=== PATIENT | female | born 1955 | race Caucasian/White ===

== ENCOUNTER 2016-07-31 17:03 | Inpatient (IN) | payer OTHER ==
[2016-07-31 17:09] VITALS: BMI 28.3
[2016-07-31] MEDS ORDERED: ALBUTEROL SO4 2.5/IPRATROPIUM 0.5 INH SOL 3 ML VIAL.NEB. NEB ONE ×2 (17:13→17:45)
--- NOTE | 2016-07-31 17:16 | PDOC ---
History of Present Illness - General History Source: Patient - History of Present Illness Initial Comments: 07/31/16 18:57 The patient is a 61 year old female with a significant past medical history of HTN, HLD, COPD, ASHD s/p [place], PVD, HBP, who presents to the Emergency Department with complaints of increased SOB since yesterday. She reports experiencing worsening productive cough since yesterday. She reports chest pain secondary to cough. She states that she received 5 nebulizer treatments today without significant improvement. Pt reports 102 fever last night. She denies abdominal pain, nausea, vomiting, diarrhea, dysuria, hematuria, headache, dizziness. (+)sick contact: Senior Analytic Consultant : Dr. Berrios PCP: Dr. Casi Cohn <Filomena Kelly - Last Filed: 07/31/16 18:57> <Dalton Holden - Last Filed: 08/03/16 11:09> - General Chief Complaint: Shortness of Breath Stated Complaint: SOB Time Seen by Provider: 07/31/16 17:15 Past History <Filomena Kelly - Last Filed: 07/31/16 18:57> - Past Medical History Anemia: No Asthma: Yes Cardiac Disorders: Yes (MS X 2) COPD: Yes GI Disorders: Yes (HERNIA) HTN: Yes Hypercholesterolemia: Yes - Surgical History Abdominal Surgery: Yes Cardiac Surgery: Yes (Angioplasty, Carotid Artery) Cholecystectomy: Yes - Immunization History Immunization Up to Date: Yes (no flu or pna) - Psycho/Social/Smoking Cessation Hx Anxiety: No Suicidal Ideation: No Smoking Status: Yes Smoking History: Former smoker Have you smoked in the past 12 months: Yes Number of Cigarettes Smoked Daily: 10 If you are a former smoker, when did you quit?: 1 week ago Information on smoking cessation initiated: No 'Breaking Loose' booklet given: 12/20/12 Hx Alcohol Use: No Drug/Substance Use Hx: No Substance Use Type: None Hx Substance Use Treatment: No <Dalton Holden - Last Filed: 08/03/16 11:09> - Past Medical History Allergies/Adverse Reactions: Allergies Allergy/AdvReac Type Severity Reaction Status Date / Time No Known Drug Allergies Allergy Verified 07/31/16 17:03 Home Medications: Ambulatory Orders Albuterol 2.5/Ipratropium 0.5 [Duoneb -] 1 neb NEB Q4H PRN #0 vial 12/27/12 Aspirin [ASA -] 81 mg PO DAILY #0 tab.chew 12/27/12 Atorvastatin Calcium [Lipitor] 80 mg PO HS #0 tablet 12/27/12 Clopidogrel Bisulfate [Plavix -] 75 mg PO DAILY #0 tablet 12/27/12 Folic Acid - 1 mg PO DAILY #0 tablet 12/27/12 Furosemide [Lasix -] 20 mg PO DAILY #0 tablet 12/27/12 Isosorbide Mononitrate [Imdur] 30 mg PO BID #0 tab.sr.24h 12/27/12 Montelukast Na [Singulair -] 10 mg PO HS #0 tablet 12/27/12 Ranitidine [Zantac -] 150 mg PO DAILY #0 tablet 12/27/12 Tiotropium [place] [Spiriva] 1 inh IH DAILY #0 inh 12/27/12 Verapamil HCl ER [Calan Sr -] 180 mg PO BID #0 tablet.er 12/27/12 Fluticasone Prop 0.05% Nasal [Flonase -] 1 - 2 spray NS BID #1 spray.pump Acetaminophen [Tylenol .Regular Strength -] 650 mg PO Q6H PRN #0 tablet Mag Hydrox/Al Hydrox/Simeth [Mylanta Oral Suspension -] 30 ml PO Q6H PRN #0 cup 04/16/15 Sodium Chloride Nasal [place] [[place] Nasal [place] -] 2 spray NS Q2H PRN #0 bottle 04/16/15 Nystatin Oral Suspension - [Nystatin Oral Susp 560861 Units/5 ML -] 500,000 units PO Q6HPO 14 Days 04/17/15 Review of Systems - Review of Systems Able to Perform ROS?: Yes Comments:: 07/31/16 18:58 CONSTITUTIONAL: No reported: Fever, Chills, Diaphoresis, Generalized Weakness, Malaise, Loss of Appetite HEENT: No reported: Rhinorrhea, Nasal Congestion, Throat Pain, Throat Swelling, Difficulty Swallowing, Mouth Swelling, Ear Pain, Eye Pain, Visual Changes CARDIOVASCULAR: Yes: chest pain No reported: Syncope, Palpitations, Irregular Heart Rate, Lightheadedness, Peripheral Edema RESPIRATORY: Yes: cough, SOB No reported:Wheezing, Stridor, Hemoptysis GASTROINTESTINAL: No reported: Abdominal pain, Abdominal Distension, Nausea, Vomiting, Diarrhea, Constipation, Melena, Hematochezia GENITOURINARY: No reported: Dysuria, Frequency, Urgency, Hesitancy, Flank Pain, Genital Pain MUSCULOSKELETAL: No reported: Myalgia, Arthralgia, Joint Swelling, Back pain, Neck Pain SKIN: No reported: Rash, Itching, Pallor HEMEATOLOGIC/IMMUNOLOGIC: No reported: Easy Bleeding, Easy Bruising, Lymphadenopathy, Frequent infections ENDOCRINE: No reported: Unexplained Weight Gain, Unexplained Weight Loss, Heat Intolerance , Cold Intolerance NEUROLOGIC: No reported: Headache, Focal Weakness, Paresthesias, Vertigo, Lightheadedness, Unsteady Gait, Seizure, Mental Status Changes, Incontinence PSYCHIATRIC: No reported: Anxiety, Depression All Other Systems: Reviewed and Negative <Filomena Kelly - Last Filed: 07/31/16 18:57> *Physical Exam - Vital Signs Last Vital Signs Temp Pulse Resp BP Pulse Ox 99 F 117 H 28 H 127/77 94 L 07/31/16 17:05 07/31/16 17:05 07/31/16 17:05 07/31/16 17:05 07/31/16 17:05 - Physical Exam Comments: 07/31/16 18:58 GENERAL: The patient is awake, alert, and fully oriented, Nontoxic - in no acute distress. HEAD: Normocephalic, atraumatic. EYES: extraocular movements intact, sclera anicteric, conjunctiva clear. ENT: +nasal congestion, normal voice, Moist mucous membranes. NECK: Normal range of motion, supple LUNGS: diffuse wheezing, moderately decreased air movement, mildly tachypneic, HEART: tachycardic, ABDOMEN: Soft, nontender, normoactive bowel sounds. No guarding, no rebound. No CVA tenderness EXTREMITIES: Normal range of motion, no edema. No clubbing or cyanosis. No cords, erythema, or tenderness. NEUROLOGICAL: No facial assymetry, Normal speech, PSYCH: Normal mood, normal affect. SKIN: Warm, Dry, normal turgor, <Filomena Kelly - Last Filed: 07/31/16 18:57> - Vital Signs Last Vital Signs Temp Pulse Resp BP Pulse Ox 99 F 117 H 28 H 127/77 94 L 07/31/16 17:05 07/31/16 17:05 07/31/16 17:05 07/31/16 17:05 07/31/16 17:05 <Dalton Holden - Last Filed: 08/03/16 11:09> Heart Score/ECG Review - ECG Impressions Comment:: 07/31/16 19:23 Twelve-lead EKG was performed and reviewed by me. There is normal sinus rhythm with a normal rate. Rate of 102 CA interval of 212 - first degree AV block Nonspecific ST wave changes Impression: Sinus tachycardia <Dalton Holden - Last Filed: 08/03/16 11:09> ED Treatment Course - LABORATORY CBC & Chemistry Diagram: 07/31/16 18:23 07/31/16 18:23 - ADDITIONAL ORDERS Additional order review: 07/31/16 18:23 RBC 4.91 MCV 85.2 MCHC 33.0 RDW 15.9 H D MPV 7.1 L Neutrophils % 83.0 H Lymphocytes % 8.6 D Monocytes % 7.2 D Eosinophils % 0.7 D Basophils % 0.5 - Medications Given in the ED: ED Medications Discontinued Medications Generic Name Dose Route Start Last Admin Trade Name Freq PRN Reason Stop Dose Admin Albuterol/Ipratropium 1 amp 07/31/16 17:13 07/31/16 17:13 Duoneb - NEB 07/31/16 17:14 1 amp NOW ONE Administration Albuterol/Ipratropium 1 amp 07/31/16 17:45 07/31/16 18:42 Duoneb - NEB 07/31/16 17:46 1 amp ONCE ONE Administration Magnesium Sulfate 2 gm 07/31/16 17:45 07/31/16 18:42 Magnesium Sulfate IVPB 07/31/16 17:46 2 gm ONCE ONE Administration Methylprednisolone Sodium Succinate 125 mg 07/31/16 17:45 07/31/16 18:42 Solu-Medrol - IVPB 07/31/16 17:46 125 mg ONCE ONE Administration <Filomena Kelly - Last Filed: 07/31/16 18:57> - LABORATORY CBC & Chemistry Diagram: 08/03/16 06:00 08/03/16 06:00 - Medications Given in the ED: ED Medications Discontinued Medications Generic Name Dose Route Start Last Admin Trade Name Freq PRN Reason Stop Dose Admin Albuterol/Ipratropium 1 amp 07/31/16 17:13 07/31/16 17:13 Duoneb - NEB 07/31/16 17:14 1 amp NOW ONE Administration <Dalton Holden - Last Filed: 08/03/16 11:09> Medical Decision Making - Medical Decision Making 07/31/16 17:47 61y F hx of copd, mi, htn, hl, presents with cough/sob x 2 days associated with nasal congestion, using nebs at home w/o improvement, asl onoted fever to 102.+ sick contacts - on exam the pt is tachypneic, hypoxic to 90% with mild wheezing. suspect possible influenza/uri/viral syndrom exacerbating copd will ck labs, influenza, cxr will give nebs, steroids, mag will reasssess A portion of this note was documented by scribe services under my direction. I have reviewed the details of the note, within reason, and agree with the documentation with the following case summary and management plan written by me 07/31/16 19:33 The patient's blood work was reviewed No leukocytosis noted chest x-ray is negative for acute infection Awaiting influenza The patient appears to be more comfortable. Will admit the patient for further management of COPD exacerbation Will admit to Dr. Gama's service 07/31/16 19:45 Case d/w dr. cohn agreed with admission for further management. awaiting finfluenza swab stable for med surg Case discussed in detail with admitting physician including history, physical exam and ancillary studies. Admitting physician has assumed care for the patient, will follow all pending diagnostics and will complete the evaluation and treatment. CRITICAL CARE DOCUMENTATION: I spent ~35 minutes of Critical Care time, excluding separately billable procedures, involving high complexity decision making to assess, manipulate and support vital system function(s) to treat single or multiple vital organ system failure and/or to prevent further life threatening deterioration of the patient' s condition. <Dalton Holden - Last Filed: 08/03/16 11:09> *DC/Admit/Observation/Transfer - Attestations Scribe Attestion: 07/31/16 18:58 Documentation prepared by Filomena Kelly, acting as medical education manager for Dalton Holden MD. <Filomena Kelly - Last Filed: 07/31/16 18:57> - Discharge Dispostion Admit: Yes <Dalton Holden - Last Filed: 08/03/16 11:09> Diagnosis at time of Disposition: COPD exacerbation, Hypoxia - Discharge Dispostion Condition at time of disposition: Guarded - Referrals
[2016-07-31] MEDS ORDERED: MAGNESIUM SULF 50% (8.12 MEQ/2 ML-1 GM VIAL) IVPB ONE (17:45)
[2016-07-31] MEDS ORDERED: methylPREDNISolone NA SUCC 125 MG/2 ML VIAL IVPB ONE (17:45)
[2016-07-31] MEDS ORDERED: MAGNESIUM SULF 50% (8.12 MEQ/2 ML-1 GM VIAL) ONE (18:29)
[2016-07-31] MEDS ORDERED: methylPREDNISolone NA SUCC 125 MG/2 ML VIAL ONE (18:29)
[2016-07-31 18:39] LABS: BASOPHIL 0.5 % (0-2.0); EOSINOPHIL 0.7 % (0-4.5); MCH 28.1 pg (25.7-33.7); MEAN CELL VOLUME 85.2 fl (80-96); MEAN PLT VOLUME 7.1 fl (7.5-11.1); PLATELET COUNT 319 K/MM3 (134-434); RDW 15.9 % (11.6-15.6); WHITE BLOOD COUNT 8.4 K/mm3 (4.0-10.0)
[2016-07-31 19:04] LABS: ALBUMIN 4.4 g/dl (3.4-5.0); ALK PHOS 153 U/L (45-117); ANION GAP 11 (8-16); BILIRUBIN,TOTAL 0.5 mg/dL (0.2-1.0); CO2 32 mmol/L (21-32); CREATININE 0.7 mg/dL (0.55-1.02); GLUCOSE,RANDOM 94 mg/dL (74-106); SGPT/ALT 26 U/L (12-78); TOT PROT 8.2 g/dl (6.4-8.2)
[2016-07-31 19:29] LABS: SGOT/AST 26 U/L (15-37)
[2016-07-31] MEDS ORDERED: AZITHROMYCIN IVPB 500 MG in DEXTROSE 5%-WATER - 250 ML IVPB ONE (19:45)
[2016-07-31] MEDS ORDERED: POTASSIUM CHLORIDE TABS 20 MEQ TABLET.ER (FP) PO ONE ×2 (20:40→21:09)
[2016-07-31] MEDS ORDERED: AZITHROMYCIN IVPB 250 ML IVPB ONE (21:09)
[2016-07-31] MEDS ORDERED: RACEPINEPHRINE IH SOL 2.25% 11.25 MG/0.5 ML VIAL IH ONE (21:09)
[2016-07-31] MEDS ORDERED: SODIUM CHLORIDE FOR INHALATION 3 ML VIAL.NEB IH ONE (21:10)
[2016-07-31] MEDS ORDERED: RACEPINEPHRINE IH SOL 2.25% 11.25 MG/0.5 ML VIAL NEB ONE (21:18)
[2016-07-31] MEDS ORDERED: ACETAMINOPHEN 325 MG TABLET (FP) PO PRN (23:55)
[2016-07-31] MEDS ORDERED: SODIUM CHLORIDE NASAL SPRAY 44 ML BOTTLE NS PRN (23:56)
[2016-08-01] MEDS: ALBUTEROL SO4 0.083% IH SOL 2.5 MG/3 ML VIAL.NEB. NEB PRN ×3 (01:00→19:42)
[2016-08-01] MEDS: MONTELUKAST NA 10 MG TABLET PO SCH ×2 (01:13→22:19)
[2016-08-01] MEDS: ATORVASTATIN CA 80 MG TABLET (FP) PO SCH ×2 (01:13→22:19)
[2016-08-01] MEDS: ISOSORBIDE MONONITRATE 30 MG TAB.SR.24H (FP) PO SCH ×3 (01:14→22:19)
[2016-08-01] MEDS: VERAPAMIL HCL 180 MG E.R. TABLET (FP) PO SCH ×2 (01:24→09:35)
[2016-08-01] MEDS: methylPREDNISolone NA SUCC 40 MG/1 ML VIAL IVPB SCH ×4 (03:00→21:20)
[2016-08-01] MEDS ORDERED: PT OWN MED DRAWER 7, Y5N ONE ×4 (06:17→14:19)
[2016-08-01 07:45] LABS: BASOPHIL 0.4 % (0-2.0); EOSINOPHIL 0.1 % (0-4.5); MCH 28.9 pg (25.7-33.7); MCHC 33.8 g/dl (32.0-36.0); MEAN CELL VOLUME 85.5 fl (80-96); MEAN PLT VOLUME 7.4 fl (7.5-11.1); NEUTROPHILS 90.9 % (42.8-82.8); RDW 15.7 % (11.6-15.6)
[2016-08-01 08:07] LABS: ALBUMIN 3.5 g/dl (3.4-5.0); ALK PHOS 116 U/L (45-117); ANION GAP 6 (8-16); BILIRUBIN,TOTAL 0.3 mg/dL (0.2-1.0); CALCIUM 8.9 mg/dL (8.5-10.1); CO2 29 mmol/L (21-32); CREATININE 0.6 mg/dL (0.55-1.02); GLUCOSE,RANDOM 145 mg/dL (74-106); SGPT/ALT 23 U/L (12-78); TOT PROT 6.5 g/dl (6.4-8.2)
[2016-08-01] MEDS ORDERED: INFLUENZA VACCINE 45 MCG/0.5 ML (MDV 16-17) IM ONE (09:00)
[2016-08-01 09:10] LABS: SGOT/AST 24 U/L (15-37)
[2016-08-01] MEDS: ASPIRIN 81 MG CHEWABLE TABLETS PO SCH (09:34)
[2016-08-01] MEDS: ACLIDINIUM BROMIDE 400 MCG/INH AERO.POWD IH SCH ×2 (09:35→22:21)
[2016-08-01] MEDS: CLOPIDOGREL BISULFATE 75 MG TABLET (FP) PO SCH (09:35)
[2016-08-01] MEDS: HEPARIN NA (PORCINE) 5,000 UNITS/ML 1ML VIAL SQ SCH ×2 (09:35→22:21)
[2016-08-01] MEDS: FOLIC ACID 1 MG TABLET (FP) PO SCH (09:35)
[2016-08-01] MEDS: FUROSEMIDE 20 MG TABLET (FP) PO SCH (09:35)
[2016-08-01] MEDS: AZITHROMYCIN IVPB 250 ML IVPB SCH (09:36)
[2016-08-01] MEDS ORDERED: VERAPAMIL HCL 180 MG E.R. TABLET (FP) PO SCH (10:00)
[2016-08-01] MEDS ORDERED: RANITIDINE HCL 150 MG TABLET (FP) PO SCH (10:00)
[2016-08-01] MEDS ORDERED: ISOSORBIDE MONONITRATE 30 MG TAB.SR.24H (FP) PO SCH ×2 (10:00)
--- NOTE | 2016-08-01 10:29 | EKG ---
Test Reason : Blood Pressure : / mmHG Vent. Rate : 102 BPM Atrial Rate : 102 BPM P-R Int : 214 ms QRS Dur : 086 ms QT Int : 356 ms P-R-T Axes : 070 060 031 degrees QTc Int : 463 ms POOR DATA QUALITY, INTERPRETATION MAY BE ADVERSELY AFFECTED SINUS TACHYCARDIA WITH 1ST DEGREE A-V BLOCK POSSIBLE LEFT ATRIAL ENLARGEMENT CANNOT RULE OUT INFERIOR INFARCT , AGE UNDETERMINED ABNORMAL ECG WHEN COMPARED WITH ECG OF 09-APR-2015 16:25, NM INTERVAL HAS INCREASED NONSPECIFIC T WAVE ABNORMALITY NOW EVIDENT IN INFERIOR LEADS NONSPECIFIC T WAVE ABNORMALITY, WORSE IN ANTEROLATERAL LEADS Confirmed by LAINE SEWELL MD ([id number]) on 08/01/2016 10:29:17 AM Referred By: Confirmed By:LAINE SEWELL MD
[2016-08-01 11:51] LABS: PLATELET COMMENT2 NO CLOTTING DETECTED; PLATELET COUNT 251 K/MM3 (134-434); PLATELET ESTIMATE ADEQUATE (NORMAL)
[2016-08-01] MEDS: CEFTRIAXONE 50 ML IVPB SCH (12:38)
--- NOTE | 2016-08-01 19:05 | HP ---
Admitting History and Physical - Primary Care Physician PCP: Casi Cohn S - Admission Chief Complaint: SOB cough History of Present Illness: The patient is a 61 year old female with a significant past medical history of HTN, HLD, COPD, ASHD s/p [place], PVD, HBP, who presents to the Emergency Department with complaints of increased SOB since yesterday. She reports experiencing worsening productive cough since yesterday. She reports chest pain secondary to cough. She states that she received 5 nebulizer treatment without significant improvement. Pt reports 102 fever before admission. She denies abdominal pain, nausea, vomiting, diarrhea, dysuria, hematuria, headache, dizziness. h/o heavy smoking said she stopped recently h/o noncompliance with visits and tests, did not see cardiology or other specialists in a long time. no flu shot done. History Source: Patient, Medical Record Limitations to Obtaining History: No Limitations - Past Medical History Cardiovascular: Yes: CAD, HTN, Other (carotid ds) Pulmonary: Yes: COPD Gastrointestinal: Yes: Other (Mesenteric ischemia treated with SMA bypass 3 years ago.) Psych: Yes: Anxiety, Depression - Past Surgical History Past Surgical History: Yes: Carotid Endarterectomy - Smoking History Smoking history: Former smoker Have you smoked in the past 12 months: Yes Aproximately how many cigarettes per day: 10 If you are a former smoker, when did you quit?: 1 week ago - Alcohol/Substance Use Hx Alcohol Use: No History of Substance Use: reports: None - Social History Usual Living Arrangement: Yes: With Spouse ADL: Independent History of Recent Travel: No Home Medications - Allergies Allergies/Adverse Reactions: Allergies Allergy/AdvReac Type Severity Reaction Status Date / Time No Known Drug Allergies Allergy Verified 07/31/16 17:03 - Home Medications Home Medications: Ambulatory Orders Albuterol 2.5/Ipratropium 0.5 [Duoneb -] 1 neb NEB Q4H PRN #0 vial 12/27/12 Aspirin [ASA -] 81 mg PO DAILY #0 tab.chew 12/27/12 Atorvastatin Calcium [Lipitor] 80 mg PO HS #0 tablet 12/27/12 Clopidogrel Bisulfate [Plavix -] 75 mg PO DAILY #0 tablet 12/27/12 Folic Acid - 1 mg PO DAILY #0 tablet 12/27/12 Furosemide [Lasix -] 20 mg PO DAILY #0 tablet 12/27/12 Isosorbide Mononitrate [Imdur] 30 mg PO BID #0 tab.sr.24h 12/27/12 Montelukast Na [Singulair -] 10 mg PO HS #0 tablet 12/27/12 Ranitidine [Zantac -] 150 mg PO DAILY #0 tablet 12/27/12 Tiotropium [place] [Spiriva] 1 inh IH DAILY #0 inh 12/27/12 Verapamil HCl ER [Calan Sr -] 180 mg PO BID #0 tablet.er 12/27/12 Fluticasone Prop 0.05% Nasal [Flonase -] 1 - 2 spray NS BID #1 spray.pump Acetaminophen [Tylenol .Regular Strength -] 650 mg PO Q6H PRN #0 tablet Mag Hydrox/Al Hydrox/Simeth [Mylanta Oral Suspension -] 30 ml PO Q6H PRN #0 cup 04/16/15 Sodium Chloride Nasal [place] [[place] Nasal [place] -] 2 spray NS Q2H PRN #0 bottle 04/16/15 Nystatin Oral Suspension - [Nystatin Oral Susp 650530 Units/5 ML -] 500,000 units PO Q6HPO 14 Days 04/17/15 Family Disease History - Family Disease History Family Disease History: Heart Disease: Father, Mother, Brother Review of Systems - Review of Systems Constitutional: denies: Chills, Fever Eyes: denies: Blind Spots, Blurred Vision, Double Vision HENT: denies: Difficult Swallowing, Ear Pain Neck: denies: Stiffness, Tenderness Cardiovascular: reports: Shortness of Breath. denies: Chest Pain, Edema, Palpitations Respiratory: reports: Cough, Exercise Intolerance, SOB, SOB on Exertion, Wheezing. denies: Hemoptysis, Orthopnea, PND, Snoring Gastrointestinal: denies: Abdominal Pain, Bloating, Constipation, Diarrhea, Vomiting Genitourinary: denies: Burning, Discharge, Dysuria, Flank Pain Musculoskeletal: denies: Back Pain, Joint Pain, Joint Swelling Neurological: denies: Change in LOC, Change in Speech, Confusion, Seizure, Syncope, Tremors, Unsteady Gait Endocrine: denies: Excessive Sweating, Flushing Hematology/Lymphatic: denies: Easily Bruised, Excessive Bleeding Psychiatric: denies: Altered Sleep Pattern, Anxiety, Depression, Suicidal Physical Examination Vital Signs: Vital Signs Temperature 98.9 F 08/01/16 16:15 Pulse Rate 73 08/01/16 16:15 Respiratory Rate 20 08/01/16 16:15 Blood Pressure 106/76 08/01/16 16:15 O2 Sat by Pulse Oximetry (%) 95 08/01/16 10:10 Constitutional: Yes: No Distress, Calm Eyes: Yes: Conjunctiva Clear HENT: Yes: Atraumatic, Other (poor dentition) Neck: Yes: Other (s/p carotid endarterectomy) Cardiovascular: Yes: Regular Rate and Rhythm Respiratory: Yes: Rales, Wheezes (I/E bilateral) Gastrointestinal: Yes: Soft, Hernia (L flank s/p surgery old). No: Distention, Tenderness Renal/: No: CVA Tenderness - Left, CVA Tenderness - Right Musculoskeletal: No: Joint Stiffness, Joint Swelling Extremities: No: Cold, Cool, Cyanosis Edema: No Peripheral Pulses WNL: Yes Integumentary: No: Bruising, Petechiae, Pressure Ulcer, Rash, Skin Tear, Venous Stasis Changes Neurological: Yes: WNL, Alert, Oriented ...Motor Strength: WNL Psychiatric: Yes: WNL, Alert, Oriented. No: Agitated, Suicidal Ideation Labs: CBC, BMP 08/01/16 06:00 08/01/16 06:00 Imaging - Results Chest X-ray: Report Reviewed Other: Report Reviewed Assessment/Plan The patient is a 61 year old female with a significant past medical history of HTN, HLD, COPD, ASHD s/p [place], PVD, HBP, who presents to the Emergency Department with complaints of increased SOB and worsening productive cough since yesterday. She reports chest pain secondary to cough. She states that she received 5 nebulizer treatments without significant improvement. Pt reports 102 fever before admission. COPD exacerbation; URI vs PNA, h/o lung nodules h/o carotid ds and HTN diastolic CHF h/o heavy smoking and nonc/w visits and tests did not have flu shot; to have it here admit in INPT IV steroids, IV ATB cardio and pulm eval chest CT carotids US and echo strongly advised no smoking DVT falls PFX prognosis guarded advised to be c/w visits and tests d/w pt and staff t time 80 min
[2016-08-01] MEDS ORDERED: MONTELUKAST NA 10 MG TABLET PO SCH (22:00)
[2016-08-01] MEDS ORDERED: ATORVASTATIN CA 80 MG TABLET (FP) PO SCH (22:00)
[2016-08-01] MEDS: VERAPAMIL HCL 240 MG E.R. TABLET (FP) PO SCH (22:17)
[2016-08-01] MEDS: RANITIDINE HCL 150 MG TABLET (FP) PO SCH (22:20)
[2016-08-02] MEDS: NYSTATIN 500,000 UNITS/5 ML SUSPENSION PO SCH ×4 (00:44→17:32)
[2016-08-02] MEDS: methylPREDNISolone NA SUCC 40 MG/1 ML VIAL IVPB SCH ×4 (02:56→20:53)
[2016-08-02] MEDS: ALBUTEROL SO4 0.083% IH SOL 2.5 MG/3 ML VIAL.NEB. NEB PRN ×2 (04:35→10:25)
[2016-08-02 07:34] LABS: BASOPHIL 0.1 % (0-2.0); MCH 28.5 pg (25.7-33.7); MCHC 33.2 g/dl (32.0-36.0); MEAN CELL VOLUME 85.7 fl (80-96); MEAN PLT VOLUME 6.9 fl (7.5-11.1); NEUTROPHILS 93.2 % (42.8-82.8); PLATELET COUNT 275 K/MM3 (134-434); WHITE BLOOD COUNT 13.9 K/mm3 (4.0-10.0)
[2016-08-02 07:54] LABS: ALBUMIN 3.3 g/dl (3.4-5.0); ANION GAP 7 (8-16); CALCIUM 8.5 mg/dL (8.5-10.1); CHOLESTEROL 162 mg/dL (50-200); CO2 31 mmol/L (21-32); CREATININE 0.7 mg/dL (0.55-1.02); GLUCOSE,RANDOM 178 mg/dL (74-106); MAGNESIUM 2.5 mg/dL (1.8-2.4); SGOT/AST 12 U/L (15-37); SGPT/ALT 20 U/L (12-78)
[2016-08-02 08:02] LABS: ALK PHOS 102 U/L (45-117); BILIRUBIN,TOTAL 0.2 mg/dL (0.2-1.0); LDL CHOLESTEROL (ONLY SJRH) 76 mg/dL (5-100); THYROID STIMULATING HORMONE 0.04 uIU/ml (0.358-3.74); TOT PROT 6.1 g/dl (6.4-8.2)
[2016-08-02] MEDS: ASPIRIN 81 MG CHEWABLE TABLETS PO SCH (09:29)
[2016-08-02] MEDS: ACLIDINIUM BROMIDE 400 MCG/INH AERO.POWD IH SCH ×2 (09:30→21:52)
[2016-08-02] MEDS: FOLIC ACID 1 MG TABLET (FP) PO SCH (09:30)
[2016-08-02] MEDS: CLOPIDOGREL BISULFATE 75 MG TABLET (FP) PO SCH (09:30)
[2016-08-02] MEDS: HEPARIN NA (PORCINE) 5,000 UNITS/ML 1ML VIAL SQ SCH ×2 (09:30→21:53)
[2016-08-02] MEDS: RANITIDINE HCL 150 MG TABLET (FP) PO SCH ×2 (09:30→21:52)
[2016-08-02] MEDS: AZITHROMYCIN IVPB 250 ML IVPB SCH (09:31)
[2016-08-02] MEDS: CEFTRIAXONE 50 ML IVPB SCH (11:17)
[2016-08-02] MEDS: ISOSORBIDE MONONITRATE 30 MG TAB.SR.24H (FP) PO SCH ×2 (11:23→21:45)
[2016-08-02] MEDS: VERAPAMIL HCL 240 MG E.R. TABLET (FP) PO SCH ×2 (11:23→21:51)
[2016-08-02] MEDS: FUROSEMIDE 20 MG TABLET (FP) PO SCH (11:23)
--- NOTE | 2016-08-02 13:11 | PN ---
Progress Note (short form) - Note Progress Note: CT Chest reviewed. No change in 0.5 mm pulmonary nodule RLL and 2-3 mm nodules LLL. New RML consolidation and atelectasis. Full consult to follow.
--- NOTE | 2016-08-02 13:19 | PN ---
Progress Note (short form) - Note Progress Note: Chief Complaint: Events noted notes reviewed, chest pain syndrome with increasing dyspnea History of Present Illness: Seen and examined in the ER as a telemetry hold. Full consult dictated Medications: Current Medications Acetaminophen (Tylenol -) 650 mg PO Q6H PRN PRN Reason: FEVER OR PAIN Aclidinium [place] ([place] -) 1 puff IH BID [facility] Last Admin: 08/02/16 09:30 Dose: 1 puff Al Hydroxide/Mg Hydroxide (Mylanta Oral Suspension -) 30 ml PO Q6H PRN PRN Reason: DYSPEPSIA Albuterol Sulfate (Ventolin 0.083% Nebulizer Soln -) 1 amp NEB Q6H PRN PRN Reason: SHORT OF BREATH/WHEEZING Last Admin: 08/02/16 10:25 Dose: 1 amp Aspirin (Asa -) 81 mg PO DAILY [facility] Last Admin: 08/02/16 09:29 Dose: 81 mg Atorvastatin Calcium (Lipitor -) 80 mg PO HS [facility] Last Admin: 08/01/16 22:19 Dose: 80 mg Clopidogrel Bisulfate (Plavix -) 75 mg PO DAILY [facility] Last Admin: 08/02/16 09:30 Dose: 75 mg Folic Acid (Folic Acid -) 1 mg PO DAILY [facility] Last Admin: 08/02/16 09:30 Dose: 1 mg Furosemide (Lasix -) 20 mg PO DAILY [facility] Last Admin: 08/02/16 11:23 Dose: 20 mg Heparin Sodium (Porcine) (Heparin -) 5,000 unit SQ BID [facility] Last Admin: 08/02/16 09:30 Dose: 5,000 unit Ceftriaxone Sodium (Rocephin 1gm Ivpb (Pre-Docked)) 50 mls @ 100 mls/hr IVPB DAILY [facility] Last Admin: 08/02/16 11:17 Dose: 100 mls/hr Azithromycin (Zithromax 500mg Ivpb (Pre-Docked)) 250 mls @ 250 mls/hr IVPB DAILY [facility] Last Admin: 08/02/16 09:31 Dose: 250 mls/hr Isosorbide Mononitrate (Imdur -) 30 mg PO BID [facility] Last Admin: 08/02/16 11:23 Dose: 30 mg Methylprednisolone Sodium Succinate (Solu-Medrol -) 40 mg IVPB Q6H-IV [facility] Last Admin: 08/02/16 08:59 Dose: 40 mg Montelukast Sodium (Singulair -) 10 mg PO HS [facility] Last Admin: 08/01/16 22:19 Dose: 10 mg Nystatin (Nystatin Oral Suspension -) 500,000 units PO Q6HPO [facility] Last Admin: 08/02/16 06:10 Dose: Not Given Ranitidine HCl (Zantac -) 150 mg PO BID [facility] Last Admin: 08/02/16 09:30 Dose: 150 mg Sodium Chloride ([place] Nasal [place] -) 2 spray NS Q2H PRN PRN Reason: NASAL CONGESTION Verapamil HCl (Calan Sr -) 240 mg PO BID [facility] Last Admin: 08/02/16 11:23 Dose: 240 mg Review of Systems - Review of Systems Constitutional: No symptoms reported Respiratory: reports: Cough and Sputum Production Cardiovascular: As noted above Gastrointestinal: denies Nausea, Vomiting, Diarrhea, Constipation or Abdominal Pain Genitourinary: No symptoms reported Musculoskeletal: No symptoms reported Endocrine: No symptoms reported Vital Signs: Last Vital Signs Temp Pulse Resp BP Pulse Ox 98.4 F 74 20 114/46 96 08/02/16 08:48 08/02/16 11:22 08/02/16 11:22 08/02/16 11:22 08/02/16 10:25 Constitutional: No Distress Neck: Supple Negative JVD No Bruit Respiratory: Distant Breath Sounds with Bilateral Scattered Rhonchi Cardiovascular: S1 S2 Regular Rate and Rhythm [place] 1-2/6 ELADIA Gastrointestinal: Soft Benign Normal Bowel Sounds Ext: Trace Edema Labs: Troponin, BNP 08/02/16 06:00 B-Natriuretic Peptide 1221.89 H CBC, BMP 08/02/16 06:00 08/02/16 06:00 Hepatic Panel Total Bilirubin 0.2 mg/dL (0.2-1.0) D 08/02/16 06:00 AST 12 U/L (15-37) L D 08/02/16 06:00 ALT 20 U/L (12-78) 08/02/16 06:00 Alkaline Phosphatase 102 U/L (45-117) 08/02/16 06:00 Albumin 3.3 g/dl (3.4-5.0) L 08/02/16 06:00 Assessment/Plan ASSESSMENT: 1. Chest pain syndrome in a patient with known history of CAD post NC angina pectoris 2. Dyspnea consistent with acute exacerbation of COPD, probable pneumonia 3. Chronic diastolic LV dysfunction with class I-II NYHA classification LV failure, probably euvolemic 4. HTN 5. Hypercholesterolemia 6. History of carotid stenosis post end-arterectomy 7. Mesenteric ischemia post intervention 8. PAD post intervention PLAN: 1. Continue Verapamil SR 2. Continue Imdur but ideally dosing should be changed to 60 mg daily, patient is reluctant to do so 3. Add Ranexa with caution 4. Ideally patient should be on ACEI or ARBS, unless it is contraindicated 5. Continue Lipitor 6. Continue Lasix 7. Continue ASA and Plavix 8. Echocardiography for evaluation of LV systolic function Will obtain additional information from Dr. Luis Eduardo Manning, patient's household appliance mechanic who was contacted Iva Strange M.D.
--- NOTE | 2016-08-02 14:26 | CONSULT ---
Consult Consult Specialty:: Pulmonary Reason for Consultation:: Dyspnea - History of Present Illness History of Present Illness: 61 year old lady with long history of COPD, ASHD S/P [place], PVD, HBP, H/O left iliac to superior mesenteric bypass, developed cough , fever to 100.3 and increased dyspnea and sputum production 3 days ago. She also has had some chest pressure. No hemopytsis. Pt's last Prednisone prior to this admission was three months ago. Previous Ct scans have showed lung nodules. Pt still smokes. - History Source History Provided By: Patient, Medical Record Limitations to Obtaining History: No Limitations - Past Medical History Cardio/Vascular: Yes: CAD, HTN, Other (carotid ds) Pulmonary: Yes: COPD Gastrointestinal: Yes: Other (Mesenteric ischemia treated with SMA bypass 3 years ago.) Psych: Yes: Anxiety, Depression - Past Surgical History Past Surgical History: Yes: Carotid Endarterectomy - Alcohol/Substance Use Hx Alcohol Use: No History of Substance Use: reports: None - Smoking History Smoking history: Former smoker Have you smoked in the past 12 months: Yes Aproximately how many cigarettes per day: 10 If you are a former smoker, when did you quit?: 1 week ago - Social History ADL: Independent History of Recent Travel: No Home Medications - Allergies Allergies/Adverse Reactions: Allergies Allergy/AdvReac Type Severity Reaction Status Date / Time No Known Drug Allergies Allergy Verified 07/31/16 17:03 - Home Medications Home Medications: Ambulatory Orders Albuterol 2.5/Ipratropium 0.5 [Duoneb -] 1 neb NEB Q4H PRN #0 vial 12/27/12 Aspirin [ASA -] 81 mg PO DAILY #0 tab.chew 12/27/12 Atorvastatin Calcium [Lipitor] 80 mg PO HS #0 tablet 12/27/12 Clopidogrel Bisulfate [Plavix -] 75 mg PO DAILY #0 tablet 12/27/12 Folic Acid - 1 mg PO DAILY #0 tablet 12/27/12 Furosemide [Lasix -] 20 mg PO DAILY #0 tablet 12/27/12 Isosorbide Mononitrate [Imdur] 30 mg PO BID #0 tab.sr.24h 12/27/12 Montelukast Na [Singulair -] 10 mg PO HS #0 tablet 12/27/12 Ranitidine [Zantac -] 150 mg PO DAILY #0 tablet 12/27/12 Tiotropium [place] [Spiriva] 1 inh IH DAILY #0 inh 12/27/12 Verapamil HCl ER [Calan Sr -] 180 mg PO BID #0 tablet.er 12/27/12 Fluticasone Prop 0.05% Nasal [Flonase -] 1 - 2 spray NS BID #1 spray.pump Acetaminophen [Tylenol .Regular Strength -] 650 mg PO Q6H PRN #0 tablet Mag Hydrox/Al Hydrox/Simeth [Mylanta Oral Suspension -] 30 ml PO Q6H PRN #0 cup 04/16/15 Sodium Chloride Nasal [place] [[place] Nasal [place] -] 2 spray NS Q2H PRN #0 bottle 04/16/15 Nystatin Oral Suspension - [Nystatin Oral Susp 638136 Units/5 ML -] 500,000 units PO Q6HPO 14 Days 04/17/15 Family Disease History - Family Disease History Family Disease History: Heart Disease: Father, Mother, Brother Review of Systems - Review of Systems Constitutional: reports: Fever, Malaise Cardiovascular: reports: Chest Pain, Shortness of Breath. denies: Palpitations Respiratory: reports: Cough, SOB, Wheezing. denies: Hemoptysis Neurological: reports: No Symptoms Physical Exam Vital Sings: Vital Signs Temperature 98.4 F 08/02/16 08:48 Pulse Rate 74 08/02/16 11:22 Respiratory Rate 20 08/02/16 11:22 Blood Pressure 114/46 08/02/16 11:22 O2 Sat by Pulse Oximetry (%) 96 08/02/16 10:25 Constitutional: Yes: No Distress Eyes: No: Sclera Icterus HENT: Yes: Atraumatic Neck: Yes: Supple, Trachea Midline Cardiovascular: Yes: Regular Rate and Rhythm. No: JVD Respiratory: Yes: Diminished (bilateral) ...Percussion: No: Dullnes, Hyperresonance ...Clubbing: No Gastrointestinal: Yes: Soft. No: Hepatomegaly, Splenomegaly, Tenderness Extremities: No: Calf Tenderness Edema: No Neurological: Yes: Alert, Oriented Labs: CBC, BMP 08/02/16 06:00 08/02/16 06:00 Imaging - Results Cat Scan: Report Reviewed, Image Reviewed (No change in 0.5 mm pulmonary nodule RLL and 2-3 mm nodules LLL. New RML consolidation and atelectasis.) Problem List - Problems (1) Pneumonia Code(s): J18.9 - PNEUMONIA, UNSPECIFIED ORGANISM (2) COPD exacerbation Code(s): J44.1 - CHRONIC OBSTRUCTIVE PULMONARY DISEASE W (ACUTE) EXACERBATION (3) Lung nodule < 6cm on CT Code(s): R91.1 - SOLITARY PULMONARY NODULE (4) ASHD (arteriosclerotic heart disease) Code(s): I25.10 - ATHSCL HEART DISEASE OF [place] CORONARY ARTERY W/O ANG PCTRS Assessment/Plan 61year old lady with: Pnuemonia- RML consolidation and and atelectasis not present on previous CT in 2015. Low grade fever, cough, sputum productrion and increased dyspnea. Acute Exacerbation of COPD: respiratory status somewhat better but pt still has dyspnea on minimal exertion Lung Nodules- largest is 5 mm in RLL. No significant change in nodules on CT scans going back to 2013 suggesting they are benign. However, pt continues to smoke so at increased risk to develop lung carcinoma. ASHD- some chest pressure. Pt has previous hx of severe CAD and peripheral vascular disease. Suggest: O2 to maintain SaO2>90 Inhaled bronchodilators Antibiotics In light of pt's smoking history and age would get annual low radiation dose screening CT chest. Cardiac evaluation is in progress Thank you for referring this patient for consultation.
--- NOTE | 2016-08-02 14:34 | PN ---
Progress Note, Physician Chief Complaint: in bed feels a little better but still with cough and BUI d/w cardio dr Saul d/w pt her tests and meds - Current Medication List Current Medications: Active Medications Acetaminophen (Tylenol -) 650 mg PO Q6H PRN PRN Reason: FEVER OR PAIN Aclidinium [place] (Tudorza -) 1 puff IH BID [facility] Last Admin: 08/02/16 09:30 Dose: 1 puff Al Hydroxide/Mg Hydroxide (Mylanta Oral Suspension -) 30 ml PO Q6H PRN PRN Reason: DYSPEPSIA Albuterol Sulfate (Ventolin 0.083% Nebulizer Soln -) 1 amp NEB Q6H PRN PRN Reason: SHORT OF BREATH/WHEEZING Last Admin: 08/02/16 10:25 Dose: 1 amp Aspirin (Asa -) 81 mg PO DAILY [facility] Last Admin: 08/02/16 09:29 Dose: 81 mg Atorvastatin Calcium (Lipitor -) 80 mg PO [facility] Last Admin: 08/01/16 22:19 Dose: 80 mg Clopidogrel Bisulfate (Plavix -) 75 mg PO DAILY [facility] Last Admin: 08/02/16 09:30 Dose: 75 mg Folic Acid (Folic Acid -) 1 mg PO DAILY [facility] Last Admin: 08/02/16 09:30 Dose: 1 mg Furosemide (Lasix -) 20 mg PO DAILY [facility] Last Admin: 08/02/16 11:23 Dose: 20 mg Heparin Sodium (Porcine) (Heparin -) 5,000 unit SQ BID [facility] Last Admin: 08/02/16 09:30 Dose: 5,000 unit Ceftriaxone Sodium (Rocephin 1gm Ivpb (Pre-Docked)) 50 mls @ 100 mls/hr IVPB DAILY [facility] Last Admin: 08/02/16 11:17 Dose: 100 mls/hr Azithromycin (Zithromax 500mg Ivpb (Pre-Docked)) 250 mls @ 250 mls/hr IVPB DAILY [facility] Last Admin: 08/02/16 09:31 Dose: 250 mls/hr Isosorbide Mononitrate (Imdur -) 30 mg PO BID [facility] Methylprednisolone Sodium Succinate (Solu-Medrol -) 40 mg IVPB Q6H-IV [facility] Last Admin: 08/02/16 08:59 Dose: 40 mg Montelukast Sodium (Singulair -) 10 mg PO [facility] Last Admin: 08/01/16 22:19 Dose: 10 mg Nystatin (Nystatin Oral Suspension -) 500,000 units PO Q6HPO [facility] Last Admin: 08/02/16 14:05 Dose: Not Given Ranitidine HCl (Zantac -) 150 mg PO BID [facility] Last Admin: 08/02/16 09:30 Dose: 150 mg Ranolazine (Ranexa -) 500 mg PO BID [facility] Sodium Chloride ([place] Nasal [place] -) 2 spray NS Q2H PRN PRN Reason: NASAL CONGESTION Verapamil HCl (Calan Sr -) 240 mg PO BID [facility] - Objective Vital Signs: Vital Signs Temperature 98.4 F 08/02/16 08:48 Pulse Rate 74 08/02/16 11:22 Respiratory Rate 20 08/02/16 11:22 Blood Pressure 114/46 08/02/16 11:22 O2 Sat by Pulse Oximetry (%) 96 08/02/16 10:25 Constitutional: Yes: No Distress, Calm Eyes: Yes: Conjunctiva Clear HENT: Yes: Atraumatic Neck: Yes: Supple Cardiovascular: Yes: Regular Rate and Rhythm Respiratory: Yes: Rhonchi, Wheezes Gastrointestinal: Yes: Soft. No: Distention, Tenderness Genitourinary: No: CVA Tenderness - Left, CVA Tenderness - Right Musculoskeletal: No: Joint Stiffness, Joint Swelling Extremities: No: Cold, Cool Edema: No Peripheral Pulses WNL: Yes Integumentary: No: Rash, Venous Stasis Changes Neurological: Yes: WNL, Alert, Oriented ...Motor Strength: WNL Psychiatric: Yes: WNL, Alert, Oriented. No: Agitated, Suicidal Ideation Labs: CBC, BMP 08/02/16 06:00 08/02/16 06:00 - ....Imaging Other: Report Reviewed Assessment/Plan The patient is a 61 year old female with a significant past medical history of HTN, HLD, COPD, ASHD s/p [place], PVD, HBP, who presents to the Emergency Department with complaints of increased SOB and worsening productive cough since yesterday. She reports chest pain secondary to cough. She states that she received 5 nebulizer treatments without significant improvement. Pt reports 102 fever before admission. COPD exacerbation; URI vs PNA, h/o lung nodules h/o carotid ds and HTN diastolic CHF h/o heavy smoking and nonc/w visits and tests admit in INPT IV steroids, IV ATB cardio and pulm f/u chest CT carotids US and echo strongly advised no smoking DVT falls PFX prognosis guarded advised to be c/w visits and tests d/w pt and staff t time 40 min
--- NOTE | 2016-08-02 14:52 | CONS ---
DATE OF CONSULTATION: 08/02/2016 REQUESTED BY: Casi Cohn MD CHIEF COMPLAINT: Dyspnea, chest discomfort, cardiovascular evaluation. A 61-year-old female with known history of coronary artery disease, status post myocardial infarction, unclear if an intervention was performed; diastolic left ventricular dysfunction with chronic Class I [place] Heart Association Classification of left ventricular failure; carotid artery disease, post right carotid endarterectomy; mesenteric ischemia, post bypass surgery; peripheral vascular disease; hypertensive cardiovascular disease; hypercholesterolemia; advanced chronic obstructive pulmonary disease who presented to [facility] with increasing dyspnea and, in addition, cough productive of clear sputum. The patient was recently hospitalized at [facility] and, subsequently, she was transferred to [facility] for further management of her coronary disease. According to the patient, no intervention was performed, but records are currently not available. The patient, in addition, reported with the current presentation expiratory wheezing and cough productive of colored sputum. The patient denied any orthopnea or paroxysmal nocturnal dyspnea. The patient, in addition, has been reporting chest discomfort, which is exacerbated by deep inspiration and cough and, in addition, on occasions with ambulation. The patient denies any palpitations, dizziness, lightheadedness, or syncope. The patient reports persistence of fatigue and tiredness. PAST MEDICAL HISTORY: Coronary artery disease, status post myocardial infarction, unclear if intervention was performed; diastolic left ventricular dysfunction with chronic Class I [place] Heart Association Classification of left ventricular failure; carotid artery disease, post carotid endarterectomy; mesenteric ischemia, post bypass; peripheral vascular disease, post intervention; hypertensive cardiovascular disease; hypercholesterolemia; chronic obstructive pulmonary disease; cholecystectomy. SOCIAL HISTORY: A smoker until recently. FAMILY HISTORY: Positive coronary artery disease. ALLERGIES: No known medical allergies. MEDICAL THERAPY: Currently includes acetaminophen 650 mg every 6 hours as needed; Tudorza 1 puff twice a day; Mylanta oral suspension 30 mL every 6 hours as needed; Ventolin nebulizer; Ecotrin 81 mg once a day; Lipitor 80 mg once a day; Plavix 75 mg once a day; folic acid 1 mg once a day; Lasix 20 mg once a day; subcutaneous heparin 5000 units subcutaneously twice a day; ceftriaxone/Rocephin 1 g once a day; Zithromax 250 mg once a day; Imdur 30 mg twice a day; Solu-Medrol 40 mg every 6 hours; Singulair 10 mg once a day; Zantac 150 mg twice a day; verapamil-SR 240 mg twice a day. REVIEW OF SYSTEMS: Head/Neck: She denies headache, photophobia, blurring of vision. Respiratory: As noted above. Cardiovascular: As noted above. Gastrointestinal: She denies nausea, vomiting, diarrhea, abdominal discomfort. Genitourinary: No symptoms reported. PHYSICAL EXAMINATION: Vital Signs: Blood pressure is 114/46 mmHg, pulse rate is 74 beats/min. Head/Neck: Pupils equal and reactive to light and accommodation. Extraocular muscles are intact. Anicteric sclerae. Negative JVD. No bruit appreciated. Chest: Bilateral scattered rhonchi. Cardiovascular: S1, S2 regular. Grade 1/6 to 2/6 systolic ejection murmur. No clicks or gallops. Abdomen: Soft, benign, normoactive bowel sounds. Extremities: Trace edema, decreased distal pulses. No calf tenderness. Electrocardiogram reveals sinus rhythm, sinus tachycardia with poor R-wave progression, nonspecific ST-segment abnormality. Chest x-ray report was noted. CT scan of the chest report was noted. CBC revealed white cell count 13.9, hemoglobin of 11.1, platelets 275. Basic metabolic profile revealed sodium 138, potassium 4.3, BUN 21, creatinine 0.7, glucose 178. BNP 1221. Cholesterol 162, LDL 76, HDL 72, triglyceride 62. 1. Chest pain syndrome in a patient with known history of coronary artery disease, post myocardial infarction, angina pectoris. 2. Dyspnea consistent with acute exacerbation of chronic obstructive pulmonary disease, probable pneumonia. 3. Chronic diastolic left ventricular dysfunction with Class I to II [place] Heart Association Classification of left ventricular failure, probably euvolemic. 4. Hypertensive cardiovascular disease. 5. Hypercholesterolemia. 6. History of carotid stenosis, post carotid endarterectomy. 7. Mesenteric ischemia, post intervention. 8. Peripheral vascular disease, post intervention. PLAN: 1. Continuation of verapamil-SR. 2. Continuation of Imdur, but, ideally, dosing should be changed to 60 mg once daily. Patient currently is reluctant to do so. 3. Addition of Ranexa with caution, considering potential interaction with verapamil-SR therapy administration. 4. Ideally, patient should be on SONNY inhibitor or angiotensin-receptor blockers unless it is contraindicated. 5. Continuation of Lipitor. 6. Continuation of Lasix. 7. Continuation of aspirin and Plavix. 8. Echocardiography for evaluation of left ventricular systolic function. Case was discussed with her Instructor Traffic Safety, Dr. Luis Eduardo Manning, with whom she will be following up post discharge. Thank you for the kind referral. ROSENDO FRENCH M.D. [id number]
[2016-08-02] MEDS ORDERED: PT OWN MED DRAWER 7, Y5N ONE (17:44)
[2016-08-02] MEDS: RANOLAZINE E.R. 500 MG TABLET (FP) PO SCH (21:51)
[2016-08-02] MEDS: ATORVASTATIN CA 80 MG TABLET (FP) PO SCH (21:51)
[2016-08-02] MEDS: MONTELUKAST NA 10 MG TABLET PO SCH (21:52)
[2016-08-03] MEDS: NYSTATIN 500,000 UNITS/5 ML SUSPENSION PO SCH ×4 (00:05→18:00)
[2016-08-03] MEDS: methylPREDNISolone NA SUCC 40 MG/1 ML VIAL IVPB SCH ×4 (03:04→21:03)
[2016-08-03 07:57] LABS: MCHC 32.3 g/dl (32.0-36.0); MEAN CELL VOLUME 86.9 fl (80-96); NEUTROPHILS 92.9 % (42.8-82.8); PLATELET COUNT 299 K/MM3 (134-434); RDW 16.1 % (11.6-15.6); WHITE BLOOD COUNT 14.2 K/mm3 (4.0-10.0)
[2016-08-03] MEDS: ALBUTEROL SO4 0.083% IH SOL 2.5 MG/3 ML VIAL.NEB. NEB PRN ×2 (08:40→17:24)
[2016-08-03 08:41] LABS: CALCIUM 8.6 mg/dL (8.5-10.1); CREATININE 0.6 mg/dL (0.55-1.02)
[2016-08-03 08:53] LABS: THYROID STIMULATING HORMONE 0.03 uIU/ml (0.358-3.74)
[2016-08-03] MEDS: RANOLAZINE E.R. 500 MG TABLET (FP) PO SCH ×2 (09:30→21:03)
[2016-08-03] MEDS: FOLIC ACID 1 MG TABLET (FP) PO SCH (09:31)
[2016-08-03] MEDS: ISOSORBIDE MONONITRATE 30 MG TAB.SR.24H (FP) PO SCH ×2 (09:31→21:03)
[2016-08-03] MEDS: CLOPIDOGREL BISULFATE 75 MG TABLET (FP) PO SCH (09:31)
[2016-08-03] MEDS: RANITIDINE HCL 150 MG TABLET (FP) PO SCH ×2 (09:31→21:03)
[2016-08-03] MEDS: ACLIDINIUM BROMIDE 400 MCG/INH AERO.POWD IH SCH ×2 (09:31→21:04)
[2016-08-03] MEDS: FUROSEMIDE 20 MG TABLET (FP) PO SCH (09:31)
[2016-08-03] MEDS: ASPIRIN 81 MG CHEWABLE TABLETS PO SCH (09:31)
[2016-08-03] MEDS: HEPARIN NA (PORCINE) 5,000 UNITS/ML 1ML VIAL SQ SCH ×2 (09:32→21:32)
[2016-08-03] MEDS: AZITHROMYCIN IVPB 250 ML IVPB SCH (09:33)
--- NOTE | 2016-08-03 09:37 | CONSULT ---
Consult Consult Specialty:: Endocrinology - Past Medical History Cardio/Vascular: Yes: CAD, HTN, Other (carotid ds) Pulmonary: Yes: COPD Gastrointestinal: Yes: Other (Mesenteric ischemia treated with SMA bypass 3 years ago.) Psych: Yes: Anxiety, Depression - Past Surgical History Past Surgical History: Yes: Carotid Endarterectomy - Alcohol/Substance Use Hx Alcohol Use: No History of Substance Use: reports: None - Smoking History Smoking history: Former smoker Have you smoked in the past 12 months: Yes Aproximately how many cigarettes per day: 10 If you are a former smoker, when did you quit?: 1 week ago - Social History ADL: Independent History of Recent Travel: No Home Medications - Allergies Allergies/Adverse Reactions: Allergies Allergy/AdvReac Type Severity Reaction Status Date / Time No Known Drug Allergies Allergy Verified 07/31/16 17:03 - Home Medications Home Medications: Ambulatory Orders Albuterol 2.5/Ipratropium 0.5 [Duoneb -] 1 neb NEB Q4H PRN #0 vial 12/27/12 Aspirin [ASA -] 81 mg PO DAILY #0 tab.chew 12/27/12 Atorvastatin Calcium [Lipitor] 80 mg PO HS #0 tablet 12/27/12 Clopidogrel Bisulfate [Plavix -] 75 mg PO DAILY #0 tablet 12/27/12 Folic Acid - 1 mg PO DAILY #0 tablet 12/27/12 Furosemide [Lasix -] 20 mg PO DAILY #0 tablet 12/27/12 Isosorbide Mononitrate [Imdur] 30 mg PO BID #0 tab.sr.24h 12/27/12 Montelukast Na [Singulair -] 10 mg PO HS #0 tablet 12/27/12 Ranitidine [Zantac -] 150 mg PO DAILY #0 tablet 12/27/12 Tiotropium [place] [Spiriva] 1 inh IH DAILY #0 inh 12/27/12 Verapamil HCl ER [Calan Sr -] 180 mg PO BID #0 tablet.er 12/27/12 Fluticasone Prop 0.05% Nasal [Flonase -] 1 - 2 spray NS BID #1 spray.pump Acetaminophen [Tylenol .Regular Strength -] 650 mg PO Q6H PRN #0 tablet Mag Hydrox/Al Hydrox/Simeth [Mylanta Oral Suspension -] 30 ml PO Q6H PRN #0 cup 04/16/15 Sodium Chloride Nasal [place] [[place] Nasal [place] -] 2 spray NS Q2H PRN #0 bottle 04/16/15 Nystatin Oral Suspension - [Nystatin Oral Susp 346249 Units/5 ML -] 500,000 units PO Q6HPO 14 Days 04/17/15 Family Disease History - Family Disease History Family Disease History: Heart Disease: Father, Mother, Brother Physical Exam Vital Signs: Vital Signs Temperature 98.2 F 08/03/16 08:10 Pulse Rate 70 08/03/16 08:10 Respiratory Rate 20 08/03/16 08:10 Blood Pressure 115/64 08/03/16 08:10 O2 Sat by Pulse Oximetry (%) 96 08/02/16 10:25 Labs: CBC, BMP 08/03/16 06:00 08/03/16 06:00 Assessment/Plan Pt doesn't want to be seen. Says she will see in the office.
--- NOTE | 2016-08-03 09:38 | PN ---
Progress Note (short form) - Note Progress Note: Pt doesn't want to be consulted. Says she will make an appointment to be seen in the office.
[2016-08-03] MEDS: VERAPAMIL HCL 240 MG E.R. TABLET (FP) PO SCH ×2 (09:39→21:03)
[2016-08-03] MEDS: CEFTRIAXONE 50 ML IVPB SCH (11:00)
--- NOTE | 2016-08-03 11:56 | PN ---
Progress Note, Physician History of Present Illness: Dyspnea and cough slowly improving. - Current Medication List Current Medications: Active Medications Acetaminophen (Tylenol -) 650 mg PO Q6H PRN PRN Reason: FEVER OR PAIN Aclidinium [place] (Tudorza -) 1 puff IH BID [facility] Last Admin: 08/03/16 09:31 Dose: 1 puff Al Hydroxide/Mg Hydroxide (Mylanta Oral Suspension -) 30 ml PO Q6H PRN PRN Reason: DYSPEPSIA Albuterol Sulfate (Ventolin 0.083% Nebulizer Soln -) 1 amp NEB Q6H PRN PRN Reason: SHORT OF BREATH/WHEEZING Last Admin: 08/03/16 08:40 Dose: 1 amp Aspirin (Asa -) 81 mg PO DAILY [facility] Last Admin: 08/03/16 09:31 Dose: 81 mg Atorvastatin Calcium (Lipitor -) 80 mg PO HS [facility] Last Admin: 08/02/16 21:51 Dose: 80 mg Clopidogrel Bisulfate (Plavix -) 75 mg PO DAILY [facility] Last Admin: 08/03/16 09:31 Dose: 75 mg Folic Acid (Folic Acid -) 1 mg PO DAILY [facility] Last Admin: 08/03/16 09:31 Dose: 1 mg Furosemide (Lasix -) 20 mg PO DAILY [facility] Last Admin: 08/03/16 09:31 Dose: 20 mg Heparin Sodium (Porcine) (Heparin -) 5,000 unit SQ BID [facility] Last Admin: 08/03/16 09:32 Dose: 5,000 unit Ceftriaxone Sodium (Rocephin 1gm Ivpb (Pre-Docked)) 50 mls @ 100 mls/hr IVPB DAILY [facility] Last Admin: 08/03/16 11:00 Dose: 100 mls/hr Azithromycin (Zithromax 500mg Ivpb (Pre-Docked)) 250 mls @ 250 mls/hr IVPB DAILY [facility] Last Admin: 08/03/16 09:33 Dose: 250 mls/hr Isosorbide Mononitrate (Imdur -) 30 mg PO BID [facility] Last Admin: 08/03/16 09:31 Dose: 30 mg Methylprednisolone Sodium Succinate (Solu-Medrol -) 40 mg IVPB Q6H-IV [facility] Last Admin: 08/03/16 09:00 Dose: 40 mg Montelukast Sodium (Singulair -) 10 mg PO HS [facility] Last Admin: 08/02/16 21:52 Dose: 10 mg Nystatin (Nystatin Oral Suspension -) 500,000 units PO Q6HPO [facility] Last Admin: 08/03/16 06:20 Dose: Not Given Ranitidine HCl (Zantac -) 150 mg PO BID [facility] Last Admin: 08/03/16 09:31 Dose: 150 mg Ranolazine (Ranexa -) 500 mg PO BID [facility] Last Admin: 08/03/16 09:30 Dose: 500 mg Sodium Chloride ([place] Nasal [place] -) 2 spray NS Q2H PRN PRN Reason: NASAL CONGESTION Verapamil HCl (Calan Sr -) 240 mg PO BID [facility] Last Admin: 08/03/16 09:39 Dose: 240 mg - Objective Vital Signs: Vital Signs Temperature 98.2 F 08/03/16 08:10 Pulse Rate 71 08/03/16 10:24 Respiratory Rate 20 08/03/16 08:10 Blood Pressure 115/64 08/03/16 08:10 O2 Sat by Pulse Oximetry (%) 98 08/03/16 10:24 Constitutional: Yes: No Distress, Calm Neck: Yes: Supple Cardiovascular: Yes: Regular Rate and Rhythm Respiratory: Yes: Regular, Diminished, On Nasal O2 Gastrointestinal: Yes: Normal Bowel Sounds, Soft, Abdomen, Obese Edema: No Labs: CBC, BMP 08/03/16 06:00 08/03/16 06:00 Problem List - Problems (1) ASHD (arteriosclerotic heart disease) Code(s): I25.10 - ATHSCL HEART DISEASE OF [place] CORONARY ARTERY W/O ANG PCTRS (2) COPD exacerbation Code(s): J44.1 - CHRONIC OBSTRUCTIVE PULMONARY DISEASE W (ACUTE) EXACERBATION (3) Pneumonia Code(s): J18.9 - PNEUMONIA, UNSPECIFIED ORGANISM (4) Coronary artery disease Code(s): I25.10 - ATHSCL HEART DISEASE OF [place] CORONARY ARTERY W/O ANG PCTRS Qualifiers: Coronary Disease-Associated Artery/Lesion type: tribe artery [place] vs. transplanted heart: tribe heart Associated angina: without angina Qualified Code(s): I25.10 - Atherosclerotic heart disease of [place] coronary artery without angina pectoris (5) History of myocardial infarction Code(s): I25.2 - OLD MYOCARDIAL INFARCTION (6) Hypertensive cardiomegaly without heart failure Code(s): I11.9 - HYPERTENSIVE HEART DISEASE WITHOUT HEART FAILURE (7) Peripheral artery disease Code(s): I73.9 - PERIPHERAL VASCULAR DISEASE, UNSPECIFIED (8) Hyperlipidemia Code(s): E78.5 - HYPERLIPIDEMIA, UNSPECIFIED Qualifiers: Hyperlipidemia type: pure hypercholesterolemia Qualified Code(s): E78.0 - Pure hypercholesterolemia Assessment/Plan 1. Chest pain syndrome in a patient with known history of CAD post CA angina pectoris 2. Dyspnea consistent with acute exacerbation of COPD, probable RML pneumonia, current tobacco abuse 3. Chronic diastolic LV dysfunction with class I-II NYHA classification LV failure, euvolemic 4. HTN 5. Hypercholesterolemia 6. History of carotid stenosis post end-arterectomy 7. Mesenteric ischemia post intervention 8. PAD post intervention PLAN: 1. Continue Verapamil SR 24 bid 2. Continue Imdur 30 bid but ideally dosing should be changed to 60 mg daily, patient is reluctant to do so 3. Added Ranexa 500 bid 4. Ideally patient should be on ACEI or ARBS, unless it is contraindicated 5. Continue Lipitor 80 qhs 6. Continue Lasix 20 qd 7. Continue ASA 81 qd and Plavix 75 qd 8. Echocardiography for evaluation of LV systolic function 9. Abx course, BD, IV steroids with GI prophylaxis, Singulair 10 qhs, O2, smoking cessation counselling 9. F/u with Dr. Luis Eduardo Manning, patient's technology sales consultant upon d/c
--- NOTE | 2016-08-03 19:41 | PN ---
Progress Note, Physician History of Present Illness: Pt slightly less dyspneic. No chest pain - Current Medication List Current Medications: Active Medications Acetaminophen (Tylenol -) 650 mg PO Q6H PRN PRN Reason: FEVER OR PAIN Aclidinium [place] (Tudorza -) 1 puff IH BID [facility] Last Admin: 08/03/16 09:31 Dose: 1 puff Al Hydroxide/Mg Hydroxide (Mylanta Oral Suspension -) 30 ml PO Q6H PRN PRN Reason: DYSPEPSIA Albuterol Sulfate (Ventolin 0.083% Nebulizer Soln -) 1 amp NEB Q6H PRN PRN Reason: SHORT OF BREATH/WHEEZING Last Admin: 08/03/16 17:24 Dose: 1 amp Aspirin (Asa -) 81 mg PO DAILY [facility] Last Admin: 08/03/16 09:31 Dose: 81 mg Atorvastatin Calcium (Lipitor -) 80 mg PO HS [facility] Last Admin: 08/02/16 21:51 Dose: 80 mg Clopidogrel Bisulfate (Plavix -) 75 mg PO DAILY [facility] Last Admin: 08/03/16 09:31 Dose: 75 mg Folic Acid (Folic Acid -) 1 mg PO DAILY [facility] Last Admin: 08/03/16 09:31 Dose: 1 mg Furosemide (Lasix -) 20 mg PO DAILY [facility] Last Admin: 08/03/16 09:31 Dose: 20 mg Heparin Sodium (Porcine) (Heparin -) 5,000 unit SQ BID [facility] Last Admin: 08/03/16 09:32 Dose: 5,000 unit Ceftriaxone Sodium (Rocephin 1gm Ivpb (Pre-Docked)) 50 mls @ 100 mls/hr IVPB DAILY [facility] Last Admin: 08/03/16 11:00 Dose: 100 mls/hr Azithromycin (Zithromax 500mg Ivpb (Pre-Docked)) 250 mls @ 250 mls/hr IVPB DAILY [facility] Last Admin: 08/03/16 09:33 Dose: 250 mls/hr Isosorbide Mononitrate (Imdur -) 30 mg PO BID [facility] Last Admin: 08/03/16 09:31 Dose: 30 mg Methylprednisolone Sodium Succinate (Solu-Medrol -) 40 mg IVPB Q6H-IV [facility] Last Admin: 08/03/16 14:45 Dose: 40 mg Montelukast Sodium (Singulair -) 10 mg PO HS [facility] Last Admin: 08/02/16 21:52 Dose: 10 mg Nystatin (Nystatin Oral Suspension -) 500,000 units PO Q6HPO [facility] Last Admin: 08/03/16 18:00 Dose: Not Given Ranitidine HCl (Zantac -) 150 mg PO BID [facility] Last Admin: 08/03/16 09:31 Dose: 150 mg Ranolazine (Ranexa -) 500 mg PO BID [facility] Last Admin: 08/03/16 09:30 Dose: 500 mg Sodium Chloride ([place] Nasal [place] -) 2 spray NS Q2H PRN PRN Reason: NASAL CONGESTION Verapamil HCl (Calan Sr -) 240 mg PO BID [facility] Last Admin: 08/03/16 09:39 Dose: 240 mg - Objective Vital Signs: Vital Signs Temperature 98.4 F 08/03/16 14:49 Pulse Rate 72 08/03/16 14:49 Respiratory Rate 16 08/03/16 14:49 Blood Pressure 120/80 08/03/16 14:49 O2 Sat by Pulse Oximetry (%) 98 08/03/16 10:24 Constitutional: Yes: No Distress Eyes: No: Sclera Icterus HENT: Yes: Atraumatic, Normocephalic Neck: Yes: Supple, Trachea Midline Cardiovascular: Yes: Regular Rate and Rhythm, JVD Respiratory: Yes: Wheezes (mild bilateral) Gastrointestinal: Yes: Soft. No: Tenderness Extremities: No: Calf Tenderness Edema: No Labs: CBC, BMP 08/03/16 06:00 08/03/16 06:00 Problem List - Problems (1) Pneumonia Code(s): J18.9 - PNEUMONIA, UNSPECIFIED ORGANISM (2) COPD exacerbation Code(s): J44.1 - CHRONIC OBSTRUCTIVE PULMONARY DISEASE W (ACUTE) EXACERBATION (3) Lung nodule < 6cm on CT Code(s): R91.1 - SOLITARY PULMONARY NODULE (4) ASHD (arteriosclerotic heart disease) Code(s): I25.10 - ATHSCL HEART DISEASE OF [place] CORONARY ARTERY W/O ANG PCTRS Assessment/Plan 61year old lady with: Pnuemonia- RML consolidation and and atelectasis not present on previous CT in 2015. Low grade fever, cough, sputum production and increased dyspnea. Acute Exacerbation of COPD: respiratory status somewhat better but pt still has dyspnea on minimal exertion Lung Nodules- largest is 5 mm in RLL. No significant change in nodules on CT scans going back to 2013 suggesting they are benign. However, pt continues to smoke so at increased risk to develop lung carcinoma. ASHD-Pt has previous hx of severe CAD and peripheral vascular disease. Respiratory status is slightly improved today but still has wheezing and dyspnea Suggest: O2 to maintain SaO2>90 Inhaled bronchodilators Antibiotics IV steroids
[2016-08-03] MEDS ORDERED: PT OWN MED DRAWER 7, Y5N ONE (20:22)
[2016-08-03] MEDS: ATORVASTATIN CA 80 MG TABLET (FP) PO SCH (21:03)
[2016-08-03] MEDS: MONTELUKAST NA 10 MG TABLET PO SCH (21:03)
--- NOTE | 2016-08-03 23:04 | PN ---
Progress Note, Physician Chief Complaint: in bed still coughing and wheezing - Current Medication List Current Medications: Active Medications Acetaminophen (Tylenol -) 650 mg PO Q6H PRN PRN Reason: FEVER OR PAIN Aclidinium [place] (Tudorza -) 1 puff IH BID [facility] Last Admin: 08/03/16 21:04 Dose: 1 puff Al Hydroxide/Mg Hydroxide (Mylanta Oral Suspension -) 30 ml PO Q6H PRN PRN Reason: DYSPEPSIA Albuterol Sulfate (Ventolin 0.083% Nebulizer Soln -) 1 amp NEB Q6H PRN PRN Reason: SHORT OF BREATH/WHEEZING Last Admin: 08/03/16 17:24 Dose: 1 amp Aspirin (Asa -) 81 mg PO DAILY [facility] Last Admin: 08/03/16 09:31 Dose: 81 mg Atorvastatin Calcium (Lipitor -) 80 mg PO [facility] Last Admin: 08/03/16 21:03 Dose: 80 mg Clopidogrel Bisulfate (Plavix -) 75 mg PO DAILY [facility] Last Admin: 08/03/16 09:31 Dose: 75 mg Folic Acid (Folic Acid -) 1 mg PO DAILY [facility] Last Admin: 08/03/16 09:31 Dose: 1 mg Furosemide (Lasix -) 20 mg PO DAILY [facility] Last Admin: 08/03/16 09:31 Dose: 20 mg Heparin Sodium (Porcine) (Heparin -) 5,000 unit SQ BID [facility] Last Admin: 08/03/16 21:32 Dose: 5,000 unit Ceftriaxone Sodium (Rocephin 1gm Ivpb (Pre-Docked)) 50 mls @ 100 mls/hr IVPB DAILY [facility] Last Admin: 08/03/16 11:00 Dose: 100 mls/hr Azithromycin (Zithromax 500mg Ivpb (Pre-Docked)) 250 mls @ 250 mls/hr IVPB DAILY [facility] Last Admin: 08/03/16 09:33 Dose: 250 mls/hr Isosorbide Mononitrate (Imdur -) 30 mg PO BID [facility] Last Admin: 08/03/16 21:03 Dose: 30 mg Methylprednisolone Sodium Succinate (Solu-Medrol -) 40 mg IVPB Q6H-IV [facility] Last Admin: 08/03/16 21:03 Dose: 40 mg Montelukast Sodium (Singulair -) 10 mg PO [facility] Last Admin: 08/03/16 21:03 Dose: 10 mg Nystatin (Nystatin Oral Suspension -) 500,000 units PO Q6HPO [facility] Last Admin: 08/03/16 18:00 Dose: Not Given Ranitidine HCl (Zantac -) 150 mg PO BID [facility] Last Admin: 08/03/16 21:03 Dose: 150 mg Ranolazine (Ranexa -) 500 mg PO BID [facility] Last Admin: 08/03/16 21:03 Dose: 500 mg Sodium Chloride ([place] Nasal [place] -) 2 spray NS Q2H PRN PRN Reason: NASAL CONGESTION Verapamil HCl (Calan Sr -) 240 mg PO BID [facility] Last Admin: 08/03/16 21:03 Dose: 240 mg - Objective Vital Signs: Vital Signs Temperature 97.7 F 08/03/16 18:00 Pulse Rate 74 08/03/16 18:00 Respiratory Rate 20 08/03/16 18:00 Blood Pressure 138/61 08/03/16 18:00 O2 Sat by Pulse Oximetry (%) 98 08/03/16 10:24 Constitutional: Yes: No Distress Eyes: Yes: Conjunctiva Clear HENT: Yes: Atraumatic Neck: Yes: Supple Cardiovascular: Yes: Regular Rate and Rhythm Respiratory: Yes: Rales, Wheezes Gastrointestinal: Yes: Soft. No: Distention, Tenderness Musculoskeletal: No: Joint Stiffness, Joint Swelling Extremities: No: Cold, Cool Edema: No Peripheral Pulses WNL: Yes Neurological: Yes: WNL, Alert, Oriented ...Motor Strength: WNL Psychiatric: Yes: WNL, Alert, Oriented. No: Agitated Labs: CBC, BMP 08/03/16 06:00 08/03/16 06:00 - ....Imaging Other: Report Reviewed Assessment/Plan The patient is a 61 year old female with a significant past medical history of HTN, HLD, COPD, ASHD s/p [place], PVD, HBP, who presents to the Emergency Department with complaints of increased SOB and worsening productive cough since yesterday. She reports chest pain secondary to cough. She states that she received 5 nebulizer treatments without significant improvement. Pt reports 102 fever before admission. COPD exacerbation; URI vs PNA, h/o lung nodules h/o carotid ds and HTN diastolic CHF h/o heavy smoking and nonc/w visits and tests admit in INPT IV steroids, IV ATB cardio and pulm f/u chest CT carotids US and echo strongly advised no smoking DVT falls PFX prognosis guarded advised to be c/w visits and tests d/w pt and staff
[2016-08-04] MEDS: NYSTATIN 500,000 UNITS/5 ML SUSPENSION PO SCH ×4 (00:04→18:21)
[2016-08-04] MEDS: methylPREDNISolone NA SUCC 40 MG/1 ML VIAL IVPB SCH ×3 (02:39→18:21)
[2016-08-04 08:06] LABS: MCH 28.1 pg (25.7-33.7); MCHC 32.5 g/dl (32.0-36.0); MEAN CELL VOLUME 86.3 fl (80-96); MEAN PLT VOLUME 6.9 fl (7.5-11.1); NEUTROPHILS 88.4 % (42.8-82.8); PLATELET COUNT 307 K/MM3 (134-434); RDW 15.9 % (11.6-15.6); WHITE BLOOD COUNT 9.9 K/mm3 (4.0-10.0)
[2016-08-04 08:25] LABS: CALCIUM 8.7 mg/dL (8.5-10.1)
[2016-08-04 08:26] LABS: CREATININE 0.7 mg/dL (0.55-1.02)
[2016-08-04] MEDS: ALBUTEROL SO4 0.083% IH SOL 2.5 MG/3 ML VIAL.NEB. NEB PRN ×2 (09:40→17:20)
--- NOTE | 2016-08-04 10:25 | PN ---
[id number] Medications: Active Medications Acetaminophen (Tylenol -) 650 mg PO Q6H PRN PRN Reason: FEVER OR PAIN Aclidinium [place] (Tudorza -) 1 puff IH BID [facility] Last Admin: 08/03/16 21:04 Dose: 1 puff Al Hydroxide/Mg Hydroxide (Mylanta Oral Suspension -) 30 ml PO Q6H PRN PRN Reason: DYSPEPSIA Albuterol Sulfate (Ventolin 0.083% Nebulizer Soln -) 1 amp NEB Q6H PRN PRN Reason: SHORT OF BREATH/WHEEZING Last Admin: 08/03/16 17:24 Dose: 1 amp Aspirin (Asa -) 81 mg PO DAILY [facility] Last Admin: 08/03/16 09:31 Dose: 81 mg Atorvastatin Calcium (Lipitor -) 80 mg PO HS [facility] Last Admin: 08/03/16 21:03 Dose: 80 mg Clopidogrel Bisulfate (Plavix -) 75 mg PO DAILY [facility] Last Admin: 08/03/16 09:31 Dose: 75 mg Folic Acid (Folic Acid -) 1 mg PO DAILY [facility] Last Admin: 08/03/16 09:31 Dose: 1 mg Furosemide (Lasix -) 20 mg PO DAILY [facility] Last Admin: 08/03/16 09:31 Dose: 20 mg Heparin Sodium (Porcine) (Heparin -) 5,000 unit SQ BID [facility] Last Admin: 08/03/16 21:32 Dose: 5,000 unit Ceftriaxone Sodium (Rocephin 1gm Ivpb (Pre-Docked)) 50 mls @ 100 mls/hr IVPB DAILY [facility] Last Admin: 08/03/16 11:00 Dose: 100 mls/hr Azithromycin (Zithromax 500mg Ivpb (Pre-Docked)) 250 mls @ 250 mls/hr IVPB DAILY [facility] Last Admin: 08/03/16 09:33 Dose: 250 mls/hr Isosorbide Mononitrate (Imdur -) 30 mg PO BID [facility] Last Admin: 08/03/16 21:03 Dose: 30 mg Montelukast Sodium (Singulair -) 10 mg PO HS [facility] Last Admin: 08/03/16 21:03 Dose: 10 mg Nystatin (Nystatin Oral Suspension -) 500,000 units PO Q6HPO [facility] Last Admin: 08/04/16 05:44 Dose: Not Given Ranitidine HCl (Zantac -) 150 mg PO BID [facility] Last Admin: 08/03/16 21:03 Dose: 150 mg Ranolazine (Ranexa -) 500 mg PO BID [facility] Last Admin: 08/03/16 21:03 Dose: 500 mg Sodium Chloride ([place] Nasal [place] -) 2 spray NS Q2H PRN PRN Reason: NASAL CONGESTION Verapamil HCl (Calan Sr -) 240 mg PO BID [facility] Last Admin: 08/03/16 21:03 Dose: 240 mg - Objective Vital Signs: Vital Signs Temperature 97.7 F 08/04/16 06:37 Pulse Rate 66 08/04/16 06:37 Respiratory Rate 20 08/04/16 06:37 Blood Pressure 107/51 08/04/16 06:37 O2 Sat by Pulse Oximetry (%) 96 08/03/16 21:00 Constitutional: Yes: No Distress Eyes: Yes: Conjunctiva Clear HENT: Yes: Atraumatic Neck: Yes: Supple Cardiovascular: Yes: Regular Rate and Rhythm Respiratory: Yes: Rhonchi Gastrointestinal: Yes: Soft. No: Distention, Tenderness Genitourinary: No: CVA Tenderness - Left, CVA Tenderness - Right Musculoskeletal: No: Joint Stiffness, Joint Swelling Extremities: No: Cold, Cool Edema: No Peripheral Pulses WNL: Yes Integumentary: No: Pressure Ulcer, Venous Stasis Changes Neurological: Yes: WNL, Alert, Oriented ...Motor Strength: WNL Psychiatric: Yes: WNL, Alert, Oriented. No: Agitated, Suicidal Ideation Labs: CBC, BMP 08/04/16 06:00 08/04/16 06:00 - ....Imaging Other: Report Reviewed Assessment/Plan The patient is a 61 year old female with a significant past medical history of HTN, HLD, COPD, ASHD s/p [place], PVD, HBP, who presents to the Emergency Department with complaints of increased SOB and worsening productive cough since yesterday. She reports chest pain secondary to cough. She states that she received 5 nebulizer treatments without significant improvement. Pt reports 102 fever before admission. COPD exacerbation; URI vs PNA, h/o lung nodules h/o carotid ds and HTN diastolic CHF h/o heavy smoking and nonc/w visits and tests admit in INPT IV steroids, IV ATB cardio and pulm f/u chest CT carotids US and echo strongly advised no smoking DVT falls PFX prognosis guarded advised to be c/w visits and tests d/w pt and staff
[2016-08-04] MEDS ORDERED: PT OWN MED DRAWER 7, Y5N ONE ×2 (10:31→20:24)
[2016-08-04] MEDS: CEFTRIAXONE 50 ML IVPB SCH (10:34)
[2016-08-04] MEDS: HEPARIN NA (PORCINE) 5,000 UNITS/ML 1ML VIAL SQ SCH ×2 (10:34→21:26)
[2016-08-04] MEDS: FOLIC ACID 1 MG TABLET (FP) PO SCH (10:34)
[2016-08-04] MEDS: RANOLAZINE E.R. 500 MG TABLET (FP) PO SCH ×2 (10:35→21:30)
[2016-08-04] MEDS: FUROSEMIDE 20 MG TABLET (FP) PO SCH (10:35)
[2016-08-04] MEDS: RANITIDINE HCL 150 MG TABLET (FP) PO SCH ×2 (10:35→21:26)
[2016-08-04] MEDS: ASPIRIN 81 MG CHEWABLE TABLETS PO SCH (10:35)
[2016-08-04] MEDS: ISOSORBIDE MONONITRATE 30 MG TAB.SR.24H (FP) PO SCH ×2 (10:35→21:26)
[2016-08-04] MEDS: CLOPIDOGREL BISULFATE 75 MG TABLET (FP) PO SCH (10:35)
[2016-08-04] MEDS: AZITHROMYCIN IVPB 250 ML IVPB SCH (10:35)
[2016-08-04] MEDS: VERAPAMIL HCL 240 MG E.R. TABLET (FP) PO SCH ×2 (10:35→22:06)
[2016-08-04] MEDS: ACLIDINIUM BROMIDE 400 MCG/INH AERO.POWD IH SCH ×2 (10:40→21:28)
--- NOTE | 2016-08-04 12:04 | PN ---
Progress Note, Physician Chief Complaint: Complains of mild shortness of breath with exertion History of Present Illness: Patient was seen and examined. Awake and alert. Chart was reviewed Denies chest pain or palpitation Mild expiratory wheeze and dyspnea on exertion - Current Medication List Current Medications: Active Medications Acetaminophen (Tylenol -) 650 mg PO Q6H PRN PRN Reason: FEVER OR PAIN Aclidinium [place] (Tudorza -) 1 puff IH BID [facility] Last Admin: 08/04/16 10:40 Dose: 1 puff Al Hydroxide/Mg Hydroxide (Mylanta Oral Suspension -) 30 ml PO Q6H PRN PRN Reason: DYSPEPSIA Albuterol Sulfate (Ventolin 0.083% Nebulizer Soln -) 1 amp NEB Q6H PRN PRN Reason: SHORT OF BREATH/WHEEZING Last Admin: 08/04/16 09:40 Dose: 1 amp Aspirin (Asa -) 81 mg PO DAILY [facility] Last Admin: 08/04/16 10:35 Dose: 81 mg Atorvastatin Calcium (Lipitor -) 80 mg PO HS [facility] Last Admin: 08/03/16 21:03 Dose: 80 mg Clopidogrel Bisulfate (Plavix -) 75 mg PO DAILY [facility] Last Admin: 08/04/16 10:35 Dose: 75 mg Folic Acid (Folic Acid -) 1 mg PO DAILY [facility] Last Admin: 08/04/16 10:34 Dose: 1 mg Furosemide (Lasix -) 20 mg PO DAILY [facility] Last Admin: 08/04/16 10:35 Dose: 20 mg Heparin Sodium (Porcine) (Heparin -) 5,000 unit SQ BID [facility] Last Admin: 08/04/16 10:34 Dose: 5,000 unit Ceftriaxone Sodium (Rocephin 1gm Ivpb (Pre-Docked)) 50 mls @ 100 mls/hr IVPB DAILY [facility] Last Admin: 08/04/16 10:34 Dose: 100 mls/hr Azithromycin (Zithromax 500mg Ivpb (Pre-Docked)) 250 mls @ 250 mls/hr IVPB DAILY [facility] Last Admin: 08/04/16 10:35 Dose: 250 mls/hr Isosorbide Mononitrate (Imdur -) 30 mg PO BID [facility] Last Admin: 08/04/16 10:35 Dose: 30 mg Methylprednisolone Sodium Succinate (Solu-Medrol -) 40 mg IVPB Q8H-IV [facility] Montelukast Sodium (Singulair -) 10 mg PO HS [facility] Last Admin: 08/03/16 21:03 Dose: 10 mg Nystatin (Nystatin Oral Suspension -) 500,000 units PO Q6HPO [facility] Last Admin: 08/04/16 05:44 Dose: Not Given Ranitidine HCl (Zantac -) 150 mg PO BID [facility] Last Admin: 08/04/16 10:35 Dose: 150 mg Ranolazine (Ranexa -) 500 mg PO BID [facility] Last Admin: 08/04/16 10:35 Dose: 500 mg Sodium Chloride ([place] Nasal [place] -) 2 spray NS Q2H PRN PRN Reason: NASAL CONGESTION Verapamil HCl (Calan Sr -) 240 mg PO BID [facility] Last Admin: 08/04/16 10:35 Dose: 240 mg - Objective Vital Signs: Vital Signs Temperature 97.7 F 08/04/16 06:37 Pulse Rate 61 08/04/16 09:40 Respiratory Rate 20 08/04/16 06:37 Blood Pressure 107/51 08/04/16 06:37 O2 Sat by Pulse Oximetry (%) 96 08/04/16 09:40 Neck: Yes: Supple Cardiovascular: Yes: Regular Rate and Rhythm, S1, S2 Respiratory: Yes: Diminished, Wheezes Gastrointestinal: Yes: Normal Bowel Sounds, Soft. 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 Chest pain syndrome in a patient with known history of CAD post NH angina pectoris 2. Dyspnea consistent with acute exacerbation of COPD, probable RML pneumonia and current tobacco abuse 3. Chronic diastolic LV dysfunction with class I-II NYHA classification LV failure 4. HTN 5. Hypercholesterolemia 6. History of carotid stenosis post CEA 7. Mesenteric ischemia post intervention 8. PAD post intervention PLAN: 1. Continue Verapamil SR 240 mg BID 2. Continue Imdur 30 mg BID 3. Continue Ranexa 500 mg BID 4. ACEI or ARB if clinically tolerated 5. Continue Lipitor 80 mg QHS 6. Continue Lasix 20 mg QD 7. Continue ASA 81 qd and Plavix 75 qd 8. Transthorcic echocardiography revealed normal LV systolic function with no significant valvular abnormality 9. Antibiotic course, bronchodilator, IV steroids with GI prophylaxis, O2 and smoking cessation counselling 9. Follow up with Dr. Luis Eduardo Manning, patient's concession manager upon discharge and nuclear myocardial perfusion imaging can be done as outpatient by her concession manager. Further plans are to follow Gerard Nichols MD
--- NOTE | 2016-08-04 15:00 | PN ---
Progress Note, Physician History of Present Illness: Pt less dyspneic. No chest pain or palpitations - Current Medication List Current Medications: Active Medications Acetaminophen (Tylenol -) 650 mg PO Q6H PRN PRN Reason: FEVER OR PAIN Aclidinium [place] (Tudorza -) 1 puff IH BID [facility] Last Admin: 08/04/16 10:40 Dose: 1 puff Al Hydroxide/Mg Hydroxide (Mylanta Oral Suspension -) 30 ml PO Q6H PRN PRN Reason: DYSPEPSIA Albuterol Sulfate (Ventolin 0.083% Nebulizer Soln -) 1 amp NEB Q6H PRN PRN Reason: SHORT OF BREATH/WHEEZING Last Admin: 08/04/16 09:40 Dose: 1 amp Aspirin (Asa -) 81 mg PO DAILY [facility] Last Admin: 08/04/16 10:35 Dose: 81 mg Atorvastatin Calcium (Lipitor -) 80 mg PO HS [facility] Last Admin: 08/03/16 21:03 Dose: 80 mg Clopidogrel Bisulfate (Plavix -) 75 mg PO DAILY [facility] Last Admin: 08/04/16 10:35 Dose: 75 mg Folic Acid (Folic Acid -) 1 mg PO DAILY [facility] Last Admin: 08/04/16 10:34 Dose: 1 mg Furosemide (Lasix -) 20 mg PO DAILY [facility] Last Admin: 08/04/16 10:35 Dose: 20 mg Heparin Sodium (Porcine) (Heparin -) 5,000 unit SQ BID [facility] Last Admin: 08/04/16 10:34 Dose: 5,000 unit Ceftriaxone Sodium (Rocephin 1gm Ivpb (Pre-Docked)) 50 mls @ 100 mls/hr IVPB DAILY [facility] Last Admin: 08/04/16 10:34 Dose: 100 mls/hr Azithromycin (Zithromax 500mg Ivpb (Pre-Docked)) 250 mls @ 250 mls/hr IVPB DAILY [facility] Last Admin: 08/04/16 10:35 Dose: 250 mls/hr Isosorbide Mononitrate (Imdur -) 30 mg PO BID [facility] Last Admin: 08/04/16 10:35 Dose: 30 mg Methylprednisolone Sodium Succinate (Solu-Medrol -) 40 mg IVPB Q8H-IV [facility] Montelukast Sodium (Singulair -) 10 mg PO [facility] Last Admin: 08/03/16 21:03 Dose: 10 mg Nystatin (Nystatin Oral Suspension -) 500,000 units PO Q6HPO [facility] Last Admin: 08/04/16 12:00 Dose: Not Given Ranitidine HCl (Zantac -) 150 mg PO BID [facility] Last Admin: 08/04/16 10:35 Dose: 150 mg Ranolazine (Ranexa -) 500 mg PO BID [facility] Last Admin: 08/04/16 10:35 Dose: 500 mg Sodium Chloride ([place] Nasal [place] -) 2 spray NS Q2H PRN PRN Reason: NASAL CONGESTION Verapamil HCl (Calan Sr -) 240 mg PO BID [facility] Last Admin: 08/04/16 10:35 Dose: 240 mg - Objective Vital Signs: Vital Signs Temperature 98 F 08/04/16 10:00 Pulse Rate 78 08/04/16 10:00 Respiratory Rate 22 08/04/16 10:00 Blood Pressure 145/65 08/04/16 10:00 O2 Sat by Pulse Oximetry (%) 96 08/04/16 09:40 Constitutional: Yes: No Distress Eyes: No: Sclera Icterus HENT: Yes: Atraumatic, Normocephalic Neck: Yes: Supple, Trachea Midline Cardiovascular: Yes: Regular Rate and Rhythm. No: JVD Respiratory: Yes: CTA Bilaterally Gastrointestinal: No: Soft, Tenderness Extremities: No: Calf Tenderness Edema: No Neurological: Yes: Alert, Oriented Labs: CBC, BMP 08/04/16 06:00 08/04/16 06:00 Problem List - Problems (1) Pneumonia Code(s): J18.9 - PNEUMONIA, UNSPECIFIED ORGANISM (2) COPD exacerbation Code(s): J44.1 - CHRONIC OBSTRUCTIVE PULMONARY DISEASE W (ACUTE) EXACERBATION (3) Lung nodule < 6cm on CT Code(s): R91.1 - SOLITARY PULMONARY NODULE (4) ASHD (arteriosclerotic heart disease) Code(s): I25.10 - ATHSCL HEART DISEASE OF [place] CORONARY ARTERY W/O ANG PCTRS Assessment/Plan 61year old lady with: Pnuemonia- RML consolidation and and atelectasis not present on previous CT in 2015. Low grade fever, cough, sputum production and increased dyspnea. Acute Exacerbation of COPD: respiratory status somewhat better but pt still has dyspnea on minimal exertion Lung Nodules- largest is 5 mm in RLL. No significant change in nodules on CT scans going back to 2013 suggesting they are benign. However, pt continues to smoke so at increased risk to develop lung carcinoma. ASHD-Pt has previous hx of severe CAD and peripheral vascular disease. Respiratory status improving Suggest: O2 to maintain SaO2>90 Inhaled bronchodilators Antibiotics IV steroids
[2016-08-04] MEDS: ATORVASTATIN CA 80 MG TABLET (FP) PO SCH (21:26)
[2016-08-04] MEDS: MONTELUKAST NA 10 MG TABLET PO SCH (21:26)
[2016-08-05] MEDS: NYSTATIN 500,000 UNITS/5 ML SUSPENSION PO SCH ×4 (00:10→17:33)
[2016-08-05] MEDS: methylPREDNISolone NA SUCC 40 MG/1 ML VIAL IVPB SCH ×3 (02:40→17:42)
[2016-08-05] MEDS ORDERED: PT OWN MED DRAWER 7, Y5N ONE (09:09)
[2016-08-05] MEDS: ASPIRIN 81 MG CHEWABLE TABLETS PO SCH (09:11)
[2016-08-05] MEDS: VERAPAMIL HCL 240 MG E.R. TABLET (FP) PO SCH ×2 (09:11→21:24)
[2016-08-05] MEDS: ISOSORBIDE MONONITRATE 30 MG TAB.SR.24H (FP) PO SCH ×2 (09:12→21:28)
[2016-08-05] MEDS: RANOLAZINE E.R. 500 MG TABLET (FP) PO SCH ×2 (09:12→21:28)
[2016-08-05] MEDS: HEPARIN NA (PORCINE) 5,000 UNITS/ML 1ML VIAL SQ SCH ×2 (09:12→21:28)
[2016-08-05] MEDS: FUROSEMIDE 20 MG TABLET (FP) PO SCH (09:12)
[2016-08-05] MEDS: FOLIC ACID 1 MG TABLET (FP) PO SCH (09:12)
[2016-08-05] MEDS: CLOPIDOGREL BISULFATE 75 MG TABLET (FP) PO SCH (09:12)
[2016-08-05] MEDS: RANITIDINE HCL 150 MG TABLET (FP) PO SCH ×2 (09:13→22:00)
[2016-08-05] MEDS: AZITHROMYCIN IVPB 250 ML IVPB SCH (09:13)
[2016-08-05] MEDS: ACLIDINIUM BROMIDE 400 MCG/INH AERO.POWD IH SCH ×2 (09:15→21:28)
[2016-08-05] MEDS: CEFTRIAXONE 50 ML IVPB SCH (09:35)
[2016-08-05] MEDS: ALBUTEROL SO4 0.083% IH SOL 2.5 MG/3 ML VIAL.NEB. NEB PRN ×2 (09:40→20:11)
--- NOTE | 2016-08-05 11:38 | PN ---
Progress Note, Physician Chief Complaint: still BUI, thick respiratory secretions - Current Medication List Current Medications: Active Medications Acetaminophen (Tylenol -) 650 mg PO Q6H PRN PRN Reason: FEVER OR PAIN Aclidinium [place] (Tudorza -) 1 puff IH BID [facility] Last Admin: 08/05/16 09:15 Dose: 1 puff Al Hydroxide/Mg Hydroxide (Mylanta Oral Suspension -) 30 ml PO Q6H PRN PRN Reason: DYSPEPSIA Albuterol Sulfate (Ventolin 0.083% Nebulizer Soln -) 1 amp NEB Q6H PRN PRN Reason: SHORT OF BREATH/WHEEZING Last Admin: 08/05/16 09:40 Dose: 1 amp Aspirin (Asa -) 81 mg PO DAILY [facility] Last Admin: 08/05/16 09:11 Dose: 81 mg Atorvastatin Calcium (Lipitor -) 80 mg PO [facility] Last Admin: 08/04/16 21:26 Dose: 80 mg Clopidogrel Bisulfate (Plavix -) 75 mg PO DAILY [facility] Last Admin: 08/05/16 09:12 Dose: 75 mg Folic Acid (Folic Acid -) 1 mg PO DAILY [facility] Last Admin: 08/05/16 09:12 Dose: 1 mg Furosemide (Lasix -) 20 mg PO DAILY [facility] Last Admin: 08/05/16 09:12 Dose: 20 mg Heparin Sodium (Porcine) (Heparin -) 5,000 unit SQ BID [facility] Last Admin: 08/05/16 09:12 Dose: 5,000 unit Ceftriaxone Sodium (Rocephin 1gm Ivpb (Pre-Docked)) 50 mls @ 100 mls/hr IVPB DAILY [facility] Last Admin: 08/05/16 09:35 Dose: 100 mls/hr Azithromycin (Zithromax 500mg Ivpb (Pre-Docked)) 250 mls @ 250 mls/hr IVPB DAILY [facility] Last Admin: 08/05/16 09:13 Dose: 250 mls/hr Isosorbide Mononitrate (Imdur -) 30 mg PO BID [facility] Last Admin: 08/05/16 09:12 Dose: 30 mg Methylprednisolone Sodium Succinate (Solu-Medrol -) 40 mg IVPB Q8H-IV [facility] Last Admin: 08/05/16 09:13 Dose: 40 mg Montelukast Sodium (Singulair -) 10 mg PO HS [facility] Last Admin: 08/04/16 21:26 Dose: 10 mg Nystatin (Nystatin Oral Suspension -) 500,000 units PO Q6HPO [facility] Last Admin: 08/05/16 05:36 Dose: Not Given Ranitidine HCl (Zantac -) 150 mg PO BID [facility] Last Admin: 08/05/16 09:13 Dose: 150 mg Ranolazine (Ranexa -) 500 mg PO BID [facility] Last Admin: 08/05/16 09:12 Dose: 500 mg Sodium Chloride ([place] Nasal [place] -) 2 spray NS Q2H PRN PRN Reason: NASAL CONGESTION Verapamil HCl (Calan Sr -) 240 mg PO BID [facility] Last Admin: 08/05/16 09:11 Dose: 240 mg - Objective Vital Signs: Vital Signs Temperature 98.3 F 08/05/16 10:00 Pulse Rate 69 08/05/16 10:00 Respiratory Rate 22 08/05/16 10:00 Blood Pressure 109/63 08/05/16 10:00 O2 Sat by Pulse Oximetry (%) 98 08/05/16 09:40 Constitutional: Yes: No Distress Eyes: Yes: Conjunctiva Clear HENT: Yes: Atraumatic Neck: Yes: Supple Cardiovascular: Yes: Regular Rate and Rhythm Respiratory: Yes: Wheezes (less) Gastrointestinal: Yes: Soft. No: Distention, Tenderness Genitourinary: No: CVA Tenderness - Left, CVA Tenderness - Right Musculoskeletal: No: Joint Stiffness, Joint Swelling Extremities: No: Cold, Cool Edema: No Peripheral Pulses WNL: Yes Integumentary: No: Rash, Venous Stasis Changes Neurological: Yes: WNL, Alert, Oriented ...Motor Strength: WNL Psychiatric: Yes: WNL, Alert, Oriented. No: Agitated Labs: CBC, BMP 08/04/16 06:00 08/04/16 06:00 - ....Imaging Other: Report Reviewed Assessment/Plan The patient is a 61 year old female with a significant past medical history of HTN, HLD, COPD, ASHD s/p OR, PVD, HBP, who presents to the Emergency Department with complaints of increased SOB and worsening productive cough since yesterday. She reports chest pain secondary to cough. She states that she received 5 nebulizer treatments without significant improvement. Pt reports 102 fever before admission. COPD exacerbation; URI vs PNA, h/o lung nodules h/o carotid ds and HTN diastolic CHF h/o heavy smoking and nonc/w visits and tests admit in INPT IV steroids, IV ATB cardio and pulm f/u chest CT carotids US and echo noted and d/w pt, needs f/u outpt strongly advised no smoking DVT falls PFX prognosis guarded advised to be c/w visits and tests d/w pt and staff
--- NOTE | 2016-08-05 13:02 | PN ---
Progress Note, Physician History of Present Illness: Dyspnea and wheeze on exertion slowly resolving. - Current Medication List Current Medications: Active Medications Acetaminophen (Tylenol -) 650 mg PO Q6H PRN PRN Reason: FEVER OR PAIN Aclidinium [place] (Tudorza -) 1 puff IH BID [facility] Last Admin: 08/05/16 09:15 Dose: 1 puff Al Hydroxide/Mg Hydroxide (Mylanta Oral Suspension -) 30 ml PO Q6H PRN PRN Reason: DYSPEPSIA Albuterol Sulfate (Ventolin 0.083% Nebulizer Soln -) 1 amp NEB Q6H PRN PRN Reason: SHORT OF BREATH/WHEEZING Last Admin: 08/05/16 09:40 Dose: 1 amp Aspirin (Asa -) 81 mg PO DAILY [facility] Last Admin: 08/05/16 09:11 Dose: 81 mg Atorvastatin Calcium (Lipitor -) 80 mg PO HS [facility] Last Admin: 08/04/16 21:26 Dose: 80 mg Clopidogrel Bisulfate (Plavix -) 75 mg PO DAILY [facility] Last Admin: 08/05/16 09:12 Dose: 75 mg Folic Acid (Folic Acid -) 1 mg PO DAILY [facility] Last Admin: 08/05/16 09:12 Dose: 1 mg Furosemide (Lasix -) 20 mg PO DAILY [facility] Last Admin: 08/05/16 09:12 Dose: 20 mg Heparin Sodium (Porcine) (Heparin -) 5,000 unit SQ BID [facility] Last Admin: 08/05/16 09:12 Dose: 5,000 unit Ceftriaxone Sodium (Rocephin 1gm Ivpb (Pre-Docked)) 50 mls @ 100 mls/hr IVPB DAILY [facility] Last Admin: 08/05/16 09:35 Dose: 100 mls/hr Azithromycin (Zithromax 500mg Ivpb (Pre-Docked)) 250 mls @ 250 mls/hr IVPB DAILY [facility] Last Admin: 08/05/16 09:13 Dose: 250 mls/hr Isosorbide Mononitrate (Imdur -) 30 mg PO BID [facility] Last Admin: 08/05/16 09:12 Dose: 30 mg Methylprednisolone Sodium Succinate (Solu-Medrol -) 40 mg IVPB Q8H-IV [facility] Last Admin: 08/05/16 09:13 Dose: 40 mg Montelukast Sodium (Singulair -) 10 mg PO HS [facility] Last Admin: 08/04/16 21:26 Dose: 10 mg Nystatin (Nystatin Oral Suspension -) 500,000 units PO Q6HPO [facility] Last Admin: 08/05/16 11:49 Dose: Not Given Ranitidine HCl (Zantac -) 150 mg PO BID [facility] Last Admin: 08/05/16 09:13 Dose: 150 mg Ranolazine (Ranexa -) 500 mg PO BID [facility] Last Admin: 08/05/16 09:12 Dose: 500 mg Sodium Chloride ([place] Nasal [place] -) 2 spray NS Q2H PRN PRN Reason: NASAL CONGESTION Last Admin: 08/05/16 11:50 Dose: 2 sprays Verapamil HCl (Calan Sr -) 240 mg PO BID [facility] Last Admin: 08/05/16 09:11 Dose: 240 mg - Objective Vital Signs: Vital Signs Temperature 98.3 F 08/05/16 10:00 Pulse Rate 69 08/05/16 10:00 Respiratory Rate 22 08/05/16 10:00 Blood Pressure 109/63 08/05/16 10:00 O2 Sat by Pulse Oximetry (%) 98 08/05/16 09:40 Constitutional: Yes: No Distress, Calm Neck: Yes: Supple Cardiovascular: Yes: Regular Rate and Rhythm Respiratory: Yes: Regular, Diminished, On Nasal O2, Wheezes Gastrointestinal: Yes: Normal Bowel Sounds, Soft Edema: No Labs: CBC, BMP 08/04/16 06:00 08/04/16 06:00 Problem List - Problems (1) ASHD (arteriosclerotic heart disease) Code(s): I25.10 - ATHSCL HEART DISEASE OF [place] CORONARY ARTERY W/O ANG PCTRS (2) COPD exacerbation Code(s): J44.1 - CHRONIC OBSTRUCTIVE PULMONARY DISEASE W (ACUTE) EXACERBATION (3) Pneumonia Code(s): J18.9 - PNEUMONIA, UNSPECIFIED ORGANISM (4) Coronary artery disease Code(s): I25.10 - ATHSCL HEART DISEASE OF [place] CORONARY ARTERY W/O ANG PCTRS Qualifiers: Coronary Disease-Associated Artery/Lesion type: [place] artery [place] vs. 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 Chest pain syndrome in a patient with known history of CAD post [place] angina pectoris 2. Dyspnea consistent with acute exacerbation of COPD, probable RML pneumonia and current tobacco abuse 3. Chronic diastolic LV dysfunction with class I-II NYHA classification LV failure 4. HTN 5. Hypercholesterolemia 6. History of carotid stenosis post CEA 7. Mesenteric ischemia post intervention 8. PAD post intervention PLAN: 1. Continue Verapamil SR 240 mg BID 2. Continue Imdur 30 mg BID 3. Continue Ranexa 500 mg BID 4. ACEI or ARB if clinically tolerated 5. Continue Lipitor 80 mg QHS 6. Continue Lasix 20 mg QD 7. Continue ASA 81 qd and Plavix 75 qd 8. Transthorcic echocardiography revealed normal LV systolic function with no significant valvular abnormality 9. Antibiotic course, bronchodilator, Singulair, steroid taper with DVT and GI prophylaxis, O2 and smoking cessation counselling 9. Follow up with Dr. Luis Eduardo Manning, patient's business librarian upon discharge and nuclear myocardial perfusion imaging can be done as outpatient by her business librarian.
--- NOTE | 2016-08-05 13:21 | PN ---
Progress Note, Physician History of Present Illness: Pt still has dyspnea.No chest pain or palpitations - Current Medication List Current Medications: Active Medications Acetaminophen (Tylenol -) 650 mg PO Q6H PRN PRN Reason: FEVER OR PAIN Aclidinium [place] (Tudorza -) 1 puff IH BID [facility] Last Admin: 08/05/16 09:15 Dose: 1 puff Al Hydroxide/Mg Hydroxide (Mylanta Oral Suspension -) 30 ml PO Q6H PRN PRN Reason: DYSPEPSIA Albuterol Sulfate (Ventolin 0.083% Nebulizer Soln -) 1 amp NEB Q6H PRN PRN Reason: SHORT OF BREATH/WHEEZING Last Admin: 08/05/16 09:40 Dose: 1 amp Aspirin (Asa -) 81 mg PO DAILY [facility] Last Admin: 08/05/16 09:11 Dose: 81 mg Atorvastatin Calcium (Lipitor -) 80 mg PO HS [facility] Last Admin: 08/04/16 21:26 Dose: 80 mg Clopidogrel Bisulfate (Plavix -) 75 mg PO DAILY [facility] Last Admin: 08/05/16 09:12 Dose: 75 mg Folic Acid (Folic Acid -) 1 mg PO DAILY [facility] Last Admin: 08/05/16 09:12 Dose: 1 mg Furosemide (Lasix -) 20 mg PO DAILY [facility] Last Admin: 08/05/16 09:12 Dose: 20 mg Heparin Sodium (Porcine) (Heparin -) 5,000 unit SQ BID [facility] Last Admin: 08/05/16 09:12 Dose: 5,000 unit Ceftriaxone Sodium (Rocephin 1gm Ivpb (Pre-Docked)) 50 mls @ 100 mls/hr IVPB DAILY [facility] Last Admin: 08/05/16 09:35 Dose: 100 mls/hr Azithromycin (Zithromax 500mg Ivpb (Pre-Docked)) 250 mls @ 250 mls/hr IVPB DAILY [facility] Last Admin: 08/05/16 09:13 Dose: 250 mls/hr Isosorbide Mononitrate (Imdur -) 30 mg PO BID [facility] Last Admin: 08/05/16 09:12 Dose: 30 mg Methylprednisolone Sodium Succinate (Solu-Medrol -) 40 mg IVPB Q8H-IV [facility] Last Admin: 08/05/16 09:13 Dose: 40 mg Montelukast Sodium (Singulair -) 10 mg PO HS [facility] Last Admin: 08/04/16 21:26 Dose: 10 mg Nystatin (Nystatin Oral Suspension -) 500,000 units PO Q6HPO [facility] Last Admin: 08/05/16 11:49 Dose: Not Given Ranitidine HCl (Zantac -) 150 mg PO BID [facility] Last Admin: 08/05/16 09:13 Dose: 150 mg Ranolazine (Ranexa -) 500 mg PO BID [facility] Last Admin: 08/05/16 09:12 Dose: 500 mg Sodium Chloride ([place] Nasal [place] -) 2 spray NS Q2H PRN PRN Reason: NASAL CONGESTION Last Admin: 08/05/16 11:50 Dose: 2 sprays Verapamil HCl (Calan Sr -) 240 mg PO BID [facility] Last Admin: 08/05/16 09:11 Dose: 240 mg - Objective Vital Signs: Vital Signs Temperature 98.3 F 08/05/16 10:00 Pulse Rate 69 08/05/16 10:00 Respiratory Rate 22 08/05/16 10:00 Blood Pressure 109/63 08/05/16 10:00 O2 Sat by Pulse Oximetry (%) 98 08/05/16 09:40 Constitutional: Yes: No Distress Eyes: No: Sclera Icterus HENT: Yes: Atraumatic, Normocephalic Neck: Yes: Supple, Trachea Midline Cardiovascular: Yes: Regular Rate and Rhythm. No: JVD Respiratory: Yes: Wheezes (bilateral) Gastrointestinal: Yes: Soft. No: Tenderness Extremities: No: Calf Tenderness Edema: Yes Neurological: Yes: Alert, Oriented Labs: CBC, BMP 08/04/16 06:00 08/04/16 06:00 Problem List - Problems (1) Pneumonia Code(s): J18.9 - PNEUMONIA, UNSPECIFIED ORGANISM (2) COPD exacerbation Code(s): J44.1 - CHRONIC OBSTRUCTIVE PULMONARY DISEASE W (ACUTE) EXACERBATION (3) Lung nodule < 6cm on CT Code(s): R91.1 - SOLITARY PULMONARY NODULE (4) ASHD (arteriosclerotic heart disease) Code(s): I25.10 - ATHSCL HEART DISEASE OF [place] CORONARY ARTERY W/O ANG PCTRS Assessment/Plan 61year old lady with: Pnuemonia- RML consolidation and and atelectasis not present on previous CT in 2015. Acute Exacerbation of COPD: respiratory status somewhat better but pt still has dyspnea on minimal exertion Lung Nodules- largest is 5 mm in RLL. No significant change in nodules on CT scans going back to 2013 suggesting they are benign. However, pt continues to smoke so at increased risk to develop lung carcinoma. ASHD-Pt has previous hx of severe CAD and peripheral vascular disease. Respiratory status slowly improving: still significant dyspnea Suggest: O2 to maintain SaO2>90 Inhaled bronchodilators Antibiotics IV steroids
[2016-08-05] MEDS: ATORVASTATIN CA 80 MG TABLET (FP) PO SCH (21:28)
[2016-08-05] MEDS: MONTELUKAST NA 10 MG TABLET PO SCH (21:28)
[2016-08-06] MEDS: MAG HYDROX/AL HYDROX/SIMETH 30 ML UNIT-DOSE CUP PO PRN ×2 (00:19→23:40)
[2016-08-06] MEDS: NYSTATIN 500,000 UNITS/5 ML SUSPENSION PO SCH ×4 (00:19→17:05)
[2016-08-06] MEDS: methylPREDNISolone NA SUCC 40 MG/1 ML VIAL IVPB SCH ×3 (02:23→17:01)
[2016-08-06] MEDS: ASPIRIN 81 MG CHEWABLE TABLETS PO SCH (10:26)
[2016-08-06] MEDS: RANOLAZINE E.R. 500 MG TABLET (FP) PO SCH ×2 (10:27→21:17)
[2016-08-06] MEDS: CLOPIDOGREL BISULFATE 75 MG TABLET (FP) PO SCH (10:27)
[2016-08-06] MEDS: FUROSEMIDE 20 MG TABLET (FP) PO SCH (10:27)
[2016-08-06] MEDS: FOLIC ACID 1 MG TABLET (FP) PO SCH (10:27)
[2016-08-06] MEDS: ISOSORBIDE MONONITRATE 30 MG TAB.SR.24H (FP) PO SCH ×2 (10:27→21:17)
[2016-08-06] MEDS: VERAPAMIL HCL 240 MG E.R. TABLET (FP) PO SCH ×2 (10:27→21:17)
[2016-08-06] MEDS: RANITIDINE HCL 150 MG TABLET (FP) PO SCH ×2 (10:28→21:17)
[2016-08-06] MEDS: ACLIDINIUM BROMIDE 400 MCG/INH AERO.POWD IH SCH ×2 (10:28→21:19)
[2016-08-06] MEDS: AZITHROMYCIN IVPB 250 ML IVPB SCH (10:28)
[2016-08-06] MEDS: CEFTRIAXONE 50 ML IVPB SCH (11:56)
[2016-08-06] MEDS: HEPARIN NA (PORCINE) 5,000 UNITS/ML 1ML VIAL SQ SCH ×2 (11:56→21:17)
--- NOTE | 2016-08-06 14:09 | PN ---
Progress Note, Physician History of Present Illness: Continued dyspnea and wheeze on exertion slowly resolving. - Current Medication List Current Medications: Active Medications Acetaminophen (Tylenol -) 650 mg PO Q6H PRN PRN Reason: FEVER OR PAIN Aclidinium [place] (Tudorza -) 1 puff IH BID [facility] Last Admin: 08/06/16 10:28 Dose: 1 puff Al Hydroxide/Mg Hydroxide (Mylanta Oral Suspension -) 30 ml PO Q6H PRN PRN Reason: DYSPEPSIA Last Admin: 08/06/16 00:19 Dose: 30 ml Aspirin (Asa -) 81 mg PO DAILY [facility] Last Admin: 08/06/16 10:26 Dose: 81 mg Atorvastatin Calcium (Lipitor -) 80 mg PO HS [facility] Last Admin: 08/05/16 21:28 Dose: 80 mg Clopidogrel Bisulfate (Plavix -) 75 mg PO DAILY [facility] Last Admin: 08/06/16 10:27 Dose: 75 mg Folic Acid (Folic Acid -) 1 mg PO DAILY [facility] Last Admin: 08/06/16 10:27 Dose: 1 mg Furosemide (Lasix -) 20 mg PO DAILY [facility] Last Admin: 08/06/16 10:27 Dose: 20 mg Heparin Sodium (Porcine) (Heparin -) 5,000 unit SQ BID [facility] Last Admin: 08/06/16 11:56 Dose: 5,000 unit Ceftriaxone Sodium (Rocephin 1gm Ivpb (Pre-Docked)) 50 mls @ 100 mls/hr IVPB DAILY [facility] Last Admin: 08/06/16 11:56 Dose: 100 mls/hr Azithromycin (Zithromax 500mg Ivpb (Pre-Docked)) 250 mls @ 250 mls/hr IVPB DAILY [facility] Last Admin: 08/06/16 10:28 Dose: 250 mls/hr Isosorbide Mononitrate (Imdur -) 30 mg PO BID [facility] Last Admin: 08/06/16 10:27 Dose: 30 mg Methylprednisolone Sodium Succinate (Solu-Medrol -) 40 mg IVPB Q8H-IV [facility] Last Admin: 08/06/16 10:28 Dose: 40 mg Montelukast Sodium (Singulair -) 10 mg PO HS [facility] Last Admin: 08/05/16 21:28 Dose: 10 mg Nystatin (Nystatin Oral Suspension -) 500,000 units PO Q6HPO [facility] Last Admin: 08/06/16 11:58 Dose: Not Given Ranitidine HCl (Zantac -) 150 mg PO BID [facility] Last Admin: 08/06/16 10:28 Dose: 150 mg Ranolazine (Ranexa -) 500 mg PO BID [facility] Last Admin: 08/06/16 10:27 Dose: 500 mg Sodium Chloride ([place] Nasal [place] -) 2 spray NS Q2H PRN PRN Reason: NASAL CONGESTION Last Admin: 08/05/16 11:50 Dose: 2 sprays Verapamil HCl (Calan Sr -) 240 mg PO BID [facility] Last Admin: 08/06/16 10:27 Dose: 240 mg - Objective Vital Signs: Vital Signs Temperature 98.6 F 08/06/16 10:00 Pulse Rate 72 08/06/16 11:53 Respiratory Rate 20 08/06/16 10:00 Blood Pressure 128/56 08/06/16 10:00 O2 Sat by Pulse Oximetry (%) 98 08/06/16 11:53 Constitutional: Yes: No Distress, Calm Neck: Yes: Supple Cardiovascular: Yes: Regular Rate and Rhythm Respiratory: Yes: Regular, Diminished, On Nasal O2, Wheezes Gastrointestinal: Yes: Normal Bowel Sounds, Soft, Abdomen, Obese Edema: No Labs: CBC, BMP 08/04/16 06:00 08/04/16 06:00 Problem List - Problems (1) ASHD (arteriosclerotic heart disease) Code(s): I25.10 - ATHSCL HEART DISEASE OF [place] CORONARY ARTERY W/O ANG PCTRS (2) COPD exacerbation Code(s): J44.1 - CHRONIC OBSTRUCTIVE PULMONARY DISEASE W (ACUTE) EXACERBATION (3) Pneumonia Code(s): J18.9 - PNEUMONIA, UNSPECIFIED ORGANISM (4) Coronary artery disease Code(s): I25.10 - ATHSCL HEART DISEASE OF [place] CORONARY ARTERY W/O ANG PCTRS Qualifiers: Coronary Disease-Associated Artery/Lesion type: [place] artery [place] vs. 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 Chest pain syndrome in a patient with known history of CAD post [place] angina pectoris 2. Dyspnea consistent with acute exacerbation of COPD, probable RML pneumonia and current tobacco abuse 3. Chronic diastolic LV dysfunction with class I-II NYHA classification LV failure 4. HTN 5. Hypercholesterolemia 6. History of carotid stenosis post CEA 7. Mesenteric ischemia post intervention 8. PAD post intervention PLAN: 1. Continue Verapamil SR 240 mg BID 2. Continue Imdur 30 mg BID 3. Continue Ranexa 500 mg BID 4. ACEI or ARB if clinically tolerated 5. Continue Lipitor 80 mg QHS 6. Continue Lasix 20 mg QD 7. Continue ASA 81 qd and Plavix 75 qd. 8. Antibiotic course, bronchodilator, Singulair, slow IV steroid taper with DVT and GI prophylaxis, O2 and smoking cessation counselling 9. Follow up with Dr. Luis Eduardo Manning, patient's poultry hatchery man upon discharge and nuclear myocardial perfusion imaging can be done as outpatient by her poultry hatchery man.
[2016-08-06] MEDS ORDERED: ALBUTEROL SO4 0.083% IH SOL 2.5 MG/3 ML VIAL.NEB. NEB ONE (14:28)
--- NOTE | 2016-08-06 15:50 | PN ---
[id number] Current Medications: Active Medications Acetaminophen (Tylenol -) 650 mg PO Q6H PRN PRN Reason: FEVER OR PAIN Aclidinium [place] (Tudorza -) 1 puff IH BID [facility] Last Admin: 08/06/16 10:28 Dose: 1 puff Al Hydroxide/Mg Hydroxide (Mylanta Oral Suspension -) 30 ml PO Q6H PRN PRN Reason: DYSPEPSIA Last Admin: 08/06/16 00:19 Dose: 30 ml Albuterol Sulfate (Ventolin 0.083% Nebulizer Soln -) 1 amp NEB Q6H PRN PRN Reason: SHORT OF BREATH/WHEEZING Aspirin (Asa -) 81 mg PO DAILY [facility] Last Admin: 08/06/16 10:26 Dose: 81 mg Atorvastatin Calcium (Lipitor -) 80 mg PO HS [facility] Last Admin: 08/05/16 21:28 Dose: 80 mg Clopidogrel Bisulfate (Plavix -) 75 mg PO DAILY [facility] Last Admin: 08/06/16 10:27 Dose: 75 mg Folic Acid (Folic Acid -) 1 mg PO DAILY [facility] Last Admin: 08/06/16 10:27 Dose: 1 mg Furosemide (Lasix -) 20 mg PO DAILY [facility] Last Admin: 08/06/16 10:27 Dose: 20 mg Heparin Sodium (Porcine) (Heparin -) 5,000 unit SQ BID [facility] Last Admin: 08/06/16 11:56 Dose: 5,000 unit Ceftriaxone Sodium (Rocephin 1gm Ivpb (Pre-Docked)) 50 mls @ 100 mls/hr IVPB DAILY [facility] Last Admin: 08/06/16 11:56 Dose: 100 mls/hr Azithromycin (Zithromax 500mg Ivpb (Pre-Docked)) 250 mls @ 250 mls/hr IVPB DAILY [facility] Last Admin: 08/06/16 10:28 Dose: 250 mls/hr Isosorbide Mononitrate (Imdur -) 30 mg PO BID [facility] Last Admin: 08/06/16 10:27 Dose: 30 mg Methylprednisolone Sodium Succinate (Solu-Medrol -) 40 mg IVPB Q8H-IV [facility] Last Admin: 08/06/16 10:28 Dose: 40 mg Montelukast Sodium (Singulair -) 10 mg PO HS [facility] Last Admin: 08/05/16 21:28 Dose: 10 mg Nystatin (Nystatin Oral Suspension -) 500,000 units PO Q6HPO [facility] Last Admin: 08/06/16 11:58 Dose: Not Given Ranitidine HCl (Zantac -) 150 mg PO BID [facility] Last Admin: 08/06/16 10:28 Dose: 150 mg Ranolazine (Ranexa -) 500 mg PO BID [facility] Last Admin: 08/06/16 10:27 Dose: 500 mg Sodium Chloride ([place] Nasal [place] -) 2 spray NS Q2H PRN PRN Reason: NASAL CONGESTION Last Admin: 08/05/16 11:50 Dose: 2 sprays Verapamil HCl (Calan Sr -) 240 mg PO BID [facility] Last Admin: 08/06/16 10:27 Dose: 240 mg - Objective Vital Signs: Vital Signs Temperature 98.2 F 08/06/16 14:00 Pulse Rate 77 08/06/16 14:00 Respiratory Rate 22 08/06/16 14:00 Blood Pressure 104/55 08/06/16 14:00 O2 Sat by Pulse Oximetry (%) 98 08/06/16 11:53 Constitutional: Yes: No Distress Eyes: Yes: Conjunctiva Clear HENT: Yes: Atraumatic Neck: Yes: Supple Cardiovascular: Yes: Regular Rate and Rhythm Respiratory: Yes: Wheezes Gastrointestinal: Yes: Soft. No: Distention, Tenderness Genitourinary: No: CVA Tenderness - Left, CVA Tenderness - Right Musculoskeletal: No: Joint Stiffness, Joint Swelling Extremities: No: Cold, Cool Edema: No Peripheral Pulses WNL: Yes Integumentary: No: Rash, Venous Stasis Changes Neurological: Yes: WNL, Alert, Oriented ...Motor Strength: WNL Psychiatric: Yes: WNL, Alert, Oriented. No: Agitated, Suicidal Ideation Labs: CBC, BMP 08/04/16 06:00 08/04/16 06:00 - ....Imaging Other: Report Reviewed Assessment/Plan The patient is a 61 year old female with a significant past medical history of HTN, HLD, COPD, ASHD s/p [place], PVD, HBP, who presents to the Emergency Department with complaints of increased SOB and worsening productive cough since yesterday. She reports chest pain secondary to cough. She states that she received 5 nebulizer treatments without significant improvement. Pt reports 102 fever before admission. COPD exacerbation; URI vs PNA, h/o lung nodules h/o carotid ds and HTN diastolic CHF h/o heavy smoking and nonc/w visits and tests admit in INPT IV steroids, IV ATB cardio and pulm f/u chest CT carotids US and echo noted and d/w pt, needs f/u outpt strongly advised no smoking DVT falls PFX prognosis guarded advised to be c/w visits and tests d/w pt and staff
[2016-08-06] MEDS: ALBUTEROL SO4 0.083% IH SOL 2.5 MG/3 ML VIAL.NEB. NEB PRN (16:21)
--- NOTE | 2016-08-06 17:18 | PN ---
Progress Note, Physician History of Present Illness: Pt still has dyspnea.No chest pain or palpitations. Complains of trouble swallowing pills - Current Medication List Current Medications: Active Medications Acetaminophen (Tylenol -) 650 mg PO Q6H PRN PRN Reason: FEVER OR PAIN Aclidinium [place] (Tudorza -) 1 puff IH BID [facility] Last Admin: 08/06/16 10:28 Dose: 1 puff Al Hydroxide/Mg Hydroxide (Mylanta Oral Suspension -) 30 ml PO Q6H PRN PRN Reason: DYSPEPSIA Last Admin: 08/06/16 00:19 Dose: 30 ml Albuterol Sulfate (Ventolin 0.083% Nebulizer Soln -) 1 amp NEB Q6H PRN PRN Reason: SHORT OF BREATH/WHEEZING Last Admin: 08/06/16 16:21 Dose: 1 amp Aspirin (Asa -) 81 mg PO DAILY [facility] Last Admin: 08/06/16 10:26 Dose: 81 mg Atorvastatin Calcium (Lipitor -) 80 mg PO HS [facility] Last Admin: 08/05/16 21:28 Dose: 80 mg Clopidogrel Bisulfate (Plavix -) 75 mg PO DAILY [facility] Last Admin: 08/06/16 10:27 Dose: 75 mg Folic Acid (Folic Acid -) 1 mg PO DAILY [facility] Last Admin: 08/06/16 10:27 Dose: 1 mg Furosemide (Lasix -) 20 mg PO DAILY [facility] Last Admin: 08/06/16 10:27 Dose: 20 mg Heparin Sodium (Porcine) (Heparin -) 5,000 unit SQ BID [facility] Last Admin: 08/06/16 11:56 Dose: 5,000 unit Ceftriaxone Sodium (Rocephin 1gm Ivpb (Pre-Docked)) 50 mls @ 100 mls/hr IVPB DAILY [facility] Last Admin: 08/06/16 11:56 Dose: 100 mls/hr Azithromycin (Zithromax 500mg Ivpb (Pre-Docked)) 250 mls @ 250 mls/hr IVPB DAILY [facility] Last Admin: 08/06/16 10:28 Dose: 250 mls/hr Isosorbide Mononitrate (Imdur -) 30 mg PO BID [facility] Last Admin: 08/06/16 10:27 Dose: 30 mg Methylprednisolone Sodium Succinate (Solu-Medrol -) 40 mg IVPB Q8H-IV [facility] Last Admin: 08/06/16 17:01 Dose: 40 mg Montelukast Sodium (Singulair -) 10 mg PO HS [facility] Last Admin: 08/05/16 21:28 Dose: 10 mg Nystatin (Nystatin Oral Suspension -) 500,000 units PO Q6HPO [facility] Last Admin: 08/06/16 17:05 Dose: 500,000 units Ranitidine HCl (Zantac -) 150 mg PO BID [facility] Last Admin: 08/06/16 10:28 Dose: 150 mg Ranolazine (Ranexa -) 500 mg PO BID [facility] Last Admin: 08/06/16 10:27 Dose: 500 mg Sodium Chloride ([place] Nasal [place] -) 2 spray NS Q2H PRN PRN Reason: NASAL CONGESTION Last Admin: 08/05/16 11:50 Dose: 2 sprays Verapamil HCl (Calan Sr -) 240 mg PO BID [facility] Last Admin: 08/06/16 10:27 Dose: 240 mg - Objective Vital Signs: Vital Signs Temperature 98.2 F 08/06/16 14:00 Pulse Rate 77 08/06/16 14:00 Respiratory Rate 22 08/06/16 14:00 Blood Pressure 104/55 08/06/16 14:00 O2 Sat by Pulse Oximetry (%) 98 08/06/16 11:53 Constitutional: Yes: No Distress Eyes: No: Sclera Icterus HENT: Yes: Atraumatic, Normocephalic. No: Pharyngeal Erythema, Thrush, Tonsillar Exudate Neck: Yes: Supple, Trachea Midline Cardiovascular: Yes: Regular Rate and Rhythm. No: JVD Respiratory: Yes: Wheezes (bilateral) Gastrointestinal: Yes: Soft. No: Tenderness Extremities: No: Calf Tenderness Edema: No Neurological: Yes: Alert, Oriented Labs: CBC, BMP 08/04/16 06:00 08/04/16 06:00 Problem List - Problems (1) Pneumonia Code(s): J18.9 - PNEUMONIA, UNSPECIFIED ORGANISM (2) COPD exacerbation Code(s): J44.1 - CHRONIC OBSTRUCTIVE PULMONARY DISEASE W (ACUTE) EXACERBATION (3) Lung nodule < 6cm on CT Code(s): R91.1 - SOLITARY PULMONARY NODULE (4) ASHD (arteriosclerotic heart disease) Code(s): I25.10 - ATHSCL HEART DISEASE OF [place] CORONARY ARTERY W/O ANG PCTRS Assessment/Plan 61year old lady with: Pnuemonia- RML consolidation and and atelectasis not present on previous CT in 2015. Acute Exacerbation of COPD: respiratory status somewhat better but pt still has dyspnea on mild exertion Lung Nodules- largest is 5 mm in RLL. No significant change in nodules on CT scans going back to 2013 suggesting they are benign. However, pt continues to smoke so at increased risk to develop lung carcinoma. ASHD-Pt has previous hx of severe CAD and peripheral vascular disease. Respiratory status slowly improving: still significant dyspnea Suggest: O2 to maintain SaO2>90 Inhaled bronchodilators Antibiotics IV steroids
[2016-08-06] MEDS ORDERED: PT OWN MED DRAWER 7, Y5N ONE (21:11)
[2016-08-06] MEDS: MONTELUKAST NA 10 MG TABLET PO SCH (21:17)
[2016-08-06] MEDS: ATORVASTATIN CA 80 MG TABLET (FP) PO SCH (21:17)
[2016-08-07] MEDS: NYSTATIN 500,000 UNITS/5 ML SUSPENSION PO SCH ×4 (00:10→17:27)
[2016-08-07] MEDS: methylPREDNISolone NA SUCC 40 MG/1 ML VIAL IVPB SCH ×3 (01:46→17:27)
[2016-08-07] MEDS: ALBUTEROL SO4 0.083% IH SOL 2.5 MG/3 ML VIAL.NEB. NEB PRN ×2 (08:49→14:20)
[2016-08-07] MEDS ORDERED: PT OWN MED DRAWER 7, Y5N ONE ×2 (09:20→21:47)
[2016-08-07] MEDS: HEPARIN NA (PORCINE) 5,000 UNITS/ML 1ML VIAL SQ SCH ×2 (09:24→21:53)
[2016-08-07] MEDS: ISOSORBIDE MONONITRATE 30 MG TAB.SR.24H (FP) PO SCH ×2 (09:25→21:53)
[2016-08-07] MEDS: FOLIC ACID 1 MG TABLET (FP) PO SCH (09:25)
[2016-08-07] MEDS: ACLIDINIUM BROMIDE 400 MCG/INH AERO.POWD IH SCH ×2 (09:25→21:54)
[2016-08-07] MEDS: CEFTRIAXONE 50 ML IVPB SCH (09:25)
[2016-08-07] MEDS: ASPIRIN 81 MG CHEWABLE TABLETS PO SCH (09:25)
[2016-08-07] MEDS: CLOPIDOGREL BISULFATE 75 MG TABLET (FP) PO SCH (09:25)
[2016-08-07] MEDS: FUROSEMIDE 20 MG TABLET (FP) PO SCH (09:25)
[2016-08-07] MEDS: RANITIDINE HCL 150 MG TABLET (FP) PO SCH ×2 (09:25→21:54)
[2016-08-07] MEDS: RANOLAZINE E.R. 500 MG TABLET (FP) PO SCH ×2 (09:25→21:54)
[2016-08-07] MEDS: VERAPAMIL HCL 240 MG E.R. TABLET (FP) PO SCH ×2 (09:25→21:52)
[2016-08-07] MEDS: AZITHROMYCIN IVPB 250 ML IVPB SCH (10:56)
--- NOTE | 2016-08-07 14:54 | PN ---
Progress Note, Physician History of Present Illness: Dyspnea and wheeze on exertion improved today. - Current Medication List Current Medications: Active Medications Acetaminophen (Tylenol -) 650 mg PO Q6H PRN PRN Reason: FEVER OR PAIN Aclidinium [place] (Tudorza -) 1 puff IH BID [facility] Last Admin: 08/07/16 09:25 Dose: 1 puff Al Hydroxide/Mg Hydroxide (Mylanta Oral Suspension -) 30 ml PO Q6H PRN PRN Reason: DYSPEPSIA Last Admin: 08/06/16 23:40 Dose: 30 ml Albuterol Sulfate (Ventolin 0.083% Nebulizer Soln -) 1 amp NEB Q6H PRN PRN Reason: SHORT OF BREATH/WHEEZING Last Admin: 08/07/16 08:49 Dose: 1 amp Aspirin (Asa -) 81 mg PO DAILY [facility] Last Admin: 08/07/16 09:25 Dose: 81 mg Atorvastatin Calcium (Lipitor -) 80 mg PO HS [facility] Last Admin: 08/06/16 21:17 Dose: 80 mg Clopidogrel Bisulfate (Plavix -) 75 mg PO DAILY [facility] Last Admin: 08/07/16 09:25 Dose: 75 mg Folic Acid (Folic Acid -) 1 mg PO DAILY [facility] Last Admin: 08/07/16 09:25 Dose: 1 mg Furosemide (Lasix -) 20 mg PO DAILY [facility] Last Admin: 08/07/16 09:25 Dose: 20 mg Heparin Sodium (Porcine) (Heparin -) 5,000 unit SQ BID [facility] Last Admin: 08/07/16 09:24 Dose: 5,000 unit Ceftriaxone Sodium (Rocephin 1gm Ivpb (Pre-Docked)) 50 mls @ 100 mls/hr IVPB DAILY [facility] Last Admin: 08/07/16 09:25 Dose: 100 mls/hr Azithromycin (Zithromax 500mg Ivpb (Pre-Docked)) 250 mls @ 250 mls/hr IVPB DAILY [facility] Last Admin: 08/07/16 10:56 Dose: 250 mls/hr Isosorbide Mononitrate (Imdur -) 30 mg PO BID [facility] Last Admin: 08/07/16 09:25 Dose: 30 mg Methylprednisolone Sodium Succinate (Solu-Medrol -) 40 mg IVPB Q8H-IV [facility] Last Admin: 08/07/16 09:25 Dose: 40 mg Montelukast Sodium (Singulair -) 10 mg PO HS [facility] Last Admin: 08/06/16 21:17 Dose: 10 mg Nystatin (Nystatin Oral Suspension -) 500,000 units PO Q6HPO [facility] Last Admin: 08/07/16 13:22 Dose: 500,000 units Ranitidine HCl (Zantac -) 150 mg PO BID [facility] Last Admin: 08/07/16 09:25 Dose: 150 mg Ranolazine (Ranexa -) 500 mg PO BID [facility] Last Admin: 08/07/16 09:25 Dose: 500 mg Sodium Chloride ([place] Nasal [place] -) 2 spray NS Q2H PRN PRN Reason: NASAL CONGESTION Last Admin: 08/05/16 11:50 Dose: 2 sprays Verapamil HCl (Calan Sr -) 240 mg PO BID [facility] Last Admin: 08/07/16 09:25 Dose: 240 mg - Objective Vital Signs: Vital Signs Temperature 98.5 F 08/07/16 09:38 Pulse Rate 65 08/07/16 09:38 Respiratory Rate 20 08/07/16 09:38 Blood Pressure 99/44 08/07/16 09:38 O2 Sat by Pulse Oximetry (%) 98 08/07/16 08:49 Constitutional: Yes: No Distress, Calm Neck: Yes: Supple Cardiovascular: Yes: Regular Rate and Rhythm Respiratory: Yes: Regular, Diminished, On Nasal O2, Wheezes Gastrointestinal: Yes: Normal Bowel Sounds, Soft Edema: No Labs: CBC, BMP 08/04/16 06:00 08/04/16 06:00 Problem List - Problems (1) ASHD (arteriosclerotic heart disease) Code(s): I25.10 - ATHSCL HEART DISEASE OF [place] CORONARY ARTERY W/O ANG PCTRS (2) COPD exacerbation Code(s): J44.1 - CHRONIC OBSTRUCTIVE PULMONARY DISEASE W (ACUTE) EXACERBATION (3) Pneumonia Code(s): J18.9 - PNEUMONIA, UNSPECIFIED ORGANISM (4) Coronary artery disease Code(s): I25.10 - ATHSCL HEART DISEASE OF [place] CORONARY ARTERY W/O ANG PCTRS Qualifiers: Coronary Disease-Associated Artery/Lesion type: [place] artery [place] vs. 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 CAD h/o [place], angina pectoris 2. Dyspnea consistent with acute exacerbation of COPD, probable RML pneumonia and current tobacco abuse 3. Chronic diastolic LV dysfunction with class I-II NYHA classification LV failure 4. HTN 5. Hypercholesterolemia 6. History of carotid stenosis post CEA 7. Mesenteric ischemia post intervention 8. PAD post intervention PLAN: 1. Continue Verapamil SR 240 mg BID 2. Continue Imdur 30 mg BID 3. Continue Ranexa 500 mg BID 4. ACEI or ARB if clinically tolerated 5. Continue Lipitor 80 mg QHS 6. Continue Lasix 20 mg QD 7. Continue ASA 81 qd and Plavix 75 qd. 8. Antibiotic course, bronchodilator, Singulair, slow IV steroid taper with DVT and GI prophylaxis, O2 and smoking cessation counselling 9. Follow up with Dr. 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
[2016-08-07] MEDS: ATORVASTATIN CA 80 MG TABLET (FP) PO SCH (21:53)
[2016-08-07] MEDS: MONTELUKAST NA 10 MG TABLET PO SCH (21:54)
--- NOTE | 2016-08-07 22:35 | PN ---
Progress Note, Physician Chief Complaint: less cough, does not want sq heparin, ambulates OK; aware of DVT PE risks - Current Medication List Current Medications: Active Medications Acetaminophen (Tylenol -) 650 mg PO Q6H PRN PRN Reason: FEVER OR PAIN Aclidinium [place] (Tudorza -) 1 puff IH BID [facility] Last Admin: 08/07/16 21:54 Dose: 1 puff Al Hydroxide/Mg Hydroxide (Mylanta Oral Suspension -) 30 ml PO Q6H PRN PRN Reason: DYSPEPSIA Last Admin: 08/06/16 23:40 Dose: 30 ml Albuterol Sulfate (Ventolin 0.083% Nebulizer Soln -) 1 amp NEB Q6H PRN PRN Reason: SHORT OF BREATH/WHEEZING Last Admin: 08/07/16 14:20 Dose: 1 amp Aspirin (Asa -) 81 mg PO DAILY [facility] Last Admin: 08/07/16 09:25 Dose: 81 mg Atorvastatin Calcium (Lipitor -) 80 mg PO HS [facility] Last Admin: 08/07/16 21:53 Dose: 80 mg Clopidogrel Bisulfate (Plavix -) 75 mg PO DAILY [facility] Last Admin: 08/07/16 09:25 Dose: 75 mg Folic Acid (Folic Acid -) 1 mg PO DAILY [facility] Last Admin: 08/07/16 09:25 Dose: 1 mg Furosemide (Lasix -) 20 mg PO DAILY [facility] Last Admin: 08/07/16 09:25 Dose: 20 mg Heparin Sodium (Porcine) (Heparin -) 5,000 unit SQ BID [facility] Last Admin: 08/07/16 21:53 Dose: 5,000 unit Ceftriaxone Sodium (Rocephin 1gm Ivpb (Pre-Docked)) 50 mls @ 100 mls/hr IVPB DAILY [facility] Last Admin: 08/07/16 09:25 Dose: 100 mls/hr Azithromycin (Zithromax 500mg Ivpb (Pre-Docked)) 250 mls @ 250 mls/hr IVPB DAILY [facility] Last Admin: 08/07/16 10:56 Dose: 250 mls/hr Isosorbide Mononitrate (Imdur -) 30 mg PO BID [facility] Last Admin: 08/07/16 21:53 Dose: 30 mg Methylprednisolone Sodium Succinate (Solu-Medrol -) 40 mg IVPB Q8H-IV [facility] Last Admin: 08/07/16 17:27 Dose: 40 mg Montelukast Sodium (Singulair -) 10 mg PO HS [facility] Last Admin: 08/07/16 21:54 Dose: 10 mg Nystatin (Nystatin Oral Suspension -) 500,000 units PO Q6HPO [facility] Last Admin: 08/07/16 17:27 Dose: 500,000 units Ranitidine HCl (Zantac -) 150 mg PO BID [facility] Last Admin: 08/07/16 21:54 Dose: 150 mg Ranolazine (Ranexa -) 500 mg PO BID [facility] Last Admin: 08/07/16 21:54 Dose: 500 mg Sodium Chloride ([place] Nasal [place] -) 2 spray NS Q2H PRN PRN Reason: NASAL CONGESTION Last Admin: 08/05/16 11:50 Dose: 2 sprays Verapamil HCl (Calan Sr -) 240 mg PO BID [facility] Last Admin: 08/07/16 21:52 Dose: 240 mg - Objective Vital Signs: Vital Signs Temperature 98.4 F 08/07/16 17:30 Pulse Rate 74 08/07/16 17:30 Respiratory Rate 20 08/07/16 17:30 Blood Pressure 146/55 08/07/16 17:30 O2 Sat by Pulse Oximetry (%) 98 08/07/16 09:00 Constitutional: Yes: No Distress Eyes: Yes: Conjunctiva Clear HENT: Yes: Atraumatic Neck: Yes: Supple Cardiovascular: Yes: Regular Rate and Rhythm Respiratory: Yes: Wheezes Gastrointestinal: Yes: Soft Musculoskeletal: No: Joint Stiffness, Joint Swelling Extremities: No: Cold, Cool Edema: No Integumentary: No: Rash, Venous Stasis Changes Neurological: Yes: WNL, Alert, Oriented ...Motor Strength: WNL Psychiatric: Yes: WNL, Alert, Oriented. No: Agitated Labs: CBC, BMP 08/04/16 06:00 08/04/16 06:00 - ....Imaging Other: Report Reviewed Assessment/Plan The patient is a 61 year old female with a significant past medical history of HTN, HLD, COPD, ASHD s/p [place], PVD, HBP, who presents to the Emergency Department with complaints of increased SOB and worsening productive cough since yesterday. She reports chest pain secondary to cough. She states that she received 5 nebulizer treatments without significant improvement. Pt reports 102 fever before admission. COPD exacerbation; URI vs PNA, h/o lung nodules h/o carotid ds and HTN diastolic CHF h/o heavy smoking and nonc/w visits and tests admit in INPT IV steroids, IV ATB cardio and pulm f/u chest CT carotids US and echo noted and d/w pt, needs f/u outpt strongly advised no smoking DVT falls PFX prognosis guarded advised to be c/w visits and tests d/w pt and staff
[2016-08-08] MEDS: MAG HYDROX/AL HYDROX/SIMETH 30 ML UNIT-DOSE CUP PO PRN ×3 (00:10→18:23)
[2016-08-08] MEDS: NYSTATIN 500,000 UNITS/5 ML SUSPENSION PO SCH ×4 (00:10→17:47)
[2016-08-08] MEDS: methylPREDNISolone NA SUCC 40 MG/1 ML VIAL IVPB SCH ×3 (01:35→17:47)
[2016-08-08 08:06] LABS: MCH 28.1 pg (25.7-33.7); MCHC 33.3 g/dl (32.0-36.0); MEAN CELL VOLUME 84.4 fl (80-96); PLATELET COUNT 360 K/MM3 (134-434); WHITE BLOOD COUNT 15.6 K/mm3 (4.0-10.0)
[2016-08-08 09:30] LABS: PLATELET COMMENT2 NO CLOTTING DETECTED; PLATELET ESTIMATE ADEQUATE (NORMAL)
[2016-08-08 09:44] LABS: ALBUMIN 2.8 g/dl (3.4-5.0); ANION GAP 0 (8-16); CALCIUM 7.7 mg/dL (8.5-10.1); CO2 28 mmol/L (21-32); GLUCOSE,RANDOM 144 mg/dL (74-106)
[2016-08-08 09:47] LABS: ALK PHOS 53 U/L (45-117); BILIRUBIN,TOTAL 0.3 mg/dL (0.2-1.0); CREATININE 0.7 mg/dL (0.55-1.02); SGPT/ALT 24 U/L (12-78); TOT PROT 5.1 g/dl (6.4-8.2)
[2016-08-08 09:50] LABS: SGOT/AST 17 U/L (15-37)
[2016-08-08] MEDS ORDERED: PT OWN MED DRAWER 7, Y5N ONE (11:11)
[2016-08-08] MEDS: HEPARIN NA (PORCINE) 5,000 UNITS/ML 1ML VIAL SQ SCH (11:18)
[2016-08-08] MEDS: VERAPAMIL HCL 240 MG E.R. TABLET (FP) PO SCH ×2 (11:23→21:39)
[2016-08-08] MEDS: ISOSORBIDE MONONITRATE 30 MG TAB.SR.24H (FP) PO SCH ×2 (11:23→21:39)
[2016-08-08] MEDS: CLOPIDOGREL BISULFATE 75 MG TABLET (FP) PO SCH (11:24)
[2016-08-08] MEDS: RANITIDINE HCL 150 MG TABLET (FP) PO SCH ×2 (11:24→21:39)
[2016-08-08] MEDS: FOLIC ACID 1 MG TABLET (FP) PO SCH (11:24)
[2016-08-08] MEDS: FUROSEMIDE 20 MG TABLET (FP) PO SCH (11:25)
[2016-08-08] MEDS: RANOLAZINE E.R. 500 MG TABLET (FP) PO SCH ×2 (11:25→21:38)
[2016-08-08] MEDS: CEFTRIAXONE 50 ML IVPB SCH (11:26)
[2016-08-08] MEDS: ASPIRIN 81 MG CHEWABLE TABLETS PO SCH (11:26)
[2016-08-08] MEDS: ACLIDINIUM BROMIDE 400 MCG/INH AERO.POWD IH SCH ×2 (11:27→21:36)
[2016-08-08] MEDS: AZITHROMYCIN IVPB 250 ML IVPB SCH (11:27)
[2016-08-08 12:28] LABS: MCHC 32.4 g/dl (32.0-36.0); MEAN CELL VOLUME 86.3 fl (80-96); MEAN PLT VOLUME 6.9 fl (7.5-11.1); PLATELET COUNT 429 K/MM3 (134-434); RDW 16.1 % (11.6-15.6); WHITE BLOOD COUNT 22.3 K/mm3 (4.0-10.0)
[2016-08-08 12:43] LABS: CALCIUM 8.4 mg/dL (8.5-10.1); CREATININE 0.7 mg/dL (0.55-1.02)
[2016-08-08 14:00] LABS: METAMYELOCYTE 1 % (0-2)
[2016-08-08 14:01] LABS: PLATELET COMMENT2 NO CLOTTING DETECTED; PLATELET ESTIMATE ADEQUATE (NORMAL)
--- NOTE | 2016-08-08 15:38 | PN ---
Progress Note, Physician History of Present Illness: Abd discomfort with elevated WBC, f/u abd ct scan. Slowly improving dyspnea and wheezing. - Current Medication List Current Medications: Active Medications Acetaminophen (Tylenol -) 650 mg PO Q6H PRN PRN Reason: FEVER OR PAIN Aclidinium [place] (Tudorza -) 1 puff IH BID [facility] Last Admin: 08/08/16 11:27 Dose: 1 puff Al Hydroxide/Mg Hydroxide (Mylanta Oral Suspension -) 30 ml PO Q6H PRN PRN Reason: DYSPEPSIA Last Admin: 08/08/16 11:28 Dose: 30 ml Albuterol Sulfate (Ventolin 0.083% Nebulizer Soln -) 1 amp NEB Q6H PRN PRN Reason: SHORT OF BREATH/WHEEZING Last Admin: 08/07/16 14:20 Dose: 1 amp Aspirin (Asa -) 81 mg PO DAILY [facility] Last Admin: 08/08/16 11:26 Dose: 81 mg Atorvastatin [place] (Lipitor -) 80 mg PO HS [facility] Last Admin: 08/07/16 21:53 Dose: 80 mg Clopidogrel Bisulfate (Plavix -) 75 mg PO DAILY [facility] Last Admin: 08/08/16 11:24 Dose: 75 mg Folic Acid (Folic Acid -) 1 mg PO DAILY [facility] Last Admin: 08/08/16 11:24 Dose: 1 mg Furosemide (Lasix -) 20 mg PO DAILY [facility] Last Admin: 08/08/16 11:25 Dose: 20 mg Ceftriaxone Sodium (Rocephin 1gm Ivpb (Pre-Docked)) 50 mls @ 100 mls/hr IVPB DAILY [facility] Last Admin: 08/08/16 11:26 Dose: 100 mls/hr Azithromycin (Zithromax 500mg Ivpb (Pre-Docked)) 250 mls @ 250 mls/hr IVPB DAILY [facility] Last Admin: 08/08/16 11:27 Dose: 250 mls/hr Isosorbide Mononitrate (Imdur -) 30 mg PO BID [facility] Last Admin: 08/08/16 11:23 Dose: 30 mg Methylprednisolone Sodium Succinate (Solu-Medrol -) 40 mg IVPB Q8H-IV [facility] Last Admin: 08/08/16 11:26 Dose: 40 mg Montelukast Sodium (Singulair -) 10 mg PO HS [facility] Last Admin: 08/07/16 21:54 Dose: 10 mg Nystatin (Nystatin Oral Suspension -) 500,000 units PO Q6HPO [facility] Last Admin: 08/08/16 11:28 Dose: 500,000 units Ranitidine HCl (Zantac -) 150 mg PO BID [facility] Last Admin: 08/08/16 11:24 Dose: 150 mg Ranolazine (Ranexa -) 500 mg PO BID [facility] Last Admin: 08/08/16 11:25 Dose: 500 mg Sodium Chloride ([place] Nasal [place] -) 2 spray NS Q2H PRN PRN Reason: NASAL CONGESTION Last Admin: 08/05/16 11:50 Dose: 2 sprays Verapamil HCl (Calan Sr -) 240 mg PO BID [facility] Last Admin: 08/08/16 11:23 Dose: 240 mg - Objective Vital Signs: Vital Signs Temperature 98.3 F 08/08/16 14:14 Pulse Rate 69 08/08/16 14:14 Respiratory Rate 19 08/08/16 14:14 Blood Pressure 109/46 08/08/16 14:14 O2 Sat by Pulse Oximetry (%) 98 08/07/16 09:00 Constitutional: Yes: No Distress, Calm Neck: Yes: Supple Cardiovascular: Yes: Regular Rate and Rhythm Respiratory: Yes: Regular, Diminished, On Nasal O2, Wheezes Gastrointestinal: Yes: Normal Bowel Sounds, Soft Edema: No Labs: CBC, BMP 08/08/16 12:00 08/08/16 12:00 - ....Imaging Chest X-ray: Report Reviewed (NAD) Problem List - Problems (1) ASHD (arteriosclerotic heart disease) Code(s): I25.10 - ATHSCL HEART DISEASE OF [place] CORONARY ARTERY W/O ANG PCTRS (2) COPD exacerbation Code(s): J44.1 - CHRONIC OBSTRUCTIVE PULMONARY DISEASE W (ACUTE) EXACERBATION (3) Pneumonia Code(s): J18.9 - PNEUMONIA, UNSPECIFIED ORGANISM (4) Coronary artery disease Code(s): I25.10 - ATHSCL HEART DISEASE OF [place] CORONARY ARTERY W/O ANG PCTRS Qualifiers: Coronary Disease-Associated Artery/Lesion type: [place] artery [place] vs. 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 CAD h/o [place], angina pectoris 2. Dyspnea consistent with acute exacerbation of COPD, probable RML pneumonia and current tobacco abuse 3. Chronic diastolic LV dysfunction with class I-II NYHA classification LV failure 4. HTN 5. Hypercholesterolemia 6. History of carotid stenosis post CEA 7. Mesenteric ischemia post intervention 8. PAD post intervention 9. Anemia PLAN: 1. Continue Verapamil SR 240 mg BID 2. Continue Imdur 30 mg BID 3. Continue Ranexa 500 mg BID 4. ACEI or ARB if clinically tolerated 5. Continue Lipitor 80 mg QHS 6. Continue Lasix 20 mg QD 7. Continue ASA 81 qd and Plavix 75 qd. 8. Antibiotic course, bronchodilator, Singulair, slow IV steroid taper with DVT and GI prophylaxis, O2 and smoking cessation counselling 9. F/u abd/pelvic CT 10. Follow up with Dr. Luis Eduardo Manning, patient's coding compliance specialist upon discharge and nuclear myocardial perfusion imaging can be done as outpatient by her coding compliance specialist.
--- NOTE | 2016-08-08 16:45 | PN ---
Progress Note, Physician Chief Complaint: pt c/o some low thoracic pain and chest tightness with moving and deep breathing ; no SOB; also had some epigatric pain and GERD; did not notice any blood in stools or urine or when brushing her teeth; Hg 7.4 then repeated 8.2 no obvious source of bleeding, but has multiple small superficial abdominal bruises at the sq heparin site, yesterday had a larger bruise on her upper L arm (no fall or trauma) d/w staff yesterday over the phone to hold sq heparin but she still got it last night; did not receive it this am; VSS no hypoTA no tachycardia - Current Medication List Current Medications: Active Medications Acetaminophen (Tylenol -) 650 mg PO Q6H PRN PRN Reason: FEVER OR PAIN Aclidinium [place] (Tudorza -) 1 puff IH BID [facility] Last Admin: 08/08/16 11:27 Dose: 1 puff Al Hydroxide/Mg Hydroxide (Mylanta Oral Suspension -) 30 ml PO Q6H PRN PRN Reason: DYSPEPSIA Last Admin: 08/08/16 11:28 Dose: 30 ml Albuterol Sulfate (Ventolin 0.083% Nebulizer Soln -) 1 amp NEB Q6H PRN PRN Reason: SHORT OF BREATH/WHEEZING Last Admin: 08/07/16 14:20 Dose: 1 amp Aspirin (Asa -) 81 mg PO DAILY [facility] Last Admin: 08/08/16 11:26 Dose: 81 mg Atorvastatin Calcium (Lipitor -) 80 mg PO HS [facility] Last Admin: 08/07/16 21:53 Dose: 80 mg Clopidogrel Bisulfate (Plavix -) 75 mg PO DAILY [facility] Last Admin: 08/08/16 11:24 Dose: 75 mg Folic Acid (Folic Acid -) 1 mg PO DAILY [facility] Last Admin: 08/08/16 11:24 Dose: 1 mg Furosemide (Lasix -) 20 mg PO DAILY [facility] Last Admin: 08/08/16 11:25 Dose: 20 mg Ceftriaxone Sodium (Rocephin 1gm Ivpb (Pre-Docked)) 50 mls @ 100 mls/hr IVPB DAILY [facility] Last Admin: 08/08/16 11:26 Dose: 100 mls/hr Azithromycin (Zithromax 500mg Ivpb (Pre-Docked)) 250 mls @ 250 mls/hr IVPB DAILY [facility] Last Admin: 08/08/16 11:27 Dose: 250 mls/hr Isosorbide Mononitrate (Imdur -) 30 mg PO BID [facility] Last Admin: 08/08/16 11:23 Dose: 30 mg Methylprednisolone Sodium Succinate (Solu-Medrol -) 40 mg IVPB Q8H-IV [facility] Last Admin: 08/08/16 11:26 Dose: 40 mg Montelukast Sodium (Singulair -) 10 mg PO HS [facility] Last Admin: 08/07/16 21:54 Dose: 10 mg Nystatin (Nystatin Oral Suspension -) 500,000 units PO Q6HPO [facility] Last Admin: 08/08/16 11:28 Dose: 500,000 units Ranitidine HCl (Zantac -) 150 mg PO BID [facility] Last Admin: 08/08/16 11:24 Dose: 150 mg Ranolazine (Ranexa -) 500 mg PO BID [facility] Last Admin: 08/08/16 11:25 Dose: 500 mg Sodium Chloride ([place] Nasal [place] -) 2 spray NS Q2H PRN PRN Reason: NASAL CONGESTION Last Admin: 08/05/16 11:50 Dose: 2 sprays Verapamil HCl (Calan Sr -) 240 mg PO BID [facility] Last Admin: 08/08/16 11:23 Dose: 240 mg - Objective Vital Signs: Vital Signs Temperature 98.3 F 08/08/16 14:14 Pulse Rate 69 08/08/16 14:14 Respiratory Rate 19 08/08/16 14:14 Blood Pressure 109/46 08/08/16 14:14 O2 Sat by Pulse Oximetry (%) 98 08/07/16 09:00 Constitutional: Yes: No Distress, Calm Eyes: Yes: Conjunctiva Clear HENT: Yes: Atraumatic Neck: Yes: Supple Cardiovascular: Yes: Regular Rate and Rhythm Respiratory: Yes: Wheezes Gastrointestinal: Yes: Soft. No: Distention, Tenderness Genitourinary: No: CVA Tenderness - Left, CVA Tenderness - Right, Hematuria Musculoskeletal: No: Joint Stiffness, Joint Swelling Extremities: Yes: Other (LUE echymoses). No: Cold, Cool Edema: No Peripheral Pulses WNL: Yes Neurological: Yes: WNL, Alert, Oriented ...Motor Strength: WNL Psychiatric: Yes: WNL, Alert, Oriented. No: Agitated Labs: CBC, BMP 08/08/16 12:00 08/08/16 12:00 - ....Imaging Other: Report Reviewed Assessment/Plan The patient is a 61 year old female with a significant past medical history of HTN, HLD, COPD, ASHD s/p [place], PVD, HBP, who presents to the Emergency Department with complaints of increased SOB and worsening productive cough since yesterday. She reports chest pain secondary to cough. She states that she received 5 nebulizer treatments without significant improvement. Pt reports 102 fever before admission. COPD exacerbation; URI vs PNA, h/o lung nodules h/o carotid ds and HTN diastolic CHF h/o heavy smoking IV steroids, IV ATB cardio and pulm f/u drop H&H superficial abdominal bruises and LUE bruise; heparin sq stopped; ASA and Plavix to hold until abdomen CT done r/o bleed; f/u CBC, might need blood transfusion. DVT falls PFX prognosis guarded d/w pt and staff, t time 40 min
[2016-08-08] MEDS: ALBUTEROL SO4 0.083% IH SOL 2.5 MG/3 ML VIAL.NEB. NEB PRN (18:30)
[2016-08-08] MEDS: ATORVASTATIN CA 80 MG TABLET (FP) PO SCH (21:38)
[2016-08-08] MEDS: MONTELUKAST NA 10 MG TABLET PO SCH (21:39)
[2016-08-09] MEDS: NYSTATIN 500,000 UNITS/5 ML SUSPENSION PO SCH ×4 (00:13→18:17)
[2016-08-09] MEDS: MAG HYDROX/AL HYDROX/SIMETH 30 ML UNIT-DOSE CUP PO PRN ×3 (00:14→12:53)
[2016-08-09] MEDS: methylPREDNISolone NA SUCC 40 MG/1 ML VIAL IVPB SCH ×3 (01:03→18:18)
[2016-08-09] MEDS: ALBUTEROL SO4 0.083% IH SOL 2.5 MG/3 ML VIAL.NEB. NEB PRN ×4 (07:15→23:02)
[2016-08-09 08:40] LABS: MCHC 32.6 g/dl (32.0-36.0); MEAN PLT VOLUME 6.9 fl (7.5-11.1); PLATELET COUNT 355 K/MM3 (134-434); RDW 16.2 % (11.6-15.6); WHITE BLOOD COUNT 16.7 K/mm3 (4.0-10.0)
[2016-08-09 09:16] LABS: ALBUMIN 2.8 g/dl (3.4-5.0); ALK PHOS 47 U/L (45-117); ANION GAP 10 (8-16); BILIRUBIN,TOTAL 0.4 mg/dL (0.2-1.0); CO2 27 mmol/L (21-32); CREATININE 0.7 mg/dL (0.55-1.02); GLUCOSE,RANDOM 135 mg/dL (74-106); SGOT/AST 11 U/L (15-37); SGPT/ALT 27 U/L (12-78)
[2016-08-09 09:21] LABS: INR 1.02 (0.82-1.09); PROTHROMBIN TIME (PATIENT) 11.2 SEC (9.98-11.88)
[2016-08-09 09:24] LABS: ACTIVATED PTT 22.8 SECONDS (26.9-34.4)
[2016-08-09] MEDS: CEFTRIAXONE 50 ML IVPB SCH (09:37)
[2016-08-09] MEDS: AZITHROMYCIN IVPB 250 ML IVPB SCH (09:40)
[2016-08-09] MEDS: FUROSEMIDE 20 MG TABLET (FP) PO SCH (09:41)
[2016-08-09] MEDS: ISOSORBIDE MONONITRATE 30 MG TAB.SR.24H (FP) PO SCH ×2 (09:41→21:41)
[2016-08-09] MEDS: RANOLAZINE E.R. 500 MG TABLET (FP) PO SCH ×2 (09:41→21:41)
[2016-08-09] MEDS: RANITIDINE HCL 150 MG TABLET (FP) PO SCH (09:41)
[2016-08-09] MEDS: ACLIDINIUM BROMIDE 400 MCG/INH AERO.POWD IH SCH ×2 (09:42→21:41)
[2016-08-09] MEDS: VERAPAMIL HCL 240 MG E.R. TABLET (FP) PO SCH ×2 (09:42→21:41)
[2016-08-09] MEDS: FOLIC ACID 1 MG TABLET (FP) PO SCH (09:42)
[2016-08-09 09:58] LABS: METAMYELOCYTE 1 % (0-2)
--- NOTE | 2016-08-09 10:42 | CONSULT ---
Consult Consult Specialty:: Gastroenterology Referred by:: Dr. Cohn Reason for Consultation:: Anemia - History of Present Illness Chief Complaint: Cough, difficulty breathing, acid reflux and epigastric pain History of Present Illness: 61W admitted for respiratory difficulties is noted to have a dropping Hct. She reports that she has acid reflux and epigastric burning discomfort whenever she is bolused with steroids. She denies any overt GI bleeding. She has multiple ecchymoses. Her Plavix and aspirin have been held. She resumed smoking over the holidays when she became depressed. Margarita has a h/o mesenteric ischemia and abdominal pain which resolved after Dr Francois did a left iliac artery to SMA bypass as well as a left common iliac endarterectomy. She last had an EGD and colonoscopy with my associate Dr Ayers on 08/29/09 which revealed a large hiatal hernia and short segment Sue's esophagus, moderate gastritis and prominent rugal folds in the antrum and duodenum that were not abnormal histologically - History Source History Provided By: Patient Limitations to Obtaining History: No Limitations - Past Medical History Cardio/Vascular: Yes: CAD, HTN, [place] (2011 transferred to [facility], no stents, told of ? Prinzmetal angina? ), Other (left ventricular end diastolic dysfunction, peripheral and carotid vascular disease ) Pulmonary: Yes: Asthma, COPD Gastrointestinal: Yes: Diverticulosis, Gastritis, GERD (with short segment Barretts), Hiatal Hernia, Other (Mesenteric ischemia treated with SMA bypass 2012. Incisional hernia.) Renal/: Yes: Renal Failure (required dialysis for several weeks following contrast induced renal fauilure after [place] in 2011) Heme/Onc: Yes: Anemia Psych: Yes: Anxiety, Depression Endocrine: Yes: Other (Euthyroid goiter) - Past Surgical History Past Surgical History: Yes: Carotid Endarterectomy, Cholecystectomy, Colonoscopy , Upper Endoscopy Additional Surgical History: 2012 left iliac artery to SMA bypass as well as a left common iliac endarterectomy. 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 Place of : [facility] History of Recent Travel: No Home Medications - Allergies Allergies/Adverse Reactions: Allergies Allergy/AdvReac Type Severity Reaction Status Date / Time No Known Drug Allergies Allergy Verified 07/31/16 17:03 - Home Medications Home Medications: Ambulatory Orders Albuterol 2.5/Ipratropium 0.5 [Duoneb -] 1 neb NEB Q4H PRN #0 vial 12/27/12 Aspirin [ASA -] 81 mg PO DAILY #0 tab.chew 12/27/12 Atorvastatin Calcium [Lipitor] 80 mg PO HS #0 tablet 12/27/12 Clopidogrel Bisulfate [Plavix -] 75 mg PO DAILY #0 tablet 12/27/12 Folic Acid - 1 mg PO DAILY #0 tablet 12/27/12 Furosemide [Lasix -] 20 mg PO DAILY #0 tablet 12/27/12 Isosorbide Mononitrate [Imdur] 30 mg PO BID #0 tab.sr.24h 12/27/12 Montelukast Na [Singulair -] 10 mg PO HS #0 tablet 12/27/12 Ranitidine [Zantac -] 150 mg PO DAILY #0 tablet 12/27/12 Tiotropium [place] [Spiriva] 1 inh IH DAILY #0 inh 12/27/12 Verapamil HCl ER [Calan Sr -] 180 mg PO BID #0 tablet.er 12/27/12 Fluticasone Prop 0.05% Nasal [Flonase -] 1 - 2 spray NS BID #1 spray.pump Acetaminophen [Tylenol .Regular Strength -] 650 mg PO Q6H PRN #0 tablet Mag Hydrox/Al Hydrox/Simeth [Mylanta Oral Suspension -] 30 ml PO Q6H PRN #0 cup 04/16/15 Sodium Chloride Nasal [place] [[place] Nasal [place] -] 2 spray NS Q2H PRN #0 bottle 04/16/15 Nystatin Oral Suspension - [Nystatin Oral Susp 225888 Units/5 ML -] 500,000 units PO Q6HPO 14 Days 04/17/15 Family Disease History - Family Disease History Family Disease History: Heart Disease: Father ( 73 of melanoma), Mother ( 73 of COPD), Brother ( of throat cancer), CA: Father, Brother, Respiratory: Mother Review of Systems - Review of Systems Constitutional: reports: Weakness Eyes: reports: No Symptoms HENT: reports: No Symptoms Neck: reports: No Symptoms Cardiovascular: reports: Chest Pain, Shortness of Breath Respiratory: reports: Cough, Exercise Intolerance, SOB, SOB on Exertion Gastrointestinal: reports: Abdominal Pain, Other (Acid reflux) Neurological: reports: No Symptoms Hematology/Lymphatic: reports: Easily Bruised Psychiatric: reports: Anxiety, Depression Physical Exam-GI Vital Signs: Vital Signs Temperature 97.6 F 08/09/16 09:29 Pulse Rate 78 08/09/16 09:29 Respiratory Rate 18 08/09/16 09:29 Blood Pressure 129/62 08/09/16 09:29 O2 Sat by Pulse Oximetry (%) 99 08/08/16 21:00 CBC,CMP WBC 16.7 K/mm3 (4.0-10.0) H 08/09/16 07:00 RBC 2.51 M/mm3 (3.60-5.2) L 08/09/16 07:00 Hgb 7.0 GM/dL (10.7-15.3) L D 08/09/16 07:00 Hct 21.6 % (32.4-45.2) L 08/09/16 07:00 MCV 86.0 fl (80-96) 08/09/16 07:00 MCHC 32.6 g/dl (32.0-36.0) 08/09/16 07:00 RDW 16.2 % (11.6-15.6) H 08/09/16 07:00 Plt Count 355 K/MM3 (134-434) 08/09/16 07:00 MPV 6.9 fl (7.5-11.1) L 08/09/16 07:00 Neutrophils % 86.0 % (42.8-82.8) H 08/09/16 07:00 Lymphocytes % 5.0 % (8-40) L D 08/09/16 07:00 Monocytes % 4.0 % (3.8-10.2) D 08/09/16 07:00 Eosinophils % 0.0 % (0-4.5) 08/04/16 06:00 Basophils % 0.0 % (0-2.0) 08/04/16 06:00 Band Neutrophils 1.0 % (0-10) D 08/09/16 07:00 Metamyelocytes 1 % (0-2) 08/09/16 07:00 Myelocytes 3 % (0-2) H D 08/09/16 07:00 Differential Comment Manual diff done 08/09/16 07:00 Platelet Estimate Adequate (NORMAL) 08/08/16 12:00 Platelet Comment No clumping noted 08/08/16 12:00 Platelet Comment No clotting detected 08/08/16 12:00 Sodium 136 mmol/L (136-145) 08/09/16 07:00 Potassium 4.8 mmol/L (3.5-5.1) 08/09/16 07:00 Chloride 99 mmol/L (98-107) 08/09/16 07:00 Carbon Dioxide 27 mmol/L (21-32) 08/09/16 07:00 Anion Gap 10 (8-16) 08/09/16 07:00 BUN 26 mg/dL (7-18) H 08/09/16 07:00 Creatinine 0.7 mg/dL (0.55-1.02) 08/09/16 07:00 Creat Clearance w eGFR > 60 (>60) 08/09/16 07:00 Random Glucose 135 mg/dL (74-106) H 08/09/16 07:00 Calcium 8.0 mg/dL (8.5-10.1) L 08/09/16 07:00 Magnesium 2.5 mg/dL (1.8-2.4) H 08/02/16 06:00 Total Bilirubin 0.4 mg/dL (0.2-1.0) D 08/09/16 07:00 AST 11 U/L (15-37) L D 08/09/16 07:00 ALT 27 U/L (12-78) 08/09/16 07:00 Alkaline Phosphatase 47 U/L (45-117) 08/09/16 07:00 Creatine Kinase 92 IU/L (26-192) 08/02/16 06:00 B-Natriuretic Peptide 1221.89 pg/ml (5-125) H 08/02/16 06:00 Total Protein 5.0 g/dl (6.4-8.2) L 08/09/16 07:00 Albumin 2.8 g/dl (3.4-5.0) L 08/09/16 07:00 Triglycerides 62 mg/dL (35-160) D 08/02/16 06:00 Cholesterol 162 mg/dL (50-200) 08/02/16 06:00 Total LDL Cholesterol 76 mg/dL (5-100) 08/02/16 06:00 HDL Cholesterol 72 mg/dL (40-60) H 08/02/16 06:00 TSH 0.03 uIU/ml (0.358-3.74) L D 08/03/16 06:00 Free T4 1.05 ng/dl (0.76-1.46) 08/03/16 06:00 Free T3 2.3 pg/ml (2.0-4.4) 08/03/16 06:00 Current Medications Generic Name Dose Route Start Last Admin Trade Name Freq PRN Reason Stop Dose Admin Acetaminophen 650 mg 07/31/16 23:55 Tylenol - PO Q6H PRN FEVER OR PAIN Aclidinium [place] 1 puff 08/01/16 10:00 08/09/16 09:42 Tudorza - IH 1 puff BID [facility] Administration Al Hydroxide/Mg Hydroxide 30 ml 07/31/16 23:56 08/09/16 06:00 Mylanta Oral Suspension - PO 30 ml Q6H PRN Administration DYSPEPSIA Albuterol Sulfate 1 amp 08/06/16 15:27 08/09/16 07:15 Ventolin 0.083% Nebulizer Soln - NEB 1 amp Q6H PRN Administration SHORT OF BREATH/WHEEZING Aspirin 81 mg 08/01/16 10:00 08/08/16 11:26 Asa - PO 81 mg DAILY [facility] Administration Atorvastatin Calcium 80 mg 08/01/16 01:00 08/08/16 21:38 Lipitor - PO 80 mg HS [facility] Administration Clopidogrel Bisulfate 75 mg 08/01/16 10:00 08/08/16 11:24 Plavix - PO 75 mg DAILY [facility] Administration Folic Acid 1 mg 08/01/16 10:00 08/09/16 09:42 Folic Acid - PO 1 mg DAILY [facility] Administration Furosemide 20 mg 08/01/16 10:00 08/09/16 09:41 Lasix - PO 20 mg DAILY [facility] Administration Ceftriaxone Sodium 50 mls @ 100 mls/hr 08/01/16 10:00 08/09/16 09:37 Rocephin 1gm Ivpb (Pre-Docked) IVPB 100 mls/hr DAILY [facility] Administration Azithromycin 250 mls @ 250 mls/hr 08/01/16 10:00 08/09/16 09:40 Zithromax 500mg Ivpb (Pre-Docked) IVPB 250 mls/hr DAILY [facility] Administration Isosorbide Mononitrate 30 mg 08/02/16 22:00 08/09/16 09:41 Imdur - PO 30 mg BID [facility] Administration Methylprednisolone Sodium Succinate 40 mg 08/04/16 18:00 08/09/16 09:41 Solu-Medrol - IVPB 40 mg Q8H-IV [facility] Administration Montelukast Sodium 10 mg 08/01/16 01:00 08/08/16 21:39 Singulair - PO 10 mg HS [facility] Administration Nystatin 500,000 units 08/02/16 00:00 08/09/16 05:55 Nystatin Oral Suspension - PO 500,000 units Q6HPO [facility] Administration Ranitidine HCl 150 mg 08/01/16 22:00 08/09/16 09:41 Zantac - PO 150 mg BID [facility] Administration Ranolazine 500 mg 08/02/16 22:00 08/09/16 09:41 Ranexa - PO 500 mg BID [facility] Administration Sodium Chloride 2 spray 07/31/16 23:56 08/05/16 11:50 [place] Nasal [place] - NS 2 sprays Q2H PRN Administration NASAL CONGESTION Verapamil HCl 240 mg 08/02/16 22:00 08/09/16 09:42 Calan Sr - PO 240 mg BID [facility] Administration Constitutional: Yes: Anxious Eyes: Yes: Conjunctiva Clear HENT: Yes: Atraumatic Neck: Yes: Supple Cardiovascular: Yes: Regular Rate and Rhythm Respiratory: Yes: Rhonchi (fine scattered bilaterally) Gastrointestinal Inspection: Yes: Scars (healed oblique RUG and long oblique left lower abdomen to flank incision with hernia), Other (multiple ecchymoses) ...Auscultate: Yes: Normoactive Bowel Sounds ...Palpate: Yes: Soft, Other (nontender) ...Rectal Exam: Yes: Guaiac Positive, Other (no masses) Edema: No Labs: CBC, BMP 08/09/16 07:00 08/09/16 07:00 INR, PTT INR 1.02 (0.82-1.09) 08/09/16 07:00 Laboratory Tests 07/31/16 08/04/16 08/08/16 18:23 06:00 06:15 Hgb 13.8 D 11.2 7.4 L D Total Bilirubin AST ALT Alkaline Phosphatase Albumin 08/08/16 08/09/16 08/09/16 12:00 07:00 07:00 Hgb 8.2 L D 7.0 L D Total Bilirubin 0.4 D AST 11 L D ALT 27 Alkaline Phosphatase 47 Albumin 2.8 L Problem List - Problems (1) Occult blood in stools Code(s): R19.5 - OTHER FECAL ABNORMALITIES (2) Sue esophagus Code(s): K22.70 - SUE'S ESOPHAGUS WITHOUT DYSPLASIA (3) Diverticula of colon Code(s): K57.30 - DVRTCLOS OF LG INT W/O PERFORATION OR ABSCESS W/O BLEEDING Assessment/Plan 61W has a significant drop in Hct with multiple ecchymoses. Although these may account for some off the drop her occult bleeding indicates a GI source of bleeding as contributing. Potential bleeding sources include vascular ectasias, erosive GERD or perhaps esophageal cancer conversion given her Sue's esophagus, erosive gastritis or duodenitis or ulcer disease ( ? Vipul ulcers given her large hiatal hernia) or malignancy among others. I have proposed both an EGD and a colonoscopy but am not sure that she can tolerate the procedures or the preparation given her pulmonary issues. I have informed her of the potential risks of perforation and hemorrhage as well as her pulmonary risks and the thromboembolic risks that arise of her Plavix is withheld for an 8 day period. She is on a position to make an informed consent but wants to discuss it with Dr Ayala and Dr Cohn before proceeding. Will empirically will start a pantoprazole drip.
[2016-08-09 12:37] LABS: BASOPHIL 0.2 % (0-2.0); MCH 28.2 pg (25.7-33.7); MCHC 32.8 g/dl (32.0-36.0); NEUTROPHILS 91.9 % (42.8-82.8); PLATELET COUNT 542 K/MM3 (134-434); RDW 16.8 % (11.6-15.6); WHITE BLOOD COUNT 28.5 K/mm3 (4.0-10.0)
--- NOTE | 2016-08-09 12:47 | PN ---
Progress Note, Physician Chief Complaint: coughing and wheezing; has some constipation; no GERD or CP or SOB at rest but has BUI with minimal exertion (just going to the bathroom) same as before (at admission). Seen by GI, has trace guiac positive stools. Abdomen CT no intraabdominal bleed; heavily calcified vessels and ATS and mesenteric ischemia s/p bypass, will need vascular f/u. No abdominal pain. Pt Feels very nervous and shaky. OFF sq heparin, ASA and Plavix held today. Abdominal and LUE bruises soft and smaller today. Refused blood transfusion yesterday; Hg 7.4 then 8.3; today 7.0 again, dw pt still reluctant to get blood; will repeat CBC also LDH, retics, Iron, if Hg 7 range advised to take blood (d/w pt risks of severe anemia given her ASHD, carotid ds, severe ATS, h/o ARF on HD few years ago etc) she said she will think about it. D/w nurse was on on duty few days ago when I ordered over the phone to hold sq heparin sec to abdominal bruises, and to apply SCD or TEDs to legs, she said she did not stop it because pt refused TEDs and SCDs and she preferred to continue sq heparin at that time. - Current Medication List Current Medications: Active Medications Acetaminophen (Tylenol -) 650 mg PO Q6H PRN PRN Reason: FEVER OR PAIN Aclidinium [place] (Tudorza -) 1 puff IH BID [facility] Last Admin: 08/09/16 09:42 Dose: 1 puff Al Hydroxide/Mg Hydroxide (Mylanta Oral Suspension -) 30 ml PO Q6H PRN PRN Reason: DYSPEPSIA Last Admin: 08/09/16 06:00 Dose: 30 ml Albuterol Sulfate (Ventolin 0.083% Nebulizer Soln -) 1 amp NEB Q6H PRN PRN Reason: SHORT OF BREATH/WHEEZING Last Admin: 08/09/16 11:28 Dose: 1 amp Aspirin (Asa -) 81 mg PO DAILY [facility] Last Admin: 08/08/16 11:26 Dose: 81 mg Atorvastatin Calcium (Lipitor -) 80 mg PO HS [facility] Last Admin: 08/08/16 21:38 Dose: 80 mg Clopidogrel Bisulfate (Plavix -) 75 mg PO DAILY [facility] Last Admin: 08/08/16 11:24 Dose: 75 mg Folic Acid (Folic Acid -) 1 mg PO DAILY [facility] Last Admin: 08/09/16 09:42 Dose: 1 mg Furosemide (Lasix -) 20 mg PO DAILY [facility] Last Admin: 08/09/16 09:41 Dose: 20 mg Ceftriaxone Sodium (Rocephin 1gm Ivpb (Pre-Docked)) 50 mls @ 100 mls/hr IVPB DAILY [facility] Last Admin: 08/09/16 09:37 Dose: 100 mls/hr Azithromycin (Zithromax 500mg Ivpb (Pre-Docked)) 250 mls @ 250 mls/hr IVPB DAILY [facility] Last Admin: 08/09/16 09:40 Dose: 250 mls/hr Pantoprazole Sodium 80 mg/ (Sodium Chloride) 100 mls @ 10 mls/hr IVPB Q10H [facility] PRN Reason: 8 MG/HR Isosorbide Mononitrate (Imdur -) 30 mg PO BID [facility] Last Admin: 08/09/16 09:41 Dose: 30 mg Methylprednisolone Sodium Succinate (Solu-Medrol -) 40 mg IVPB Q8H-IV [facility] Last Admin: 08/09/16 09:41 Dose: 40 mg Montelukast Sodium (Singulair -) 10 mg PO HS [facility] Last Admin: 08/08/16 21:39 Dose: 10 mg Nystatin (Nystatin Oral Suspension -) 500,000 units PO Q6HPO [facility] Last Admin: 08/09/16 05:55 Dose: 500,000 units Ranolazine (Ranexa -) 500 mg PO BID [facility] Last Admin: 08/09/16 09:41 Dose: 500 mg Sodium Chloride ([place] Nasal [place] -) 2 spray NS Q2H PRN PRN Reason: NASAL CONGESTION Last Admin: 08/05/16 11:50 Dose: 2 sprays Verapamil HCl (Calan Sr -) 240 mg PO BID [facility] Last Admin: 08/09/16 09:42 Dose: 240 mg - Objective Vital Signs: Vital Signs Temperature 97.6 F 08/09/16 09:29 Pulse Rate 78 08/09/16 09:29 Respiratory Rate 18 08/09/16 09:29 Blood Pressure 129/62 08/09/16 09:29 O2 Sat by Pulse Oximetry (%) 99 08/08/16 21:00 Constitutional: Yes: No Distress, Anxious Eyes: Yes: Conjunctiva Clear HENT: Yes: Atraumatic Neck: Yes: Supple Cardiovascular: Yes: Regular Rate and Rhythm Respiratory: Yes: Wheezes Gastrointestinal: Yes: Soft. No: Distention, Tenderness Genitourinary: No: CVA Tenderness - Left, CVA Tenderness - Right Extremities: No: Calf Tenderness, Cold, Cool Edema: No Peripheral Pulses WNL: Yes Integumentary: Yes: Bruising. No: Rash Neurological: Yes: WNL, Alert, Oriented ...Motor Strength: WNL Psychiatric: Yes: WNL, Alert, Oriented. No: Agitated, Suicidal Ideation Labs: CBC, BMP 08/09/16 07:00 INR, PTT INR 1.02 (0.82-1.09) 08/09/16 07:00 - ....Imaging Other: Report Reviewed Assessment/Plan The patient is a 61 year old female with a significant past medical history of HTN, HLD, COPD, ASHD s/p [place], PVD, HBP, who presents to the Emergency Department with complaints of increased SOB and worsening productive cough since yesterday. She reports chest pain secondary to cough. She states that she received 5 nebulizer treatments without significant improvement. Pt reports 102 fever before admission. COPD exacerbation; URI vs PNA, h/o lung nodules h/o carotid ds and HTN diastolic CHF h/o heavy smoking IV steroids, IV ATB cardio and pulm f/u drop H&H superficial abdominal bruises and LUE bruise; heparin sq stopped; ASA and Plavix held today; repeat CBC stat if Hg 7 to have PRBC transfusion. DVT falls PFX prognosis guarded d/w pt and staff, t time 40 min add meanwhile repeated CBC stat drawn by nurse Morocho Hg 8.4, will hold blood PRBC for now d/w blood bank and pt.
[2016-08-09 13:00] LABS: FERRITIN 22.202 ng/ml (6.9-282.5)
[2016-08-09] MEDS: PANTOPRAZOLE SODIUM 80 MG in SODIUM CHLORIDE 100 ML IVPB SCH ×2 (15:09→21:43)
--- NOTE | 2016-08-09 16:32 | PN ---
Progress Note, Physician History of Present Illness: GI input appreciated. Slowly improving dyspnea and wheezing. - Current Medication List Current Medications: Active Medications Acetaminophen (Tylenol -) 650 mg PO Q6H PRN PRN Reason: FEVER OR PAIN Aclidinium [place] (Tudorza -) 1 puff IH BID [facility] Last Admin: 08/09/16 09:42 Dose: 1 puff Al Hydroxide/Mg Hydroxide (Mylanta Oral Suspension -) 30 ml PO Q6H PRN PRN Reason: DYSPEPSIA Last Admin: 08/09/16 12:53 Dose: 30 ml Albuterol Sulfate (Ventolin 0.083% Nebulizer Soln -) 1 amp NEB Q6H PRN PRN Reason: SHORT OF BREATH/WHEEZING Last Admin: 08/09/16 11:28 Dose: 1 amp Aspirin (Asa -) 81 mg PO DAILY [facility] Last Admin: 08/08/16 11:26 Dose: 81 mg Atorvastatin Calcium (Lipitor -) 80 mg PO HS [facility] Last Admin: 08/08/16 21:38 Dose: 80 mg Clopidogrel Bisulfate (Plavix -) 75 mg PO DAILY [facility] Last Admin: 08/08/16 11:24 Dose: 75 mg Folic Acid (Folic Acid -) 1 mg PO DAILY [facility] Last Admin: 08/09/16 09:42 Dose: 1 mg Furosemide (Lasix -) 20 mg PO DAILY [facility] Last Admin: 08/09/16 09:41 Dose: 20 mg Ceftriaxone Sodium (Rocephin 1gm Ivpb (Pre-Docked)) 50 mls @ 100 mls/hr IVPB DAILY [facility] Last Admin: 08/09/16 09:37 Dose: 100 mls/hr Azithromycin (Zithromax 500mg Ivpb (Pre-Docked)) 250 mls @ 250 mls/hr IVPB DAILY [facility] Last Admin: 08/09/16 09:40 Dose: 250 mls/hr Pantoprazole Sodium 80 mg/ (Sodium Chloride) 100 mls @ 10 mls/hr IVPB Q10H [facility] PRN Reason: 8 MG/HR Last Admin: 08/09/16 15:09 Dose: 10 mls/hr Isosorbide Mononitrate (Imdur -) 30 mg PO BID [facility] Last Admin: 08/09/16 09:41 Dose: 30 mg Methylprednisolone Sodium Succinate (Solu-Medrol -) 40 mg IVPB Q8H-IV [facility] Last Admin: 08/09/16 09:41 Dose: 40 mg Montelukast Sodium (Singulair -) 10 mg PO HS [facility] Last Admin: 08/08/16 21:39 Dose: 10 mg Nystatin (Nystatin Oral Suspension -) 500,000 units PO Q6HPO [facility] Last Admin: 08/09/16 12:53 Dose: 500,000 units Ranolazine (Ranexa -) 500 mg PO BID [facility] Last Admin: 08/09/16 09:41 Dose: 500 mg Sodium Chloride ([place] Nasal [place] -) 2 spray NS Q2H PRN PRN Reason: NASAL CONGESTION Last Admin: 08/05/16 11:50 Dose: 2 sprays Verapamil HCl (Calan Sr -) 240 mg PO BID [facility] Last Admin: 08/09/16 09:42 Dose: 240 mg - Objective Vital Signs: Vital Signs Temperature 98.4 F 08/09/16 14:02 Pulse Rate 67 08/09/16 14:02 Respiratory Rate 18 08/09/16 14:02 Blood Pressure 118/45 08/09/16 14:02 O2 Sat by Pulse Oximetry (%) 99 08/08/16 21:00 Constitutional: Yes: No Distress, Calm Neck: Yes: Supple Cardiovascular: Yes: Regular Rate and Rhythm Respiratory: Yes: Regular, Diminished, On Nasal O2 Gastrointestinal: Yes: Normal Bowel Sounds, Soft Edema: No Labs: CBC, BMP 08/09/16 12:00 08/09/16 07:00 INR, PTT INR 1.02 (0.82-1.09) 08/09/16 07:00 Problem List - Problems (1) ASHD (arteriosclerotic heart disease) Code(s): I25.10 - ATHSCL HEART DISEASE OF [place] CORONARY ARTERY W/O ANG PCTRS (2) COPD exacerbation Code(s): J44.1 - CHRONIC OBSTRUCTIVE PULMONARY DISEASE W (ACUTE) EXACERBATION (3) Pneumonia Code(s): J18.9 - PNEUMONIA, UNSPECIFIED ORGANISM (4) Coronary artery disease Code(s): I25.10 - ATHSCL HEART DISEASE OF [place] CORONARY ARTERY W/O ANG PCTRS Qualifiers: Coronary Disease-Associated Artery/Lesion type: [place] artery [place] vs. 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 CAD h/o AR, angina pectoris 2. Dyspnea consistent with acute exacerbation of COPD, probable RML pneumonia and current tobacco abuse 3. Chronic diastolic LV dysfunction with class I-II NYHA classification LV failure 4. HTN 5. Hypercholesterolemia 6. History of carotid stenosis post CEA 7. Mesenteric ischemia post intervention 8. PAD post intervention 9. Anemia r/p GI bleed PLAN: 1. Continue Verapamil SR 240 mg BID 2. Continue Imdur 30 mg BID 3. Continue Ranexa 500 mg BID 4. ACEI or ARB if clinically tolerated 5. Continue Lipitor 80 mg QHS 6. Continue Lasix 20 mg QD 7. Continue ASA 81 qd and Plavix 75 qd. 8. Antibiotic course, bronchodilator, Singulair, slow IV steroid taper with DVT and Protonix, O2 and smoking cessation counselling 9. F/u abd/pelvic CT results 10. Follow up with Dr. Luis Eduardo Manning, patient's solid die cutter upon discharge and nuclear myocardial perfusion imaging can be done as outpatient by her solid die cutter.
[2016-08-09] MEDS: MONTELUKAST NA 10 MG TABLET PO SCH (21:41)
[2016-08-09] MEDS: ATORVASTATIN CA 80 MG TABLET (FP) PO SCH (21:41)
[2016-08-10] MEDS: PANTOPRAZOLE SODIUM 80 MG in SODIUM CHLORIDE 100 ML IVPB SCH ×3 (00:15→18:10)
[2016-08-10] MEDS: NYSTATIN 500,000 UNITS/5 ML SUSPENSION PO SCH ×4 (00:15→17:57)
[2016-08-10] MEDS: methylPREDNISolone NA SUCC 40 MG/1 ML VIAL IVPB SCH ×3 (01:17→17:58)
[2016-08-10] MEDS: ALBUTEROL SO4 0.083% IH SOL 2.5 MG/3 ML VIAL.NEB. NEB PRN ×3 (07:07→18:26)
[2016-08-10 08:05] LABS: MCH 27.7 pg (25.7-33.7); MCHC 31.9 g/dl (32.0-36.0); MEAN CELL VOLUME 86.8 fl (80-96); MEAN PLT VOLUME 6.7 fl (7.5-11.1); PLATELET COUNT 446 K/MM3 (134-434); RDW 16.6 % (11.6-15.6); WHITE BLOOD COUNT 28.2 K/mm3 (4.0-10.0)
[2016-08-10 08:25] LABS: CALCIUM 7.8 mg/dL (8.5-10.1); CREATININE 0.8 mg/dL (0.55-1.02)
[2016-08-10 08:26] LABS: FERRITIN 25.46 ng/ml (6.9-282.5)
[2016-08-10] MEDS ORDERED: PT OWN MED DRAWER 7, Y5N ONE ×3 (08:50→21:19)
[2016-08-10] MEDS: ACLIDINIUM BROMIDE 400 MCG/INH AERO.POWD IH SCH ×2 (09:56→22:21)
[2016-08-10] MEDS: CEFTRIAXONE 50 ML IVPB SCH (09:56)
[2016-08-10] MEDS: ASPIRIN 81 MG CHEWABLE TABLETS PO SCH (09:57)
[2016-08-10] MEDS: AZITHROMYCIN IVPB 250 ML IVPB SCH (09:57)
[2016-08-10] MEDS: FOLIC ACID 1 MG TABLET (FP) PO SCH (09:58)
[2016-08-10] MEDS: ISOSORBIDE MONONITRATE 30 MG TAB.SR.24H (FP) PO SCH ×2 (09:58→22:20)
[2016-08-10] MEDS: VERAPAMIL HCL 240 MG E.R. TABLET (FP) PO SCH ×2 (09:58→22:20)
[2016-08-10] MEDS: FUROSEMIDE 20 MG TABLET (FP) PO SCH (09:58)
[2016-08-10] MEDS: RANOLAZINE E.R. 500 MG TABLET (FP) PO SCH ×2 (09:59→22:19)
[2016-08-10] MEDS: CLOPIDOGREL BISULFATE 75 MG TABLET (FP) PO SCH (09:59)
[2016-08-10] MEDS ORDERED: DOCUSATE SODIUM 100 MG CAPSULE (FP) PO PRN (11:48)
--- NOTE | 2016-08-10 11:53 | PN ---
Progress Note, Physician Chief Complaint: still with cough with yellow sputum and yellow nasal DC; no CP but has some tightness; less wheezing; Hg 7.4 WBC 28K on IV ATB IV steroids - Current Medication List Current Medications: Active Medications Acetaminophen (Tylenol -) 650 mg PO Q6H PRN PRN Reason: FEVER OR PAIN Aclidinium [place] (Tudorza -) 1 puff IH BID [facility] Last Admin: 08/10/16 09:56 Dose: 1 puff Al Hydroxide/Mg Hydroxide (Mylanta Oral Suspension -) 30 ml PO Q6H PRN PRN Reason: DYSPEPSIA Last Admin: 08/09/16 12:53 Dose: 30 ml Albuterol Sulfate (Ventolin 0.083% Nebulizer Soln -) 1 amp NEB Q6H PRN PRN Reason: SHORT OF BREATH/WHEEZING Last Admin: 08/10/16 11:20 Dose: 1 amp Aspirin (Asa -) 81 mg PO DAILY [facility] Last Admin: 08/10/16 09:57 Dose: 81 mg Atorvastatin Calcium (Lipitor -) 80 mg PO HS [facility] Last Admin: 08/09/16 21:41 Dose: 80 mg Clopidogrel Bisulfate (Plavix -) 75 mg PO DAILY [facility] Last Admin: 08/10/16 09:59 Dose: 75 mg Ferrous Sulfate (Feosol -) 325 mg PO DAILY [facility] Folic Acid (Folic Acid -) 1 mg PO DAILY [facility] Last Admin: 08/10/16 09:58 Dose: 1 mg Furosemide (Lasix -) 20 mg PO DAILY [facility] Last Admin: 08/10/16 09:58 Dose: 20 mg Ceftriaxone Sodium (Rocephin 1gm Ivpb (Pre-Docked)) 50 mls @ 100 mls/hr IVPB DAILY [facility] Last Admin: 08/10/16 09:56 Dose: 100 mls/hr Azithromycin (Zithromax 500mg Ivpb (Pre-Docked)) 250 mls @ 250 mls/hr IVPB DAILY [facility] Last Admin: 08/10/16 09:57 Dose: 250 mls/hr Pantoprazole Sodium 80 mg/ (Sodium Chloride) 100 mls @ 10 mls/hr IVPB Q10H [facility] PRN Reason: 8 MG/HR Last Admin: 08/10/16 08:52 Dose: 10 mls/hr Isosorbide Mononitrate (Imdur -) 30 mg PO BID [facility] Last Admin: 08/10/16 09:58 Dose: 30 mg Methylprednisolone Sodium Succinate (Solu-Medrol -) 20 mg IVPB Q8H-IV [facility] Montelukast Sodium (Singulair -) 10 mg PO HS [facility] Last Admin: 08/09/16 21:41 Dose: 10 mg Nystatin (Nystatin Oral Suspension -) 500,000 units PO Q6HPO [facility] Last Admin: 08/10/16 06:25 Dose: 500,000 units Ranolazine (Ranexa -) 500 mg PO BID [facility] Last Admin: 08/10/16 09:59 Dose: 500 mg Sodium Chloride ([place] Nasal [place] -) 2 spray NS Q2H PRN PRN Reason: NASAL CONGESTION Last Admin: 08/05/16 11:50 Dose: 2 sprays Verapamil HCl (Calan Sr -) 240 mg PO BID [facility] Last Admin: 08/10/16 09:58 Dose: 240 mg - Objective Vital Signs: Vital Signs Temperature 98.8 F 08/10/16 06:30 Pulse Rate 79 08/10/16 11:45 Respiratory Rate 20 08/10/16 06:30 Blood Pressure 119/59 08/10/16 06:30 O2 Sat by Pulse Oximetry (%) 97 08/10/16 11:45 Constitutional: Yes: No Distress Eyes: Yes: Conjunctiva Clear HENT: Yes: Atraumatic Neck: Yes: Supple Cardiovascular: Yes: Regular Rate and Rhythm Respiratory: Yes: Wheezes (less bilateral) Gastrointestinal: Yes: Soft. No: Distention, Tenderness Genitourinary: No: CVA Tenderness - Left, CVA Tenderness - Right Musculoskeletal: No: Joint Stiffness, Joint Swelling Extremities: No: Cold, Cool Edema: No Peripheral Pulses WNL: Yes Integumentary: No: Rash, Venous Stasis Changes Neurological: Yes: WNL, Alert, Oriented ...Motor Strength: WNL Psychiatric: Yes: WNL, Alert, Oriented. No: Agitated, Suicidal Ideation Labs: CBC, BMP 08/10/16 07:10 08/10/16 07:10 INR, PTT INR 1.02 (0.82-1.09) 08/09/16 07:00 - ....Imaging Other: Report Reviewed Assessment/Plan The patient is a 61 year old female with a significant past medical history of HTN, HLD, COPD, ASHD s/p [place], PVD, HBP, who presents to the Emergency Department with complaints of increased SOB and worsening productive cough since yesterday. She reports chest pain secondary to cough. She states that she received 5 nebulizer treatments without significant improvement. Pt reports 102 fever before admission. COPD exacerbation; URI vs PNA, h/o lung nodules h/o carotid ds and HTN diastolic CHF h/o heavy smoking taper IV steroids, continue IV ATB cardio and pulm f/u drop H&H superficial abdominal bruises and LUE bruise; heparin sq stopped; ASA and Plavix restarted today; Hg 7.4 to have 1U PRBC transfusion. Heme eval for anemia w/u and ?iv iron?; start po iron for now; will need GI and BLACK TOPPER f/u after DC from hospital, EGD colonoscopy and pap pelvic exams DVT falls PFX prognosis guarded d/w pt and staff, t time 35 min
--- NOTE | 2016-08-10 12:00 | PN ---
GI Progress Note Subjective: GI NOte: Hct has dwindled down again to 7.4 and is getting more blood. Discussed case with Dr Cohn. The patient's respiratory status precludes elective endoscopy. I have discussed this with Margarita. Will reserve endoscopic for emergent intervention if necessary - Objective Vital Signs: Vital Signs Temperature 98.8 F 08/10/16 06:30 Pulse Rate 79 08/10/16 11:45 Respiratory Rate 20 08/10/16 06:30 Blood Pressure 119/59 08/10/16 06:30 O2 Sat by Pulse Oximetry (%) 97 08/10/16 11:45 Constitutional: Anxious ...Auscultate: Yes: Normoactive Bowel Sounds ...Palpate: Yes: Soft, Other (nontender) ...Percussion: Yes: Tympanitic Labs: CBC, BMP 08/10/16 07:10 08/10/16 07:10 INR, PTT INR 1.02 (0.82-1.09) 08/09/16 07:00 Laboratory Tests 08/09/16 08/10/16 12:00 07:10 Hgb 8.4 L D 7.4 L D Assessment/Plan Progressive persistent anemia due to GI bleeding. Given respiratory condition will reserve endoscopy for emergent intrvention and continue empiric PPI IV therapy. 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
[2016-08-10] MEDS: FERROUS SO4 325 MG TABLET (FP) PO SCH (12:09)
--- NOTE | 2016-08-10 13:02 | PN ---
Progress Note, Physician History of Present Illness: Pt less dyspneic. - Current Medication List Current Medications: Active Medications Acetaminophen (Tylenol -) 650 mg PO Q6H PRN PRN Reason: FEVER OR PAIN Aclidinium [place] (Tudorza -) 1 puff IH BID [facility] Last Admin: 08/10/16 09:56 Dose: 1 puff Al Hydroxide/Mg Hydroxide (Mylanta Oral Suspension -) 30 ml PO Q6H PRN PRN Reason: DYSPEPSIA Last Admin: 08/09/16 12:53 Dose: 30 ml Albuterol Sulfate (Ventolin 0.083% Nebulizer Soln -) 1 amp NEB Q6H PRN PRN Reason: SHORT OF BREATH/WHEEZING Last Admin: 08/10/16 11:20 Dose: 1 amp Aspirin (Asa -) 81 mg PO DAILY [facility] Last Admin: 08/10/16 09:57 Dose: 81 mg Atorvastatin Calcium (Lipitor -) 80 mg PO HS [facility] Last Admin: 08/09/16 21:41 Dose: 80 mg Clopidogrel Bisulfate (Plavix -) 75 mg PO DAILY [facility] Last Admin: 08/10/16 09:59 Dose: 75 mg Docusate Sodium (Colace -) 300 mg PO HS PRN PRN Reason: CONSTIPATION Ferrous Sulfate (Feosol -) 325 mg PO DAILY [facility] Last Admin: 08/10/16 12:09 Dose: 325 mg Folic Acid (Folic Acid -) 1 mg PO DAILY [facility] Last Admin: 08/10/16 09:58 Dose: 1 mg Furosemide (Lasix -) 20 mg PO DAILY [facility] Last Admin: 08/10/16 09:58 Dose: 20 mg Ceftriaxone Sodium (Rocephin 1gm Ivpb (Pre-Docked)) 50 mls @ 100 mls/hr IVPB DAILY [facility] Last Admin: 08/10/16 09:56 Dose: 100 mls/hr Azithromycin (Zithromax 500mg Ivpb (Pre-Docked)) 250 mls @ 250 mls/hr IVPB DAILY [facility] Last Admin: 08/10/16 09:57 Dose: 250 mls/hr Pantoprazole Sodium 80 mg/ (Sodium Chloride) 100 mls @ 10 mls/hr IVPB Q10H [facility] PRN Reason: 8 MG/HR Last Admin: 08/10/16 08:52 Dose: 10 mls/hr Isosorbide Mononitrate (Imdur -) 30 mg PO BID [facility] Last Admin: 08/10/16 09:58 Dose: 30 mg Methylprednisolone Sodium Succinate (Solu-Medrol -) 20 mg IVPB Q8H-IV [facility] Montelukast Sodium (Singulair -) 10 mg PO HS [facility] Last Admin: 08/09/16 21:41 Dose: 10 mg Nystatin (Nystatin Oral Suspension -) 500,000 units PO Q6HPO [facility] Last Admin: 08/10/16 12:09 Dose: 500,000 units Ranolazine (Ranexa -) 500 mg PO BID [facility] Last Admin: 08/10/16 09:59 Dose: 500 mg Sodium Chloride ([place] Nasal [place] -) 2 spray NS Q2H PRN PRN Reason: NASAL CONGESTION Last Admin: 08/05/16 11:50 Dose: 2 sprays Verapamil HCl (Calan Sr -) 240 mg PO BID [facility] Last Admin: 08/10/16 09:58 Dose: 240 mg - Objective Vital Signs: Vital Signs Temperature 98.8 F 08/10/16 06:30 Pulse Rate 79 08/10/16 11:45 Respiratory Rate 20 08/10/16 06:30 Blood Pressure 119/59 08/10/16 06:30 O2 Sat by Pulse Oximetry (%) 97 08/10/16 11:45 Constitutional: No: No Distress Eyes: No: Sclera Icterus HENT: Yes: Atraumatic, Normocephalic Neck: Yes: Supple, Trachea Midline Cardiovascular: Yes: Regular Rate and Rhythm. No: JVD Respiratory: Yes: Diminished (bilateral) Gastrointestinal: Yes: Soft. No: Tenderness Extremities: No: Calf Tenderness Edema: No Neurological: Yes: Alert, Oriented Labs: CBC, BMP 08/10/16 07:10 08/10/16 07:10 INR, PTT INR 1.02 (0.82-1.09) 08/09/16 07:00 Problem List - Problems (1) Pneumonia Code(s): J18.9 - PNEUMONIA, UNSPECIFIED ORGANISM (2) COPD exacerbation Code(s): J44.1 - CHRONIC OBSTRUCTIVE PULMONARY DISEASE W (ACUTE) EXACERBATION (3) Lung nodule < 6cm on CT Code(s): R91.1 - SOLITARY PULMONARY NODULE (4) ASHD (arteriosclerotic heart disease) Code(s): I25.10 - ATHSCL HEART DISEASE OF [place] CORONARY ARTERY W/O ANG PCTRS Assessment/Plan 61year old lady with: Pnuemonia- RML consolidation and and atelectasis not present on previous CT in 2015. Acute Exacerbation of COPD: respiratory status improving Lung Nodules- largest is 5 mm in RLL. No significant change in nodules on CT scans going back to 2013 suggesting they are benign. However, pt continues to smoke so at increased risk to develop lung carcinoma. ASHD-Pt has previous hx of severe CAD and peripheral vascular disease. Anemia: HCt dropping.- Transfusion pending. GI note by Dr Hoff appreciated. Suggest: O2 to maintain SaO2>90 Inhaled bronchodilators Antibiotics IV steroids-if stable overnight would start to taper steroids Will get bedside PFT tomorrow to document degree of obstructive airway disease
--- NOTE | 2016-08-10 14:49 | PN ---
Progress Note, Physician History of Present Illness: GI input appreciated. Slowly improving dyspnea and wheezing, reports chest tightness. Receiving pRBC. - Current Medication List Current Medications: Active Medications Acetaminophen (Tylenol -) 650 mg PO Q6H PRN PRN Reason: FEVER OR PAIN Aclidinium [place] (Tudorza -) 1 puff IH BID [facility] Last Admin: 08/10/16 09:56 Dose: 1 puff Al Hydroxide/Mg Hydroxide (Mylanta Oral Suspension -) 30 ml PO Q6H PRN PRN Reason: DYSPEPSIA Last Admin: 08/09/16 12:53 Dose: 30 ml Albuterol Sulfate (Ventolin 0.083% Nebulizer Soln -) 1 amp NEB Q6H PRN PRN Reason: SHORT OF BREATH/WHEEZING Last Admin: 08/10/16 11:20 Dose: 1 amp Aspirin (Asa -) 81 mg PO DAILY [facility] Last Admin: 08/10/16 09:57 Dose: 81 mg Atorvastatin [place] (Lipitor -) 80 mg PO HS [facility] Last Admin: 08/09/16 21:41 Dose: 80 mg Clopidogrel Bisulfate (Plavix -) 75 mg PO DAILY [facility] Last Admin: 08/10/16 09:59 Dose: 75 mg Docusate Sodium (Colace -) 300 mg PO HS PRN PRN Reason: CONSTIPATION Ferrous Sulfate (Feosol -) 325 mg PO DAILY [facility] Last Admin: 08/10/16 12:09 Dose: 325 mg Folic Acid (Folic Acid -) 1 mg PO DAILY [facility] Last Admin: 08/10/16 09:58 Dose: 1 mg Furosemide (Lasix -) 20 mg PO DAILY [facility] Last Admin: 08/10/16 09:58 Dose: 20 mg Ceftriaxone Sodium (Rocephin 1gm Ivpb (Pre-Docked)) 50 mls @ 100 mls/hr IVPB DAILY [facility] Last Admin: 08/10/16 09:56 Dose: 100 mls/hr Azithromycin (Zithromax 500mg Ivpb (Pre-Docked)) 250 mls @ 250 mls/hr IVPB DAILY [facility] Last Admin: 08/10/16 09:57 Dose: 250 mls/hr Pantoprazole Sodium 80 mg/ (Sodium Chloride) 100 mls @ 10 mls/hr IVPB Q10H [facility] PRN Reason: 8 MG/HR Last Admin: 08/10/16 08:52 Dose: 10 mls/hr Isosorbide Mononitrate (Imdur -) 30 mg PO BID [facility] Last Admin: 08/10/16 09:58 Dose: 30 mg Methylprednisolone Sodium Succinate (Solu-Medrol -) 20 mg IVPB Q8H-IV [facility] Montelukast Sodium (Singulair -) 10 mg PO HS [facility] Last Admin: 08/09/16 21:41 Dose: 10 mg Nystatin (Nystatin Oral Suspension -) 500,000 units PO Q6HPO [facility] Last Admin: 08/10/16 12:09 Dose: 500,000 units Ranolazine (Ranexa -) 500 mg PO BID [facility] Last Admin: 08/10/16 09:59 Dose: 500 mg Sodium Chloride ([place] [place] Nasal [place] -) 2 spray NS Q2H PRN PRN Reason: NASAL CONGESTION Last Admin: 08/05/16 11:50 Dose: 2 sprays Verapamil HCl (Calan Sr -) 240 mg PO BID [facility] Last Admin: 08/10/16 09:58 Dose: 240 mg - Objective Vital Signs: Vital Signs Temperature 98.8 F 08/10/16 06:30 Pulse Rate 79 08/10/16 11:45 Respiratory Rate 20 08/10/16 06:30 Blood Pressure 119/59 08/10/16 06:30 O2 Sat by Pulse Oximetry (%) 97 08/10/16 11:45 Constitutional: Yes: No Distress, Calm Neck: Yes: Supple Cardiovascular: Yes: Regular Rate and Rhythm Respiratory: Yes: Regular, Diminished, On Nasal O2 Gastrointestinal: Yes: Normal Bowel Sounds, Soft, Hypoactive Bowel Sounds Edema: No Labs: CBC, BMP 08/10/16 07:10 08/10/16 07:10 INR, PTT INR 1.02 (0.82-1.09) 08/09/16 07:00 Problem List - Problems (1) ASHD (arteriosclerotic heart disease) Code(s): I25.10 - ATHSCL HEART DISEASE OF [place] CORONARY ARTERY W/O ANG PCTRS (2) COPD exacerbation Code(s): J44.1 - CHRONIC OBSTRUCTIVE PULMONARY DISEASE W (ACUTE) EXACERBATION (3) Pneumonia Code(s): J18.9 - PNEUMONIA, UNSPECIFIED ORGANISM (4) Coronary artery disease Code(s): I25.10 - ATHSCL HEART DISEASE OF [place] CORONARY ARTERY W/O ANG PCTRS Qualifiers: Coronary Disease-Associated Artery/Lesion type: [place] artery [place] vs. 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 CAD h/o [place], angina pectoris 2. Dyspnea consistent with acute exacerbation of COPD, probable RML pneumonia and current tobacco abuse 3. Chronic diastolic LV dysfunction with class I-II NYHA classification LV failure 4. HTN 5. Hypercholesterolemia 6. History of carotid stenosis post CEA 7. Mesenteric ischemia post intervention 8. PAD post intervention 9. Anemia r/o GI bleed PLAN: 1. Continue Verapamil SR 240 mg BID 2. Continue Imdur 30 mg BID 3. Continue Ranexa 500 mg BID 4. Continue Lipitor 80 mg QHS 5. Continue Lasix 20 mg QD 6. D/c ASA 81 qd, continue Plavix 75 qd given anemia possible GI bleed, transfuse to maintain Hgb>8.0 7. Antibiotic course, bronchodilator, Singulair, slow IV steroid taper with DVT and Protonix, O2 and bedside PT 8. Follow up with Dr. Luis Eduardo Manning, patient's hose builder upon discharge and nuclear myocardial perfusion imaging can be done as outpatient by her hose builder.
--- NOTE | 2016-08-10 17:23 | CONSULT ---
Consult - text type - Consultation Consultation Note: 61W admitted for respiratory difficulties is noted to have a dropping Hct. She reports that she has acid reflux and epigastric burning discomfort whenever she is bolused with steroids. She denies any overt GI bleeding. She has multiple ecchymoses. Margarita has a h/o mesenteric ischemia and abdominal pain which resolved after Dr Francois did a left iliac artery to SMA bypass as well as a left common iliac endarterectomy. She last had an EGD and colonoscopy by Dr Ayers on which revealed a large hiatal hernia and short segment Sue's esophagus, moderate gastritis and prominent rugal folds in the antrum and duodenum that were not abnormal histologically - Past Medical History Cardio/Vascular: Yes: CAD, HTN, CO (2011 transferred to [facility], no stents, told of ? Prinzmetal angina? ), Other (left ventricular end diastolic dysfunction, peripheral and carotid vascular disease ) Pulmonary: Yes: Asthma, COPD Gastrointestinal: Yes: Diverticulosis, Gastritis, GERD (with short segment Barretts), Hiatal Hernia, Other (Mesenteric ischemia treated with SMA bypass 2012. Incisional hernia.) Renal/: Yes: Renal Failure (required dialysis for several weeks following contrast induced renal fauilure after CO in 2011) Heme/Onc: Yes: Anemia Psych: Yes: Anxiety, Depression Endocrine: Yes: Other (Euthyroid goiter) - Past Surgical History Past Surgical History: Yes: Carotid Endarterectomy, Cholecystectomy, Colonoscopy , Upper Endoscopy Additional Surgical History: 2012 left iliac artery to SMA bypass as well as a left common iliac endarterectomy. 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 Place of : [facility] Home Medications - Allergies Allergies/Adverse Reactions: Allergies Allergy/AdvReac Type Severity Reaction Status Date / Time No Known Drug Allergies Allergy Verified 07/31/16 17:03 - Home Medications Home Medications: Ambulatory Orders Albuterol 2.5/Ipratropium 0.5 [Duoneb -] 1 neb NEB Q4H PRN #0 vial 12/27/12 Aspirin [ASA -] 81 mg PO DAILY #0 tab.chew 12/27/12 Atorvastatin Calcium [Lipitor] 80 mg PO HS #0 tablet 12/27/12 Clopidogrel Bisulfate [Plavix -] 75 mg PO DAILY #0 tablet 12/27/12 Folic Acid - 1 mg PO DAILY #0 tablet 12/27/12 Furosemide [Lasix -] 20 mg PO DAILY #0 tablet 12/27/12 Isosorbide Mononitrate [Imdur] 30 mg PO BID #0 tab.sr.24h 12/27/12 Montelukast Na [Singulair -] 10 mg PO HS #0 tablet 12/27/12 Ranitidine [Zantac -] 150 mg PO DAILY #0 tablet 12/27/12 Tiotropium [place] [Spiriva] 1 inh IH DAILY #0 inh 12/27/12 Verapamil HCl ER [Calan Sr -] 180 mg PO BID #0 tablet.er 12/27/12 Fluticasone Prop 0.05% Nasal [Flonase -] 1 - 2 spray NS BID #1 spray.pump Acetaminophen [Tylenol .Regular Strength -] 650 mg PO Q6H PRN #0 tablet Mag Hydrox/Al Hydrox/Simeth [Mylanta Oral Suspension -] 30 ml PO Q6H PRN #0 cup 04/16/15 Sodium Chloride Nasal [place] [[place] -] 2 spray NS Q2H PRN #0 bottle 04/16/15 Nystatin Oral Suspension - [Nystatin Oral Susp 338542 Units/5 ML -] 500,000 units PO Q6HPO 14 Days 04/17/15 Current Medications Acetaminophen (Tylenol -) 650 mg PO Q6H PRN PRN Reason: FEVER OR PAIN Aclidinium [place] (Tudorza -) 1 puff IH BID [facility] Last Admin: 08/10/16 09:56 Dose: 1 puff Al Hydroxide/Mg Hydroxide (Mylanta Oral Suspension -) 30 ml PO Q6H PRN PRN Reason: DYSPEPSIA Last Admin: 08/09/16 12:53 Dose: 30 ml Albuterol Sulfate (Ventolin 0.083% Nebulizer Soln -) 1 amp NEB Q6H PRN PRN Reason: SHORT OF BREATH/WHEEZING Last Admin: 08/10/16 11:20 Dose: 1 amp Atorvastatin Calcium (Lipitor -) 80 mg PO HS [facility] Last Admin: 08/09/16 21:41 Dose: 80 mg Clopidogrel Bisulfate (Plavix -) 75 mg PO DAILY [facility] Last Admin: 08/10/16 09:59 Dose: 75 mg Docusate Sodium (Colace -) 300 mg PO HS PRN PRN Reason: CONSTIPATION Ferrous Sulfate (Feosol -) 325 mg PO DAILY [facility] Last Admin: 08/10/16 12:09 Dose: 325 mg Folic Acid (Folic Acid -) 1 mg PO DAILY [facility] Last Admin: 08/10/16 09:58 Dose: 1 mg Furosemide (Lasix -) 20 mg PO DAILY [facility] Last Admin: 08/10/16 09:58 Dose: 20 mg Ceftriaxone Sodium (Rocephin 1gm Ivpb (Pre-Docked)) 50 mls @ 100 mls/hr IVPB DAILY [facility] Last Admin: 08/10/16 09:56 Dose: 100 mls/hr Azithromycin (Zithromax 500mg Ivpb (Pre-Docked)) 250 mls @ 250 mls/hr IVPB DAILY [facility] Last Admin: 08/10/16 09:57 Dose: 250 mls/hr Pantoprazole Sodium 80 mg/ (Sodium Chloride) 100 mls @ 10 mls/hr IVPB Q10H [facility] PRN Reason: 8 MG/HR Last Admin: 08/10/16 08:52 Dose: 10 mls/hr Isosorbide Mononitrate (Imdur -) 30 mg PO BID [facility] Last Admin: 08/10/16 09:58 Dose: 30 mg Methylprednisolone Sodium Succinate (Solu-Medrol -) 20 mg IVPB Q8H-IV [facility] Montelukast Sodium (Singulair -) 10 mg PO HS [facility] Last Admin: 08/09/16 21:41 Dose: 10 mg Nystatin (Nystatin Oral Suspension -) 500,000 units PO Q6HPO [facility] Last Admin: 08/10/16 12:09 Dose: 500,000 units Ranolazine (Ranexa -) 500 mg PO BID [facility] Last Admin: 08/10/16 09:59 Dose: 500 mg Sodium Chloride ([place] Nasal [place] -) 2 spray NS Q2H PRN PRN Reason: NASAL CONGESTION Last Admin: 08/05/16 11:50 Dose: 2 sprays Verapamil HCl (Calan Sr -) 240 mg PO BID [facility] Last Admin: 08/10/16 09:58 Dose: 240 mg Family Disease History - Family Disease History Family Disease History: Heart Disease: Father ( 73 of melanoma), Mother ( 73 of COPD), Brother ( of throat cancer), CA: Father, Brother, Respiratory: Mother Physical Exam-GI Vital Signs: Last Vital Signs Temp Pulse Resp BP Pulse Ox 97.3 F L 79 20 120/44 97 08/10/16 10:00 08/10/16 11:45 08/10/16 10:00 08/10/16 10:00 08/10/16 11:45 Constitutional: Yes: Anxious Cardiovascular: Yes: Regular Rate and Rhythm Respiratory: Yes: Rhonchi (fine scattered bilaterally) Gastrointestinal Inspection: Yes: Scars (healed oblique RUG and long oblique left lower abdomen to flank incision with hernia), Other (multiple ecchymoses) ...Auscultate: Yes: Normoactive Bowel Sounds ...Palpate: Yes: Soft, Other (nontender) Edema: No Abnormal Lab Results 08/08/16 08/10/16 08/10/16 15:00 07:10 07:10 WBC 28.2 H RBC 2.68 L Hgb 7.4 L D Hct 23.2 L MCHC 31.9 L RDW 16.6 H Plt Count 446 H MPV 6.7 L Neutrophils % 90.0 H Lymphocytes % 3.0 L D Monocytes % 3.0 L Retic Count 5.30 H Anion Gap 7 L BUN 25 H Random Glucose 138 H Calcium 7.8 L Crossmatch See Detail Current Medications Acetaminophen (Tylenol -) 650 mg PO Q6H PRN PRN Reason: FEVER OR PAIN Aclidinium [place] (Tudorza -) 1 puff IH BID [facility] Last Admin: 08/10/16 09:56 Dose: 1 puff Al Hydroxide/Mg Hydroxide (Mylanta Oral Suspension -) 30 ml PO Q6H PRN PRN Reason: DYSPEPSIA Last Admin: 08/09/16 12:53 Dose: 30 ml Albuterol Sulfate (Ventolin 0.083% Nebulizer Soln -) 1 amp NEB Q6H PRN PRN Reason: SHORT OF BREATH/WHEEZING Last Admin: 08/10/16 11:20 Dose: 1 amp Atorvastatin Calcium (Lipitor -) 80 mg PO HS [facility] Last Admin: 08/09/16 21:41 Dose: 80 mg Clopidogrel Bisulfate (Plavix -) 75 mg PO DAILY [facility] Last Admin: 08/10/16 09:59 Dose: 75 mg Docusate Sodium (Colace -) 300 mg PO HS PRN PRN Reason: CONSTIPATION Ferrous Sulfate (Feosol -) 325 mg PO DAILY [facility] Last Admin: 08/10/16 12:09 Dose: 325 mg Folic Acid (Folic Acid -) 1 mg PO DAILY [facility] Last Admin: 08/10/16 09:58 Dose: 1 mg Furosemide (Lasix -) 20 mg PO DAILY [facility] Last Admin: 08/10/16 09:58 Dose: 20 mg Ceftriaxone Sodium (Rocephin 1gm Ivpb (Pre-Docked)) 50 mls @ 100 mls/hr IVPB DAILY [facility] Last Admin: 08/10/16 09:56 Dose: 100 mls/hr Azithromycin (Zithromax 500mg Ivpb (Pre-Docked)) 250 mls @ 250 mls/hr IVPB DAILY [facility] Last Admin: 08/10/16 09:57 Dose: 250 mls/hr Pantoprazole Sodium 80 mg/ (Sodium Chloride) 100 mls @ 10 mls/hr IVPB Q10H [facility] PRN Reason: 8 MG/HR Last Admin: 08/10/16 08:52 Dose: 10 mls/hr Isosorbide Mononitrate (Imdur -) 30 mg PO BID [facility] Last Admin: 08/10/16 09:58 Dose: 30 mg Methylprednisolone Sodium Succinate (Solu-Medrol -) 20 mg IVPB Q8H-IV [facility] Montelukast Sodium (Singulair -) 10 mg PO HS [facility] Last Admin: 08/09/16 21:41 Dose: 10 mg Nystatin (Nystatin Oral Suspension -) 500,000 units PO Q6HPO [facility] Last Admin: 08/10/16 12:09 Dose: 500,000 units Ranolazine (Ranexa -) 500 mg PO BID [facility] Last Admin: 08/10/16 09:59 Dose: 500 mg Sodium Chloride ([place] Nasal [place] -) 2 spray NS Q2H PRN PRN Reason: NASAL CONGESTION Last Admin: 08/05/16 11:50 Dose: 2 sprays Verapamil HCl (Calan Sr -) 240 mg PO BID [facility] Last Admin: 08/10/16 09:58 Dose: 240 mg - Problems (1) Occult blood in stools Code(s): R19.5 - OTHER FECAL ABNORMALITIES (2) Sue esophagus Code(s): K22.70 - SUE'S ESOPHAGUS WITHOUT DYSPLASIA (3) Diverticula of colon Code(s): K57.30 - DVRTCLOS OF LG INT W/O PERFORATION OR ABSCESS W/O BLEEDING Assessment/Plan 61 y/o patient with h/o HTN, HLD, CAD, COPD, stable lung nodule, h/o carotid stenosis s/p CEA, h/o mesenteric ischemia --s/p SMA bypass in 2011, h/po PAD --s /p iliac endarterectomy, h/o Barretts esophagus, diverticulosis comes in with COPD exacerbation/RML pneumonia Anemia-- dropping hct since admission ? erosive gastritis/duodenitis + marrow suppression from ongoing infection On protonix/feosol On plavix On steroid taper GI input appreciated Hgb 7.4 transfuse for Hgb <8---s/p 1 unit today
[2016-08-10] MEDS: ATORVASTATIN CA 80 MG TABLET (FP) PO SCH (22:19)
[2016-08-10] MEDS: MONTELUKAST NA 10 MG TABLET PO SCH (22:20)
[2016-08-11] MEDS: ALBUTEROL SO4 0.083% IH SOL 2.5 MG/3 ML VIAL.NEB. NEB PRN ×3 (00:07→23:10)
[2016-08-11] MEDS: NYSTATIN 500,000 UNITS/5 ML SUSPENSION PO SCH ×5 (00:15→23:31)
[2016-08-11] MEDS: methylPREDNISolone NA SUCC 40 MG/1 ML VIAL IVPB SCH ×3 (02:18→17:30)
[2016-08-11] MEDS: PANTOPRAZOLE SODIUM 80 MG in SODIUM CHLORIDE 100 ML IVPB SCH ×3 (03:10→23:32)
[2016-08-11 06:06] LABS: SERUM IRON 23 ug/dL (27-139); TOTAL IRON BINDING CAPACITY 307 ug/dL (250-450); UIBC 284 ug/dL (118-369)
[2016-08-11 09:11] LABS: C-REACTIVE PROTEIN < 0.3 MG/DL (0.00-0.3); LDH 256 U/L (84-246)
[2016-08-11 09:18] LABS: ALBUMIN 3.1 g/dl (3.4-5.0); ALK PHOS 49 U/L (45-117); ANION GAP 10 (8-16); BILIRUBIN,TOTAL 1.2 mg/dL (0.2-1.0); CALCIUM 7.9 mg/dL (8.5-10.1); CO2 27 mmol/L (21-32); CREATININE 0.8 mg/dL (0.55-1.02); GLUCOSE,RANDOM 103 mg/dL (74-106); SGOT/AST 14 U/L (15-37); SGPT/ALT 32 U/L (12-78); TOT PROT 5.1 g/dl (6.4-8.2)
[2016-08-11 09:19] LABS: MCHC 33.1 g/dl (32.0-36.0); MEAN CELL VOLUME 84.6 fl (80-96); MEAN PLT VOLUME 6.9 fl (7.5-11.1); PLATELET COUNT 353 K/MM3 (134-434); WHITE BLOOD COUNT 25.5 K/mm3 (4.0-10.0)
--- NOTE | 2016-08-11 10:56 | PN ---
Progress Note, Physician Chief Complaint: Feels better History of Present Illness: Patient was seen and examined. Awake and alert. Chart was reviewed Denies chest pain or palpitation Breathing comfortable - Current Medication List Current Medications: Active Medications Acetaminophen (Tylenol -) 650 mg PO Q6H PRN PRN Reason: FEVER OR PAIN Aclidinium [place] (Tudorza -) 1 puff IH BID [facility] Last Admin: 08/10/16 22:21 Dose: 1 puff Al Hydroxide/Mg Hydroxide (Mylanta Oral Suspension -) 30 ml PO Q6H PRN PRN Reason: DYSPEPSIA Last Admin: 08/09/16 12:53 Dose: 30 ml Albuterol Sulfate (Ventolin 0.083% Nebulizer Soln -) 1 amp NEB Q6H PRN PRN Reason: SHORT OF BREATH/WHEEZING Last Admin: 08/11/16 07:19 Dose: 1 amp Atorvastatin Calcium (Lipitor -) 80 mg PO HS [facility] Last Admin: 08/10/16 22:19 Dose: 80 mg Clopidogrel Bisulfate (Plavix -) 75 mg PO DAILY [facility] Last Admin: 08/10/16 09:59 Dose: 75 mg Docusate Sodium (Colace -) 300 mg PO HS PRN PRN Reason: CONSTIPATION Ferrous Sulfate (Feosol -) 325 mg PO DAILY [facility] Last Admin: 08/10/16 12:09 Dose: 325 mg Folic Acid (Folic Acid -) 1 mg PO DAILY [facility] Last Admin: 08/10/16 09:58 Dose: 1 mg Furosemide (Lasix -) 20 mg PO DAILY [facility] Last Admin: 08/10/16 09:58 Dose: 20 mg Ceftriaxone Sodium (Rocephin 1gm Ivpb (Pre-Docked)) 50 mls @ 100 mls/hr IVPB DAILY [facility] Last Admin: 08/10/16 09:56 Dose: 100 mls/hr Azithromycin (Zithromax 500mg Ivpb (Pre-Docked)) 250 mls @ 250 mls/hr IVPB DAILY [facility] Last Admin: 08/10/16 09:57 Dose: 250 mls/hr Pantoprazole Sodium 80 mg/ (Sodium Chloride) 100 mls @ 10 mls/hr IVPB Q10H [facility] PRN Reason: 8 MG/HR Last Admin: 08/11/16 03:10 Dose: 10 mls/hr Isosorbide Mononitrate (Imdur -) 30 mg PO BID [facility] Last Admin: 08/10/16 22:20 Dose: 30 mg Methylprednisolone Sodium Succinate (Solu-Medrol -) 20 mg IVPB Q8H-IV [facility] Last Admin: 08/11/16 02:18 Dose: 20 mg Montelukast Sodium (Singulair -) 10 mg PO HS [facility] Last Admin: 08/10/16 22:20 Dose: 10 mg Nystatin (Nystatin Oral Suspension -) 500,000 units PO Q6HPO [facility] Last Admin: 08/11/16 06:51 Dose: 500,000 units Ranolazine (Ranexa -) 500 mg PO BID [facility] Last Admin: 08/10/16 22:19 Dose: 500 mg Sodium Chloride ([place] Nasal [place] -) 2 spray NS Q2H PRN PRN Reason: NASAL CONGESTION Last Admin: 08/05/16 11:50 Dose: 2 sprays Verapamil HCl (Calan Sr -) 240 mg PO BID [facility] Last Admin: 08/10/16 22:20 Dose: 240 mg - Objective Vital Signs: Vital Signs Temperature 98.0 F 08/11/16 09:00 Pulse Rate 72 08/11/16 09:00 Respiratory Rate 19 08/11/16 09:00 Blood Pressure 128/50 08/11/16 09:00 O2 Sat by Pulse Oximetry (%) 94 L 08/10/16 21:00 Neck: Yes: Supple Cardiovascular: Yes: Regular Rate and Rhythm, S1, S2 Respiratory: Yes: Diminished Gastrointestinal: Yes: Normal Bowel Sounds, Soft. 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 Chest pain syndrome with known history of CAD post NE angina pectoris 2. Dyspnea consistent with acute exacerbation of COPD, probable RML pneumonia and current tobacco abuse 3. Chronic diastolic LV dysfunction with class I-II NYHA classification LV failure 4. HTN 5. Hypercholesterolemia 6. History of carotid stenosis post CEA 7. Mesenteric ischemia post intervention 8. PAD post intervention PLAN: 1. Continue Verapamil SR 240 mg BID 2. Continue Imdur 30 mg BID 3. Continue Ranexa 500 mg BID 4. ACEI or ARB if clinically tolerated 5. Continue Lipitor 80 mg QHS 6. Continue Lasix 20 mg QD 7. Continue ASA and Plavix 8. Antibiotic course, bronchodilator, IV steroids with GI prophylaxis, O2 and smoking cessation counselling 9. Follow up with Dr. Luis Eduardo Manning, patient's wastewater treatment supervisor upon discharge and nuclear myocardial perfusion imaging can be done as outpatient by her wastewater treatment supervisor. Further plans are to follow Gerard Nichols MD
[2016-08-11] MEDS ORDERED: PT OWN MED DRAWER 7, Y5N ONE ×2 (11:50→20:38)
--- NOTE | 2016-08-11 11:51 | PN ---
Progress Note, Physician Chief Complaint: felt weak and some chest tightness transfuse to keep Hg > 8 still with some cough and wheezing - Current Medication List Current Medications: Active Medications Acetaminophen (Tylenol -) 650 mg PO Q6H PRN PRN Reason: FEVER OR PAIN Aclidinium [place] (Tudorza -) 1 puff IH BID [facility] Last Admin: 08/10/16 22:21 Dose: 1 puff Al Hydroxide/Mg Hydroxide (Mylanta Oral Suspension -) 30 ml PO Q6H PRN PRN Reason: DYSPEPSIA Last Admin: 08/09/16 12:53 Dose: 30 ml Albuterol Sulfate (Ventolin 0.083% Nebulizer Soln -) 1 amp NEB Q6H PRN PRN Reason: SHORT OF BREATH/WHEEZING Last Admin: 08/11/16 07:19 Dose: 1 amp Atorvastatin Calcium (Lipitor -) 80 mg PO HS [facility] Last Admin: 08/10/16 22:19 Dose: 80 mg Clopidogrel Bisulfate (Plavix -) 75 mg PO DAILY [facility] Last Admin: 08/10/16 09:59 Dose: 75 mg Docusate Sodium (Colace -) 300 mg PO [facility] Ferrous Sulfate (Feosol -) 325 mg PO DAILY [facility] Last Admin: 08/10/16 12:09 Dose: 325 mg Folic Acid (Folic Acid -) 1 mg PO DAILY [facility] Last Admin: 08/10/16 09:58 Dose: 1 mg Furosemide (Lasix -) 20 mg PO DAILY [facility] Last Admin: 08/10/16 09:58 Dose: 20 mg Ceftriaxone Sodium (Rocephin 1gm Ivpb (Pre-Docked)) 50 mls @ 100 mls/hr IVPB DAILY [facility] Last Admin: 08/10/16 09:56 Dose: 100 mls/hr Azithromycin (Zithromax 500mg Ivpb (Pre-Docked)) 250 mls @ 250 mls/hr IVPB DAILY [facility] Last Admin: 08/10/16 09:57 Dose: 250 mls/hr Pantoprazole Sodium 80 mg/ (Sodium Chloride) 100 mls @ 10 mls/hr IVPB Q10H [facility] PRN Reason: 8 MG/HR Last Admin: 08/11/16 03:10 Dose: 10 mls/hr Isosorbide Mononitrate (Imdur -) 30 mg PO BID [facility] Last Admin: 08/10/16 22:20 Dose: 30 mg Methylprednisolone Sodium Succinate (Solu-Medrol -) 20 mg IVPB Q8H-IV [facility] Last Admin: 08/11/16 02:18 Dose: 20 mg Montelukast Sodium (Singulair -) 10 mg PO HS [facility] Last Admin: 08/10/16 22:20 Dose: 10 mg Nystatin (Nystatin Oral Suspension -) 500,000 units PO Q6HPO [facility] Last Admin: 08/11/16 06:51 Dose: 500,000 units Polyethylene Glycol (Miralax (For Daily Use) -) 17 gm PO DAILY PRN PRN Reason: CONSTIPATION Ranolazine (Ranexa -) 500 mg PO BID [facility] Last Admin: 08/10/16 22:19 Dose: 500 mg Sodium Chloride ([place] Nasal [place] -) 2 spray NS Q2H PRN PRN Reason: NASAL CONGESTION Last Admin: 08/05/16 11:50 Dose: 2 sprays Verapamil HCl (Calan Sr -) 240 mg PO BID [facility] Last Admin: 08/10/16 22:20 Dose: 240 mg - Objective Vital Signs: Vital Signs Temperature 98.0 F 08/11/16 09:00 Pulse Rate 74 08/11/16 11:31 Respiratory Rate 19 08/11/16 09:00 Blood Pressure 128/50 08/11/16 09:00 O2 Sat by Pulse Oximetry (%) 94 L 08/11/16 11:31 Constitutional: Yes: No Distress Eyes: Yes: Conjunctiva Clear HENT: Yes: Atraumatic Neck: Yes: Supple Cardiovascular: Yes: Regular Rate and Rhythm Respiratory: Yes: Rales, Wheezes Gastrointestinal: Yes: Soft. No: Distention, Tenderness Genitourinary: No: CVA Tenderness - Left, CVA Tenderness - Right, Hematuria Musculoskeletal: No: Joint Stiffness, Joint Swelling Extremities: No: Cold, Cool Edema: No Peripheral Pulses WNL: Yes Integumentary: No: Rash, Venous Stasis Changes Neurological: Yes: WNL, Alert, Oriented ...Motor Strength: WNL Psychiatric: Yes: WNL, Alert, Oriented. No: Agitated Labs: CBC, BMP 08/11/16 06:20 08/11/16 06:20 INR, PTT INR 1.02 (0.82-1.09) 08/09/16 07:00 - ....Imaging Other: Report Reviewed Assessment/Plan The patient is a 61 year old female with a significant past medical history of HTN, HLD, COPD, ASHD s/p IA, PVD, HBP, who presents to the Emergency Department with complaints of increased SOB and worsening productive cough since yesterday. She reports chest pain secondary to cough. She states that she received 5 nebulizer treatments without significant improvement. Pt reports 102 fever before admission. COPD exacerbation; URI vs PNA, h/o lung nodules h/o carotid ds and HTN diastolic CHF h/o heavy smoking taper IV steroids, continue IV ATB cardio and pulm f/u drop H&H superficial abdominal bruises and LUE bruise; heparin sq stopped; ASA and Plavix restarted s/p 1 U PRBC transfusion. Heme eval for anemia w/u and ?iv iron?; start po iron for now; will need GI and CONTENT DEVELOPMENT SPECIALIST f/u after DC from hospital, EGD colonoscopy and pap pelvic exams DVT falls PFX prognosis guarded d/w pt and staff
[2016-08-11] MEDS: CLOPIDOGREL BISULFATE 75 MG TABLET (FP) PO SCH (11:52)
[2016-08-11] MEDS: FOLIC ACID 1 MG TABLET (FP) PO SCH (11:52)
[2016-08-11] MEDS: ISOSORBIDE MONONITRATE 30 MG TAB.SR.24H (FP) PO SCH ×2 (11:52→21:42)
[2016-08-11] MEDS: FERROUS SO4 325 MG TABLET (FP) PO SCH (11:52)
[2016-08-11] MEDS: FUROSEMIDE 20 MG TABLET (FP) PO SCH (11:52)
[2016-08-11] MEDS: AZITHROMYCIN IVPB 250 ML IVPB SCH (11:53)
[2016-08-11] MEDS: VERAPAMIL HCL 240 MG E.R. TABLET (FP) PO SCH ×2 (11:53→21:40)
[2016-08-11] MEDS: RANOLAZINE E.R. 500 MG TABLET (FP) PO SCH ×2 (11:53→21:41)
[2016-08-11] MEDS: CEFTRIAXONE 50 ML IVPB SCH (11:54)
[2016-08-11] MEDS: ACLIDINIUM BROMIDE 400 MCG/INH AERO.POWD IH SCH ×2 (11:58→21:46)
--- NOTE | 2016-08-11 13:39 | PN ---
GI Progress Note Subjective: No acute events Still w/ cough, phlegm production and wheezing but Ms. Wei states feeling somewhat improved Anemia improved No melena/Rectal bleeding. No BM for 2 days - Objective Vital Signs: Vital Signs Temperature 98.0 F 08/11/16 09:00 Pulse Rate 74 08/11/16 11:31 Respiratory Rate 19 08/11/16 09:00 Blood Pressure 128/50 08/11/16 09:00 O2 Sat by Pulse Oximetry (%) 94 L 08/11/16 11:31 Constitutional: Calm Eyes: No: Sclera Icterus Cardiovascular: Yes: Regular Rate and Rhythm, Murmur Respiratory: Yes: Cough, Rhonchi (bases b/l), Wheezes (expiratory, b/l) Gastrointestinal Inspection: Yes: Other (significant ecchymoses abdominal wall) . No: Distention ...Auscultate: Yes: Normoactive Bowel Sounds ...Palpate: No: Tenderness Extremities: Yes: Other (ecchymosis , LUE) Edema: No Neurological: Yes: Alert, Oriented Labs: CBC, BMP 08/11/16 06:20 08/11/16 06:20 INR, PTT INR 1.02 (0.82-1.09) 08/09/16 07:00 Problem List - Problems (1) Anemia Assessment/Plan: Conservative measures given respiratory status PPI drip, monitor magnesium levels while on PPI Monitor H/H Code(s): D64.9 - ANEMIA, UNSPECIFIED
[2016-08-11] MEDS: POLYETHYLENE GLYCOL 3350 119 GM BTL PO PRN (14:03)
[2016-08-11] MEDS: MONTELUKAST NA 10 MG TABLET PO SCH (21:41)
[2016-08-11] MEDS: ATORVASTATIN CA 80 MG TABLET (FP) PO SCH (21:41)
[2016-08-11] MEDS: DOCUSATE SODIUM 100 MG CAPSULE (FP) PO SCH (21:44)
[2016-08-12] MEDS: methylPREDNISolone NA SUCC 40 MG/1 ML VIAL IVPB SCH ×3 (02:30→17:35)
[2016-08-12] MEDS: NYSTATIN 500,000 UNITS/5 ML SUSPENSION PO SCH ×4 (06:56→23:48)
[2016-08-12] MEDS ORDERED: PT OWN MED DRAWER 7, Y5N ONE ×3 (10:05→22:44)
[2016-08-12] MEDS: FERROUS SO4 325 MG TABLET (FP) PO SCH (10:15)
[2016-08-12] MEDS: CLOPIDOGREL BISULFATE 75 MG TABLET (FP) PO SCH (10:15)
[2016-08-12] MEDS: RANOLAZINE E.R. 500 MG TABLET (FP) PO SCH ×2 (10:16→21:46)
[2016-08-12] MEDS: FUROSEMIDE 20 MG TABLET (FP) PO SCH (10:16)
[2016-08-12] MEDS: CEFTRIAXONE 50 ML IVPB SCH (10:16)
[2016-08-12] MEDS: VERAPAMIL HCL 240 MG E.R. TABLET (FP) PO SCH ×2 (10:16→21:46)
[2016-08-12] MEDS: FOLIC ACID 1 MG TABLET (FP) PO SCH (10:16)
[2016-08-12] MEDS: ISOSORBIDE MONONITRATE 30 MG TAB.SR.24H (FP) PO SCH ×2 (10:16→21:45)
[2016-08-12] MEDS: ACLIDINIUM BROMIDE 400 MCG/INH AERO.POWD IH SCH ×2 (10:16→21:47)
[2016-08-12] MEDS: POLYETHYLENE GLYCOL 3350 119 GM BTL PO PRN (10:17)
[2016-08-12] MEDS: AZITHROMYCIN IVPB 250 ML IVPB SCH (10:51)
[2016-08-12 11:37] LABS: MCH 27.9 pg (25.7-33.7); MCHC 32.3 g/dl (32.0-36.0); MEAN CELL VOLUME 86.1 fl (80-96); MEAN PLT VOLUME 6.7 fl (7.5-11.1); PLATELET COUNT 354 K/MM3 (134-434); RDW 16.5 % (11.6-15.6); WHITE BLOOD COUNT 24.4 K/mm3 (4.0-10.0)
[2016-08-12] MEDS: ALBUTEROL SO4 0.083% IH SOL 2.5 MG/3 ML VIAL.NEB. NEB PRN ×3 (11:44→23:23)
[2016-08-12] MEDS: PANTOPRAZOLE SODIUM 80 MG in SODIUM CHLORIDE 100 ML IVPB SCH ×3 (12:07→22:47)
[2016-08-12 12:42] LABS: METAMYELOCYTE 2 % (0-2)
--- NOTE | 2016-08-12 14:35 | PN ---
Progress Note, Physician History of Present Illness: Slowly improving dyspnea and wheezing. - Current Medication List Current Medications: Active Medications Acetaminophen (Tylenol -) 650 mg PO Q6H PRN PRN Reason: FEVER OR PAIN Aclidinium [place] (Tudorza -) 1 puff IH BID [facility] Last Admin: 08/12/16 10:16 Dose: 1 puff Al Hydroxide/Mg Hydroxide (Mylanta Oral Suspension -) 30 ml PO Q6H PRN PRN Reason: DYSPEPSIA Last Admin: 08/09/16 12:53 Dose: 30 ml Albuterol Sulfate (Ventolin 0.083% Nebulizer Soln -) 1 amp NEB Q6H PRN PRN Reason: SHORT OF BREATH/WHEEZING Last Admin: 08/12/16 11:44 Dose: 1 amp Atorvastatin Calcium (Lipitor -) 80 mg PO HS [facility] Last Admin: 08/11/16 21:41 Dose: 80 mg Clopidogrel Bisulfate (Plavix -) 75 mg PO DAILY [facility] Last Admin: 08/12/16 10:15 Dose: 75 mg Docusate Sodium (Colace -) 300 mg PO [facility] Last Admin: 08/11/16 21:44 Dose: 300 mg Ferrous Sulfate (Feosol -) 325 mg PO DAILY [facility] Last Admin: 08/12/16 10:15 Dose: 325 mg Folic Acid (Folic Acid -) 1 mg PO DAILY [facility] Last Admin: 08/12/16 10:16 Dose: 1 mg Furosemide (Lasix -) 20 mg PO DAILY [facility] Last Admin: 08/12/16 10:16 Dose: 20 mg Ceftriaxone Sodium (Rocephin 1gm Ivpb (Pre-Docked)) 50 mls @ 100 mls/hr IVPB DAILY [facility] Last Admin: 08/12/16 10:16 Dose: 100 mls/hr Azithromycin (Zithromax 500mg Ivpb (Pre-Docked)) 250 mls @ 250 mls/hr IVPB DAILY [facility] Last Admin: 08/12/16 10:51 Dose: 250 mls/hr Pantoprazole Sodium 80 mg/ (Sodium Chloride) 100 mls @ 10 mls/hr IVPB Q10H [facility] PRN Reason: 8 MG/HR Last Admin: 08/12/16 12:07 Dose: 10 mls/hr Isosorbide Mononitrate (Imdur -) 30 mg PO BID [facility] Last Admin: 08/12/16 10:16 Dose: 30 mg Methylprednisolone Sodium Succinate (Solu-Medrol -) 20 mg IVPB Q8H-IV [facility] Last Admin: 08/12/16 10:16 Dose: 20 mg Montelukast Sodium (Singulair -) 10 mg PO HS [facility] Last Admin: 08/11/16 21:41 Dose: 10 mg Nystatin (Nystatin Oral Suspension -) 500,000 units PO Q6HPO [facility] Last Admin: 08/12/16 12:05 Dose: 500,000 units Polyethylene Glycol (Miralax (For Daily Use) -) 17 gm PO DAILY PRN PRN Reason: CONSTIPATION Last Admin: 08/12/16 10:17 Dose: 17 grams Ranolazine (Ranexa -) 500 mg PO BID [facility] Last Admin: 08/12/16 10:16 Dose: 500 mg Sodium Chloride ([place] Nasal [place] -) 2 spray NS Q2H PRN PRN Reason: NASAL CONGESTION Last Admin: 08/05/16 11:50 Dose: 2 sprays Verapamil HCl (Calan Sr -) 240 mg PO BID [facility] Last Admin: 08/12/16 10:16 Dose: 240 mg - Objective Vital Signs: Vital Signs Temperature 98.2 F 08/12/16 09:00 Pulse Rate 72 08/12/16 11:44 Respiratory Rate 18 08/12/16 09:00 Blood Pressure 138/57 08/12/16 09:00 O2 Sat by Pulse Oximetry (%) 99 08/12/16 11:44 Constitutional: Yes: No Distress, Calm Neck: Yes: Supple Cardiovascular: Yes: Regular Rate and Rhythm Respiratory: Yes: Regular, Diminished, On Nasal O2 Gastrointestinal: Yes: Normal Bowel Sounds, Soft Edema: No Labs: CBC, BMP 08/12/16 11:25 08/11/16 06:20 INR, PTT INR 1.02 (0.82-1.09) 08/09/16 07:00 Problem List - Problems (1) ASHD (arteriosclerotic heart disease) Code(s): I25.10 - ATHSCL HEART DISEASE OF [place] CORONARY ARTERY W/O ANG PCTRS (2) COPD exacerbation Code(s): J44.1 - CHRONIC OBSTRUCTIVE PULMONARY DISEASE W (ACUTE) EXACERBATION (3) Pneumonia Code(s): J18.9 - PNEUMONIA, UNSPECIFIED ORGANISM (4) Coronary artery disease Code(s): I25.10 - ATHSCL HEART DISEASE OF [place] CORONARY ARTERY W/O ANG PCTRS Qualifiers: Coronary Disease-Associated Artery/Lesion type: [place] artery [place] vs. 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 CAD h/o DC, angina pectoris 2. Dyspnea consistent with acute exacerbation of COPD, probable RML pneumonia and current tobacco abuse 3. Chronic diastolic LV dysfunction with class I-II NYHA classification LV failure 4. HTN 5. Hypercholesterolemia 6. History of carotid stenosis post CEA 7. Mesenteric ischemia post intervention 8. PAD post intervention 9. Anemia r/o GI bleed PLAN: 1. Continue Verapamil SR 240 mg BID 2. Continue Imdur 30 mg BID 3. Continue Ranexa 500 mg BID 4. Continue Lipitor 80 mg QHS 5. Continue Lasix 20 mg QD 6. D/c ASA 81 qd, continue Plavix 75 qd given anemia possible GI bleed, transfuse to maintain Hgb>8.0 7. Antibiotic course, bronchodilator, Singulair, slow IV steroid taper with DVT and Protonix, O2 and bedside PT, f/u bedside spirometry results 8. Follow up with Dr. Luis Eduardo Manning, patient's recreation attendant upon discharge and nuclear myocardial perfusion imaging can be done as outpatient by her recreation attendant.
--- NOTE | 2016-08-12 14:42 | PN ---
Progress Note, Physician History of Present Illness: Pt less dyspneic. - Current Medication List Current Medications: Active Medications Acetaminophen (Tylenol -) 650 mg PO Q6H PRN PRN Reason: FEVER OR PAIN Aclidinium [place] (Tudorza -) 1 puff IH BID [facility] Last Admin: 08/12/16 10:16 Dose: 1 puff Al Hydroxide/Mg Hydroxide (Mylanta Oral Suspension -) 30 ml PO Q6H PRN PRN Reason: DYSPEPSIA Last Admin: 08/09/16 12:53 Dose: 30 ml Albuterol Sulfate (Ventolin 0.083% Nebulizer Soln -) 1 amp NEB Q6H PRN PRN Reason: SHORT OF BREATH/WHEEZING Last Admin: 08/12/16 11:44 Dose: 1 amp Atorvastatin Calcium (Lipitor -) 80 mg PO HS [facility] Last Admin: 08/11/16 21:41 Dose: 80 mg Clopidogrel Bisulfate (Plavix -) 75 mg PO DAILY [facility] Last Admin: 08/12/16 10:15 Dose: 75 mg Docusate Sodium (Colace -) 300 mg PO [facility] Last Admin: 08/11/16 21:44 Dose: 300 mg Ferrous Sulfate (Feosol -) 325 mg PO DAILY [facility] Last Admin: 08/12/16 10:15 Dose: 325 mg Folic Acid (Folic Acid -) 1 mg PO DAILY [facility] Last Admin: 08/12/16 10:16 Dose: 1 mg Furosemide (Lasix -) 20 mg PO DAILY [facility] Last Admin: 08/12/16 10:16 Dose: 20 mg Ceftriaxone Sodium (Rocephin 1gm Ivpb (Pre-Docked)) 50 mls @ 100 mls/hr IVPB DAILY [facility] Last Admin: 08/12/16 10:16 Dose: 100 mls/hr Azithromycin (Zithromax 500mg Ivpb (Pre-Docked)) 250 mls @ 250 mls/hr IVPB DAILY [facility] Last Admin: 08/12/16 10:51 Dose: 250 mls/hr Pantoprazole Sodium 80 mg/ (Sodium Chloride) 100 mls @ 10 mls/hr IVPB Q10H [facility] PRN Reason: 8 MG/HR Last Admin: 08/12/16 12:07 Dose: 10 mls/hr Isosorbide Mononitrate (Imdur -) 30 mg PO BID [facility] Last Admin: 08/12/16 10:16 Dose: 30 mg Methylprednisolone Sodium Succinate (Solu-Medrol -) 20 mg IVPB Q8H-IV [facility] Last Admin: 08/12/16 10:16 Dose: 20 mg Montelukast Sodium (Singulair -) 10 mg PO HS [facility] Last Admin: 08/11/16 21:41 Dose: 10 mg Nystatin (Nystatin Oral Suspension -) 500,000 units PO Q6HPO [facility] Last Admin: 08/12/16 12:05 Dose: 500,000 units Polyethylene Glycol (Miralax (For Daily Use) -) 17 gm PO DAILY PRN PRN Reason: CONSTIPATION Last Admin: 08/12/16 10:17 Dose: 17 grams Ranolazine (Ranexa -) 500 mg PO BID [facility] Last Admin: 08/12/16 10:16 Dose: 500 mg Sodium Chloride ([place] Nasal [place] -) 2 spray NS Q2H PRN PRN Reason: NASAL CONGESTION Last Admin: 08/05/16 11:50 Dose: 2 sprays Verapamil HCl (Calan Sr -) 240 mg PO BID [facility] Last Admin: 08/12/16 10:16 Dose: 240 mg - Objective Vital Signs: Vital Signs Temperature 98.2 F 08/12/16 09:00 Pulse Rate 72 08/12/16 11:44 Respiratory Rate 18 08/12/16 09:00 Blood Pressure 138/57 08/12/16 09:00 O2 Sat by Pulse Oximetry (%) 99 08/12/16 11:44 Constitutional: Yes: No Distress Eyes: No: Sclera Icterus HENT: Yes: Atraumatic, Normocephalic Neck: Yes: Supple Cardiovascular: Yes: Regular Rate and Rhythm Respiratory: Yes: Rhonchi (scattered) Gastrointestinal: Yes: Soft. No: Palpable Mass Extremities: No: Calf Tenderness Edema: No Neurological: Yes: Alert, Oriented Labs: CBC, BMP 08/12/16 11:25 08/11/16 06:20 INR, PTT INR 1.02 (0.82-1.09) 08/09/16 07:00 Bedside PFT: FVC=1.55L=52% predicted FEV1=1.54L/S= 62% FEV 25-75= 64% Imp: Moderate obstruction/restriction Problem List - Problems (1) Pneumonia Code(s): J18.9 - PNEUMONIA, UNSPECIFIED ORGANISM (2) COPD exacerbation Code(s): J44.1 - CHRONIC OBSTRUCTIVE PULMONARY DISEASE W (ACUTE) EXACERBATION (3) Lung nodule < 6cm on CT Code(s): R91.1 - SOLITARY PULMONARY NODULE (4) ASHD (arteriosclerotic heart disease) Code(s): I25.10 - ATHSCL HEART DISEASE OF [place] CORONARY ARTERY W/O ANG PCTRS Assessment/Plan 61year old lady with: Pnuemonia- RML consolidation and and atelectasis not present on previous CT in 2015. Acute Exacerbation of COPD: respiratory status improving. Spirometry: moderate obstruction Lung Nodules- largest is 5 mm in RLL. No significant change in nodules on CT scans going back to 2013 suggesting they are benign. However, pt continues to smoke so is at increased risk to develop lung carcinoma. F/u low dose CT chest in one year ASHD-Pt has previous hx of severe CAD and peripheral vascular disease. Anemia: transfuse PRN. GI evaluation when medically stable (as outpt) Suggest: O2 to maintain SaO2>90 Inhaled bronchodilators Antibiotics Steroid taper in progress Monitor HCT
--- NOTE | 2016-08-12 20:12 | PN ---
Progress Note (short form) - Note Progress Note: Patient sen and examined Last Vital Signs Temp Pulse Resp BP Pulse Ox 98.3 F 66 20 107/49 99 08/12/16 17:12 08/12/16 17:12 08/12/16 17:12 08/12/16 17:12 08/12/16 11:44 HEENT: ENRIQUE, EOM Intact Cor: RSR, No murmurs, No gallops Lungs: Clear to P&A Abd: Soft, Normal bowel sounds, No organomegaly Ext:No significant edema Skin: No rashes, Integument intact Abnormal Lab Results 08/08/16 08/11/16 08/12/16 15:00 06:20 11:25 WBC 24.4 H RBC 3.18 L Hgb 8.9 L D Hct 27.4 L RDW 16.5 H MPV 6.7 L Neutrophils % 93.0 H Lymphocytes % 3.0 L D Monocytes % 1.0 L Haptoglobin 250 H Crossmatch See Detail Current Medications Acetaminophen (Tylenol -) 650 mg PO Q6H PRN PRN Reason: FEVER OR PAIN Aclidinium [place] (Tudorza -) 1 puff IH BID [facility] Last Admin: 08/12/16 10:16 Dose: 1 puff Al Hydroxide/Mg Hydroxide (Mylanta Oral Suspension -) 30 ml PO Q6H PRN PRN Reason: DYSPEPSIA Last Admin: 08/09/16 12:53 Dose: 30 ml Albuterol Sulfate (Ventolin 0.083% Nebulizer Soln -) 1 amp NEB Q6H PRN PRN Reason: SHORT OF BREATH/WHEEZING Last Admin: 08/12/16 18:11 Dose: 1 amp Atorvastatin Calcium (Lipitor -) [address] [facility] Last Admin: 08/11/16 21:41 Dose: 80 mg Clopidogrel Bisulfate (Plavix -) 75 mg PO DAILY [facility] Last Admin: 08/12/16 10:15 Dose: 75 mg Docusate Sodium (Colace -) [address] [facility] Last Admin: 08/11/16 21:44 Dose: 300 mg Ferrous Sulfate (Feosol -) 325 mg PO DAILY [facility] Last Admin: 08/12/16 10:15 Dose: 325 mg Folic Acid (Folic Acid -) 1 mg PO DAILY [facility] Last Admin: 08/12/16 10:16 Dose: 1 mg Furosemide (Lasix -) 20 mg PO DAILY [facility] Last Admin: 08/12/16 10:16 Dose: 20 mg Ceftriaxone Sodium (Rocephin 1gm Ivpb (Pre-Docked)) 50 mls @ 100 mls/hr IVPB DAILY [facility] Last Admin: 08/12/16 10:16 Dose: 100 mls/hr Azithromycin (Zithromax 500mg Ivpb (Pre-Docked)) 250 mls @ 250 mls/hr IVPB DAILY [facility] Last Admin: 08/12/16 10:51 Dose: 250 mls/hr Pantoprazole Sodium 80 mg/ (Sodium Chloride) 100 mls @ 10 mls/hr IVPB Q10H [facility] PRN Reason: 8 MG/HR Last Admin: 08/12/16 12:07 Dose: 10 mls/hr Isosorbide Mononitrate (Imdur -) 30 mg PO BID [facility] Last Admin: 08/12/16 10:16 Dose: 30 mg Methylprednisolone Sodium Succinate (Solu-Medrol -) 20 mg IVPB Q8H-IV [facility] Last Admin: 08/12/16 17:35 Dose: 20 mg Montelukast Sodium (Singulair -) 10 mg PO HS [facility] Last Admin: 08/11/16 21:41 Dose: 10 mg Nystatin (Nystatin Oral Suspension -) 500,000 units PO Q6HPO [facility] Last Admin: 08/12/16 17:35 Dose: 500,000 units Polyethylene Glycol (Miralax (For Daily Use) -) 17 gm PO DAILY PRN PRN Reason: CONSTIPATION Last Admin: 08/12/16 10:17 Dose: 17 grams Ranolazine (Ranexa -) 500 mg PO BID [facility] Last Admin: 08/12/16 10:16 Dose: 500 mg Sodium Chloride ([place] Nasal [place] -) 2 spray NS Q2H PRN PRN Reason: NASAL CONGESTION Last Admin: 08/05/16 11:50 Dose: 2 sprays Verapamil HCl (Calan Sr -) 240 mg PO BID [facility] Last Admin: 08/12/16 10:16 Dose: 240 mg A/P 61 y/o patient with h/o HTN, HLD, CAD, COPD, stable lung nodule, h/o carotid stenosis s/p CEA, h/o mesenteric ischemia --s/p SMA bypass in 2011, h/po PAD --s /p iliac endarterectomy, h/o Barretts esophagus, diverticulosis comes in with COPD exacerbation/RML pneumonia Anemia-- dropping hct since admission ? erosive gastritis/duodenitis + marrow suppression from ongoing infection low iron saturation. stool occult + B12/fT4--nl On protonix/feosol On plavix On steroid taper GI input appreciated Hgb 8.9 today transfuse for Hgb <8---s/p 1 unit 08/10
--- NOTE | 2016-08-12 21:28 | PN ---
Progress Note, Physician Chief Complaint: feels better but has sticky thick sputum, feels it stuck in her throat, asked for ENT eval - Current Medication List Current Medications: Active Medications Acetaminophen (Tylenol -) 650 mg PO Q6H PRN PRN Reason: FEVER OR PAIN Aclidinium [place] (Tudorza -) 1 puff IH BID [facility] Last Admin: 08/12/16 10:16 Dose: 1 puff Al Hydroxide/Mg Hydroxide (Mylanta Oral Suspension -) 30 ml PO Q6H PRN PRN Reason: DYSPEPSIA Last Admin: 08/09/16 12:53 Dose: 30 ml Albuterol Sulfate (Ventolin 0.083% Nebulizer Soln -) 1 amp NEB Q6H PRN PRN Reason: SHORT OF BREATH/WHEEZING Last Admin: 08/12/16 18:11 Dose: 1 amp Atorvastatin [place] (Lipitor -) 80 mg PO HS [facility] Last Admin: 08/11/16 21:41 Dose: 80 mg Azithromycin (Zithromax -) 500 mg PO DAILY [facility] Clopidogrel Bisulfate (Plavix -) 75 mg PO DAILY [facility] Last Admin: 08/12/16 10:15 Dose: 75 mg Docusate Sodium (Colace -) 300 mg PO HS [facility] Last Admin: 08/11/16 21:44 Dose: 300 mg Ferrous Sulfate (Feosol -) 325 mg PO DAILY [facility] Last Admin: 08/12/16 10:15 Dose: 325 mg Folic Acid (Folic Acid -) 1 mg PO DAILY [facility] Last Admin: 08/12/16 10:16 Dose: 1 mg Furosemide (Lasix -) 20 mg PO DAILY [facility] Last Admin: 08/12/16 10:16 Dose: 20 mg Ceftriaxone Sodium (Rocephin 1gm Ivpb (Pre-Docked)) 50 mls @ 100 mls/hr IVPB DAILY [facility] Last Admin: 08/12/16 10:16 Dose: 100 mls/hr Pantoprazole Sodium 80 mg/ (Sodium Chloride) 100 mls @ 10 mls/hr IVPB Q10H [facility] PRN Reason: 8 MG/HR Last Admin: 08/12/16 12:07 Dose: 10 mls/hr Isosorbide Mononitrate (Imdur -) 30 mg PO BID [facility] Last Admin: 08/12/16 10:16 Dose: 30 mg Methylprednisolone Sodium Succinate (Solu-Medrol -) 20 mg IVPB Q8H-IV [facility] Last Admin: 08/12/16 17:35 Dose: 20 mg Montelukast Sodium (Singulair -) 10 mg PO HS [facility] Last Admin: 08/11/16 21:41 Dose: 10 mg Nystatin (Nystatin Oral Suspension -) 500,000 units PO Q6HPO [facility] Last Admin: 08/12/16 17:35 Dose: 500,000 units Polyethylene Glycol (Miralax (For Daily Use) -) 17 gm PO DAILY PRN PRN Reason: CONSTIPATION Last Admin: 08/12/16 10:17 Dose: 17 grams Ranolazine (Ranexa -) 500 mg PO BID [facility] Last Admin: 08/12/16 10:16 Dose: 500 mg Sodium Chloride ([place] Nasal [place] -) 2 spray NS Q2H PRN PRN Reason: NASAL CONGESTION Last Admin: 08/05/16 11:50 Dose: 2 sprays Verapamil HCl (Calan Sr -) 240 mg PO BID [facility] Last Admin: 08/12/16 10:16 Dose: 240 mg - Objective Vital Signs: Vital Signs Temperature 98.3 F 08/12/16 17:12 Pulse Rate 66 08/12/16 17:12 Respiratory Rate 20 08/12/16 17:12 Blood Pressure 107/49 08/12/16 17:12 O2 Sat by Pulse Oximetry (%) 99 08/12/16 11:44 Constitutional: Yes: No Distress Eyes: Yes: Conjunctiva Clear HENT: Yes: Atraumatic Neck: Yes: Supple Cardiovascular: Yes: Regular Rate and Rhythm Respiratory: Yes: Rales, Wheezes (less) Gastrointestinal: Yes: Soft. No: Distention, Tenderness Musculoskeletal: No: Joint Stiffness, Joint Swelling Extremities: No: Cold, Cool Edema: No Peripheral Pulses WNL: Yes Integumentary: No: Rash, Venous Stasis Changes Neurological: Yes: WNL, Alert, Oriented ...Motor Strength: WNL Psychiatric: Yes: WNL, Alert, Oriented. No: Agitated Labs: CBC, BMP 08/12/16 11:25 08/11/16 06:20 INR, PTT INR 1.02 (0.82-1.09) 08/09/16 07:00 - ....Imaging Other: Report Reviewed Assessment/Plan The patient is a 61 year old female with a significant past medical history of HTN, HLD, COPD, ASHD s/p VT, PVD, HBP, who presents to the Emergency Department with complaints of increased SOB and worsening productive cough since yesterday. She reports chest pain secondary to cough. She states that she received 5 nebulizer treatments without significant improvement. Pt reports 102 fever before admission. COPD exacerbation; URI vs PNA, h/o lung nodules h/o carotid ds and HTN diastolic CHF h/o heavy smoking taper IV steroids, continue IV ATB cardio and pulm f/u drop H&H superficial abdominal bruises and LUE bruise; heparin sq stopped; ASA and Plavix restarted s/p 1 U PRBC transfusion. Heme f/u for anemia w/u; start po iron for now; will need GI and MOLDER SHOULDER PAD f/u after DC from hospital, EGD colonoscopy and pap pelvic exams DVT falls PFX prognosis guarded d/w pt and staff ENT tiffany
[2016-08-12] MEDS: ATORVASTATIN CA 80 MG TABLET (FP) PO SCH (21:45)
[2016-08-12] MEDS: DOCUSATE SODIUM 100 MG CAPSULE (FP) PO SCH (21:45)
[2016-08-12] MEDS: MONTELUKAST NA 10 MG TABLET PO SCH (21:45)
[2016-08-13] MEDS: methylPREDNISolone NA SUCC 40 MG/1 ML VIAL IVPB SCH ×3 (02:30→17:48)
[2016-08-13] MEDS: NYSTATIN 500,000 UNITS/5 ML SUSPENSION PO SCH ×3 (06:28→17:47)
[2016-08-13] MEDS: PANTOPRAZOLE SODIUM 80 MG in SODIUM CHLORIDE 100 ML IVPB SCH (06:28)
[2016-08-13 08:07] LABS: HEMATOCRIT 24.9 % (34.0-46.6)
[2016-08-13 08:28] LABS: MCH 28.7 pg (25.7-33.7); MCHC 33.3 g/dl (32.0-36.0); MEAN CELL VOLUME 86.3 fl (80-96); MEAN PLT VOLUME 6.6 fl (7.5-11.1); PLATELET COUNT 339 K/MM3 (134-434); RDW 16.5 % (11.6-15.6); WHITE BLOOD COUNT 17.7 K/mm3 (4.0-10.0)
[2016-08-13 09:20] LABS: ALBUMIN 3.3 g/dl (3.4-5.0); ANION GAP 8 (8-16); BILIRUBIN,TOTAL 0.7 mg/dL (0.2-1.0); CALCIUM 8.2 mg/dL (8.5-10.1); CO2 29 mmol/L (21-32); CREATININE 0.8 mg/dL (0.55-1.02); GLUCOSE,RANDOM 106 mg/dL (74-106); SGOT/AST 14 U/L (15-37); SGPT/ALT 38 U/L (12-78); TOT PROT 5.6 g/dl (6.4-8.2)
[2016-08-13 09:21] LABS: ALK PHOS 57 U/L (45-117)
[2016-08-13] MEDS: CEFTRIAXONE 50 ML IVPB SCH (09:35)
[2016-08-13] MEDS: FOLIC ACID 1 MG TABLET (FP) PO SCH (09:36)
[2016-08-13] MEDS: CLOPIDOGREL BISULFATE 75 MG TABLET (FP) PO SCH (09:36)
[2016-08-13] MEDS: FERROUS SO4 325 MG TABLET (FP) PO SCH (09:36)
[2016-08-13] MEDS: AZITHROMYCIN 250 MG TABLET (FP) PO SCH (09:36)
[2016-08-13] MEDS: FUROSEMIDE 20 MG TABLET (FP) PO SCH (09:36)
[2016-08-13] MEDS: RANOLAZINE E.R. 500 MG TABLET (FP) PO SCH ×2 (09:36→21:45)
[2016-08-13] MEDS: ACLIDINIUM BROMIDE 400 MCG/INH AERO.POWD IH SCH ×2 (10:56→21:46)
[2016-08-13] MEDS: ISOSORBIDE MONONITRATE 30 MG TAB.SR.24H (FP) PO SCH ×2 (10:56→21:40)
[2016-08-13] MEDS: VERAPAMIL HCL 240 MG E.R. TABLET (FP) PO SCH ×2 (10:56→21:40)
[2016-08-13] MEDS: ALBUTEROL SO4 0.083% IH SOL 2.5 MG/3 ML VIAL.NEB. NEB PRN ×3 (11:34→23:02)
--- NOTE | 2016-08-13 12:19 | PN ---
Progress Note, Physician Chief Complaint: Feels better Some cough but improved History of Present Illness: Patient was seen and examined. Awake and alert. Chart was reviewed Denies chest pain or palpitation Breathing comfortable - Current Medication List Current Medications: Active Medications Acetaminophen (Tylenol -) 650 mg PO Q6H PRN PRN Reason: FEVER OR PAIN Aclidinium [place] (Tudorza -) 1 puff IH BID [facility] Last Admin: 08/13/16 10:56 Dose: 1 puff Al Hydroxide/Mg Hydroxide (Mylanta Oral Suspension -) 30 ml PO Q6H PRN PRN Reason: DYSPEPSIA Last Admin: 08/09/16 12:53 Dose: 30 ml Albuterol Sulfate (Ventolin 0.083% Nebulizer Soln -) 1 amp NEB Q6H PRN PRN Reason: SHORT OF BREATH/WHEEZING Last Admin: 08/13/16 11:34 Dose: 1 amp Atorvastatin [place] (Lipitor -) 80 mg PO [facility] Last Admin: 08/12/16 21:45 Dose: 80 mg Azithromycin (Zithromax -) 500 mg PO DAILY [facility] Last Admin: 08/13/16 09:36 Dose: 500 mg Clopidogrel Bisulfate (Plavix -) 75 mg PO DAILY [facility] Last Admin: 08/13/16 09:36 Dose: 75 mg Docusate Sodium (Colace -) 300 mg PO [facility] Last Admin: 08/12/16 21:45 Dose: 300 mg Ferrous Sulfate (Feosol -) 325 mg PO DAILY [facility] Last Admin: 08/13/16 09:36 Dose: 325 mg Folic Acid (Folic Acid -) 1 mg PO DAILY [facility] Last Admin: 08/13/16 09:36 Dose: 1 mg Furosemide (Lasix -) 20 mg PO DAILY [facility] Last Admin: 08/13/16 09:36 Dose: 20 mg Ceftriaxone Sodium (Rocephin 1gm Ivpb (Pre-Docked)) 50 mls @ 100 mls/hr IVPB DAILY [facility] Last Admin: 08/13/16 09:35 Dose: 100 mls/hr Pantoprazole Sodium 80 mg/ (Sodium Chloride) 100 mls @ 10 mls/hr IVPB Q10H [facility] PRN Reason: 8 MG/HR Last Admin: 08/13/16 06:28 Dose: Not Given Isosorbide Mononitrate (Imdur -) 30 mg PO BID [facility] Last Admin: 08/13/16 10:56 Dose: 30 mg Methylprednisolone Sodium Succinate (Solu-Medrol -) 20 mg IVPB Q8H-IV [facility] Last Admin: 08/13/16 09:36 Dose: 20 mg Montelukast Sodium (Singulair -) 10 mg PO HS [facility] Last Admin: 08/12/16 21:45 Dose: 10 mg Nystatin (Nystatin Oral Suspension -) 500,000 units PO Q6HPO [facility] Last Admin: 08/13/16 06:28 Dose: 500,000 units Polyethylene Glycol (Miralax (For Daily Use) -) 17 gm PO DAILY PRN PRN Reason: CONSTIPATION Last Admin: 08/12/16 10:17 Dose: 17 grams Ranolazine (Ranexa -) 500 mg PO BID [facility] Last Admin: 08/13/16 09:36 Dose: 500 mg Sodium Chloride ([place] Nasal [place] -) 2 spray NS Q2H PRN PRN Reason: NASAL CONGESTION Last Admin: 08/05/16 11:50 Dose: 2 sprays Verapamil HCl (Calan Sr -) 240 mg PO BID [facility] Last Admin: 08/13/16 10:56 Dose: 240 mg - Objective Vital Signs: Vital Signs Temperature 98.4 F 08/13/16 05:47 Pulse Rate 63 08/13/16 05:47 Respiratory Rate 20 08/13/16 05:47 Blood Pressure 138/58 08/13/16 05:47 O2 Sat by Pulse Oximetry (%) 99 08/12/16 21:00 Neck: Yes: Supple Cardiovascular: Yes: Regular Rate and Rhythm, S1, S2 Respiratory: Yes: Diminished Gastrointestinal: Yes: Normal Bowel Sounds, Soft. 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 Chest pain syndrome with known history of CAD post MS angina pectoris 2. Dyspnea consistent with acute exacerbation of COPD, probable RML pneumonia and current tobacco abuse - improving 3. Chronic diastolic LV dysfunction with class I-II NYHA classification LV failure - improving 4. HTN 5. Hypercholesterolemia 6. History of carotid stenosis post CEA 7. Mesenteric ischemia post intervention 8. PAD post intervention PLAN: 1. Continue Verapamil SR 240 mg BID. 2. Continue Imdur 30 mg BID 3. Continue Ranexa 500 mg BID 4. Continue Lipitor 80 mg QHS 5. Continue Lasix 20 mg QD 6. Continue Plavix. ASA stopped yesterday 7. Antibiotic course, bronchodilator, IV steroids with GI prophylaxis, O2 and smoking cessation counselling 8. Follow up with Dr. Luis Eduardo Manning, patient's floodplain manager upon discharge and nuclear myocardial perfusion imaging can be done as outpatient by her floodplain manager. Further plans are to follow Gerard Nichols MD
--- NOTE | 2016-08-13 12:33 | PN ---
GI Progress Note Subjective: No acute events No upper abdominal burning Scant dark BMs, formed. She was started on PO iron 2 days ago. - Objective Vital Signs: Vital Signs Temperature 98.4 F 08/13/16 05:47 Pulse Rate 63 08/13/16 05:47 Respiratory Rate 20 08/13/16 05:47 Blood Pressure 138/58 08/13/16 05:47 O2 Sat by Pulse Oximetry (%) 99 08/12/16 21:00 Constitutional: Calm Eyes: No: Sclera Icterus Cardiovascular: Yes: Regular Rate and Rhythm Respiratory: Yes: Rhonchi (right base greater than left), Wheezes Edema: No Neurological: Yes: Alert, Oriented Labs: CBC, BMP 08/13/16 08:00 08/13/16 08:00 INR, PTT INR 1.02 (0.82-1.09) 08/09/16 07:00 Problem List - Problems (1) Anemia Assessment/Plan: H/H stable Changing to PO protonix Monitor H/H Procedures reserved for life threatening bleeding given her trenuous cardiopulomnary status Code(s): D64.9 - ANEMIA, UNSPECIFIED
[2016-08-13] MEDS: PANTOPRAZOLE 40 MG TABLET (FP) PO SCH (13:17)
--- NOTE | 2016-08-13 14:15 | PN ---
Progress Note, Physician History of Present Illness: Pt improved. Dyspnea has decreased - Current Medication List Current Medications: Active Medications Acetaminophen (Tylenol -) 650 mg PO Q6H PRN PRN Reason: FEVER OR PAIN Aclidinium [place] ([place]udorza -) 1 puff IH BID [facility] Last Admin: 08/13/16 10:56 Dose: 1 puff Al Hydroxide/Mg Hydroxide (Mylanta Oral Suspension -) 30 ml PO Q6H PRN PRN Reason: DYSPEPSIA Last Admin: 08/09/16 12:53 Dose: 30 ml Albuterol Sulfate (Ventolin 0.083% Nebulizer Soln -) 1 amp NEB Q6H PRN PRN Reason: SHORT OF BREATH/WHEEZING Last Admin: 08/13/16 11:34 Dose: 1 amp Atorvastatin Calcium (Lipitor -) 80 mg PO [facility] Last Admin: 08/12/16 21:45 Dose: 80 mg Azithromycin (Zithromax -) 500 mg PO DAILY [facility] Last Admin: 08/13/16 09:36 Dose: 500 mg Clopidogrel Bisulfate (Plavix -) 75 mg PO DAILY [facility] Last Admin: 08/13/16 09:36 Dose: 75 mg Docusate Sodium (Colace -) 300 mg PO [facility] Last Admin: 08/12/16 21:45 Dose: 300 mg Ferrous Sulfate (Feosol -) 325 mg PO DAILY [facility] Last Admin: 08/13/16 09:36 Dose: 325 mg Folic Acid (Folic Acid -) 1 mg PO DAILY [facility] Last Admin: 08/13/16 09:36 Dose: 1 mg Furosemide (Lasix -) 20 mg PO DAILY [facility] Last Admin: 08/13/16 09:36 Dose: 20 mg Ceftriaxone Sodium (Rocephin 1gm Ivpb (Pre-Docked)) 50 mls @ 100 mls/hr IVPB DAILY [facility] Last Admin: 08/13/16 09:35 Dose: 100 mls/hr Isosorbide Mononitrate (Imdur -) 30 mg PO BID [facility] Last Admin: 08/13/16 10:56 Dose: 30 mg Methylprednisolone Sodium Succinate (Solu-Medrol -) 20 mg IVPB Q8H-IV [facility] Last Admin: 08/13/16 09:36 Dose: 20 mg Montelukast Sodium (Singulair -) 10 mg PO HS [facility] Last Admin: 08/12/16 21:45 Dose: 10 mg Nystatin (Nystatin Oral Suspension -) 500,000 units PO Q6HPO [facility] Last Admin: 08/13/16 13:17 Dose: 500,000 units Pantoprazole Sodium (Protonix -) 40 mg PO DAILY [facility] Last Admin: 08/13/16 13:17 Dose: 40 mg Polyethylene Glycol (Miralax (For Daily Use) -) 17 gm PO DAILY PRN PRN Reason: CONSTIPATION Last Admin: 08/12/16 10:17 Dose: 17 grams Ranolazine (Ranexa -) 500 mg PO BID [facility] Last Admin: 08/13/16 09:36 Dose: 500 mg Sodium Chloride ([place] Nasal [place] -) 2 spray NS Q2H PRN PRN Reason: NASAL CONGESTION Last Admin: 08/05/16 11:50 Dose: 2 sprays Verapamil HCl (Calan Sr -) 240 mg PO BID [facility] Last Admin: 08/13/16 10:56 Dose: 240 mg - Objective Vital Signs: Vital Signs Temperature 98.4 F 08/13/16 05:47 Pulse Rate 63 08/13/16 05:47 Respiratory Rate 20 08/13/16 05:47 Blood Pressure 138/58 08/13/16 05:47 O2 Sat by Pulse Oximetry (%) 99 08/12/16 21:00 Constitutional: Yes: No Distress HENT: Yes: Atraumatic, Normocephalic Neck: Yes: Supple, Trachea Midline Cardiovascular: Yes: Regular Rate and Rhythm. No: JVD Respiratory: Yes: Rhonchi (scattered bilateral) Gastrointestinal: Yes: Soft. No: Tenderness Extremities: No: Calf Tenderness Edema: No Neurological: Yes: Alert, Oriented Labs: CBC, BMP 08/13/16 08:00 08/13/16 08:00 INR, PTT INR 1.02 (0.82-1.09) 08/09/16 07:00 Problem List - Problems (1) Pneumonia Code(s): J18.9 - PNEUMONIA, UNSPECIFIED ORGANISM (2) COPD exacerbation Code(s): J44.1 - CHRONIC OBSTRUCTIVE PULMONARY DISEASE W (ACUTE) EXACERBATION (3) Lung nodule < 6cm on CT Code(s): R91.1 - SOLITARY PULMONARY NODULE (4) ASHD (arteriosclerotic heart disease) Code(s): I25.10 - ATHSCL HEART DISEASE OF [place] CORONARY ARTERY W/O ANG PCTRS Assessment/Plan 61year old lady with: Pnuemonia- RML consolidation and and atelectasis not present on previous CT in 2015. Acute Exacerbation of COPD: respiratory significantly improved. Spirometry: moderate obstruction Lung Nodules- largest is 5 mm in RLL. No significant change in nodules on CT scans going back to 2013 suggesting they are benign. However, pt continues to smoke so is at increased risk to develop lung carcinoma. F/u low dose CT chest in one year ASHD-Pt has previous hx of severe CAD and peripheral vascular disease. Anemia: transfuse PRN. GI evaluation when medically stable (as outpt) Suggest: O2 to maintain SaO2>90 Inhaled bronchodilators Antibiotics Steroid taper in progress Monitor HCT
--- NOTE | 2016-08-13 18:12 | CON.ENT ---
Consult Consult Specialty:: ENT Referred by:: Suki Reason for Consultation:: Pills getting stuck - History of Present Illness Chief Complaint: pills getting stuck History of Present Illness: Pt with h/o Rios's esophagus on EGD 5 years ago. She has intermittent choking mild, chronically. But since being in the hospital she has felt more throat discomfort and pills occ getting stuck. Today is better than the other days however. No fever, no voice change. - History Source History Provided By: Patient, Medical Record Limitations to Obtaining History: No Limitations - Past Medical History Cardio/Vascular: Yes: CAD, HTN, MD (2011 transferred to [facility], no stents, told of ? Prinzmetal angina? ), Other (left ventricular end diastolic dysfunction, peripheral and carotid vascular disease ) Pulmonary: Yes: Asthma, COPD Gastrointestinal: Yes: Diverticulosis, Gastritis, GERD (with short segment Barretts), Hiatal Hernia, Other (Mesenteric ischemia treated with SMA bypass 2012. Incisional hernia.) Renal/: Yes: Renal Failure (required dialysis for several weeks following contrast induced renal fauilure after MD in 2011) Psych: Yes: Anxiety, Depression Endocrine: Yes: Other (Euthyroid goiter) - Past Surgical History Past Surgical History: Yes: Carotid Endarterectomy, Cholecystectomy, Colonoscopy , Upper Endoscopy Additional Surgical History: 2012 left iliac artery to SMA bypass as well as a left common iliac endarterectomy. 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 History of Recent Travel: No Home Medications - Allergies Allergies/Adverse Reactions: Allergies Allergy/AdvReac Type Severity Reaction Status Date / Time No Known Drug Allergies Allergy Verified 07/31/16 17:03 - Home Medications Home Medications: Ambulatory Orders Albuterol 2.5/Ipratropium 0.5 [Duoneb -] 1 neb NEB Q4H PRN #0 vial 12/27/12 Aspirin [ASA -] 81 mg PO DAILY #0 tab.chew 12/27/12 Atorvastatin Calcium [Lipitor] 80 mg PO HS #0 tablet 12/27/12 Clopidogrel Bisulfate [Plavix -] 75 mg PO DAILY #0 tablet 12/27/12 Folic Acid - 1 mg PO DAILY #0 tablet 12/27/12 Furosemide [Lasix -] 20 mg PO DAILY #0 tablet 12/27/12 Isosorbide Mononitrate [Imdur] 30 mg PO BID #0 tab.sr.24h 12/27/12 Montelukast Na [Singulair -] 10 mg PO HS #0 tablet 12/27/12 Ranitidine [Zantac -] 150 mg PO DAILY #0 tablet 12/27/12 Tiotropium [place] [Spiriva] 1 inh IH DAILY #0 inh 12/27/12 Verapamil HCl ER [Calan Sr -] 180 mg PO BID #0 tablet.er 12/27/12 Fluticasone Prop 0.05% Nasal [Flonase -] 1 - 2 spray NS BID #1 spray.pump Acetaminophen [Tylenol .Regular Strength -] 650 mg PO Q6H PRN #0 tablet Mag Hydrox/Al Hydrox/Simeth [Mylanta Oral Suspension -] 30 ml PO Q6H PRN #0 cup 04/16/15 Sodium Chloride Nasal [place] [[place] Nasal [place] -] 2 spray NS Q2H PRN #0 bottle 04/16/15 Nystatin Oral Suspension - [Nystatin Oral Susp 485392 Units/5 ML -] 500,000 units PO Q6HPO 14 Days 04/17/15 Family Disease History - Family Disease History Family Disease History: Heart Disease: Father ( 73 of melanoma), Mother ( 73 of COPD), Brother ( of throat cancer), CA: Father, Brother, Respiratory: Mother Physical Exam-ENT Vital Signs: Vital Signs Temperature 98.4 F 08/13/16 17:12 Pulse Rate 81 08/13/16 17:12 Respiratory Rate 20 08/13/16 17:12 Blood Pressure 153/55 08/13/16 17:12 O2 Sat by Pulse Oximetry (%) 99 08/13/16 14:53 Constitutional: Yes: Well Nourished, No Distress Head: Yes: WNL, Atraumatic, Normocephalic Face: Yes: WNL, Symmetrical Eyes: Yes: WNL Nose: Yes: WNL Nasal Passage: Yes: WNL Oral/Pharynx: Yes: WNL Outer Ear: Yes: WNL Ear Canal: Yes: WNL Neck: Yes: WNL Problem List - Problems (1) LPRD (laryngopharyngeal reflux disease) Assessment/Plan: This is the most likely cause of dysphagia Code(s): J38.7 - OTHER DISEASES OF [place] (2) Dysphagia, pharyngeal phase Assessment/Plan: GERD may be the cause. She should have f/u EGD as an outpatient. Also consider a barium esophagram. No change in meds needed. Code(s): R13.13 - DYSPHAGIA, PHARYNGEAL PHASE Procedure Note Procedure: Laryngoscopy: After using topical afrin/lidocaine. FPL via the right nostril was performed. The exam was NORMAL. No masses, lesions, paralysis. No pooling. The scope was withdrawn and there were no complications
[2016-08-13] MEDS: ATORVASTATIN CA 80 MG TABLET (FP) PO SCH (21:40)
[2016-08-13] MEDS: DOCUSATE SODIUM 100 MG CAPSULE (FP) PO SCH (21:40)
[2016-08-13] MEDS: MONTELUKAST NA 10 MG TABLET PO SCH (21:40)
[2016-08-13] MEDS ORDERED: PT OWN MED DRAWER 7, Y5N ONE (21:42)
--- NOTE | 2016-08-13 22:38 | PN ---
Progress Note, Physician Chief Complaint: feels better less SOB no CP - Current Medication List Current Medications: Active Medications Acetaminophen (Tylenol -) 650 mg PO Q6H PRN PRN Reason: FEVER OR PAIN Aclidinium [place] (Tudorza -) 1 puff IH BID [facility] Last Admin: 08/13/16 21:46 Dose: 1 puff Al Hydroxide/Mg Hydroxide (Mylanta Oral Suspension -) 30 ml PO Q6H PRN PRN Reason: DYSPEPSIA Last Admin: 08/09/16 12:53 Dose: 30 ml Albuterol Sulfate (Ventolin 0.083% Nebulizer Soln -) 1 amp NEB Q6H PRN PRN Reason: SHORT OF BREATH/WHEEZING Last Admin: 08/13/16 17:51 Dose: 1 amp Atorvastatin Calcium (Lipitor -) 80 mg PO [facility] Last Admin: 08/13/16 21:40 Dose: 80 mg Azithromycin (Zithromax -) 500 mg PO DAILY [facility] Last Admin: 08/13/16 09:36 Dose: 500 mg Clopidogrel Bisulfate (Plavix -) 75 mg PO DAILY [facility] Last Admin: 08/13/16 09:36 Dose: 75 mg Docusate Sodium (Colace -) 300 mg PO [facility] Last Admin: 08/13/16 21:40 Dose: 300 mg Ferrous Sulfate (Feosol -) 325 mg PO DAILY [facility] Last Admin: 08/13/16 09:36 Dose: 325 mg Folic Acid (Folic Acid -) 1 mg PO DAILY [facility] Last Admin: 08/13/16 09:36 Dose: 1 mg Furosemide (Lasix -) 20 mg PO DAILY [facility] Last Admin: 08/13/16 09:36 Dose: 20 mg Ceftriaxone Sodium (Rocephin 1gm Ivpb (Pre-Docked)) 50 mls @ 100 mls/hr IVPB DAILY [facility] Last Admin: 08/13/16 09:35 Dose: 100 mls/hr Isosorbide Mononitrate (Imdur -) 30 mg PO BID [facility] Last Admin: 08/13/16 21:40 Dose: 30 mg Methylprednisolone Sodium Succinate (Solu-Medrol -) 20 mg IVPB Q8H-IV [facility] Last Admin: 08/13/16 17:48 Dose: 20 mg Montelukast Sodium (Singulair -) 10 mg PO HS [facility] Last Admin: 08/13/16 21:40 Dose: 10 mg Nystatin (Nystatin Oral Suspension -) 500,000 units PO Q6HPO [facility] Last Admin: 08/13/16 17:47 Dose: 500,000 units Pantoprazole Sodium (Protonix -) 40 mg PO DAILY [facility] Last Admin: 08/13/16 13:17 Dose: 40 mg Polyethylene Glycol (Miralax (For Daily Use) -) 17 gm PO DAILY PRN PRN Reason: CONSTIPATION Last Admin: 08/12/16 10:17 Dose: 17 grams Ranolazine (Ranexa -) 500 mg PO BID [facility] Last Admin: 08/13/16 21:45 Dose: 500 mg Sodium Chloride ([place] Nasal [place] -) 2 spray NS Q2H PRN PRN Reason: NASAL CONGESTION Last Admin: 08/05/16 11:50 Dose: 2 sprays Verapamil HCl (Calan Sr -) 240 mg PO BID [facility] Last Admin: 08/13/16 21:40 Dose: 240 mg - Objective Vital Signs: Vital Signs Temperature 98.4 F 08/13/16 17:12 Pulse Rate 81 08/13/16 17:12 Respiratory Rate 20 08/13/16 18:37 Blood Pressure 153/55 08/13/16 17:12 O2 Sat by Pulse Oximetry (%) 99 08/13/16 18:37 Constitutional: Yes: No Distress Eyes: Yes: Conjunctiva Clear HENT: Yes: Atraumatic Neck: Yes: Supple Cardiovascular: Yes: Regular Rate and Rhythm Respiratory: Yes: Rales (less), Wheezes Gastrointestinal: Yes: Soft. No: Distention, Tenderness Genitourinary: No: CVA Tenderness - Left, CVA Tenderness - Right Musculoskeletal: No: Joint Stiffness, Joint Swelling Extremities: No: Cold, Cool Edema: No Peripheral Pulses WNL: Yes Integumentary: No: Rash, Venous Stasis Changes Neurological: Yes: WNL, Alert, Oriented ...Motor Strength: WNL Psychiatric: Yes: WNL, Alert, Oriented. No: Agitated Labs: CBC, BMP 08/13/16 08:00 08/13/16 08:00 INR, PTT INR 1.02 (0.82-1.09) 08/09/16 07:00 - ....Imaging Other: Report Reviewed Assessment/Plan The patient is a 61 year old female with a significant past medical history of HTN, HLD, COPD, ASHD s/p [place], PVD, HBP, who presents to the Emergency Department with complaints of increased SOB and worsening productive cough since yesterday. She reports chest pain secondary to cough. She states that she received 5 nebulizer treatments without significant improvement. Pt reports 102 fever before admission. COPD exacerbation; URI vs PNA, h/o lung nodules h/o carotid ds and HTN diastolic CHF h/o heavy smoking taper IV steroids, continue IV ATB cardio and pulm f/u heme f/u for anemia will need GI and [employer] f/u after DC from hospital, EGD colonoscopy and pap pelvic exams DVT falls PFX prognosis guarded d/w pt and staff ENT evleatha
[2016-08-14] MEDS: NYSTATIN 500,000 UNITS/5 ML SUSPENSION PO SCH ×4 (00:06→17:56)
[2016-08-14] MEDS: methylPREDNISolone NA SUCC 40 MG/1 ML VIAL IVPB SCH ×3 (01:54→17:56)
[2016-08-14] MEDS: FERROUS SO4 325 MG TABLET (FP) PO SCH (10:16)
[2016-08-14] MEDS: CEFTRIAXONE 50 ML IVPB SCH (10:16)
[2016-08-14] MEDS: VERAPAMIL HCL 240 MG E.R. TABLET (FP) PO SCH ×2 (10:16→21:15)
[2016-08-14] MEDS: FOLIC ACID 1 MG TABLET (FP) PO SCH (10:16)
[2016-08-14] MEDS: FUROSEMIDE 20 MG TABLET (FP) PO SCH (10:17)
[2016-08-14] MEDS: ISOSORBIDE MONONITRATE 30 MG TAB.SR.24H (FP) PO SCH ×2 (10:17→21:17)
[2016-08-14] MEDS: CLOPIDOGREL BISULFATE 75 MG TABLET (FP) PO SCH (10:17)
[2016-08-14] MEDS: PANTOPRAZOLE 40 MG TABLET (FP) PO SCH (10:17)
[2016-08-14] MEDS: RANOLAZINE E.R. 500 MG TABLET (FP) PO SCH ×2 (10:17→21:17)
[2016-08-14] MEDS: AZITHROMYCIN 250 MG TABLET (FP) PO SCH (10:17)
[2016-08-14] MEDS ORDERED: FUROSEMIDE 40 MG/4 ML INJECTABLE VIAL ONE (10:22)
[2016-08-14] MEDS ORDERED: PT OWN MED DRAWER 7, Y5N ONE (11:38)
[2016-08-14] MEDS: ALBUTEROL SO4 0.083% IH SOL 2.5 MG/3 ML VIAL.NEB. NEB PRN ×2 (11:57→18:05)
[2016-08-14] MEDS: ACLIDINIUM BROMIDE 400 MCG/INH AERO.POWD IH SCH ×2 (12:00→21:17)
[2016-08-14] MEDS: FUROSEMIDE 40 MG/4 ML INJECTABLE VIAL IVPUSH SCH (12:00)
--- NOTE | 2016-08-14 12:48 | PN ---
Progress Note (short form) - Note Progress Note: Patient seen and examined Continues with SOB, dyspnea, sputum production Last Vital Signs Temp Pulse Resp BP Pulse Ox 98.5 F 73 20 147/63 99 08/14/16 05:58 08/14/16 11:55 08/14/16 05:58 08/14/16 05:58 08/14/16 11:55 Nasal Oxygen Lungs with decreased breath sounds bilaterally Cor_RSR Abd- soft Ext- No significant edema CBC, BMP 08/13/16 08:00 08/13/16 08:00 Current Medications Generic Name Dose Route Start Last Admin Trade Name Freq PRN Reason Stop Dose Admin Acetaminophen 650 mg 07/31/16 23:55 Tylenol - PO Q6H PRN FEVER OR PAIN Aclidinium [employer] [place] 1 puff 08/01/16 10:00 08/14/16 12:00 Tudorza - IH 1 puff BID CHANDA Administration Al Hydroxide/Mg Hydroxide 30 ml 07/31/16 23:56 08/09/16 12:53 Mylanta Oral Suspension - PO 30 ml Q6H PRN Administration DYSPEPSIA Albuterol Sulfate 1 amp 08/06/16 15:27 08/14/16 11:57 Ventolin 0.083% Nebulizer Soln - NEB 1 amp Q6H PRN Administration SHORT OF BREATH/WHEEZING Alprazolam 0.25 mg 08/14/16 10:48 Xanax - PO BID PRN ANXIETY Atorvastatin Calcium 80 mg 08/01/16 01:00 08/13/16 21:40 Lipitor - PO 80 mg HS CHANDA Administration Clopidogrel Bisulfate 75 mg 08/01/16 10:00 08/14/16 10:17 Plavix - PO 75 mg DAILY CHANDA Administration Docusate Sodium 300 mg 08/11/16 22:00 08/13/16 21:40 Colace - PO 300 mg HS CHANDA Administration Ferrous Sulfate 325 mg 08/10/16 11:15 08/14/16 10:16 Feosol - PO 325 mg DAILY [facility]ANDA Administration Folic Acid 1 mg 08/01/16 10:00 08/14/16 10:16 Folic Acid - PO 1 mg DAILY [facility]DA Administration Furosemide 20 mg 08/14/16 11:00 08/14/16 12:00 Lasix Injection - IVPUSH 20 mg DAILY CH[facility]DA Administration Ceftriaxone Sodium 50 mls @ 100 mls/hr 08/01/16 10:00 08/14/16 10:16 Rocephin 1gm Ivpb (Pre-Docked) IVPB 100 mls/hr DAILY [facility] Administration Isosorbide Mononitrate 30 mg 08/02/16 22:00 08/14/16 10:17 Imdur - PO 30 mg BID [facility] Administration Methylprednisolone Sodium Succinate 20 mg 08/10/16 11:02 08/14/16 10:16 Solu-Medrol - IVPB 20 mg Q8H-IV CHANDA Administration Montelukast Sodium 10 mg 08/01/16 01:00 08/13/16 21:40 Singulair - PO 10 mg HS [facility]DA Administration Nystatin 500,000 units 08/02/16 00:00 08/14/16 12:02 Nystatin Oral Suspension - PO 500,000 units Q6HPO [facility] Administration Pantoprazole Sodium 40 mg 08/13/16 12:45 08/14/16 10:17 Protonix - PO 40 mg DAILY [facility] Administration Polyethylene Glycol 17 gm 08/11/16 11:41 08/12/16 10:17 Miralax (For Daily Use) - PO 17 grams DAILY PRN Administration CONSTIPATION Ranolazine 500 mg 08/02/16 22:00 08/14/16 10:17 Ranexa - PO 500 mg BID [facility] Administration Sodium Chloride 2 spray 07/31/16 23:56 08/05/16 11:50 [place] Nasal [place] - NS 2 sprays Q2H PRN Administration NASAL CONGESTION Verapamil HCl 240 mg 08/02/16 22:00 08/14/16 10:16 Calan Sr - PO 240 mg BID [facility]DA Administration Problem List - Problems (1) COPD exacerbation Code(s): J44.1 - CHRONIC OBSTRUCTIVE PULMONARY DISEASE W (ACUTE) EXACERBATION (2) Coronary artery disease Code(s): I25.10 - ATHSCL HEART DISEASE OF [place] CORONARY ARTERY W/O ANG PCTRS Qualifiers: Coronary Disease-Associated Artery/Lesion type: [place] artery [place] vs. transplanted heart: [place] heart Associated angina: without angina Qualified Code(s): I25.10 - Atherosclerotic heart disease of [place] coronary artery without angina pectoris (3) Diverticula of colon Code(s): K57.30 - DVRTCLOS OF LG INT W/O PERFORATION OR ABSCESS W/O BLEEDING (4) Hyperlipidemia Code(s): E78.5 - HYPERLIPIDEMIA, UNSPECIFIED Qualifiers: Hyperlipidemia type: pure hypercholesterolemia Qualified Code(s): E78.0 - Pure hypercholesterolemia (5) Lung nodule < 6cm on CT Code(s): R91.1 - SOLITARY PULMONARY NODULE (6) Peripheral artery disease Code(s): I73.9 - PERIPHERAL VASCULAR DISEASE, UNSPECIFIED (7) Anemia Assessment/Plan: Review of lab data reveal Normal B-12, folate. TSH x 2 - low compatible with hyperthyroidism Fe++/TIBC -- 23/307 % saturation 7% Offered patient IV Venofer -She declined. Would continue with oral Fe++ and Vitamin C therapy. Code(s): D64.9 - ANEMIA, UNSPECIFIED
[2016-08-14] MEDS: ALPRAZolam 0.25 MG TABLET PO PRN (13:36)
[2016-08-14] MEDS: MONTELUKAST NA 10 MG TABLET PO SCH (21:15)
[2016-08-14] MEDS: ATORVASTATIN CA 80 MG TABLET (FP) PO SCH (21:15)
[2016-08-14] MEDS: DOCUSATE SODIUM 100 MG CAPSULE (FP) PO SCH (21:17)
--- NOTE | 2016-08-14 21:39 | PN ---
Progress Note, Physician Chief Complaint: could not sleep last night, feels anxious and discouraged; has some trace feet edema bilateral, no calves or legs or feet pain but pt very worried about the trace edema; she keeps her feet down long time, advised to elevate legs, quarles switch lasix to IV for now - Current Medication List Current Medications: Active Medications Acetaminophen (Tylenol -) 650 mg PO Q6H PRN PRN Reason: FEVER OR PAIN Aclidinium [place] (Tudorza -) 1 puff IH BID [facility] Last Admin: 08/14/16 21:17 Dose: 1 puff Al Hydroxide/Mg Hydroxide (Mylanta Oral Suspension -) 30 ml PO Q6H PRN PRN Reason: DYSPEPSIA Last Admin: 08/09/16 12:53 Dose: 30 ml Albuterol Sulfate (Ventolin 0.083% Nebulizer Soln -) 1 amp NEB Q6H PRN PRN Reason: SHORT OF BREATH/WHEEZING Last Admin: 08/14/16 18:05 Dose: 1 amp Alprazolam (Xanax -) 0.25 mg PO BID PRN PRN Reason: ANXIETY Last Admin: 08/14/16 13:36 Dose: 0.25 mg Atorvastatin Calcium (Lipitor -) 80 mg PO HS [facility] Last Admin: 08/14/16 21:15 Dose: 80 mg Clopidogrel Bisulfate (Plavix -) 75 mg PO DAILY [facility] Last Admin: 08/14/16 10:17 Dose: 75 mg Docusate Sodium (Colace -) 300 mg PO HS [facility] Last Admin: 08/14/16 21:17 Dose: 300 mg Ferrous Sulfate (Feosol -) 325 mg PO DAILY [facility] Last Admin: 08/14/16 10:16 Dose: 325 mg Folic Acid (Folic Acid -) 1 mg PO DAILY [facility] Last Admin: 08/14/16 10:16 Dose: 1 mg Furosemide (Lasix Injection -) 20 mg IVPUSH DAILY [facility] Last Admin: 08/14/16 12:00 Dose: 20 mg Ceftriaxone Sodium (Rocephin 1gm Ivpb (Pre-Docked)) 50 mls @ 100 mls/hr IVPB DAILY [facility] Last Admin: 08/14/16 10:16 Dose: 100 mls/hr Isosorbide Mononitrate (Imdur -) 30 mg PO BID [facility] Last Admin: 08/14/16 21:17 Dose: 30 mg Methylprednisolone Sodium Succinate (Solu-Medrol -) 20 mg IVPB Q8H-IV [facility] Last Admin: 08/14/16 17:56 Dose: 20 mg Montelukast Sodium (Singulair -) 10 mg PO HS [facility] Last Admin: 08/14/16 21:15 Dose: 10 mg Nystatin (Nystatin Oral Suspension -) 500,000 units PO Q6HPO [facility] Last Admin: 08/14/16 17:56 Dose: 500,000 units Pantoprazole Sodium (Protonix -) 40 mg PO DAILY [facility] Last Admin: 08/14/16 10:17 Dose: 40 mg Polyethylene Glycol (Miralax (For Daily Use) -) 17 gm PO DAILY PRN PRN Reason: CONSTIPATION Last Admin: 08/12/16 10:17 Dose: 17 grams Ranolazine (Ranexa -) 500 mg PO BID [facility] Last Admin: 08/14/16 21:17 Dose: 500 mg Sodium Chloride ([place] Nasal [place] -) 2 spray NS Q2H PRN PRN Reason: NASAL CONGESTION Last Admin: 08/05/16 11:50 Dose: 2 sprays Verapamil HCl (Calan Sr -) 240 mg PO BID [facility] Last Admin: 08/14/16 21:15 Dose: 240 mg - Objective Vital Signs: Vital Signs Temperature 97.5 F L 08/14/16 18:00 Pulse Rate 82 08/14/16 18:00 Respiratory Rate 20 08/14/16 18:00 Blood Pressure 121/51 08/14/16 18:00 O2 Sat by Pulse Oximetry (%) 99 08/14/16 11:55 Constitutional: Yes: No Distress, Anxious Eyes: Yes: Conjunctiva Clear HENT: Yes: Atraumatic Neck: Yes: Supple Cardiovascular: Yes: Regular Rate and Rhythm Respiratory: Yes: Rales (better) Gastrointestinal: Yes: Soft. No: Distention, Tenderness Genitourinary: No: CVA Tenderness - Left, CVA Tenderness - Right Musculoskeletal: No: Joint Stiffness, Joint Swelling Extremities: No: Cold, Cool Edema: Yes (pedal trace bilateral ) Peripheral Pulses WNL: Yes Integumentary: No: Rash, Venous Stasis Changes Neurological: Yes: WNL, Alert, Oriented ...Motor Strength: WNL Psychiatric: Yes: WNL, Alert, Oriented. No: Agitated Labs: CBC, BMP 08/13/16 08:00 08/13/16 08:00 INR, PTT INR 1.02 (0.82-1.09) 08/09/16 07:00 - ....Imaging Other: Report Reviewed Assessment/Plan The patient is a 61 year old female with a significant past medical history of HTN, HLD, COPD, ASHD s/p [place], PVD, HBP, who presents to the Emergency Department with complaints of increased SOB and worsening productive cough. COPD exacerbation; URI vs PNA, h/o lung nodules h/o carotid ds and HTN diastolic CHF h/o heavy smoking taper IV steroids, continue IV ATB cardio and pulm f/u heme f/u for anemia DVT falls PFX prognosis guarded d/w pt and staff ENT consult d/w pt
[2016-08-15] MEDS: methylPREDNISolone NA SUCC 40 MG/1 ML VIAL IVPB SCH ×3 (01:36→21:45)
[2016-08-15] MEDS: NYSTATIN 500,000 UNITS/5 ML SUSPENSION PO SCH ×4 (06:21→18:22)
[2016-08-15 07:52] LABS: BASOPHIL 0.1 % (0-2.0); EOSINOPHIL 0.1 % (0-4.5); MCH 28.4 pg (25.7-33.7); MCHC 32.8 g/dl (32.0-36.0); MEAN CELL VOLUME 86.6 fl (80-96); MEAN PLT VOLUME 6.5 fl (7.5-11.1); NEUTROPHILS 93.6 % (42.8-82.8); PLATELET COUNT 302 K/MM3 (134-434); RDW 16.6 % (11.6-15.6); WHITE BLOOD COUNT 13.9 K/mm3 (4.0-10.0)
[2016-08-15 08:34] LABS: CALCIUM 8.2 mg/dL (8.5-10.1); CREATININE 0.6 mg/dL (0.55-1.02)
[2016-08-15] MEDS: ISOSORBIDE MONONITRATE 30 MG TAB.SR.24H (FP) PO SCH ×2 (11:03→21:45)
[2016-08-15] MEDS: PANTOPRAZOLE 40 MG TABLET (FP) PO SCH (11:03)
[2016-08-15] MEDS: FUROSEMIDE 40 MG/4 ML INJECTABLE VIAL IVPUSH SCH (11:03)
[2016-08-15] MEDS: CLOPIDOGREL BISULFATE 75 MG TABLET (FP) PO SCH (11:04)
[2016-08-15] MEDS: FOLIC ACID 1 MG TABLET (FP) PO SCH (11:04)
[2016-08-15] MEDS: POLYETHYLENE GLYCOL 3350 119 GM BTL PO PRN (11:04)
[2016-08-15] MEDS: VERAPAMIL HCL 240 MG E.R. TABLET (FP) PO SCH ×2 (11:04→21:44)
[2016-08-15] MEDS: FERROUS SO4 325 MG TABLET (FP) PO SCH (11:04)
[2016-08-15] MEDS: RANOLAZINE E.R. 500 MG TABLET (FP) PO SCH ×2 (11:04→21:45)
[2016-08-15] MEDS: ACLIDINIUM BROMIDE 400 MCG/INH AERO.POWD IH SCH ×2 (11:05→21:46)
[2016-08-15] MEDS: CEFTRIAXONE 50 ML IVPB SCH (11:05)
[2016-08-15] MEDS: ALBUTEROL SO4 0.083% IH SOL 2.5 MG/3 ML VIAL.NEB. NEB PRN ×2 (11:20→20:00)
--- NOTE | 2016-08-15 11:36 | PN ---
Progress Note, Physician Chief Complaint: in bed feels better slept well; no CP/SOB at rest, no bleed - Current Medication List Current Medications: Active Medications Acetaminophen (Tylenol -) 650 mg PO Q6H PRN PRN Reason: FEVER OR PAIN Aclidinium [place] ([place] -) 1 puff IH BID [facility] Last Admin: 08/15/16 11:05 Dose: 1 puff Al Hydroxide/Mg Hydroxide (Mylanta Oral Suspension -) 30 ml PO Q6H PRN PRN Reason: DYSPEPSIA Last Admin: 08/09/16 12:53 Dose: 30 ml Albuterol Sulfate (Ventolin 0.083% Nebulizer Soln -) 1 amp NEB Q6H PRN PRN Reason: SHORT OF BREATH/WHEEZING Last Admin: 08/14/16 18:05 Dose: 1 amp Alprazolam (Xanax -) 0.25 mg PO BID PRN PRN Reason: ANXIETY Last Admin: 08/14/16 13:36 Dose: 0.25 mg Atorvastatin Calcium (Lipitor -) 80 mg PO [facility] Last Admin: 08/14/16 21:15 Dose: 80 mg Clopidogrel Bisulfate (Plavix -) 75 mg PO DAILY [facility] Last Admin: 08/15/16 11:04 Dose: 75 mg Docusate Sodium (Colace -) 300 mg PO HS [facility] Last Admin: 08/14/16 21:17 Dose: 300 mg Ferrous Sulfate (Feosol -) 325 mg PO DAILY [facility] Last Admin: 08/15/16 11:04 Dose: 325 mg Folic Acid (Folic Acid -) 1 mg PO DAILY [facility] Last Admin: 08/15/16 11:04 Dose: 1 mg Furosemide (Lasix Injection -) 20 mg IVPUSH DAILY [facility] Last Admin: 08/15/16 11:03 Dose: 20 mg Ceftriaxone Sodium (Rocephin 1gm Ivpb (Pre-Docked)) 50 mls @ 100 mls/hr IVPB DAILY [facility] Last Admin: 08/15/16 11:05 Dose: 100 mls/hr Isosorbide Mononitrate (Imdur -) 30 mg PO BID [facility] Last Admin: 08/15/16 11:03 Dose: 30 mg Methylprednisolone Sodium Succinate (Solu-Medrol -) 20 mg IVPB Q12H [facility] Montelukast Sodium (Singulair -) 10 mg PO HS [facility] Last Admin: 08/14/16 21:15 Dose: 10 mg Nystatin (Nystatin Oral Suspension -) 500,000 units PO Q6HPO [facility] Last Admin: 08/15/16 06:21 Dose: 500,000 units Pantoprazole Sodium (Protonix -) 40 mg PO DAILY [facility] Last Admin: 08/15/16 11:03 Dose: 40 mg Polyethylene Glycol (Miralax (For Daily Use) -) 17 gm PO DAILY PRN PRN Reason: CONSTIPATION Last Admin: 08/15/16 11:04 Dose: 17 grams Ranolazine (Ranexa -) 500 mg PO BID [facility] Last Admin: 08/15/16 11:04 Dose: 500 mg Sodium Chloride ([place] Nasal [place] -) 2 spray NS Q2H PRN PRN Reason: NASAL CONGESTION Last Admin: 08/05/16 11:50 Dose: 2 sprays Verapamil HCl (Calan Sr -) 240 mg PO BID [facility] Last Admin: 08/15/16 11:04 Dose: 240 mg - Objective Vital Signs: Vital Signs Temperature 97.7 F 08/15/16 06:47 Pulse Rate 72 08/15/16 06:47 Respiratory Rate 20 08/15/16 06:47 Blood Pressure 154/75 08/15/16 06:47 O2 Sat by Pulse Oximetry (%) 99 08/14/16 21:00 Constitutional: Yes: No Distress Eyes: Yes: Conjunctiva Clear HENT: Yes: Atraumatic Neck: Yes: Supple Cardiovascular: Yes: Regular Rate and Rhythm Respiratory: Yes: Rales (less) Gastrointestinal: Yes: Soft. No: Distention, Tenderness Musculoskeletal: No: Joint Stiffness, Joint Swelling Extremities: No: Cold, Cool Edema: No Peripheral Pulses WNL: Yes Integumentary: Yes: Bruising (resolving). No: Rash, Venous Stasis Changes Neurological: Yes: WNL, Alert, Oriented ...Motor Strength: WNL Psychiatric: Yes: WNL, Alert, Oriented. No: Agitated, Suicidal Ideation Labs: CBC, BMP 08/15/16 06:30 08/15/16 06:30 INR, PTT INR 1.02 (0.82-1.09) 08/09/16 07:00 - ....Imaging Other: Report Reviewed Assessment/Plan The patient is a 61 year old female with a significant past medical history of HTN, HLD, COPD, ASHD s/p [place], PVD, HBP, who presents to the Emergency Department with complaints of increased SOB and worsening productive cough. COPD exacerbation; URI vs PNA, h/o lung nodules h/o carotid ds and HTN diastolic CHF h/o heavy smoking taper IV steroids, continue IV ATB cardio and pulm f/u heme f/u for anemia DVT falls PFX prognosis guarded d/w pt and staff check O2 sat/RA pre and post exercise
[2016-08-15] MEDS: DOCUSATE SODIUM 100 MG CAPSULE (FP) PO SCH (21:44)
[2016-08-15] MEDS: MONTELUKAST NA 10 MG TABLET PO SCH (21:45)
[2016-08-15] MEDS: ATORVASTATIN CA 80 MG TABLET (FP) PO SCH (21:45)
[2016-08-15] MEDS: ALPRAZolam 0.25 MG TABLET PO PRN (22:17)
--- NOTE | 2016-08-15 22:23 | PN ---
Progress Note, Physician Chief Complaint: Feels better Not in distress History of Present Illness: Patient was seen and examined. Awake and alert. Chart was reviewed Denies chest pain or palpitation - Current Medication List Current Medications: Active Medications Acetaminophen (Tylenol -) 650 mg PO Q6H PRN PRN Reason: FEVER OR PAIN Aclidinium [place] ([place]udorza -) 1 puff IH BID [facility] Last Admin: 08/15/16 21:46 Dose: 1 puff Al Hydroxide/Mg Hydroxide (Mylanta Oral Suspension -) 30 ml PO Q6H PRN PRN Reason: DYSPEPSIA Last Admin: 08/09/16 12:53 Dose: 30 ml Albuterol Sulfate (Ventolin 0.083% Nebulizer Soln -) 1 amp NEB Q6H PRN PRN Reason: SHORT OF BREATH/WHEEZING Last Admin: 08/15/16 11:20 Dose: 1 amp Alprazolam (Xanax -) 0.25 mg PO BID PRN PRN Reason: ANXIETY Last Admin: 08/14/16 13:36 Dose: 0.25 mg Atorvastatin Calcium (Lipitor -) 80 mg PO [facility] Last Admin: 08/15/16 21:45 Dose: 80 mg Clopidogrel Bisulfate (Plavix -) 75 mg PO DAILY [facility] Last Admin: 08/15/16 11:04 Dose: 75 mg Docusate Sodium (Colace -) 300 mg PO [facility] Last Admin: 08/15/16 21:44 Dose: 300 mg Ferrous Sulfate (Feosol -) 325 mg PO DAILY [facility] Last Admin: 08/15/16 11:04 Dose: 325 mg Folic Acid (Folic Acid -) 1 mg PO DAILY [facility] Last Admin: 08/15/16 11:04 Dose: 1 mg Furosemide (Lasix -) 20 mg PO DAILY [facility] Ceftriaxone Sodium (Rocephin 1gm Ivpb (Pre-Docked)) 50 mls @ 100 mls/hr IVPB DAILY [facility] Last Admin: 08/15/16 11:05 Dose: 100 mls/hr Isosorbide Mononitrate (Imdur -) 30 mg PO BID [facility] Last Admin: 08/15/16 21:45 Dose: 30 mg Methylprednisolone Sodium Succinate (Solu-Medrol -) 20 mg IVPB BID [facility] Last Admin: 08/15/16 21:45 Dose: 20 mg Montelukast Sodium (Singulair -) 10 mg PO HS [facility] Last Admin: 08/15/16 21:45 Dose: 10 mg Nystatin (Nystatin Oral Suspension -) 500,000 units PO Q6HPO [facility] Last Admin: 08/15/16 18:22 Dose: 500,000 units Pantoprazole Sodium (Protonix -) 40 mg PO DAILY [facility] Last Admin: 08/15/16 11:03 Dose: 40 mg Polyethylene Glycol (Miralax (For Daily Use) -) 17 gm PO DAILY PRN PRN Reason: CONSTIPATION Last Admin: 08/15/16 11:04 Dose: 17 grams Ranolazine (Ranexa -) 500 mg PO BID [facility] Last Admin: 08/15/16 21:45 Dose: 500 mg Sodium Chloride ([place] Nasal [place] -) 2 spray NS Q2H PRN PRN Reason: NASAL CONGESTION Last Admin: 08/05/16 11:50 Dose: 2 sprays Verapamil HCl (Calan Sr -) 240 mg PO BID [facility] Last Admin: 08/15/16 21:44 Dose: 240 mg - Objective Vital Signs: Vital Signs Temperature 98.7 F 08/15/16 17:21 Pulse Rate 91 H 08/15/16 17:21 Respiratory Rate 20 08/15/16 18:05 Blood Pressure 124/54 08/15/16 17:21 O2 Sat by Pulse Oximetry (%) 90 L 08/15/16 18:05 Neck: Yes: Supple Cardiovascular: Yes: Regular Rate and Rhythm, S1, S2 Respiratory: Yes: Diminished Gastrointestinal: Yes: Normal Bowel Sounds, Soft. 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 Chest pain syndrome with known history of CAD post OR angina pectoris 2. Dyspnea consistent with acute exacerbation of COPD, probable RML pneumonia and current tobacco abuse - improving 3. Chronic diastolic LV dysfunction with class I-II NYHA classification LV failure - improving 4. HTN 5. Hypercholesterolemia 6. History of carotid stenosis post CEA 7. Mesenteric ischemia post intervention 8. PAD post intervention PLAN: 1. Continue Verapamil SR 240 mg BID, Imdur 30 mg BID and Ranexa 500 mg BID 2. Continue Lipitor 80 mg QHS 3. Continue Lasix 20 mg QD 4. Continue Plavix. 5. Antibiotic course, bronchodilator, IV steroids with GI prophylaxis 6. Follow up with Dr. Luis Eduardo Manning, patient's premium auditor upon discharge and nuclear myocardial perfusion imaging can be done as outpatient by her premium auditor. Further plans are to follow Gerard Nichols MD
[2016-08-16] MEDS: NYSTATIN 500,000 UNITS/5 ML SUSPENSION PO SCH ×3 (00:02→12:14)
[2016-08-16 06:36] VITALS: TEMP 98.1
[2016-08-16] MEDS ORDERED: FUROSEMIDE 20 MG TABLET (FP) PO SCH (10:00)
[2016-08-16] MEDS: ALBUTEROL SO4 0.083% IH SOL 2.5 MG/3 ML VIAL.NEB. NEB PRN (10:10)
[2016-08-16] MEDS: FOLIC ACID 1 MG TABLET (FP) PO SCH (10:12)
[2016-08-16] MEDS: ISOSORBIDE MONONITRATE 30 MG TAB.SR.24H (FP) PO SCH (10:12)
[2016-08-16] MEDS: VERAPAMIL HCL 240 MG E.R. TABLET (FP) PO SCH (10:13)
[2016-08-16] MEDS: PANTOPRAZOLE 40 MG TABLET (FP) PO SCH (10:13)
[2016-08-16] MEDS: CLOPIDOGREL BISULFATE 75 MG TABLET (FP) PO SCH (10:13)
[2016-08-16] MEDS: RANOLAZINE E.R. 500 MG TABLET (FP) PO SCH (10:14)
[2016-08-16] MEDS: methylPREDNISolone NA SUCC 40 MG/1 ML VIAL IVPB SCH (10:15)
[2016-08-16] MEDS: CEFTRIAXONE 50 ML IVPB SCH (10:16)
[2016-08-16] MEDS: FERROUS SO4 325 MG TABLET (FP) PO SCH (10:16)
[2016-08-16] MEDS: ACLIDINIUM BROMIDE 400 MCG/INH AERO.POWD IH SCH (10:16)
[2016-08-16 10:46] VITALS: PULSE 88
[2016-08-16 13:32] VITALS: BP 107/56
--- NOTE | 2016-08-16 13:38 | DS ---
Physical Examination Vital Signs: Vital Signs Temperature 98.1 F 08/16/16 10:00 Pulse Rate 88 08/16/16 10:10 Respiratory Rate 18 08/16/16 10:00 Blood Pressure 107/56 08/16/16 10:00 O2 Sat by Pulse Oximetry (%) 98 08/16/16 10:10 Findings/Remarks: OOB slept OK, ate OK, no new c/o; feels better, wants to go home. Still has some yellow nasal DC; no CP/SOB; walked with respiratory therapist 10 minutes yesterday on RA O2 sat 90% HR 94. Does not qualify for home O2. Less BUI. d/w pt all DC instructions, f/u and meds; scripts done; pt's will pick her up from [facility] today; t time 45 min Constitutional: Yes: No Distress, Calm Eyes: Yes: Conjunctiva Clear HENT: Yes: Atraumatic Neck: Yes: Supple Cardiovascular: Yes: Regular Rate and Rhythm Respiratory: Yes: Rales (less). No: Wheezes Gastrointestinal: Yes: Soft. No: Distention, Tenderness Renal/: No: CVA Tenderness - Left, CVA Tenderness - Right Musculoskeletal: No: Joint Stiffness, Joint Swelling Extremities: No: Cold, Cool Edema: No Peripheral Pulses WNL: Yes Integumentary: No: Pressure Ulcer, Rash, Venous Stasis Changes Neurological: Yes: WNL, Alert, Oriented ...Motor Strength: WNL Psychiatric: Yes: WNL, Alert, Oriented. 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 anemia HUSEYIN seen by GI and heme; transfused as necessary; Hospital Course: improved with above; f/u with PCP, pulmonary, ENT and cardiology in 1-2 weeks; outpt ENT and GI f/u as advised; EGD, colonosocpy and stress test outpt RTER if worse or recurrent d/w pt; no smoking Condition: Guarded - Instructions Diet, Activity, Other Instructions: f/u PCP, cardiology and pulmonary in 1-2 weeks f/u ENT and GI in 2-4 weeks; needs outpt EGD and colonoscopy; stress test outpt with cardiology no smoking; falls PFX RTER in worse or recurrent c/o d/w pt, scripst done Referrals: Casi Cohn [Staff Physician] - Leslie Hoff MD [Staff Physician] - Carlos Ayala MD [Staff Physician] - Tayo Emerson MD [Staff Physician] - Carlos Austin MD [Staff Physician] - Disposition: VNS/HOME HEALTH CARE - Home Medications Comprehensive Discharge Medication List: Ambulatory Orders Albuterol 2.5/Ipratropium 0.5 [Duoneb -] 1 neb NEB Q4H PRN #0 vial 12/27/12 Atorvastatin Calcium [Lipitor] 80 mg PO HS #0 tablet 12/27/12 Clopidogrel Bisulfate [Plavix -] 75 mg PO DAILY #0 tablet 12/27/12 Folic Acid - 1 mg PO DAILY #0 tablet 12/27/12 Furosemide [Lasix -] 20 mg PO DAILY #0 tablet 12/27/12 Isosorbide Mononitrate [Imdur] 30 mg PO BID #0 tab.sr.24h 12/27/12 Montelukast Na [Singulair -] 10 mg PO HS #0 tablet 12/27/12 Ranitidine [Zantac -] 150 mg PO DAILY #0 tablet 12/27/12 Tiotropium [place] [Spiriva] 1 inh IH DAILY #0 inh 12/27/12 Fluticasone Prop 0.05% Nasal [Flonase -] 1 - 2 spray NS BID #1 spray.pump Acetaminophen [Tylenol .Regular Strength -] 650 mg PO Q6H PRN #0 tablet Mag Hydrox/Al Hydrox/Simeth [Mylanta Oral Suspension -] 30 ml PO Q6H PRN #0 cup 04/16/15 Sodium Chloride Nasal [place] [[place] Nasal [place] -] 2 spray NS Q2H PRN #0 bottle 04/16/15 Nystatin Oral Suspension - [Nystatin Oral Susp 502379 Units/5 ML -] 500,000 units PO Q6HPO 14 Days 04/17/15 Acetaminophen [Tylenol .Regular Strength -] 650 mg PO Q6H PRN #0 tablet Amox-Tr/K Cl [Augmentin - 875Mg Tablet] 1 tab PO BID #14 tablet 08/16/16 Docusate Sodium [Colace -] 300 mg PO HS capsule 08/16/16 Ferrous Sulfate [Feosol] 325 mg PO DAILY ud 08/16/16 Fluconazole 150 mg PO ONCE #1 tablet 08/16/16 Lactobacillus Acidophilus [Bacid -] 1 each PO DAILY #30 capsule 08/16/16 Nitroglycerin 0.4 mg SL AM PRN #90 tab.subl 08/16/16 Nystatin Oral Suspension - [Nystatin Oral Susp 903246 Units/5 ML -] 500,000 units PO Q6HPO 7 Days 08/16/16 Pantoprazole Sodium [Protonix -] 40 mg PO DAILY #90 tablet.ec 08/16/16 Polyethylene Glycol 3350 [Miralax 119 gm Btl -] 17 gm PO DAILY PRN #0 bottle Prednisone 10 mg PO AM #20 tablet 08/16/16 Ranolazine [Ranexa -] 500 mg PO BID #180 tab 08/16/16 Verapamil HCl ER [Calan Sr -] 240 mg PO BID #180 tablet.er 08/16/16
== END 2016-08-16 14:52 | disposition home health service (06) | DRG 190 ==
LOC: JER 17:03 → JERBED 19:55 → UNDOADMIN 19:55 → J8W 23:43 → JERBED 23:43 → J8W 23:52
PROVIDERS: ADMIT Internal Medicine; ATTEND Internal Medicine
PROC: 30233N1 Transfusion of Nonautologous Red Blood Cells into Peripheral Vein, Percutaneous Approach (ICD-10-PCS; principal; 2016-08-10)
PROC: 0CJS8ZZ Inspection of Larynx, Via Natural or Artificial Opening Endoscopic (ICD-10-PCS; 2016-08-13)
DX: J44.0 Chronic obstructive pulmonary disease with (acute) lower respiratory infection (principal); J18.9 Pneumonia, unspecified organism; I50.30 Unspecified diastolic (congestive) heart failure; J98.11 Atelectasis; K92.2 Gastrointestinal hemorrhage, unspecified; J44.1 Chronic obstructive pulmonary disease with (acute) exacerbation; D50.9 Iron deficiency anemia, unspecified; Z98.61 Coronary angioplasty status; I73.9 Peripheral vascular disease, unspecified; F41.9 Anxiety disorder, unspecified; F32.9 Major depressive disorder, single episode, unspecified; I25.119 Atherosclerotic heart disease of native coronary artery with unspecified angina pectoris; I11.0 Hypertensive heart disease with heart failure; F17.210 Nicotine dependence, cigarettes, uncomplicated; R91.8 Other nonspecific abnormal finding of lung field; I25.2 Old myocardial infarction; R58 Hemorrhage, not elsewhere classified; K57.90 Diverticulosis of intestine, part unspecified, without perforation or abscess without bleeding; K22.70 Barrett's esophagus without dysplasia; J45.909 Unspecified asthma, uncomplicated; R13.13 Dysphagia, pharyngeal phase; J38.7 Other diseases of larynx; R60.0 Localized edema; R09.02 Hypoxemia; R07.89 Other chest pain
CPT/HCPCS: 36415; 36430; 71010-TC; 71250-TC; 74176-TC; 80048; 80053; 80061; 82272; 82550; 82607; 82728; 82747; 83010; 83540; 83550; 83615; 83721; 83735; 83880; 84439; 84443; 84481; 85014; 85025; 85044; 85610; 85651; 85730; 86140; 86850; 86880; 86900; 86901; 86922; 87040; 87254; 87804; 93005; 93010; 93306-TC; 93880-TC; 94640; 94761; 99284-25; G0008; J1644; P9058; Q2037

== ENCOUNTER 2018-02-14 17:47 | Inpatient (IN) | payer OTHER ==
--- NOTE | 2018-02-14 18:01 | PDOC ---
Rapid Medical Evaluation Time Seen by Provider: 02/14/18 17:59 Medical Evaluation: Allergies Allergy/AdvReac Type Severity Reaction Status Date / Time No Known Drug Allergies Allergy Verified 07/31/16 17:03 02/14/18 17:59 I have performed a brief in-person evaluation of this patient. The patient presents with a chief complaint of: shortness of breath x 1 week worse today. States treatments not helping at home. Also reports chest tightness. Has history of COPD Pertinent physical findings: NAD labored breathing with diminished at bases and rhonci I have ordered the following: Ekg, chest xray and labs The patient will proceed to the ED for further evaluation.
[2018-02-14 18:37] LABS: BASO % 1.1 % (0-2.0); EOS % 4.8 % (0-4.5); HEMATOCRIT 42.9 % (32.4-45.2); HEMOGLOBIN 14.2 GM/dL (10.7-15.3); LYMPH % 20.9 % (8-40); MCH 29.2 pg (25.7-33.7); MCHC 33.1 g/dl (32.0-36.0); MEAN CELL VOLUME 88.1 fl (80-96); MEAN PLT VOLUME 6.9 fl (7.5-11.1); MONO % 6.2 % (3.8-10.2); PLATELET COUNT 313 K/MM3 (134-434); RBC 4.87 M/mm3 (3.60-5.2); RDW 14.6 % (11.6-15.6); WHITE BLOOD COUNT 7.3 K/mm3 (4.0-10.0)
[2018-02-14] MEDS ORDERED: ALBUTEROL SO4 2.5/IPRATROPIUM 0.5 INH SOL 3 ML VIAL.NEB. NEB ONE ×3 (18:43→20:36)
[2018-02-14 18:48] LABS: INR 0.98 (0.82-1.09); PROTHROMBIN TIME (PATIENT) 11.1 SEC (9.7-13.0)
--- NOTE | 2018-02-14 18:49 | PDOC ---
History of Present Illness - General Chief Complaint: Shortness of Breath Stated Complaint: SHORTNESS OF BREATH Time Seen by Provider: 02/14/18 17:59 History Source: Patient - History of Present Illness Initial Comments: 02/14/18 18:45 Patient is a 62yo female with PMH of [place] s/p angioplasty, carotid endarterectomy , COPD, asthma brought in to ED by for SOB. Pt says she constantly feels short of breath but she starting feeling worse this past week and it was even worse today. She says today she started feeling short of breath when she was inhaling. Pt has also been coughing for the past week productive of clear- yellow phlegm. Pt took 2 nebulizer treatments at home, but it didn't help. She admits to chills but denies fever, congestion, palpitations, abdominal pain, dysuria, N/V/D. PCP: Dr. Cohn Coremaker: Dr. Manning Paid Search Marketing Strategist: PMH: see HPI PSH: angioplasty 30 years ago, carotid endarterectomy, cholecystectomy Allergies: nkda meds: see med rec Social: denies tobacco, alcohol, illicit drug use Past History - Past Medical History Allergies/Adverse Reactions: Allergies Allergy/AdvReac Type Severity Reaction Status Date / Time No Known Drug Allergies Allergy Verified 02/14/18 17:59 Home Medications: Ambulatory Orders Albuterol 2.5/Ipratropium 0.5 [Duoneb -] 1 neb NEB Q4H PRN #0 vial 12/27/12 Atorvastatin [place] [Lipitor] 80 mg PO HS #0 tablet 12/27/12 Clopidogrel Bisulfate [Plavix -] 75 mg PO DAILY #0 tablet 12/27/12 Folic Acid - 1 mg PO DAILY #0 tablet 12/27/12 Furosemide [Lasix -] 20 mg PO DAILY #0 tablet 12/27/12 Isosorbide Mononitrate [Imdur] 30 mg PO BID #0 tab.sr.24h 12/27/12 Montelukast Na [Singulair -] 10 mg PO HS #0 tablet 12/27/12 Ranitidine [Zantac -] 150 mg PO DAILY #0 tablet 12/27/12 Tiotropium [place] [Spiriva] 1 inh IH DAILY #0 inh 12/27/12 Fluticasone Prop 0.05% Nasal [Flonase -] 1 - 2 spray NS BID #1 spray.pump Mag Hydrox/Al Hydrox/Simeth [Mylanta Oral Suspension -] 30 ml PO Q6H PRN #0 cup 04/16/15 Acetaminophen [Tylenol .Regular Strength -] 650 mg PO Q6H PRN #0 tablet Docusate Sodium [Colace -] 300 mg PO HS capsule 08/16/16 Nitroglycerin 0.4 mg SL AM PRN #90 tab.subl 08/16/16 Pantoprazole Sodium [Protonix -] 40 mg PO DAILY #90 tablet.ec 08/16/16 Ranolazine [Ranexa -] 500 mg PO BID #180 tab 08/16/16 Verapamil HCl ER [Calan Sr -] 240 mg PO BID #180 tablet.er 08/16/16 Potassium Chloride [K-Dur -] 10 meq PO BID 02/15/18 Anemia: No Asthma: Yes Cancer: No Cardiac Disorders: Yes (NM X 2) CVA: No COPD: Yes CHF: No Dementia: No Diabetes: No GI Disorders: Yes (HERNIA) Disorders: No HTN: Yes Hypercholesterolemia: Yes Liver Disease: No Seizures: No Thyroid Disease: No - Surgical History Abdominal Surgery: Yes Appendectomy: No Cardiac Surgery: Yes (Angioplasty, Carotid Artery) Cholecystectomy: Yes Lung Surgery: No Neurologic Surgery: No Orthopedic Surgery: No - Immunization History Immunization Up to Date: Yes (no flu or pna) - Suicide/Smoking/Psychosocial Hx Smoking Status: Yes Smoking History: Former smoker Have you smoked in the past 12 months: Yes Number of Cigarettes Smoked Daily: 10 If you are a former smoker, when did you quit?: 1YR Information on smoking cessation initiated: No 'Breaking Loose' booklet given: 12/20/12 Hx Alcohol Use: No Drug/Substance Use Hx: No Substance Use Type: None Hx Substance Use Treatment: No *Physical Exam - Vital Signs Last Vital Signs Temp Pulse Resp BP Pulse Ox 98.6 F 94 H 16 129/58 93 L 02/14/18 17:59 02/14/18 17:59 02/14/18 17:59 02/14/18 17:59 02/14/18 17:59 ED Treatment Course - LABORATORY CBC & Chemistry Diagram: 02/26/18 06:05 02/26/18 06:05 - ADDITIONAL ORDERS Additional order review: 02/14/18 18:29 RBC 4.87 MCV 88.1 MCHC 33.1 RDW 14.6 D MPV 6.9 L Neutrophils % 67.0 D Lymphocytes % 20.9 D Monocytes % 6.2 D Eosinophils % 4.8 H D Basophils % 1.1 D Medical Decision Making - Medical Decision Making 02/28/18 15:09 Patient is a 62yo female with PMH of [place] s/p angioplasty, carotid endarterectomy , COPD, asthma brought in to ED by for SOB DDX: COPD exacerbation, Asthma exacerbation, PNA, PE, PTX, ACS CXR and labs drawn. CXR showed mild COPD exacerbation. No concern for infectious process based on physical exam and labs. NO concern for PTX based on physical exam. Pt was admitted under Dr. Cohn. *DC/Admit/Observation/Transfer Diagnosis at time of Disposition: COPD exacerbation - Discharge Dispostion Condition at time of disposition: Stable Decision to Admit order: Yes - Referrals - Patient Instructions - Post Discharge Activity
[2018-02-14 18:51] LABS: ACTIVATED PTT 40.2 SECONDS (25.2-36.5)
[2018-02-14] MEDS ORDERED: methylPREDNISolone NA SUCC 125 MG/2 ML VIAL IVPB ONE (18:55)
[2018-02-14 18:58] LABS: ALBUMIN 3.9 g/dl (3.4-5.0); ANION GAP 10 (8-16); BILIRUBIN,TOTAL 0.4 mg/dL (0.2-1.0); BLOOD UREA NITROGEN 6 mg/dL (7-18); CALCIUM 8.2 mg/dL (8.5-10.1); CHLORIDE 103 mmol/L (98-107); CO2 28 mmol/L (21-32); CREATININE 0.6 mg/dL (0.55-1.02); GLUCOSE,RANDOM 92 mg/dL (74-106); POTASSIUM 3.2 mmol/L (3.5-5.1); SGOT/AST 12 U/L (15-37); SGPT/ALT 19 U/L (12-78); SODIUM 141 mmol/L (136-145)
[2018-02-14 19:00] LABS: ALK PHOS 128 U/L (45-117)
[2018-02-14] MEDS ORDERED: methylPREDNISolone NA SUCC 40 MG/1 ML VIAL ONE (19:22)
--- NOTE | 2018-02-14 19:59 | PDOC ---
Attending Attestation - Resident Resident Name: Alberta Tony - ED Attending Attestation I have performed the following: I have examined & evaluated the patient, The case was reviewed & discussed with the resident, I agree w/resident's findings & plan, Exceptions are as noted - HPI HPI: 02/14/18 20:07 sob for several days. - Physicial Exam PE: 02/14/18 20:08 *Physical Exam General Appearance: Yes: Appropriately Dressed, mild distress No: Intoxicated HEENT: positive: EOMI, CAROLINE, Normal ENT Inspection, Normal Voice, TMs Normal, Pharynx Normal. negative: Pale Conjunctivae, Photophobia, Scleral Icterus (R), Scleral Icterus (L) Neck: positive: Trachea midline, Normal Thyroid, Supple. negative: Tender, Rigid, Carotid bruit, Stridor, Lymphadenopathy (R), Lymphadenopathy (L), Thyromegaly Respiratory/Chest: positive: decreased BS, + bilateral rhochi and wheezing, + conversational dyspnea Cardiovascular: positive: Regular Rhythm, Regular Rate, S1, S2. negative: Edema , JVD, Murmur, Bradycardia, Tachycardia Vascular Pulses: Dorsalis-Pedis (R): 2+, Doralis-Pedis (L): 2+ Gastrointestinal/Abdominal: positive: Normal Bowel Sounds, Flat, Soft. negative : Tender, Organomegaly, Pulsatile Mass, Increased Bowel Sounds, Decreased BS, Distended, Guarding, Rebound, Hernia, Hepatomegaly, Spleenomegaly Lymphatic: negative: Adenopathy, Tenderness Musculoskeletal: positive: Normal Inspection. negative: CVA Tenderness, Decreased Range of Motion Extremity: positive: Normal Capillary Refill, Normal Inspection, Normal Range of Motion, Pelvis Stable. negative: Tender, Pedal Edema, Swelling, Erythema Integumentary: positive: Normal Color, Dry, Warm. negative: Cyanotic, Erythema , Jaundice, Rash Neurologic: positive: web operations administrator II-XII NML intact, Fully Oriented, Alert, Normal Mood/ Affect, Motor Strength 5/5. negative: EOM Palsy, Facial Droop, Sensory Deficit - Medical Decision Making 02/14/18 20:09 Pt to be admitted for further evaluation and care <Gagan He - Last Filed: 02/14/18 20:09> - HPI HPI: 02/14/18 20:15 The patient is a 62 year old female with a significant PMH of hypertension, hyperlipidemia, COPD, ASHD s/p [place] (30 years ago), PVD, and asthma who presents to the emergency department with shortness of breath for about 1 week. The patient reports that she has been experiencing worsened episode of shortness of breath today with inspiration. The patient reports that she took 2 nebulizer treatments today with no apparent relief. The patient also reports some associated productive cough secondary to her shortness or breath. The patient states that her phlegm has gone from clear color to yellow in color. The patient denies any other symptoms. She denies chest pain, headache and dizziness. She denies fever, chills, nausea, vomit, diarrhea, constipation or urinary symptoms. The patient denies any other complaints PCP: Dr. Casi Cohn Documentation prepared by Shalini Guerrero, acting as director biomedical engineering for Gagan He MD. <Shalini Guerrero - Last Filed: 02/14/18 20:16>
[2018-02-14] MEDS ORDERED: MAGNESIUM SULF 50% (8.12 MEQ/2 ML-1 GM VIAL) IVPB ONE (20:02)
[2018-02-14] MEDS ORDERED: ALBUTEROL SO4 2.5/IPRATROPIUM 0.5 INH SOL 3 ML VIAL.NEB. NEB STA (20:04)
[2018-02-14] MEDS ORDERED: MAGNESIUM 1GM/D5W - 2 GM/200 ML IVPB IVPB ONE (20:36)
[2018-02-14] MEDS ORDERED: NITROGLYCERIN SUBLINGUAL 1/150 0.4 MG TAB SL PRN (20:44)
[2018-02-14] MEDS ORDERED: ALBUTEROL SO4 2.5/IPRATROPIUM 0.5 INH SOL 3 ML VIAL.NEB. NEB PRN (20:44)
[2018-02-14] MEDS ORDERED: DOCUSATE SODIUM 100 MG CAPSULE (FP) PO ONE (21:24)
[2018-02-14] MEDS ORDERED: ISOSORBIDE MONONITRATE 60 MG TAB.SR.24H (FP) PO ONE (21:24)
[2018-02-14] MEDS ORDERED: ATORVASTATIN CA 80 MG TABLET (FP) ONE (21:24)
[2018-02-14] MEDS ORDERED: MONTELUKAST NA 10 MG TABLET ONE (21:25)
[2018-02-14] MEDS: methylPREDNISolone NA SUCC 125 MG/2 ML VIAL IVPB SCH (21:31)
[2018-02-14] MEDS: ISOSORBIDE MONONITRATE 30 MG TAB.SR.24H (FP) PO SCH (21:32)
[2018-02-14] MEDS: ATORVASTATIN CA 80 MG TABLET (FP) PO SCH (21:32)
[2018-02-14] MEDS: MONTELUKAST NA 10 MG TABLET PO SCH (21:32)
[2018-02-14] MEDS: DOCUSATE SODIUM 100 MG CAPSULE (FP) PO SCH (21:32)
[2018-02-14] MEDS: POTASSIUM CHLORIDE TABS 10 MEQ TABLET.ER (FP) PO SCH (21:35)
[2018-02-14] MEDS ORDERED: POTASSIUM CHLORIDE TABS 10 MEQ TABLET.ER (FP) ONE (21:37)
[2018-02-14] MEDS: RANOLAZINE E.R. 500 MG TABLET (FP) PO SCH (22:38)
[2018-02-14] MEDS: INSULIN SLIDING SCALE (NOVOLOG) 1 VIAL SQ SCH (22:38)
[2018-02-14] MEDS: VERAPAMIL HCL 240 MG E.R. TABLET (FP) PO SCH (23:29)
[2018-02-14] MEDS: FLUTICASONE PROP 0.05% 16 GM NASAL SPRAY NS SCH (23:39)
[2018-02-15] MEDS: methylPREDNISolone NA SUCC 125 MG/2 ML VIAL IVPB SCH ×3 (05:00→20:46)
[2018-02-15] MEDS: INSULIN SLIDING SCALE (NOVOLOG) 1 VIAL SQ SCH ×2 (06:17→12:24)
[2018-02-15] MEDS: ALBUTEROL SO4 0.083% IH SOL 2.5 MG/3 ML VIAL.NEB. NEB PRN ×2 (06:33→20:36)
[2018-02-15 06:59] LABS: BASO % 0.2 % (0-2.0); EOS % 0.1 % (0-4.5); HEMOGLOBIN 13.1 GM/dL (10.7-15.3); LYMPH % 7.4 % (8-40); MCH 29.6 pg (25.7-33.7); MCHC 33.5 g/dl (32.0-36.0); MEAN CELL VOLUME 88.3 fl (80-96); MEAN PLT VOLUME 6.9 fl (7.5-11.1); MONO % 0.7 % (3.8-10.2); NEUT % 91.6 % (42.8-82.8); PLATELET COUNT 296 K/MM3 (134-434); RBC 4.42 M/mm3 (3.60-5.2); RDW 14.7 % (11.6-15.6); WHITE BLOOD COUNT 7.5 K/mm3 (4.0-10.0)
[2018-02-15 07:13] LABS: CHLORIDE 99 mmol/L (98-107); SODIUM 138 mmol/L (136-145)
[2018-02-15 07:38] LABS: ALBUMIN 3.5 g/dl (3.4-5.0); ALK PHOS 125 U/L (45-117); ANION GAP 11 (8-16); BILIRUBIN,TOTAL 0.5 mg/dL (0.2-1.0); BLOOD UREA NITROGEN 8 mg/dL (7-18); CALCIUM 8.9 mg/dL (8.5-10.1); CO2 28 mmol/L (21-32); CREATININE 0.8 mg/dL (0.55-1.02); GLUCOSE,RANDOM 152 mg/dL (74-106); SGOT/AST 14 U/L (15-37); SGPT/ALT 20 U/L (12-78); TOT PROT 6.7 g/dl (6.4-8.2)
[2018-02-15] MEDS ORDERED: PT OWN MED DRAWER 7, Y5N ONE ×5 (08:29→21:05)
[2018-02-15 08:53] LABS: PLATELET ESTIMATE ADEQUATE
[2018-02-15] MEDS: ISOSORBIDE MONONITRATE 30 MG TAB.SR.24H (FP) PO SCH ×2 (08:59→21:00)
[2018-02-15] MEDS: CLOPIDOGREL BISULFATE 75 MG TABLET (FP) PO SCH (08:59)
[2018-02-15] MEDS: RANITIDINE HCL 150 MG TABLET (FP) PO SCH (08:59)
[2018-02-15] MEDS: POTASSIUM CHLORIDE TABS 10 MEQ TABLET.ER (FP) PO SCH (08:59)
[2018-02-15] MEDS: FOLIC ACID 1 MG TABLET (FP) PO SCH (09:00)
[2018-02-15] MEDS: FLUTICASONE PROP 0.05% 16 GM NASAL SPRAY NS SCH ×2 (09:00→21:00)
[2018-02-15] MEDS: FUROSEMIDE 20 MG TABLET (FP) PO SCH (09:00)
[2018-02-15] MEDS: TIOTROPIUM BROMIDE 18 MCG CAPSULES IH SCH (09:01)
[2018-02-15] MEDS: VERAPAMIL HCL 240 MG E.R. TABLET (FP) PO SCH ×2 (09:01→21:11)
[2018-02-15] MEDS: PANTOPRAZOLE 40 MG TABLET (FP) PO SCH (09:02)
[2018-02-15] MEDS: RANOLAZINE E.R. 500 MG TABLET (FP) PO SCH ×2 (09:03→21:01)
--- NOTE | 2018-02-15 10:52 | HP ---
Admitting History and Physical - Primary Care Physician PCP: Casi Cohn - Admission Chief Complaint: cough and SOB History of Present Illness: Patient is a 62yo female with PMH of [place] s/p angioplasty, carotid endarterectomy , COPD, asthma brought in to ED by for SOB. Pt says she constantly feels short of breath but she starting feeling worse this past week and it was even worse today. She says today she started feeling short of breath when she was inhaling. Pt has also been coughing for the past week productive of clear- yellow phlegm. Pt took 2 nebulizer treatments at home, but it didn't help. She admits to chills but denies fever, congestion, palpitations, abdominal pain, dysuria, N/V/D. Pt has AC home and said she's been using it everyday. History Source: Patient, Family Member, Medical Record Limitations to Obtaining History: No Limitations - Past Medical History Cardiovascular: Yes: CAD, HTN, [place] (2011 transferred to [facility], no stents, told of ? Prinzmetal angina? ), Other (left ventricular end diastolic dysfunction, peripheral and carotid vascular disease ) Pulmonary: Yes: Asthma, COPD Gastrointestinal: Yes: Diverticulosis, Gastritis, GERD (with short segment Barretts), Hiatal Hernia, Other (Mesenteric ischemia treated with SMA bypass 2011. Incisional hernia.) Renal/: Yes: Renal Failure (required dialysis for several weeks following contrast induced renal fauilure after [place] in 2011) Heme/Onc: Yes: Anemia Psych: Yes: Anxiety, Depression Endocrine: Yes: Other (Euthyroid goiter) - Past Surgical History Past Surgical History: Yes: Carotid Endarterectomy, Cholecystectomy, Colonoscopy , Upper Endoscopy - Smoking History Smoking history: Former smoker Have you smoked in the past 12 months: Yes Aproximately how many cigarettes per day: 10 If you are a former smoker, when did you quit?: 1YR - Alcohol/Substance Use Hx Alcohol Use: No History of Substance Use: reports: None - Social History Usual Living Arrangement: Yes: With Spouse ADL: Independent 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 History of Recent Travel: No Home Medications - Allergies Allergies/Adverse Reactions: Allergies Allergy/AdvReac Type Severity Reaction Status Date / Time No Known Drug Allergies Allergy Verified 02/14/18 17:59 - Home Medications Home Medications: Ambulatory Orders Albuterol 2.5/Ipratropium 0.5 [Duoneb -] 1 neb NEB Q4H PRN #0 vial 12/27/12 Atorvastatin Calcium [Lipitor] 80 mg PO HS #0 tablet 12/27/12 Clopidogrel Bisulfate [Plavix -] 75 mg PO DAILY #0 tablet 12/27/12 Folic Acid - 1 mg PO DAILY #0 tablet 12/27/12 Furosemide [Lasix -] 20 mg PO DAILY #0 tablet 12/27/12 Isosorbide Mononitrate [Imdur] 30 mg PO BID #0 tab.sr.24h 12/27/12 Montelukast Na [Singulair -] 10 mg PO HS #0 tablet 12/27/12 Ranitidine [Zantac -] 150 mg PO DAILY #0 tablet 12/27/12 Tiotropium [place] [Spiriva] 1 inh IH DAILY #0 inh 12/27/12 Fluticasone Prop 0.05% Nasal [Flonase -] 1 - 2 spray NS BID #1 spray.pump Mag Hydrox/Al Hydrox/Simeth [Mylanta Oral Suspension -] 30 ml PO Q6H PRN #0 cup 04/16/15 Acetaminophen [Tylenol .Regular Strength -] 650 mg PO Q6H PRN #0 tablet Docusate Sodium [Colace -] 300 mg PO HS capsule 08/16/16 Nitroglycerin 0.4 mg SL AM PRN #90 tab.subl 08/16/16 Pantoprazole Sodium [Protonix -] 40 mg PO DAILY #90 tablet.ec 08/16/16 Ranolazine [Ranexa -] 500 mg PO BID #180 tab 08/16/16 Verapamil HCl ER [Calan Sr -] 240 mg PO BID #180 tablet.er 08/16/16 Potassium Chloride [K-Dur -] 10 meq PO BID 02/15/18 Family Disease History - Family Disease History Family Disease History: Heart Disease: Father ( 73 of melanoma), Mother ( 73 of COPD), Brother ( of throat cancer), [place]: Father, Brother, Respiratory: Mother Review of Systems - Review of Systems Constitutional: denies: Chills, Fever, Lethargy Eyes: denies: Blind Spots, Blurred Vision, Double Vision, Eye Pain HENT: denies: Hearing Loss Neck: denies: Stiffness, Tenderness Cardiovascular: reports: Shortness of Breath. denies: Chest Pain Respiratory: reports: Cough, Exercise Intolerance, SOB, SOB on Exertion, Wheezing, Other. denies: Hemoptysis Gastrointestinal: denies: Abdominal Pain, Bloating, Constipation, Diarrhea, Vomiting Genitourinary: denies: Dysuria, Flank Pain Musculoskeletal: denies: Back Pain, Joint Pain Neurological: denies: Change in LOC, Change in Speech, Confusion Endocrine: denies: Unexplained Weight Loss Hematology/Lymphatic: denies: Easily Bruised, Excessive Bleeding Psychiatric: denies: Altered Sleep Pattern, Anxiety, Depression, Suicidal Physical Examination Vital Signs: Vital Signs Temperature 97.8 F 02/15/18 06:02 Pulse Rate 90 02/15/18 09:18 Respiratory Rate 22 02/15/18 09:18 Blood Pressure 148/90 02/15/18 09:18 O2 Sat by Pulse Oximetry (%) 97 02/15/18 00:47 Constitutional: Yes: No Distress, Calm Eyes: Yes: Conjunctiva Clear HENT: Yes: Atraumatic Neck: Yes: Supple, Other (s/p old R Carotid endarterectomy). No: Thyromegaly Cardiovascular: Yes: Regular Rate and Rhythm Respiratory: Yes: Rales, Wheezes Gastrointestinal: Yes: Soft, Other (RUQ hernia (after cholecystectomy) L flank hernia (s/p surgery)). No: Distention, Tenderness Renal/: No: CVA Tenderness - Left, CVA Tenderness - Right Musculoskeletal: No: Back Pain, Joint Stiffness, Joint Swelling Extremities: No: Cold, Cool, Cyanosis Edema: No Integumentary: No: Rash, Venous Stasis Changes Neurological: Yes: WNL, Alert, Oriented ...Motor Strength: WNL Psychiatric: Yes: WNL, Alert, Oriented. No: Agitated, Suicidal Ideation Labs: CBC, BMP 02/15/18 05:55 02/15/18 05:55 Imaging - Results Chest X-ray: Report Reviewed Other: Report Reviewed Assessment/Plan Patient is a 62yo female with PMH of [place] s/p angioplasty, carotid endarterectomy , COPD admitted with acute URI/ pneumonia and COPD exacerbation admit to INPT all tests and consults reviewed and d/w pt IV steroids, nebs, IV antibiotics check chest CT cardiology and pulmonary evals f/u labs gastric PFX while on steroids BGM check while on steroids pt asked for prn xanax for insomnia and anxiety; d/w pt risks and possible SE with xanax she is aware; falls PFX will need hernias x 2 repair when stable cardiac and pulmonary resendez (not an emergency at this point) d/w pt importance to be compliant with recommendations t time 80 min
--- NOTE | 2018-02-15 11:59 | CON.CARD ---
Consult Consult Specialty:: Cardiology Referred by:: Dr. Cohn Reason for Consultation:: Cardiac evaluation - History of Present Illness Chief Complaint: Shortness of breath History of Present Illness: Patient is a 62 year old female with underlying history of CAD, [place], diastolic LV dysfunction with chronic class I NYHA classification heart failure, carotid artery disease s/p right CEA, mesenteric ischemia, post bypass surgery, peripheral vascular disease, HTN, hypercholesterolemia, advanced COPD who presents with SOB. Patient also complained of productive cough with yellow sputum. She denies fever or chills. She denies palpitations but complains of chest tightness with cough. She denies nausea, vomiting, diarrhea or abdominal pain. She denies fever or chills. She denies headache or lightheadedness. PCP: Dr. Cohn Administrator Health Care Facility: Dr. Manning - History Source History Provided By: Patient, Medical Record Limitations to Obtaining History: No Limitations - Past Medical History Cardio/Vascular: Yes: CAD, HTN, [place] (2011 transferred to [facility], no stents, told of ? Prinzmetal angina? ), Other (left ventricular end diastolic dysfunction, peripheral and carotid vascular disease ) Pulmonary: Yes: Asthma, COPD Gastrointestinal: Yes: Diverticulosis, Gastritis, GERD (with short segment Barretts), Hiatal Hernia, Other (Mesenteric ischemia treated with SMA bypass 2011. Incisional hernia.) Renal/: Yes: Renal Failure (required dialysis for several weeks following contrast induced renal fauilure after [place] in 2011) Psych: Yes: Anxiety, Depression Endocrine: Yes: Other (Euthyroid goiter) - Past Surgical History Past Surgical History: Yes: Carotid Endarterectomy, Cholecystectomy, Colonoscopy , Upper Endoscopy - Alcohol/Substance Use Hx Alcohol Use: No History of Substance Use: reports: None - Smoking History Smoking history: Former smoker Have you smoked in the past 12 months: Yes Aproximately how many cigarettes per day: 10 If you are a former smoker, when did you quit?: 1YR - Social History Usual Living Arrangement: With Spouse ADL: Independent 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 History of Recent Travel: No Home Medications - Allergies Allergies/Adverse Reactions: Allergies Allergy/AdvReac Type Severity Reaction Status Date / Time No Known Drug Allergies Allergy Verified 02/14/18 17:59 - Home Medications Home Medications: Ambulatory Orders Albuterol 2.5/Ipratropium 0.5 [Duoneb -] 1 neb NEB Q4H PRN #0 vial 12/27/12 Atorvastatin Calcium [Lipitor] 80 mg PO HS #0 tablet 12/27/12 Clopidogrel Bisulfate [Plavix -] 75 mg PO DAILY #0 tablet 12/27/12 Folic Acid - 1 mg PO DAILY #0 tablet 12/27/12 Furosemide [Lasix -] 20 mg PO DAILY #0 tablet 12/27/12 Isosorbide Mononitrate [Imdur] 30 mg PO BID #0 tab.sr.24h 12/27/12 Montelukast Na [Singulair -] 10 mg PO HS #0 tablet 12/27/12 Ranitidine [Zantac -] 150 mg PO DAILY #0 tablet 12/27/12 Tiotropium Sunol [Spiriva] 1 inh IH DAILY #0 inh 12/27/12 Fluticasone Prop 0.05% Nasal [Flonase -] 1 - 2 spray NS BID #1 spray.pump Mag Hydrox/Al Hydrox/Simeth [Mylanta Oral Suspension -] 30 ml PO Q6H PRN #0 cup 04/16/15 Acetaminophen [Tylenol .Regular Strength -] 650 mg PO Q6H PRN #0 tablet Docusate Sodium [Colace -] 300 mg PO HS capsule 08/16/16 Nitroglycerin 0.4 mg SL AM PRN #90 tab.subl 08/16/16 Pantoprazole Sodium [Protonix -] 40 mg PO DAILY #90 tablet.ec 08/16/16 Ranolazine [Ranexa -] 500 mg PO BID #180 tab 08/16/16 Verapamil HCl ER [Calan Sr -] 240 mg PO BID #180 tablet.er 08/16/16 Potassium Chloride [K-Dur -] 10 meq PO BID 02/15/18 Family Disease History - Family Disease History Family Disease History: Heart Disease: Father ( 73 of melanoma), Mother ( 73 of COPD), Brother ( of throat cancer), [place]: Father, Brother, Respiratory: Mother Review of Systems - Review of Systems Constitutional: denies: Chills, Fever Cardiovascular: reports: Chest Pain, Shortness of Breath. denies: Palpitations Respiratory: reports: Cough, SOB, SOB on Exertion, Wheezing. denies: Hemoptysis , Orthopnea, PND Gastrointestinal: denies: Abdominal Pain, Constipation, Diarrhea, Melena, Nausea , Rectal Bleeding, Vomiting Musculoskeletal: denies: Back Pain, Joint Pain Neurological: denies: Dizziness, Headache, Seizure, Syncope Vital Signs: Vital Signs Temperature 97.8 F 02/15/18 06:02 Pulse Rate 90 02/15/18 09:18 Respiratory Rate 22 02/15/18 09:18 Blood Pressure 148/90 02/15/18 09:18 O2 Sat by Pulse Oximetry (%) 97 02/15/18 00:47 Eyes: Yes: PERRL HENT: Yes: Atraumatic Neck: Yes: Supple Respiratory: Yes: Diminished Gastrointestinal: Yes: Normal Bowel Sounds, Soft. No: Tenderness Cardiovascular: Yes: Regular Rate and Rhythm JVD: No Carotid Bruit: No PMI: Non-Displaced Heart Sounds: Yes: S1, S2. No: Gallop Murmur: Yes: Systolic Murmur, Grade 1 Edema: Yes Edema: LLE: Trace, RLE: Trace - Other Data Labs, Other Data: CBC, BMP 02/15/18 05:55 02/15/18 05:55 INR, PTT INR 0.98 (0.82-1.09) 02/14/18 18:29 Troponin, BNP 02/14/18 02/14/18 02/15/18 18:29 18:29 05:55 Troponin I < 0.02 < 0.02 B-Natriuretic Peptide 94.57 Normal sinus rhythm with nonspecific ST-T abnormality Imaging - Results Chest X-ray: Report Reviewed (Mild COPD) Cat Scan: Report Reviewed (Chest CT: Moderate COPD) EKG: Report Reviewed Problem List - Problems (1) HTN (hypertension) Code(s): I10 - ESSENTIAL (PRIMARY) HYPERTENSION Qualifiers: Hypertension type: essential hypertension Qualified Code(s): I10 - Essential (primary) hypertension (2) Carotid stenosis Code(s): I65.29 - OCCLUSION AND STENOSIS OF UNSPECIFIED CAROTID ARTERY (3) H/O carotid endarterectomy Code(s): Z98.890 - OTHER SPECIFIED POSTPROCEDURAL STATES (4) ASHD (arteriosclerotic heart disease) Code(s): I25.10 - ATHSCL HEART DISEASE OF [place] CORONARY ARTERY W/O ANG PCTRS (5) COPD exacerbation Code(s): J44.1 - CHRONIC OBSTRUCTIVE PULMONARY DISEASE W (ACUTE) EXACERBATION (6) History of myocardial infarction Code(s): I25.2 - OLD MYOCARDIAL INFARCTION (7) Hyperlipidemia Code(s): E78.5 - HYPERLIPIDEMIA, UNSPECIFIED Qualifiers: Hyperlipidemia type: pure hypercholesterolemia Qualified Code(s): E78.00 - Pure hypercholesterolemia, unspecified; E78.0 - Pure hypercholesterolemia (8) Peripheral artery disease Code(s): I73.9 - PERIPHERAL VASCULAR DISEASE, UNSPECIFIED Assessment/Plan 1. Clinical presentation c/w acute exacerbation of COPD and probable pneumonia 2. Chronic diastolic LV dysfunction with class I-II NYHA classification heart failure 3. HTN 4. Hypercholesterolemia 5. Carotid stenosis s/p CEA 6. PVD post intervention 7. Mesenteric ischemia PLAN: 1. Steroids and bronchodilators 2. Continue Verapamil and Imdur 3. Statin 4. Plavix 5. Currently on Ranexa 6. Diuretics Further plans are to follow Gerard Nichols MD
--- NOTE | 2018-02-15 12:01 | PN ---
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 transplanted heart: marshall heart Associated angina: without angina Qualified Code(s): I25.10 - Atherosclerotic heart disease of [place] coronary artery without angina pectoris (6) History of myocardial infarction Code(s): I25.2 - OLD MYOCARDIAL INFARCTION (7) Peripheral artery disease Code(s): I73.9 - PERIPHERAL VASCULAR DISEASE, UNSPECIFIED
--- NOTE | 2018-02-15 13:03 | CONS ---
DATE OF CONSULTATION: 02/15/2018 REFERRING PHYSICIAN: Casi Cohn MD HISTORY OF PRESENT ILLNESS: The patient is a 62-year-old white female known to me from previous hospitalization with a past medical history of advanced COPD, hyperlipidemia, hypertension, ASHD, status post [place] 30 years ago, status post angioplasties, peripheral vascular disease, and has a history of tobacco use approximately 1 pack per day for many years quit 1 year ago, admitted to [facility] with a complaint of 1-week history of increasing shortness of breath, cough, and chest congestion. Patient states for the past week or so, she started noticing increasing shortness of breath. She attributed this to hot, humid weather. Apparently, she has been taking increasing dose of her inhaler without any improvement. She also complains of a productive cough of yellow sputum. She denies any hemoptysis. She denied any fevers, did have some chills. She denies any nausea, vomiting, diaphoresis. She denies any chest pains or palpitations. She presented to the emergency room with the above complaints. In the ER, she was felt to have acute exacerbation of COPD. She was started on inhaled bronchodilators and steroids and transferred to the medical floor for further management. Patient denies any history of occupational exposure to chemical fumes. There is no history of recent travel. PAST MEDICAL HISTORY: Again includes ASHD, status post [place], COPD, hyperlipidemia, hypertension, peripheral vascular disease. SOCIAL HISTORY: Positive for tobacco, 1 pack per day for many years, quit 1 year ago. No occupational exposures. CURRENT MEDICATIONS: Include Solu-Medrol 60 q.8, Tylenol, Mylanta, Spiriva, albuterol, Duo-Neb, verapamil, Ranexa, Colace, Flonase, Zantac, Lipitor, NovoLog, Singulair, Lasix, Imdur, Plavix, Protonix, K-Dur, and folic acid. REVIEW OF SYSTEMS: Positive for cough. Positive for shortness of breath. Positive for wheezing. No chest pain. No palpitations. No abdominal pain. No hemoptysis. No lower extremity edema. PHYSICAL EXAMINATION: General: The patient is an elderly white female, awake, alert, in no acute distress. Vital signs: She is afebrile, blood pressure 148/90, respiratory rate 20, O2 saturation is 98% on 2 L. HEENT: Head is normocephalic atraumatic. Neck: Supple. Heart: Regular, S1, S2. Chest: Scattered bilateral wheezes air. Abdomen: Soft. Bowel sounds positive. Extremities: No cyanosis or edema. LABORATORIES: WBC is 7.5, hemoglobin 13.1, hematocrit 39, platelet count 296,000. INR is 0.98. Chemistries: BUN 8, creatinine 0.8. BNP 94. Troponin is less than 0.2. Chest CT chronic COPD changes bilaterally. No definitive infiltrate is appreciated. IMPRESSION: 1. Dyspnea secondary to acute exacerbation of chronic obstructive pulmonary disease, likely secondary to upper respiratory infection. 2. Atherosclerotic heart disease status post myocardial infarction. 3. Hypertension. 4. Left ventricular diastolic dysfunction. 5. Peripheral vascular disease. 6. Gastroesophageal reflux disease. PLAN: Continue IV steroids, inhaled bronchodilators, supplemental O2, antibiotics, sputum for culture and sensitivity. EMMETT LEÓN M.D. [id number]
--- NOTE | 2018-02-15 13:55 | EKG ---
Test Reason : Blood Pressure : / mmHG Vent. Rate : 087 BPM Atrial Rate : 087 BPM P-R Int : 190 ms QRS Dur : 088 ms QT Int : 400 ms P-R-T Axes : 064 063 048 degrees QTc Int : 481 ms POOR DATA QUALITY, INTERPRETATION MAY BE ADVERSELY AFFECTED NORMAL SINUS RHYTHM NONSPECIFIC ST AND T WAVE ABNORMALITY ABNORMAL ECG WHEN COMPARED WITH ECG OF 31-JUL-2016 19:15, NO SIGNIFICANT CHANGE WAS FOUND Confirmed by Guevara Goins MD ([id number]) on 02/15/2018 1:55:24 PM Referred By: Confirmed By:Guevara Goins MD
[2018-02-15] MEDS: BUDESONIDE/FORMETEROL FUMARATE 160/4.5 mcg INHALER IH SCH ×2 (15:27→21:00)
[2018-02-15] MEDS ORDERED: INSULIN SLIDING SCALE (NOVOLOG) 1 VIAL SQ SCH (15:30)
[2018-02-15] MEDS: ACETAMINOPHEN 325 MG TABLET (FP) PO PRN (20:46)
[2018-02-15] MEDS: ATORVASTATIN CA 80 MG TABLET (FP) PO SCH (21:00)
[2018-02-15] MEDS: DOCUSATE SODIUM 100 MG CAPSULE (FP) PO SCH (21:01)
[2018-02-15] MEDS: MONTELUKAST NA 10 MG TABLET PO SCH (21:01)
[2018-02-16] MEDS: methylPREDNISolone NA SUCC 125 MG/2 ML VIAL IVPB SCH ×3 (05:28→20:49)
[2018-02-16] MEDS: INSULIN SLIDING SCALE (NOVOLOG) 1 VIAL SQ SCH (06:01)
--- NOTE | 2018-02-16 07:01 | PN ---
Progress Note, Physician Chief Complaint: in bed feels same still tight, wheezing and coughing; no CP ; afebrile - Current Medication List Current Medications: Active Medications Acetaminophen (Tylenol -) 650 mg PO Q6H PRN PRN Reason: FEVER Last Admin: 02/15/18 20:46 Dose: 650 mg Al Hydroxide/Mg Hydroxide (Mylanta Oral Suspension -) 30 ml PO Q6H PRN PRN Reason: DYSPEPSIA Albuterol Sulfate (Ventolin 0.083% Nebulizer Soln -) 1 amp NEB Q4H PRN PRN Reason: SHORT OF BREATH/WHEEZING Last Admin: 02/15/18 20:36 Dose: 1 amp Alprazolam (Xanax -) 0.25 mg PO HS PRN PRN Reason: ANXIETY Atorvastatin Calcium (Lipitor -) 80 mg PO HS [facility] Last Admin: 02/15/18 21:00 Dose: 80 mg Budesonide/Formoterol Fumarate (Symbicort 160/4.5mcg -) 2 puff IH BID [facility] Last Admin: 02/15/18 21:00 Dose: 2 puff Clopidogrel Bisulfate (Plavix -) 75 mg PO DAILY [facility] Last Admin: 02/15/18 08:59 Dose: 75 mg Docusate Sodium (Colace -) 300 mg PO [facility] Last Admin: 02/15/18 21:01 Dose: 300 mg Fluticasone Propionate (Flonase -) 1 spray NS BID [facility] Last Admin: 02/15/18 21:00 Dose: 1 spray Folic Acid (Folic Acid -) 1 mg PO DAILY [facility] Last Admin: 02/15/18 09:00 Dose: 1 mg Furosemide (Lasix -) 20 mg PO DAILY [facility] Last Admin: 02/15/18 09:00 Dose: 20 mg Insulin Aspart (Novolog Vial Sliding Scale -) 1 vial SQ AM [facility]; Protocol Last Admin: 02/16/18 06:01 Dose: Not Given Isosorbide Mononitrate (Imdur -) 30 mg PO BID [facility] Last Admin: 02/15/18 21:00 Dose: 30 mg Methylprednisolone Sodium Succinate (Solu-Medrol -) 60 mg IVPB Q8H [facility] Last Admin: 02/16/18 05:28 Dose: 60 mg Montelukast Sodium (Singulair -) 10 mg PO [facility] Last Admin: 02/15/18 21:01 Dose: 10 mg Nitroglycerin (Nitrostat -) 0.4 mg SL TID PRN PRN Reason: FOR CHEST PAIN Pantoprazole Sodium (Protonix -) 40 mg PO DAILY [facility] Last Admin: 02/15/18 09:02 Dose: 40 mg Potassium Chloride (K-Dur -) 20 meq PO DAILY [facility] Last Admin: 02/15/18 08:59 Dose: 20 meq Ranitidine HCl (Zantac -) 150 mg PO DAILY [facility] Last Admin: 02/15/18 08:59 Dose: 150 mg Ranolazine (Ranexa -) 500 mg PO BID [facility] Last Admin: 02/15/18 21:01 Dose: Not Given Tiotropium [place] (Spiriva -) 1 puff IH DAILY [facility] Last Admin: 02/15/18 09:01 Dose: 1 puff Verapamil HCl (Calan Sr -) 240 mg PO BID [facility] Last Admin: 02/15/18 21:11 Dose: 240 mg - Objective Vital Signs: Vital Signs Temperature 98.2 F 02/16/18 05:35 Pulse Rate 81 02/16/18 05:35 Respiratory Rate 20 02/16/18 05:35 Blood Pressure 102/66 02/16/18 05:35 O2 Sat by Pulse Oximetry (%) 95 02/15/18 21:00 Constitutional: Yes: No Distress, Calm Eyes: Yes: Conjunctiva Clear HENT: Yes: Atraumatic Neck: Yes: Supple Cardiovascular: Yes: Regular Rate and Rhythm Respiratory: Yes: Rales, Wheezes Genitourinary: No: CVA Tenderness - Left, CVA Tenderness - Right Musculoskeletal: No: Joint Stiffness, Joint Swelling Extremities: No: Cold, Cool, Cyanosis Edema: No Integumentary: No: Pressure Ulcer, Rash, Venous Stasis Changes Neurological: Yes: WNL, Alert, Oriented ...Motor Strength: WNL Psychiatric: Yes: WNL, Alert, Oriented. No: Agitated, Suicidal Ideation Labs: CBC, BMP 02/15/18 05:55 02/15/18 05:55 INR, PTT INR 0.98 (0.82-1.09) 02/14/18 18:29 - ....Imaging Cat Scan: Report Reviewed Other: Report Reviewed Assessment/Plan Patient is a 62yo female with PMH of [place] s/p angioplasty, carotid endarterectomy , COPD admitted with acute URI/ pneumonia and COPD exacerbation all tests and consults reviewed and d/w pt IV steroids, nebs, IV antibiotics noted chest CT; carotid US c/w R stenosis > 70% - will ask vascular sx eval cardiology and pulmonary f/u f/u labs gastric PFX while on steroids BGM check while on steroids prn xanax for insomnia and anxiety; falls PFX will need hernias x 2 repair when stable cardiac and pulmonary resendez (not an emergency at this point) d/w pt importance to be compliant with recommendations t time 40 min
[2018-02-16] MEDS: ALBUTEROL SO4 0.083% IH SOL 2.5 MG/3 ML VIAL.NEB. NEB PRN ×3 (10:34→21:34)
[2018-02-16] MEDS ORDERED: PT OWN MED DRAWER 7, Y5N ONE ×3 (11:23→20:44)
[2018-02-16] MEDS: BUDESONIDE/FORMETEROL FUMARATE 160/4.5 mcg INHALER IH SCH ×2 (11:24→21:01)
[2018-02-16] MEDS: FLUTICASONE PROP 0.05% 16 GM NASAL SPRAY NS SCH ×2 (11:24→21:01)
[2018-02-16] MEDS: TIOTROPIUM BROMIDE 18 MCG CAPSULES IH SCH (11:24)
[2018-02-16] MEDS: CLOPIDOGREL BISULFATE 75 MG TABLET (FP) PO SCH (11:26)
[2018-02-16] MEDS: PANTOPRAZOLE 40 MG TABLET (FP) PO SCH (11:26)
[2018-02-16] MEDS: RANITIDINE HCL 150 MG TABLET (FP) PO SCH (11:26)
[2018-02-16] MEDS: ISOSORBIDE MONONITRATE 30 MG TAB.SR.24H (FP) PO SCH ×2 (11:26→21:00)
[2018-02-16] MEDS: POTASSIUM CHLORIDE TABS 10 MEQ TABLET.ER (FP) PO SCH (11:26)
[2018-02-16] MEDS: VERAPAMIL HCL 240 MG E.R. TABLET (FP) PO SCH ×2 (11:26→21:00)
[2018-02-16] MEDS: FUROSEMIDE 20 MG TABLET (FP) PO SCH (11:26)
[2018-02-16] MEDS: FOLIC ACID 1 MG TABLET (FP) PO SCH (11:26)
[2018-02-16] MEDS: RANOLAZINE E.R. 500 MG TABLET (FP) PO SCH ×2 (11:26→21:03)
--- NOTE | 2018-02-16 11:46 | PN ---
Progress Note, Physician History of Present Illness: Dyspnea, productive cough and wheeze persists. - Current Medication List Current Medications: Active Medications Acetaminophen (Tylenol -) 650 mg PO Q6H PRN PRN Reason: FEVER Last Admin: 02/15/18 20:46 Dose: 650 mg Al Hydroxide/Mg Hydroxide (Mylanta Oral Suspension -) 30 ml PO Q6H PRN PRN Reason: DYSPEPSIA Albuterol Sulfate (Ventolin 0.083% Nebulizer Soln -) 1 amp NEB Q4H PRN PRN Reason: SHORT OF BREATH/WHEEZING Last Admin: 02/16/18 10:34 Dose: 1 amp Alprazolam (Xanax -) 0.25 mg PO HS PRN PRN Reason: ANXIETY Atorvastatin Calcium (Lipitor -) 80 mg PO HS [facility] Last Admin: 02/15/18 21:00 Dose: 80 mg Budesonide/Formoterol Fumarate (Symbicort 160/4.5mcg -) 2 puff IH BID [facility] Last Admin: 02/16/18 11:24 Dose: 2 puff Clopidogrel Bisulfate (Plavix -) 75 mg PO DAILY [facility] Last Admin: 02/16/18 11:26 Dose: 75 mg Docusate Sodium (Colace -) 300 mg PO [facility] Last Admin: 02/15/18 21:01 Dose: 300 mg Fluticasone Propionate (Flonase -) 1 spray NS BID [facility] Last Admin: 02/16/18 11:24 Dose: 1 spray Folic Acid (Folic Acid -) 1 mg PO DAILY [facility] Last Admin: 02/16/18 11:26 Dose: 1 mg Furosemide (Lasix -) 20 mg PO DAILY [facility] Last Admin: 02/16/18 11:26 Dose: 20 mg Insulin Aspart (Novolog Vial Sliding Scale -) 1 vial SQ AM [facility]; Protocol Last Admin: 02/16/18 06:01 Dose: Not Given Isosorbide Mononitrate (Imdur -) 30 mg PO BID [facility] Last Admin: 02/16/18 11:26 Dose: 30 mg Methylprednisolone Sodium Succinate (Solu-Medrol -) 60 mg IVPB Q8H [facility] Last Admin: 02/16/18 05:28 Dose: 60 mg Montelukast Sodium (Singulair -) 10 mg PO [facility] Last Admin: 02/15/18 21:01 Dose: 10 mg Nitroglycerin (Nitrostat -) 0.4 mg SL TID PRN PRN Reason: FOR CHEST PAIN Pantoprazole Sodium (Protonix -) 40 mg PO DAILY [facility] Last Admin: 02/16/18 11:26 Dose: 40 mg Potassium Chloride (K-Dur -) 20 meq PO DAILY [facility] Last Admin: 02/16/18 11:26 Dose: 20 meq Ranitidine HCl (Zantac -) 150 mg PO DAILY [facility] Last Admin: 02/16/18 11:26 Dose: 150 mg Ranolazine (Ranexa -) 500 mg PO BID [facility] Last Admin: 02/16/18 11:26 Dose: 500 mg Tiotropium [place] (Spiriva -) 1 puff IH DAILY [facility] Last Admin: 02/16/18 11:24 Dose: 1 puff Verapamil HCl (Calan Sr -) 240 mg PO BID [facility] Last Admin: 02/16/18 11: Dose: 240 mg - Objective Vital Signs: Vital Signs Temperature 98.2 F 02/16/18 05:35 Pulse Rate 81 02/16/18 05:35 Respiratory Rate 20 02/16/18 05:35 Blood Pressure 102/66 02/16/18 05:35 O2 Sat by Pulse Oximetry (%) 95 02/15/18 21:00 Constitutional: Yes: No Distress, Calm Neck: Yes: Supple Cardiovascular: Yes: Regular Rate and Rhythm Respiratory: Yes: Regular, Cough, Diminished, On Nasal O2, SOB, Wheezes Gastrointestinal: Yes: Normal Bowel Sounds, Soft Edema: No Labs: CBC, BMP 02/15/18 05:55 02/15/18 05:55 INR, PTT INR 0.98 (0.82-1.09) 02/14/18 18:29 - ....Imaging Cat Scan: Report Reviewed (Mod COPD, stable scattered nodules) Ultrasound: Report Reviewed (Bilateral > 70% prox ICA stenosis) Problem List - Problems (1) H/O carotid endarterectomy Code(s): Z98.890 - OTHER SPECIFIED POSTPROCEDURAL STATES (2) COPD exacerbation Code(s): J44.1 - CHRONIC OBSTRUCTIVE PULMONARY DISEASE W (ACUTE) EXACERBATION (3) Coronary artery disease Code(s): I25.10 - ATHSCL HEART DISEASE OF [place] CORONARY ARTERY W/O ANG PCTRS Qualifiers: Coronary Disease-Associated Artery/Lesion type: [place] artery [place] vs. 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 AE COPD 2. CAD s/p [place], angina pectorus 3. Diastolic dysfunction 4. HTN/HCVD 5. Hyperlipidemia 6. Bilateral carotid artery disease post right CEA 7. Mesenteric ischemia post intervention 8. PAD post intervention P:1. BD, IV steroids with GI protection, empiric abx, Singulair, O2 as needed 2. Continue Verapamil SR 240 mg BID, Imdur 30 mg BID and Ranexa 500 mg BID 3. Continue Lipitor 80 mg QHSm Lasix 20 mg QD and Plavix 75 qd 4. Follow up with Dr. Luis Eduardo Manning, patient's poker manager upon discharge
--- NOTE | 2018-02-16 12:04 | PN ---
Progress Note, Physician History of Present Illness: pulmonary alert,still dyspneic,+cough - Current Medication List Current Medications: Active Medications Acetaminophen (Tylenol -) 650 mg PO Q6H PRN PRN Reason: FEVER Last Admin: 02/15/18 20:46 Dose: 650 mg Al Hydroxide/Mg Hydroxide (Mylanta Oral Suspension -) 30 ml PO Q6H PRN PRN Reason: DYSPEPSIA Albuterol Sulfate (Ventolin 0.083% Nebulizer Soln -) 1 amp NEB Q4H PRN PRN Reason: SHORT OF BREATH/WHEEZING Last Admin: 02/16/18 10:34 Dose: 1 amp Alprazolam (Xanax -) 0.25 mg PO HS PRN PRN Reason: ANXIETY Atorvastatin Calcium (Lipitor -) 80 mg PO HS [facility] Last Admin: 02/15/18 21:00 Dose: 80 mg Budesonide/Formoterol Fumarate (Symbicort 160/4.5mcg -) 2 puff IH BID [facility] Last Admin: 02/16/18 11:24 Dose: 2 puff Clopidogrel Bisulfate (Plavix -) 75 mg PO DAILY [facility] Last Admin: 02/16/18 11:26 Dose: 75 mg Docusate Sodium (Colace -) 300 mg PO [facility] Last Admin: 02/15/18 21:01 Dose: 300 mg Fluticasone Propionate (Flonase -) 1 spray NS BID [facility] Last Admin: 02/16/18 11:24 Dose: 1 spray Folic Acid (Folic Acid -) 1 mg PO DAILY [facility] Last Admin: 02/16/18 11:26 Dose: 1 mg Furosemide (Lasix -) 20 mg PO DAILY [facility] Last Admin: 02/16/18 11:26 Dose: 20 mg Insulin Aspart (Novolog Vial Sliding Scale -) 1 vial SQ AM [facility]; Protocol Last Admin: 02/16/18 06:01 Dose: Not Given Isosorbide Mononitrate (Imdur -) 30 mg PO BID [facility] Last Admin: 02/16/18 11:26 Dose: 30 mg Methylprednisolone Sodium Succinate (Solu-Medrol -) 60 mg IVPB Q8H [facility] Last Admin: 02/16/18 05:28 Dose: 60 mg Montelukast Sodium (Singulair -) 10 mg PO [facility] Last Admin: 02/15/18 21:01 Dose: 10 mg Nitroglycerin (Nitrostat -) 0.4 mg SL TID PRN PRN Reason: FOR CHEST PAIN Pantoprazole Sodium (Protonix -) 40 mg PO DAILY [facility] Last Admin: 02/16/18 11: Dose: 40 mg Potassium Chloride (K-Dur -) 20 meq PO DAILY [facility] Last Admin: 02/16/18 11:26 Dose: 20 meq Ranitidine HCl (Zantac -) 150 mg PO DAILY [facility] Last Admin: 02/16/18 11: Dose: 150 mg Ranolazine (Ranexa -) 500 mg PO BID [facility] Last Admin: 02/16/18 11: Dose: 500 mg Tiotropium [place] (Spiriva -) 1 puff IH DAILY [facility] Last Admin: 02/16/18 11:24 Dose: 1 puff Verapamil HCl (Calan Sr -) 240 mg PO BID [facility] Last Admin: 02/16/18 11: Dose: 240 mg - Objective Vital Signs: Vital Signs Temperature 98.2 F 02/16/18 05:35 Pulse Rate 81 02/16/18 05:35 Respiratory Rate 20 02/16/18 05:35 Blood Pressure 102/66 02/16/18 05:35 O2 Sat by Pulse Oximetry (%) 95 02/15/18 21:00 Constitutional: Yes: Well Nourished, Calm Eyes: Yes: WNL HENT: Yes: WNL Neck: Yes: WNL Cardiovascular: Yes: Regular Rate and Rhythm, S1, S2 Respiratory: Yes: Rhonchi (bilateral wheezes and rhonchi), Wheezes Gastrointestinal: Yes: Normal Bowel Sounds, Soft Extremities: Yes: WNL Edema: No Labs: CBC, BMP Problem List - Problems (1) ASHD (arteriosclerotic heart disease) Code(s): I25.10 - ATHSCL HEART DISEASE OF [place] CORONARY ARTERY W/O ANG PCTRS (2) Anemia Code(s): D64.9 - ANEMIA, UNSPECIFIED (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 transplanted heart: [place] heart Associated angina: without angina Qualified Code(s): I25.10 - Atherosclerotic heart disease of [place] coronary artery without angina pectoris (6) History of myocardial infarction Code(s): I25.2 - OLD MYOCARDIAL INFARCTION (7) Peripheral artery disease Code(s): I73.9 - PERIPHERAL VASCULAR DISEASE, UNSPECIFIED Assessment/Plan IMP DYSPNEA COPD EXACERBATION ASHD S/P WI LV DIASTOLIC DYSFUNCTION HTN PVD GERD BARRETTS CAROTID ARTERY DISESE PLAN IV STEROIDS SAME DOSE INHALED BRONCHODILATORS O2 ABX DR LEÓN Problem List - Problems (1) ASHD (arteriosclerotic heart disease) Code(s): I25.10 - ATHSCL HEART DISEASE OF [place] CORONARY ARTERY W/O ANG PCTRS (2) Anemia Code(s): D64.9 - ANEMIA, UNSPECIFIED (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 transplanted heart: [place] heart Associated angina: without angina Qualified Code(s): I25.10 - Atherosclerotic heart disease of [place] coronary artery without angina pectoris (6) History of myocardial infarction Code(s): I25.2 - OLD MYOCARDIAL INFARCTION (7) Peripheral artery disease Code(s): I73.9 - PERIPHERAL VASCULAR DISEASE, UNSPECIFIED
--- NOTE | 2018-02-16 17:01 | PN ---
Progress Note (short form) - Note Progress Note: Vascular Surgery Pt seen and examined. Came in for shortness of breath. Carotid dopplers reviewed from july and this visit. In July her carotid dopplers were essentially normal, not needing any surgical intevention. She has had right CEA in the past in this hospital. Now now this admission, the PSV in bl internal carotids are elevated to over 70- 80%. Not sure if this a error. But there is disease progression from July to today. Gold standard test would be CTA of carotids. Creatinine is normal. Can do on this admission or as outpt. Pt currently here for her breathing. Will follow Lauri Martin DO
[2018-02-16] MEDS: ACETAMINOPHEN 325 MG TABLET (FP) PO PRN (20:51)
[2018-02-16] MEDS: MONTELUKAST NA 10 MG TABLET PO SCH (21:00)
[2018-02-16] MEDS: ATORVASTATIN CA 80 MG TABLET (FP) PO SCH (21:02)
[2018-02-16] MEDS: DOCUSATE SODIUM 100 MG CAPSULE (FP) PO SCH (21:03)
[2018-02-17] MEDS: methylPREDNISolone NA SUCC 125 MG/2 ML VIAL IVPB SCH ×3 (05:59→21:06)
[2018-02-17] MEDS: INSULIN SLIDING SCALE (NOVOLOG) 1 VIAL SQ SCH (06:01)
--- NOTE | 2018-02-17 07:37 | PN ---
Progress Note, Physician Chief Complaint: in bed feels a little better but still coughing - Current Medication List Current Medications: Active Medications Acetaminophen (Tylenol -) 650 mg PO Q6H PRN PRN Reason: FEVER Last Admin: 02/16/18 20:51 Dose: 650 mg Al Hydroxide/Mg Hydroxide (Mylanta Oral Suspension -) 30 ml PO Q6H PRN PRN Reason: DYSPEPSIA Albuterol Sulfate (Ventolin 0.083% Nebulizer Soln -) 1 amp NEB Q4H PRN PRN Reason: SHORT OF BREATH/WHEEZING Last Admin: 02/16/18 21:34 Dose: 1 amp Alprazolam (Xanax -) 0.25 mg PO HS PRN PRN Reason: ANXIETY Atorvastatin Calcium (Lipitor -) 80 mg PO HS [facility] Last Admin: 02/16/18 21:02 Dose: 80 mg Budesonide/Formoterol Fumarate (Symbicort 160/4.5mcg -) 2 puff IH BID [facility] Last Admin: 02/16/18 21:01 Dose: 2 puff Clopidogrel Bisulfate (Plavix -) 75 mg PO DAILY [facility] Last Admin: 02/16/18 11:26 Dose: 75 mg Docusate Sodium (Colace -) 300 mg PO HS [facility] Last Admin: 02/16/18 21:03 Dose: 300 mg Fluticasone Propionate (Flonase -) 1 spray NS BID [facility] Last Admin: 02/16/18 21:01 Dose: 1 spray Folic Acid (Folic Acid -) 1 mg PO DAILY [facility] Last Admin: 02/16/18 11:26 Dose: 1 mg Furosemide (Lasix -) 20 mg PO DAILY [facility] Last Admin: 02/16/18 11:26 Dose: 20 mg Levofloxacin (Levaquin 500 Mg Premixed Ivpb -) 500 mg in 100 mls @ 100 mls/hr IVPB DAILY [facility]; Protocol Last Admin: 02/16/18 13:54 Dose: 100 mls/hr Insulin Aspart (Novolog Vial Sliding Scale -) 1 vial SQ AM [facility]; Protocol Last Admin: 02/17/18 06:01 Dose: Not Given Isosorbide Mononitrate (Imdur -) 30 mg PO BID [facility] Last Admin: 02/16/18 21:00 Dose: 30 mg Methylprednisolone Sodium Succinate (Solu-Medrol -) 60 mg IVPB Q8H [facility] Last Admin: 02/17/18 05:59 Dose: 60 mg Montelukast Sodium (Singulair -) 10 mg PO HS [facility] Last Admin: 02/16/18 21:00 Dose: 10 mg Nitroglycerin (Nitrostat -) 0.4 mg SL TID PRN PRN Reason: FOR CHEST PAIN Pantoprazole Sodium (Protonix -) 40 mg PO DAILY [facility] Last Admin: 02/16/18 11:26 Dose: 40 mg Potassium Chloride (K-Dur -) 20 meq PO DAILY [facility] Last Admin: 02/16/18 11:26 Dose: 20 meq Ranitidine HCl (Zantac -) 150 mg PO DAILY [facility] Last Admin: 02/16/18 11:26 Dose: 150 mg Ranolazine (Ranexa -) 500 mg PO BID [facility] Last Admin: 02/16/18 21:03 Dose: 500 mg Tiotropium [place] (Spiriva -) 1 puff IH DAILY [facility] Last Admin: 02/16/18 11:24 Dose: 1 puff Verapamil HCl (Calan Sr -) 240 mg PO BID [facility] Last Admin: 02/16/18 21:00 Dose: 240 mg - Objective Vital Signs: Vital Signs Temperature 98.5 F 02/17/18 06:00 Pulse Rate 65 02/17/18 06:00 Respiratory Rate 20 02/17/18 06:00 Blood Pressure 100/55 02/17/18 06:00 O2 Sat by Pulse Oximetry (%) 95 02/16/18 21:00 Constitutional: Yes: No Distress, Calm Eyes: Yes: Conjunctiva Clear HENT: Yes: Atraumatic Neck: Yes: Supple Cardiovascular: Yes: Regular Rate and Rhythm Respiratory: Yes: Wheezes Gastrointestinal: Yes: Soft. No: Tenderness Musculoskeletal: No: Joint Stiffness, Joint Swelling Extremities: No: Cold, Cool Edema: No Integumentary: No: Rash, Venous Stasis Changes Neurological: Yes: WNL, Alert, Oriented ...Motor Strength: WNL Psychiatric: Yes: WNL, Alert, Oriented. No: Agitated, Suicidal Ideation Labs: CBC, BMP 02/15/18 05:55 02/15/18 05:55 INR, PTT INR 0.98 (0.82-1.09) 02/14/18 18:29 - ....Imaging Other: Report Reviewed Assessment/Plan Patient is a 62yo female with PMH of [place] s/p angioplasty, carotid endarterectomy , COPD admitted with acute URI/ pneumonia and COPD exacerbation all tests and consults reviewed and d/w pt IV steroids, nebs, IV antibiotics noted chest CT; carotid US c/w R stenosis > 70% - vascular sx f/u cardiology and pulmonary f/u f/u labs gastric PFX while on steroids BGM check while on steroids prn xanax for insomnia and anxiety; falls PFX
--- NOTE | 2018-02-17 08:36 | PN ---
Progress Note, Physician History of Present Illness: Dyspnea, productive cough and wheeze persists. - Current Medication List Current Medications: Active Medications Acetaminophen (Tylenol -) 650 mg PO Q6H PRN PRN Reason: FEVER Last Admin: 02/16/18 20:51 Dose: 650 mg Al Hydroxide/Mg Hydroxide (Mylanta Oral Suspension -) 30 ml PO Q6H PRN PRN Reason: DYSPEPSIA Albuterol Sulfate (Ventolin 0.083% Nebulizer Soln -) 1 amp NEB Q4H PRN PRN Reason: SHORT OF BREATH/WHEEZING Last Admin: 02/16/18 21:34 Dose: 1 amp Alprazolam (Xanax -) 0.25 mg PO HS PRN PRN Reason: ANXIETY Atorvastatin Calcium (Lipitor -) 80 mg PO HS [facility] Last Admin: 02/16/18 21:02 Dose: 80 mg Budesonide/Formoterol Fumarate (Symbicort 160/4.5mcg -) 2 puff IH BID [facility] Last Admin: 02/16/18 21:01 Dose: 2 puff Clopidogrel Bisulfate (Plavix -) 75 mg PO DAILY [facility] Last Admin: 02/16/18 11:26 Dose: 75 mg Docusate Sodium (Colace -) 300 mg PO HS [facility] Last Admin: 02/16/18 21:03 Dose: 300 mg Fluticasone Propionate (Flonase -) 1 spray NS BID [facility] Last Admin: 02/16/18 21:01 Dose: 1 spray Folic Acid (Folic Acid -) 1 mg PO DAILY [facility] Last Admin: 02/16/18 11:26 Dose: 1 mg Furosemide (Lasix -) 20 mg PO DAILY [facility] Last Admin: 02/16/18 11:26 Dose: 20 mg Levofloxacin (Levaquin 500 Mg Premixed Ivpb -) 500 mg in 100 mls @ 100 mls/hr IVPB DAILY [facility]; Protocol Last Admin: 02/16/18 13:54 Dose: 100 mls/hr Insulin Aspart (Novolog Vial Sliding Scale -) 1 vial SQ AM [facility]; Protocol Last Admin: 02/17/18 06:01 Dose: Not Given Isosorbide Mononitrate (Imdur -) 30 mg PO BID [facility] Last Admin: 02/16/18 21:00 Dose: 30 mg Methylprednisolone Sodium Succinate (Solu-Medrol -) 60 mg IVPB Q8H [facility] Last Admin: 02/17/18 05:59 Dose: 60 mg Montelukast Sodium (Singulair -) 10 mg PO HS [facility] Last Admin: 02/16/18 21:00 Dose: 10 mg Nitroglycerin (Nitrostat -) 0.4 mg SL TID PRN PRN Reason: FOR CHEST PAIN Pantoprazole Sodium (Protonix -) 40 mg PO DAILY [facility] Last Admin: 02/16/18 11:26 Dose: 40 mg Potassium Chloride (K-Dur -) 20 meq PO DAILY [facility] Last Admin: 02/16/18 11:26 Dose: 20 meq Ranitidine HCl (Zantac -) 150 mg PO DAILY [facility] Last Admin: 02/16/18 11:26 Dose: 150 mg Ranolazine (Ranexa -) 500 mg PO BID [facility] Last Admin: 02/16/18 21:03 Dose: 500 mg Tiotropium [place] (Spiriva -) 1 puff IH DAILY [facility] Last Admin: 02/16/18 11:24 Dose: 1 puff Verapamil HCl (Calan Sr -) 240 mg PO BID [facility] Last Admin: 02/16/18 21:00 Dose: 240 mg - Objective Vital Signs: Vital Signs Temperature 98.5 F 02/17/18 06:00 Pulse Rate 65 02/17/18 06:00 Respiratory Rate 20 02/17/18 06:00 Blood Pressure 100/55 02/17/18 06:00 O2 Sat by Pulse Oximetry (%) 95 02/16/18 21:00 Constitutional: Yes: No Distress, Calm Neck: Yes: Supple Cardiovascular: Yes: Regular Rate and Rhythm Respiratory: Yes: Regular, Cough, Diminished, SOB, Wheezes Gastrointestinal: Yes: Normal Bowel Sounds, Soft Edema: No Labs: CBC, BMP 02/15/18 05:55 02/15/18 05:55 INR, PTT INR 0.98 (0.82-1.09) 02/14/18 18:29 Problem List - Problems (1) H/O carotid endarterectomy Code(s): Z98.890 - OTHER SPECIFIED POSTPROCEDURAL STATES (2) COPD exacerbation Code(s): J44.1 - CHRONIC OBSTRUCTIVE PULMONARY DISEASE W (ACUTE) EXACERBATION (3) Coronary artery disease Code(s): I25.10 - ATHSCL HEART DISEASE OF [place] CORONARY ARTERY W/O ANG PCTRS Qualifiers: Coronary Disease-Associated Artery/Lesion type: [place] artery [place] vs. 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 AE COPD 2. CAD s/p [place], angina pectorus 3. Diastolic dysfunction 4. HTN/HCVD 5. Hyperlipidemia 6. Bilateral carotid artery disease post right CEA 7. Mesenteric ischemia post intervention 8. PAD post intervention P:1. BD, IV steroids with GI protection, empiric abx, Singulair, O2 as needed 2. Continue Verapamil SR 240 mg BID, Imdur 30 mg BID and Ranexa 500 mg BID 3. Continue Lipitor 80 mg QHSm Lasix 20 mg QD and Plavix 75 qd 4. Follow up with Dr. Luis Eduardo Manning, patient's die cutter apprentice upon discharge 5. CTA carotids per vascular input
[2018-02-17] MEDS: ALBUTEROL SO4 0.083% IH SOL 2.5 MG/3 ML VIAL.NEB. NEB PRN ×2 (08:52→21:10)
[2018-02-17] MEDS ORDERED: PT OWN MED DRAWER 7, Y5N ONE ×4 (11:28→12:59)
[2018-02-17] MEDS: BUDESONIDE/FORMETEROL FUMARATE 160/4.5 mcg INHALER IH SCH ×2 (11:32→21:08)
[2018-02-17] MEDS: FOLIC ACID 1 MG TABLET (FP) PO SCH (11:33)
[2018-02-17] MEDS: ISOSORBIDE MONONITRATE 30 MG TAB.SR.24H (FP) PO SCH ×2 (11:33→21:07)
[2018-02-17] MEDS: RANITIDINE HCL 150 MG TABLET (FP) PO SCH (11:33)
[2018-02-17] MEDS: RANOLAZINE E.R. 500 MG TABLET (FP) PO SCH ×2 (11:33→21:07)
[2018-02-17] MEDS: TIOTROPIUM BROMIDE 18 MCG CAPSULES IH SCH (11:33)
[2018-02-17] MEDS: CLOPIDOGREL BISULFATE 75 MG TABLET (FP) PO SCH (11:33)
[2018-02-17] MEDS: FUROSEMIDE 20 MG TABLET (FP) PO SCH (11:33)
[2018-02-17] MEDS: PANTOPRAZOLE 40 MG TABLET (FP) PO SCH (11:34)
[2018-02-17] MEDS: VERAPAMIL HCL 240 MG E.R. TABLET (FP) PO SCH ×2 (11:34→21:07)
[2018-02-17] MEDS: POTASSIUM CHLORIDE TABS 10 MEQ TABLET.ER (FP) PO SCH (11:34)
[2018-02-17] MEDS: FLUTICASONE PROP 0.05% 16 GM NASAL SPRAY NS SCH ×2 (11:34→21:07)
--- NOTE | 2018-02-17 13:22 | PN ---
Progress Note, Physician History of Present Illness: pulmonary alert,still congested,+ dough,+ dyspnea with min exertion - Current Medication List Current Medications: Active Medications Acetaminophen (Tylenol -) 650 mg PO Q6H PRN PRN Reason: FEVER Last Admin: 02/16/18 20:51 Dose: 650 mg Al Hydroxide/Mg Hydroxide (Mylanta Oral Suspension -) 30 ml PO Q6H PRN PRN Reason: DYSPEPSIA Albuterol Sulfate (Ventolin 0.083% Nebulizer Soln -) 1 amp NEB Q4H PRN PRN Reason: SHORT OF BREATH/WHEEZING Last Admin: 02/17/18 08:52 Dose: 1 amp Alprazolam (Xanax -) 0.25 mg PO HS PRN PRN Reason: ANXIETY Atorvastatin Calcium (Lipitor -) 80 mg PO HS [facility] Last Admin: 02/16/18 21:02 Dose: 80 mg Budesonide/Formoterol Fumarate (Symbicort 160/4.5mcg -) 2 puff IH BID [facility] Last Admin: 02/17/18 11:32 Dose: 2 puff Clopidogrel Bisulfate (Plavix -) 75 mg PO DAILY [facility] Last Admin: 02/17/18 11:33 Dose: 75 mg Docusate Sodium (Colace -) 300 mg PO HS [facility] Last Admin: 02/16/18 21:03 Dose: 300 mg Fluticasone Propionate (Flonase -) 1 spray NS BID [facility] Last Admin: 02/17/18 11:34 Dose: 1 spray Folic Acid (Folic Acid -) 1 mg PO DAILY [facility] Last Admin: 02/17/18 11:33 Dose: 1 mg Furosemide (Lasix -) 20 mg PO DAILY [facility] Last Admin: 02/17/18 11:33 Dose: 20 mg Levofloxacin (Levaquin 500 Mg Premixed Ivpb -) 500 mg in 100 mls @ 100 mls/hr IVPB DAILY [facility]; Protocol Last Admin: 02/17/18 11:32 Dose: 100 mls/hr Insulin Aspart (Novolog Vial Sliding Scale -) 1 vial SQ AM [facility]; Protocol Last Admin: 02/17/18 06:01 Dose: Not Given Isosorbide Mononitrate (Imdur -) 30 mg PO BID [facility] Last Admin: 02/17/18 11:33 Dose: 30 mg Methylprednisolone Sodium Succinate (Solu-Medrol -) 60 mg IVPB Q8H [facility] Last Admin: 02/17/18 12:56 Dose: 60 mg Montelukast Sodium (Singulair -) 10 mg PO HS [facility] Last Admin: 02/16/18 21:00 Dose: 10 mg Nitroglycerin (Nitrostat -) 0.4 mg SL TID PRN PRN Reason: FOR CHEST PAIN Pantoprazole Sodium (Protonix -) 40 mg PO DAILY [facility] Last Admin: 02/17/18 11:34 Dose: 40 mg Potassium Chloride (K-Dur -) 20 meq PO DAILY [facility] Last Admin: 02/17/18 11:34 Dose: 20 meq Ranitidine HCl (Zantac -) 150 mg PO DAILY [facility] Last Admin: 02/17/18 11:33 Dose: 150 mg Ranolazine (Ranexa -) 500 mg PO BID [facility] Last Admin: 02/17/18 11:33 Dose: 500 mg Tiotropium [place] (Spiriva -) 1 puff IH DAILY [facility] Last Admin: 02/17/18 11:33 Dose: 1 puff Verapamil HCl (Calan Sr -) 240 mg PO BID [facility] Last Admin: 02/17/18 11:34 Dose: 240 mg - Objective Vital Signs: Vital Signs Temperature 98.3 F 02/17/18 11:38 Pulse Rate 68 02/17/18 11:38 Respiratory Rate 20 02/17/18 11:38 Blood Pressure 109/54 02/17/18 11:38 O2 Sat by Pulse Oximetry (%) 95 02/16/18 21:00 Constitutional: Yes: Well Nourished, Calm Eyes: Yes: WNL HENT: Yes: WNL Neck: Yes: WNL Cardiovascular: Yes: Regular Rate and Rhythm, S1, S2 Respiratory: Yes: Wheezes (bilateral wheezes) Gastrointestinal: Yes: Normal Bowel Sounds, Soft Extremities: Yes: WNL Edema: No Labs: Problem List - Problems (1) ASHD (arteriosclerotic heart disease) Code(s): I25.10 - ATHSCL HEART DISEASE OF [place] CORONARY ARTERY W/O ANG PCTRS (2) Anemia Code(s): D64.9 - ANEMIA, UNSPECIFIED (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 transplanted heart: [place] heart Associated angina: without angina Qualified Code(s): I25.10 - Atherosclerotic heart disease of [place] coronary artery without angina pectoris (6) History of myocardial infarction Code(s): I25.2 - OLD MYOCARDIAL INFARCTION (7) Peripheral artery disease Code(s): I73.9 - PERIPHERAL VASCULAR DISEASE, UNSPECIFIED Assessment/Plan IMP DYSPNEA COPD EXACERBATION ASHD S/P [place] LV DIASTOLIC DYSFUNCTION HTN PVD GERD BARRETTS CAROTID ARTERY DISESE PLAN IV STEROIDS SAME DOSE INHALED BRONCHODILATORS O2 ABX DR LEÓN Problem List - Problems (1) ASHD (arteriosclerotic heart disease) Code(s): I25.10 - ATHSCL HEART DISEASE OF [place] CORONARY ARTERY W/O ANG PCTRS (2) Anemia Code(s): D64.9 - ANEMIA, UNSPECIFIED (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 transplanted heart: [place] heart Associated angina: without angina Qualified Code(s): I25.10 - Atherosclerotic heart disease of [place] coronary artery without angina pectoris (6) History of myocardial infarction Code(s): I25.2 - OLD MYOCARDIAL INFARCTION (7) Peripheral artery disease Code(s): I73.9 - PERIPHERAL VASCULAR DISEASE, UNSPECIFIED
[2018-02-17] MEDS: DOCUSATE SODIUM 100 MG CAPSULE (FP) PO SCH (21:07)
[2018-02-17] MEDS: ATORVASTATIN CA 80 MG TABLET (FP) PO SCH (21:07)
[2018-02-17] MEDS: MONTELUKAST NA 10 MG TABLET PO SCH (21:07)
[2018-02-18] MEDS: methylPREDNISolone NA SUCC 125 MG/2 ML VIAL IVPB SCH ×3 (05:12→21:27)
[2018-02-18] MEDS: INSULIN SLIDING SCALE (NOVOLOG) 1 VIAL SQ SCH (06:14)
[2018-02-18] MEDS ORDERED: PT OWN MED DRAWER 7, Y5N ONE ×2 (08:29→21:22)
[2018-02-18] MEDS: FLUTICASONE PROP 0.05% 16 GM NASAL SPRAY NS SCH ×2 (09:20→21:26)
[2018-02-18] MEDS: BUDESONIDE/FORMETEROL FUMARATE 160/4.5 mcg INHALER IH SCH ×2 (09:20→21:26)
[2018-02-18] MEDS: ALBUTEROL SO4 0.083% IH SOL 2.5 MG/3 ML VIAL.NEB. NEB PRN ×3 (09:38→21:10)
[2018-02-18] MEDS: TIOTROPIUM BROMIDE 18 MCG CAPSULES IH SCH (09:52)
[2018-02-18] MEDS: PANTOPRAZOLE 40 MG TABLET (FP) PO SCH (09:53)
[2018-02-18] MEDS: RANOLAZINE E.R. 500 MG TABLET (FP) PO SCH ×2 (09:54→21:26)
[2018-02-18] MEDS: POTASSIUM CHLORIDE TABS 10 MEQ TABLET.ER (FP) PO SCH (09:54)
[2018-02-18] MEDS: FOLIC ACID 1 MG TABLET (FP) PO SCH (09:54)
[2018-02-18] MEDS: CLOPIDOGREL BISULFATE 75 MG TABLET (FP) PO SCH (09:54)
[2018-02-18] MEDS: RANITIDINE HCL 150 MG TABLET (FP) PO SCH (09:55)
[2018-02-18] MEDS: FUROSEMIDE 20 MG TABLET (FP) PO SCH (10:04)
[2018-02-18] MEDS: ISOSORBIDE MONONITRATE 30 MG TAB.SR.24H (FP) PO SCH ×2 (10:04→21:26)
[2018-02-18] MEDS: VERAPAMIL HCL 240 MG E.R. TABLET (FP) PO SCH ×2 (10:04→22:19)
--- NOTE | 2018-02-18 10:50 | PN ---
Progress Note, Physician Chief Complaint: in bed still coughing and wheezing seen by pulm - continue same doses steroids d/w pt carotid US results bilateral >70% stenosis, needs angiogram and f/u with vascular surgery; pt said she will do it outpt also will f/u with cardiology - Current Medication List Current Medications: Active Medications Acetaminophen (Tylenol -) 650 mg PO Q6H PRN PRN Reason: FEVER Last Admin: 02/16/18 20:51 Dose: 650 mg Al Hydroxide/Mg Hydroxide (Mylanta Oral Suspension -) 30 ml PO Q6H PRN PRN Reason: DYSPEPSIA Albuterol Sulfate (Ventolin 0.083% Nebulizer Soln -) 1 amp NEB Q4H PRN PRN Reason: SHORT OF BREATH/WHEEZING Last Admin: 02/18/18 09:38 Dose: 1 amp Alprazolam (Xanax -) 0.25 mg PO HS PRN PRN Reason: ANXIETY Atorvastatin Calcium (Lipitor -) 80 mg PO HS [facility] Last Admin: 02/17/18 21:07 Dose: 80 mg Budesonide/Formoterol Fumarate (Symbicort 160/4.5mcg -) 2 puff IH BID [facility] Last Admin: 02/18/18 09:20 Dose: 2 puff Clopidogrel Bisulfate (Plavix -) 75 mg PO DAILY [facility] Last Admin: 02/18/18 09:54 Dose: 75 mg Docusate Sodium (Colace -) 300 mg PO HS [facility] Last Admin: 02/17/18 21:07 Dose: 300 mg Fluticasone Propionate (Flonase -) 1 spray NS BID [facility] Last Admin: 02/18/18 09:20 Dose: 1 spray Folic Acid (Folic Acid -) 1 mg PO DAILY [facility] Last Admin: 02/18/18 09:54 Dose: 1 mg Furosemide (Lasix -) 20 mg PO DAILY [facility] Last Admin: 02/18/18 10:04 Dose: 20 mg Levofloxacin (Levaquin 500 Mg Premixed Ivpb -) 500 mg in 100 mls @ 100 mls/hr IVPB DAILY [facility]; Protocol Last Admin: 02/18/18 09:55 Dose: 100 mls/hr Insulin Aspart (Novolog Vial Sliding Scale -) 1 vial SQ AM [facility]; Protocol Last Admin: 02/18/18 06:14 Dose: Not Given Isosorbide Mononitrate (Imdur -) 30 mg PO BID [facility] Last Admin: 02/18/18 10:04 Dose: 30 mg Methylprednisolone Sodium Succinate (Solu-Medrol -) 60 mg IVPB Q8H [facility] Last Admin: 02/18/18 05:12 Dose: 60 mg Montelukast Sodium (Singulair -) 10 mg PO HS [facility] Last Admin: 02/17/18 21:07 Dose: 10 mg Nitroglycerin (Nitrostat -) 0.4 mg SL TID PRN PRN Reason: FOR CHEST PAIN Pantoprazole Sodium (Protonix -) 40 mg PO DAILY [facility] Last Admin: 02/18/18 09:53 Dose: 40 mg Potassium Chloride (K-Dur -) 20 meq PO DAILY [facility] Last Admin: 02/18/18 09:54 Dose: 20 meq Ranitidine HCl (Zantac -) 150 mg PO DAILY [facility] Last Admin: 02/18/18 09:55 Dose: 150 mg Ranolazine (Ranexa -) 500 mg PO BID [facility] Last Admin: 02/18/18 09:54 Dose: 500 mg Tiotropium [place] (Spiriva -) 1 puff IH DAILY [facility] Last Admin: 02/18/18 09:52 Dose: 1 puff Verapamil HCl (Calan Sr -) 240 mg PO BID [facility] Last Admin: 02/18/18 10:04 Dose: 240 mg - Objective Vital Signs: Vital Signs Temperature 97 F L 02/18/18 08:57 Pulse Rate 72 02/18/18 10:08 Respiratory Rate 20 02/18/18 10:08 Blood Pressure 115/60 02/18/18 10:08 O2 Sat by Pulse Oximetry (%) 95 02/17/18 21:00 Constitutional: Yes: No Distress, Calm Eyes: Yes: Conjunctiva Clear HENT: Yes: Atraumatic Neck: Yes: Supple Cardiovascular: Yes: Regular Rate and Rhythm Respiratory: Yes: Wheezes Gastrointestinal: Yes: Soft. No: Distention, Tenderness Genitourinary: No: CVA Tenderness - Left, CVA Tenderness - Right Musculoskeletal: No: Joint Stiffness, Joint Swelling Extremities: No: Cold, Cool, Cyanosis Edema: No Integumentary: No: Rash, Venous Stasis Changes Neurological: Yes: WNL, Alert, Oriented ...Motor Strength: WNL Psychiatric: Yes: WNL, Alert, Oriented. No: Agitated, Suicidal Ideation Labs: CBC, BMP 02/15/18 05:55 02/15/18 05:55 INR, PTT INR 0.98 (0.82-1.09) 02/14/18 18:29 - ....Imaging Other: Report Reviewed Assessment/Plan Patient is a 62yo female with PMH of [place] s/p angioplasty, carotid endarterectomy , COPD admitted with acute URI/ pneumonia and COPD exacerbation all tests and consults reviewed and d/w pt IV steroids, nebs, IV antibiotics noted chest CT; carotid US c/w bilat stenosis > 70% - vascular sx f/u cardiology and pulmonary f/u will need also general surgeryvf/u outpt for hernias f/u labs gastric PFX while on steroids BGM check while on steroids prn xanax for insomnia and anxiety; falls PFX
--- NOTE | 2018-02-18 12:46 | PN ---
Progress Note, Physician History of Present Illness: pulmonary alert,still congested,sob,+cough - Current Medication List Current Medications: Active Medications Acetaminophen (Tylenol -) 650 mg PO Q6H PRN PRN Reason: FEVER Last Admin: 02/16/18 20:51 Dose: 650 mg Al Hydroxide/Mg Hydroxide (Mylanta Oral Suspension -) 30 ml PO Q6H PRN PRN Reason: DYSPEPSIA Albuterol Sulfate (Ventolin 0.083% Nebulizer Soln -) 1 amp NEB Q4H PRN PRN Reason: SHORT OF BREATH/WHEEZING Last Admin: 02/18/18 09:38 Dose: 1 amp Alprazolam (Xanax -) 0.25 mg PO HS PRN PRN Reason: ANXIETY Atorvastatin Calcium (Lipitor -) 80 mg PO HS [facility] Last Admin: 02/17/18 21:07 Dose: 80 mg Budesonide/Formoterol Fumarate (Symbicort 160/4.5mcg -) 2 puff IH BID [facility] Last Admin: 02/18/18 09:20 Dose: 2 puff Clopidogrel Bisulfate (Plavix -) 75 mg PO DAILY [facility] Last Admin: 02/18/18 09:54 Dose: 75 mg Docusate Sodium (Colace -) 300 mg PO HS [facility] Last Admin: 02/17/18 21:07 Dose: 300 mg Fluticasone Propionate (Flonase -) 1 spray NS BID [facility] Last Admin: 02/18/18 09:20 Dose: 1 spray Folic Acid (Folic Acid -) 1 mg PO DAILY [facility] Last Admin: 02/18/18 09:54 Dose: 1 mg Furosemide (Lasix -) 20 mg PO DAILY [facility] Last Admin: 02/18/18 10:04 Dose: 20 mg Levofloxacin (Levaquin 500 Mg Premixed Ivpb -) 500 mg in 100 mls @ 100 mls/hr IVPB DAILY [facility]; Protocol Last Admin: 02/18/18 09:55 Dose: 100 mls/hr Insulin Aspart (Novolog Vial Sliding Scale -) 1 vial SQ AM [facility]; Protocol Last Admin: 02/18/18 06:14 Dose: Not Given Isosorbide Mononitrate (Imdur -) 30 mg PO BID [facility] Last Admin: 02/18/18 10:04 Dose: 30 mg Methylprednisolone Sodium Succinate (Solu-Medrol -) 60 mg IVPB Q8H [facility] Last Admin: 02/18/18 05:12 Dose: 60 mg Montelukast Sodium (Singulair -) 10 mg PO HS [facility] Last Admin: 02/17/18 21:07 Dose: 10 mg Nitroglycerin (Nitrostat -) 0.4 mg SL TID PRN PRN Reason: FOR CHEST PAIN Pantoprazole Sodium (Protonix -) 40 mg PO DAILY [facility] Last Admin: 02/18/18 09:53 Dose: 40 mg Potassium Chloride (K-Dur -) 20 meq PO DAILY [facility] Last Admin: 02/18/18 09:54 Dose: 20 meq Ranitidine HCl (Zantac -) 150 mg PO DAILY [facility] Last Admin: 02/18/18 09:55 Dose: 150 mg Ranolazine (Ranexa -) 500 mg PO BID [facility] Last Admin: 02/18/18 09:54 Dose: 500 mg Tiotropium [place] (Spiriva -) 1 puff IH DAILY [facility] Last Admin: 02/18/18 09:52 Dose: 1 puff Verapamil HCl (Calan Sr -) 240 mg PO BID [facility] Last Admin: 02/18/18 10:04 Dose: 240 mg - Objective Vital Signs: Vital Signs Temperature 97 F L 02/18/18 08:57 Pulse Rate 72 02/18/18 10:08 Respiratory Rate 20 02/18/18 10:08 Blood Pressure 115/60 02/18/18 10:08 O2 Sat by Pulse Oximetry (%) 98 02/18/18 09:00 Constitutional: Yes: Well Nourished, Calm Eyes: Yes: WNL HENT: Yes: WNL Neck: Yes: WNL Cardiovascular: Yes: Regular Rate and Rhythm, S1, S2 Respiratory: Yes: Rhonchi (scattered marilee rhonchi) Gastrointestinal: Yes: Normal Bowel Sounds, Soft Extremities: Yes: WNL Edema: No Labs: CBC, BMP Problem List - Problems (1) ASHD (arteriosclerotic heart disease) Code(s): I25.10 - ATHSCL HEART DISEASE OF [place] CORONARY ARTERY W/O ANG PCTRS (2) Anemia Code(s): D64.9 - ANEMIA, UNSPECIFIED (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 transplanted heart: [place] heart Associated angina: without angina Qualified Code(s): I25.10 - Atherosclerotic heart disease of [place] coronary artery without angina pectoris (6) History of myocardial infarction Code(s): I25.2 - OLD MYOCARDIAL INFARCTION (7) Peripheral artery disease Code(s): I73.9 - PERIPHERAL VASCULAR DISEASE, UNSPECIFIED Assessment/Plan IMP DYSPNEA COPD EXACERBATION ASHD S/P [place] LV DIASTOLIC DYSFUNCTION HTN PVD GERD BARRETTS CAROTID ARTERY DISESE PLAN IV STEROIDS SAME DOSE INHALED BRONCHODILATORS O2 AB[address] LEÓN Problem List - Problems (1) ASHD (arteriosclerotic heart disease) Code(s): I25.10 - ATHSCL HEART DISEASE OF [place] CORONARY ARTERY W/O ANG PCTRS (2) Anemia Code(s): D64.9 - ANEMIA, UNSPECIFIED (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 transplanted heart: [place] heart Associated angina: without angina Qualified Code(s): I25.10 - Atherosclerotic heart disease of [place] coronary artery without angina pectoris (6) History of myocardial infarction Code(s): I25.2 - OLD MYOCARDIAL INFARCTION (7) Peripheral artery disease Code(s): I73.9 - PERIPHERAL VASCULAR DISEASE, UNSPECIFIED
--- NOTE | 2018-02-18 13:54 | PN ---
Progress Note, Physician History of Present Illness: Dyspnea, productive cough and wheeze persists. - Current Medication List Current Medications: Active Medications Acetaminophen (Tylenol -) 650 mg PO Q6H PRN PRN Reason: FEVER Last Admin: 02/16/18 20:51 Dose: 650 mg Al Hydroxide/Mg Hydroxide (Mylanta Oral Suspension -) 30 ml PO Q6H PRN PRN Reason: DYSPEPSIA Albuterol Sulfate (Ventolin 0.083% Nebulizer Soln -) 1 amp NEB Q4H PRN PRN Reason: SHORT OF BREATH/WHEEZING Last Admin: 02/18/18 09:38 Dose: 1 amp Alprazolam (Xanax -) 0.25 mg PO HS PRN PRN Reason: ANXIETY Atorvastatin [place]cium (Lipitor -) 80 mg PO HS [facility] Last Admin: 02/17/18 21:07 Dose: 80 mg Budesonide/Formoterol Fumarate (Symbicort 160/4.5mcg -) 2 puff IH BID [facility] Last Admin: 02/18/18 09:20 Dose: 2 puff Clopidogrel Bisulfate (Plavix -) 75 mg PO DAILY [facility] Last Admin: 02/18/18 09:54 Dose: 75 mg Docusate Sodium (Colace -) 300 mg PO HS [facility] Last Admin: 02/17/18 21:07 Dose: 300 mg Fluticasone Propionate (Flonase -) 1 spray NS BID [facility] Last Admin: 02/18/18 09:20 Dose: 1 spray Folic Acid (Folic Acid -) 1 mg PO DAILY [facility] Last Admin: 02/18/18 09:54 Dose: 1 mg Furosemide (Lasix -) 20 mg PO DAILY [facility] Last Admin: 02/18/18 10:04 Dose: 20 mg Levofloxacin (Levaquin 500 Mg Premixed Ivpb -) 500 mg in 100 mls @ 100 mls/hr IVPB DAILY [facility]; Protocol Last Admin: 02/18/18 09:55 Dose: 100 mls/hr Insulin Aspart (Novolog Vial Sliding Scale -) 1 vial SQ AM [facility]; Protocol Last Admin: 02/18/18 06:14 Dose: Not Given Isosorbide Mononitrate (Imdur -) 30 mg PO BID [facility] Last Admin: 02/18/18 10:04 Dose: 30 mg Methylprednisolone Sodium Succinate (Solu-Medrol -) 60 mg IVPB Q8H [facility] Last Admin: 02/18/18 12:56 Dose: 60 mg Montelukast Sodium (Singulair -) 10 mg PO HS [facility] Last Admin: 02/17/18 21:07 Dose: 10 mg Nitroglycerin (Nitrostat -) 0.4 mg SL TID PRN PRN Reason: FOR CHEST PAIN Pantoprazole Sodium (Protonix -) 40 mg PO DAILY [facility] Last Admin: 02/18/18 09:53 Dose: 40 mg Potassium Chloride (K-Dur -) 20 meq PO DAILY [facility] Last Admin: 02/18/18 09:54 Dose: 20 meq Ranitidine HCl (Zantac -) 150 mg PO DAILY [facility] Last Admin: 02/18/18 09:55 Dose: 150 mg Ranolazine (Ranexa -) 500 mg PO BID [facility] Last Admin: 02/18/18 09:54 Dose: 500 mg Tiotropium [place] (Spiriva -) 1 puff IH DAILY [facility] Last Admin: 02/18/18 09:52 Dose: 1 puff Verapamil HCl (Calan Sr -) 240 mg PO BID [facility] Last Admin: 02/18/18 10:04 Dose: 240 mg - Objective Vital Signs: Vital Signs Temperature 98 F 02/18/18 13:47 Pulse Rate 72 02/18/18 13:47 Respiratory Rate 17 02/18/18 13:47 Blood Pressure 134/61 02/18/18 13:47 O2 Sat by Pulse Oximetry (%) 98 02/18/18 09:00 Constitutional: Yes: No Distress, Calm Neck: Yes: Supple Cardiovascular: Yes: Regular Rate and Rhythm Respiratory: Yes: Regular, Cough, Diminished, On Nasal O2, SOB, Wheezes Gastrointestinal: Yes: Normal Bowel Sounds, Soft, Abdomen, Obese Edema: No Labs: CBC, BMP 02/15/18 05:55 02/15/18 05:55 INR, PTT INR 0.98 (0.82-1.09) 02/14/18 18:29 Problem List - Problems (1) H/O carotid endarterectomy Code(s): Z98.890 - OTHER SPECIFIED POSTPROCEDURAL STATES (2) COPD exacerbation Code(s): J44.1 - CHRONIC OBSTRUCTIVE PULMONARY DISEASE W (ACUTE) EXACERBATION (3) Coronary artery disease Code(s): I25.10 - ATHSCL HEART DISEASE OF [place] CORONARY ARTERY W/O ANG PCTRS Qualifiers: Coronary Disease-Associated Artery/Lesion type: [place] artery [place] vs. 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 AE COPD 2. CAD s/p [place], angina pectorus 3. Diastolic dysfunction 4. HTN/HCVD 5. Hyperlipidemia 6. Bilateral carotid artery disease post right CEA 7. Mesenteric ischemia post intervention 8. PAD post intervention P:1. BD, IV steroids with GI protection, empiric abx, Singulair, O2 as needed 2. Continue Verapamil SR 240 mg BID, Imdur 30 mg BID and Ranexa 500 mg BID 3. Continue Lipitor 80 mg QHSm Lasix 20 mg QD and Plavix 75 qd 4. Follow up with Dr. Luis Eduardo Manning, patient's fly tier upon discharge 5. CTA carotids per vascular input
[2018-02-18] MEDS ORDERED: TIOTROPIUM BROMIDE 2.5 MCG (SPIRIVA) RESPIMAT INHALER IH SCH (18:00)
[2018-02-18] MEDS: MONTELUKAST NA 10 MG TABLET PO SCH (21:26)
[2018-02-18] MEDS: DOCUSATE SODIUM 100 MG CAPSULE (FP) PO SCH (21:26)
[2018-02-18] MEDS: ATORVASTATIN CA 80 MG TABLET (FP) PO SCH (21:26)
[2018-02-18] MEDS: ACETAMINOPHEN 325 MG TABLET (FP) PO PRN (21:30)
[2018-02-19] MEDS: methylPREDNISolone NA SUCC 125 MG/2 ML VIAL IVPB SCH ×2 (05:59→13:27)
[2018-02-19] MEDS: INSULIN SLIDING SCALE (NOVOLOG) 1 VIAL SQ SCH (06:11)
[2018-02-19] MEDS: ALBUTEROL SO4 0.083% IH SOL 2.5 MG/3 ML VIAL.NEB. NEB PRN ×4 (06:50→20:30)
--- NOTE | 2018-02-19 09:28 | PN ---
Progress Note, Physician Chief Complaint: still coughing but slightly less, no CP/SOB afebrile; brings up yellow sputum feels tired but able to get OOB ambulates to the bathroom - Current Medication List Current Medications: Active Medications Acetaminophen (Tylenol -) 650 mg PO Q6H PRN PRN Reason: FEVER Last Admin: 02/18/18 21:30 Dose: 650 mg Al Hydroxide/Mg Hydroxide (Mylanta Oral Suspension -) 30 ml PO Q6H PRN PRN Reason: DYSPEPSIA Albuterol Sulfate (Ventolin 0.083% Nebulizer Soln -) 1 amp NEB Q4H PRN PRN Reason: SHORT OF BREATH/WHEEZING Last Admin: 02/19/18 06:50 Dose: 1 amp Alprazolam (Xanax -) 0.25 mg PO HS PRN PRN Reason: ANXIETY Atorvastatin Calcium (Lipitor -) 80 mg PO HS [facility] Last Admin: 02/18/18 21:26 Dose: 80 mg Budesonide/Formoterol Fumarate (Symbicort 160/4.5mcg -) 2 puff IH BID [facility] Last Admin: 02/18/18 21:26 Dose: 2 puff Clopidogrel Bisulfate (Plavix -) 75 mg PO DAILY [facility] Last Admin: 02/18/18 09:54 Dose: 75 mg Docusate Sodium (Colace -) 300 mg PO HS [facility] Last Admin: 02/18/18 21:26 Dose: 300 mg Fluticasone Propionate (Flonase -) 1 spray NS BID [facility] Last Admin: 02/18/18 21:26 Dose: 1 spray Folic Acid (Folic Acid -) 1 mg PO DAILY [facility] Last Admin: 02/18/18 09:54 Dose: 1 mg Furosemide (Lasix -) 20 mg PO DAILY [facility] Last Admin: 02/18/18 10:04 Dose: 20 mg Levofloxacin (Levaquin 500 Mg Premixed Ivpb -) 500 mg in 100 mls @ 100 mls/hr IVPB DAILY [facility]; Protocol Last Admin: 02/18/18 09:55 Dose: 100 mls/hr Insulin Aspart (Novolog Vial Sliding Scale -) 1 vial SQ AM [facility]; Protocol Last Admin: 02/19/18 06:11 Dose: Not Given Isosorbide Mononitrate (Imdur -) 30 mg PO BID [facility] Last Admin: 02/18/18 21:26 Dose: 30 mg Methylprednisolone Sodium Succinate (Solu-Medrol -) 60 mg IVPB Q8H [facility] Last Admin: 02/19/18 05:59 Dose: 60 mg Montelukast Sodium (Singulair -) 10 mg PO HS [facility] Last Admin: 02/18/18 21:26 Dose: 10 mg Nitroglycerin (Nitrostat -) 0.4 mg SL TID PRN PRN Reason: FOR CHEST PAIN Pantoprazole Sodium (Protonix -) 40 mg PO DAILY [facility] Last Admin: 02/18/18 09:53 Dose: 40 mg Potassium Chloride (K-Dur -) 20 meq PO DAILY [facility] Last Admin: 02/18/18 09:54 Dose: 20 meq Ranitidine HCl (Zantac -) 150 mg PO DAILY [facility] Last Admin: 02/18/18 09:55 Dose: 150 mg Ranolazine (Ranexa -) 500 mg PO BID [facility] Last Admin: 02/18/18 21:26 Dose: 500 mg Tiotropium [place] (Spiriva Respimat) 2 puff IH DAILY [facility] Verapamil HCl (Calan Sr -) 240 mg PO BID [facility] Last Admin: 02/18/18 22:19 Dose: 240 mg - Objective Vital Signs: Vital Signs Temperature 98.1 F 02/19/18 06:00 Pulse Rate 73 02/19/18 06:00 Respiratory Rate 20 02/19/18 06:00 Blood Pressure 106/57 02/19/18 06:00 O2 Sat by Pulse Oximetry (%) 98 02/18/18 21:00 Constitutional: Yes: No Distress, Calm Eyes: Yes: Conjunctiva Clear HENT: Yes: Atraumatic Neck: Yes: Supple Cardiovascular: Yes: Regular Rate and Rhythm Respiratory: Yes: Wheezes Gastrointestinal: Yes: Soft. No: Distention Genitourinary: No: CVA Tenderness - Left, CVA Tenderness - Right Musculoskeletal: No: Joint Stiffness, Joint Swelling Extremities: No: Cold, Cool, Cyanosis Edema: No Integumentary: No: Rash, Venous Stasis Changes Neurological: Yes: WNL, Alert, Oriented ...Motor Strength: WNL Psychiatric: Yes: WNL, Alert, Oriented. No: Agitated, Suicidal Ideation Labs: CBC, BMP 02/15/18 05:55 02/15/18 05:55 INR, PTT INR 0.98 (0.82-1.09) 02/14/18 18:29 - ....Imaging Other: Report Reviewed Assessment/Plan Patient is a 62yo female with PMH of [place] s/p angioplasty, carotid endarterectomy , COPD admitted with acute URI/ pneumonia and COPD exacerbation all tests and consults reviewed and d/w pt taper slowly IV steroids, continue nebs, IV antibiotics noted chest CT; carotid US c/w bilat stenosis > 70% - vascular sx f/u cardiology and pulmonary f/u will need also general surgery f/u outpt for hernias f/u labs gastric PFX while on steroids BGM check while on steroids prn xanax for insomnia and anxiety; falls PFX
--- NOTE | 2018-02-19 10:09 | PN ---
Progress Note, Physician History of Present Illness: PULMONARY ALERT,SLOWLY IMPROVING,LESS CONGESTED,+COUGH - Current Medication List Current Medications: Active Medications Acetaminophen (Tylenol -) 650 mg PO Q6H PRN PRN Reason: FEVER Last Admin: 02/18/18 21:30 Dose: 650 mg Al Hydroxide/Mg Hydroxide (Mylanta Oral Suspension -) 30 ml PO Q6H PRN PRN Reason: DYSPEPSIA Albuterol Sulfate (Ventolin 0.083% Nebulizer Soln -) 1 amp NEB Q4H PRN PRN Reason: SHORT OF BREATH/WHEEZING Last Admin: 02/19/18 06:50 Dose: 1 amp Alprazolam (Xanax -) 0.25 mg PO HS PRN PRN Reason: ANXIETY Atorvastatin Calcium (Lipitor -) 80 mg PO HS [facility] Last Admin: 02/18/18 21:26 Dose: 80 mg Budesonide/Formoterol Fumarate (Symbicort 160/4.5mcg -) 2 puff IH BID [facility] Last Admin: 02/18/18 21:26 Dose: 2 puff Clopidogrel Bisulfate (Plavix -) 75 mg PO DAILY [facility] Last Admin: 02/18/18 09:54 Dose: 75 mg Docusate Sodium (Colace -) 300 mg PO HS [facility] Last Admin: 02/18/18 21:26 Dose: 300 mg Fluticasone Propionate (Flonase -) 1 spray NS BID [facility] Last Admin: 02/18/18 21:26 Dose: 1 spray Folic Acid (Folic Acid -) 1 mg PO DAILY [facility] Last Admin: 02/18/18 09:54 Dose: 1 mg Furosemide (Lasix -) 20 mg PO DAILY [facility] Last Admin: 02/18/18 10:04 Dose: 20 mg Levofloxacin (Levaquin 500 Mg Premixed Ivpb -) 500 mg in 100 mls @ 100 mls/hr IVPB DAILY [facility]; Protocol Last Admin: 02/18/18 09:55 Dose: 100 mls/hr Insulin Aspart (Novolog Vial Sliding Scale -) 1 vial SQ AM [facility]; Protocol Last Admin: 02/19/18 06:11 Dose: Not Given Isosorbide Mononitrate (Imdur -) 30 mg PO BID [facility] Last Admin: 02/18/18 21:26 Dose: 30 mg Methylprednisolone Sodium Succinate (Solu-Medrol -) 60 mg IVPB Q8H [facility] Last Admin: 02/19/18 05:59 Dose: 60 mg Montelukast Sodium (Singulair -) 10 mg PO HS [facility] Last Admin: 02/18/18 21:26 Dose: 10 mg Nitroglycerin (Nitrostat -) 0.4 mg SL TID PRN PRN Reason: FOR CHEST PAIN Pantoprazole Sodium (Protonix -) 40 mg PO DAILY [facility] Last Admin: 02/18/18 09:53 Dose: 40 mg Potassium Chloride (K-Dur -) 20 meq PO DAILY [facility] Last Admin: 02/18/18 09:54 Dose: 20 meq Ranitidine HCl (Zantac -) 150 mg PO DAILY [facility] Last Admin: 02/18/18 09:55 Dose: 150 mg Ranolazine (Ranexa -) 500 mg PO BID [facility] Last Admin: 02/18/18 21:26 Dose: 500 mg Tiotropium [place] (Spiriva Respimat) 2 puff IH DAILY [facility] Verapamil HCl (Calan Sr -) 240 mg PO BID [facility] Last Admin: 02/18/18 22:19 Dose: 240 mg - Objective Vital Signs: Vital Signs Temperature 98.1 F 02/19/18 06:00 Pulse Rate 73 02/19/18 06:00 Respiratory Rate 20 02/19/18 06:00 Blood Pressure 106/57 02/19/18 06:00 O2 Sat by Pulse Oximetry (%) 98 02/18/18 21:00 Constitutional: Yes: Well Nourished, Calm Eyes: Yes: WNL HENT: Yes: WNL Neck: Yes: WNL Cardiovascular: Yes: Regular Rate and Rhythm, S1, S2 Respiratory: Yes: Rhonchi (BILATERAL WHEEZES AND RHONCHI), Wheezes Gastrointestinal: Yes: Normal Bowel Sounds, Soft Extremities: Yes: WNL Edema: No Labs: CBC, BMP Problem List - Problems (1) ASHD (arteriosclerotic heart disease) Code(s): I25.10 - ATHSCL HEART DISEASE OF [place] CORONARY ARTERY W/O ANG PCTRS (2) Anemia Code(s): D64.9 - ANEMIA, UNSPECIFIED (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 transplanted heart: [place] heart Associated angina: without angina Qualified Code(s): I25.10 - Atherosclerotic heart disease of [place] coronary artery without angina pectoris (6) History of myocardial infarction Code(s): I25.2 - OLD MYOCARDIAL INFARCTION (7) Peripheral artery disease Code(s): I73.9 - PERIPHERAL VASCULAR DISEASE, UNSPECIFIED Assessment/Plan IMP DYSPNEA COPD EXACERBATION ASHD S/P TN LV DIASTOLIC DYSFUNCTION HTN PVD GERD BARRETTS CAROTID ARTERY DISESE PLAN IV STEROIDS SAME DOSE INHALED BRONCHODILATORS O2 ABX DR LEÓN Problem List - Problems (1) ASHD (arteriosclerotic heart disease) Code(s): I25.10 - ATHSCL HEART DISEASE OF [place] CORONARY ARTERY W/O ANG PCTRS (2) Anemia Code(s): D64.9 - ANEMIA, UNSPECIFIED (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 transplanted heart: [place] heart Associated angina: without angina Qualified Code(s): I25.10 - Atherosclerotic heart disease of [place] coronary artery without angina pectoris (6) History of myocardial infarction Code(s): I25.2 - OLD MYOCARDIAL INFARCTION (7) Peripheral artery disease Code(s): I73.9 - PERIPHERAL VASCULAR DISEASE, UNSPECIFIED
[2018-02-19] MEDS ORDERED: PT OWN MED DRAWER 7, Y5N ONE (10:53)
[2018-02-19] MEDS: BUDESONIDE/FORMETEROL FUMARATE 160/4.5 mcg INHALER IH SCH ×2 (10:54→21:07)
[2018-02-19] MEDS: PANTOPRAZOLE 40 MG TABLET (FP) PO SCH (10:55)
[2018-02-19] MEDS: FLUTICASONE PROP 0.05% 16 GM NASAL SPRAY NS SCH ×2 (10:55→21:07)
[2018-02-19] MEDS: CLOPIDOGREL BISULFATE 75 MG TABLET (FP) PO SCH (10:56)
[2018-02-19] MEDS: RANITIDINE HCL 150 MG TABLET (FP) PO SCH (10:56)
[2018-02-19] MEDS: FUROSEMIDE 20 MG TABLET (FP) PO SCH (10:56)
[2018-02-19] MEDS: RANOLAZINE E.R. 500 MG TABLET (FP) PO SCH ×2 (10:56→21:07)
[2018-02-19] MEDS: ISOSORBIDE MONONITRATE 30 MG TAB.SR.24H (FP) PO SCH ×2 (10:56→21:06)
[2018-02-19] MEDS: POTASSIUM CHLORIDE TABS 10 MEQ TABLET.ER (FP) PO SCH (10:56)
[2018-02-19] MEDS: FOLIC ACID 1 MG TABLET (FP) PO SCH (10:56)
[2018-02-19] MEDS: VERAPAMIL HCL 240 MG E.R. TABLET (FP) PO SCH ×2 (10:57→21:06)
--- NOTE | 2018-02-19 12:02 | PN ---
Progress Note, Physician History of Present Illness: Dyspnea, productive cough and wheeze slowly improving. - Current Medication List Current Medications: Active Medications Acetaminophen (Tylenol -) 650 mg PO Q6H PRN PRN Reason: FEVER Last Admin: 02/18/18 21:30 Dose: 650 mg Al Hydroxide/Mg Hydroxide (Mylanta Oral Suspension -) 30 ml PO Q6H PRN PRN Reason: DYSPEPSIA Albuterol Sulfate (Ventolin 0.083% Nebulizer Soln -) 1 amp NEB Q4H PRN PRN Reason: SHORT OF BREATH/WHEEZING Last Admin: 02/19/18 11:22 Dose: 1 amp Alprazolam (Xanax -) 0.25 mg PO HS PRN PRN Reason: ANXIETY Atorvastatin Calcium (Lipitor -) 80 mg PO HS [facility] Last Admin: 02/18/18 21:26 Dose: 80 mg Budesonide/Formoterol Fumarate (Symbicort 160/4.5mcg -) 2 puff IH BID [facility] Last Admin: 02/19/18 10:54 Dose: 2 puff Clopidogrel Bisulfate (Plavix -) 75 mg PO DAILY [facility] Last Admin: 02/19/18 10:56 Dose: 75 mg Docusate Sodium (Colace -) 300 mg PO HS [facility] Last Admin: 02/18/18 21:26 Dose: 300 mg Fluticasone Propionate (Flonase -) 1 spray NS BID [facility] Last Admin: 02/19/18 10:55 Dose: 1 spray Folic Acid (Folic Acid -) 1 mg PO DAILY [facility] Last Admin: 02/19/18 10:56 Dose: 1 mg Furosemide (Lasix -) 20 mg PO DAILY [facility] Last Admin: 02/19/18 10:56 Dose: 20 mg Levofloxacin (Levaquin 500 Mg Premixed Ivpb -) 500 mg in 100 mls @ 100 mls/hr IVPB DAILY [facility]; Protocol Last Admin: 02/19/18 10:54 Dose: 100 mls/hr Insulin Aspart (Novolog Vial Sliding Scale -) 1 vial SQ AM [facility]; Protocol Last Admin: 02/19/18 06:11 Dose: Not Given Isosorbide Mononitrate (Imdur -) 30 mg PO BID [facility] Last Admin: 02/19/18 10:56 Dose: 30 mg Methylprednisolone Sodium Succinate (Solu-Medrol -) 60 mg IVPB Q8H [facility] Last Admin: 02/19/18 05:59 Dose: 60 mg Montelukast Sodium (Singulair -) 10 mg PO HS [facility] Last Admin: 02/18/18 21:26 Dose: 10 mg Nitroglycerin (Nitrostat -) 0.4 mg SL TID PRN PRN Reason: FOR CHEST PAIN Pantoprazole Sodium (Protonix -) 40 mg PO DAILY [facility] Last Admin: 02/19/18 10:55 Dose: 40 mg Potassium Chloride (K-Dur -) 20 meq PO DAILY [facility] Last Admin: 02/19/18 10:56 Dose: 20 meq Ranitidine HCl (Zantac -) 150 mg PO DAILY [facility] Last Admin: 02/19/18 10:56 Dose: 150 mg Ranolazine (Ranexa -) 500 mg PO BID [facility] Last Admin: 02/19/18 10:56 Dose: 500 mg Tiotropium [place] (Spiriva Respimat) 2 puff IH DAILY [facility] Verapamil HCl (Calan Sr -) 240 mg PO BID [facility] Last Admin: 02/19/18 10:57 Dose: 240 mg - Objective Vital Signs: Vital Signs Temperature 98.1 F 02/19/18 06:00 Pulse Rate 73 02/19/18 06:00 Respiratory Rate 20 02/19/18 06:00 Blood Pressure 106/57 02/19/18 06:00 O2 Sat by Pulse Oximetry (%) 98 02/18/18 21:00 Constitutional: Yes: No Distress, Calm Neck: Yes: Supple Cardiovascular: Yes: Regular Rate and Rhythm Respiratory: Yes: Regular, Diminished, On Nasal O2 Gastrointestinal: Yes: Normal Bowel Sounds, Soft, Abdomen, Obese Edema: No Labs: CBC, BMP 02/15/18 05:55 02/15/18 05:55 INR, PTT INR 0.98 (0.82-1.09) 02/14/18 18:29 Problem List - Problems (1) H/O carotid endarterectomy Code(s): Z98.890 - OTHER SPECIFIED POSTPROCEDURAL STATES (2) COPD exacerbation Code(s): J44.1 - CHRONIC OBSTRUCTIVE PULMONARY DISEASE W (ACUTE) EXACERBATION (3) Coronary artery disease Code(s): I25.10 - ATHSCL HEART DISEASE OF [place] CORONARY ARTERY W/O ANG PCTRS Qualifiers: Coronary Disease-Associated Artery/Lesion type: [place] artery [place] vs. 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 AE COPD 2. CAD s/p PR, angina pectorus 3. Diastolic dysfunction 4. HTN/HCVD 5. Hyperlipidemia 6. Bilateral carotid artery disease post right CEA 7. Mesenteric ischemia post intervention 8. PAD post intervention P:1. BD, IV steroids with GI protection, empiric abx, Singulair, O2 as needed 2. Continue Verapamil SR 240 mg BID, Imdur 30 mg BID and Ranexa 500 mg BID 3. Continue Lipitor 80 mg QHS, Lasix 20 mg QD and Plavix 75 qd 4. Follow up with Dr. Luis Eduardo Manning, patient's manager of hospital upon discharge 5. CTA carotids per vascular input
[2018-02-19] MEDS: TIOTROPIUM BROMIDE 2.5 MCG (SPIRIVA) RESPIMAT INHALER IH SCH (13:25)
[2018-02-19] MEDS ORDERED: guaiFENesin/D-METHORPHAN HB 10 ML UNIT-DOSE CUPS PO PRN (13:45)
[2018-02-19] MEDS ORDERED: methylPREDNISolone NA SUCC 40 MG/1 ML VIAL IVPB SCH (21:00)
[2018-02-19] MEDS: methylPREDNISolone NA SUCC 40 MG/1 ML VIAL IVPB SCH (21:06)
[2018-02-19] MEDS: MONTELUKAST NA 10 MG TABLET PO SCH (21:07)
[2018-02-19] MEDS: ATORVASTATIN CA 80 MG TABLET (FP) PO SCH (21:07)
[2018-02-19] MEDS: ACETAMINOPHEN 325 MG TABLET (FP) PO PRN (21:19)
[2018-02-19] MEDS: DOCUSATE SODIUM 100 MG CAPSULE (FP) PO SCH (21:19)
[2018-02-20] MEDS: methylPREDNISolone NA SUCC 40 MG/1 ML VIAL IVPB SCH ×3 (05:05→21:10)
[2018-02-20] MEDS: ALBUTEROL SO4 0.083% IH SOL 2.5 MG/3 ML VIAL.NEB. NEB PRN ×4 (05:38→20:40)
[2018-02-20] MEDS: INSULIN SLIDING SCALE (NOVOLOG) 1 VIAL SQ SCH (06:06)
[2018-02-20 07:24] LABS: BASO % 0.1 % (0-2.0); HEMATOCRIT 37.9 % (32.4-45.2); HEMOGLOBIN 13.1 GM/dL (10.7-15.3); LYMPH % 6.7 % (8-40); MCH 30.3 pg (25.7-33.7); MCHC 34.4 g/dl (32.0-36.0); MEAN CELL VOLUME 87.8 fl (80-96); MEAN PLT VOLUME 6.8 fl (7.5-11.1); NEUT % 90.2 % (42.8-82.8); PLATELET COUNT 275 K/MM3 (134-434); RBC 4.32 M/mm3 (3.60-5.2); RDW 14.5 % (11.6-15.6); WHITE BLOOD COUNT 8.5 K/mm3 (4.0-10.0)
[2018-02-20 07:54] LABS: ALK PHOS 66 U/L (45-117); ANION GAP 5 (8-16); BILIRUBIN,TOTAL 0.3 mg/dL (0.2-1.0); BLOOD UREA NITROGEN 23 mg/dL (7-18); CALCIUM 8.5 mg/dL (8.5-10.1); CHLORIDE 97 mmol/L (98-107); CO2 34 mmol/L (21-32); CREATININE 0.8 mg/dL (0.55-1.02); GLUCOSE,RANDOM 125 mg/dL (74-106); POTASSIUM 4.6 mmol/L (3.5-5.1); SGOT/AST 10 U/L (15-37); SGPT/ALT 19 U/L (12-78); SODIUM 136 mmol/L (136-145); TOT PROT 5.7 g/dl (6.4-8.2)
[2018-02-20] MEDS ORDERED: PT OWN MED DRAWER 7, Y5N ONE ×3 (09:08→12:16)
[2018-02-20] MEDS: CLOPIDOGREL BISULFATE 75 MG TABLET (FP) PO SCH (09:10)
[2018-02-20] MEDS: FOLIC ACID 1 MG TABLET (FP) PO SCH (09:10)
[2018-02-20] MEDS: ISOSORBIDE MONONITRATE 30 MG TAB.SR.24H (FP) PO SCH ×2 (09:10→21:10)
[2018-02-20] MEDS: RANOLAZINE E.R. 500 MG TABLET (FP) PO SCH ×2 (09:10→21:10)
[2018-02-20] MEDS: FUROSEMIDE 20 MG TABLET (FP) PO SCH (09:10)
[2018-02-20] MEDS: RANITIDINE HCL 150 MG TABLET (FP) PO SCH (09:10)
[2018-02-20] MEDS: BUDESONIDE/FORMETEROL FUMARATE 160/4.5 mcg INHALER IH SCH ×2 (09:12→21:11)
[2018-02-20] MEDS: TIOTROPIUM BROMIDE 2.5 MCG (SPIRIVA) RESPIMAT INHALER IH SCH ×2 (09:13→12:20)
[2018-02-20] MEDS: PANTOPRAZOLE 40 MG TABLET (FP) PO SCH (09:13)
[2018-02-20] MEDS: FLUTICASONE PROP 0.05% 16 GM NASAL SPRAY NS SCH ×2 (09:16→21:11)
[2018-02-20] MEDS ORDERED: POTASSIUM CHLORIDE ORAL LIQUID 20 MEQ/15 ML PO SCH (10:00)
--- NOTE | 2018-02-20 10:02 | PN ---
Progress Note, Physician Chief Complaint: in bed still coughing no CP, d/w pulm dr Jenkins consider adding zithromax outpt chronic tx for COPD chronic bronchitis - Current Medication List Current Medications: Active Medications Acetaminophen (Tylenol -) 650 mg PO Q6H PRN PRN Reason: FEVER Last Admin: 02/19/18 21:19 Dose: 650 mg Al Hydroxide/Mg Hydroxide (Mylanta Oral Suspension -) 30 ml PO Q6H PRN PRN Reason: DYSPEPSIA Albuterol Sulfate (Ventolin 0.083% Nebulizer Soln -) 1 amp NEB Q4H PRN PRN Reason: SHORT OF BREATH/WHEEZING Last Admin: 02/20/18 05:38 Dose: 1 amp Alprazolam (Xanax -) 0.25 mg PO HS PRN PRN Reason: ANXIETY Atorvastatin Calcium (Lipitor -) 80 mg PO HS [facility] Last Admin: 02/19/18 21:07 Dose: 80 mg Budesonide/Formoterol Fumarate (Symbicort 160/4.5mcg -) 2 puff IH BID [facility] Last Admin: 02/20/18 09:12 Dose: 2 puff Clopidogrel Bisulfate (Plavix -) 75 mg PO DAILY [facility] Last Admin: 02/20/18 09:10 Dose: 75 mg Docusate Sodium (Colace -) 300 mg PO HS [facility] Last Admin: 02/19/18 21:19 Dose: 300 mg Fluticasone Propionate (Flonase -) 1 spray NS BID [facility] Last Admin: 02/20/18 09:16 Dose: 1 spray Folic Acid (Folic Acid -) 1 mg PO DAILY [facility] Last Admin: 02/20/18 09:10 Dose: 1 mg Furosemide (Lasix -) 20 mg PO DAILY [facility] Last Admin: 02/20/18 09:10 Dose: 20 mg Guaifenesin (Robitussin Dm -) 10 ml PO Q6H PRN PRN Reason: COUGH Levofloxacin (Levaquin 500 Mg Premixed Ivpb -) 500 mg in 100 mls @ 100 mls/hr IVPB DAILY [facility]; Protocol Last Admin: 02/20/18 09:15 Dose: 100 mls/hr Insulin Aspart (Novolog Vial Sliding Scale -) 1 vial SQ AM [facility]; Protocol Last Admin: 02/20/18 06:06 Dose: Not Given Isosorbide Mononitrate (Imdur -) 30 mg PO BID [facility] Last Admin: 02/20/18 09:10 Dose: 30 mg Methylprednisolone Sodium Succinate (Solu-Medrol -) 40 mg IVPB Q8H [facility] Last Admin: 02/20/18 05:05 Dose: 40 mg Montelukast Sodium (Singulair -) 10 mg PO HS [facility] Last Admin: 02/19/18 21:07 Dose: 10 mg Nitroglycerin (Nitrostat -) 0.4 mg SL TID PRN PRN Reason: FOR CHEST PAIN Pantoprazole Sodium (Protonix -) 40 mg PO DAILY [facility] Last Admin: 02/20/18 09:13 Dose: 40 mg Potassium Chloride (Potassium Chloride Oral Liquid) 20 meq PO DAILY [facility] Last Admin: 02/20/18 09:10 Dose: 20 meq Ranitidine HCl (Zantac -) 150 mg PO DAILY [facility] Last Admin: 02/20/18 09:10 Dose: 150 mg Ranolazine (Ranexa -) 500 mg PO BID [facility] Last Admin: 02/20/18 09:10 Dose: 500 mg Tiotropium [place] (Spiriva Respimat) 2 puff IH DAILY [facility] Last Admin: 02/20/18 09:13 Dose: 2 puff Verapamil HCl (Calan Sr -) 240 mg PO BID [facility] Last Admin: 02/19/18 21:06 Dose: 240 mg - Objective Vital Signs: Vital Signs Temperature 97.6 F 02/20/18 09:00 Pulse Rate 77 02/20/18 09:00 Respiratory Rate 20 02/20/18 09:00 Blood Pressure 127/51 02/20/18 09:00 O2 Sat by Pulse Oximetry (%) 98 02/19/18 21:00 Constitutional: Yes: No Distress, Calm Eyes: Yes: Conjunctiva Clear HENT: Yes: Atraumatic Neck: Yes: Supple Cardiovascular: Yes: Regular Rate and Rhythm Respiratory: Yes: Wheezes Gastrointestinal: Yes: Soft. No: Distention Genitourinary: No: CVA Tenderness - Left, CVA Tenderness - Right Musculoskeletal: No: Joint Stiffness, Joint Swelling Extremities: No: Cold, Cool, Cyanosis Edema: No Integumentary: No: Rash, Venous Stasis Changes Neurological: Yes: WNL, Alert, Oriented ...Motor Strength: WNL Psychiatric: Yes: WNL, Alert, Oriented. No: Agitated, Suicidal Ideation Labs: CBC, BMP 02/20/18 06:00 02/20/18 06:00 INR, PTT INR 0.98 (0.82-1.09) 02/14/18 18:29 - ....Imaging Other: Report Reviewed Assessment/Plan Patient is a 62yo female with PMH of [place] s/p angioplasty, carotid endarterectomy , COPD admitted with acute URI/ pneumonia and COPD exacerbation taper slowly IV steroids, continue nebs, IV antibiotics noted chest CT; will need pulm f/u after DC carotid US c/w bilat stenosis > 70% - vascular sx f/u cardiology and pulmonary f/u will need also general surgery f/u outpt for hernias f/u labs gastric PFX while on steroids BGM check while on steroids prn xanax for insomnia and anxiety; falls PFX
--- NOTE | 2018-02-20 10:07 | PN ---
Progress Note, Physician History of Present Illness: PULMONARY ALERT,STILL DYSPNEIC,+CONGESTION - Current Medication List Current Medications: Active Medications Acetaminophen (Tylenol -) 650 mg PO Q6H PRN PRN Reason: FEVER Last Admin: 02/19/18 21:19 Dose: 650 mg Al Hydroxide/Mg Hydroxide (Mylanta Oral Suspension -) 30 ml PO Q6H PRN PRN Reason: DYSPEPSIA Albuterol Sulfate (Ventolin 0.083% Nebulizer Soln -) 1 amp NEB Q4H PRN PRN Reason: SHORT OF BREATH/WHEEZING Last Admin: 02/20/18 05:38 Dose: 1 amp Alprazolam (Xanax -) 0.25 mg PO HS PRN PRN Reason: ANXIETY Atorvastatin Calcium (Lipitor -) 80 mg PO HS [facility] Last Admin: 02/19/18 21:07 Dose: 80 mg Budesonide/Formoterol Fumarate (Symbicort 160/4.5mcg -) 2 puff IH BID [facility] Last Admin: 02/20/18 09:12 Dose: 2 puff Clopidogrel Bisulfate (Plavix -) 75 mg PO DAILY [facility] Last Admin: 02/20/18 09:10 Dose: 75 mg Docusate Sodium (Colace -) 300 mg PO HS [facility] Last Admin: 02/19/18 21:19 Dose: 300 mg Fluticasone Propionate (Flonase -) 1 spray NS BID [facility] Last Admin: 02/20/18 09:16 Dose: 1 spray Folic Acid (Folic Acid -) 1 mg PO DAILY [facility] Last Admin: 02/20/18 09:10 Dose: 1 mg Furosemide (Lasix -) 20 mg PO DAILY [facility] Last Admin: 02/20/18 09:10 Dose: 20 mg Guaifenesin (Robitussin Dm -) 10 ml PO Q6H PRN PRN Reason: COUGH Levofloxacin (Levaquin 500 Mg Premixed Ivpb -) 500 mg in 100 mls @ 100 mls/hr IVPB DAILY [facility]; Protocol Last Admin: 02/20/18 09:15 Dose: 100 mls/hr Insulin Aspart (Novolog Vial Sliding Scale -) 1 vial SQ AM [facility]; Protocol Last Admin: 02/20/18 06:06 Dose: Not Given Isosorbide Mononitrate (Imdur -) 30 mg PO BID [facility] Last Admin: 02/20/18 09:10 Dose: 30 mg Methylprednisolone Sodium Succinate (Solu-Medrol -) 40 mg IVPB Q8H [facility] Last Admin: 02/20/18 05:05 Dose: 40 mg Montelukast Sodium (Singulair -) 10 mg PO HS [facility] Last Admin: 02/19/18 21:07 Dose: 10 mg Nitroglycerin (Nitrostat -) 0.4 mg SL TID PRN PRN Reason: FOR CHEST PAIN Pantoprazole Sodium (Protonix -) 40 mg PO DAILY [facility] Last Admin: 02/20/18 09:13 Dose: 40 mg Potassium Chloride (Potassium Chloride Oral Liquid) 20 meq PO DAILY [facility] Last Admin: 02/20/18 09:10 Dose: 20 meq Ranitidine HCl (Zantac -) 150 mg PO DAILY [facility] Last Admin: 02/20/18 09:10 Dose: 150 mg Ranolazine (Ranexa -) 500 mg PO BID [facility] Last Admin: 02/20/18 09:10 Dose: 500 mg Tiotropium [place] (Spiriva Respimat) 2 puff IH DAILY [facility] Last Admin: 02/20/18 09:13 Dose: 2 puff Verapamil HCl (Calan Sr -) 240 mg PO BID [facility] Last Admin: 02/19/18 21:06 Dose: 240 mg - Objective Vital Signs: Vital Signs Temperature 97.6 F 02/20/18 09:00 Pulse Rate 77 02/20/18 09:00 Respiratory Rate 20 02/20/18 09:00 Blood Pressure 127/51 02/20/18 09:00 O2 Sat by Pulse Oximetry (%) 98 02/19/18 21:00 Constitutional: Yes: Well Nourished, Calm Eyes: Yes: WNL HENT: Yes: WNL Neck: Yes: WNL Cardiovascular: Yes: Regular Rate and Rhythm, S1, S2 Respiratory: Yes: Rhonchi (SCATTERED RHONCHI) Gastrointestinal: Yes: Normal Bowel Sounds, Soft Extremities: Yes: WNL Edema: No Labs: CBC, BMP 02/20/18 06:00 02/20/18 06:00 INR, PTT INR 0.98 (0.82-1.09) 02/14/18 18:29 Problem List - Problems (1) ASHD (arteriosclerotic heart disease) Code(s): I25.10 - ATHSCL HEART DISEASE OF [place] CORONARY ARTERY W/O ANG PCTRS (2) Anemia Code(s): D64.9 - ANEMIA, UNSPECIFIED (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 transplanted heart: [place] heart Associated angina: without angina Qualified Code(s): I25.10 - Atherosclerotic heart disease of [place] coronary artery without angina pectoris (6) History of myocardial infarction Code(s): I25.2 - OLD MYOCARDIAL INFARCTION (7) Peripheral artery disease Code(s): I73.9 - PERIPHERAL VASCULAR DISEASE, UNSPECIFIED Assessment/Plan IMP DYSPNEA COPD EXACERBATION ASHD S/P SD LV DIASTOLIC DYSFUNCTION HTN PVD GERD BARRETTS CAROTID ARTERY DISEASE PLAN IV STEROIDS INHALED BRONCHODILATORS O2 ABX ZITHROMAX 250mg DAILY ANTI-INFLAMMATORY PFTS DR LEÓN Problem List - Problems (1) ASHD (arteriosclerotic heart disease) Code(s): I25.10 - ATHSCL HEART DISEASE OF [place] CORONARY ARTERY W/O ANG PCTRS (2) Anemia Code(s): D64.9 - ANEMIA, UNSPECIFIED (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 transplanted heart: [place] heart Associated angina: without angina Qualified Code(s): I25.10 - Atherosclerotic heart disease of [place] coronary artery without angina pectoris (6) History of myocardial infarction Code(s): I25.2 - OLD MYOCARDIAL INFARCTION (7) Peripheral artery disease Code(s): I73.9 - PERIPHERAL VASCULAR DISEASE, UNSPECIFIED
[2018-02-20] MEDS ORDERED: MECLIZINE HCL 12.5 MG TABLET PO PRN (10:08)
[2018-02-20] MEDS: VERAPAMIL HCL 240 MG E.R. TABLET (FP) PO SCH ×2 (10:32→21:10)
[2018-02-20] MEDS: NYSTATIN 500,000 UNITS/5 ML SUSPENSION PO SCH ×2 (12:17→18:15)
[2018-02-20 12:23] LABS: ACANTHOCYTES 0; ANISOCYTOSIS 0; HELMET CELLS 0; HOWELL-JOLLY BODIES 0; MACROCYTOSIS 0; OVALOCYTE 0; PLATELET ESTIMATE NORMAL; ROULEAU 0; SICKELED CELLS 0; TARGET CELLS 0; TEAR DROP CELLS 0; TOXIC GRANULATION 0
--- NOTE | 2018-02-20 16:09 | PN ---
Progress Note, Physician Chief Complaint: Events noted Feels better, but still intermittently SOB with cough History of Present Illness: Patient was seen and examined. Awake and alert. Chart was reviewed As outlined - Current Medication List Current Medications: Active Medications Acetaminophen (Tylenol -) 650 mg PO Q6H PRN PRN Reason: FEVER Last Admin: 02/19/18 21:19 Dose: 650 mg Al Hydroxide/Mg Hydroxide (Mylanta Oral Suspension -) 30 ml PO Q6H PRN PRN Reason: DYSPEPSIA Albuterol Sulfate (Ventolin 0.083% Nebulizer Soln -) 1 amp NEB Q4H PRN PRN Reason: SHORT OF BREATH/WHEEZING Last Admin: 02/20/18 15:33 Dose: 1 amp Alprazolam (Xanax -) 0.25 mg PO HS PRN PRN Reason: ANXIETY Atorvastatin Calcium (Lipitor -) 80 mg PO HS [facility] Last Admin: 02/19/18 21:07 Dose: 80 mg Budesonide/Formoterol Fumarate (Symbicort 160/4.5mcg -) 2 puff IH BID [facility] Last Admin: 02/20/18 09:12 Dose: 2 puff Clopidogrel Bisulfate (Plavix -) 75 mg PO DAILY [facility] Last Admin: 02/20/18 09:10 Dose: 75 mg Docusate Sodium (Colace -) 300 mg PO HS [facility] Last Admin: 02/19/18 21:19 Dose: 300 mg Fluticasone Propionate (Flonase -) 1 spray NS BID [facility] Last Admin: 02/20/18 09:16 Dose: 1 spray Folic Acid (Folic Acid -) 1 mg PO DAILY [facility] Last Admin: 02/20/18 09:10 Dose: 1 mg Furosemide (Lasix -) 20 mg PO DAILY [facility] Last Admin: 02/20/18 09:10 Dose: 20 mg Guaifenesin (Robitussin Dm -) 10 ml PO Q6H PRN PRN Reason: COUGH Levofloxacin (Levaquin 500 Mg Premixed Ivpb -) 500 mg in 100 mls @ 100 mls/hr IVPB DAILY [facility]; Protocol Last Admin: 02/20/18 09:15 Dose: 100 mls/hr Insulin Aspart (Novolog Vial Sliding Scale -) 1 vial SQ AM [facility]; Protocol Last Admin: 02/20/18 06:06 Dose: Not Given Isosorbide Mononitrate (Imdur -) 30 mg PO BID [facility] Last Admin: 02/20/18 09:10 Dose: 30 mg Meclizine HCl (Antivert -) 12.5 mg PO Q6H PRN PRN Reason: VERTIGO Methylprednisolone Sodium Succinate (Solu-Medrol -) 40 mg IVPB Q8H [facility] Last Admin: 02/20/18 13:48 Dose: 40 mg Montelukast Sodium (Singulair -) 10 mg PO HS [facility] Last Admin: 02/19/18 21:07 Dose: 10 mg Nitroglycerin (Nitrostat -) 0.4 mg SL TID PRN PRN Reason: FOR CHEST PAIN Nystatin (Nystatin Oral Suspension -) 500,000 units PO Q6HPO [facility] Last Admin: 02/20/18 12:17 Dose: 500,000 units Pantoprazole Sodium (Protonix -) 40 mg PO DAILY [facility] Last Admin: 02/20/18 09:13 Dose: 40 mg Potassium Chloride (K-Dur -) 10 meq PO BID [facility] Ranitidine HCl (Zantac -) 150 mg PO DAILY [facility] Last Admin: 02/20/18 09:10 Dose: 150 mg Ranolazine (Ranexa -) 500 mg PO BID [facility] Last Admin: 02/20/18 09:10 Dose: 500 mg Tiotropium [place] (Spiriva Respimat) 2 puff IH DAILY [facility] Last Admin: 02/20/18 12:20 Dose: Not Given Verapamil HCl (Calan Sr -) 240 mg PO BID [facility] Last Admin: 02/20/18 10:32 Dose: 240 mg - Objective Vital Signs: Vital Signs Temperature 98.3 F 02/20/18 15:13 Pulse Rate 74 02/20/18 15:13 Respiratory Rate 20 02/20/18 15:13 Blood Pressure 118/51 02/20/18 15:13 O2 Sat by Pulse Oximetry (%) 97 02/20/18 10:00 Eyes: Yes: PERRL HENT: Yes: Atraumatic Neck: Yes: Supple Cardiovascular: Yes: Regular Rate and Rhythm Labs: CBC, BMP 02/20/18 06:00 02/20/18 06:00 INR, PTT INR 0.98 (0.82-1.09) 02/14/18 18:29 Problem List - Problems (1) HTN (hypertension) Code(s): I10 - ESSENTIAL (PRIMARY) HYPERTENSION Qualifiers: Hypertension type: essential hypertension Qualified Code(s): I10 - Essential (primary) hypertension (2) Carotid stenosis Code(s): I65.29 - OCCLUSION AND STENOSIS OF UNSPECIFIED CAROTID ARTERY (3) H/O carotid endarterectomy Code(s): Z98.890 - OTHER SPECIFIED POSTPROCEDURAL STATES (4) ASHD (arteriosclerotic heart disease) Code(s): I25.10 - ATHSCL HEART DISEASE OF [place] CORONARY ARTERY W/O ANG PCTRS (5) COPD exacerbation Code(s): J44.1 - CHRONIC OBSTRUCTIVE PULMONARY DISEASE W (ACUTE) EXACERBATION (6) History of myocardial infarction Code(s): I25.2 - OLD MYOCARDIAL INFARCTION (7) Hyperlipidemia Code(s): E78.5 - HYPERLIPIDEMIA, UNSPECIFIED Qualifiers: Hyperlipidemia type: pure hypercholesterolemia Qualified Code(s): E78.00 - Pure hypercholesterolemia, unspecified; E78.0 - Pure hypercholesterolemia (8) Peripheral artery disease Code(s): I73.9 - PERIPHERAL VASCULAR DISEASE, UNSPECIFIED Assessment/Plan 1. Clinical presentation c/w acute exacerbation of COPD and probable pneumonia 2. Chronic diastolic LV dysfunction with class I-II NYHA classification heart failure 3. HTN 4. Hypercholesterolemia 5. Carotid stenosis s/p CEA 6. PVD post intervention 7. Mesenteric ischemia PLAN: 1. Steroids and bronchodilators 2. Continue Verapamil and Imdur 3. Statin 4. Plavix 5. Continue Ranexa 6. Diuretics Further plans are to follow Gerard Nichols MD
[2018-02-20] MEDS: MONTELUKAST NA 10 MG TABLET PO SCH (21:10)
[2018-02-20] MEDS: DOCUSATE SODIUM 100 MG CAPSULE (FP) PO SCH (21:11)
[2018-02-20] MEDS: POTASSIUM CHLORIDE TABS 10 MEQ TABLET.ER (FP) PO SCH (21:11)
[2018-02-20] MEDS: ATORVASTATIN CA 80 MG TABLET (FP) PO SCH (21:12)
[2018-02-21] MEDS: NYSTATIN 500,000 UNITS/5 ML SUSPENSION PO SCH ×5 (00:07→23:48)
[2018-02-21] MEDS: methylPREDNISolone NA SUCC 40 MG/1 ML VIAL IVPB SCH ×3 (05:04→22:17)
[2018-02-21] MEDS: INSULIN SLIDING SCALE (NOVOLOG) 1 VIAL SQ SCH (06:04)
[2018-02-21] MEDS: ALBUTEROL SO4 0.083% IH SOL 2.5 MG/3 ML VIAL.NEB. NEB PRN (06:30)
--- NOTE | 2018-02-21 07:53 | PN ---
Progress Note, Physician Chief Complaint: in bed NAD no new c/o, slightly less cough, feels tired, woke up b/o cough last night - Current Medication List Current Medications: Active Medications Acetaminophen (Tylenol -) 650 mg PO Q6H PRN PRN Reason: FEVER Last Admin: 02/19/18 21:19 Dose: 650 mg Al Hydroxide/Mg Hydroxide (Mylanta Oral Suspension -) 30 ml PO Q6H PRN PRN Reason: DYSPEPSIA Albuterol Sulfate (Ventolin 0.083% Nebulizer Soln -) 1 amp NEB Q4H PRN PRN Reason: SHORT OF BREATH/WHEEZING Last Admin: 02/21/18 06:30 Dose: 1 amp Alprazolam (Xanax -) 0.25 mg PO HS PRN PRN Reason: ANXIETY Atorvastatin Calcium (Lipitor -) 80 mg PO HS [facility] Last Admin: 02/20/18 21:12 Dose: 80 mg Budesonide/Formoterol Fumarate (Symbicort 160/4.5mcg -) 2 puff IH BID [facility] Last Admin: 02/20/18 21:11 Dose: 2 puff Clopidogrel Bisulfate (Plavix -) 75 mg PO DAILY [facility] Last Admin: 02/20/18 09:10 Dose: 75 mg Docusate Sodium (Colace -) 300 mg PO HS [facility] Last Admin: 02/20/18 21:11 Dose: 300 mg Fluticasone Propionate (Flonase -) 1 spray NS BID [facility] Last Admin: 02/20/18 21:11 Dose: 1 spray Folic Acid (Folic Acid -) 1 mg PO DAILY [facility] Last Admin: 02/20/18 09:10 Dose: 1 mg Furosemide (Lasix -) 20 mg PO DAILY [facility] Last Admin: 02/20/18 09:10 Dose: 20 mg Guaifenesin (Robitussin Dm -) 10 ml PO Q6H PRN PRN Reason: COUGH Levofloxacin (Levaquin 500 Mg Premixed Ivpb -) 500 mg in 100 mls @ 100 mls/hr IVPB DAILY [facility]; Protocol Last Admin: 02/20/18 09:15 Dose: 100 mls/hr Insulin Aspart (Novolog Vial Sliding Scale -) 1 vial SQ AM [facility]; Protocol Last Admin: 02/21/18 06:04 Dose: Not Given Isosorbide Mononitrate (Imdur -) 30 mg PO BID [facility] Last Admin: 02/20/18 21:10 Dose: 30 mg Meclizine HCl (Antivert -) 12.5 mg PO Q6H PRN PRN Reason: VERTIGO Methylprednisolone Sodium Succinate (Solu-Medrol -) 40 mg IVPB Q8H [facility] Last Admin: 02/21/18 05:04 Dose: 40 mg Montelukast Sodium (Singulair -) 10 mg PO HS [facility] Last Admin: 02/20/18 21:10 Dose: 10 mg Nitroglycerin (Nitrostat -) 0.4 mg SL TID PRN PRN Reason: FOR CHEST PAIN Nystatin (Nystatin Oral Suspension -) 500,000 units PO Q6HPO [facility] Last Admin: 02/21/18 05:04 Dose: 500,000 units Pantoprazole Sodium (Protonix -) 40 mg PO DAILY [facility] Last Admin: 02/20/18 09:13 Dose: 40 mg Potassium Chloride (K-Dur -) 10 meq PO BID [facility] Last Admin: 02/20/18 21:11 Dose: 10 meq Ranitidine HCl (Zantac -) 150 mg PO DAILY [facility] Last Admin: 02/20/18 09:10 Dose: 150 mg Ranolazine (Ranexa -) 500 mg PO BID [facility] Last Admin: 02/20/18 21:10 Dose: 500 mg Tiotropium [place] (Spiriva Respimat) 2 puff IH DAILY [facility] Last Admin: 02/20/18 12:20 Dose: Not Given Verapamil HCl (Calan Sr -) 240 mg PO BID [facility] Last Admin: 02/20/18 21:10 Dose: 240 mg - Objective Vital Signs: Vital Signs Temperature 98.3 F 02/21/18 06:00 Pulse Rate 66 02/21/18 06:00 Respiratory Rate 18 02/21/18 06:00 Blood Pressure 113/54 02/21/18 06:00 O2 Sat by Pulse Oximetry (%) 97 02/20/18 21:00 Constitutional: Yes: No Distress, Calm Eyes: Yes: Conjunctiva Clear HENT: Yes: Atraumatic Neck: Yes: Supple Cardiovascular: Yes: Regular Rate and Rhythm Respiratory: Yes: Wheezes Gastrointestinal: Yes: Soft. No: Distention, Tenderness Genitourinary: No: CVA Tenderness - Left, CVA Tenderness - Right Musculoskeletal: No: Joint Stiffness, Joint Swelling Extremities: No: Cold, Cool, Cyanosis Edema: No Integumentary: No: Rash, Venous Stasis Changes Neurological: Yes: WNL, Alert, Oriented ...Motor Strength: WNL Psychiatric: Yes: WNL, Alert, Oriented. No: Agitated, Suicidal Ideation Labs: CBC, BMP 02/20/18 06:00 02/20/18 06:00 INR, PTT INR 0.98 (0.82-1.09) 02/14/18 18:29 - ....Imaging Other: Report Reviewed Assessment/Plan Patient is a 62yo female with PMH of OR s/p angioplasty, carotid endarterectomy , COPD admitted with acute URI/ pneumonia and COPD exacerbation taper slowly IV steroids, continue nebs, IV antibiotics; cough syrup prn noted chest CT; will need pulm f/u after DC carotid US c/w bilat stenosis > 70% - vascular sx f/u cardiology and pulmonary f/u will need also general surgery f/u outpt for hernias f/u labs gastric PFX while on steroids BGM check while on steroids prn xanax for insomnia and anxiety; falls PFX
[2018-02-21] MEDS: RANOLAZINE E.R. 500 MG TABLET (FP) PO SCH ×2 (09:30→22:19)
[2018-02-21] MEDS: TIOTROPIUM BROMIDE 2.5 MCG (SPIRIVA) RESPIMAT INHALER IH SCH (09:30)
[2018-02-21] MEDS: RANITIDINE HCL 150 MG TABLET (FP) PO SCH (09:31)
[2018-02-21] MEDS: POTASSIUM CHLORIDE TABS 10 MEQ TABLET.ER (FP) PO SCH ×2 (09:31→22:18)
[2018-02-21] MEDS: FUROSEMIDE 20 MG TABLET (FP) PO SCH (09:31)
[2018-02-21] MEDS: ISOSORBIDE MONONITRATE 30 MG TAB.SR.24H (FP) PO SCH ×2 (09:31→22:17)
[2018-02-21] MEDS: CLOPIDOGREL BISULFATE 75 MG TABLET (FP) PO SCH (09:31)
[2018-02-21] MEDS: FOLIC ACID 1 MG TABLET (FP) PO SCH (09:31)
[2018-02-21] MEDS: FLUTICASONE PROP 0.05% 16 GM NASAL SPRAY NS SCH ×2 (09:32→22:19)
[2018-02-21] MEDS: VERAPAMIL HCL 240 MG E.R. TABLET (FP) PO SCH ×2 (09:32→22:18)
[2018-02-21] MEDS: PANTOPRAZOLE 40 MG TABLET (FP) PO SCH (09:35)
[2018-02-21] MEDS: BUDESONIDE/FORMETEROL FUMARATE 160/4.5 mcg INHALER IH SCH ×2 (09:44→22:18)
--- NOTE | 2018-02-21 11:02 | PN ---
Progress Note (short form) - Note Progress Note: PULMONARY Still with shortness of breath, cough and wheezing. Vital Signs Period Temp Pulse Resp BP Sys/Mann Pulse Ox Last 24 Hr 97.7 F-98.3 F 66-81 18-20 113-124/48-54 97 Gen: mildly tachypneic at rest Heart: RRR Lung: decreased air entry, + rhonchi, wheezes Abd: soft, nontender Ext: no edema CBC, BMP 02/20/18 06:00 02/20/18 06:00 Active Medications Acetaminophen (Tylenol -) 650 mg PO Q6H PRN PRN Reason: FEVER Last Admin: 02/19/18 21:19 Dose: 650 mg Al Hydroxide/Mg Hydroxide (Mylanta Oral Suspension -) 30 ml PO Q6H PRN PRN Reason: DYSPEPSIA Albuterol Sulfate (Ventolin 0.083% Nebulizer Soln -) 1 amp NEB Q4H PRN PRN Reason: SHORT OF BREATH/WHEEZING Last Admin: 02/21/18 06:30 Dose: 1 amp Alprazolam (Xanax -) 0.25 mg PO HS PRN PRN Reason: ANXIETY Atorvastatin Calcium (Lipitor -) 80 mg PO HS [facility] Last Admin: 02/20/18 21:12 Dose: 80 mg Budesonide/Formoterol Fumarate (Symbicort 160/4.5mcg -) 2 puff IH BID [facility] Last Admin: 02/21/18 09:44 Dose: 2 puff Clopidogrel Bisulfate (Plavix -) 75 mg PO DAILY [facility] Last Admin: 02/21/18 09:31 Dose: 75 mg Docusate Sodium (Colace -) 300 mg PO HS [facility] Last Admin: 02/20/18 21:11 Dose: 300 mg Fluticasone Propionate (Flonase -) 1 spray NS BID [facility] Last Admin: 02/21/18 09:32 Dose: 1 spray Folic Acid (Folic Acid -) 1 mg PO DAILY [facility] Last Admin: 02/21/18 09:31 Dose: 1 mg Furosemide (Lasix -) 20 mg PO DAILY [facility] Last Admin: 02/21/18 09:31 Dose: 20 mg Guaifenesin (Robitussin Dm -) 10 ml PO Q6H PRN PRN Reason: COUGH Levofloxacin (Levaquin 500 Mg Premixed Ivpb -) 500 mg in 100 mls @ 100 mls/hr IVPB DAILY [facility]; Protocol Last Admin: 02/21/18 09:31 Dose: 100 mls/hr Insulin Aspart (Novolog Vial Sliding Scale -) 1 vial SQ AM [facility]; Protocol Last Admin: 02/21/18 06:04 Dose: Not Given Isosorbide Mononitrate (Imdur -) 30 mg PO BID [facility] Last Admin: 02/21/18 09:31 Dose: 30 mg Meclizine HCl (Antivert -) 12.5 mg PO Q6H PRN PRN Reason: VERTIGO Methylprednisolone Sodium Succinate (Solu-Medrol -) 40 mg IVPB Q8H [facility] Last Admin: 02/21/18 05:04 Dose: 40 mg Montelukast Sodium (Singulair -) 10 mg PO HS [facility] Last Admin: 02/20/18 21:10 Dose: 10 mg Nitroglycerin (Nitrostat -) 0.4 mg SL TID PRN PRN Reason: FOR CHEST PAIN Nystatin (Nystatin Oral Suspension -) 500,000 units PO Q6HPO [facility] Last Admin: 02/21/18 05:04 Dose: 500,000 units Pantoprazole Sodium (Protonix -) 40 mg PO DAILY [facility] Last Admin: 02/21/18 09:35 Dose: 40 mg Potassium Chloride (K-Dur -) 10 meq PO BID [facility] Last Admin: 02/21/18 09:31 Dose: 10 meq Ranitidine HCl (Zantac -) 150 mg PO DAILY [facility] Last Admin: 02/21/18 09:31 Dose: 150 mg Ranolazine (Ranexa -) 500 mg PO BID [facility] Last Admin: 02/21/18 09:30 Dose: 500 mg Tiotropium [place] (Spiriva Respimat) 2 puff IH DAILY [facility] Last Admin: 02/21/18 09:30 Dose: 2 puff Verapamil HCl (Calan Sr -) 240 mg PO BID [facility] Last Admin: 02/21/18 09:32 Dose: 240 mg A/P Acute COPD Exacerbation CAD LV Diastolic Dysfunction HTN Hyperlipidemia PAD - continue medrol at current dose - inhaled bronchodilators standing and PRN - on empiric antibiotics - O2 to keep SpO2>90% - DVT prophylaxis
[2018-02-21] MEDS: ALBUTEROL SO4 0.083% IH SOL 2.5 MG/3 ML VIAL.NEB. NEB SCH ×3 (11:26→20:37)
[2018-02-21 11:58] VITALS: BMI 26.6
--- NOTE | 2018-02-21 13:16 | PN ---
Progress Note, Physician Chief Complaint: Events noted Feels better Intermittent cough History of Present Illness: Patient was seen and examined. Awake and alert. Chart was reviewed Denies chest pain or palpitations - Current Medication List Current Medications: Active Medications Acetaminophen (Tylenol -) 650 mg PO Q6H PRN PRN Reason: FEVER Last Admin: 02/19/18 21:19 Dose: 650 mg Al Hydroxide/Mg Hydroxide (Mylanta Oral Suspension -) 30 ml PO Q6H PRN PRN Reason: DYSPEPSIA Albuterol Sulfate (Ventolin 0.083% Nebulizer Soln -) 1 amp NEB Q4H PRN PRN Reason: SHORT OF BREATH/WHEEZING Last Admin: 02/21/18 06:30 Dose: 1 amp Albuterol Sulfate (Ventolin 0.083% Nebulizer Soln -) 1 amp NEB RQID [facility] Last Admin: 02/21/18 11:26 Dose: 1 amp Alprazolam (Xanax -) 0.25 mg PO HS PRN PRN Reason: ANXIETY Atorvastatin Calcium (Lipitor -) 80 mg PO HS [facility] Last Admin: 02/20/18 21:12 Dose: 80 mg Budesonide/Formoterol Fumarate (Symbicort 160/4.5mcg -) 2 puff IH BID [facility] Last Admin: 02/21/18 09:44 Dose: 2 puff Clopidogrel Bisulfate (Plavix -) 75 mg PO DAILY [facility] Last Admin: 02/21/18 09:31 Dose: 75 mg Docusate Sodium (Colace -) 300 mg PO HS [facility] Last Admin: 02/20/18 21:11 Dose: 300 mg Fluticasone Propionate (Flonase -) 1 spray NS BID [facility] Last Admin: 02/21/18 09:32 Dose: 1 spray Folic Acid (Folic Acid -) 1 mg PO DAILY [facility] Last Admin: 02/21/18 09:31 Dose: 1 mg Furosemide (Lasix -) 20 mg PO DAILY [facility] Last Admin: 02/21/18 09:31 Dose: 20 mg Guaifenesin (Robitussin Dm -) 10 ml PO Q6H PRN PRN Reason: COUGH Levofloxacin (Levaquin 500 Mg Premixed Ivpb -) 500 mg in 100 mls @ 100 mls/hr IVPB DAILY [facility]; Protocol Last Admin: 02/21/18 09:31 Dose: 100 mls/hr Insulin Aspart (Novolog Vial Sliding Scale -) 1 vial SQ AM [facility]; Protocol Last Admin: 02/21/18 06:04 Dose: Not Given Isosorbide Mononitrate (Imdur -) 30 mg PO BID [facility] Last Admin: 02/21/18 09:31 Dose: 30 mg Meclizine HCl (Antivert -) 12.5 mg PO Q6H PRN PRN Reason: VERTIGO Methylprednisolone Sodium Succinate (Solu-Medrol -) 40 mg IVPB Q8H [facility] Last Admin: 02/21/18 05:04 Dose: 40 mg Montelukast Sodium (Singulair -) 10 mg PO HS [facility] Last Admin: 02/20/18 21:10 Dose: 10 mg Nitroglycerin (Nitrostat -) 0.4 mg SL TID PRN PRN Reason: FOR CHEST PAIN Nystatin (Nystatin Oral Suspension -) 500,000 units PO Q6HPO [facility] Last Admin: 02/21/18 05:04 Dose: 500,000 units Pantoprazole Sodium (Protonix -) 40 mg PO DAILY [facility] Last Admin: 02/21/18 09:35 Dose: 40 mg Potassium Chloride (K-Dur -) 10 meq PO BID [facility] Last Admin: 02/21/18 09:31 Dose: 10 meq Ranitidine HCl (Zantac -) 150 mg PO DAILY [facility] Last Admin: 02/21/18 09:31 Dose: 150 mg Ranolazine (Ranexa -) 500 mg PO BID [facility] Last Admin: 02/21/18 09:30 Dose: 500 mg Tiotropium [place] (Spiriva Respimat) 2 puff IH DAILY [facility] Last Admin: 02/21/18 09:30 Dose: 2 puff Verapamil HCl (Calan Sr -) 240 mg PO BID [facility] Last Admin: 02/21/18 09:32 Dose: 240 mg - Objective Vital Signs: Vital Signs Temperature 98.3 F 02/21/18 06:00 Pulse Rate 66 02/21/18 06:00 Respiratory Rate 18 02/21/18 06:00 Blood Pressure 113/54 02/21/18 06:00 O2 Sat by Pulse Oximetry (%) 97 02/20/18 21:00 HENT: Yes: Atraumatic Neck: Yes: Supple Cardiovascular: Yes: Regular Rate and Rhythm, S1, S2 Respiratory: Yes: Diminished, Wheezes Gastrointestinal: Yes: Normal Bowel Sounds, Soft. No: Tenderness Edema: No Problem List - Problems (1) HTN (hypertension) Code(s): I10 - ESSENTIAL (PRIMARY) HYPERTENSION Qualifiers: Hypertension type: essential hypertension Qualified Code(s): I10 - Essential (primary) hypertension (2) Carotid stenosis Code(s): I65.29 - OCCLUSION AND STENOSIS OF UNSPECIFIED CAROTID ARTERY (3) H/O carotid endarterectomy Code(s): Z98.890 - OTHER SPECIFIED POSTPROCEDURAL STATES (4) ASHD (arteriosclerotic heart disease) Code(s): I25.10 - ATHSCL HEART DISEASE OF [place] CORONARY ARTERY W/O ANG PCTRS (5) COPD exacerbation Code(s): J44.1 - CHRONIC OBSTRUCTIVE PULMONARY DISEASE W (ACUTE) EXACERBATION (6) History of myocardial infarction Code(s): I25.2 - OLD MYOCARDIAL INFARCTION (7) Hyperlipidemia Code(s): E78.5 - HYPERLIPIDEMIA, UNSPECIFIED Qualifiers: Hyperlipidemia type: pure hypercholesterolemia Qualified Code(s): E78.00 - Pure hypercholesterolemia, unspecified; E78.0 - Pure hypercholesterolemia (8) Peripheral artery disease Code(s): I73.9 - PERIPHERAL VASCULAR DISEASE, UNSPECIFIED Assessment/Plan 1. Clinical presentation c/w acute exacerbation of COPD and probable pneumonia 2. Chronic diastolic LV dysfunction with class I-II NYHA classification heart failure 3. HTN 4. Hypercholesterolemia 5. Carotid stenosis s/p CEA 6. PVD post intervention 7. Mesenteric ischemia PLAN: 1. Steroids and bronchodilators 2. Continue Verapamil and Imdur 3. Continue Statin 4. Continue Plavix 5. Continue Ranexa 6. Continue Diuretics Further plans are to follow. Clinically improving Gerard Nichols MD
[2018-02-21] MEDS ORDERED: PT OWN MED DRAWER 7, Y5N ONE (16:26)
[2018-02-21] MEDS: MONTELUKAST NA 10 MG TABLET PO SCH (22:17)
[2018-02-21] MEDS: ATORVASTATIN CA 80 MG TABLET (FP) PO SCH (22:17)
[2018-02-21] MEDS: ALPRAZolam 0.25 MG TABLET PO PRN (22:17)
[2018-02-21] MEDS: MAG HYDROX/AL HYDROX/SIMETH 30 ML UNIT-DOSE CUP PO PRN (22:18)
[2018-02-21] MEDS: DOCUSATE SODIUM 100 MG CAPSULE (FP) PO SCH (22:18)
[2018-02-22] MEDS: NYSTATIN 500,000 UNITS/5 ML SUSPENSION PO SCH ×3 (05:04→17:57)
[2018-02-22] MEDS: methylPREDNISolone NA SUCC 40 MG/1 ML VIAL IVPB SCH ×3 (05:04→21:34)
[2018-02-22] MEDS: INSULIN SLIDING SCALE (NOVOLOG) 1 VIAL SQ SCH (06:09)
[2018-02-22 07:38] LABS: BASO % 0.1 % (0-2.0); HEMATOCRIT 37.4 % (32.4-45.2); HEMOGLOBIN 12.7 GM/dL (10.7-15.3); LYMPH % 5.1 % (8-40); MCH 29.9 pg (25.7-33.7); MEAN CELL VOLUME 87.9 fl (80-96); MEAN PLT VOLUME 6.6 fl (7.5-11.1); MONO % 2.9 % (3.8-10.2); NEUT % 91.9 % (42.8-82.8); PLATELET COUNT 258 K/MM3 (134-434); RBC 4.26 M/mm3 (3.60-5.2); RDW 14.5 % (11.6-15.6); WHITE BLOOD COUNT 8.8 K/mm3 (4.0-10.0)
[2018-02-22 08:02] LABS: ANION GAP 7 (8-16); BLOOD UREA NITROGEN 23 mg/dL (7-18); CALCIUM 8.3 mg/dL (8.5-10.1); CHLORIDE 99 mmol/L (98-107); CO2 31 mmol/L (21-32); CREATININE 0.7 mg/dL (0.55-1.02); GLUCOSE,RANDOM 141 mg/dL (74-106); POTASSIUM 4.9 mmol/L (3.5-5.1); SODIUM 137 mmol/L (136-145)
--- NOTE | 2018-02-22 08:42 | PN ---
Progress Note, Physician Chief Complaint: coughing intermittently, did not sleep well - Current Medication List Current Medications: Active Medications Acetaminophen (Tylenol -) 650 mg PO Q6H PRN PRN Reason: FEVER Last Admin: 02/19/18 21:19 Dose: 650 mg Al Hydroxide/Mg Hydroxide (Mylanta Oral Suspension -) 30 ml PO Q6H PRN PRN Reason: DYSPEPSIA Last Admin: 02/21/18 22:18 Dose: 30 ml Albuterol Sulfate (Ventolin 0.083% Nebulizer Soln -) 1 amp NEB Q4H PRN PRN Reason: SHORT OF BREATH/WHEEZING Last Admin: 02/21/18 06:30 Dose: 1 amp Albuterol Sulfate (Ventolin 0.083% Nebulizer Soln -) 1 amp NEB RQID [facility] Last Admin: 02/21/18 20:37 Dose: 1 amp Alprazolam (Xanax -) 0.25 mg PO HS PRN PRN Reason: ANXIETY Last Admin: 02/21/18 22:17 Dose: 0.25 mg Atorvastatin Calcium (Lipitor -) 80 mg PO HS [facility] Last Admin: 02/21/18 22:17 Dose: 80 mg Budesonide/Formoterol Fumarate (Symbicort 160/4.5mcg -) 2 puff IH BID [facility] Last Admin: 02/21/18 22:18 Dose: 2 puff Clopidogrel Bisulfate (Plavix -) 75 mg PO DAILY [facility] Last Admin: 02/21/18 09:31 Dose: 75 mg Docusate Sodium (Colace -) 300 mg PO HS [facility] Last Admin: 02/21/18 22:18 Dose: 300 mg Fluticasone Propionate (Flonase -) 1 spray NS BID [facility] Last Admin: 02/21/18 22:19 Dose: 1 spray Folic Acid (Folic Acid -) 1 mg PO DAILY [facility] Last Admin: 02/21/18 09:31 Dose: 1 mg Furosemide (Lasix -) 20 mg PO DAILY [facility] Last Admin: 02/21/18 09:31 Dose: 20 mg Guaifenesin (Robitussin Dm -) 10 ml PO Q6H PRN PRN Reason: COUGH Levofloxacin (Levaquin 500 Mg Premixed Ivpb -) 500 mg in 100 mls @ 100 mls/hr IVPB DAILY [facility]; Protocol Last Admin: 02/21/18 09:31 Dose: 100 mls/hr Insulin Aspart (Novolog Vial Sliding Scale -) 1 vial SQ AM [facility]; Protocol Last Admin: 02/22/18 06:09 Dose: Not Given Isosorbide Mononitrate (Imdur -) 30 mg PO BID [facility] Last Admin: 02/21/18 22:17 Dose: 30 mg Meclizine HCl (Antivert -) 12.5 mg PO Q6H PRN PRN Reason: VERTIGO Methylprednisolone Sodium Succinate (Solu-Medrol -) 40 mg IVPB Q8H [facility] Last Admin: 02/22/18 05:04 Dose: 40 mg Montelukast Sodium (Singulair -) 10 mg PO HS [facility] Last Admin: 02/21/18 22:17 Dose: 10 mg Nitroglycerin (Nitrostat -) 0.4 mg SL TID PRN PRN Reason: FOR CHEST PAIN Nystatin (Nystatin Oral Suspension -) 500,000 units PO Q6HPO [facility] Last Admin: 02/22/18 05:04 Dose: 500,000 units Pantoprazole Sodium (Protonix -) 40 mg PO DAILY [facility] Last Admin: 02/21/18 09:35 Dose: 40 mg Potassium Chloride (K-Dur -) 10 meq PO BID [facility] Last Admin: 02/21/18 22:18 Dose: 10 meq Ranitidine HCl (Zantac -) 150 mg PO DAILY [facility] Last Admin: 02/21/18 09:31 Dose: 150 mg Ranolazine (Ranexa -) 500 mg PO BID [facility] Last Admin: 02/21/18 22:19 Dose: 500 mg Tiotropium [place] (Spiriva Respimat) 2 puff IH DAILY [facility] Last Admin: 02/21/18 09:30 Dose: 2 puff Verapamil HCl (Calan Sr -) 240 mg PO BID [facility] Last Admin: 02/21/18 22:18 Dose: 240 mg - Objective Vital Signs: Vital Signs Temperature 97.9 F 02/22/18 06:00 Pulse Rate 69 02/22/18 06:00 Respiratory Rate 20 02/22/18 06:00 Blood Pressure 115/50 02/22/18 06:00 O2 Sat by Pulse Oximetry (%) 97 02/21/18 21:00 Constitutional: Yes: No Distress, Calm Eyes: Yes: Conjunctiva Clear HENT: Yes: Atraumatic Neck: Yes: Supple Cardiovascular: Yes: Regular Rate and Rhythm Respiratory: Yes: Wheezes Gastrointestinal: Yes: Soft. No: Distention Genitourinary: No: CVA Tenderness - Left, CVA Tenderness - Right Musculoskeletal: No: Joint Stiffness, Joint Swelling Extremities: No: Cold, Cool, Cyanosis Edema: No Integumentary: No: Rash, Venous Stasis Changes Neurological: Yes: WNL, Alert, Oriented ...Motor Strength: WNL Psychiatric: Yes: WNL, Alert, Oriented. No: Agitated, Suicidal Ideation Labs: CBC, BMP 02/22/18 06:10 02/22/18 06:10 INR, PTT INR 0.98 (0.82-1.09) 02/14/18 18:29 - ....Imaging Other: Report Reviewed Assessment/Plan Patient is a 62yo female with PMH of [place] s/p angioplasty, carotid endarterectomy , COPD admitted with acute URI/ pneumonia and COPD exacerbation taper slowly IV steroids per PULM , continue nebs, IV antibiotics; cough syrup prn noted chest CT; will need pulm f/u after DC carotid US c/w bilat stenosis > 70% - vascular sx f/u outpt cardiology and pulmonary f/u general surgery f/u outpt for hernias f/u labs gastric PFX while on steroids BGM check while on steroids prn xanax for insomnia and anxiety; falls PFX
[2018-02-22] MEDS: ALBUTEROL SO4 0.083% IH SOL 2.5 MG/3 ML VIAL.NEB. NEB SCH ×3 (08:50→21:05)
[2018-02-22] MEDS ORDERED: PT OWN MED DRAWER 7, Y5N ONE ×3 (09:51→21:24)
[2018-02-22] MEDS: FLUTICASONE PROP 0.05% 16 GM NASAL SPRAY NS SCH ×2 (10:00→21:35)
[2018-02-22] MEDS: BUDESONIDE/FORMETEROL FUMARATE 160/4.5 mcg INHALER IH SCH ×2 (10:00→21:35)
[2018-02-22] MEDS: TIOTROPIUM BROMIDE 2.5 MCG (SPIRIVA) RESPIMAT INHALER IH SCH (10:01)
[2018-02-22] MEDS: PANTOPRAZOLE 40 MG TABLET (FP) PO SCH (10:03)
[2018-02-22] MEDS: POTASSIUM CHLORIDE TABS 10 MEQ TABLET.ER (FP) PO SCH ×2 (10:03→21:34)
[2018-02-22] MEDS: CLOPIDOGREL BISULFATE 75 MG TABLET (FP) PO SCH (10:04)
[2018-02-22] MEDS: ISOSORBIDE MONONITRATE 30 MG TAB.SR.24H (FP) PO SCH ×2 (10:04→21:35)
[2018-02-22] MEDS: RANOLAZINE E.R. 500 MG TABLET (FP) PO SCH ×2 (10:04→21:35)
[2018-02-22] MEDS: FOLIC ACID 1 MG TABLET (FP) PO SCH (10:04)
[2018-02-22] MEDS: VERAPAMIL HCL 240 MG E.R. TABLET (FP) PO SCH ×2 (10:04→21:34)
[2018-02-22] MEDS: RANITIDINE HCL 150 MG TABLET (FP) PO SCH (10:04)
[2018-02-22] MEDS: FUROSEMIDE 20 MG TABLET (FP) PO SCH (10:04)
[2018-02-22 10:49] LABS: ACANTHOCYTES 0; ANISOCYTOSIS 0; HELMET CELLS 0; HOWELL-JOLLY BODIES 0; MACROCYTOSIS 0; OVALOCYTE 0; PLATELET ESTIMATE NORMAL; ROULEAU 0; SICKELED CELLS 0; TARGET CELLS 0; TEAR DROP CELLS 0; TOXIC GRANULATION 0
--- NOTE | 2018-02-22 10:54 | PN ---
Progress Note, Physician Chief Complaint: Events noted Feels better Intermittent cough improved History of Present Illness: Patient was seen and examined. Awake and alert. Chart was reviewed Denies chest pain or palpitations Mild expiratory wheeze improved - Current Medication List Current Medications: Active Medications Acetaminophen (Tylenol -) 650 mg PO Q6H PRN PRN Reason: FEVER Last Admin: 02/19/18 21:19 Dose: 650 mg Al Hydroxide/Mg Hydroxide (Mylanta Oral Suspension -) 30 ml PO Q6H PRN PRN Reason: DYSPEPSIA Last Admin: 02/21/18 22:18 Dose: 30 ml Albuterol Sulfate (Ventolin 0.083% Nebulizer Soln -) 1 amp NEB Q4H PRN PRN Reason: SHORT OF BREATH/WHEEZING Last Admin: 02/21/18 06:30 Dose: 1 amp Albuterol Sulfate (Ventolin 0.083% Nebulizer Soln -) 1 amp NEB RQID [facility] Last Admin: 02/22/18 08:50 Dose: 1 amp Alprazolam (Xanax -) 0.25 mg PO HS PRN PRN Reason: ANXIETY Last Admin: 02/21/18 22:17 Dose: 0.25 mg Atorvastatin Calcium (Lipitor -) 80 mg PO HS [facility] Last Admin: 02/21/18 22:17 Dose: 80 mg Budesonide/Formoterol Fumarate (Symbicort 160/4.5mcg -) 2 puff IH BID [facility] Last Admin: 02/22/18 10:00 Dose: 2 puff Clopidogrel Bisulfate (Plavix -) 75 mg PO DAILY [facility] Last Admin: 02/22/18 10:04 Dose: 75 mg Docusate Sodium (Colace -) 300 mg PO HS [facility] Last Admin: 02/21/18 22:18 Dose: 300 mg Fluticasone Propionate (Flonase -) 1 spray NS BID [facility] Last Admin: 02/22/18 10:00 Dose: 1 spray Folic Acid (Folic Acid -) 1 mg PO DAILY [facility] Last Admin: 02/22/18 10:04 Dose: 1 mg Furosemide (Lasix -) 20 mg PO DAILY [facility] Last Admin: 02/22/18 10:04 Dose: 20 mg Guaifenesin (Robitussin Dm -) 10 ml PO Q6H PRN PRN Reason: COUGH Levofloxacin (Levaquin 500 Mg Premixed Ivpb -) 500 mg in 100 mls @ 100 mls/hr IVPB DAILY [facility]; Protocol Last Admin: 02/22/18 10:04 Dose: 100 mls/hr Insulin Aspart (Novolog Vial Sliding Scale -) 1 vial SQ AM [facility]; Protocol Last Admin: 02/22/18 06:09 Dose: Not Given Isosorbide Mononitrate (Imdur -) 30 mg PO BID [facility] Last Admin: 02/22/18 10:04 Dose: 30 mg Meclizine HCl (Antivert -) 12.5 mg PO Q6H PRN PRN Reason: VERTIGO Methylprednisolone Sodium Succinate (Solu-Medrol -) 40 mg IVPB Q8H [facility] Last Admin: 02/22/18 05:04 Dose: 40 mg Montelukast Sodium (Singulair -) 10 mg PO HS [facility] Last Admin: 02/21/18 22:17 Dose: 10 mg Nitroglycerin (Nitrostat -) 0.4 mg SL TID PRN PRN Reason: FOR CHEST PAIN Nystatin (Nystatin Oral Suspension -) 500,000 units PO Q6HPO [facility] Last Admin: 02/22/18 05:04 Dose: 500,000 units Pantoprazole Sodium (Protonix -) 40 mg PO DAILY [facility] Last Admin: 02/22/18 10:03 Dose: 40 mg Potassium Chloride (K-Dur -) 10 meq PO BID [facility] Last Admin: 02/22/18 10:03 Dose: 10 meq Ranitidine HCl (Zantac -) 150 mg PO DAILY [facility] Last Admin: 02/22/18 10:04 Dose: 150 mg Ranolazine (Ranexa -) 500 mg PO BID [facility] Last Admin: 02/22/18 10:04 Dose: 500 mg Tiotropium [place] (Spiriva Respimat) 2 puff IH DAILY [facility] Last Admin: 02/22/18 10:01 Dose: 2 puff Verapamil HCl (Calan Sr -) 240 mg PO BID [facility] Last Admin: 02/22/18 10:04 Dose: 240 mg - Objective Vital Signs: Vital Signs Temperature 97.6 F 02/22/18 09:54 Pulse Rate 70 02/22/18 09:54 Respiratory Rate 20 02/22/18 09:54 Blood Pressure 120/42 02/22/18 09:54 O2 Sat by Pulse Oximetry (%) 97 02/21/18 21:00 Eyes: Yes: PERRL HENT: Yes: Atraumatic Neck: Yes: Supple Cardiovascular: Yes: Regular Rate and Rhythm, S1, S2 Respiratory: Yes: Cough, Wheezes Gastrointestinal: Yes: Normal Bowel Sounds, Soft. No: Tenderness Edema: No Labs: CBC, BMP 02/22/18 06:10 02/22/18 06:10 Problem List - Problems (1) HTN (hypertension) Code(s): I10 - ESSENTIAL (PRIMARY) HYPERTENSION Qualifiers: Hypertension type: essential hypertension Qualified Code(s): I10 - Essential (primary) hypertension (2) Carotid stenosis Code(s): I65.29 - OCCLUSION AND STENOSIS OF UNSPECIFIED CAROTID ARTERY (3) H/O carotid endarterectomy Code(s): Z98.890 - OTHER SPECIFIED POSTPROCEDURAL STATES (4) ASHD (arteriosclerotic heart disease) Code(s): I25.10 - ATHSCL HEART DISEASE OF [place] CORONARY ARTERY W/O ANG PCTRS (5) COPD exacerbation Code(s): J44.1 - CHRONIC OBSTRUCTIVE PULMONARY DISEASE W (ACUTE) EXACERBATION (6) History of myocardial infarction Code(s): I25.2 - OLD MYOCARDIAL INFARCTION (7) Hyperlipidemia Code(s): E78.5 - HYPERLIPIDEMIA, UNSPECIFIED Qualifiers: Hyperlipidemia type: pure hypercholesterolemia Qualified Code(s): E78.00 - Pure hypercholesterolemia, unspecified; E78.0 - Pure hypercholesterolemia (8) Peripheral artery disease Code(s): I73.9 - PERIPHERAL VASCULAR DISEASE, UNSPECIFIED Assessment/Plan 1. Clinical presentation c/w acute exacerbation of COPD and probable pneumonia 2. Chronic diastolic LV dysfunction with class I-II NYHA classification heart failure 3. HTN 4. Hypercholesterolemia 5. Carotid stenosis s/p CEA 6. PVD post intervention 7. Mesenteric ischemia PLAN: 1. Steroids and bronchodilators. Continue empiric antibiotics 2. Continue Verapamil and Imdur 3. Continue Statin 4. Continue Plavix 5. Continue Ranexa 6. Continue Diuretics Present therapy. Clinically improving Gerard Nichols MD
--- NOTE | 2018-02-22 11:12 | PN ---
Progress Note (short form) - Note Progress Note: PULMONARY Still with shortness of breath, cough and wheezing. c/o increased nasal congestion and right paraspinal discomfort with coughing. Vital Signs Period Temp Pulse Resp BP Sys/Mann Pulse Ox Last 24 Hr 97.6 F-99.5 F 69-90 20-24 115-143/42-61 97 Gen: mildly tachypneic at rest Heart: RRR Lung: decreased air entry, + rhonchi, wheezes Abd: soft, nontender Ext: no edema CBC, BMP 02/22/18 06:10 02/22/18 06:10 Active Medications Acetaminophen (Tylenol -) 650 mg PO Q6H PRN PRN Reason: FEVER Last Admin: 02/19/18 21:19 Dose: 650 mg Al Hydroxide/Mg Hydroxide (Mylanta Oral Suspension -) 30 ml PO Q6H PRN PRN Reason: DYSPEPSIA Last Admin: 02/21/18 22:18 Dose: 30 ml Albuterol Sulfate (Ventolin 0.083% Nebulizer Soln -) 1 amp NEB Q4H PRN PRN Reason: SHORT OF BREATH/WHEEZING Last Admin: 02/21/18 06:30 Dose: 1 amp Albuterol Sulfate (Ventolin 0.083% Nebulizer Soln -) 1 amp NEB RQID [facility] Last Admin: 02/22/18 08:50 Dose: 1 amp Alprazolam (Xanax -) 0.25 mg PO HS PRN PRN Reason: ANXIETY Last Admin: 02/21/18 22:17 Dose: 0.25 mg Atorvastatin Calcium (Lipitor -) 80 mg PO [facility] Last Admin: 02/21/18 22:17 Dose: 80 mg Budesonide/Formoterol Fumarate (Symbicort 160/4.5mcg -) 2 puff IH BID [facility] Last Admin: 02/22/18 10:00 Dose: 2 puff Clopidogrel Bisulfate (Plavix -) 75 mg PO DAILY [facility] Last Admin: 02/22/18 10:04 Dose: 75 mg Docusate Sodium (Colace -) 300 mg PO HS [facility] Last Admin: 02/21/18 22:18 Dose: 300 mg Fluticasone Propionate (Flonase -) 1 spray NS BID [facility] Last Admin: 02/22/18 10:00 Dose: 1 spray Folic Acid (Folic Acid -) 1 mg PO DAILY [facility] Last Admin: 02/22/18 10:04 Dose: 1 mg Furosemide (Lasix -) 20 mg PO DAILY [facility] Last Admin: 02/22/18 10:04 Dose: 20 mg Guaifenesin (Robitussin Dm -) 10 ml PO Q6H PRN PRN Reason: COUGH Levofloxacin (Levaquin 500 Mg Premixed Ivpb -) 500 mg in 100 mls @ 100 mls/hr IVPB DAILY [facility]; Protocol Last Admin: 02/22/18 10:04 Dose: 100 mls/hr Insulin Aspart (Novolog Vial Sliding Scale -) 1 vial SQ AM [facility]; Protocol Last Admin: 02/22/18 06:09 Dose: Not Given Isosorbide Mononitrate (Imdur -) 30 mg PO BID [facility] Last Admin: 02/22/18 10:04 Dose: 30 mg Meclizine HCl (Antivert -) 12.5 mg PO Q6H PRN PRN Reason: VERTIGO Methylprednisolone Sodium Succinate (Solu-Medrol -) 40 mg IVPB Q8H [facility] Last Admin: 02/22/18 05:04 Dose: 40 mg Montelukast Sodium (Singulair -) 10 mg PO HS [facility] Last Admin: 02/21/18 22:17 Dose: 10 mg Nitroglycerin (Nitrostat -) 0.4 mg SL TID PRN PRN Reason: FOR CHEST PAIN Nystatin (Nystatin Oral Suspension -) 500,000 units PO Q6HPO [facility] Last Admin: 02/22/18 05:04 Dose: 500,000 units Pantoprazole Sodium (Protonix -) 40 mg PO DAILY [facility] Last Admin: 02/22/18 10:03 Dose: 40 mg Potassium Chloride (K-Dur -) 10 meq PO BID [facility] Last Admin: 02/22/18 10:03 Dose: 10 meq Ranitidine HCl (Zantac -) 150 mg PO DAILY [facility] Last Admin: 02/22/18 10:04 Dose: 150 mg Ranolazine (Ranexa -) 500 mg PO BID [facility] Last Admin: 02/22/18 10:04 Dose: 500 mg Tiotropium [place] (Spiriva Respimat) 2 puff IH DAILY [facility] Last Admin: 02/22/18 10:01 Dose: 2 puff Verapamil HCl (Calan Sr -) 240 mg PO BID [facility] Last Admin: 02/22/18 10:04 Dose: 240 mg A/P Acute COPD Exacerbation CAD LV Diastolic Dysfunction HTN Hyperlipidemia PAD - continue medrol at current dose - inhaled bronchodilators standing and PRN - flonase - will add on lidoderm patch - on empiric antibiotics - O2 to keep SpO2>90% - DVT prophylaxis
[2018-02-22] MEDS: LIDOCAINE 5% TOPICAL PATCH TP SCH (12:02)
[2018-02-22] MEDS: ATORVASTATIN CA 80 MG TABLET (FP) PO SCH (21:34)
[2018-02-22] MEDS: DOCUSATE SODIUM 100 MG CAPSULE (FP) PO SCH (21:34)
[2018-02-22] MEDS: MONTELUKAST NA 10 MG TABLET PO SCH (21:35)
[2018-02-22] MEDS: LIDOCAINE PATCH REMOVAL MC SCH (21:44)
[2018-02-22] MEDS: ALPRAZolam 0.25 MG TABLET PO PRN (21:52)
[2018-02-22] MEDS: MAG HYDROX/AL HYDROX/SIMETH 30 ML UNIT-DOSE CUP PO PRN (21:52)
[2018-02-23] MEDS: NYSTATIN 500,000 UNITS/5 ML SUSPENSION PO SCH ×5 (06:24→23:22)
[2018-02-23] MEDS: methylPREDNISolone NA SUCC 40 MG/1 ML VIAL IVPB SCH ×3 (06:36→21:20)
[2018-02-23] MEDS: INSULIN SLIDING SCALE (NOVOLOG) 1 VIAL SQ SCH (06:37)
[2018-02-23] MEDS: ALBUTEROL SO4 0.083% IH SOL 2.5 MG/3 ML VIAL.NEB. NEB SCH ×5 (09:00→20:42)
[2018-02-23] MEDS ORDERED: PT OWN MED DRAWER 7, Y5N ONE (09:23)
[2018-02-23] MEDS: RANOLAZINE E.R. 500 MG TABLET (FP) PO SCH ×2 (09:26→21:22)
[2018-02-23] MEDS: ISOSORBIDE MONONITRATE 30 MG TAB.SR.24H (FP) PO SCH ×2 (09:26→21:23)
[2018-02-23] MEDS: RANITIDINE HCL 150 MG TABLET (FP) PO SCH (09:26)
[2018-02-23] MEDS: FOLIC ACID 1 MG TABLET (FP) PO SCH (09:26)
[2018-02-23] MEDS: CLOPIDOGREL BISULFATE 75 MG TABLET (FP) PO SCH (09:26)
[2018-02-23] MEDS: FUROSEMIDE 20 MG TABLET (FP) PO SCH (09:26)
[2018-02-23] MEDS: POTASSIUM CHLORIDE TABS 10 MEQ TABLET.ER (FP) PO SCH ×2 (09:26→21:23)
[2018-02-23] MEDS: TIOTROPIUM BROMIDE 2.5 MCG (SPIRIVA) RESPIMAT INHALER IH SCH (09:27)
[2018-02-23] MEDS: FLUTICASONE PROP 0.05% 16 GM NASAL SPRAY NS SCH ×2 (09:27→21:21)
[2018-02-23] MEDS: BUDESONIDE/FORMETEROL FUMARATE 160/4.5 mcg INHALER IH SCH ×2 (09:27→21:21)
[2018-02-23] MEDS: PANTOPRAZOLE 40 MG TABLET (FP) PO SCH (09:28)
[2018-02-23] MEDS: VERAPAMIL HCL 240 MG E.R. TABLET (FP) PO SCH ×2 (09:28→21:22)
--- NOTE | 2018-02-23 09:28 | PN ---
Progress Note, Physician Chief Complaint: congested; on IV steroids and IV ATB - Current Medication List Current Medications: Active Medications Acetaminophen (Tylenol -) 650 mg PO Q6H PRN PRN Reason: FEVER Last Admin: 02/19/18 21:19 Dose: 650 mg Al Hydroxide/Mg Hydroxide (Mylanta Oral Suspension -) 30 ml PO Q6H PRN PRN Reason: DYSPEPSIA Last Admin: 02/22/18 21:52 Dose: 30 ml Albuterol Sulfate (Ventolin 0.083% Nebulizer Soln -) 1 amp NEB Q4H PRN PRN Reason: SHORT OF BREATH/WHEEZING Last Admin: 02/21/18 06:30 Dose: 1 amp Albuterol Sulfate (Ventolin 0.083% Nebulizer Soln -) 1 amp NEB RQID [facility] Last Admin: 02/23/18 09:06 Dose: 1 amp Alprazolam (Xanax -) 0.25 mg PO HS PRN PRN Reason: ANXIETY Last Admin: 02/22/18 21:52 Dose: 0.25 mg Atorvastatin Calcium (Lipitor -) 80 mg PO HS [facility] Last Admin: 02/22/18 21:34 Dose: 80 mg Budesonide/Formoterol Fumarate (Symbicort 160/4.5mcg -) 2 puff IH BID [facility] Last Admin: 02/22/18 21:35 Dose: 2 puff Clopidogrel Bisulfate (Plavix -) 75 mg PO DAILY [facility] Last Admin: 02/22/18 10:04 Dose: 75 mg Docusate Sodium (Colace -) 300 mg PO HS [facility] Last Admin: 02/22/18 21:34 Dose: 300 mg Fluticasone Propionate (Flonase -) 1 spray NS BID [facility] Last Admin: 02/22/18 21:35 Dose: 1 spray Folic Acid (Folic Acid -) 1 mg PO DAILY [facility] Last Admin: 02/22/18 10:04 Dose: 1 mg Furosemide (Lasix -) 20 mg PO DAILY [facility] Last Admin: 02/22/18 10:04 Dose: 20 mg Guaifenesin (Robitussin Dm -) 10 ml PO Q6H PRN PRN Reason: COUGH Levofloxacin (Levaquin 500 Mg Premixed Ivpb -) 500 mg in 100 mls @ 100 mls/hr IVPB DAILY [facility]; Protocol Last Admin: 02/22/18 10:04 Dose: 100 mls/hr Insulin Aspart (Novolog Vial Sliding Scale -) 1 vial SQ AM [facility]; Protocol Last Admin: 02/23/18 06:37 Dose: Not Given Isosorbide Mononitrate (Imdur -) 30 mg PO BID [facility] Last Admin: 02/22/18 21:35 Dose: 30 mg Lidocaine (Lidoderm Patch -) 1 patch TP DAILY [facility] Last Admin: 02/22/18 12:02 Dose: 1 patch Meclizine HCl (Antivert -) 12.5 mg PO Q6H PRN PRN Reason: VERTIGO Methylprednisolone Sodium Succinate (Solu-Medrol -) 40 mg IVPB Q8H [facility] Last Admin: 02/23/18 06:36 Dose: 40 mg Miscellaneous (Lidoderm Patch Removal) 1 each MC DAILY@2200 [facility] Last Admin: 02/22/18 21:44 Dose: 1 each Montelukast Sodium (Singulair -) 10 mg PO HS [facility] Last Admin: 02/22/18 21:35 Dose: 10 mg Nitroglycerin (Nitrostat -) 0.4 mg SL TID PRN PRN Reason: FOR CHEST PAIN Last Admin: 02/22/18 21:31 Dose: 0.4 mg Nystatin (Nystatin Oral Suspension -) 500,000 units PO Q6HPO [facility] Last Admin: 02/23/18 06:36 Dose: 500,000 units Pantoprazole Sodium (Protonix -) 40 mg PO DAILY [facility] Last Admin: 02/22/18 10:03 Dose: 40 mg Potassium Chloride (K-Dur -) 10 meq PO BID [facility] Last Admin: 02/22/18 21:34 Dose: 10 meq Ranitidine HCl (Zantac -) 150 mg PO DAILY [facility] Last Admin: 02/22/18 10:04 Dose: 150 mg Ranolazine (Ranexa -) 500 mg PO BID [facility] Last Admin: 02/22/18 21:35 Dose: 500 mg Tiotropium [place] (Spiriva Respimat) 2 puff IH DAILY [facility] Last Admin: 02/22/18 10:01 Dose: 2 puff Verapamil HCl (Calan Sr -) 240 mg PO BID [facility] Last Admin: 02/22/18 21:34 Dose: 240 mg - Objective Vital Signs: Vital Signs Temperature 97.7 F 02/23/18 09:20 Pulse Rate 81 02/23/18 09:20 Respiratory Rate 20 02/23/18 09:20 Blood Pressure 126/52 02/23/18 09:20 O2 Sat by Pulse Oximetry (%) 94 L 02/22/18 21:00 Constitutional: Yes: No Distress Eyes: Yes: Conjunctiva Clear HENT: Yes: Atraumatic Neck: Yes: Supple Cardiovascular: Yes: Regular Rate and Rhythm Respiratory: Yes: Wheezes Gastrointestinal: Yes: Soft. No: Tenderness Genitourinary: No: CVA Tenderness - Left, CVA Tenderness - Right Musculoskeletal: No: Joint Stiffness, Joint Swelling Extremities: No: Cold, Cool, Cyanosis Edema: No Integumentary: No: Rash, Venous Stasis Changes Neurological: Yes: WNL, Alert, Oriented ...Motor Strength: WNL Psychiatric: Yes: WNL, Alert, Oriented. No: Agitated, Suicidal Ideation Labs: CBC, BMP 02/22/18 06:10 02/22/18 06:10 INR, PTT INR 0.98 (0.82-1.09) 02/14/18 18:29 - ....Imaging Other: Report Reviewed Assessment/Plan Patient is a 62yo female with PMH of [place] s/p angioplasty, carotid endarterectomy , COPD admitted with acute URI/ pneumonia and COPD exacerbation IV steroids per PULM , continue nebs, IV antibiotics; cough syrup prn noted chest CT; will need pulm f/u after DC carotid US c/w bilat stenosis > 70% - vascular sx f/u outpt cardiology and pulmonary f/u general surgery f/u outpt for hernias f/u labs gastric PFX while on steroids BGM check while on steroids prn xanax for insomnia and anxiety; falls PFX
[2018-02-23] MEDS: LIDOCAINE 5% TOPICAL PATCH TP SCH (09:30)
[2018-02-23] MEDS ORDERED: FLUCONAZOLE 150 MG TABLET PO ONE (13:00)
--- NOTE | 2018-02-23 13:12 | PN ---
Progress Note, Physician History of Present Illness: Dyspnea, productive cough and wheeze slowly improving. - Current Medication List Current Medications: Active Medications Acetaminophen (Tylenol -) 650 mg PO Q6H PRN PRN Reason: FEVER Last Admin: 02/19/18 21:19 Dose: 650 mg Al Hydroxide/Mg Hydroxide (Mylanta Oral Suspension -) 30 ml PO Q6H PRN PRN Reason: DYSPEPSIA Last Admin: 02/22/18 21:52 Dose: 30 ml Albuterol Sulfate (Ventolin 0.083% Nebulizer Soln -) 1 amp NEB Q4H PRN PRN Reason: SHORT OF BREATH/WHEEZING Last Admin: 02/21/18 06:30 Dose: 1 amp Albuterol Sulfate (Ventolin 0.083% Nebulizer Soln -) 1 amp NEB RQID [facility] Last Admin: 02/23/18 11:07 Dose: 1 amp Alprazolam (Xanax -) 0.25 mg PO BID PRN PRN Reason: *FOR ANXIETY* Atorvastatin Calcium (Lipitor -) 80 mg PO [facility] Last Admin: 02/22/18 21:34 Dose: 80 mg Budesonide/Formoterol Fumarate (Symbicort 160/4.5mcg -) 2 puff IH BID [facility] Last Admin: 02/23/18 09:27 Dose: 2 puff Clopidogrel Bisulfate (Plavix -) 75 mg PO DAILY [facility] Last Admin: 02/23/18 09:26 Dose: 75 mg Docusate Sodium (Colace -) 300 mg PO [facility] Last Admin: 02/22/18 21:34 Dose: 300 mg Fluticasone Propionate (Flonase -) 1 spray NS BID [facility] Last Admin: 02/23/18 09:27 Dose: 1 spray Folic Acid (Folic Acid -) 1 mg PO DAILY [facility] Last Admin: 02/23/18 09:26 Dose: 1 mg Furosemide (Lasix -) 20 mg PO DAILY [facility] Last Admin: 02/23/18 09:26 Dose: 20 mg Guaifenesin (Robitussin Dm -) 10 ml PO Q6H PRN PRN Reason: COUGH Levofloxacin (Levaquin 500 Mg Premixed Ivpb -) 500 mg in 100 mls @ 100 mls/hr IVPB DAILY [facility]; Protocol Last Admin: 02/23/18 09:28 Dose: 100 mls/hr Insulin Aspart (Novolog Vial Sliding Scale -) 1 vial SQ AM [facility]; Protocol Last Admin: 02/23/18 06:37 Dose: Not Given Isosorbide Mononitrate (Imdur -) 30 mg PO BID [facility] Last Admin: 02/23/18 09:26 Dose: 30 mg Lidocaine (Lidoderm Patch -) 1 patch TP DAILY [facility] Last Admin: 02/23/18 09:30 Dose: 1 patch Meclizine HCl (Antivert -) 12.5 mg PO Q6H PRN PRN Reason: VERTIGO Methylprednisolone Sodium Succinate (Solu-Medrol -) 40 mg IVPB Q8H [facility] Last Admin: 02/23/18 06:36 Dose: 40 mg Miscellaneous (Lidoderm Patch Removal) 1 each MC DAILY@2200 [facility] Last Admin: 02/22/18 21:44 Dose: 1 each Montelukast Sodium (Singulair -) 10 mg PO HS [facility] Last Admin: 02/22/18 21:35 Dose: 10 mg Nitroglycerin (Nitrostat -) 0.4 mg SL TID PRN PRN Reason: FOR CHEST PAIN Last Admin: 02/22/18 21:31 Dose: 0.4 mg Nystatin (Nystatin Oral Suspension -) 500,000 units PO Q6HPO [facility] Last Admin: 02/23/18 12:23 Dose: 500,000 units Nystatin (Mycostatin Cream -) 1 applic TP BID [facility] Pantoprazole Sodium (Protonix -) 40 mg PO DAILY [facility] Last Admin: 02/23/18 09:28 Dose: 40 mg Potassium Chloride (K-Dur -) 10 meq PO BID [facility] Last Admin: 02/23/18 09:26 Dose: 10 meq Ranitidine HCl (Zantac -) 150 mg PO DAILY [facility] Last Admin: 02/23/18 09:26 Dose: 150 mg Ranolazine (Ranexa -) 500 mg PO BID [facility] Last Admin: 02/23/18 09:26 Dose: 500 mg Tiotropium [place] (Spiriva Respimat) 2 puff IH DAILY [facility] Last Admin: 02/23/18 09:27 Dose: 2 puff Verapamil HCl (Calan Sr -) 240 mg PO BID [facility] Last Admin: 02/23/18 09:28 Dose: 240 mg - Objective Vital Signs: Vital Signs Temperature 97.7 F 02/23/18 09:20 Pulse Rate 81 02/23/18 09:20 Respiratory Rate 20 02/23/18 09:20 Blood Pressure 126/52 02/23/18 09:20 O2 Sat by Pulse Oximetry (%) 94 L 02/23/18 09:00 Constitutional: Yes: No Distress, Calm Neck: Yes: Supple Cardiovascular: Yes: Regular Rate and Rhythm Respiratory: Yes: Regular, Cough, Diminished, On Nasal O2, SOB, Wheezes Gastrointestinal: Yes: Normal Bowel Sounds, Soft Edema: No Labs: CBC, BMP 02/22/18 06:10 02/22/18 06:10 INR, PTT INR 0.98 (0.82-1.09) 02/14/18 18:29 Problem List - Problems (1) H/O carotid endarterectomy Code(s): Z98.890 - OTHER SPECIFIED POSTPROCEDURAL STATES (2) COPD exacerbation Code(s): J44.1 - CHRONIC OBSTRUCTIVE PULMONARY DISEASE W (ACUTE) EXACERBATION (3) Coronary artery disease Code(s): I25.10 - ATHSCL HEART DISEASE OF [place] CORONARY ARTERY W/O ANG PCTRS Qualifiers: Coronary Disease-Associated Artery/Lesion type: [place] artery [place] vs. 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 AE COPD 2. CAD s/p NC, angina pectorus 3. Diastolic dysfunction 4. HTN/HCVD 5. Hyperlipidemia 6. Bilateral carotid artery disease post right CEA 7. Mesenteric ischemia post intervention 8. PAD post intervention P:1. BD, IV steroids with GI protection, empiric abx, Singulair, O2 as needed 2. Continue Verapamil SR 240 mg BID, Imdur 30 mg BID and Ranexa 500 mg BID 3. Continue Lipitor 80 mg QHS, Lasix 20 mg QD and Plavix 75 qd 4. 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 CTA carotids per vascular input
[2018-02-23] MEDS: NYSTATIN 100,000 UNIT/GM TOPICAL CREAM 15 GM TUBE TP SCH ×2 (14:16→21:24)
--- NOTE | 2018-02-23 15:00 | PN ---
Progress Note, Physician History of Present Illness: pulmonary alert, still congested,+ sob - Current Medication List Current Medications: Active Medications Acetaminophen (Tylenol -) 650 mg PO Q6H PRN PRN Reason: FEVER Last Admin: 02/19/18 21:19 Dose: 650 mg Al Hydroxide/Mg Hydroxide (Mylanta Oral Suspension -) 30 ml PO Q6H PRN PRN Reason: DYSPEPSIA Last Admin: 02/22/18 21:52 Dose: 30 ml Albuterol Sulfate (Ventolin 0.083% Nebulizer Soln -) 1 amp NEB Q4H PRN PRN Reason: SHORT OF BREATH/WHEEZING Last Admin: 02/21/18 06:30 Dose: 1 amp Albuterol Sulfate (Ventolin 0.083% Nebulizer Soln -) 1 amp NEB RQID [facility] Last Admin: 02/23/18 11:07 Dose: 1 amp Alprazolam (Xanax -) 0.25 mg PO BID PRN PRN Reason: *FOR ANXIETY* Atorvastatin Calcium (Lipitor -) 80 mg PO [facility] Last Admin: 02/22/18 21:34 Dose: 80 mg Budesonide/Formoterol Fumarate (Symbicort 160/4.5mcg -) 2 puff IH BID [facility] Last Admin: 02/23/18 09:27 Dose: 2 puff Clopidogrel Bisulfate (Plavix -) 75 mg PO DAILY [facility] Last Admin: 02/23/18 09:26 Dose: 75 mg Docusate Sodium (Colace -) 300 mg PO HS [facility] Last Admin: 02/22/18 21:34 Dose: 300 mg Fluticasone Propionate (Flonase -) 1 spray NS BID [facility] Last Admin: 02/23/18 09:27 Dose: 1 spray Folic Acid (Folic Acid -) 1 mg PO DAILY [facility] Last Admin: 02/23/18 09:26 Dose: 1 mg Furosemide (Lasix -) 20 mg PO DAILY [facility] Last Admin: 02/23/18 09:26 Dose: 20 mg Guaifenesin (Robitussin Dm -) 10 ml PO Q6H PRN PRN Reason: COUGH Levofloxacin (Levaquin 500 Mg Premixed Ivpb -) 500 mg in 100 mls @ 100 mls/hr IVPB DAILY [facility]; Protocol Last Admin: 02/23/18 09:28 Dose: 100 mls/hr Insulin Aspart (Novolog Vial Sliding Scale -) 1 vial SQ AM [facility]; Protocol Last Admin: 02/23/18 06:37 Dose: Not Given Isosorbide Mononitrate (Imdur -) 30 mg PO BID [facility] Last Admin: 02/23/18 09:26 Dose: 30 mg Lidocaine (Lidoderm Patch -) 1 patch TP DAILY [facility] Last Admin: 02/23/18 09:30 Dose: 1 patch Meclizine HCl (Antivert -) 12.5 mg PO Q6H PRN PRN Reason: VERTIGO Methylprednisolone Sodium Succinate (Solu-Medrol -) 40 mg IVPB Q8H [facility] Last Admin: 02/23/18 06:36 Dose: 40 mg Miscellaneous (Lidoderm Patch Removal) 1 each MC DAILY@2200 [facility] Last Admin: 02/22/18 21:44 Dose: 1 each Montelukast Sodium (Singulair -) 10 mg PO HS [facility] Last Admin: 02/22/18 21:35 Dose: 10 mg Nitroglycerin (Nitrostat -) 0.4 mg SL TID PRN PRN Reason: FOR CHEST PAIN Last Admin: 02/22/18 21:31 Dose: 0.4 mg Nystatin (Nystatin Oral Suspension -) 500,000 units PO Q6HPO [facility] Last Admin: 02/23/18 12:23 Dose: 500,000 units Nystatin (Mycostatin Cream -) 1 applic TP BID [facility] Last Admin: 02/23/18 14:16 Dose: 1 applic Pantoprazole Sodium (Protonix -) 40 mg PO DAILY [facility] Last Admin: 02/23/18 09:28 Dose: 40 mg Potassium Chloride (K-Dur -) 10 meq PO BID [facility] Last Admin: 02/23/18 09:26 Dose: 10 meq Ranitidine HCl (Zantac -) 150 mg PO DAILY [facility] Last Admin: 02/23/18 09:26 Dose: 150 mg Ranolazine (Ranexa -) 500 mg PO BID [facility] Last Admin: 02/23/18 09:26 Dose: 500 mg Tiotropium [place] (Spiriva Respimat) 2 puff IH DAILY [facility] Last Admin: 02/23/18 09:27 Dose: 2 puff Verapamil HCl (Calan Sr -) 240 mg PO BID [facility] Last Admin: 02/23/18 09:28 Dose: 240 mg - Objective Vital Signs: Vital Signs Temperature 97.7 F 02/23/18 09:20 Pulse Rate 81 02/23/18 09:20 Respiratory Rate 20 02/23/18 09:20 Blood Pressure 126/52 02/23/18 09:20 O2 Sat by Pulse Oximetry (%) 94 L 02/23/18 09:00 Constitutional: Yes: Well Nourished, Calm Eyes: Yes: WNL HENT: Yes: WNL Neck: Yes: WNL Cardiovascular: Yes: Regular Rate and Rhythm, S1, S2 Respiratory: Yes: Rhonchi (scattered bi wheezes and rhonchi), Wheezes Gastrointestinal: Yes: Normal Bowel Sounds, Soft Extremities: Yes: WNL Edema: No Labs: CBC, BMP Problem List - Problems (1) ASHD (arteriosclerotic heart disease) Code(s): I25.10 - ATHSCL HEART DISEASE OF [place] CORONARY ARTERY W/O ANG PCTRS (2) Anemia Code(s): D64.9 - ANEMIA, UNSPECIFIED (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 transplanted heart: [place] heart Associated angina: without angina Qualified Code(s): I25.10 - Atherosclerotic heart disease of [place] coronary artery without angina pectoris (6) History of myocardial infarction Code(s): I25.2 - OLD MYOCARDIAL INFARCTION (7) Peripheral artery disease Code(s): I73.9 - PERIPHERAL VASCULAR DISEASE, UNSPECIFIED Assessment/Plan IMP DYSPNEA COPD EXACERBATION ASHD S/P IA LV DIASTOLIC DYSFUNCTION HTN PVD GERD BARRETTS CAROTID ARTERY DISEASE PLAN IV STEROIDS INHALED BRONCHODILATORS O2 ABX ZITHROMAX 250mg DAILY ANTI-INFLAMMATORY PFTS DR LEÓN Problem List - Problems (1) ASHD (arteriosclerotic heart disease) Code(s): I25.10 - ATHSCL HEART DISEASE OF [place] CORONARY ARTERY W/O ANG PCTRS (2) Anemia Code(s): D64.9 - ANEMIA, UNSPECIFIED (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 transplanted heart: [place] heart Associated angina: without angina Qualified Code(s): I25.10 - Atherosclerotic heart disease of [place] coronary artery without angina pectoris (6) History of myocardial infarction Code(s): I25.2 - OLD MYOCARDIAL INFARCTION (7) Peripheral artery disease Code(s): I73.9 - PERIPHERAL VASCULAR DISEASE, UNSPECIFIED
[2018-02-23] MEDS: MAG HYDROX/AL HYDROX/SIMETH 30 ML UNIT-DOSE CUP PO PRN (21:21)
[2018-02-23] MEDS: DOCUSATE SODIUM 100 MG CAPSULE (FP) PO SCH (21:22)
[2018-02-23] MEDS: MONTELUKAST NA 10 MG TABLET PO SCH (21:22)
[2018-02-23] MEDS: ATORVASTATIN CA 80 MG TABLET (FP) PO SCH (21:23)
[2018-02-23] MEDS: ALPRAZolam 0.25 MG TABLET PO PRN (21:23)
[2018-02-23] MEDS: LIDOCAINE PATCH REMOVAL MC SCH (21:24)
[2018-02-24] MEDS: methylPREDNISolone NA SUCC 40 MG/1 ML VIAL IVPB SCH ×4 (02:52→21:19)
[2018-02-24] MEDS: ALBUTEROL SO4 0.083% IH SOL 2.5 MG/3 ML VIAL.NEB. NEB PRN (05:37)
[2018-02-24] MEDS: NYSTATIN 500,000 UNITS/5 ML SUSPENSION PO SCH ×3 (07:07→18:25)
[2018-02-24] MEDS: INSULIN SLIDING SCALE (NOVOLOG) 1 VIAL SQ SCH (07:09)
[2018-02-24 07:12] LABS: BASO % 0.1 % (0-2.0); HEMATOCRIT 39.8 % (32.4-45.2); LYMPH % 3.6 % (8-40); MCH 29.1 pg (25.7-33.7); MCHC 32.6 g/dl (32.0-36.0); MEAN PLT VOLUME 6.8 fl (7.5-11.1); MONO % 2.1 % (3.8-10.2); NEUT % 94.2 % (42.8-82.8); PLATELET COUNT 281 K/MM3 (134-434); RBC 4.47 M/mm3 (3.60-5.2); WHITE BLOOD COUNT 14.2 K/mm3 (4.0-10.0)
[2018-02-24 07:30] LABS: ALK PHOS 64 U/L (45-117); ANION GAP 5 (8-16); BILIRUBIN,TOTAL 0.3 mg/dL (0.2-1.0); BLOOD UREA NITROGEN 20 mg/dL (7-18); CALCIUM 8.6 mg/dL (8.5-10.1); CHLORIDE 96 mmol/L (98-107); CO2 35 mmol/L (21-32); CREATININE 0.7 mg/dL (0.55-1.02); GLUCOSE,RANDOM 138 mg/dL (74-106); POTASSIUM 4.8 mmol/L (3.5-5.1); SGOT/AST 7 U/L (15-37); SGPT/ALT 29 U/L (12-78); SODIUM 136 mmol/L (136-145); TOT PROT 5.6 g/dl (6.4-8.2)
[2018-02-24] MEDS: ALBUTEROL SO4 0.083% IH SOL 2.5 MG/3 ML VIAL.NEB. NEB SCH ×4 (07:30→20:12)
--- NOTE | 2018-02-24 08:33 | PN ---
Progress Note, Physician Chief Complaint: still coughing; tight - Current Medication List Current Medications: Active Medications Acetaminophen (Tylenol -) 650 mg PO Q6H PRN PRN Reason: FEVER Last Admin: 02/19/18 21:19 Dose: 650 mg Al Hydroxide/Mg Hydroxide (Mylanta Oral Suspension -) 30 ml PO Q6H PRN PRN Reason: DYSPEPSIA Last Admin: 02/23/18 21:21 Dose: 30 ml Albuterol Sulfate (Ventolin 0.083% Nebulizer Soln -) 1 amp NEB Q4H PRN PRN Reason: SHORT OF BREATH/WHEEZING Last Admin: 02/24/18 05:37 Dose: 1 amp Albuterol Sulfate (Ventolin 0.083% Nebulizer Soln -) 1 amp NEB RQID [facility] Last Admin: 02/24/18 07:30 Dose: Not Given Alprazolam (Xanax -) 0.25 mg PO BID PRN PRN Reason: *FOR ANXIETY* Last Admin: 02/23/18 21:23 Dose: 0.25 mg Atorvastatin Calcium (Lipitor -) 80 mg PO [facility] Last Admin: 02/23/18 21:23 Dose: 80 mg Budesonide/Formoterol Fumarate (Symbicort 160/4.5mcg -) 2 puff IH BID [facility] Last Admin: 02/23/18 21:21 Dose: 2 puff Clopidogrel Bisulfate (Plavix -) 75 mg PO DAILY [facility] Last Admin: 02/23/18 09:26 Dose: 75 mg Docusate Sodium (Colace -) 300 mg PO [facility] Last Admin: 02/23/18 21:22 Dose: 300 mg Fluticasone Propionate (Flonase -) 1 spray NS BID [facility] Last Admin: 02/23/18 21:21 Dose: 1 spray Folic Acid (Folic Acid -) 1 mg PO DAILY [facility] Last Admin: 02/23/18 09:26 Dose: 1 mg Furosemide (Lasix -) 20 mg PO DAILY [facility] Last Admin: 02/23/18 09:26 Dose: 20 mg Guaifenesin (Robitussin Dm -) 10 ml PO Q6H PRN PRN Reason: COUGH Levofloxacin (Levaquin 500 Mg Premixed Ivpb -) 500 mg in 100 mls @ 100 mls/hr IVPB DAILY [facility]; Protocol Last Admin: 02/23/18 09:28 Dose: 100 mls/hr Insulin Aspart (Novolog Vial Sliding Scale -) 1 vial SQ AM [facility]; Protocol Last Admin: 02/24/18 07:09 Dose: Not Given Isosorbide Mononitrate (Imdur -) 30 mg PO BID [facility] Last Admin: 02/23/18 21:23 Dose: 30 mg Lidocaine (Lidoderm Patch -) 1 patch TP DAILY [facility] Last Admin: 02/23/18 09:30 Dose: 1 patch Meclizine HCl (Antivert -) 12.5 mg PO Q6H PRN PRN Reason: VERTIGO Methylprednisolone Sodium Succinate (Solu-Medrol -) 40 mg IVPB Q6H-IV [facility] Last Admin: 02/24/18 02:52 Dose: 40 mg Miscellaneous (Lidoderm Patch Removal) 1 each MC DAILY@2200 [facility] Last Admin: 02/23/18 21:24 Dose: 1 each Montelukast Sodium (Singulair -) 10 mg PO HS [facility] Last Admin: 02/23/18 21:22 Dose: 10 mg Nitroglycerin (Nitrostat -) 0.4 mg SL TID PRN PRN Reason: FOR CHEST PAIN Last Admin: 02/22/18 21:31 Dose: 0.4 mg Nystatin (Nystatin Oral Suspension -) 500,000 units PO Q6HPO [facility] Last Admin: 02/24/18 07:07 Dose: 500,000 units Nystatin (Mycostatin Cream -) 1 applic TP BID [facility] Last Admin: 02/23/18 21:24 Dose: 1 applic Pantoprazole Sodium (Protonix -) 40 mg PO DAILY [facility] Last Admin: 02/23/18 09:28 Dose: 40 mg Potassium Chloride (K-Dur -) 10 meq PO BID [facility] Last Admin: 02/23/18 21:23 Dose: 10 meq Ranitidine HCl (Zantac -) 150 mg PO DAILY [facility] Last Admin: 02/23/18 09:26 Dose: 150 mg Ranolazine (Ranexa -) 500 mg PO BID [facility] Last Admin: 02/23/18 21:22 Dose: 500 mg Tiotropium [place] (Spiriva Respimat) 2 puff IH DAILY [facility] Last Admin: 02/23/18 09:27 Dose: 2 puff Verapamil HCl (Calan Sr -) 240 mg PO BID [facility] Last Admin: 02/23/18 21:22 Dose: 240 mg - Objective Vital Signs: Vital Signs Temperature 98.0 F 02/24/18 06:00 Pulse Rate 68 02/24/18 06:00 Respiratory Rate 20 02/24/18 06:00 Blood Pressure 120/53 02/24/18 06:00 O2 Sat by Pulse Oximetry (%) 95 02/23/18 21:00 Constitutional: Yes: No Distress Eyes: Yes: Conjunctiva Clear HENT: Yes: Atraumatic Neck: Yes: Supple Cardiovascular: Yes: Regular Rate and Rhythm Respiratory: Yes: Wheezes Gastrointestinal: Yes: Soft. No: Tenderness Genitourinary: No: CVA Tenderness - Left, CVA Tenderness - Right Musculoskeletal: No: Joint Stiffness, Joint Swelling Extremities: No: Cold, Cool, Cyanosis Edema: No Integumentary: No: Rash, Venous Stasis Changes Neurological: Yes: WNL, Alert, Oriented ...Motor Strength: WNL Psychiatric: Yes: WNL, Alert, Oriented. No: Agitated Labs: CBC, BMP 02/24/18 06:05 02/24/18 06:05 INR, PTT INR 0.98 (0.82-1.09) 02/14/18 18:29 - ....Imaging Other: Report Reviewed Assessment/Plan Patient is a 62yo female with PMH of [place] s/p angioplasty, carotid endarterectomy , COPD admitted with acute URI/ pneumonia and COPD exacerbation IV steroids per PULM , continue nebs, IV antibiotics; cough syrup prn cardiology and pulmonary f/u f/u labs gastric PFX while on steroids BGM check while on steroids prn xanax for insomnia and anxiety; falls PFX
[2018-02-24 10:02] LABS: ACANTHOCYTES 0; ANISOCYTOSIS 0; HELMET CELLS 0; HOWELL-JOLLY BODIES 0; MACROCYTOSIS 0; OVALOCYTE 0; PLATELET ESTIMATE NORMAL; ROULEAU 0; SICKELED CELLS 0; TARGET CELLS 0; TEAR DROP CELLS 0; TOXIC GRANULATION 0
[2018-02-24] MEDS ORDERED: PT OWN MED DRAWER 7, Y5N ONE ×2 (10:38→13:19)
--- NOTE | 2018-02-24 10:51 | PN ---
Progress Note (short form) - Note Progress Note: PULMONARY Starting to feel better, breathing easier. Still with cough and wheezes. Vital Signs Period Temp Pulse Resp BP Sys/Mann Pulse Ox Last 24 Hr 97.4 F-98.0 F 67-78 19-24 112-156/53-63 95 Gen: less tachypneic at rest Heart: RRR Lung: better air entry, + rhonchi, wheezes Abd: soft, nontender Ext: no edema CBC, BMP 02/24/18 06:05 02/24/18 06:05 Active Medications Acetaminophen (Tylenol -) 650 mg PO Q6H PRN PRN Reason: FEVER Last Admin: 02/19/18 21:19 Dose: 650 mg Al Hydroxide/Mg Hydroxide (Mylanta Oral Suspension -) 30 ml PO Q6H PRN PRN Reason: DYSPEPSIA Last Admin: 02/23/18 21:21 Dose: 30 ml Albuterol Sulfate (Ventolin 0.083% Nebulizer Soln -) 1 amp NEB Q4H PRN PRN Reason: SHORT OF BREATH/WHEEZING Last Admin: 02/24/18 05:37 Dose: 1 amp Albuterol Sulfate (Ventolin 0.083% Nebulizer Soln -) 1 amp NEB RQID [facility] Last Admin: 02/24/18 07:30 Dose: Not Given Alprazolam (Xanax -) 0.25 mg PO BID PRN PRN Reason: *FOR ANXIETY* Last Admin: 02/23/18 21:23 Dose: 0.25 mg Atorvastatin Calcium (Lipitor -) 80 mg PO [facility] Last Admin: 02/23/18 21:23 Dose: 80 mg Budesonide/Formoterol Fumarate (Symbicort 160/4.5mcg -) 2 puff IH BID [facility] Last Admin: 02/23/18 21:21 Dose: 2 puff Clopidogrel Bisulfate (Plavix -) 75 mg PO DAILY [facility] Last Admin: 02/23/18 09:26 Dose: 75 mg Docusate Sodium (Colace -) 300 mg PO [facility] Last Admin: 02/23/18 21:22 Dose: 300 mg Fluticasone Propionate (Flonase -) 1 spray NS BID [facility] Last Admin: 02/23/18 21:21 Dose: 1 spray Folic Acid (Folic Acid -) 1 mg PO DAILY [facility] Last Admin: 02/23/18 09:26 Dose: 1 mg Furosemide (Lasix -) 20 mg PO DAILY [facility] Last Admin: 02/23/18 09:26 Dose: 20 mg Guaifenesin (Robitussin Dm -) 10 ml PO Q6H PRN PRN Reason: COUGH Levofloxacin (Levaquin 500 Mg Premixed Ivpb -) 500 mg in 100 mls @ 100 mls/hr IVPB DAILY [facility]; Protocol Last Admin: 02/23/18 09:28 Dose: 100 mls/hr Insulin Aspart (Novolog Vial Sliding Scale -) 1 vial SQ AM [facility]; Protocol Last Admin: 02/24/18 07:09 Dose: Not Given Isosorbide Mononitrate (Imdur -) 30 mg PO BID [facility] Last Admin: 02/23/18 21:23 Dose: 30 mg Lidocaine (Lidoderm Patch -) 1 patch TP DAILY [facility] Last Admin: 02/23/18 09:30 Dose: 1 patch Meclizine HCl (Antivert -) 12.5 mg PO Q6H PRN PRN Reason: VERTIGO Methylprednisolone Sodium Succinate (Solu-Medrol -) 40 mg IVPB Q6H-IV [facility] Last Admin: 02/24/18 02:52 Dose: 40 mg Miscellaneous (Lidoderm Patch Removal) 1 each MC DAILY@2200 [facility] Last Admin: 02/23/18 21:24 Dose: 1 each Montelukast Sodium (Singulair -) 10 mg PO HS [facility] Last Admin: 02/23/18 21:22 Dose: 10 mg Nitroglycerin (Nitrostat -) 0.4 mg SL TID PRN PRN Reason: FOR CHEST PAIN Last Admin: 02/22/18 21:31 Dose: 0.4 mg Nystatin (Nystatin Oral Suspension -) 500,000 units PO Q6HPO [facility] Last Admin: 02/24/18 07:07 Dose: 500,000 units Nystatin (Mycostatin Cream -) 1 applic TP BID [facility] Last Admin: 02/23/18 21:24 Dose: 1 applic Pantoprazole Sodium (Protonix -) 40 mg PO DAILY [facility] Last Admin: 02/23/18 09:28 Dose: 40 mg Potassium Chloride (K-Dur -) 10 meq PO BID [facility] Last Admin: 02/23/18 21:23 Dose: 10 meq Ranitidine HCl (Zantac -) 150 mg PO DAILY [facility] Last Admin: 02/23/18 09:26 Dose: 150 mg Ranolazine (Ranexa -) 500 mg PO BID [facility] Last Admin: 02/23/18 21:22 Dose: 500 mg Tiotropium [place] (Spiriva Respimat) 2 puff IH DAILY [facility] Last Admin: 02/23/18 09:27 Dose: 2 puff Verapamil HCl (Calan Sr -) 240 mg PO BID [facility] Last Admin: 02/23/18 21:22 Dose: 240 mg A/P Acute COPD Exacerbation CAD LV Diastolic Dysfunction HTN Hyperlipidemia PAD - continue medrol at current dose - can start to taper in AM if continues to improve - inhaled bronchodilators standing and PRN - flonase - on empiric antibiotics - O2 to keep SpO2>90% - DVT prophylaxis
[2018-02-24] MEDS: CLOPIDOGREL BISULFATE 75 MG TABLET (FP) PO SCH (10:59)
[2018-02-24] MEDS: VERAPAMIL HCL 240 MG E.R. TABLET (FP) PO SCH ×2 (10:59→21:20)
[2018-02-24] MEDS: POTASSIUM CHLORIDE TABS 10 MEQ TABLET.ER (FP) PO SCH ×2 (10:59→21:20)
[2018-02-24] MEDS: FUROSEMIDE 20 MG TABLET (FP) PO SCH (10:59)
[2018-02-24] MEDS: ALPRAZolam 0.25 MG TABLET PO PRN ×2 (10:59→21:33)
[2018-02-24] MEDS: RANOLAZINE E.R. 500 MG TABLET (FP) PO SCH ×2 (11:00→21:20)
[2018-02-24] MEDS: RANITIDINE HCL 150 MG TABLET (FP) PO SCH (11:00)
[2018-02-24] MEDS: ISOSORBIDE MONONITRATE 30 MG TAB.SR.24H (FP) PO SCH ×2 (11:00→21:20)
[2018-02-24] MEDS: TIOTROPIUM BROMIDE 2.5 MCG (SPIRIVA) RESPIMAT INHALER IH SCH (11:00)
[2018-02-24] MEDS: LIDOCAINE 5% TOPICAL PATCH TP SCH (11:00)
[2018-02-24] MEDS: FOLIC ACID 1 MG TABLET (FP) PO SCH (11:00)
[2018-02-24] MEDS: FLUTICASONE PROP 0.05% 16 GM NASAL SPRAY NS SCH ×2 (11:01→21:19)
[2018-02-24] MEDS: BUDESONIDE/FORMETEROL FUMARATE 160/4.5 mcg INHALER IH SCH ×2 (11:01→21:19)
[2018-02-24] MEDS: PANTOPRAZOLE 40 MG TABLET (FP) PO SCH (11:02)
[2018-02-24] MEDS: NYSTATIN 100,000 UNIT/GM TOPICAL CREAM 15 GM TUBE TP SCH ×2 (11:03→22:23)
--- NOTE | 2018-02-24 12:34 | PN ---
Progress Note, Physician History of Present Illness: Dyspnea, productive cough and wheeze slowly improving. - Current Medication List Current Medications: Active Medications Acetaminophen (Tylenol -) 650 mg PO Q6H PRN PRN Reason: FEVER Last Admin: 02/19/18 21:19 Dose: 650 mg Al Hydroxide/Mg Hydroxide (Mylanta Oral Suspension -) 30 ml PO Q6H PRN PRN Reason: DYSPEPSIA Last Admin: 02/23/18 21:21 Dose: 30 ml Albuterol Sulfate (Ventolin 0.083% Nebulizer Soln -) 1 amp NEB Q4H PRN PRN Reason: SHORT OF BREATH/WHEEZING Last Admin: 02/24/18 05:37 Dose: 1 amp Albuterol Sulfate (Ventolin 0.083% Nebulizer Soln -) 1 amp NEB RQID [facility] Last Admin: 02/24/18 11:35 Dose: 1 amp Alprazolam (Xanax -) 0.25 mg PO BID PRN PRN Reason: *FOR ANXIETY* Last Admin: 02/24/18 10:59 Dose: 0.25 mg Atorvastatin Calcium (Lipitor -) 80 mg PO [facility] Last Admin: 02/23/18 21:23 Dose: 80 mg Budesonide/Formoterol Fumarate (Symbicort 160/4.5mcg -) 2 puff IH BID [facility] Last Admin: 02/24/18 11:01 Dose: 2 puff Clopidogrel Bisulfate (Plavix -) 75 mg PO DAILY [facility] Last Admin: 02/24/18 10:59 Dose: 75 mg Docusate Sodium (Colace -) 300 mg PO [facility] Last Admin: 02/23/18 21:22 Dose: 300 mg Fluticasone Propionate (Flonase -) 1 spray NS BID [facility] Last Admin: 02/24/18 11:01 Dose: 1 spray Folic Acid (Folic Acid -) 1 mg PO DAILY [facility] Last Admin: 02/24/18 11:00 Dose: 1 mg Furosemide (Lasix -) 20 mg PO DAILY [facility] Last Admin: 02/24/18 10:59 Dose: 20 mg Guaifenesin (Robitussin Dm -) 10 ml PO Q6H PRN PRN Reason: COUGH Levofloxacin (Levaquin 500 Mg Premixed Ivpb -) 500 mg in 100 mls @ 100 mls/hr IVPB DAILY [facility]; Protocol Last Admin: 02/24/18 11:01 Dose: 100 mls/hr Insulin Aspart (Novolog Vial Sliding Scale -) 1 vial SQ AM [facility]; Protocol Last Admin: 02/24/18 07:09 Dose: Not Given Isosorbide Mononitrate (Imdur -) 30 mg PO BID [facility] Last Admin: 02/24/18 11:00 Dose: 30 mg Lidocaine (Lidoderm Patch -) 1 patch TP DAILY [facility] Last Admin: 02/24/18 11:00 Dose: 1 patch Meclizine HCl (Antivert -) 12.5 mg PO Q6H PRN PRN Reason: VERTIGO Methylprednisolone Sodium Succinate (Solu-Medrol -) 40 mg IVPB Q6H-IV [facility] Last Admin: 02/24/18 11:02 Dose: 40 mg Miscellaneous (Lidoderm Patch Removal) 1 each MC DAILY@2200 [facility] Last Admin: 02/23/18 21:24 Dose: 1 each Montelukast Sodium (Singulair -) 10 mg PO HS [facility] Last Admin: 02/23/18 21:22 Dose: 10 mg Nitroglycerin (Nitrostat -) 0.4 mg SL TID PRN PRN Reason: FOR CHEST PAIN Last Admin: 02/22/18 21:31 Dose: 0.4 mg Nystatin (Nystatin Oral Suspension -) 500,000 units PO Q6HPO [facility] Last Admin: 02/24/18 11:03 Dose: 500,000 units Nystatin (Mycostatin Cream -) 1 applic TP BID [facility] Last Admin: 02/24/18 11:03 Dose: 1 applic Pantoprazole Sodium (Protonix -) 40 mg PO DAILY [facility] Last Admin: 02/24/18 11:02 Dose: 40 mg Potassium Chloride (K-Dur -) 10 meq PO BID [facility] Last Admin: 02/24/18 10:59 Dose: 10 meq Ranitidine HCl (Zantac -) 150 mg PO DAILY [facility] Last Admin: 02/24/18 11:00 Dose: 150 mg Ranolazine (Ranexa -) 500 mg PO BID [facility] Last Admin: 02/24/18 11:00 Dose: 500 mg Tiotropium [place] (Spiriva Respimat) 2 puff IH DAILY [facility] Last Admin: 02/24/18 11:00 Dose: 2 puff Verapamil HCl (Calan Sr -) 240 mg PO BID [facility] Last Admin: 02/24/18 10:59 Dose: 240 mg - Objective Vital Signs: Vital Signs Temperature 97.9 F 02/24/18 10:43 Pulse Rate 71 02/24/18 10:43 Respiratory Rate 19 02/24/18 10:43 Blood Pressure 112/53 02/24/18 10:43 O2 Sat by Pulse Oximetry (%) 95 02/23/18 21:00 Constitutional: Yes: No Distress, Calm Neck: Yes: Supple Cardiovascular: Yes: Regular Rate and Rhythm Respiratory: Yes: Regular, Cough, Diminished, On Nasal O2, SOB, Wheezes Gastrointestinal: Yes: Normal Bowel Sounds, Soft Edema: No Labs: CBC, BMP 02/24/18 06:05 02/24/18 06:05 INR, PTT INR 0.98 (0.82-1.09) 02/14/18 18:29 Problem List - Problems (1) H/O carotid endarterectomy Code(s): Z98.890 - OTHER SPECIFIED POSTPROCEDURAL STATES (2) COPD exacerbation Code(s): J44.1 - CHRONIC OBSTRUCTIVE PULMONARY DISEASE W (ACUTE) EXACERBATION (3) Coronary artery disease Code(s): I25.10 - ATHSCL HEART DISEASE OF [place] CORONARY ARTERY W/O ANG PCTRS Qualifiers: Coronary Disease-Associated Artery/Lesion type: [place] artery [place] vs. 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 AE COPD 2. CAD s/p NC, angina pectorus 3. Diastolic dysfunction 4. HTN/HCVD 5. Hyperlipidemia 6. Bilateral carotid artery disease post right CEA 7. Mesenteric ischemia post intervention 8. PAD post intervention P:1. BD, IV steroids with GI protection, empiric abx, Singulair, O2 as needed 2. Continue Verapamil SR 240 mg BID, Imdur 30 mg BID and Ranexa 500 mg BID 3. Continue Lipitor 80 mg QHS, Lasix 20 mg QD and Plavix 75 qd 4. Follow up with Dr. Luis Eduardo Manning, patient's marketing sales supervisor upon discharge 5. CTA carotids per vascular input
[2018-02-24] MEDS ORDERED: SODIUM CHLORIDE NASAL SPRAY 44 ML BOTTLE NS PRN (13:54)
[2018-02-24] MEDS: AZITHROMYCIN 250 MG TABLET PO SCH (14:55)
[2018-02-24] MEDS: MONTELUKAST NA 10 MG TABLET PO SCH (21:20)
[2018-02-24] MEDS: ATORVASTATIN CA 80 MG TABLET (FP) PO SCH (21:20)
[2018-02-24] MEDS: LIDOCAINE PATCH REMOVAL MC SCH (21:21)
[2018-02-24] MEDS: DOCUSATE SODIUM 100 MG CAPSULE (FP) PO SCH (21:21)
[2018-02-24] MEDS: MAG HYDROX/AL HYDROX/SIMETH 30 ML UNIT-DOSE CUP PO PRN (21:33)
[2018-02-25] MEDS: NYSTATIN 500,000 UNITS/5 ML SUSPENSION PO SCH ×5 (01:52→23:29)
[2018-02-25] MEDS: methylPREDNISolone NA SUCC 40 MG/1 ML VIAL IVPB SCH ×3 (03:04→17:41)
[2018-02-25] MEDS: ALBUTEROL SO4 0.083% IH SOL 2.5 MG/3 ML VIAL.NEB. NEB PRN (06:02)
[2018-02-25] MEDS: INSULIN SLIDING SCALE (NOVOLOG) 1 VIAL SQ SCH (06:27)
[2018-02-25 06:59] LABS: BASO % 0.2 % (0-2.0); HEMATOCRIT 38.2 % (32.4-45.2); HEMOGLOBIN 12.9 GM/dL (10.7-15.3); MCH 29.7 pg (25.7-33.7); MCHC 33.7 g/dl (32.0-36.0); MEAN CELL VOLUME 88.2 fl (80-96); MEAN PLT VOLUME 6.7 fl (7.5-11.1); NEUT % 94.8 % (42.8-82.8); PLATELET COUNT 257 K/MM3 (134-434); RBC 4.33 M/mm3 (3.60-5.2); RDW 14.8 % (11.6-15.6); WHITE BLOOD COUNT 17.8 K/mm3 (4.0-10.0)
[2018-02-25 07:26] LABS: CHLORIDE 97 mmol/L (98-107); POTASSIUM 4.4 mmol/L (3.5-5.1); SODIUM 136 mmol/L (136-145)
[2018-02-25 07:32] LABS: ANION GAP 9 (8-16); BLOOD UREA NITROGEN 21 mg/dL (7-18); CALCIUM 8.3 mg/dL (8.5-10.1); CO2 30 mmol/L (21-32); CREATININE 0.7 mg/dL (0.55-1.02); GLUCOSE,RANDOM 143 mg/dL (74-106)
--- NOTE | 2018-02-25 08:50 | PN ---
Progress Note, Physician Chief Complaint: coughing (dry) - Current Medication List Current Medications: Active Medications Acetaminophen (Tylenol -) 650 mg PO Q6H PRN PRN Reason: FEVER Last Admin: 02/19/18 21:19 Dose: 650 mg Al Hydroxide/Mg Hydroxide (Mylanta Oral Suspension -) 30 ml PO Q6H PRN PRN Reason: DYSPEPSIA Last Admin: 02/24/18 21:33 Dose: 30 ml Albuterol Sulfate (Ventolin 0.083% Nebulizer Soln -) 1 amp NEB Q4H PRN PRN Reason: SHORT OF BREATH/WHEEZING Last Admin: 02/25/18 06:02 Dose: 1 amp Albuterol Sulfate (Ventolin 0.083% Nebulizer Soln -) 1 amp NEB RQID [facility] Last Admin: 02/24/18 20:12 Dose: 1 amp Alprazolam (Xanax -) 0.25 mg PO BID PRN PRN Reason: *FOR ANXIETY* Last Admin: 02/24/18 21:33 Dose: 0.25 mg Atorvastatin Calcium (Lipitor -) 80 mg PO [facility] Last Admin: 02/24/18 21:20 Dose: 80 mg Azithromycin (Zithromax -) 250 mg PO DAILY [facility] Last Admin: 02/24/18 14:55 Dose: 250 mg Budesonide/Formoterol Fumarate (Symbicort 160/4.5mcg -) 2 puff IH BID [facility] Last Admin: 02/24/18 21:19 Dose: 2 puff Clopidogrel Bisulfate (Plavix -) 75 mg PO DAILY [facility] Last Admin: 02/24/18 10:59 Dose: 75 mg Docusate Sodium (Colace -) 300 mg PO HS [facility] Last Admin: 02/24/18 21:21 Dose: 300 mg Fluticasone Propionate (Flonase -) 1 spray NS BID [facility] Last Admin: 02/24/18 21:19 Dose: 1 spray Folic Acid (Folic Acid -) 1 mg PO DAILY [facility] Last Admin: 02/24/18 11:00 Dose: 1 mg Furosemide (Lasix -) 20 mg PO DAILY [facility] Last Admin: 02/24/18 10:59 Dose: 20 mg Guaifenesin (Robitussin Dm -) 10 ml PO Q6H PRN PRN Reason: COUGH Insulin Aspart (Novolog Vial Sliding Scale -) 1 vial SQ AM [facility]; Protocol Last Admin: 02/25/18 06:27 Dose: Not Given Isosorbide Mononitrate (Imdur -) 30 mg PO BID [facility] Last Admin: 02/24/18 21:20 Dose: 30 mg Lidocaine (Lidoderm Patch -) 1 patch TP DAILY [facility] Last Admin: 02/24/18 11:00 Dose: 1 patch Meclizine HCl (Antivert -) 12.5 mg PO Q6H PRN PRN Reason: VERTIGO Methylprednisolone Sodium Succinate (Solu-Medrol -) 40 mg IVPB Q6H-IV [facility] Last Admin: 02/25/18 03:04 Dose: 40 mg Miscellaneous (Lidoderm Patch Removal) 1 each MC DAILY@2200 [facility] Last Admin: 02/24/18 21:21 Dose: 1 each Montelukast Sodium (Singulair -) 10 mg PO HS [facility] Last Admin: 02/24/18 21:20 Dose: 10 mg Nitroglycerin (Nitrostat -) 0.4 mg SL TID PRN PRN Reason: FOR CHEST PAIN Last Admin: 02/22/18 21:31 Dose: 0.4 mg Nystatin (Nystatin Oral Suspension -) 500,000 units PO Q6HPO [facility] Last Admin: 02/25/18 05:52 Dose: 500,000 units Nystatin (Mycostatin Cream -) 1 applic TP BID [facility] Last Admin: 02/24/18 22:23 Dose: 1 applic Pantoprazole Sodium (Protonix -) 40 mg PO DAILY [facility] Last Admin: 02/24/18 11:02 Dose: 40 mg Potassium Chloride (K-Dur -) 10 meq PO BID [facility] Last Admin: 02/24/18 21:20 Dose: 10 meq Ranitidine HCl (Zantac -) 150 mg PO DAILY [facility] Last Admin: 02/24/18 11:00 Dose: 150 mg Ranolazine (Ranexa -) 500 mg PO BID [facility] Last Admin: 02/24/18 21:20 Dose: 500 mg Sodium Chloride ([place] Nasal [place] -) 2 spray NS TID PRN PRN Reason: NASAL CONGESTION Tiotropium [place] (Spiriva Respimat) 2 puff IH DAILY [facility] Last Admin: 02/24/18 11:00 Dose: 2 puff Verapamil HCl (Calan Sr -) 240 mg PO BID [facility] Last Admin: 02/24/18 21:20 Dose: 240 mg - Objective Vital Signs: Vital Signs Temperature 98.0 F 02/25/18 07:26 Pulse Rate 75 02/25/18 07:26 Respiratory Rate 20 02/25/18 07:26 Blood Pressure 129/54 02/25/18 07:26 O2 Sat by Pulse Oximetry (%) 95 02/24/18 09:00 Constitutional: Yes: No Distress Eyes: Yes: Conjunctiva Clear HENT: Yes: Atraumatic Neck: Yes: Supple Cardiovascular: Yes: Regular Rate and Rhythm Respiratory: Yes: Rales, Rhonchi, Wheezes Gastrointestinal: Yes: Soft. No: Distention Genitourinary: No: CVA Tenderness - Left, CVA Tenderness - Right Musculoskeletal: No: Joint Stiffness, Joint Swelling Extremities: No: Cold, Cool, Cyanosis Edema: No Integumentary: No: Rash, Venous Stasis Changes Neurological: Yes: WNL, Alert, Oriented ...Motor Strength: WNL Psychiatric: Yes: WNL, Alert, Oriented. No: Agitated, Suicidal Ideation Labs: CBC, BMP 02/25/18 06:05 02/25/18 06:05 INR, PTT INR 0.98 (0.82-1.09) 02/14/18 18:29 - ....Imaging Other: Report Reviewed Assessment/Plan Patient is a 62yo female with PMH of CT s/p angioplasty, carotid endarterectomy , COPD admitted with acute URI/ pneumonia and COPD exacerbation IV steroids per PULM , continue nebs, antibiotics; cough syrup prn cardiology and pulmonary f/u f/u labs gastric PFX while on steroids BGM check while on steroids prn xanax for insomnia and anxiety; falls PFX
[2018-02-25] MEDS: ALBUTEROL SO4 0.083% IH SOL 2.5 MG/3 ML VIAL.NEB. NEB SCH ×4 (08:59→20:55)
--- NOTE | 2018-02-25 09:11 | PN ---
Progress Note, Physician History of Present Illness: Dyspnea, productive cough and wheeze slowly improving. - Current Medication List Current Medications: Active Medications Acetaminophen (Tylenol -) 650 mg PO Q6H PRN PRN Reason: FEVER Last Admin: 02/19/18 21:19 Dose: 650 mg Al Hydroxide/Mg Hydroxide (Mylanta Oral Suspension -) 30 ml PO Q6H PRN PRN Reason: DYSPEPSIA Last Admin: 02/24/18 21:33 Dose: 30 ml Albuterol Sulfate (Ventolin 0.083% Nebulizer Soln -) 1 amp NEB Q4H PRN PRN Reason: SHORT OF BREATH/WHEEZING Last Admin: 02/25/18 06:02 Dose: 1 amp Albuterol Sulfate (Ventolin 0.083% Nebulizer Soln -) 1 amp NEB RQID [facility] Last Admin: 02/25/18 08:59 Dose: 1 amp Alprazolam (Xanax -) 0.25 mg PO BID PRN PRN Reason: *FOR ANXIETY* Last Admin: 02/24/18 21:33 Dose: 0.25 mg Atorvastatin Calcium (Lipitor -) 80 mg PO [facility] Last Admin: 02/24/18 21:20 Dose: 80 mg Azithromycin (Zithromax -) 250 mg PO DAILY [facility] Last Admin: 02/24/18 14:55 Dose: 250 mg Budesonide/Formoterol Fumarate (Symbicort 160/4.5mcg -) 2 puff IH BID [facility] Last Admin: 02/24/18 21:19 Dose: 2 puff Clopidogrel Bisulfate (Plavix -) 75 mg PO DAILY [facility] Last Admin: 02/24/18 10:59 Dose: 75 mg Docusate Sodium (Colace -) 300 mg PO HS [facility] Last Admin: 02/24/18 21:21 Dose: 300 mg Fluticasone Propionate (Flonase -) 1 spray NS BID [facility] Last Admin: 02/24/18 21:19 Dose: 1 spray Folic Acid (Folic Acid -) 1 mg PO DAILY [facility] Last Admin: 02/24/18 11:00 Dose: 1 mg Furosemide (Lasix -) 20 mg PO DAILY [facility] Last Admin: 02/24/18 10:59 Dose: 20 mg Guaifenesin (Robitussin Dm -) 10 ml PO Q6H PRN PRN Reason: COUGH Insulin Aspart (Novolog Vial Sliding Scale -) 1 vial SQ AM [facility]; Protocol Last Admin: 02/25/18 06:27 Dose: Not Given Isosorbide Mononitrate (Imdur -) 30 mg PO BID [facility] Last Admin: 02/24/18 21:20 Dose: 30 mg Lidocaine (Lidoderm Patch -) 1 patch TP DAILY [facility] Last Admin: 02/24/18 11:00 Dose: 1 patch Meclizine HCl (Antivert -) 12.5 mg PO Q6H PRN PRN Reason: VERTIGO Methylprednisolone Sodium Succinate (Solu-Medrol -) 40 mg IVPB Q6H-IV [facility] Last Admin: 02/25/18 03:04 Dose: 40 mg Miscellaneous (Lidoderm Patch Removal) 1 each MC DAILY@2200 [facility] Last Admin: 02/24/18 21:21 Dose: 1 each Montelukast Sodium (Singulair -) 10 mg PO HS [facility] Last Admin: 02/24/18 21:20 Dose: 10 mg Nitroglycerin (Nitrostat -) 0.4 mg SL TID PRN PRN Reason: FOR CHEST PAIN Last Admin: 02/22/18 21:31 Dose: 0.4 mg Nystatin (Nystatin Oral Suspension -) 500,000 units PO Q6HPO [facility] Last Admin: 02/25/18 05:52 Dose: 500,000 units Nystatin (Mycostatin Cream -) 1 applic TP BID [facility] Last Admin: 02/24/18 22:23 Dose: 1 applic Pantoprazole Sodium (Protonix -) 40 mg PO DAILY [facility] Last Admin: 02/24/18 11:02 Dose: 40 mg Potassium Chloride (K-Dur -) 10 meq PO BID [facility] Last Admin: 02/24/18 21:20 Dose: 10 meq Ranitidine HCl (Zantac -) 150 mg PO DAILY [facility] Last Admin: 02/24/18 11:00 Dose: 150 mg Ranolazine (Ranexa -) 500 mg PO BID [facility] Last Admin: 02/24/18 21:20 Dose: 500 mg Sodium Chloride ([place] Nasal [place] -) 2 spray NS TID PRN PRN Reason: NASAL CONGESTION Tiotropium [place] (Spiriva Respimat) 2 puff IH DAILY [facility] Last Admin: 02/24/18 11:00 Dose: 2 puff Verapamil HCl (Calan Sr -) 240 mg PO BID [facility] Last Admin: 02/24/18 21:20 Dose: 240 mg - Objective Vital Signs: Vital Signs Temperature 98.0 F 02/25/18 07:26 Pulse Rate 75 02/25/18 07:26 Respiratory Rate 20 02/25/18 07:26 Blood Pressure 129/54 02/25/18 07:26 O2 Sat by Pulse Oximetry (%) 95 02/24/18 09:00 Constitutional: Yes: No Distress, Calm Neck: Yes: Supple Cardiovascular: Yes: Regular Rate and Rhythm Respiratory: Yes: Regular, Diminished, SOB Gastrointestinal: Yes: Normal Bowel Sounds, Soft Edema: No Labs: CBC, BMP 02/25/18 06:05 02/25/18 06:05 INR, PTT INR 0.98 (0.82-1.09) 02/14/18 18:29 Problem List - Problems (1) H/O carotid endarterectomy Code(s): Z98.890 - OTHER SPECIFIED POSTPROCEDURAL STATES (2) COPD exacerbation Code(s): J44.1 - CHRONIC OBSTRUCTIVE PULMONARY DISEASE W (ACUTE) EXACERBATION (3) Coronary artery disease Code(s): I25.10 - ATHSCL HEART DISEASE OF [place] CORONARY ARTERY W/O ANG PCTRS Qualifiers: Coronary Disease-Associated Artery/Lesion type: [place] artery [place] vs. 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 AE COPD improving 2. CAD s/p [place], angina pectorus 3. Diastolic dysfunction 4. HTN/HCVD 5. Hyperlipidemia 6. Bilateral carotid artery disease post right CEA 7. Mesenteric ischemia post intervention 8. PAD post intervention P:1. BD, slow IV steroid taper with GI protection, empiric abx, Singulair, O2 as needed 2. Continue Verapamil SR 240 mg BID, Imdur 30 mg BID and Ranexa 500 mg BID 3. Continue Lipitor 80 mg QHS, Lasix 20 mg QD and Plavix 75 qd 4. Follow up with Dr. Luis Eduardo Manning, patient's acid leveler upon discharge 5. CTA carotids per vascular input
[2018-02-25] MEDS ORDERED: PT OWN MED DRAWER 7, Y5N ONE ×2 (09:14→11:20)
[2018-02-25] MEDS: AZITHROMYCIN 250 MG TABLET PO SCH (09:15)
[2018-02-25] MEDS: FOLIC ACID 1 MG TABLET (FP) PO SCH (09:15)
[2018-02-25] MEDS: ISOSORBIDE MONONITRATE 30 MG TAB.SR.24H (FP) PO SCH ×2 (09:16→21:15)
[2018-02-25] MEDS: CLOPIDOGREL BISULFATE 75 MG TABLET (FP) PO SCH (09:16)
[2018-02-25] MEDS: FLUTICASONE PROP 0.05% 16 GM NASAL SPRAY NS SCH ×2 (09:17→21:12)
[2018-02-25] MEDS: VERAPAMIL HCL 240 MG E.R. TABLET (FP) PO SCH ×2 (09:17→21:15)
[2018-02-25] MEDS: FUROSEMIDE 20 MG TABLET (FP) PO SCH (09:17)
[2018-02-25] MEDS: BUDESONIDE/FORMETEROL FUMARATE 160/4.5 mcg INHALER IH SCH ×2 (09:18→21:12)
[2018-02-25] MEDS: PANTOPRAZOLE 40 MG TABLET (FP) PO SCH (09:18)
[2018-02-25] MEDS: TIOTROPIUM BROMIDE 2.5 MCG (SPIRIVA) RESPIMAT INHALER IH SCH (09:18)
[2018-02-25] MEDS: RANOLAZINE E.R. 500 MG TABLET (FP) PO SCH ×2 (09:18→21:14)
[2018-02-25] MEDS: RANITIDINE HCL 150 MG TABLET (FP) PO SCH (09:20)
[2018-02-25] MEDS: POTASSIUM CHLORIDE TABS 10 MEQ TABLET.ER (FP) PO SCH ×2 (09:20→21:15)
[2018-02-25] MEDS: NYSTATIN 100,000 UNIT/GM TOPICAL CREAM 15 GM TUBE TP SCH ×2 (09:21→21:14)
[2018-02-25 09:22] LABS: PLATELET ESTIMATE NORMAL
[2018-02-25] MEDS: LIDOCAINE 5% TOPICAL PATCH TP SCH (09:23)
[2018-02-25] MEDS: ALPRAZolam 0.25 MG TABLET PO PRN ×2 (09:43→21:15)
--- NOTE | 2018-02-25 11:54 | PN ---
Progress Note, Physician History of Present Illness: pulmonary alert,less dyspneic,less congested - Current Medication List Current Medications: Active Medications Acetaminophen (Tylenol -) 650 mg PO Q6H PRN PRN Reason: FEVER Last Admin: 02/19/18 21:19 Dose: 650 mg Al Hydroxide/Mg Hydroxide (Mylanta Oral Suspension -) 30 ml PO Q6H PRN PRN Reason: DYSPEPSIA Last Admin: 02/24/18 21:33 Dose: 30 ml Albuterol Sulfate (Ventolin 0.083% Nebulizer Soln -) 1 amp NEB Q4H PRN PRN Reason: SHORT OF BREATH/WHEEZING Last Admin: 02/25/18 06:02 Dose: 1 amp Albuterol Sulfate (Ventolin 0.083% Nebulizer Soln -) 1 amp NEB RQID [facility] Last Admin: 02/25/18 08:59 Dose: 1 amp Alprazolam (Xanax -) 0.25 mg PO BID PRN PRN Reason: *FOR ANXIETY* Last Admin: 02/25/18 09:43 Dose: 0.25 mg Atorvastatin Calcium (Lipitor -) 80 mg PO HS [facility] Last Admin: 02/24/18 21:20 Dose: 80 mg Azithromycin (Zithromax -) 250 mg PO DAILY [facility] Last Admin: 02/25/18 09:15 Dose: 250 mg Budesonide/Formoterol Fumarate (Symbicort 160/4.5mcg -) 2 puff IH BID [facility] Last Admin: 02/25/18 09:18 Dose: 2 puff Clopidogrel Bisulfate (Plavix -) 75 mg PO DAILY [facility] Last Admin: 02/25/18 09:16 Dose: 75 mg Docusate Sodium (Colace -) 300 mg PO HS [facility] Last Admin: 02/24/18 21:21 Dose: 300 mg Fluticasone Propionate (Flonase -) 1 spray NS BID [facility] Last Admin: 02/25/18 09:17 Dose: 1 spray Folic Acid (Folic Acid -) 1 mg PO DAILY [facility] Last Admin: 02/25/18 09:15 Dose: 1 mg Furosemide (Lasix -) 20 mg PO DAILY [facility] Last Admin: 02/25/18 09:17 Dose: 20 mg Guaifenesin (Robitussin Dm -) 10 ml PO Q6H PRN PRN Reason: COUGH Insulin Aspart (Novolog Vial Sliding Scale -) 1 vial SQ AM [facility]; Protocol Last Admin: 02/25/18 06:27 Dose: Not Given Isosorbide Mononitrate (Imdur -) 30 mg PO BID [facility] Last Admin: 02/25/18 09:16 Dose: 30 mg Lidocaine (Lidoderm Patch -) 1 patch TP DAILY [facility] Last Admin: 02/25/18 09:23 Dose: 1 patch Meclizine HCl (Antivert -) 12.5 mg PO Q6H PRN PRN Reason: VERTIGO Methylprednisolone Sodium Succinate (Solu-Medrol -) 40 mg IVPB Q6H-IV [facility] Last Admin: 02/25/18 09:16 Dose: 40 mg Miscellaneous (Lidoderm Patch Removal) 1 each MC DAILY@2200 [facility] Last Admin: 02/24/18 21:21 Dose: 1 each Montelukast Sodium (Singulair -) 10 mg PO HS [facility] Last Admin: 02/24/18 21:20 Dose: 10 mg Nitroglycerin (Nitrostat -) 0.4 mg SL TID PRN PRN Reason: FOR CHEST PAIN Last Admin: 02/22/18 21:31 Dose: 0.4 mg Nystatin (Nystatin Oral Suspension -) 500,000 units PO Q6HPO [facility] Last Admin: 02/25/18 05:52 Dose: 500,000 units Nystatin (Mycostatin Cream -) 1 applic TP BID [facility] Last Admin: 02/25/18 09:21 Dose: 1 applic Pantoprazole Sodium (Protonix -) 40 mg PO DAILY [facility] Last Admin: 02/25/18 09:18 Dose: 40 mg Potassium Chloride (K-Dur -) 10 meq PO BID [facility] Last Admin: 02/25/18 09:20 Dose: 10 meq Ranitidine HCl (Zantac -) 150 mg PO DAILY [facility] Last Admin: 02/25/18 09:20 Dose: 150 mg Ranolazine (Ranexa -) 500 mg PO BID [facility] Last Admin: 02/25/18 09:18 Dose: 500 mg Sodium Chloride ([place] Nasal [place] -) 2 spray NS TID PRN PRN Reason: NASAL CONGESTION Tiotropium [place] (Spiriva Respimat) 2 puff IH DAILY [facility] Last Admin: 02/25/18 09:18 Dose: 2 puff Verapamil HCl (Calan Sr -) 240 mg PO BID [facility] Last Admin: 02/25/18 09:17 Dose: 240 mg - Objective Vital Signs: Vital Signs Temperature 98.0 F 02/25/18 07:26 Pulse Rate 75 02/25/18 07:26 Respiratory Rate 20 02/25/18 07:26 Blood Pressure 129/54 02/25/18 07:26 O2 Sat by Pulse Oximetry (%) 95 02/24/18 09:00 Constitutional: Yes: Well Nourished, Calm Eyes: Yes: WNL HENT: Yes: WNL Neck: Yes: WNL Cardiovascular: Yes: Regular Rate and Rhythm, S1, S2 Respiratory: Yes: Wheezes (marilee wheezes) Gastrointestinal: Yes: Normal Bowel Sounds, Soft Extremities: Yes: WNL Edema: No Labs: CBC, BMP 02/25/18 06:05 02/25/18 06:05 INR, PTT INR 0.98 (0.82-1.09) 02/14/18 18:29 Problem List - Problems (1) ASHD (arteriosclerotic heart disease) Code(s): I25.10 - ATHSCL HEART DISEASE OF [place] CORONARY ARTERY W/O ANG PCTRS (2) Anemia Code(s): D64.9 - ANEMIA, UNSPECIFIED (3) Sue esophagus Code(s): K22.70 - SUE'S ESOPHAGUS WITHOUT DYSPLASIA (4) COPD exacerbation Code(s): J44.1 - CHRONIC OBSTRUCTIVE PULMONARY DISEASE W (ACUTE) EXACERBATION (5) Coronary artery disease Code(s): I25.10 - ATHSCL HEART DISEASE OF [place] CORONARY ARTERY W/O ANG PCTRS Qualifiers: Coronary Disease-Associated Artery/Lesion type: [place] artery [place] vs. transplanted heart: [place] heart Associated angina: without angina Qualified Code(s): I25.10 - Atherosclerotic heart disease of [place] coronary artery without angina pectoris (6) History of myocardial infarction Code(s): I25.2 - OLD MYOCARDIAL INFARCTION (7) Peripheral artery disease Code(s): I73.9 - PERIPHERAL VASCULAR DISEASE, UNSPECIFIED Assessment/Plan IMP DYSPNEA COPD EXACERBATION ASHD S/P ME LV DIASTOLIC DYSFUNCTION HTN PVD GERD BARRETTS CAROTID ARTERY DISEASE PLAN TAPER STEROIDS INHALED BRONCHODILATORS O2 ABX ZITHROMAX 250mg DAILY ANTI-INFLAMMATORY PFTS DR LEÓN Problem List - Problems (1) ASHD (arteriosclerotic heart disease) Code(s): I25.10 - ATHSCL HEART DISEASE OF [place] CORONARY ARTERY W/O ANG PCTRS (2) Anemia Code(s): D64.9 - ANEMIA, UNSPECIFIED (3) Sue esophagus Code(s): K22.70 - SUE'S ESOPHAGUS WITHOUT DYSPLASIA (4) COPD exacerbation Code(s): J44.1 - CHRONIC OBSTRUCTIVE PULMONARY DISEASE W (ACUTE) EXACERBATION (5) Coronary artery disease Code(s): I25.10 - ATHSCL HEART DISEASE OF [place] CORONARY ARTERY W/O ANG PCTRS Qualifiers: Coronary Disease-Associated Artery/Lesion type: [place] artery [place] vs. transplanted heart: [place] heart Associated angina: without angina Qualified Code(s): I25.10 - Atherosclerotic heart disease of [place] coronary artery without angina pectoris (6) History of myocardial infarction Code(s): I25.2 - OLD MYOCARDIAL INFARCTION (7) Peripheral artery disease Code(s): I73.9 - PERIPHERAL VASCULAR DISEASE, UNSPECIFIED
[2018-02-25] MEDS ORDERED: INSULIN (NOVOLOG) ASPART 100 UNITS/ML 10ML VIAL ONE (20:58)
[2018-02-25] MEDS: DOCUSATE SODIUM 100 MG CAPSULE (FP) PO SCH (21:14)
[2018-02-25] MEDS: ATORVASTATIN CA 80 MG TABLET (FP) PO SCH (21:15)
[2018-02-25] MEDS: MONTELUKAST NA 10 MG TABLET PO SCH (21:15)
[2018-02-25] MEDS: LIDOCAINE PATCH REMOVAL MC SCH (21:16)
[2018-02-26] MEDS: methylPREDNISolone NA SUCC 40 MG/1 ML VIAL IVPB SCH ×3 (01:42→18:06)
[2018-02-26] MEDS: ALBUTEROL SO4 0.083% IH SOL 2.5 MG/3 ML VIAL.NEB. NEB PRN ×3 (03:25→22:39)
[2018-02-26] MEDS: INSULIN SLIDING SCALE (NOVOLOG) 1 VIAL SQ SCH (06:43)
[2018-02-26] MEDS: NYSTATIN 500,000 UNITS/5 ML SUSPENSION PO SCH ×3 (06:43→18:06)
[2018-02-26 07:19] LABS: EOS % 0.1 % (0-4.5); HEMATOCRIT 36.5 % (32.4-45.2); HEMOGLOBIN 12.3 GM/dL (10.7-15.3); MCH 29.6 pg (25.7-33.7); MCHC 33.6 g/dl (32.0-36.0); MEAN CELL VOLUME 88.1 fl (80-96); MEAN PLT VOLUME 6.6 fl (7.5-11.1); MONO % 3.6 % (3.8-10.2); NEUT % 92.3 % (42.8-82.8); PLATELET COUNT 230 K/MM3 (134-434); RBC 4.15 M/mm3 (3.60-5.2); WHITE BLOOD COUNT 14.5 K/mm3 (4.0-10.0)
[2018-02-26 07:55] LABS: CHLORIDE 96 mmol/L (98-107); POTASSIUM 4.7 mmol/L (3.5-5.1); SODIUM 134 mmol/L (136-145)
[2018-02-26 08:05] LABS: ANION GAP 4 (8-16); BLOOD UREA NITROGEN 20 mg/dL (7-18); CALCIUM 8.3 mg/dL (8.5-10.1); CO2 34 mmol/L (21-32); CREATININE 0.7 mg/dL (0.55-1.02); GLUCOSE,RANDOM 116 mg/dL (74-106)
[2018-02-26] MEDS: ALBUTEROL SO4 0.083% IH SOL 2.5 MG/3 ML VIAL.NEB. NEB SCH (08:45)
[2018-02-26 09:21] LABS: ANISOCYTOSIS 2+; MACROCYTOSIS 0; PLATELET ESTIMATE NORMAL
--- NOTE | 2018-02-26 09:52 | PN ---
Progress Note, Physician Chief Complaint: slightly less cough less wheezing - Current Medication List Current Medications: Active Medications Acetaminophen (Tylenol -) 650 mg PO Q6H PRN PRN Reason: FEVER Last Admin: 02/19/18 21:19 Dose: 650 mg Al Hydroxide/Mg Hydroxide (Mylanta Oral Suspension -) 30 ml PO Q6H PRN PRN Reason: DYSPEPSIA Last Admin: 02/24/18 21:33 Dose: 30 ml Albuterol Sulfate (Ventolin 0.083% Nebulizer Soln -) 1 amp NEB Q4H PRN PRN Reason: SHORT OF BREATH/WHEEZING Last Admin: 02/26/18 03:25 Dose: 1 amp Albuterol Sulfate (Ventolin 0.083% Nebulizer Soln -) 1 amp NEB RQID [facility] Last Admin: 02/25/18 20:55 Dose: 1 amp Alprazolam (Xanax -) 0.25 mg PO BID PRN PRN Reason: *FOR ANXIETY* Last Admin: 02/25/18 21:15 Dose: 0.25 mg Atorvastatin Calcium (Lipitor -) 80 mg PO HS [facility] Last Admin: 02/25/18 21:15 Dose: 80 mg Azithromycin (Zithromax -) 250 mg PO DAILY [facility] Last Admin: 02/25/18 09:15 Dose: 250 mg Budesonide/Formoterol Fumarate (Symbicort 160/4.5mcg -) 2 puff IH BID [facility] Last Admin: 02/25/18 21:12 Dose: 2 puff Clopidogrel Bisulfate (Plavix -) 75 mg PO DAILY [facility] Last Admin: 02/25/18 09:16 Dose: 75 mg Docusate Sodium (Colace -) 300 mg PO HS [facility] Last Admin: 02/25/18 21:14 Dose: 300 mg Fluticasone Propionate (Flonase -) 1 spray NS BID [facility] Last Admin: 02/25/18 21:12 Dose: 1 spray Folic Acid (Folic Acid -) 1 mg PO DAILY [facility] Last Admin: 02/25/18 09:15 Dose: 1 mg Furosemide (Lasix -) 20 mg PO DAILY [facility] Last Admin: 02/25/18 09:17 Dose: 20 mg Guaifenesin (Robitussin Dm -) 10 ml PO Q6H PRN PRN Reason: COUGH Insulin Aspart (Novolog Vial Sliding Scale -) 1 vial SQ AM [facility]; Protocol Last Admin: 02/26/18 06:43 Dose: Not Given Isosorbide Mononitrate (Imdur -) 30 mg PO BID [facility] Last Admin: 02/25/18 21:15 Dose: 30 mg Lidocaine (Lidoderm Patch -) 1 patch TP DAILY [facility] Last Admin: 02/25/18 09:23 Dose: 1 patch Meclizine HCl (Antivert -) 12.5 mg PO Q6H PRN PRN Reason: VERTIGO Methylprednisolone Sodium Succinate (Solu-Medrol -) 40 mg IVPB Q8H-IV [facility] Last Admin: 02/26/18 01:42 Dose: 40 mg Miscellaneous (Lidoderm Patch Removal) 1 each MC DAILY@2200 [facility] Last Admin: 02/25/18 21:16 Dose: 1 each Montelukast Sodium (Singulair -) 10 mg PO HS [facility] Last Admin: 02/25/18 21:15 Dose: 10 mg Nitroglycerin (Nitrostat -) 0.4 mg SL TID PRN PRN Reason: FOR CHEST PAIN Last Admin: 02/22/18 21:31 Dose: 0.4 mg Nystatin (Nystatin Oral Suspension -) 500,000 units PO Q6HPO [facility] Last Admin: 02/26/18 06:43 Dose: 500,000 units Nystatin (Mycostatin Cream -) 1 applic TP BID [facility] Last Admin: 02/25/18 21:14 Dose: 1 applic Pantoprazole Sodium (Protonix -) 40 mg PO DAILY [facility] Last Admin: 02/25/18 09:18 Dose: 40 mg Potassium Chloride (K-Dur -) 10 meq PO BID [facility] Last Admin: 02/25/18 21:15 Dose: 10 meq Ranitidine HCl (Zantac -) 150 mg PO DAILY [facility] Last Admin: 02/25/18 09:20 Dose: 150 mg Ranolazine (Ranexa -) 500 mg PO BID [facility] Last Admin: 02/25/18 21:14 Dose: 500 mg Sodium Chloride ([place] Nasal [place] -) 2 spray NS TID PRN PRN Reason: NASAL CONGESTION Tiotropium [place] (Spiriva Respimat) 2 puff IH DAILY [facility] Last Admin: 02/25/18 09:18 Dose: 2 puff Verapamil HCl (Calan Sr -) 240 mg PO BID [facility] Last Admin: 02/25/18 21:15 Dose: 240 mg - Objective Vital Signs: Vital Signs Temperature 98.4 F 02/26/18 06:46 Pulse Rate 60 02/26/18 06:46 Respiratory Rate 20 02/26/18 06:46 Blood Pressure 104/46 02/26/18 06:46 O2 Sat by Pulse Oximetry (%) 96 02/25/18 21:00 Constitutional: Yes: No Distress, Calm Eyes: Yes: Conjunctiva Clear HENT: Yes: Atraumatic Neck: Yes: Supple Cardiovascular: Yes: Regular Rate and Rhythm Respiratory: Yes: Diminished Gastrointestinal: Yes: Soft. No: Distention Genitourinary: No: CVA Tenderness - Left, CVA Tenderness - Right Musculoskeletal: No: Joint Stiffness, Joint Swelling Extremities: No: Cold, Cool, Cyanosis Edema: No Integumentary: No: Rash, Skin Tear, Venous Stasis Changes Neurological: Yes: WNL, Alert, Oriented ...Motor Strength: WNL Psychiatric: Yes: WNL, Alert, Oriented. No: Agitated, Suicidal Ideation Labs: CBC, BMP 02/26/18 06:05 02/26/18 06:05 INR, PTT INR 0.98 (0.82-1.09) 02/14/18 18:29 - ....Imaging Other: Report Reviewed Assessment/Plan Patient is a 62yo female with PMH of [place] s/p angioplasty, carotid endarterectomy , COPD admitted with acute URI/ pneumonia and COPD exacerbation IV steroids per PULM , continue nebs, antibiotics; cough syrup prn cardiology and pulmonary f/u f/u labs gastric PFX while on steroids; BGM check while on steroids prn xanax for insomnia and anxiety; falls PFX d/w pt and staff
[2018-02-26] MEDS ORDERED: PT OWN MED DRAWER 7, Y5N ONE ×3 (10:00→21:49)
[2018-02-26] MEDS: FLUTICASONE PROP 0.05% 16 GM NASAL SPRAY NS SCH ×2 (10:16→22:00)
[2018-02-26] MEDS: TIOTROPIUM BROMIDE 2.5 MCG (SPIRIVA) RESPIMAT INHALER IH SCH (10:16)
[2018-02-26] MEDS: FUROSEMIDE 20 MG TABLET (FP) PO SCH (10:17)
[2018-02-26] MEDS: BUDESONIDE/FORMETEROL FUMARATE 160/4.5 mcg INHALER IH SCH ×2 (10:17→21:59)
[2018-02-26] MEDS: CLOPIDOGREL BISULFATE 75 MG TABLET (FP) PO SCH (10:17)
[2018-02-26] MEDS: RANITIDINE HCL 150 MG TABLET (FP) PO SCH (10:17)
[2018-02-26] MEDS: FOLIC ACID 1 MG TABLET (FP) PO SCH (10:17)
[2018-02-26] MEDS: POTASSIUM CHLORIDE TABS 10 MEQ TABLET.ER (FP) PO SCH ×2 (10:17→22:00)
[2018-02-26] MEDS: RANOLAZINE E.R. 500 MG TABLET (FP) PO SCH ×2 (10:17→22:00)
[2018-02-26] MEDS: NYSTATIN 100,000 UNIT/GM TOPICAL CREAM 15 GM TUBE TP SCH ×2 (10:17→22:01)
[2018-02-26] MEDS: AZITHROMYCIN 250 MG TABLET PO SCH (10:18)
[2018-02-26] MEDS: ISOSORBIDE MONONITRATE 30 MG TAB.SR.24H (FP) PO SCH ×2 (10:18→22:00)
[2018-02-26] MEDS: PANTOPRAZOLE 40 MG TABLET (FP) PO SCH (10:18)
[2018-02-26] MEDS: LIDOCAINE 5% TOPICAL PATCH TP SCH (10:18)
[2018-02-26] MEDS: VERAPAMIL HCL 240 MG E.R. TABLET (FP) PO SCH ×3 (10:19→22:00)
--- NOTE | 2018-02-26 14:36 | PN ---
Progress Note (short form) - Note Progress Note: PULMONARY Slightly more chest tightness today. Still with cough and wheezes. Vital Signs Period Temp Pulse Resp BP Sys/Mann Pulse Ox Last 24 Hr 97.4 F-98.4 F 60-81 18-22 100-148/40-74 96 Gen: less tachypneic at rest Heart: RRR Lung: better air entry, + rhonchi, wheezes Abd: soft, nontender Ext: no edema CBC, BMP 02/26/18 06:05 02/26/18 06:05 Active Medications Acetaminophen (Tylenol -) 650 mg PO Q6H PRN PRN Reason: FEVER Last Admin: 02/19/18 21:19 Dose: 650 mg Al Hydroxide/Mg Hydroxide (Mylanta Oral Suspension -) 30 ml PO Q6H PRN PRN Reason: DYSPEPSIA Last Admin: 02/24/18 21:33 Dose: 30 ml Albuterol Sulfate (Ventolin 0.083% Nebulizer Soln -) 1 amp NEB Q4H PRN PRN Reason: SHORT OF BREATH/WHEEZING Last Admin: 02/26/18 03:25 Dose: 1 amp Alprazolam (Xanax -) 0.25 mg PO BID PRN PRN Reason: *FOR ANXIETY* Last Admin: 02/25/18 21:15 Dose: 0.25 mg Atorvastatin Calcium (Lipitor -) 80 mg PO [facility] Last Admin: 02/25/18 21:15 Dose: 80 mg Azithromycin (Zithromax -) 250 mg PO DAILY [facility] Last Admin: 02/26/18 10:18 Dose: 250 mg Budesonide/Formoterol Fumarate (Symbicort 160/4.5mcg -) 2 puff IH BID [facility] Last Admin: 02/26/18 10:17 Dose: 2 puff Clopidogrel Bisulfate (Plavix -) 75 mg PO DAILY [facility] Last Admin: 02/26/18 10:17 Dose: 75 mg Docusate Sodium (Colace -) 300 mg PO [facility] Last Admin: 02/25/18 21:14 Dose: 300 mg Fluticasone Propionate (Flonase -) 1 spray NS BID [facility] Last Admin: 02/26/18 10:16 Dose: 1 spray Folic Acid (Folic Acid -) 1 mg PO DAILY [facility] Last Admin: 02/26/18 10:17 Dose: 1 mg Furosemide (Lasix -) 20 mg PO DAILY [facility] Last Admin: 02/26/18 10:17 Dose: 20 mg Guaifenesin (Robitussin Dm -) 10 ml PO Q6H PRN PRN Reason: COUGH Insulin Aspart (Novolog Vial Sliding Scale -) 1 vial SQ AM [facility]; Protocol Last Admin: 02/26/18 06:43 Dose: Not Given Isosorbide Mononitrate (Imdur -) 30 mg PO BID [facility] Last Admin: 02/26/18 10:18 Dose: 30 mg Lidocaine (Lidoderm Patch -) 1 patch TP DAILY [facility] Last Admin: 02/26/18 10:18 Dose: 1 patch Meclizine HCl (Antivert -) 12.5 mg PO Q6H PRN PRN Reason: VERTIGO Methylprednisolone Sodium Succinate (Solu-Medrol -) 40 mg IVPB Q8H-IV [facility] Last Admin: 02/26/18 10:18 Dose: 40 mg Miscellaneous (Lidoderm Patch Removal) 1 each MC DAILY@2200 [facility] Last Admin: 02/25/18 21:16 Dose: 1 each Montelukast Sodium (Singulair -) 10 mg PO HS [facility] Last Admin: 02/25/18 21:15 Dose: 10 mg Nitroglycerin (Nitrostat -) 0.4 mg SL TID PRN PRN Reason: FOR CHEST PAIN Last Admin: 02/22/18 21:31 Dose: 0.4 mg Nystatin (Nystatin Oral Suspension -) 500,000 units PO Q6HPO [facility] Last Admin: 02/26/18 06:43 Dose: 500,000 units Nystatin (Mycostatin Cream -) 1 applic TP BID [facility] Last Admin: 02/26/18 10:17 Dose: 1 applic Pantoprazole Sodium (Protonix -) 40 mg PO DAILY [facility] Last Admin: 02/26/18 10:18 Dose: 40 mg Potassium Chloride (K-Dur -) 10 meq PO BID [facility] Last Admin: 02/26/18 10:17 Dose: 10 meq Ranitidine HCl (Zantac -) 150 mg PO DAILY [facility] Last Admin: 02/26/18 10:17 Dose: 150 mg Ranolazine (Ranexa -) 500 mg PO BID [facility] Last Admin: 02/26/18 10:17 Dose: 500 mg Sodium Chloride ([place] Nasal [place] -) 2 spray NS TID PRN PRN Reason: NASAL CONGESTION Tiotropium [place] (Spiriva Respimat) 2 puff IH DAILY [facility] Last Admin: 02/26/18 10:16 Dose: 2 puff Verapamil HCl (Calan Sr -) 240 mg PO BID [facility] Last Admin: 02/26/18 11:00 Dose: 240 mg A/P Acute COPD Exacerbation CAD LV Diastolic Dysfunction HTN Hyperlipidemia PAD - continue medrol at current dose - inhaled bronchodilators standing and PRN - on empiric antibiotics - O2 to keep SpO2>90% - DVT prophylaxis
--- NOTE | 2018-02-26 15:47 | PN ---
Progress Note (short form) - Note Progress Note: Chief Complaint: Events noted, notes reviewed, denies any chest pain but reports persistent dyspnea but improving History of Present Illness: Seen and examined. Events noted, notes reviewed, denies any chest pain but reports persistent dyspnea but improving - Current Medication List Current Medications: Active Medications Current Medications Acetaminophen (Tylenol -) 650 mg PO Q6H PRN PRN Reason: FEVER Last Admin: 02/19/18 21:19 Dose: 650 mg Al Hydroxide/Mg Hydroxide (Mylanta Oral Suspension -) 30 ml PO Q6H PRN PRN Reason: DYSPEPSIA Last Admin: 02/24/18 21:33 Dose: 30 ml Albuterol Sulfate (Ventolin 0.083% Nebulizer Soln -) 1 amp NEB Q4H PRN PRN Reason: SHORT OF BREATH/WHEEZING Last Admin: 02/26/18 03:25 Dose: 1 amp Alprazolam (Xanax -) 0.25 mg PO BID PRN PRN Reason: *FOR ANXIETY* Last Admin: 02/25/18 21:15 Dose: 0.25 mg Atorvastatin Calcium (Lipitor -) 80 mg PO HS [facility] Last Admin: 02/25/18 21:15 Dose: 80 mg Azithromycin (Zithromax -) 250 mg PO DAILY [facility] Last Admin: 02/26/18 10:18 Dose: 250 mg Budesonide/Formoterol Fumarate (Symbicort 160/4.5mcg -) 2 puff IH BID [facility] Last Admin: 02/26/18 10:17 Dose: 2 puff Clopidogrel Bisulfate (Plavix -) 75 mg PO DAILY [facility] Last Admin: 02/26/18 10:17 Dose: 75 mg Docusate Sodium (Colace -) 300 mg PO HS [facility] Last Admin: 02/25/18 21:14 Dose: 300 mg Fluticasone Propionate (Flonase -) 1 spray NS BID [facility] Last Admin: 02/26/18 10:16 Dose: 1 spray Folic Acid (Folic Acid -) 1 mg PO DAILY [facility] Last Admin: 02/26/18 10:17 Dose: 1 mg Furosemide (Lasix -) 20 mg PO DAILY [facility] Last Admin: 02/26/18 10:17 Dose: 20 mg Guaifenesin (Robitussin Dm -) 10 ml PO Q6H PRN PRN Reason: COUGH Insulin Aspart (Novolog Vial Sliding Scale -) 1 vial SQ AM [facility]; Protocol Last Admin: 02/26/18 06:43 Dose: Not Given Isosorbide Mononitrate (Imdur -) 30 mg PO BID [facility] Last Admin: 02/26/18 10:18 Dose: 30 mg Lidocaine (Lidoderm Patch -) 1 patch TP DAILY [facility] Last Admin: 02/26/18 10:18 Dose: 1 patch Meclizine HCl (Antivert -) 12.5 mg PO Q6H PRN PRN Reason: VERTIGO Methylprednisolone Sodium Succinate (Solu-Medrol -) 40 mg IVPB Q8H-IV [facility] Last Admin: 02/26/18 10:18 Dose: 40 mg Miscellaneous (Lidoderm Patch Removal) 1 each MC DAILY@2200 [facility] Last Admin: 02/25/18 21:16 Dose: 1 each Montelukast Sodium (Singulair -) 10 mg PO HS [facility] Last Admin: 02/25/18 21:15 Dose: 10 mg Nitroglycerin (Nitrostat -) 0.4 mg SL TID PRN PRN Reason: FOR CHEST PAIN Last Admin: 02/22/18 21:31 Dose: 0.4 mg Nystatin (Nystatin Oral Suspension -) 500,000 units PO Q6HPO [facility] Last Admin: 02/26/18 12:00 Dose: 500,000 units Nystatin (Mycostatin Cream -) 1 applic TP BID [facility] Last Admin: 02/26/18 10:17 Dose: 1 applic Pantoprazole Sodium (Protonix -) 40 mg PO DAILY [facility] Last Admin: 02/26/18 10:18 Dose: 40 mg Potassium Chloride (K-Dur -) 10 meq PO BID [facility] Last Admin: 02/26/18 10:17 Dose: 10 meq Ranitidine HCl (Zantac -) 150 mg PO DAILY [facility] Last Admin: 02/26/18 10:17 Dose: 150 mg Ranolazine (Ranexa -) 500 mg PO BID [facility] Last Admin: 02/26/18 10:17 Dose: 500 mg Sodium Chloride ([place] Nasal [place] -) 2 spray NS TID PRN PRN Reason: NASAL CONGESTION Tiotropium [place] (Spiriva Respimat) 2 puff IH DAILY [facility] Last Admin: 02/26/18 10:16 Dose: 2 puff Verapamil HCl (Calan Sr -) 240 mg PO BID [facility] Last Admin: 02/26/18 11:00 Dose: 240 mg - Objective Vital Signs: Last Vital Signs Temp Pulse Resp BP Pulse Ox 97.6 F 75 18 105/46 96 02/26/18 14:05 02/26/18 14:05 02/26/18 14:05 02/26/18 14:05 02/25/18 21:00 Intake & Output 02/23/18 02/24/18 02/25/18 02/26/18 23:59 23:59 23:59 23:59 Intake Total 1475 1375 1000 200 Balance 1475 1375 1000 200 Constitutional: No Distress, Calm Neck: Supple Cardiovascular: S1 S2 Regular Rate and Rhythm Respiratory: Diminished Bilaterally with Scattered Rhonchi Gastrointestinal: Soft Benign Normal Bowel Sounds Ext: No Edema Labs: CBC, BMP 02/26/18 06:05 02/26/18 06:05 Assessment/Plan ASSESSMENT: 1. Acute exacerbation of COPD, resolving 2. CAD post CA, angina pectoris 3. Diastolic LV dysfunction with class 0-I NYHA classification LV failure 4. HTN 5. Hyperlipidemia 6. Bilateral carotid artery disease post right CEA 7. Mesenteric ischemia post intervention 8. PAD post intervention PLAN: 1. Continue Verapamil 2. Continue Imdur and Ranexa 3. Continue Lipitor 4. Continue Lasix 5. Continue Plavix 6. 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 CTA carotids as per vascular input Iva Strange MD
[2018-02-26] MEDS: DOCUSATE SODIUM 100 MG CAPSULE (FP) PO SCH (22:00)
[2018-02-26] MEDS: MONTELUKAST NA 10 MG TABLET PO SCH (22:00)
[2018-02-26] MEDS: ATORVASTATIN CA 80 MG TABLET (FP) PO SCH (22:00)
[2018-02-26] MEDS: LIDOCAINE PATCH REMOVAL MC SCH (22:01)
[2018-02-26] MEDS: ALPRAZolam 0.25 MG TABLET PO PRN (22:07)
[2018-02-27] MEDS: NYSTATIN 500,000 UNITS/5 ML SUSPENSION PO SCH ×5 (01:35→23:37)
[2018-02-27] MEDS: methylPREDNISolone NA SUCC 40 MG/1 ML VIAL IVPB SCH ×3 (02:35→17:22)
[2018-02-27] MEDS: INSULIN SLIDING SCALE (NOVOLOG) 1 VIAL SQ SCH (06:54)
--- NOTE | 2018-02-27 08:14 | PN ---
Progress Note, Physician Chief Complaint: feels better less cough no SOB - Current Medication List Current Medications: Active Medications Acetaminophen (Tylenol -) 650 mg PO Q6H PRN PRN Reason: FEVER Last Admin: 02/19/18 21:19 Dose: 650 mg Al Hydroxide/Mg Hydroxide (Mylanta Oral Suspension -) 30 ml PO Q6H PRN PRN Reason: DYSPEPSIA Last Admin: 02/24/18 21:33 Dose: 30 ml Albuterol Sulfate (Ventolin 0.083% Nebulizer Soln -) 1 amp NEB Q4H PRN PRN Reason: SHORT OF BREATH/WHEEZING Last Admin: 02/26/18 22:39 Dose: 1 amp Alprazolam (Xanax -) 0.25 mg PO BID PRN PRN Reason: *FOR ANXIETY* Last Admin: 02/26/18 22:07 Dose: 0.25 mg Atorvastatin Calcium (Lipitor -) 80 mg PO HS [facility] Last Admin: 02/26/18 22:00 Dose: 80 mg Azithromycin (Zithromax -) 250 mg PO DAILY [facility] Last Admin: 02/26/18 10:18 Dose: 250 mg Budesonide/Formoterol Fumarate (Symbicort 160/4.5mcg -) 2 puff IH BID [facility] Last Admin: 02/26/18 21:59 Dose: 2 puff Clopidogrel Bisulfate (Plavix -) 75 mg PO DAILY [facility] Last Admin: 02/26/18 10:17 Dose: 75 mg Docusate Sodium (Colace -) 300 mg PO [facility] Last Admin: 02/26/18 22:00 Dose: 300 mg Fluticasone Propionate (Flonase -) 1 spray NS BID [facility] Last Admin: 02/26/18 22:00 Dose: 1 spray Folic Acid (Folic Acid -) 1 mg PO DAILY [facility] Last Admin: 02/26/18 10:17 Dose: 1 mg Furosemide (Lasix -) 20 mg PO DAILY [facility] Last Admin: 02/26/18 10:17 Dose: 20 mg Guaifenesin (Robitussin Dm -) 10 ml PO Q6H PRN PRN Reason: COUGH Insulin Aspart (Novolog Vial Sliding Scale -) 1 vial SQ AM [facility]; Protocol Last Admin: 02/27/18 06:54 Dose: Not Given Isosorbide Mononitrate (Imdur -) 30 mg PO BID [facility] Last Admin: 02/26/18 22:00 Dose: 30 mg Lidocaine (Lidoderm Patch -) 1 patch TP DAILY [facility] Last Admin: 02/26/18 10:18 Dose: 1 patch Meclizine HCl (Antivert -) 12.5 mg PO Q6H PRN PRN Reason: VERTIGO Methylprednisolone Sodium Succinate (Solu-Medrol -) 40 mg IVPB Q8H-IV [facility] Last Admin: 02/27/18 02:35 Dose: 40 mg Miscellaneous (Lidoderm Patch Removal) 1 each MC DAILY@2200 [facility] Last Admin: 02/26/18 22:01 Dose: 1 each Montelukast Sodium (Singulair -) 10 mg PO HS [facility] Last Admin: 02/26/18 22:00 Dose: 10 mg Nitroglycerin (Nitrostat -) 0.4 mg SL TID PRN PRN Reason: FOR CHEST PAIN Last Admin: 02/22/18 21:31 Dose: 0.4 mg Nystatin (Nystatin Oral Suspension -) 500,000 units PO Q6HPO [facility] Last Admin: 02/27/18 06:54 Dose: 500,000 units Nystatin (Mycostatin Cream -) 1 applic TP BID [facility] Last Admin: 02/26/18 22:01 Dose: 1 applic Pantoprazole Sodium (Protonix -) 40 mg PO DAILY [facility] Last Admin: 02/26/18 10:18 Dose: 40 mg Potassium Chloride (K-Dur -) 10 meq PO BID [facility] Last Admin: 02/26/18 22:00 Dose: 10 meq Ranitidine HCl (Zantac -) 150 mg PO DAILY [facility] Last Admin: 02/26/18 10:17 Dose: 150 mg Ranolazine (Ranexa -) 500 mg PO BID [facility] Last Admin: 02/26/18 22:00 Dose: 500 mg Sodium Chloride ([place] Nasal [place] -) 2 spray NS TID PRN PRN Reason: NASAL CONGESTION Tiotropium [place] (Spiriva Respimat) 2 puff IH DAILY [facility] Last Admin: 02/26/18 10:16 Dose: 2 puff Verapamil HCl (Calan Sr -) 240 mg PO BID [facility] Last Admin: 02/26/18 22:00 Dose: 240 mg - Objective Vital Signs: Vital Signs Temperature 98.1 F 02/27/18 06:55 Pulse Rate 68 02/27/18 06:55 Respiratory Rate 18 02/27/18 06:55 Blood Pressure 131/57 02/27/18 06:55 O2 Sat by Pulse Oximetry (%) 96 02/26/18 21:00 Constitutional: Yes: No Distress, Calm Eyes: Yes: Conjunctiva Clear HENT: Yes: Atraumatic Neck: Yes: Supple Cardiovascular: Yes: Regular Rate and Rhythm Respiratory: Yes: Diminished Gastrointestinal: Yes: Soft. No: Distention Genitourinary: No: CVA Tenderness - Left, CVA Tenderness - Right Musculoskeletal: No: Joint Stiffness, Joint Swelling Extremities: No: Cold, Cool, Cyanosis Edema: No Neurological: Yes: WNL, Alert, Oriented ...Motor Strength: WNL Psychiatric: Yes: WNL, Alert, Oriented. No: Agitated, Suicidal Ideation Labs: CBC, BMP 02/26/18 06:05 02/26/18 06:05 INR, PTT INR 0.98 (0.82-1.09) 02/14/18 18:29 - ....Imaging Other: Report Reviewed Assessment/Plan Patient is a 62yo female with PMH of [place] s/p angioplasty, carotid endarterectomy , COPD admitted with acute URI/ pneumonia and COPD exacerbation taper steroids per PULM , continue nebs, antibiotics (zithromax po); cough syrup prn cardiology and pulmonary f/u f/u labs gastric PFX while on steroids; BGM check while on steroids prn xanax for insomnia and anxiety; falls PFX d/w pt and staff
[2018-02-27] MEDS ORDERED: PT OWN MED DRAWER 7, Y5N ONE ×4 (09:24→20:48)
[2018-02-27] MEDS: FLUTICASONE PROP 0.05% 16 GM NASAL SPRAY NS SCH ×2 (09:53→21:12)
[2018-02-27] MEDS: LIDOCAINE 5% TOPICAL PATCH TP SCH ×2 (09:54→12:17)
[2018-02-27] MEDS: PANTOPRAZOLE 40 MG TABLET (FP) PO SCH (09:54)
[2018-02-27] MEDS: TIOTROPIUM BROMIDE 2.5 MCG (SPIRIVA) RESPIMAT INHALER IH SCH (09:54)
[2018-02-27] MEDS: BUDESONIDE/FORMETEROL FUMARATE 160/4.5 mcg INHALER IH SCH ×2 (09:54→21:13)
[2018-02-27] MEDS: RANOLAZINE E.R. 500 MG TABLET (FP) PO SCH ×2 (09:55→21:13)
[2018-02-27] MEDS: VERAPAMIL HCL 240 MG E.R. TABLET (FP) PO SCH ×2 (09:56→21:11)
[2018-02-27] MEDS: FOLIC ACID 1 MG TABLET (FP) PO SCH (09:56)
[2018-02-27] MEDS: POTASSIUM CHLORIDE TABS 10 MEQ TABLET.ER (FP) PO SCH ×2 (09:56→21:12)
[2018-02-27] MEDS: CLOPIDOGREL BISULFATE 75 MG TABLET (FP) PO SCH (09:56)
[2018-02-27] MEDS: AZITHROMYCIN 250 MG TABLET PO SCH (09:56)
[2018-02-27] MEDS: ISOSORBIDE MONONITRATE 30 MG TAB.SR.24H (FP) PO SCH ×2 (09:56→21:12)
[2018-02-27] MEDS: RANITIDINE HCL 150 MG TABLET (FP) PO SCH (09:56)
[2018-02-27] MEDS: FUROSEMIDE 20 MG TABLET (FP) PO SCH (09:56)
[2018-02-27] MEDS: NYSTATIN 100,000 UNIT/GM TOPICAL CREAM 15 GM TUBE TP SCH ×2 (09:59→21:21)
--- NOTE | 2018-02-27 12:37 | PN ---
Progress Note (short form) - Note Progress Note: Chief Complaint: Events noted, notes reviewed, denies any chest pain but reports persistent dyspnea although improving, denies any orthopnea History of Present Illness: Seen and examined. Events noted, notes reviewed, denies any chest pain but reports persistent dyspnea although improving, denies any orthopnea - Current Medication List Current Medications: Active Medications Current Medications Acetaminophen (Tylenol -) 650 mg PO Q6H PRN PRN Reason: FEVER Last Admin: 02/19/18 21:19 Dose: 650 mg Al Hydroxide/Mg Hydroxide (Mylanta Oral Suspension -) 30 ml PO Q6H PRN PRN Reason: DYSPEPSIA Last Admin: 02/24/18 21:33 Dose: 30 ml Albuterol Sulfate (Ventolin 0.083% Nebulizer Soln -) 1 amp NEB Q4H PRN PRN Reason: SHORT OF BREATH/WHEEZING Last Admin: 02/26/18 22:39 Dose: 1 amp Alprazolam (Xanax -) 0.25 mg PO BID PRN PRN Reason: *FOR ANXIETY* Last Admin: 02/26/18 22:07 Dose: 0.25 mg Atorvastatin Calcium (Lipitor -) 80 mg PO HS [facility] Last Admin: 02/26/18 22:00 Dose: 80 mg Azithromycin (Zithromax -) 250 mg PO DAILY [facility] Last Admin: 02/27/18 09:56 Dose: 250 mg Budesonide/Formoterol Fumarate (Symbicort 160/4.5mcg -) 2 puff IH BID [facility] Last Admin: 02/27/18 09:54 Dose: 2 puff Clopidogrel Bisulfate (Plavix -) 75 mg PO DAILY [facility] Last Admin: 02/27/18 09:56 Dose: 75 mg Docusate Sodium (Colace -) 300 mg PO HS [facility] Last Admin: 02/26/18 22:00 Dose: 300 mg Fluticasone Propionate (Flonase -) 1 spray NS BID [facility] Last Admin: 02/27/18 09:53 Dose: 1 spray Folic Acid (Folic Acid -) 1 mg PO DAILY [facility] Last Admin: 02/27/18 09:56 Dose: 1 mg Furosemide (Lasix -) 20 mg PO DAILY [facility] Last Admin: 02/27/18 09:56 Dose: 20 mg Guaifenesin (Robitussin Dm -) 10 ml PO Q6H PRN PRN Reason: COUGH Insulin Aspart (Novolog Vial Sliding Scale -) 1 vial SQ AM [facility]; Protocol Last Admin: 02/27/18 06:54 Dose: Not Given Isosorbide Mononitrate (Imdur -) 30 mg PO BID [facility] Last Admin: 02/27/18 09:56 Dose: 30 mg Lidocaine (Lidoderm Patch -) 1 patch TP DAILY [facility] Last Admin: 02/27/18 12:17 Dose: 1 patch Meclizine HCl (Antivert -) 12.5 mg PO Q6H PRN PRN Reason: VERTIGO Methylprednisolone Sodium Succinate (Solu-Medrol -) 40 mg IVPB Q8H-IV [facility] Last Admin: 02/27/18 09:57 Dose: 40 mg Miscellaneous (Lidoderm Patch Removal) 1 each MC DAILY@2200 [facility] Last Admin: 02/26/18 22:01 Dose: 1 each Montelukast Sodium (Singulair -) 10 mg PO HS [facility] Last Admin: 02/26/18 22:00 Dose: 10 mg Nitroglycerin (Nitrostat -) 0.4 mg SL TID PRN PRN Reason: FOR CHEST PAIN Last Admin: 02/22/18 21:31 Dose: 0.4 mg Nystatin (Nystatin Oral Suspension -) 500,000 units PO Q6HPO [facility] Last Admin: 02/27/18 12:18 Dose: 500,000 units Nystatin (Mycostatin Cream -) 1 applic TP BID [facility] Last Admin: 02/27/18 09:59 Dose: 1 applic Pantoprazole Sodium (Protonix -) 40 mg PO DAILY [facility] Last Admin: 02/27/18 09:54 Dose: 40 mg Potassium Chloride (K-Dur -) 10 meq PO BID [facility] Last Admin: 02/27/18 09:56 Dose: 10 meq Ranitidine HCl (Zantac -) 150 mg PO DAILY [facility] Last Admin: 02/27/18 09:56 Dose: 150 mg Ranolazine (Ranexa -) 500 mg PO BID [facility] Last Admin: 02/27/18 09:55 Dose: 500 mg Sodium Chloride ([place] Nasal [place] -) 2 spray NS TID PRN PRN Reason: NASAL CONGESTION Tiotropium [place] (Spiriva Respimat) 2 puff IH DAILY [facility] Last Admin: 02/27/18 09:54 Dose: 2 puff Verapamil HCl (Calan Sr -) 240 mg PO BID [facility] Last Admin: 02/27/18 09:56 Dose: 240 mg - Objective Vital Signs: Last Vital Signs Temp Pulse Resp BP Pulse Ox 98 F 82 24 122/67 96 02/27/18 09:26 02/27/18 09:26 02/27/18 09:26 02/27/18 09:26 02/26/18 21:00 Intake & Output 02/24/18 02/25/18 02/26/18 02/27/18 23:59 23:59 23:59 23:59 Intake Total 1375 1000 440 Balance 1375 1000 440 Constitutional: No Distress, Calm Neck: Supple Negative JVD Cardiovascular: S1 S2 Regular Rate and Rhythm Respiratory: Diminished Bilaterally with Scattered Rhonchi Gastrointestinal: Soft Benign Normal Bowel Sounds Ext: No Edema Labs: CBC, BMP 02/26/18 06:05 02/26/18 06:05 Assessment/Plan ASSESSMENT: 1. Acute exacerbation of COPD, resolving 2. CAD post VT, angina pectoris 3. Diastolic LV dysfunction with class 0-I NYHA classification LV failure 4. HTN 5. Hyperlipidemia 6. Bilateral carotid artery disease post right CEA 7. Mesenteric ischemia post intervention 8. PAD post intervention PLAN: 1. Continue Verapamil 2. Continue Imdur and Ranexa 3. Continue Lipitor 4. Continue Lasix 5. Continue Plavix 6. 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 CTA carotids as per vascular input Iva Strange MD
--- NOTE | 2018-02-27 12:44 | PN ---
Progress Note (short form) - Note Progress Note: PULMONARY Still with shortness of breath and chest tightness. c/o nasal congestion. Still with cough and wheezes. Vital Signs Period Temp Pulse Resp BP Sys/Mann Pulse Ox Last 24 Hr 97.6 F-98.1 F 68-83 18-24 105-149/46-73 95-96 Gen: less tachypneic at rest Heart: RRR Lung: better air entry, + rhonchi, wheezes Abd: soft, nontender Ext: no edema CBC, BMP 02/26/18 06:05 02/26/18 06:05 Active Medications Acetaminophen (Tylenol -) 650 mg PO Q6H PRN PRN Reason: FEVER Last Admin: 02/19/18 21:19 Dose: 650 mg Al Hydroxide/Mg Hydroxide (Mylanta Oral Suspension -) 30 ml PO Q6H PRN PRN Reason: DYSPEPSIA Last Admin: 02/24/18 21:33 Dose: 30 ml Albuterol Sulfate (Ventolin 0.083% Nebulizer Soln -) 1 amp NEB Q4H PRN PRN Reason: SHORT OF BREATH/WHEEZING Last Admin: 02/26/18 22:39 Dose: 1 amp Alprazolam (Xanax -) 0.25 mg PO BID PRN PRN Reason: *FOR ANXIETY* Last Admin: 02/26/18 22:07 Dose: 0.25 mg Atorvastatin Calcium (Lipitor -) 80 mg PO [facility] Last Admin: 02/26/18 22:00 Dose: 80 mg Azithromycin (Zithromax -) 250 mg PO DAILY [facility] Last Admin: 02/27/18 09:56 Dose: 250 mg Budesonide/Formoterol Fumarate (Symbicort 160/4.5mcg -) 2 puff IH BID [facility] Last Admin: 02/27/18 09:54 Dose: 2 puff Clopidogrel Bisulfate (Plavix -) 75 mg PO DAILY [facility] Last Admin: 02/27/18 09:56 Dose: 75 mg Docusate Sodium (Colace -) 300 mg PO [facility] Last Admin: 02/26/18 22:00 Dose: 300 mg Fluticasone Propionate (Flonase -) 1 spray NS BID [facility] Last Admin: 02/27/18 09:53 Dose: 1 spray Folic Acid (Folic Acid -) 1 mg PO DAILY [facility] Last Admin: 02/27/18 09:56 Dose: 1 mg Furosemide (Lasix -) 20 mg PO DAILY [facility] Last Admin: 02/27/18 09:56 Dose: 20 mg Guaifenesin (Robitussin Dm -) 10 ml PO Q6H PRN PRN Reason: COUGH Insulin Aspart (Novolog Vial Sliding Scale -) 1 vial SQ AM [facility]; Protocol Last Admin: 02/27/18 06:54 Dose: Not Given Isosorbide Mononitrate (Imdur -) 30 mg PO BID [facility] Last Admin: 02/27/18 09:56 Dose: 30 mg Lidocaine (Lidoderm Patch -) 1 patch TP DAILY [facility] Last Admin: 02/27/18 12:17 Dose: 1 patch Meclizine HCl (Antivert -) 12.5 mg PO Q6H PRN PRN Reason: VERTIGO Methylprednisolone Sodium Succinate (Solu-Medrol -) 40 mg IVPB Q8H-IV [facility] Last Admin: 02/27/18 09:57 Dose: 40 mg Miscellaneous (Lidoderm Patch Removal) 1 each MC DAILY@2200 [facility] Last Admin: 02/26/18 22:01 Dose: 1 each Montelukast Sodium (Singulair -) 10 mg PO HS [facility] Last Admin: 02/26/18 22:00 Dose: 10 mg Nitroglycerin (Nitrostat -) 0.4 mg SL TID PRN PRN Reason: FOR CHEST PAIN Last Admin: 02/22/18 21:31 Dose: 0.4 mg Nystatin (Nystatin Oral Suspension -) 500,000 units PO Q6HPO [facility] Last Admin: 02/27/18 12:18 Dose: 500,000 units Nystatin (Mycostatin Cream -) 1 applic TP BID [facility] Last Admin: 02/27/18 09:59 Dose: 1 applic Pantoprazole Sodium (Protonix -) 40 mg PO DAILY [facility] Last Admin: 02/27/18 09:54 Dose: 40 mg Potassium Chloride (K-Dur -) 10 meq PO BID [facility] Last Admin: 02/27/18 09:56 Dose: 10 meq Ranitidine HCl (Zantac -) 150 mg PO DAILY [facility] Last Admin: 02/27/18 09:56 Dose: 150 mg Ranolazine (Ranexa -) 500 mg PO BID [facility] Last Admin: 02/27/18 09:55 Dose: 500 mg Sodium Chloride ([place] Nasal [place] -) 2 spray NS TID PRN PRN Reason: NASAL CONGESTION Tiotropium [place] (Spiriva Respimat) 2 puff IH DAILY [facility] Last Admin: 02/27/18 09:54 Dose: 2 puff Verapamil HCl (Calan Sr -) 240 mg PO BID [facility] Last Admin: 02/27/18 09:56 Dose: 240 mg A/P Acute COPD Exacerbation CAD LV Diastolic Dysfunction HTN Hyperlipidemia PAD - continue medrol at current dose - inhaled bronchodilators standing and PRN - on empiric antibiotics - O2 to keep SpO2>90% - DVT prophylaxis
[2018-02-27] MEDS: SODIUM CHLORIDE NASAL SPRAY 44 ML BOTTLE NS SCH ×2 (14:38→21:13)
[2018-02-27] MEDS: ALBUTEROL SO4 0.083% IH SOL 2.5 MG/3 ML VIAL.NEB. NEB PRN ×2 (15:10→20:43)
[2018-02-27] MEDS: DOCUSATE SODIUM 100 MG CAPSULE (FP) PO SCH (21:11)
[2018-02-27] MEDS: ATORVASTATIN CA 80 MG TABLET (FP) PO SCH (21:12)
[2018-02-27] MEDS: MONTELUKAST NA 10 MG TABLET PO SCH (21:18)
[2018-02-27] MEDS: ALPRAZolam 0.25 MG TABLET PO PRN (21:18)
[2018-02-27] MEDS: LIDOCAINE PATCH REMOVAL MC SCH (21:22)
[2018-02-28] MEDS: methylPREDNISolone NA SUCC 40 MG/1 ML VIAL IVPB SCH ×4 (02:08→22:14)
[2018-02-28] MEDS: SODIUM CHLORIDE NASAL SPRAY 44 ML BOTTLE NS SCH ×3 (06:26→22:16)
[2018-02-28] MEDS: NYSTATIN 500,000 UNITS/5 ML SUSPENSION PO SCH ×4 (06:26→23:51)
[2018-02-28] MEDS: INSULIN SLIDING SCALE (NOVOLOG) 1 VIAL SQ SCH (06:33)
[2018-02-28] MEDS ORDERED: INSULIN (NOVOLOG) ASPART 100 UNITS/ML 10ML VIAL ONE (06:52)
[2018-02-28] MEDS ORDERED: PT OWN MED DRAWER 7, Y5N ONE ×3 (09:32→22:09)
[2018-02-28] MEDS: POTASSIUM CHLORIDE TABS 10 MEQ TABLET.ER (FP) PO SCH ×2 (09:33→22:15)
[2018-02-28] MEDS: FOLIC ACID 1 MG TABLET (FP) PO SCH (09:33)
[2018-02-28] MEDS: CLOPIDOGREL BISULFATE 75 MG TABLET (FP) PO SCH (09:33)
[2018-02-28] MEDS: RANITIDINE HCL 150 MG TABLET (FP) PO SCH (09:33)
[2018-02-28] MEDS: FUROSEMIDE 20 MG TABLET (FP) PO SCH (09:34)
[2018-02-28] MEDS: FLUTICASONE PROP 0.05% 16 GM NASAL SPRAY NS SCH ×2 (09:34→22:14)
[2018-02-28] MEDS: AZITHROMYCIN 250 MG TABLET PO SCH (09:34)
[2018-02-28] MEDS: ISOSORBIDE MONONITRATE 30 MG TAB.SR.24H (FP) PO SCH ×2 (09:34→22:13)
[2018-02-28] MEDS: PANTOPRAZOLE 40 MG TABLET (FP) PO SCH (09:34)
[2018-02-28] MEDS: RANOLAZINE E.R. 500 MG TABLET (FP) PO SCH ×2 (09:34→22:14)
[2018-02-28] MEDS: BUDESONIDE/FORMETEROL FUMARATE 160/4.5 mcg INHALER IH SCH ×2 (09:35→22:14)
[2018-02-28] MEDS: VERAPAMIL HCL 240 MG E.R. TABLET (FP) PO SCH ×2 (09:35→22:14)
[2018-02-28] MEDS: TIOTROPIUM BROMIDE 2.5 MCG (SPIRIVA) RESPIMAT INHALER IH SCH (09:35)
[2018-02-28] MEDS: LIDOCAINE 5% TOPICAL PATCH TP SCH (09:35)
[2018-02-28] MEDS: NYSTATIN 100,000 UNIT/GM TOPICAL CREAM 15 GM TUBE TP SCH ×2 (09:38→22:16)
--- NOTE | 2018-02-28 10:13 | PN ---
Progress Note, Physician Chief Complaint: feels better less cough no SOB, will start tapering steroids - Current Medication List Current Medications: Active Medications Acetaminophen (Tylenol -) 650 mg PO Q6H PRN PRN Reason: FEVER Last Admin: 02/19/18 21:19 Dose: 650 mg Al Hydroxide/Mg Hydroxide (Mylanta Oral Suspension -) 30 ml PO Q6H PRN PRN Reason: DYSPEPSIA Last Admin: 02/24/18 21:33 Dose: 30 ml Albuterol Sulfate (Ventolin 0.083% Nebulizer Soln -) 1 amp NEB Q4H PRN PRN Reason: SHORT OF BREATH/WHEEZING Last Admin: 02/27/18 20:43 Dose: 1 amp Alprazolam (Xanax -) 0.25 mg PO BID PRN PRN Reason: *FOR ANXIETY* Last Admin: 02/27/18 21:18 Dose: 0.25 mg Atorvastatin Calcium (Lipitor -) 80 mg PO [facility] Last Admin: 02/27/18 21:12 Dose: 80 mg Azithromycin (Zithromax -) 250 mg PO DAILY [facility] Last Admin: 02/28/18 09:34 Dose: 250 mg Budesonide/Formoterol Fumarate (Symbicort 160/4.5mcg -) 2 puff IH BID [facility] Last Admin: 02/28/18 09:35 Dose: 2 puff Clopidogrel Bisulfate (Plavix -) 75 mg PO DAILY [facility] Last Admin: 02/28/18 09:33 Dose: 75 mg Docusate Sodium (Colace -) 300 mg PO [facility] Last Admin: 02/27/18 21:11 Dose: 300 mg Fluticasone Propionate (Flonase -) 1 spray NS BID [facility] Last Admin: 02/28/18 09:34 Dose: 1 spray Folic Acid (Folic Acid -) 1 mg PO DAILY [facility] Last Admin: 02/28/18 09:33 Dose: 1 mg Furosemide (Lasix -) 20 mg PO DAILY [facility] Last Admin: 02/28/18 09:34 Dose: 20 mg Guaifenesin (Robitussin Dm -) 10 ml PO Q6H PRN PRN Reason: COUGH Insulin Aspart (Novolog Vial Sliding Scale -) 1 vial SQ AM [facility]; Protocol Last Admin: 02/28/18 06:33 Dose: Not Given Isosorbide Mononitrate (Imdur -) 30 mg PO BID [facility] Last Admin: 02/28/18 09:34 Dose: 30 mg Lidocaine (Lidoderm Patch -) 1 patch TP DAILY [facility] Last Admin: 02/28/18 09:35 Dose: 1 patch Meclizine HCl (Antivert -) 12.5 mg PO Q6H PRN PRN Reason: VERTIGO Methylprednisolone Sodium Succinate (Solu-Medrol -) 40 mg IVPB Q8H-IV [facility] Last Admin: 02/28/18 09:52 Dose: 40 mg Miscellaneous (Lidoderm Patch Removal) 1 each MC DAILY@2200 [facility] Last Admin: 02/27/18 21:22 Dose: 1 each Montelukast Sodium (Singulair -) 10 mg PO HS [facility] Last Admin: 02/27/18 21:18 Dose: 10 mg Nitroglycerin (Nitrostat -) 0.4 mg SL TID PRN PRN Reason: FOR CHEST PAIN Last Admin: 02/22/18 21:31 Dose: 0.4 mg Nystatin (Nystatin Oral Suspension -) 500,000 units PO Q6HPO [facility] Last Admin: 02/28/18 06:26 Dose: 500,000 units Nystatin (Mycostatin Cream -) 1 applic TP BID [facility] Last Admin: 02/28/18 09:38 Dose: 1 applic Pantoprazole Sodium (Protonix -) 40 mg PO DAILY [facility] Last Admin: 02/28/18 09:34 Dose: 40 mg Potassium Chloride (K-Dur -) 10 meq PO BID [facility] Last Admin: 02/28/18 09:33 Dose: 10 meq Ranitidine HCl (Zantac -) 150 mg PO DAILY [facility] Last Admin: 02/28/18 09:33 Dose: 150 mg Ranolazine (Ranexa -) 500 mg PO BID [facility] Last Admin: 02/28/18 09:34 Dose: 500 mg Sodium Chloride ([place] Nasal [place] -) 2 spray NS TID [facility] Last Admin: 02/28/18 06:26 Dose: 2 sprays Tiotropium [place] (Spiriva Respimat) 2 puff IH DAILY [facility] Last Admin: 02/28/18 09:35 Dose: 2 puff Verapamil HCl (Calan Sr -) 240 mg PO BID [facility] Last Admin: 02/28/18 09:35 Dose: 240 mg - Objective Vital Signs: Vital Signs Temperature 98.1 F 02/28/18 06:00 Pulse Rate 59 L 02/28/18 06:00 Respiratory Rate 02/28/18 06:00 Blood Pressure 113/56 02/28/18 06:00 O2 Sat by Pulse Oximetry (%) 96 02/27/18 21:00 Constitutional: Yes: No Distress, Calm Eyes: Yes: Conjunctiva Clear HENT: Yes: Atraumatic Neck: Yes: Supple Cardiovascular: Yes: Regular Rate and Rhythm Respiratory: Yes: Diminished Gastrointestinal: Yes: Soft. No: Distention Genitourinary: No: CVA Tenderness - Left, CVA Tenderness - Right Musculoskeletal: No: Back Pain, Joint Stiffness, Joint Swelling Extremities: No: Calf Tenderness, Cold, Cool, Cyanosis Edema: No Integumentary: No: Rash, Venous Stasis Changes Neurological: Yes: WNL, Alert, Oriented ...Motor Strength: WNL Psychiatric: Yes: WNL, Alert, Oriented. No: Agitated, Suicidal Ideation Labs: CBC, BMP 02/26/18 06:05 02/26/18 06:05 INR, PTT INR 0.98 (0.82-1.09) 02/14/18 18:29 - ....Imaging Other: Report Reviewed Assessment/Plan Patient is a 62yo female with PMH of [place] s/p angioplasty, carotid endarterectomy , COPD admitted with acute URI/ pneumonia and COPD exacerbation taper steroids; PULM f/u , continue nebs, antibiotics po; cough syrup prn cardiology and pulmonary f/u f/u labs gastric PFX while on steroids; BGM check while on steroids prn xanax for insomnia and anxiety; falls PFX d/w pt and staff
--- NOTE | 2018-02-28 11:08 | PN ---
Progress Note (short form) - Note Progress Note: Feels a little better, but not at baseline. Still some chest tightness and wheezing. Intake & Output 02/25/18 02/26/18 02/27/18 02/28/18 23:59 23:59 23:59 23:59 Intake Total 1000 440 250 Balance 1000 440 250 Last Vital Signs Temp Pulse Resp BP Pulse Ox 98.1 F 65 18 132/63 96 02/28/18 10:00 02/28/18 10:00 02/28/18 10:00 02/28/18 10:00 02/27/18 21:00 Active Medications Acetaminophen (Tylenol -) 650 mg PO Q6H PRN PRN Reason: FEVER Last Admin: 02/19/18 21:19 Dose: 650 mg Al Hydroxide/Mg Hydroxide (Mylanta Oral Suspension -) 30 ml PO Q6H PRN PRN Reason: DYSPEPSIA Last Admin: 02/24/18 21:33 Dose: 30 ml Albuterol Sulfate (Ventolin 0.083% Nebulizer Soln -) 1 amp NEB Q4H PRN PRN Reason: SHORT OF BREATH/WHEEZING Last Admin: 02/27/18 20:43 Dose: 1 amp Alprazolam (Xanax -) 0.25 mg PO BID PRN PRN Reason: *FOR ANXIETY* Last Admin: 02/27/18 21:18 Dose: 0.25 mg Atorvastatin Calcium (Lipitor -) 80 mg PO [facility] Last Admin: 02/27/18 21:12 Dose: 80 mg Azithromycin (Zithromax -) 250 mg PO DAILY [facility] Last Admin: 02/28/18 09:34 Dose: 250 mg Budesonide/Formoterol Fumarate (Symbicort 160/4.5mcg -) 2 puff IH BID [facility] Last Admin: 02/28/18 09:35 Dose: 2 puff Clopidogrel Bisulfate (Plavix -) 75 mg PO DAILY [facility] Last Admin: 02/28/18 09:33 Dose: 75 mg Docusate Sodium (Colace -) 300 mg PO [facility] Last Admin: 02/27/18 21:11 Dose: 300 mg Fluticasone Propionate (Flonase -) 1 spray NS BID [facility] Last Admin: 02/28/18 09:34 Dose: 1 spray Folic Acid (Folic Acid -) 1 mg PO DAILY [facility] Last Admin: 02/28/18 09:33 Dose: 1 mg Furosemide (Lasix -) 20 mg PO DAILY [facility] Last Admin: 02/28/18 09:34 Dose: 20 mg Guaifenesin (Robitussin Dm -) 10 ml PO Q6H PRN PRN Reason: COUGH Insulin Aspart (Novolog Vial Sliding Scale -) 1 vial SQ AM [facility]; Protocol Last Admin: 02/28/18 06:33 Dose: Not Given Isosorbide Mononitrate (Imdur -) 30 mg PO BID [facility] Last Admin: 02/28/18 09:34 Dose: 30 mg Lidocaine (Lidoderm Patch -) 1 patch TP DAILY [facility] Last Admin: 02/28/18 09:35 Dose: 1 patch Meclizine HCl (Antivert -) 12.5 mg PO Q6H PRN PRN Reason: VERTIGO Methylprednisolone Sodium Succinate (Solu-Medrol -) 40 mg IVPB BID [facility] Miscellaneous (Lidoderm Patch Removal) 1 each MC DAILY@2200 [facility] Last Admin: 02/27/18 21:22 Dose: 1 each Montelukast Sodium (Singulair -) 10 mg PO HS [facility] Last Admin: 02/27/18 21:18 Dose: 10 mg Nitroglycerin (Nitrostat -) 0.4 mg SL TID PRN PRN Reason: FOR CHEST PAIN Last Admin: 02/22/18 21:31 Dose: 0.4 mg Nystatin (Nystatin Oral Suspension -) 500,000 units PO Q6HPO [facility] Last Admin: 02/28/18 06:26 Dose: 500,000 units Nystatin (Mycostatin Cream -) 1 applic TP BID [facility] Last Admin: 02/28/18 09:38 Dose: 1 applic Pantoprazole Sodium (Protonix -) 40 mg PO DAILY [facility] Last Admin: 02/28/18 09:34 Dose: 40 mg Potassium Chloride (K-Dur -) 10 meq PO BID [facility] Last Admin: 02/28/18 09:33 Dose: 10 meq Ranitidine HCl (Zantac -) 150 mg PO DAILY [facility] Last Admin: 02/28/18 09:33 Dose: 150 mg Ranolazine (Ranexa -) 500 mg PO BID [facility] Last Admin: 02/28/18 09:34 Dose: 500 mg Sodium Chloride ([place] Nasal [place] -) 2 spray NS TID [facility] Last Admin: 02/28/18 06:26 Dose: 2 sprays Tiotropium [place] (Spiriva Respimat) 2 puff IH DAILY [facility] Last Admin: 02/28/18 09:35 Dose: 2 puff Verapamil HCl (Calan Sr -) 240 mg PO BID [facility] Last Admin: 02/28/18 09:35 Dose: 240 mg Gen: less tachypneic at rest Heart: RRR Lung: better air entry, + rhonchi, wheezes Abd: soft, nontender Ext: no edema Laboratory Results - last 24 hr 02/28/18 05:48 POC Glucometer 122 A/P Acute COPD Exacerbation CAD LV Diastolic Dysfunction HTN Hyperlipidemia PAD - Continue medrol at current dose - Inhaled bronchodilators standing and PRN - ABX - O2 to keep SpO2>90% - DVT prophylaxis Dr Bueno
--- NOTE | 2018-02-28 13:07 | PN ---
Progress Note, Physician History of Present Illness: Dyspnea, productive cough and wheeze slowly improving. - Current Medication List Current Medications: Active Medications Acetaminophen (Tylenol -) 650 mg PO Q6H PRN PRN Reason: FEVER Last Admin: 02/19/18 21:19 Dose: 650 mg Al Hydroxide/Mg Hydroxide (Mylanta Oral Suspension -) 30 ml PO Q6H PRN PRN Reason: DYSPEPSIA Last Admin: 02/24/18 21:33 Dose: 30 ml Albuterol Sulfate (Ventolin 0.083% Nebulizer Soln -) 1 amp NEB Q4H PRN PRN Reason: SHORT OF BREATH/WHEEZING Last Admin: 02/27/18 20:43 Dose: 1 amp Alprazolam (Xanax -) 0.25 mg PO BID PRN PRN Reason: *FOR ANXIETY* Last Admin: 02/27/18 21:18 Dose: 0.25 mg Atorvastatin Calcium (Lipitor -) 80 mg PO [facility] Last Admin: 02/27/18 21:12 Dose: 80 mg Azithromycin (Zithromax -) 250 mg PO DAILY [facility] Last Admin: 02/28/18 09:34 Dose: 250 mg Budesonide/Formoterol Fumarate (Symbicort 160/4.5mcg -) 2 puff IH BID [facility] Last Admin: 02/28/18 09:35 Dose: 2 puff Clopidogrel Bisulfate (Plavix -) 75 mg PO DAILY [facility] Last Admin: 02/28/18 09:33 Dose: 75 mg Docusate Sodium (Colace -) 300 mg PO [facility] Last Admin: 02/27/18 21:11 Dose: 300 mg Fluticasone Propionate (Flonase -) 1 spray NS BID [facility] Last Admin: 02/28/18 09:34 Dose: 1 spray Folic Acid (Folic Acid -) 1 mg PO DAILY [facility] Last Admin: 02/28/18 09:33 Dose: 1 mg Furosemide (Lasix -) 20 mg PO DAILY [facility] Last Admin: 02/28/18 09:34 Dose: 20 mg Guaifenesin (Robitussin Dm -) 10 ml PO Q6H PRN PRN Reason: COUGH Insulin Aspart (Novolog Vial Sliding Scale -) 1 vial SQ AM [facility]; Protocol Last Admin: 02/28/18 06:33 Dose: Not Given Isosorbide Mononitrate (Imdur -) 30 mg PO BID [facility] Last Admin: 02/28/18 09:34 Dose: 30 mg Lidocaine (Lidoderm Patch -) 1 patch TP DAILY [facility] Last Admin: 02/28/18 09:35 Dose: 1 patch Meclizine HCl (Antivert -) 12.5 mg PO Q6H PRN PRN Reason: VERTIGO Methylprednisolone Sodium Succinate (Solu-Medrol -) 40 mg IVPB BID [facility] Last Admin: 02/28/18 12:33 Dose: Not Given Miscellaneous (Lidoderm Patch Removal) 1 each MC DAILY@2200 [facility] Last Admin: 02/27/18 21:22 Dose: 1 each Montelukast Sodium (Singulair -) 10 mg PO HS [facility] Last Admin: 02/27/18 21:18 Dose: 10 mg Nitroglycerin (Nitrostat -) 0.4 mg SL TID PRN PRN Reason: FOR CHEST PAIN Last Admin: 02/22/18 21:31 Dose: 0.4 mg Nystatin (Nystatin Oral Suspension -) 500,000 units PO Q6HPO [facility] Last Admin: 02/28/18 12:42 Dose: 500,000 units Nystatin (Mycostatin Cream -) 1 applic TP BID [facility] Last Admin: 02/28/18 09:38 Dose: 1 applic Pantoprazole Sodium (Protonix -) 40 mg PO DAILY [facility] Last Admin: 02/28/18 09:34 Dose: 40 mg Potassium Chloride (K-Dur -) 10 meq PO BID [facility] Last Admin: 02/28/18 09:33 Dose: 10 meq Ranitidine HCl (Zantac -) 150 mg PO DAILY [facility] Last Admin: 02/28/18 09:33 Dose: 150 mg Ranolazine (Ranexa -) 500 mg PO BID [facility] Last Admin: 02/28/18 09:34 Dose: 500 mg Sodium Chloride ([place] Nasal [place] -) 2 spray NS TID [facility] Last Admin: 02/28/18 06:26 Dose: 2 sprays Tiotropium [place] (Spiriva Respimat) 2 puff IH DAILY [facility] Last Admin: 02/28/18 09:35 Dose: 2 puff Verapamil HCl (Calan Sr -) 240 mg PO BID [facility] Last Admin: 02/28/18 09:35 Dose: 240 mg - Objective Vital Signs: Vital Signs Temperature 98.1 F 02/28/18 10:00 Pulse Rate 65 02/28/18 10:00 Respiratory Rate 18 02/28/18 10:00 Blood Pressure 132/63 02/28/18 10:00 O2 Sat by Pulse Oximetry (%) 96 02/28/18 09:00 Constitutional: Yes: No Distress, Calm Neck: Yes: Supple Cardiovascular: Yes: Regular Rate and Rhythm Respiratory: Yes: Regular, Cough, Diminished, On Nasal O2, Wheezes Gastrointestinal: Yes: Normal Bowel Sounds, Soft Edema: No Labs: CBC, BMP 02/26/18 06:05 02/26/18 06:05 INR, PTT INR 0.98 (0.82-1.09) 02/14/18 18:29 Problem List - Problems (1) H/O carotid endarterectomy Code(s): Z98.890 - OTHER SPECIFIED POSTPROCEDURAL STATES (2) COPD exacerbation Code(s): J44.1 - CHRONIC OBSTRUCTIVE PULMONARY DISEASE W (ACUTE) EXACERBATION (3) Coronary artery disease Code(s): I25.10 - ATHSCL HEART DISEASE OF [place] CORONARY ARTERY W/O ANG PCTRS Qualifiers: Coronary Disease-Associated Artery/Lesion type: [place] artery [place] vs. 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 AE COPD slowly improving 2. CAD s/p CT, angina pectorus 3. Diastolic dysfunction 4. HTN/HCVD 5. Hyperlipidemia 6. Bilateral carotid artery disease post right CEA 7. Mesenteric ischemia post intervention 8. PAD post intervention P:1. BD, slow IV steroid taper with GI protection, empiric abx, Singulair, O2 as needed 2. Continue Verapamil SR 240 mg BID, Imdur 30 mg BID and Ranexa 500 mg BID 3. Continue Lipitor 80 mg QHS, Lasix 20 mg QD and Plavix 75 qd 4. 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 CTA carotids per vascular input
[2018-02-28] MEDS: ALBUTEROL SO4 0.083% IH SOL 2.5 MG/3 ML VIAL.NEB. NEB PRN ×2 (16:25→21:33)
[2018-02-28] MEDS: DOCUSATE SODIUM 100 MG CAPSULE (FP) PO SCH (22:13)
[2018-02-28] MEDS: ALPRAZolam 0.25 MG TABLET PO PRN (22:14)
[2018-02-28] MEDS: ATORVASTATIN CA 80 MG TABLET (FP) PO SCH (22:14)
[2018-02-28] MEDS: MONTELUKAST NA 10 MG TABLET PO SCH (22:15)
[2018-02-28] MEDS: LIDOCAINE PATCH REMOVAL MC SCH (22:16)
[2018-03-01] MEDS: ACETAMINOPHEN 325 MG TABLET (FP) PO PRN (02:31)
[2018-03-01] MEDS ORDERED: INSULIN (NOVOLOG) ASPART 100 UNITS/ML 10ML VIAL ONE (05:36)
[2018-03-01] MEDS: NYSTATIN 500,000 UNITS/5 ML SUSPENSION PO SCH ×4 (06:37→23:01)
[2018-03-01] MEDS: SODIUM CHLORIDE NASAL SPRAY 44 ML BOTTLE NS SCH ×3 (06:37→21:24)
[2018-03-01] MEDS: INSULIN SLIDING SCALE (NOVOLOG) 1 VIAL SQ SCH (06:39)
[2018-03-01] MEDS: ALBUTEROL SO4 0.083% IH SOL 2.5 MG/3 ML VIAL.NEB. NEB PRN ×2 (07:25→20:29)
[2018-03-01 07:34] LABS: ALBUMIN 2.7 g/dl (3.4-5.0); ANION GAP 8 (8-16); BLOOD UREA NITROGEN 22 mg/dL (7-18); CALCIUM 8.1 mg/dL (8.5-10.1); CHLORIDE 99 mmol/L (98-107); CO2 30 mmol/L (21-32); CREATININE 0.8 mg/dL (0.55-1.02); GLUCOSE,RANDOM 112 mg/dL (74-106); POTASSIUM 4.6 mmol/L (3.5-5.1); SGOT/AST 10 U/L (15-37); SGPT/ALT 30 U/L (12-78); SODIUM 137 mmol/L (136-145)
[2018-03-01 07:36] LABS: ALK PHOS 50 U/L (45-117); BILIRUBIN,TOTAL 0.5 mg/dL (0.2-1.0)
[2018-03-01 07:52] LABS: BASO % 0.2 % (0-2.0); HEMATOCRIT 36.4 % (32.4-45.2); HEMOGLOBIN 12.1 GM/dL (10.7-15.3); LYMPH % 5.1 % (8-40); MCH 29.1 pg (25.7-33.7); MCHC 33.3 g/dl (32.0-36.0); MEAN CELL VOLUME 87.3 fl (80-96); MEAN PLT VOLUME 6.6 fl (7.5-11.1); MONO % 4.1 % (3.8-10.2); NEUT % 90.6 % (42.8-82.8); PLATELET COUNT 188 K/MM3 (134-434); RBC 4.17 M/mm3 (3.60-5.2); WHITE BLOOD COUNT 11.8 K/mm3 (4.0-10.0)
--- NOTE | 2018-03-01 08:58 | PN ---
Progress Note, Physician Chief Complaint: had an acute SOB wheezing and "throat closing" this am; steroids increased to q8h again pulm f/u; ENT eval called - Current Medication List Current Medications: Active Medications Acetaminophen (Tylenol -) 650 mg PO Q6H PRN PRN Reason: FEVER Last Admin: 03/01/18 02:31 Dose: 650 mg Al Hydroxide/Mg Hydroxide (Mylanta Oral Suspension -) 30 ml PO Q6H PRN PRN Reason: DYSPEPSIA Last Admin: 02/24/18 21:33 Dose: 30 ml Albuterol Sulfate (Ventolin 0.083% Nebulizer Soln -) 1 amp NEB Q4H PRN PRN Reason: SHORT OF BREATH/WHEEZING Last Admin: 03/01/18 07:25 Dose: 1 amp Alprazolam (Xanax -) 0.25 mg PO BID PRN PRN Reason: *FOR ANXIETY* Last Admin: 02/28/18 22:14 Dose: 0.25 mg Atorvastatin Calcium (Lipitor -) 80 mg PO HS [facility] Last Admin: 02/28/18 22:14 Dose: 80 mg Azithromycin (Zithromax -) 250 mg PO DAILY [facility] Last Admin: 02/28/18 09:34 Dose: 250 mg Budesonide/Formoterol Fumarate (Symbicort 160/4.5mcg -) 2 puff IH BID [facility] Last Admin: 02/28/18 22:14 Dose: 2 puff Clopidogrel Bisulfate (Plavix -) 75 mg PO DAILY [facility] Last Admin: 02/28/18 09:33 Dose: 75 mg Docusate Sodium (Colace -) 300 mg PO HS [facility] Last Admin: 02/28/18 22:13 Dose: 300 mg Fluticasone Propionate (Flonase -) 1 spray NS BID [facility] Last Admin: 02/28/18 22:14 Dose: 1 spray Folic Acid (Folic Acid -) 1 mg PO DAILY [facility] Last Admin: 02/28/18 09:33 Dose: 1 mg Furosemide (Lasix -) 20 mg PO DAILY [facility] Last Admin: 02/28/18 09:34 Dose: 20 mg Guaifenesin (Robitussin Dm -) 10 ml PO Q6H PRN PRN Reason: COUGH Insulin Aspart (Novolog Vial Sliding Scale -) 1 vial SQ AM [facility]; Protocol Last Admin: 03/01/18 06:39 Dose: Not Given Isosorbide Mononitrate (Imdur -) 30 mg PO BID [facility] Last Admin: 02/28/18 22:13 Dose: 30 mg Lidocaine (Lidoderm Patch -) 1 patch TP DAILY [facility] Last Admin: 02/28/18 09:35 Dose: 1 patch Meclizine HCl (Antivert -) 12.5 mg PO Q6H PRN PRN Reason: VERTIGO Miscellaneous (Lidoderm Patch Removal) 1 each MC DAILY@2200 [facility] Last Admin: 02/28/18 22:16 Dose: Not Given Montelukast Sodium (Singulair -) 10 mg PO HS [facility] Last Admin: 02/28/18 22:15 Dose: 10 mg Nitroglycerin (Nitrostat -) 0.4 mg SL TID PRN PRN Reason: FOR CHEST PAIN Last Admin: 02/22/18 21:31 Dose: 0.4 mg Nystatin (Nystatin Oral Suspension -) 500,000 units PO Q6HPO [facility] Last Admin: 03/01/18 06:37 Dose: 500,000 units Nystatin (Mycostatin Cream -) 1 applic TP BID [facility] Last Admin: 02/28/18 22:16 Dose: Not Given Pantoprazole Sodium (Protonix -) 40 mg PO DAILY [facility] Last Admin: 02/28/18 09:34 Dose: 40 mg Potassium Chloride (K-Dur -) 10 meq PO BID [facility] Last Admin: 02/28/18 22:15 Dose: 10 meq Ranitidine HCl (Zantac -) 150 mg PO DAILY [facility] Last Admin: 02/28/18 09:33 Dose: 150 mg Ranolazine (Ranexa -) 500 mg PO BID [facility] Last Admin: 02/28/18 22:14 Dose: 500 mg Sodium Chloride ([place] Nasal [place] -) 2 spray NS TID [facility] Last Admin: 03/01/18 06:37 Dose: 2 sprays Tiotropium [place] (Spiriva Respimat) 2 puff IH DAILY [facility] Last Admin: 02/28/18 09:35 Dose: 2 puff Verapamil HCl (Calan Sr -) 240 mg PO BID [facility] Last Admin: 02/28/18 22:14 Dose: 240 mg - Objective Vital Signs: Vital Signs Temperature 98.1 F 03/01/18 06:00 Pulse Rate 67 03/01/18 06:00 Respiratory Rate 19 08/07/18 06:00 Blood Pressure 129/53 03/01/18 06:00 O2 Sat by Pulse Oximetry (%) 98 02/28/18 21:00 Constitutional: Yes: No Distress, Calm Eyes: Yes: Conjunctiva Clear HENT: Yes: Atraumatic Neck: Yes: Supple Cardiovascular: Yes: Regular Rate and Rhythm Respiratory: Yes: Wheezes Gastrointestinal: Yes: Soft. No: Distention Genitourinary: No: CVA Tenderness - Left, CVA Tenderness - Right Musculoskeletal: No: Joint Stiffness, Joint Swelling Extremities: No: Cold, Cool, Cyanosis Edema: No Integumentary: No: Rash, Venous Stasis Changes Neurological: Yes: WNL, Alert, Oriented ...Motor Strength: WNL Psychiatric: Yes: WNL, Alert, Oriented. No: Agitated, Suicidal Ideation Labs: CBC, BMP 03/01/18 06:15 03/01/18 06:15 INR, PTT INR 0.98 (0.82-1.09) 02/14/18 18:29 - ....Imaging Other: Report Reviewed Assessment/Plan Patient is a 62yo female with PMH of [place] s/p angioplasty, carotid endarterectomy , COPD admitted with acute URI/ pneumonia and COPD exacerbation increase iv steroids to q8h; PULM f/u , continue nebs, antibiotics po; cough syrup prn cardiology and pulmonary f/u ENT eval f/u labs gastric PFX while on steroids; BGM check while on steroids prn xanax for insomnia and anxiety; falls PFX d/w pt and staff
[2018-03-01] MEDS ORDERED: PT OWN MED DRAWER 7, Y5N ONE ×4 (10:21→17:54)
[2018-03-01] MEDS: ISOSORBIDE MONONITRATE 30 MG TAB.SR.24H (FP) PO SCH ×2 (10:30→21:25)
[2018-03-01] MEDS: FUROSEMIDE 20 MG TABLET (FP) PO SCH (10:30)
[2018-03-01] MEDS: CLOPIDOGREL BISULFATE 75 MG TABLET (FP) PO SCH (10:30)
[2018-03-01] MEDS: POTASSIUM CHLORIDE TABS 10 MEQ TABLET.ER (FP) PO SCH ×2 (10:31→21:26)
[2018-03-01] MEDS: PANTOPRAZOLE 40 MG TABLET (FP) PO SCH (10:31)
[2018-03-01] MEDS: AZITHROMYCIN 250 MG TABLET PO SCH (10:31)
[2018-03-01] MEDS: LIDOCAINE 5% TOPICAL PATCH TP SCH (10:31)
[2018-03-01] MEDS: methylPREDNISolone NA SUCC 40 MG/1 ML VIAL IVPB SCH ×2 (10:31→17:11)
[2018-03-01] MEDS: RANITIDINE HCL 150 MG TABLET (FP) PO SCH (10:31)
[2018-03-01] MEDS: FOLIC ACID 1 MG TABLET (FP) PO SCH (10:31)
[2018-03-01] MEDS: RANOLAZINE E.R. 500 MG TABLET (FP) PO SCH ×2 (10:31→21:26)
[2018-03-01] MEDS: NYSTATIN 100,000 UNIT/GM TOPICAL CREAM 15 GM TUBE TP SCH ×3 (10:37→21:24)
[2018-03-01] MEDS: FLUTICASONE PROP 0.05% 16 GM NASAL SPRAY NS SCH ×2 (11:00→21:32)
[2018-03-01] MEDS: BUDESONIDE/FORMETEROL FUMARATE 160/4.5 mcg INHALER IH SCH ×2 (11:00→21:24)
[2018-03-01] MEDS: VERAPAMIL HCL 240 MG E.R. TABLET (FP) PO SCH ×2 (11:00→21:25)
[2018-03-01] MEDS: TIOTROPIUM BROMIDE 2.5 MCG (SPIRIVA) RESPIMAT INHALER IH SCH (11:00)
--- NOTE | 2018-03-01 12:07 | PN ---
Progress Note, Physician Chief Complaint: Events noted Episode of SOB this am and received respiratory treatment History of Present Illness: Patient was seen and examined. Awake and alert. Chart was reviewed CXR unremarkable ECG shows no change - Current Medication List Current Medications: Active Medications Acetaminophen (Tylenol -) 650 mg PO Q6H PRN PRN Reason: FEVER Last Admin: 03/01/18 02:31 Dose: 650 mg Al Hydroxide/Mg Hydroxide (Mylanta Oral Suspension -) 30 ml PO Q6H PRN PRN Reason: DYSPEPSIA Last Admin: 02/24/18 21:33 Dose: 30 ml Albuterol Sulfate (Ventolin 0.083% Nebulizer Soln -) 1 amp NEB Q4H PRN PRN Reason: SHORT OF BREATH/WHEEZING Last Admin: 03/01/18 07:25 Dose: 1 amp Alprazolam (Xanax -) 0.25 mg PO BID PRN PRN Reason: *FOR ANXIETY* Last Admin: 02/28/18 22:14 Dose: 0.25 mg Atorvastatin Calcium (Lipitor -) 80 mg PO HS [facility] Last Admin: 02/28/18 22:14 Dose: 80 mg Azithromycin (Zithromax -) 250 mg PO DAILY [facility] Last Admin: 03/01/18 10:31 Dose: 250 mg Budesonide/Formoterol Fumarate (Symbicort 160/4.5mcg -) 2 puff IH BID [facility] Last Admin: 03/01/18 11:00 Dose: 2 sprays Clopidogrel Bisulfate (Plavix -) 75 mg PO DAILY [facility] Last Admin: 03/01/18 10:30 Dose: 75 mg Docusate Sodium (Colace -) 300 mg PO HS [facility] Last Admin: 02/28/18 22:13 Dose: 300 mg Fluticasone Propionate (Flonase -) 1 spray NS BID [facility] Last Admin: 03/01/18 11:00 Dose: 1 spray Folic Acid (Folic Acid -) 1 mg PO DAILY [facility] Last Admin: 03/01/18 10:31 Dose: 1 mg Furosemide (Lasix -) 20 mg PO DAILY [facility] Last Admin: 03/01/18 10:30 Dose: 20 mg Guaifenesin (Robitussin Dm -) 10 ml PO Q6H PRN PRN Reason: COUGH Insulin Aspart (Novolog Vial Sliding Scale -) 1 vial SQ AM [facility]; Protocol Last Admin: 03/01/18 06:39 Dose: Not Given Isosorbide Mononitrate (Imdur -) 30 mg PO BID [facility] Last Admin: 03/01/18 10:30 Dose: 30 mg Lidocaine (Lidoderm Patch -) 1 patch TP DAILY [facility] Last Admin: 03/01/18 10:31 Dose: 1 patch Meclizine HCl (Antivert -) 12.5 mg PO Q6H PRN PRN Reason: VERTIGO Methylprednisolone Sodium Succinate (Solu-Medrol -) 40 mg IVPB Q8H-IV [facility] Last Admin: 03/01/18 10:31 Dose: 40 mg Miscellaneous (Lidoderm Patch Removal) 1 each MC DAILY@2200 [facility] Last Admin: 02/28/18 22:16 Dose: Not Given Montelukast Sodium (Singulair -) 10 mg PO HS [facility] Last Admin: 02/28/18 22:15 Dose: 10 mg Nitroglycerin (Nitrostat -) 0.4 mg SL TID PRN PRN Reason: FOR CHEST PAIN Last Admin: 02/22/18 21:31 Dose: 0.4 mg Nystatin (Nystatin Oral Suspension -) 500,000 units PO Q6HPO [facility] Last Admin: 03/01/18 06:37 Dose: 500,000 units Nystatin (Mycostatin Cream -) 1 applic TP BID [facility] Last Admin: 03/01/18 10:37 Dose: 1 applic Pantoprazole Sodium (Protonix -) 40 mg PO DAILY [facility] Last Admin: 03/01/18 10:31 Dose: 40 mg Potassium Chloride (K-Dur -) 10 meq PO BID [facility] Last Admin: 03/01/18 10:31 Dose: 10 meq Ranitidine HCl (Zantac -) 150 mg PO DAILY [facility] Last Admin: 03/01/18 10:31 Dose: 150 mg Ranolazine (Ranexa -) 500 mg PO BID [facility] Last Admin: 03/01/18 10:31 Dose: 500 mg Sodium Chloride ([place] Nasal [place] -) 2 spray NS TID [facility] Last Admin: 03/01/18 06:37 Dose: 2 sprays Tiotropium [place] (Spiriva Respimat) 2 puff IH DAILY [facility] Last Admin: 03/01/18 11:00 Dose: 2 puff Verapamil HCl (Calan Sr -) 240 mg PO BID [facility] Last Admin: 03/01/18 11:00 Dose: 240 mg - Objective Vital Signs: Vital Signs Temperature 97.2 F L 03/01/18 10:26 Pulse Rate 76 03/01/18 10:26 Respiratory Rate 20 03/01/18 10:26 Blood Pressure 118/55 03/01/18 10:26 O2 Sat by Pulse Oximetry (%) 98 02/28/18 21:00 Eyes: Yes: PERRL HENT: Yes: Atraumatic Neck: Yes: Supple Cardiovascular: Yes: Regular Rate and Rhythm Respiratory: Yes: Diminished, On Nasal O2, SOB Gastrointestinal: Yes: Normal Bowel Sounds, Soft. No: Tenderness Edema: No Labs: CBC, BMP 03/01/18 06:15 03/01/18 06:15 - ....Imaging Chest X-ray: Report Reviewed Problem List - Problems (1) HTN (hypertension) Code(s): I10 - ESSENTIAL (PRIMARY) HYPERTENSION Qualifiers: Hypertension type: essential hypertension Qualified Code(s): I10 - Essential (primary) hypertension (2) Carotid stenosis Code(s): I65.29 - OCCLUSION AND STENOSIS OF UNSPECIFIED CAROTID ARTERY (3) H/O carotid endarterectomy Code(s): Z98.890 - OTHER SPECIFIED POSTPROCEDURAL STATES (4) ASHD (arteriosclerotic heart disease) Code(s): I25.10 - ATHSCL HEART DISEASE OF [place] CORONARY ARTERY W/O ANG PCTRS (5) COPD exacerbation Code(s): J44.1 - CHRONIC OBSTRUCTIVE PULMONARY DISEASE W (ACUTE) EXACERBATION (6) History of myocardial infarction Code(s): I25.2 - OLD MYOCARDIAL INFARCTION (7) Hyperlipidemia Code(s): E78.5 - HYPERLIPIDEMIA, UNSPECIFIED Qualifiers: Hyperlipidemia type: pure hypercholesterolemia Qualified Code(s): E78.00 - Pure hypercholesterolemia, unspecified; E78.0 - Pure hypercholesterolemia (8) Peripheral artery disease Code(s): I73.9 - PERIPHERAL VASCULAR DISEASE, UNSPECIFIED Assessment/Plan 1. Clinical presentation c/w acute exacerbation of COPD and probable pneumonia 2. Chronic diastolic LV dysfunction with class I-II NYHA classification heart failure 3. CAD, angina 4. HTN 5. Hypercholesterolemia 6. Carotid stenosis s/p CEA 7. PVD post intervention 8. Mesenteric ischemia PLAN: 1. Steroids and bronchodilators. Continue empiric antibiotics 2. Continue Verapamil and Imdur 3. Continue Statin 4. Continue Plavix 5. Continue Ranexa 6. Continue Diuretics 7. Pulmonary follow up Follow up with Dr. Luis Eduardo Manning upon discharge Gerard Nichols MD
--- NOTE | 2018-03-01 12:41 | PN ---
Progress Note (short form) - Note Progress Note: Had an acute episode of SOB at 7 AM. Required 2 STAT treatments. Says that her "air seemed cut off" in the mid neck area. Now feels better, but not as good as yesterday. CXR: No acute process Intake & Output 02/26/18 02/27/18 02/28/18 03/01/18 23:59 23:59 23:59 23:59 Intake Total 440 250 600 Balance 440 250 600 Last Vital Signs Temp Pulse Resp BP Pulse Ox 97.2 F L 76 20 118/55 98 03/01/18 10:26 03/01/18 10:26 03/01/18 10:26 03/01/18 10:26 02/28/18 21:00 Active Medications Acetaminophen (Tylenol -) 650 mg PO Q6H PRN PRN Reason: FEVER Last Admin: 03/01/18 02:31 Dose: 650 mg Al Hydroxide/Mg Hydroxide (Mylanta Oral Suspension -) 30 ml PO Q6H PRN PRN Reason: DYSPEPSIA Last Admin: 02/24/18 21:33 Dose: 30 ml Albuterol Sulfate (Ventolin 0.083% Nebulizer Soln -) 1 amp NEB Q4H PRN PRN Reason: SHORT OF BREATH/WHEEZING Last Admin: 03/01/18 07:25 Dose: 1 amp Alprazolam (Xanax -) 0.25 mg PO BID PRN PRN Reason: *FOR ANXIETY* Last Admin: 02/28/18 22:14 Dose: 0.25 mg Atorvastatin Calcium (Lipitor -) 80 mg PO [facility] Last Admin: 02/28/18 22:14 Dose: 80 mg Azithromycin (Zithromax -) 250 mg PO DAILY [facility] Last Admin: 03/01/18 10:31 Dose: 250 mg Budesonide/Formoterol Fumarate (Symbicort 160/4.5mcg -) 2 puff IH BID [facility] Last Admin: 03/01/18 11:00 Dose: 2 sprays Clopidogrel Bisulfate (Plavix -) 75 mg PO DAILY [facility] Last Admin: 03/01/18 10:30 Dose: 75 mg Docusate Sodium (Colace -) 300 mg PO [facility] Last Admin: 02/28/18 22:13 Dose: 300 mg Fluticasone Propionate (Flonase -) 1 spray NS BID [facility] Last Admin: 03/01/18 11:00 Dose: 1 spray Folic Acid (Folic Acid -) 1 mg PO DAILY [facility] Last Admin: 03/01/18 10:31 Dose: 1 mg Furosemide (Lasix -) 20 mg PO DAILY [facility] Last Admin: 03/01/18 10:30 Dose: 20 mg Guaifenesin (Robitussin Dm -) 10 ml PO Q6H PRN PRN Reason: COUGH Insulin Aspart (Novolog Vial Sliding Scale -) 1 vial SQ AM [facility]; Protocol Last Admin: 03/01/18 06:39 Dose: Not Given Isosorbide Mononitrate (Imdur -) 30 mg PO BID [facility] Last Admin: 03/01/18 10:30 Dose: 30 mg Lidocaine (Lidoderm Patch -) 1 patch TP DAILY [facility] Last Admin: 03/01/18 10:31 Dose: 1 patch Meclizine HCl (Antivert -) 12.5 mg PO Q6H PRN PRN Reason: VERTIGO Methylprednisolone Sodium Succinate (Solu-Medrol -) 40 mg IVPB Q8H-IV [facility] Last Admin: 03/01/18 10:31 Dose: 40 mg Miscellaneous (Lidoderm Patch Removal) 1 each MC DAILY@2200 [facility] Last Admin: 02/28/18 22:16 Dose: Not Given Montelukast Sodium (Singulair -) 10 mg PO HS [facility] Last Admin: 02/28/18 22:15 Dose: 10 mg Nitroglycerin (Nitrostat -) 0.4 mg SL TID PRN PRN Reason: FOR CHEST PAIN Last Admin: 02/22/18 21:31 Dose: 0.4 mg Nystatin (Nystatin Oral Suspension -) 500,000 units PO Q6HPO [facility] Last Admin: 03/01/18 12:20 Dose: 500,000 units Nystatin (Mycostatin Cream -) 1 applic TP BID [facility] Last Admin: 03/01/18 10:37 Dose: 1 applic Pantoprazole Sodium (Protonix -) 40 mg PO DAILY [facility] Last Admin: 03/01/18 10:31 Dose: 40 mg Potassium Chloride (K-Dur -) 10 meq PO BID [facility] Last Admin: 03/01/18 10:31 Dose: 10 meq Ranitidine HCl (Zantac -) 150 mg PO DAILY [facility] Last Admin: 03/01/18 10:31 Dose: 150 mg Ranolazine (Ranexa -) 500 mg PO BID [facility] Last Admin: 03/01/18 10:31 Dose: 500 mg Sodium Chloride ([place] Nasal [place] -) 2 spray NS TID [facility] Last Admin: 03/01/18 06:37 Dose: 2 sprays Tiotropium [place] (Spiriva Respimat) 2 puff IH DAILY [facility] Last Admin: 03/01/18 11:00 Dose: 2 puff Verapamil HCl (Calan Sr -) 240 mg PO BID [facility] Last Admin: 03/01/18 11:00 Dose: 240 mg Gen: NAD, Anxious Heart: RRR Lung: Scattered bilateral expiratory wheezes/rhonchi Abd: soft, nontender Ext: no edema Laboratory Results - last 24 hr 03/01/18 03/01/18 03/01/18 06:15 06:15 06:36 WBC 11.8 H RBC 4.17 Hgb 12.1 Hct 36.4 MCV 87.3 MCH 29.1 MCHC 33.3 RDW 15.0 Plt Count 188 MPV 6.6 L Absolute Neuts (auto) 10.7 Neutrophils % 90.6 H Lymphocytes % 5.1 L D Monocytes % 4.1 Eosinophils % 0.0 D Basophils % 0.2 D Nucleated RBC % 0 Sodium 137 Potassium 4.6 Chloride 99 Carbon Dioxide 30 Anion Gap 8 BUN 22 H Creatinine 0.8 Creat Clearance w eGFR > 60 POC Glucometer 116 Random Glucose 112 H Calcium 8.1 L Total Bilirubin 0.5 AST 10 L ALT 30 Alkaline Phosphatase 50 D Total Protein 5.0 L Albumin 2.7 L A/P Acute COPD Exacerbation with acute bronchospasm this AM CAD LV Diastolic Dysfunction HTN Hyperlipidemia PAD - Continue medrol at current dose - Inhaled bronchodilators standing and PRN - ABX - O2 to keep SpO2>90% - DVT prophylaxis Dr Bueno
--- NOTE | 2018-03-01 16:25 | EKG ---
Test Reason : Blood Pressure : / mmHG Vent. Rate : 073 BPM Atrial Rate : 073 BPM P-R Int : 158 ms QRS Dur : 086 ms QT Int : 386 ms P-R-T Axes : 074 058 073 degrees QTc Int : 425 ms NORMAL SINUS RHYTHM NONSPECIFIC ST ABNORMALITY ABNORMAL ECG Confirmed by Guevara Goins MD ([id number]) on 03/01/2018 4:25:12 PM Referred By: FRANCISCO OQUENDO Confirmed By:Guevara Goins MD
[2018-03-01] MEDS: MONTELUKAST NA 10 MG TABLET PO SCH (21:25)
[2018-03-01] MEDS: ATORVASTATIN CA 80 MG TABLET (FP) PO SCH (21:26)
[2018-03-01] MEDS: DOCUSATE SODIUM 100 MG CAPSULE (FP) PO SCH (21:26)
[2018-03-01] MEDS: LIDOCAINE PATCH REMOVAL MC SCH (21:26)
[2018-03-01] MEDS: ALPRAZolam 0.25 MG TABLET PO PRN (21:26)
[2018-03-02] MEDS: methylPREDNISolone NA SUCC 40 MG/1 ML VIAL IVPB SCH ×3 (01:45→18:10)
[2018-03-02] MEDS: ALBUTEROL SO4 0.083% IH SOL 2.5 MG/3 ML VIAL.NEB. NEB PRN ×4 (03:58→21:50)
[2018-03-02] MEDS: NYSTATIN 500,000 UNITS/5 ML SUSPENSION PO SCH ×4 (06:34→23:02)
[2018-03-02] MEDS: SODIUM CHLORIDE NASAL SPRAY 44 ML BOTTLE NS SCH ×3 (06:35→22:43)
[2018-03-02] MEDS: INSULIN SLIDING SCALE (NOVOLOG) 1 VIAL SQ SCH (06:36)
--- NOTE | 2018-03-02 07:51 | PN ---
Progress Note, Physician Chief Complaint: feels better; seen by pulm, ENT - Current Medication List Current Medications: Active Medications Acetaminophen (Tylenol -) 650 mg PO Q6H PRN PRN Reason: FEVER Last Admin: 03/01/18 02:31 Dose: 650 mg Al Hydroxide/Mg Hydroxide (Mylanta Oral Suspension -) 30 ml PO Q6H PRN PRN Reason: DYSPEPSIA Last Admin: 02/24/18 21:33 Dose: 30 ml Albuterol Sulfate (Ventolin 0.083% Nebulizer Soln -) 1 amp NEB Q4H PRN PRN Reason: SHORT OF BREATH/WHEEZING Last Admin: 03/02/18 03:58 Dose: 1 amp Alprazolam (Xanax -) 0.25 mg PO BID PRN PRN Reason: *FOR ANXIETY* Last Admin: 03/01/18 21:26 Dose: 0.25 mg Atorvastatin Calcium (Lipitor -) 80 mg PO HS [facility] Last Admin: 03/01/18 21:26 Dose: 80 mg Azithromycin (Zithromax -) 250 mg PO DAILY [facility] Last Admin: 03/01/18 10:31 Dose: 250 mg Budesonide/Formoterol Fumarate (Symbicort 160/4.5mcg -) 2 puff IH BID [facility] Last Admin: 03/01/18 21:24 Dose: 2 sprays Clopidogrel Bisulfate (Plavix -) 75 mg PO DAILY [facility] Last Admin: 03/01/18 10:30 Dose: 75 mg Docusate Sodium (Colace -) 300 mg PO HS [facility] Last Admin: 03/01/18 21:26 Dose: 300 mg Fluticasone Propionate (Flonase -) 1 spray NS BID [facility] Last Admin: 03/01/18 21:32 Dose: 1 spray Folic Acid (Folic Acid -) 1 mg PO DAILY [facility] Last Admin: 03/01/18 10:31 Dose: 1 mg Furosemide (Lasix -) 20 mg PO DAILY [facility] Last Admin: 03/01/18 10:30 Dose: 20 mg Guaifenesin (Robitussin Dm -) 10 ml PO Q6H PRN PRN Reason: COUGH Insulin Aspart (Novolog Vial Sliding Scale -) 1 vial SQ AM [facility]; Protocol Last Admin: 03/02/18 06:36 Dose: Not Given Isosorbide Mononitrate (Imdur -) 30 mg PO BID [facility] Last Admin: 03/01/18 21:25 Dose: 30 mg Lidocaine (Lidoderm Patch -) 1 patch TP DAILY [facility] Last Admin: 03/01/18 10:31 Dose: 1 patch Meclizine HCl (Antivert -) 12.5 mg PO Q6H PRN PRN Reason: VERTIGO Methylprednisolone Sodium Succinate (Solu-Medrol -) 40 mg IVPB Q8H-IV [facility] Last Admin: 03/02/18 01:45 Dose: 40 mg Miscellaneous (Lidoderm Patch Removal) 1 each MC DAILY@2200 [facility] Last Admin: 03/01/18 21:26 Dose: 1 each Montelukast Sodium (Singulair -) 10 mg PO HS [facility] Last Admin: 03/01/18 21:25 Dose: 10 mg Nitroglycerin (Nitrostat -) 0.4 mg SL TID PRN PRN Reason: FOR CHEST PAIN Last Admin: 02/22/18 21:31 Dose: 0.4 mg Nystatin (Nystatin Oral Suspension -) 500,000 units PO Q6HPO [facility] Last Admin: 03/02/18 06:34 Dose: 500,000 units Nystatin (Mycostatin Cream -) 1 applic TP BID [facility] Last Admin: 03/01/18 21:24 Dose: 1 applic Pantoprazole Sodium (Protonix -) 40 mg PO DAILY [facility] Last Admin: 03/01/18 10:31 Dose: 40 mg Potassium Chloride (K-Dur -) 10 meq PO BID [facility] Last Admin: 03/01/18 21:26 Dose: 10 meq Ranitidine HCl (Zantac -) 150 mg PO DAILY [facility] Last Admin: 03/01/18 10:31 Dose: 150 mg Ranolazine (Ranexa -) 500 mg PO BID [facility] Last Admin: 03/01/18 21:26 Dose: 500 mg Sodium Chloride ([place] Nasal [place] -) 2 spray NS TID [facility] Last Admin: 03/02/18 06:35 Dose: 2 sprays Tiotropium [place] (Spiriva Respimat) 2 puff IH DAILY [facility] Last Admin: 03/01/18 11:00 Dose: 2 puff Verapamil HCl (Calan Sr -) 240 mg PO BID [facility] Last Admin: 03/01/18 21:25 Dose: 240 mg - Objective Vital Signs: Vital Signs Temperature 97.8 F 03/02/18 06:00 Pulse Rate 68 03/02/18 06:00 Respiratory Rate 20 03/02/18 06:00 Blood Pressure 125/60 03/02/18 06:00 O2 Sat by Pulse Oximetry (%) 97 03/01/18 21:00 Constitutional: Yes: No Distress, Calm Eyes: Yes: Conjunctiva Clear HENT: Yes: Atraumatic Neck: Yes: Supple Cardiovascular: Yes: Regular Rate and Rhythm Respiratory: Yes: Diminished Gastrointestinal: Yes: Soft. No: Distention Genitourinary: No: CVA Tenderness - Left, CVA Tenderness - Right Musculoskeletal: No: Joint Stiffness, Joint Swelling Extremities: No: Cold, Cool, Cyanosis Edema: No Integumentary: No: Rash, Skin Tear, Venous Stasis Changes Neurological: Yes: WNL, Alert, Oriented ...Motor Strength: WNL Psychiatric: Yes: WNL, Alert, Oriented. No: Agitated, Suicidal Ideation Labs: CBC, BMP 03/01/18 06:15 03/01/18 06:15 INR, PTT INR 0.98 (0.82-1.09) 02/14/18 18:29 - ....Imaging Chest X-ray: Report Reviewed EKG: Report Reviewed Other: Report Reviewed Assessment/Plan Patient is a 62yo female with PMH of [place] s/p angioplasty, carotid endarterectomy , COPD admitted with acute URI/ pneumonia and COPD exacerbation increased iv steroids to q8h; PULM f/u , continue nebs, antibiotics po; cough syrup prn cardiology and pulmonary f/u ENT eval f/u labs gastric PFX while on steroids; BGM check while on steroids prn xanax for insomnia and anxiety; falls PFX d/w pt and staff
[2018-03-02] MEDS ORDERED: PT OWN MED DRAWER 7, Y5N ONE ×4 (09:48→21:57)
[2018-03-02] MEDS: PANTOPRAZOLE 40 MG TABLET (FP) PO SCH (09:58)
[2018-03-02] MEDS: FOLIC ACID 1 MG TABLET (FP) PO SCH (09:58)
[2018-03-02] MEDS: AZITHROMYCIN 250 MG TABLET PO SCH (09:58)
[2018-03-02] MEDS: POTASSIUM CHLORIDE TABS 10 MEQ TABLET.ER (FP) PO SCH ×2 (09:58→22:40)
[2018-03-02] MEDS: RANITIDINE HCL 150 MG TABLET (FP) PO SCH (09:58)
[2018-03-02] MEDS: NYSTATIN 100,000 UNIT/GM TOPICAL CREAM 15 GM TUBE TP SCH ×2 (09:58→22:41)
[2018-03-02] MEDS: FUROSEMIDE 20 MG TABLET (FP) PO SCH (09:58)
[2018-03-02] MEDS: FLUTICASONE PROP 0.05% 16 GM NASAL SPRAY NS SCH ×2 (09:58→22:42)
[2018-03-02] MEDS: RANOLAZINE E.R. 500 MG TABLET (FP) PO SCH ×2 (09:58→22:41)
[2018-03-02] MEDS: ISOSORBIDE MONONITRATE 30 MG TAB.SR.24H (FP) PO SCH ×2 (09:58→22:40)
[2018-03-02] MEDS: CLOPIDOGREL BISULFATE 75 MG TABLET (FP) PO SCH (09:58)
[2018-03-02] MEDS: BUDESONIDE/FORMETEROL FUMARATE 160/4.5 mcg INHALER IH SCH ×2 (09:59→22:43)
[2018-03-02] MEDS: LIDOCAINE 5% TOPICAL PATCH TP SCH (09:59)
[2018-03-02] MEDS: VERAPAMIL HCL 240 MG E.R. TABLET (FP) PO SCH ×2 (09:59→22:43)
[2018-03-02] MEDS: TIOTROPIUM BROMIDE 2.5 MCG (SPIRIVA) RESPIMAT INHALER IH SCH (09:59)
--- NOTE | 2018-03-02 12:14 | PN ---
Progress Note (short form) - Note Progress Note: Much improved from yesterday. The sensation of "throat" pain essentially resolved. Appears much more comfortable. Less anxious as well. Gen: NAD, appears more comfortable Heart: RRR Lung: Scattered bilateral rhonchi, no wheezing appreciated Abd: soft, nontender Ext: no edema Laboratory Results - last 24 hr 03/02/18 06:34 POC Glucometer 114 A/P Acute COPD Exacerbation with acute bronchospasm this AM CAD LV Diastolic Dysfunction HTN Hyperlipidemia PAD - Taper medrol today and depending on her clinical condition, can possibly change to Prednisone in AM - Noted ENT evaluation was called - Inhaled bronchodilators standing and PRN - ABX - O2 to keep SpO2>90% - DVT prophylaxis Dr Bueno
--- NOTE | 2018-03-02 12:42 | PN ---
Progress Note, Physician History of Present Illness: Dyspnea, productive cough and wheeze slowly improving. - Current Medication List Current Medications: Active Medications Acetaminophen (Tylenol -) 650 mg PO Q6H PRN PRN Reason: FEVER Last Admin: 03/01/18 02:31 Dose: 650 mg Al Hydroxide/Mg Hydroxide (Mylanta Oral Suspension -) 30 ml PO Q6H PRN PRN Reason: DYSPEPSIA Last Admin: 02/24/18 21:33 Dose: 30 ml Albuterol Sulfate (Ventolin 0.083% Nebulizer Soln -) 1 amp NEB Q4H PRN PRN Reason: SHORT OF BREATH/WHEEZING Last Admin: 03/02/18 08:04 Dose: 1 amp Alprazolam (Xanax -) 0.25 mg PO BID PRN PRN Reason: *FOR ANXIETY* Last Admin: 03/01/18 21:26 Dose: 0.25 mg Atorvastatin Calcium (Lipitor -) 80 mg PO [facility] Last Admin: 03/01/18 21:26 Dose: 80 mg Azithromycin (Zithromax -) 250 mg PO DAILY [facility] Last Admin: 03/02/18 09:58 Dose: 250 mg Budesonide/Formoterol Fumarate (Symbicort 160/4.5mcg -) 2 puff IH BID [facility] Last Admin: 03/02/18 09:59 Dose: 2 puff Clopidogrel Bisulfate (Plavix -) 75 mg PO DAILY [facility] Last Admin: 03/02/18 09:58 Dose: 75 mg Docusate Sodium (Colace -) 300 mg PO [facility] Last Admin: 03/01/18 21:26 Dose: 300 mg Fluticasone Propionate (Flonase -) 1 spray NS BID [facility] Last Admin: 03/01/18 21:32 Dose: 1 spray Folic Acid (Folic Acid -) 1 mg PO DAILY [facility] Last Admin: 03/02/18 09:58 Dose: 1 mg Furosemide (Lasix -) 20 mg PO DAILY [facility] Last Admin: 03/02/18 09:58 Dose: 20 mg Guaifenesin (Robitussin Dm -) 10 ml PO Q6H PRN PRN Reason: COUGH Insulin Aspart (Novolog Vial Sliding Scale -) 1 vial SQ AM [facility]; Protocol Last Admin: 03/02/18 06:36 Dose: Not Given Isosorbide Mononitrate (Imdur -) 30 mg PO BID [facility] Last Admin: 03/02/18 09:58 Dose: 30 mg Lidocaine (Lidoderm Patch -) 1 patch TP DAILY [facility] Last Admin: 03/02/18 09:59 Dose: 1 patch Meclizine HCl (Antivert -) 12.5 mg PO Q6H PRN PRN Reason: VERTIGO Methylprednisolone Sodium Succinate (Solu-Medrol -) 40 mg IVPB Q8H-IV [facility] Last Admin: 03/02/18 09:58 Dose: 40 mg Miscellaneous (Lidoderm Patch Removal) 1 each MC DAILY@2200 [facility] Last Admin: 03/01/18 21:26 Dose: 1 each Montelukast Sodium (Singulair -) 10 mg PO HS [facility] Last Admin: 03/01/18 21:25 Dose: 10 mg Nitroglycerin (Nitrostat -) 0.4 mg SL TID PRN PRN Reason: FOR CHEST PAIN Last Admin: 02/22/18 21:31 Dose: 0.4 mg Nystatin (Nystatin Oral Suspension -) 500,000 units PO Q6HPO [facility] Last Admin: 03/02/18 12:23 Dose: 500,000 units Nystatin (Mycostatin Cream -) 1 applic TP BID [facility] Last Admin: 03/01/18 21:24 Dose: 1 applic Pantoprazole Sodium (Protonix -) 40 mg PO DAILY [facility] Last Admin: 03/02/18 09:58 Dose: 40 mg Potassium Chloride (K-Dur -) 10 meq PO BID [facility] Last Admin: 03/02/18 09:58 Dose: 10 meq Ranitidine HCl (Zantac -) 150 mg PO DAILY [facility] Last Admin: 03/02/18 09:58 Dose: 150 mg Ranolazine (Ranexa -) 500 mg PO BID [facility] Last Admin: 03/02/18 09:58 Dose: 500 mg Sodium Chloride ([place] Nasal [place] -) 2 spray NS TID [facility] Last Admin: 03/02/18 06:35 Dose: 2 sprays Tiotropium [place] (Spiriva Respimat) 2 puff IH DAILY [facility] Last Admin: 03/02/18 09:59 Dose: 2 puff Verapamil HCl (Calan Sr -) 240 mg PO BID [facility] Last Admin: 03/02/18 09:59 Dose: 240 mg - Objective Vital Signs: Vital Signs Temperature 97.5 F L 03/02/18 09:51 Pulse Rate 81 03/02/18 09:51 Respiratory Rate 24 03/02/18 09:51 Blood Pressure 119/74 03/02/18 09:51 O2 Sat by Pulse Oximetry (%) 97 03/01/18 21:00 Constitutional: Yes: No Distress, Calm Neck: Yes: Supple Cardiovascular: Yes: Regular Rate and Rhythm Respiratory: Yes: Regular, Diminished, On Nasal O2, SOB, Wheezes Gastrointestinal: Yes: Normal Bowel Sounds, Soft Edema: No Labs: CBC, BMP 03/01/18 06:15 03/01/18 06:15 INR, PTT INR 0.98 (0.82-1.09) 02/14/18 18:29 - ....Imaging Chest X-ray: Report Reviewed (NAD) EKG: Report Reviewed (NSR nonspec ST changes) Problem List - Problems (1) H/O carotid endarterectomy Code(s): Z98.890 - OTHER SPECIFIED POSTPROCEDURAL STATES (2) COPD exacerbation Code(s): J44.1 - CHRONIC OBSTRUCTIVE PULMONARY DISEASE W (ACUTE) EXACERBATION (3) Coronary artery disease Code(s): I25.10 - ATHSCL HEART DISEASE OF [place] CORONARY ARTERY W/O ANG PCTRS Qualifiers: Coronary Disease-Associated Artery/Lesion type: [place] artery [place] vs. 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 AE COPD slowly improving 2. CAD s/p PA, angina pectorus 3. Diastolic dysfunction 4. HTN/HCVD 5. Hyperlipidemia 6. Bilateral carotid artery disease post right CEA 7. Mesenteric ischemia post intervention 8. PAD post intervention P:1. BD, slow IV steroid taper with GI protection, empiric abx, Singulair, O2 as needed to keep SpO2>90% 2. Continue Verapamil SR 240 mg BID, Imdur 30 mg BID and Ranexa 500 mg BID 3. Continue Lipitor 80 mg QHS, Lasix 20 mg QD and Plavix 75 qd 4. Follow up with Dr. Luis Eduardo Manning, patient's manager business information upon discharge 5. CTA carotids per vascular input 6. DVT prophylaxis
--- NOTE | 2018-03-02 13:22 | CON.ENT ---
Consult Consult Specialty:: ENT Referred by:: Dr. Cohn Reason for Consultation:: throat problem - History of Present Illness Chief Complaint: throat closed, breathing problem History of Present Illness: 62 yo F with hx COPD, admitted with acute exacerbation on i nhaled medications and nebulizer, steroids had acute episode of throat closing yesterday, not after coughing fit, improved now on IV steroids mild soreness, voice ok hx nasal spray use, hx GERD, heartburn, on ranitidine, + one other, under care of Dr. Hoff also hx vertigo, intermittent years ago, still occasional symptoms also reports dysphagia, sometimes chokes on fluids, or sometimes solids no swallowing test per her recollection. - History Source History Provided By: Patient, Medical Record Limitations to Obtaining History: No Limitations - Past Medical History Cardio/Vascular: Yes: CAD, HTN, [place] (2011 transferred to [facility], no stents, told of ? Prinzmetal angina? ), Other (left ventricular end diastolic dysfunction, peripheral and carotid vascular disease ) Pulmonary: Yes: Asthma, COPD Gastrointestinal: Yes: Diverticulosis, Gastritis, GERD (with short segment Barretts), Hiatal Hernia, Other (Mesenteric ischemia treated with SMA bypass 2012. Incisional hernia.) Renal/: Yes: Renal Failure (required dialysis for several weeks following contrast induced renal fauilure after [place] in 2011) Psych: Yes: Anxiety, Depression Endocrine: Yes: Other (Euthyroid goiter) - Past Surgical History Past Surgical History: Yes: Carotid Endarterectomy, Cholecystectomy, Colonoscopy , Upper Endoscopy - Alcohol/Substance Use Hx Alcohol Use: No History of Substance Use: reports: None - Smoking History Smoking history: Former smoker Have you smoked in the past 12 months: Yes Aproximately how many cigarettes per day: 10 If you are a former smoker, when did you quit?: 1YR - Social History Usual Living Arrangement: With Spouse ADL: Independent 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 History of Recent Travel: No Home Medications - Allergies Allergies/Adverse Reactions: Allergies Allergy/AdvReac Type Severity Reaction Status Date / Time No Known Drug Allergies Allergy Verified 02/14/18 17:59 - Home Medications Home Medications: Ambulatory Orders Albuterol 2.5/Ipratropium 0.5 [Duoneb -] 1 neb NEB Q4H PRN #0 vial 12/27/12 Atorvastatin Calcium [Lipitor] 80 mg PO HS #0 tablet 12/27/12 Clopidogrel Bisulfate [Plavix -] 75 mg PO DAILY #0 tablet 12/27/12 Folic Acid - 1 mg PO DAILY #0 tablet 12/27/12 Furosemide [Lasix -] 20 mg PO DAILY #0 tablet 12/27/12 Isosorbide Mononitrate [Imdur] 30 mg PO BID #0 tab.sr.24h 12/27/12 Montelukast Na [Singulair -] 10 mg PO HS #0 tablet 12/27/12 Ranitidine [Zantac -] 150 mg PO DAILY #0 tablet 12/27/12 Tiotropium [place] [Spiriva] 1 inh IH DAILY #0 inh 12/27/12 Fluticasone Prop 0.05% Nasal [Flonase -] 1 - 2 spray NS BID #1 spray.pump Mag Hydrox/Al Hydrox/Simeth [Mylanta Oral Suspension -] 30 ml PO Q6H PRN #0 cup 04/16/15 Acetaminophen [Tylenol .Regular Strength -] 650 mg PO Q6H PRN #0 tablet Docusate Sodium [Colace -] 300 mg PO HS capsule 08/16/16 Nitroglycerin 0.4 mg SL AM PRN #90 tab.subl 08/16/16 Pantoprazole Sodium [Protonix -] 40 mg PO DAILY #90 tablet.ec 08/16/16 Ranolazine [Ranexa -] 500 mg PO BID #180 tab 08/16/16 Verapamil HCl ER [Calan Sr -] 240 mg PO BID #180 tablet.er 08/16/16 Potassium Chloride [K-Dur -] 10 meq PO BID 02/15/18 Family Disease History - Family Disease History Family Disease History: Heart Disease: Father ( 73 of melanoma), Mother ( 73 of COPD), Brother ( of throat cancer), [place]: Father, Brother, Respiratory: Mother Physical Exam-ENT Vital Signs: Vital Signs Temperature 97.5 F L 03/02/18 09:51 Pulse Rate 81 03/02/18 09:51 Respiratory Rate 24 03/02/18 09:51 Blood Pressure 119/74 03/02/18 09:51 O2 Sat by Pulse Oximetry (%) 97 03/01/18 21:00 Constitutional: Yes: No Distress, Calm Head: Yes: WNL Face: Yes: WNL Eyes: Yes: WNL Nose: Yes: Septum Deviated (mildly to right anteriorly, mild erythema of mucosa , no bleeding) Oral/Pharynx: Yes: Other (poor/minimal dentition, no lesions oropharynx WNL, voice clear, no stridor or respiratory distress) Outer Ear: Yes: WNL Ear Canal: Yes: WNL Tympanic Membrane: Yes: WNL Neck: Yes: Other (no mass or node, thyroid, salivary glands WNL, well healed right anterior neck scar c/w carotid surgery) Respiratory: Yes: WNL (no stridor or respiratory distress, no retractions or accessory muscle use) Imaging - Results Chest X-ray: Report Reviewed Problem List - Problems (1) Dizziness Assessment/Plan: chronic history, intermittent symptoms consider further evaluation and management as outpatient Code(s): R42 - DIZZINESS AND GIDDINESS (2) Rios esophagus Assessment/Plan: known reflux, on reflux meds may be contributory to chronic laryngopharyngitis and increased risk of laryngospasm Code(s): K22.70 - RIOS'S ESOPHAGUS WITHOUT DYSPLASIA Qualifiers: Rios's esophagus type: with dysplasia of unspecified degree Qualified Code(s): K22.719 - Rios's esophagus with dysplasia, unspecified; K22.71 - Rios's esophagus with dysplasia (3) Dysphagia, pharyngeal phase Assessment/Plan: longstanding history, preceding hospitalization choking and symptoms of aspiration Recommend: swallowing evaluation and possible modified barium swallow Code(s): R13.13 - DYSPHAGIA, PHARYNGEAL PHASE (4) Throat pain in adult Assessment/Plan: chronic pharyngitis, recent laryngospasm suspected multiple contributory factors including coughing, inhaled medications, reflux Code(s): R07.0 - PAIN IN THROAT
[2018-03-02] MEDS: ATORVASTATIN CA 80 MG TABLET (FP) PO SCH (22:40)
[2018-03-02] MEDS: DOCUSATE SODIUM 100 MG CAPSULE (FP) PO SCH (22:40)
[2018-03-02] MEDS: MONTELUKAST NA 10 MG TABLET PO SCH (22:41)
[2018-03-02] MEDS: LIDOCAINE PATCH REMOVAL MC SCH (22:42)
[2018-03-02] MEDS: ALPRAZolam 0.25 MG TABLET PO PRN (22:42)
[2018-03-03] MEDS: methylPREDNISolone NA SUCC 40 MG/1 ML VIAL IVPB SCH ×2 (02:00→10:24)
[2018-03-03] MEDS ORDERED: INSULIN (NOVOLOG) ASPART 100 UNITS/ML 10ML VIAL ONE ×2 (05:56→06:33)
[2018-03-03] MEDS: INSULIN SLIDING SCALE (NOVOLOG) 1 VIAL SQ SCH (06:18)
[2018-03-03] MEDS: NYSTATIN 500,000 UNITS/5 ML SUSPENSION PO SCH ×4 (06:21→23:07)
[2018-03-03] MEDS: SODIUM CHLORIDE NASAL SPRAY 44 ML BOTTLE NS SCH ×3 (06:21→22:27)
[2018-03-03] MEDS ORDERED: PT OWN MED DRAWER 7, Y5N ONE ×5 (06:34→22:16)
[2018-03-03 07:09] LABS: BASO % 0.1 % (0-2.0); HEMATOCRIT 38.9 % (32.4-45.2); LYMPH % 3.1 % (8-40); MCH 29.7 pg (25.7-33.7); MCHC 33.3 g/dl (32.0-36.0); MEAN CELL VOLUME 89.1 fl (80-96); MEAN PLT VOLUME 6.7 fl (7.5-11.1); MONO % 2.7 % (3.8-10.2); NEUT % 94.1 % (42.8-82.8); PLATELET COUNT 160 K/MM3 (134-434); RBC 4.36 M/mm3 (3.60-5.2); RDW 15.1 % (11.6-15.6); WHITE BLOOD COUNT 9.7 K/mm3 (4.0-10.0)
[2018-03-03 07:40] LABS: ANION GAP 8 (8-16); BLOOD UREA NITROGEN 19 mg/dL (7-18); CALCIUM 8.4 mg/dL (8.5-10.1); CHLORIDE 98 mmol/L (98-107); CO2 32 mmol/L (21-32); GLUCOSE,RANDOM 123 mg/dL (74-106); POTASSIUM 4.7 mmol/L (3.5-5.1); SODIUM 138 mmol/L (136-145)
[2018-03-03 07:45] LABS: ALK PHOS 54 U/L (45-117); BILIRUBIN,TOTAL 0.4 mg/dL (0.2-1.0); CREATININE 0.7 mg/dL (0.55-1.02); SGOT/AST 10 U/L (15-37); SGPT/ALT 36 U/L (12-78); TOT PROT 5.5 g/dl (6.4-8.2)
[2018-03-03] MEDS: ALBUTEROL SO4 0.083% IH SOL 2.5 MG/3 ML VIAL.NEB. NEB PRN ×3 (08:40→21:35)
[2018-03-03] MEDS: ISOSORBIDE MONONITRATE 30 MG TAB.SR.24H (FP) PO SCH ×2 (10:21→22:29)
[2018-03-03] MEDS: POTASSIUM CHLORIDE TABS 10 MEQ TABLET.ER (FP) PO SCH ×2 (10:21→22:28)
[2018-03-03] MEDS: RANOLAZINE E.R. 500 MG TABLET (FP) PO SCH ×2 (10:21→22:28)
[2018-03-03] MEDS: AZITHROMYCIN 250 MG TABLET PO SCH (10:21)
[2018-03-03] MEDS: RANITIDINE HCL 150 MG TABLET (FP) PO SCH (10:22)
[2018-03-03] MEDS: PANTOPRAZOLE 40 MG TABLET (FP) PO SCH (10:22)
[2018-03-03] MEDS: VERAPAMIL HCL 240 MG E.R. TABLET (FP) PO SCH ×2 (10:22→22:28)
[2018-03-03] MEDS: FUROSEMIDE 20 MG TABLET (FP) PO SCH (10:22)
[2018-03-03] MEDS: CLOPIDOGREL BISULFATE 75 MG TABLET (FP) PO SCH (10:22)
[2018-03-03] MEDS: FOLIC ACID 1 MG TABLET (FP) PO SCH (10:22)
[2018-03-03] MEDS: LIDOCAINE 5% TOPICAL PATCH TP SCH (10:23)
[2018-03-03] MEDS: NYSTATIN 100,000 UNIT/GM TOPICAL CREAM 15 GM TUBE TP SCH ×2 (10:23→22:27)
[2018-03-03] MEDS: FLUTICASONE PROP 0.05% 16 GM NASAL SPRAY NS SCH ×2 (10:24→22:27)
[2018-03-03] MEDS: TIOTROPIUM BROMIDE 2.5 MCG (SPIRIVA) RESPIMAT INHALER IH SCH (10:24)
[2018-03-03] MEDS: BUDESONIDE/FORMETEROL FUMARATE 160/4.5 mcg INHALER IH SCH ×2 (10:25→22:27)
--- NOTE | 2018-03-03 10:37 | PN ---
Progress Note (short form) - Note Progress Note: Continues to improve. ENT evaluation noted. Breathing feels close to baseline. Intake & Output 02/28/18 03/01/18 03/02/18 03/03/18 23:59 23:59 23:59 23:59 Intake Total 600 700 950 100 Balance 600 700 950 100 Last Vital Signs Temp Pulse Resp BP Pulse Ox 98.0 F 66 20 134/56 97 03/03/18 06:00 03/03/18 06:00 03/03/18 06:00 03/03/18 06:00 03/02/18 21:00 Active Medications Acetaminophen (Tylenol -) 650 mg PO Q6H PRN PRN Reason: FEVER Last Admin: 03/01/18 02:31 Dose: 650 mg Al Hydroxide/Mg Hydroxide (Mylanta Oral Suspension -) 30 ml PO Q6H PRN PRN Reason: DYSPEPSIA Last Admin: 02/24/18 21:33 Dose: 30 ml Albuterol Sulfate (Ventolin 0.083% Nebulizer Soln -) 1 amp NEB Q4H PRN PRN Reason: SHORT OF BREATH/WHEEZING Last Admin: 03/03/18 08:40 Dose: 1 amp Alprazolam (Xanax -) 0.25 mg PO BID PRN PRN Reason: *FOR ANXIETY* Last Admin: 03/02/18 22:42 Dose: 0.25 mg Atorvastatin Calcium (Lipitor -) 80 mg PO [facility] Last Admin: 03/02/18 22:40 Dose: 80 mg Azithromycin (Zithromax -) 250 mg PO DAILY [facility] Last Admin: 03/03/18 10:21 Dose: 250 mg Budesonide/Formoterol Fumarate (Symbicort 160/4.5mcg -) 2 puff IH BID [facility] Last Admin: 03/03/18 10:25 Dose: 2 puff Clopidogrel Bisulfate (Plavix -) 75 mg PO DAILY [facility] Last Admin: 03/03/18 10:22 Dose: 75 mg Docusate Sodium (Colace -) 300 mg PO [facility] Last Admin: 03/02/18 22:40 Dose: 300 mg Fluticasone Propionate (Flonase -) 1 spray NS BID [facility] Last Admin: 03/03/18 10:24 Dose: 1 spray Folic Acid (Folic Acid -) 1 mg PO DAILY [facility] Last Admin: 03/03/18 10:22 Dose: 1 mg Furosemide (Lasix -) 20 mg PO DAILY [facility] Last Admin: 03/03/18 10:22 Dose: 20 mg Guaifenesin (Robitussin Dm -) 10 ml PO Q6H PRN PRN Reason: COUGH Insulin Aspart (Novolog Vial Sliding Scale -) 1 vial SQ AM [facility]; Protocol Last Admin: 03/03/18 06:18 Dose: Not Given Isosorbide Mononitrate (Imdur -) 30 mg PO BID [facility] Last Admin: 03/03/18 10:21 Dose: 30 mg Lidocaine (Lidoderm Patch -) 1 patch TP DAILY [facility] Last Admin: 03/03/18 10:23 Dose: 1 patch Meclizine HCl (Antivert -) 12.5 mg PO Q6H PRN PRN Reason: VERTIGO Miscellaneous (Lidoderm Patch Removal) 1 each MC DAILY@2200 [facility] Last Admin: 03/02/18 22:42 Dose: 1 each Montelukast Sodium (Singulair -) 10 mg PO HS [facility] Last Admin: 03/02/18 22:41 Dose: 10 mg Nitroglycerin (Nitrostat -) 0.4 mg SL TID PRN PRN Reason: FOR CHEST PAIN Last Admin: 02/22/18 21:31 Dose: 0.4 mg Nystatin (Nystatin Oral Suspension -) 500,000 units PO Q6HPO [facility] Last Admin: 03/03/18 06:21 Dose: 500,000 units Nystatin (Mycostatin Cream -) 1 applic TP BID [facility] Last Admin: 03/03/18 10:23 Dose: 1 applic Pantoprazole Sodium (Protonix -) 40 mg PO DAILY [facility] Last Admin: 03/03/18 10:22 Dose: 40 mg Potassium Chloride (K-Dur -) 10 meq PO BID [facility] Last Admin: 03/03/18 10:21 Dose: 10 meq Ranitidine HCl (Zantac -) 150 mg PO DAILY [facility] Last Admin: 03/03/18 10:22 Dose: 150 mg Ranolazine (Ranexa -) 500 mg PO BID [facility] Last Admin: 03/03/18 10:21 Dose: 500 mg Sodium Chloride ([place] Nasal [place] -) 2 spray NS TID [facility] Last Admin: 03/03/18 06:21 Dose: 2 sprays Tiotropium [place] (Spiriva Respimat) 2 puff IH DAILY [facility] Last Admin: 03/03/18 10:24 Dose: 2 puff Verapamil HCl (Calan Sr -) 240 mg PO BID [facility] Last Admin: 03/03/18 10:22 Dose: 240 mg Gen: NAD, appears more comfortable Heart: RRR Lung: Scattered bilateral rhonchi, no wheezing appreciated Abd: soft, nontender Ext: no edema Laboratory Results - last 24 hr 03/03/18 03/03/18 03/03/18 06:17 06:30 06:30 WBC 9.7 RBC 4.36 Hgb 13.0 Hct 38.9 MCV 89.1 MCH 29.7 MCHC 33.3 RDW 15.1 Plt Count 160 MPV 6.7 L Absolute Neuts (auto) 9.2 Neutrophils % 94.1 H Lymphocytes % 3.1 L D Monocytes % 2.7 L Eosinophils % 0.0 Basophils % 0.1 Nucleated RBC % 0 Sodium 138 Potassium 4.7 Chloride 98 Carbon Dioxide 32 Anion Gap 8 BUN 19 H Creatinine 0.7 Creat Clearance w eGFR > 60 POC Glucometer 127 Random Glucose 123 H Calcium 8.4 L Total Bilirubin 0.4 AST 10 L ALT 36 Alkaline Phosphatase 54 Total Protein 5.5 L Albumin 3.0 L A/P Resolving Acute COPD Exacerbation Suspected Laryngospasm GERD CAD LV Diastolic Dysfunction HTN Hyperlipidemia PAD - Swallow evaluation - Prednisone starting in the AM - Inhaled bronchodilators standing and PRN - ABX - O2 to keep SpO2>90% - DVT prophylaxis Dr Bueno
[2018-03-03 11:24] LABS: PLATELET ESTIMATE ADEQUATE
--- NOTE | 2018-03-03 12:03 | CONSULT ---
Admitting History and Physical - Primary Care Physician PCP: Casi Cohn - Admission History of Present Illness: 62 yo F with hx COPD, admitted with acute exacerbation had acute episode of throat closing yesterday, treated with IV steroids on reflux meds. Chart reviewed and pt examined. PMH includes: SUE'S ESOPHAGUS WITHOUT DYSPLASIA,longstanding history of dysphagia, preceding hospitalization with choking and symptoms of aspiration, chronic pharyngitis, recent laryngospasm suspected-multiple contributory factors including coughing, inhaled medications, reflux Selected Entries 03/02/18 03/02/18 03/03/18 09:00 17:55 11:15 Breakfast 100% 100% Supper 100% Laboratory Tests 03/01/18 03/03/18 06:15 06:30 WBC 11.8 H 9.7 Pt reports choking intermittently on solids and liquids, with recent increase in food/pills sticking in her throat. She drinks coffee and 2 8 oz glasses of soda daily. She eats dinner b/n 6-8 pm, in bed by 11 but with hob elevated. She is a poor sleeper,reports waking up choking (GERD/LPR/ Obstructive sleep apnea? No h/o sleep study.) This is my first consult with this pt. History Source: Patient Limitations to Obtaining History: No Limitations - Past Medical History Cardiovascular: Yes: CAD, HTN, ME (2011 transferred to [facility], no stents, told of ? Prinzmetal angina? ), Other (left ventricular end diastolic dysfunction, peripheral and carotid vascular disease ) Pulmonary: Yes: Asthma, COPD Gastrointestinal: Yes: Diverticulosis, Gastritis, GERD (with short segment Barretts), Hiatal Hernia, Other (Mesenteric ischemia treated with SMA bypass 2012. Incisional hernia.) Renal/: Yes: Renal Failure (required dialysis for several weeks following contrast induced renal fauilure after ME in 2011) Heme/Onc: Yes: Anemia Psych: Yes: Anxiety, Depression Endocrine: Yes: Other (Euthyroid goiter) - Past Surgical History Past Surgical History: Yes: Carotid Endarterectomy, Cholecystectomy, Colonoscopy , Upper Endoscopy - Smoking History Smoking history: Former smoker Have you smoked in the past 12 months: Yes Aproximately how many cigarettes per day: 10 If you are a former smoker, when did you quit?: 1YR - Alcohol/Substance Use Hx Alcohol Use: No History of Substance Use: reports: None - Social History ADL: Independent 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 History of Recent Travel: No History - Admission Reason For Visit: OBSTRUCTIVE CHRONIC BRONCHITIS WITH EXACERBATION - Diagnostics X-ray: Report Reviewed - General Mental Status: Alert and Oriented, Awake and Alert, Able to Follow Commands Attention: Intact Ability to Follow Directions: Excellent Head/Neck Control: WFL - Hearing Hearing: Normal Hearing Aide: No Speech Evaluation - Communication Primary Language: MALTESE Communication: Yes: Within Normal Limits Oral Expression Ability: Yes: No Impairment - Speech Production Able to Make Needs Known: Yes: WNL Intelligibility: Yes: WNL - Speech Characteristics Voice Loudness: Normal Voice Pitch: Yes: Normal Voice Phonatory-based Quality: Yes: Normal Speech Pattern: Normal Speech Clarity: < 100% Nasal Resonance: Normal Articulation: Yes: Precise Rate of Speech: Intact - Language/Auditory Comprehension Follows: Yes: 2 Stage Simple Commands - Language/Verbal Expression Able to Respond to Simple Queries: Yes: WNL Able to Communicate Wants and Needs: Yes: WNL Functional Communication Status: Yes: WNL Attention: Yes: Intact - Memory/Perception prison Memory: Yes: WNL Short Term Memory: Yes: WNL - Swallow Evaluation/Bedside Assessment Current Nutritional Intake: Regular, Thin Liquids Oral Secretions: Yes: WFL (Treated for thrush. Tongue clear today.) Dentition: Yes: Edentulous (Cuts food very small.) Facial Symmetry at Rest: Symmetrical Facial Symmetry on Retraction: Symmetrical Facial Movement: Controlled Against Resistance Opening: Normal Against Resistance Closing: Normal Pucker Lips: Normal Smile: Normal Lingual Movement: Normal, Symmetric Lingual Speed of Movement: Normal Lingual Movement Strgth Against Opposition: Normal Lingual Movement Characteristics: Normal Velopharyngeal Movement: Normal, Absent Laryngeal Elevation: WFL Laryngeal Movement: Able to Palpate Rate of Intake: WFL Bolus Size: WFL Labial Seal: WFL Chewing: Impaired (compensates. edentulous) Oral Prep Time: WFL A-P Transit: WFL Pocketing: None Timing of Swallow: WFL Coughing/Throat Clear: No Change in Voice: No Recommendations - Speech Evaluation, Impression/Plan Impression: Pt with reports of intermittent choking on solids/liquids, and stasis of pills/solids in pharynx. GERD/Strong suspicion for Laryngopharyngeal reflux. Drinks coffee/soda. Wakes up choking/gasping at night- GERD/LPR/ MALACHI? - Dysphagia Impressions/Plan Dysphagia Impressions: Risk of Aspiration, Ongoing Evaluation *Silent aspiration: cannot be R/O at bedside Recommendations: MBS w Esophagus, Other (Will educate pt on Swallowing behaviors to minimize GERD/LPR Consider Sleep Study)
--- NOTE | 2018-03-03 12:33 | PN ---
Progress Note, Physician Chief Complaint: feels better today, will taper steroids seen by speech tx as suggested by ENT - Current Medication List Current Medications: Active Medications Acetaminophen (Tylenol -) 650 mg PO Q6H PRN PRN Reason: FEVER Last Admin: 03/01/18 02:31 Dose: 650 mg Al Hydroxide/Mg Hydroxide (Mylanta Oral Suspension -) 30 ml PO Q6H PRN PRN Reason: DYSPEPSIA Last Admin: 02/24/18 21:33 Dose: 30 ml Albuterol Sulfate (Ventolin 0.083% Nebulizer Soln -) 1 amp NEB Q4H PRN PRN Reason: SHORT OF BREATH/WHEEZING Last Admin: 03/03/18 08:40 Dose: 1 amp Alprazolam (Xanax -) 0.25 mg PO BID PRN PRN Reason: *FOR ANXIETY* Last Admin: 03/02/18 22:42 Dose: 0.25 mg Atorvastatin Calcium (Lipitor -) 80 mg PO HS [facility] Last Admin: 03/02/18 22:40 Dose: 80 mg Azithromycin (Zithromax -) 250 mg PO DAILY [facility] Last Admin: 03/03/18 10:21 Dose: 250 mg Budesonide/Formoterol Fumarate (Symbicort 160/4.5mcg -) 2 puff IH BID [facility] Last Admin: 03/03/18 10:25 Dose: 2 puff Clopidogrel Bisulfate (Plavix -) 75 mg PO DAILY [facility] Last Admin: 03/03/18 10:22 Dose: 75 mg Docusate Sodium (Colace -) 300 mg PO HS [facility] Last Admin: 03/02/18 22:40 Dose: 300 mg Fluticasone Propionate (Flonase -) 1 spray NS BID [facility] Last Admin: 03/03/18 10:24 Dose: 1 spray Folic Acid (Folic Acid -) 1 mg PO DAILY [facility] Last Admin: 03/03/18 10:22 Dose: 1 mg Furosemide (Lasix -) 20 mg PO DAILY [facility] Last Admin: 03/03/18 10:22 Dose: 20 mg Guaifenesin (Robitussin Dm -) 10 ml PO Q6H PRN PRN Reason: COUGH Insulin Aspart (Novolog Vial Sliding Scale -) 1 vial SQ AM [facility]; Protocol Last Admin: 03/03/18 06:18 Dose: Not Given Isosorbide Mononitrate (Imdur -) 30 mg PO BID [facility] Last Admin: 03/03/18 10:21 Dose: 30 mg Lidocaine (Lidoderm Patch -) 1 patch TP DAILY [facility] Last Admin: 03/03/18 10:23 Dose: 1 patch Meclizine HCl (Antivert -) 12.5 mg PO Q6H PRN PRN Reason: VERTIGO Miscellaneous (Lidoderm Patch Removal) 1 each MC DAILY@2200 [facility] Last Admin: 03/02/18 22:42 Dose: 1 each Montelukast Sodium (Singulair -) 10 mg PO HS [facility] Last Admin: 03/02/18 22:41 Dose: 10 mg Nitroglycerin (Nitrostat -) 0.4 mg SL TID PRN PRN Reason: FOR CHEST PAIN Last Admin: 02/22/18 21:31 Dose: 0.4 mg Nystatin (Nystatin Oral Suspension -) 500,000 units PO Q6HPO [facility] Last Admin: 03/03/18 06:21 Dose: 500,000 units Nystatin (Mycostatin Cream -) 1 applic TP BID [facility] Last Admin: 03/03/18 10:23 Dose: 1 applic Pantoprazole Sodium (Protonix -) 40 mg PO DAILY [facility] Last Admin: 03/03/18 10:22 Dose: 40 mg Potassium Chloride (K-Dur -) 10 meq PO BID [facility] Last Admin: 03/03/18 10:21 Dose: 10 meq Prednisone (Deltasone -) 40 mg PO DAILY [facility] Ranitidine HCl (Zantac -) 150 mg PO DAILY [facility] Last Admin: 03/03/18 10:22 Dose: 150 mg Ranolazine (Ranexa -) 500 mg PO BID [facility] Last Admin: 03/03/18 10:21 Dose: 500 mg Sodium Chloride ([place] Nasal [place] -) 2 spray NS TID [facility] Last Admin: 03/03/18 06:21 Dose: 2 sprays Tiotropium [place] (Spiriva Respimat) 2 puff IH DAILY [facility] Last Admin: 03/03/18 10:24 Dose: 2 puff Verapamil HCl (Calan Sr -) 240 mg PO BID [facility] Last Admin: 03/03/18 10:22 Dose: 240 mg - Objective Vital Signs: Vital Signs Temperature 98.0 F 03/03/18 06:00 Pulse Rate 66 08/09/18 06:00 Respiratory Rate 20 03/03/18 06:00 Blood Pressure 134/56 03/03/18 06:00 O2 Sat by Pulse Oximetry (%) 97 03/02/18 21:00 Constitutional: Yes: No Distress, Calm Eyes: Yes: Conjunctiva Clear HENT: Yes: Atraumatic Neck: Yes: Supple Cardiovascular: Yes: Regular Rate and Rhythm Respiratory: Yes: Rales (less) Gastrointestinal: Yes: Soft. No: Distention Genitourinary: No: CVA Tenderness - Left, CVA Tenderness - Right Musculoskeletal: No: Joint Stiffness, Joint Swelling Extremities: No: Cold, Cool, Cyanosis Edema: No Integumentary: No: Rash, Venous Stasis Changes Neurological: Yes: WNL, Alert, Oriented ...Motor Strength: WNL Psychiatric: Yes: WNL, Alert, Oriented. No: Agitated, Suicidal Ideation Labs: CBC, BMP 03/03/18 06:30 03/03/18 06:30 INR, PTT INR 0.98 (0.82-1.09) 02/14/18 18:29 - ....Imaging Other: Report Reviewed Assessment/Plan Patient is a 62yo female with PMH of [place] s/p angioplasty, carotid endarterectomy , COPD admitted with acute URI/ pneumonia and COPD exacerbation taper steroids ; PULM f/u , continue nebs, antibiotics po zithromax detention d/ w pt (per pulm) ; cough syrup prn cardiology and pulmonary f/u ENT f/u outpt f/u labs gastric PFX while on steroids; BGM check while on steroids prn xanax for insomnia and anxiety; falls PFX DC planning - does not need home O2 at this point; has inhalers, nebs. Scripts done as needed; d/w pt. d/w pt and staff
--- NOTE | 2018-03-03 18:23 | PN ---
Progress Note, Physician History of Present Illness: Dyspnea, productive cough and wheeze slowly improving. ENT and S&S input noted. - Current Medication List Current Medications: Active Medications Acetaminophen (Tylenol -) 650 mg PO Q6H PRN PRN Reason: FEVER Last Admin: 03/01/18 02:31 Dose: 650 mg Al Hydroxide/Mg Hydroxide (Mylanta Oral Suspension -) 30 ml PO Q6H PRN PRN Reason: DYSPEPSIA Last Admin: 02/24/18 21:33 Dose: 30 ml Albuterol Sulfate (Ventolin 0.083% Nebulizer Soln -) 1 amp NEB Q4H PRN PRN Reason: SHORT OF BREATH/WHEEZING Last Admin: 03/03/18 15:19 Dose: 1 amp Alprazolam (Xanax -) 0.25 mg PO BID PRN PRN Reason: *FOR ANXIETY* Last Admin: 03/02/18 22:42 Dose: 0.25 mg Atorvastatin Calcium (Lipitor -) 80 mg PO HS [facility] Last Admin: 03/02/18 22:40 Dose: 80 mg Azithromycin (Zithromax -) 250 mg PO DAILY [facility] Last Admin: 03/03/18 10:21 Dose: 250 mg Budesonide/Formoterol Fumarate (Symbicort 160/4.5mcg -) 2 puff IH BID [facility] Last Admin: 03/03/18 10:25 Dose: 2 puff Clopidogrel Bisulfate (Plavix -) 75 mg PO DAILY [facility] Last Admin: 03/03/18 10:22 Dose: 75 mg Docusate Sodium (Colace -) 300 mg PO [facility] Last Admin: 03/02/18 22:40 Dose: 300 mg Fluticasone Propionate (Flonase -) 1 spray NS BID [facility] Last Admin: 03/03/18 10:24 Dose: 1 spray Folic Acid (Folic Acid -) 1 mg PO DAILY [facility] Last Admin: 03/03/18 10:22 Dose: 1 mg Furosemide (Lasix -) 20 mg PO DAILY [facility] Last Admin: 03/03/18 10:22 Dose: 20 mg Guaifenesin (Robitussin Dm -) 10 ml PO Q6H PRN PRN Reason: COUGH Insulin Aspart (Novolog Vial Sliding Scale -) 1 vial SQ AM [facility]; Protocol Last Admin: 03/03/18 06:18 Dose: Not Given Isosorbide Mononitrate (Imdur -) 30 mg PO BID [facility] Last Admin: 03/03/18 10:21 Dose: 30 mg Lidocaine (Lidoderm Patch -) 1 patch TP DAILY [facility] Last Admin: 03/03/18 10:23 Dose: 1 patch Meclizine HCl (Antivert -) 12.5 mg PO Q6H PRN PRN Reason: VERTIGO Miscellaneous (Lidoderm Patch Removal) 1 each MC DAILY@2200 [facility] Last Admin: 03/02/18 22:42 Dose: 1 each Montelukast Sodium (Singulair -) 10 mg PO HS [facility] Last Admin: 03/02/18 22:41 Dose: 10 mg Nitroglycerin (Nitrostat -) 0.4 mg SL TID PRN PRN Reason: FOR CHEST PAIN Last Admin: 02/22/18 21:31 Dose: 0.4 mg Nystatin (Nystatin Oral Suspension -) 500,000 units PO Q6HPO [facility] Last Admin: 03/03/18 14:44 Dose: 500,000 units Nystatin (Mycostatin Cream -) 1 applic TP BID [facility] Last Admin: 03/03/18 10:23 Dose: 1 applic Pantoprazole Sodium (Protonix -) 40 mg PO DAILY [facility] Last Admin: 03/03/18 10:22 Dose: 40 mg Potassium Chloride (K-Dur -) 10 meq PO BID [facility] Last Admin: 03/03/18 10:21 Dose: 10 meq Prednisone (Deltasone -) 40 mg PO DAILY [facility] Ranitidine HCl (Zantac -) 150 mg PO DAILY [facility] Last Admin: 03/03/18 10:22 Dose: 150 mg Ranolazine (Ranexa -) 500 mg PO BID [facility] Last Admin: 03/03/18 10:21 Dose: 500 mg Sodium Chloride ([place] Nasal [place] -) 2 spray NS TID [facility] Last Admin: 03/03/18 14:45 Dose: 2 sprays Tiotropium [place] (Spiriva Respimat) 2 puff IH DAILY [facility] Last Admin: 03/03/18 10:24 Dose: 2 puff Verapamil HCl (Calan Sr -) 240 mg PO BID [facility] Last Admin: 03/03/18 10:22 Dose: 240 mg - Objective Vital Signs: Vital Signs Temperature 98.0 F 03/03/18 06:00 Pulse Rate 75 03/03/18 14:12 Respiratory Rate 20 03/03/18 14:12 Blood Pressure 137/54 03/03/18 14:12 O2 Sat by Pulse Oximetry (%) 97 03/02/18 21:00 Constitutional: Yes: No Distress, Calm Neck: Yes: Supple Cardiovascular: Yes: Regular Rate and Rhythm Respiratory: Yes: Regular, Diminished, Wheezes Gastrointestinal: Yes: Normal Bowel Sounds, Soft Edema: Yes Edema: LLE: Trace, RLE: Trace Labs: CBC, BMP 03/03/18 06:30 03/03/18 06:30 INR, PTT INR 0.98 (0.82-1.09) 02/14/18 18:29 Problem List - Problems (1) H/O carotid endarterectomy Code(s): Z98.890 - OTHER SPECIFIED POSTPROCEDURAL STATES (2) COPD exacerbation Code(s): J44.1 - CHRONIC OBSTRUCTIVE PULMONARY DISEASE W (ACUTE) EXACERBATION (3) Coronary artery disease Code(s): I25.10 - ATHSCL HEART DISEASE OF [place] CORONARY ARTERY W/O ANG PCTRS Qualifiers: Coronary Disease-Associated Artery/Lesion type: [place] artery [place] vs. 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 AE COPD slowly improving 2. Laryngopharyngeal reflux 3. CAD s/p [place], angina pectorus 4. Diastolic dysfunction 5. HTN/HCVD 6. Hyperlipidemia 7. Bilateral carotid artery disease post right CEA 8. Mesenteric ischemia post intervention 9. PAD post intervention P:1. BD, slow oral steroid taper with GI protection, empiric abx, Singulair, O2 as needed to keep SpO2>90% 2. Continue Verapamil SR 240 mg BID, Imdur 30 mg BID and Ranexa 500 mg BID 3. Continue Lipitor 80 mg QHS, Lasix 20 mg QD and Plavix 75 qd 4. Follow up with Dr. 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 CTA carotids per vascular input 6. DVT prophylaxis
[2018-03-03] MEDS: ALPRAZolam 0.25 MG TABLET PO PRN (22:28)
[2018-03-03] MEDS: MONTELUKAST NA 10 MG TABLET PO SCH (22:28)
[2018-03-03] MEDS: DOCUSATE SODIUM 100 MG CAPSULE (FP) PO SCH (22:28)
[2018-03-03] MEDS: ATORVASTATIN CA 80 MG TABLET (FP) PO SCH (22:28)
[2018-03-03] MEDS: LIDOCAINE PATCH REMOVAL MC SCH (22:29)
[2018-03-04] MEDS: ACETAMINOPHEN 325 MG TABLET (FP) PO PRN (05:15)
[2018-03-04] MEDS: NYSTATIN 500,000 UNITS/5 ML SUSPENSION PO SCH ×2 (05:22→11:43)
[2018-03-04] MEDS: SODIUM CHLORIDE NASAL SPRAY 44 ML BOTTLE NS SCH ×2 (05:22→14:06)
[2018-03-04] MEDS ORDERED: PT OWN MED DRAWER 7, Y5N ONE ×4 (05:26→10:22)
[2018-03-04] MEDS ORDERED: INSULIN (NOVOLOG) ASPART 100 UNITS/ML 10ML VIAL ONE (07:02)
[2018-03-04] MEDS: ALBUTEROL SO4 0.083% IH SOL 2.5 MG/3 ML VIAL.NEB. NEB PRN ×2 (08:32→14:39)
--- NOTE | 2018-03-04 09:46 | DS ---
Physical Examination Vital Signs: Vital Signs Temperature 97.7 F 03/04/18 06:35 Pulse Rate 60 03/04/18 06:35 Respiratory Rate 20 03/04/18 06:35 Blood Pressure 128/58 03/04/18 06:35 O2 Sat by Pulse Oximetry (%) 100 03/03/18 21:00 Findings/Remarks: feels better, wants to go home; no aspiration on MBS no cough or SOB scripts done and d/w pt; d/w CM; t time 40 min Constitutional: Yes: No Distress, Calm Eyes: Yes: Conjunctiva Clear HENT: Yes: Atraumatic Neck: Yes: Supple Cardiovascular: Yes: Regular Rate and Rhythm Respiratory: Yes: CTA Bilaterally Gastrointestinal: Yes: Soft. No: Distention Renal/: No: CVA Tenderness - Left, CVA Tenderness - Right Musculoskeletal: No: Joint Stiffness, Joint Swelling Extremities: No: Cold, Cool, Cyanosis Edema: No Integumentary: No: Rash, Venous Stasis Changes Neurological: Yes: WNL, Alert, Oriented ...Motor Strength: WNL Psychiatric: Yes: WNL, Alert, Oriented. No: Agitated, Suicidal Ideation Labs: CBC, BMP 03/03/18 06:30 03/03/18 06:30 Discharge Summary Reason For Visit: OBSTRUCTIVE CHRONIC BRONCHITIS WITH EXACERBATION Current Active Problems COPD exacerbation (Acute) Carotid stenosis (Acute) Dizziness (Acute) H/O carotid endarterectomy (Acute) HTN (hypertension) (Acute) Procedures: Principal: admitted with COPD exac and acute URI; Other Procedures: seen by pulmonary; treated with IV antibiotics; nebs, O2 NC< iv steroids;. seen BY ENT and cardiology also; Hospital Course: slowly improved with above; taper steroids outpt no smoking; f/u as advised; to take meds as advised; importance of compliance d/w pt; Condition: Stable - Instructions Diet, Activity, Other Instructions: f/u PCP and pulmonary in 1-2 weeks taper steroids as advised no tobacco RTER if worse or recurrent c/o falls precautions f/u with GI dr Hoff, cardiology dr Emerson, vascular surgery dr Chucky Martin and general surgery dr Nation, ENT dr Austin over the next 1-2 months Referrals: Casi Cohn [Primary Care Provider] - Michael Jenkins MD [Staff Physician] - Leslie Hoff MD [Staff Physician] - Lauri Matrin MD [Staff Physician] - Tayo Emerson MD [Staff Physician] - Carlos Austin MD [Staff Physician] - Disposition: VNS/HOME HEALTH CARE - Home Medications Comprehensive Discharge Medication List: Ambulatory Orders Albuterol 2.5/Ipratropium 0.5 [Duoneb -] 1 neb NEB Q4H PRN #0 vial 12/27/12 Atorvastatin Calcium [Lipitor] 80 mg PO HS #0 tablet 12/27/12 Clopidogrel Bisulfate [Plavix -] 75 mg PO DAILY #0 tablet 12/27/12 Folic Acid - 1 mg PO DAILY #0 tablet 12/27/12 Furosemide [Lasix -] 20 mg PO DAILY #0 tablet 12/27/12 Isosorbide Mononitrate [Imdur] 30 mg PO BID #0 tab.sr.24h 12/27/12 Montelukast Na [Singulair -] 10 mg PO HS #0 tablet 12/27/12 Ranitidine [Zantac -] 150 mg PO DAILY #0 tablet 12/27/12 Tiotropium [place] [Spiriva] 1 inh IH DAILY #0 inh 12/27/12 Fluticasone Prop 0.05% Nasal [Flonase -] 1 - 2 spray NS BID #1 spray.pump Mag Hydrox/Al Hydrox/Simeth [Mylanta Oral Suspension -] 30 ml PO Q6H PRN #0 cup 04/16/15 Acetaminophen [Tylenol .Regular Strength -] 650 mg PO Q6H PRN #0 tablet Docusate Sodium [Colace -] 300 mg PO HS capsule 08/16/16 Nitroglycerin 0.4 mg SL AM PRN #90 tab.subl 08/16/16 Pantoprazole Sodium [Protonix -] 40 mg PO DAILY #90 tablet.ec 08/16/16 Ranolazine [Ranexa -] 500 mg PO BID #180 tab 08/16/16 Verapamil HCl ER [Calan Sr -] 240 mg PO BID #180 tablet.er 08/16/16 Potassium Chloride [K-Dur -] 10 meq PO BID 02/15/18 Azithromycin [Zithromax 250mg Tablets -] 250 mg PO DAILY #30 tablet 03/03/18 Budesonide/Formeterol Fumarate [SYMBICORT 160/4.5mcg -] 2 puff IH BID #3 inhaler 03/03/18 Guaifenesin Dm [Robitussin Dm -] 10 ml PO Q6H PRN cup 03/03/18 Nystatin Cream [Mycostatin Cream -] 1 applic TP BID applic 03/03/18 Prednisone 10 mg PO DAILY #20 tablet 03/03/18 Sodium Chloride Nasal [place] [[place] Nasal [place] -] 2 spray NS TID spray
[2018-03-04] MEDS: RANOLAZINE E.R. 500 MG TABLET (FP) PO SCH (10:00)
[2018-03-04] MEDS: AZITHROMYCIN 250 MG TABLET PO SCH (10:00)
[2018-03-04] MEDS: PANTOPRAZOLE 40 MG TABLET (FP) PO SCH (10:00)
[2018-03-04] MEDS: FOLIC ACID 1 MG TABLET (FP) PO SCH (10:00)
[2018-03-04] MEDS: POTASSIUM CHLORIDE TABS 10 MEQ TABLET.ER (FP) PO SCH (10:00)
[2018-03-04] MEDS: CLOPIDOGREL BISULFATE 75 MG TABLET (FP) PO SCH (10:00)
[2018-03-04] MEDS: ISOSORBIDE MONONITRATE 30 MG TAB.SR.24H (FP) PO SCH (10:00)
[2018-03-04] MEDS: FUROSEMIDE 20 MG TABLET (FP) PO SCH (10:00)
[2018-03-04] MEDS: VERAPAMIL HCL 240 MG E.R. TABLET (FP) PO SCH (10:00)
[2018-03-04] MEDS: RANITIDINE HCL 150 MG TABLET (FP) PO SCH (10:00)
[2018-03-04] MEDS ORDERED: predniSONE 20 MG TABLET (UD) PO SCH (10:00)
[2018-03-04] MEDS: LIDOCAINE 5% TOPICAL PATCH TP SCH (10:01)
[2018-03-04] MEDS: TIOTROPIUM BROMIDE 2.5 MCG (SPIRIVA) RESPIMAT INHALER IH SCH (10:01)
[2018-03-04] MEDS: FLUTICASONE PROP 0.05% 16 GM NASAL SPRAY NS SCH (10:08)
[2018-03-04] MEDS: BUDESONIDE/FORMETEROL FUMARATE 160/4.5 mcg INHALER IH SCH (10:08)
--- NOTE | 2018-03-04 10:52 | PN ---
Progress Note (short form) - Note Progress Note: Overall improved. Breathing feels close to baseline. No acute events overnight. Intake & Output 03/01/18 03/02/18 03/03/18 03/04/18 23:59 23:59 23:59 23:59 Intake Total 700 950 700 400 Balance 700 950 700 400 Last Vital Signs Temp Pulse Resp BP Pulse Ox 97.6 F 81 24 134/55 100 03/04/18 09:47 03/04/18 09:47 03/04/18 09:47 03/04/18 09:47 03/03/18 21:00 Active Medications Acetaminophen (Tylenol -) 650 mg PO Q6H PRN PRN Reason: FEVER Last Admin: 03/04/18 05:15 Dose: 650 mg Al Hydroxide/Mg Hydroxide (Mylanta Oral Suspension -) 30 ml PO Q6H PRN PRN Reason: DYSPEPSIA Last Admin: 02/24/18 21:33 Dose: 30 ml Albuterol Sulfate (Ventolin 0.083% Nebulizer Soln -) 1 amp NEB Q4H PRN PRN Reason: SHORT OF BREATH/WHEEZING Last Admin: 03/04/18 08:32 Dose: 1 amp Alprazolam (Xanax -) 0.25 mg PO BID PRN PRN Reason: *FOR ANXIETY* Last Admin: 03/03/18 22:28 Dose: 0.25 mg Atorvastatin Calcium (Lipitor -) 80 mg PO [facility] Last Admin: 03/03/18 22:28 Dose: 80 mg Azithromycin (Zithromax -) 250 mg PO DAILY [facility] Last Admin: 03/04/18 10:00 Dose: 250 mg Budesonide/Formoterol Fumarate (Symbicort 160/4.5mcg -) 2 puff IH BID [facility] Last Admin: 03/04/18 10:08 Dose: 2 puff Clopidogrel Bisulfate (Plavix -) 75 mg PO DAILY [facility] Last Admin: 03/04/18 10:00 Dose: 75 mg Docusate Sodium (Colace -) 300 mg PO [facility] Last Admin: 03/03/18 22:28 Dose: 300 mg Fluticasone Propionate (Flonase -) 1 spray NS BID [facility] Last Admin: 03/04/18 10:08 Dose: 1 spray Folic Acid (Folic Acid -) 1 mg PO DAILY [facility] Last Admin: 03/04/18 10:00 Dose: 1 mg Furosemide (Lasix -) 20 mg PO DAILY [facility] Last Admin: 03/04/18 10:00 Dose: 20 mg Guaifenesin (Robitussin Dm -) 10 ml PO Q6H PRN PRN Reason: COUGH Insulin Aspart (Novolog Vial Sliding Scale -) 1 vial SQ AM [facility]; Protocol Last Admin: 03/03/18 06:18 Dose: Not Given Isosorbide Mononitrate (Imdur -) 30 mg PO BID [facility] Last Admin: 03/04/18 10:00 Dose: 30 mg Lidocaine (Lidoderm Patch -) 1 patch TP DAILY [facility] Last Admin: 03/04/18 10:01 Dose: 1 patch Meclizine HCl (Antivert -) 12.5 mg PO Q6H PRN PRN Reason: VERTIGO Miscellaneous (Lidoderm Patch Removal) 1 each MC DAILY@2200 [facility] Last Admin: 03/03/18 22:29 Dose: 1 each Montelukast Sodium (Singulair -) 10 mg PO HS [facility] Last Admin: 03/03/18 22:28 Dose: 10 mg Nitroglycerin (Nitrostat -) 0.4 mg SL TID PRN PRN Reason: FOR CHEST PAIN Last Admin: 02/22/18 21:31 Dose: 0.4 mg Nystatin (Nystatin Oral Suspension -) 500,000 units PO Q6HPO [facility] Last Admin: 03/04/18 05:22 Dose: 500,000 units Nystatin (Mycostatin Cream -) 1 applic TP BID [facility] Last Admin: 03/03/18 22:27 Dose: 1 applic Pantoprazole Sodium (Protonix -) 40 mg PO DAILY [facility] Last Admin: 03/04/18 10:00 Dose: 40 mg Potassium Chloride (K-Dur -) 10 meq PO BID [facility] Last Admin: 03/04/18 10:00 Dose: 10 meq Prednisone (Deltasone -) 40 mg PO DAILY [facility] Last Admin: 03/04/18 09:59 Dose: 40 mg Ranitidine HCl (Zantac -) 150 mg PO DAILY [facility] Last Admin: 03/04/18 10:00 Dose: 150 mg Ranolazine (Ranexa -) 500 mg PO BID [facility] Last Admin: 03/04/18 10:00 Dose: 500 mg Sodium Chloride ([place] Nasal [place] -) 2 spray NS TID [facility] Last Admin: 03/04/18 05:22 Dose: 2 sprays Tiotropium [place] (Spiriva Respimat) 2 puff IH DAILY [facility] Last Admin: 03/04/18 10:01 Dose: 2 puff Verapamil HCl (Calan Sr -) 240 mg PO BID [facility] Last Admin: 03/04/18 10:00 Dose: 240 mg Gen: Awake and alert, NAD Heart: RRR Lung: Few scattered bilateral rhonchi, no wheezing appreciated Abd: soft, nontender Ext: no edema Laboratory Results - last 24 hr 03/03/18 03/04/18 06:30 06:36 Total Counted 100 Neutrophils % (Manual) 93.0 H Lymphocytes % (Manual) 3.0 L D Monocytes % (Manual) 4 Platelet Estimate Adequate POC Glucometer 73 A/P Resolving Acute COPD Exacerbation Suspected Laryngospasm GERD CAD LV Diastolic Dysfunction HTN Hyperlipidemia PAD - Prednisone taper starting at 40mg - Inhaled bronchodilators standing and PRN - ABX - O2 to keep SpO2>90% - DVT prophylaxis - No Pulmonary contraindication for D/C Dr Bueno
[2018-03-04] MEDS: NYSTATIN 100,000 UNIT/GM TOPICAL CREAM 15 GM TUBE TP SCH (11:43)
--- NOTE | 2018-03-04 12:25 | PN ---
Progress Note, [facility] CUTTER - Note Progress Note: MBS and GERD/LPR recommendations reviewed with pt.
[2018-03-04] MEDS ORDERED: FUROSEMIDE 40 MG/4 ML INJECTABLE VIAL IVPUSH ONE (13:30)
[2018-03-04 15:20] VITALS: BP 115/48; PULSE 71; TEMP 97.9
== END 2018-03-04 15:30 | disposition home health service (06) | DRG 191 ==
LOC: JER 17:47 → JERBED 20:06 → J5S 21:57
PROVIDERS: ADMIT Internal Medicine; ATTEND Internal Medicine
PROC: 3E0F76Z Introduction of Nutritional Substance into Respiratory Tract, Via Natural or Artificial Opening (ICD-10-PCS; principal; 2018-02-15)
DX: J44.1 Chronic obstructive pulmonary disease with (acute) exacerbation (principal); I50.32 Chronic diastolic (congestive) heart failure; I11.0 Hypertensive heart disease with heart failure; I25.119 Atherosclerotic heart disease of native coronary artery with unspecified angina pectoris; J06.9 Acute upper respiratory infection, unspecified; I25.2 Old myocardial infarction; E78.5 Hyperlipidemia, unspecified; Z95.5 Presence of coronary angioplasty implant and graft; Z87.891 Personal history of nicotine dependence; I73.9 Peripheral vascular disease, unspecified; K21.9 Gastro-esophageal reflux disease without esophagitis; K22.70 Barrett's esophagus without dysplasia; F41.9 Anxiety disorder, unspecified; G47.00 Insomnia, unspecified; E04.8 Other specified nontoxic goiter
CPT/HCPCS: 36415; 71045-TC-FY; 71250-TC; 74230-TC-FY; 80048; 80053; 82550; 82962; 83880; 84439; 84443; 84481; 84484; 85025; 85610; 85730; 92611-GN; 93005; 93010; 93880-TC; 94010; 94640; 94761; 97116-GP; 97161-GP; 99284-25; J7620

== ENCOUNTER 2018-03-13 17:21 | Emergency (ER) | payer OTHER ==
[2018-03-13 17:56] VITALS: BP 140/53; PULSE 92; TEMP 98.2; BMI 27.4
[2018-03-13] MEDS ORDERED: ACETAMINOPHEN 500 MG TABLET (FP) PO ONE (18:16)
--- NOTE | 2018-03-13 18:25 | PDOC ---
History of Present Illness - General Chief Complaint: Pain Stated Complaint: INFECTED FINGER Time Seen by Provider: 03/13/18 17:45 History Source: Patient Exam Limitations: Clinical Condition - History of Present Illness Initial Comments: 03/13/18 18:34 Patient with history of multiple comorbidities present with complain of swelling and redness with pain to lateral side of nailbed of right thumb is been worsening for 3 days now. Patient did not take anything for the pain and reported pain keeps her up at night. [place] any other symptoms Timing/Duration: other (3 days) Past History - Past Medical History Allergies/Adverse Reactions: Allergies Allergy/AdvReac Type Severity Reaction Status Date / Time No Known Drug Allergies Allergy Verified 03/13/18 17:33 Home Medications: Ambulatory Orders Albuterol 2.5/Ipratropium 0.5 [Duoneb -] 1 neb NEB Q4H PRN #0 vial 12/27/12 Atorvastatin Calcium [Lipitor] 80 mg PO HS #0 tablet 12/27/12 Clopidogrel Bisulfate [Plavix -] 75 mg PO DAILY #0 tablet 12/27/12 Folic Acid - 1 mg PO DAILY #0 tablet 12/27/12 Furosemide [Lasix -] 20 mg PO DAILY #0 tablet 12/27/12 Isosorbide Mononitrate [Imdur] 30 mg PO BID #0 tab.sr.24h 12/27/12 Montelukast Na [Singulair -] 10 mg PO HS #0 tablet 12/27/12 Ranitidine [Zantac -] 150 mg PO DAILY #0 tablet 12/27/12 Tiotropium [place] [Spiriva] 1 inh IH DAILY #0 inh 12/27/12 Fluticasone Prop 0.05% Nasal [Flonase -] 1 - 2 spray NS BID #1 spray.pump Mag Hydrox/Al Hydrox/Simeth [Mylanta Oral Suspension -] 30 ml PO Q6H PRN #0 cup 04/16/15 Acetaminophen [Tylenol .Regular Strength -] 650 mg PO Q6H PRN #0 tablet Docusate Sodium [Colace -] 300 mg PO HS capsule 08/16/16 Nitroglycerin 0.4 mg SL AM PRN #90 tab.subl 08/16/16 Pantoprazole Sodium [Protonix -] 40 mg PO DAILY #90 tablet.ec 08/16/16 Ranolazine [Ranexa -] 500 mg PO BID #180 tab 08/16/16 Verapamil HCl ER [Calan Sr -] 240 mg PO BID #180 tablet.er 08/16/16 Potassium Chloride [K-Dur -] 10 meq PO BID 02/15/18 Azithromycin [Zithromax 250mg Tablets -] 250 mg PO DAILY #30 tablet 03/03/18 Budesonide/Formeterol Fumarate [SYMBICORT 160/4.5mcg -] 2 puff IH BID #3 inhaler 03/03/18 Guaifenesin Dm [Robitussin Dm -] 10 ml PO Q6H PRN cup 03/03/18 Nystatin Cream [Mycostatin Cream -] 1 applic TP BID applic 03/03/18 Prednisone 10 mg PO DAILY #20 tablet 03/03/18 Sodium Chloride Nasal [place] [[place] Nasal [place] -] 2 spray NS TID spray Acetaminophen [Tylenol] 650 mg PO QID PRN #20 capsule 03/13/18 Cephalexin [Keflex] 500 mg PO BID 7 Days #14 capsule 03/13/18 Mupirocin Ointment [Bactroban 2% Ointment -] 1 applic TP BID #1 tube 03/13/18 Anemia: No Asthma: Yes Cancer: No Cardiac Disorders: Yes ([place] X 2) CVA: No COPD: Yes CHF: No Dementia: No Diabetes: No GI Disorders: Yes (HERNIA) Disorders: No HTN: Yes Hypercholesterolemia: Yes Liver Disease: No Seizures: No Thyroid Disease: No - Surgical History Abdominal Surgery: Yes Appendectomy: No Cardiac Surgery: Yes (Angioplasty, Carotid Artery) Cholecystectomy: Yes Lung Surgery: No Neurologic Surgery: No Orthopedic Surgery: No - Immunization History Immunization Up to Date: Yes (no flu or pna) - Suicide/Smoking/Psychosocial Hx Smoking Status: Yes Smoking History: Former smoker Have you smoked in the past 12 months: No Number of Cigarettes Smoked Daily: 10 If you are a former smoker, when did you quit?: 2013 Information on smoking cessation initiated: No 'Breaking Loose' booklet given: 12/20/12 Hx Alcohol Use: No Drug/Substance Use Hx: No Substance Use Type: None Hx Substance Use Treatment: No Review of Systems - Review of Systems Able to Perform ROS?: Yes Is the patient limited Swedish proficient: No Constitutional: No: Chills, Diaphoresis, Fever, Loss of Appetite, Malaise, Night Sweats, Weakness, Weight Stable, Unintentional Wgt. Loss, Unexplained wgt Loss, Other HEENTM: No: Eye Pain, Blurred Vision, Tearing, Recent change in vision, Double Vision, Cataracts, Ear Pain, Ocular Prothesis, Ear Discharge, Nose Pain, Nose Congestion, Tinnitus, Nose Bleeding, Hearing Loss, Throat Pain, Throat Swelling , Mouth Pain, Dental Problems, Difficulty Swallowing, Mouth Swelling, Other Respiratory: No: Cough, Orthopnea, Shortness of Breath, SOB with Exertion, SOB at Rest, Stridor, Wheezing, Productive cough, Hemoptysis, Other Cardiac (ROS): No: Chest Pain, Edema, Irregular Heart Rate, Lightheadedness, Palpitations, Syncope, Chest Tightness, Other ABD/GI: No: Abdominal Distended, Abd. Pain w/ defecation, Blood Streaked Bowels , Constipated, Diarrhea, Difficulty Swallowing, Nausea, Poor Appetite, Poor Fluid Intake, Rectal Bleeding, Vomiting, Indigestion, Abdominal cramping, Tarry Stools, Other Musculoskeletal: Yes: See HPI, Muscle Pain (right thumb around fingernail). No : Back Pain, Gout, Joint Pain, Joint Swelling, Muscle Weakness, Neck Pain, Joint Stiffness, Other Integumentary: Yes: See HPI, Change in Color (lateral side of nailbed of right thumb), Erythema (lateral side of fingernail of right thumb), Other All Other Systems: Reviewed and Negative *Physical Exam - Vital Signs Last Vital Signs Temp Pulse Resp BP Pulse Ox 98.2 F 92 H 20 140/53 99 03/13/18 17:33 03/13/18 17:33 03/13/18 17:33 03/13/18 17:33 03/13/18 17:33 - Physical Exam Comments: 03/13/18 18:38 GENERAL: Well developed, well nourished. Awake and alert. No acute distress. HEENT: Normocephalic, atraumatic. PERRLA, EOMI. No conjunctival pallor. Sclera are non- icteric. Moist mucous membranes. Oropharynx is clear. NECK: Supple. Full ROM. No JVD. Carotid pulses 2+ and symmetric, without bruits. No thyromegaly. No lymphadenopathy. CARDIOVASCULAR: Regular rate and rhythm. No murmurs, rubs, or gallops. Distal pulses are 2+ and symmetric. PULMONARY: No evidence of respiratory distress. Lungs clear to auscultation bilaterally. No wheezing, rales or rhonchi. ABDOMINAL: Soft. Non-tender. Non-distended. No rebound or guarding. No organomegaly. Normoactive bowel sounds. MUSCULOSKELETAL Normal range of motion at all joints. No bony deformities or tenderness. No CVA tenderness. EXTREMITIES: No cyanosis. No clubbing. No edema. No calf tenderness. SKIN: Increased erythema with mild swelling to lateral side of nailbed of right thumb small area of ecchymosis to lateral side of nailbed Warm and dry. Normal capillary refill. NEUROLOGICAL: Alert, awake, appropriate. Cranial nerves 2-12 intact. No deficits to light touch and temperature in face, upper extremities and lower extremities. No motor deficits in the in face, upper extremities and lower extremities. Normoreflexic in the upper and lower extremities. Normal speech. Toes are down- going bilaterally. Gait is normal without ataxia. PSYCHIATRIC: Cooperative. Good eye contact. Appropriate mood and affect. General Appearance: Yes: Nourished, Appropriately Dressed. No: Apparent Distress Procedures - Incision and Drainage I&D Site: Right: Other (lateral side of nailbed of right thumb) Betadine cleansed: Yes Anesthesia: 1% Lidocaine Volume(ml): 1 Blade Size: 11 Plain Packing: No Complications: none Dressing: Yes Progress: 03/13/18 18:39 Area of swelling and ecchymosis to lateral side of nailbed of right thumb cleaned with Betadine. Wound infiltrated with 1 mL 1% lidocaine. I&D done with normal level complete to trained swelling and ecchymosis. Small amounts of bloody discharge and purulent fluid drained from swelling area. Hemostasis achieved. Bacitracin applied to wound and wound covered with adhesive bandage. Patient tolerated procedure well Medical Decision Making - Medical Decision Making 03/13/18 18:41 Patient with history of multiple comorbidities present with complain of swelling and severe pain wound lateral side of nailbed of right thumb which has been worsening for 3 days. Patient released from swelling wound with normal level blade after wound infiltrated with lidocaine. Patient followed decreased pain after pressure released from swelling. Patient discharged home on Keflex and topical Bactroban with PCP follow-up in 5 days. Patient tolerated procedure well. Tylenol 1 g by mouth given for pain. 03/13/18 18:43 *DC/Admit/Observation/Transfer Diagnosis at time of Disposition: Paronychia of finger of right hand - Discharge Dispostion Disposition: HOME Condition at time of disposition: Stable Decision to Admit order: No - Prescriptions Prescriptions: Acetaminophen [Tylenol] 650 mg PO QID PRN #20 capsule PRN Reason: pain Cephalexin [Keflex] 500 mg PO BID 7 Days #14 capsule Mupirocin Ointment [Bactroban 2% Ointment -] 1 applic TP BID #1 tube - Referrals Referrals: Casi Cohn [Primary Care Provider] - - Patient Instructions Printed Discharge Instructions: DI for Wound Infection Additional Instructions: Take prescribed medication as prescribed. Apply prescribed topical cream twice a day to wound on the healed. Follow-up with primary care in 5 days for wound check - Post Discharge Activity
== END 2018-03-13 18:08 | disposition home or self-care (01) ==
LOC: JERFT 17:21
PROC: 0J9J0ZZ Drainage of Right Hand Subcutaneous Tissue and Fascia, Open Approach (ICD-10-PCS; principal; 2018-03-13)
DX: L03.011 Cellulitis of right finger (principal); I25.10 Atherosclerotic heart disease of native coronary artery without angina pectoris; Z98.61 Coronary angioplasty status; I10 Essential (primary) hypertension; Z87.891 Personal history of nicotine dependence; I25.2 Old myocardial infarction; E78.00 Pure hypercholesterolemia, unspecified; J45.909 Unspecified asthma, uncomplicated; J44.9 Chronic obstructive pulmonary disease, unspecified
CPT/HCPCS: 99281-25

== ENCOUNTER 2018-03-19 21:23 | Emergency (ER) | payer OTHER ==
[2018-03-19 21:33] VITALS: BMI 27.4
[2018-03-19] MEDS ORDERED: PANTOPRAZOLE SODIUM 40 MG VIAL IVPUSH ONE (22:21)
[2018-03-19] MEDS ORDERED: ALBUTEROL SO4 2.5/IPRATROPIUM 0.5 INH SOL 3 ML VIAL.NEB. NEB ONE ×2 (22:24→23:01)
[2018-03-19] MEDS ORDERED: methylPREDNISolone NA SUCC 125 MG/2 ML VIAL IVPUSH ONE (22:25)
[2018-03-19] MEDS ORDERED: methylPREDNISolone NA SUCC 125 MG/2 ML VIAL ONE (23:01)
[2018-03-19] MEDS ORDERED: PANTOPRAZOLE SODIUM 40 MG VIAL ONE (23:02)
[2018-03-19 23:27] LABS: BASO % 1.4 % (0-2.0); EOS % 1.1 % (0-4.5); HEMATOCRIT 36.1 % (32.4-45.2); HEMOGLOBIN 12.5 GM/dL (10.7-15.3); LYMPH % 16.3 % (8-40); MCHC 34.5 g/dl (32.0-36.0); MEAN CELL VOLUME 86.9 fl (80-96); MONO % 6.5 % (3.8-10.2); NEUT % 74.7 % (42.8-82.8); PLATELET COUNT 366 K/MM3 (134-434); RBC 4.16 M/mm3 (3.60-5.2); RDW 16.2 % (11.6-15.6); WHITE BLOOD COUNT 6.6 K/mm3 (4.0-10.0)
[2018-03-19 23:30] LABS: MEAN PLT VOLUME 5.8 fl (7.5-11.1)
--- NOTE | 2018-03-19 23:33 | PDOC ---
History of Present Illness - General Chief Complaint: Shortness of Breath Stated Complaint: ALLERGIC REACTION Time Seen by Provider: 03/19/18 21:54 History Source: Patient, Old Records Exam Limitations: No Limitations - History of Present Illness Initial Comments: 62 y/o female presenting to [facility] ER via private auto complaining that, I am having an allergic reaction. Pt states that she began to experiencing shortness of breath, coughing, a burning sensation in her throat, a metallic taste in her mouth, lip burning, and felt as though her tongue was swelling. Self-administered 2x albuterol MDI doses with some improvement in breathing. Symptoms began around 17:00 tonight. Pt did not arrive in department until approx. 21:30 as she needed to shower and dress. Endorses chills and arm shaking episodically occurring over the past few days. Was evaluated at this facility on 13 March 2018 with concern for an infected finger; has two days remaining of Cephalexin 500mg. Was also discharged from [facility] on 04 Mar 2018 after a prolonged stay for COPD exacerbation. Is continuing to take Azithromycin as prescribed from this visit. Denies chest pain, palpitations, syncope, abdominal pain, or GI symptoms. Pt has h/o of 2x [place] (last 15-20 years ago per pt estimate) and is s/p multiple angioplasty (also last 15-20 years ago per pt estimate). S/p carotid endarterectomy. H/o HTN. H/o ASHD. H/o COPD and Laryngopharyngeal reflux disease per [facility] chart. Past History - Past Medical History Allergies/Adverse Reactions: Allergies Allergy/AdvReac Type Severity Reaction Status Date / Time No Known Drug Allergies Allergy Verified 03/19/18 21:27 Home Medications: Ambulatory Orders Albuterol 2.5/Ipratropium 0.5 [Duoneb -] 1 neb NEB Q4H PRN #0 vial 12/27/12 Atorvastatin Calcium [Lipitor] 80 mg PO HS #0 tablet 12/27/12 Clopidogrel Bisulfate [Plavix -] 75 mg PO DAILY #0 tablet 12/27/12 Folic Acid - 1 mg PO DAILY #0 tablet 12/27/12 Furosemide [Lasix -] 20 mg PO DAILY #0 tablet 12/27/12 Isosorbide Mononitrate [Imdur] 30 mg PO BID #0 tab.sr.24h 06/04/13 Montelukast Na [Singulair -] 10 mg PO HS #0 tablet 12/27/12 Ranitidine [Zantac -] 150 mg PO DAILY #0 tablet 12/27/12 Tiotropium [place] [Spiriva] 1 inh IH DAILY #0 inh 12/27/12 Fluticasone Prop 0.05% Nasal [Flonase -] 1 - 2 spray NS BID #1 spray.pump Mag Hydrox/Al Hydrox/Simeth [Mylanta Oral Suspension -] 30 ml PO Q6H PRN #0 cup 04/16/15 Acetaminophen [Tylenol .Regular Strength -] 650 mg PO Q6H PRN #0 tablet Docusate Sodium [Colace -] 300 mg PO HS capsule 08/16/16 Nitroglycerin 0.4 mg SL AM PRN #90 tab.subl 08/16/16 Pantoprazole Sodium [Protonix -] 40 mg PO DAILY #90 tablet.ec 08/16/16 Ranolazine [Ranexa -] 500 mg PO BID #180 tab 08/16/16 Verapamil HCl ER [Calan Sr -] 240 mg PO BID #180 tablet.er 08/16/16 Potassium Chloride [K-Dur -] 10 meq PO BID 02/15/18 Azithromycin [Zithromax 250mg Tablets -] 250 mg PO DAILY #30 tablet 03/03/18 Budesonide/Formeterol Fumarate [SYMBICORT 160/4.5mcg -] 2 puff IH BID #3 inhaler 03/03/18 Guaifenesin Dm [Robitussin Dm -] 10 ml PO Q6H PRN cup 03/03/18 Nystatin Cream [Mycostatin Cream -] 1 applic TP BID applic 03/03/18 Prednisone 10 mg PO DAILY #20 tablet 03/03/18 Sodium Chloride Nasal Eckerty [[place] Eckerty Nasal Eckerty -] 2 spray NS TID spray Acetaminophen [Tylenol] 650 mg PO QID PRN #20 capsule 03/13/18 Cephalexin [Keflex] 500 mg PO BID 7 Days #14 capsule 03/13/18 Mupirocin Ointment [Bactroban 2% Ointment -] 1 applic TP BID #1 tube 03/13/18 Clotrimazole [Antifungal] 30 gm TP BID #1 cream..g. 03/20/18 Prednisone [Prednisone 50 MG TABLETS] 50 mg PO DAILY #3 tablet 03/20/18 Anemia: No Asthma: Yes Cancer: No Cardiac Disorders: Yes ([place] X 2) CVA: No COPD: Yes CHF: No Dementia: No Diabetes: No GI Disorders: Yes (HERNIA) Disorders: No HTN: Yes Hypercholesterolemia: Yes Liver Disease: No Seizures: No Thyroid Disease: No - Surgical History Abdominal Surgery: Yes Appendectomy: No Cardiac Surgery: Yes (Angioplasty, Carotid Artery) Cholecystectomy: Yes Lung Surgery: No Neurologic Surgery: No Orthopedic Surgery: No - Immunization History Immunization Up to Date: Yes (no flu or pna) - Suicide/Smoking/Psychosocial Hx Smoking Status: Yes Smoking History: Former smoker Have you smoked in the past 12 months: Yes Number of Cigarettes Smoked Daily: 10 If you are a former smoker, when did you quit?: 2014 Information on smoking cessation initiated: No 'Breaking Loose' booklet given: 12/20/12 Hx Alcohol Use: No Drug/Substance Use Hx: No Substance Use Type: None Hx Substance Use Treatment: No Review of Systems - Review of Systems Able to Perform ROS?: Yes Is the patient limited Italian proficient: No Constitutional: Yes: Chills, Diaphoresis, Fever HEENTM: Yes: Throat Swelling, Difficulty Swallowing Respiratory: Yes: Cough, Shortness of Breath, Wheezing Cardiac (ROS): No: Chest Pain, Palpitations, Syncope ABD/GI: No: Constipated, Diarrhea, Nausea, Vomiting : No: Burning, Dysuria, Discharge, Frequency, Hematuria Integumentary: Yes: Rash Neurological: No: Unsteady Gait Hematologic/Lymphatic: No: Easy Bleeding, Easy Bruising *Physical Exam - Vital Signs Last Vital Signs Temp Pulse Resp BP Pulse Ox 98.2 F 102 H 20 125/64 98 03/19/18 21:28 03/19/18 21:28 03/19/18 21:28 03/19/18 21:28 03/19/18 21:33 - Physical Exam Comments: Constitutional: Well-developed, well-nourished female in no acute distress. Noted to be ambulating without assistance around exam room prior to interview. Found sitting upright on edge of bed. Alert and oriented x4. Answered all questions appropriately and completely. Speech was non-labored, non-pressured. THROAT: Oral cavity and pharynx normal: no inflammation, swelling, exudate, or lesions. No edema to posterior oropharynx. Lips do not appear edematous or erythematous. Neck is supple, trachea is midline. HEENT: Normocephalic. No obvious external signs of trauma. Hearing grossly normal. No nasal discharge. Cardiovascular: Regular rate and regular rhythm. No murmur, rubs, clicks, or gallops. Peripheral pulses: Radial pulses full. Respiratory: Equal chest rise and fall. Breathing unlabored. Borderline tachypnic. Moderate wheezing noted diffusely, no stridor or rhonchi. Gastrointestinal: abdomen is soft, non-tender, non-distended. Spigelian hernia noted on left side. Neuro: Alert and oriented. Moving all four extremities spontaneously. Normal gait. Skin: Warm and dry. 5cm non-raised erythematous rash at left inframammary fold. Psych: Affect: appropriate. Mood: concerned ED Treatment Course - LABORATORY CBC & Chemistry Diagram: 03/19/18 23:21 03/19/18 23:21 - RADIOLOGY Radiology Studies Ordered: Category Date Time Status CHEST PA & LAT [RAD] Stat Radiology 03/19/18 22:26 Ordered - Medications Given in the ED: ED Medications Discontinued Medications Generic Name Dose Route Start Last Admin Trade Name Freq PRN Reason Stop Dose Admin Albuterol/Ipratropium 3 amp 03/19/18 22:24 03/19/18 23:21 Duoneb - NEB 03/19/18 22:25 3 amp ONCE ONE Administration Diphenhydramine HCl 12.5 mg 03/19/18 22:19 03/19/18 23:21 Benadryl Injection - IVPUSH 03/19/18 22:20 12.5 mg ONCE ONE Administration Methylprednisolone Sodium Succinate 125 mg 03/19/18 22:25 03/19/18 23:21 Solu-Medrol - IVPUSH 03/19/18 22:26 125 mg ONCE ONE Administration Pantoprazole Sodium 40 mg 03/19/18 22:21 03/19/18 23:21 Protonix Iv IVPUSH 03/19/18 22:22 40 mg ONCE ONE Administration Medical Decision Making - Medical Decision Making 62 y/o female complaining of shortness of breath, burning sensation in her throat, and a metallic taste in her mouth. In setting of h/o COPD, multiple cardiac comorbidities, and laryngopharyngeal reflux. Afebrile. Vitals unremarkable for hypotension, borderline tachycardia. Physical exam unrevealing for stridor, oropharynx non-edematous, no other obvious signs of allergic reaction or airway compromise. Suspect symptoms are acute exacerbation of laryngopharyngeal reflux. Also considering acute COPD exacerbation. Low suspicion for ACS but will evaluate further given extensive cardiac history. Low suspicion for allergic reaction or anaphylaxis without airway compromise, vital sign derangement, or other obvious signs of reaction. Will obtain EKG and CXR. Duoneb x3, diphenhydramine, methylprednisolone, and pantoprazole ordered for symptom relief. 23:05 Pt observed ambulating without assistance across department to use bathroom without obvious distress. Pt declined EKG because its always messed up and I get charged for it. Explained the tracing would help me evaluate her heart rhythm and structure. Again declined. 00:30 Pt re-evaluated. States she is feeling better. Diffuse wheezing greatly improved. Pts respirations remain unlabored. Oropharynx remains non-edematous. Lips unchanged from initial evaluation. CXR: No acute cardiopulmonary process. Good inspiratory effort. No infiltrates. No blunting of costophrenic angles. Cardiac silhouette not enlarged. Pt requested prescription for rash under breast. Suspect sheron corpus. Will prescribed two week course of clotrimazole. Discussed unremarkable laboratory and radiographic results with patient. Answered all questions. Pt and expressed verbal understanding and agreement with plan to discharge home with outpatient PCP follow up within the next 2-4 days. Copy of laboratory results provided to pt. Prescribed 3 day course of prednisone and 2 week course of clotrimazole to pharmacy of record. Instructed pt to stop taking cephalexin but continue azithromycin. Pt noted to be mildly tachycardic and tremulus on discharge. Suspect secondary to multiple duoneb treatments received during course of visit. Pt still safe to discharge home. *DC/Admit/Observation/Transfer Diagnosis at time of Disposition: Shortness of breath - Discharge Dispostion Disposition: HOME Condition at time of disposition: Good Decision to Admit order: No - Prescriptions Prescriptions: Clotrimazole [Antifungal] 30 gm TP BID #1 cream..g. Prednisone [Prednisone 50 MG TABLETS] 50 mg PO DAILY #3 tablet - Referrals Referrals: Casi Cohn [Primary Care Provider] - - Patient Instructions Printed Discharge Instructions: DI for Shortness of Breath, DI for Tinea Corporis Additional Instructions: Your blood work and chest xray were normal today. I have attached a copy of the blood work results to the back of this packet. Stop the Cephalexin but continue the Azithromycin as prescribed. I have sent prescriptions for Prednisone and Clotrimazole to the [facility] at [address] [place] [address]. Their phone number is . Please take the Prednisone once a day for the next three days. Please apply the Clotrimazole to your skin rash twice a day for the next two weeks. You can also buy Clotrimazole over the counter at the pharmacy. Ask your pharmacist which is cheaper. If you buy the Clotrimazole over the counter, please follow the package instructions. Please follow up with your primary care physician within the next 2-4 days. You will need to call the office to make an appointment. The phone number is provided in this packet. Come back to the emergency department if your symptoms worsen or you feel like you need additional emergency evaluation. Print Language: SWEDISH - Post Discharge Activity
[2018-03-19 23:51] LABS: ANISOCYTOSIS 1+; MACROCYTOSIS 1+; PLATELET ESTIMATE ADEQUATE
[2018-03-19 23:55] LABS: ANION GAP 9 MMOL/L (8-16); BLOOD UREA NITROGEN 5 mg/dL (7-18); CALCIUM 8.4 mg/dL (8.5-10.1); CHLORIDE 98 mmol/L (98-107); CO2 28 mmol/L (21-32); CREATININE 0.7 mg/dL (0.55-1.02); GLUCOSE,RANDOM 92 mg/dL (74-106); SODIUM 135 mmol/L (136-145)
[2018-03-19 23:57] LABS: POTASSIUM 3.4 mmol/L (3.5-5.1)
--- NOTE | 2018-03-20 01:23 | PDOC ---
Attending Attestation - HPI HPI: 03/20/18 01:23 The patient is a 62 year old female, with a significant past medical history of COPD, [place] x2, who presents to the emergency department with sudden onset of difficulty breathing and lip tingling and swelling after taking an Advil at 5pm. She states she took the Advil and felt it got stuck in her throat. She states she tried to cough up the pill, however, the pill did not come up and she developed a powder sensation in her throat which she states closed her airway. She states her gave her two rounds of albuterol treatments, but the patient states her difficulty breathing improved minimally. She states she has been taking 13 days of Keflex since her recent discharge from the hospital. She also reports an acid taste in her mouth which radiates from her chest. The patient denies chest pain, headache and dizziness. The patient denies fever , chills, nausea, vomit, diarrhea and constipation. The patient denies dysuria, frequency, urgency and hematuria. Allergies: NKDA - Physicial Exam PE: 03/20/18 01:23 ROS: A complete review of 10 out of 10 review of systems is taken and is negative apart from what is previously mentioned below and in the HPI. Adult Physical Exam Vitals: Triage vital signs reviewed General Appearance: No acute distress, well nourished, well developed Head: Atraumatic Eyes: Pupils equal reactive round, extraocular movement intact Neck: Supple; No nuchal rigidity Cardiac: Regular rate and rhythm, no murmurs, no rubs, no gallops Lungs: (+) mild diffuse wheezing. No crackles or rales. Abdomen: Soft, nondistended, normal bowel sounds, nontender to palpation Extremities: Full range of motion to all extremities, no cyanosis, clubbing, or edema Skin: (+) well-healing wound to right thumb. Warm and dry, no rashes, no rash, no petechiae Neuro: AOX3; Cranial Nerves 2-12 grossly intact, Strength intact to all extremities, Sensation intact to all extremities, gait normal Psych: Normal mood, normal affect - Medical Decision Making 03/20/18 01:24 Documentation prepared by Flora Gloria, acting as chief medical officer for John Ji MD, <Flora Gloria - Last Filed: 03/20/18 01:24> - Resident Resident Name: Rigo Regan - ED Attending Attestation I have performed the following: I have examined & evaluated the patient, The case was reviewed & discussed with the resident, I agree w/resident's findings & plan, Exceptions are as noted - Medical Decision Making 62 years old presents with possible mild ALLERGIC reaction. 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 Pt. Refused EKG We'll treat with Solu-Medrol Benadryl tabs and reassessed Reevaluation: wheezing improved patient feels much better. This was her th day of Keflex she can discontinue her last dose for her finger infection. We will discharge on 3 day course of prednisone patient advised to follow-up with her primary care provider on Wednesday to have her finger reexamined and to determine if she needs additional prednisone. She was instructed to return to the emergency department should her finger become more red and swollen or infection worse or should she develop any returning shortness of breath chest pain or for any concerns. Findings, the need for follow-up, and strict return instructions discussed with patient. <John Ji - Last Filed: 03/20/18 01:42>
[2018-03-20 02:01] VITALS: BP 106/62; PULSE 94; TEMP 97.9
== END 2018-03-20 01:30 | disposition home or self-care (01) ==
LOC: JER 21:23
PROC: 3E0F7GC Introduction of Other Therapeutic Substance into Respiratory Tract, Via Natural or Artificial Opening (ICD-10-PCS; principal; 2018-03-19)
PROC: 3E0333Z Introduction of Anti-inflammatory into Peripheral Vein, Percutaneous Approach (ICD-10-PCS; 2018-03-19)
PROC: 3E033GC Introduction of Other Therapeutic Substance into Peripheral Vein, Percutaneous Approach (ICD-10-PCS; 2018-03-19)
PROC: 3E033GC Introduction of Other Therapeutic Substance into Peripheral Vein, Percutaneous Approach (ICD-10-PCS; 2018-03-19)
DX: R06.02 Shortness of breath (principal); I25.10 Atherosclerotic heart disease of native coronary artery without angina pectoris; I25.2 Old myocardial infarction; I10 Essential (primary) hypertension; Z98.61 Coronary angioplasty status; J44.9 Chronic obstructive pulmonary disease, unspecified; Z87.891 Personal history of nicotine dependence; Z86.79 Personal history of other diseases of the circulatory system; J45.909 Unspecified asthma, uncomplicated
CPT/HCPCS: 36415; 71046-TC-FY; 80048; 84484; 85025; 99284-25; J7620

== ENCOUNTER 2018-04-29 15:00 | Inpatient (IN) | payer OTHER ==
--- NOTE | 2018-04-29 15:06 | PDOC ---
Rapid Medical Evaluation Time Seen by Provider: 04/29/18 15:02 Medical Evaluation: Allergies Allergy/AdvReac Type Severity Reaction Status Date / Time No Known Drug Allergies Allergy Verified 03/19/18 21:27 04/29/18 15:03 I have performed a brief in person evaluation of this patient The patient presents with a chief complaint of shortness of breath, chest pressure and leg swelling/pain for 4 days. She is ex smoker, has a h/o COPD and was Sent by PMD for evaluation Pertinent physical exam findings: slightly labored breathing, decreased breath sounds diffusely with diffuse wheezing, bilateral lowere extremity edema I have ordered the following: CBC, CMP, Lipase, UA, Ucx, PT/INR, EKG, CXR, cardiac enzymes, duoneb The patient will proceed to the ED for further eval Discharge Disposition - Diagnosis SOB (shortness of breath) - Referrals Referrals: Casi Cohn [Primary Care Provider] - - Patient Instructions - Post Discharge Activity
[2018-04-29] MEDS ORDERED: ALBUTEROL SO4 2.5/IPRATROPIUM 0.5 INH SOL 3 ML VIAL.NEB. NEB ONE ×3 (15:11→19:07)
[2018-04-29 15:59] LABS: VENOUS PC02 43.6 mmHg (38-52); VENOUS PH 7.4 (7.32-7.42); VENOUS PO2 45.5 mmHg (28-48)
[2018-04-29 16:16] LABS: EOS % 0.7 % (0-4.5); HEMATOCRIT 40.2 % (32.4-45.2); HEMOGLOBIN 13.2 GM/dL (10.7-15.3); MCH 29.7 pg (25.7-33.7); MCHC 32.8 g/dl (32.0-36.0); MEAN CELL VOLUME 90.4 fl (80-96); MEAN PLT VOLUME 6.6 fl (7.5-11.1); MONO % 5.3 % (3.8-10.2); PLATELET COUNT 307 K/MM3 (134-434); RBC 4.45 M/mm3 (3.60-5.2); RDW 16.6 % (11.6-15.6); WHITE BLOOD COUNT 8.2 K/mm3 (4.0-10.0)
[2018-04-29 16:24] LABS: ALK PHOS 117 U/L (45-117); ANION GAP 10 MMOL/L (8-16); BILIRUBIN,TOTAL 0.5 mg/dL (0.2-1); BLOOD UREA NITROGEN 6 mg/dL (7-18); CALCIUM 9.3 mg/dL (8.5-10.1); CHLORIDE 102 mmol/L (98-107); CO2 27 mmol/L (21-32); CREATININE 0.9 mg/dL (0.55-1.3); GLUCOSE,RANDOM 122 mg/dL (74-106); LIPASE 85 U/L (73-393); PHOSPHOROUS 3.4 mg/dL (2.5-4.9); POTASSIUM 3.3 mmol/L (3.5-5.1); SGOT/AST 23 U/L (15-37); SGPT/ALT 25 U/L (13-61); SODIUM 140 mmol/L (136-145); TOT PROT 7.5 g/dl (6.4-8.2)
[2018-04-29 16:29] LABS: URINE APPEARANCE CLEAR; URINE BILIRUBIN NEGATIVE (<2.0 mg/dL); URINE COLOR COLORLESS; URINE GLUCOSE (UA) NEGATIVE (NEGATIVE); URINE KETONE NEGATIVE (NEGATIVE); URINE LEUK ESTERASE NEGATIVE (NEGATIVE); URINE NITRITE NEGATIVE (NEGATIVE); URINE PROTEIN NEGATIVE (NEGATIVE); URINE UROBILINOGEN NEGATIVE mg/dL (0.2-1.0)
[2018-04-29 16:46] LABS: EPI CELLS RARE /HPF (FEW)
--- NOTE | 2018-04-29 19:02 | PDOC ---
History of Present Illness - History of Present Illness Initial Comments: 04/29/18 19:06 The patient is a 62 year old female with past medical history significant for CAD, HTN, [place] s/p angioplasty 2011, L. ventricular end diastolic dysfunction, PVD , asthma, COPD, Mesenteric ischemia treated with SMA bypass 2011, and Renal Failure (required temporary dialysis 2011) presents to the emergency department with shortness of breath and leg swelling. The patient was sent to the ED by PCP , states at the office patient had elevated BP of 170/80 and elevated heart rate. The patient presents with 1 week of bilateral leg swelling with pain, right leg greater than left. The patient states the pain is achy in quality. The patient reports an additional complaint of shortness of breath since last night. Denies the use of o2 at home, hx of DM. Allergies: Patient reports having an adverse reaction to advil in the past. Social history: Former smoker, quit 3 years ago. Past Surgical History: Carotid Endarterectomy, Cholecystectomy, Colonoscopy, Upper Endoscopy PCP: Casi Cohn Practice Director: Dr. Manning Cartographic Engineer: Dr. Jenkins <Jenny Hyde - Last Filed: 04/29/18 19:06> - General History Source: Patient Exam Limitations: No Limitations - History of Present Illness Initial Comments: 04/29/18 18 <Pao Corbett - Last Filed: 04/29/18 19:45> - General Chief Complaint: Shortness of Breath Stated Complaint: SENT PCP Time Seen by Provider: 04/29/18 15:02 Past History <Jenny Hyde - Last Filed: 04/29/18 19:06> - Past Medical History Anemia: No Asthma: Yes Cancer: No Cardiac Disorders: Yes ([place] X 2) CVA: No COPD: Yes CHF: No Dementia: No Diabetes: No GI Disorders: Yes (HERNIA) Disorders: No HTN: Yes Hypercholesterolemia: Yes Liver Disease: No Seizures: No Thyroid Disease: No - Surgical History Abdominal Surgery: Yes Appendectomy: No Cardiac Surgery: Yes (Angioplasty, Carotid Artery) Cholecystectomy: Yes Lung Surgery: No Neurologic Surgery: No Orthopedic Surgery: No - Immunization History Immunization Up to Date: Yes (no flu or pna) - Suicide/Smoking/Psychosocial Hx Smoking Status: Yes Smoking History: Former smoker Have you smoked in the past 12 months: Yes Number of Cigarettes Smoked Daily: 10 If you are a former smoker, when did you quit?: 2014 Information on smoking cessation initiated: No 'Breaking Loose' booklet given: 12/20/12 Hx Alcohol Use: No Drug/Substance Use Hx: No Substance Use Type: None Hx Substance Use Treatment: No <Pao Corbett - Last Filed: 04/29/18 19:45> - Past Medical History Allergies/Adverse Reactions: Allergies Allergy/AdvReac Type Severity Reaction Status Date / Time No Known Drug Allergies Allergy Verified 04/29/18 15:06 Home Medications: Ambulatory Orders Albuterol 2.5/Ipratropium 0.5 [Duoneb -] 1 neb NEB Q4H PRN #0 vial 12/27/12 Atorvastatin Calcium [Lipitor] 80 mg PO HS #0 tablet 12/27/12 Clopidogrel Bisulfate [Plavix -] 75 mg PO DAILY #0 tablet 12/27/12 Folic Acid - 1 mg PO DAILY #0 tablet 12/27/12 Furosemide [Lasix -] 20 mg PO DAILY #0 tablet 12/27/12 Isosorbide Mononitrate [Imdur] 30 mg PO BID #0 tab.sr.24h 12/27/12 Montelukast Na [Singulair -] 10 mg PO HS #0 tablet 12/27/12 Ranitidine [Zantac -] 150 mg PO DAILY #0 tablet 12/27/12 Tiotropium [place] [Spiriva] 1 inh IH DAILY #0 inh 12/27/12 Fluticasone Prop 0.05% Nasal [Flonase -] 1 - 2 spray NS BID #1 spray.pump Mag Hydrox/Al Hydrox/Simeth [Mylanta Oral Suspension -] 30 ml PO Q6H PRN #0 cup 04/16/15 Acetaminophen [Tylenol .Regular Strength -] 650 mg PO Q6H PRN #0 tablet Docusate Sodium [Colace -] 300 mg PO HS capsule 08/16/16 Nitroglycerin 0.4 mg SL AM PRN #90 tab.subl 08/16/16 Pantoprazole Sodium [Protonix -] 40 mg PO DAILY #90 tablet.ec 08/16/16 Ranolazine [Ranexa -] 500 mg PO BID #180 tab 08/16/16 Verapamil HCl ER [Calan Sr -] 240 mg PO BID #180 tablet.er 08/16/16 Potassium Chloride [K-Dur -] 10 meq PO BID 02/15/18 Azithromycin [Zithromax 250mg Tablets -] 250 mg PO DAILY #30 tablet 03/03/18 Budesonide/Formeterol Fumarate [SYMBICORT 160/4.5mcg -] 2 puff IH BID #3 inhaler 03/03/18 Guaifenesin Dm [Robitussin Dm -] 10 ml PO Q6H PRN cup 03/03/18 Sodium Chloride Nasal [place] [[place] Nasal [place] -] 2 spray NS TID spray Mupirocin Ointment [Bactroban 2% Ointment -] 1 applic TP BID #1 tube 03/13/18 Clotrimazole [Antifungal] 30 gm TP BID #1 cream..g. 03/20/18 Alprazolam [Xanax] 0 mg PO PRN PRN 04/29/18 Review of Systems - Review of Systems Able to Perform ROS?: Yes Comments:: 04/29/18 19:06 GENERAL/CONSTITUTIONAL: No fever or chills. No weakness. HEAD, EYES, EARS, NOSE AND THROAT: No change in vision. No ear pain or discharge. No sore throat. CARDIOVASCULAR: (+) shortness of breath. No chest pain. RESPIRATORY: No cough, wheezing, or hemoptysis. GASTROINTESTINAL: No nausea, vomiting, diarrhea or constipation. GENITOURINARY: No dysuria, frequency, or change in urination. MUSCULOSKELETAL: No joint or muscle swelling or pain. No neck or back pain. EXTREMITY: B/l lower extremity swelling with pain, worse on the R. SKIN: No rash NEUROLOGIC: No headache, vertigo, loss of consciousness, or change in strength/ sensation. ENDOCRINE: No increased thirst. No abnormal weight change. HEMATOLOGIC/LYMPHATIC: No anemia, easy bleeding, or history of blood clots. ALLERGIC/IMMUNOLOGIC: No hives or skin allergy. <Jenny Hyde - Last Filed: 04/29/18 19:06> *Physical Exam - Vital Signs Last Vital Signs Temp Pulse Resp BP Pulse Ox 98.2 F 105 H 24 H 173/82 H 97 04/29/18 15:07 04/29/18 15:07 04/29/18 15:07 04/29/18 15:07 04/29/18 15:07 <Jenny Hyde - Last Filed: 04/29/18 19:06> - Vital Signs Last Vital Signs Temp Pulse Resp BP Pulse Ox 98.2 F 105 H 24 H 173/82 H 97 04/29/18 15:07 04/29/18 15:07 04/29/18 15:07 04/29/18 15:07 04/29/18 15:07 - Physical Exam Comments: 04/29/18 19:44 awake alert lungs with bilateral wheezing, mild increased resp effort. heart rrr no mrg. abd soft nt nd. ext wwp. bilateral pitting edema lower ankles. right greater than left. anterior right morrow ttp. 2 + dp pt pulses bilaterally. no warmth. nuero awake alert oriented x 3. <Pao Corbett - Last Filed: 04/29/18 19:45> ED Treatment Course - LABORATORY CBC & Chemistry Diagram: 04/29/18 15:44 04/29/18 15:44 - ADDITIONAL ORDERS Additional order review: Laboratory Results 04/29/18 04/29/18 04/29/18 15:55 15:44 15:44 PT with INR INR VBG pH 7.40 POC VBG pCO2 43.6 POC VBG pO2 45.5 Mixed VBG HCO3 26.2 H Sodium 140 Potassium 3.3 L Chloride 102 Carbon Dioxide 27 Anion Gap 10 BUN 6 L Creatinine 0.9 Creat Clearance w eGFR > 60 Random Glucose 122 H Calcium 9.3 Phosphorus 3.4 Magnesium 2.0 Total Bilirubin 0.5 AST 23 ALT 25 Alkaline Phosphatase 117 Creatine Kinase 82 Troponin I < 0.02 Total Protein 7.5 Albumin 4.0 Lipase 85 Urine Color Colorless Urine Appearance Clear Urine pH 5.0 D Ur Specific [place] 1.003 L Urine Protein Negative Urine Glucose (UA) Negative Urine Ketones Negative Urine Blood 1+ H Urine Nitrite Negative Urine Bilirubin Negative Urine Urobilinogen Negative Ur Leukocyte Esterase Negative Urine WBC (Auto) None Urine RBC (Auto) <1 Ur Epithelial Cells Rare 04/29/18 15:44 PT with INR Cancelled INR Cancelled VBG pH POC VBG pCO2 POC VBG pO2 Mixed VBG HCO3 Sodium Potassium Chloride Carbon Dioxide Anion Gap BUN Creatinine Creat Clearance w eGFR Random Glucose Calcium Phosphorus Magnesium Total Bilirubin AST ALT Alkaline Phosphatase Creatine Kinase Troponin I Total Protein Albumin Lipase Urine Color Urine Appearance Urine pH Ur Specific [place] Urine Protein Urine Glucose (UA) Urine Ketones Urine Blood Urine Nitrite Urine Bilirubin Urine Urobilinogen Ur Leukocyte Esterase Urine WBC (Auto) Urine RBC (Auto) Ur Epithelial Cells 04/29/18 15:44 RBC 4.45 MCV 90.4 MCHC 32.8 RDW 16.6 H MPV 6.6 L D Neutrophils % 77.0 Lymphocytes % 16.0 Monocytes % 5.3 Eosinophils % 0.7 Basophils % 1.0 - Medications Given in the ED: ED Medications Discontinued Medications Generic Name Dose Route Start Last Admin Trade Name Freq PRN Reason Stop Dose Admin Albuterol/Ipratropium 1 amp 04/29/18 15:11 04/29/18 15:31 Duoneb - NEB 04/29/18 15:12 1 amp ONCE ONE Administration <Jenny Hyde - Last Filed: 04/29/18 19:06> - LABORATORY CBC & Chemistry Diagram: 04/29/18 15:44 04/29/18 15:44 - ADDITIONAL ORDERS Additional order review: Laboratory Results 04/29/18 04/29/18 04/29/18 15:55 15:44 15:44 PT with INR INR VBG pH 7.40 POC VBG pCO2 43.6 POC VBG pO2 45.5 Mixed VBG HCO3 26.2 H Sodium 140 Potassium 3.3 L Chloride 102 Carbon Dioxide 27 Anion Gap 10 BUN 6 L Creatinine 0.9 Creat Clearance w eGFR > 60 Random Glucose 122 H Calcium 9.3 Phosphorus 3.4 Magnesium 2.0 Total Bilirubin 0.5 AST 23 ALT 25 Alkaline Phosphatase 117 Creatine Kinase 82 Troponin I < 0.02 Total Protein 7.5 Albumin 4.0 Lipase 85 Urine Color Colorless Urine Appearance Clear Urine pH 5.0 D Ur Specific [place] 1.003 L Urine Protein Negative Urine Glucose (UA) Negative Urine Ketones Negative Urine Blood 1+ H Urine Nitrite Negative Urine Bilirubin Negative Urine Urobilinogen Negative Ur Leukocyte Esterase Negative Urine WBC (Auto) None Urine RBC (Auto) <1 Ur Epithelial Cells Rare 04/29/18 15:44 PT with INR Cancelled INR Cancelled VBG pH POC VBG pCO2 POC VBG pO2 Mixed VBG HCO3 Sodium Potassium Chloride Carbon Dioxide Anion Gap BUN Creatinine Creat Clearance w eGFR Random Glucose Calcium Phosphorus Magnesium Total Bilirubin AST ALT Alkaline Phosphatase Creatine Kinase Troponin I Total Protein Albumin Lipase Urine Color Urine Appearance Urine pH Ur Specific [place] Urine Protein Urine Glucose (UA) Urine Ketones Urine Blood Urine Nitrite Urine Bilirubin Urine Urobilinogen Ur Leukocyte Esterase Urine WBC (Auto) Urine RBC (Auto) Ur Epithelial Cells 04/29/18 15:44 RBC 4.45 MCV 90.4 MCHC 32.8 RDW 16.6 H MPV 6.6 L D Neutrophils % 77.0 Lymphocytes % 16.0 Monocytes % 5.3 Eosinophils % 0.7 Basophils % 1.0 - RADIOLOGY Radiology Studies Ordered: Category Date Time Status CHEST PA & LAT [RAD] Stat Radiology 04/29/18 16:51 Taken - Medications Given in the ED: ED Medications Discontinued Medications Generic Name Dose Route Start Last Admin Trade Name Freq PRN Reason Stop Dose Admin Albuterol/Ipratropium 1 amp 04/29/18 15:11 04/29/18 15:31 Duoneb - NEB 04/29/18 15:12 1 amp ONCE ONE Administration <Pao Corbett - Last Filed: 04/29/18 19:45> Medical Decision Making - Medical Decision Making 04/29/18 18:58 62 ho copd, cad, htn, prior [place] with stent, PVD, prior renal failure requiring temporary dialysis in 2011 <Pao Corbett - Last Filed: 04/29/18 19:45> *DC/Admit/Observation/Transfer - Attestations Scribe Attestion: 04/29/18 19:06 Documentation prepared by Jenny Hyde, acting as medical office technology instructor for Pao Corbett MD. <Jenny Hyde - Last Filed: 04/29/18 19:06> - Discharge Dispostion Decision to Admit order: Yes <Pao Corbett - Last Filed: 04/29/18 19:45> Diagnosis at time of Disposition: SOB (shortness of breath), COPD (chronic obstructive pulmonary disease) - Referrals Referrals: Casi Cohn [Primary Care Provider] - - Patient Instructions - Post Discharge Activity
[2018-04-29] MEDS ORDERED: methylPREDNISolone NA SUCC 125 MG/2 ML VIAL IVPB ONE (19:05)
[2018-04-29] MEDS ORDERED: ACETAMINOPHEN 1000 MG/100 ML VIAL (NON FORMULARY) IVPB ONE (19:06)
[2018-04-29] MEDS ORDERED: ACETAMINOPHEN INJECTION 100 ML IVPB ONE (19:07)
[2018-04-29] MEDS ORDERED: methylPREDNISolone NA SUCC 125 MG/2 ML VIAL ONE (19:07)
[2018-04-29] MEDS ORDERED: NITROGLYCERIN SUBLINGUAL 1/150 0.4 MG TAB SL PRN (20:40)
[2018-04-29] MEDS ORDERED: guaiFENesin/D-METHORPHAN HB 10 ML UNIT-DOSE CUPS PO PRN (20:40)
[2018-04-29] MEDS ORDERED: FUROSEMIDE 40 MG/4 ML INJECTABLE VIAL ONE (23:12)
[2018-04-29] MEDS ORDERED: ALPRAZolam 0.25 MG TABLET ONE (23:31)
[2018-04-29] MEDS: FUROSEMIDE 40 MG/4 ML INJECTABLE VIAL IVPUSH SCH (23:37)
[2018-04-29] MEDS: methylPREDNISolone NA SUCC 125 MG/2 ML VIAL IVPB SCH ×2 (23:37→23:38)
[2018-04-29] MEDS: ALPRAZolam 0.25 MG TABLET PO PRN (23:37)
[2018-04-29] MEDS: DOCUSATE SODIUM 100 MG CAPSULE (FP) PO SCH (23:38)
[2018-04-29] MEDS: MUPIROCIN 2% TOPICAL OINTMENT 22 GM TUBE TP SCH (23:38)
[2018-04-29] MEDS: FLUTICASONE PROP 0.05% 16 GM NASAL SPRAY NS SCH (23:38)
[2018-04-29] MEDS: VERAPAMIL HCL 240 MG E.R. TABLET (FP) PO SCH (23:38)
[2018-04-29] MEDS: CLOTRIMAZOLE 1% CREAM 15 GM TUBE TP SCH (23:39)
[2018-04-29] MEDS: POTASSIUM CHLORIDE TABS 10 MEQ TABLET.ER (FP) PO SCH (23:39)
[2018-04-29] MEDS: ATORVASTATIN CA 80 MG TABLET (FP) PO SCH (23:39)
[2018-04-29] MEDS: BUDESONIDE/FORMETEROL FUMARATE 160/4.5 mcg INHALER IH SCH (23:40)
[2018-04-29] MEDS: RANOLAZINE E.R. 500 MG TABLET (FP) PO SCH (23:40)
[2018-04-29] MEDS: MONTELUKAST NA 10 MG TABLET PO SCH (23:40)
[2018-04-29] MEDS: SODIUM CHLORIDE NASAL SPRAY 44 ML BOTTLE NS SCH (23:40)
[2018-04-30] MEDS ORDERED: methylPREDNISolone NA SUCC 40 MG/1 ML VIAL ONE (04:34)
[2018-04-30] MEDS: methylPREDNISolone NA SUCC 125 MG/2 ML VIAL IVPB SCH ×4 (04:45→21:46)
[2018-04-30] MEDS: SODIUM CHLORIDE NASAL SPRAY 44 ML BOTTLE NS SCH ×3 (06:11→21:52)
[2018-04-30 07:05] LABS: BASO % 0.3 % (0-2.0); HEMATOCRIT 38.2 % (32.4-45.2); HEMOGLOBIN 12.6 GM/dL (10.7-15.3); LYMPH % 12.5 % (8-40); MCH 29.5 pg (25.7-33.7); MEAN CELL VOLUME 89.5 fl (80-96); MEAN PLT VOLUME 6.8 fl (7.5-11.1); MONO % 0.8 % (3.8-10.2); NEUT % 86.4 % (42.8-82.8); PLATELET COUNT 287 K/MM3 (134-434); RBC 4.27 M/mm3 (3.60-5.2); RDW 15.9 % (11.6-15.6); WHITE BLOOD COUNT 5.2 K/mm3 (4.0-10.0)
[2018-04-30 07:08] LABS: N-TERMINAL BNP 323.2 pg/ml (5-125)
[2018-04-30 07:13] LABS: ALBUMIN 3.6 g/dl (3.4-5.0); ALK PHOS 106 U/L (45-117); ANION GAP 12 MMOL/L (8-16); BILIRUBIN,TOTAL 0.7 mg/dL (0.2-1); BLOOD UREA NITROGEN 11 mg/dL (7-18); CALCIUM 8.8 mg/dL (8.5-10.1); CHLORIDE 99 mmol/L (98-107); CO2 26 mmol/L (21-32); GLUCOSE,RANDOM 208 mg/dL (74-106); POTASSIUM 3.5 mmol/L (3.5-5.1); SGOT/AST 22 U/L (15-37); SGPT/ALT 24 U/L (13-61); SODIUM 137 mmol/L (136-145); TOT PROT 7.1 g/dl (6.4-8.2)
[2018-04-30] MEDS ORDERED: FUROSEMIDE 40 MG/4 ML INJECTABLE VIAL ONE (09:59)
[2018-04-30] MEDS: AZITHROMYCIN 250 MG TABLET PO SCH (10:00)
[2018-04-30] MEDS: FUROSEMIDE 40 MG/4 ML INJECTABLE VIAL IVPUSH SCH (10:23)
[2018-04-30] MEDS: CLOTRIMAZOLE 1% CREAM 15 GM TUBE TP SCH ×2 (10:24→21:52)
[2018-04-30] MEDS: FLUTICASONE PROP 0.05% 16 GM NASAL SPRAY NS SCH ×2 (10:24→21:52)
[2018-04-30] MEDS: MUPIROCIN 2% TOPICAL OINTMENT 22 GM TUBE TP SCH ×2 (10:24→21:52)
[2018-04-30] MEDS: POTASSIUM CHLORIDE TABS 10 MEQ TABLET.ER (FP) PO SCH ×2 (10:24→21:48)
[2018-04-30] MEDS: VERAPAMIL HCL 240 MG E.R. TABLET (FP) PO SCH (10:24)
[2018-04-30] MEDS: FOLIC ACID 1 MG TABLET (FP) PO SCH (10:25)
[2018-04-30] MEDS: BUDESONIDE/FORMETEROL FUMARATE 160/4.5 mcg INHALER IH SCH ×2 (10:25→21:53)
[2018-04-30] MEDS: CLOPIDOGREL BISULFATE 75 MG TABLET (FP) PO SCH (10:25)
[2018-04-30] MEDS: TIOTROPIUM BROMIDE 2.5 MCG (SPIRIVA) RESPIMAT INHALER IH SCH (10:25)
[2018-04-30] MEDS: RANOLAZINE E.R. 500 MG TABLET (FP) PO SCH ×2 (10:25→21:48)
[2018-04-30] MEDS: PANTOPRAZOLE 40 MG TABLET (FP) PO SCH (10:25)
[2018-04-30] MEDS: RANITIDINE HCL 150 MG TABLET (FP) PO SCH (10:25)
[2018-04-30] MEDS: ACETAMINOPHEN 325 MG TABLET (FP) PO PRN ×2 (10:26→21:48)
[2018-04-30] MEDS: MAG HYDROX/AL HYDROX/SIMETH 30 ML UNIT-DOSE CUP PO PRN (10:27)
[2018-04-30] MEDS: ALBUTEROL SO4 2.5/IPRATROPIUM 0.5 INH SOL 3 ML VIAL.NEB. NEB PRN (10:47)
--- NOTE | 2018-04-30 14:42 | HP ---
Admitting History and Physical - Primary Care Physician PCP: Casi Cohn - Admission Chief Complaint: SOB legs edema bilateral History of Present Illness: The patient is a 62 year old female with past medical history significant for CAD, HTN, [place] s/p angioplasty 2011, L. ventricular end diastolic dysfunction, PVD , asthma, COPD, Mesenteric ischemia treated with SMA bypass 2011, and Renal Failure (required temporary dialysis 2011) presents to the emergency department with shortness of breath and legs swelling. The patient saw me in the office and she had elevated BP of 170/80 and elevated heart rate 90-100 . The patient presents with 1 week of bilateral legs swelling with pain, right leg greater than left. The patient states the pain is achy in quality. The patient reports an additional complaint of shortness of breath since last night. Denies the use of o2 at home, hx of DM. Allergies: Patient reports having an adverse reaction to advil in the past. Social history: Former smoker, quit 3 years ago. Past Surgical History: Carotid Endarterectomy, Cholecystectomy. History Source: Patient Limitations to Obtaining History: No Limitations - Past Medical History Cardiovascular: Yes: CAD, HTN, [place] (2011 transferred to [facility], no stents, told of ? Prinzmetal angina? ), Other (left ventricular end diastolic dysfunction, peripheral and carotid vascular disease ) Pulmonary: Yes: Asthma, COPD Gastrointestinal: Yes: Diverticulosis, Gastritis, GERD (with short segment Barretts), Hiatal Hernia, Other (Mesenteric ischemia treated with SMA bypass 2011. Incisional hernia.) Renal/: Yes: Renal Failure (required dialysis for several weeks following contrast induced renal fauilure after DE in 2011) Heme/Onc: Yes: Anemia Psych: Yes: Anxiety, Depression Endocrine: Yes: Other (Euthyroid goiter) - Past Surgical History Past Surgical History: Yes: Carotid Endarterectomy, Cholecystectomy, Colonoscopy , Upper Endoscopy - Smoking History Smoking history: Former smoker Have you smoked in the past 12 months: Yes Aproximately how many cigarettes per day: 10 If you are a former smoker, when did you quit?: 2015 - Alcohol/Substance Use Hx Alcohol Use: No History of Substance Use: reports: None - Social History Usual Living Arrangement: Yes: With Spouse ADL: Independent 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 History of Recent Travel: No Home Medications - Allergies Allergies/Adverse Reactions: Allergies Allergy/AdvReac Type Severity Reaction Status Date / Time No Known Drug Allergies Allergy Verified 04/29/18 15:06 - Home Medications Home Medications: Ambulatory Orders Albuterol 2.5/Ipratropium 0.5 [Duoneb -] 1 neb NEB Q4H PRN #0 vial 12/27/12 Atorvastatin Calcium [Lipitor] 80 mg PO HS #0 tablet 12/27/12 Clopidogrel Bisulfate [Plavix -] 75 mg PO DAILY #0 tablet 12/27/12 Folic Acid - 1 mg PO DAILY #0 tablet 12/27/12 Furosemide [Lasix -] 20 mg PO DAILY #0 tablet 12/27/12 Isosorbide Mononitrate [Imdur] 30 mg PO BID #0 tab.sr.24h 12/27/12 Montelukast Na [Singulair -] 10 mg PO HS #0 tablet 12/27/12 Ranitidine [Zantac -] 150 mg PO DAILY #0 tablet 12/27/12 Tiotropium [place] [Spiriva] 1 inh IH DAILY #0 inh 12/27/12 Fluticasone Prop 0.05% Nasal [Flonase -] 1 - 2 spray NS BID #1 spray.pump Mag Hydrox/Al Hydrox/Simeth [Mylanta Oral Suspension -] 30 ml PO Q6H PRN #0 cup 04/16/15 Acetaminophen [Tylenol .Regular Strength -] 650 mg PO Q6H PRN #0 tablet Docusate Sodium [Colace -] 300 mg PO HS capsule 08/16/16 Nitroglycerin 0.4 mg SL AM PRN #90 tab.subl 08/16/16 Pantoprazole Sodium [Protonix -] 40 mg PO DAILY #90 tablet.ec 08/16/16 Ranolazine [Ranexa -] 500 mg PO BID #180 tab 08/16/16 Verapamil HCl ER [Calan Sr -] 240 mg PO BID #180 tablet.er 08/16/16 Potassium Chloride [K-Dur -] 10 meq PO BID 02/15/18 Azithromycin [Zithromax 250mg Tablets -] 250 mg PO DAILY #30 tablet 03/03/18 Budesonide/Formeterol Fumarate [SYMBICORT 160/4.5mcg -] 2 puff IH BID #3 inhaler 03/03/18 Guaifenesin Dm [Robitussin Dm -] 10 ml PO Q6H PRN cup 03/03/18 Sodium Chloride Nasal [place] [[place] Nasal [place] -] 2 spray NS TID spray Mupirocin Ointment [Bactroban 2% Ointment -] 1 applic TP BID #1 tube 03/13/18 Clotrimazole [Antifungal] 30 gm TP BID #1 cream..g. 03/20/18 Alprazolam [Xanax] 0 mg PO PRN PRN 04/29/18 Family Disease History - Family Disease History Family Disease History: Heart Disease: Father ( 73 of melanoma), Mother ( 73 of COPD), Brother ( of throat cancer), CA: Father, Brother, Respiratory: Mother Review of Systems - Review of Systems Constitutional: denies: Chills, Fever Eyes: denies: Double Vision, Eye Pain HENT: denies: Difficult Swallowing, Ear Pain Neck: denies: Stiffness, Tenderness Cardiovascular: reports: Edema, Shortness of Breath. denies: Chest Pain Respiratory: reports: Cough, Exercise Intolerance, SOB, SOB on Exertion, Wheezing. denies: Hemoptysis, Orthopnea, PND Gastrointestinal: denies: Abdominal Pain, Constipation, Diarrhea, Vomiting Genitourinary: denies: Dysuria, Flank Pain Musculoskeletal: reports: Back Pain (chronic), Joint Pain (feet pains) Neurological: denies: Change in LOC, Change in Speech, Confusion, Incoordination , Seizure, Syncope Endocrine: denies: Excessive Sweating Hematology/Lymphatic: denies: Easily Bruised, Excessive Bleeding Psychiatric: reports: Anxiety. denies: Altered Sleep Pattern, Suicidal Physical Examination Vital Signs: Vital Signs Temperature 97.9 F 04/30/18 14:28 Pulse Rate 89 04/30/18 14:28 Respiratory Rate 18 04/30/18 14:28 Blood Pressure 111/66 04/30/18 14:28 O2 Sat by Pulse Oximetry (%) 96 04/30/18 14:28 Constitutional: Yes: Anxious Eyes: Yes: Conjunctiva Clear HENT: Yes: Atraumatic Neck: Yes: Supple Cardiovascular: Yes: Regular Rate and Rhythm Respiratory: Yes: Rales, Rhonchi, Wheezes Gastrointestinal: Yes: Soft, Hernia (L flank). No: Tenderness Renal/: No: CVA Tenderness - Left, CVA Tenderness - Right Musculoskeletal: No: Joint Stiffness, Joint Swelling Extremities: No: Cold, Cool, Cyanosis Edema: Yes (feet edema bilateral) Peripheral Pulses WNL: Yes Integumentary: No: Rash, Venous Stasis Changes Neurological: Yes: WNL, Alert, Oriented ...Motor Strength: WNL Psychiatric: Yes: WNL, Alert, Oriented. No: Agitated, Suicidal Ideation Labs: CBC, BMP 04/30/18 06:10 04/30/18 06:10 Imaging - Results Chest X-ray: Report Reviewed Other: Report Reviewed Assessment/Plan The patient is a 62 year old female with past medical history significant for CAD, HTN, [place] s/p angioplasty 2011, L. ventricular end diastolic dysfunction, PVD , asthma, COPD, Mesenteric ischemia treated with SMA bypass 2011, and Renal Failure (required temporary dialysis 2011) presents to the emergency department with shortness of breath and legs swelling. admit cardiology and pulmonary eval IV lasix iv steroids nebs daily weight; check labs falls PFXd/w pt and staff
[2018-04-30] MEDS ORDERED: PT OWN MED DRAWER 7, Y5N ONE ×2 (15:18→21:38)
--- NOTE | 2018-04-30 16:14 | PN ---
Progress Note (short form) - Note Progress Note: Chief Complaint: Events noted, notes reviewed, increasing dyspnea with bilateral lower extremity edema, denies any chest pain, denies any orthopnea or PND History of Present Illness: Seen and examined. Full consult dictated - Current Medication List Current Medications: Active Medications Current Medications Acetaminophen (Tylenol -) 650 mg PO Q6H PRN PRN Reason: FEVER Last Admin: 04/30/18 10:26 Dose: 650 mg Al Hydroxide/Mg Hydroxide (Mylanta Oral Suspension -) 30 ml PO Q6H PRN PRN Reason: DYSPEPSIA Last Admin: 04/30/18 10:27 Dose: 30 ml Albuterol/Ipratropium (Duoneb -) 1 amp NEB Q4H PRN PRN Reason: ASTHMA Last Admin: 04/30/18 10:47 Dose: 1 amp Alprazolam (Xanax -) 0.25 mg PO Q12H PRN PRN Reason: ANXIETY Last Admin: 04/29/18 23:37 Dose: 0.25 mg Atorvastatin Calcium (Lipitor -) 80 mg PO HS [facility] Last Admin: 04/29/18 23:39 Dose: 80 mg Azithromycin (Zithromax -) 250 mg PO DAILY [facility] Last Admin: 04/30/18 10:00 Dose: 250 mg Budesonide/Formoterol Fumarate (Symbicort 160/4.5mcg -) 2 puff IH BID [facility] Last Admin: 04/30/18 10:25 Dose: Not Given Clopidogrel Bisulfate (Plavix -) 75 mg PO DAILY [facility] Last Admin: 04/30/18 10:25 Dose: 75 mg Clotrimazole (Lotrimin 1% Cream -) 1 applic TP BID [facility] Last Admin: 04/30/18 10:24 Dose: 1 applic Docusate Sodium (Colace -) 300 mg PO HS [facility] Last Admin: 04/29/18 23:38 Dose: 300 mg Fluticasone Propionate (Flonase -) 2 spray NS BID [facility] Last Admin: 04/30/18 10:24 Dose: 2 spray Folic Acid (Folic Acid -) 1 mg PO DAILY [facility] Last Admin: 04/30/18 10:25 Dose: 1 mg Furosemide (Lasix Injection -) 40 mg IVPUSH DAILY [facility] Last Admin: 04/30/18 10:23 Dose: 40 mg Guaifenesin (Robitussin Dm -) 10 ml PO Q6H PRN PRN Reason: COUGH Isosorbide Mononitrate (Imdur -) 30 mg PO BID [facility] Methylprednisolone Sodium Succinate (Solu-Medrol -) 40 mg IVPB Q6H-IV [facility] Last Admin: 04/30/18 15:20 Dose: 40 mg Montelukast Sodium (Singulair -) 10 mg PO HS [facility] Last Admin: 04/29/18 23:40 Dose: 10 mg Mupirocin (Bactroban 2% Ointment -) 1 applic TP BID [facility] Last Admin: 04/30/18 10:24 Dose: Not Given Nitroglycerin (Nitrostat -) 0.4 mg SL AM PRN PRN Reason: PAIN LEVEL 6-10 Pantoprazole Sodium (Protonix -) 40 mg PO DAILY [facility] Last Admin: 04/30/18 10:25 Dose: 40 mg Potassium Chloride (K-Dur -) 10 meq PO BID [facility] Last Admin: 04/30/18 10:24 Dose: 10 meq Ranitidine HCl (Zantac -) 150 mg PO DAILY [facility] Last Admin: 04/30/18 10:25 Dose: 150 mg Ranolazine (Ranexa -) 500 mg PO BID [facility] Last Admin: 04/30/18 10:25 Dose: 500 mg Sodium Chloride ([place] Nasal [place] -) 2 spray NS TID [facility] Last Admin: 04/30/18 15:20 Dose: 2 spray Tiotropium [place] (Spiriva Respimat) 2 puff IH DAILY [facility] Last Admin: 04/30/18 10:25 Dose: Not Given Verapamil HCl (Calan Sr -) 240 mg PO BID [facility] Last Admin: 04/30/18 10:24 Dose: 240 mg - Objective Vital Signs: Last Vital Signs Temp Pulse Resp BP Pulse Ox 97.9 F 89 18 111/66 96 04/30/18 14:28 04/30/18 14:28 04/30/18 14:28 04/30/18 14:28 04/30/18 14:28 Intake & Output 04/27/18 04/28/18 04/29/18 04/30/18 23:59 23:59 23:59 23:59 Weight 162 lb Constitutional: No Distress, Calm Neck: Supple Negative JVD Cardiovascular: S1 S2 Regular Rate and Rhythm Grade 2/6 ELADIA Respiratory: Diminished Bilaterally with Scattered Rhonchi Gastrointestinal: Soft Benign Normal Bowel Sounds Ext: Trace-1+ Edema Labs: Troponin, BNP 04/29/18 04/30/18 04/30/18 15:44 06:05 06:10 Troponin I < 0.02 < 0.02 B-Natriuretic Peptide 323.2 H CBC, BMP 04/30/18 06:10 04/30/18 06:10 Hepatic Panel Total Bilirubin 0.7 mg/dL (0.2-1) 04/30/18 06:10 AST 22 U/L (15-37) 04/30/18 06:10 ALT 24 U/L (13-61) 04/30/18 06:10 Alkaline Phosphatase 106 U/L (45-117) 04/30/18 06:10 Albumin 3.6 g/dl (3.4-5.0) 04/30/18 06:10 Assessment/Plan ASSESSMENT: 1. Clinical presentation consistent with class I-II NYHA classification LV failure and probable 2. Acute exacerbation of COPD 3. CAD post [place], angina pectoris 4. Systolic murmur, AV sclerosis rule out stenosis 5. HTN 6. Hyperlipidemia 7. Bilateral carotid artery disease post right CEA 8. Mesenteric ischemia post intervention 9. PAD post intervention 10. CKD PLAN: 1. Continue Verapamil and consider B-Blockers with caution 2. Continue Imdur and Ranexa 3. Add ACEI or ARBS unless they are contraindicated 4. Continue Lipitor 5. Continue IV Lasix 6. Continue Plavix 7. Echocardiography for evaluation of LV size and function and the above noted valvular pathology 8. Follow up with Dr. 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
[2018-04-30] MEDS: ISOSORBIDE MONONITRATE 60 MG TAB.SR.24H (FP) PO SCH (16:21)
[2018-04-30] MEDS ORDERED: FLU VACCINE QUAD 60 MCG/0.5 ML (MDV 18-19) IM ONE (16:45)
[2018-04-30] MEDS: ISOSORBIDE MONONITRATE 30 MG TAB.SR.24H (FP) PO SCH (17:06)
--- NOTE | 2018-04-30 17:08 | EKG ---
Test Reason : Blood Pressure : / mmHG Vent. Rate : 091 BPM Atrial Rate : 091 BPM P-R Int : 194 ms QRS Dur : 090 ms QT Int : 410 ms P-R-T Axes : 068 062 055 degrees QTc Int : 504 ms NORMAL SINUS RHYTHM NONSPECIFIC T WAVE ABNORMALITY PROLONGED QT ABNORMAL ECG WHEN COMPARED WITH ECG OF 01-MAR-2018 08:50, NONSPECIFIC T WAVE ABNORMALITY NOW EVIDENT IN ANTERIOR LEADS QT HAS LENGTHENED CLINICAL CORRELATION IS RECOMMENDED Confirmed by ROSENDO FRENCH MD ([id number]) on 04/30/2018 5:07:40 PM Referred By: Confirmed By:ROSENDO FRENCH MD
[2018-04-30] MEDS: ATORVASTATIN CA 80 MG TABLET (FP) PO SCH (21:47)
[2018-04-30] MEDS: MONTELUKAST NA 10 MG TABLET PO SCH (21:48)
[2018-04-30] MEDS: DOCUSATE SODIUM 100 MG CAPSULE (FP) PO SCH (21:48)
[2018-04-30] MEDS: oxyCODONE HCL 5 MG TABLET PO PRN (21:49)
--- NOTE | 2018-04-30 21:50 | CONS ---
DATE OF CONSULTATION: 04/30/2018 CONSULTATION REQUESTED BY: Casi Cohn MD CHIEF COMPLAINT: Dyspnea, increasing bilateral lower extremity edema. Patient known to our service from prior hospitalizations; a 62-year-old female with known history of coronary artery disease, status post myocardial infarction, angina pectoris, diastolic left ventricular dysfunction with chronic Class 1 Menard Heart Association Classification left ventricular failure, hypertensive cardiovascular disease, hypercholesterolemia, carotid stenosis, post carotid endarterectomy, mesenteric ischemia, post intervention, peripheral vascular disease, advanced chronic obstructive pulmonary disease who presented to [facility] with increasing dyspnea, which has been noted over the last several days, with increasing bilateral lower extremity edema. Dyspnea has been noted with mild to moderate physical exertion and edema worsens in the latter part of the day. The patient denied any orthopnea or paroxysmal nocturnal dyspnea. Patient denied any palpitations, dizziness, lightheadedness. The patient reported fatigue and tiredness. Patient recently developed an allergic reaction to one of her medications; she is unclear which one, most likely an inhaler. PAST MEDICAL HISTORY: Coronary artery disease, post myocardial infarction, angina pectoris, diastolic left ventricular dysfunction with Class 1 Menard Heart Association Classification left ventricular failure, hypertensive cardiovascular disease, hypercholesterolemia, carotid stenosis, post carotid endarterectomy, mesenteric ischemia, post intervention, peripheral vascular disease, chronic obstructive pulmonary disease, chronic kidney disease, hiatal hernia. SOCIAL HISTORY: Prior history of tobacco abuse. FAMILY HISTORY: Positive for coronary artery disease. ALLERGIES: None reported. MEDICAL THERAPY: Currently includes acetaminophen 650 mg every 6 hours as needed; Mylanta 30 mL every 6 hours as needed; DuoNeb nebulizer; Xanax 0.25 mg every 12 hours as needed; Lipitor 80 mg once a day; Zithromax 250 mg once a day; Symbicort 2 puffs twice a day; Plavix 75 mg once a day; Colace 300 mg once a day; Flonase 2 sprays twice a day; folic acid 1 mg once a day; Lasix 40 mg IV push once daily; Robitussin 10 mL every 6 hours as needed; Imdur 30 mg twice a day; Solu-Medrol 40 mg IV every 6 hours; Singulair 10 mg once a day; nitroglycerin as needed; Protonix 40 mg once a day; potassium 10 mEq twice a day; Zantac 150 mg once a day; Ranexa 500 mg twice a day; Spiriva 2 puffs once daily; verapamil 240 mg twice a day. REVIEW OF SYSTEMS: Head/Neck: Patient denies headache, photophobia, blurring of vision. Respiratory: Cough not productive of sputum. Cardiovascular: As noted above. Gastrointestinal: No nausea, vomiting, diarrhea, abdominal discomfort. Genitourinary: No symptoms reported. Musculoskeletal: No symptoms reported. PHYSICAL EXAMINATION: Vital Signs: Blood pressure 111/66 mmHg, pulse rate is 89 beats/min. Head/Neck: Pupils equal and reactive to light and accommodation. Extraocular muscles are intact. Anicteric sclerae. Negative JVD. Bilateral carotid bruit. Chest: Bilateral scattered rhonchi, diminished breath sounds at the bases bilaterally. Cardiovascular: S1, S2 regular. Grade 2/6 systolic ejection murmur. Abdomen: Soft, benign. Active bowel sounds. Extremities: Trace to 1+ bilateral edema, decreased distal pulses. No calf tenderness. ELECTROCARDIOGRAM: Not available in the chart. Troponin-I less than 0.02. B-type natriuretic peptide was 323.2. CBC revealed a white cell count of 5.3, hemoglobin 12.6, platelet count 287. Basic metabolic profile revealed a sodium of 137, potassium 3.5, BUN 11, creatinine 1.0, glucose 208. ASSESSMENT: 1. Clinical presentation is consistent with Class 1 to 2 Menard Heart Association Classification left ventricular failure related to diastolic left ventricular dysfunction and probable number 2. 2. Acute exacerbation of chronic obstructive pulmonary disease. 3. Coronary artery disease, post myocardial infarction. 4. Angina pectoris. 5. Systolic murmur related to aortic valve sclerosis, rule out aortic valve stenosis. 6. Hypertension. 7. Hypercholesterolemia. 8. Bilateral carotid artery disease, post right carotid endarterectomy. 9. History of mesenteric ischemia, post intervention. 10. Peripheral vascular disease, post intervention. 11. History of chronic kidney disease. RECOMMENDATIONS: 1. Continuation of verapamil and consideration for initiation of beta hussain therapy with caution. 2. Continuation of Imdur and Ranexa. 3. Addition of SONNY inhibitor or angiotensin receptor hussain therapy unless they are contraindicated. 4. Continuation of Lipitor. 5. Continuation of IV Lasix. 6. Continuation of Plavix. 7. Echocardiography for evaluation of left ventricular size and function and the above-noted valvular pathology. 8. Patient is to follow up with Dr. Luis Eduardo Manning after her discharge. 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 Thank you for the kind referral. ROSENDO FRENCH M.D. [id number]
[2018-04-30] MEDS: ALPRAZolam 0.25 MG TABLET PO PRN (23:22)
[2018-05-01] MEDS: methylPREDNISolone NA SUCC 125 MG/2 ML VIAL IVPB SCH ×4 (02:14→21:37)
[2018-05-01] MEDS: SODIUM CHLORIDE NASAL SPRAY 44 ML BOTTLE NS SCH ×3 (06:28→21:32)
[2018-05-01] MEDS ORDERED: PT OWN MED DRAWER 7, Y5N ONE ×4 (09:38→21:30)
[2018-05-01] MEDS: MUPIROCIN 2% TOPICAL OINTMENT 22 GM TUBE TP SCH ×2 (09:50→21:24)
[2018-05-01] MEDS: BUDESONIDE/FORMETEROL FUMARATE 160/4.5 mcg INHALER IH SCH ×2 (09:51→21:25)
[2018-05-01] MEDS: TIOTROPIUM BROMIDE 2.5 MCG (SPIRIVA) RESPIMAT INHALER IH SCH ×2 (09:51→12:08)
[2018-05-01] MEDS: CLOTRIMAZOLE 1% CREAM 15 GM TUBE TP SCH ×2 (09:51→21:25)
[2018-05-01] MEDS: RANITIDINE HCL 150 MG TABLET (FP) PO SCH (09:52)
[2018-05-01] MEDS: FOLIC ACID 1 MG TABLET (FP) PO SCH (09:52)
[2018-05-01] MEDS: FLUTICASONE PROP 0.05% 16 GM NASAL SPRAY NS SCH ×2 (09:52→21:32)
[2018-05-01] MEDS: NEBIVOLOL 5 MG TABLET (FP) PO SCH (09:52)
[2018-05-01] MEDS: AZITHROMYCIN 250 MG TABLET PO SCH (09:52)
[2018-05-01] MEDS: FUROSEMIDE 40 MG/4 ML INJECTABLE VIAL IVPUSH SCH (09:52)
[2018-05-01] MEDS: POTASSIUM CHLORIDE TABS 10 MEQ TABLET.ER (FP) PO SCH ×2 (09:53→21:32)
[2018-05-01] MEDS: ISOSORBIDE MONONITRATE 30 MG TAB.SR.24H (FP) PO SCH (09:53)
[2018-05-01] MEDS: VALSARTAN 40 MG TABLET (FP) PO SCH (09:53)
[2018-05-01] MEDS: PANTOPRAZOLE 40 MG TABLET (FP) PO SCH (09:53)
[2018-05-01] MEDS: RANOLAZINE E.R. 500 MG TABLET (FP) PO SCH ×2 (09:53→21:32)
[2018-05-01] MEDS: CLOPIDOGREL BISULFATE 75 MG TABLET (FP) PO SCH (09:53)
--- NOTE | 2018-05-01 09:55 | PN ---
Progress Note, Physician Chief Complaint: feels a little better diuresed, less feet pains, less SOB noticed some blurred vision with R eye - said she had it for months but getting worse; has h/o cataracts - Current Medication List Current Medications: Active Medications Acetaminophen (Tylenol -) 650 mg PO Q6H PRN PRN Reason: FEVER Last Admin: 04/30/18 10:26 Dose: 650 mg Acetaminophen (Tylenol -) 325 mg PO Q8H PRN PRN Reason: PAIN LEVEL 7 - 10 Last Admin: 04/30/18 21:48 Dose: 325 mg Al Hydroxide/Mg Hydroxide (Mylanta Oral Suspension -) 30 ml PO Q6H PRN PRN Reason: DYSPEPSIA Last Admin: 04/30/18 10:27 Dose: 30 ml Albuterol/Ipratropium (Duoneb -) 1 amp NEB Q4H PRN PRN Reason: ASTHMA Last Admin: 04/30/18 10:47 Dose: 1 amp Alprazolam (Xanax -) 0.25 mg PO Q12H PRN PRN Reason: ANXIETY Last Admin: 04/30/18 23:22 Dose: 0.25 mg Atorvastatin Calcium (Lipitor -) 80 mg PO [facility] Last Admin: 04/30/18 21:47 Dose: 80 mg Azithromycin (Zithromax -) 250 mg PO DAILY [facility] Last Admin: 05/01/18 09:52 Dose: 250 mg Budesonide/Formoterol Fumarate (Symbicort 160/4.5mcg -) 2 puff IH BID [facility] Last Admin: 05/01/18 09:51 Dose: Not Given Clopidogrel Bisulfate (Plavix -) 75 mg PO DAILY [facility] Last Admin: 05/01/18 09:53 Dose: 75 mg Clotrimazole (Lotrimin 1% Cream -) 1 applic TP BID [facility] Last Admin: 05/01/18 09:51 Dose: Not Given Docusate Sodium (Colace -) 300 mg PO [facility] Last Admin: 04/30/18 21:48 Dose: 300 mg Fluticasone Propionate (Flonase -) 2 spray NS BID [facility] Last Admin: 05/01/18 09:52 Dose: 2 spray Folic Acid (Folic Acid -) 1 mg PO DAILY [facility] Last Admin: 05/01/18 09:52 Dose: 1 mg Furosemide (Lasix Injection -) 40 mg IVPUSH DAILY [facility] Last Admin: 05/01/18 09:52 Dose: 40 mg Guaifenesin (Robitussin Dm -) 10 ml PO Q6H PRN PRN Reason: COUGH Isosorbide Mononitrate (Imdur -) 30 mg PO DAILY [facility] Last Admin: 05/01/18 09:53 Dose: 30 mg Methylprednisolone Sodium Succinate (Solu-Medrol -) 40 mg IVPB Q6H-IV [facility] Last Admin: 05/01/18 09:53 Dose: 40 mg Montelukast Sodium (Singulair -) 10 mg PO HS [facility] Last Admin: 04/30/18 21:48 Dose: 10 mg Mupirocin (Bactroban 2% Ointment -) 1 applic TP BID [facility] Last Admin: 05/01/18 09:50 Dose: Not Given Nebivolol (Bystolic -) 5 mg PO DAILY [facility] Last Admin: 05/01/18 09:52 Dose: 5 mg Nitroglycerin (Nitrostat -) 0.4 mg SL AM PRN PRN Reason: PAIN LEVEL 6-10 Oxycodone HCl (Roxicodone -) 5 mg PO Q8H PRN PRN Reason: PAIN LEVEL 7 - 10 Last Admin: 04/30/18 21:49 Dose: 5 mg Pantoprazole Sodium (Protonix -) 40 mg PO DAILY [facility] Last Admin: 05/01/18 09:53 Dose: 40 mg Potassium Chloride (K-Dur -) 10 meq PO BID [facility] Last Admin: 05/01/18 09:53 Dose: 10 meq Ranitidine HCl (Zantac -) 150 mg PO DAILY [facility] Last Admin: 05/01/18 09:52 Dose: 150 mg Ranolazine (Ranexa -) 500 mg PO BID [facility] Last Admin: 05/01/18 09:53 Dose: 500 mg Sodium Chloride ([place] Nasal [place] -) 2 spray NS TID [facility] Last Admin: 05/01/18 06:28 Dose: 2 spray Tiotropium [place] (Spiriva Respimat) 2 puff IH DAILY [facility] Last Admin: 05/01/18 09:51 Dose: Not Given Valsartan (Diovan -) 40 mg PO DAILY [facility] Last Admin: 05/01/18 09:53 Dose: 40 mg Verapamil HCl (Calan Sr -) 240 mg PO DAILY [facility] Last Admin: 05/01/18 09:53 Dose: 240 mg - Objective Vital Signs: Vital Signs Temperature 98.1 F 05/01/18 06:00 Pulse Rate 69 05/01/18 06:00 Respiratory Rate 20 05/01/18 06:00 Blood Pressure 93/58 L 05/01/18 06:00 O2 Sat by Pulse Oximetry (%) 97 04/30/18 21:00 Constitutional: Yes: No Distress, Calm Eyes: Yes: Conjunctiva Clear HENT: Yes: Atraumatic Neck: Yes: Supple Cardiovascular: Yes: Regular Rate and Rhythm Respiratory: Yes: Rales, Wheezes Gastrointestinal: Yes: Soft. No: Tenderness Genitourinary: No: CVA Tenderness - Left, CVA Tenderness - Right Musculoskeletal: No: Joint Stiffness, Joint Swelling Extremities: No: Cold, Cool, Cyanosis Edema: Yes (less ) Integumentary: No: Rash, Venous Stasis Changes Neurological: Yes: WNL, Alert, Oriented ...Motor Strength: WNL Psychiatric: Yes: WNL, Alert, Oriented. No: Agitated, Suicidal Ideation Labs: CBC, BMP 04/30/18 06:10 04/30/18 06:10 INR, PTT INR Cancelled 04/29/18 15:44 - ....Imaging Other: Report Reviewed Assessment/Plan The patient is a 62 year old female with past medical history significant for CAD, HTN, PR s/p angioplasty 2011, L. ventricular end diastolic dysfunction, PVD , asthma, COPD, Mesenteric ischemia treated with SMA bypass 2011, and Renal Failure (required temporary dialysis 2011) presents to the emergency department with shortness of breath and legs swelling. admit cardiology and pulmonary f/u neurology and eye dr tiffany [place] eye blurred vision - h/o cataracts but given vasculopathy would r/o central cause IV lasix iv steroids nebs daily weight; check labs tests and consults reviewed with pt falls PFXd/w pt and staff
[2018-05-01] MEDS ORDERED: VERAPAMIL HCL 240 MG E.R. TABLET (FP) PO SCH ×2 (10:00→22:00)
[2018-05-01] MEDS: ALBUTEROL SO4 2.5/IPRATROPIUM 0.5 INH SOL 3 ML VIAL.NEB. NEB PRN ×2 (11:00→15:08)
--- NOTE | 2018-05-01 12:15 | PN ---
Progress Note (short form) - Note Progress Note: Chief Complaint: Events noted, notes reviewed, dyspnea and bilateral lower extremity edema severity has decreased, reported chest pain last night, thus far has declined her inhalers related to a recent untoward effect History of Present Illness: Seen and examined. Events noted, notes reviewed, dyspnea and bilateral lower extremity edema severity has decreased, reported chest pain last night, thus far has declined her inhalers related to a recent untoward effect Requesting Imdur and Verapamil to be administered twice daily, advised that nitrate free interval is needed - Current Medication List Current Medications: Active Medications Current Medications Acetaminophen (Tylenol -) 650 mg PO Q6H PRN PRN Reason: FEVER Last Admin: 04/30/18 10:26 Dose: 650 mg Acetaminophen (Tylenol -) 325 mg PO Q8H PRN PRN Reason: PAIN LEVEL 7 - 10 Last Admin: 04/30/18 21:48 Dose: 325 mg Al Hydroxide/Mg Hydroxide (Mylanta Oral Suspension -) 30 ml PO Q6H PRN PRN Reason: DYSPEPSIA Last Admin: 04/30/18 10:27 Dose: 30 ml Albuterol/Ipratropium (Duoneb -) 1 amp NEB Q4H PRN PRN Reason: ASTHMA Last Admin: 04/30/18 10:47 Dose: 1 amp Alprazolam (Xanax -) 0.25 mg PO Q12H PRN PRN Reason: ANXIETY Last Admin: 04/30/18 23:22 Dose: 0.25 mg Atorvastatin Calcium (Lipitor -) 80 mg PO [facility] Last Admin: 04/30/18 21:47 Dose: 80 mg Azithromycin (Zithromax -) 250 mg PO DAILY [facility] Last Admin: 05/01/18 09:52 Dose: 250 mg Budesonide/Formoterol Fumarate (Symbicort 160/4.5mcg -) 2 puff IH BID [facility] Last Admin: 05/01/18 09:51 Dose: Not Given Clopidogrel Bisulfate (Plavix -) 75 mg PO DAILY [facility] Last Admin: 05/01/18 09:53 Dose: 75 mg Clotrimazole (Lotrimin 1% Cream -) 1 applic TP BID [facility] Last Admin: 05/01/18 09:51 Dose: Not Given Docusate Sodium (Colace -) 300 mg PO [facility] Last Admin: 04/30/18 21:48 Dose: 300 mg Fluticasone Propionate (Flonase -) 2 spray NS BID [facility] Last Admin: 05/01/18 09:52 Dose: 2 spray Folic Acid (Folic Acid -) 1 mg PO DAILY [facility] Last Admin: 05/01/18 09:52 Dose: 1 mg Furosemide (Lasix Injection -) 40 mg IVPUSH DAILY [facility] Last Admin: 05/01/18 09:52 Dose: 40 mg Guaifenesin (Robitussin Dm -) 10 ml PO Q6H PRN PRN Reason: COUGH Insulin Aspart (Novolog Vial Sliding Scale -) 1 vial SQ ACHS [facility]; Protocol Isosorbide Mononitrate (Imdur -) 30 mg PO DAILY [facility] Last Admin: 05/01/18 09:53 Dose: 30 mg Methylprednisolone Sodium Succinate (Solu-Medrol -) 40 mg IVPB Q6H-IV [facility] Last Admin: 05/01/18 09:53 Dose: 40 mg Montelukast Sodium (Singulair -) 10 mg PO HS [facility] Last Admin: 04/30/18 21:48 Dose: 10 mg Mupirocin (Bactroban 2% Ointment -) 1 applic TP BID [facility] Last Admin: 05/01/18 09:50 Dose: Not Given Nebivolol (Bystolic -) 5 mg PO DAILY [facility] Last Admin: 05/01/18 09:52 Dose: 5 mg Nitroglycerin (Nitrostat -) 0.4 mg SL AM PRN PRN Reason: PAIN LEVEL 6-10 Oxycodone HCl (Roxicodone -) 5 mg PO Q8H PRN PRN Reason: PAIN LEVEL 7 - 10 Last Admin: 04/30/18 21:49 Dose: 5 mg Pantoprazole Sodium (Protonix -) 40 mg PO DAILY [facility] Last Admin: 05/01/18 09:53 Dose: 40 mg Potassium Chloride (K-Dur -) 10 meq PO BID [facility] Last Admin: 05/01/18 09:53 Dose: 10 meq Ranitidine HCl (Zantac -) 150 mg PO DAILY [facility] Last Admin: 05/01/18 09:52 Dose: 150 mg Ranolazine (Ranexa -) 500 mg PO BID [facility] Last Admin: 05/01/18 09:53 Dose: 500 mg Sodium Chloride ([place] Nasal [place] -) 2 spray NS TID [facility] Last Admin: 05/01/18 06:28 Dose: 2 spray Tiotropium [place] (Spiriva Respimat) 2 puff IH DAILY [facility] Last Admin: 04/30/18 10:25 Dose: Not Given Valsartan (Diovan -) 40 mg PO DAILY [facility] Last Admin: 05/01/18 09:53 Dose: 40 mg Verapamil HCl (Calan Sr -) 240 mg PO BID [facility] - Objective Vital Signs: Last Vital Signs Temp Pulse Resp BP Pulse Ox 98.1 F 69 20 93/58 L 97 05/01/18 06:00 05/01/18 06:00 05/01/18 06:00 05/01/18 06:00 04/30/18 21:00 Intake & Output 04/28/18 04/29/18 04/30/18 05/01/18 23:59 23:59 23:59 23:59 Weight 162 lb 163 lb 166 lb 3.2 oz Constitutional: No Distress, Calm Neck: Supple Negative JVD Cardiovascular: S1 S2 Regular Rate and Rhythm Grade 2/6 ELADIA Respiratory: Diminished Bilaterally with Scattered Rhonchi Gastrointestinal: Soft Benign Normal Bowel Sounds Ext: Trace Edema Labs: CBC, BMP 04/30/18 06:10 04/30/18 06:10 Hepatic Panel Total Bilirubin 0.7 mg/dL (0.2-1) 04/30/18 06:10 AST 22 U/L (15-37) 04/30/18 06:10 ALT 24 U/L (13-61) 04/30/18 06:10 Alkaline Phosphatase 106 U/L (45-117) 04/30/18 06:10 Albumin 3.6 g/dl (3.4-5.0) 04/30/18 06:10 Assessment/Plan ASSESSMENT: 1. Clinical presentation consistent with class I-II NYHA classification LV failure (resolving) and probable 2. Acute exacerbation of COPD, persistent wheeze/rhonchi 3. CAD post DE, angina pectoris 4. Systolic murmur, AV sclerosis rule out stenosis 5. HTN 6. Hyperlipidemia 7. Bilateral carotid artery disease post right CEA 8. Mesenteric ischemia post intervention 9. PAD post intervention 10. CKD PLAN: 1. Continue Verapamil with caution (consider decreasing dosage if hypotension persists) 2. Continue Bystolic with caution 3. Continue Imdur and Ranexa 4. Continue Diovan unless contraindicated with close monitoring or renal function 5. Continue Lipitor 6. Continue IV Lasix 7. Continue Plavix 8. Echocardiography for evaluation of LV size and function and the above noted valvular pathology 9. Follow up with Dr. Luis Eduardo Manning post D/C, patient's strategic partnership representative Iva Strange MD
--- NOTE | 2018-05-01 13:24 | CON.PULM ---
Consult Consult Specialty:: PULMONARY Referred by:: JUDE Reason for Consultation:: SOB - History of Present Illness Chief Complaint: SOB History of Present Illness: Patient is a 62 year old female with underlying history of CAD, [place], diastolic LV dysfunction with chronic class I NYHA classification heart failure, carotid artery disease s/p right CEA, mesenteric ischemia, post bypass surgery, peripheral vascular disease, HTN, hypercholesterolemia, advanced COPD who presents with SOB. Patient also complained of productive cough with yellow sputum. She denies fever or chills. She denies palpitations but complains of chest tightness with cough. She denies nausea, vomiting, diarrhea or abdominal pain. She states that she had bilateral lower ext edema with pain on day of admission. Recent h/o laryngospasm after regurgitating an advil back in February. 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 Prinzmetal angina? ), Other (left ventricular end diastolic dysfunction, peripheral and carotid vascular disease ). No: AFIB Pulmonary: Yes: Asthma, COPD Gastrointestinal: Yes: Diverticulosis, Gastritis, GERD (with short segment Barretts), Hiatal Hernia, Other (Mesenteric ischemia treated with SMA bypass 2011. Incisional hernia.) Renal/: Yes: Renal Failure (required dialysis for several weeks following contrast induced renal fauilure after [place] in 2011) Psych: Yes: Anxiety, Depression Endocrine: Yes: Other (Euthyroid goiter) - Past Surgical History Past Surgical History: Yes: Carotid Endarterectomy, Cholecystectomy, Colonoscopy , Upper Endoscopy - Alcohol/Substance Use Hx Alcohol Use: No History of Substance Use: reports: None - Smoking History Smoking history: Former smoker Have you smoked in the past 12 months: Yes Aproximately how many cigarettes per day: 10 If you are a former smoker, when did you quit?: 2013 - Social History Usual Living Arrangement: With Spouse ADL: Independent 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 History of Recent Travel: No Home Medications - Allergies Allergies/Adverse Reactions: Allergies Allergy/AdvReac Type Severity Reaction Status Date / Time No Known Drug Allergies Allergy Verified 04/29/18 15:06 - Home Medications Home Medications: Ambulatory Orders Albuterol 2.5/Ipratropium 0.5 [Duoneb -] 1 neb NEB Q4H PRN #0 vial 12/27/12 Atorvastatin Calcium [Lipitor] 80 mg PO HS #0 tablet 12/27/12 Clopidogrel Bisulfate [Plavix -] 75 mg PO DAILY #0 tablet 12/27/12 Folic Acid - 1 mg PO DAILY #0 tablet 12/27/12 Furosemide [Lasix -] 20 mg PO DAILY #0 tablet 12/27/12 Isosorbide Mononitrate [Imdur] 30 mg PO BID #0 tab.sr.24h 12/27/12 Montelukast Na [Singulair -] 10 mg PO HS #0 tablet 12/27/12 Ranitidine [Zantac -] 150 mg PO DAILY #0 tablet 12/27/12 Tiotropium [place] [Spiriva] 1 inh IH DAILY #0 inh 12/27/12 Fluticasone Prop 0.05% Nasal [Flonase -] 1 - 2 spray NS BID #1 spray.pump Mag Hydrox/Al Hydrox/Simeth [Mylanta Oral Suspension -] 30 ml PO Q6H PRN #0 cup 04/16/15 Acetaminophen [Tylenol .Regular Strength -] 650 mg PO Q6H PRN #0 tablet Docusate Sodium [Colace -] 300 mg PO HS capsule 08/16/16 Nitroglycerin 0.4 mg SL AM PRN #90 tab.subl 08/16/16 Pantoprazole Sodium [Protonix -] 40 mg PO DAILY #90 tablet.ec 08/16/16 Ranolazine [Ranexa -] 500 mg PO BID #180 tab 08/16/16 Verapamil HCl ER [Calan Sr -] 240 mg PO BID #180 tablet.er 08/16/16 Potassium Chloride [K-Dur -] 10 meq PO BID 02/15/18 Azithromycin [Zithromax 250mg Tablets -] 250 mg PO DAILY #30 tablet 03/03/18 Budesonide/Formeterol Fumarate [SYMBICORT 160/4.5mcg -] 2 puff IH BID #3 inhaler 03/03/18 Guaifenesin Dm [Robitussin Dm -] 10 ml PO Q6H PRN cup 03/03/18 Sodium Chloride Nasal [place] [[place] Nasal [place] -] 2 spray NS TID spray Mupirocin Ointment [Bactroban 2% Ointment -] 1 applic TP BID #1 tube 03/13/18 Clotrimazole [Antifungal] 30 gm TP BID #1 cream..g. 03/20/18 Alprazolam [Xanax] 0 mg PO PRN PRN 04/29/18 Family Disease History - Family Disease History Family Disease History: Heart Disease: Father ( 73 of melanoma), Mother ( 73 of COPD), Brother ( of throat cancer), CA: Father, Brother, Respiratory: Mother Review of Systems - Review of Systems Constitutional: denies: Fever Eyes: denies: Blurred Vision HENT: denies: Difficult Swallowing Neck: denies: Decreased ROM Cardiovascular: denies: Chest Pain Respiratory: reports: Exercise Intolerance, SOB on Exertion, Wheezing. denies: Hemoptysis Gastrointestinal: denies: Abdominal Pain Genitourinary: reports: No Symptoms Breasts: reports: No Symptoms Reported Musculoskeletal: reports: Extremity Pain Integumentary: reports: No Symptoms Neurological: reports: No Symptoms Physical Exam Vital Sings: Vital Signs Temperature 98.1 F 05/01/18 06:00 Pulse Rate 69 05/01/18 06:00 Respiratory Rate 20 05/01/18 06:00 Blood Pressure 93/58 L 05/01/18 06:00 O2 Sat by Pulse Oximetry (%) 97 04/30/18 21:00 Constitutional: Yes: Calm Eyes: Yes: EOM Intact HENT: Yes: Normocephalic Neck: Yes: Trachea Midline Cardiovascular: Yes: Regular Rate and Rhythm Respiratory: Yes: Diminished Gastrointestinal: Yes: Normal Bowel Sounds Edema: LLE: 1+, RLE: 1+ Neurological: Yes: Alert Labs: CBC, BMP 04/30/18 06:10 04/30/18 06:10 rest reviewed Imaging - Results Chest X-ray: Report Reviewed, Image Reviewed Ultrasound: Report Reviewed Problem List - Problems (1) COPD (chronic obstructive pulmonary disease) Code(s): J44.9 - CHRONIC OBSTRUCTIVE PULMONARY DISEASE, UNSPECIFIED (2) Shortness of breath Code(s): R06.02 - SHORTNESS OF BREATH (3) ASHD (arteriosclerotic heart disease) Code(s): I25.10 - ATHSCL HEART DISEASE OF [place] CORONARY ARTERY W/O ANG PCTRS (4) COPD exacerbation Code(s): J44.1 - CHRONIC OBSTRUCTIVE PULMONARY DISEASE W (ACUTE) EXACERBATION (5) Coronary artery disease Code(s): I25.10 - ATHSCL HEART DISEASE OF [place] CORONARY ARTERY W/O ANG PCTRS Qualifiers: Coronary Disease-Associated Artery/Lesion type: [place] artery [place] vs. transplanted heart: [place] heart Associated angina: without angina Qualified Code(s): I25.10 - Atherosclerotic heart disease of [place] coronary artery without angina pectoris (6) HTN (hypertension) Code(s): I10 - ESSENTIAL (PRIMARY) HYPERTENSION Qualifiers: Hypertension type: essential hypertension Qualified Code(s): I10 - Essential (primary) hypertension (7) History of myocardial infarction Code(s): I25.2 - OLD MYOCARDIAL INFARCTION (8) Hyperlipidemia Code(s): E78.5 - HYPERLIPIDEMIA, UNSPECIFIED Qualifiers: Hyperlipidemia type: pure hypercholesterolemia Qualified Code(s): E78.00 - Pure hypercholesterolemia, unspecified; E78.0 - Pure hypercholesterolemia Assessment/Plan COVERING FOR DR. WHITE LIKELY MILD A/E COPD LOWER EXT EDEMA IS NOW RESOLVED CONTINUE INHALERS/O2 SUPPLEMENTATION DAILY PEAK FLOW WOULD TAPER STEROIDS CARDIO F/U R JAIME MCCARTNEY
[2018-05-01] MEDS: oxyCODONE HCL 5 MG TABLET PO PRN (16:44)
[2018-05-01] MEDS: ACETAMINOPHEN 325 MG TABLET (FP) PO PRN (16:44)
[2018-05-01] MEDS ORDERED: INSULIN (NOVOLOG) ASPART 100 UNITS/ML 10ML VIAL ONE (17:06)
[2018-05-01] MEDS: INSULIN SLIDING SCALE (NOVOLOG) 1 VIAL SQ SCH ×2 (17:09→21:33)
[2018-05-01] MEDS: ALPRAZolam 0.25 MG TABLET PO PRN (21:32)
[2018-05-01] MEDS: ATORVASTATIN CA 80 MG TABLET (FP) PO SCH (21:32)
[2018-05-01] MEDS: VERAPAMIL HCL 240 MG E.R. TABLET (FP) PO SCH (21:32)
[2018-05-01] MEDS: DOCUSATE SODIUM 100 MG CAPSULE (FP) PO SCH (21:36)
[2018-05-01] MEDS: MONTELUKAST NA 10 MG TABLET PO SCH (21:36)
[2018-05-02] MEDS: oxyCODONE HCL 5 MG TABLET PO PRN ×2 (01:31→16:38)
[2018-05-02] MEDS: ACETAMINOPHEN 325 MG TABLET (FP) PO PRN ×2 (01:32→16:41)
[2018-05-02] MEDS: MAG HYDROX/AL HYDROX/SIMETH 30 ML UNIT-DOSE CUP PO PRN (01:36)
[2018-05-02] MEDS: methylPREDNISolone NA SUCC 125 MG/2 ML VIAL IVPB SCH ×4 (02:20→21:22)
[2018-05-02] MEDS: SODIUM CHLORIDE NASAL SPRAY 44 ML BOTTLE NS SCH ×3 (05:48→21:23)
[2018-05-02] MEDS: AZITHROMYCIN 250 MG TABLET PO SCH (05:48)
[2018-05-02] MEDS ORDERED: PT OWN MED DRAWER 7, Y5N ONE ×2 (05:55→17:04)
[2018-05-02] MEDS: INSULIN SLIDING SCALE (NOVOLOG) 1 VIAL SQ SCH ×4 (06:09→21:47)
[2018-05-02 07:57] LABS: BASO % 0.1 % (0-2.0); HEMATOCRIT 35.8 % (32.4-45.2); HEMOGLOBIN 11.8 GM/dL (10.7-15.3); LYMPH % 6.1 % (8-40); MCH 29.8 pg (25.7-33.7); MCHC 32.9 g/dl (32.0-36.0); MEAN CELL VOLUME 90.5 fl (80-96); MEAN PLT VOLUME 6.8 fl (7.5-11.1); MONO % 1.8 % (3.8-10.2); PLATELET COUNT 281 K/MM3 (134-434); RBC 3.96 M/mm3 (3.60-5.2); RDW 15.6 % (11.6-15.6); WHITE BLOOD COUNT 11.1 K/mm3 (4.0-10.0)
[2018-05-02 08:44] LABS: ANION GAP 5 MMOL/L (8-16); BLOOD UREA NITROGEN 25 mg/dL (7-18); CHLORIDE 105 mmol/L (98-107); CO2 29 mmol/L (21-32); CREATININE 0.7 mg/dL (0.55-1.3); GLUCOSE,RANDOM 143 mg/dL (74-106); POTASSIUM 4.2 mmol/L (3.5-5.1); SODIUM 139 mmol/L (136-145)
[2018-05-02] MEDS: ALBUTEROL SO4 2.5/IPRATROPIUM 0.5 INH SOL 3 ML VIAL.NEB. NEB SCH ×4 (08:50→20:35)
[2018-05-02 10:07] LABS: ANISOCYTOSIS 1+; MACROCYTOSIS 1+; PLATELET ESTIMATE NORMAL
[2018-05-02] MEDS: RANOLAZINE E.R. 500 MG TABLET (FP) PO SCH ×2 (10:08→21:33)
[2018-05-02] MEDS: ISOSORBIDE MONONITRATE 30 MG TAB.SR.24H (FP) PO SCH (10:09)
[2018-05-02] MEDS: PANTOPRAZOLE 40 MG TABLET (FP) PO SCH (10:09)
[2018-05-02] MEDS: VALSARTAN 40 MG TABLET (FP) PO SCH (10:09)
[2018-05-02] MEDS: VERAPAMIL HCL 240 MG E.R. TABLET (FP) PO SCH ×2 (10:09→21:24)
[2018-05-02] MEDS: POTASSIUM CHLORIDE TABS 10 MEQ TABLET.ER (FP) PO SCH ×2 (10:09→21:25)
[2018-05-02] MEDS: CLOPIDOGREL BISULFATE 75 MG TABLET (FP) PO SCH (10:09)
[2018-05-02] MEDS: FUROSEMIDE 40 MG/4 ML INJECTABLE VIAL IVPUSH SCH (10:09)
[2018-05-02] MEDS: FOLIC ACID 1 MG TABLET (FP) PO SCH (10:09)
[2018-05-02] MEDS: RANITIDINE HCL 150 MG TABLET (FP) PO SCH (10:09)
--- NOTE | 2018-05-02 10:09 | PN ---
Progress Note (short form) - Note Progress Note: PULMONARY Breathing about the same. Feels very dry. +dry cough and wheezing. Vital Signs Period Temp Pulse Resp BP Sys/Mann Pulse Ox Last 24 Hr 97.4 F-98 F 55-80 20-22 103-126/44-63 97 Gen: NAD at rest Heart: RRR Lung: distant breath sounds, scattered wheeze Abd: soft, nontender Ext: distal edema CBC, BMP 05/02/18 07:30 05/02/18 07:30 Active Medications Acetaminophen (Tylenol -) 650 mg PO Q6H PRN PRN Reason: FEVER Last Admin: 04/30/18 10:26 Dose: 650 mg Acetaminophen (Tylenol -) 325 mg PO Q8H PRN PRN Reason: PAIN LEVEL 7 - 10 Last Admin: 05/02/18 01:32 Dose: 325 mg Al Hydroxide/Mg Hydroxide (Mylanta Oral Suspension -) 30 ml PO Q6H PRN PRN Reason: DYSPEPSIA Last Admin: 05/02/18 01:36 Dose: 30 ml Albuterol/Ipratropium (Duoneb -) 1 amp NEB Q4H PRN PRN Reason: ASTHMA Last Admin: 05/01/18 15:08 Dose: 1 amp Alprazolam (Xanax -) 0.25 mg PO Q12H PRN PRN Reason: ANXIETY Last Admin: 05/01/18 21:32 Dose: 0.25 mg Atorvastatin Calcium (Lipitor -) 80 mg PO [facility] Last Admin: 05/01/18 21:32 Dose: 80 mg Azithromycin (Zithromax -) 250 mg PO 0600 [facility] Last Admin: 05/02/18 05:48 Dose: 250 mg Budesonide/Formoterol Fumarate (Symbicort 160/4.5mcg -) 2 puff IH BID [facility] Last Admin: 05/01/18 21:25 Dose: Not Given Clopidogrel Bisulfate (Plavix -) 75 mg PO DAILY [facility] Last Admin: 05/01/18 09:53 Dose: 75 mg Clotrimazole (Lotrimin 1% Cream -) 1 applic TP BID [facility] Last Admin: 05/01/18 21:25 Dose: Not Given Docusate Sodium (Colace -) 300 mg PO [facility] Last Admin: 05/01/18 21:36 Dose: 300 mg Fluticasone Propionate (Flonase -) 2 spray NS BID [facility] Last Admin: 05/01/18 21:32 Dose: 2 spray Folic Acid (Folic Acid -) 1 mg PO DAILY [facility] Last Admin: 05/01/18 09:52 Dose: 1 mg Furosemide (Lasix Injection -) 40 mg IVPUSH DAILY [facility] Last Admin: 05/01/18 09:52 Dose: 40 mg Guaifenesin (Robitussin Dm -) 10 ml PO Q6H PRN PRN Reason: COUGH Insulin Aspart (Novolog Vial Sliding Scale -) 1 vial SQ ACHS [facility]; Protocol Last Admin: 05/02/18 06:09 Dose: Not Given Isosorbide Mononitrate (Imdur -) 30 mg PO DAILY [facility] Last Admin: 05/01/18 09:53 Dose: 30 mg Methylprednisolone Sodium Succinate (Solu-Medrol -) 40 mg IVPB Q6H-IV [facility] Last Admin: 05/02/18 02:20 Dose: 40 mg Montelukast Sodium (Singulair -) 10 mg PO HS [facility] Last Admin: 05/01/18 21:36 Dose: 10 mg Mupirocin (Bactroban 2% Ointment -) 1 applic TP BID [facility] Last Admin: 05/01/18 21:24 Dose: Not Given Nebivolol (Bystolic -) 5 mg PO DAILY [facility] Last Admin: 05/01/18 09:52 Dose: 5 mg Nitroglycerin (Nitrostat -) 0.4 mg SL AM PRN PRN Reason: PAIN LEVEL 6-10 Oxycodone HCl (Roxicodone -) 5 mg PO Q8H PRN PRN Reason: PAIN LEVEL 7 - 10 Last Admin: 05/02/18 01:31 Dose: 5 mg Pantoprazole Sodium (Protonix -) 40 mg PO DAILY [facility] Last Admin: 05/01/18 09:53 Dose: 40 mg Potassium Chloride (K-Dur -) 10 meq PO BID [facility] Last Admin: 05/01/18 21:32 Dose: 10 meq Ranitidine HCl (Zantac -) 150 mg PO DAILY [facility] Last Admin: 05/01/18 09:52 Dose: 150 mg Ranolazine (Ranexa -) 500 mg PO BID [facility] Last Admin: 05/01/18 21:32 Dose: 500 mg Sodium Chloride ([place] Nasal [place] -) 2 spray NS TID [facility] Last Admin: 05/02/18 05:48 Dose: 2 spray Tiotropium [place] (Spiriva Respimat) 2 puff IH DAILY [facility] Last Admin: 05/01/18 12:08 Dose: 2 puff Valsartan (Diovan -) 40 mg PO DAILY [facility] Last Admin: 05/01/18 09:53 Dose: 40 mg Verapamil HCl (Calan Sr -) 240 mg PO BID [facility] Last Admin: 05/01/18 21:32 Dose: 240 mg A/P Acute COPD Exacerbation LV Diastolic Dysfunction CAD HTN Hyperlipidemia PAD CKD - continue medrol - inhaled bronchodilators standing and PRN - echocardiogram - consider decreasing lasix - monitor urine output, creatinine - O2 to keep Spo2 >90% - DVT prophylaxis
[2018-05-02] MEDS: MUPIROCIN 2% TOPICAL OINTMENT 22 GM TUBE TP SCH ×2 (10:10→21:23)
[2018-05-02] MEDS ORDERED: ALBUTEROL SO4 0.083% IH SOL 2.5 MG/3 ML VIAL.NEB. NEB PRN (10:10)
--- NOTE | 2018-05-02 11:08 | PN ---
Progress Note, Physician Chief Complaint: no new co on IV lasix and IV steroids; less legs edema and pain will ask vascular sx eval r/o PVD - Current Medication List Current Medications: Active Medications Acetaminophen (Tylenol -) 650 mg PO Q6H PRN PRN Reason: FEVER Last Admin: 04/30/18 10:26 Dose: 650 mg Acetaminophen (Tylenol -) 325 mg PO Q8H PRN PRN Reason: PAIN LEVEL 7 - 10 Last Admin: 05/02/18 01:32 Dose: 325 mg Al Hydroxide/Mg Hydroxide (Mylanta Oral Suspension -) 30 ml PO Q6H PRN PRN Reason: DYSPEPSIA Last Admin: 05/02/18 01:36 Dose: 30 ml Albuterol Sulfate (Ventolin 0.083% Nebulizer Soln -) 1 amp NEB Q4H PRN PRN Reason: SHORT OF BREATH/WHEEZING Albuterol/Ipratropium (Duoneb -) 1 amp NEB RQID [facility] Last Admin: 05/02/18 08:50 Dose: 1 amp Alprazolam (Xanax -) 0.25 mg PO Q12H PRN PRN Reason: ANXIETY Last Admin: 05/01/18 21:32 Dose: 0.25 mg Atorvastatin Calcium (Lipitor -) [address] [facility] Last Admin: 05/01/18 21:32 Dose: 80 mg Azithromycin (Zithromax -) 250 mg PO 0600 [facility] Last Admin: 05/02/18 05:48 Dose: 250 mg Budesonide/Formoterol Fumarate (Symbicort 160/4.5mcg -) 2 puff IH BID [facility] Last Admin: 05/01/18 21:25 Dose: Not Given Clopidogrel Bisulfate (Plavix -) 75 mg PO DAILY [facility] Last Admin: 05/02/18 10:09 Dose: 75 mg Clotrimazole (Lotrimin 1% Cream -) 1 applic TP BID [facility] Last Admin: 05/01/18 21:25 Dose: Not Given Docusate Sodium (Colace -) 300 mg PO HS [facility] Last Admin: 05/01/18 21:36 Dose: 300 mg Fluticasone Propionate (Flonase -) 2 spray NS BID [facility] Last Admin: 05/01/18 21:32 Dose: 2 spray Folic Acid (Folic Acid -) 1 mg PO DAILY [facility] Last Admin: 05/02/18 10:09 Dose: 1 mg Furosemide (Lasix Injection -) 40 mg IVPUSH DAILY [facility] Last Admin: 05/02/18 10:09 Dose: 40 mg Guaifenesin (Robitussin Dm -) 10 ml PO Q6H PRN PRN Reason: COUGH Insulin Aspart (Novolog Vial Sliding Scale -) 1 vial SQ ACHS [facility]; Protocol Last Admin: 05/02/18 06:09 Dose: Not Given Isosorbide Mononitrate (Imdur -) 30 mg PO DAILY [facility] Last Admin: 05/02/18 10:09 Dose: 30 mg Methylprednisolone Sodium Succinate (Solu-Medrol -) 40 mg IVPB Q6H-IV [facility] Last Admin: 05/02/18 10:07 Dose: 40 mg Montelukast Sodium (Singulair -) 10 mg PO HS [facility] Last Admin: 05/01/18 21:36 Dose: 10 mg Mupirocin (Bactroban 2% Ointment -) 1 applic TP BID [facility] Last Admin: 05/02/18 10:10 Dose: Not Given Nebivolol (Bystolic -) 5 mg PO DAILY [facility] Last Admin: 05/01/18 09:52 Dose: 5 mg Nitroglycerin (Nitrostat -) 0.4 mg SL AM PRN PRN Reason: PAIN LEVEL 6-10 Oxycodone HCl (Roxicodone -) 5 mg PO Q8H PRN PRN Reason: PAIN LEVEL 7 - 10 Last Admin: 05/02/18 01:31 Dose: 5 mg Pantoprazole Sodium (Protonix -) 40 mg PO DAILY [facility] Last Admin: 05/02/18 10:09 Dose: 40 mg Potassium Chloride (K-Dur -) 10 meq PO BID [facility] Last Admin: 05/02/18 10:09 Dose: 10 meq Ranitidine HCl (Zantac -) 150 mg PO DAILY [facility] Last Admin: 05/02/18 10:09 Dose: 150 mg Ranolazine (Ranexa -) 500 mg PO BID [facility] Last Admin: 05/02/18 10:08 Dose: 500 mg Sodium Chloride ([place] Nasal [place] -) 2 spray NS TID [facility] Last Admin: 05/02/18 05:48 Dose: 2 spray Valsartan (Diovan -) 40 mg PO DAILY [facility] Last Admin: 05/02/18 10:09 Dose: 40 mg Verapamil HCl (Calan Sr -) 240 mg PO BID [facility] Last Admin: 05/02/18 10:09 Dose: 240 mg - Objective Vital Signs: Vital Signs Temperature 97.4 F L 05/02/18 06:44 Pulse Rate 55 L 05/02/18 06:44 Respiratory Rate 20 05/02/18 06:44 Blood Pressure 103/53 L 05/02/18 06:44 O2 Sat by Pulse Oximetry (%) 97 05/01/18 21:00 Constitutional: Yes: No Distress, Calm Eyes: Yes: Conjunctiva Clear HENT: Yes: Atraumatic Neck: Yes: Supple Cardiovascular: Yes: Regular Rate and Rhythm Respiratory: Yes: Wheezes (less) Gastrointestinal: Yes: Soft. No: Tenderness Genitourinary: No: CVA Tenderness - Left, CVA Tenderness - Right Musculoskeletal: No: Joint Stiffness, Joint Swelling Extremities: No: Cold, Cool Edema: Yes (less / feet) Integumentary: No: Rash, Venous Stasis Changes Neurological: Yes: WNL, Alert, Oriented ...Motor Strength: WNL Psychiatric: Yes: WNL, Alert, Oriented. No: Agitated, Suicidal Ideation Labs: CBC, BMP 05/02/18 07:30 05/02/18 07:30 INR, PTT INR Cancelled 04/29/18 15:44 - ....Imaging Other: Report Reviewed Assessment/Plan The patient is a 62 year old female with past medical history significant for CAD, HTN, [place] s/p angioplasty 2011, L. ventricular end diastolic dysfunction, PVD , asthma, COPD, Mesenteric ischemia treated with SMA bypass 2011, and Renal Failure (required temporary dialysis 2011) admitted with shortness of breath and legs swelling. cardiology and pulmonary f/u neurology and eye dr tiffany [place] eye blurred vision - h/o cataracts but given vasculopathy would r/o central cause IV lasix iv steroids nebs daily weight; check labs tests and consults reviewed with pt falls PFX d/w pt and staff
[2018-05-02] MEDS: BUDESONIDE/FORMETEROL FUMARATE 160/4.5 mcg INHALER IH SCH ×2 (11:39→21:25)
[2018-05-02] MEDS: CLOTRIMAZOLE 1% CREAM 15 GM TUBE TP SCH ×2 (11:39→21:43)
[2018-05-02] MEDS: NEBIVOLOL 5 MG TABLET (FP) PO SCH (11:42)
[2018-05-02] MEDS: TIOTROPIUM BROMIDE 2.5 MCG (SPIRIVA) RESPIMAT INHALER IH SCH (11:45)
[2018-05-02] MEDS ORDERED: INSULIN (NOVOLOG) ASPART 100 UNITS/ML 10ML VIAL ONE (11:56)
[2018-05-02] MEDS: FLUTICASONE PROP 0.05% 16 GM NASAL SPRAY NS SCH ×2 (13:38→21:43)
--- NOTE | 2018-05-02 13:47 | ECHO ---
Name: CORNELL HOOKS Exam:Adult Echocardiogram Study Date: 05/02/2018 10:42 AM Age: 62 yrs Reason For Study: Heart failure,heart murmur Height: 64 in Weight: 163 lb BSA: 1.8 m2 MMode/2D Measurements & Calculations IVSd: 0.89 cm Ao root diam: 3.3 cm LVIDd: 5.4 cm LA dimension: 3.7 cm LVIDs: 3.0 cm ACS: 1.1 cm LVPWd: 0.89 cm IVSs: 1.1 cm LVPWs: 1.2 cm EDV(Teich): 141.1 ml ESV(Teich): 36.1 ml Doppler Measurements & Calculations MV E max marck: 108.1 cm/sec Ao V2 max: 176.7 cm/sec MV A max marck: 107.1 cm/sec Ao max P.5 mmHg MV E/A: 1.0 Ao V2 mean: 121.2 cm/sec Ao mean P.6 mmHg Ao V2 VTI: 39.5 cm AI P1/2t: 405.9 msec AI max marck: 314.9 cm/sec MR max marck: 402.9 cm/sec AI max P.7 mmHg MR max P.0 mmHg AI dec slope: 227.2 cm/sec2 TR max markc: 285.6 cm/sec Med Peak E' Marck: 6.8 cm/sec TR max P.6 mmHg Med E/e': 15.9 Lat Peak E' Marck: 7.5 cm/sec Lat E/e': 14.5 Procedure A complete two-dimensional transthoracic echocardiogram was performed (2D, M-mode, Doppler and color flow Doppler). Left Ventricle The left ventricle is normal in size. Left ventricular systolic function is normal. Ejection Fraction = 65- 70%. No regional wall motion abnormalities noted. Right Ventricle The right ventricle is normal size. The right ventricular systolic function is normal. Atria The left atrial size is normal. Right atrial size is normal. Mitral Valve There is mild mitral annular calcification. There is no mitral regurgitation noted. Tricuspid Valve The tricuspid valve is normal in structure and function. No tricuspid regurgitation. Aortic Valve There is mild aortic sclerosis.;. No aortic regurgitation is present. Pulmonic Valve The pulmonic valve is not well visualized. Great Vessels The aortic root is normal size. Pericardium/Pleura There is no pericardial effusion. Interpretation Summary The left ventricle is normal in size. Left ventricular systolic function is normal. No regional wall motion abnormalities noted. Ejection Fraction = 65-70%. The right ventricular systolic function is normal. The left atrial size is normal. Right atrial size is normal. There is mild mitral annular calcification. There is mild aortic sclerosis.; No significant valvular regurgitations are seen There is no pericardial effusion. Previous study is not available for comparison Gerard Nichols MD 05/02/2018 01:46 PM
--- NOTE | 2018-05-02 14:12 | PN ---
Progress Note, Physician History of Present Illness: Still with cough, dyspnea, wheeze, but LE edema has resolved. - Current Medication List Current Medications: Active Medications Acetaminophen (Tylenol -) 650 mg PO Q6H PRN PRN Reason: FEVER Last Admin: 04/30/18 10:26 Dose: 650 mg Acetaminophen (Tylenol -) 325 mg PO Q8H PRN PRN Reason: PAIN LEVEL 7 - 10 Last Admin: 05/02/18 01:32 Dose: 325 mg Al Hydroxide/Mg Hydroxide (Mylanta Oral Suspension -) 30 ml PO Q6H PRN PRN Reason: DYSPEPSIA Last Admin: 05/02/18 01:36 Dose: 30 ml Albuterol Sulfate (Ventolin 0.083% Nebulizer Soln -) 1 amp NEB Q4H PRN PRN Reason: SHORT OF BREATH/WHEEZING Albuterol/Ipratropium (Duoneb -) 1 amp NEB RQID [facility] Last Admin: 05/02/18 13:47 Dose: 1 amp Alprazolam (Xanax -) 0.25 mg PO Q12H PRN PRN Reason: ANXIETY Last Admin: 05/01/18 21:32 Dose: 0.25 mg Atorvastatin Calcium (Lipitor -) 80 mg PO [facility] Last Admin: 05/01/18 21:32 Dose: 80 mg Azithromycin (Zithromax -) 250 mg PO 0600 [facility] Last Admin: 05/02/18 05:48 Dose: 250 mg Budesonide/Formoterol Fumarate (Symbicort 160/4.5mcg -) 2 puff IH BID [facility] Last Admin: 05/02/18 11:39 Dose: Not Given Clopidogrel Bisulfate (Plavix -) 75 mg PO DAILY [facility] Last Admin: 05/02/18 10:09 Dose: 75 mg Clotrimazole (Lotrimin 1% Cream -) 1 applic TP BID [facility] Last Admin: 05/02/18 11:39 Dose: Not Given Docusate Sodium (Colace -) 300 mg PO HS [facility] Last Admin: 05/01/18 21:36 Dose: 300 mg Fluticasone Propionate (Flonase -) 2 spray NS BID [facility] Last Admin: 05/02/18 13:38 Dose: 2 spray Folic Acid (Folic Acid -) 1 mg PO DAILY [facility] Last Admin: 05/02/18 10:09 Dose: 1 mg Furosemide (Lasix Injection -) 40 mg IVPUSH DAILY [facility] Last Admin: 05/02/18 10:09 Dose: 40 mg Guaifenesin (Robitussin Dm -) 10 ml PO Q6H PRN PRN Reason: COUGH Insulin Aspart (Novolog Vial Sliding Scale -) 1 vial SQ ACHS [facility]; Protocol Last Admin: 05/02/18 12:03 Dose: 2 units Isosorbide Mononitrate (Imdur -) 30 mg PO DAILY [facility] Last Admin: 05/02/18 10:09 Dose: 30 mg Methylprednisolone Sodium Succinate (Solu-Medrol -) 40 mg IVPB Q6H-IV [facility] Last Admin: 05/02/18 10:07 Dose: 40 mg Montelukast Sodium (Singulair -) 10 mg PO HS [facility] Last Admin: 05/01/18 21:36 Dose: 10 mg Mupirocin (Bactroban 2% Ointment -) 1 applic TP BID [facility] Last Admin: 05/02/18 10:10 Dose: Not Given Nebivolol (Bystolic -) 5 mg PO DAILY [facility] Last Admin: 05/02/18 11:42 Dose: 5 mg Nitroglycerin (Nitrostat -) 0.4 mg SL AM PRN PRN Reason: PAIN LEVEL 6-10 Oxycodone HCl (Roxicodone -) 5 mg PO Q8H PRN PRN Reason: PAIN LEVEL 7 - 10 Last Admin: 05/02/18 01:31 Dose: 5 mg Pantoprazole Sodium (Protonix -) 40 mg PO DAILY [facility] Last Admin: 05/02/18 10:09 Dose: 40 mg Potassium Chloride (K-Dur -) 10 meq PO BID [facility] Last Admin: 05/02/18 10:09 Dose: 10 meq Ranitidine HCl (Zantac -) 150 mg PO DAILY [facility] Last Admin: 05/02/18 10:09 Dose: 150 mg Ranolazine (Ranexa -) 500 mg PO BID [facility] Last Admin: 05/02/18 10:08 Dose: 500 mg Sodium Chloride ([place] Nasal [place] -) 2 spray NS TID [facility] Last Admin: 05/02/18 05:48 Dose: 2 spray Valsartan (Diovan -) 40 mg PO DAILY [facility] Last Admin: 05/02/18 10:09 Dose: 40 mg Verapamil HCl (Calan Sr -) 240 mg PO BID [facility] Last Admin: 05/02/18 10:09 Dose: 240 mg - Objective Vital Signs: Vital Signs Temperature 97.4 F L 05/02/18 06:44 Pulse Rate 55 L 05/02/18 06:44 Respiratory Rate 20 05/02/18 06:44 Blood Pressure 103/53 L 05/02/18 06:44 O2 Sat by Pulse Oximetry (%) 97 05/01/18 21:00 Constitutional: Yes: No Distress, Calm Neck: Yes: Supple Cardiovascular: Yes: Regular Rate and Rhythm Respiratory: Yes: Regular, Cough, Diminished, On Nasal O2, SOB, Wheezes Gastrointestinal: Yes: Normal Bowel Sounds, Soft Edema: No Labs: CBC, BMP 05/02/18 07:30 05/02/18 07:30 INR, PTT INR Cancelled 04/29/18 15:44 Problem List - Problems (1) Shortness of breath Code(s): R06.02 - SHORTNESS OF BREATH (2) COPD exacerbation Code(s): J44.1 - CHRONIC OBSTRUCTIVE PULMONARY DISEASE W (ACUTE) EXACERBATION (3) Coronary artery disease Code(s): I25.10 - ATHSCL HEART DISEASE OF [place] CORONARY ARTERY W/O ANG PCTRS Qualifiers: Coronary Disease-Associated Artery/Lesion type: [place] artery [place] vs. transplanted heart: [place] heart Associated angina: without angina Qualified Code(s): I25.10 - Atherosclerotic heart disease of [place] coronary artery without angina pectoris (4) H/O carotid endarterectomy Code(s): Z98.890 - OTHER SPECIFIED POSTPROCEDURAL STATES (5) HTN (hypertension) Code(s): I10 - ESSENTIAL (PRIMARY) HYPERTENSION Qualifiers: Hypertension type: essential hypertension Qualified Code(s): I10 - Essential (primary) hypertension (6) History of myocardial infarction Code(s): I25.2 - OLD MYOCARDIAL INFARCTION (7) Hyperlipidemia Code(s): E78.5 - HYPERLIPIDEMIA, UNSPECIFIED Qualifiers: Hyperlipidemia type: pure hypercholesterolemia Qualified Code(s): E78.00 - Pure hypercholesterolemia, unspecified; E78.0 - Pure hypercholesterolemia (8) 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 Resolving acute on chronic diastolic failure 2. Acute exacerbation of COPD, persistent wheeze/rhonchi 3. CAD post HI, angina pectoris 4. Systolic murmur, AV sclerosis rule out stenosis 5. HTN/HCVD 6. Hyperlipidemia 7. Bilateral carotid artery disease post right CEA 8. Mesenteric ischemia post intervention 9. PAD post intervention PLAN: 1. Continue Verapamil 240 bid with caution (consider decreasing dosage if hypotension persists) 2. Continue Bystolic 5 qd with caution 3. Continue Imdur 30 qd and Ranexa 500 bid 4. Continue Diovan 40 qd unless contraindicated with close monitoring or renal function 5. Continue Lipitor 80 qhs 6. Resume home oral Lasix dose 7. Continue Plavix 75 qd 9. Follow up with Dr. Luis Eduardo Manning post D/C, patient's visitor services representative 10. BD, IV steroids with GI protection, Singulair, O2 to keep Spo2 >90%
--- NOTE | 2018-05-02 16:44 | PN ---
Progress Note (short form) - Note Progress Note: Surgery Asked to evaluate patient for B/l LE edema PMHX: The patient is a 62 year old female with past medical history significant for CAD, HTN, [place] s/p angioplasty 2011, L. ventricular end diastolic dysfunction , PVD, asthma, COPD, Mesenteric ischemia treated with SMA bypass 2011, and Renal Failure (required temporary dialysis 2011) presented to the emergency department with shortness of breath and leg swelling that began about 1 week ago. Vital Signs Temp 97.8 F 05/02/18 14:28 Pulse 60 05/02/18 14:28 Resp 18 05/02/18 14:28 BP 101/50 L 05/02/18 14:28 Pulse Ox 97 05/01/18 21:00 Intake & Output 05/01/18 05/02/18 05/02/18 23:59 11:59 23:59 Intake Total 540 Balance 540 Weight 166 lb Intake: Oral 540 Oral Supplement 0 Other: Voiding Method Toilet Bowel Movement No Height 5 ft 4 in Body Mass Index (BMI) 28.5 CBC, BMP 05/02/18 07:30 05/02/18 07:30 PE: A&Ox3, NAD Unlabored resp on NC B/L LE compartments soft,supple and non-tender with some atrophy and chronic skin changes throughout, no evidence of chronic wounds or venous stasis. feet warm and well prefused with +1 pedal pulses. Problem List - Problems (1) Lower extremity edema Assessment/Plan: Patient with CHF exacerbation and LE edema resolved with medication. No need for Vascular intervention. 1) Continue medical management 2) Compression stockings PRN 3) F/u with Vascular as out patient 4) Re-consult vascular PRN Code(s): R60.0 - LOCALIZED EDEMA
[2018-05-02] MEDS: DOCUSATE SODIUM 100 MG CAPSULE (FP) PO SCH (21:24)
[2018-05-02] MEDS: MONTELUKAST NA 10 MG TABLET PO SCH (21:25)
[2018-05-02] MEDS: ATORVASTATIN CA 80 MG TABLET (FP) PO SCH (21:25)
[2018-05-03] MEDS: methylPREDNISolone NA SUCC 125 MG/2 ML VIAL IVPB SCH ×2 (03:01→09:51)
[2018-05-03] MEDS: AZITHROMYCIN 250 MG TABLET PO SCH (06:02)
[2018-05-03] MEDS: SODIUM CHLORIDE NASAL SPRAY 44 ML BOTTLE NS SCH ×3 (06:05→21:16)
[2018-05-03] MEDS: INSULIN SLIDING SCALE (NOVOLOG) 1 VIAL SQ SCH ×4 (06:06→21:31)
[2018-05-03] MEDS: oxyCODONE HCL 5 MG TABLET PO PRN (06:11)
[2018-05-03] MEDS: ALBUTEROL SO4 2.5/IPRATROPIUM 0.5 INH SOL 3 ML VIAL.NEB. NEB SCH ×4 (07:25→20:14)
--- NOTE | 2018-05-03 09:23 | CONSULT ---
Consult - text type - Consultation Consultation Note: Neurology History of Present Illness 62 year old female with past medical history significant for CAD, HTN, NE s/p angioplasty 2011, L. ventricular end diastolic dysfunction, PVD, asthma, COPD, Mesenteric ischemia treated with SMA bypass 2011, and Renal Failure (required temporary dialysis 2011) presents to the emergency department with shortness of breath and leg swelling. The patient was sent to the ED by PCP, stated at the office patient had elevated BP of 170/80 and elevated heart rate. The patient presented with 1 week of bilateral leg swelling with pain, right leg greater than left. Legs did not appear as swollen during my encounter and I inquired about DM and symptoms don't seem neuropathic. Reports discomfort in the "bone" and thus may benefit from Podiatry or Ortho eval. However, does report R eye visual field deficit which is acute on chronic. States she was seen by eye doctor and likely 2/2 to cataracts. States in the past, she had a clot go from her heart to her eye. Discussed having CT head to confirm no acute events such as CVA and she was in agreement. Also has tension type headaches, likely due to elevated BP and being in hospital. Will order Fioricet to be taken as needed. Lastly, described dizziness that's chronic. Discussed avoid quick head movements as she gets room spinning sensation in the AM when she's moving her head in bed. Will add Meclezine to medication regiment. Discussed hydration can also prevent acute episodes of vertigo. Past History - Past Medical History Anemia: No Asthma: Yes Cancer: No Cardiac Disorders: Yes (NE X 2) CVA: No COPD: Yes CHF: No Dementia: No Diabetes: No GI Disorders: Yes (HERNIA) Disorders: No HTN: Yes Hypercholesterolemia: Yes Liver Disease: No Seizures: No Thyroid Disease: No - Surgical History Abdominal Surgery: Yes Appendectomy: No Cardiac Surgery: Yes (Angioplasty, Carotid Artery) Cholecystectomy: Yes Lung Surgery: No Neurologic Surgery: No Orthopedic Surgery: No - Immunization History Immunization Up to Date: Yes (no flu or pna) - Suicide/Smoking/Psychosocial Hx Smoking Status: Yes Smoking History: Former smoker Have you smoked in the past 12 months: Yes Number of Cigarettes Smoked Daily: 10 If you are a former smoker, when did you quit?: 2014 Information on smoking cessation initiated: No 'Breaking Loose' booklet given: 12/20/12 Hx Alcohol Use: No Drug/Substance Use Hx: No Substance Use Type: None Hx Substance Use Treatment: No - Past Medical History Allergies/Adverse Reactions: Allergies Allergy/AdvReac Type Severity Reaction Status Date / Time No Known Drug Allergies Allergy Verified 04/29/18 15:06 Home Medications: Ambulatory Orders Albuterol 2.5/Ipratropium 0.5 [Duoneb -] 1 neb NEB Q4H PRN #0 vial 12/27/12 Atorvastatin Calcium [Lipitor] 80 mg PO HS #0 tablet 12/27/12 Clopidogrel Bisulfate [Plavix -] 75 mg PO DAILY #0 tablet 12/27/12 Folic Acid - 1 mg PO DAILY #0 tablet 12/27/12 Furosemide [Lasix -] 20 mg PO DAILY #0 tablet 12/27/12 Isosorbide Mononitrate [Imdur] 30 mg PO BID #0 tab.sr.24h 12/27/12 Montelukast Na [Singulair -] 10 mg PO HS #0 tablet 12/27/12 Ranitidine [Zantac -] 150 mg PO DAILY #0 tablet 12/27/12 Tiotropium [place] [Spiriva] 1 inh IH DAILY #0 inh 12/27/12 Fluticasone Prop 0.05% Nasal [Flonase -] 1 - 2 spray NS BID #1 spray.pump Mag Hydrox/Al Hydrox/Simeth [Mylanta Oral Suspension -] 30 ml PO Q6H PRN #0 cup 04/16/15 Acetaminophen [Tylenol .Regular Strength -] 650 mg PO Q6H PRN #0 tablet Docusate Sodium [Colace -] 300 mg PO HS capsule 08/16/16 Nitroglycerin 0.4 mg SL AM PRN #90 tab.subl 08/16/16 Pantoprazole Sodium [Protonix -] 40 mg PO DAILY #90 tablet.ec 08/16/16 Ranolazine [Ranexa -] 500 mg PO BID #180 tab 08/16/16 Verapamil HCl ER [Calan Sr -] 240 mg PO BID #180 tablet.er 08/16/16 Potassium Chloride [K-Dur -] 10 meq PO BID 02/15/18 Azithromycin [Zithromax 250mg Tablets -] 250 mg PO DAILY #30 tablet 03/03/18 Budesonide/Formeterol Fumarate [SYMBICORT 160/4.5mcg -] 2 puff IH BID #3 inhaler 03/03/18 Guaifenesin Dm [Robitussin Dm -] 10 ml PO Q6H PRN cup 03/03/18 Sodium Chloride Nasal [place] [[place] Nasal [place] -] 2 spray NS TID spray Mupirocin Ointment [Bactroban 2% Ointment -] 1 applic TP BID #1 tube 03/13/18 Clotrimazole [Antifungal] 30 gm TP BID #1 cream..g. 03/20/18 Alprazolam [Xanax] 0 mg PO PRN PRN 04/29/18 Review of Systems GENERAL/CONSTITUTIONAL: No fever or chills. No weakness. HEAD, EYES, EARS, NOSE AND THROAT: No change in vision. No ear pain or discharge. No sore throat. CARDIOVASCULAR: (+) shortness of breath. No chest pain. RESPIRATORY: No cough, wheezing, or hemoptysis. GASTROINTESTINAL: No nausea, vomiting, diarrhea or constipation. GENITOURINARY: No dysuria, frequency, or change in urination. MUSCULOSKELETAL: No joint or muscle swelling or pain. No neck or back pain. EXTREMITY: B/l lower extremity swelling with pain, worse on the R. SKIN: No rash NEUROLOGIC: No headache, vertigo, loss of consciousness, or change in strength/ sensation. ENDOCRINE: No increased thirst. No abnormal weight change. HEMATOLOGIC/LYMPHATIC: No anemia, easy bleeding, or history of blood clots. ALLERGIC/IMMUNOLOGIC: No hives or skin allergy. *Physical Exam Vital Signs Period Temp Pulse Resp BP Sys/Mann Pulse Ox Last 24 Hr 97.8 F-98.1 F 60-74 18-20 101-137/46-62 Gen: Awake, alert, responds to questions Card: RRR, nml S1,S2 Resp: B/L wheezing Abdomen: Soft, nontender, bowel sounds active Musculoskeletal: Adequate range of motion without significant deformity Head atraumatic and normocephalic CN: PERRL, EOMI intact, no apparent facial droop, no abnormalities in facial sensation, palate elevates, uvula and tongue midline Motor: Full strength to confrontation in upper and lower extermities proximally and distally. Tone normal throughout Sensory: Decresed LT in distal lower ext Reflexes: 2+ biceps, brachioradialis, patellar, achillies Coordination: Intact on [id number] testing Gait: Slightly antalgic CBCD WBC 11.1 K/mm3 (4.0-10.0) H 05/02/18 07:30 RBC 3.96 M/mm3 (3.60-5.2) 05/02/18 07:30 Hgb 11.8 GM/dL (10.7-15.3) 05/02/18 07:30 Hct 35.8 % (32.4-45.2) 05/02/18 07:30 MCV 90.5 fl (80-96) 05/02/18 07:30 MCHC 32.9 g/dl (32.0-36.0) 05/02/18 07:30 RDW 15.6 % (11.6-15.6) 05/02/18 07:30 Plt Count 281 K/MM3 (134-434) 05/02/18 07:30 MPV 6.8 fl (7.5-11.1) L 05/02/18 07:30 CMP Sodium 139 mmol/L (136-145) 05/02/18 07:30 Potassium 4.2 mmol/L (3.5-5.1) 05/02/18 07:30 Chloride 105 mmol/L (98-107) 05/02/18 07:30 Carbon Dioxide 29 mmol/L (21-32) 05/02/18 07:30 Anion Gap 5 MMOL/L (8-16) L 05/02/18 07:30 BUN 25 mg/dL (7-18) H 05/02/18 07:30 Creatinine 0.7 mg/dL (0.55-1.3) 05/02/18 07:30 Creat Clearance w eGFR > 60 (>60) 05/02/18 07:30 Random Glucose 143 mg/dL (74-106) H 05/02/18 07:30 Calcium 9.0 mg/dL (8.5-10.1) 05/02/18 07:30 Total Bilirubin 0.7 mg/dL (0.2-1) 04/30/18 06:10 AST 22 U/L (15-37) 04/30/18 06:10 ALT 24 U/L (13-61) 04/30/18 06:10 Alkaline Phosphatase 106 U/L (45-117) 04/30/18 06:10 Total Protein 7.1 g/dl (6.4-8.2) 04/30/18 06:10 Albumin 3.6 g/dl (3.4-5.0) 04/30/18 06:10 CARDIAC ENZYMES Creatine Kinase 73 IU/L (26-192) 04/30/18 06:10 Troponin I < 0.02 ng/ml (0.00-0.05) 04/30/18 06:10 Plan: 62 year old female with past medical history significant for CAD, HTN, NE s/p angioplasty 2011, L. ventricular end diastolic dysfunction, PVD, asthma, COPD, Mesenteric ischemia treated with SMA bypass 2011, and Renal Failure (required temporary dialysis 2011) presents to the emergency department with shortness of breath and leg swelling. The patient was sent to the ED by PCP, stated at the office patient had elevated BP of 170/80 and elevated heart rate. The patient presented with 1 week of bilateral leg swelling with pain, right leg greater than left, tension headaches, dizziness, and R visual field deficits. Ct head ordered Monitor blood pressure, maintain normotensive range Fioricet prescribed for headaches Vision possibly due to cataracts but will check CT head Meclezine added for dizziness Avoid sudden head movements Discussed hydration can also prevent acute episodes of vertigo. Consider Ortho/podiatry regarding foot pain Does not seem neuropathic Fall precautions discussed
[2018-05-03] MEDS ORDERED: MECLIZINE HCL 25 MG TABLET (FP) PO PRN (09:27)
[2018-05-03] MEDS ORDERED: ACETAMINOPHEN/CAFFEINE/BUTALBITAL 1 TAB PO PRN (09:27)
[2018-05-03] MEDS ORDERED: PT OWN MED DRAWER 7, Y5N ONE ×3 (09:49→21:21)
[2018-05-03] MEDS: MUPIROCIN 2% TOPICAL OINTMENT 22 GM TUBE TP SCH ×3 (09:52→21:13)
[2018-05-03] MEDS: NEBIVOLOL 5 MG TABLET (FP) PO SCH (09:53)
[2018-05-03] MEDS: VALSARTAN 40 MG TABLET (FP) PO SCH (09:54)
[2018-05-03] MEDS: VERAPAMIL HCL 240 MG E.R. TABLET (FP) PO SCH ×2 (09:54→21:14)
[2018-05-03] MEDS: FLUTICASONE PROP 0.05% 16 GM NASAL SPRAY NS SCH ×2 (09:54→21:15)
[2018-05-03] MEDS: ISOSORBIDE MONONITRATE 30 MG TAB.SR.24H (FP) PO SCH (09:55)
[2018-05-03] MEDS: FOLIC ACID 1 MG TABLET (FP) PO SCH (09:55)
[2018-05-03] MEDS: POTASSIUM CHLORIDE TABS 10 MEQ TABLET.ER (FP) PO SCH ×2 (09:55→21:15)
[2018-05-03] MEDS: CLOPIDOGREL BISULFATE 75 MG TABLET (FP) PO SCH (09:56)
[2018-05-03] MEDS: FUROSEMIDE 20 MG TABLET (FP) PO SCH (09:56)
[2018-05-03] MEDS: CLOTRIMAZOLE 1% CREAM 15 GM TUBE TP SCH ×3 (09:56→21:16)
[2018-05-03] MEDS: RANOLAZINE E.R. 500 MG TABLET (FP) PO SCH ×2 (09:57→21:15)
[2018-05-03] MEDS: RANITIDINE HCL 150 MG TABLET (FP) PO SCH (09:57)
[2018-05-03] MEDS: PANTOPRAZOLE 40 MG TABLET (FP) PO SCH (09:57)
[2018-05-03] MEDS: BUDESONIDE/FORMETEROL FUMARATE 160/4.5 mcg INHALER IH SCH ×2 (09:57→21:23)
[2018-05-03] MEDS ORDERED: methylPREDNISolone NA SUCC 40 MG/1 ML VIAL IVPB SCH (10:00)
--- NOTE | 2018-05-03 10:09 | PN ---
Progress Note (short form) - Note Progress Note: PULMONARY Breathing slightly worse today. Still feels very dry. +dry cough and wheezing. Vital Signs Period Temp Pulse Resp BP Sys/Mann Pulse Ox Last 24 Hr 97.8 F-98.6 F 60-71 18-20 101-137/46-77 Gen: NAD at rest Heart: RRR Lung: distant breath sounds, scattered wheeze Abd: soft, nontender Ext: distal edema CBC, BMP 05/02/18 07:30 05/02/18 07:30 Active Medications Acetaminophen (Tylenol -) 650 mg PO Q6H PRN PRN Reason: FEVER Last Admin: 05/02/18 16:41 Dose: 650 mg Acetaminophen (Tylenol -) 325 mg PO Q8H PRN PRN Reason: PAIN LEVEL 7 - 10 Last Admin: 05/02/18 01:32 Dose: 325 mg Acetaminophen/Butalbital/Caffeine (Fioricet -) 1 tablet PO Q6H PRN PRN Reason: HEADACHE Al Hydroxide/Mg Hydroxide (Mylanta Oral Suspension -) 30 ml PO Q6H PRN PRN Reason: DYSPEPSIA Last Admin: 05/02/18 01:36 Dose: 30 ml Albuterol Sulfate (Ventolin 0.083% Nebulizer Soln -) 1 amp NEB Q4H PRN PRN Reason: SHORT OF BREATH/WHEEZING Albuterol/Ipratropium (Duoneb -) 1 amp NEB RQID [facility] Last Admin: 05/03/18 07:25 Dose: 1 amp Alprazolam (Xanax -) 0.25 mg PO Q12H PRN PRN Reason: ANXIETY Last Admin: 05/01/18 21:32 Dose: 0.25 mg Atorvastatin Calcium (Lipitor -) 80 mg PO HS [facility] Last Admin: 05/02/18 21:25 Dose: 80 mg Azithromycin (Zithromax -) 250 mg PO 0600 [facility] Last Admin: 05/03/18 06:02 Dose: 250 mg Budesonide/Formoterol Fumarate (Symbicort 160/4.5mcg -) 2 puff IH BID [facility] Last Admin: 05/03/18 09:57 Dose: 2 puff Clopidogrel Bisulfate (Plavix -) 75 mg PO DAILY [facility] Last Admin: 05/03/18 09:56 Dose: 75 mg Clotrimazole (Lotrimin 1% Cream -) 1 applic TP BID [facility] Last Admin: 05/03/18 10:01 Dose: Not Given Docusate Sodium (Colace -) 300 mg PO HS [facility] Last Admin: 05/02/18 21:24 Dose: 300 mg Fluticasone Propionate (Flonase -) 2 spray NS BID [facility] Last Admin: 05/03/18 09:54 Dose: 2 spray Folic Acid (Folic Acid -) 1 mg PO DAILY [facility] Last Admin: 05/03/18 09:55 Dose: 1 mg Furosemide (Lasix -) 20 mg PO DAILY [facility] Last Admin: 05/03/18 09:56 Dose: 20 mg Guaifenesin (Robitussin Dm -) 10 ml PO Q6H PRN PRN Reason: COUGH Insulin Aspart (Novolog Vial Sliding Scale -) 1 vial SQ ACHS [facility]; Protocol Last Admin: 05/03/18 06:06 Dose: Not Given Isosorbide Mononitrate (Imdur -) 30 mg PO DAILY [facility] Last Admin: 05/03/18 09:55 Dose: 30 mg Meclizine HCl (Antivert -) 25 mg PO Q6H PRN PRN Reason: VERTIGO Methylprednisolone Sodium Succinate (Solu-Medrol -) 40 mg IVPB Q6H-IV [facility] Last Admin: 05/03/18 09:59 Dose: Not Given Montelukast Sodium (Singulair -) 10 mg PO [facility] Last Admin: 05/02/18 21:25 Dose: 10 mg Mupirocin (Bactroban 2% Ointment -) 1 applic TP BID [facility] Last Admin: 05/03/18 10:01 Dose: Not Given Nebivolol (Bystolic -) 5 mg PO DAILY [facility] Last Admin: 05/03/18 09:53 Dose: 5 mg Nitroglycerin (Nitrostat -) 0.4 mg SL AM PRN PRN Reason: PAIN LEVEL 6-10 Oxycodone HCl (Roxicodone -) 5 mg PO Q8H PRN PRN Reason: PAIN LEVEL 7 - 10 Last Admin: 05/03/18 06:11 Dose: 5 mg Pantoprazole Sodium (Protonix -) 40 mg PO DAILY [facility] Last Admin: 05/03/18 09:57 Dose: 40 mg Potassium Chloride (K-Dur -) 10 meq PO BID [facility] Last Admin: 05/03/18 09:55 Dose: 10 meq Ranitidine HCl (Zantac -) 150 mg PO DAILY [facility] Last Admin: 05/03/18 09:57 Dose: 150 mg Ranolazine (Ranexa -) 500 mg PO BID [facility] Last Admin: 05/03/18 09:57 Dose: 500 mg Sodium Chloride ([place] Nasal [place] -) 2 spray NS TID [facility] Last Admin: 05/03/18 06:05 Dose: Not Given Valsartan (Diovan -) 40 mg PO DAILY [facility] Last Admin: 05/03/18 09:54 Dose: 40 mg Verapamil HCl (Calan Sr -) 240 mg PO BID [facility] Last Admin: 05/03/18 09:54 Dose: 240 mg A/P Acute COPD Exacerbation LV Diastolic Dysfunction CAD HTN Hyperlipidemia PAD CKD - continue medrol, will increase to 60mg q6h - inhaled bronchodilators standing and PRN - on PO lasix - monitor urine output, creatinine - O2 to keep Spo2 >90% - DVT prophylaxis
--- NOTE | 2018-05-03 10:10 | PN ---
Progress Note, Physician Chief Complaint: consults reviewed feels better - Current Medication List Current Medications: Active Medications Acetaminophen (Tylenol -) 650 mg PO Q6H PRN PRN Reason: FEVER Last Admin: 05/02/18 16:41 Dose: 650 mg Acetaminophen (Tylenol -) 325 mg PO Q8H PRN PRN Reason: PAIN LEVEL 7 - 10 Last Admin: 05/02/18 01:32 Dose: 325 mg Acetaminophen/Butalbital/Caffeine (Fioricet -) 1 tablet PO Q6H PRN PRN Reason: HEADACHE Al Hydroxide/Mg Hydroxide (Mylanta Oral Suspension -) 30 ml PO Q6H PRN PRN Reason: DYSPEPSIA Last Admin: 05/02/18 01:36 Dose: 30 ml Albuterol Sulfate (Ventolin 0.083% Nebulizer Soln -) 1 amp NEB Q4H PRN PRN Reason: SHORT OF BREATH/WHEEZING Albuterol/Ipratropium (Duoneb -) 1 amp NEB RQID [facility] Last Admin: 05/03/18 07:25 Dose: 1 amp Alprazolam (Xanax -) 0.25 mg PO Q12H PRN PRN Reason: ANXIETY Last Admin: 05/01/18 21:32 Dose: 0.25 mg Atorvastatin Calcium (Lipitor -) 80 mg PO [facility] Last Admin: 05/02/18 21:25 Dose: 80 mg Azithromycin (Zithromax -) 250 mg PO 0600 [facility] Last Admin: 05/03/18 06:02 Dose: 250 mg Budesonide/Formoterol Fumarate (Symbicort 160/4.5mcg -) 2 puff IH BID [facility] Last Admin: 05/03/18 09:57 Dose: 2 puff Clopidogrel Bisulfate (Plavix -) 75 mg PO DAILY [facility] Last Admin: 05/03/18 09:56 Dose: 75 mg Clotrimazole (Lotrimin 1% Cream -) 1 applic TP BID [facility] Last Admin: 05/03/18 10:01 Dose: Not Given Docusate Sodium (Colace -) 300 mg PO HS [facility] Last Admin: 05/02/18 21:24 Dose: 300 mg Fluticasone Propionate (Flonase -) 2 spray NS BID [facility] Last Admin: 05/03/18 09:54 Dose: 2 spray Folic Acid (Folic Acid -) 1 mg PO DAILY [facility] Last Admin: 05/03/18 09:55 Dose: 1 mg Furosemide (Lasix -) 20 mg PO DAILY [facility] Last Admin: 05/03/18 09:56 Dose: 20 mg Guaifenesin (Robitussin Dm -) 10 ml PO Q6H PRN PRN Reason: COUGH Insulin Aspart (Novolog Vial Sliding Scale -) 1 vial SQ ACHS [facility]; Protocol Last Admin: 05/03/18 06:06 Dose: Not Given Isosorbide Mononitrate (Imdur -) 30 mg PO DAILY [facility] Last Admin: 05/03/18 09:55 Dose: 30 mg Meclizine HCl (Antivert -) 25 mg PO Q6H PRN PRN Reason: VERTIGO Methylprednisolone Sodium Succinate (Solu-Medrol -) 60 mg IVPB Q6H-IV [facility] Montelukast Sodium (Singulair -) 10 mg PO HS [facility] Last Admin: 05/02/18 21:25 Dose: 10 mg Mupirocin (Bactroban 2% Ointment -) 1 applic TP BID [facility] Last Admin: 05/03/18 10:01 Dose: Not Given Nebivolol (Bystolic -) 5 mg PO DAILY [facility] Last Admin: 05/03/18 09:53 Dose: 5 mg Nitroglycerin (Nitrostat -) 0.4 mg SL AM PRN PRN Reason: PAIN LEVEL 6-10 Oxycodone HCl (Roxicodone -) 5 mg PO Q8H PRN PRN Reason: PAIN LEVEL 7 - 10 Last Admin: 05/03/18 06:11 Dose: 5 mg Pantoprazole Sodium (Protonix -) 40 mg PO DAILY [facility] Last Admin: 05/03/18 09:57 Dose: 40 mg Potassium Chloride (K-Dur -) 10 meq PO BID [facility] Last Admin: 05/03/18 09:55 Dose: 10 meq Ranitidine HCl (Zantac -) 150 mg PO DAILY [facility] Last Admin: 05/03/18 09:57 Dose: 150 mg Ranolazine (Ranexa -) 500 mg PO BID [facility] Last Admin: 05/03/18 09:57 Dose: 500 mg Sodium Chloride ([place] Nasal [place] -) 2 spray NS TID [facility] Last Admin: 05/03/18 06:05 Dose: Not Given Valsartan (Diovan -) 40 mg PO DAILY [facility] Last Admin: 05/03/18 09:54 Dose: 40 mg Verapamil HCl (Calan Sr -) 240 mg PO BID [facility] Last Admin: 05/03/18 09:54 Dose: 240 mg - Objective Vital Signs: Vital Signs Temperature 98.6 F 05/03/18 09:41 Pulse Rate 66 05/03/18 09:41 Respiratory Rate 20 05/03/18 09:41 Blood Pressure 135/77 05/03/18 09:41 O2 Sat by Pulse Oximetry (%) 97 05/01/18 21:00 Constitutional: Yes: No Distress, Calm Eyes: Yes: Conjunctiva Clear HENT: Yes: Atraumatic Neck: Yes: Supple Cardiovascular: Yes: Regular Rate and Rhythm Respiratory: Yes: CTA Bilaterally Gastrointestinal: Yes: Soft. No: Tenderness Genitourinary: No: CVA Tenderness - Left, CVA Tenderness - Right Musculoskeletal: No: Joint Stiffness, Joint Swelling Extremities: No: Cold, Cool Edema: Yes (trace now) Integumentary: No: Rash, Venous Stasis Changes Neurological: Yes: WNL, Alert, Oriented ...Motor Strength: WNL Psychiatric: Yes: WNL, Alert, Oriented. No: Agitated, Suicidal Ideation Labs: CBC, BMP 05/02/18 07:30 05/02/18 07:30 INR, PTT INR Cancelled 04/29/18 15:44 - ....Imaging Other: Report Reviewed Assessment/Plan The patient is a 62 year old female with past medical history significant for CAD, HTN, [place] s/p angioplasty 2011, L. ventricular end diastolic dysfunction, PVD , asthma, COPD, Mesenteric ischemia treated with SMA bypass 2011, and Renal Failure (required temporary dialysis 2011) admitted with shortness of breath and legs swelling. cardiology and pulmonary f/u neurology and vascular sx f/u IV lasix iv steroids nebs daily weight; check labs tests and consults reviewed with pt falls PFX d/w pt and staff
--- NOTE | 2018-05-03 14:22 | PN ---
Progress Note, Physician Chief Complaint: Events noted Wheezing History of Present Illness: Patient was seen and examined. Awake and alert. Chart was reviewed Denies chest pain. Mild wheezing and dyspnea intermittently - Current Medication List Current Medications: Active Medications Acetaminophen (Tylenol -) 650 mg PO Q6H PRN PRN Reason: FEVER Last Admin: 05/02/18 16:41 Dose: 650 mg Acetaminophen (Tylenol -) 325 mg PO Q8H PRN PRN Reason: PAIN LEVEL 7 - 10 Last Admin: 05/02/18 01:32 Dose: 325 mg Acetaminophen/Butalbital/Caffeine (Fioricet -) 1 tablet PO Q6H PRN PRN Reason: HEADACHE Al Hydroxide/Mg Hydroxide (Mylanta Oral Suspension -) 30 ml PO Q6H PRN PRN Reason: DYSPEPSIA Last Admin: 05/02/18 01:36 Dose: 30 ml Albuterol Sulfate (Ventolin 0.083% Nebulizer Soln -) 1 amp NEB Q4H PRN PRN Reason: SHORT OF BREATH/WHEEZING Albuterol/Ipratropium (Duoneb -) 1 amp NEB RQID [facility] Last Admin: 05/03/18 11:15 Dose: 1 amp Alprazolam (Xanax -) 0.25 mg PO Q12H PRN PRN Reason: ANXIETY Last Admin: 05/01/18 21:32 Dose: 0.25 mg Atorvastatin Calcium (Lipitor -) 80 mg PO [facility] Last Admin: 05/02/18 21:25 Dose: 80 mg Azithromycin (Zithromax -) 250 mg PO 0600 [facility] Last Admin: 05/03/18 06:02 Dose: 250 mg Budesonide/Formoterol Fumarate (Symbicort 160/4.5mcg -) 2 puff IH BID [facility] Last Admin: 05/03/18 09:57 Dose: 2 puff Clopidogrel Bisulfate (Plavix -) 75 mg PO DAILY [facility] Last Admin: 05/03/18 09:56 Dose: 75 mg Clotrimazole (Lotrimin 1% Cream -) 1 applic TP BID [facility] Last Admin: 05/03/18 10:01 Dose: Not Given Docusate Sodium (Colace -) 300 mg PO [facility] Last Admin: 05/02/18 21:24 Dose: 300 mg Fluticasone Propionate (Flonase -) 2 spray NS BID [facility] Last Admin: 05/03/18 09:54 Dose: 2 spray Folic Acid (Folic Acid -) 1 mg PO DAILY [facility] Last Admin: 05/03/18 09:55 Dose: 1 mg Furosemide (Lasix -) 20 mg PO DAILY [facility] Last Admin: 05/03/18 09:56 Dose: 20 mg Guaifenesin (Robitussin Dm -) 10 ml PO Q6H PRN PRN Reason: COUGH Insulin Aspart (Novolog Vial Sliding Scale -) 1 vial SQ ACHS [facility]; Protocol Last Admin: 05/03/18 12:41 Dose: Not Given Isosorbide Mononitrate (Imdur -) 30 mg PO DAILY [facility] Last Admin: 05/03/18 09:55 Dose: 30 mg Meclizine HCl (Antivert -) 25 mg PO Q6H PRN PRN Reason: VERTIGO Methylprednisolone Sodium Succinate (Solu-Medrol -) 60 mg IVPB Q6H-IV [facility] Montelukast Sodium (Singulair -) 10 mg PO HS [facility] Last Admin: 05/02/18 21:25 Dose: 10 mg Mupirocin (Bactroban 2% Ointment -) 1 applic TP BID [facility] Last Admin: 05/03/18 10:01 Dose: Not Given Nebivolol (Bystolic -) 5 mg PO DAILY [facility] Last Admin: 05/03/18 09:53 Dose: 5 mg Nitroglycerin (Nitrostat -) 0.4 mg SL AM PRN PRN Reason: PAIN LEVEL 6-10 Oxycodone HCl (Roxicodone -) 5 mg PO Q8H PRN PRN Reason: PAIN LEVEL 7 - 10 Last Admin: 05/03/18 06:11 Dose: 5 mg Pantoprazole Sodium (Protonix -) 40 mg PO DAILY [facility] Last Admin: 05/03/18 09:57 Dose: 40 mg Potassium Chloride (K-Dur -) 10 meq PO BID [facility] Last Admin: 05/03/18 09:55 Dose: 10 meq Ranitidine HCl (Zantac -) 150 mg PO DAILY [facility] Last Admin: 05/03/18 09:57 Dose: 150 mg Ranolazine (Ranexa -) 500 mg PO BID [facility] Last Admin: 05/03/18 09:57 Dose: 500 mg Sodium Chloride ([place] Nasal [place] -) 2 spray NS TID [facility] Last Admin: 05/03/18 13:46 Dose: 2 spray Valsartan (Diovan -) 40 mg PO DAILY [facility] Last Admin: 05/03/18 09:54 Dose: 40 mg Verapamil HCl (Calan Sr -) 240 mg PO BID [facility] Last Admin: 05/03/18 09:54 Dose: 240 mg - Objective Vital Signs: Vital Signs Temperature 98.6 F 05/03/18 09:41 Pulse Rate 66 05/03/18 09:41 Respiratory Rate 20 05/03/18 09:41 Blood Pressure 135/77 05/03/18 09:41 O2 Sat by Pulse Oximetry (%) 97 05/03/18 09:00 Neck: Yes: Supple Cardiovascular: Yes: Regular Rate and Rhythm, S1, S2 Respiratory: Yes: Diminished, Wheezes Gastrointestinal: Yes: Normal Bowel Sounds, Soft. 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 - SUE'S ESOPHAGUS WITHOUT DYSPLASIA Qualifiers: Sue's esophagus type: with dysplasia of unspecified degree Qualified Code(s): K22.719 - Sue's esophagus with dysplasia, unspecified; K22.71 - Sue's esophagus with dysplasia (5) COPD exacerbation Code(s): J44.1 - CHRONIC OBSTRUCTIVE PULMONARY DISEASE W (ACUTE) EXACERBATION (6) Carotid stenosis Code(s): I65.29 - OCCLUSION AND STENOSIS OF UNSPECIFIED CAROTID ARTERY (7) Coronary artery disease Code(s): I25.10 - ATHSCL HEART DISEASE OF [place] CORONARY ARTERY W/O ANG PCTRS Qualifiers: Coronary Disease-Associated Artery/Lesion type: [place] artery [place] vs. transplanted heart: [place] heart Associated angina: without angina Qualified Code(s): I25.10 - Atherosclerotic heart disease of [place] coronary artery without angina pectoris (8) HTN (hypertension) Code(s): I10 - ESSENTIAL (PRIMARY) HYPERTENSION Qualifiers: Hypertension type: essential hypertension Qualified Code(s): I10 - Essential (primary) hypertension (9) History of myocardial infarction Code(s): I25.2 - OLD MYOCARDIAL INFARCTION (10) Hyperlipidemia Code(s): E78.5 - HYPERLIPIDEMIA, UNSPECIFIED Qualifiers: Hyperlipidemia type: pure hypercholesterolemia Qualified Code(s): E78.00 - Pure hypercholesterolemia, unspecified; E78.0 - Pure hypercholesterolemia Assessment/Plan 1. Resolving acute on chronic diastolic failure 2. Acute exacerbation of COPD, persistent wheeze/rhonchi 3. CAD post TN, angina pectoris 4. Systolic murmur, AV sclerosis 5. HTN/HCVD 6. Hyperlipidemia 7. Bilateral carotid artery disease post right CEA 8. Mesenteric ischemia post intervention 9. PAD post intervention PLAN: 1. Continue Verapamil and Bystolic as tolerated 2. Continue Imdur and Ranexa 3. Continue Diovan with close monitoring or renal function 4. Continue Lipitor 5. Diuretics 6. Continue Plavix 7. Follow up with Dr. Luis Eduardo Manning upon discharge 8. Bronchodilator, IV steroids with GI protection, Singulair, O2 to keep Spo2 > 90% Gerard Nichols MD
[2018-05-03] MEDS: methylPREDNISolone NA SUCC 40 MG/1 ML VIAL IVPB SCH ×2 (15:44→21:14)
[2018-05-03] MEDS: ACETAMINOPHEN 325 MG TABLET (FP) PO PRN (15:45)
[2018-05-03] MEDS: ATORVASTATIN CA 80 MG TABLET (FP) PO SCH (21:15)
[2018-05-03] MEDS: DOCUSATE SODIUM 100 MG CAPSULE (FP) PO SCH (21:15)
[2018-05-03] MEDS: MONTELUKAST NA 10 MG TABLET PO SCH (21:15)
[2018-05-03] MEDS: ALPRAZolam 0.25 MG TABLET PO PRN (21:23)
[2018-05-03] MEDS: MAG HYDROX/AL HYDROX/SIMETH 30 ML UNIT-DOSE CUP PO PRN (21:23)
[2018-05-04] MEDS: methylPREDNISolone NA SUCC 40 MG/1 ML VIAL IVPB SCH ×4 (04:22→22:34)
[2018-05-04] MEDS: AZITHROMYCIN 250 MG TABLET PO SCH (05:37)
[2018-05-04] MEDS: SODIUM CHLORIDE NASAL SPRAY 44 ML BOTTLE NS SCH ×3 (05:38→22:33)
[2018-05-04] MEDS: INSULIN SLIDING SCALE (NOVOLOG) 1 VIAL SQ SCH ×4 (06:02→22:33)
[2018-05-04] MEDS: ALBUTEROL SO4 2.5/IPRATROPIUM 0.5 INH SOL 3 ML VIAL.NEB. NEB SCH ×4 (07:30→20:47)
[2018-05-04 07:38] LABS: BASO % 0.1 % (0-2.0); HEMATOCRIT 37.3 % (32.4-45.2); HEMOGLOBIN 12.3 GM/dL (10.7-15.3); LYMPH % 5.4 % (8-40); MCH 29.9 pg (25.7-33.7); MCHC 32.9 g/dl (32.0-36.0); MEAN CELL VOLUME 90.8 fl (80-96); MEAN PLT VOLUME 6.9 fl (7.5-11.1); MONO % 2.8 % (3.8-10.2); NEUT % 91.7 % (42.8-82.8); PLATELET COUNT 292 K/MM3 (134-434); RBC 4.11 M/mm3 (3.60-5.2); RDW 15.9 % (11.6-15.6); WHITE BLOOD COUNT 9.1 K/mm3 (4.0-10.0)
[2018-05-04 08:11] LABS: ALBUMIN 3.2 g/dl (3.4-5.0); ALK PHOS 69 U/L (45-117); ANION GAP 4 MMOL/L (8-16); BILIRUBIN,TOTAL 0.3 mg/dL (0.2-1); BLOOD UREA NITROGEN 25 mg/dL (7-18); CALCIUM 8.7 mg/dL (8.5-10.1); CHLORIDE 101 mmol/L (98-107); CO2 31 mmol/L (21-32); CREATININE 0.7 mg/dL (0.55-1.3); GLUCOSE,RANDOM 145 mg/dL (74-106); POTASSIUM 4.6 mmol/L (3.5-5.1); SGOT/AST 10 U/L (15-37); SGPT/ALT 21 U/L (13-61); SODIUM 136 mmol/L (136-145); TOT PROT 6.2 g/dl (6.4-8.2)
--- NOTE | 2018-05-04 08:43 | PN ---
Progress Note (short form) - Note Progress Note: Neurology History of Present Illness 62 year old female with past medical history significant for CAD, HTN, [place] s/p angioplasty 2011, L. ventricular end diastolic dysfunction, PVD, asthma, COPD, Mesenteric ischemia treated with SMA bypass 2011, and Renal Failure (required temporary dialysis 2011) presents to the emergency department with shortness of breath and leg swelling. The patient was sent to the ED by PCP, stated at the office patient had elevated BP of 170/80 and elevated heart rate. The patient presented with 1 week of bilateral leg swelling with pain, right leg greater than left. Legs did not appear as swollen during my encounter and I inquired about DM and symptoms don't seem neuropathic. Reports discomfort in the "bone" and thus may benefit from Podiatry or Ortho eval. However, does report R eye visual field deficit which is acute on chronic. States she was seen by eye doctor and likely 2/2 to cataracts. States in the past, she had a clot go from her heart to her eye. CT head completed and reviewed and discussed. Small L frontal infarct noted. The patient states she is on plavix but not on ASA. Reports she was told to stop ASA for a procedure in Jul but not restarted. I would recommend restarting it for CVA prevention if no contraindications. Is on max dose statin which she continues to take. Also has tension type headaches, likely due to elevated BP and being in hospital. Fioricet to be taken as needed. Lastly, described dizziness that's chronic. Discussed avoiding quick head movements as she gets room spinning sensation in the AM when she's moving her head in bed. Added Meclezine. Discussed hydration can also prevent acute episodes of vertigo. Allergies/Adverse Reactions: Allergies Allergy/AdvReac Type Severity Reaction Status Date / Time No Known Drug Allergies Allergy Verified 04/29/18 15:06 Active Medications Acetaminophen (Tylenol -) 650 mg PO Q6H PRN PRN Reason: FEVER Last Admin: 05/03/18 15:45 Dose: 650 mg Acetaminophen (Tylenol -) 325 mg PO Q8H PRN PRN Reason: PAIN LEVEL 7 - 10 Last Admin: 05/02/18 01:32 Dose: 325 mg Acetaminophen/Butalbital/Caffeine (Fioricet -) 1 tablet PO Q6H PRN PRN Reason: HEADACHE Al Hydroxide/Mg Hydroxide (Mylanta Oral Suspension -) 30 ml PO Q6H PRN PRN Reason: DYSPEPSIA Last Admin: 05/03/18 21:23 Dose: 30 ml Albuterol Sulfate (Ventolin 0.083% Nebulizer Soln -) 1 amp NEB Q4H PRN PRN Reason: SHORT OF BREATH/WHEEZING Albuterol/Ipratropium (Duoneb -) 1 amp NEB RQID [facility] Last Admin: 05/04/18 07:30 Dose: 1 amp Alprazolam (Xanax -) 0.25 mg PO Q12H PRN PRN Reason: ANXIETY Last Admin: 05/03/18 21:23 Dose: 0.25 mg Atorvastatin Calcium (Lipitor -) 80 mg PO HS [facility] Last Admin: 05/03/18 21:15 Dose: 80 mg Azithromycin (Zithromax -) 250 mg PO 0600 [facility] Last Admin: 05/04/18 05:37 Dose: 250 mg Budesonide/Formoterol Fumarate (Symbicort 160/4.5mcg -) 2 puff IH BID [facility] Last Admin: 05/03/18 21:23 Dose: 2 puff Clopidogrel Bisulfate (Plavix -) 75 mg PO DAILY [facility] Last Admin: 05/03/18 09:56 Dose: 75 mg Clotrimazole (Lotrimin 1% Cream -) 1 applic TP BID [facility] Last Admin: 05/03/18 21:16 Dose: Not Given Docusate Sodium (Colace -) 300 mg PO HS [facility] Last Admin: 05/03/18 21:15 Dose: 300 mg Fluticasone Propionate (Flonase -) 2 spray NS BID [facility] Last Admin: 05/03/18 21:15 Dose: 2 spray Folic Acid (Folic Acid -) 1 mg PO DAILY [facility] Last Admin: 05/03/18 09:55 Dose: 1 mg Furosemide (Lasix -) 20 mg PO DAILY [facility] Last Admin: 05/03/18 09:56 Dose: 20 mg Guaifenesin (Robitussin Dm -) 10 ml PO Q6H PRN PRN Reason: COUGH Insulin Aspart (Novolog Vial Sliding Scale -) 1 vial SQ ACHS [facility]; Protocol Last Admin: 05/04/18 06:02 Dose: Not Given Isosorbide Mononitrate (Imdur -) 30 mg PO DAILY [facility] Last Admin: 05/03/18 09:55 Dose: 30 mg Meclizine HCl (Antivert -) 25 mg PO Q6H PRN PRN Reason: VERTIGO Methylprednisolone Sodium Succinate (Solu-Medrol -) 60 mg IVPB Q6H-IV [facility] Last Admin: 05/04/18 04:22 Dose: 60 mg Montelukast Sodium (Singulair -) 10 mg PO HS [facility] Last Admin: 05/03/18 21:15 Dose: 10 mg Mupirocin (Bactroban 2% Ointment -) 1 applic TP BID [facility] Last Admin: 05/03/18 21:13 Dose: Not Given Nebivolol (Bystolic -) 5 mg PO DAILY [facility] Last Admin: 05/03/18 09:53 Dose: 5 mg Nitroglycerin (Nitrostat -) 0.4 mg SL AM PRN PRN Reason: PAIN LEVEL 6-10 Oxycodone HCl (Roxicodone -) 5 mg PO Q8H PRN PRN Reason: PAIN LEVEL 7 - 10 Last Admin: 05/03/18 06:11 Dose: 5 mg Pantoprazole Sodium (Protonix -) 40 mg PO DAILY [facility] Last Admin: 05/03/18 09:57 Dose: 40 mg Potassium Chloride (K-Dur -) 10 meq PO BID [facility] Last Admin: 05/03/18 21:15 Dose: 10 meq Ranitidine HCl (Zantac -) 150 mg PO DAILY [facility] Last Admin: 05/03/18 09:57 Dose: 150 mg Ranolazine (Ranexa -) 500 mg PO BID [facility] Last Admin: 05/03/18 21:15 Dose: 500 mg Sodium Chloride ([place] Nasal [place] -) 2 spray NS TID [facility] Last Admin: 05/04/18 05:38 Dose: 2 spray Valsartan (Diovan -) 40 mg PO DAILY [facility] Last Admin: 05/03/18 09:54 Dose: 40 mg Verapamil HCl (Calan Sr -) 240 mg PO BID [facility] Last Admin: 05/03/18 21:14 Dose: 240 mg *Physical Exam Vital Signs Period Temp Pulse Resp BP Sys/Mann Pulse Ox Last 24 Hr 97.8 F-98.6 F 55-87 18-20 115-135/50-77 97-97 Gen: Awake, alert, responds to questions Card: RRR, nml S1,S2 Resp: B/L wheezing Abdomen: Soft, nontender, bowel sounds active Musculoskeletal: Adequate range of motion without significant deformity Head atraumatic and normocephalic CN: PERRL, EOMI intact, no apparent facial droop, no abnormalities in facial sensation, palate elevates, uvula and tongue midline Motor: Full strength to confrontation in upper and lower extermities proximally and distally. Tone normal throughout Sensory: Decresed LT in distal lower ext Reflexes: 2+ biceps, brachioradialis, patellar, achillies Coordination: Intact on [id number] testing Gait: Slightly antalgic CBCD WBC 9.1 K/mm3 (4.0-10.0) 05/04/18 06:30 RBC 4.11 M/mm3 (3.60-5.2) 05/04/18 06:30 Hgb 12.3 GM/dL (10.7-15.3) 05/04/18 06:30 Hct 37.3 % (32.4-45.2) 05/04/18 06:30 MCV 90.8 fl (80-96) 05/04/18 06:30 MCHC 32.9 g/dl (32.0-36.0) 05/04/18 06:30 RDW 15.9 % (11.6-15.6) H 05/04/18 06:30 Plt Count 292 K/MM3 (134-434) 05/04/18 06:30 MPV 6.9 fl (7.5-11.1) L 05/04/18 06:30 CMP Sodium 136 mmol/L (136-145) 05/04/18 06:30 Potassium 4.6 mmol/L (3.5-5.1) 05/04/18 06:30 Chloride 101 mmol/L (98-107) 05/04/18 06:30 Carbon Dioxide 31 mmol/L (21-32) 05/04/18 06:30 Anion Gap 4 MMOL/L (8-16) L 05/04/18 06:30 BUN 25 mg/dL (7-18) H 05/04/18 06:30 Creatinine 0.7 mg/dL (0.55-1.3) 05/04/18 06:30 Creat Clearance w eGFR > 60 (>60) 05/04/18 06:30 Random Glucose 145 mg/dL (74-106) H 05/04/18 06:30 Calcium 8.7 mg/dL (8.5-10.1) 05/04/18 06:30 Total Bilirubin 0.3 mg/dL (0.2-1) 05/04/18 06:30 AST 10 U/L (15-37) L 05/04/18 06:30 ALT 21 U/L (13-61) 05/04/18:30 Alkaline Phosphatase 69 U/L (45-117) 05/04/18:30 Total Protein 6.2 g/dl (6.4-8.2) L 05/04/18:30 Albumin 3.2 g/dl (3.4-5.0) L 05/04/18:30 CARDIAC ENZYMES Creatine Kinase 73 IU/L (26-192) 04/30/18 06:10 Troponin I < 0.02 ng/ml (0.00-0.05) 04/30/18 06:10 Plan: 62 year old female with past medical history significant for CAD, HTN, [place] s/p angioplasty 2011, L. ventricular end diastolic dysfunction, PVD, asthma, COPD, Mesenteric ischemia treated with SMA bypass 2011, and Renal Failure (required temporary dialysis 2011) presents to the emergency department with shortness of breath and leg swelling. The patient was sent to the ED by PCP, stated at the office patient had elevated BP of 170/80 and elevated heart rate. The patient presented with 1 week of bilateral leg swelling with pain, right leg greater than left, tension headaches, dizziness, and R visual field deficits. Ct head reviewed and discussed On plavix, if no Contraindication, recommended restarting ASA 81mg Continue Statin 80mg Monitor blood pressure, maintain normotensive range Fioricet prescribed for headaches Vision possibly due to cataracts, no occipital infarct on CT head, reassurance provided Meclezine added for dizziness Avoid sudden head movements Discussed hydration can also prevent acute episodes of vertigo. Consider Ortho/podiatry regarding foot pain Does not seem neuropathic Fall precautions discussed
[2018-05-04] MEDS: PANTOPRAZOLE 40 MG TABLET (FP) PO SCH (10:53)
[2018-05-04] MEDS: POTASSIUM CHLORIDE TABS 10 MEQ TABLET.ER (FP) PO SCH ×2 (10:53→22:34)
[2018-05-04] MEDS: FOLIC ACID 1 MG TABLET (FP) PO SCH (10:53)
[2018-05-04] MEDS: FUROSEMIDE 20 MG TABLET (FP) PO SCH (10:53)
[2018-05-04] MEDS: RANOLAZINE E.R. 500 MG TABLET (FP) PO SCH ×2 (10:53→22:34)
[2018-05-04] MEDS: VERAPAMIL HCL 240 MG E.R. TABLET (FP) PO SCH ×2 (10:53→22:34)
[2018-05-04] MEDS: ISOSORBIDE MONONITRATE 30 MG TAB.SR.24H (FP) PO SCH (10:53)
[2018-05-04] MEDS: RANITIDINE HCL 150 MG TABLET (FP) PO SCH (10:53)
[2018-05-04] MEDS: VALSARTAN 40 MG TABLET (FP) PO SCH (10:53)
[2018-05-04] MEDS: CLOTRIMAZOLE 1% CREAM 15 GM TUBE TP SCH ×2 (10:54→22:35)
[2018-05-04] MEDS ORDERED: PT OWN MED DRAWER 7, Y5N ONE ×4 (10:57→16:15)
[2018-05-04] MEDS: FLUTICASONE PROP 0.05% 16 GM NASAL SPRAY NS SCH ×2 (10:59→22:32)
[2018-05-04] MEDS: BUDESONIDE/FORMETEROL FUMARATE 160/4.5 mcg INHALER IH SCH ×2 (10:59→22:32)
[2018-05-04] MEDS: CLOPIDOGREL BISULFATE 75 MG TABLET (FP) PO SCH (10:59)
[2018-05-04] MEDS: MUPIROCIN 2% TOPICAL OINTMENT 22 GM TUBE TP SCH ×2 (11:16→22:34)
[2018-05-04 11:20] LABS: ANISOCYTOSIS 3+; MACROCYTOSIS 0; PLATELET ESTIMATE NORMAL; TEAR DROP CELLS 1+
--- NOTE | 2018-05-04 11:29 | PN ---
Progress Note, Physician Chief Complaint: many c/o chest tightness, feet pains; dry cough; insomnia and anxiety consults and tests d/w pt - Current Medication List Current Medications: Active Medications Acetaminophen (Tylenol -) 650 mg PO Q6H PRN PRN Reason: FEVER Last Admin: 05/03/18 15:45 Dose: 650 mg Acetaminophen (Tylenol -) 325 mg PO Q8H PRN PRN Reason: PAIN LEVEL 7 - 10 Last Admin: 05/02/18 01:32 Dose: 325 mg Acetaminophen/Butalbital/Caffeine (Fioricet -) 1 tablet PO Q6H PRN PRN Reason: HEADACHE Al Hydroxide/Mg Hydroxide (Mylanta Oral Suspension -) 30 ml PO Q6H PRN PRN Reason: DYSPEPSIA Last Admin: 05/03/18 21:23 Dose: 30 ml Albuterol Sulfate (Ventolin 0.083% Nebulizer Soln -) 1 amp NEB Q4H PRN PRN Reason: SHORT OF BREATH/WHEEZING Albuterol/Ipratropium (Duoneb -) 1 amp NEB RQID [facility] Last Admin: 05/04/18 07:30 Dose: 1 amp Alprazolam (Xanax -) 0.25 mg PO Q12H PRN PRN Reason: ANXIETY Last Admin: 05/03/18 21:23 Dose: 0.25 mg Atorvastatin Calcium (Lipitor -) 80 mg PO [facility] Last Admin: 05/03/18 21:15 Dose: 80 mg Azithromycin (Zithromax -) 250 mg PO 0600 [facility] Last Admin: 05/04/18 05:37 Dose: 250 mg Budesonide/Formoterol Fumarate (Symbicort 160/4.5mcg -) 2 puff IH BID [facility] Last Admin: 05/04/18 10:59 Dose: 2 puff Clopidogrel Bisulfate (Plavix -) 75 mg PO DAILY [facility] Last Admin: 05/04/18 10:59 Dose: 75 mg Clotrimazole (Lotrimin 1% Cream -) 1 applic TP BID [facility] Last Admin: 05/04/18 10:54 Dose: Not Given Docusate Sodium (Colace -) 300 mg PO [facility] Last Admin: 05/03/18 21:15 Dose: 300 mg Fluticasone Propionate (Flonase -) 2 spray NS BID [facility] Last Admin: 05/04/18 10:59 Dose: 2 spray Folic Acid (Folic Acid -) 1 mg PO DAILY [facility] Last Admin: 05/04/18 10:53 Dose: 1 mg Furosemide (Lasix -) 20 mg PO DAILY [facility] Last Admin: 05/04/18 10:53 Dose: 20 mg Guaifenesin (Robitussin Dm -) 10 ml PO Q6H PRN PRN Reason: COUGH Insulin Aspart (Novolog Vial Sliding Scale -) 1 vial SQ ACHS [facility]; Protocol Last Admin: 05/04/18 06:02 Dose: Not Given Isosorbide Mononitrate (Imdur -) 30 mg PO DAILY [facility] Last Admin: 05/04/18 10:53 Dose: 30 mg Meclizine HCl (Antivert -) 25 mg PO Q6H PRN PRN Reason: VERTIGO Methylprednisolone Sodium Succinate (Solu-Medrol -) 60 mg IVPB Q6H-IV [facility] Last Admin: 05/04/18 10:51 Dose: 60 mg Montelukast Sodium (Singulair -) 10 mg PO HS [facility] Last Admin: 05/03/18 21:15 Dose: 10 mg Mupirocin (Bactroban 2% Ointment -) 1 applic TP BID [facility] Last Admin: 05/04/18 11:16 Dose: Not Given Nebivolol (Bystolic -) 5 mg PO DAILY [facility] Last Admin: 05/03/18 09:53 Dose: 5 mg Nitroglycerin (Nitrostat -) 0.4 mg SL AM PRN PRN Reason: PAIN LEVEL 6-10 Oxycodone HCl (Roxicodone -) 5 mg PO Q8H PRN PRN Reason: PAIN LEVEL 7 - 10 Last Admin: 05/03/18 06:11 Dose: 5 mg Pantoprazole Sodium (Protonix -) 40 mg PO DAILY [facility] Last Admin: 05/04/18 10:53 Dose: 40 mg Potassium Chloride (K-Dur -) 10 meq PO BID [facility] Last Admin: 05/04/18 10:53 Dose: 10 meq Ranitidine HCl (Zantac -) 150 mg PO DAILY [facility] Last Admin: 05/04/18 10:53 Dose: 150 mg Ranolazine (Ranexa -) 500 mg PO BID [facility] Last Admin: 05/04/18 10:53 Dose: 500 mg Sodium Chloride ([place] Nasal [place] -) 2 spray NS TID [facility] Last Admin: 05/04/18 05:38 Dose: 2 spray Valsartan (Diovan -) 40 mg PO DAILY [facility] Last Admin: 05/04/18 10:53 Dose: 40 mg Verapamil HCl (Calan Sr -) 240 mg PO BID [facility] Last Admin: 05/04/18 10:53 Dose: 240 mg - Objective Vital Signs: Vital Signs Temperature 98.2 F 05/04/18 06:27 Pulse Rate 62 05/04/18 06:27 Respiratory Rate 20 05/04/18 06:27 Blood Pressure 132/50 L 05/04/18 06:27 O2 Sat by Pulse Oximetry (%) 97 05/03/18 21:00 Constitutional: Yes: No Distress, Calm Eyes: Yes: Conjunctiva Clear HENT: Yes: Atraumatic Neck: Yes: Supple Cardiovascular: Yes: Regular Rate and Rhythm Respiratory: Yes: Wheezes Gastrointestinal: Yes: Soft. No: Distention Genitourinary: No: CVA Tenderness - Left, CVA Tenderness - Right Musculoskeletal: No: Joint Stiffness, Joint Swelling Extremities: No: Cold, Cool, Cyanosis Edema: No Integumentary: No: Rash, Venous Stasis Changes Neurological: Yes: WNL, Alert, Oriented ...Motor Strength: WNL Psychiatric: Yes: WNL, Alert, Oriented. No: Agitated, Suicidal Ideation Labs: CBC, BMP 05/04/18 06:30 05/04/18 06:30 INR, PTT INR Cancelled 04/29/18 15:44 - ....Imaging Other: Report Reviewed Assessment/Plan The patient is a 62 year old female with past medical history significant for CAD, HTN, [place] s/p angioplasty 2011, L. ventricular end diastolic dysfunction, PVD , asthma, COPD, Mesenteric ischemia treated with SMA bypass 2011, and Renal Failure (required temporary dialysis 2011) admitted with shortness of breath and legs swelling. Acute COPD and CHF exac cardiology and pulmonary f/u neurology and vascular sx f/u IV lasix iv steroids nebs daily weight; check labs check feet xrays and PVR tests and consults reviewed with pt falls PFX d/w pt and staff
[2018-05-04] MEDS: NEBIVOLOL 5 MG TABLET (FP) PO SCH (11:58)
[2018-05-04] MEDS ORDERED: INSULIN (NOVOLOG) ASPART 100 UNITS/ML 10ML VIAL ONE (12:18)
--- NOTE | 2018-05-04 13:30 | PN ---
Progress Note, Physician History of Present Illness: Still with cough, dyspnea, wheeze, but LE edema has resolved. - Current Medication List Current Medications: Active Medications Acetaminophen (Tylenol -) 650 mg PO Q6H PRN PRN Reason: FEVER Last Admin: 05/03/18 15:45 Dose: 650 mg Acetaminophen (Tylenol -) 325 mg PO Q8H PRN PRN Reason: PAIN LEVEL 7 - 10 Last Admin: 05/02/18 01:32 Dose: 325 mg Acetaminophen/Butalbital/Caffeine (Fioricet -) 1 tablet PO Q6H PRN PRN Reason: HEADACHE Al Hydroxide/Mg Hydroxide (Mylanta Oral Suspension -) 30 ml PO Q6H PRN PRN Reason: DYSPEPSIA Last Admin: 05/03/18 21:23 Dose: 30 ml Albuterol Sulfate (Ventolin 0.083% Nebulizer Soln -) 1 amp NEB Q4H PRN PRN Reason: SHORT OF BREATH/WHEEZING Albuterol/Ipratropium (Duoneb -) 1 amp NEB RQID [facility] Last Admin: 05/04/18 11:32 Dose: 1 amp Alprazolam (Xanax -) 0.25 mg PO Q12H PRN PRN Reason: ANXIETY Last Admin: 05/03/18 21:23 Dose: 0.25 mg Atorvastatin Calcium (Lipitor -) 80 mg PO [facility] Last Admin: 05/03/18 21:15 Dose: 80 mg Azithromycin (Zithromax -) 250 mg PO 0600 [facility] Last Admin: 05/04/18 05:37 Dose: 250 mg Budesonide/Formoterol Fumarate (Symbicort 160/4.5mcg -) 2 puff IH BID [facility] Last Admin: 05/04/18 10:59 Dose: 2 puff Clopidogrel Bisulfate (Plavix -) 75 mg PO DAILY [facility] Last Admin: 05/04/18 10:59 Dose: 75 mg Clotrimazole (Lotrimin 1% Cream -) 1 applic TP BID [facility] Last Admin: 05/04/18 10:54 Dose: Not Given Docusate Sodium (Colace -) 300 mg PO [facility] Last Admin: 05/03/18 21:15 Dose: 300 mg Fluticasone Propionate (Flonase -) 2 spray NS BID [facility] Last Admin: 05/04/18 10:59 Dose: 2 spray Folic Acid (Folic Acid -) 1 mg PO DAILY [facility] Last Admin: 05/04/18 10:53 Dose: 1 mg Furosemide (Lasix -) 20 mg PO DAILY [facility] Last Admin: 05/04/18 10:53 Dose: 20 mg Guaifenesin (Robitussin Dm -) 10 ml PO Q6H PRN PRN Reason: COUGH Insulin Aspart (Novolog Vial Sliding Scale -) 1 vial SQ ACHS [facility]; Protocol Last Admin: 05/04/18 12:25 Dose: 4 units Isosorbide Mononitrate (Imdur -) 30 mg PO DAILY [facility] Last Admin: 05/04/18 10:53 Dose: 30 mg Meclizine HCl (Antivert -) 25 mg PO Q6H PRN PRN Reason: VERTIGO Methylprednisolone Sodium Succinate (Solu-Medrol -) 60 mg IVPB Q6H-IV [facility] Last Admin: 05/04/18 10:51 Dose: 60 mg Montelukast Sodium (Singulair -) 10 mg PO HS [facility] Last Admin: 05/03/18 21:15 Dose: 10 mg Mupirocin (Bactroban 2% Ointment -) 1 applic TP BID [facility] Last Admin: 05/04/18 11:16 Dose: Not Given Nebivolol (Bystolic -) 5 mg PO DAILY [facility] Last Admin: 05/04/18 11:58 Dose: 5 mg Nitroglycerin (Nitrostat -) 0.4 mg SL AM PRN PRN Reason: PAIN LEVEL 6-10 Oxycodone HCl (Roxicodone -) 5 mg PO Q8H PRN PRN Reason: PAIN LEVEL 7 - 10 Last Admin: 05/03/18 06:11 Dose: 5 mg Pantoprazole Sodium (Protonix -) 40 mg PO DAILY [facility] Last Admin: 05/04/18 10:53 Dose: 40 mg Potassium Chloride (K-Dur -) 10 meq PO BID [facility] Last Admin: 05/04/18 10:53 Dose: 10 meq Ranitidine HCl (Zantac -) 150 mg PO DAILY [facility] Last Admin: 05/04/18 10:53 Dose: 150 mg Ranolazine (Ranexa -) 500 mg PO BID [facility] Last Admin: 05/04/18 10:53 Dose: 500 mg Sodium Chloride ([place] Nasal [place] -) 2 spray NS TID [facility] Last Admin: 05/04/18 05:38 Dose: 2 spray Valsartan (Diovan -) 40 mg PO DAILY [facility] Last Admin: 05/04/18 10:53 Dose: 40 mg Verapamil HCl (Calan Sr -) 240 mg PO BID [facility] Last Admin: 05/04/18 10:53 Dose: 240 mg - Objective Vital Signs: Vital Signs Temperature 98.2 F 05/04/18 06:27 Pulse Rate 62 05/04/18 06:27 Respiratory Rate 20 05/04/18 06:27 Blood Pressure 143/73 05/04/18 10:00 O2 Sat by Pulse Oximetry (%) 97 05/03/18 21:00 Constitutional: Yes: No Distress, Calm Neck: Yes: Supple Cardiovascular: Yes: Regular Rate and Rhythm Respiratory: Yes: Regular, Cough, Diminished, On Nasal O2, SOB, Wheezes Gastrointestinal: Yes: Normal Bowel Sounds, Soft, Abdomen, Obese Edema: No Labs: CBC, BMP 05/04/18 06:30 05/04/18 06:30 INR, PTT INR Cancelled 04/29/18 15:44 Problem List - Problems (1) Shortness of breath Code(s): R06.02 - SHORTNESS OF BREATH (2) COPD exacerbation Code(s): J44.1 - CHRONIC OBSTRUCTIVE PULMONARY DISEASE W (ACUTE) EXACERBATION (3) Coronary artery disease Code(s): I25.10 - ATHSCL HEART DISEASE OF [place] CORONARY ARTERY W/O ANG PCTRS Qualifiers: Coronary Disease-Associated Artery/Lesion type: [place] artery [place] vs. transplanted heart: [place] heart Associated angina: without angina Qualified Code(s): I25.10 - Atherosclerotic heart disease of [place] coronary artery without angina pectoris (4) H/O carotid endarterectomy Code(s): Z98.890 - OTHER SPECIFIED POSTPROCEDURAL STATES (5) HTN (hypertension) Code(s): I10 - ESSENTIAL (PRIMARY) HYPERTENSION Qualifiers: Hypertension type: essential hypertension Qualified Code(s): I10 - Essential (primary) hypertension (6) History of myocardial infarction Code(s): I25.2 - OLD MYOCARDIAL INFARCTION (7) Hyperlipidemia Code(s): E78.5 - HYPERLIPIDEMIA, UNSPECIFIED Qualifiers: Hyperlipidemia type: pure hypercholesterolemia Qualified Code(s): E78.00 - Pure hypercholesterolemia, unspecified; E78.0 - Pure hypercholesterolemia (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 Diastolic dysfunction with resolved failure 2. Acute exacerbation of COPD, persistent wheeze/rhonchi 3. CAD post CT, angina pectoris 4. Systolic murmur, AV sclerosis rule out stenosis 5. HTN/HCVD 6. Hyperlipidemia 7. Bilateral carotid artery disease post right CEA 8. Mesenteric ischemia post intervention 9. PAD post intervention PLAN: 1. Continue Verapamil 240 bid with caution (consider decreasing dosage if hypotension persists) 2. Continue Bystolic 5 qd with caution 3. Continue Imdur 30 qd and Ranexa 500 bid 4. Continue Diovan 40 qd unless contraindicated with close monitoring or renal function 5. Continue Lipitor 80 qhs 6. Resume home oral Lasix dose 7. Continue Plavix 75 qd 9. 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 BD, empiric abx, IV steroids with GI protection, Singulair, O2 to keep Spo2 >90%
--- NOTE | 2018-05-04 15:41 | PN ---
Progress Note, Physician History of Present Illness: PULMONARY ALERT,STILL C/O SOB,CONGESTION - Current Medication List Current Medications: Active Medications Acetaminophen (Tylenol -) 650 mg PO Q6H PRN PRN Reason: FEVER Last Admin: 05/03/18 15:45 Dose: 650 mg Acetaminophen (Tylenol -) 325 mg PO Q8H PRN PRN Reason: PAIN LEVEL 7 - 10 Last Admin: 05/02/18 01:32 Dose: 325 mg Acetaminophen/Butalbital/Caffeine (Fioricet -) 1 tablet PO Q6H PRN PRN Reason: HEADACHE Al Hydroxide/Mg Hydroxide (Mylanta Oral Suspension -) 30 ml PO Q6H PRN PRN Reason: DYSPEPSIA Last Admin: 05/03/18 21:23 Dose: 30 ml Albuterol Sulfate (Ventolin 0.083% Nebulizer Soln -) 1 amp NEB Q4H PRN PRN Reason: SHORT OF BREATH/WHEEZING Albuterol/Ipratropium (Duoneb -) 1 amp NEB RQID [facility] Last Admin: 05/04/18 11:32 Dose: 1 amp Alprazolam (Xanax -) 0.25 mg PO Q12H PRN PRN Reason: ANXIETY Last Admin: 05/03/18 21:23 Dose: 0.25 mg Atorvastatin Calcium (Lipitor -) 80 mg PO [facility] Last Admin: 05/03/18 21:15 Dose: 80 mg Azithromycin (Zithromax -) 250 mg PO 0600 [facility] Last Admin: 05/04/18 05:37 Dose: 250 mg Budesonide/Formoterol Fumarate (Symbicort 160/4.5mcg -) 2 puff IH BID [facility] Last Admin: 05/04/18 10:59 Dose: 2 puff Clopidogrel Bisulfate (Plavix -) 75 mg PO DAILY [facility] Last Admin: 05/04/18 10:59 Dose: 75 mg Clotrimazole (Lotrimin 1% Cream -) 1 applic TP BID [facility] Last Admin: 05/04/18 10:54 Dose: Not Given Docusate Sodium (Colace -) 300 mg PO HS [facility] Last Admin: 05/03/18 21:15 Dose: 300 mg Fluticasone Propionate (Flonase -) 2 spray NS BID [facility] Last Admin: 05/04/18 10:59 Dose: 2 spray Folic Acid (Folic Acid -) 1 mg PO DAILY [facility] Last Admin: 05/04/18 10:53 Dose: 1 mg Furosemide (Lasix -) 20 mg PO DAILY [facility] Last Admin: 05/04/18 10:53 Dose: 20 mg Guaifenesin (Robitussin Dm -) 10 ml PO Q6H PRN PRN Reason: COUGH Insulin Aspart (Novolog Vial Sliding Scale -) 1 vial SQ ACHS [facility]; Protocol Last Admin: 05/04/18 12:25 Dose: 4 units Isosorbide Mononitrate (Imdur -) 30 mg PO DAILY [facility] Last Admin: 05/04/18 10:53 Dose: 30 mg Meclizine HCl (Antivert -) 25 mg PO Q6H PRN PRN Reason: VERTIGO Methylprednisolone Sodium Succinate (Solu-Medrol -) 60 mg IVPB Q6H-IV [facility] Last Admin: 05/04/18 10:51 Dose: 60 mg Montelukast Sodium (Singulair -) 10 mg PO HS [facility] Last Admin: 05/03/18 21:15 Dose: 10 mg Mupirocin (Bactroban 2% Ointment -) 1 applic TP BID [facility] Last Admin: 05/04/18 11:16 Dose: Not Given Nebivolol (Bystolic -) 5 mg PO DAILY [facility] Last Admin: 05/04/18 11:58 Dose: 5 mg Nitroglycerin (Nitrostat -) 0.4 mg SL AM PRN PRN Reason: PAIN LEVEL 6-10 Oxycodone HCl (Roxicodone -) 5 mg PO Q8H PRN PRN Reason: PAIN LEVEL 7 - 10 Last Admin: 05/03/18 06:11 Dose: 5 mg Pantoprazole Sodium (Protonix -) 40 mg PO DAILY [facility] Last Admin: 05/04/18 10:53 Dose: 40 mg Potassium Chloride (K-Dur -) 10 meq PO BID [facility] Last Admin: 05/04/18 10:53 Dose: 10 meq Ranitidine HCl (Zantac -) 150 mg PO DAILY [facility] Last Admin: 05/04/18 10:53 Dose: 150 mg Ranolazine (Ranexa -) 500 mg PO BID [facility] Last Admin: 05/04/18 10:53 Dose: 500 mg Sodium Chloride ([place] Nasal [place] -) 2 spray NS TID [facility] Last Admin: 05/04/18 14:43 Dose: 2 spray Valsartan (Diovan -) 40 mg PO DAILY [facility] Last Admin: 05/04/18 10:53 Dose: 40 mg Verapamil HCl (Calan Sr -) 240 mg PO BID [facility] Last Admin: 05/04/18 10:53 Dose: 240 mg - Objective Vital Signs: Vital Signs Temperature 98.2 F 05/04/18 06:27 Pulse Rate 62 05/04/18 06:27 Respiratory Rate 20 05/04/18 06:27 Blood Pressure 143/73 05/04/18 10:00 O2 Sat by Pulse Oximetry (%) 97 05/03/18 21:00 Constitutional: Yes: Well Nourished Eyes: Yes: WNL HENT: Yes: WNL Neck: Yes: WNL Cardiovascular: Yes: Regular Rate and Rhythm, S1, S2 Respiratory: Yes: Rhonchi (SCATTERED JAMAL RHONCHI) Gastrointestinal: Yes: Normal Bowel Sounds, Soft Extremities: Yes: WNL Edema: LLE: Trace, RLE: Trace Labs: CBC, BMP 05/04/18 06:30 05/04/18 06:30 INR, PTT INR Cancelled 04/29/18 15:44 Problem List - Problems (1) Diastolic dysfunction Code(s): I51.9 - HEART DISEASE, UNSPECIFIED (2) Lower extremity edema Code(s): R60.0 - LOCALIZED EDEMA (3) Shortness of breath Code(s): R06.02 - SHORTNESS OF BREATH (4) ASHD (arteriosclerotic heart disease) Code(s): I25.10 - ATHSCL HEART DISEASE OF [place] CORONARY ARTERY W/O ANG PCTRS (5) Anemia Code(s): D64.9 - ANEMIA, UNSPECIFIED (6) Sue esophagus Code(s): K22.70 - SUE'S ESOPHAGUS WITHOUT DYSPLASIA Qualifiers: Sue's esophagus type: with dysplasia of unspecified degree Qualified Code(s): K22.719 - Sue's esophagus with dysplasia, unspecified; K22.71 - Sue's esophagus with dysplasia (7) COPD exacerbation Code(s): J44.1 - CHRONIC OBSTRUCTIVE PULMONARY DISEASE W (ACUTE) EXACERBATION (8) HTN (hypertension) Code(s): I10 - ESSENTIAL (PRIMARY) HYPERTENSION Qualifiers: Hypertension type: essential hypertension Qualified Code(s): I10 - Essential (primary) hypertension (9) History of myocardial infarction Code(s): I25.2 - OLD MYOCARDIAL INFARCTION Assessment/Plan A/P Acute COPD Exacerbation LV Diastolic Dysfunction CAD HTN Hyperlipidemia PAD CKD - continue medrol 60mg q6h - inhaled bronchodilators standing and PRN - lasix - monitor urine output, creatinine - O2 to keep Spo2 >90% - DVT prophylaxis DR LEÓN
[2018-05-04] MEDS: DOCUSATE SODIUM 100 MG CAPSULE (FP) PO SCH (22:33)
[2018-05-04] MEDS: ALPRAZolam 0.25 MG TABLET PO PRN (22:35)
[2018-05-04] MEDS: MONTELUKAST NA 10 MG TABLET PO SCH (22:35)
[2018-05-04] MEDS: ATORVASTATIN CA 80 MG TABLET (FP) PO SCH (22:35)
[2018-05-05] MEDS: methylPREDNISolone NA SUCC 40 MG/1 ML VIAL IVPB SCH ×4 (03:57→21:27)
[2018-05-05] MEDS: AZITHROMYCIN 250 MG TABLET PO SCH (06:38)
[2018-05-05] MEDS: INSULIN SLIDING SCALE (NOVOLOG) 1 VIAL SQ SCH ×4 (06:38→21:28)
[2018-05-05] MEDS: SODIUM CHLORIDE NASAL SPRAY 44 ML BOTTLE NS SCH ×3 (06:38→21:28)
[2018-05-05] MEDS: ALBUTEROL SO4 2.5/IPRATROPIUM 0.5 INH SOL 3 ML VIAL.NEB. NEB SCH ×4 (07:51→19:26)
[2018-05-05 08:10] LABS: BASO % 0.1 % (0-2.0); EOS % 0.1 % (0-4.5); HEMATOCRIT 37.8 % (32.4-45.2); HEMOGLOBIN 12.4 GM/dL (10.7-15.3); LYMPH % 5.9 % (8-40); MCH 29.5 pg (25.7-33.7); MCHC 32.8 g/dl (32.0-36.0); MEAN CELL VOLUME 90.1 fl (80-96); MEAN PLT VOLUME 7.1 fl (7.5-11.1); MONO % 2.5 % (3.8-10.2); NEUT % 91.4 % (42.8-82.8); PLATELET COUNT 307 K/MM3 (134-434); RBC 4.19 M/mm3 (3.60-5.2); RDW 15.8 % (11.6-15.6); WHITE BLOOD COUNT 7.7 K/mm3 (4.0-10.0)
[2018-05-05 08:11] LABS: BLOOD UREA NITROGEN 25 mg/dL (7-18); CREATININE 0.7 mg/dL (0.55-1.3); GLUCOSE,RANDOM 126 mg/dL (74-106)
[2018-05-05 08:12] LABS: ANION GAP 6 MMOL/L (8-16); CHLORIDE 101 mmol/L (98-107); CO2 31 mmol/L (21-32); POTASSIUM 5.6 mmol/L (3.5-5.1); SODIUM 138 mmol/L (136-145)
--- NOTE | 2018-05-05 10:03 | PN ---
Progress Note (short form) - Note Progress Note: PULMONARY Breathing slightly better today. c/o sore throat. +dry cough and wheezing. Vital Signs Period Temp Pulse Resp BP Sys/Mann Pulse Ox Last 24 Hr 97.9 F-98.1 F 58-67 16-20 94-126/40-58 97 Gen: NAD at rest HEENT: +thrush Heart: RRR Lung: distant breath sounds, scattered wheeze Abd: soft, nontender Ext: distal edema CBC, BMP 05/05/18 06:30 05/05/18 06:30 Active Medications Acetaminophen (Tylenol -) 650 mg PO Q6H PRN PRN Reason: FEVER Last Admin: 05/03/18 15:45 Dose: 650 mg Acetaminophen (Tylenol -) 325 mg PO Q8H PRN PRN Reason: PAIN LEVEL 7 - 10 Last Admin: 05/02/18 01:32 Dose: 325 mg Acetaminophen/Butalbital/Caffeine (Fioricet -) 1 tablet PO Q6H PRN PRN Reason: HEADACHE Al Hydroxide/Mg Hydroxide (Mylanta Oral Suspension -) 30 ml PO Q6H PRN PRN Reason: DYSPEPSIA Last Admin: 05/03/18 21:23 Dose: 30 ml Albuterol Sulfate (Ventolin 0.083% Nebulizer Soln -) 1 amp NEB Q4H PRN PRN Reason: SHORT OF BREATH/WHEEZING Albuterol/Ipratropium (Duoneb -) 1 amp NEB RQID [facility] Last Admin: 05/05/18 07:51 Dose: 1 amp Alprazolam (Xanax -) 0.25 mg PO Q12H PRN PRN Reason: ANXIETY Last Admin: 05/04/18 22:35 Dose: 0.25 mg Atorvastatin Calcium (Lipitor -) 80 mg PO HS [facility] Last Admin: 05/04/18 22:35 Dose: 80 mg Azithromycin (Zithromax -) 250 mg PO 0600 [facility] Last Admin: 05/05/18 06:38 Dose: 250 mg Budesonide/Formoterol Fumarate (Symbicort 160/4.5mcg -) 2 puff IH BID [facility] Last Admin: 05/04/18 22:32 Dose: 2 puff Clopidogrel Bisulfate (Plavix -) 75 mg PO DAILY [facility] Last Admin: 05/04/18 10:59 Dose: 75 mg Clotrimazole (Lotrimin 1% Cream -) 1 applic TP BID [facility] Last Admin: 05/04/18 22:35 Dose: 1 applic Docusate Sodium (Colace -) 300 mg PO HS [facility] Last Admin: 05/04/18 22:33 Dose: 300 mg Fluticasone Propionate (Flonase -) 2 spray NS BID [facility] Last Admin: 05/04/18 22:32 Dose: 2 spray Folic Acid (Folic Acid -) 1 mg PO DAILY [facility] Last Admin: 05/04/18 10:53 Dose: 1 mg Furosemide (Lasix -) 20 mg PO DAILY [facility] Last Admin: 05/04/18 10:53 Dose: 20 mg Guaifenesin (Robitussin Dm -) 10 ml PO Q6H PRN PRN Reason: COUGH Insulin Aspart (Novolog Vial Sliding Scale -) 1 vial SQ [facility]; Protocol Last Admin: 05/05/18 06:38 Dose: Not Given Isosorbide Mononitrate (Imdur -) 30 mg PO DAILY [facility] Last Admin: 05/04/18 10:53 Dose: 30 mg Meclizine HCl (Antivert -) 25 mg PO Q6H PRN PRN Reason: VERTIGO Methylprednisolone Sodium Succinate (Solu-Medrol -) 60 mg IVPB Q6H-IV [facility] Last Admin: 05/05/18 03:57 Dose: 60 mg Montelukast Sodium (Singulair -) 10 mg PO HS [facility] Last Admin: 05/04/18 22:35 Dose: 10 mg Mupirocin (Bactroban 2% Ointment -) 1 applic TP BID [facility] Last Admin: 05/04/18 22:34 Dose: 1 applic Nebivolol (Bystolic -) 5 mg PO DAILY [facility] Last Admin: 05/04/18 11:58 Dose: 5 mg Nitroglycerin (Nitrostat -) 0.4 mg SL AM PRN PRN Reason: PAIN LEVEL 6-10 Oxycodone HCl (Roxicodone -) 5 mg PO Q8H PRN PRN Reason: PAIN LEVEL 7 - 10 Last Admin: 05/03/18 06:11 Dose: 5 mg Pantoprazole Sodium (Protonix -) 40 mg PO DAILY [facility] Last Admin: 05/04/18 10:53 Dose: 40 mg Potassium Chloride (K-Dur -) 10 meq PO BID [facility] Last Admin: 05/04/18 22:34 Dose: 10 meq Ranitidine HCl (Zantac -) 150 mg PO DAILY [facility] Last Admin: 05/04/18 10:53 Dose: 150 mg Ranolazine (Ranexa -) 500 mg PO BID [facility] Last Admin: 05/04/18 22:34 Dose: 500 mg Sodium Chloride ([place] Nasal [place] -) 2 spray NS TID [facility] Last Admin: 05/05/18 06:38 Dose: 2 spray Valsartan (Diovan -) 40 mg PO DAILY [facility] Last Admin: 05/04/18 10:53 Dose: 40 mg Verapamil HCl (Calan Sr -) 240 mg PO BID [facility] Last Admin: 05/04/18 22:34 Dose: 240 mg A/P Acute COPD Exacerbation LV Diastolic Dysfunction CAD HTN Hyperlipidemia PAD CKD Thrush - continue medrol, will decrease to 40mg q6h - inhaled bronchodilators standing and PRN - start nystatin swish/swallow - PO lasix - monitor urine output, creatinine - O2 to keep Spo2 >90% - DVT prophylaxis
--- NOTE | 2018-05-05 10:04 | PN ---
Progress Note, Physician History of Present Illness: Improvement in cough, dyspnea, wheeze, LE edema has resolved. - Current Medication List Current Medications: Active Medications Acetaminophen (Tylenol -) 650 mg PO Q6H PRN PRN Reason: FEVER Last Admin: 05/03/18 15:45 Dose: 650 mg Acetaminophen (Tylenol -) 325 mg PO Q8H PRN PRN Reason: PAIN LEVEL 7 - 10 Last Admin: 05/02/18 01:32 Dose: 325 mg Acetaminophen/Butalbital/Caffeine (Fioricet -) 1 tablet PO Q6H PRN PRN Reason: HEADACHE Al Hydroxide/Mg Hydroxide (Mylanta Oral Suspension -) 30 ml PO Q6H PRN PRN Reason: DYSPEPSIA Last Admin: 05/03/18 21:23 Dose: 30 ml Albuterol Sulfate (Ventolin 0.083% Nebulizer Soln -) 1 amp NEB Q4H PRN PRN Reason: SHORT OF BREATH/WHEEZING Albuterol/Ipratropium (Duoneb -) 1 amp NEB RQID [facility] Last Admin: 05/05/18 07:51 Dose: 1 amp Alprazolam (Xanax -) 0.25 mg PO Q12H PRN PRN Reason: ANXIETY Last Admin: 05/04/18 22:35 Dose: 0.25 mg Atorvastatin Calcium (Lipitor -) 80 mg PO [facility] Last Admin: 05/04/18 22:35 Dose: 80 mg Azithromycin (Zithromax -) 250 mg PO 0600 [facility] Last Admin: 05/05/18 06:38 Dose: 250 mg Budesonide/Formoterol Fumarate (Symbicort 160/4.5mcg -) 2 puff IH BID [facility] Last Admin: 05/04/18 22:32 Dose: 2 puff Clopidogrel Bisulfate (Plavix -) 75 mg PO DAILY [facility] Last Admin: 05/04/18 10:59 Dose: 75 mg Clotrimazole (Lotrimin 1% Cream -) 1 applic TP BID [facility] Last Admin: 05/04/18 22:35 Dose: 1 applic Docusate Sodium (Colace -) 300 mg PO [facility] Last Admin: 05/04/18 22:33 Dose: 300 mg Fluticasone Propionate (Flonase -) 2 spray NS BID [facility] Last Admin: 05/04/18 22:32 Dose: 2 spray Folic Acid (Folic Acid -) 1 mg PO DAILY [facility] Last Admin: 05/04/18 10:53 Dose: 1 mg Furosemide (Lasix -) 20 mg PO DAILY [facility] Last Admin: 05/04/18 10:53 Dose: 20 mg Guaifenesin (Robitussin Dm -) 10 ml PO Q6H PRN PRN Reason: COUGH Insulin Aspart (Novolog Vial Sliding Scale -) 1 vial SQ ACHS [facility]; Protocol Last Admin: 05/05/18 06:38 Dose: Not Given Isosorbide Mononitrate (Imdur -) 30 mg PO DAILY [facility] Last Admin: 05/04/18 10:53 Dose: 30 mg Meclizine HCl (Antivert -) 25 mg PO Q6H PRN PRN Reason: VERTIGO Methylprednisolone Sodium Succinate (Solu-Medrol -) 60 mg IVPB Q6H-IV [facility] Last Admin: 05/05/18 03:57 Dose: 60 mg Montelukast Sodium (Singulair -) 10 mg PO HS [facility] Last Admin: 05/04/18 22:35 Dose: 10 mg Mupirocin (Bactroban 2% Ointment -) 1 applic TP BID [facility] Last Admin: 05/04/18 22:34 Dose: 1 applic Nebivolol (Bystolic -) 5 mg PO DAILY [facility] Last Admin: 05/04/18 11:58 Dose: 5 mg Nitroglycerin (Nitrostat -) 0.4 mg SL AM PRN PRN Reason: PAIN LEVEL 6-10 Nystatin (Nystatin Oral Suspension -) 500,000 units PO Q6HPO [facility] Oxycodone HCl (Roxicodone -) 5 mg PO Q8H PRN PRN Reason: PAIN LEVEL 7 - 10 Last Admin: 05/03/18 06:11 Dose: 5 mg Pantoprazole Sodium (Protonix -) 40 mg PO DAILY [facility] Last Admin: 05/04/18 10:53 Dose: 40 mg Potassium Chloride (K-Dur -) 10 meq PO BID [facility] Last Admin: 05/04/18 22:34 Dose: 10 meq Ranitidine HCl (Zantac -) 150 mg PO DAILY [facility] Last Admin: 05/04/18 10:53 Dose: 150 mg Ranolazine (Ranexa -) 500 mg PO BID [facility] Last Admin: 05/04/18 22:34 Dose: 500 mg Sodium Chloride ([place] Nasal [place] -) 2 spray NS TID [facility] Last Admin: 05/05/18 06:38 Dose: 2 spray Valsartan (Diovan -) 40 mg PO DAILY [facility] Last Admin: 05/04/18 10:53 Dose: 40 mg Verapamil HCl (Calan Sr -) 240 mg PO BID [facility] Last Admin: 05/04/18 22:34 Dose: 240 mg - Objective Vital Signs: Vital Signs Temperature 97.9 F 05/05/18 06:28 Pulse Rate 63 05/05/18 06:28 Respiratory Rate 20 05/05/18 06:28 Blood Pressure 126/56 L 05/05/18 06:28 O2 Sat by Pulse Oximetry (%) 97 05/04/18 21:00 Constitutional: Yes: No Distress, Calm Neck: Yes: Supple Cardiovascular: Yes: Regular Rate and Rhythm Respiratory: Yes: Regular, Cough, Diminished, On Nasal O2, Wheezes Gastrointestinal: Yes: Normal Bowel Sounds, Soft Edema: No Labs: CBC, BMP 05/05/18 06:30 05/05/18 06:30 INR, PTT INR Cancelled 04/29/18 15:44 - ....Imaging Ultrasound: Report Reviewed ([facility]: No sig stenosis) Problem List - Problems (1) Shortness of breath Code(s): R06.02 - SHORTNESS OF BREATH (2) COPD exacerbation Code(s): J44.1 - CHRONIC OBSTRUCTIVE PULMONARY DISEASE W (ACUTE) EXACERBATION (3) Coronary artery disease Code(s): I25.10 - ATHSCL HEART DISEASE OF [place] CORONARY ARTERY W/O ANG PCTRS Qualifiers: Coronary Disease-Associated Artery/Lesion type: [place] artery [place] vs. transplanted heart: [place] heart Associated angina: without angina Qualified Code(s): I25.10 - Atherosclerotic heart disease of [place] coronary artery without angina pectoris (4) H/O carotid endarterectomy Code(s): Z98.890 - OTHER SPECIFIED POSTPROCEDURAL STATES (5) HTN (hypertension) Code(s): I10 - ESSENTIAL (PRIMARY) HYPERTENSION Qualifiers: Hypertension type: essential hypertension Qualified Code(s): I10 - Essential (primary) hypertension (6) History of myocardial infarction Code(s): I25.2 - OLD MYOCARDIAL INFARCTION (7) Hyperlipidemia Code(s): E78.5 - HYPERLIPIDEMIA, UNSPECIFIED Qualifiers: Hyperlipidemia type: pure hypercholesterolemia Qualified Code(s): E78.00 - Pure hypercholesterolemia, unspecified; E78.0 - Pure hypercholesterolemia (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 Diastolic dysfunction with resolved failure 2. Acute exacerbation of COPD improving 3. CAD post LA, angina pectoris 4. Systolic murmur, AV sclerosis rule out stenosis 5. HTN/HCVD 6. Hyperlipidemia 7. Bilateral carotid artery disease post right CEA 8. Mesenteric ischemia post intervention 9. PAD post intervention w/o sig stenosis 10. Hyperkalemia 11. H/o left frontal stroke PLAN: 1. Continue Verapamil 240 bid with caution (consider decreasing dosage if hypotension persists) 2. Continue Bystolic 5 qd with caution 3. Continue Imdur 30 qd and Ranexa 500 bid 4. Continue Diovan 40 qd with monitor K 5. Continue Lipitor 80 qhs 6. Resume home oral Lasix dose 20 po qd 7. Continue Plavix 75 qd, resume ASA 81 qd per neuro recs 9. Follow up with Dr. Luis Eduardo Manning post D/C, patient's rebar bender 10. BD, empiric abx, IV steroid taper with GI protection, Singulair, O2 to keep Spo2 >90%, DVT prophylaxis
--- NOTE | 2018-05-05 10:16 | PN ---
Progress Note, Physician Chief Complaint: still with SOB and wheezing intermittently; had some GERD also better with mylanta; was supposed to see GI and ENT outpt but did not go, said she will go after DC home - Current Medication List Current Medications: Active Medications Acetaminophen (Tylenol -) 650 mg PO Q6H PRN PRN Reason: FEVER Last Admin: 05/03/18 15:45 Dose: 650 mg Acetaminophen (Tylenol -) 325 mg PO Q8H PRN PRN Reason: PAIN LEVEL 7 - 10 Last Admin: 05/02/18 01:32 Dose: 325 mg Acetaminophen/Butalbital/Caffeine (Fioricet -) 1 tablet PO Q6H PRN PRN Reason: HEADACHE Al Hydroxide/Mg Hydroxide (Mylanta Oral Suspension -) 30 ml PO Q6H PRN PRN Reason: DYSPEPSIA Last Admin: 05/03/18 21:23 Dose: 30 ml Albuterol Sulfate (Ventolin 0.083% Nebulizer Soln -) 1 amp NEB Q4H PRN PRN Reason: SHORT OF BREATH/WHEEZING Albuterol/Ipratropium (Duoneb -) 1 amp NEB RQID [facility] Last Admin: 05/05/18 07:51 Dose: 1 amp Alprazolam (Xanax -) 0.25 mg PO Q12H PRN PRN Reason: ANXIETY Last Admin: 05/04/18 22:35 Dose: 0.25 mg Aspirin (Asa -) 81 mg PO DAILY [facility] Atorvastatin Calcium (Lipitor -) 80 mg PO [facility] Last Admin: 05/04/18 22:35 Dose: 80 mg Azithromycin (Zithromax -) 250 mg PO 0600 [facility] Last Admin: 05/05/18 06:38 Dose: 250 mg Budesonide/Formoterol Fumarate (Symbicort 160/4.5mcg -) 2 puff IH BID [facility] Last Admin: 05/04/18 22:32 Dose: 2 puff Clopidogrel Bisulfate (Plavix -) 75 mg PO DAILY [facility] Last Admin: 05/04/18 10:59 Dose: 75 mg Clotrimazole (Lotrimin 1% Cream -) 1 applic TP BID [facility] Last Admin: 05/04/18 22:35 Dose: 1 applic Docusate Sodium (Colace -) 300 mg PO [facility] Last Admin: 05/04/18 22:33 Dose: 300 mg Fluticasone Propionate (Flonase -) 2 spray NS BID [facility] Last Admin: 05/04/18 22:32 Dose: 2 spray Folic Acid (Folic Acid -) 1 mg PO DAILY [facility] Last Admin: 05/04/18 10:53 Dose: 1 mg Furosemide (Lasix -) 20 mg PO DAILY [facility] Last Admin: 05/04/18 10:53 Dose: 20 mg Guaifenesin (Robitussin Dm -) 10 ml PO Q6H PRN PRN Reason: COUGH Insulin Aspart (Novolog Vial Sliding Scale -) 1 vial SQ ACHS [facility]; Protocol Last Admin: 05/05/18 06:38 Dose: Not Given Isosorbide Mononitrate (Imdur -) 30 mg PO DAILY [facility] Last Admin: 05/04/18 10:53 Dose: 30 mg Meclizine HCl (Antivert -) 25 mg PO Q6H PRN PRN Reason: VERTIGO Methylprednisolone Sodium Succinate (Solu-Medrol -) 60 mg IVPB Q6H-IV [facility] Last Admin: 05/05/18 03:57 Dose: 60 mg Montelukast Sodium (Singulair -) 10 mg PO HS [facility] Last Admin: 05/04/18 22:35 Dose: 10 mg Mupirocin (Bactroban 2% Ointment -) 1 applic TP BID [facility] Last Admin: 05/04/18 22:34 Dose: 1 applic Nebivolol (Bystolic -) 5 mg PO DAILY [facility] Last Admin: 05/04/18 11:58 Dose: 5 mg Nitroglycerin (Nitrostat -) 0.4 mg SL AM PRN PRN Reason: PAIN LEVEL 6-10 Nystatin (Nystatin Oral Suspension -) 500,000 units PO Q6HPO [facility] Oxycodone HCl (Roxicodone -) 5 mg PO Q8H PRN PRN Reason: PAIN LEVEL 7 - 10 Last Admin: 05/03/18 06:11 Dose: 5 mg Pantoprazole Sodium (Protonix -) 40 mg PO DAILY [facility] Last Admin: 05/04/18 10:53 Dose: 40 mg Potassium Chloride (K-Dur -) 10 meq PO BID [facility] Last Admin: 05/04/18 22:34 Dose: 10 meq Ranitidine HCl (Zantac -) 150 mg PO DAILY [facility] Last Admin: 05/04/18 10:53 Dose: 150 mg Ranolazine (Ranexa -) 500 mg PO BID [facility] Last Admin: 05/04/18 22:34 Dose: 500 mg Sodium Chloride ([place] Nasal [place] -) 2 spray NS TID [facility] Last Admin: 05/05/18 06:38 Dose: 2 spray Valsartan (Diovan -) 40 mg PO DAILY [facility] Last Admin: 05/04/18 10:53 Dose: 40 mg Verapamil HCl (Calan Sr -) 240 mg PO BID [facility] Last Admin: 05/04/18 22:34 Dose: 240 mg - Objective Vital Signs: Vital Signs Temperature 97.9 F 05/05/18 06:28 Pulse Rate 63 05/05/18 06:28 Respiratory Rate 20 05/05/18 06:28 Blood Pressure 126/56 L 05/05/18 06:28 O2 Sat by Pulse Oximetry (%) 97 05/04/18 21:00 Constitutional: Yes: No Distress, Calm Eyes: Yes: Conjunctiva Clear HENT: Yes: Atraumatic Neck: Yes: Supple Cardiovascular: Yes: Regular Rate and Rhythm Respiratory: Yes: Wheezes Gastrointestinal: No: Distention, Tenderness Genitourinary: No: CVA Tenderness - Left, CVA Tenderness - Right, Hematuria Musculoskeletal: No: Joint Stiffness, Joint Swelling Extremities: No: Cold, Cool, Cyanosis Edema: No Integumentary: No: Rash, Venous Stasis Changes Neurological: Yes: WNL, Alert, Oriented ...Motor Strength: WNL Psychiatric: Yes: WNL, Alert, Oriented. No: Agitated, Suicidal Ideation Labs: CBC, BMP 05/05/18 06:30 05/05/18 06:30 INR, PTT INR Cancelled 04/29/18 15:44 - ....Imaging Other: Report Reviewed Assessment/Plan The patient is a 62 year old female with past medical history significant for CAD, HTN, [place] s/p angioplasty 2012, L. ventricular end diastolic dysfunction, PVD , asthma, COPD, Mesenteric ischemia treated with SMA bypass 2011, and Renal Failure (required temporary dialysis 2011) admitted with shortness of breath and legs swelling. Acute COPD and CHF exac cardiology and pulmonary f/u neurology and vascular sx f/u IV lasix iv steroids nebs daily weight; check labs check feet xrays and PVR tests and consults reviewed with pt falls PFX d/w pt and staff
[2018-05-05] MEDS ORDERED: PT OWN MED DRAWER 7, Y5N ONE ×3 (10:20→11:58)
--- NOTE | 2018-05-05 10:21 | PN ---
Progress Note (short form) - Note Progress Note: Neurology History of Present Illness 62 year old female with past medical history significant for CAD, HTN, [place] s/p angioplasty 2011, L. ventricular end diastolic dysfunction, PVD, asthma, COPD, Mesenteric ischemia treated with SMA bypass 2011, and Renal Failure (required temporary dialysis 2011) presents to the emergency department with shortness of breath and leg swelling. The patient was sent to the ED by PCP, stated at the office patient had elevated BP of 170/80 and elevated heart rate. The patient presented with 1 week of bilateral leg swelling with pain, right leg greater than left. Legs did not appear as swollen during my encounter and I inquired about DM and symptoms don't seem neuropathic. Reports discomfort in the "bone" and thus may benefit from Podiatry or Ortho eval. However, does report R eye visual field deficit which is acute on chronic. States she was seen by eye doctor and likely 2/2 to cataracts. States in the past, she had a clot go from her heart to her eye. CT head completed and reviewed and discussed. Small L frontal infarct noted. The patient states she is on plavix but not on ASA. Reports she was told to stop ASA for a procedure in Jul but not restarted. I would recommend restarting it for CVA prevention if no contraindications. Is on max dose statin which she continues to take. Also has tension type headaches, likely due to elevated BP and being in hospital. Fioricet to be taken as needed. Lastly, described dizziness that's chronic. Discussed avoiding quick head movements as she gets room spinning sensation in the AM when she's moving her head in bed. Added Meclezine. Discussed hydration can also prevent acute episodes of vertigo. Neurologically stable at this time. Allergies/Adverse Reactions: Allergies Allergy/AdvReac Type Severity Reaction Status Date / Time No Known Drug Allergies Allergy Verified 04/29/18 15:06 Active Medications Acetaminophen (Tylenol -) 650 mg PO Q6H PRN PRN Reason: FEVER Last Admin: 05/03/18 15:45 Dose: 650 mg Acetaminophen (Tylenol -) 325 mg PO Q8H PRN PRN Reason: PAIN LEVEL 7 - 10 Last Admin: 05/02/18 01:32 Dose: 325 mg Acetaminophen/Butalbital/Caffeine (Fioricet -) 1 tablet PO Q6H PRN PRN Reason: HEADACHE Al Hydroxide/Mg Hydroxide (Mylanta Oral Suspension -) 30 ml PO Q6H PRN PRN Reason: DYSPEPSIA Last Admin: 05/03/18 21:23 Dose: 30 ml Albuterol Sulfate (Ventolin 0.083% Nebulizer Soln -) 1 amp NEB Q4H PRN PRN Reason: SHORT OF BREATH/WHEEZING Albuterol/Ipratropium (Duoneb -) 1 amp NEB RQID [facility] Last Admin: 05/05/18 07:51 Dose: 1 amp Alprazolam (Xanax -) 0.25 mg PO Q12H PRN PRN Reason: ANXIETY Last Admin: 05/04/18 22:35 Dose: 0.25 mg Aspirin (Asa -) 81 mg PO DAILY [facility] Atorvastatin Calcium (Lipitor -) 80 mg PO HS [facility] Last Admin: 05/04/18 22:35 Dose: 80 mg Azithromycin (Zithromax -) 250 mg PO 0600 [facility] Last Admin: 05/05/18 06:38 Dose: 250 mg Budesonide/Formoterol Fumarate (Symbicort 160/4.5mcg -) 2 puff IH BID [facility] Last Admin: 05/04/18 22:32 Dose: 2 puff Clopidogrel Bisulfate (Plavix -) 75 mg PO DAILY [facility] Last Admin: 05/04/18 10:59 Dose: 75 mg Clotrimazole (Lotrimin 1% Cream -) 1 applic TP BID [facility] Last Admin: 05/04/18 22:35 Dose: 1 applic Docusate Sodium (Colace -) 300 mg PO HS [facility] Last Admin: 05/04/18 22:33 Dose: 300 mg Fluticasone Propionate (Flonase -) 2 spray NS BID [facility] Last Admin: 05/04/18 22:32 Dose: 2 spray Folic Acid (Folic Acid -) 1 mg PO DAILY [facility] Last Admin: 05/04/18 10:53 Dose: 1 mg Furosemide (Lasix -) 20 mg PO DAILY [facility] Last Admin: 05/04/18 10:53 Dose: 20 mg Guaifenesin (Robitussin Dm -) 10 ml PO Q6H PRN PRN Reason: COUGH Insulin Aspart (Novolog Vial Sliding Scale -) 1 vial SQ ACHS [facility]; Protocol Last Admin: 05/05/18 06:38 Dose: Not Given Isosorbide Mononitrate (Imdur -) 30 mg PO DAILY [facility] Last Admin: 05/04/18 10:53 Dose: 30 mg Meclizine HCl (Antivert -) 25 mg PO Q6H PRN PRN Reason: VERTIGO Methylprednisolone Sodium Succinate (Solu-Medrol -) 40 mg IVPB Q6H-IV [facility] Montelukast Sodium (Singulair -) 10 mg PO HS [facility] Last Admin: 05/04/18 22:35 Dose: 10 mg Mupirocin (Bactroban 2% Ointment -) 1 applic TP BID [facility] Last Admin: 05/04/18 22:34 Dose: 1 applic Nebivolol (Bystolic -) 5 mg PO DAILY [facility] Last Admin: 05/04/18 11:58 Dose: 5 mg Nitroglycerin (Nitrostat -) 0.4 mg SL AM PRN PRN Reason: PAIN LEVEL 6-10 Nystatin (Nystatin Oral Suspension -) 500,000 units PO Q6HPO [facility] Oxycodone HCl (Roxicodone -) 5 mg PO Q8H PRN PRN Reason: PAIN LEVEL 7 - 10 Last Admin: 05/03/18 06:11 Dose: 5 mg Pantoprazole Sodium (Protonix -) 40 mg PO DAILY [facility] Last Admin: 05/04/18 10:53 Dose: 40 mg Potassium Chloride (K-Dur -) 10 meq PO BID [facility] Last Admin: 05/04/18 22:34 Dose: 10 meq Ranitidine HCl (Zantac -) 150 mg PO DAILY [facility] Last Admin: 05/04/18 10:53 Dose: 150 mg Ranolazine (Ranexa -) 500 mg PO BID [facility] Last Admin: 05/04/18 22:34 Dose: 500 mg Sodium Chloride ([place] Nasal Joy -) 2 spray NS TID [facility] Last Admin: 05/05/18 06:38 Dose: 2 spray Valsartan (Diovan -) 40 mg PO DAILY [facility] Last Admin: 05/04/18 10:53 Dose: 40 mg Verapamil HCl (Calan Sr -) 240 mg PO BID [facility] Last Admin: 05/04/18 22:34 Dose: 240 mg *Physical Exam Vital Signs Period Temp Pulse Resp BP Sys/Mann Pulse Ox Last 24 Hr 97.9 F-98.1 F 58-67 16-20 94-126/40-58 97 Gen: Awake, alert, responds to questions Card: RRR, nml S1,S2 Resp: B/L wheezing Abdomen: Soft, nontender, bowel sounds active Musculoskeletal: Adequate range of motion without significant deformity Head atraumatic and normocephalic CN: PERRL, EOMI intact, no apparent facial droop, no abnormalities in facial sensation, palate elevates, uvula and tongue midline Motor: Full strength to confrontation in upper and lower extermities proximally and distally. Tone normal throughout Sensory: Decresed LT in distal lower ext Reflexes: 2+ biceps, brachioradialis, patellar, achillies Coordination: Intact on [id number] testing Gait: Slightly antalgic CBCD WBC 7.7 K/mm3 (4.0-10.0) 05/05/18 06:30 RBC 4.19 M/mm3 (3.60-5.2) 05/05/18 06:30 Hgb 12.4 GM/dL (10.7-15.3) 05/05/18 06:30 Hct 37.8 % (32.4-45.2) 05/05/18 06:30 MCV 90.1 fl (80-96) 05/05/18 06:30 MCHC 32.8 g/dl (32.0-36.0) 05/05/18 06:30 RDW 15.8 % (11.6-15.6) H 05/05/18 06:30 Plt Count 307 K/MM3 (134-434) 05/05/18 06:30 MPV 7.1 fl (7.5-11.1) L 05/05/18 06:30 CMP Sodium 138 mmol/L (136-145) 05/05/18 06:30 Potassium 5.6 mmol/L (3.5-5.1) H 05/05/18 06:30 Chloride 101 mmol/L (98-107) 05/05/18 06:30 Carbon Dioxide 31 mmol/L (21-32) 05/05/18 06:30 Anion Gap 6 MMOL/L (8-16) L 05/05/18 06:30 BUN 25 mg/dL (7-18) H 05/05/18 06:30 Creatinine 0.7 mg/dL (0.55-1.3) 05/05/18 06:30 Creat Clearance w eGFR > 60 (>60) 05/05/18 06:30 Random Glucose 126 mg/dL (74-106) H 05/05/18 06:30 Calcium 9.0 mg/dL (8.5-10.1) 05/05/18 06:30 Total Bilirubin 0.3 mg/dL (0.2-1) 05/04/18 06:30 AST 10 U/L (15-37) L 05/04/18:30 ALT 21 U/L (13-61) 05/04/18:30 Alkaline Phosphatase 69 U/L (45-117) 05/04/18:30 Total Protein 6.2 g/dl (6.4-8.2) L 05/04/18:30 Albumin 3.2 g/dl (3.4-5.0) L 05/04/18:30 CARDIAC ENZYMES Creatine Kinase 73 IU/L (26-192) 04/30/18:10 Troponin I < 0.02 ng/ml (0.00-0.05) 04/30/18 06:10 Plan: 62 year old female with past medical history significant for CAD, HTN, [place] s/p angioplasty 2011, L. ventricular end diastolic dysfunction, PVD, asthma, COPD, Mesenteric ischemia treated with SMA bypass 2011, and Renal Failure (required temporary dialysis 2011) presents to the emergency department with shortness of breath and leg swelling. The patient was sent to the ED by PCP, stated at the office patient had elevated BP of 170/80 and elevated heart rate. The patient presented with 1 week of bilateral leg swelling with pain, right leg greater than left, tension headaches, dizziness, and R visual field deficits. Ct head reviewed and discussed On plavix, if no Contraindication, recommended restarting ASA 81mg, will defer to PCP Continue Statin 80mg Monitor blood pressure, maintain normotensive range Fioricet prescribed for headaches Vision possibly due to cataracts, no occipital infarct on CT head, reassurance provided Meclezine added for dizziness Avoid sudden head movements Discussed hydration can also prevent acute episodes of vertigo. Consider Ortho/podiatry regarding foot pain Does not seem neuropathic Fall precautions discussed Neurologically stable
[2018-05-05] MEDS: VALSARTAN 40 MG TABLET (FP) PO SCH (10:33)
[2018-05-05] MEDS: MUPIROCIN 2% TOPICAL OINTMENT 22 GM TUBE TP SCH ×2 (10:33→21:28)
[2018-05-05] MEDS: ISOSORBIDE MONONITRATE 30 MG TAB.SR.24H (FP) PO SCH (10:33)
[2018-05-05] MEDS: CLOPIDOGREL BISULFATE 75 MG TABLET (FP) PO SCH (10:33)
[2018-05-05] MEDS: PANTOPRAZOLE 40 MG TABLET (FP) PO SCH (10:33)
[2018-05-05] MEDS: RANITIDINE HCL 150 MG TABLET (FP) PO SCH (10:33)
[2018-05-05] MEDS: POTASSIUM CHLORIDE TABS 10 MEQ TABLET.ER (FP) PO SCH ×2 (10:33→21:26)
[2018-05-05] MEDS: NEBIVOLOL 5 MG TABLET (FP) PO SCH (10:33)
[2018-05-05] MEDS: VERAPAMIL HCL 240 MG E.R. TABLET (FP) PO SCH ×2 (10:33→21:25)
[2018-05-05] MEDS: FOLIC ACID 1 MG TABLET (FP) PO SCH (10:33)
[2018-05-05] MEDS: FLUTICASONE PROP 0.05% 16 GM NASAL SPRAY NS SCH ×2 (10:34→21:38)
[2018-05-05] MEDS: ASPIRIN 81 MG CHEWABLE TABLETS PO SCH (10:34)
[2018-05-05] MEDS: FUROSEMIDE 20 MG TABLET (FP) PO SCH (10:34)
[2018-05-05] MEDS: RANOLAZINE E.R. 500 MG TABLET (FP) PO SCH ×2 (10:34→21:27)
[2018-05-05] MEDS: BUDESONIDE/FORMETEROL FUMARATE 160/4.5 mcg INHALER IH SCH ×2 (10:46→21:38)
[2018-05-05] MEDS: ACETAMINOPHEN 325 MG TABLET (FP) PO PRN (10:48)
[2018-05-05 11:12] LABS: ANISOCYTOSIS 3+; MACROCYTOSIS 0; PLATELET ESTIMATE NORMAL; ROULEAU 1+
[2018-05-05] MEDS: CLOTRIMAZOLE 1% CREAM 15 GM TUBE TP SCH ×2 (11:12→21:29)
[2018-05-05] MEDS: NYSTATIN 500,000 UNITS/5 ML SUSPENSION PO SCH ×2 (12:28→17:34)
[2018-05-05 16:33] VITALS: BMI 28.1
[2018-05-05] MEDS: DOCUSATE SODIUM 100 MG CAPSULE (FP) PO SCH (21:26)
[2018-05-05] MEDS: ATORVASTATIN CA 80 MG TABLET (FP) PO SCH (21:26)
[2018-05-05] MEDS: MONTELUKAST NA 10 MG TABLET PO SCH (21:27)
[2018-05-05] MEDS: ALPRAZolam 0.25 MG TABLET PO PRN (21:37)
[2018-05-06] MEDS: methylPREDNISolone NA SUCC 40 MG/1 ML VIAL IVPB SCH ×4 (02:30→21:10)
[2018-05-06] MEDS: AZITHROMYCIN 250 MG TABLET PO SCH (06:17)
[2018-05-06] MEDS: INSULIN SLIDING SCALE (NOVOLOG) 1 VIAL SQ SCH ×4 (06:17→21:24)
[2018-05-06] MEDS: SODIUM CHLORIDE NASAL SPRAY 44 ML BOTTLE NS SCH ×3 (06:17→21:14)
[2018-05-06] MEDS: NYSTATIN 500,000 UNITS/5 ML SUSPENSION PO SCH ×5 (06:18→23:01)
[2018-05-06 07:52] LABS: ANION GAP 8 MMOL/L (8-16); BLOOD UREA NITROGEN 27 mg/dL (7-18); CALCIUM 8.3 mg/dL (8.5-10.1); CHLORIDE 102 mmol/L (98-107); CO2 29 mmol/L (21-32); CREATININE 0.7 mg/dL (0.55-1.3); GLUCOSE,RANDOM 135 mg/dL (74-106); POTASSIUM 4.9 mmol/L (3.5-5.1); SODIUM 139 mmol/L (136-145)
[2018-05-06] MEDS: ALBUTEROL SO4 2.5/IPRATROPIUM 0.5 INH SOL 3 ML VIAL.NEB. NEB SCH ×4 (08:07→20:22)
--- NOTE | 2018-05-06 09:13 | PN ---
Progress Note (short form) - Note Progress Note: Neurology History of Present Illness 62 year old female with past medical history significant for CAD, HTN, [place] s/p angioplasty 2011, L. ventricular end diastolic dysfunction, PVD, asthma, COPD, Mesenteric ischemia treated with SMA bypass 2011, and Renal Failure (required temporary dialysis 2011) presents to the emergency department with shortness of breath and leg swelling. The patient was sent to the ED by PCP, stated at the office patient had elevated BP of 170/80 and elevated heart rate. The patient presented with 1 week of bilateral leg swelling with pain, right leg greater than left. Legs did not appear as swollen during my encounter and I inquired about DM and symptoms don't seem neuropathic. Reports discomfort in the "bone" and thus may benefit from Podiatry or Ortho eval. However, does report R eye visual field deficit which is acute on chronic. States she was seen by eye doctor and likely 2/2 to cataracts. States in the past, she had a clot go from her heart to her eye. CT head completed and reviewed and discussed. Small L frontal infarct noted. The patient states she is on plavix but not on ASA. Reports she was told to stop ASA for a procedure in Jul but not restarted. ASA has been restarted, cardiology note reviewed and no bleeding or events since being restarted on dual antiplatelet. Also has tension type headaches, likely due to elevated BP and being in hospital. Fioricet to be taken as needed. Lastly, described dizziness that's chronic. Discussed avoiding quick head movements as she gets room spinning sensation in the AM when she's moving her head in bed. Added Meclezine. Discussed hydration can also prevent acute episodes of vertigo. Neurologically stable at this time. Allergies/Adverse Reactions: Allergies Allergy/AdvReac Type Severity Reaction Status Date / Time No Known Drug Allergies Allergy Verified 04/29/18 15:06 Active Medications Acetaminophen (Tylenol -) 650 mg PO Q6H PRN PRN Reason: FEVER Last Admin: 05/05/18 10:48 Dose: 650 mg Acetaminophen (Tylenol -) 325 mg PO Q8H PRN PRN Reason: PAIN LEVEL 7 - 10 Last Admin: 05/02/18 01:32 Dose: 325 mg Acetaminophen/Butalbital/Caffeine (Fioricet -) 1 tablet PO Q6H PRN PRN Reason: HEADACHE Al Hydroxide/Mg Hydroxide (Mylanta Oral Suspension -) 30 ml PO Q6H PRN PRN Reason: DYSPEPSIA Last Admin: 05/03/18 21:23 Dose: 30 ml Albuterol Sulfate (Ventolin 0.083% Nebulizer Soln -) 1 amp NEB Q4H PRN PRN Reason: SHORT OF BREATH/WHEEZING Last Admin: 05/06/18 04:51 Dose: 1 amp Albuterol/Ipratropium (Duoneb -) 1 amp NEB RQID [facility] Last Admin: 05/06/18 08:07 Dose: 1 amp Alprazolam (Xanax -) 0.25 mg PO Q12H PRN PRN Reason: ANXIETY Last Admin: 05/05/18 21:37 Dose: 0.25 mg Aspirin (Asa -) 81 mg PO DAILY [facility] Last Admin: 05/05/18 10:34 Dose: 81 mg Atorvastatin Calcium (Lipitor -) 80 mg PO HS [facility] Last Admin: 05/05/18 21:26 Dose: 80 mg Azithromycin (Zithromax -) 250 mg PO 0600 [facility] Last Admin: 05/06/18 06:17 Dose: 250 mg Budesonide/Formoterol Fumarate (Symbicort 160/4.5mcg -) 2 puff IH BID [facility] Last Admin: 05/05/18 21:38 Dose: 2 puff Clopidogrel Bisulfate (Plavix -) 75 mg PO DAILY [facility] Last Admin: 05/05/18 10:33 Dose: 75 mg Clotrimazole (Lotrimin 1% Cream -) 1 applic TP BID [facility] Last Admin: 05/05/18 21:29 Dose: Not Given Docusate Sodium (Colace -) 300 mg PO HS [facility] Last Admin: 05/05/18 21:26 Dose: 300 mg Fluticasone Propionate (Flonase -) 2 spray NS BID [facility] Last Admin: 05/05/18 21:38 Dose: 2 spray Folic Acid (Folic Acid -) 1 mg PO DAILY [facility] Last Admin: 05/05/18 10:33 Dose: 1 mg Furosemide (Lasix -) 20 mg PO DAILY [facility] Last Admin: 05/05/18 10:34 Dose: 20 mg Guaifenesin (Robitussin Dm -) 10 ml PO Q6H PRN PRN Reason: COUGH Insulin Aspart (Novolog Vial Sliding Scale -) 1 vial SQ ACHS [facility]; Protocol Last Admin: 05/06/18 06:17 Dose: Not Given Isosorbide Mononitrate (Imdur -) 30 mg PO DAILY [facility] Last Admin: 05/05/18 10:33 Dose: 30 mg Meclizine HCl (Antivert -) 25 mg PO Q6H PRN PRN Reason: VERTIGO Methylprednisolone Sodium Succinate (Solu-Medrol -) 40 mg IVPB Q6H-IV [facility] Last Admin: 05/06/18 02:30 Dose: 40 mg Montelukast Sodium (Singulair -) 10 mg PO HS [facility] Last Admin: 05/05/18 21:27 Dose: 10 mg Mupirocin (Bactroban 2% Ointment -) 1 applic TP BID [facility] Last Admin: 05/05/18 21:28 Dose: Not Given Nebivolol (Bystolic -) 5 mg PO DAILY [facility] Last Admin: 05/05/18 10:33 Dose: 5 mg Nitroglycerin (Nitrostat -) 0.4 mg SL AM PRN PRN Reason: PAIN LEVEL 6-10 Last Admin: 05/06/18 04:19 Dose: 0.4 mg Nystatin (Nystatin Oral Suspension -) 500,000 units PO Q6HPO [facility] Last Admin: 05/06/18 06:18 Dose: 500,000 units Oxycodone HCl (Roxicodone -) 5 mg PO Q8H PRN PRN Reason: PAIN LEVEL 7 - 10 Last Admin: 05/03/18 06:11 Dose: 5 mg Pantoprazole Sodium (Protonix -) 40 mg PO DAILY [facility] Last Admin: 05/05/18 10:33 Dose: 40 mg Potassium Chloride (K-Dur -) 10 meq PO BID [facility] Last Admin: 05/05/18 21:26 Dose: 10 meq Ranitidine HCl (Zantac -) 150 mg PO DAILY [facility] Last Admin: 05/05/18 10:33 Dose: 150 mg Ranolazine (Ranexa -) 500 mg PO BID [facility] Last Admin: 05/05/18 21:27 Dose: 500 mg Sodium Chloride ([place]al [place] -) 2 spray NS TID [facility] Last Admin: 05/06/18 06:17 Dose: 2 spray Valsartan (Diovan -) 40 mg PO DAILY [facility] Last Admin: 05/05/18 10:33 Dose: 40 mg Verapamil HCl (Calan Sr -) 240 mg PO BID [facility] Last Admin: 05/05/18 21:25 Dose: 240 mg *Physical Exam Vital Signs Period Temp Pulse Resp BP Sys/Mann Pulse Ox Last 24 Hr 97.6 F-98.2 F 58-65 20-201 103-127/43-60 Gen: Awake, alert, responds to questions Card: RRR, nml S1,S2 Resp: B/L wheezing Abdomen: Soft, nontender, bowel sounds active Musculoskeletal: Adequate range of motion without significant deformity Head atraumatic and normocephalic CN: PERRL, EOMI intact, no apparent facial droop, no abnormalities in facial sensation, palate elevates, uvula and tongue midline Motor: Full strength to confrontation in upper and lower extermities proximally and distally. Tone normal throughout Sensory: Decresed LT in distal lower ext Reflexes: 2+ biceps, brachioradialis, patellar, achillies Coordination: Intact on [id number] testing Gait: Slightly antalgic CBCD WBC 7.7 K/mm3 (4.0-10.0) 05/05/18 06:30 RBC 4.19 M/mm3 (3.60-5.2) 05/05/18 06:30 Hgb 12.4 GM/dL (10.7-15.3) 05/05/18 06:30 Hct 37.8 % (32.4-45.2) 05/05/18 06:30 MCV 90.1 fl (80-96) 05/05/18 06:30 MCHC 32.8 g/dl (32.0-36.0) 05/05/18 06:30 RDW 15.8 % (11.6-15.6) H 05/05/18 06:30 Plt Count 307 K/MM3 (134-434) 05/05/18 06:30 MPV 7.1 fl (7.5-11.1) L 05/05/18 06:30 CMP Sodium 139 mmol/L (136-145) 05/06/18 06:50 Potassium 4.9 mmol/L (3.5-5.1) 05/06/18 06:50 Chloride 102 mmol/L (98-107) 05/06/18 06:50 Carbon Dioxide 29 mmol/L (21-32) 05/06/18 06:50 Anion Gap 8 MMOL/L (8-16) 05/06/18 06:50 BUN 27 mg/dL (7-18) H 05/06/18 06:50 Creatinine 0.7 mg/dL (0.55-1.3) 05/06/18 06:50 Creat Clearance w eGFR > 60 (>60) 05/06/18 06:50 Random Glucose 135 mg/dL (74-106) H 05/06/18 06:50 Calcium 8.3 mg/dL (8.5-10.1) L 05/06/18 06:50 Total Bilirubin 0.3 mg/dL (0.2-1) 05/04/18 06:30 AST 10 U/L (15-37) L 05/04/18 06:30 ALT 21 U/L (13-61) 05/04/18 06:30 Alkaline Phosphatase 69 U/L (45-117) 05/04/18 06:30 Total Protein 6.2 g/dl (6.4-8.2) L 05/04/18 06:30 Albumin 3.2 g/dl (3.4-5.0) L 05/04/18 06:30 CARDIAC ENZYMES Creatine Kinase 73 IU/L (26-192) 04/30/18 06:10 Troponin I < 0.02 ng/ml (0.00-0.05) 04/30/18 06:10 Plan: 62 year old female with past medical history significant for CAD, HTN, [place] s/p angioplasty 2011, L. ventricular end diastolic dysfunction, PVD, asthma, COPD, Mesenteric ischemia treated with SMA bypass 2011, and Renal Failure (required temporary dialysis 2011) presents to the emergency department with shortness of breath and leg swelling. The patient was sent to the ED by PCP, stated at the office patient had elevated BP of 170/80 and elevated heart rate. The patient presented with 1 week of bilateral leg swelling with pain, right leg greater than left, tension headaches, dizziness, and R visual field deficits. Ct head reviewed and discussed On plavix and ASA 81mg started, no bleeding or events with dual antiplatelet ( which she had been on previously) Continue Statin 80mg Monitor blood pressure, maintain normotensive range Fioricet prescribed for headaches Vision possibly due to cataracts, no occipital infarct on CT head, reassurance provided Meclezine added for dizziness Avoid sudden head movements Discussed hydration can also prevent acute episodes of vertigo. Consider Ortho/podiatry regarding foot pain Does not seem neuropathic Fall precautions discussed Neurologically stable Information given for outpatient follow up Discharge planning
--- NOTE | 2018-05-06 09:55 | PN ---
Progress Note, Physician Chief Complaint: feels a little better but this am had chest tighness better with nebs and SL NTG ; restarted on ASA per neuro - Current Medication List Current Medications: Active Medications Acetaminophen (Tylenol -) 650 mg PO Q6H PRN PRN Reason: FEVER Last Admin: 05/05/18 10:48 Dose: 650 mg Acetaminophen (Tylenol -) 325 mg PO Q8H PRN PRN Reason: PAIN LEVEL 7 - 10 Last Admin: 05/02/18 01:32 Dose: 325 mg Al Hydroxide/Mg Hydroxide (Mylanta Oral Suspension -) 30 ml PO Q6H PRN PRN Reason: DYSPEPSIA Last Admin: 05/03/18 21:23 Dose: 30 ml Albuterol Sulfate (Ventolin 0.083% Nebulizer Soln -) 1 amp NEB Q4H PRN PRN Reason: SHORT OF BREATH/WHEEZING Last Admin: 05/06/18 04:51 Dose: 1 amp Albuterol/Ipratropium (Duoneb -) 1 amp NEB RQID [facility] Last Admin: 05/06/18 08:07 Dose: 1 amp Alprazolam (Xanax -) 0.25 mg PO Q12H PRN PRN Reason: ANXIETY Last Admin: 05/05/18 21:37 Dose: 0.25 mg Aspirin (Asa -) 81 mg PO DAILY [facility] Last Admin: 05/05/18 10:34 Dose: 81 mg Atorvastatin Calcium (Lipitor -) 80 mg PO HS [facility] Last Admin: 05/05/18 21:26 Dose: 80 mg Azithromycin (Zithromax -) 250 mg PO 0600 [facility] Last Admin: 05/06/18 06:17 Dose: 250 mg Budesonide/Formoterol Fumarate (Symbicort 160/4.5mcg -) 2 puff IH BID [facility] Last Admin: 05/05/18 21:38 Dose: 2 puff Clopidogrel Bisulfate (Plavix -) 75 mg PO DAILY [facility] Last Admin: 05/05/18 10:33 Dose: 75 mg Clotrimazole (Lotrimin 1% Cream -) 1 applic TP BID [facility] Last Admin: 05/05/18 21:29 Dose: Not Given Docusate Sodium (Colace -) 300 mg PO [facility] Last Admin: 05/05/18 21:26 Dose: 300 mg Fluticasone Propionate (Flonase -) 2 spray NS BID [facility] Last Admin: 05/05/18 21:38 Dose: 2 spray Folic Acid (Folic Acid -) 1 mg PO DAILY [facility] Last Admin: 05/05/18 10:33 Dose: 1 mg Furosemide (Lasix -) 20 mg PO DAILY [facility] Last Admin: 05/05/18 10:34 Dose: 20 mg Guaifenesin (Robitussin Dm -) 10 ml PO Q6H PRN PRN Reason: COUGH Insulin Aspart (Novolog Vial Sliding Scale -) 1 vial SQ ACHS [facility]; Protocol Last Admin: 05/06/18 06:17 Dose: Not Given Isosorbide Mononitrate (Imdur -) 30 mg PO DAILY [facility] Last Admin: 05/05/18 10:33 Dose: 30 mg Meclizine HCl (Antivert -) 25 mg PO Q6H PRN PRN Reason: VERTIGO Methylprednisolone Sodium Succinate (Solu-Medrol -) 40 mg IVPB Q6H-IV [facility] Last Admin: 05/06/18 02:30 Dose: 40 mg Montelukast Sodium (Singulair -) 10 mg PO HS [facility] Last Admin: 05/05/18 21:27 Dose: 10 mg Mupirocin (Bactroban 2% Ointment -) 1 applic TP BID [facility] Last Admin: 05/05/18 21:28 Dose: Not Given Nebivolol (Bystolic -) 5 mg PO DAILY [facility] Last Admin: 05/05/18 10:33 Dose: 5 mg Nitroglycerin (Nitrostat -) 0.4 mg SL AM PRN PRN Reason: PAIN LEVEL 6-10 Last Admin: 05/06/18 04:19 Dose: 0.4 mg Nystatin (Nystatin Oral Suspension -) 500,000 units PO Q6HPO [facility] Last Admin: 05/06/18 06:18 Dose: 500,000 units Oxycodone HCl (Roxicodone -) 5 mg PO Q8H PRN PRN Reason: PAIN LEVEL 7 - 10 Last Admin: 05/03/18 06:11 Dose: 5 mg Pantoprazole Sodium (Protonix -) 40 mg PO DAILY [facility] Last Admin: 05/05/18 10:33 Dose: 40 mg Potassium Chloride (K-Dur -) 10 meq PO BID [facility] Last Admin: 05/05/18 21:26 Dose: 10 meq Ranitidine HCl (Zantac -) 150 mg PO DAILY [facility] Last Admin: 05/05/18 10:33 Dose: 150 mg Ranolazine (Ranexa -) 500 mg PO BID [facility] Last Admin: 05/05/18 21:27 Dose: 500 mg Sodium Chloride ([place] Nasal [place] -) 2 spray NS TID [facility] Last Admin: 05/06/18 06:17 Dose: 2 spray Valsartan (Diovan -) 40 mg PO DAILY [facility] Last Admin: 05/05/18 10:33 Dose: 40 mg Verapamil HCl (Calan Sr -) 240 mg PO BID [facility] Last Admin: 05/05/18 21:25 Dose: 240 mg - Objective Vital Signs: Vital Signs Temperature 97.9 F 05/06/18 06:14 Pulse Rate 65 05/05/18 21:20 Respiratory Rate 20 05/05/18 21:20 Blood Pressure 127/60 05/06/18 06:14 O2 Sat by Pulse Oximetry (%) 97 05/04/18 21:00 Constitutional: Yes: No Distress, Calm Eyes: Yes: Conjunctiva Clear HENT: Yes: Atraumatic Neck: Yes: Supple Cardiovascular: Yes: Regular Rate and Rhythm Respiratory: Yes: Wheezes Gastrointestinal: No: Distention, Tenderness Genitourinary: No: CVA Tenderness - Left, CVA Tenderness - Right Musculoskeletal: No: Joint Stiffness, Joint Swelling Extremities: No: Cold, Cool, Cyanosis Edema: No Integumentary: No: Rash, Venous Stasis Changes Neurological: Yes: WNL, Alert, Oriented ...Motor Strength: WNL Psychiatric: Yes: WNL, Alert, Oriented. No: Agitated, Suicidal Ideation Labs: CBC, BMP 05/05/18 06:30 05/06/18 06:50 INR, PTT INR Cancelled 04/29/18 15:44 - ....Imaging Other: Report Reviewed Assessment/Plan The patient is a 62 year old female with past medical history significant for CAD, HTN, [place] s/p angioplasty 2011, L. ventricular end diastolic dysfunction, PVD , asthma, COPD, Mesenteric ischemia treated with SMA bypass 2011, and Renal Failure (required temporary dialysis 2011) admitted with shortness of breath and legs swelling. Acute COPD and CHF exac cardiology and pulmonary f/u neurology and vascular sx f/u IV lasix iv steroids taper per pulm; nebs daily weight; check labs feet xrays and PVR no acute changes tests and consults reviewed with pt falls PFX d/w pt and staff
[2018-05-06] MEDS ORDERED: PT OWN MED DRAWER 7, Y5N ONE ×6 (10:14→22:59)
[2018-05-06] MEDS: ASPIRIN 81 MG CHEWABLE TABLETS PO SCH (10:20)
[2018-05-06] MEDS: MUPIROCIN 2% TOPICAL OINTMENT 22 GM TUBE TP SCH ×2 (10:20→21:11)
[2018-05-06] MEDS: FUROSEMIDE 20 MG TABLET (FP) PO SCH (10:21)
[2018-05-06] MEDS: ISOSORBIDE MONONITRATE 30 MG TAB.SR.24H (FP) PO SCH (10:21)
[2018-05-06] MEDS: FOLIC ACID 1 MG TABLET (FP) PO SCH (10:21)
[2018-05-06] MEDS: FLUTICASONE PROP 0.05% 16 GM NASAL SPRAY NS SCH ×2 (10:21→21:12)
[2018-05-06] MEDS: RANOLAZINE E.R. 500 MG TABLET (FP) PO SCH ×2 (10:22→21:12)
[2018-05-06] MEDS: PANTOPRAZOLE 40 MG TABLET (FP) PO SCH (10:22)
[2018-05-06] MEDS: POTASSIUM CHLORIDE TABS 10 MEQ TABLET.ER (FP) PO SCH ×2 (10:22→21:12)
[2018-05-06] MEDS: CLOPIDOGREL BISULFATE 75 MG TABLET (FP) PO SCH (10:22)
[2018-05-06] MEDS: CLOTRIMAZOLE 1% CREAM 15 GM TUBE TP SCH ×2 (10:22→21:14)
[2018-05-06] MEDS: BUDESONIDE/FORMETEROL FUMARATE 160/4.5 mcg INHALER IH SCH ×2 (10:23→21:12)
[2018-05-06] MEDS: RANITIDINE HCL 150 MG TABLET (FP) PO SCH (10:23)
[2018-05-06] MEDS: VALSARTAN 40 MG TABLET (FP) PO SCH (10:25)
[2018-05-06] MEDS: NEBIVOLOL 5 MG TABLET (FP) PO SCH (10:25)
[2018-05-06] MEDS: VERAPAMIL HCL 240 MG E.R. TABLET (FP) PO SCH ×2 (10:25→21:12)
--- NOTE | 2018-05-06 12:35 | PN ---
Progress Note, Physician History of Present Illness: Atypical chest wall tightness earlier this AM treated with nebulizer and SL NTG. - Current Medication List Current Medications: Active Medications Acetaminophen (Tylenol -) 650 mg PO Q6H PRN PRN Reason: FEVER Last Admin: 05/05/18 10:48 Dose: 650 mg Acetaminophen (Tylenol -) 325 mg PO Q8H PRN PRN Reason: PAIN LEVEL 7 - 10 Last Admin: 05/02/18 01:32 Dose: 325 mg Al Hydroxide/Mg Hydroxide (Mylanta Oral Suspension -) 30 ml PO Q6H PRN PRN Reason: DYSPEPSIA Last Admin: 05/03/18 21:23 Dose: 30 ml Albuterol Sulfate (Ventolin 0.083% Nebulizer Soln -) 1 amp NEB Q4H PRN PRN Reason: SHORT OF BREATH/WHEEZING Last Admin: 05/06/18 04:51 Dose: 1 amp Albuterol/Ipratropium (Duoneb -) 1 amp NEB RQID [facility] Last Admin: 05/06/18 11:36 Dose: 1 amp Alprazolam (Xanax -) 0.25 mg PO Q12H PRN PRN Reason: ANXIETY Last Admin: 05/05/18 21:37 Dose: 0.25 mg Aspirin (Asa -) 81 mg PO DAILY [facility] Last Admin: 05/06/18 10:20 Dose: 81 mg Atorvastatin Calcium (Lipitor -) 80 mg PO HS [facility] Last Admin: 05/05/18 21:26 Dose: 80 mg Azithromycin (Zithromax -) 250 mg PO 0600 [facility] Last Admin: 05/06/18 06:17 Dose: 250 mg Budesonide/Formoterol Fumarate (Symbicort 160/4.5mcg -) 2 puff IH BID [facility] Last Admin: 05/06/18 10:23 Dose: 2 puff Clopidogrel Bisulfate (Plavix -) 75 mg PO DAILY [facility] Last Admin: 05/06/18 10:22 Dose: 75 mg Clotrimazole (Lotrimin 1% Cream -) 1 applic TP BID [facility] Last Admin: 05/06/18 10:22 Dose: Not Given Docusate Sodium (Colace -) 300 mg PO [facility] Last Admin: 05/05/18 21:26 Dose: 300 mg Fluticasone Propionate (Flonase -) 2 spray NS BID [facility] Last Admin: 05/06/18 10:21 Dose: 2 spray Folic Acid (Folic Acid -) 1 mg PO DAILY [facility] Last Admin: 05/06/18 10:21 Dose: 1 mg Furosemide (Lasix -) 20 mg PO DAILY [facility] Last Admin: 05/06/18 10:21 Dose: 20 mg Guaifenesin (Robitussin Dm -) 10 ml PO Q6H PRN PRN Reason: COUGH Insulin Aspart (Novolog Vial Sliding Scale -) 1 vial SQ ACHS [facility]; Protocol Last Admin: 05/06/18 11:34 Dose: Not Given Isosorbide Mononitrate (Imdur -) 30 mg PO DAILY [facility] Last Admin: 05/06/18 10:21 Dose: 30 mg Meclizine HCl (Antivert -) 25 mg PO Q6H PRN PRN Reason: VERTIGO Methylprednisolone Sodium Succinate (Solu-Medrol -) 40 mg IVPB Q6H-IV [facility] Last Admin: 05/06/18 10:20 Dose: 40 mg Montelukast Sodium (Singulair -) 10 mg PO HS [facility] Last Admin: 05/05/18 21:27 Dose: 10 mg Mupirocin (Bactroban 2% Ointment -) 1 applic TP BID [facility] Last Admin: 05/06/18 10:20 Dose: Not Given Nebivolol (Bystolic -) 5 mg PO DAILY [facility] Last Admin: 05/06/18 10:25 Dose: 5 mg Nitroglycerin (Nitrostat -) 0.4 mg SL AM PRN PRN Reason: PAIN LEVEL 6-10 Last Admin: 05/06/18 04:19 Dose: 0.4 mg Nystatin (Nystatin Oral Suspension -) 500,000 units PO Q6HPO [facility] Last Admin: 05/06/18 12:16 Dose: 500,000 units Oxycodone HCl (Roxicodone -) 5 mg PO Q8H PRN PRN Reason: PAIN LEVEL 7 - 10 Last Admin: 05/03/18 06:11 Dose: 5 mg Pantoprazole Sodium (Protonix -) 40 mg PO DAILY [facility] Last Admin: 05/06/18 10:22 Dose: 40 mg Potassium Chloride (K-Dur -) 10 meq PO BID [facility] Last Admin: 05/06/18 10:22 Dose: 10 meq Ranitidine HCl (Zantac -) 150 mg PO DAILY [facility] Last Admin: 05/06/18 10:23 Dose: 150 mg Ranolazine (Ranexa -) 500 mg PO BID [facility] Last Admin: 05/06/18 10:22 Dose: 500 mg Sodium Chloride ([place] Nasal [place] -) 2 spray NS TID [facility] Last Admin: 05/06/18 06:17 Dose: 2 spray Valsartan (Diovan -) 40 mg PO DAILY [facility] Last Admin: 05/06/18 10:25 Dose: 40 mg Verapamil HCl (Calan Sr -) 240 mg PO BID [facility] Last Admin: 05/06/18 10:25 Dose: 240 mg - Objective Vital Signs: Vital Signs Temperature 97.9 F 05/06/18 06:14 Pulse Rate 65 05/05/18 21:20 Respiratory Rate 20 05/05/18 21:20 Blood Pressure 127/60 05/06/18 06:14 O2 Sat by Pulse Oximetry (%) 97 05/04/18 21:00 Constitutional: Yes: No Distress, Calm Neck: Yes: Supple Cardiovascular: Yes: Regular Rate and Rhythm Respiratory: Yes: Regular, Diminished, On Nasal O2 Gastrointestinal: Yes: Normal Bowel Sounds, Soft, Abdomen, Obese Edema: Yes Edema: LLE: Trace, RLE: Trace Labs: CBC, BMP 05/05/18 06:30 05/06/18 06:50 INR, PTT INR Cancelled 04/29/18 15:44 Problem List - Problems (1) Shortness of breath Code(s): R06.02 - SHORTNESS OF BREATH (2) COPD exacerbation Code(s): J44.1 - CHRONIC OBSTRUCTIVE PULMONARY DISEASE W (ACUTE) EXACERBATION (3) Coronary artery disease Code(s): I25.10 - ATHSCL HEART DISEASE OF [place] CORONARY ARTERY W/O ANG PCTRS Qualifiers: Coronary Disease-Associated Artery/Lesion type: [place] artery [place] vs. transplanted heart: [place] heart Associated angina: without angina Qualified Code(s): I25.10 - Atherosclerotic heart disease of [place] coronary artery without angina pectoris (4) H/O carotid endarterectomy Code(s): Z98.890 - OTHER SPECIFIED POSTPROCEDURAL STATES (5) HTN (hypertension) Code(s): I10 - ESSENTIAL (PRIMARY) HYPERTENSION Qualifiers: Hypertension type: essential hypertension Qualified Code(s): I10 - Essential (primary) hypertension (6) History of myocardial infarction Code(s): I25.2 - OLD MYOCARDIAL INFARCTION (7) Hyperlipidemia Code(s): E78.5 - HYPERLIPIDEMIA, UNSPECIFIED Qualifiers: Hyperlipidemia type: pure hypercholesterolemia Qualified Code(s): E78.00 - Pure hypercholesterolemia, unspecified; E78.0 - Pure hypercholesterolemia (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 Diastolic dysfunction with resolved failure 2. Acute exacerbation of COPD improving 3. CAD post ME PCI 2011, angina pectoris 4. Systolic murmur, AV sclerosis rule out stenosis 5. HTN/HCVD 6. Hyperlipidemia 7. Bilateral carotid artery disease post right CEA 8. Mesenteric ischemia post SMA bypass 2011 9. PAD post intervention w/o sig stenosis 10. Hyperkalemia 11. H/o left frontal stroke 12. H/o Renal Failure (required temporary dialysis 2011) PLAN: 1. Continue Verapamil 240 bid with caution (consider decreasing dosage if hypotension persists) 2. Continue Bystolic 5 qd with caution 3. Continue Imdur 30 qd and Ranexa 500 bid 4. Continue Diovan 40 qd with monitor K 5. Continue Lipitor 80 qhs 6. Resume home oral Lasix dose 20 po qd 7. Continue Plavix 75 qd and resumed ASA 81 qd per neuro recs 9. Follow up with Dr. 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 BD, empiric abx, IV steroid taper with GI protection, Singulair, O2 to keep Spo2 >90%, DVT prophylaxis 11. F/u CXR and ecg ordered
--- NOTE | 2018-05-06 12:38 | PN ---
Progress Note (short form) - Note Progress Note: PULMONARY COMPLAINING OF LEFT ANTERIOR CHEST WALL DISCOMFORT VSS/AFEBRILE ANICTERIC/PALE DIMINISHED BREATH SOUNDS S1S2 BS+ OBESE NO EDEMA LABS/MEDS/NOTES/IMAGES REVIEWED Acute COPD Exacerbation LV Diastolic Dysfunction CAD HTN Hyperlipidemia PAD CKD - taper medrol - inhaled bronchodilators standing and PRN - lasix - monitor urine output, creatinine - O2 to keep Spo2 >90% - DVT prophylaxis - ekg/cxr ordered Padmini SANDOVAL MD Problem List - Problems (1) COPD (chronic obstructive pulmonary disease) Code(s): J44.9 - CHRONIC OBSTRUCTIVE PULMONARY DISEASE, UNSPECIFIED (2) Shortness of breath Code(s): R06.02 - SHORTNESS OF BREATH (3) ASHD (arteriosclerotic heart disease) Code(s): I25.10 - ATHSCL HEART DISEASE OF [place] CORONARY ARTERY W/O ANG PCTRS (4) COPD exacerbation Code(s): J44.1 - CHRONIC OBSTRUCTIVE PULMONARY DISEASE W (ACUTE) EXACERBATION (5) Coronary artery disease Code(s): I25.10 - ATHSCL HEART DISEASE OF [place] CORONARY ARTERY W/O ANG PCTRS Qualifiers: Coronary Disease-Associated Artery/Lesion type: [place] artery [place] vs. transplanted heart: [place] heart Associated angina: without angina Qualified Code(s): I25.10 - Atherosclerotic heart disease of [place] coronary artery without angina pectoris (6) HTN (hypertension) Code(s): I10 - ESSENTIAL (PRIMARY) HYPERTENSION Qualifiers: Hypertension type: essential hypertension Qualified Code(s): I10 - Essential (primary) hypertension (7) History of myocardial infarction Code(s): I25.2 - OLD MYOCARDIAL INFARCTION (8) Hyperlipidemia Code(s): E78.5 - HYPERLIPIDEMIA, UNSPECIFIED Qualifiers: Hyperlipidemia type: pure hypercholesterolemia Qualified Code(s): E78.00 - Pure hypercholesterolemia, unspecified; E78.0 - Pure hypercholesterolemia
[2018-05-06] MEDS: DOCUSATE SODIUM 100 MG CAPSULE (FP) PO SCH (21:11)
[2018-05-06] MEDS: ATORVASTATIN CA 80 MG TABLET (FP) PO SCH (21:11)
[2018-05-06] MEDS: ALPRAZolam 0.25 MG TABLET PO PRN (21:12)
[2018-05-06] MEDS: ACETAMINOPHEN 325 MG TABLET (FP) PO PRN (21:12)
[2018-05-06] MEDS: MONTELUKAST NA 10 MG TABLET PO SCH (21:12)
[2018-05-06] MEDS ORDERED: INSULIN (NOVOLOG) ASPART 100 UNITS/ML 10ML VIAL ONE (22:15)
[2018-05-07] MEDS: methylPREDNISolone NA SUCC 40 MG/1 ML VIAL IVPB SCH ×4 (03:12→20:58)
[2018-05-07] MEDS: AZITHROMYCIN 250 MG TABLET PO SCH (05:41)
[2018-05-07] MEDS: NYSTATIN 500,000 UNITS/5 ML SUSPENSION PO SCH ×3 (05:41→17:29)
[2018-05-07] MEDS: SODIUM CHLORIDE NASAL SPRAY 44 ML BOTTLE NS SCH ×3 (05:41→21:07)
[2018-05-07] MEDS: INSULIN SLIDING SCALE (NOVOLOG) 1 VIAL SQ SCH ×4 (06:19→21:07)
[2018-05-07 07:44] LABS: BASO % 0.1 % (0-2.0); EOS % 0.1 % (0-4.5); HEMATOCRIT 35.4 % (32.4-45.2); MCH 30.4 pg (25.7-33.7); MCHC 33.9 g/dl (32.0-36.0); MEAN CELL VOLUME 89.7 fl (80-96); MONO % 2.5 % (3.8-10.2); NEUT % 92.3 % (42.8-82.8); PLATELET COUNT 265 K/MM3 (134-434); RBC 3.94 M/mm3 (3.60-5.2); WHITE BLOOD COUNT 9.2 K/mm3 (4.0-10.0)
[2018-05-07 08:35] LABS: ALBUMIN 2.7 g/dl (3.4-5.0); ALK PHOS 58 U/L (45-117); ANION GAP 7 MMOL/L (8-16); BILIRUBIN,TOTAL 0.3 mg/dL (0.2-1); BLOOD UREA NITROGEN 24 mg/dL (7-18); CALCIUM 8.3 mg/dL (8.5-10.1); CHLORIDE 100 mmol/L (98-107); CO2 29 mmol/L (21-32); CREATININE 0.7 mg/dL (0.55-1.3); GLUCOSE,RANDOM 139 mg/dL (74-106); POTASSIUM 4.8 mmol/L (3.5-5.1); SGOT/AST 14 U/L (15-37); SGPT/ALT 32 U/L (13-61); SODIUM 136 mmol/L (136-145); TOT PROT 5.3 g/dl (6.4-8.2)
[2018-05-07] MEDS: BUDESONIDE/FORMETEROL FUMARATE 160/4.5 mcg INHALER IH SCH ×2 (09:43→21:07)
[2018-05-07] MEDS: FLUTICASONE PROP 0.05% 16 GM NASAL SPRAY NS SCH ×2 (09:43→21:07)
[2018-05-07] MEDS: FUROSEMIDE 20 MG TABLET (FP) PO SCH (09:44)
[2018-05-07] MEDS: NEBIVOLOL 5 MG TABLET (FP) PO SCH (09:44)
[2018-05-07] MEDS: VALSARTAN 40 MG TABLET (FP) PO SCH (09:44)
[2018-05-07] MEDS: CLOPIDOGREL BISULFATE 75 MG TABLET (FP) PO SCH (09:45)
[2018-05-07] MEDS: RANOLAZINE E.R. 500 MG TABLET (FP) PO SCH ×2 (09:45→21:05)
[2018-05-07] MEDS: RANITIDINE HCL 150 MG TABLET (FP) PO SCH (09:45)
[2018-05-07] MEDS: POTASSIUM CHLORIDE TABS 10 MEQ TABLET.ER (FP) PO SCH ×2 (09:45→21:05)
[2018-05-07] MEDS: ISOSORBIDE MONONITRATE 30 MG TAB.SR.24H (FP) PO SCH (09:45)
[2018-05-07] MEDS: ASPIRIN 81 MG CHEWABLE TABLETS PO SCH (09:45)
[2018-05-07] MEDS: FOLIC ACID 1 MG TABLET (FP) PO SCH (09:45)
[2018-05-07] MEDS: PANTOPRAZOLE 40 MG TABLET (FP) PO SCH (09:45)
[2018-05-07] MEDS: VERAPAMIL HCL 240 MG E.R. TABLET (FP) PO SCH ×2 (09:45→21:04)
[2018-05-07] MEDS: MUPIROCIN 2% TOPICAL OINTMENT 22 GM TUBE TP SCH ×2 (09:52→21:08)
[2018-05-07] MEDS: CLOTRIMAZOLE 1% CREAM 15 GM TUBE TP SCH ×2 (09:52→21:08)
--- NOTE | 2018-05-07 10:28 | EKG ---
Test Reason : Blood Pressure : / mmHG Vent. Rate : 064 BPM Atrial Rate : 064 BPM P-R Int : 142 ms QRS Dur : 092 ms QT Int : 442 ms P-R-T Axes : 064 055 064 degrees QTc Int : 455 ms NORMAL SINUS RHYTHM NORMAL ECG WHEN COMPARED WITH ECG OF 29-APR-2018 16:11, QT HAS SHORTENED Confirmed by LYRIC VIDALES MD ([id number]) on 05/07/2018 10:28:04 AM Referred By: Confirmed By:LYRIC VIDALES MD
--- NOTE | 2018-05-07 11:02 | PN ---
Progress Note, Physician Chief Complaint: feels a little better no cough no SOB no feet pains consults reviewed and d/w pt - Current Medication List Current Medications: Active Medications Acetaminophen (Tylenol -) 650 mg PO Q6H PRN PRN Reason: FEVER Last Admin: 05/06/18 21:12 Dose: 650 mg Acetaminophen (Tylenol -) 325 mg PO Q8H PRN PRN Reason: PAIN LEVEL 7 - 10 Last Admin: 05/02/18 01:32 Dose: 325 mg Al Hydroxide/Mg Hydroxide (Mylanta Oral Suspension -) 30 ml PO Q6H PRN PRN Reason: DYSPEPSIA Last Admin: 05/03/18 21:23 Dose: 30 ml Albuterol/Ipratropium (Duoneb -) 1 amp NEB RQID [facility] Last Admin: 05/06/18 20:22 Dose: 1 amp Alprazolam (Xanax -) 0.25 mg PO Q12H PRN PRN Reason: ANXIETY Last Admin: 05/06/18 21:12 Dose: 0.25 mg Aspirin (Asa -) 81 mg PO DAILY [facility] Last Admin: 05/07/18 09:45 Dose: 81 mg Atorvastatin Calcium (Lipitor -) 80 mg PO HS [facility] Last Admin: 05/06/18 21:11 Dose: 80 mg Azithromycin (Zithromax -) 250 mg PO 0600 [facility] Last Admin: 05/07/18 05:41 Dose: 250 mg Budesonide/Formoterol Fumarate (Symbicort 160/4.5mcg -) 2 puff IH BID [facility] Last Admin: 05/07/18 09:43 Dose: 2 puff Clopidogrel Bisulfate (Plavix -) 75 mg PO DAILY [facility] Last Admin: 05/07/18 09:45 Dose: 75 mg Clotrimazole (Lotrimin 1% Cream -) 1 applic TP BID [facility] Last Admin: 05/07/18 09:52 Dose: Not Given Docusate Sodium (Colace -) 300 mg PO HS [facility] Last Admin: 05/06/18 21:11 Dose: 300 mg Fluticasone Propionate (Flonase -) 2 spray NS BID [facility] Last Admin: 05/07/18 09:43 Dose: 2 spray Folic Acid (Folic Acid -) 1 mg PO DAILY [facility] Last Admin: 05/07/18 09:45 Dose: 1 mg Furosemide (Lasix -) 20 mg PO DAILY [facility] Last Admin: 05/07/18 09:44 Dose: 20 mg Guaifenesin (Robitussin Dm -) 10 ml PO Q6H PRN PRN Reason: COUGH Insulin Aspart (Novolog Vial Sliding Scale -) 1 vial SQ ACHS [facility]; Protocol Last Admin: 05/07/18 06:19 Dose: Not Given Isosorbide Mononitrate (Imdur -) 30 mg PO DAILY [facility] Last Admin: 05/07/18 09:45 Dose: 30 mg Meclizine HCl (Antivert -) 25 mg PO Q6H PRN PRN Reason: VERTIGO Methylprednisolone Sodium Succinate (Solu-Medrol -) 40 mg IVPB Q6H-IV [facility] Last Admin: 05/07/18 09:44 Dose: 40 mg Montelukast Sodium (Singulair -) 10 mg PO HS [facility] Last Admin: 05/06/18 21:12 Dose: 10 mg Mupirocin (Bactroban 2% Ointment -) 1 applic TP BID [facility] Last Admin: 05/07/18 09:52 Dose: Not Given Nebivolol (Bystolic -) 5 mg PO DAILY [facility] Last Admin: 05/07/18 09:44 Dose: 5 mg Nitroglycerin (Nitrostat -) 0.4 mg SL AM PRN PRN Reason: PAIN LEVEL 6-10 Last Admin: 05/06/18 04:19 Dose: 0.4 mg Nystatin (Nystatin Oral Suspension -) 500,000 units PO Q6HPO [facility] Last Admin: 05/07/18 05:41 Dose: 500,000 units Oxycodone HCl (Roxicodone -) 5 mg PO Q8H PRN PRN Reason: PAIN LEVEL 7 - 10 Last Admin: 05/03/18 06:11 Dose: 5 mg Pantoprazole Sodium (Protonix -) 40 mg PO DAILY [facility] Last Admin: 05/07/18 09:45 Dose: 40 mg Potassium Chloride (K-Dur -) 10 meq PO BID [facility] Last Admin: 05/07/18 09:45 Dose: 10 meq Ranitidine HCl (Zantac -) 150 mg PO DAILY [facility] Last Admin: 05/07/18 09:45 Dose: 150 mg Ranolazine (Ranexa -) 500 mg PO BID [facility] Last Admin: 05/07/18 09:45 Dose: 500 mg Sodium Chloride ([place] Nasal [place] -) 2 spray NS TID [facility] Last Admin: 05/07/18 05:41 Dose: 2 spray Valsartan (Diovan -) 40 mg PO DAILY [facility] Last Admin: 05/07/18 09:44 Dose: 40 mg Verapamil HCl (Calan Sr -) 240 mg PO BID [facility] Last Admin: 05/07/18 09:45 Dose: 240 mg - Objective Vital Signs: Vital Signs Temperature 97.8 F 05/07/18 06:34 Pulse Rate 65 05/07/18 06:34 Respiratory Rate 20 05/07/18 06:34 Blood Pressure 126/52 L 05/07/18 06:34 O2 Sat by Pulse Oximetry (%) 98 05/06/18 21:00 Constitutional: Yes: No Distress, Calm Eyes: Yes: Conjunctiva Clear HENT: Yes: Atraumatic Neck: Yes: Supple Cardiovascular: Yes: Regular Rate and Rhythm Respiratory: Yes: Rhonchi (less) Gastrointestinal: Yes: Soft. No: Distention Genitourinary: No: CVA Tenderness - Left, CVA Tenderness - Right Musculoskeletal: No: Joint Stiffness, Joint Swelling Extremities: No: Cold, Cool, Cyanosis Edema: No Integumentary: No: Rash, Venous Stasis Changes Neurological: Yes: WNL, Alert, Oriented ...Motor Strength: WNL Psychiatric: Yes: WNL, Alert, Oriented. No: Agitated, Suicidal Ideation Labs: CBC, BMP 05/07/18 06:30 05/07/18 06:30 INR, PTT INR Cancelled 04/29/18 15:44 - ....Imaging Other: Report Reviewed Assessment/Plan The patient is a 62 year old female with past medical history significant for CAD, HTN, MO s/p angioplasty 2011, L. ventricular end diastolic dysfunction, PVD , asthma, COPD, Mesenteric ischemia treated with SMA bypass 2011, and Renal Failure (required temporary dialysis 2011) admitted with shortness of breath and legs swelling. Acute COPD and CHF exac cardiology and pulmonary f/u neurology and vascular sx f/u po lasix iv steroids taper per pulm; nebs daily weight; check labs feet xrays and PVR no acute changes tests and consults reviewed with pt possible DC home in 1-2 days if switch to po steroids falls PFX d/w pt and staff
[2018-05-07] MEDS ORDERED: PT OWN MED DRAWER 7, Y5N ONE (11:50)
--- NOTE | 2018-05-07 11:54 | PN ---
Progress Note (short form) - Note Progress Note: Breathing slightly better today. Less cough, which is dry. Intake & Output 05/04/18 05/05/18 05/06/18 05/07/18 23:59 23:59 23:59 23:59 Intake Total 800 1080 600 100 Balance 800 1080 600 100 Weight 164 lb 11.2 oz 164 lb 6 oz 166 lb 4 oz 166 lb 5 oz Last Vital Signs Temp Pulse Resp BP Pulse Ox 97.8 F 65 20 126/52 L 98 05/07/18 06:34 05/07/18 06:34 05/07/18 06:34 05/07/18 06:34 05/06/18 21:00 Active Medications Acetaminophen (Tylenol -) 650 mg PO Q6H PRN PRN Reason: FEVER Last Admin: 05/06/18 21:12 Dose: 650 mg Acetaminophen (Tylenol -) 325 mg PO Q8H PRN PRN Reason: PAIN LEVEL 7 - 10 Last Admin: 05/02/18 01:32 Dose: 325 mg Al Hydroxide/Mg Hydroxide (Mylanta Oral Suspension -) 30 ml PO Q6H PRN PRN Reason: DYSPEPSIA Last Admin: 05/03/18 21:23 Dose: 30 ml Albuterol/Ipratropium (Duoneb -) 1 amp NEB RQID [facility] Last Admin: 05/06/18 20:22 Dose: 1 amp Alprazolam (Xanax -) 0.25 mg PO Q12H PRN PRN Reason: ANXIETY Last Admin: 05/06/18 21:12 Dose: 0.25 mg Aspirin (Asa -) 81 mg PO DAILY [facility] Last Admin: 05/07/18 09:45 Dose: 81 mg Atorvastatin Calcium (Lipitor -) 80 mg PO HS [facility] Last Admin: 05/06/18 21:11 Dose: 80 mg Azithromycin (Zithromax -) 250 mg PO 0600 [facility] Last Admin: 05/07/18 05:41 Dose: 250 mg Budesonide/Formoterol Fumarate (Symbicort 160/4.5mcg -) 2 puff IH BID [facility] Last Admin: 05/07/18 09:43 Dose: 2 puff Clopidogrel Bisulfate (Plavix -) 75 mg PO DAILY [facility] Last Admin: 05/07/18 09:45 Dose: 75 mg Clotrimazole (Lotrimin 1% Cream -) 1 applic TP BID [facility] Last Admin: 05/07/18 09:52 Dose: Not Given Docusate Sodium (Colace -) 300 mg PO HS [facility] Last Admin: 05/06/18 21:11 Dose: 300 mg Fluticasone Propionate (Flonase -) 2 spray NS BID [facility] Last Admin: 05/07/18 09:43 Dose: 2 spray Folic Acid (Folic Acid -) 1 mg PO DAILY [facility] Last Admin: 05/07/18 09:45 Dose: 1 mg Furosemide (Lasix -) 20 mg PO DAILY [facility] Last Admin: 05/07/18 09:44 Dose: 20 mg Guaifenesin (Robitussin Dm -) 10 ml PO Q6H PRN PRN Reason: COUGH Insulin Aspart (Novolog Vial Sliding Scale -) 1 vial SQ ACHS [facility]; Protocol Last Admin: 05/07/18 06:19 Dose: Not Given Isosorbide Mononitrate (Imdur -) 30 mg PO DAILY [facility] Last Admin: 05/07/18 09:45 Dose: 30 mg Meclizine HCl (Antivert -) 25 mg PO Q6H PRN PRN Reason: VERTIGO Methylprednisolone Sodium Succinate (Solu-Medrol -) 40 mg IVPB Q8H [facility] Montelukast Sodium (Singulair -) 10 mg PO [facility] Last Admin: 05/06/18 21:12 Dose: 10 mg Mupirocin (Bactroban 2% Ointment -) 1 applic TP BID [facility] Last Admin: 05/07/18 09:52 Dose: Not Given Nebivolol (Bystolic -) 5 mg PO DAILY [facility] Last Admin: 05/07/18 09:44 Dose: 5 mg Nitroglycerin (Nitrostat -) 0.4 mg SL AM PRN PRN Reason: PAIN LEVEL 6-10 Last Admin: 05/06/18 04:19 Dose: 0.4 mg Nystatin (Nystatin Oral Suspension -) 500,000 units PO Q6HPO [facility] Last Admin: 05/07/18 05:41 Dose: 500,000 units Oxycodone HCl (Roxicodone -) 5 mg PO Q8H PRN PRN Reason: PAIN LEVEL 7 - 10 Last Admin: 05/03/18 06:11 Dose: 5 mg Pantoprazole Sodium (Protonix -) 40 mg PO DAILY [facility] Last Admin: 05/07/18 09:45 Dose: 40 mg Potassium Chloride (K-Dur -) 10 meq PO BID [facility] Last Admin: 05/07/18 09:45 Dose: 10 meq Ranitidine HCl (Zantac -) 150 mg PO DAILY [facility] Last Admin: 05/07/18 09:45 Dose: 150 mg Ranolazine (Ranexa -) 500 mg PO BID [facility] Last Admin: 05/07/18 09:45 Dose: 500 mg Sodium Chloride ([place] Nasal [place] -) 2 spray NS TID [facility] Last Admin: 05/07/18 05:41 Dose: 2 spray Valsartan (Diovan -) 40 mg PO DAILY [facility] Last Admin: 05/07/18 09:44 Dose: 40 mg Verapamil HCl (Calan Sr -) 240 mg PO BID [facility] Last Admin: 05/07/18 09:45 Dose: 240 mg Gen: NAD at rest HEENT: +thrush Heart: RRR Lung: distant breath sounds, scattered wheeze Abd: soft, nontender Ext: distal edema Laboratory Results - last 24 hr 05/06/18 05/06/18 05/07/18 17:10 21:22 05:48 WBC RBC Hgb Hct MCV MCH MCHC RDW Plt Count MPV Absolute Neuts (auto) Neutrophils % Lymphocytes % Monocytes % Eosinophils % Basophils % Nucleated RBC % Sodium Potassium Chloride Carbon Dioxide Anion Gap BUN Creatinine Creat Clearance w eGFR POC Glucometer 111 215 139 Random Glucose Calcium Total Bilirubin AST ALT Alkaline Phosphatase Total Protein Albumin 05/07/18 05/07/18 06:30 06:30 WBC 9.2 RBC 3.94 Hgb 12.0 Hct 35.4 MCV 89.7 MCH 30.4 MCHC 33.9 RDW 16.0 H Plt Count 265 MPV 7.0 L Absolute Neuts (auto) 8.5 H Neutrophils % 92.3 H Lymphocytes % 5.0 L Monocytes % 2.5 L Eosinophils % 0.1 Basophils % 0.1 Nucleated RBC % 0 Sodium 136 Potassium 4.8 Chloride 100 Carbon Dioxide 29 Anion Gap 7 L BUN 24 H Creatinine 0.7 Creat Clearance w eGFR > 60 POC Glucometer Random Glucose 139 H Calcium 8.3 L Total Bilirubin 0.3 AST 14 L ALT 32 Alkaline Phosphatase 58 Total Protein 5.3 L Albumin 2.7 L A/P Acute COPD Exacerbation LV Diastolic Dysfunction CAD HTN Hyperlipidemia PAD CKD Thrush - Noted Medrol decrease to 40mg Q8h - inhaled bronchodilators standing and PRN - start nystatin swish/swallow - PO lasix - monitor urine output, creatinine - O2 to keep Spo2 >90% - DVT prophylaxis Dr Bueno
[2018-05-07] MEDS: ALBUTEROL SO4 2.5/IPRATROPIUM 0.5 INH SOL 3 ML VIAL.NEB. NEB SCH ×4 (12:05→20:50)
[2018-05-07 12:53] LABS: PLATELET ESTIMATE ADEQUATE
[2018-05-07] MEDS: DOCUSATE SODIUM 100 MG CAPSULE (FP) PO SCH (21:04)
[2018-05-07] MEDS: MONTELUKAST NA 10 MG TABLET PO SCH (21:05)
[2018-05-07] MEDS: ATORVASTATIN CA 80 MG TABLET (FP) PO SCH (21:05)
[2018-05-07] MEDS: ACETAMINOPHEN 325 MG TABLET (FP) PO PRN (21:06)
[2018-05-07] MEDS: ALPRAZolam 0.25 MG TABLET PO PRN (21:10)
[2018-05-08] MEDS: methylPREDNISolone NA SUCC 40 MG/1 ML VIAL IVPB SCH ×2 (03:30→11:57)
[2018-05-08] MEDS: ACETAMINOPHEN 325 MG TABLET (FP) PO PRN (06:22)
[2018-05-08] MEDS: NYSTATIN 500,000 UNITS/5 ML SUSPENSION PO SCH ×3 (06:22→11:57)
[2018-05-08] MEDS: SODIUM CHLORIDE NASAL SPRAY 44 ML BOTTLE NS SCH ×2 (06:22→15:28)
[2018-05-08] MEDS: AZITHROMYCIN 250 MG TABLET PO SCH (06:22)
[2018-05-08] MEDS: INSULIN SLIDING SCALE (NOVOLOG) 1 VIAL SQ SCH ×3 (06:23→17:13)
[2018-05-08] MEDS: ALBUTEROL SO4 2.5/IPRATROPIUM 0.5 INH SOL 3 ML VIAL.NEB. NEB SCH ×2 (08:00→12:05)
[2018-05-08] MEDS ORDERED: PT OWN MED DRAWER 7, Y5N ONE ×2 (09:28→16:23)
[2018-05-08] MEDS: BUDESONIDE/FORMETEROL FUMARATE 160/4.5 mcg INHALER IH SCH (09:53)
[2018-05-08] MEDS: FLUTICASONE PROP 0.05% 16 GM NASAL SPRAY NS SCH (09:56)
[2018-05-08] MEDS: RANITIDINE HCL 150 MG TABLET (FP) PO SCH (09:57)
[2018-05-08] MEDS: NEBIVOLOL 5 MG TABLET (FP) PO SCH (09:57)
[2018-05-08] MEDS: ASPIRIN 81 MG CHEWABLE TABLETS PO SCH (09:57)
[2018-05-08] MEDS: ISOSORBIDE MONONITRATE 30 MG TAB.SR.24H (FP) PO SCH (09:57)
[2018-05-08] MEDS: FOLIC ACID 1 MG TABLET (FP) PO SCH (09:57)
[2018-05-08] MEDS: POTASSIUM CHLORIDE TABS 10 MEQ TABLET.ER (FP) PO SCH (09:57)
[2018-05-08] MEDS: RANOLAZINE E.R. 500 MG TABLET (FP) PO SCH (09:57)
[2018-05-08] MEDS: VERAPAMIL HCL 240 MG E.R. TABLET (FP) PO SCH (09:57)
[2018-05-08] MEDS: VALSARTAN 40 MG TABLET (FP) PO SCH (09:57)
[2018-05-08] MEDS: PANTOPRAZOLE 40 MG TABLET (FP) PO SCH (09:57)
[2018-05-08] MEDS: FUROSEMIDE 20 MG TABLET (FP) PO SCH (09:57)
[2018-05-08] MEDS: CLOPIDOGREL BISULFATE 75 MG TABLET (FP) PO SCH (09:57)
[2018-05-08] MEDS: CLOTRIMAZOLE 1% CREAM 15 GM TUBE TP SCH (09:58)
[2018-05-08] MEDS: MUPIROCIN 2% TOPICAL OINTMENT 22 GM TUBE TP SCH (09:58)
[2018-05-08] MEDS: ALPRAZolam 0.25 MG TABLET PO PRN (10:03)
--- NOTE | 2018-05-08 11:11 | PN ---
Progress Note (short form) - Note Progress Note: Breathing feels overall better. Less cough, which is dry. Intake & Output 05/05/18 05/06/18 05/07/18 05/08/18 23:59 23:59 23:59 23:59 Intake Total 1080 600 500 Balance 1080 600 500 Weight 164 lb 6 oz 166 lb 4 oz 166 lb 5 oz 168 lb 3 oz Last Vital Signs Temp Pulse Resp BP Pulse Ox 97.7 F 68 20 163/69 98 05/08/18 07:04 05/08/18 07:04 05/08/18 07:04 05/08/18 07:04 05/06/18 21:00 Active Medications Acetaminophen (Tylenol -) 650 mg PO Q6H PRN PRN Reason: FEVER Last Admin: 05/08/18 06:22 Dose: 650 mg Acetaminophen (Tylenol -) 325 mg PO Q8H PRN PRN Reason: PAIN LEVEL 7 - 10 Last Admin: 05/02/18 01:32 Dose: 325 mg Al Hydroxide/Mg Hydroxide (Mylanta Oral Suspension -) 30 ml PO Q6H PRN PRN Reason: DYSPEPSIA Last Admin: 05/03/18 21:23 Dose: 30 ml Albuterol/Ipratropium (Duoneb -) 1 amp NEB RQID [facility]S [facility] Last Admin: 05/08/18 08:00 Dose: 1 amp Alprazolam (Xanax -) 0.25 mg PO Q12H PRN PRN Reason: ANXIETY Last Admin: 05/08/18 10:03 Dose: 0.25 mg Aspirin (Asa -) 81 mg PO DAILY [facility] Last Admin: 05/08/18 09:57 Dose: 81 mg Atorvastatin Calcium (Lipitor -) 80 mg PO HS [facility] 234 [facility] Last Admin: 05/07/18 21:05 Dose: 80 mg Azithromycin (Zithromax -) 250 mg PO 0600 [facility] Last Admin: 05/08/18 06:22 Dose: 250 mg Budesonide/Formoterol Fumarate (Symbicort 160/4.5mcg -) 2 puff IH BID [facility] Last Admin: 05/08/18 09:53 Dose: 2 puff Clopidogrel Bisulfate (Plavix -) 75 mg PO DAILY [facility] Last Admin: 05/08/18 09:57 Dose: 75 mg Clotrimazole (Lotrimin 1% Cream -) 1 applic TP BID [facility] Last Admin: 05/08/18 09:58 Dose: Not Given Docusate Sodium (Colace -) 300 mg PO HS [facility] Last Admin: 05/07/18 21:04 Dose: 300 mg Fluticasone Propionate (Flonase -) 2 spray NS BID [facility] Last Admin: 05/08/18 09:56 Dose: 2 spray Folic Acid (Folic Acid -) 1 mg PO DAILY [facility] Last Admin: 05/08/18 09:57 Dose: 1 mg Furosemide (Lasix -) 20 mg PO DAILY [facility] Last Admin: 05/08/18 09:57 Dose: 20 mg Guaifenesin (Robitussin Dm -) 10 ml PO Q6H PRN PRN Reason: COUGH Insulin Aspart (Novolog Vial Sliding Scale -) 1 vial SQ ACHS [facility]; Protocol Last Admin: 05/08/18 06:23 Dose: Not Given Isosorbide Mononitrate (Imdur -) 30 mg PO DAILY [facility] Last Admin: 05/08/18 09:57 Dose: 30 mg Meclizine HCl (Antivert -) 25 mg PO Q6H PRN PRN Reason: VERTIGO Methylprednisolone Sodium Succinate (Solu-Medrol -) 40 mg IVPB Q8H [facility] 234 [facility] Last Admin: 05/08/18 03:30 Dose: 40 mg Montelukast Sodium (Singulair -) 10 mg PO HS [facility] Last Admin: 05/07/18 21:05 Dose: 10 mg Mupirocin (Bactroban 2% Ointment -) 1 applic TP BID [facility] Last Admin: 05/08/18 09:58 Dose: Not Given Nebivolol (Bystolic -) 5 mg PO DAILY [facility] Last Admin: 05/08/18 09:57 Dose: 5 mg Nitroglycerin (Nitrostat -) 0.4 mg SL AM PRN PRN Reason: PAIN LEVEL 6-10 Last Admin: 05/06/18 04:19 Dose: 0.4 mg Nystatin (Nystatin Oral Suspension -) 500,000 units PO Q6HPO [facility] 234 [facility] Last Admin: 05/08/18 06:22 Dose: 500,000 units Oxycodone HCl (Roxicodone -) 5 mg PO Q8H PRN PRN Reason: PAIN LEVEL 7 - 10 Last Admin: 05/03/18 06:11 Dose: 5 mg Pantoprazole Sodium (Protonix -) 40 mg PO DAILY [facility] Last Admin: 05/08/18 09:57 Dose: 40 mg Potassium Chloride (K-Dur -) 10 meq PO BID [facility] 234 [facility]S [facility] Last Admin: 05/08/18 09:57 Dose: 10 meq Ranitidine HCl (Zantac -) 150 mg PO DAILY [facility] 234 [facility]S [facility] Last Admin: 05/08/18 09:57 Dose: 150 mg Ranolazine (Ranexa -) 500 mg PO BID [facility] 234 [facility] Last Admin: 05/08/18 09:57 Dose: 500 mg Sodium Chloride ([place] Nasal [place] -) 2 spray NS TID [facility] 234 [facility]S [facility] Last Admin: 05/08/18 06:22 Dose: 2 spray Valsartan (Diovan -) 40 mg PO DAILY [facility] 234 [facility] Last Admin: 05/08/18 09:57 Dose: 40 mg Verapamil HCl (Calan Sr -) 240 mg PO BID [facility] 234 [facility] Last Admin: 05/08/18 09:57 Dose: 240 mg Gen: NAD at rest HEENT: +thrush Heart: RRR Lung: distant breath sounds, scattered wheeze Abd: soft, nontender Ext: distal edema Laboratory Results - last 24 hr 05/07/18 05/07/18 05/08/18 06:30 20:53 06:21 Total Counted 100 Neutrophils % (Manual) 94.0 H Band Neutrophils % 1.0 Lymphocytes % (Manual) 3.0 L D Monocytes % (Manual) 1 L Platelet Estimate Adequate POC Glucometer 128 131 A/P Acute COPD Exacerbation LV Diastolic Dysfunction CAD HTN Hyperlipidemia PAD CKD Thrush - Can change to Prednisone 40mg OD: patient has requested a "longer" taper. Can do a 10 to 14 day taper course - inhaled bronchodilators standing and PRN - Lasix - monitor urine output, creatinine - O2 to keep Spo2 >90% - DVT prophylaxis - There is no Pulmonary contraindication for D/C: should be on a LAMA on discharge such as Spiriva daily (In combination with Symbicort) Dr Bueno
--- NOTE | 2018-05-08 12:52 | PN ---
Progress Note, Physician History of Present Illness: Non-productive cough, wheeze and dyspnea slowly improving. - Current Medication List Current Medications: Active Medications Acetaminophen (Tylenol -) 650 mg PO Q6H PRN PRN Reason: FEVER Last Admin: 05/08/18 06:22 Dose: 650 mg Acetaminophen (Tylenol -) 325 mg PO Q8H PRN PRN Reason: PAIN LEVEL 7 - 10 Last Admin: 05/02/18 01:32 Dose: 325 mg Al Hydroxide/Mg Hydroxide (Mylanta Oral Suspension -) 30 ml PO Q6H PRN PRN Reason: DYSPEPSIA Last Admin: 05/03/18 21:23 Dose: 30 ml Albuterol/Ipratropium (Duoneb -) 1 amp NEB RQID [facility] Last Admin: 05/08/18 12:05 Dose: 1 amp Alprazolam (Xanax -) 0.25 mg PO Q12H PRN PRN Reason: ANXIETY Last Admin: 05/08/18 10:03 Dose: 0.25 mg Aspirin (Asa -) 81 mg PO DAILY [facility] Last Admin: 05/08/18 09:57 Dose: 81 mg Atorvastatin Calcium (Lipitor -) 80 mg PO HS [facility] Last Admin: 05/07/18 21:05 Dose: 80 mg Azithromycin (Zithromax -) 250 mg PO 0600 [facility] Last Admin: 05/08/18 06:22 Dose: 250 mg Budesonide/Formoterol Fumarate (Symbicort 160/4.5mcg -) 2 puff IH BID [facility] Last Admin: 05/08/18 09:53 Dose: 2 puff Clopidogrel Bisulfate (Plavix -) 75 mg PO DAILY [facility] Last Admin: 05/08/18 09:57 Dose: 75 mg Clotrimazole (Lotrimin 1% Cream -) 1 applic TP BID [facility] Last Admin: 05/08/18 09:58 Dose: Not Given Docusate Sodium (Colace -) 300 mg PO HS [facility] Last Admin: 05/07/18 21:04 Dose: 300 mg Fluticasone Propionate (Flonase -) 2 spray NS BID [facility] Last Admin: 05/08/18 09:56 Dose: 2 spray Folic Acid (Folic Acid -) 1 mg PO DAILY [facility] Last Admin: 05/08/18 09:57 Dose: 1 mg Furosemide (Lasix -) 20 mg PO DAILY [facility] Last Admin: 10/14/18 09:57 Dose: 20 mg Guaifenesin (Robitussin Dm -) 10 ml PO Q6H PRN PRN Reason: COUGH Insulin Aspart (Novolog Vial Sliding Scale -) 1 vial SQ ACHS [facility]; Protocol Last Admin: 05/08/18 11:55 Dose: Not Given Isosorbide Mononitrate (Imdur -) 30 mg PO DAILY [facility] Last Admin: 05/08/18 09:57 Dose: 30 mg Meclizine HCl (Antivert -) 25 mg PO Q6H PRN PRN Reason: VERTIGO Methylprednisolone Sodium Succinate (Solu-Medrol -) 40 mg IVPB Q8H [facility] Last Admin: 05/08/18 11:57 Dose: 40 mg Montelukast Sodium (Singulair -) 10 mg PO HS [facility] Last Admin: 05/07/18 21:05 Dose: 10 mg Mupirocin (Bactroban 2% Ointment -) 1 applic TP BID [facility] Last Admin: 05/08/18 09:58 Dose: Not Given Nebivolol (Bystolic -) 5 mg PO DAILY [facility] Last Admin: 05/08/18 09:57 Dose: 5 mg Nitroglycerin (Nitrostat -) 0.4 mg SL AM PRN PRN Reason: PAIN LEVEL 6-10 Last Admin: 05/06/18 04:19 Dose: 0.4 mg Nystatin (Nystatin Oral Suspension -) 500,000 units PO Q6HPO [facility] Last Admin: 05/08/18 11:57 Dose: 500,000 units Oxycodone HCl (Roxicodone -) 5 mg PO Q8H PRN PRN Reason: PAIN LEVEL 7 - 10 Last Admin: 05/03/18 06:11 Dose: 5 mg Pantoprazole Sodium (Protonix -) 40 mg PO DAILY [facility] Last Admin: 05/08/18 09:57 Dose: 40 mg Potassium Chloride (K-Dur -) 10 meq PO BID [facility] Last Admin: 05/08/18 09:57 Dose: 10 meq Ranitidine HCl (Zantac -) 150 mg PO DAILY [facility] Last Admin: 05/08/18 09:57 Dose: 150 mg Ranolazine (Ranexa -) 500 mg PO BID [facility] Last Admin: 05/08/18 09:57 Dose: 500 mg Sodium Chloride ([place] Nasal [place] -) 2 spray NS TID [facility] Last Admin: 05/08/18 06:22 Dose: 2 spray Valsartan (Diovan -) 40 mg PO DAILY [facility] Last Admin: 05/08/18 09:57 Dose: 40 mg Verapamil HCl (Calan Sr -) 240 mg PO BID [facility] Last Admin: 05/08/18 09:57 Dose: 240 mg - Objective Vital Signs: Vital Signs Temperature 97.7 F 05/08/18 07:04 Pulse Rate 68 05/08/18 07:04 Respiratory Rate 20 05/08/18 07:04 Blood Pressure 163/69 05/08/18 07:04 O2 Sat by Pulse Oximetry (%) 98 05/06/18 21:00 Constitutional: Yes: No Distress, Calm Neck: Yes: Supple Cardiovascular: Yes: Regular Rate and Rhythm Respiratory: Yes: Regular, Diminished Gastrointestinal: Yes: Normal Bowel Sounds, Soft Edema: No Labs: CBC, BMP 05/07/18 06:30 05/07/18 06:30 INR, PTT INR Cancelled 04/29/18 15:44 - ....Imaging Chest X-ray: Report Reviewed (NAD) EKG: Report Reviewed (NSR) Problem List - Problems (1) Shortness of breath Code(s): R06.02 - SHORTNESS OF BREATH (2) COPD exacerbation Code(s): J44.1 - CHRONIC OBSTRUCTIVE PULMONARY DISEASE W (ACUTE) EXACERBATION (3) Coronary artery disease Code(s): I25.10 - ATHSCL HEART DISEASE OF [place] CORONARY ARTERY W/O ANG PCTRS Qualifiers: Coronary Disease-Associated Artery/Lesion type: [place] artery [place] vs. transplanted heart: [place] heart Associated angina: without angina Qualified Code(s): I25.10 - Atherosclerotic heart disease of [place] coronary artery without angina pectoris (4) H/O carotid endarterectomy Code(s): Z98.890 - OTHER SPECIFIED POSTPROCEDURAL STATES (5) HTN (hypertension) Code(s): I10 - ESSENTIAL (PRIMARY) HYPERTENSION Qualifiers: Hypertension type: essential hypertension Qualified Code(s): I10 - Essential (primary) hypertension (6) History of myocardial infarction Code(s): I25.2 - OLD MYOCARDIAL INFARCTION (7) Hyperlipidemia Code(s): E78.5 - HYPERLIPIDEMIA, UNSPECIFIED Qualifiers: Hyperlipidemia type: pure hypercholesterolemia Qualified Code(s): E78.00 - Pure hypercholesterolemia, unspecified; E78.0 - Pure hypercholesterolemia (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 Diastolic dysfunction with resolved failure 2. Acute exacerbation of COPD improving 3. CAD post ID PCI 2011, angina pectoris 4. Systolic murmur, AV sclerosis rule out stenosis 5. HTN/HCVD 6. Hyperlipidemia 7. Bilateral carotid artery disease post right CEA 8. Mesenteric ischemia post SMA bypass 2011 9. PAD post intervention w/o sig stenosis 10. Hyperkalemia 11. H/o left frontal stroke 12. H/o Renal Failure (required temporary dialysis 2011) PLAN: 1. Continue Verapamil 240 bid with caution 2. Continue Bystolic 5 qd with caution 3. Continue Imdur 30 qd and Ranexa 500 bid 4. Continue Diovan 40 qd with monitor K 5. Continue Lipitor 80 qhs 6. Continue home oral Lasix dose 20 po qd 7. Continue Plavix 75 qd and resumed ASA 81 qd per neuro recs 8. Follow up with Dr. 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 BD, empiric abx, oral steroid taper with GI protection, Singulair, O2 to keep Spo2 >90%, DVT prophylaxis -
--- NOTE | 2018-05-08 15:16 | DS ---
Physical Examination Vital Signs: Vital Signs Temperature 98.8 F 05/08/18 10:00 Pulse Rate 72 05/08/18 10:00 Respiratory Rate 18 05/08/18 10:00 Blood Pressure 141/56 L 05/08/18 10:00 O2 Sat by Pulse Oximetry (%) 98 05/06/18 21:00 Findings/Remarks: feels better cleared by cardio and pulm to go home po steroids as ordered inhalers; po lasix; close f/u outpt as advised had recent O2 sat/RA checked O2 sat>90% / RA with exercise Constitutional: Yes: No Distress, Calm Eyes: Yes: Conjunctiva Clear HENT: Yes: Atraumatic Neck: Yes: Supple Cardiovascular: Yes: Regular Rate and Rhythm Respiratory: Yes: CTA Bilaterally Gastrointestinal: Yes: Soft. No: Distention Renal/: No: CVA Tenderness - Left, CVA Tenderness - Right Musculoskeletal: No: Joint Stiffness, Joint Swelling Extremities: No: Cold, Cool, Cyanosis Edema: No Integumentary: No: Rash, Venous Stasis Changes Neurological: Yes: WNL, Alert, Oriented ...Motor Strength: WNL Psychiatric: Yes: WNL, Alert, Oriented. No: Agitated, Suicidal Ideation Labs: CBC, BMP 05/07/18 06:30 05/07/18 06:30 Discharge Summary Reason For Visit: OBSTRUCTIVE CHRONIC BRONCHITIS WITH EXACERBATION Current Active Problems COPD (chronic obstructive pulmonary disease) (Acute) Diastolic dysfunction (Acute) Lower extremity edema (Acute) Shortness of breath (Acute) Procedures: Principal: CHF and COPD exac Other Procedures: IV lasix; IV steoids, nebs, inhalers;. seen by pulm and cardiology; Hospital Course: improved with above; f/u as advised; take meds as ordered Condition: Stable - Instructions Diet, Activity, Other Instructions: f/u PCP cardio and pulm in 1-2 weeks outpt Home nebs, inhalers per pulm RTER if worse or recurrent falls PFX check BP home qam call MD if < 110/60 or > 150/90 Referrals: Casi Cohn [Primary Care Provider] - Calvin Bueno MD [Staff Physician] - Tayo Emerson MD [Staff Physician] - Disposition: VNS/HOME HEALTH CARE - Home Medications Comprehensive Discharge Medication List: Ambulatory Orders Albuterol 2.5/Ipratropium 0.5 [Duoneb -] 1 neb NEB Q4H PRN #0 vial 12/27/12 Atorvastatin Calcium [Lipitor] 80 mg PO HS #0 tablet 12/27/12 Clopidogrel Bisulfate [Plavix -] 75 mg PO DAILY #0 tablet 12/27/12 Folic Acid - 1 mg PO DAILY #0 tablet 12/27/12 Furosemide [Lasix -] 20 mg PO DAILY #0 tablet 12/27/12 Isosorbide Mononitrate [Imdur] 30 mg PO BID #0 tab.sr.24h 12/27/12 Montelukast Na [Singulair -] 10 mg PO HS #0 tablet 12/27/12 Ranitidine [Zantac -] 150 mg PO DAILY #0 tablet 12/27/12 Tiotropium [place] [Spiriva] 1 inh IH DAILY #0 inh 12/27/12 Fluticasone Prop 0.05% Nasal [Flonase -] 1 - 2 spray NS BID #1 spray.pump Mag Hydrox/Al Hydrox/Simeth [Mylanta Oral Suspension -] 30 ml PO Q6H PRN #0 cup 04/16/15 Acetaminophen [Tylenol .Regular Strength -] 650 mg PO Q6H PRN #0 tablet Docusate Sodium [Colace -] 300 mg PO HS capsule 08/16/16 Nitroglycerin 0.4 mg SL AM PRN #90 tab.subl 08/16/16 Pantoprazole Sodium [Protonix -] 40 mg PO DAILY #90 tablet.ec 08/16/16 Ranolazine [Ranexa -] 500 mg PO BID #180 tab 08/16/16 Verapamil HCl ER [Calan Sr -] 240 mg PO BID #180 tablet.er 08/16/16 Potassium Chloride [K-Dur -] 10 meq PO BID 02/15/18 Azithromycin [Zithromax 250mg Tablets -] 250 mg PO DAILY #30 tablet 03/03/18 Budesonide/Formeterol Fumarate [SYMBICORT 160/4.5mcg -] 2 puff IH BID #3 inhaler 03/03/18 Guaifenesin Dm [Robitussin Dm -] 10 ml PO Q6H PRN cup 03/03/18 Sodium Chloride Nasal [place] [[place] Nasal [place] -] 2 spray NS TID spray Mupirocin Ointment [Bactroban 2% Ointment -] 1 applic TP BID #1 tube 03/13/18 Clotrimazole [Antifungal] 30 gm TP BID #1 cream..g. 03/20/18 Alprazolam [Xanax] 0 mg PO PRN PRN 04/29/18
[2018-05-08 15:20] VITALS: BP 110/48; PULSE 78; TEMP 97.5
[2018-05-08] MEDS ORDERED: INSULIN (NOVOLOG) ASPART 100 UNITS/ML 10ML VIAL ONE (17:22)
== END 2018-05-08 18:45 | disposition home health service (06) | DRG 291 ==
LOC: JER 15:00 → JERBED 19:05 → J8W 04-30 14:51
PROVIDERS: ADMIT Internal Medicine; ATTEND Internal Medicine
DX: I13.0 Hypertensive heart and chronic kidney disease with heart failure and stage 1 through stage 4 chronic kidney disease, or unspecified chronic kidney disease (principal); I50.33 Acute on chronic diastolic (congestive) heart failure; K55.059 Acute (reversible) ischemia of intestine, part and extent unspecified; J44.1 Chronic obstructive pulmonary disease with (acute) exacerbation; I25.2 Old myocardial infarction; K57.90 Diverticulosis of intestine, part unspecified, without perforation or abscess without bleeding; K29.70 Gastritis, unspecified, without bleeding; K21.9 Gastro-esophageal reflux disease without esophagitis; F41.8 Other specified anxiety disorders; E04.9 Nontoxic goiter, unspecified; D64.9 Anemia, unspecified; K44.9 Diaphragmatic hernia without obstruction or gangrene; I73.9 Peripheral vascular disease, unspecified; H53.8 Other visual disturbances; E78.5 Hyperlipidemia, unspecified; R60.0 Localized edema; N18.9 Chronic kidney disease, unspecified; I65.29 Occlusion and stenosis of unspecified carotid artery; K22.719 Barrett's esophagus with dysplasia, unspecified; E66.9 Obesity, unspecified; Z68.28 Body mass index [BMI] 28.0-28.9, adult; B37.9 Candidiasis, unspecified; E87.5 Hyperkalemia; I25.119 Atherosclerotic heart disease of native coronary artery with unspecified angina pectoris; Z87.891 Personal history of nicotine dependence
CPT/HCPCS: 36415; 70450-TC; 71045-TC-FY; 71046-TC-FY; 73610-TC-LT-FY; 73610-TC-RT-FY; 73630-TC-LT; 73630-TC-RT-FY; 80048; 80053; 81003; 81015; 82550; 82803; 82962; 83690; 83735; 83880; 84100; 84439; 84443; 84481; 84484; 85025; 87086; 90688; 93005; 93010; 93306-TC; 93925-TC; 93970-TC; 94640; 99285-25; G0008; J0131

== ENCOUNTER 2018-07-08 18:48 | Inpatient (IN) | payer OTHER ==
--- NOTE | 2018-07-08 19:03 | PDOC ---
Rapid Medical Evaluation Time Seen by Provider: 07/08/18 18:59 Medical Evaluation: Allergies Allergy/AdvReac Type Severity Reaction Status Date / Time No Known Drug Allergies Allergy Verified 04/29/18 15:06 I have performed a brief in-person evaluation of this patient. The patient presents with a chief complaint of: SOB x 6 days. hx of COPD, asthma. She is currently tapering prednisone and is on augmentin. Condition is worsening Pertinent physical exam findings: can only speak 2 words per breath. audible wheezing. tight expiratory wheezing across all [place] I have ordered the following: labs, duoneb, CXR The patient will proceed to the ED for further evaluation. Discharge Disposition - Diagnosis Shortness of breath - Referrals Referrals: Casi Cohn [Primary Care Provider] - - Patient Instructions - Post Discharge Activity
[2018-07-08] MEDS ORDERED: ALBUTEROL SO4 2.5/IPRATROPIUM 0.5 INH SOL 3 ML VIAL.NEB. NEB ONE ×2 (19:17→19:52)
--- NOTE | 2018-07-08 19:27 | PDOC ---
History of Present Illness - General Chief Complaint: Shortness of Breath Stated Complaint: Shortness of Breath/COPD Time Seen by Provider: 07/08/18 18:59 - History of Present Illness Initial Comments: 07/08/18 19:41 Patient is a 63 year old female with past medical history of CAD, HTN, [place] s/p angioplasty (2011), COPD, asthma, mesenteric ischemia s/p SMA bypass (2011), diastolic CHF, renal failure (temporary dialysis in 2011), and PVD, presented with shortness of breath since 6 days ago. Patient was recently admitted for CHF and COPD exacerbation 2 months ago, where she was sent home with tapering steroids. Six days ago, patient started experiencing nasal congestion, cough with shortness of breath and chest tightness, she started Prednisone taper and Augmentin, as she would do when she has dyspnea. Today, patient reported worsening dyspnea and came to the ED. Denies fever, chills, chest pain, palpitations, nausea, vomiting, abdominal pain, diarrhea, constipation, urinary symptoms. Past History - Past Medical History Allergies/Adverse Reactions: Allergies Allergy/AdvReac Type Severity Reaction Status Date / Time No Known Drug Allergies Allergy Verified 04/29/18 15:06 Home Medications: Ambulatory Orders Albuterol 2.5/Ipratropium 0.5 [Duoneb -] 1 neb NEB Q4H PRN #0 vial 12/27/12 Atorvastatin Calcium [Lipitor] 80 mg PO HS #0 tablet 12/27/12 Clopidogrel Bisulfate [Plavix -] 75 mg PO DAILY #0 tablet 12/27/12 Folic Acid - 1 mg PO DAILY #0 tablet 12/27/12 Isosorbide Mononitrate [Imdur] 30 mg PO BID #0 tab.sr.24h 12/27/12 Montelukast Na [Singulair -] 10 mg PO HS #0 tablet 12/27/12 Ranitidine [Zantac -] 150 mg PO DAILY #0 tablet 12/27/12 Tiotropium [place] [Spiriva] 1 inh IH DAILY #0 inh 12/27/12 Fluticasone Prop 0.05% Nasal [Flonase -] 1 - 2 spray NS BID #1 spray.pump Mag Hydrox/Al Hydrox/Simeth [Mylanta Oral Suspension -] 30 ml PO Q6H PRN #0 cup 04/16/15 Acetaminophen [Tylenol .Regular Strength -] 650 mg PO Q6H PRN #0 tablet Docusate Sodium [Colace -] 300 mg PO HS capsule 08/16/16 Nitroglycerin 0.4 mg SL AM PRN #90 tab.subl 08/16/16 Pantoprazole Sodium [Protonix -] 40 mg PO DAILY #90 tablet.ec 08/16/16 Ranolazine [Ranexa -] 500 mg PO BID #180 tab 08/16/16 Verapamil HCl ER [Calan Sr -] 240 mg PO BID #180 tablet.er 08/16/16 Potassium Chloride [K-Dur -] 10 meq PO BID 02/15/18 Budesonide/Formeterol Fumarate [SYMBICORT 160/4.5mcg -] 2 puff IH BID #3 inhaler 03/03/18 Guaifenesin Dm [Robitussin Dm -] 10 ml PO Q6H PRN cup 03/03/18 Sodium Chloride Nasal [place] [[place] Nasal [place] -] 2 spray NS TID spray Mupirocin Ointment [Bactroban 2% Ointment -] 1 applic TP BID #1 tube 03/13/18 Clotrimazole [Antifungal] 30 gm TP BID #1 cream..g. 03/20/18 Alprazolam [Xanax] 0 mg PO PRN PRN 04/29/18 Albuterol 0.083% Nebulizer [place] [Ventolin 0.083% Nebulizer Soln -] 1 amp NEB Q4H PRN amp 05/08/18 Aspirin [ASA -] 81 mg PO DAILY tab.chew 05/08/18 Azithromycin [Zithromax 250mg Tablets -] 250 mg PO DAILY #30 tablet 05/08/18 Furosemide [Lasix -] 20 mg PO BID #60 tablet 05/08/18 Meclizine HCl [Antivert -] 25 mg PO Q6H PRN #90 tablet 05/08/18 Nebivolol [Bystolic -] 5 mg PO DAILY #30 tab 05/08/18 Valsartan [Diovan] 40 mg PO DAILY #30 tablet 05/08/18 predniSONE [Deltasone -] 10 mg PO DAILY #30 tablet 05/08/18 Anemia: No Asthma: Yes Cancer: No Cardiac Disorders: Yes (HI X 2) CVA: No COPD: Yes CHF: No Dementia: No Diabetes: No GI Disorders: Yes (HERNIA, GERD) Disorders: No HTN: Yes Hypercholesterolemia: Yes Liver Disease: No Seizures: No Thyroid Disease: No - Surgical History Abdominal Surgery: Yes Appendectomy: No Cardiac Surgery: Yes (Angioplasty, Carotid Artery) Cholecystectomy: Yes Lung Surgery: No Neurologic Surgery: No Orthopedic Surgery: No - Immunization History Immunization Up to Date: Yes (no flu or pna) - Suicide/Smoking/Psychosocial Hx Smoking Status: Yes Smoking History: Former smoker Have you smoked in the past 12 months: No Number of Cigarettes Smoked Daily: 10 If you are a former smoker, when did you quit?: 2013 Information on smoking cessation initiated: No 'Breaking Loose' booklet given: 12/20/12 Hx Alcohol Use: No Drug/Substance Use Hx: No Substance Use Type: None Hx Substance Use Treatment: No Review of Systems - Review of Systems Constitutional: No: Chills, Fever, Night Sweats, Weakness HEENTM: Yes: Nose Congestion. No: Recent change in vision, Ear Discharge, Difficulty Swallowing Respiratory: Yes: Cough, Shortness of Breath, Wheezing Cardiac (ROS): No: Chest Pain, Lightheadedness, Palpitations ABD/GI: No: Abdominal Distended, Constipated, Diarrhea, Nausea, Vomiting : No: Burning, Dysuria, Discharge Musculoskeletal: No: Back Pain, Joint Pain Neurological: No: Headache, Numbness, Tingling, Weakness *Physical Exam - Vital Signs Last Vital Signs Temp Pulse Resp BP Pulse Ox 98.0 F 88 28 H 137/68 93 L 07/08/18 18:59 07/08/18 18:59 07/08/18 18:59 07/08/18 18:59 07/08/18 18:59 - Physical Exam Comments: 07/08/18 20:06 General: awake, alert, oriented, in mild distress Head: no signs of head trauma HEENT: PERRLA, EOMI, sclerae anicteric, no nasal discharge, non-erythematous oropharynx, dry mucous membranes Neck:soft, supple, trachea midline without thyroid enlargement Lungs:+wheezes bilaterally, decreased breath sounds on bilateral bases Heart: regular rate and rhythm, normal S1/S2, no m,r,g Abdomen:soft, nontender, nondistended, NABS Ext:+2 pulses, no peripheral edema, cyanosis or clubbing Moderate Sedation - Procedure Monitoring Vital Signs: Procedure Monitoring Vital Signs Temperature 98.0 F 07/08/18 18:59 Pulse Rate 88 07/08/18 18:59 Respiratory Rate 28 H 07/08/18 18:59 Blood Pressure 137/68 07/08/18 18:59 O2 Sat by Pulse Oximetry (%) 93 L 07/08/18 18:59 ED Treatment Course - LABORATORY CBC & Chemistry Diagram: 07/08/18 19:50 07/08/18 19:50 Medical Decision Making - Medical Decision Making 07/08/18 20:08 Patient is a 63 year old female presented with shortness of breath for 6 days. Started prednisone, augmentin and duonebs at home since symptoms started. DDx include but not limited to COPD exacerbation, CHF, PNA, ACS CBC, CMP cardiac profile CXR EKG IV solu medrol 125 mg Duo nebs 07/08/18 20:43 Patient completed duonebs / IV solu medrol 125 given Patient still reports dyspnea speaks in phrases +wheezes bilaterally *DC/Admit/Observation/Transfer Diagnosis at time of Disposition: COPD exacerbation - Discharge Dispostion Decision to Admit order: Yes - Referrals Referrals: Casi Cohn [Primary Care Provider] - - Patient Instructions - Post Discharge Activity
[2018-07-08] MEDS: ALBUTEROL SO4 2.5/IPRATROPIUM 0.5 INH SOL 3 ML VIAL.NEB. NEB SCH ×4 (19:40→20:08)
[2018-07-08] MEDS ORDERED: methylPREDNISolone NA SUCC 125 MG/2 ML VIAL IVPUSH ONE (19:51)
[2018-07-08 19:59] LABS: BASO % 0.6 % (0-2.0); EOS % 1.1 % (0-4.5); HEMATOCRIT 37.6 % (32.4-45.2); HEMOGLOBIN 12.9 GM/dL (10.7-15.3); LYMPH % 16.8 % (8-40); MCHC 34.3 g/dl (32.0-36.0); MEAN CELL VOLUME 90.2 fl (80-96); MEAN PLT VOLUME 6.6 fl (7.5-11.1); MONO % 10.3 % (3.8-10.2); NEUT % 71.2 % (42.8-82.8); PLATELET COUNT 327 K/MM3 (134-434); RBC 4.17 M/mm3 (3.60-5.2); RDW 15.4 % (11.6-15.6); WHITE BLOOD COUNT 8.5 K/mm3 (4.0-10.0)
[2018-07-08] MEDS ORDERED: methylPREDNISolone NA SUCC 125 MG/2 ML VIAL ONE (20:08)
[2018-07-08 20:23] LABS: ALK PHOS 103 U/L (45-117); ANION GAP 9 MMOL/L (8-16); BILIRUBIN,TOTAL 0.3 mg/dL (0.2-1); BLOOD UREA NITROGEN 9 mg/dL (7-18); CALCIUM 8.9 mg/dL (8.5-10.1); CHLORIDE 99 mmol/L (98-107); CO2 30 mmol/L (21-32); CREATININE 0.8 mg/dL (0.55-1.3); GLUCOSE,RANDOM 88 mg/dL (74-106); POTASSIUM 3.7 mmol/L (3.5-5.1); SGOT/AST 13 U/L (15-37); SGPT/ALT 16 U/L (13-61); SODIUM 138 mmol/L (136-145); TOT PROT 7.1 g/dl (6.4-8.2)
--- NOTE | 2018-07-08 20:39 | PDOC ---
Attending Attestation - HPI HPI: 07/08/18 21:04 The patient is a 63-year-old female with a past medical history significant for CAD, HTN, [place] s/p angioplasty, COPD, diastolic CHF, PVD and mesenteric ischemia s /p SMA bypass (2011) presents to the emergency department with shortness of breath. The patient presents with 5 days of SOB thats been progressively worsening. The patient reports a new onset of yellowish sputum and dyspnea with ambulation. The patient reports prior to coming to the ER, she had x3 nebulizer , without relief. The patient reports on Wednesday she was started on a Prednisone taper and started on AUgmentin 875 B.I.D on Wednesday. The patient reports additional symptoms of poor appetite. Denies fever, chills, chest pain, abdominal pain, urinary symptoms or changes in bowel habits. Allergies: NKDA PCP: Dr. Cohn. - Physicial Exam PE: 07/08/18 21:14 GENERAL: The patient is in no acute distress. HEAD: Normal with no signs of trauma. EYES: PERRLA, EOMI, sclera anicteric, conjunctiva clear. ENT: Ears normal, nares patent, oropharynx clear without exudates. Moist mucous membranes. NECK: Normal range of motion, supple without lymphadenopathy, JVD, or masses. LUNGS: +poor ait entry, expiratory wheezing, not typenic, not labored with breathing. no crackles. HEART:Regular rate and rhythm, normal S1 and S2 without murmur, rub or gallop. ABDOMEN: no abdominal tenderness. Soft, nontender. No guarding, no rebound. No masses palpable. EXTREMITIES: Normal range of motion, no edema. No clubbing or cyanosis. No erythema, or tenderness. NEUROLOGICAL: Cranial nerves II through XII grossly intact. Normal speech. No focal neurological deficits. MUSCULOSKELETAL: Back non-tender to palpation, no CVA tenderness SKIN: Warm, Dry, normal turgor, no rashes or lesions noted. - Medical Decision Making 07/08/18 21:04 Documentation prepared by Jenny Hyde, acting as medical billing representative for Krystal Chandler MD. <Jenny Hyde - Last Filed: 07/08/18 21:14> - Resident Resident Name: Leonor Thao - ED Attending Attestation I have performed the following: I have examined & evaluated the patient, The case was reviewed & discussed with the resident, I agree w/resident's findings & plan, Exceptions are as noted - Medical Decision Making 07/08/18 20:35 Laboratory Tests 07/08/18 07/08/18 19:50 19:50 WBC 8.5 Hgb 12.9 Hct 37.6 Plt Count 327 D BUN 9 Creatinine 0.8 Creatine Kinase 49 Troponin I < 0.02 B-Natriuretic Peptide 224.0 H CXR - Pt has now used maximal outpatient therapy with no improvement in her respiratory status Pt has difficulty walking short distances No fevers Sputum color change Will plan to : Give Solumedrol continue nebs Admit to pmd 07/08/18 21:05 upon re assessment, pt states she feels "mensa mens" Refusing BiPAP O2 - 93% <Krystal Chandler - Last Filed: 07/09/18 19:09>
[2018-07-08 22:15] LABS: ARTERIAL BLD GAS O2 SATURATION 91.7 % (90-98.9); ARTERIAL BLOOD GAS BASE EXCESS 2.9 meq/l (-2-2); ARTERIAL BLOOD GAS PCO2 42.1 mmHg (35-45); ARTERIAL BLOOD GAS PO2 64.1 mmHg (80-100); ARTERIAL BLOOD GAS pH 7.42 (7.35-7.45)
[2018-07-08 22:21] LABS: ALLENS TEST POSITIVE
[2018-07-08] MEDS ORDERED: ALBUTEROL SO4 2.5/IPRATROPIUM 0.5 INH SOL 3 ML VIAL.NEB. NEB PRN (22:41)
[2018-07-08] MEDS: SODIUM CHLORIDE NASAL SPRAY 44 ML BOTTLE NS SCH (23:15)
[2018-07-08] MEDS: BUDESONIDE/FORMETEROL FUMARATE 160/4.5 mcg INHALER IH SCH (23:15)
[2018-07-08] MEDS ORDERED: MAG HYDROX/AL HYDROX/SIMETH 30 ML UNIT-DOSE CUP PO PRN (23:31)
[2018-07-08] MEDS ORDERED: MECLIZINE HCL 25 MG TABLET (FP) PO PRN (23:31)
[2018-07-08] MEDS ORDERED: guaiFENesin/D-METHORPHAN HB 10 ML UNIT-DOSE CUPS PO PRN (23:31)
[2018-07-09] MEDS: methylPREDNISolone NA SUCC 40 MG/1 ML VIAL IVPB SCH ×5 (00:59→21:17)
[2018-07-09] MEDS ORDERED: morphine SULFATE 4 MG/ML VIAL ONE (01:08)
[2018-07-09] MEDS: POTASSIUM CHLORIDE TABS 10 MEQ TABLET.ER (FP) PO SCH ×3 (02:26→21:17)
[2018-07-09] MEDS: ALPRAZolam 0.25 MG TABLET PO PRN ×2 (02:26→21:17)
[2018-07-09] MEDS: VERAPAMIL HCL 240 MG E.R. TABLET (FP) PO SCH ×3 (02:26→21:18)
[2018-07-09] MEDS: MONTELUKAST NA 10 MG TABLET PO SCH ×2 (02:26→21:17)
[2018-07-09] MEDS: ATORVASTATIN CA 80 MG TABLET (FP) PO SCH ×2 (02:26→21:17)
[2018-07-09] MEDS ORDERED: FUROSEMIDE 20 MG TABLET (FP) PO SCH (06:00)
--- NOTE | 2018-07-09 06:31 | HP ---
Admitting History and Physical - Primary Care Physician PCP: Casi Cohn - Admission Chief Complaint: cough SOB History of Present Illness: The patient is a 63-year-old female with a past medical history significant for CAD, HTN, UT s/p angioplasty, COPD, diastolic CHF, PVD and mesenteric ischemia s /p SMA bypass (2011) presents to the emergency department with shortness of breath. The patient presents with 5 days of SOB thats been progressively worsening. The patient reports a new onset of yellowish sputum and dyspnea with ambulation. The patient reports prior to coming to the ER, she had x3 nebulizer , without relief. The patient reports on Wednesday she was self started on a Prednisone taper and self started on AUgmentin 875 B.I.D on Wednesday. The patient reports additional symptoms of poor appetite. Denies fever, chills, chest pain, abdominal pain, urinary symptoms or changes in bowel habits. Allergies: NKDA extob, long hx of smoking in the past in ER received nebs O2 and steroids IV and felt better d/w pt her home meds; she received bystolic and valsartan last admission per cardio dr Saul but she said she does not feel good when she takes them and she wants to stop them; she said cardizem 240 mg po bid and imdur 30 mg po bid worked well for her before and she wants to stay with same regimen which was prescribed years ago by cardio dr Manning (however she did not see him in many years); History Source: Patient, Medical Record Limitations to Obtaining History: No Limitations - Past Medical History Cardiovascular: Yes: CAD, HTN, UT (2011 transferred to [facility], no stents, told of ? Prinzmetal angina? ), Other (left ventricular end diastolic dysfunction, peripheral and carotid vascular disease ) Pulmonary: Yes: Asthma, COPD Gastrointestinal: Yes: Diverticulosis, Gastritis, GERD (with short segment Barretts), Hiatal Hernia, Other (Mesenteric ischemia treated with SMA bypass 2011. Incisional hernia.) Renal/: Yes: Renal Failure (required dialysis for several weeks following contrast induced renal fauilure after UT in 2011) Heme/Onc: Yes: Anemia Psych: Yes: Anxiety, Depression Endocrine: Yes: Other (Euthyroid goiter) - Past Surgical History Past Surgical History: Yes: Carotid Endarterectomy, Cholecystectomy, Colonoscopy , Upper Endoscopy - Smoking History Smoking history: Former smoker Have you smoked in the past 12 months: No Aproximately how many cigarettes per day: 10 If you are a former smoker, when did you quit?: 2013 - Alcohol/Substance Use Hx Alcohol Use: No History of Substance Use: reports: None - Social History Usual Living Arrangement: Yes: With Spouse ADL: Independent 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 History of Recent Travel: No Home Medications - Allergies Allergies/Adverse Reactions: Allergies Allergy/AdvReac Type Severity Reaction Status Date / Time No Known Drug Allergies Allergy Verified 04/29/18 15:06 - Home Medications Home Medications: Ambulatory Orders Albuterol 2.5/Ipratropium 0.5 [Duoneb -] 1 neb NEB Q4H PRN #0 vial 12/27/12 Atorvastatin Calcium [Lipitor] 80 mg PO HS #0 tablet 12/27/12 Clopidogrel Bisulfate [Plavix -] 75 mg PO DAILY #0 tablet 12/27/12 Folic Acid - 1 mg PO DAILY #0 tablet 12/27/12 Isosorbide Mononitrate [Imdur] 30 mg PO BID #0 tab.sr.24h 12/27/12 Montelukast Na [Singulair -] 10 mg PO HS #0 tablet 12/27/12 Ranitidine [Zantac -] 150 mg PO DAILY #0 tablet 12/27/12 Tiotropium [place] [Spiriva] 1 inh IH DAILY #0 inh 12/27/12 Fluticasone Prop 0.05% Nasal [Flonase -] 1 - 2 spray NS BID #1 spray.pump Mag Hydrox/Al Hydrox/Simeth [Mylanta Oral Suspension -] 30 ml PO Q6H PRN #0 cup 04/16/15 Acetaminophen [Tylenol .Regular Strength -] 650 mg PO Q6H PRN #0 tablet Docusate Sodium [Colace -] 300 mg PO HS capsule 08/16/16 Nitroglycerin 0.4 mg SL AM PRN #90 tab.subl 08/16/16 Pantoprazole Sodium [Protonix -] 40 mg PO DAILY #90 tablet.ec 08/16/16 Ranolazine [Ranexa -] 500 mg PO BID #180 tab 08/16/16 Verapamil HCl ER [Calan Sr -] 240 mg PO BID #180 tablet.er 08/16/16 Potassium Chloride [K-Dur -] 10 meq PO BID 02/15/18 Budesonide/Formeterol Fumarate [SYMBICORT 160/4.5mcg -] 2 puff IH BID #3 inhaler 03/03/18 Guaifenesin Dm [Robitussin Dm -] 10 ml PO Q6H PRN cup 03/03/18 Sodium Chloride Nasal [place] [[place] Nasal [place] -] 2 spray NS TID spray Mupirocin Ointment [Bactroban 2% Ointment -] 1 applic TP BID #1 tube 03/13/18 Clotrimazole [Antifungal] 30 gm TP BID #1 cream..g. 03/20/18 Alprazolam [Xanax] 0 mg PO PRN PRN 04/29/18 Albuterol 0.083% Nebulizer Fang [Ventolin 0.083% Nebulizer Soln -] 1 amp NEB Q4H PRN amp 05/08/18 Aspirin [ASA -] 81 mg PO DAILY tab.chew 05/08/18 Azithromycin [Zithromax 250mg Tablets -] 250 mg PO DAILY #30 tablet 05/08/18 Furosemide [Lasix -] 20 mg PO BID #60 tablet 05/08/18 Meclizine HCl [Antivert -] 25 mg PO Q6H PRN #90 tablet 05/08/18 Nebivolol [Bystolic -] 5 mg PO DAILY #30 tab 05/08/18 Valsartan [Diovan] 40 mg PO DAILY #30 tablet 05/08/18 predniSONE [Deltasone -] 10 mg PO DAILY #30 tablet 05/08/18 Family Disease History - Family Disease History Family Disease History: Heart Disease: Father ( 73 of melanoma), Mother ( 73 of COPD), Brother ( of throat cancer), CA: Father, Brother, Respiratory: Mother Review of Systems - Review of Systems Constitutional: reports: Loss of Appetite, Weakness (general). denies: Chills, Fever Eyes: denies: Blurred Vision, Double Vision HENT: denies: Difficult Swallowing, Ear Pain, Epistaxis Neck: denies: Stiffness, Tenderness Cardiovascular: reports: Shortness of Breath. denies: Chest Pain, Edema, Palpitations Respiratory: reports: Cough, Exercise Intolerance, SOB, SOB on Exertion, Wheezing Gastrointestinal: denies: Abdominal Pain, Bloating, Constipation, Diarrhea, Vomiting, Vomiting Blood Genitourinary: denies: Dysuria, Flank Pain Musculoskeletal: denies: Back Pain, Joint Swelling Neurological: denies: Change in LOC, Change in Speech, Confusion, Dizziness Hematology/Lymphatic: denies: Easily Bruised, Excessive Bleeding, Swollen Glands Psychiatric: denies: Altered Sleep Pattern, Anxiety, Depression, Panic, Paranoia , Suicidal Physical Examination Vital Signs: Vital Signs Temperature 98 F 07/09/18 02:48 Pulse Rate 89 07/09/18 02:48 Respiratory Rate 22 H 07/09/18 03:04 Blood Pressure 122/62 07/09/18 02:48 O2 Sat by Pulse Oximetry (%) 94 L 07/09/18 03:04 Constitutional: Yes: No Distress, Calm Eyes: Yes: Conjunctiva Clear HENT: Yes: Atraumatic Neck: Yes: Supple Cardiovascular: Yes: Regular Rate and Rhythm Respiratory: Yes: Rales, Rhonchi, Wheezes Gastrointestinal: Yes: Soft, Hernia (L flank). No: Distention, Tenderness Renal/: No: CVA Tenderness - Left, CVA Tenderness - Right, Hematuria Extremities: No: Calf Tenderness, Cold, Cool, Cyanosis Edema: No Integumentary: No: Rash, Venous Stasis Changes Neurological: Yes: WNL, Alert, Oriented ...Motor Strength: WNL Psychiatric: Yes: WNL, Alert, Oriented. No: Agitated, Suicidal Ideation Labs: CBC, BMP 07/08/18 19:50 07/08/18 19:50 Imaging - Results Chest X-ray: Report Reviewed Other: Report Reviewed Assessment/Plan The patient is a 63-year-old female with a past medical history significant for CAD, HTN, UT s/p angioplasty, COPD, diastolic CHF, PVD and mesenteric ischemia s /p SMA bypass (2011) presents to the emergency department with shortness of breath. Not better with Prednisone taper and AUgmentin 875 B.I.D for few days. admit with acute COPD exac and possible PNA IV steroids IV antibiotics O2, nebs pulmonary eval chest CT falls DVT PFX pt asked to shower also pt asked for xanax prn for anxiety; dw pt risks fall tolerance dependence respiratory depression, she is aware to use as needed only; hold for sedation or lethargy d/wpt and staff
[2018-07-09] MEDS ORDERED: PT OWN MED DRAWER 7, Y5N ONE ×5 (06:32→21:03)
[2018-07-09] MEDS: SODIUM CHLORIDE NASAL SPRAY 44 ML BOTTLE NS SCH ×3 (06:34→21:19)
[2018-07-09 07:44] LABS: HEMATOCRIT 36.9 % (32.4-45.2); HEMOGLOBIN 12.1 GM/dL (10.7-15.3); MCH 29.9 pg (25.7-33.7); MCHC 32.9 g/dl (32.0-36.0); MEAN CELL VOLUME 90.9 fl (80-96); MEAN PLT VOLUME 6.9 fl (7.5-11.1); PLATELET COUNT 286 K/MM3 (134-434); RBC 4.07 M/mm3 (3.60-5.2); RDW 15.1 % (11.6-15.6); WHITE BLOOD COUNT 6.3 K/mm3 (4.0-10.0)
[2018-07-09 08:24] LABS: ALBUMIN 3.5 g/dl (3.4-5.0); ALK PHOS 96 U/L (45-117); ANION GAP 7 MMOL/L (8-16); BILIRUBIN,TOTAL 0.4 mg/dL (0.2-1); BLOOD UREA NITROGEN 11 mg/dL (7-18); CHLORIDE 100 mmol/L (98-107); CO2 31 mmol/L (21-32); CREATININE 0.7 mg/dL (0.55-1.3); GLUCOSE,RANDOM 157 mg/dL (74-106); POTASSIUM 4.5 mmol/L (3.5-5.1); SGOT/AST 13 U/L (15-37); SGPT/ALT 15 U/L (13-61); SODIUM 138 mmol/L (136-145); TOT PROT 6.4 g/dl (6.4-8.2)
[2018-07-09] MEDS ORDERED: VALSARTAN 40 MG TABLET (FP) PO SCH (10:00)
[2018-07-09] MEDS ORDERED: POTASSIUM CHLORIDE TABS 10 MEQ TABLET.ER (FP) PO SCH (10:00)
[2018-07-09] MEDS ORDERED: NEBIVOLOL 5 MG TABLET (FP) PO SCH (10:00)
[2018-07-09] MEDS: ASPIRIN 81 MG CHEWABLE TABLETS PO SCH (10:26)
[2018-07-09] MEDS: BUDESONIDE/FORMETEROL FUMARATE 160/4.5 mcg INHALER IH SCH ×2 (10:26→21:19)
[2018-07-09] MEDS: RANOLAZINE E.R. 500 MG TABLET (FP) PO SCH ×3 (10:26→21:19)
[2018-07-09] MEDS: CLOPIDOGREL BISULFATE 75 MG TABLET (FP) PO SCH (10:26)
[2018-07-09] MEDS: RANITIDINE HCL 150 MG TABLET (FP) PO SCH (10:26)
[2018-07-09] MEDS: FOLIC ACID 1 MG TABLET (FP) PO SCH (10:26)
[2018-07-09] MEDS: AZITHROMYCIN 250 MG TABLET PO SCH (10:26)
[2018-07-09] MEDS: PANTOPRAZOLE 40 MG TABLET (FP) PO SCH (10:26)
[2018-07-09] MEDS: ISOSORBIDE MONONITRATE 30 MG TAB.SR.24H (FP) PO SCH ×2 (10:27→17:39)
[2018-07-09] MEDS: MUPIROCIN 2% TOPICAL OINTMENT 22 GM TUBE TP SCH ×2 (10:32→21:18)
[2018-07-09] MEDS: FLUTICASONE PROP 0.05% 16 GM NASAL SPRAY NS SCH ×2 (11:15→21:18)
[2018-07-09] MEDS: TIOTROPIUM BROMIDE 2.5 MCG (SPIRIVA) RESPIMAT INHALER IH SCH (11:15)
--- NOTE | 2018-07-09 11:21 | PN ---
Progress Note (short form) - Note Progress Note: PULMONARY CONSULTATION DICTATED 07/09/18 IMP DYSPNEA ACUTE EXACERBATION OF COPD H/O PULMONARY NODULES ASHD S/P TN HTN DIASTOLIC HF PLAN IV STEROIDS INHALED BRONCHODILATORS O2 ABX CHEST CT PFTS OUTPATIENT AMBULATORY O2 SAT PRIOR TO DISCHARGE DR LEÓN Problem List - Problems (1) COPD exacerbation Code(s): J44.1 - CHRONIC OBSTRUCTIVE PULMONARY DISEASE W (ACUTE) EXACERBATION (2) Shortness of breath Code(s): R06.02 - SHORTNESS OF BREATH (3) ASHD (arteriosclerotic heart disease) Code(s): I25.10 - ATHSCL HEART DISEASE OF [place] CORONARY ARTERY W/O ANG PCTRS (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 transplanted heart: [place] heart Associated angina: without angina Qualified Code(s): I25.10 - Atherosclerotic heart disease of [place] coronary artery without angina pectoris (7) Diastolic dysfunction Code(s): I51.9 - HEART DISEASE, UNSPECIFIED (8) HTN (hypertension) Code(s): I10 - ESSENTIAL (PRIMARY) HYPERTENSION Qualifiers: Hypertension type: essential hypertension Qualified Code(s): I10 - Essential (primary) hypertension (9) History of myocardial infarction Code(s): I25.2 - OLD MYOCARDIAL INFARCTION (10) Lung nodule < 6cm on CT Code(s): R91.1 - SOLITARY PULMONARY NODULE
[2018-07-09] MEDS ORDERED: methylPREDNISolone NA SUCC 40 MG/1 ML VIAL IVPB SCH (12:00)
--- NOTE | 2018-07-09 14:59 | CONS ---
PULMONARY CONSULTATION DATE OF CONSULTATION: 07/09/2018 REFERRING PHYSICIAN: Dr. Cohn The patient is a 63-year-old white female with past medical history of ASHD, status post GA, status post angioplasty in 2011; hypertension; COPD; mesenteric ischemia status post SMA bypass in 2011; diastolic heart failure; chronic kidney disease; history of temporary dialysis in 2011; peripheral vascular disease; admitted to [facility] with 1-week history of increasing shortness of breath, cough, and chest congestion. Patient states that she was doing well until about a week prior to admission when she started developing nasal congestion, cough, and shortness of breath. She denied any complaints of any chest pain, nausea, or vomiting; did complain of chest tightness started taking prednisone and Augmentin which offered minimal improvement. On tapering the prednisone, she started developing increasing shortness of breath; at which time, presented to the emergency department. In the ER, was felt to have acute exacerbation of COPD and transferred to the floor for monitoring and therapy. Patient denies any hemoptysis. Denies any fevers or chills. PAST MEDICAL HISTORY: Again includes COPD; asthma; ASHD, status post GA, status post angioplasty; history of mesenteric ischemia status post SMA bypass; diastolic heart failure; history of chronic kidney disease; history of renal failure, currently resolved; peripheral vascular disease. REVIEW OF SYSTEMS: Positive cough. Positive shortness of breath. Positive wheezing. No fever. No chills. No hemoptysis. No abdominal pain. CURRENT MEDICATIONS: Include Symbicort 160/4.5, Solu-Medrol, Mylanta, Zithromax , Bactroban, Spiriva, Robitussin, Zantac, albuterol, DuoNeb, Calan, Ranexa, Flonase, Singulair, Imdur, Protonix. SOCIAL HISTORY: History of tobacco use, quit 4 years ago. No occupational exposures. PHYSICAL EXAMINATION: General: The patient is a well-developed, well-nourished female, awake, alert, in no acute respiratory distress. Vital Signs: She is afebrile. Blood pressure 116/55. Respiratory rate is 22. O2 saturation is 94% on room air. HEENT: Normocephalic, atraumatic. Neck: Supple. Heart: Regular. S1, S2. Chest: Bilateral wheezes throughout. Abdomen: Soft. Bowel sounds are positive. Extremities: No cyanosis or edema. LABORATORY DATA: WBC is 6.3, hemoglobin 12.1, hematocrit 36.9, with a platelet count of 286,000. Blood gas showed pH of 7.42, pCO2 of 42, a pO2 of 61, bicarbonate 27, and saturation of 91.7. BUN 11, creatinine 0.7. BNP is 224. Chest x-ray: No infiltrates. No effusions. IMPRESSION: 1. Dyspnea secondary to acute exacerbation of chronic obstructive pulmonary disease, likely secondary to upper respiratory tract infection. 2. Atherosclerotic heart disease status post myocardial infarction. 3. Diastolic heart failure. 4. Hypertension. PLAN: IV steroids, inhaled bronchodilators, supplemental O2. Continue current cardiac medications. PFTs as outpatient. Followup chest CT. EMMETT LEÓN M.D. [id number] MTDD
[2018-07-09] MEDS: ALBUTEROL SO4 0.083% IH SOL 2.5 MG/3 ML VIAL.NEB. NEB PRN ×2 (15:26→21:15)
[2018-07-09] MEDS: ACETAMINOPHEN 325 MG TABLET (FP) PO PRN (21:17)
[2018-07-09] MEDS: DOCUSATE SODIUM 100 MG CAPSULE (FP) PO SCH (21:18)
[2018-07-09] MEDS ORDERED: MONTELUKAST NA 10 MG TABLET PO SCH (22:00)
[2018-07-09] MEDS ORDERED: ATORVASTATIN CA 80 MG TABLET (FP) PO SCH (22:00)
[2018-07-10] MEDS: methylPREDNISolone NA SUCC 40 MG/1 ML VIAL IVPB SCH ×4 (02:17→21:48)
[2018-07-10] MEDS: SODIUM CHLORIDE NASAL SPRAY 44 ML BOTTLE NS SCH ×3 (05:51→21:49)
[2018-07-10 06:49] LABS: BASO % 0.1 % (0-2.0); HEMATOCRIT 35.8 % (32.4-45.2); HEMOGLOBIN 11.5 GM/dL (10.7-15.3); LYMPH % 4.3 % (8-40); MCH 29.6 pg (25.7-33.7); MCHC 32.2 g/dl (32.0-36.0); MEAN CELL VOLUME 92.1 fl (80-96); MEAN PLT VOLUME 6.8 fl (7.5-11.1); MONO % 2.1 % (3.8-10.2); NEUT % 93.5 % (42.8-82.8); PLATELET COUNT 309 K/MM3 (134-434); RBC 3.88 M/mm3 (3.60-5.2); WHITE BLOOD COUNT 10.2 K/mm3 (4.0-10.0)
[2018-07-10] MEDS ORDERED: PT OWN MED DRAWER 7, Y5N ONE ×3 (06:49→14:34)
[2018-07-10] MEDS: ALBUTEROL SO4 0.083% IH SOL 2.5 MG/3 ML VIAL.NEB. NEB PRN ×4 (07:25→20:44)
[2018-07-10 08:07] LABS: ALBUMIN 3.3 g/dl (3.4-5.0); ALK PHOS 83 U/L (45-117); ANION GAP 9 MMOL/L (8-16); BILIRUBIN,TOTAL 0.3 mg/dL (0.2-1); BLOOD UREA NITROGEN 21 mg/dL (7-18); CALCIUM 8.8 mg/dL (8.5-10.1); CHLORIDE 99 mmol/L (98-107); CO2 28 mmol/L (21-32); CREATININE 0.8 mg/dL (0.55-1.3); GLUCOSE,RANDOM 159 mg/dL (74-106); POTASSIUM 4.2 mmol/L (3.5-5.1); SGOT/AST 6 U/L (15-37); SGPT/ALT 12 U/L (13-61); SODIUM 137 mmol/L (136-145); TOT PROT 6.2 g/dl (6.4-8.2)
[2018-07-10] MEDS: BUDESONIDE/FORMETEROL FUMARATE 160/4.5 mcg INHALER IH SCH ×2 (09:26→21:49)
[2018-07-10] MEDS: FLUTICASONE PROP 0.05% 16 GM NASAL SPRAY NS SCH ×2 (09:26→21:49)
[2018-07-10] MEDS: TIOTROPIUM BROMIDE 2.5 MCG (SPIRIVA) RESPIMAT INHALER IH SCH (09:26)
[2018-07-10] MEDS: ISOSORBIDE MONONITRATE 30 MG TAB.SR.24H (FP) PO SCH ×2 (09:27→18:16)
[2018-07-10] MEDS: CLOPIDOGREL BISULFATE 75 MG TABLET (FP) PO SCH (09:27)
[2018-07-10] MEDS: ASPIRIN 81 MG CHEWABLE TABLETS PO SCH (09:27)
[2018-07-10] MEDS: VERAPAMIL HCL 240 MG E.R. TABLET (FP) PO SCH ×2 (09:27→21:49)
[2018-07-10] MEDS: POTASSIUM CHLORIDE TABS 10 MEQ TABLET.ER (FP) PO SCH ×2 (09:28→21:48)
[2018-07-10] MEDS: RANOLAZINE E.R. 500 MG TABLET (FP) PO SCH ×2 (09:29→21:49)
[2018-07-10] MEDS: FOLIC ACID 1 MG TABLET (FP) PO SCH (09:29)
[2018-07-10] MEDS: RANITIDINE HCL 150 MG TABLET (FP) PO SCH (09:29)
[2018-07-10] MEDS: PANTOPRAZOLE 40 MG TABLET (FP) PO SCH (09:29)
[2018-07-10] MEDS: FUROSEMIDE 20 MG TABLET (FP) PO SCH (09:29)
[2018-07-10] MEDS: AZITHROMYCIN 250 MG TABLET PO SCH (09:32)
[2018-07-10] MEDS: MUPIROCIN 2% TOPICAL OINTMENT 22 GM TUBE TP SCH ×2 (09:33→21:49)
[2018-07-10 09:57] LABS: ACANTHOCYTES 0; ANISOCYTOSIS 0; HELMET CELLS 0; HOWELL-JOLLY BODIES 0; MACROCYTOSIS 0; OVALOCYTE 0; PLATELET ESTIMATE NORMAL; ROULEAU 0; SICKELED CELLS 0; TARGET CELLS 0; TEAR DROP CELLS 0; TOXIC GRANULATION 0
--- NOTE | 2018-07-10 11:25 | PN ---
Progress Note, Physician Chief Complaint: still with SOB wheezing and coughing added levaquin IV chest CT c/w PNA - Current Medication List Current Medications: Active Medications Acetaminophen (Tylenol -) 650 mg PO Q6H PRN PRN Reason: FEVER Last Admin: 07/09/18 21:17 Dose: 650 mg Al Hydroxide/Mg Hydroxide (Mylanta Oral Suspension -) 30 ml PO Q6H PRN PRN Reason: DYSPEPSIA Albuterol Sulfate (Ventolin 0.083% Nebulizer Soln -) 1 amp NEB Q4H PRN PRN Reason: SHORT OF BREATH/WHEEZING Last Admin: 07/10/18 11:09 Dose: 1 amp Alprazolam (Xanax -) 0.25 mg PO Q12H PRN PRN Reason: ANXIETY Last Admin: 07/09/18 21:17 Dose: 0.25 mg Aspirin (Asa -) 81 mg PO DAILY [facility] Last Admin: 07/10/18 09:27 Dose: 81 mg Atorvastatin Calcium (Lipitor -) 80 mg PO HS [facility] Last Admin: 07/09/18 21:17 Dose: 80 mg Azithromycin (Zithromax -) 250 mg PO DAILY [facility] Last Admin: 07/10/18 09:32 Dose: 250 mg Budesonide/Formoterol Fumarate (Symbicort 160/4.5mcg -) 2 puff IH BID [facility] Last Admin: 07/10/18 09:26 Dose: 2 puff Clopidogrel Bisulfate (Plavix -) 75 mg PO DAILY [facility] Last Admin: 07/10/18 09:27 Dose: 75 mg Docusate Sodium (Colace -) 300 mg PO HS [facility] Last Admin: 07/09/18 21:18 Dose: Not Given Fluticasone Propionate (Flonase -) 1 spray NS BID [facility] Last Admin: 07/10/18 09:26 Dose: 1 spr Folic Acid (Folic Acid -) 1 mg PO DAILY [facility] Last Admin: 07/10/18 09:29 Dose: 1 mg Furosemide (Lasix -) 20 mg PO DAILY [facility] Last Admin: 07/10/18 09:29 Dose: 20 mg Guaifenesin (Robitussin Dm -) 10 ml PO Q6H PRN PRN Reason: COUGH Isosorbide Mononitrate (Imdur -) 30 mg PO BIDISMO [facility] Last Admin: 07/10/18 09:27 Dose: 30 mg Meclizine HCl (Antivert -) 25 mg PO Q6H PRN PRN Reason: VERTIGO Methylprednisolone Sodium Succinate (Solu-Medrol -) 40 mg IVPB Q6H-IV [facility] Last Admin: 07/10/18 09:32 Dose: 40 mg Montelukast Sodium (Singulair -) 10 mg PO HS [facility] Last Admin: 07/09/18 21:17 Dose: 10 mg Mupirocin (Bactroban 2% Ointment -) 1 applic TP BID [facility] Last Admin: 07/10/18 09:33 Dose: Not Given Pantoprazole Sodium (Protonix -) 40 mg PO DAILY [facility] Last Admin: 07/10/18 09:29 Dose: 40 mg Potassium Chloride (K-Dur -) 10 meq PO BID [facility] Last Admin: 07/10/18 09:28 Dose: 10 meq Ranitidine HCl (Zantac -) 150 mg PO DAILY [facility] Last Admin: 07/10/18 09:29 Dose: 150 mg Ranolazine (Ranexa -) 500 mg PO BID [facility] Last Admin: 07/10/18 09:29 Dose: Not Given Sodium Chloride ([place] Nasal [place] -) 2 spray NS TID [facility] Last Admin: 07/10/18 05:51 Dose: 2 spray Tiotropium [place] (Spiriva Respimat) 2 puff IH DAILY [facility] Last Admin: 07/10/18 09:26 Dose: 2 puff Verapamil HCl (Calan Sr -) 240 mg PO BID [facility] Last Admin: 07/10/18 09:27 Dose: 240 mg - Objective Vital Signs: Vital Signs Temperature 98.1 F 07/10/18 06:00 Pulse Rate 78 07/10/18 06:00 Respiratory Rate 18 07/10/18 06:00 Blood Pressure 127/56 L 07/10/18 06:00 O2 Sat by Pulse Oximetry (%) 96 07/09/18 21:00 Constitutional: Yes: No Distress, Calm Eyes: Yes: Conjunctiva Clear HENT: Yes: Atraumatic Neck: Yes: Supple Cardiovascular: Yes: Regular Rate and Rhythm Respiratory: Yes: Rales, Rhonchi, Wheezes Gastrointestinal: Yes: Soft. No: Distention Genitourinary: No: Hematuria Musculoskeletal: No: Joint Stiffness, Joint Swelling Extremities: No: Calf Tenderness, Cold, Cool, Cyanosis Edema: No Integumentary: No: Bruising, Rash, Venous Stasis Changes Neurological: Yes: WNL, Alert, Oriented ...Motor Strength: WNL Psychiatric: Yes: WNL, Alert, Oriented. No: Agitated, Suicidal Ideation Labs: CBC, BMP 07/10/18 06:00 07/10/18 06:00 - ....Imaging Other: Report Reviewed Assessment/Plan The patient is a 63-year-old female with a past medical history significant for CAD, HTN, [place] s/p angioplasty, COPD, diastolic CHF, PVD and mesenteric ischemia s /p SMA bypass (2011) presents to the emergency department with shortness of breath. Not better with Prednisone taper and AUgmentin po 875 B.I.D for few days outpt. admit with acute COPD exac and PNA IV steroids IV antibiotics O2, nebs pulmonary f/u falls DVT PFX pt asked to shower also pt asked for xanax prn for anxiety; dw pt risks fall tolerance dependence respiratory depression, she is aware to use as needed only; hold for sedation or lethargy d/wpt and staff
[2018-07-10] MEDS ORDERED: FLUCONAZOLE 150 MG TABLET PO ONE (11:52)
[2018-07-10] MEDS ORDERED: NITROGLYCERIN SUBLINGUAL 1/150 0.4 MG TAB SL PRN (11:52)
[2018-07-10] MEDS: ACETAMINOPHEN 325 MG TABLET (FP) PO PRN ×2 (12:04→18:16)
--- NOTE | 2018-07-10 12:24 | EKG ---
Test Reason : Blood Pressure : / mmHG Vent. Rate : 082 BPM Atrial Rate : 082 BPM P-R Int : 154 ms QRS Dur : 088 ms QT Int : 390 ms P-R-T Axes : 078 082 073 degrees QTc Int : 455 ms POOR DATA QUALITY, INTERPRETATION MAY BE ADVERSELY AFFECTED NORMAL SINUS RHYTHM NONSPECIFIC ST ABNORMALITY ABNORMAL ECG WHEN COMPARED WITH ECG OF 06-MAY-2018 12:55, NO SIGNIFICANT CHANGE WAS FOUND Confirmed by LINDSEY TODD MD ([id number]) on 07/10/2018 12:24:16 PM Referred By: Confirmed By:LINDSEY TODD MD
--- NOTE | 2018-07-10 13:04 | PN ---
Progress Note, Physician History of Present Illness: pulmonary alert,c/o increased sob,dry cough - Current Medication List Current Medications: Active Medications Acetaminophen (Tylenol -) 650 mg PO Q6H PRN PRN Reason: FEVER Last Admin: 07/10/18 12:04 Dose: 650 mg Al Hydroxide/Mg Hydroxide (Mylanta Oral Suspension -) 30 ml PO Q6H PRN PRN Reason: DYSPEPSIA Albuterol Sulfate (Ventolin 0.083% Nebulizer Soln -) 1 amp NEB Q4H PRN PRN Reason: SHORT OF BREATH/WHEEZING Last Admin: 07/10/18 11:09 Dose: 1 amp Alprazolam (Xanax -) 0.25 mg PO Q12H PRN PRN Reason: ANXIETY Last Admin: 07/09/18 21:17 Dose: 0.25 mg Aspirin (Asa -) 81 mg PO DAILY [facility] Last Admin: 07/10/18 09:27 Dose: 81 mg Atorvastatin Calcium (Lipitor -) 80 mg PO HS [facility] Last Admin: 07/09/18 21:17 Dose: 80 mg Azithromycin (Zithromax -) 250 mg PO DAILY [facility] Last Admin: 07/10/18 09:32 Dose: 250 mg Budesonide/Formoterol Fumarate (Symbicort 160/4.5mcg -) 2 puff IH BID [facility] Last Admin: 07/10/18 09:26 Dose: 2 puff Clopidogrel Bisulfate (Plavix -) 75 mg PO DAILY [facility] Last Admin: 07/10/18 09:27 Dose: 75 mg Docusate Sodium (Colace -) 300 mg PO HS [facility] Last Admin: 07/09/18 21:18 Dose: Not Given Fluticasone Propionate (Flonase -) 1 spray NS BID [facility] Last Admin: 07/10/18 09:26 Dose: 1 spr Folic Acid (Folic Acid -) 1 mg PO DAILY [facility] Last Admin: 07/10/18 09:29 Dose: 1 mg Furosemide (Lasix -) 20 mg PO DAILY [facility] Last Admin: 07/10/18 09:29 Dose: 20 mg Guaifenesin (Robitussin Dm -) 10 ml PO Q6H PRN PRN Reason: COUGH Levofloxacin (Levaquin 500 Mg Premixed Ivpb -) 500 mg in 100 mls @ 100 mls/hr IVPB DAILY [facility]; Protocol Isosorbide Mononitrate (Imdur -) 30 mg PO BIDISMO [facility] Last Admin: 07/10/18 09:27 Dose: 30 mg Meclizine HCl (Antivert -) 25 mg PO Q6H PRN PRN Reason: VERTIGO Methylprednisolone Sodium Succinate (Solu-Medrol -) 40 mg IVPB Q6H-IV [facility] Last Admin: 07/10/18 09:32 Dose: 40 mg Montelukast Sodium (Singulair -) 10 mg PO HS [facility] Last Admin: 07/09/18 21:17 Dose: 10 mg Mupirocin (Bactroban 2% Ointment -) 1 applic TP BID [facility] Last Admin: 07/10/18 09:33 Dose: Not Given Nitroglycerin (Nitrostat -) 0.4 mg SL Q5M PRN PRN Reason: FOR CHEST PAIN Pantoprazole Sodium (Protonix -) 40 mg PO DAILY [facility] Last Admin: 07/10/18 09:29 Dose: 40 mg Potassium Chloride (K-Dur -) 10 meq PO BID [facility] Last Admin: 07/10/18 09:28 Dose: 10 meq Ranitidine HCl (Zantac -) 150 mg PO DAILY [facility] Last Admin: 07/10/18 09:29 Dose: 150 mg Ranolazine (Ranexa -) 500 mg PO BID [facility] Last Admin: 07/10/18 09:29 Dose: Not Given Sodium Chloride ([place] Nasal [place] -) 2 spray NS TID [facility] Last Admin: 07/10/18 05:51 Dose: 2 spray Tiotropium [place] (Spiriva Respimat) 2 puff IH DAILY [facility] Last Admin: 07/10/18 09:26 Dose: 2 puff Verapamil HCl (Calan Sr -) 240 mg PO BID [facility] Last Admin: 07/10/18 09:27 Dose: 240 mg - Objective Vital Signs: Vital Signs Temperature 98.1 F 07/10/18 06:00 Pulse Rate 80 07/10/18 10:00 Respiratory Rate 18 07/10/18 10:00 Blood Pressure 120/58 L 07/10/18 10:00 O2 Sat by Pulse Oximetry (%) 98 07/10/18 09:00 Constitutional: Yes: Well Nourished, Mild Distress Eyes: Yes: WNL HENT: Yes: WNL Neck: Yes: WNL Cardiovascular: Yes: Pulse Irregular, S1, S2 Respiratory: Yes: Rhonchi (bilateral wheezes and rhonchi), Wheezes Gastrointestinal: Yes: Normal Bowel Sounds, Soft Extremities: Yes: WNL Edema: No Labs: CBC, BMP 07/10/18 06:00 07/10/18 06:00 - ....Imaging Cat Scan: Report Reviewed, Image Reviewed (rml consolidation/atelectasis) Problem List - Problems (1) COPD exacerbation Code(s): J44.1 - CHRONIC OBSTRUCTIVE PULMONARY DISEASE W (ACUTE) EXACERBATION (2) Shortness of breath Code(s): R06.02 - SHORTNESS OF BREATH (3) ASHD (arteriosclerotic heart disease) Code(s): I25.10 - ATHSCL HEART DISEASE OF [place] CORONARY ARTERY W/O ANG PCTRS (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 transplanted heart: [place] heart Associated angina: without angina Qualified Code(s): I25.10 - Atherosclerotic heart disease of [place] coronary artery without angina pectoris (7) Diastolic dysfunction Code(s): I51.9 - HEART DISEASE, UNSPECIFIED (8) HTN (hypertension) Code(s): I10 - ESSENTIAL (PRIMARY) HYPERTENSION Qualifiers: Hypertension type: essential hypertension Qualified Code(s): I10 - Essential (primary) hypertension (9) History of myocardial infarction Code(s): I25.2 - OLD MYOCARDIAL INFARCTION (10) Lung nodule < 6cm on CT Code(s): R91.1 - SOLITARY PULMONARY NODULE Assessment/Plan IMP DYSPNEA ACUTE EXACERBATION OF COPD PNEUMONIA H/O PULMONARY NODULES ASHD S/P [place] HTN DIASTOLIC HF PLAN INCREASE MEDROL 60Q6 INHALED BRONCHODILATORS O2 ABX PFTS OUTPATIENT AMBULATORY O2 SAT PRIOR TO DISCHARGE F/U CHEST CT OUTPATIENT 6 WKS TO CONFIRM RESOLUTION RML CONSOLIDATION DR LEÓN Problem List - Problems (1) COPD exacerbation Code(s): J44.1 - CHRONIC OBSTRUCTIVE PULMONARY DISEASE W (ACUTE) EXACERBATION (2) Shortness of breath Code(s): R06.02 - SHORTNESS OF BREATH (3) ASHD (arteriosclerotic heart disease) Code(s): I25.10 - ATHSCL HEART DISEASE OF [place] CORONARY ARTERY W/O ANG PCTRS (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 transplanted heart: [place] heart Associated angina: without angina Qualified Code(s): I25.10 - Atherosclerotic heart disease of [place] coronary artery without angina pectoris (7) Diastolic dysfunction Code(s): I51.9 - HEART DISEASE, UNSPECIFIED (8) HTN (hypertension) Code(s): I10 - ESSENTIAL (PRIMARY) HYPERTENSION Qualifiers: Hypertension type: essential hypertension Qualified Code(s): I10 - Essential (primary) hypertension (9) History of myocardial infarction Code(s): I25.2 - OLD MYOCARDIAL INFARCTION (10) Lung nodule < 6cm on CT Code(s): R91.1 - SOLITARY PULMONARY NODULE
[2018-07-10] MEDS ORDERED: cefTRIAXone SODIUM 1 GM VIAL ONE (13:44)
[2018-07-10] MEDS ORDERED: DEXTROSE 5%-WATER - 50 ML IVPB ONE (13:44)
[2018-07-10] MEDS: CEFTRIAXONE 1 GM in DEXTROSE 5%-WATER - 50 ML IVPB SCH (13:59)
[2018-07-10] MEDS: ATORVASTATIN CA 80 MG TABLET (FP) PO SCH (21:48)
[2018-07-10] MEDS: DOCUSATE SODIUM 100 MG CAPSULE (FP) PO SCH (21:48)
[2018-07-10] MEDS: MONTELUKAST NA 10 MG TABLET PO SCH (21:48)
[2018-07-10] MEDS: ALPRAZolam 0.25 MG TABLET PO PRN (21:48)
[2018-07-11] MEDS: methylPREDNISolone NA SUCC 40 MG/1 ML VIAL IVPB SCH ×4 (02:13→21:42)
[2018-07-11] MEDS: SODIUM CHLORIDE NASAL SPRAY 44 ML BOTTLE NS SCH ×3 (06:25→21:42)
[2018-07-11] MEDS ORDERED: PT OWN MED DRAWER 7, Y5N ONE ×3 (06:45→21:11)
--- NOTE | 2018-07-11 06:54 | PN ---
Progress Note, Physician Chief Complaint: still coughing and wheezing but less SOB consults and chect CT d/w pt to repeat CT in 1-2 months outpt to ensure resolution of changes, if not improved will need biopsy of the nodules r/o malignancy pt understood and said she will. - Current Medication List Current Medications: Active Medications Acetaminophen (Tylenol -) 650 mg PO Q6H PRN PRN Reason: FEVER Last Admin: 07/10/18 18:16 Dose: 650 mg Al Hydroxide/Mg Hydroxide (Mylanta Oral Suspension -) 30 ml PO Q6H PRN PRN Reason: DYSPEPSIA Albuterol Sulfate (Ventolin 0.083% Nebulizer Soln -) 1 amp NEB Q4H PRN PRN Reason: SHORT OF BREATH/WHEEZING Last Admin: 07/10/18 20:44 Dose: 1 amp Alprazolam (Xanax -) 0.25 mg PO Q12H PRN PRN Reason: ANXIETY Last Admin: 07/10/18 21:48 Dose: 0.25 mg Aspirin (Asa -) 81 mg PO DAILY [facility] Last Admin: 07/10/18 09:27 Dose: 81 mg Atorvastatin Calcium (Lipitor -) 80 mg PO HS [facility] Last Admin: 07/10/18 21:48 Dose: 80 mg Azithromycin (Zithromax -) 250 mg PO DAILY [facility] Last Admin: 07/10/18 09:32 Dose: 250 mg Budesonide/Formoterol Fumarate (Symbicort 160/4.5mcg -) 2 puff IH BID [facility] Last Admin: 07/10/18 21:49 Dose: 2 puff Clopidogrel Bisulfate (Plavix -) 75 mg PO DAILY [facility] Last Admin: 07/10/18 09:27 Dose: 75 mg Docusate Sodium (Colace -) 300 mg PO HS [facility] Last Admin: 07/10/18 21:48 Dose: 300 mg Fluticasone Propionate (Flonase -) 1 spray NS BID [facility] Last Admin: 07/10/18 21:49 Dose: 2 spr Folic Acid (Folic Acid -) 1 mg PO DAILY [facility] Last Admin: 07/10/18 09:29 Dose: 1 mg Furosemide (Lasix -) 20 mg PO DAILY [facility] Last Admin: 07/10/18 09:29 Dose: 20 mg Guaifenesin (Robitussin Dm -) 10 ml PO Q6H PRN PRN Reason: COUGH Ceftriaxone Sodium 1 gm/ (Dextrose) 50 mls @ 100 mls/hr IVPB DAILY [facility]; Protocol Last Admin: 07/10/18 13:59 Dose: 100 mls/hr Isosorbide Mononitrate (Imdur -) 30 mg PO BIDISMO [facility] Last Admin: 07/10/18 18:16 Dose: 30 mg Meclizine HCl (Antivert -) 25 mg PO Q6H PRN PRN Reason: VERTIGO Methylprednisolone Sodium Succinate (Solu-Medrol -) 60 mg IVPB Q6H-IV [facility] Last Admin: 07/11/18 02:13 Dose: 60 mg Montelukast Sodium (Singulair -) 10 mg PO HS [facility] Last Admin: 07/10/18 21:48 Dose: 10 mg Mupirocin (Bactroban 2% Ointment -) 1 applic TP BID [facility] Last Admin: 07/10/18 21:49 Dose: Not Given Nitroglycerin (Nitrostat -) 0.4 mg SL Q5M PRN PRN Reason: FOR CHEST PAIN Pantoprazole Sodium (Protonix -) 40 mg PO DAILY [facility] Last Admin: 07/10/18 09:29 Dose: 40 mg Potassium Chloride (K-Dur -) 10 meq PO BID [facility] Last Admin: 07/10/18 21:48 Dose: 10 meq Ranitidine HCl (Zantac -) 150 mg PO DAILY [facility] Last Admin: 07/10/18 09:29 Dose: 150 mg Ranolazine (Ranexa -) 500 mg PO BID [facility] Last Admin: 07/10/18 21:49 Dose: Not Given Sodium Chloride ([place] Nasal [place] -) 2 spray NS TID [facility] Last Admin: 07/11/18 06:25 Dose: 2 spray Tiotropium [place] (Spiriva Respimat) 2 puff IH DAILY [facility] Last Admin: 07/10/18 09:26 Dose: 2 puff Verapamil HCl (Calan Sr -) 240 mg PO BID [facility] Last Admin: 07/10/18 21:49 Dose: 240 mg - Objective Vital Signs: Vital Signs Temperature 97.6 F 07/11/18 06:23 Pulse Rate 66 07/11/18 06:23 Respiratory Rate 19 07/11/18 06:23 Blood Pressure 115/41 L 07/11/18 06:23 O2 Sat by Pulse Oximetry (%) 98 07/10/18 21:00 Constitutional: Yes: No Distress, Calm Eyes: Yes: Conjunctiva Clear HENT: Yes: Atraumatic Neck: Yes: Supple Cardiovascular: Yes: Regular Rate and Rhythm Respiratory: Yes: Rales, Wheezes Gastrointestinal: Yes: Soft. No: Distention Genitourinary: No: CVA Tenderness - Left, CVA Tenderness - Right Musculoskeletal: No: Joint Stiffness, Joint Swelling Extremities: No: Cold, Cool, Cyanosis Edema: No Integumentary: No: Rash, Venous Stasis Changes Neurological: Yes: WNL, Alert, Oriented ...Motor Strength: WNL Psychiatric: Yes: WNL, Alert, Oriented. No: Agitated, Suicidal Ideation Labs: CBC, BMP 07/10/18 06:00 07/10/18 06:00 - ....Imaging Other: Report Reviewed Assessment/Plan The patient is a 63-year-old female with a past medical history significant for CAD, HTN, [place] s/p angioplasty, COPD, diastolic CHF, PVD and mesenteric ischemia s /p SMA bypass (2011) admitted with acute COPD exac and PNA IV steroids IV antibiotics O2, nebs pulmonary f/u falls DVT PFX d/w pt will need outpt chest CT in 1-2 months to ensure resolution of lung changes, if not resolved will need biopsy r/o malignancy; also d/w pt will need outpt pulm, cardiology f/u, surgery f/u for flank hernia repair, and health maintenance pap [employer] GI colonoscopy mammogram BDT which were not done for lomg time despite being advised repeatedly to do them; d/w pt and staff
[2018-07-11] MEDS: ALBUTEROL SO4 0.083% IH SOL 2.5 MG/3 ML VIAL.NEB. NEB PRN ×3 (07:15→15:44)
[2018-07-11] MEDS ORDERED: DEXTROSE 5%-WATER - 50 ML IVPB ONE (10:25)
[2018-07-11] MEDS ORDERED: cefTRIAXone SODIUM 1 GM VIAL ONE (10:25)
[2018-07-11] MEDS: CEFTRIAXONE 1 GM in DEXTROSE 5%-WATER - 50 ML IVPB SCH (11:08)
[2018-07-11] MEDS: ASPIRIN 81 MG CHEWABLE TABLETS PO SCH (11:09)
[2018-07-11] MEDS: MUPIROCIN 2% TOPICAL OINTMENT 22 GM TUBE TP SCH ×2 (11:09→21:43)
[2018-07-11] MEDS: VERAPAMIL HCL 240 MG E.R. TABLET (FP) PO SCH ×2 (11:10→21:43)
[2018-07-11] MEDS: FOLIC ACID 1 MG TABLET (FP) PO SCH (11:13)
[2018-07-11] MEDS: FLUTICASONE PROP 0.05% 16 GM NASAL SPRAY NS SCH ×2 (11:13→21:43)
[2018-07-11] MEDS: POTASSIUM CHLORIDE TABS 10 MEQ TABLET.ER (FP) PO SCH ×2 (11:14→22:18)
[2018-07-11] MEDS: ISOSORBIDE MONONITRATE 30 MG TAB.SR.24H (FP) PO SCH ×2 (11:14→17:17)
[2018-07-11] MEDS: PANTOPRAZOLE 40 MG TABLET (FP) PO SCH (11:14)
[2018-07-11] MEDS: CLOPIDOGREL BISULFATE 75 MG TABLET (FP) PO SCH (11:14)
[2018-07-11] MEDS: FUROSEMIDE 20 MG TABLET (FP) PO SCH (11:14)
[2018-07-11] MEDS: AZITHROMYCIN 250 MG TABLET PO SCH (11:15)
[2018-07-11] MEDS: RANITIDINE HCL 150 MG TABLET (FP) PO SCH (11:16)
[2018-07-11] MEDS: RANOLAZINE E.R. 500 MG TABLET (FP) PO SCH ×2 (11:16→21:44)
[2018-07-11] MEDS: BUDESONIDE/FORMETEROL FUMARATE 160/4.5 mcg INHALER IH SCH ×2 (11:16→21:42)
[2018-07-11] MEDS: TIOTROPIUM BROMIDE 2.5 MCG (SPIRIVA) RESPIMAT INHALER IH SCH (11:16)
--- NOTE | 2018-07-11 14:20 | PN ---
Progress Note (short form) - Note Progress Note: PULMONARY Still with shortness of breath, cough with yellow sputum and chest tightness. Vital Signs Period Temp Pulse Resp BP Sys/Mann Pulse Ox Last 24 Hr 97.6 F-98.2 F 66-106 18-20 108-134/41-70 98 Gen: tachypneic with speaking Heart: RRR Lung: bilateral rhonchi, wheezes Abd: soft, nontender Ext: no edema CBC, BMP 07/10/18 06:00 07/10/18 06:00 Active Medications Acetaminophen (Tylenol -) 650 mg PO Q6H PRN PRN Reason: FEVER Last Admin: 07/10/18 18:16 Dose: 650 mg Al Hydroxide/Mg Hydroxide (Mylanta Oral Suspension -) 30 ml PO Q6H PRN PRN Reason: DYSPEPSIA Albuterol Sulfate (Ventolin 0.083% Nebulizer Soln -) 1 amp NEB Q4H PRN PRN Reason: SHORT OF BREATH/WHEEZING Last Admin: 07/11/18 11:10 Dose: 1 amp Alprazolam (Xanax -) 0.25 mg PO Q12H PRN PRN Reason: ANXIETY Last Admin: 07/10/18 21:48 Dose: 0.25 mg Aspirin (Asa -) 81 mg PO DAILY [facility] Last Admin: 07/11/18 11:09 Dose: 81 mg Atorvastatin Calcium (Lipitor -) 80 mg PO HS [facility] Last Admin: 07/10/18 21:48 Dose: 80 mg Azithromycin (Zithromax -) 250 mg PO DAILY [facility] Last Admin: 07/11/18 11:15 Dose: 250 mg Budesonide/Formoterol Fumarate (Symbicort 160/4.5mcg -) 2 puff IH BID [facility] Last Admin: 07/11/18 11:16 Dose: 2 puff Clopidogrel Bisulfate (Plavix -) 75 mg PO DAILY [facility] Last Admin: 07/11/18 11:14 Dose: 75 mg Docusate Sodium (Colace -) 300 mg PO HS [facility] Last Admin: 07/10/18 21:48 Dose: 300 mg Fluticasone Propionate (Flonase -) 1 spray NS BID [facility] Last Admin: 07/11/18 11:13 Dose: 1 spr Folic Acid (Folic Acid -) 1 mg PO DAILY [facility] Last Admin: 07/11/18 11:13 Dose: 1 mg Furosemide (Lasix -) 20 mg PO DAILY [facility] Last Admin: 07/11/18 11:14 Dose: 20 mg Guaifenesin (Robitussin Dm -) 10 ml PO Q6H PRN PRN Reason: COUGH Ceftriaxone Sodium 1 gm/ (Dextrose) 50 mls @ 100 mls/hr IVPB DAILY [facility]; Protocol Last Admin: 07/11/18 11:08 Dose: 100 mls/hr Isosorbide Mononitrate (Imdur -) 30 mg PO BIDISMO [facility] Last Admin: 07/11/18 11:14 Dose: 30 mg Meclizine HCl (Antivert -) 25 mg PO Q6H PRN PRN Reason: VERTIGO Methylprednisolone Sodium Succinate (Solu-Medrol -) 60 mg IVPB Q6H-IV [facility] Last Admin: 07/11/18 11:08 Dose: 60 mg Montelukast Sodium (Singulair -) 10 mg PO HS [facility] Last Admin: 07/10/18 21:48 Dose: 10 mg Mupirocin (Bactroban 2% Ointment -) 1 applic TP BID [facility] Last Admin: 07/11/18 11:09 Dose: Not Given Nitroglycerin (Nitrostat -) 0.4 mg SL Q5M PRN PRN Reason: FOR CHEST PAIN Pantoprazole Sodium (Protonix -) 40 mg PO DAILY [facility] Last Admin: 07/11/18 11:14 Dose: 40 mg Potassium Chloride (K-Dur -) 10 meq PO BID [facility] Last Admin: 07/11/18 11:14 Dose: 10 meq Ranitidine HCl (Zantac -) 150 mg PO DAILY [facility] Last Admin: 07/11/18 11:16 Dose: 150 mg Ranolazine (Ranexa -) 500 mg PO BID [facility] Last Admin: 07/11/18 11:16 Dose: Not Given Sodium Chloride ([place] Nasal [place] -) 2 spray NS TID [facility] Last Admin: 07/11/18 06:25 Dose: 2 spray Tiotropium [place] (Spiriva Respimat) 2 puff IH DAILY [facility] Last Admin: 07/11/18 11:16 Dose: 2 puff Verapamil HCl (Calan Sr -) 240 mg PO BID [facility] Last Admin: 07/11/18 11:10 Dose: 240 mg A/P Acute COPD Exacerbation Pneumonia Lung Nodules CAD LV Diastolic Dysfunction HTN - continue medrol at current dose - inhaled bronchodilators standing and PRN - O2 to keep SpO2 >90% - continue antibiotics - outpt f/u of CT chest to ensure resolution - DVT prophylaxis
[2018-07-11] MEDS: ACETAMINOPHEN 325 MG TABLET (FP) PO PRN (15:47)
[2018-07-11] MEDS: DOCUSATE SODIUM 100 MG CAPSULE (FP) PO SCH (21:42)
[2018-07-11] MEDS: ATORVASTATIN CA 80 MG TABLET (FP) PO SCH (21:43)
[2018-07-11] MEDS: ALPRAZolam 0.25 MG TABLET PO PRN (21:43)
[2018-07-11] MEDS: MONTELUKAST NA 10 MG TABLET PO SCH (21:43)
[2018-07-12] MEDS: methylPREDNISolone NA SUCC 40 MG/1 ML VIAL IVPB SCH ×4 (02:39→21:48)
[2018-07-12] MEDS: SODIUM CHLORIDE NASAL SPRAY 44 ML BOTTLE NS SCH ×3 (07:08→21:49)
--- NOTE | 2018-07-12 07:14 | PN ---
Progress Note, Physician Chief Complaint: still coughing and some SOB; on IV steroids, nebs, O2 and IV ATB< will d/w pulmonary no other c/o - Current Medication List Current Medications: Active Medications Acetaminophen (Tylenol -) 650 mg PO Q6H PRN PRN Reason: FEVER Last Admin: 07/11/18 15:47 Dose: 650 mg Al Hydroxide/Mg Hydroxide (Mylanta Oral Suspension -) 30 ml PO Q6H PRN PRN Reason: DYSPEPSIA Albuterol Sulfate (Ventolin 0.083% Nebulizer Soln -) 1 amp NEB Q4H PRN PRN Reason: SHORT OF BREATH/WHEEZING Last Admin: 07/11/18 15:44 Dose: 1 amp Alprazolam (Xanax -) 0.25 mg PO Q12H PRN PRN Reason: ANXIETY Last Admin: 07/11/18 21:43 Dose: 0.25 mg Aspirin (Asa -) 81 mg PO DAILY [facility] Last Admin: 07/11/18 11:09 Dose: 81 mg Atorvastatin Calcium (Lipitor -) 80 mg PO HS [facility] Last Admin: 07/11/18 21:43 Dose: 80 mg Azithromycin (Zithromax -) 250 mg PO DAILY [facility] Last Admin: 07/11/18 11:15 Dose: 250 mg Budesonide/Formoterol Fumarate (Symbicort 160/4.5mcg -) 2 puff IH BID [facility] Last Admin: 07/11/18 21:42 Dose: 2 puff Clopidogrel Bisulfate (Plavix -) 75 mg PO DAILY [facility] Last Admin: 07/11/18 11:14 Dose: 75 mg Docusate Sodium (Colace -) 300 mg PO HS [facility] Last Admin: 07/11/18 21:42 Dose: 300 mg Fluticasone Propionate (Flonase -) 1 spray NS BID [facility] Last Admin: 07/11/18 21:43 Dose: 1 spr Folic Acid (Folic Acid -) 1 mg PO DAILY [facility] Last Admin: 07/11/18 11:13 Dose: 1 mg Furosemide (Lasix -) 20 mg PO DAILY [facility] Last Admin: 07/11/18 11:14 Dose: 20 mg Guaifenesin (Robitussin Dm -) 10 ml PO Q6H PRN PRN Reason: COUGH Ceftriaxone Sodium 1 gm/ (Dextrose) 50 mls @ 100 mls/hr IVPB DAILY [facility]; Protocol Last Admin: 07/11/18 11:08 Dose: 100 mls/hr Isosorbide Mononitrate (Imdur -) 30 mg PO BIDISMO [facility] Last Admin: 07/11/18 17:17 Dose: 30 mg Meclizine HCl (Antivert -) 25 mg PO Q6H PRN PRN Reason: VERTIGO Methylprednisolone Sodium Succinate (Solu-Medrol -) 60 mg IVPB Q6H-IV [facility] Last Admin: 07/12/18 02:39 Dose: 60 mg Montelukast Sodium (Singulair -) 10 mg PO HS [facility] Last Admin: 07/11/18 21:43 Dose: 10 mg Mupirocin (Bactroban 2% Ointment -) 1 applic TP BID [facility] Last Admin: 07/11/18 21:43 Dose: Not Given Nitroglycerin (Nitrostat -) 0.4 mg SL Q5M PRN PRN Reason: FOR CHEST PAIN Pantoprazole Sodium (Protonix -) 40 mg PO DAILY [facility] Last Admin: 07/11/18 11:14 Dose: 40 mg Potassium Chloride (K-Dur -) 10 meq PO BID [facility] Last Admin: 07/11/18 22:18 Dose: 10 meq Ranitidine HCl (Zantac -) 150 mg PO DAILY [facility] Last Admin: 07/11/18 11:16 Dose: 150 mg Ranolazine (Ranexa -) 500 mg PO BID [facility] Last Admin: 07/11/18 21:44 Dose: Not Given Sodium Chloride ([place] Nasal [place] -) 2 spray NS TID [facility] Last Admin: 07/12/18 07:08 Dose: Not Given Tiotropium [place] (Spiriva Respimat) 2 puff IH DAILY [facility] Last Admin: 07/11/18 11:16 Dose: 2 puff Verapamil HCl (Calan Sr -) 240 mg PO BID [facility] Last Admin: 07/11/18 21:43 Dose: 240 mg - Objective Vital Signs: Vital Signs Temperature 97.8 F 07/11/18 22:00 Pulse Rate 78 07/11/18 22:00 Respiratory Rate 20 07/11/18 22:00 Blood Pressure 134/60 07/11/18 22:00 O2 Sat by Pulse Oximetry (%) 99 07/11/18 21:00 Constitutional: Yes: No Distress, Calm Eyes: Yes: Conjunctiva Clear HENT: Yes: Atraumatic Neck: Yes: Supple Cardiovascular: Yes: Regular Rate and Rhythm Respiratory: Yes: Rales, Wheezes Gastrointestinal: Yes: Soft. No: Tenderness Genitourinary: No: Hematuria Musculoskeletal: No: Joint Stiffness, Joint Swelling Extremities: No: Cold, Cool, Cyanosis Edema: No Integumentary: No: Rash, Venous Stasis Changes Neurological: Yes: WNL, Alert, Oriented ...Motor Strength: WNL Psychiatric: Yes: WNL, Alert, Oriented. No: Agitated, Suicidal Ideation Labs: CBC, BMP 07/10/18 06:00 07/10/18 06:00 - ....Imaging Other: Report Reviewed Assessment/Plan The patient is a 63-year-old female with a past medical history significant for CAD, HTN, [place] s/p angioplasty, COPD, diastolic CHF, PVD and mesenteric ischemia s /p SMA bypass (2011) admitted with acute COPD exac and PNA IV steroids IV antibiotics O2, nebs pulmonary f/u falls DVT PFX d/w pt will need outpt chest CT in 1-2 months to ensure resolution of lung changes, if not resolved will need biopsy r/o malignancy; also d/w pt will need outpt pulm, cardiology f/u, surgery f/u for flank hernia repair, and health maintenance pap [employer] GI colonoscopy mammogram BDT which were not done for long time despite being advised repeatedly to do them; d/w pt and staff
[2018-07-12] MEDS ORDERED: PT OWN MED DRAWER 7, Y5N ONE ×2 (08:55→21:40)
[2018-07-12] MEDS ORDERED: cefTRIAXone SODIUM 1 GM VIAL ONE (08:55)
[2018-07-12] MEDS ORDERED: DEXTROSE 5%-WATER - 50 ML IVPB ONE (08:56)
[2018-07-12] MEDS: AZITHROMYCIN 250 MG TABLET PO SCH (09:35)
[2018-07-12] MEDS: ASPIRIN 81 MG CHEWABLE TABLETS PO SCH (09:35)
[2018-07-12] MEDS: RANITIDINE HCL 150 MG TABLET (FP) PO SCH (09:35)
[2018-07-12] MEDS: CLOPIDOGREL BISULFATE 75 MG TABLET (FP) PO SCH (09:35)
[2018-07-12] MEDS: POTASSIUM CHLORIDE TABS 10 MEQ TABLET.ER (FP) PO SCH ×2 (09:35→21:48)
[2018-07-12] MEDS: FOLIC ACID 1 MG TABLET (FP) PO SCH (09:35)
[2018-07-12] MEDS: FUROSEMIDE 20 MG TABLET (FP) PO SCH (09:35)
[2018-07-12] MEDS: PANTOPRAZOLE 40 MG TABLET (FP) PO SCH (09:35)
[2018-07-12] MEDS: ISOSORBIDE MONONITRATE 30 MG TAB.SR.24H (FP) PO SCH ×2 (09:35→17:06)
[2018-07-12] MEDS: VERAPAMIL HCL 240 MG E.R. TABLET (FP) PO SCH ×2 (09:36→21:48)
[2018-07-12] MEDS: RANOLAZINE E.R. 500 MG TABLET (FP) PO SCH ×2 (09:39→21:50)
[2018-07-12] MEDS: CEFTRIAXONE 1 GM in DEXTROSE 5%-WATER - 50 ML IVPB SCH (09:46)
[2018-07-12] MEDS: TIOTROPIUM BROMIDE 2.5 MCG (SPIRIVA) RESPIMAT INHALER IH SCH (09:46)
[2018-07-12] MEDS: BUDESONIDE/FORMETEROL FUMARATE 160/4.5 mcg INHALER IH SCH ×2 (09:56→21:48)
[2018-07-12] MEDS: FLUTICASONE PROP 0.05% 16 GM NASAL SPRAY NS SCH ×2 (09:56→21:49)
[2018-07-12] MEDS: ALBUTEROL SO4 0.083% IH SOL 2.5 MG/3 ML VIAL.NEB. NEB PRN ×3 (11:51→21:25)
[2018-07-12] MEDS: MUPIROCIN 2% TOPICAL OINTMENT 22 GM TUBE TP SCH ×2 (12:30→21:49)
--- NOTE | 2018-07-12 14:46 | PN ---
Progress Note, Physician History of Present Illness: pulmonary still congested,less dyspneic - Current Medication List Current Medications: Active Medications Acetaminophen (Tylenol -) 650 mg PO Q6H PRN PRN Reason: FEVER Last Admin: 07/11/18 15:47 Dose: 650 mg Al Hydroxide/Mg Hydroxide (Mylanta Oral Suspension -) 30 ml PO Q6H PRN PRN Reason: DYSPEPSIA Albuterol Sulfate (Ventolin 0.083% Nebulizer Soln -) 1 amp NEB Q4H PRN PRN Reason: SHORT OF BREATH/WHEEZING Last Admin: 07/12/18 11:51 Dose: 1 amp Alprazolam (Xanax -) 0.25 mg PO Q12H PRN PRN Reason: ANXIETY Last Admin: 07/11/18 21:43 Dose: 0.25 mg Aspirin (Asa -) 81 mg PO DAILY [facility] Last Admin: 07/12/18 09:35 Dose: 81 mg Atorvastatin Calcium (Lipitor -) 80 mg PO HS [facility] Last Admin: 07/11/18 21:43 Dose: 80 mg Azithromycin (Zithromax -) 250 mg PO DAILY [facility] Last Admin: 07/12/18 09:35 Dose: 250 mg Budesonide/Formoterol Fumarate (Symbicort 160/4.5mcg -) 2 puff IH BID [facility] Last Admin: 07/12/18 09:56 Dose: 2 puff Clopidogrel Bisulfate (Plavix -) 75 mg PO DAILY [facility] Last Admin: 07/12/18 09:35 Dose: 75 mg Docusate Sodium (Colace -) 300 mg PO HS [facility] Last Admin: 07/11/18 21:42 Dose: 300 mg Fluticasone Propionate (Flonase -) 1 spray NS BID [facility] Last Admin: 07/12/18 09:56 Dose: 1 spr Folic Acid (Folic Acid -) 1 mg PO DAILY [facility] Last Admin: 07/12/18 09:35 Dose: 1 mg Furosemide (Lasix -) 20 mg PO DAILY [facility] Last Admin: 07/12/18 09:35 Dose: 20 mg Guaifenesin (Robitussin Dm -) 10 ml PO Q6H PRN PRN Reason: COUGH Ceftriaxone Sodium 1 gm/ (Dextrose) 50 mls @ 100 mls/hr IVPB DAILY [facility]; Protocol Last Admin: 07/12/18 09:46 Dose: 100 mls/hr Isosorbide Mononitrate (Imdur -) 30 mg PO BIDISMO [facility] Last Admin: 07/12/18 09:35 Dose: 30 mg Meclizine HCl (Antivert -) 25 mg PO Q6H PRN PRN Reason: VERTIGO Methylprednisolone Sodium Succinate (Solu-Medrol -) 60 mg IVPB Q6H-IV [facility] Last Admin: 07/12/18 14:05 Dose: 60 mg Montelukast Sodium (Singulair -) 10 mg PO HS [facility] Last Admin: 07/11/18 21:43 Dose: 10 mg Mupirocin (Bactroban 2% Ointment -) 1 applic TP BID [facility] Last Admin: 07/12/18 12:30 Dose: Not Given Nitroglycerin (Nitrostat -) 0.4 mg SL Q5M PRN PRN Reason: FOR CHEST PAIN Pantoprazole Sodium (Protonix -) 40 mg PO DAILY [facility] Last Admin: 07/12/18 09:35 Dose: 40 mg Potassium Chloride (K-Dur -) 10 meq PO BID [facility] Last Admin: 07/12/18 09:35 Dose: 10 meq Ranitidine HCl (Zantac -) 150 mg PO DAILY [facility] Last Admin: 07/12/18 09:35 Dose: 150 mg Ranolazine (Ranexa -) 500 mg PO BID [facility] Last Admin: 07/12/18 09:39 Dose: Not Given Sodium Chloride ([place] Nasal [place] -) 2 spray NS TID [facility] Last Admin: 07/12/18 14:05 Dose: 2 spray Tiotropium [place] (Spiriva Respimat) 2 puff IH DAILY [facility] Last Admin: 07/12/18 09:46 Dose: 2 puff Verapamil HCl (Calan Sr -) 240 mg PO BID [facility] Last Admin: 07/12/18 09:36 Dose: 240 mg - Objective Vital Signs: Vital Signs Temperature 98.1 F 07/12/18 10:00 Pulse Rate 80 07/12/18 10:00 Respiratory Rate 22 H 07/12/18 10:00 Blood Pressure 141/73 07/12/18 10:00 O2 Sat by Pulse Oximetry (%) 99 07/12/18 09:00 Constitutional: Yes: Well Nourished, Calm Eyes: Yes: WNL HENT: Yes: WNL Neck: Yes: WNL Cardiovascular: Yes: Regular Rate and Rhythm, S1, S2 Respiratory: Yes: Rhonchi (bilateral wheezes and rhonchi), Wheezes Gastrointestinal: Yes: Normal Bowel Sounds, Soft Extremities: Yes: WNL Edema: No Labs: CBC, BMP Problem List - Problems (1) COPD exacerbation Code(s): J44.1 - CHRONIC OBSTRUCTIVE PULMONARY DISEASE W (ACUTE) EXACERBATION (2) Shortness of breath Code(s): R06.02 - SHORTNESS OF BREATH (3) ASHD (arteriosclerotic heart disease) Code(s): I25.10 - ATHSCL HEART DISEASE OF [place] CORONARY ARTERY W/O ANG PCTRS (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 transplanted heart: [place] heart Associated angina: without angina Qualified Code(s): I25.10 - Atherosclerotic heart disease of [place] coronary artery without angina pectoris (7) Diastolic dysfunction Code(s): I51.9 - HEART DISEASE, UNSPECIFIED (8) HTN (hypertension) Code(s): I10 - ESSENTIAL (PRIMARY) HYPERTENSION Qualifiers: Hypertension type: essential hypertension Qualified Code(s): I10 - Essential (primary) hypertension (9) History of myocardial infarction Code(s): I25.2 - OLD MYOCARDIAL INFARCTION (10) Lung nodule < 6cm on CT Code(s): R91.1 - SOLITARY PULMONARY NODULE Assessment/Plan IMP DYSPNEA ACUTE EXACERBATION OF COPD PNEUMONIA H/O PULMONARY NODULES ASHD S/P [place] HTN DIASTOLIC HF PLAN INCREASE MEDROL 60Q6 INHALED BRONCHODILATORS O2 ABX PFTS OUTPATIENT AMBULATORY O2 SAT PRIOR TO DISCHARGE F/U CHEST CT OUTPATIENT 6 WKS TO CONFIRM RESOLUTION RML CONSOLIDATION DR LEÓN Problem List - Problems (1) COPD exacerbation Code(s): J44.1 - CHRONIC OBSTRUCTIVE PULMONARY DISEASE W (ACUTE) EXACERBATION (2) Shortness of breath Code(s): R06.02 - SHORTNESS OF BREATH (3) ASHD (arteriosclerotic heart disease) Code(s): I25.10 - ATHSCL HEART DISEASE OF [place] CORONARY ARTERY W/O ANG PCTRS (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 transplanted heart: [place] heart Associated angina: without angina Qualified Code(s): I25.10 - Atherosclerotic heart disease of [place] coronary artery without angina pectoris (7) Diastolic dysfunction Code(s): I51.9 - HEART DISEASE, UNSPECIFIED (8) HTN (hypertension) Code(s): I10 - ESSENTIAL (PRIMARY) HYPERTENSION Qualifiers: Hypertension type: essential hypertension Qualified Code(s): I10 - Essential (primary) hypertension (9) History of myocardial infarction Code(s): I25.2 - OLD MYOCARDIAL INFARCTION (10) Lung nodule < 6cm on CT Code(s): R91.1 - SOLITARY PULMONARY NODULE
[2018-07-12] MEDS: ALPRAZolam 0.25 MG TABLET PO PRN (21:48)
[2018-07-12] MEDS: DOCUSATE SODIUM 100 MG CAPSULE (FP) PO SCH (21:48)
[2018-07-12] MEDS: MONTELUKAST NA 10 MG TABLET PO SCH (21:48)
[2018-07-12] MEDS: ATORVASTATIN CA 80 MG TABLET (FP) PO SCH (21:48)
[2018-07-13] MEDS: methylPREDNISolone NA SUCC 40 MG/1 ML VIAL IVPB SCH ×4 (02:33→21:32)
[2018-07-13] MEDS: SODIUM CHLORIDE NASAL SPRAY 44 ML BOTTLE NS SCH ×3 (06:12→22:10)
[2018-07-13 07:24] LABS: BASO % 0.2 % (0-2.0); HEMATOCRIT 35.1 % (32.4-45.2); HEMOGLOBIN 12.2 GM/dL (10.7-15.3); LYMPH % 4.8 % (8-40); MCH 31.4 pg (25.7-33.7); MCHC 34.9 g/dl (32.0-36.0); MEAN PLT VOLUME 6.9 fl (7.5-11.1); MONO % 2.6 % (3.8-10.2); NEUT % 92.4 % (42.8-82.8); PLATELET COUNT 309 K/MM3 (134-434); RDW 15.2 % (11.6-15.6); WHITE BLOOD COUNT 9.9 K/mm3 (4.0-10.0)
[2018-07-13 08:08] LABS: ALK PHOS 66 U/L (45-117); ANION GAP 6 MMOL/L (8-16); BILIRUBIN,TOTAL 0.2 mg/dL (0.2-1); BLOOD UREA NITROGEN 21 mg/dL (7-18); CALCIUM 8.4 mg/dL (8.5-10.1); CHLORIDE 99 mmol/L (98-107); CO2 31 mmol/L (21-32); CREATININE 0.7 mg/dL (0.55-1.3); GLUCOSE,RANDOM 153 mg/dL (74-106); POTASSIUM 4.5 mmol/L (3.5-5.1); SGOT/AST 11 U/L (15-37); SGPT/ALT 23 U/L (13-61); SODIUM 137 mmol/L (136-145); TOT PROT 5.8 g/dl (6.4-8.2)
--- NOTE | 2018-07-13 08:08 | PN ---
Progress Note, Physician Chief Complaint: still wheezing but feeling a little better - Current Medication List Current Medications: Active Medications Acetaminophen (Tylenol -) 650 mg PO Q6H PRN PRN Reason: FEVER Last Admin: 07/11/18 15:47 Dose: 650 mg Al Hydroxide/Mg Hydroxide (Mylanta Oral Suspension -) 30 ml PO Q6H PRN PRN Reason: DYSPEPSIA Albuterol Sulfate (Ventolin 0.083% Nebulizer Soln -) 1 amp NEB Q4H PRN PRN Reason: SHORT OF BREATH/WHEEZING Last Admin: 07/12/18 21:25 Dose: 1 amp Alprazolam (Xanax -) 0.25 mg PO Q12H PRN PRN Reason: ANXIETY Last Admin: 07/12/18 21:48 Dose: 0.25 mg Aspirin (Asa -) 81 mg PO DAILY [facility] Last Admin: 07/12/18 09:35 Dose: 81 mg Atorvastatin Calcium (Lipitor -) 80 mg PO HS [facility] Last Admin: 07/12/18 21:48 Dose: 80 mg Azithromycin (Zithromax -) 250 mg PO DAILY [facility] Last Admin: 07/12/18 09:35 Dose: 250 mg Budesonide/Formoterol Fumarate (Symbicort 160/4.5mcg -) 2 puff IH BID [facility] Last Admin: 07/12/18 21:48 Dose: 2 puff Clopidogrel Bisulfate (Plavix -) 75 mg PO DAILY [facility] Last Admin: 07/12/18 09:35 Dose: 75 mg Docusate Sodium (Colace -) 300 mg PO HS [facility] Last Admin: 07/12/18 21:48 Dose: 300 mg Fluticasone Propionate (Flonase -) 1 spray NS BID [facility] Last Admin: 07/12/18 21:49 Dose: 1 spr Folic Acid (Folic Acid -) 1 mg PO DAILY [facility] Last Admin: 07/12/18 09:35 Dose: 1 mg Furosemide (Lasix -) 20 mg PO DAILY [facility] Last Admin: 07/12/18 09:35 Dose: 20 mg Guaifenesin (Robitussin Dm -) 10 ml PO Q6H PRN PRN Reason: COUGH Ceftriaxone Sodium 1 gm/ (Dextrose) 50 mls @ 100 mls/hr IVPB DAILY [facility]; Protocol Last Admin: 07/12/18 09:46 Dose: 100 mls/hr Isosorbide Mononitrate (Imdur -) 30 mg PO BIDISMO [facility] Last Admin: 07/12/18 17:06 Dose: 30 mg Meclizine HCl (Antivert -) 25 mg PO Q6H PRN PRN Reason: VERTIGO Methylprednisolone Sodium Succinate (Solu-Medrol -) 60 mg IVPB Q6H-IV [facility] Last Admin: 07/13/18 02:33 Dose: 60 mg Montelukast Sodium (Singulair -) 10 mg PO HS [facility] Last Admin: 07/12/18 21:48 Dose: 10 mg Mupirocin (Bactroban 2% Ointment -) 1 applic TP BID [facility] Last Admin: 07/12/18 21:49 Dose: Not Given Nitroglycerin (Nitrostat -) 0.4 mg SL Q5M PRN PRN Reason: FOR CHEST PAIN Pantoprazole Sodium (Protonix -) 40 mg PO DAILY [facility] Last Admin: 07/12/18 09:35 Dose: 40 mg Potassium Chloride (K-Dur -) 10 meq PO BID [facility] Last Admin: 07/12/18 21:48 Dose: 10 meq Ranitidine HCl (Zantac -) 150 mg PO DAILY [facility] Last Admin: 07/12/18 09:35 Dose: 150 mg Ranolazine (Ranexa -) 500 mg PO BID [facility] Last Admin: 07/12/18 21:50 Dose: Not Given Sodium Chloride ([place] Nasal [place] -) 2 spray NS TID [facility] Last Admin: 07/13/18 06:12 Dose: 2 spray Tiotropium [place] (Spiriva Respimat) 2 puff IH DAILY [facility] Last Admin: 07/12/18 09:46 Dose: 2 puff Verapamil HCl (Calan Sr -) 240 mg PO BID [facility] Last Admin: 07/12/18 21:48 Dose: 240 mg - Objective Vital Signs: Vital Signs Temperature 98.2 F 07/13/18 06:00 Pulse Rate 62 07/13/18 06:00 Respiratory Rate 20 07/13/18 06:00 Blood Pressure 115/44 L 07/13/18 06:00 O2 Sat by Pulse Oximetry (%) 94 L 07/12/18 21:00 Constitutional: Yes: No Distress, Calm Eyes: Yes: Conjunctiva Clear HENT: Yes: Atraumatic Neck: Yes: Supple Cardiovascular: Yes: Regular Rate and Rhythm Respiratory: Yes: Wheezes Gastrointestinal: Yes: Soft. No: Tenderness Genitourinary: No: CVA Tenderness - Left, CVA Tenderness - Right, Hematuria Musculoskeletal: No: Joint Stiffness Extremities: No: Cold, Cool, Cyanosis Edema: No Integumentary: No: Rash, Venous Stasis Changes Neurological: Yes: WNL, Alert, Oriented ...Motor Strength: WNL Psychiatric: Yes: WNL, Alert, Oriented. No: Agitated, Suicidal Ideation - ....Imaging Other: Report Reviewed Assessment/Plan The patient is a 63-year-old female with a past medical history significant for CAD, HTN, CA s/p angioplasty, COPD, diastolic CHF, PVD and mesenteric ischemia s /p SMA bypass (2011) admitted with acute COPD exac and PNA IV steroids IV antibiotics O2, nebs pulmonary f/u falls DVT PFX d/w pt will need outpt chest CT in 1-2 months to ensure resolution of lung changes, if not resolved will need biopsy r/o malignancy; also d/w pt will need outpt pulm, cardiology f/u, surgery f/u for flank hernia repair, and health maintenance pap [facility] GI colonoscopy mammogram BDT which were not done for long time despite being advised repeatedly to do them; d/w pt again all the above. d/w pt and staff
[2018-07-13] MEDS ORDERED: DEXTROSE 5%-WATER - 50 ML IVPB ONE (10:06)
[2018-07-13] MEDS ORDERED: cefTRIAXone SODIUM 1 GM VIAL ONE (10:06)
[2018-07-13] MEDS ORDERED: PT OWN MED DRAWER 7, Y5N ONE ×4 (10:06→19:16)
[2018-07-13] MEDS: FLUTICASONE PROP 0.05% 16 GM NASAL SPRAY NS SCH ×2 (10:10→21:34)
[2018-07-13] MEDS: TIOTROPIUM BROMIDE 2.5 MCG (SPIRIVA) RESPIMAT INHALER IH SCH (10:10)
[2018-07-13] MEDS: CEFTRIAXONE 1 GM in DEXTROSE 5%-WATER - 50 ML IVPB SCH (10:13)
[2018-07-13] MEDS: ASPIRIN 81 MG CHEWABLE TABLETS PO SCH (10:14)
[2018-07-13] MEDS: PANTOPRAZOLE 40 MG TABLET (FP) PO SCH (10:14)
[2018-07-13] MEDS: ISOSORBIDE MONONITRATE 30 MG TAB.SR.24H (FP) PO SCH ×2 (10:14→17:38)
[2018-07-13] MEDS: VERAPAMIL HCL 240 MG E.R. TABLET (FP) PO SCH ×2 (10:14→21:38)
[2018-07-13] MEDS: CLOPIDOGREL BISULFATE 75 MG TABLET (FP) PO SCH (10:14)
[2018-07-13] MEDS: FOLIC ACID 1 MG TABLET (FP) PO SCH (10:14)
[2018-07-13] MEDS: POTASSIUM CHLORIDE TABS 10 MEQ TABLET.ER (FP) PO SCH ×2 (10:14→21:34)
[2018-07-13] MEDS: RANITIDINE HCL 150 MG TABLET (FP) PO SCH (10:14)
[2018-07-13] MEDS: FUROSEMIDE 20 MG TABLET (FP) PO SCH (10:14)
[2018-07-13] MEDS: AZITHROMYCIN 250 MG TABLET PO SCH (10:14)
[2018-07-13] MEDS: RANOLAZINE E.R. 500 MG TABLET (FP) PO SCH ×2 (10:20→21:34)
[2018-07-13] MEDS: MUPIROCIN 2% TOPICAL OINTMENT 22 GM TUBE TP SCH (10:30)
[2018-07-13 11:47] LABS: ACANTHOCYTES 0; ANISOCYTOSIS 0; HELMET CELLS 0; HOWELL-JOLLY BODIES 0; MACROCYTOSIS 0; OVALOCYTE 0; PLATELET ESTIMATE NORMAL; ROULEAU 0; SICKELED CELLS 0; TARGET CELLS 0; TEAR DROP CELLS 0; TOXIC GRANULATION 0
[2018-07-13] MEDS: BUDESONIDE/FORMETEROL FUMARATE 160/4.5 mcg INHALER IH SCH ×2 (13:24→21:34)
--- NOTE | 2018-07-13 13:38 | PN ---
Progress Note, Physician History of Present Illness: pulmonary alert,slowly improving,less congested,+ dry cough - Current Medication List Current Medications: Active Medications Acetaminophen (Tylenol -) 650 mg PO Q6H PRN PRN Reason: FEVER Last Admin: 07/11/18 15:47 Dose: 650 mg Al Hydroxide/Mg Hydroxide (Mylanta Oral Suspension -) 30 ml PO Q6H PRN PRN Reason: DYSPEPSIA Albuterol Sulfate (Ventolin 0.083% Nebulizer Soln -) 1 amp NEB Q4H PRN PRN Reason: SHORT OF BREATH/WHEEZING Last Admin: 07/12/18 21:25 Dose: 1 amp Alprazolam (Xanax -) 0.25 mg PO Q12H PRN PRN Reason: ANXIETY Last Admin: 07/12/18 21:48 Dose: 0.25 mg Aspirin (Asa -) 81 mg PO DAILY [facility] Last Admin: 07/13/18 10:14 Dose: 81 mg Atorvastatin Calcium (Lipitor -) 80 mg PO HS [facility] Last Admin: 07/12/18 21:48 Dose: 80 mg Azithromycin (Zithromax -) 250 mg PO DAILY [facility] Last Admin: 07/13/18 10:14 Dose: 250 mg Budesonide/Formoterol Fumarate (Symbicort 160/4.5mcg -) 2 puff IH BID [facility] Last Admin: 07/13/18 13:24 Dose: 2 puff Clopidogrel Bisulfate (Plavix -) 75 mg PO DAILY [facility] Last Admin: 07/13/18 10:14 Dose: 75 mg Docusate Sodium (Colace -) 300 mg PO HS [facility] Last Admin: 07/12/18 21:48 Dose: 300 mg Fluticasone Propionate (Flonase -) 1 spray NS BID [facility] Last Admin: 07/13/18 10:10 Dose: 1 spr Folic Acid (Folic Acid -) 1 mg PO DAILY [facility] Last Admin: 07/13/18 10:14 Dose: 1 mg Furosemide (Lasix -) 20 mg PO DAILY [facility] Last Admin: 07/13/18 10:14 Dose: 20 mg Guaifenesin (Robitussin Dm -) 10 ml PO Q6H PRN PRN Reason: COUGH Ceftriaxone Sodium 1 gm/ (Dextrose) 50 mls @ 100 mls/hr IVPB DAILY [facility]; Protocol Last Admin: 07/13/18 10:13 Dose: 100 mls/hr Isosorbide Mononitrate (Imdur -) 30 mg PO BIDISMO [facility] Last Admin: 07/13/18 10:14 Dose: 30 mg Meclizine HCl (Antivert -) 25 mg PO Q6H PRN PRN Reason: VERTIGO Methylprednisolone Sodium Succinate (Solu-Medrol -) 60 mg IVPB Q6H-IV [facility] Last Admin: 07/13/18 09:44 Dose: 60 mg Montelukast Sodium (Singulair -) 10 mg PO HS [facility] Last Admin: 07/12/18 21:48 Dose: 10 mg Mupirocin (Bactroban 2% Ointment -) 1 applic TP BID [facility] Last Admin: 07/13/18 10:30 Dose: Not Given Nitroglycerin (Nitrostat -) 0.4 mg SL Q5M PRN PRN Reason: FOR CHEST PAIN Pantoprazole Sodium (Protonix -) 40 mg PO DAILY [facility] Last Admin: 07/13/18 10:14 Dose: 40 mg Potassium Chloride (K-Dur -) 10 meq PO BID [facility] Last Admin: 07/13/18 10:14 Dose: 10 meq Ranitidine HCl (Zantac -) 150 mg PO DAILY [facility] Last Admin: 07/13/18 10:14 Dose: 150 mg Ranolazine (Ranexa -) 500 mg PO BID [facility] Last Admin: 07/13/18 10:20 Dose: Not Given Sodium Chloride ([place] Nasal [place] -) 2 spray NS TID [facility] Last Admin: 07/13/18 06:12 Dose: 2 spray Tiotropium [place] (Spiriva Respimat) 2 puff IH DAILY [facility] Last Admin: 07/13/18 10:10 Dose: 2 puff Verapamil HCl (Calan Sr -) 240 mg PO BID [facility] Last Admin: 07/13/18 10:14 Dose: 240 mg - Objective Vital Signs: Vital Signs Temperature 97.4 F L 07/13/18 10:00 Pulse Rate 85 07/13/18 10:00 Respiratory Rate 24 H 07/13/18 10:00 Blood Pressure 149/68 07/13/18 10:00 O2 Sat by Pulse Oximetry (%) 94 L 07/12/18 21:00 Constitutional: Yes: Well Nourished, Calm Eyes: Yes: WNL HENT: Yes: WNL Neck: Yes: WNL Cardiovascular: Yes: Regular Rate and Rhythm, S1, S2 Respiratory: Yes: [place] (less wheezes bilaterally) Gastrointestinal: Yes: Normal Bowel Sounds, Soft Extremities: Yes: WNL Edema: No Labs: CBC, BMP 07/13/18 06:45 07/13/18 06:45 Problem List - Problems (1) COPD exacerbation Code(s): J44.1 - CHRONIC OBSTRUCTIVE PULMONARY DISEASE W (ACUTE) EXACERBATION (2) Shortness of breath Code(s): R06.02 - SHORTNESS OF BREATH (3) ASHD (arteriosclerotic heart disease) Code(s): I25.10 - ATHSCL HEART DISEASE OF [place] CORONARY ARTERY W/O ANG PCTRS (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 transplanted heart: [place] heart Associated angina: without angina Qualified Code(s): I25.10 - Atherosclerotic heart disease of [place] coronary artery without angina pectoris (7) Diastolic dysfunction Code(s): I51.9 - HEART DISEASE, UNSPECIFIED (8) HTN (hypertension) Code(s): I10 - ESSENTIAL (PRIMARY) HYPERTENSION Qualifiers: Hypertension type: essential hypertension Qualified Code(s): I10 - Essential (primary) hypertension (9) History of myocardial infarction Code(s): I25.2 - OLD MYOCARDIAL INFARCTION (10) Lung nodule < 6cm on CT Code(s): R91.1 - SOLITARY PULMONARY NODULE Assessment/Plan IMP DYSPNEA ACUTE EXACERBATION OF COPD PNEUMONIA H/O PULMONARY NODULES ASHD S/P [place] HTN DIASTOLIC HF PLAN CONTINUE MEDROL 60Q6 INHALED BRONCHODILATORS O2 ABX PFTS OUTPATIENT AMBULATORY O2 SAT PRIOR TO DISCHARGE F/U CHEST CT OUTPATIENT 6 WKS TO CONFIRM RESOLUTION RML CONSOLIDATION DR LEÓN Problem List - Problems (1) COPD exacerbation Code(s): J44.1 - CHRONIC OBSTRUCTIVE PULMONARY DISEASE W (ACUTE) EXACERBATION (2) Shortness of breath Code(s): R06.02 - SHORTNESS OF BREATH (3) ASHD (arteriosclerotic heart disease) Code(s): I25.10 - ATHSCL HEART DISEASE OF [place] CORONARY ARTERY W/O ANG PCTRS (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 transplanted heart: [place] heart Associated angina: without angina Qualified Code(s): I25.10 - Atherosclerotic heart disease of [place] coronary artery without angina pectoris (7) Diastolic dysfunction Code(s): I51.9 - HEART DISEASE, UNSPECIFIED (8) HTN (hypertension) Code(s): I10 - ESSENTIAL (PRIMARY) HYPERTENSION Qualifiers: Hypertension type: essential hypertension Qualified Code(s): I10 - Essential (primary) hypertension (9) History of myocardial infarction Code(s): I25.2 - OLD MYOCARDIAL INFARCTION (10) Lung nodule < 6cm on CT Code(s): R91.1 - SOLITARY PULMONARY NODULE
[2018-07-13] MEDS: ALBUTEROL SO4 0.083% IH SOL 2.5 MG/3 ML VIAL.NEB. NEB PRN ×2 (13:47→20:25)
[2018-07-13] MEDS: ATORVASTATIN CA 80 MG TABLET (FP) PO SCH (21:33)
[2018-07-13] MEDS: DOCUSATE SODIUM 100 MG CAPSULE (FP) PO SCH (21:33)
[2018-07-13] MEDS: MONTELUKAST NA 10 MG TABLET PO SCH (21:34)
[2018-07-13] MEDS: ALPRAZolam 0.25 MG TABLET PO PRN (21:43)
[2018-07-14] MEDS: ALBUTEROL SO4 0.083% IH SOL 2.5 MG/3 ML VIAL.NEB. NEB PRN ×3 (00:35→15:00)
[2018-07-14] MEDS: MUPIROCIN 2% TOPICAL OINTMENT 22 GM TUBE TP SCH ×3 (03:04→21:55)
[2018-07-14] MEDS: methylPREDNISolone NA SUCC 40 MG/1 ML VIAL IVPB SCH ×3 (03:05→17:26)
[2018-07-14] MEDS: SODIUM CHLORIDE NASAL SPRAY 44 ML BOTTLE NS SCH ×3 (06:10→21:38)
--- NOTE | 2018-07-14 06:15 | PN ---
Progress Note, Physician Chief Complaint: less cough less SOB; has a cold sore painful blister on R upper lip will order valtrex - Current Medication List Current Medications: Active Medications Acetaminophen (Tylenol -) 650 mg PO Q6H PRN PRN Reason: FEVER Last Admin: 07/11/18 15:47 Dose: 650 mg Al Hydroxide/Mg Hydroxide (Mylanta Oral Suspension -) 30 ml PO Q6H PRN PRN Reason: DYSPEPSIA Albuterol Sulfate (Ventolin 0.083% Nebulizer Soln -) 1 amp NEB Q4H PRN PRN Reason: SHORT OF BREATH/WHEEZING Last Admin: 07/14/18 00:35 Dose: 1 amp Alprazolam (Xanax -) 0.25 mg PO Q12H PRN PRN Reason: ANXIETY Last Admin: 07/13/18 21:43 Dose: 0.25 mg Aspirin (Asa -) 81 mg PO DAILY [facility] Last Admin: 07/13/18 10:14 Dose: 81 mg Atorvastatin Calcium (Lipitor -) 80 mg PO HS [facility] Last Admin: 07/13/18 21:33 Dose: 80 mg Azithromycin (Zithromax -) 250 mg PO DAILY [facility] Last Admin: 07/13/18 10:14 Dose: 250 mg Budesonide/Formoterol Fumarate (Symbicort 160/4.5mcg -) 2 puff IH BID [facility] Last Admin: 07/13/18 21:34 Dose: 2 puff Clopidogrel Bisulfate (Plavix -) 75 mg PO DAILY [facility] Last Admin: 07/13/18 10:14 Dose: 75 mg Docusate Sodium (Colace -) 300 mg PO HS [facility] Last Admin: 07/13/18 21:33 Dose: 300 mg Fluticasone Propionate (Flonase -) 1 spray NS BID [facility] Last Admin: 07/13/18 21:34 Dose: 1 spr Folic Acid (Folic Acid -) 1 mg PO DAILY [facility] Last Admin: 07/13/18 10:14 Dose: 1 mg Furosemide (Lasix -) 20 mg PO DAILY [facility] Last Admin: 07/13/18 10:14 Dose: 20 mg Guaifenesin (Robitussin Dm -) 10 ml PO Q6H PRN PRN Reason: COUGH Ceftriaxone Sodium 1 gm/ (Dextrose) 50 mls @ 100 mls/hr IVPB DAILY [facility]; Protocol Last Admin: 07/13/18 10:13 Dose: 100 mls/hr Isosorbide Mononitrate (Imdur -) 30 mg PO BIDISMO [facility] Last Admin: 07/13/18 17:38 Dose: 30 mg Meclizine HCl (Antivert -) 25 mg PO Q6H PRN PRN Reason: VERTIGO Methylprednisolone Sodium Succinate (Solu-Medrol -) 60 mg IVPB Q6H-IV [facility] Last Admin: 07/14/18 03:05 Dose: 60 mg Montelukast Sodium (Singulair -) 10 mg PO HS [facility] Last Admin: 07/13/18 21:34 Dose: 10 mg Mupirocin (Bactroban 2% Ointment -) 1 applic TP BID [facility] Last Admin: 07/14/18 03:04 Dose: Not Given Nitroglycerin (Nitrostat -) 0.4 mg SL Q5M PRN PRN Reason: FOR CHEST PAIN Pantoprazole Sodium (Protonix -) 40 mg PO DAILY [facility] Last Admin: 07/13/18 10:14 Dose: 40 mg Potassium Chloride (K-Dur -) 10 meq PO BID [facility] Last Admin: 07/13/18 21:34 Dose: 10 meq Ranitidine HCl (Zantac -) 150 mg PO DAILY [facility] Last Admin: 07/13/18 10:14 Dose: 150 mg Ranolazine (Ranexa -) 500 mg PO BID [facility] Last Admin: 07/13/18 21:34 Dose: 500 mg Sodium Chloride ([place] Nasal [place] -) 2 spray NS TID [facility] Last Admin: 07/14/18 06:10 Dose: 2 spray Tiotropium [place] (Spiriva Respimat) 2 puff IH DAILY [facility] Last Admin: 07/13/18 10:10 Dose: 2 puff Verapamil HCl (Calan Sr -) 240 mg PO BID [facility] Last Admin: 07/13/18 21:38 Dose: 240 mg - Objective Vital Signs: Vital Signs Temperature 97.5 F L 07/14/18 02:00 Pulse Rate 79 07/14/18 02:00 Respiratory Rate 20 07/14/18 02:00 Blood Pressure 117/48 L 07/14/18 02:00 O2 Sat by Pulse Oximetry (%) 96 07/13/18 21:00 Constitutional: Yes: No Distress, Calm Eyes: Yes: Conjunctiva Clear HENT: Yes: Atraumatic Neck: Yes: Supple Cardiovascular: Yes: Regular Rate and Rhythm Respiratory: Yes: Wheezes Gastrointestinal: Yes: Soft. No: Tenderness Genitourinary: No: Hematuria Musculoskeletal: No: Joint Stiffness, Joint Swelling Extremities: No: Cold, Cool, Cyanosis Edema: No Integumentary: No: Rash, Venous Stasis Changes Neurological: Yes: WNL, Alert, Oriented ...Motor Strength: WNL Psychiatric: Yes: WNL, Alert, Oriented. No: Agitated, Suicidal Ideation Labs: CBC, BMP 07/13/18 06:45 07/13/18 06:45 - ....Imaging Other: Report Reviewed Assessment/Plan The patient is a 63-year-old female with a past medical history significant for CAD, HTN, [place] s/p angioplasty, COPD, diastolic CHF, PVD and mesenteric ischemia s /p SMA bypass (2011) admitted with acute COPD exac and PNA IV steroids IV antibiotics O2, nebs pulmonary f/u valtrex po bid x 5 - 7 days for herpetic oral lesion falls DVT PFX d/w pt and staff
[2018-07-14] MEDS ORDERED: PT OWN MED DRAWER 7, Y5N ONE ×2 (08:27→14:07)
[2018-07-14] MEDS ORDERED: cefTRIAXone SODIUM 1 GM VIAL ONE (08:52)
[2018-07-14] MEDS ORDERED: DEXTROSE 5%-WATER - 50 ML IVPB ONE (08:53)
[2018-07-14] MEDS: POTASSIUM CHLORIDE TABS 10 MEQ TABLET.ER (FP) PO SCH ×2 (10:19→21:45)
[2018-07-14] MEDS: CEFTRIAXONE 1 GM in DEXTROSE 5%-WATER - 50 ML IVPB SCH (10:19)
[2018-07-14] MEDS: VERAPAMIL HCL 240 MG E.R. TABLET (FP) PO SCH ×2 (10:19→21:44)
[2018-07-14] MEDS: BUDESONIDE/FORMETEROL FUMARATE 160/4.5 mcg INHALER IH SCH ×2 (10:20→21:40)
[2018-07-14] MEDS: TIOTROPIUM BROMIDE 2.5 MCG (SPIRIVA) RESPIMAT INHALER IH SCH (10:21)
[2018-07-14] MEDS: FLUTICASONE PROP 0.05% 16 GM NASAL SPRAY NS SCH ×2 (10:21→21:40)
[2018-07-14] MEDS: FUROSEMIDE 20 MG TABLET (FP) PO SCH (10:22)
[2018-07-14] MEDS: CLOPIDOGREL BISULFATE 75 MG TABLET (FP) PO SCH (10:22)
[2018-07-14] MEDS: ISOSORBIDE MONONITRATE 30 MG TAB.SR.24H (FP) PO SCH ×2 (10:22→18:44)
[2018-07-14] MEDS: FOLIC ACID 1 MG TABLET (FP) PO SCH (10:22)
[2018-07-14] MEDS: RANITIDINE HCL 150 MG TABLET (FP) PO SCH (10:22)
[2018-07-14] MEDS: PANTOPRAZOLE 40 MG TABLET (FP) PO SCH (10:22)
[2018-07-14] MEDS: AZITHROMYCIN 250 MG TABLET PO SCH (10:22)
[2018-07-14] MEDS: ASPIRIN 81 MG CHEWABLE TABLETS PO SCH (10:23)
[2018-07-14] MEDS: RANOLAZINE E.R. 500 MG TABLET (FP) PO SCH ×2 (10:24→21:45)
--- NOTE | 2018-07-14 11:22 | PN ---
Progress Note (short form) - Note Progress Note: PULMONARY Still with shortness of breath, cough and chest tightness but feeling better today. Vital Signs Period Temp Pulse Resp BP Sys/Mann Pulse Ox Last 24 Hr 97.5 F-98.7 F 69-82 20-23 117-140/48-72 96 Gen: less tachypneic Heart: RRR Lung: distant breath sounds, scattered rhonchi Abd: soft, nontender Ext: no edema CBC, BMP 07/13/18 06:45 07/13/18 06:45 Active Medications Acetaminophen (Tylenol -) 650 mg PO Q6H PRN PRN Reason: FEVER Last Admin: 07/11/18 15:47 Dose: 650 mg Al Hydroxide/Mg Hydroxide (Mylanta Oral Suspension -) 30 ml PO Q6H PRN PRN Reason: DYSPEPSIA Albuterol Sulfate (Ventolin 0.083% Nebulizer Soln -) 1 amp NEB Q4H PRN PRN Reason: SHORT OF BREATH/WHEEZING Last Admin: 07/14/18 06:15 Dose: 1 amp Alprazolam (Xanax -) 0.25 mg PO Q12H PRN PRN Reason: ANXIETY Last Admin: 07/13/18 21:43 Dose: 0.25 mg Aspirin (Asa -) 81 mg PO DAILY [facility] Last Admin: 07/14/18 10:23 Dose: 81 mg Atorvastatin Calcium (Lipitor -) 80 mg PO HS [facility] Last Admin: 07/13/18 21:33 Dose: 80 mg Azithromycin (Zithromax -) 250 mg PO DAILY [facility] Last Admin: 07/14/18 10:22 Dose: 250 mg Budesonide/Formoterol Fumarate (Symbicort 160/4.5mcg -) 2 puff IH BID [facility] Last Admin: 07/14/18 10:20 Dose: 2 puff Clopidogrel Bisulfate (Plavix -) 75 mg PO DAILY [facility] Last Admin: 07/14/18 10:22 Dose: 75 mg Docusate Sodium (Colace -) 300 mg PO HS [facility] Last Admin: 07/13/18 21:33 Dose: 300 mg Fluticasone Propionate (Flonase -) 1 spray NS BID [facility] Last Admin: 07/14/18 10:21 Dose: 1 spr Folic Acid (Folic Acid -) 1 mg PO DAILY [facility] Last Admin: 07/14/18 10:22 Dose: 1 mg Furosemide (Lasix -) 20 mg PO DAILY [facility] Last Admin: 07/14/18 10:22 Dose: 20 mg Guaifenesin (Robitussin Dm -) 10 ml PO Q6H PRN PRN Reason: COUGH Ceftriaxone Sodium 1 gm/ (Dextrose) 50 mls @ 100 mls/hr IVPB DAILY [facility]; Protocol Last Admin: 07/14/18 10:19 Dose: 100 mls/hr Isosorbide Mononitrate (Imdur -) 30 mg PO BIDISMO [facility] Last Admin: 07/14/18 10:22 Dose: 30 mg Meclizine HCl (Antivert -) 25 mg PO Q6H PRN PRN Reason: VERTIGO Methylprednisolone Sodium Succinate (Solu-Medrol -) 60 mg IVPB Q6H-IV [facility] Last Admin: 07/14/18 09:53 Dose: 60 mg Montelukast Sodium (Singulair -) 10 mg PO HS [facility] Last Admin: 07/13/18 21:34 Dose: 10 mg Mupirocin (Bactroban 2% Ointment -) 1 applic TP BID [facility] Last Admin: 07/14/18 10:23 Dose: Not Given Nitroglycerin (Nitrostat -) 0.4 mg SL Q5M PRN PRN Reason: FOR CHEST PAIN Pantoprazole Sodium (Protonix -) 40 mg PO DAILY [facility] Last Admin: 07/14/18 10:22 Dose: 40 mg Potassium Chloride (K-Dur -) 10 meq PO BID [facility] Last Admin: 07/14/18 10:19 Dose: 10 meq Ranitidine HCl (Zantac -) 150 mg PO DAILY [facility] Last Admin: 07/14/18 10:22 Dose: 150 mg Ranolazine (Ranexa -) 500 mg PO BID [facility] Last Admin: 07/14/18 10:24 Dose: Not Given Sodium Chloride ([place] Nasal [place] -) 2 spray NS TID [facility] Last Admin: 07/14/18 06:10 Dose: 2 spray Tiotropium [place] (Spiriva Respimat) 2 puff IH DAILY [facility] Last Admin: 07/14/18 10:21 Dose: 2 puff Verapamil HCl (Calan Sr -) 240 mg PO BID [facility] Last Admin: 07/14/18 10:19 Dose: 240 mg A/P Acute COPD Exacerbation Pneumonia Lung Nodules CAD LV Diastolic Dysfunction HTN - will decrease medrol to 60mg q8h - inhaled bronchodilators standing and PRN - O2 to keep SpO2 >90% - continue antibiotics - outpt f/u of CT chest to ensure resolution - DVT prophylaxis
[2018-07-14] MEDS: valACYclovir HCL 500 MG TABLET (FP) PO SCH (21:44)
[2018-07-14] MEDS: ATORVASTATIN CA 80 MG TABLET (FP) PO SCH (21:45)
[2018-07-14] MEDS: DOCUSATE SODIUM 100 MG CAPSULE (FP) PO SCH (21:45)
[2018-07-14] MEDS: MONTELUKAST NA 10 MG TABLET PO SCH (21:45)
[2018-07-14] MEDS: ALPRAZolam 0.25 MG TABLET PO PRN (21:51)
[2018-07-15] MEDS: methylPREDNISolone NA SUCC 40 MG/1 ML VIAL IVPB SCH ×3 (02:11→18:03)
[2018-07-15] MEDS: SODIUM CHLORIDE NASAL SPRAY 44 ML BOTTLE NS SCH ×3 (06:25→21:32)
--- NOTE | 2018-07-15 08:24 | PN ---
Progress Note, Physician Chief Complaint: no change still some SOB but slightly less - Current Medication List Current Medications: Active Medications Acetaminophen (Tylenol -) 650 mg PO Q6H PRN PRN Reason: FEVER Last Admin: 07/11/18 15:47 Dose: 650 mg Al Hydroxide/Mg Hydroxide (Mylanta Oral Suspension -) 30 ml PO Q6H PRN PRN Reason: DYSPEPSIA Albuterol Sulfate (Ventolin 0.083% Nebulizer Soln -) 1 amp NEB Q4H PRN PRN Reason: SHORT OF BREATH/WHEEZING Last Admin: 07/14/18 15:00 Dose: 1 amp Alprazolam (Xanax -) 0.25 mg PO Q12H PRN PRN Reason: ANXIETY Last Admin: 07/14/18 21:51 Dose: 0.25 mg Aspirin (Asa -) 81 mg PO DAILY [facility] Last Admin: 07/14/18 10:23 Dose: 81 mg Atorvastatin Calcium (Lipitor -) 80 mg PO HS [facility] Last Admin: 07/14/18 21:45 Dose: 80 mg Azithromycin (Zithromax -) 250 mg PO DAILY [facility] Last Admin: 07/14/18 10:22 Dose: 250 mg Budesonide/Formoterol Fumarate (Symbicort 160/4.5mcg -) 2 puff IH BID [facility] Last Admin: 07/14/18 21:40 Dose: 2 puff Clopidogrel Bisulfate (Plavix -) 75 mg PO DAILY [facility] Last Admin: 07/14/18 10:22 Dose: 75 mg Docusate Sodium (Colace -) 300 mg PO HS [facility] Last Admin: 07/14/18 21:45 Dose: 300 mg Fluticasone Propionate (Flonase -) 1 spray NS BID [facility] Last Admin: 07/14/18 21:40 Dose: 1 spr Folic Acid (Folic Acid -) 1 mg PO DAILY [facility] Last Admin: 07/14/18 10:22 Dose: 1 mg Furosemide (Lasix -) 20 mg PO DAILY [facility] Last Admin: 07/14/18 10:22 Dose: 20 mg Guaifenesin (Robitussin Dm -) 10 ml PO Q6H PRN PRN Reason: COUGH Ceftriaxone Sodium 1 gm/ (Dextrose) 50 mls @ 100 mls/hr IVPB DAILY [facility]; Protocol Last Admin: 07/14/18 10:19 Dose: 100 mls/hr Isosorbide Mononitrate (Imdur -) 30 mg PO BIDISMO [facility] Last Admin: 07/14/18 18:44 Dose: 30 mg Meclizine HCl (Antivert -) 25 mg PO Q6H PRN PRN Reason: VERTIGO Methylprednisolone Sodium Succinate (Solu-Medrol -) 60 mg IVPB Q8H-IV [facility] Last Admin: 07/15/18 02:11 Dose: 60 mg Montelukast Sodium (Singulair -) 10 mg PO HS [facility] Last Admin: 07/14/18 21:45 Dose: 10 mg Mupirocin (Bactroban 2% Ointment -) 1 applic TP BID [facility] Last Admin: 07/14/18 21:55 Dose: Not Given Nitroglycerin (Nitrostat -) 0.4 mg SL Q5M PRN PRN Reason: FOR CHEST PAIN Pantoprazole Sodium (Protonix -) 40 mg PO DAILY [facility] Last Admin: 07/14/18 10:22 Dose: 40 mg Potassium Chloride (K-Dur -) 10 meq PO BID [facility] Last Admin: 07/14/18 21:45 Dose: 10 meq Ranitidine HCl (Zantac -) 150 mg PO DAILY [facility] Last Admin: 07/14/18 10:22 Dose: 150 mg Ranolazine (Ranexa -) 500 mg PO BID [facility] Last Admin: 07/14/18 21:45 Dose: Not Given Sodium Chloride ([place] Nasal [place] -) 2 spray NS TID [facility] Last Admin: 07/15/18 06:25 Dose: 2 spray Tiotropium [place] (Spiriva Respimat) 2 puff IH DAILY [facility] Last Admin: 07/14/18 10:21 Dose: 2 puff Valacyclovir HCl (Valtrex -) 500 mg PO BID [facility] Last Admin: 07/14/18 21:44 Dose: 500 mg Verapamil HCl (Calan Sr -) 240 mg PO BID [facility] Last Admin: 07/14/18 21:44 Dose: 240 mg - Objective Vital Signs: Vital Signs Temperature 98.2 F 07/15/18 06:00 Pulse Rate 66 07/15/18 06:00 Respiratory Rate 22 H 07/15/18 06:00 Blood Pressure 120/50 L 07/15/18 06:00 O2 Sat by Pulse Oximetry (%) 97 07/14/18 21:00 Constitutional: Yes: No Distress, Calm Eyes: Yes: Conjunctiva Clear HENT: Yes: Atraumatic Neck: Yes: Supple Cardiovascular: Yes: Regular Rate and Rhythm Respiratory: Yes: Rales, Wheezes Gastrointestinal: Yes: Soft. No: Distention, Tenderness Genitourinary: No: CVA Tenderness - Left, CVA Tenderness - Right Musculoskeletal: No: Joint Stiffness, Joint Swelling Extremities: No: Cold, Cool, Cyanosis Edema: No Integumentary: No: Bruising, Rash, Venous Stasis Changes Neurological: Yes: WNL, Alert, Oriented ...Motor Strength: WNL Psychiatric: Yes: WNL, Alert, Oriented. No: Agitated, Suicidal Ideation - ....Imaging Other: Report Reviewed Assessment/Plan The patient is a 63-year-old female with a past medical history significant for CAD, HTN, [place] s/p angioplasty, COPD, diastolic CHF, PVD and mesenteric ischemia s /p SMA bypass (2011) admitted with acute COPD exac and PNA IV steroids IV antibiotics O2, nebs pulmonary f/u valtrex po bid x 5 - 7 days for herpetic oral lesion falls DVT PFX d/w pt and staff
[2018-07-15 08:46] LABS: ALBUMIN 2.6 g/dl (3.4-5.0); ALK PHOS 52 U/L (45-117); ANION GAP 7 MMOL/L (8-16); BILIRUBIN,TOTAL 0.2 mg/dL (0.2-1); BLOOD UREA NITROGEN 23 mg/dL (7-18); CALCIUM 8.2 mg/dL (8.5-10.1); CHLORIDE 99 mmol/L (98-107); CO2 31 mmol/L (21-32); CREATININE 0.6 mg/dL (0.55-1.3); GLUCOSE,RANDOM 140 mg/dL (74-106); POTASSIUM 4.5 mmol/L (3.5-5.1); SGOT/AST 13 U/L (15-37); SGPT/ALT 28 U/L (13-61); SODIUM 137 mmol/L (136-145); TOT PROT 5.2 g/dl (6.4-8.2)
[2018-07-15 09:25] LABS: BASO % 0.1 % (0-2.0); EOS % 0.1 % (0-4.5); HEMATOCRIT 34.8 % (32.4-45.2); LYMPH % 4.1 % (8-40); MCH 28.8 pg (25.7-33.7); MCHC 31.6 g/dl (32.0-36.0); MEAN CELL VOLUME 91.2 fl (80-96); MONO % 2.7 % (3.8-10.2); PLATELET COUNT 286 K/MM3 (134-434); RBC 3.81 M/mm3 (3.60-5.2); WHITE BLOOD COUNT 13.2 K/mm3 (4.0-10.0)
[2018-07-15] MEDS: MUPIROCIN 2% TOPICAL OINTMENT 22 GM TUBE TP SCH ×2 (10:00→21:33)
[2018-07-15] MEDS: ALBUTEROL SO4 0.083% IH SOL 2.5 MG/3 ML VIAL.NEB. NEB PRN ×3 (10:11→23:59)
[2018-07-15] MEDS ORDERED: cefTRIAXone SODIUM 1 GM VIAL ONE (10:45)
[2018-07-15] MEDS ORDERED: PT OWN MED DRAWER 7, Y5N ONE ×2 (10:45→21:26)
[2018-07-15] MEDS ORDERED: DEXTROSE 5%-WATER - 50 ML IVPB ONE (10:45)
[2018-07-15] MEDS: AZITHROMYCIN 250 MG TABLET PO SCH (10:54)
[2018-07-15] MEDS: RANITIDINE HCL 150 MG TABLET (FP) PO SCH (10:54)
[2018-07-15] MEDS: RANOLAZINE E.R. 500 MG TABLET (FP) PO SCH ×2 (10:54→21:23)
[2018-07-15] MEDS: ASPIRIN 81 MG CHEWABLE TABLETS PO SCH (10:54)
[2018-07-15] MEDS: FOLIC ACID 1 MG TABLET (FP) PO SCH (10:54)
[2018-07-15] MEDS: POTASSIUM CHLORIDE TABS 10 MEQ TABLET.ER (FP) PO SCH ×2 (10:54→21:31)
[2018-07-15] MEDS: ISOSORBIDE MONONITRATE 30 MG TAB.SR.24H (FP) PO SCH ×2 (10:54→18:03)
[2018-07-15] MEDS: PANTOPRAZOLE 40 MG TABLET (FP) PO SCH (10:54)
[2018-07-15] MEDS: FUROSEMIDE 20 MG TABLET (FP) PO SCH (10:54)
[2018-07-15] MEDS: CLOPIDOGREL BISULFATE 75 MG TABLET (FP) PO SCH (10:54)
[2018-07-15] MEDS: FLUTICASONE PROP 0.05% 16 GM NASAL SPRAY NS SCH ×2 (10:55→21:32)
[2018-07-15] MEDS: BUDESONIDE/FORMETEROL FUMARATE 160/4.5 mcg INHALER IH SCH ×2 (10:55→21:31)
[2018-07-15] MEDS: valACYclovir HCL 500 MG TABLET (FP) PO SCH ×2 (10:55→21:33)
[2018-07-15] MEDS: TIOTROPIUM BROMIDE 2.5 MCG (SPIRIVA) RESPIMAT INHALER IH SCH (10:55)
[2018-07-15] MEDS: CEFTRIAXONE 1 GM in DEXTROSE 5%-WATER - 50 ML IVPB SCH (10:55)
[2018-07-15] MEDS: VERAPAMIL HCL 240 MG E.R. TABLET (FP) PO SCH ×2 (10:56→21:32)
[2018-07-15 12:49] LABS: ANISOCYTOSIS 0; MACROCYTOSIS 0; PLATELET ESTIMATE NORMAL
--- NOTE | 2018-07-15 13:04 | PN ---
Progress Note, Physician History of Present Illness: pulmonary alert,less dyspneic,+ cough - Current Medication List Current Medications: Active Medications Acetaminophen (Tylenol -) 650 mg PO Q6H PRN PRN Reason: FEVER Last Admin: 07/11/18 15:47 Dose: 650 mg Al Hydroxide/Mg Hydroxide (Mylanta Oral Suspension -) 30 ml PO Q6H PRN PRN Reason: DYSPEPSIA Albuterol Sulfate (Ventolin 0.083% Nebulizer Soln -) 1 amp NEB Q4H PRN PRN Reason: SHORT OF BREATH/WHEEZING Last Admin: 07/15/18 10:11 Dose: 1 amp Alprazolam (Xanax -) 0.25 mg PO Q12H PRN PRN Reason: ANXIETY Last Admin: 07/14/18 21:51 Dose: 0.25 mg Aspirin (Asa -) 81 mg PO DAILY [facility] Last Admin: 07/15/18 10:54 Dose: 81 mg Atorvastatin Calcium (Lipitor -) 80 mg PO HS [facility] Last Admin: 07/14/18 21:45 Dose: 80 mg Azithromycin (Zithromax -) 250 mg PO DAILY [facility] Last Admin: 07/15/18 10:54 Dose: 250 mg Budesonide/Formoterol Fumarate (Symbicort 160/4.5mcg -) 2 puff IH BID [facility] Last Admin: 07/15/18 10:55 Dose: 2 puff Clopidogrel Bisulfate (Plavix -) 75 mg PO DAILY [facility] Last Admin: 07/15/18 10:54 Dose: 75 mg Docusate Sodium (Colace -) 300 mg PO HS [facility] Last Admin: 07/14/18 21:45 Dose: 300 mg Fluticasone Propionate (Flonase -) 1 spray NS BID [facility] Last Admin: 07/15/18 10:55 Dose: 1 spr Folic Acid (Folic Acid -) 1 mg PO DAILY [facility] Last Admin: 07/15/18 10:54 Dose: 1 mg Furosemide (Lasix -) 20 mg PO DAILY [facility] Last Admin: 07/15/18 10:54 Dose: 20 mg Guaifenesin (Robitussin Dm -) 10 ml PO Q6H PRN PRN Reason: COUGH Ceftriaxone Sodium 1 gm/ (Dextrose) 50 mls @ 100 mls/hr IVPB DAILY [facility]; Protocol Last Admin: 12/21/18 10:55 Dose: 100 mls/hr Isosorbide Mononitrate (Imdur -) 30 mg PO BIDISMO [facility] Last Admin: 07/15/18 10:54 Dose: 30 mg Meclizine HCl (Antivert -) 25 mg PO Q6H PRN PRN Reason: VERTIGO Methylprednisolone Sodium Succinate (Solu-Medrol -) 60 mg IVPB Q8H-IV [facility] Last Admin: 07/15/18 10:54 Dose: 60 mg Montelukast Sodium (Singulair -) 10 mg PO HS [facility] Last Admin: 07/14/18 21:45 Dose: 10 mg Mupirocin (Bactroban 2% Ointment -) 1 applic TP BID [facility] Last Admin: 07/14/18 21:55 Dose: Not Given Nitroglycerin (Nitrostat -) 0.4 mg SL Q5M PRN PRN Reason: FOR CHEST PAIN Pantoprazole Sodium (Protonix -) 40 mg PO DAILY [facility] Last Admin: 07/15/18 10:54 Dose: 40 mg Potassium Chloride (K-Dur -) 10 meq PO BID [facility] Last Admin: 07/15/18 10:54 Dose: 10 meq Ranitidine HCl (Zantac -) 150 mg PO DAILY [facility] Last Admin: 07/15/18 10:54 Dose: 150 mg Ranolazine (Ranexa -) 500 mg PO BID [facility] Last Admin: 07/15/18 10:54 Dose: 500 mg Sodium Chloride ([place] Nasal [place] -) 2 spray NS TID [facility] Last Admin: 07/15/18 06:25 Dose: 2 spray Tiotropium [place] (Spiriva Respimat) 2 puff IH DAILY [facility] Last Admin: 07/15/18 10:55 Dose: 2 puff Valacyclovir HCl (Valtrex -) 500 mg PO BID [facility] Last Admin: 07/15/18 10:55 Dose: 500 mg Verapamil HCl (Calan Sr -) 240 mg PO BID [facility] Last Admin: 07/15/18 10:56 Dose: 240 mg - Objective Vital Signs: Vital Signs Temperature 97.8 F 07/15/18 10:00 Pulse Rate 80 07/15/18 10:00 Respiratory Rate 22 H 07/15/18 10:00 Blood Pressure 130/55 L 07/15/18 10:00 O2 Sat by Pulse Oximetry (%) 97 07/14/18 21:00 Constitutional: Yes: Well Nourished, Calm Eyes: Yes: WNL HENT: Yes: WNL Neck: Yes: WNL Cardiovascular: Yes: Regular Rate and Rhythm, S1, S2 Respiratory: Yes: Wheezes (scattered marilee wheezes) Gastrointestinal: Yes: Normal Bowel Sounds, Soft Extremities: Yes: WNL Edema: No Labs: CBC, BMP 07/15/18 07:33 07/15/18 07:33 Problem List - Problems (1) COPD exacerbation Code(s): J44.1 - CHRONIC OBSTRUCTIVE PULMONARY DISEASE W (ACUTE) EXACERBATION (2) Shortness of breath Code(s): R06.02 - SHORTNESS OF BREATH (3) ASHD (arteriosclerotic heart disease) Code(s): I25.10 - ATHSCL HEART DISEASE OF [place] CORONARY ARTERY W/O ANG PCTRS (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 transplanted heart: [place] heart Associated angina: without angina Qualified Code(s): I25.10 - Atherosclerotic heart disease of [place] coronary artery without angina pectoris (7) Diastolic dysfunction Code(s): I51.9 - HEART DISEASE, UNSPECIFIED (8) HTN (hypertension) Code(s): I10 - ESSENTIAL (PRIMARY) HYPERTENSION Qualifiers: Hypertension type: essential hypertension Qualified Code(s): I10 - Essential (primary) hypertension (9) History of myocardial infarction Code(s): I25.2 - OLD MYOCARDIAL INFARCTION (10) Lung nodule < 6cm on CT Code(s): R91.1 - SOLITARY PULMONARY NODULE Assessment/Plan IMP DYSPNEA ACUTE EXACERBATION OF COPD PNEUMONIA H/O PULMONARY NODULES ASHD S/P TN HTN DIASTOLIC HF PLAN CONTINUE MEDROL 60Q8 INHALED BRONCHODILATORS O2 ABX PFTS OUTPATIENT AMBULATORY O2 SAT PRIOR TO DISCHARGE F/U CHEST CT OUTPATIENT 6 WKS TO CONFIRM RESOLUTION RML CONSOLIDATION DR LEÓN Problem List - Problems (1) COPD exacerbation Code(s): J44.1 - CHRONIC OBSTRUCTIVE PULMONARY DISEASE W (ACUTE) EXACERBATION (2) Shortness of breath Code(s): R06.02 - SHORTNESS OF BREATH (3) ASHD (arteriosclerotic heart disease) Code(s): I25.10 - ATHSCL HEART DISEASE OF [place] CORONARY ARTERY W/O ANG PCTRS (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 transplanted heart: [place] heart Associated angina: without angina Qualified Code(s): I25.10 - Atherosclerotic heart disease of [place] coronary artery without angina pectoris (7) Diastolic dysfunction Code(s): I51.9 - HEART DISEASE, UNSPECIFIED (8) HTN (hypertension) Code(s): I10 - ESSENTIAL (PRIMARY) HYPERTENSION Qualifiers: Hypertension type: essential hypertension Qualified Code(s): I10 - Essential (primary) hypertension (9) History of myocardial infarction Code(s): I25.2 - OLD MYOCARDIAL INFARCTION (10) Lung nodule < 6cm on CT Code(s): R91.1 - SOLITARY PULMONARY NODULE
[2018-07-15] MEDS: ATORVASTATIN CA 80 MG TABLET (FP) PO SCH (21:30)
[2018-07-15] MEDS: MONTELUKAST NA 10 MG TABLET PO SCH (21:31)
[2018-07-15] MEDS: DOCUSATE SODIUM 100 MG CAPSULE (FP) PO SCH (21:31)
[2018-07-15] MEDS: ALPRAZolam 0.25 MG TABLET PO PRN (21:31)
[2018-07-16] MEDS: methylPREDNISolone NA SUCC 40 MG/1 ML VIAL IVPB SCH ×3 (02:45→17:24)
[2018-07-16] MEDS: SODIUM CHLORIDE NASAL SPRAY 44 ML BOTTLE NS SCH ×3 (06:51→22:40)
--- NOTE | 2018-07-16 08:33 | PN ---
Progress Note, Physician Chief Complaint: less SOB no CP less cough - Current Medication List Current Medications: Active Medications Acetaminophen (Tylenol -) 650 mg PO Q6H PRN PRN Reason: FEVER Last Admin: 07/11/18 15:47 Dose: 650 mg Al Hydroxide/Mg Hydroxide (Mylanta Oral Suspension -) 30 ml PO Q6H PRN PRN Reason: DYSPEPSIA Albuterol Sulfate (Ventolin 0.083% Nebulizer Soln -) 1 amp NEB Q4H PRN PRN Reason: SHORT OF BREATH/WHEEZING Last Admin: 07/15/18 23:59 Dose: 1 amp Alprazolam (Xanax -) 0.25 mg PO Q12H PRN PRN Reason: ANXIETY Last Admin: 07/15/18 21:31 Dose: 0.25 mg Aspirin (Asa -) 81 mg PO DAILY [facility] Last Admin: 07/15/18 10:54 Dose: 81 mg Atorvastatin Calcium (Lipitor -) 80 mg PO HS [facility] Last Admin: 07/15/18 21:30 Dose: 80 mg Azithromycin (Zithromax -) 250 mg PO DAILY [facility] Last Admin: 07/15/18 10:54 Dose: 250 mg Budesonide/Formoterol Fumarate (Symbicort 160/4.5mcg -) 2 puff IH BID [facility] Last Admin: 07/15/18 21:31 Dose: 2 puff Clopidogrel Bisulfate (Plavix -) 75 mg PO DAILY [facility] Last Admin: 07/15/18 10:54 Dose: 75 mg Docusate Sodium (Colace -) 300 mg PO HS [facility] Last Admin: 07/15/18 21:31 Dose: 300 mg Fluticasone Propionate (Flonase -) 1 spray NS BID [facility] Last Admin: 07/15/18 21:32 Dose: 1 spr Folic Acid (Folic Acid -) 1 mg PO DAILY [facility] Last Admin: 07/15/18 10:54 Dose: 1 mg Furosemide (Lasix -) 20 mg PO DAILY [facility] Last Admin: 07/15/18 10:54 Dose: 20 mg Guaifenesin (Robitussin Dm -) 10 ml PO Q6H PRN PRN Reason: COUGH Ceftriaxone Sodium 1 gm/ (Dextrose) 50 mls @ 100 mls/hr IVPB DAILY [facility]; Protocol Last Admin: 07/15/18 10:55 Dose: 100 mls/hr Isosorbide Mononitrate (Imdur -) 30 mg PO BIDISMO [facility] Last Admin: 07/15/18 18:03 Dose: 30 mg Meclizine HCl (Antivert -) 25 mg PO Q6H PRN PRN Reason: VERTIGO Methylprednisolone Sodium Succinate (Solu-Medrol -) 40 mg IVPB Q8H-IV [facility] Montelukast Sodium (Singulair -) 10 mg PO HS [facility] Last Admin: 07/15/18 21:31 Dose: 10 mg Mupirocin (Bactroban 2% Ointment -) 1 applic TP BID [facility] Last Admin: 07/15/18 21:33 Dose: Not Given Nitroglycerin (Nitrostat -) 0.4 mg SL Q5M PRN PRN Reason: FOR CHEST PAIN Pantoprazole Sodium (Protonix -) 40 mg PO DAILY [facility] Last Admin: 07/15/18 10:54 Dose: 40 mg Potassium Chloride (K-Dur -) 10 meq PO BID [facility] Last Admin: 07/15/18 21:31 Dose: 10 meq Ranitidine HCl (Zantac -) 150 mg PO DAILY [facility] Last Admin: 07/15/18 10:54 Dose: 150 mg Ranolazine (Ranexa -) 500 mg PO BID [facility] Last Admin: 07/15/18 21:23 Dose: Not Given Sodium Chloride ([place] Nasal [place] -) 2 spray NS TID [facility] Last Admin: 07/16/18 06:51 Dose: 2 spray Tiotropium [place] (Spiriva Respimat) 2 puff IH DAILY [facility] Last Admin: 07/15/18 10:55 Dose: 2 puff Valacyclovir HCl (Valtrex -) 500 mg PO BID [facility] Last Admin: 07/15/18 21:33 Dose: 500 mg Verapamil HCl (Calan Sr -) 240 mg PO BID [facility] Last Admin: 07/15/18 21:32 Dose: 240 mg - Objective Vital Signs: Vital Signs Temperature 98.1 F 07/16/18 06:00 Pulse Rate 76 07/16/18 06:00 Respiratory Rate 20 07/16/18 06:00 Blood Pressure 133/74 07/16/18 06:00 O2 Sat by Pulse Oximetry (%) 95 07/15/18 21:00 Constitutional: Yes: No Distress, Calm Eyes: Yes: Conjunctiva Clear HENT: Yes: Atraumatic Neck: Yes: Supple Cardiovascular: Yes: Regular Rate and Rhythm Respiratory: Yes: Rales, Wheezes Gastrointestinal: Yes: Soft. No: Distention Genitourinary: No: CVA Tenderness - Left, CVA Tenderness - Right, Hematuria Musculoskeletal: No: Joint Stiffness, Joint Swelling Extremities: No: Cold, Cool, Cyanosis Edema: No Integumentary: No: Rash, Venous Stasis Changes Neurological: Yes: WNL, Alert, Oriented ...Motor Strength: WNL Psychiatric: Yes: WNL, Alert, Oriented. No: Agitated, Suicidal Ideation Labs: CBC, BMP 07/15/18 07:33 07/15/18 07:33 - ....Imaging Other: Report Reviewed Assessment/Plan The patient is a 63-year-old female with a past medical history significant for CAD, HTN, [place] s/p angioplasty, COPD, diastolic CHF, PVD and mesenteric ischemia s /p SMA bypass (2011) admitted with acute COPD exac and PNA IV steroids IV antibiotics O2, nebs pulmonary f/u valtrex po bid x 5 - 7 days for herpetic oral lesion falls DVT PFX d/w pt and staff
[2018-07-16] MEDS: ALBUTEROL SO4 0.083% IH SOL 2.5 MG/3 ML VIAL.NEB. NEB PRN ×3 (08:55→23:38)
[2018-07-16] MEDS ORDERED: PT OWN MED DRAWER 7, Y5N ONE ×2 (09:41→22:39)
[2018-07-16] MEDS ORDERED: DEXTROSE 5%-WATER - 50 ML IVPB ONE (09:41)
[2018-07-16] MEDS ORDERED: cefTRIAXone SODIUM 1 GM VIAL ONE (09:41)
[2018-07-16] MEDS: AZITHROMYCIN 250 MG TABLET PO SCH (09:44)
[2018-07-16] MEDS: PANTOPRAZOLE 40 MG TABLET (FP) PO SCH (09:44)
[2018-07-16] MEDS: POTASSIUM CHLORIDE TABS 10 MEQ TABLET.ER (FP) PO SCH ×2 (09:44→22:41)
[2018-07-16] MEDS: FUROSEMIDE 20 MG TABLET (FP) PO SCH (09:44)
[2018-07-16] MEDS: FOLIC ACID 1 MG TABLET (FP) PO SCH (09:45)
[2018-07-16] MEDS: CLOPIDOGREL BISULFATE 75 MG TABLET (FP) PO SCH (09:45)
[2018-07-16] MEDS: ASPIRIN 81 MG CHEWABLE TABLETS PO SCH (09:45)
[2018-07-16] MEDS: RANOLAZINE E.R. 500 MG TABLET (FP) PO SCH ×4 (09:45→22:41)
[2018-07-16] MEDS: RANITIDINE HCL 150 MG TABLET (FP) PO SCH (09:45)
[2018-07-16] MEDS: ISOSORBIDE MONONITRATE 30 MG TAB.SR.24H (FP) PO SCH ×2 (09:45→17:24)
[2018-07-16] MEDS: valACYclovir HCL 500 MG TABLET (FP) PO SCH ×2 (09:46→22:42)
[2018-07-16] MEDS: CEFTRIAXONE 1 GM in DEXTROSE 5%-WATER - 50 ML IVPB SCH (09:46)
[2018-07-16] MEDS: MUPIROCIN 2% TOPICAL OINTMENT 22 GM TUBE TP SCH ×2 (09:46→22:33)
[2018-07-16] MEDS: VERAPAMIL HCL 240 MG E.R. TABLET (FP) PO SCH ×2 (09:46→22:42)
[2018-07-16] MEDS: TIOTROPIUM BROMIDE 2.5 MCG (SPIRIVA) RESPIMAT INHALER IH SCH (09:47)
[2018-07-16] MEDS: FLUTICASONE PROP 0.05% 16 GM NASAL SPRAY NS SCH ×2 (09:47→22:40)
[2018-07-16] MEDS: BUDESONIDE/FORMETEROL FUMARATE 160/4.5 mcg INHALER IH SCH ×2 (09:47→22:40)
--- NOTE | 2018-07-16 12:28 | PN ---
Progress Note (short form) - Note Progress Note: PULMONARY Still with shortness of breath, cough and chest tightness but feels slightly better today. Vital Signs Period Temp Pulse Resp BP Sys/Mann Pulse Ox Last 24 Hr 97.6 F-98.1 F 76-92 20-21 120-153/54-74 95 Gen: less tachypneic Heart: RRR Lung: better air entry, scattered rhonchi Abd: soft, nontender Ext: no edema CBC, BMP 07/15/18 07:33 07/15/18 07:33 Active Medications Acetaminophen (Tylenol -) 650 mg PO Q6H PRN PRN Reason: FEVER Last Admin: 07/11/18 15:47 Dose: 650 mg Al Hydroxide/Mg Hydroxide (Mylanta Oral Suspension -) 30 ml PO Q6H PRN PRN Reason: DYSPEPSIA Albuterol Sulfate (Ventolin 0.083% Nebulizer Soln -) 1 amp NEB Q4H PRN PRN Reason: SHORT OF BREATH/WHEEZING Last Admin: 07/16/18 12:25 Dose: 1 amp Alprazolam (Xanax -) 0.25 mg PO Q12H PRN PRN Reason: ANXIETY Last Admin: 07/15/18 21:31 Dose: 0.25 mg Aspirin (Asa -) 81 mg PO DAILY [facility] Last Admin: 07/16/18 09:45 Dose: 81 mg Atorvastatin Calcium (Lipitor -) 80 mg PO HS [facility] Last Admin: 07/15/18 21:30 Dose: 80 mg Azithromycin (Zithromax -) 250 mg PO DAILY [facility] Last Admin: 07/16/18 09:44 Dose: 250 mg Budesonide/Formoterol Fumarate (Symbicort 160/4.5mcg -) 2 puff IH BID [facility] Last Admin: 07/16/18 09:47 Dose: 2 puff Clopidogrel Bisulfate (Plavix -) 75 mg PO DAILY [facility] Last Admin: 07/16/18 09:45 Dose: 75 mg Docusate Sodium (Colace -) 300 mg PO HS [facility] Last Admin: 07/15/18 21:31 Dose: 300 mg Fluticasone Propionate (Flonase -) 1 spray NS BID [facility] Last Admin: 07/16/18 09:47 Dose: 1 spr Folic Acid (Folic Acid -) 1 mg PO DAILY [facility] Last Admin: 07/16/18 09:45 Dose: 1 mg Furosemide (Lasix -) 20 mg PO DAILY [facility] Last Admin: 07/16/18 09:44 Dose: 20 mg Guaifenesin (Robitussin Dm -) 10 ml PO Q6H PRN PRN Reason: COUGH Ceftriaxone Sodium 1 gm/ (Dextrose) 50 mls @ 100 mls/hr IVPB DAILY [facility]; Protocol Last Admin: 07/16/18 09:46 Dose: 100 mls/hr Isosorbide Mononitrate (Imdur -) 30 mg PO BIDISMO [facility] Last Admin: 07/16/18 09:45 Dose: 30 mg Meclizine HCl (Antivert -) 25 mg PO Q6H PRN PRN Reason: VERTIGO Methylprednisolone Sodium Succinate (Solu-Medrol -) 40 mg IVPB Q8H-IV [facility] Last Admin: 07/16/18 09:45 Dose: 40 mg Montelukast Sodium (Singulair -) 10 mg PO HS [facility] Last Admin: 07/15/18 21:31 Dose: 10 mg Mupirocin (Bactroban 2% Ointment -) 1 applic TP BID [facility] Last Admin: 07/16/18 09:46 Dose: Not Given Nitroglycerin (Nitrostat -) 0.4 mg SL Q5M PRN PRN Reason: FOR CHEST PAIN Pantoprazole Sodium (Protonix -) 40 mg PO DAILY [facility] Last Admin: 07/16/18 09:44 Dose: 40 mg Potassium Chloride (K-Dur -) 10 meq PO BID [facility] Last Admin: 07/16/18 09:44 Dose: 10 meq Ranitidine HCl (Zantac -) 150 mg PO DAILY [facility] Last Admin: 07/16/18 09:45 Dose: 150 mg Ranolazine (Ranexa -) 500 mg PO BID [facility] Last Admin: 07/16/18 09:52 Dose: Not Given Sodium Chloride ([place] Nasal [place] -) 2 spray NS TID [facility] Last Admin: 07/16/18 06:51 Dose: 2 spray Tiotropium [place] (Spiriva Respimat) 2 puff IH DAILY [facility] Last Admin: 07/16/18 09:47 Dose: 2 puff Valacyclovir HCl (Valtrex -) 500 mg PO BID [facility] Last Admin: 07/16/18 09:46 Dose: 500 mg Verapamil HCl (Calan Sr -) 240 mg PO BID [facility] Last Admin: 07/16/18 09:46 Dose: 240 mg A/P Acute COPD Exacerbation Pneumonia Lung Nodules CAD LV Diastolic Dysfunction HTN - continue medrol 40mg q8h - can likely taper further in AM if continues to improve - inhaled bronchodilators standing and PRN - O2 to keep SpO2 >90% - continue antibiotics - outpt f/u of CT chest to ensure resolution - DVT prophylaxis
[2018-07-16] MEDS: ALBUTEROL SO4 0.083% IH SOL 2.5 MG/3 ML VIAL.NEB. NEB SCH (20:01)
[2018-07-16] MEDS: ATORVASTATIN CA 80 MG TABLET (FP) PO SCH (22:41)
[2018-07-16] MEDS: ALPRAZolam 0.25 MG TABLET PO PRN (22:41)
[2018-07-16] MEDS: DOCUSATE SODIUM 100 MG CAPSULE (FP) PO SCH (22:41)
[2018-07-16] MEDS: MONTELUKAST NA 10 MG TABLET PO SCH (22:41)
[2018-07-17] MEDS: methylPREDNISolone NA SUCC 40 MG/1 ML VIAL IVPB SCH ×3 (01:53→21:34)
[2018-07-17] MEDS: ALBUTEROL SO4 0.083% IH SOL 2.5 MG/3 ML VIAL.NEB. NEB PRN (02:49)
[2018-07-17] MEDS: SODIUM CHLORIDE NASAL SPRAY 44 ML BOTTLE NS SCH ×3 (06:49→21:37)
[2018-07-17] MEDS: ALBUTEROL SO4 0.083% IH SOL 2.5 MG/3 ML VIAL.NEB. NEB SCH ×4 (08:16→19:40)
[2018-07-17 08:25] LABS: BASO % 0.2 % (0-2.0); EOS % 0.1 % (0-4.5); HEMATOCRIT 33.1 % (32.4-45.2); HEMOGLOBIN 10.9 GM/dL (10.7-15.3); LYMPH % 3.5 % (8-40); MCH 29.7 pg (25.7-33.7); MCHC 32.8 g/dl (32.0-36.0); MEAN CELL VOLUME 90.4 fl (80-96); MEAN PLT VOLUME 6.9 fl (7.5-11.1); MONO % 2.6 % (3.8-10.2); NEUT % 93.6 % (42.8-82.8); PLATELET COUNT 270 K/MM3 (134-434); RBC 3.66 M/mm3 (3.60-5.2); WHITE BLOOD COUNT 13.7 K/mm3 (4.0-10.0)
--- NOTE | 2018-07-17 08:31 | PN ---
Progress Note, Physician Chief Complaint: said she had chest some wheezing and chest tightness yesterday some pedal edema today, s/p high doses steroids; is on low dose lasix, has h/o ARF, will change diet to low salt cardio eval - Current Medication List Current Medications: Active Medications Acetaminophen (Tylenol -) 650 mg PO Q6H PRN PRN Reason: FEVER Last Admin: 07/11/18 15:47 Dose: 650 mg Al Hydroxide/Mg Hydroxide (Mylanta Oral Suspension -) 30 ml PO Q6H PRN PRN Reason: DYSPEPSIA Albuterol Sulfate (Ventolin 0.083% Nebulizer Soln -) 1 amp NEB Q4H PRN PRN Reason: SHORT OF BREATH/WHEEZING Last Admin: 07/17/18 02:49 Dose: 1 amp Albuterol Sulfate (Ventolin 0.083% Nebulizer Soln -) 1 amp NEB RQID [facility] Last Admin: 07/17/18 08:16 Dose: 1 amp Alprazolam (Xanax -) 0.25 mg PO Q12H PRN PRN Reason: ANXIETY Last Admin: 07/16/18 22:41 Dose: 0.25 mg Aspirin (Asa -) 81 mg PO DAILY [facility] Last Admin: 07/16/18 09:45 Dose: 81 mg Atorvastatin Calcium (Lipitor -) 80 mg PO HS [facility] Last Admin: 07/16/18 22:41 Dose: 80 mg Azithromycin (Zithromax -) 250 mg PO DAILY [facility] Last Admin: 07/16/18 09:44 Dose: 250 mg Budesonide/Formoterol Fumarate (Symbicort 160/4.5mcg -) 2 puff IH BID [facility] Last Admin: 07/16/18 22:40 Dose: 2 puff Clopidogrel Bisulfate (Plavix -) 75 mg PO DAILY [facility] Last Admin: 07/16/18 09:45 Dose: 75 mg Docusate Sodium (Colace -) 300 mg PO HS [facility] Last Admin: 07/16/18 22:41 Dose: 300 mg Fluticasone Propionate (Flonase -) 1 spray NS BID [facility] Last Admin: 07/16/18 22:40 Dose: 1 spr Folic Acid (Folic Acid -) 1 mg PO DAILY [facility] Last Admin: 07/16/18 09:45 Dose: 1 mg Furosemide (Lasix -) 20 mg PO DAILY [facility] Last Admin: 12/22/18 09:44 Dose: 20 mg Guaifenesin (Robitussin Dm -) 10 ml PO Q6H PRN PRN Reason: COUGH Ceftriaxone Sodium 1 gm/ (Dextrose) 50 mls @ 100 mls/hr IVPB DAILY [facility]; Protocol Last Admin: 07/16/18 09:46 Dose: 100 mls/hr Isosorbide Mononitrate (Imdur -) 30 mg PO BIDISMO [facility] Last Admin: 07/16/18 17:24 Dose: 30 mg Meclizine HCl (Antivert -) 25 mg PO Q6H PRN PRN Reason: VERTIGO Methylprednisolone Sodium Succinate (Solu-Medrol -) 40 mg IVPB Q12H [facility] Montelukast Sodium (Singulair -) 10 mg PO HS [facility] Last Admin: 07/16/18 22:41 Dose: 10 mg Mupirocin (Bactroban 2% Ointment -) 1 applic TP BID [facility] Last Admin: 07/16/18 22:33 Dose: Not Given Nitroglycerin (Nitrostat -) 0.4 mg SL Q5M PRN PRN Reason: FOR CHEST PAIN Pantoprazole Sodium (Protonix -) 40 mg PO DAILY [facility] Last Admin: 07/16/18 09:44 Dose: 40 mg Potassium Chloride (K-Dur -) 10 meq PO BID [facility] Last Admin: 07/16/18 22:41 Dose: 10 meq Ranitidine HCl (Zantac -) 150 mg PO DAILY [facility] Last Admin: 07/16/18 09:45 Dose: 150 mg Ranolazine (Ranexa -) 500 mg PO BID [facility] Last Admin: 07/16/18 22:41 Dose: 500 mg Sodium Chloride ([place] Nasal [place] -) 2 spray NS TID [facility] Last Admin: 07/17/18 06:49 Dose: 2 spray Tiotropium [place] (Spiriva Respimat) 2 puff IH DAILY [facility] Last Admin: 07/16/18 09:47 Dose: 2 puff Valacyclovir HCl (Valtrex -) 500 mg PO BID [facility] Last Admin: 07/16/18 22:42 Dose: 500 mg Verapamil HCl (Calan Sr -) 240 mg PO BID [facility] Last Admin: 07/16/18 22:42 Dose: 240 mg - Objective Vital Signs: Vital Signs Temperature 98.4 F 07/16/18 22:00 Pulse Rate 91 H 07/16/18 22:00 Respiratory Rate 20 07/16/18 22:00 Blood Pressure 148/60 07/16/18 22:00 O2 Sat by Pulse Oximetry (%) 99 07/16/18 21:00 Constitutional: Yes: No Distress, Calm Eyes: Yes: Conjunctiva Clear HENT: Yes: Atraumatic Neck: Yes: Supple Cardiovascular: Yes: Regular Rate and Rhythm Respiratory: Yes: Wheezes (less) Gastrointestinal: Yes: Soft. No: Distention Genitourinary: No: CVA Tenderness - Left, CVA Tenderness - Right, Hematuria Musculoskeletal: No: Joint Stiffness, Joint Swelling Extremities: No: Cold, Cool, Cyanosis Edema: No Integumentary: No: Rash, Venous Stasis Changes Neurological: Yes: WNL, Alert, Oriented ...Motor Strength: WNL Psychiatric: Yes: WNL, Alert, Oriented. No: Agitated, Suicidal Ideation - ....Imaging Other: Report Reviewed Assessment/Plan The patient is a 63-year-old female with a past medical history significant for CAD, HTN, SC s/p angioplasty, COPD, diastolic CHF, PVD and mesenteric ischemia s /p SMA bypass (2011) h/o noncompliance with outpt consults (pt said she has high copays and deductibles) admitted with acute COPD exac and PNA taper IV steroids; IV antibiotics O2, nebs pulmonary f/u cardiology eval h/o ASHD< chest tightness falls DVT PFX d/w pt and staff
[2018-07-17 08:59] LABS: ALBUMIN 2.7 g/dl (3.4-5.0); ALK PHOS 53 U/L (45-117); ANION GAP 8 MMOL/L (8-16); BILIRUBIN,TOTAL 0.4 mg/dL (0.2-1); BLOOD UREA NITROGEN 22 mg/dL (7-18); CALCIUM 8.1 mg/dL (8.5-10.1); CHLORIDE 98 mmol/L (98-107); CO2 31 mmol/L (21-32); CREATININE 0.6 mg/dL (0.55-1.3); GLUCOSE,RANDOM 139 mg/dL (74-106); POTASSIUM 4.8 mmol/L (3.5-5.1); SGOT/AST 12 U/L (15-37); SGPT/ALT 36 U/L (13-61); SODIUM 137 mmol/L (136-145)
[2018-07-17] MEDS ORDERED: cefTRIAXone SODIUM 1 GM VIAL ONE (10:23)
[2018-07-17] MEDS ORDERED: PT OWN MED DRAWER 7, Y5N ONE ×3 (10:23→21:16)
[2018-07-17] MEDS ORDERED: DEXTROSE 5%-WATER - 50 ML IVPB ONE (10:23)
[2018-07-17] MEDS: FOLIC ACID 1 MG TABLET (FP) PO SCH (10:24)
[2018-07-17] MEDS: RANITIDINE HCL 150 MG TABLET (FP) PO SCH (10:24)
[2018-07-17] MEDS: AZITHROMYCIN 250 MG TABLET PO SCH (10:24)
[2018-07-17] MEDS: PANTOPRAZOLE 40 MG TABLET (FP) PO SCH (10:24)
[2018-07-17] MEDS: FUROSEMIDE 20 MG TABLET (FP) PO SCH (10:24)
[2018-07-17] MEDS: ASPIRIN 81 MG CHEWABLE TABLETS PO SCH (10:24)
[2018-07-17] MEDS: ISOSORBIDE MONONITRATE 30 MG TAB.SR.24H (FP) PO SCH ×2 (10:24→17:28)
[2018-07-17] MEDS: CLOPIDOGREL BISULFATE 75 MG TABLET (FP) PO SCH (10:24)
[2018-07-17] MEDS: POTASSIUM CHLORIDE TABS 10 MEQ TABLET.ER (FP) PO SCH ×2 (10:24→21:36)
[2018-07-17] MEDS: CEFTRIAXONE 1 GM in DEXTROSE 5%-WATER - 50 ML IVPB SCH (10:25)
[2018-07-17] MEDS: MUPIROCIN 2% TOPICAL OINTMENT 22 GM TUBE TP SCH (10:25)
[2018-07-17] MEDS: BUDESONIDE/FORMETEROL FUMARATE 160/4.5 mcg INHALER IH SCH ×2 (10:26→21:35)
[2018-07-17] MEDS: FLUTICASONE PROP 0.05% 16 GM NASAL SPRAY NS SCH ×2 (10:26→21:35)
[2018-07-17] MEDS: valACYclovir HCL 500 MG TABLET (FP) PO SCH ×2 (10:26→21:34)
[2018-07-17] MEDS: TIOTROPIUM BROMIDE 2.5 MCG (SPIRIVA) RESPIMAT INHALER IH SCH (10:26)
[2018-07-17] MEDS: VERAPAMIL HCL 240 MG E.R. TABLET (FP) PO SCH ×2 (10:26→21:35)
[2018-07-17] MEDS: RANOLAZINE E.R. 500 MG TABLET (FP) PO SCH ×2 (10:29→21:36)
[2018-07-17] MEDS ORDERED: FUROSEMIDE 40 MG/4 ML INJECTABLE VIAL IVPUSH ONE (11:34)
--- NOTE | 2018-07-17 11:34 | PN ---
Progress Note (short form) - Note Progress Note: PULMONARY Had bad night. Episode of shortness of breath, chest tightness. Reports increase in leg swelling. Vital Signs Period Temp Pulse Resp BP Sys/Mann Pulse Ox Last 24 Hr 97.9 F-98.5 F 78-91 20-22 132-148/60-61 99 Gen: more tachypneic Heart: RRR Lung: worse air entry, scattered rhonchi, wheezes Abd: soft, nontender Ext: + edema CBC, BMP 07/17/18 07:00 07/17/18 07:00 Active Medications Acetaminophen (Tylenol -) 650 mg PO Q6H PRN PRN Reason: FEVER Last Admin: 07/11/18 15:47 Dose: 650 mg Al Hydroxide/Mg Hydroxide (Mylanta Oral Suspension -) 30 ml PO Q6H PRN PRN Reason: DYSPEPSIA Albuterol Sulfate (Ventolin 0.083% Nebulizer Soln -) 1 amp NEB Q4H PRN PRN Reason: SHORT OF BREATH/WHEEZING Last Admin: 07/17/18 02:49 Dose: 1 amp Albuterol Sulfate (Ventolin 0.083% Nebulizer Soln -) 1 amp NEB RQID [facility] Last Admin: 07/17/18 08:16 Dose: 1 amp Alprazolam (Xanax -) 0.25 mg PO Q12H PRN PRN Reason: ANXIETY Last Admin: 07/16/18 22:41 Dose: 0.25 mg Aspirin (Asa -) 81 mg PO DAILY [facility] Last Admin: 07/17/18 10:24 Dose: 81 mg Atorvastatin Calcium (Lipitor -) 80 mg PO [facility] Last Admin: 07/16/18 22:41 Dose: 80 mg Azithromycin (Zithromax -) 250 mg PO DAILY [facility] Last Admin: 07/17/18 10:24 Dose: 250 mg Budesonide/Formoterol Fumarate (Symbicort 160/4.5mcg -) 2 puff IH BID [facility] Last Admin: 07/17/18 10:26 Dose: 2 puff Clopidogrel Bisulfate (Plavix -) 75 mg PO DAILY [facility] Last Admin: 07/17/18 10:24 Dose: 75 mg Docusate Sodium (Colace -) 300 mg PO [facility] Last Admin: 07/16/18 22:41 Dose: 300 mg Fluticasone Propionate (Flonase -) 1 spray NS BID [facility] Last Admin: 07/17/18 10:26 Dose: 1 spr Folic Acid (Folic Acid -) 1 mg PO DAILY [facility] Last Admin: 07/17/18 10:24 Dose: 1 mg Furosemide (Lasix -) 20 mg PO DAILY [facility] Last Admin: 07/17/18 10:24 Dose: 20 mg Guaifenesin (Robitussin Dm -) 10 ml PO Q6H PRN PRN Reason: COUGH Ceftriaxone Sodium 1 gm/ (Dextrose) 50 mls @ 100 mls/hr IVPB DAILY [facility]; Protocol Last Admin: 07/17/18 10:25 Dose: 100 mls/hr Isosorbide Mononitrate (Imdur -) 30 mg PO BIDISMO [facility] Last Admin: 07/17/18 10:24 Dose: 30 mg Meclizine HCl (Antivert -) 25 mg PO Q6H PRN PRN Reason: VERTIGO Methylprednisolone Sodium Succinate (Solu-Medrol -) 40 mg IVPB Q12H [facility] Last Admin: 07/17/18 10:25 Dose: 40 mg Montelukast Sodium (Singulair -) 10 mg PO HS [facility] Last Admin: 07/16/18 22:41 Dose: 10 mg Nitroglycerin (Nitrostat -) 0.4 mg SL Q5M PRN PRN Reason: FOR CHEST PAIN Pantoprazole Sodium (Protonix -) 40 mg PO DAILY [facility] Last Admin: 07/17/18 10:24 Dose: 40 mg Potassium Chloride (K-Dur -) 10 meq PO BID [facility] Last Admin: 07/17/18 10:24 Dose: 10 meq Ranitidine HCl (Zantac -) 150 mg PO DAILY [facility] Last Admin: 07/17/18 10:24 Dose: 150 mg Ranolazine (Ranexa -) 500 mg PO BID [facility] Last Admin: 07/17/18 10:29 Dose: 500 mg Sodium Chloride ([place] Nasal [place] -) 2 spray NS TID [facility] Last Admin: 07/17/18 06:49 Dose: 2 spray Tiotropium [place] (Spiriva Respimat) 2 puff IH DAILY [facility] Last Admin: 07/17/18 10:26 Dose: 2 puff Valacyclovir HCl (Valtrex -) 500 mg PO BID [facility] Last Admin: 07/17/18 10:26 Dose: 500 mg Verapamil HCl (Calan Sr -) 240 mg PO BID [facility] Last Admin: 07/17/18 10:26 Dose: 240 mg A/P Acute COPD Exacerbation Pneumonia Lung Nodules CAD LV Diastolic Dysfunction HTN - continue medrol 40mg q12h - will repeat CXR - will give dose of IV lasix - inhaled bronchodilators standing and PRN - O2 to keep SpO2 >90% - continue antibiotics - outpt f/u of CT chest to ensure resolution - DVT prophylaxis
--- NOTE | 2018-07-17 14:14 | CON.CARD ---
Consult Consult Specialty:: Cardiology Referred by:: Casi Hawley MD Reason for Consultation:: AE COPD - History of Present Illness Chief Complaint: Dyspnea History of Present Illness: Patient is a 65 year old female with underlying history of CAD, MS, diastolic LV dysfunction with chronic class I NYHA classification heart failure, carotid artery disease s/p right CEA, mesenteric ischemia, post bypass surgery, peripheral vascular disease, HTN, hypercholesterolemia, advanced COPD who presents with progressive SOB at rest and on exertion with cough productive yellow sputum and had self treated with 2 neb treatments without success, self started oral prednisone and oral abx course. She denies fever or chills. She denies palpitations but complains of chest tightness with cough. She denies nausea, vomiting, diarrhea or abdominal pain. She states that she had bilateral lower ext edema with pain on day of admission. Receiving nebs and IV steroids with relief although symptoms recur once weaned to Medrol 40 IV bid. - History Source History Provided By: Patient Limitations to Obtaining History: No Limitations - Past Medical History Cardio/Vascular: Yes: CAD, HTN, MS (2011 transferred to [facility], no stents, told of ? Prinzmetal angina? ), Other (left ventricular end diastolic dysfunction, peripheral and carotid vascular disease ) Pulmonary: Yes: Asthma, COPD Gastrointestinal: Yes: Diverticulosis, Gastritis, GERD (with short segment Barretts), Hiatal Hernia, Other (Mesenteric ischemia treated with SMA bypass 2012. Incisional hernia.) Renal/: Yes: Renal Failure (required dialysis for several weeks following contrast induced renal fauilure after MS in 2011) Psych: Yes: Anxiety, Depression Endocrine: Yes: Other (Euthyroid goiter) - Past Surgical History Past Surgical History: Yes: Carotid Endarterectomy, Cholecystectomy, Colonoscopy , Upper Endoscopy - Alcohol/Substance Use Hx Alcohol Use: No History of Substance Use: reports: None - Smoking History Smoking history: Former smoker Have you smoked in the past 12 months: No Aproximately how many cigarettes per day: 10 If you are a former smoker, when did you quit?: 2013 - Social History Usual Living Arrangement: With Spouse ADL: Independent 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 History of Recent Travel: No Home Medications - Allergies Allergies/Adverse Reactions: Allergies Allergy/AdvReac Type Severity Reaction Status Date / Time No Known Drug Allergies Allergy Verified 04/29/18 15:06 - Home Medications Home Medications: Ambulatory Orders Albuterol 2.5/Ipratropium 0.5 [Duoneb -] 1 neb NEB Q4H PRN #0 vial 12/27/12 Atorvastatin Calcium [Lipitor] 80 mg PO HS #0 tablet 12/27/12 Clopidogrel Bisulfate [Plavix -] 75 mg PO DAILY #0 tablet 12/27/12 Folic Acid - 1 mg PO DAILY #0 tablet 12/27/12 Isosorbide Mononitrate [Imdur] 30 mg PO BID #0 tab.sr.24h 12/27/12 Montelukast Na [Singulair -] 10 mg PO HS #0 tablet 12/27/12 Ranitidine [Zantac -] 150 mg PO DAILY #0 tablet 12/27/12 Tiotropium [place] [Spiriva] 1 inh IH DAILY #0 inh 12/27/12 Fluticasone Prop 0.05% Nasal [Flonase -] 1 - 2 spray NS BID #1 spray.pump Mag Hydrox/Al Hydrox/Simeth [Mylanta Oral Suspension -] 30 ml PO Q6H PRN #0 cup 04/16/15 Acetaminophen [Tylenol .Regular Strength -] 650 mg PO Q6H PRN #0 tablet Docusate Sodium [Colace -] 300 mg PO HS capsule 08/16/16 Nitroglycerin 0.4 mg SL AM PRN #90 tab.subl 08/16/16 Pantoprazole Sodium [Protonix -] 40 mg PO DAILY #90 tablet.ec 08/16/16 Ranolazine [Ranexa -] 500 mg PO BID #180 tab 08/16/16 Verapamil HCl ER [Calan Sr -] 240 mg PO BID #180 tablet.er 08/16/16 Potassium Chloride [K-Dur -] 10 meq PO BID 02/15/18 Budesonide/Formeterol Fumarate [SYMBICORT 160/4.5mcg -] 2 puff IH BID #3 inhaler 03/03/18 Guaifenesin Dm [Robitussin Dm -] 10 ml PO Q6H PRN cup 03/03/18 Sodium Chloride Nasal [place] [[place] Nasal [place] -] 2 spray NS TID spray Mupirocin Ointment [Bactroban 2% Ointment -] 1 applic TP BID #1 tube 03/13/18 Clotrimazole [Antifungal] 30 gm TP BID #1 cream..g. 03/20/18 Alprazolam [Xanax] 0 mg PO PRN PRN 04/29/18 Albuterol 0.083% Nebulizer [place] [Ventolin 0.083% Nebulizer Soln -] 1 amp NEB Q4H PRN amp 05/08/18 Aspirin [ASA -] 81 mg PO DAILY tab.chew 05/08/18 Azithromycin [Zithromax 250mg Tablets -] 250 mg PO DAILY #30 tablet 05/08/18 Furosemide [Lasix -] 20 mg PO BID #60 tablet 05/08/18 Meclizine HCl [Antivert -] 25 mg PO Q6H PRN #90 tablet 05/08/18 Nebivolol [Bystolic -] 5 mg PO DAILY #30 tab 05/08/18 Valsartan [Diovan] 40 mg PO DAILY #30 tablet 05/08/18 predniSONE [Deltasone -] 10 mg PO DAILY #30 tablet 05/08/18 Family Disease History - Family Disease History Family Disease History: Heart Disease: Father ( 73 of melanoma), Mother ( 73 of COPD), Brother ( of throat cancer), CA: Father, Brother, Respiratory: Mother Review of Systems - Review of Systems Respiratory: reports: Cough, Exercise Intolerance, SOB, SOB on Exertion, Wheezing Vital Signs: Vital Signs Temperature 97.9 F 07/17/18 09:00 Pulse Rate 108 H 07/17/18 12:28 Respiratory Rate 20 07/17/18 09:00 Blood Pressure 132/60 07/17/18 09:00 O2 Sat by Pulse Oximetry (%) 96 07/17/18 12:28 Constitutional: Yes: No Distress, Calm Neck: Yes: Supple Respiratory: Yes: Regular, Diminished, On Nasal O2 Gastrointestinal: Yes: Normal Bowel Sounds, Soft, Abdomen, Obese Cardiovascular: Yes: Regular Rate and Rhythm JVD: No Carotid Bruit: No Heart Sounds: Yes: S1, S2 Murmur: Yes: Systolic Murmur, Grade 1 Edema: No - Other Data Labs, Other Data: CBC, BMP 07/17/18 07:00 07/17/18 07:00 NSR @ 82 nonspec T wave changes Ejection Fraction %: LVEF > or = 40 % Imaging - Results Chest X-ray: Report Reviewed (NAD) Cat Scan: Report Reviewed (COPD, RML PNA) Problem List - Problems (1) COPD exacerbation Code(s): J44.1 - CHRONIC OBSTRUCTIVE PULMONARY DISEASE W (ACUTE) EXACERBATION (2) Shortness of breath Code(s): R06.02 - SHORTNESS OF BREATH (3) Coronary artery disease Code(s): I25.10 - ATHSCL HEART DISEASE OF [place] CORONARY ARTERY W/O ANG PCTRS Qualifiers: Coronary Disease-Associated Artery/Lesion type: [place] artery [place] vs. 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 Acute exacerbation of COPD and PNA improving 2. Diastolic dysfunction with resolved failure 3. CAD post MS PCI 2011, angina pectoris 4. Systolic murmur, AV sclerosis rule out stenosis 5. HTN/HCVD 6. Hyperlipidemia 7. Bilateral carotid artery disease post right CEA 8. Mesenteric ischemia post SMA bypass 2011 9. PAD post intervention w/o sig stenosis 10. Hyperkalemia 11. H/o left frontal stroke 12. H/o Renal Failure (required temporary dialysis 2011) PLAN: 1. Continue Calan SR 240 bid with caution 2. Continue Bystolic 5 qd with caution 3. Continue Imdur 30 bid and Ranexa 500 bid 4. Previously on Diovan 40 qd since d/miranda 5. Continue Lipitor 80 qhs 6. Continue home oral Lasix dose 20 po qd 7. Continue Plavix 75 qd and ASA 81 qd per neuro recs 8. Follow up with Dr. 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 BD, empiric abx, maintain medrol 40 q12 with GI protection, Singulair, O2 to keep Spo2 >90%, DVT prophylaxis 10. Thank you for consultative opportunity
[2018-07-17 14:44] LABS: ANISOCYTOSIS 0; MACROCYTOSIS 0; PLATELET ESTIMATE NORMAL
[2018-07-17] MEDS: ACETAMINOPHEN 325 MG TABLET (FP) PO PRN (15:22)
[2018-07-17] MEDS: MONTELUKAST NA 10 MG TABLET PO SCH (21:35)
[2018-07-17] MEDS: DOCUSATE SODIUM 100 MG CAPSULE (FP) PO SCH (21:35)
[2018-07-17] MEDS: ATORVASTATIN CA 80 MG TABLET (FP) PO SCH (21:36)
[2018-07-17] MEDS: ALPRAZolam 0.25 MG TABLET PO PRN (21:36)
[2018-07-18] MEDS: ALBUTEROL SO4 0.083% IH SOL 2.5 MG/3 ML VIAL.NEB. NEB PRN (05:30)
[2018-07-18] MEDS: SODIUM CHLORIDE NASAL SPRAY 44 ML BOTTLE NS SCH ×3 (06:41→21:05)
[2018-07-18] MEDS: ALBUTEROL SO4 0.083% IH SOL 2.5 MG/3 ML VIAL.NEB. NEB SCH ×4 (07:59→21:20)
[2018-07-18] MEDS: methylPREDNISolone NA SUCC 40 MG/1 ML VIAL IVPB SCH ×3 (08:43→21:04)
[2018-07-18] MEDS ORDERED: DEXTROSE 5%-WATER - 50 ML IVPB ONE (10:35)
[2018-07-18] MEDS ORDERED: cefTRIAXone SODIUM 1 GM VIAL ONE (10:35)
[2018-07-18] MEDS: valACYclovir HCL 500 MG TABLET (FP) PO SCH ×2 (10:43→21:05)
[2018-07-18] MEDS: PANTOPRAZOLE 40 MG TABLET (FP) PO SCH (10:43)
[2018-07-18] MEDS: ASPIRIN 81 MG CHEWABLE TABLETS PO SCH (10:43)
[2018-07-18] MEDS: FUROSEMIDE 20 MG TABLET (FP) PO SCH (10:44)
[2018-07-18] MEDS: CLOPIDOGREL BISULFATE 75 MG TABLET (FP) PO SCH (10:44)
[2018-07-18] MEDS: POTASSIUM CHLORIDE TABS 10 MEQ TABLET.ER (FP) PO SCH ×2 (10:44→21:04)
[2018-07-18] MEDS: RANITIDINE HCL 150 MG TABLET (FP) PO SCH (10:44)
[2018-07-18] MEDS: AZITHROMYCIN 250 MG TABLET PO SCH (10:44)
[2018-07-18] MEDS: FOLIC ACID 1 MG TABLET (FP) PO SCH (10:44)
[2018-07-18] MEDS: ISOSORBIDE MONONITRATE 30 MG TAB.SR.24H (FP) PO SCH ×2 (10:44→17:30)
[2018-07-18] MEDS: RANOLAZINE E.R. 500 MG TABLET (FP) PO SCH ×2 (10:44→21:04)
[2018-07-18] MEDS: VERAPAMIL HCL 240 MG E.R. TABLET (FP) PO SCH ×2 (10:45→21:05)
[2018-07-18] MEDS: CEFTRIAXONE 1 GM in DEXTROSE 5%-WATER - 50 ML IVPB SCH (10:45)
[2018-07-18] MEDS: BUDESONIDE/FORMETEROL FUMARATE 160/4.5 mcg INHALER IH SCH ×2 (10:46→21:04)
[2018-07-18] MEDS: FLUTICASONE PROP 0.05% 16 GM NASAL SPRAY NS SCH ×2 (10:46→21:04)
[2018-07-18] MEDS: TIOTROPIUM BROMIDE 2.5 MCG (SPIRIVA) RESPIMAT INHALER IH SCH (10:46)
[2018-07-18] MEDS: ACETAMINOPHEN 325 MG TABLET (FP) PO PRN (10:47)
--- NOTE | 2018-07-18 12:21 | PN ---
Progress Note (short form) - Note Progress Note: Still with cough and wheezing. No chest tightness. Slight decrease in leg swelling. Intake & Output 07/15/18 07/16/18 07/17/18 07/18/18 23:59 23:59 23:59 23:59 Intake Total 1400 1360 1080 Balance 1400 1360 1080 Last Vital Signs Temp Pulse Resp BP Pulse Ox 98.1 F 74 20 134/56 L 96 07/17/18 21:32 07/18/18 07:38 07/18/18 07:38 07/18/18 07:38 07/17/18 21:00 Active Medications Acetaminophen (Tylenol -) 650 mg PO Q6H PRN PRN Reason: FEVER Last Admin: 07/18/18 10:47 Dose: 650 mg Al Hydroxide/Mg Hydroxide (Mylanta Oral Suspension -) 30 ml PO Q6H PRN PRN Reason: DYSPEPSIA Albuterol Sulfate (Ventolin 0.083% Nebulizer Soln -) 1 amp NEB Q4H PRN PRN Reason: SHORT OF BREATH/WHEEZING Last Admin: 07/18/18 05:30 Dose: 1 amp Albuterol Sulfate (Ventolin 0.083% Nebulizer Soln -) 1 amp NEB RQID [facility] Last Admin: 07/18/18 11:21 Dose: 1 amp Alprazolam (Xanax -) 0.25 mg PO Q12H PRN PRN Reason: ANXIETY Last Admin: 07/17/18 21:36 Dose: 0.25 mg Aspirin (Asa -) 81 mg PO DAILY [facility] Last Admin: 07/18/18 10:43 Dose: 81 mg Atorvastatin Calcium (Lipitor -) 80 mg PO HS [facility] Last Admin: 07/17/18 21:36 Dose: 80 mg Azithromycin (Zithromax -) 250 mg PO DAILY [facility] Last Admin: 07/18/18 10:44 Dose: 250 mg Budesonide/Formoterol Fumarate (Symbicort 160/4.5mcg -) 2 puff IH BID [facility] Last Admin: 07/18/18 10:46 Dose: 2 puff Clopidogrel Bisulfate (Plavix -) 75 mg PO DAILY [facility] Last Admin: 07/18/18 10:44 Dose: 75 mg Docusate Sodium (Colace -) 300 mg PO HS [facility] Last Admin: 07/17/18 21:35 Dose: 300 mg Fluticasone Propionate (Flonase -) 1 spray NS BID [facility] Last Admin: 07/18/18 10:46 Dose: 1 spr Folic Acid (Folic Acid -) 1 mg PO DAILY [facility] Last Admin: 07/18/18 10:44 Dose: 1 mg Furosemide (Lasix -) 20 mg PO DAILY [facility] Last Admin: 07/18/18 10:44 Dose: 20 mg Guaifenesin (Robitussin Dm -) 10 ml PO Q6H PRN PRN Reason: COUGH Ceftriaxone Sodium 1 gm/ (Dextrose) 50 mls @ 100 mls/hr IVPB DAILY [facility]; Protocol Last Admin: 07/18/18 10:45 Dose: 100 mls/hr Isosorbide Mononitrate (Imdur -) 30 mg PO BIDISMO [facility] Last Admin: 07/18/18 10:44 Dose: 30 mg Meclizine HCl (Antivert -) 25 mg PO Q6H PRN PRN Reason: VERTIGO Methylprednisolone Sodium Succinate (Solu-Medrol -) 40 mg IVPB Q12H [facility] Last Admin: 07/18/18 08:43 Dose: 40 mg Montelukast Sodium (Singulair -) 10 mg PO HS [facility] Last Admin: 07/17/18 21:35 Dose: 10 mg Nitroglycerin (Nitrostat -) 0.4 mg SL Q5M PRN PRN Reason: FOR CHEST PAIN Pantoprazole Sodium (Protonix -) 40 mg PO DAILY [facility] Last Admin: 07/18/18 10:43 Dose: 40 mg Potassium Chloride (K-Dur -) 10 meq PO BID [facility] Last Admin: 07/18/18 10:44 Dose: 10 meq Ranitidine HCl (Zantac -) 150 mg PO DAILY [facility] Last Admin: 07/18/18 10:44 Dose: 150 mg Ranolazine (Ranexa -) 500 mg PO BID [facility] Last Admin: 07/18/18 10:44 Dose: 500 mg Sodium Chloride ([place] Nasal [place] -) 2 spray NS TID [facility] Last Admin: 07/18/18 06:41 Dose: 2 spray Tiotropium [place] (Spiriva Respimat) 2 puff IH DAILY [facility] Last Admin: 07/18/18 10:46 Dose: 2 puff Valacyclovir HCl (Valtrex -) 500 mg PO BID [facility] Last Admin: 07/18/18 10:43 Dose: 500 mg Verapamil HCl (Calan Sr -) 240 mg PO BID [facility] Last Admin: 07/18/18 10:45 Dose: 240 mg Gen: more tachypneic Heart: RRR Lung: Bilateral scattered rhonchi, wheezes Abd: soft, nontender Ext: + edema Laboratory Results - last 24 hr 07/17/18 07:00 Neutrophils % (Manual) 89.7 H Band Neutrophils % 0.0 Lymphocytes % (Manual) 6.2 L D Monocytes % (Manual) 3 L Eosinophils % (Manual) 0.0 Basophils % (Manual) 1.0 D Myelocytes % (Man) 0 D Promyelocytes % (Man) 0 Blast Cells % (Manual) 0 Metamyelocytes 0 Hypochromia 0 Platelet Estimate Normal Polychromasia 0 Poikilocytosis 0 Anisocytosis 0 Microcytosis 0 Macrocytosis 0 A/P Acute COPD Exacerbation Pneumonia Lung Nodules CAD LV Diastolic Dysfunction HTN - continue medrol 40mg q12h - inhaled bronchodilators standing and PRN - O2 to keep SpO2 >90% - continue antibiotics - outpt f/u of CT chest to ensure resolution - DVT prophylaxis Dr Bueno
--- NOTE | 2018-07-18 14:33 | PN ---
Progress Note, Physician Chief Complaint: tight chest coughing wheezing, on solumedrol bid will increase it to qid; some pedal edema on lasixc 20 mg/d f/u with cardio - Current Medication List Current Medications: Active Medications Acetaminophen (Tylenol -) 650 mg PO Q6H PRN PRN Reason: FEVER Last Admin: 07/18/18 10:47 Dose: 650 mg Al Hydroxide/Mg Hydroxide (Mylanta Oral Suspension -) 30 ml PO Q6H PRN PRN Reason: DYSPEPSIA Albuterol Sulfate (Ventolin 0.083% Nebulizer Soln -) 1 amp NEB Q4H PRN PRN Reason: SHORT OF BREATH/WHEEZING Last Admin: 07/18/18 05:30 Dose: 1 amp Albuterol Sulfate (Ventolin 0.083% Nebulizer Soln -) 1 amp NEB RQID [facility] Last Admin: 07/18/18 11:21 Dose: 1 amp Alprazolam (Xanax -) 0.25 mg PO Q12H PRN PRN Reason: ANXIETY Last Admin: 07/17/18 21:36 Dose: 0.25 mg Aspirin (Asa -) 81 mg PO DAILY [facility] Last Admin: 07/18/18 10:43 Dose: 81 mg Atorvastatin Calcium (Lipitor -) 80 mg PO HS [facility] Last Admin: 07/17/18 21:36 Dose: 80 mg Azithromycin (Zithromax -) 250 mg PO DAILY [facility] Last Admin: 07/18/18 10:44 Dose: 250 mg Budesonide/Formoterol Fumarate (Symbicort 160/4.5mcg -) 2 puff IH BID [facility] Last Admin: 07/18/18 10:46 Dose: 2 puff Clopidogrel Bisulfate (Plavix -) 75 mg PO DAILY [facility] Last Admin: 07/18/18 10:44 Dose: 75 mg Docusate Sodium (Colace -) 300 mg PO HS [facility] Last Admin: 07/17/18 21:35 Dose: 300 mg Fluticasone Propionate (Flonase -) 1 spray NS BID [facility] Last Admin: 07/18/18 10:46 Dose: 1 spr Folic Acid (Folic Acid -) 1 mg PO DAILY [facility] Last Admin: 07/18/18 10:44 Dose: 1 mg Furosemide (Lasix -) 20 mg PO DAILY [facility] Last Admin: 07/18/18 10:44 Dose: 20 mg Guaifenesin (Robitussin Dm -) 10 ml PO Q6H PRN PRN Reason: COUGH Ceftriaxone Sodium 1 gm/ (Dextrose) 50 mls @ 100 mls/hr IVPB DAILY [facility]; Protocol Last Admin: 07/18/18 10:45 Dose: 100 mls/hr Isosorbide Mononitrate (Imdur -) 30 mg PO BIDISMO [facility] Last Admin: 07/18/18 10:44 Dose: 30 mg Meclizine HCl (Antivert -) 25 mg PO Q6H PRN PRN Reason: VERTIGO Methylprednisolone Sodium Succinate (Solu-Medrol -) 40 mg IVPB Q12H [facility] Last Admin: 07/18/18 08:43 Dose: 40 mg Montelukast Sodium (Singulair -) 10 mg PO HS [facility] Last Admin: 07/17/18 21:35 Dose: 10 mg Nitroglycerin (Nitrostat -) 0.4 mg SL Q5M PRN PRN Reason: FOR CHEST PAIN Pantoprazole Sodium (Protonix -) 40 mg PO DAILY [facility] Last Admin: 07/18/18 10:43 Dose: 40 mg Potassium Chloride (K-Dur -) 10 meq PO BID [facility] Last Admin: 07/18/18 10:44 Dose: 10 meq Ranitidine HCl (Zantac -) 150 mg PO DAILY [facility] Last Admin: 07/18/18 10:44 Dose: 150 mg Ranolazine (Ranexa -) 500 mg PO BID [facility] Last Admin: 07/18/18 10:44 Dose: 500 mg Sodium Chloride ([place] Nasal [place] -) 2 spray NS TID [facility] Last Admin: 07/18/18 06:41 Dose: 2 spray Tiotropium [place] (Spiriva Respimat) 2 puff IH DAILY [facility] Last Admin: 07/18/18 10:46 Dose: 2 puff Valacyclovir HCl (Valtrex -) 500 mg PO BID [facility] Last Admin: 07/18/18 10:43 Dose: 500 mg Verapamil HCl (Calan Sr -) 240 mg PO BID [facility] Last Admin: 07/18/18 10:45 Dose: 240 mg - Objective Vital Signs: Vital Signs Temperature 98.1 F 07/17/18 21:32 Pulse Rate 74 07/18/18 07:38 Respiratory Rate 20 07/18/18 07:38 Blood Pressure 134/56 L 12/24/18 07:38 O2 Sat by Pulse Oximetry (%) 96 07/17/18 21:00 Constitutional: Yes: Anxious Eyes: Yes: Conjunctiva Clear HENT: Yes: Atraumatic Neck: Yes: Supple Cardiovascular: Yes: Regular Rate and Rhythm Respiratory: Yes: Rales, Wheezes Gastrointestinal: Yes: Soft. No: Distention Genitourinary: No: CVA Tenderness - Left, CVA Tenderness - Right, Hematuria Musculoskeletal: No: Joint Stiffness, Joint Swelling Extremities: No: Cold, Cool, Cyanosis Edema: Yes (pedal mild bilat) Integumentary: No: Rash, Venous Stasis Changes Neurological: Yes: WNL, Alert, Oriented ...Motor Strength: WNL Psychiatric: Yes: WNL, Alert, Oriented. No: Agitated, Suicidal Ideation Labs: CBC, BMP 07/17/18 07:00 07/17/18 07:00 - ....Imaging Other: Report Reviewed Assessment/Plan The patient is a 63-year-old female with a past medical history significant for CAD, HTN, MS s/p angioplasty, COPD, diastolic CHF, PVD and mesenteric ischemia s /p SMA bypass (2011) h/o noncompliance with outpt consults admitted with acute COPD exac and PNA increase IV steroids; lasix po O2, nebs pulmonary f/u cardiology f/u falls DVT PFX d/w pt and staff
--- NOTE | 2018-07-18 16:34 | PN ---
Progress Note, Physician History of Present Illness: SOB at rest and on exertion, cough productive yellow sputum and wheezing slowly improving. - Current Medication List Current Medications: Active Medications Acetaminophen (Tylenol -) 650 mg PO Q6H PRN PRN Reason: FEVER Last Admin: 07/18/18 10:47 Dose: 650 mg Al Hydroxide/Mg Hydroxide (Mylanta Oral Suspension -) 30 ml PO Q6H PRN PRN Reason: DYSPEPSIA Albuterol Sulfate (Ventolin 0.083% Nebulizer Soln -) 1 amp NEB Q4H PRN PRN Reason: SHORT OF BREATH/WHEEZING Last Admin: 07/18/18 05:30 Dose: 1 amp Albuterol Sulfate (Ventolin 0.083% Nebulizer Soln -) 1 amp NEB RQID [facility] Last Admin: 07/18/18 15:56 Dose: 1 amp Alprazolam (Xanax -) 0.25 mg PO Q12H PRN PRN Reason: ANXIETY Last Admin: 07/17/18 21:36 Dose: 0.25 mg Aspirin (Asa -) 81 mg PO DAILY [facility] Last Admin: 07/18/18 10:43 Dose: 81 mg Atorvastatin Calcium (Lipitor -) 80 mg PO HS [facility] Last Admin: 07/17/18 21:36 Dose: 80 mg Azithromycin (Zithromax -) 250 mg PO DAILY [facility] Last Admin: 07/18/18 10:44 Dose: 250 mg Budesonide/Formoterol Fumarate (Symbicort 160/4.5mcg -) 2 puff IH BID [facility] Last Admin: 07/18/18 10:46 Dose: 2 puff Clopidogrel Bisulfate (Plavix -) 75 mg PO DAILY [facility] Last Admin: 07/18/18 10:44 Dose: 75 mg Docusate Sodium (Colace -) 300 mg PO HS [facility] Last Admin: 07/17/18 21:35 Dose: 300 mg Fluticasone Propionate (Flonase -) 1 spray NS BID [facility] Last Admin: 07/18/18 10:46 Dose: 1 spr Folic Acid (Folic Acid -) 1 mg PO DAILY [facility] Last Admin: 07/18/18 10:44 Dose: 1 mg Furosemide (Lasix -) 20 mg PO DAILY [facility] Last Admin: 07/18/18 10:44 Dose: 20 mg Guaifenesin (Robitussin Dm -) 10 ml PO Q6H PRN PRN Reason: COUGH Ceftriaxone Sodium 1 gm/ (Dextrose) 50 mls @ 100 mls/hr IVPB DAILY [facility]; Protocol Last Admin: 07/18/18 10:45 Dose: 100 mls/hr Isosorbide Mononitrate (Imdur -) 30 mg PO BIDISMO [facility] Last Admin: 07/18/18 10:44 Dose: 30 mg Meclizine HCl (Antivert -) 25 mg PO Q6H PRN PRN Reason: VERTIGO Methylprednisolone Sodium Succinate (Solu-Medrol -) 40 mg IVPB Q6H-IV [facility] Montelukast Sodium (Singulair -) 10 mg PO HS [facility] Last Admin: 07/17/18 21:35 Dose: 10 mg Nitroglycerin (Nitrostat -) 0.4 mg SL Q5M PRN PRN Reason: FOR CHEST PAIN Pantoprazole Sodium (Protonix -) 40 mg PO DAILY [facility] Last Admin: 07/18/18 10:43 Dose: 40 mg Potassium Chloride (K-Dur -) 10 meq PO BID [facility] Last Admin: 07/18/18 10:44 Dose: 10 meq Ranitidine HCl (Zantac -) 150 mg PO DAILY [facility] Last Admin: 07/18/18 10:44 Dose: 150 mg Ranolazine (Ranexa -) 500 mg PO BID [facility] Last Admin: 07/18/18 10:44 Dose: 500 mg Sodium Chloride ([employer] [place] Nasal [place] -) 2 spray NS TID [facility] Last Admin: 07/18/18 06:41 Dose: 2 spray Tiotropium [place] (Spiriva Respimat) 2 puff IH DAILY [facility] Last Admin: 07/18/18 10:46 Dose: 2 puff Valacyclovir HCl (Valtrex -) 500 mg PO BID [facility] Last Admin: 07/18/18 10:43 Dose: 500 mg Verapamil HCl (Calan Sr -) 240 mg PO BID [facility] Last Admin: 07/18/18 10:45 Dose: 240 mg - Objective Vital Signs: Vital Signs Temperature 98.3 F 07/18/18 14:30 Pulse Rate 78 07/18/18 14:30 Respiratory Rate 20 07/18/18 14:30 Blood Pressure 136/56 L 07/18/18 14:30 O2 Sat by Pulse Oximetry (%) 96 12/23/18 21:00 Constitutional: Yes: No Distress, Calm Neck: Yes: Supple Cardiovascular: Yes: Regular Rate and Rhythm Respiratory: Yes: Regular, Cough, Diminished, On Nasal O2, SOB, Wheezes Gastrointestinal: Yes: Normal Bowel Sounds, Soft Edema: Yes Edema: LLE: 1+, RLE: 1+ Labs: CBC, BMP 07/17/18 07:00 07/17/18 07:00 Problem List - Problems (1) COPD exacerbation Code(s): J44.1 - CHRONIC OBSTRUCTIVE PULMONARY DISEASE W (ACUTE) EXACERBATION (2) Shortness of breath Code(s): R06.02 - SHORTNESS OF BREATH (3) Coronary artery disease Code(s): I25.10 - ATHSCL HEART DISEASE OF [place] CORONARY ARTERY W/O ANG PCTRS Qualifiers: Coronary Disease-Associated Artery/Lesion type: [place] artery [place] vs. 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 Acute exacerbation of COPD and PNA improving, pulm nodules 2. Diastolic dysfunction with resolved failure 3. CAD post [place] PCI 2011, angina pectoris 4. Systolic murmur, AV sclerosis rule out stenosis 5. HTN/HCVD 6. Hyperlipidemia 7. Bilateral carotid artery disease post right CEA 8. Mesenteric ischemia post SMA bypass 2011 9. PAD post intervention w/o sig stenosis 10. Hyperkalemia 11. H/o left frontal stroke 12. H/o Renal Failure (required temporary dialysis 2011) PLAN: 1. Continue Calan SR 240 bid with caution 2. Continue Bystolic 5 qd with caution 3. Continue Imdur 30 bid and Ranexa 500 bid 4. Previously on Diovan 40 qd since d/miranda 5. Continue Lipitor 80 qhs 6. Continue home oral Lasix dose 20 po qd 7. Continue Plavix 75 qd and ASA 81 qd per neuro recs 8. Follow up with Dr. 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 BD, empiric abx, maintain medrol 40 q12 with GI protection, Singulair, O2 to keep Spo2 >90%, DVT prophylaxis 10. Outpt f/u of CT chest to ensure resolution, declines compression therapy with SONNY wraps
[2018-07-18] MEDS: ATORVASTATIN CA 80 MG TABLET (FP) PO SCH (21:04)
[2018-07-18] MEDS: ALPRAZolam 0.25 MG TABLET PO PRN (21:04)
[2018-07-18] MEDS: DOCUSATE SODIUM 100 MG CAPSULE (FP) PO SCH (21:04)
[2018-07-18] MEDS: MONTELUKAST NA 10 MG TABLET PO SCH (21:04)
[2018-07-19] MEDS: methylPREDNISolone NA SUCC 40 MG/1 ML VIAL IVPB SCH ×3 (02:57→17:42)
[2018-07-19] MEDS: SODIUM CHLORIDE NASAL SPRAY 44 ML BOTTLE NS SCH ×3 (05:40→21:48)
[2018-07-19] MEDS: ALBUTEROL SO4 0.083% IH SOL 2.5 MG/3 ML VIAL.NEB. NEB PRN (05:43)
[2018-07-19 07:33] LABS: BASO % 0.1 % (0-2.0); HEMATOCRIT 31.8 % (32.4-45.2); HEMOGLOBIN 10.5 GM/dL (10.7-15.3); LYMPH % 3.9 % (8-40); MCH 29.8 pg (25.7-33.7); MEAN CELL VOLUME 90.2 fl (80-96); MEAN PLT VOLUME 6.7 fl (7.5-11.1); MONO % 2.7 % (3.8-10.2); NEUT % 93.3 % (42.8-82.8); PLATELET COUNT 236 K/MM3 (134-434); RBC 3.53 M/mm3 (3.60-5.2); WHITE BLOOD COUNT 13.2 K/mm3 (4.0-10.0)
[2018-07-19 07:48] LABS: ALBUMIN 2.9 g/dl (3.4-5.0); ALK PHOS 57 U/L (45-117); ANION GAP 7 MMOL/L (8-16); BILIRUBIN,TOTAL 0.3 mg/dL (0.2-1); BLOOD UREA NITROGEN 24 mg/dL (7-18); CHLORIDE 98 mmol/L (98-107); CO2 30 mmol/L (21-32); CREATININE 0.7 mg/dL (0.55-1.3); GLUCOSE,RANDOM 159 mg/dL (74-106); POTASSIUM 4.2 mmol/L (3.5-5.1); SGOT/AST 13 U/L (15-37); SGPT/ALT 38 U/L (13-61); SODIUM 135 mmol/L (136-145); TOT PROT 5.2 g/dl (6.4-8.2)
[2018-07-19] MEDS: ALBUTEROL SO4 0.083% IH SOL 2.5 MG/3 ML VIAL.NEB. NEB SCH ×4 (08:44→20:05)
[2018-07-19] MEDS ORDERED: PT OWN MED DRAWER 7, Y5N ONE ×2 (09:38→21:14)
[2018-07-19] MEDS ORDERED: cefTRIAXone SODIUM 1 GM VIAL ONE (09:39)
[2018-07-19] MEDS ORDERED: DEXTROSE 5%-WATER - 50 ML IVPB ONE (09:39)
[2018-07-19] MEDS: valACYclovir HCL 500 MG TABLET (FP) PO SCH ×2 (09:41→21:43)
[2018-07-19] MEDS: CEFTRIAXONE 1 GM in DEXTROSE 5%-WATER - 50 ML IVPB SCH (09:41)
[2018-07-19] MEDS: RANOLAZINE E.R. 500 MG TABLET (FP) PO SCH ×2 (09:41→21:43)
[2018-07-19] MEDS: ISOSORBIDE MONONITRATE 30 MG TAB.SR.24H (FP) PO SCH ×2 (09:41→17:42)
[2018-07-19] MEDS: ASPIRIN 81 MG CHEWABLE TABLETS PO SCH (09:42)
[2018-07-19] MEDS: CLOPIDOGREL BISULFATE 75 MG TABLET (FP) PO SCH (09:42)
[2018-07-19] MEDS: TIOTROPIUM BROMIDE 2.5 MCG (SPIRIVA) RESPIMAT INHALER IH SCH (09:42)
[2018-07-19] MEDS: RANITIDINE HCL 150 MG TABLET (FP) PO SCH (09:42)
[2018-07-19] MEDS: VERAPAMIL HCL 240 MG E.R. TABLET (FP) PO SCH ×2 (09:42→21:44)
[2018-07-19] MEDS: POTASSIUM CHLORIDE TABS 10 MEQ TABLET.ER (FP) PO SCH ×2 (09:42→21:44)
[2018-07-19] MEDS: AZITHROMYCIN 250 MG TABLET PO SCH (09:42)
[2018-07-19] MEDS: FUROSEMIDE 20 MG TABLET (FP) PO SCH (09:42)
[2018-07-19] MEDS: BUDESONIDE/FORMETEROL FUMARATE 160/4.5 mcg INHALER IH SCH ×2 (09:42→21:44)
[2018-07-19] MEDS: PANTOPRAZOLE 40 MG TABLET (FP) PO SCH (09:42)
[2018-07-19] MEDS: FOLIC ACID 1 MG TABLET (FP) PO SCH (09:42)
[2018-07-19] MEDS: FLUTICASONE PROP 0.05% 16 GM NASAL SPRAY NS SCH ×2 (09:43→21:44)
[2018-07-19] MEDS: ACETAMINOPHEN 325 MG TABLET (FP) PO PRN (09:48)
--- NOTE | 2018-07-19 10:10 | PN ---
Progress Note (short form) - Note Progress Note: Reports less tightness at the lung bases with less cough and wheezing. Slight decrease in leg swelling. Intake & Output 07/16/18 07/17/18 07/18/18 07/19/18 23:59 23:59 23:59 23:59 Intake Total 1360 1080 1930 Balance 1360 1080 1930 Last Vital Signs Temp Pulse Resp BP Pulse Ox 98.0 F 88 20 130/55 L 96 07/19/18 09:12 07/19/18 09:12 07/19/18 09:12 07/19/18 09:12 07/18/18 21:00 Active Medications Acetaminophen (Tylenol -) 650 mg PO Q6H PRN PRN Reason: FEVER Last Admin: 07/19/18 09:48 Dose: 650 mg Al Hydroxide/Mg Hydroxide (Mylanta Oral Suspension -) 30 ml PO Q6H PRN PRN Reason: DYSPEPSIA Albuterol Sulfate (Ventolin 0.083% Nebulizer Soln -) 1 amp NEB Q4H PRN PRN Reason: SHORT OF BREATH/WHEEZING Last Admin: 07/19/18 05:43 Dose: 1 amp Albuterol Sulfate (Ventolin 0.083% Nebulizer Soln -) 1 amp NEB RQID [facility] Last Admin: 07/19/18 08:44 Dose: 1 amp Alprazolam (Xanax -) 0.25 mg PO Q12H PRN PRN Reason: ANXIETY Last Admin: 07/18/18 21:04 Dose: 0.25 mg Aspirin (Asa -) 81 mg PO DAILY [facility] Last Admin: 07/19/18 09:42 Dose: 81 mg Atorvastatin Calcium (Lipitor -) 80 mg PO [facility] Last Admin: 07/18/18 21:04 Dose: 80 mg Azithromycin (Zithromax -) 250 mg PO DAILY [facility] Last Admin: 07/19/18 09:42 Dose: 250 mg Budesonide/Formoterol Fumarate (Symbicort 160/4.5mcg -) 2 puff IH BID [facility] Last Admin: 07/19/18 09:42 Dose: 2 puff Clopidogrel Bisulfate (Plavix -) 75 mg PO DAILY [facility] Last Admin: 07/19/18 09:42 Dose: 75 mg Docusate Sodium (Colace -) 300 mg PO [facility] Last Admin: 07/18/18 21:04 Dose: 300 mg Fluticasone Propionate (Flonase -) 1 spray NS BID [facility] Last Admin: 07/19/18 09:43 Dose: 1 spr Folic Acid (Folic Acid -) 1 mg PO DAILY [facility] Last Admin: 07/19/18 09:42 Dose: 1 mg Furosemide (Lasix -) 20 mg PO DAILY [facility] Last Admin: 07/19/18 09:42 Dose: 20 mg Guaifenesin (Robitussin Dm -) 10 ml PO Q6H PRN PRN Reason: COUGH Ceftriaxone Sodium 1 gm/ (Dextrose) 50 mls @ 100 mls/hr IVPB DAILY [facility]; Protocol Last Admin: 07/19/18 09:41 Dose: 100 mls/hr Isosorbide Mononitrate (Imdur -) 30 mg PO BIDISMO [facility] Last Admin: 07/19/18 09:41 Dose: 30 mg Meclizine HCl (Antivert -) 25 mg PO Q6H PRN PRN Reason: VERTIGO Methylprednisolone Sodium Succinate (Solu-Medrol -) 40 mg IVPB Q6H-IV [facility] Last Admin: 07/19/18 09:43 Dose: 40 mg Montelukast Sodium (Singulair -) 10 mg PO HS [facility] Last Admin: 07/18/18 21:04 Dose: 10 mg Nitroglycerin (Nitrostat -) 0.4 mg SL Q5M PRN PRN Reason: FOR CHEST PAIN Pantoprazole Sodium (Protonix -) 40 mg PO DAILY [facility] Last Admin: 07/19/18 09:42 Dose: 40 mg Potassium Chloride (K-Dur -) 10 meq PO BID [facility] Last Admin: 07/19/18 09:42 Dose: 10 meq Ranitidine HCl (Zantac -) 150 mg PO DAILY [facility] Last Admin: 07/19/18 09:42 Dose: 150 mg Ranolazine (Ranexa -) 500 mg PO BID [facility] Last Admin: 07/19/18 09:41 Dose: 500 mg Sodium Chloride ([place] Nasal [place] -) 2 spray NS TID [facility] Last Admin: 07/19/18 05:40 Dose: 2 spray Tiotropium [place] (Spiriva Respimat) 2 puff IH DAILY [facility] Last Admin: 07/19/18 09:42 Dose: 2 puff Valacyclovir HCl (Valtrex -) 500 mg PO BID [facility] Last Admin: 07/19/18 09:41 Dose: 500 mg Verapamil HCl (Calan Sr -) 240 mg PO BID [facility] Last Admin: 07/19/18 09:42 Dose: 240 mg Gen: less tachypneic at rest Heart: RRR Lung: Less bilateral rhonchi & wheezes Abd: soft, nontender Ext: + edema Laboratory Results - last 24 hr 07/19/18 07/19/18 06:45 06:45 WBC 13.2 H RBC 3.53 L Hgb 10.5 L Hct 31.8 L MCV 90.2 MCH 29.8 MCHC 33.0 RDW 15.0 Plt Count 236 MPV 6.7 L Absolute Neuts (auto) 12.3 H Neutrophils % 93.3 H Lymphocytes % 3.9 L Monocytes % 2.7 L Eosinophils % 0.0 D Basophils % 0.1 Nucleated RBC % 0 Sodium 135 L Potassium 4.2 Chloride 98 Carbon Dioxide 30 Anion Gap 7 L BUN 24 H Creatinine 0.7 Creat Clearance w eGFR > 60 Random Glucose 159 H Calcium 8.0 L Total Bilirubin 0.3 AST 13 L ALT 38 Alkaline Phosphatase 57 Total Protein 5.2 L Albumin 2.9 L A/P Acute COPD Exacerbation Pneumonia Lung Nodules CAD LV Diastolic Dysfunction HTN - Decrease Medrol 40mg q8h - Lasix -> consider increase to 40mg OD - inhaled bronchodilators standing and PRN - O2 to keep SpO2 >90% - continue antibiotics - outpt f/u of CT chest to ensure resolution of infiltrates - DVT prophylaxis Dr Bueno
--- NOTE | 2018-07-19 10:17 | PN ---
Progress Note, Physician Chief Complaint: less chest tightness; some pedal edema bilat will increase lasix to 40 mg/day for now - Current Medication List Current Medications: Active Medications Acetaminophen (Tylenol -) 650 mg PO Q6H PRN PRN Reason: FEVER Last Admin: 07/19/18 09:48 Dose: 650 mg Al Hydroxide/Mg Hydroxide (Mylanta Oral Suspension -) 30 ml PO Q6H PRN PRN Reason: DYSPEPSIA Albuterol Sulfate (Ventolin 0.083% Nebulizer Soln -) 1 amp NEB Q4H PRN PRN Reason: SHORT OF BREATH/WHEEZING Last Admin: 07/19/18 05:43 Dose: 1 amp Albuterol Sulfate (Ventolin 0.083% Nebulizer Soln -) 1 amp NEB RQID [facility] Last Admin: 07/19/18 08:44 Dose: 1 amp Alprazolam (Xanax -) 0.25 mg PO Q12H PRN PRN Reason: ANXIETY Last Admin: 07/18/18 21:04 Dose: 0.25 mg Aspirin (Asa -) 81 mg PO DAILY [facility] Last Admin: 07/19/18 09:42 Dose: 81 mg Atorvastatin Calcium (Lipitor -) 80 mg PO HS [facility] Last Admin: 07/18/18 21:04 Dose: 80 mg Azithromycin (Zithromax -) 250 mg PO DAILY [facility] Last Admin: 07/19/18 09:42 Dose: 250 mg Budesonide/Formoterol Fumarate (Symbicort 160/4.5mcg -) 2 puff IH BID [facility] Last Admin: 07/19/18 09:42 Dose: 2 puff Clopidogrel Bisulfate (Plavix -) 75 mg PO DAILY [facility] Last Admin: 07/19/18 09:42 Dose: 75 mg Docusate Sodium (Colace -) 300 mg PO HS [facility] Last Admin: 07/18/18 21:04 Dose: 300 mg Fluticasone Propionate (Flonase -) 1 spray NS BID [facility] Last Admin: 07/19/18 09:43 Dose: 1 spr Folic Acid (Folic Acid -) 1 mg PO DAILY [facility] Last Admin: 07/19/18 09:42 Dose: 1 mg Furosemide (Lasix -) 40 mg PO DAILY [facility] Guaifenesin (Robitussin Dm -) 10 ml PO Q6H PRN PRN Reason: COUGH Ceftriaxone Sodium 1 gm/ (Dextrose) 50 mls @ 100 mls/hr IVPB DAILY [facility]; Protocol Last Admin: 07/19/18 09:41 Dose: 100 mls/hr Isosorbide Mononitrate (Imdur -) 30 mg PO BIDISMO [facility] Last Admin: 07/19/18 09:41 Dose: 30 mg Meclizine HCl (Antivert -) 25 mg PO Q6H PRN PRN Reason: VERTIGO Methylprednisolone Sodium Succinate (Solu-Medrol -) 40 mg IVPB Q8H-IV [facility] Montelukast Sodium (Singulair -) 10 mg PO HS [facility] Last Admin: 07/18/18 21:04 Dose: 10 mg Nitroglycerin (Nitrostat -) 0.4 mg SL Q5M PRN PRN Reason: FOR CHEST PAIN Pantoprazole Sodium (Protonix -) 40 mg PO DAILY [facility] Last Admin: 07/19/18 09:42 Dose: 40 mg Potassium Chloride (K-Dur -) 10 meq PO BID [facility] Last Admin: 07/19/18 09:42 Dose: 10 meq Ranitidine HCl (Zantac -) 150 mg PO DAILY [facility] Last Admin: 07/19/18 09:42 Dose: 150 mg Ranolazine (Ranexa -) 500 mg PO BID [facility] Last Admin: 07/19/18 09:41 Dose: 500 mg Sodium Chloride ([place] Nasal [place] -) 2 spray NS TID [facility] Last Admin: 07/19/18 05:40 Dose: 2 spray Tiotropium [place] (Spiriva Respimat) 2 puff IH DAILY [facility] Last Admin: 07/19/18 09:42 Dose: 2 puff Valacyclovir HCl (Valtrex -) 500 mg PO BID [facility] Last Admin: 07/19/18 09:41 Dose: 500 mg Verapamil HCl (Calan Sr -) 240 mg PO BID [facility] Last Admin: 07/19/18 09:42 Dose: 240 mg - Objective Vital Signs: Vital Signs Temperature 98.0 F 07/19/18 09:12 Pulse Rate 88 07/19/18 09:12 Respiratory Rate 20 07/19/18 09:12 Blood Pressure 130/55 L 07/19/18 09:12 O2 Sat by Pulse Oximetry (%) 96 07/18/18 21:00 Constitutional: Yes: No Distress, Calm Eyes: Yes: Conjunctiva Clear HENT: Yes: Atraumatic Neck: Yes: Supple Cardiovascular: Yes: Regular Rate and Rhythm Respiratory: Yes: Rales Gastrointestinal: Yes: Soft. No: Distention Genitourinary: No: CVA Tenderness - Left, CVA Tenderness - Right Musculoskeletal: No: Joint Stiffness, Joint Swelling Extremities: No: Cold, Cool, Cyanosis Edema: Yes Integumentary: No: Rash, Venous Stasis Changes Neurological: Yes: WNL, Alert, Oriented ...Motor Strength: WNL Psychiatric: Yes: WNL, Alert, Oriented. No: Agitated, Suicidal Ideation Labs: CBC, BMP 07/19/18 06:45 07/19/18 06:45 - ....Imaging Other: Report Reviewed Assessment/Plan The patient is a 63-year-old female with a past medical history significant for CAD, HTN, MD s/p angioplasty, COPD, diastolic CHF, PVD and mesenteric ischemia s /p SMA bypass (2011) h/o noncompliance with outpt consults admitted with acute COPD exac and PNA IV steroids; increase lasix po O2, nebs pulmonary f/u cardiology f/u falls DVT PFX d/w pt and staff
[2018-07-19 10:47] LABS: ACANTHOCYTES 0; ANISOCYTOSIS 0; HELMET CELLS 0; HOWELL-JOLLY BODIES 0; MACROCYTOSIS 0; OVALOCYTE 0; PLATELET ESTIMATE NORMAL; ROULEAU 0; SICKELED CELLS 0; TARGET CELLS 0; TEAR DROP CELLS 0; TOXIC GRANULATION 0
[2018-07-19] MEDS ORDERED: FUROSEMIDE 20 MG TABLET (FP) PO ONE (11:15)
--- NOTE | 2018-07-19 17:26 | PN ---
Progress Note, Physician History of Present Illness: SOB at rest and on exertion, cough productive yellow sputum and wheezing slowly improving. - Current Medication List Current Medications: Active Medications Acetaminophen (Tylenol -) 650 mg PO Q6H PRN PRN Reason: FEVER Last Admin: 07/19/18 09:48 Dose: 650 mg Al Hydroxide/Mg Hydroxide (Mylanta Oral Suspension -) 30 ml PO Q6H PRN PRN Reason: DYSPEPSIA Albuterol Sulfate (Ventolin 0.083% Nebulizer Soln -) 1 amp NEB Q4H PRN PRN Reason: SHORT OF BREATH/WHEEZING Last Admin: 07/19/18 05:43 Dose: 1 amp Albuterol Sulfate (Ventolin 0.083% Nebulizer Soln -) 1 amp NEB RQID [facility] Last Admin: 07/19/18 16:43 Dose: 1 amp Alprazolam (Xanax -) 0.25 mg PO Q12H PRN PRN Reason: ANXIETY Last Admin: 07/18/18 21:04 Dose: 0.25 mg Aspirin (Asa -) 81 mg PO DAILY [facility] Last Admin: 07/19/18 09:42 Dose: 81 mg Atorvastatin Calcium (Lipitor -) 80 mg PO HS [facility] Last Admin: 07/18/18 21:04 Dose: 80 mg Azithromycin (Zithromax -) 250 mg PO DAILY [facility] Last Admin: 07/19/18 09:42 Dose: 250 mg Budesonide/Formoterol Fumarate (Symbicort 160/4.5mcg -) 2 puff IH BID [facility] Last Admin: 07/19/18 09:42 Dose: 2 puff Clopidogrel Bisulfate (Plavix -) 75 mg PO DAILY [facility] Last Admin: 07/19/18 09:42 Dose: 75 mg Docusate Sodium (Colace -) 300 mg PO HS [facility] Last Admin: 07/18/18 21:04 Dose: 300 mg Fluticasone Propionate (Flonase -) 1 spray NS BID [facility] Last Admin: 07/19/18 09:43 Dose: 1 spr Folic Acid (Folic Acid -) 1 mg PO DAILY [facility] Last Admin: 07/19/18 09:42 Dose: 1 mg Furosemide (Lasix -) 40 mg PO DAILY [facility] Guaifenesin (Robitussin Dm -) 10 ml PO Q6H PRN PRN Reason: COUGH Ceftriaxone Sodium 1 gm/ (Dextrose) 50 mls @ 100 mls/hr IVPB DAILY [facility]; Protocol Last Admin: 07/19/18 09:41 Dose: 100 mls/hr Isosorbide Mononitrate (Imdur -) 30 mg PO BIDISMO [facility] Last Admin: 07/19/18 09:41 Dose: 30 mg Meclizine HCl (Antivert -) 25 mg PO Q6H PRN PRN Reason: VERTIGO Methylprednisolone Sodium Succinate (Solu-Medrol -) 40 mg IVPB Q8H-IV [facility] Montelukast Sodium (Singulair -) 10 mg PO HS [facility] Last Admin: 07/18/18 21:04 Dose: 10 mg Nitroglycerin (Nitrostat -) 0.4 mg SL Q5M PRN PRN Reason: FOR CHEST PAIN Pantoprazole Sodium (Protonix -) 40 mg PO DAILY [facility] Last Admin: 07/19/18 09:42 Dose: 40 mg Potassium Chloride (K-Dur -) 10 meq PO BID [facility] Last Admin: 07/19/18 09:42 Dose: 10 meq Ranitidine HCl (Zantac -) 150 mg PO DAILY [facility] Last Admin: 07/19/18 09:42 Dose: 150 mg Ranolazine (Ranexa -) 500 mg PO BID [facility] Last Admin: 07/19/18 09:41 Dose: 500 mg Sodium Chloride ([place] Nasal [place] -) 2 spray NS TID [facility] Last Admin: 07/19/18 13:39 Dose: 2 spray Tiotropium [place] (Spiriva Respimat) 2 puff IH DAILY [facility] Last Admin: 07/19/18 09:42 Dose: 2 puff Valacyclovir HCl (Valtrex -) 500 mg PO BID [facility] Last Admin: 07/19/18 09:41 Dose: 500 mg Verapamil HCl (Calan Sr -) 240 mg PO BID [facility] Last Admin: 07/19/18 09:42 Dose: 240 mg - Objective Vital Signs: Vital Signs Temperature 98.1 F 07/19/18 14:24 Pulse Rate 89 07/19/18 14:24 Respiratory Rate 22 H 07/19/18 14:24 Blood Pressure 147/66 07/19/18 14:24 O2 Sat by Pulse Oximetry (%) 96 07/19/18 09:00 Constitutional: Yes: No Distress, Calm Neck: Yes: Supple Cardiovascular: Yes: Regular Rate and Rhythm Respiratory: Yes: Regular, Diminished, On Nasal O2, SOB, Wheezes Gastrointestinal: Yes: Normal Bowel Sounds, Soft Edema: Yes Edema: LLE: 1+, RLE: 1+ Labs: CBC, BMP 07/19/18 06:45 07/19/18 06:45 Problem List - Problems (1) COPD exacerbation Code(s): J44.1 - CHRONIC OBSTRUCTIVE PULMONARY DISEASE W (ACUTE) EXACERBATION (2) Shortness of breath Code(s): R06.02 - SHORTNESS OF BREATH (3) Coronary artery disease Code(s): I25.10 - ATHSCL HEART DISEASE OF [place] CORONARY ARTERY W/O ANG PCTRS Qualifiers: Coronary Disease-Associated Artery/Lesion type: [place] artery [place] vs. 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 Acute exacerbation of COPD and PNA improving, pulm nodules 2. Diastolic dysfunction with resolved failure 3. CAD post [place] PCI 2011, angina pectoris 4. Systolic murmur, AV sclerosis rule out stenosis 5. HTN/HCVD 6. Hyperlipidemia 7. Bilateral carotid artery disease post right CEA 8. Mesenteric ischemia post SMA bypass 2011 9. PAD post intervention w/o sig stenosis 10. Hyperkalemia 11. H/o left frontal stroke 12. H/o Renal Failure (required temporary dialysis 2011) PLAN: 1. Continue Calan SR 240 bid with caution 2. Continue Bystolic 5 qd with caution 3. Continue Imdur 30 bid and Ranexa 500 bid 4. Previously on Diovan 40 qd since d/miranda 5. Continue Lipitor 80 qhs 6. Continue home oral Lasix dose 20 po qd 7. Continue Plavix 75 qd and ASA 81 qd per neuro recs 8. Follow up with Dr. 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 BD, empiric abx, wean medrol 40 q8 with GI protection, Singulair, O2 to keep Spo2 >90%, DVT prophylaxis 10. Outpt f/u of CT chest to ensure resolution, declines compression therapy with SONNY wraps
[2018-07-19] MEDS: DOCUSATE SODIUM 100 MG CAPSULE (FP) PO SCH (21:43)
[2018-07-19] MEDS: ATORVASTATIN CA 80 MG TABLET (FP) PO SCH (21:43)
[2018-07-19] MEDS: ALPRAZolam 0.25 MG TABLET PO PRN (21:44)
[2018-07-19] MEDS: MONTELUKAST NA 10 MG TABLET PO SCH (21:44)
[2018-07-20] MEDS: methylPREDNISolone NA SUCC 40 MG/1 ML VIAL IVPB SCH ×3 (02:09→17:35)
[2018-07-20] MEDS: ALBUTEROL SO4 0.083% IH SOL 2.5 MG/3 ML VIAL.NEB. NEB PRN (03:30)
[2018-07-20] MEDS: SODIUM CHLORIDE NASAL SPRAY 44 ML BOTTLE NS SCH ×3 (06:49→21:54)
[2018-07-20] MEDS: ALBUTEROL SO4 0.083% IH SOL 2.5 MG/3 ML VIAL.NEB. NEB SCH ×4 (07:04→21:15)
[2018-07-20 07:45] LABS: HEMATOCRIT 32.3 % (32.4-45.2); HEMOGLOBIN 10.4 GM/dL (10.7-15.3); LYMPH % 3.5 % (8-40); MCH 29.2 pg (25.7-33.7); MCHC 32.1 g/dl (32.0-36.0); MEAN CELL VOLUME 90.8 fl (80-96); MEAN PLT VOLUME 6.6 fl (7.5-11.1); MONO % 3.8 % (3.8-10.2); NEUT % 92.7 % (42.8-82.8); PLATELET COUNT 255 K/MM3 (134-434); RBC 3.55 M/mm3 (3.60-5.2); RDW 15.3 % (11.6-15.6); WHITE BLOOD COUNT 15.5 K/mm3 (4.0-10.0)
[2018-07-20 08:35] LABS: ANION GAP 7 MMOL/L (8-16); BLOOD UREA NITROGEN 26 mg/dL (7-18); CALCIUM 8.1 mg/dL (8.5-10.1); CHLORIDE 98 mmol/L (98-107); CO2 30 mmol/L (21-32); CREATININE 0.7 mg/dL (0.55-1.3); GLUCOSE,RANDOM 150 mg/dL (74-106); POTASSIUM 4.6 mmol/L (3.5-5.1); SODIUM 135 mmol/L (136-145)
[2018-07-20] MEDS ORDERED: PT OWN MED DRAWER 7, Y5N ONE ×2 (09:06→14:28)
[2018-07-20] MEDS ORDERED: DEXTROSE 5%-WATER - 50 ML IVPB ONE (09:06)
[2018-07-20] MEDS ORDERED: cefTRIAXone SODIUM 1 GM VIAL ONE (09:06)
[2018-07-20] MEDS: ACETAMINOPHEN 325 MG TABLET (FP) PO PRN (09:23)
[2018-07-20] MEDS: PANTOPRAZOLE 40 MG TABLET (FP) PO SCH (09:24)
[2018-07-20] MEDS: AZITHROMYCIN 250 MG TABLET PO SCH (09:24)
[2018-07-20] MEDS: FUROSEMIDE 40 MG TABLET (FP) PO SCH (09:24)
[2018-07-20] MEDS: CLOPIDOGREL BISULFATE 75 MG TABLET (FP) PO SCH (09:24)
[2018-07-20] MEDS: ISOSORBIDE MONONITRATE 30 MG TAB.SR.24H (FP) PO SCH ×2 (09:24→17:35)
[2018-07-20] MEDS: POTASSIUM CHLORIDE TABS 10 MEQ TABLET.ER (FP) PO SCH ×2 (09:24→21:52)
[2018-07-20] MEDS: FOLIC ACID 1 MG TABLET (FP) PO SCH (09:24)
[2018-07-20] MEDS: ASPIRIN 81 MG CHEWABLE TABLETS PO SCH (09:25)
[2018-07-20] MEDS: BUDESONIDE/FORMETEROL FUMARATE 160/4.5 mcg INHALER IH SCH ×2 (09:25→21:52)
[2018-07-20] MEDS: TIOTROPIUM BROMIDE 2.5 MCG (SPIRIVA) RESPIMAT INHALER IH SCH (09:25)
[2018-07-20] MEDS: FLUTICASONE PROP 0.05% 16 GM NASAL SPRAY NS SCH ×2 (09:25→21:52)
[2018-07-20] MEDS: RANOLAZINE E.R. 500 MG TABLET (FP) PO SCH ×2 (09:25→21:52)
[2018-07-20] MEDS: CEFTRIAXONE 1 GM in DEXTROSE 5%-WATER - 50 ML IVPB SCH (09:25)
[2018-07-20] MEDS: RANITIDINE HCL 150 MG TABLET (FP) PO SCH (09:25)
[2018-07-20] MEDS: VERAPAMIL HCL 240 MG E.R. TABLET (FP) PO SCH ×2 (09:27→21:54)
--- NOTE | 2018-07-20 10:35 | PN ---
Progress Note (short form) - Note Progress Note: Cough seems more productive today, able to expectorate more. Less tightness and wheezing. No change in leg edema. Intake & Output 07/17/18 07/18/18 07/19/18 07/20/18 23:59 23:59 23:59 23:59 Intake Total 1080 1930 515 Balance 1080 1930 515 Last Vital Signs Temp Pulse Resp BP Pulse Ox 97.9 F 76 19 128/50 L 98 07/20/18 06:00 07/20/18 06:00 07/20/18 06:00 07/20/18 06:00 07/19/18 21:00 Active Medications Acetaminophen (Tylenol -) 650 mg PO Q6H PRN PRN Reason: FEVER Last Admin: 07/20/18 09:23 Dose: 650 mg Al Hydroxide/Mg Hydroxide (Mylanta Oral Suspension -) 30 ml PO Q6H PRN PRN Reason: DYSPEPSIA Albuterol Sulfate (Ventolin 0.083% Nebulizer Soln -) 1 amp NEB Q4H PRN PRN Reason: SHORT OF BREATH/WHEEZING Last Admin: 07/20/18 03:30 Dose: 1 amp Albuterol Sulfate (Ventolin 0.083% Nebulizer Soln -) 1 amp NEB RQID [facility] Last Admin: 07/20/18 07:04 Dose: 1 amp Alprazolam (Xanax -) 0.25 mg PO Q12H PRN PRN Reason: ANXIETY Last Admin: 07/19/18 21:44 Dose: 0.25 mg Aspirin (Asa -) 81 mg PO DAILY [facility] Last Admin: 07/20/18 09:25 Dose: 81 mg Atorvastatin Calcium (Lipitor -) 80 mg PO [facility] Last Admin: 07/19/18 21:43 Dose: 80 mg Azithromycin (Zithromax -) 250 mg PO DAILY [facility] Last Admin: 07/20/18 09:24 Dose: 250 mg Budesonide/Formoterol Fumarate (Symbicort 160/4.5mcg -) 2 puff IH BID [facility] Last Admin: 07/20/18 09:25 Dose: 2 puff Clopidogrel Bisulfate (Plavix -) 75 mg PO DAILY [facility] Last Admin: 07/20/18 09:24 Dose: 75 mg Docusate Sodium (Colace -) 300 mg PO [facility] Last Admin: 07/19/18 21:43 Dose: 300 mg Fluticasone Propionate (Flonase -) 1 spray NS BID [facility] Last Admin: 07/20/18 09:25 Dose: 1 spr Folic Acid (Folic Acid -) 1 mg PO DAILY [facility] Last Admin: 07/20/18 09:24 Dose: 1 mg Furosemide (Lasix -) 40 mg PO DAILY [facility] Last Admin: 07/20/18 09:24 Dose: 40 mg Guaifenesin (Robitussin Dm -) 10 ml PO Q6H PRN PRN Reason: COUGH Ceftriaxone Sodium 1 gm/ (Dextrose) 50 mls @ 100 mls/hr IVPB DAILY [facility]; Protocol Last Admin: 07/20/18 09:25 Dose: 100 mls/hr Isosorbide Mononitrate (Imdur -) 30 mg PO BIDISMO [facility] Last Admin: 07/20/18 09:24 Dose: 30 mg Meclizine HCl (Antivert -) 25 mg PO Q6H PRN PRN Reason: VERTIGO Methylprednisolone Sodium Succinate (Solu-Medrol -) 40 mg IVPB Q8H-IV [facility] Last Admin: 07/20/18 09:25 Dose: 40 mg Montelukast Sodium (Singulair -) 10 mg PO HS [facility] Last Admin: 07/19/18 21:44 Dose: 10 mg Nitroglycerin (Nitrostat -) 0.4 mg SL Q5M PRN PRN Reason: FOR CHEST PAIN Pantoprazole Sodium (Protonix -) 40 mg PO DAILY [facility] Last Admin: 07/20/18 09:24 Dose: 40 mg Potassium Chloride (K-Dur -) 10 meq PO BID [facility] Last Admin: 07/20/18 09:24 Dose: 10 meq Ranitidine HCl (Zantac -) 150 mg PO DAILY [facility] Last Admin: 07/20/18 09:25 Dose: 150 mg Ranolazine (Ranexa -) 500 mg PO BID [facility] Last Admin: 07/20/18 09:25 Dose: 500 mg Sodium Chloride ([place] Nasal [place] -) 2 spray NS TID [facility] Last Admin: 07/20/18 06:49 Dose: 2 spray Tiotropium [place] (Spiriva Respimat) 2 puff IH DAILY [facility] Last Admin: 07/20/18 09:25 Dose: 2 puff Verapamil HCl (Calan Sr -) 240 mg PO BID [facility] Last Admin: 07/20/18 09:27 Dose: 240 mg Gen: less tachypneic at rest Heart: RRR Lung: Less bilateral rhonchi & wheezes Abd: soft, nontender Ext: + edema Laboratory Results - last 24 hr 07/19/18 07/20/18 07/20/18 06:45 06:00 06:00 WBC 15.5 H RBC 3.55 L Hgb 10.4 L Hct 32.3 L MCV 90.8 MCH 29.2 MCHC 32.1 RDW 15.3 Plt Count 255 MPV 6.6 L Absolute Neuts (auto) 14.4 H Neutrophils % 92.7 H Neutrophils % (Manual) 92.0 H Band Neutrophils % 0.0 Lymphocytes % 3.5 L Lymphocytes % (Manual) 3.0 L D Monocytes % 3.8 Monocytes % (Manual) 3 L Eosinophils % 0.0 Eosinophils % (Manual) 0.0 Basophils % 0.0 Basophils % (Manual) 0.0 Myelocytes % (Man) 2 D Promyelocytes % (Man) 0 Blast Cells % (Manual) 0 Nucleated RBC % 0 Metamyelocytes 0 Hypochromia 0 Toxic Granulation 0 Dohle Bodies 0 Platelet Estimate Normal Polychromasia 0 Poikilocytosis 0 Basophilic Stippling 0 Anisocytosis 0 Microcytosis 0 Macrocytosis 0 Spherocytes 0 Sickle Cells 0 Target Cells 0 Tear Drop Cells 0 Ovalocytes 0 Stomatocytes 0 Helmet Cells 0 [place] Bodies 0 [place] Rings 0 Maurisio Cells 0 Acanthocytes (Spur) 0 Rouleaux 0 Fragmented RBCs 0 Schistocytes 0 Sodium 135 L Potassium 4.6 Chloride 98 Carbon Dioxide 30 Anion Gap 7 L BUN 26 H Creatinine 0.7 Creat Clearance w eGFR > 60 Random Glucose 150 H Calcium 8.1 L A/P Acute COPD Exacerbation Pneumonia Lung Nodules CAD LV Diastolic Dysfunction HTN - Medrola at current dose: 40mg q8h - Lasix 40mg OD - inhaled bronchodilators standing and PRN - O2 to keep SpO2 >90% - continue antibiotics - outpatient CT chest to ensure resolution of infiltrates - DVT prophylaxis - No smoking Dr Bueno
[2018-07-20 10:48] LABS: ACANTHOCYTES 0; ANISOCYTOSIS 0; HELMET CELLS 0; HOWELL-JOLLY BODIES 0; MACROCYTOSIS 0; OVALOCYTE 0; PLATELET ESTIMATE NORMAL; ROULEAU 0; SICKELED CELLS 0; TARGET CELLS 0; TEAR DROP CELLS 0; TOXIC GRANULATION 0
--- NOTE | 2018-07-20 11:40 | PN ---
Progress Note, Physician History of Present Illness: SOB at rest and on exertion, cough productive yellow sputum and wheezing slowly improving. - Current Medication List Current Medications: Active Medications Acetaminophen (Tylenol -) 650 mg PO Q6H PRN PRN Reason: FEVER Last Admin: 07/20/18 09:23 Dose: 650 mg Al Hydroxide/Mg Hydroxide (Mylanta Oral Suspension -) 30 ml PO Q6H PRN PRN Reason: DYSPEPSIA Albuterol Sulfate (Ventolin 0.083% Nebulizer Soln -) 1 amp NEB Q4H PRN PRN Reason: SHORT OF BREATH/WHEEZING Last Admin: 07/20/18 03:30 Dose: 1 amp Albuterol Sulfate (Ventolin 0.083% Nebulizer Soln -) 1 amp NEB RQID [facility] Last Admin: 07/20/18 07:04 Dose: 1 amp Alprazolam (Xanax -) 0.25 mg PO Q12H PRN PRN Reason: ANXIETY Last Admin: 07/19/18 21:44 Dose: 0.25 mg Aspirin (Asa -) 81 mg PO DAILY [facility] Last Admin: 07/20/18 09:25 Dose: 81 mg Atorvastatin Calcium (Lipitor -) 80 mg PO HS [facility] Last Admin: 07/19/18 21:43 Dose: 80 mg Azithromycin (Zithromax -) 250 mg PO DAILY [facility] Last Admin: 07/20/18 09:24 Dose: 250 mg Budesonide/Formoterol Fumarate (Symbicort 160/4.5mcg -) 2 puff IH BID [facility] Last Admin: 07/20/18 09:25 Dose: 2 puff Clopidogrel Bisulfate (Plavix -) 75 mg PO DAILY [facility] Last Admin: 07/20/18 09:24 Dose: 75 mg Docusate Sodium (Colace -) 300 mg PO HS [facility] Last Admin: 07/19/18 21:43 Dose: 300 mg Fluticasone Propionate (Flonase -) 1 spray NS BID [facility] Last Admin: 07/20/18 09:25 Dose: 1 spr Folic Acid (Folic Acid -) 1 mg PO DAILY [facility] Last Admin: 07/20/18 09:24 Dose: 1 mg Furosemide (Lasix -) 40 mg PO DAILY [facility] Last Admin: 07/20/18 09:24 Dose: 40 mg Guaifenesin (Robitussin Dm -) 10 ml PO Q6H PRN PRN Reason: COUGH Ceftriaxone Sodium 1 gm/ (Dextrose) 50 mls @ 100 mls/hr IVPB DAILY [facility]; Protocol Last Admin: 07/20/18 09:25 Dose: 100 mls/hr Isosorbide Mononitrate (Imdur -) 30 mg PO BIDISMO [facility] Last Admin: 07/20/18 09:24 Dose: 30 mg Meclizine HCl (Antivert -) 25 mg PO Q6H PRN PRN Reason: VERTIGO Methylprednisolone Sodium Succinate (Solu-Medrol -) 40 mg IVPB Q8H-IV [facility] Last Admin: 07/20/18 09:25 Dose: 40 mg Montelukast Sodium (Singulair -) 10 mg PO HS [facility] Last Admin: 07/19/18 21:44 Dose: 10 mg Nitroglycerin (Nitrostat -) 0.4 mg SL Q5M PRN PRN Reason: FOR CHEST PAIN Pantoprazole Sodium (Protonix -) 40 mg PO DAILY [facility] Last Admin: 07/20/18 09:24 Dose: 40 mg Potassium Chloride (K-Dur -) 10 meq PO BID [facility] Last Admin: 07/20/18 09:24 Dose: 10 meq Ranitidine HCl (Zantac -) 150 mg PO DAILY [facility] Last Admin: 07/20/18 09:25 Dose: 150 mg Ranolazine (Ranexa -) 500 mg PO BID [facility] Last Admin: 07/20/18 09:25 Dose: 500 mg Sodium Chloride ([place] Nasal [place] -) 2 spray NS TID [facility] Last Admin: 07/20/18 06:49 Dose: 2 spray Tiotropium [place] (Spiriva Respimat) 2 puff IH DAILY [facility] Last Admin: 07/20/18 09:25 Dose: 2 puff Verapamil HCl (Calan Sr -) 240 mg PO BID [facility] Last Admin: 07/20/18 09:27 Dose: 240 mg - Objective Vital Signs: Vital Signs Temperature 97.7 F 07/20/18 10:00 Pulse Rate 81 07/20/18 10:00 Respiratory Rate 22 H 07/20/18 10:00 Blood Pressure 130/50 L 07/20/18 10:00 O2 Sat by Pulse Oximetry (%) 96 07/20/18 09:00 Constitutional: Yes: No Distress, Calm Neck: Yes: Supple Cardiovascular: Yes: Regular Rate and Rhythm Respiratory: Yes: Regular, Cough, Diminished, SOB, Wheezes Gastrointestinal: Yes: Normal Bowel Sounds, Soft Edema: Yes Edema: LLE: 1+, RLE: 1+ Labs: CBC, BMP 07/20/18 06:00 07/20/18 06:00 Problem List - Problems (1) COPD exacerbation Code(s): J44.1 - CHRONIC OBSTRUCTIVE PULMONARY DISEASE W (ACUTE) EXACERBATION (2) Shortness of breath Code(s): R06.02 - SHORTNESS OF BREATH (3) Coronary artery disease Code(s): I25.10 - ATHSCL HEART DISEASE OF [place] CORONARY ARTERY W/O ANG PCTRS Qualifiers: Coronary Disease-Associated Artery/Lesion type: [place] artery [place] vs. 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 Acute exacerbation of COPD and PNA improving, pulm nodules 2. Diastolic dysfunction with resolved failure 3. CAD post [place] PCI 2011, angina pectoris 4. Systolic murmur, AV sclerosis rule out stenosis 5. HTN/HCVD 6. Hyperlipidemia 7. Bilateral carotid artery disease post right CEA 8. Mesenteric ischemia post SMA bypass 2011 9. PAD post intervention w/o sig stenosis 10. Hyperkalemia 11. H/o left frontal stroke 12. H/o Renal Failure (required temporary dialysis 2011) PLAN: 1. Continue Calan SR 240 bid with caution 2. Continue Imdur 30 bid and Ranexa 500 bid 3. Previously on Diovan 40 qd and Bystolic 5 qd since d/miranda 4. Continue Lipitor 80 qhs 5. Increased oral Lasix dose 40 po qd 6. Continue Plavix 75 qd and ASA 81 qd per neuro recs 7. Follow up with Dr. 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 BD, empiric abx, wean medrol 40 q8 with GI protection, Singulair, O2 to keep Spo2 >90%, DVT prophylaxis 9. Outpt f/u of CT chest to ensure resolution, declines compression therapy with SONNY wraps
--- NOTE | 2018-07-20 16:35 | PN ---
Progress Note, Physician History of Present Illness: Pt states that her breathing is slightly better as her sputum is "breaking up". Pt w/o CP, palp, abd pain. Pt with vaginal discomfort, states that this happens to her when receiving steroids and it gets better with Fluconazole pill. - Current Medication List Current Medications: Active Medications Acetaminophen (Tylenol -) 650 mg PO Q6H PRN PRN Reason: FEVER Last Admin: 07/20/18 09:23 Dose: 650 mg Al Hydroxide/Mg Hydroxide (Mylanta Oral Suspension -) 30 ml PO Q6H PRN PRN Reason: DYSPEPSIA Albuterol Sulfate (Ventolin 0.083% Nebulizer Soln -) 1 amp NEB Q4H PRN PRN Reason: SHORT OF BREATH/WHEEZING Last Admin: 07/20/18 03:30 Dose: 1 amp Albuterol Sulfate (Ventolin 0.083% Nebulizer Soln -) 1 amp NEB RQID [facility] Last Admin: 07/20/18 12:56 Dose: 1 amp Alprazolam (Xanax -) 0.25 mg PO Q12H PRN PRN Reason: ANXIETY Last Admin: 07/19/18 21:44 Dose: 0.25 mg Aspirin (Asa -) 81 mg PO DAILY [facility] Last Admin: 07/20/18 09:25 Dose: 81 mg Atorvastatin Calcium (Lipitor -) 80 mg PO HS [facility] Last Admin: 07/19/18 21:43 Dose: 80 mg Azithromycin (Zithromax -) 250 mg PO DAILY [facility] Last Admin: 07/20/18 09:24 Dose: 250 mg Budesonide/Formoterol Fumarate (Symbicort 160/4.5mcg -) 2 puff IH BID [facility] Last Admin: 07/20/18 09:25 Dose: 2 puff Clopidogrel Bisulfate (Plavix -) 75 mg PO DAILY [facility] Last Admin: 07/20/18 09:24 Dose: 75 mg Docusate Sodium (Colace -) 300 mg PO HS [facility] Last Admin: 07/19/18 21:43 Dose: 300 mg Fluticasone Propionate (Flonase -) 1 spray NS BID [facility] Last Admin: 07/20/18 09:25 Dose: 1 spr Folic Acid (Folic Acid -) 1 mg PO DAILY [facility] Last Admin: 07/20/18 09:24 Dose: 1 mg Furosemide (Lasix -) 40 mg PO DAILY [facility] Last Admin: 07/20/18 09:24 Dose: 40 mg Guaifenesin (Robitussin Dm -) 10 ml PO Q6H PRN PRN Reason: COUGH Ceftriaxone Sodium 1 gm/ (Dextrose) 50 mls @ 100 mls/hr IVPB DAILY [facility]; Protocol Last Admin: 07/20/18 09:25 Dose: 100 mls/hr Isosorbide Mononitrate (Imdur -) 30 mg PO BIDISMO [facility] Last Admin: 07/20/18 09:24 Dose: 30 mg Meclizine HCl (Antivert -) 25 mg PO Q6H PRN PRN Reason: VERTIGO Methylprednisolone Sodium Succinate (Solu-Medrol -) 40 mg IVPB Q8H-IV [facility] Last Admin: 07/20/18 09:25 Dose: 40 mg Montelukast Sodium (Singulair -) 10 mg PO HS [facility] Last Admin: 07/19/18 21:44 Dose: 10 mg Nitroglycerin (Nitrostat -) 0.4 mg SL Q5M PRN PRN Reason: FOR CHEST PAIN Pantoprazole Sodium (Protonix -) 40 mg PO DAILY [facility] Last Admin: 07/20/18 09:24 Dose: 40 mg Potassium Chloride (K-Dur -) 10 meq PO BID [facility] Last Admin: 07/20/18 09:24 Dose: 10 meq Ranitidine HCl (Zantac -) 150 mg PO DAILY [facility] Last Admin: 07/20/18 09:25 Dose: 150 mg Ranolazine (Ranexa -) 500 mg PO BID [facility] Last Admin: 07/20/18 09:25 Dose: 500 mg Sodium Chloride ([place] Nasal [place] -) 2 spray NS TID [facility] Last Admin: 07/20/18 14:01 Dose: 2 spray Tiotropium [place] (Spiriva Respimat) 2 puff IH DAILY [facility] Last Admin: 07/20/18 09:25 Dose: 2 puff Verapamil HCl (Calan Sr -) 240 mg PO BID [facility] Last Admin: 07/20/18 09:27 Dose: 240 mg - Objective Vital Signs: Vital Signs Temperature 98.0 F 07/20/18 14:34 Pulse Rate 71 07/20/18 14:34 Respiratory Rate 20 07/20/18 14:34 Blood Pressure 124/56 L 07/20/18 14:34 O2 Sat by Pulse Oximetry (%) 96 07/20/18 09:00 Constitutional: Yes: No Distress, Calm Cardiovascular: Yes: Regular Rate and Rhythm, S1, S2 Respiratory: Yes: Regular, Rhonchi. No: Wheezes Gastrointestinal: Yes: Normal Bowel Sounds, Soft. No: Tenderness Edema: LLE: Trace, RLE: Trace Neurological: Yes: Alert, Oriented Labs: CBC, BMP 07/20/18 06:00 07/20/18 06:00 Problem List - Problems (1) COPD with acute exacerbation Code(s): J44.1 - CHRONIC OBSTRUCTIVE PULMONARY DISEASE W (ACUTE) EXACERBATION (2) Pneumonia Code(s): J18.9 - PNEUMONIA, UNSPECIFIED ORGANISM (3) Diastolic CHF Code(s): I50.30 - UNSPECIFIED DIASTOLIC (CONGESTIVE) HEART FAILURE (4) Coronary artery disease Code(s): I25.10 - ATHSCL HEART DISEASE OF [place] CORONARY ARTERY W/O ANG PCTRS Qualifiers: Coronary Disease-Associated Artery/Lesion type: [place] artery [place] vs. transplanted heart: [place] heart Associated angina: without angina Qualified Code(s): I25.10 - Atherosclerotic heart disease of [place] coronary artery without angina pectoris (5) HTN (hypertension) Code(s): I10 - ESSENTIAL (PRIMARY) HYPERTENSION Qualifiers: Hypertension type: essential hypertension Qualified Code(s): I10 - Essential (primary) hypertension (6) Hyperlipidemia Code(s): E78.5 - HYPERLIPIDEMIA, UNSPECIFIED Qualifiers: Hyperlipidemia type: pure hypercholesterolemia Qualified Code(s): E78.00 - Pure hypercholesterolemia, unspecified; E78.0 - Pure hypercholesterolemia (7) Mesenteric ischemia Code(s): K55.9 - VASCULAR DISORDER OF INTESTINE, UNSPECIFIED (8) Hyponatremia Code(s): E87.1 - HYPO-OSMOLALITY AND HYPONATREMIA (9) Anemia Code(s): D64.9 - ANEMIA, UNSPECIFIED Assessment/Plan Pt is on Solu-medrol; to continue current dose Cont Lasix. Cardio and Pulmonary f/u visits are appreciated Stable H/H Monitor Na+ Case was d/w pt's nurse
[2018-07-20] MEDS ORDERED: FLUCONAZOLE 150 MG TABLET PO ONE (16:43)
[2018-07-20] MEDS: DOCUSATE SODIUM 100 MG CAPSULE (FP) PO SCH (21:52)
[2018-07-20] MEDS: MONTELUKAST NA 10 MG TABLET PO SCH (21:53)
[2018-07-20] MEDS: NYSTATIN 500,000 UNITS/5 ML SUSPENSION PO SCH (21:53)
[2018-07-20] MEDS: ATORVASTATIN CA 80 MG TABLET (FP) PO SCH (21:53)
[2018-07-21] MEDS: methylPREDNISolone NA SUCC 40 MG/1 ML VIAL IVPB SCH ×3 (02:08→22:12)
[2018-07-21] MEDS: SODIUM CHLORIDE NASAL SPRAY 44 ML BOTTLE NS SCH ×3 (06:33→22:26)
[2018-07-21 07:27] LABS: HEMOGLOBIN 10.6 GM/dL (10.7-15.3); MCHC 34.3 g/dl (32.0-36.0); MEAN CELL VOLUME 90.3 fl (80-96); MEAN PLT VOLUME 6.6 fl (7.5-11.1); PLATELET COUNT 279 K/MM3 (134-434); RBC 3.43 M/mm3 (3.60-5.2); RDW 15.3 % (11.6-15.6); WHITE BLOOD COUNT 16.8 K/mm3 (4.0-10.0)
[2018-07-21 07:52] LABS: ANION GAP 5 MMOL/L (8-16); BLOOD UREA NITROGEN 21 mg/dL (7-18); CHLORIDE 96 mmol/L (98-107); CO2 33 mmol/L (21-32); CREATININE 0.6 mg/dL (0.55-1.3); GLUCOSE,RANDOM 115 mg/dL (74-106); POTASSIUM 4.6 mmol/L (3.5-5.1); SODIUM 135 mmol/L (136-145)
[2018-07-21] MEDS: ALBUTEROL SO4 0.083% IH SOL 2.5 MG/3 ML VIAL.NEB. NEB SCH ×3 (08:10→20:56)
[2018-07-21] MEDS ORDERED: cefTRIAXone SODIUM 1 GM VIAL ONE (09:30)
[2018-07-21] MEDS ORDERED: PT OWN MED DRAWER 7, Y5N ONE (09:30)
[2018-07-21] MEDS ORDERED: DEXTROSE 5%-WATER - 50 ML IVPB ONE (09:30)
[2018-07-21] MEDS: NYSTATIN 500,000 UNITS/5 ML SUSPENSION PO SCH ×2 (09:46→22:23)
[2018-07-21] MEDS: AZITHROMYCIN 250 MG TABLET PO SCH (09:46)
[2018-07-21] MEDS: RANOLAZINE E.R. 500 MG TABLET (FP) PO SCH ×2 (09:46→22:12)
[2018-07-21] MEDS: ASPIRIN 81 MG CHEWABLE TABLETS PO SCH (09:46)
[2018-07-21] MEDS: FOLIC ACID 1 MG TABLET (FP) PO SCH (09:46)
[2018-07-21] MEDS: FUROSEMIDE 40 MG TABLET (FP) PO SCH (09:47)
[2018-07-21] MEDS: RANITIDINE HCL 150 MG TABLET (FP) PO SCH (09:47)
[2018-07-21] MEDS: PANTOPRAZOLE 40 MG TABLET (FP) PO SCH (09:47)
[2018-07-21] MEDS: POTASSIUM CHLORIDE TABS 10 MEQ TABLET.ER (FP) PO SCH ×2 (09:47→22:12)
[2018-07-21] MEDS: ISOSORBIDE MONONITRATE 30 MG TAB.SR.24H (FP) PO SCH ×2 (09:47→17:44)
[2018-07-21] MEDS: CLOPIDOGREL BISULFATE 75 MG TABLET (FP) PO SCH (09:47)
[2018-07-21] MEDS: FLUTICASONE PROP 0.05% 16 GM NASAL SPRAY NS SCH ×2 (09:48→22:25)
[2018-07-21] MEDS: VERAPAMIL HCL 240 MG E.R. TABLET (FP) PO SCH ×2 (09:48→22:24)
[2018-07-21] MEDS: CEFTRIAXONE 1 GM in DEXTROSE 5%-WATER - 50 ML IVPB SCH (09:49)
[2018-07-21] MEDS: TIOTROPIUM BROMIDE 2.5 MCG (SPIRIVA) RESPIMAT INHALER IH SCH (09:49)
[2018-07-21] MEDS: BUDESONIDE/FORMETEROL FUMARATE 160/4.5 mcg INHALER IH SCH ×2 (09:49→22:25)
[2018-07-21] MEDS: ACETAMINOPHEN 325 MG TABLET (FP) PO PRN (09:51)
--- NOTE | 2018-07-21 12:48 | PN ---
Progress Note, Physician History of Present Illness: SOB at rest and on exertion, cough productive yellow sputum and wheezing slowly improving. Dependent LE edema. - Current Medication List Current Medications: Active Medications Acetaminophen (Tylenol -) 650 mg PO Q6H PRN PRN Reason: FEVER Last Admin: 07/21/18 09:51 Dose: 650 mg Al Hydroxide/Mg Hydroxide (Mylanta Oral Suspension -) 30 ml PO Q6H PRN PRN Reason: DYSPEPSIA Albuterol Sulfate (Ventolin 0.083% Nebulizer Soln -) 1 amp NEB Q4H PRN PRN Reason: SHORT OF BREATH/WHEEZING Last Admin: 07/20/18 03:30 Dose: 1 amp Albuterol Sulfate (Ventolin 0.083% Nebulizer Soln -) 1 amp NEB RQID [facility] Last Admin: 07/21/18 12:13 Dose: 1 amp Alprazolam (Xanax -) 0.25 mg PO Q12H PRN PRN Reason: ANXIETY Last Admin: 07/19/18 21:44 Dose: 0.25 mg Aspirin (Asa -) 81 mg PO DAILY [facility] Last Admin: 07/21/18 09:46 Dose: 81 mg Atorvastatin Calcium (Lipitor -) 80 mg PO HS [facility] Last Admin: 07/20/18 21:53 Dose: 80 mg Azithromycin (Zithromax -) 250 mg PO DAILY [facility] Last Admin: 07/21/18 09:46 Dose: 250 mg Budesonide/Formoterol Fumarate (Symbicort 160/4.5mcg -) 2 puff IH BID [facility] Last Admin: 07/21/18 09:49 Dose: 2 puff Clopidogrel Bisulfate (Plavix -) 75 mg PO DAILY [facility] Last Admin: 07/21/18 09:47 Dose: 75 mg Docusate Sodium (Colace -) 300 mg PO HS [facility] Last Admin: 07/20/18 21:52 Dose: 300 mg Fluticasone Propionate (Flonase -) 1 spray NS BID [facility] Last Admin: 07/21/18 09:48 Dose: 1 spr Folic Acid (Folic Acid -) 1 mg PO DAILY [facility] Last Admin: 07/21/18 09:46 Dose: 1 mg Furosemide (Lasix -) 40 mg PO DAILY [facility] Last Admin: 07/21/18 09:47 Dose: 40 mg Guaifenesin (Robitussin Dm -) 10 ml PO Q6H PRN PRN Reason: COUGH Ceftriaxone Sodium 1 gm/ (Dextrose) 50 mls @ 100 mls/hr IVPB DAILY [facility]; Protocol Last Admin: 07/21/18 09:49 Dose: 100 mls/hr Isosorbide Mononitrate (Imdur -) 30 mg PO BIDISMO [facility] Last Admin: 07/21/18 09:47 Dose: 30 mg Meclizine HCl (Antivert -) 25 mg PO Q6H PRN PRN Reason: VERTIGO Methylprednisolone Sodium Succinate (Solu-Medrol -) 40 mg IVPB Q8H-IV [facility] Last Admin: 07/21/18 09:49 Dose: 40 mg Montelukast Sodium (Singulair -) 10 mg PO HS [facility] Last Admin: 07/20/18 21:53 Dose: 10 mg Nitroglycerin (Nitrostat -) 0.4 mg SL Q5M PRN PRN Reason: FOR CHEST PAIN Nystatin (Nystatin Oral Suspension -) 500,000 units PO BID [facility] Last Admin: 07/21/18 09:46 Dose: 500,000 units Pantoprazole Sodium (Protonix -) 40 mg PO DAILY [facility] Last Admin: 07/21/18 09:47 Dose: 40 mg Potassium Chloride (K-Dur -) 10 meq PO BID [facility] Last Admin: 07/21/18 09:47 Dose: 10 meq Ranitidine HCl (Zantac -) 150 mg PO DAILY [facility] Last Admin: 07/21/18 09:47 Dose: 150 mg Ranolazine (Ranexa -) 500 mg PO BID [facility] Last Admin: 07/21/18 09:46 Dose: 500 mg Sodium Chloride ([place] Nasal [place] -) 2 spray NS TID [facility] Last Admin: 07/21/18 06:33 Dose: 2 spray Tiotropium [place] (Spiriva Respimat) 2 puff IH DAILY [facility] Last Admin: 07/21/18 09:49 Dose: 2 puff Verapamil HCl (Calan Sr -) 240 mg PO BID [facility] Last Admin: 07/21/18 09:48 Dose: 240 mg - Objective Vital Signs: Vital Signs Temperature 97.8 F 07/21/18 09:40 Pulse Rate 83 07/21/18 09:40 Respiratory Rate 22 H 07/21/18 09:40 Blood Pressure 139/55 L 07/21/18 09:40 O2 Sat by Pulse Oximetry (%) 96 07/20/18 21:00 Constitutional: Yes: No Distress, Calm Neck: Yes: Supple Cardiovascular: Yes: Regular Rate and Rhythm Respiratory: Yes: Regular, Cough, Diminished, On Nasal O2, SOB, Wheezes Gastrointestinal: Yes: Normal Bowel Sounds, Soft, Abdomen, Obese Edema: Yes Edema: LLE: 1+, RLE: 1+ Labs: CBC, BMP 07/21/18 06:30 07/21/18 06:30 Problem List - Problems (1) COPD exacerbation Code(s): J44.1 - CHRONIC OBSTRUCTIVE PULMONARY DISEASE W (ACUTE) EXACERBATION (2) Shortness of breath Code(s): R06.02 - SHORTNESS OF BREATH (3) Coronary artery disease Code(s): I25.10 - ATHSCL HEART DISEASE OF [place] CORONARY ARTERY W/O ANG PCTRS Qualifiers: Coronary Disease-Associated Artery/Lesion type: [place] artery [place] vs. 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 Acute exacerbation of COPD and PNA improving, pulm nodules 2. Diastolic dysfunction with resolved failure 3. CAD post [place] PCI 2011, angina pectoris 4. Systolic murmur, AV sclerosis rule out stenosis 5. HTN/HCVD 6. Hyperlipidemia 7. Bilateral carotid artery disease post right CEA 8. Mesenteric ischemia post SMA bypass 2011 9. PAD post intervention w/o sig stenosis 10. Hyperkalemia 11. H/o left frontal stroke 12. H/o Renal Failure (required temporary dialysis 2011) PLAN: 1. Continue Calan SR 240 bid with caution 2. Continue Imdur 30 bid and Ranexa 500 bid 3. Previously on Diovan 40 qd and Bystolic 5 qd since d/miranda 4. Continue Lipitor 80 qhs 5. Increased oral Lasix dose 40 po qd 6. Continue Plavix 75 qd and ASA 81 qd per neuro recs 7. 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 BD, empiric abx, wean medrol 40 q8 with GI protection, Singulair, O2 to keep Spo2 >90%, DVT prophylaxis 9. Outpt f/u of CT chest to ensure resolution, declines compression therapy with SONNY wraps
--- NOTE | 2018-07-21 15:54 | PN ---
Progress Note (short form) - Note Progress Note: Breathing seems a little better today. Cough is less productive. Less tightness and wheezing. Less leg edema. Intake & Output 07/18/18 07/19/18 07/20/18 07/21/18 23:59 23:59 23:59 23:59 Intake Total 9089 703 0525 480 Balance 3036 577 7767 480 Last Vital Signs Temp Pulse Resp BP Pulse Ox 98.3 F 81 22 H 119/51 L 96 07/21/18 14:51 07/21/18 14:51 07/21/18 14:51 07/21/18 14:51 07/20/18 21:00 Active Medications Acetaminophen (Tylenol -) 650 mg PO Q6H PRN PRN Reason: FEVER Last Admin: 07/21/18 09:51 Dose: 650 mg Al Hydroxide/Mg Hydroxide (Mylanta Oral Suspension -) 30 ml PO Q6H PRN PRN Reason: DYSPEPSIA Albuterol Sulfate (Ventolin 0.083% Nebulizer Soln -) 1 amp NEB Q4H PRN PRN Reason: SHORT OF BREATH/WHEEZING Last Admin: 07/20/18 03:30 Dose: 1 amp Albuterol Sulfate (Ventolin 0.083% Nebulizer Soln -) 1 amp NEB RQID [facility] Last Admin: 07/21/18 12:13 Dose: 1 amp Alprazolam (Xanax -) 0.25 mg PO Q12H PRN PRN Reason: ANXIETY Last Admin: 07/19/18 21:44 Dose: 0.25 mg Aspirin (Asa -) 81 mg PO DAILY [facility] Last Admin: 07/21/18 09:46 Dose: 81 mg Atorvastatin Calcium (Lipitor -) 80 mg PO HS [facility] Last Admin: 07/20/18 21:53 Dose: 80 mg Azithromycin (Zithromax -) 250 mg PO DAILY [facility] Last Admin: 07/21/18 09:46 Dose: 250 mg Budesonide/Formoterol Fumarate (Symbicort 160/4.5mcg -) 2 puff IH BID [facility] Last Admin: 07/21/18 09:49 Dose: 2 puff Clopidogrel Bisulfate (Plavix -) 75 mg PO DAILY [facility] Last Admin: 07/21/18 09:47 Dose: 75 mg Docusate Sodium (Colace -) 300 mg PO HS [facility] Last Admin: 07/20/18 21:52 Dose: 300 mg Fluticasone Propionate (Flonase -) 1 spray NS BID [facility] Last Admin: 07/21/18 09:48 Dose: 1 spr Folic Acid (Folic Acid -) 1 mg PO DAILY [facility] Last Admin: 07/21/18 09:46 Dose: 1 mg Furosemide (Lasix -) 40 mg PO DAILY [facility] Last Admin: 07/21/18 09:47 Dose: 40 mg Guaifenesin (Robitussin Dm -) 10 ml PO Q6H PRN PRN Reason: COUGH Ceftriaxone Sodium 1 gm/ (Dextrose) 50 mls @ 100 mls/hr IVPB DAILY [facility]; Protocol Last Admin: 07/21/18 09:49 Dose: 100 mls/hr Isosorbide Mononitrate (Imdur -) 30 mg PO BIDISMO [facility] Last Admin: 07/21/18 09:47 Dose: 30 mg Meclizine HCl (Antivert -) 25 mg PO Q6H PRN PRN Reason: VERTIGO Methylprednisolone Sodium Succinate (Solu-Medrol -) 40 mg IVPB Q12H [facility] Montelukast Sodium (Singulair -) 10 mg PO HS [facility] Last Admin: 07/20/18 21:53 Dose: 10 mg Nitroglycerin (Nitrostat -) 0.4 mg SL Q5M PRN PRN Reason: FOR CHEST PAIN Nystatin (Nystatin Oral Suspension -) 500,000 units PO BID [facility] Last Admin: 07/21/18 09:46 Dose: 500,000 units Pantoprazole Sodium (Protonix -) 40 mg PO DAILY [facility] Last Admin: 07/21/18 09:47 Dose: 40 mg Potassium Chloride (K-Dur -) 10 meq PO BID [facility] Last Admin: 07/21/18 09:47 Dose: 10 meq Ranitidine HCl (Zantac -) 150 mg PO DAILY [facility] Last Admin: 07/21/18 09:47 Dose: 150 mg Ranolazine (Ranexa -) 500 mg PO BID [facility] Last Admin: 07/21/18 09:46 Dose: 500 mg Sodium Chloride ([place] Nasal [place] -) 2 spray NS TID [facility] Last Admin: 07/21/18 14:32 Dose: 2 spray Tiotropium [place] (Spiriva Respimat) 2 puff IH DAILY [facility] Last Admin: 07/21/18 09:49 Dose: 2 puff Verapamil HCl (Calan Sr -) 240 mg PO BID [facility] Last Admin: 07/21/18 09:48 Dose: 240 mg Gen: less tachypneic at rest Heart: RRR Lung: Less bilateral rhonchi & wheezes Abd: soft, nontender Ext: + edema Laboratory Results - last 24 hr 07/21/18 07/21/18 06:30 06:30 WBC 16.8 H RBC 3.43 L Hgb 10.6 L Hct 31.0 L MCV 90.3 MCH 31.0 MCHC 34.3 RDW 15.3 Plt Count 279 MPV 6.6 L Sodium 135 L Potassium 4.6 Chloride 96 L Carbon Dioxide 33 H Anion Gap 5 L BUN 21 H Creatinine 0.6 Creat Clearance w eGFR > 60 Random Glucose 115 H Calcium 8.0 L A/P Acute COPD Exacerbation Pneumonia Lung Nodules CAD LV Diastolic Dysfunction HTN - Taper Medrol: 40mg q12h - Lasix 40mg OD - inhaled bronchodilators standing and PRN - O2 to keep SpO2 >90% - continue antibiotics - outpatient CT chest to ensure resolution of infiltrates - DVT prophylaxis - No smoking Dr Bueno
--- NOTE | 2018-07-21 17:27 | PN ---
Progress Note, Physician History of Present Illness: Pt's breathing is slightly better. Pt w/o CP, palp, abd pain. - Current Medication List Current Medications: Active Medications Acetaminophen (Tylenol -) 650 mg PO Q6H PRN PRN Reason: FEVER Last Admin: 07/21/18 09:51 Dose: 650 mg Al Hydroxide/Mg Hydroxide (Mylanta Oral Suspension -) 30 ml PO Q6H PRN PRN Reason: DYSPEPSIA Albuterol Sulfate (Ventolin 0.083% Nebulizer Soln -) 1 amp NEB Q4H PRN PRN Reason: SHORT OF BREATH/WHEEZING Last Admin: 07/20/18 03:30 Dose: 1 amp Albuterol Sulfate (Ventolin 0.083% Nebulizer Soln -) 1 amp NEB RQID [facility] Last Admin: 07/21/18 12:13 Dose: 1 amp Alprazolam (Xanax -) 0.25 mg PO Q12H PRN PRN Reason: ANXIETY Last Admin: 07/19/18 21:44 Dose: 0.25 mg Aspirin (Asa -) 81 mg PO DAILY [facility] Last Admin: 07/21/18 09:46 Dose: 81 mg Atorvastatin Calcium (Lipitor -) 80 mg PO HS [facility] Last Admin: 07/20/18 21:53 Dose: 80 mg Azithromycin (Zithromax -) 250 mg PO DAILY [facility] Last Admin: 07/21/18 09:46 Dose: 250 mg Budesonide/Formoterol Fumarate (Symbicort 160/4.5mcg -) 2 puff IH BID [facility] Last Admin: 07/21/18 09:49 Dose: 2 puff Clopidogrel Bisulfate (Plavix -) 75 mg PO DAILY [facility] Last Admin: 07/21/18 09:47 Dose: 75 mg Docusate Sodium (Colace -) 300 mg PO HS [facility] Last Admin: 07/20/18 21:52 Dose: 300 mg Fluticasone Propionate (Flonase -) 1 spray NS BID [facility] Last Admin: 07/21/18 09:48 Dose: 1 spr Folic Acid (Folic Acid -) 1 mg PO DAILY [facility] Last Admin: 07/21/18 09:46 Dose: 1 mg Furosemide (Lasix -) 40 mg PO DAILY [facility] Last Admin: 07/21/18 09:47 Dose: 40 mg Guaifenesin (Robitussin Dm -) 10 ml PO Q6H PRN PRN Reason: COUGH Ceftriaxone Sodium 1 gm/ (Dextrose) 50 mls @ 100 mls/hr IVPB DAILY [facility]; Protocol Last Admin: 07/21/18 09:49 Dose: 100 mls/hr Isosorbide Mononitrate (Imdur -) 30 mg PO BIDISMO [facility] Last Admin: 07/21/18 09:47 Dose: 30 mg Meclizine HCl (Antivert -) 25 mg PO Q6H PRN PRN Reason: VERTIGO Methylprednisolone Sodium Succinate (Solu-Medrol -) 40 mg IVPB BID [facility] Montelukast Sodium (Singulair -) 10 mg PO HS [facility] Last Admin: 07/20/18 21:53 Dose: 10 mg Nitroglycerin (Nitrostat -) 0.4 mg SL Q5M PRN PRN Reason: FOR CHEST PAIN Nystatin (Nystatin Oral Suspension -) 500,000 units PO BID [facility] Last Admin: 07/21/18 09:46 Dose: 500,000 units Pantoprazole Sodium (Protonix -) 40 mg PO DAILY [facility] Last Admin: 07/21/18 09:47 Dose: 40 mg Potassium Chloride (K-Dur -) 10 meq PO BID [facility] Last Admin: 07/21/18 09:47 Dose: 10 meq Ranitidine HCl (Zantac -) 150 mg PO DAILY [facility] Last Admin: 07/21/18 09:47 Dose: 150 mg Ranolazine (Ranexa -) 500 mg PO BID [facility] Last Admin: 07/21/18 09:46 Dose: 500 mg Sodium Chloride ([place] Nasal [place] -) 2 spray NS TID [facility] Last Admin: 07/21/18 14:32 Dose: 2 spray Tiotropium [place] (Spiriva Respimat) 2 puff IH DAILY [facility] Last Admin: 07/21/18 09:49 Dose: 2 puff Verapamil HCl (Calan Sr -) 240 mg PO BID [facility] Last Admin: 07/21/18 09:48 Dose: 240 mg - Objective Vital Signs: Vital Signs Temperature 98.3 F 07/21/18 14:51 Pulse Rate 81 07/21/18 14:51 Respiratory Rate 22 H 07/21/18 14:51 Blood Pressure 119/51 L 07/21/18 14:51 O2 Sat by Pulse Oximetry (%) 99 07/21/18 09:51 Constitutional: Yes: No Distress, Moderate Distress Cardiovascular: Yes: Regular Rate and Rhythm, S1, S2 Respiratory: Yes: Regular, Rhonchi, Wheezes (expiratory) Gastrointestinal: Yes: Normal Bowel Sounds, Soft. No: Tenderness Edema: LLE: Trace, RLE: Trace Neurological: Yes: Alert, Oriented Labs: CBC, BMP 07/21/18 06:30 07/21/18 06:30 Problem List - Problems (1) COPD with acute exacerbation Code(s): J44.1 - CHRONIC OBSTRUCTIVE PULMONARY DISEASE W (ACUTE) EXACERBATION (2) Pneumonia Code(s): J18.9 - PNEUMONIA, UNSPECIFIED ORGANISM (3) Diastolic CHF Code(s): I50.30 - UNSPECIFIED DIASTOLIC (CONGESTIVE) HEART FAILURE (4) Coronary artery disease Code(s): I25.10 - ATHSCL HEART DISEASE OF [place] CORONARY ARTERY W/O ANG PCTRS Qualifiers: Coronary Disease-Associated Artery/Lesion type: [place] artery [place] vs. transplanted heart: [place] heart Associated angina: without angina Qualified Code(s): I25.10 - Atherosclerotic heart disease of [place] coronary artery without angina pectoris (5) HTN (hypertension) Code(s): I10 - ESSENTIAL (PRIMARY) HYPERTENSION Qualifiers: Hypertension type: essential hypertension Qualified Code(s): I10 - Essential (primary) hypertension (6) Hyperlipidemia Code(s): E78.5 - HYPERLIPIDEMIA, UNSPECIFIED Qualifiers: Hyperlipidemia type: pure hypercholesterolemia Qualified Code(s): E78.00 - Pure hypercholesterolemia, unspecified; E78.0 - Pure hypercholesterolemia (7) Mesenteric ischemia Code(s): K55.9 - VASCULAR DISORDER OF INTESTINE, UNSPECIFIED (8) Hyponatremia Code(s): E87.1 - HYPO-OSMOLALITY AND HYPONATREMIA (9) Anemia Code(s): D64.9 - ANEMIA, UNSPECIFIED Assessment/Plan Pt is on Solu-medrol; tappered per Pulmonary Cont Lasix. Cardio and Pulmonary f/u visits are appreciated Stable H/H Stable Na+ Case was d/w pt's nurse. AM labs
[2018-07-21] MEDS: DOCUSATE SODIUM 100 MG CAPSULE (FP) PO SCH (22:12)
[2018-07-21] MEDS: ATORVASTATIN CA 80 MG TABLET (FP) PO SCH (22:23)
[2018-07-21] MEDS: MONTELUKAST NA 10 MG TABLET PO SCH (22:23)
[2018-07-21] MEDS: ALPRAZolam 0.25 MG TABLET PO PRN (22:24)
[2018-07-22] MEDS: SODIUM CHLORIDE NASAL SPRAY 44 ML BOTTLE NS SCH ×3 (06:43→22:40)
[2018-07-22] MEDS: ALBUTEROL SO4 0.083% IH SOL 2.5 MG/3 ML VIAL.NEB. NEB SCH ×4 (07:09→20:40)
[2018-07-22 08:18] LABS: ANION GAP 9 MMOL/L (8-16); BLOOD UREA NITROGEN 24 mg/dL (7-18); CHLORIDE 99 mmol/L (98-107); CO2 29 mmol/L (21-32); CREATININE 0.7 mg/dL (0.55-1.3); GLUCOSE,RANDOM 133 mg/dL (74-106); POTASSIUM 4.5 mmol/L (3.5-5.1); SODIUM 137 mmol/L (136-145)
--- NOTE | 2018-07-22 09:35 | PN ---
Progress Note, Physician History of Present Illness: SOB at rest and on exertion, cough productive yellow sputum and wheezing slowly improving. Dependent LE edema. - Current Medication List Current Medications: Active Medications Acetaminophen (Tylenol -) 650 mg PO Q6H PRN PRN Reason: FEVER Last Admin: 07/21/18 09:51 Dose: 650 mg Al Hydroxide/Mg Hydroxide (Mylanta Oral Suspension -) 30 ml PO Q6H PRN PRN Reason: DYSPEPSIA Albuterol Sulfate (Ventolin 0.083% Nebulizer Soln -) 1 amp NEB Q4H PRN PRN Reason: SHORT OF BREATH/WHEEZING Last Admin: 07/20/18 03:30 Dose: 1 amp Albuterol Sulfate (Ventolin 0.083% Nebulizer Soln -) 1 amp NEB RQID [facility] Last Admin: 07/22/18 07:09 Dose: 1 amp Alprazolam (Xanax -) 0.25 mg PO Q12H PRN PRN Reason: ANXIETY Last Admin: 07/21/18 22:24 Dose: 0.25 mg Aspirin (Asa -) 81 mg PO DAILY [facility] Last Admin: 07/21/18 09:46 Dose: 81 mg Atorvastatin Calcium (Lipitor -) 80 mg PO HS [facility] Last Admin: 07/21/18 22:23 Dose: 80 mg Azithromycin (Zithromax -) 250 mg PO DAILY [facility] Last Admin: 07/21/18 09:46 Dose: 250 mg Budesonide/Formoterol Fumarate (Symbicort 160/4.5mcg -) 2 puff IH BID [facility] Last Admin: 07/21/18 22:25 Dose: 2 puff Clopidogrel Bisulfate (Plavix -) 75 mg PO DAILY [facility] Last Admin: 07/21/18 09:47 Dose: 75 mg Docusate Sodium (Colace -) 300 mg PO HS [facility] Last Admin: 07/21/18 22:12 Dose: 300 mg Fluticasone Propionate (Flonase -) 1 spray NS BID [facility] Last Admin: 07/21/18 22:25 Dose: 1 spr Folic Acid (Folic Acid -) 1 mg PO DAILY [facility] Last Admin: 07/21/18 09:46 Dose: 1 mg Furosemide (Lasix -) 40 mg PO DAILY [facility] Last Admin: 07/21/18 09:47 Dose: 40 mg Guaifenesin (Robitussin Dm -) 10 ml PO Q6H PRN PRN Reason: COUGH Ceftriaxone Sodium 1 gm/ (Dextrose) 50 mls @ 100 mls/hr IVPB DAILY [facility]; Protocol Last Admin: 07/21/18 09:49 Dose: 100 mls/hr Isosorbide Mononitrate (Imdur -) 30 mg PO BIDISMO [facility] Last Admin: 07/21/18 17:44 Dose: 30 mg Meclizine HCl (Antivert -) 25 mg PO Q6H PRN PRN Reason: VERTIGO Methylprednisolone Sodium Succinate (Solu-Medrol -) 40 mg IVPB BID [facility] Last Admin: 07/21/18 22:12 Dose: 40 mg Montelukast Sodium (Singulair -) 10 mg PO HS [facility] Last Admin: 07/21/18 22:23 Dose: 10 mg Nitroglycerin (Nitrostat -) 0.4 mg SL Q5M PRN PRN Reason: FOR CHEST PAIN Nystatin (Nystatin Oral Suspension -) 500,000 units PO BID [facility] Last Admin: 07/21/18 22:23 Dose: 500,000 units Pantoprazole Sodium (Protonix -) 40 mg PO DAILY [facility] Last Admin: 07/21/18 09:47 Dose: 40 mg Potassium Chloride (K-Dur -) 10 meq PO BID [facility] Last Admin: 07/21/18 22:12 Dose: 10 meq Ranitidine HCl (Zantac -) 150 mg PO DAILY [facility] Last Admin: 07/21/18 09:47 Dose: 150 mg Ranolazine (Ranexa -) 500 mg PO BID [facility] Last Admin: 07/21/18 22:12 Dose: 500 mg Sodium Chloride ([place] Nasal [place] -) 2 spray NS TID [facility] Last Admin: 07/22/18 06:43 Dose: 2 spray Tiotropium [place] (Spiriva Respimat) 2 puff IH DAILY [facility] Last Admin: 07/21/18 09:49 Dose: 2 puff Verapamil HCl (Calan Sr -) 240 mg PO BID [facility] Last Admin: 07/21/18 22:24 Dose: 240 mg - Objective Vital Signs: Vital Signs Temperature 98.2 F 07/22/18 06:22 Pulse Rate 70 07/22/18 06:22 Respiratory Rate 20 07/22/18 06:22 Blood Pressure 121/51 L 07/22/18 06:22 O2 Sat by Pulse Oximetry (%) 99 07/21/18 21:00 Constitutional: Yes: No Distress, Calm Neck: Yes: Supple Cardiovascular: Yes: Regular Rate and Rhythm Respiratory: Yes: Regular, Diminished, On Nasal O2 Gastrointestinal: Yes: Normal Bowel Sounds, Soft Edema: Yes Edema: LLE: 1+, RLE: 1+ Labs: CBC, BMP 07/21/18 06:30 07/22/18 06:55 Problem List - Problems (1) COPD exacerbation Code(s): J44.1 - CHRONIC OBSTRUCTIVE PULMONARY DISEASE W (ACUTE) EXACERBATION (2) Shortness of breath Code(s): R06.02 - SHORTNESS OF BREATH (3) Coronary artery disease Code(s): I25.10 - ATHSCL HEART DISEASE OF [place] CORONARY ARTERY W/O ANG PCTRS Qualifiers: Coronary Disease-Associated Artery/Lesion type: [place] artery [place] vs. 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 Acute exacerbation of COPD and PNA improving, pulm nodules 2. Diastolic dysfunction with resolved failure 3. CAD post RI PCI 2011, angina pectoris 4. Systolic murmur, AV sclerosis rule out stenosis 5. HTN/HCVD 6. Hyperlipidemia 7. Bilateral carotid artery disease post right CEA 8. Mesenteric ischemia post SMA bypass 2011 9. PAD post intervention w/o sig stenosis 10. Hyperkalemia 11. H/o left frontal stroke 12. H/o Renal Failure (required temporary dialysis 2011) PLAN: 1. Continue Calan SR 240 bid with caution 2. Continue Imdur 30 bid and Ranexa 500 bid 3. Previously on Diovan 40 qd and Bystolic 5 qd since d/miranda 4. Continue Lipitor 80 qhs 5. Increased oral Lasix dose 40 po qd 6. Continue Plavix 75 qd and ASA 81 qd per neuro recs 7. 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 BD, empiric abx, wean medrol 40 q8 with GI protection, Singulair, O2 to keep Spo2 >90%, DVT prophylaxis 9. Outpt f/u of CT chest to ensure resolution, declines compression therapy with SONNY wraps
[2018-07-22] MEDS ORDERED: PT OWN MED DRAWER 7, Y5N ONE (09:58)
[2018-07-22] MEDS ORDERED: cefTRIAXone SODIUM 1 GM VIAL ONE (09:59)
[2018-07-22] MEDS ORDERED: DEXTROSE 5%-WATER - 50 ML IVPB ONE (09:59)
[2018-07-22] MEDS: BUDESONIDE/FORMETEROL FUMARATE 160/4.5 mcg INHALER IH SCH ×2 (10:06→22:40)
[2018-07-22] MEDS: FLUTICASONE PROP 0.05% 16 GM NASAL SPRAY NS SCH ×2 (10:07→22:39)
[2018-07-22] MEDS: methylPREDNISolone NA SUCC 40 MG/1 ML VIAL IVPB SCH ×2 (10:07→22:38)
[2018-07-22] MEDS: TIOTROPIUM BROMIDE 2.5 MCG (SPIRIVA) RESPIMAT INHALER IH SCH (10:07)
[2018-07-22] MEDS: POTASSIUM CHLORIDE TABS 10 MEQ TABLET.ER (FP) PO SCH ×2 (10:08→22:39)
[2018-07-22] MEDS: FOLIC ACID 1 MG TABLET (FP) PO SCH (10:08)
[2018-07-22] MEDS: CLOPIDOGREL BISULFATE 75 MG TABLET (FP) PO SCH (10:08)
[2018-07-22] MEDS: RANOLAZINE E.R. 500 MG TABLET (FP) PO SCH ×2 (10:08→22:38)
[2018-07-22] MEDS: FUROSEMIDE 40 MG TABLET (FP) PO SCH (10:08)
--- NOTE | 2018-07-22 10:08 | PN ---
Progress Note, Physician History of Present Illness: Pt's breathing is slightly better, feels that sputum is easier to bring up. Pt w/o fever, CP, palp, abd pain. - Current Medication List Current Medications: Active Medications Acetaminophen (Tylenol -) 650 mg PO Q6H PRN PRN Reason: FEVER Last Admin: 07/21/18 09:51 Dose: 650 mg Al Hydroxide/Mg Hydroxide (Mylanta Oral Suspension -) 30 ml PO Q6H PRN PRN Reason: DYSPEPSIA Albuterol Sulfate (Ventolin 0.083% Nebulizer Soln -) 1 amp NEB Q4H PRN PRN Reason: SHORT OF BREATH/WHEEZING Last Admin: 07/20/18 03:30 Dose: 1 amp Albuterol Sulfate (Ventolin 0.083% Nebulizer Soln -) 1 amp NEB RQID [facility] Last Admin: 07/22/18 07:09 Dose: 1 amp Alprazolam (Xanax -) 0.25 mg PO Q12H PRN PRN Reason: ANXIETY Last Admin: 07/21/18 22:24 Dose: 0.25 mg Aspirin (Asa -) 81 mg PO DAILY [facility] Last Admin: 07/21/18 09:46 Dose: 81 mg Atorvastatin Calcium (Lipitor -) 80 mg PO HS [facility] Last Admin: 07/21/18 22:23 Dose: 80 mg Azithromycin (Zithromax -) 250 mg PO DAILY [facility] Last Admin: 07/21/18 09:46 Dose: 250 mg Budesonide/Formoterol Fumarate (Symbicort 160/4.5mcg -) 2 puff IH BID [facility] Last Admin: 07/21/18 22:25 Dose: 2 puff Clopidogrel Bisulfate (Plavix -) 75 mg PO DAILY [facility] Last Admin: 07/21/18 09:47 Dose: 75 mg Docusate Sodium (Colace -) 300 mg PO HS [facility] Last Admin: 07/21/18 22:12 Dose: 300 mg Fluticasone Propionate (Flonase -) 1 spray NS BID [facility] Last Admin: 07/21/18 22:25 Dose: 1 spr Folic Acid (Folic Acid -) 1 mg PO DAILY [facility] Last Admin: 07/21/18 09:46 Dose: 1 mg Furosemide (Lasix -) 40 mg PO DAILY [facility] Last Admin: 07/21/18 09:47 Dose: 40 mg Guaifenesin (Robitussin Dm -) 10 ml PO Q6H PRN PRN Reason: COUGH Ceftriaxone Sodium 1 gm/ (Dextrose) 50 mls @ 100 mls/hr IVPB DAILY [facility]; Protocol Last Admin: 07/21/18 09:49 Dose: 100 mls/hr Isosorbide Mononitrate (Imdur -) 30 mg PO BIDISMO [facility] Last Admin: 07/21/18 17:44 Dose: 30 mg Meclizine HCl (Antivert -) 25 mg PO Q6H PRN PRN Reason: VERTIGO Methylprednisolone Sodium Succinate (Solu-Medrol -) 40 mg IVPB BID [facility] Last Admin: 07/21/18 22:12 Dose: 40 mg Montelukast Sodium (Singulair -) 10 mg PO HS [facility] Last Admin: 07/21/18 22:23 Dose: 10 mg Nitroglycerin (Nitrostat -) 0.4 mg SL Q5M PRN PRN Reason: FOR CHEST PAIN Nystatin (Nystatin Oral Suspension -) 500,000 units PO BID [facility] Last Admin: 07/21/18 22:23 Dose: 500,000 units Pantoprazole Sodium (Protonix -) 40 mg PO DAILY [facility] Last Admin: 07/21/18 09:47 Dose: 40 mg Potassium Chloride (K-Dur -) 10 meq PO BID [facility] Last Admin: 07/21/18 22:12 Dose: 10 meq Ranitidine HCl (Zantac -) 150 mg PO DAILY [facility] Last Admin: 07/21/18 09:47 Dose: 150 mg Ranolazine (Ranexa -) 500 mg PO BID [facility] Last Admin: 07/21/18 22:12 Dose: 500 mg Sodium Chloride ([place] Nasal [place] -) 2 spray NS TID [facility] Last Admin: 07/22/18 06:43 Dose: 2 spray Tiotropium [place] (Spiriva Respimat) 2 puff IH DAILY [facility] Last Admin: 07/21/18 09:49 Dose: 2 puff Verapamil HCl (Calan Sr -) 240 mg PO BID [facility] Last Admin: 07/21/18 22:24 Dose: 240 mg - Objective Vital Signs: Vital Signs Temperature 98.2 F 07/22/18 06:22 Pulse Rate 70 07/22/18 06:22 Respiratory Rate 20 07/22/18 06:22 Blood Pressure 121/51 L 07/22/18 06:22 O2 Sat by Pulse Oximetry (%) 99 07/21/18 21:00 Constitutional: Yes: No Distress, Calm Cardiovascular: Yes: Regular Rate and Rhythm, S1, S2 Respiratory: Yes: Regular, Rhonchi, Wheezes (expiratory) Gastrointestinal: Yes: Normal Bowel Sounds, Soft. No: Tenderness Edema: Yes Edema: LLE: Trace, RLE: Trace Neurological: Yes: Alert, Oriented Labs: CBC, BMP 07/21/18 06:30 07/22/18 06:55 Problem List - Problems (1) COPD with acute exacerbation Code(s): J44.1 - CHRONIC OBSTRUCTIVE PULMONARY DISEASE W (ACUTE) EXACERBATION (2) Pneumonia Code(s): J18.9 - PNEUMONIA, UNSPECIFIED ORGANISM (3) Diastolic CHF Code(s): I50.30 - UNSPECIFIED DIASTOLIC (CONGESTIVE) HEART FAILURE (4) Coronary artery disease Code(s): I25.10 - ATHSCL HEART DISEASE OF [place] CORONARY ARTERY W/O ANG PCTRS Qualifiers: Coronary Disease-Associated Artery/Lesion type: [place] artery [place] vs. transplanted heart: [place] heart Associated angina: without angina Qualified Code(s): I25.10 - Atherosclerotic heart disease of [place] coronary artery without angina pectoris (5) HTN (hypertension) Code(s): I10 - ESSENTIAL (PRIMARY) HYPERTENSION Qualifiers: Hypertension type: essential hypertension Qualified Code(s): I10 - Essential (primary) hypertension (6) Hyperlipidemia Code(s): E78.5 - HYPERLIPIDEMIA, UNSPECIFIED Qualifiers: Hyperlipidemia type: pure hypercholesterolemia Qualified Code(s): E78.00 - Pure hypercholesterolemia, unspecified; E78.0 - Pure hypercholesterolemia (7) Mesenteric ischemia Code(s): K55.9 - VASCULAR DISORDER OF INTESTINE, UNSPECIFIED (8) Hyponatremia Code(s): E87.1 - HYPO-OSMOLALITY AND HYPONATREMIA (9) Anemia Code(s): D64.9 - ANEMIA, UNSPECIFIED (10) Leukocytosis Assessment/Plan: likely secondary to steroids Code(s): D72.829 - ELEVATED WHITE BLOOD CELL COUNT, UNSPECIFIED Assessment/Plan Pt is on Solu-medrol; to be tapered per Pulmonary Cont Lasix. Cardio and Pulmonary f/u visits are appreciated Stable H/H Na+ level is improving Case was d/w pt's nurse. AM labs
[2018-07-22] MEDS: PANTOPRAZOLE 40 MG TABLET (FP) PO SCH (10:09)
[2018-07-22] MEDS: AZITHROMYCIN 250 MG TABLET PO SCH (10:09)
[2018-07-22] MEDS: RANITIDINE HCL 150 MG TABLET (FP) PO SCH (10:09)
[2018-07-22] MEDS: VERAPAMIL HCL 240 MG E.R. TABLET (FP) PO SCH ×2 (10:09→22:37)
[2018-07-22] MEDS: ISOSORBIDE MONONITRATE 30 MG TAB.SR.24H (FP) PO SCH ×2 (10:09→16:40)
[2018-07-22] MEDS: ASPIRIN 81 MG CHEWABLE TABLETS PO SCH (10:09)
[2018-07-22] MEDS: CEFTRIAXONE 1 GM in DEXTROSE 5%-WATER - 50 ML IVPB SCH (10:09)
[2018-07-22] MEDS: NYSTATIN 500,000 UNITS/5 ML SUSPENSION PO SCH ×2 (10:15→22:37)
--- NOTE | 2018-07-22 13:01 | PN ---
Progress Note (short form) - Note Progress Note: PULMONARY SUBJECTIVE IMPROVEMENT VSS Gen: less tachypneic at rest Heart: RRR Lung: Less bilateral rhonchi & wheezes Abd: soft, nontender Ext: + edema LABS/MEDS/NOTES/IMAGES REVIEWED a/e copd Pneumonia Lung Nodules CAD LV Diastolic Dysfunction HTN - Taper Medrol: 40mg q12h - Lasix 40mg OD - inhaled bronchodilators standing and PRN - O2 to keep SpO2 >90% - continue antibiotics - outpatient CT chest to ensure resolution of infiltrates - DVT prophylaxis - smoking cessation Padmini SANDOVAL MD
[2018-07-22 16:20] VITALS: BMI 29.7
[2018-07-22] MEDS: DOCUSATE SODIUM 100 MG CAPSULE (FP) PO SCH (22:36)
[2018-07-22] MEDS: MONTELUKAST NA 10 MG TABLET PO SCH (22:37)
[2018-07-22] MEDS: ALPRAZolam 0.25 MG TABLET PO PRN (22:38)
[2018-07-22] MEDS: ATORVASTATIN CA 80 MG TABLET (FP) PO SCH (22:38)
[2018-07-23] MEDS: SODIUM CHLORIDE NASAL SPRAY 44 ML BOTTLE NS SCH ×3 (07:05→21:09)
[2018-07-23] MEDS: ALBUTEROL SO4 0.083% IH SOL 2.5 MG/3 ML VIAL.NEB. NEB SCH ×4 (07:30→19:57)
[2018-07-23 08:27] LABS: HEMOGLOBIN 10.3 GM/dL (10.7-15.3); MCH 29.5 pg (25.7-33.7); MCHC 32.2 g/dl (32.0-36.0); MEAN CELL VOLUME 91.5 fl (80-96); MEAN PLT VOLUME 6.3 fl (7.5-11.1); PLATELET COUNT 212 K/MM3 (134-434); RDW 15.7 % (11.6-15.6); WHITE BLOOD COUNT 12.2 K/mm3 (4.0-10.0)
[2018-07-23 08:54] LABS: ANION GAP 5 MMOL/L (8-16); BLOOD UREA NITROGEN 21 mg/dL (7-18); CALCIUM 8.1 mg/dL (8.5-10.1); CHLORIDE 98 mmol/L (98-107); CO2 33 mmol/L (21-32); CREATININE 0.7 mg/dL (0.55-1.3); GLUCOSE,RANDOM 128 mg/dL (74-106); POTASSIUM 4.5 mmol/L (3.5-5.1); SODIUM 136 mmol/L (136-145)
[2018-07-23] MEDS ORDERED: PT OWN MED DRAWER 7, Y5N ONE (09:39)
[2018-07-23] MEDS: FUROSEMIDE 40 MG TABLET (FP) PO SCH (10:04)
[2018-07-23] MEDS: RANITIDINE HCL 150 MG TABLET (FP) PO SCH (10:04)
[2018-07-23] MEDS: PANTOPRAZOLE 40 MG TABLET (FP) PO SCH (10:04)
[2018-07-23] MEDS: AZITHROMYCIN 250 MG TABLET PO SCH (10:04)
[2018-07-23] MEDS: POTASSIUM CHLORIDE TABS 10 MEQ TABLET.ER (FP) PO SCH ×2 (10:04→21:07)
[2018-07-23] MEDS: RANOLAZINE E.R. 500 MG TABLET (FP) PO SCH ×2 (10:04→21:07)
[2018-07-23] MEDS: NYSTATIN 500,000 UNITS/5 ML SUSPENSION PO SCH ×2 (10:04→21:07)
[2018-07-23] MEDS: FOLIC ACID 1 MG TABLET (FP) PO SCH (10:04)
[2018-07-23] MEDS: ISOSORBIDE MONONITRATE 30 MG TAB.SR.24H (FP) PO SCH ×2 (10:04→17:27)
[2018-07-23] MEDS: methylPREDNISolone NA SUCC 40 MG/1 ML VIAL IVPB SCH ×2 (10:04→21:07)
[2018-07-23] MEDS: VERAPAMIL HCL 240 MG E.R. TABLET (FP) PO SCH ×2 (10:04→21:08)
[2018-07-23] MEDS: ASPIRIN 81 MG CHEWABLE TABLETS PO SCH (10:04)
[2018-07-23] MEDS: CLOPIDOGREL BISULFATE 75 MG TABLET (FP) PO SCH (10:04)
[2018-07-23] MEDS: FLUTICASONE PROP 0.05% 16 GM NASAL SPRAY NS SCH ×2 (10:07→21:09)
[2018-07-23] MEDS: BUDESONIDE/FORMETEROL FUMARATE 160/4.5 mcg INHALER IH SCH ×2 (10:08→21:09)
[2018-07-23] MEDS: TIOTROPIUM BROMIDE 2.5 MCG (SPIRIVA) RESPIMAT INHALER IH SCH (10:08)
--- NOTE | 2018-07-23 12:13 | PN ---
Progress Note (short form) - Note Progress Note: PULMONARY SUBJECTIVE IMPROVEMENT VSS Gen: less tachypneic at rest Heart: RRR Lung: Less bilateral rhonchi & wheezes Abd: soft, nontender Ext: + edema LABS/MEDS/NOTES/IMAGES REVIEWED a/e copd Pneumonia Lung Nodules CAD LV Diastolic Dysfunction HTN - Taper Medrol: 30mg q12h - Lasix 40mg OD - inhaled bronchodilators standing and PRN - O2 to keep SpO2 >90% - continue antibiotics - outpatient CT chest to ensure resolution of infiltrates - DVT prophylaxis - smoking cessation Padmini SANDOVAL MD
--- NOTE | 2018-07-23 12:55 | PN ---
Progress Note, Physician Chief Complaint: in bed feels a little better less SOB steroids tapered by pulmonary - Current Medication List Current Medications: Active Medications Acetaminophen (Tylenol -) 650 mg PO Q6H PRN PRN Reason: FEVER Last Admin: 07/21/18 09:51 Dose: 650 mg Al Hydroxide/Mg Hydroxide (Mylanta Oral Suspension -) 30 ml PO Q6H PRN PRN Reason: DYSPEPSIA Albuterol Sulfate (Ventolin 0.083% Nebulizer Soln -) 1 amp NEB Q4H PRN PRN Reason: SHORT OF BREATH/WHEEZING Last Admin: 07/20/18 03:30 Dose: 1 amp Albuterol Sulfate (Ventolin 0.083% Nebulizer Soln -) 1 amp NEB RQID [facility] Last Admin: 07/23/18 11:25 Dose: 1 amp Alprazolam (Xanax -) 0.25 mg PO Q12H PRN PRN Reason: ANXIETY Last Admin: 07/22/18 22:38 Dose: 0.25 mg Aspirin (Asa -) 81 mg PO DAILY [facility] Last Admin: 07/23/18 10:04 Dose: 81 mg Atorvastatin Calcium (Lipitor -) 80 mg PO HS [facility] Last Admin: 07/22/18 22:38 Dose: 80 mg Azithromycin (Zithromax -) 250 mg PO DAILY [facility] Last Admin: 07/23/18 10:04 Dose: 250 mg Budesonide/Formoterol Fumarate (Symbicort 160/4.5mcg -) 2 puff IH BID [facility] Last Admin: 07/23/18 10:08 Dose: 2 puff Clopidogrel Bisulfate (Plavix -) 75 mg PO DAILY [facility] Last Admin: 07/23/18 10:04 Dose: 75 mg Docusate Sodium (Colace -) 300 mg PO HS [facility] Last Admin: 07/22/18 22:36 Dose: 300 mg Fluticasone Propionate (Flonase -) 1 spray NS BID [facility] Last Admin: 07/23/18 10:07 Dose: 1 spray Folic Acid (Folic Acid -) 1 mg PO DAILY [facility] Last Admin: 07/23/18 10:04 Dose: 1 mg Furosemide (Lasix -) 40 mg PO DAILY [facility] Last Admin: 07/23/18 10:04 Dose: 40 mg Guaifenesin (Robitussin Dm -) 10 ml PO Q6H PRN PRN Reason: COUGH Isosorbide Mononitrate (Imdur -) 30 mg PO BIDISMO [facility] Last Admin: 07/23/18 10:04 Dose: 30 mg Meclizine HCl (Antivert -) 25 mg PO Q6H PRN PRN Reason: VERTIGO Methylprednisolone Sodium Succinate (Solu-Medrol -) 30 mg IVPB BID [facility] Montelukast Sodium (Singulair -) 10 mg PO HS [facility] Last Admin: 07/22/18 22:37 Dose: 10 mg Nitroglycerin (Nitrostat -) 0.4 mg SL Q5M PRN PRN Reason: FOR CHEST PAIN Nystatin (Nystatin Oral Suspension -) 500,000 units PO BID [facility] Last Admin: 07/23/18 10:04 Dose: 500,000 units Pantoprazole Sodium (Protonix -) 40 mg PO DAILY [facility] Last Admin: 07/23/18 10:04 Dose: 40 mg Potassium Chloride (K-Dur -) 10 meq PO BID [facility] Last Admin: 07/23/18 10:04 Dose: 10 meq Ranitidine HCl (Zantac -) 150 mg PO DAILY [facility] Last Admin: 07/23/18 10:04 Dose: 150 mg Ranolazine (Ranexa -) 500 mg PO BID [facility] Last Admin: 07/23/18 10:04 Dose: 500 mg Sodium Chloride ([employer] [place] Nasal [place] -) 2 spray NS TID [facility] Last Admin: 07/23/18 07:05 Dose: 2 spray Tiotropium [place] (Spiriva Respimat) 2 puff IH DAILY [facility] Last Admin: 07/23/18 10:08 Dose: 2 puff Verapamil HCl (Calan Sr -) 240 mg PO BID [facility] Last Admin: 07/23/18 10:04 Dose: 240 mg - Objective Vital Signs: Vital Signs Temperature 97.9 F 07/23/18 10:00 Pulse Rate 82 07/23/18 10:00 Respiratory Rate 18 07/23/18 10:00 Blood Pressure 124/60 07/23/18 10:00 O2 Sat by Pulse Oximetry (%) 98 07/23/18 09:00 Constitutional: Yes: No Distress, Calm Eyes: Yes: Conjunctiva Clear HENT: Yes: Atraumatic Neck: Yes: Supple Cardiovascular: Yes: Regular Rate and Rhythm Respiratory: Yes: Wheezes Gastrointestinal: Yes: Soft. No: Distention Genitourinary: No: CVA Tenderness - Left, CVA Tenderness - Right Musculoskeletal: No: Joint Stiffness, Joint Swelling Extremities: No: Cold, Cool, Cyanosis Edema: No Integumentary: No: Rash, Venous Stasis Changes Neurological: Yes: WNL, Alert, Oriented ...Motor Strength: WNL Psychiatric: Yes: WNL, Alert, Oriented. No: Agitated, Suicidal Ideation Labs: CBC, BMP 07/23/18 07:15 07/23/18 07:15 - ....Imaging Other: Report Reviewed Assessment/Plan The patient is a 63-year-old female with a past medical history significant for CAD, HTN, PA s/p angioplasty, COPD, diastolic CHF, PVD and mesenteric ischemia s /p SMA bypass (2011) s/p acute COPD exac on chronic COPD and PNA IV steroids - taper as tolerated increased lasix po, f/u labs O2, nebs pulmonary f/u, cardiology f/u falls DVT PFX ambulate d/w pt and staff
[2018-07-23] MEDS: ALPRAZolam 0.25 MG TABLET PO PRN (21:07)
[2018-07-23] MEDS: DOCUSATE SODIUM 100 MG CAPSULE (FP) PO SCH (21:07)
[2018-07-23] MEDS: MONTELUKAST NA 10 MG TABLET PO SCH (21:07)
[2018-07-23] MEDS: ATORVASTATIN CA 80 MG TABLET (FP) PO SCH (21:07)
[2018-07-24] MEDS: SODIUM CHLORIDE NASAL SPRAY 44 ML BOTTLE NS SCH ×3 (06:05→21:17)
[2018-07-24] MEDS: ALBUTEROL SO4 0.083% IH SOL 2.5 MG/3 ML VIAL.NEB. NEB SCH ×4 (07:30→19:27)
--- NOTE | 2018-07-24 09:49 | PN ---
Progress Note, Physician Chief Complaint: Events noted Feels better History of Present Illness: Patient was seen and examined. Awake and alert. Chart was reviewed Denies chest pain. Intermittent SOB and cough - Current Medication List Current Medications: Active Medications Acetaminophen (Tylenol -) 650 mg PO Q6H PRN PRN Reason: FEVER Last Admin: 07/21/18 09:51 Dose: 650 mg Al Hydroxide/Mg Hydroxide (Mylanta Oral Suspension -) 30 ml PO Q6H PRN PRN Reason: DYSPEPSIA Albuterol Sulfate (Ventolin 0.083% Nebulizer Soln -) 1 amp NEB Q4H PRN PRN Reason: SHORT OF BREATH/WHEEZING Last Admin: 07/20/18 03:30 Dose: 1 amp Albuterol Sulfate (Ventolin 0.083% Nebulizer Soln -) 1 amp NEB RQID [facility] Last Admin: 07/24/18 07:30 Dose: 1 amp Alprazolam (Xanax -) 0.25 mg PO Q12H PRN PRN Reason: ANXIETY Last Admin: 07/23/18 21:07 Dose: 0.25 mg Aspirin (Asa -) 81 mg PO DAILY [facility] Last Admin: 07/23/18 10:04 Dose: 81 mg Atorvastatin Calcium (Lipitor -) 80 mg PO HS [facility] Last Admin: 07/23/18 21:07 Dose: 80 mg Azithromycin (Zithromax -) 250 mg PO DAILY [facility] Last Admin: 07/23/18 10:04 Dose: 250 mg Budesonide/Formoterol Fumarate (Symbicort 160/4.5mcg -) 2 puff IH BID [facility] Last Admin: 07/23/18 21:09 Dose: 2 puff Clopidogrel Bisulfate (Plavix -) 75 mg PO DAILY [facility] Last Admin: 07/23/18 10:04 Dose: 75 mg Docusate Sodium (Colace -) 300 mg PO HS [facility] Last Admin: 07/23/18 21:07 Dose: 300 mg Fluticasone Propionate (Flonase -) 1 spray NS BID [facility] Last Admin: 07/23/18 21:09 Dose: 1 spray Folic Acid (Folic Acid -) 1 mg PO DAILY [facility] Last Admin: 07/23/18 10:04 Dose: 1 mg Furosemide (Lasix -) 40 mg PO DAILY [facility] Last Admin: 07/23/18 10:04 Dose: 40 mg Guaifenesin (Robitussin Dm -) 10 ml PO Q6H PRN PRN Reason: COUGH Isosorbide Mononitrate (Imdur -) 30 mg PO BIDISMO [facility] Last Admin: 07/23/18 17:27 Dose: 30 mg Meclizine HCl (Antivert -) 25 mg PO Q6H PRN PRN Reason: VERTIGO Methylprednisolone Sodium Succinate (Solu-Medrol -) 30 mg IVPB BID [facility] Last Admin: 07/23/18 21:07 Dose: 30 mg Montelukast Sodium (Singulair -) 10 mg PO HS [facility] Last Admin: 07/23/18 21:07 Dose: 10 mg Nitroglycerin (Nitrostat -) 0.4 mg SL Q5M PRN PRN Reason: FOR CHEST PAIN Nystatin (Nystatin Oral Suspension -) 500,000 units PO BID [facility] Last Admin: 07/23/18 21:07 Dose: 500,000 units Pantoprazole Sodium (Protonix -) 40 mg PO DAILY [facility] Last Admin: 07/23/18 10:04 Dose: 40 mg Potassium Chloride (K-Dur -) 10 meq PO BID [facility] Last Admin: 07/23/18 21:07 Dose: 10 meq Ranitidine HCl (Zantac -) 150 mg PO DAILY [facility] Last Admin: 07/23/18 10:04 Dose: 150 mg Ranolazine (Ranexa -) 500 mg PO BID [facility] Last Admin: 07/23/18 21:07 Dose: 500 mg Sodium Chloride ([place] Nasal [place] -) 2 spray NS TID [facility] Last Admin: 07/24/18 06:05 Dose: 2 spray Tiotropium [place] (Spiriva Respimat) 2 puff IH DAILY [facility] Last Admin: 07/23/18 10:08 Dose: 2 puff Verapamil HCl (Calan Sr -) 240 mg PO BID [facility] Last Admin: 07/23/18 21:08 Dose: 240 mg - Objective Vital Signs: Vital Signs Temperature 98.5 F 07/23/18 21:03 Pulse Rate 83 07/23/18 21:03 Respiratory Rate 18 07/23/18 21:03 Blood Pressure 121/57 L 07/23/18 21:03 O2 Sat by Pulse Oximetry (%) 98 07/23/18 21:00 HENT: Yes: Atraumatic Neck: Yes: Supple Cardiovascular: Yes: Regular Rate and Rhythm, S1, S2 Respiratory: Yes: Cough, Diminished Gastrointestinal: Yes: Normal Bowel Sounds, Soft. 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 transplanted heart: [place] heart Associated angina: without angina Qualified Code(s): I25.10 - Atherosclerotic heart disease of [place] coronary artery without angina pectoris (10) Diastolic dysfunction Code(s): I51.9 - HEART DISEASE, UNSPECIFIED (11) H/O carotid endarterectomy Code(s): Z98.890 - OTHER SPECIFIED POSTPROCEDURAL STATES (12) HTN (hypertension) Code(s): I10 - ESSENTIAL (PRIMARY) HYPERTENSION Qualifiers: Hypertension type: essential hypertension Qualified Code(s): I10 - Essential (primary) hypertension (13) History of myocardial infarction Code(s): I25.2 - OLD MYOCARDIAL INFARCTION (14) Hyperlipidemia Code(s): E78.5 - HYPERLIPIDEMIA, UNSPECIFIED Qualifiers: Hyperlipidemia type: pure hypercholesterolemia Qualified Code(s): E78.00 - Pure hypercholesterolemia, unspecified; E78.0 - Pure hypercholesterolemia (15) Peripheral artery disease Code(s): I73.9 - PERIPHERAL VASCULAR DISEASE, UNSPECIFIED (16) Pneumonia Code(s): J18.9 - PNEUMONIA, UNSPECIFIED ORGANISM Assessment/Plan 1. Acute exacerbation of COPD and pneumonia improving and presence of pulmonary nodules 2. Diastolic dysfunction 3. CAD post OR PCI, angina pectoris 4. Systolic murmur- AV sclerosis 5. HTN/HCVD 6. Hyperlipidemia 7. Bilateral carotid artery disease post right CEA 8. Mesenteric ischemia post SMA bypass 9. PAD post intervention w/o significant stenosis 10. Hyperkalemia 11. History of left frontal stroke 12. History of Renal Failure (required temporary dialysis 2011) PLAN: 1. Continue Calan SR 240 mg BID as tolerated 2. Continue Imdur 30 mg BID and Ranexa 500 mg BID 3. Off Diovan and Bystolic 4. Continue Lipitor 80 mg QHS 5. Continue Lasix 40 mg QD 6. Continue Plavix and ASA 7. Follow up with Dr. 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 Bronchodilator, empiric antibiotic, wean steroids, O2 to keep Spo2 >90% and DVT prophylaxis Gerard Nichols MD
--- NOTE | 2018-07-24 10:12 | PN ---
Progress Note, Physician Chief Complaint: still wheezing but feeling better overall; walked few times small trips in the hallway - Current Medication List Current Medications: Active Medications Acetaminophen (Tylenol -) 650 mg PO Q6H PRN PRN Reason: FEVER Last Admin: 07/21/18 09:51 Dose: 650 mg Al Hydroxide/Mg Hydroxide (Mylanta Oral Suspension -) 30 ml PO Q6H PRN PRN Reason: DYSPEPSIA Albuterol Sulfate (Ventolin 0.083% Nebulizer Soln -) 1 amp NEB Q4H PRN PRN Reason: SHORT OF BREATH/WHEEZING Last Admin: 07/20/18 03:30 Dose: 1 amp Albuterol Sulfate (Ventolin 0.083% Nebulizer Soln -) 1 amp NEB RQID [facility] Last Admin: 07/24/18 07:30 Dose: 1 amp Alprazolam (Xanax -) 0.25 mg PO Q12H PRN PRN Reason: ANXIETY Last Admin: 07/23/18 21:07 Dose: 0.25 mg Aspirin (Asa -) 81 mg PO DAILY [facility] Last Admin: 07/23/18 10:04 Dose: 81 mg Atorvastatin Calcium (Lipitor -) 80 mg PO HS [facility] Last Admin: 07/23/18 21:07 Dose: 80 mg Azithromycin (Zithromax -) 250 mg PO DAILY [facility] Last Admin: 07/23/18 10:04 Dose: 250 mg Budesonide/Formoterol Fumarate (Symbicort 160/4.5mcg -) 2 puff IH BID [facility] Last Admin: 07/23/18 21:09 Dose: 2 puff Clopidogrel Bisulfate (Plavix -) 75 mg PO DAILY [facility] Last Admin: 07/23/18 10:04 Dose: 75 mg Docusate Sodium (Colace -) 300 mg PO HS [facility] Last Admin: 07/23/18 21:07 Dose: 300 mg Fluticasone Propionate (Flonase -) 1 spray NS BID [facility] Last Admin: 07/23/18 21:09 Dose: 1 spray Folic Acid (Folic Acid -) 1 mg PO DAILY [facility] Last Admin: 07/23/18 10:04 Dose: 1 mg Furosemide (Lasix -) 40 mg PO DAILY [facility] Last Admin: 07/23/18 10:04 Dose: 40 mg Guaifenesin (Robitussin Dm -) 10 ml PO Q6H PRN PRN Reason: COUGH Isosorbide Mononitrate (Imdur -) 30 mg PO BIDISMO [facility] Last Admin: 07/23/18 17:27 Dose: 30 mg Meclizine HCl (Antivert -) 25 mg PO Q6H PRN PRN Reason: VERTIGO Methylprednisolone Sodium Succinate (Solu-Medrol -) 30 mg IVPB BID [facility] Last Admin: 07/23/18 21:07 Dose: 30 mg Montelukast Sodium (Singulair -) 10 mg PO HS [facility] Last Admin: 07/23/18 21:07 Dose: 10 mg Nitroglycerin (Nitrostat -) 0.4 mg SL Q5M PRN PRN Reason: FOR CHEST PAIN Nystatin (Nystatin Oral Suspension -) 500,000 units PO BID [facility] Last Admin: 07/23/18 21:07 Dose: 500,000 units Pantoprazole Sodium (Protonix -) 40 mg PO DAILY [facility] Last Admin: 07/23/18 10:04 Dose: 40 mg Potassium Chloride (K-Dur -) 10 meq PO BID [facility] Last Admin: 07/23/18 21:07 Dose: 10 meq Ranitidine HCl (Zantac -) 150 mg PO DAILY [facility] Last Admin: 07/23/18 10:04 Dose: 150 mg Ranolazine (Ranexa -) 500 mg PO BID [facility] Last Admin: 07/23/18 21:07 Dose: 500 mg Sodium Chloride ([place] Nasal [place] -) 2 spray NS TID [facility] Last Admin: 07/24/18 06:05 Dose: 2 spray Tiotropium [place] (Spiriva Respimat) 2 puff IH DAILY [facility] Last Admin: 07/23/18 10:08 Dose: 2 puff Verapamil HCl (Calan Sr -) 240 mg PO BID [facility] Last Admin: 07/23/18 21:08 Dose: 240 mg - Objective Vital Signs: Vital Signs Temperature 98.5 F 07/23/18 21:03 Pulse Rate 83 07/23/18 21:03 Respiratory Rate 18 07/23/18 21:03 Blood Pressure 121/57 L 07/23/18 21:03 O2 Sat by Pulse Oximetry (%) 98 07/23/18 21:00 Constitutional: Yes: No Distress, Calm Eyes: Yes: Conjunctiva Clear HENT: Yes: Atraumatic Neck: Yes: Supple Cardiovascular: Yes: Regular Rate and Rhythm Respiratory: Yes: Wheezes (bilat posterior) Gastrointestinal: Yes: Soft. No: Distention Genitourinary: No: CVA Tenderness - Left, CVA Tenderness - Right Musculoskeletal: No: Joint Stiffness, Joint Swelling Extremities: No: Cold, Cool, Cyanosis Edema: No Integumentary: No: Rash, Venous Stasis Changes Neurological: Yes: WNL, Alert, Oriented ...Motor Strength: WNL Psychiatric: Yes: WNL, Alert, Oriented. No: Agitated Labs: CBC, BMP 07/23/18 07:15 07/23/18 07:15 - ....Imaging Other: Report Reviewed Assessment/Plan The patient is a 63-year-old female with a past medical history significant for CAD, HTN, [place] s/p angioplasty, COPD, diastolic CHF, PVD and mesenteric ischemia s /p SMA bypass (2011) s/p acute COPD exac on chronic COPD and PNA IV steroids - taper as tolerated increased lasix po, f/u labs O2, nebs pulmonary f/u, cardiology f/u falls DVT PFX ambulate d/w pt and staff
[2018-07-24] MEDS ORDERED: PT OWN MED DRAWER 7, Y5N ONE (11:16)
[2018-07-24] MEDS: CLOPIDOGREL BISULFATE 75 MG TABLET (FP) PO SCH (11:18)
[2018-07-24] MEDS: NYSTATIN 500,000 UNITS/5 ML SUSPENSION PO SCH ×2 (11:18→21:18)
[2018-07-24] MEDS: PANTOPRAZOLE 40 MG TABLET (FP) PO SCH (11:19)
[2018-07-24] MEDS: POTASSIUM CHLORIDE TABS 10 MEQ TABLET.ER (FP) PO SCH ×2 (11:19→21:18)
[2018-07-24] MEDS: RANITIDINE HCL 150 MG TABLET (FP) PO SCH (11:19)
[2018-07-24] MEDS: methylPREDNISolone NA SUCC 40 MG/1 ML VIAL IVPB SCH ×2 (11:19→21:17)
[2018-07-24] MEDS: RANOLAZINE E.R. 500 MG TABLET (FP) PO SCH ×2 (11:19→21:18)
[2018-07-24] MEDS: FUROSEMIDE 40 MG TABLET (FP) PO SCH (11:19)
[2018-07-24] MEDS: ASPIRIN 81 MG CHEWABLE TABLETS PO SCH (11:19)
[2018-07-24] MEDS: ISOSORBIDE MONONITRATE 30 MG TAB.SR.24H (FP) PO SCH ×2 (11:19→17:29)
[2018-07-24] MEDS: FOLIC ACID 1 MG TABLET (FP) PO SCH (11:19)
[2018-07-24] MEDS: AZITHROMYCIN 250 MG TABLET PO SCH (11:19)
[2018-07-24] MEDS: VERAPAMIL HCL 240 MG E.R. TABLET (FP) PO SCH ×2 (11:20→21:18)
[2018-07-24] MEDS: TIOTROPIUM BROMIDE 2.5 MCG (SPIRIVA) RESPIMAT INHALER IH SCH (11:23)
[2018-07-24] MEDS: BUDESONIDE/FORMETEROL FUMARATE 160/4.5 mcg INHALER IH SCH ×2 (11:23→21:17)
[2018-07-24] MEDS: FLUTICASONE PROP 0.05% 16 GM NASAL SPRAY NS SCH ×2 (11:23→21:17)
--- NOTE | 2018-07-24 12:41 | PN ---
Progress Note (short form) - Note Progress Note: PULMONARY SUBJECTIVE IMPROVEMENT VSS Gen: less tachypneic at rest Heart: RRR Lung: Less bilateral rhonchi & wheezes Abd: soft, nontender Ext: + edema LABS/MEDS/NOTES/IMAGES REVIEWED a/e copd Pneumonia Lung Nodules CAD LV Diastolic Dysfunction HTN - Taper Medrol - Lasix 40mg OD - inhaled bronchodilators standing and PRN - O2 to keep SpO2 >90% - continue antibiotics - outpatient CT chest to ensure resolution of infiltrates - DVT prophylaxis - smoking cessation Padmini SANDOVAL MD
[2018-07-24] MEDS: MONTELUKAST NA 10 MG TABLET PO SCH (21:18)
[2018-07-24] MEDS: ALPRAZolam 0.25 MG TABLET PO PRN (21:18)
[2018-07-24] MEDS: DOCUSATE SODIUM 100 MG CAPSULE (FP) PO SCH (21:18)
[2018-07-24] MEDS: ATORVASTATIN CA 80 MG TABLET (FP) PO SCH (21:18)
[2018-07-25] MEDS: SODIUM CHLORIDE NASAL SPRAY 44 ML BOTTLE NS SCH ×3 (06:04→22:00)
--- NOTE | 2018-07-25 06:44 | PN ---
Progress Note, Physician Chief Complaint: still coughing and occasional wheezing walked in hallway few times but felt some BUI - Current Medication List Current Medications: Active Medications Acetaminophen (Tylenol -) 650 mg PO Q6H PRN PRN Reason: FEVER Last Admin: 07/21/18 09:51 Dose: 650 mg Al Hydroxide/Mg Hydroxide (Mylanta Oral Suspension -) 30 ml PO Q6H PRN PRN Reason: DYSPEPSIA Albuterol Sulfate (Ventolin 0.083% Nebulizer Soln -) 1 amp NEB Q4H PRN PRN Reason: SHORT OF BREATH/WHEEZING Last Admin: 07/20/18 03:30 Dose: 1 amp Albuterol Sulfate (Ventolin 0.083% Nebulizer Soln -) 1 amp NEB RQID [facility] Last Admin: 07/24/18 19:27 Dose: 1 amp Alprazolam (Xanax -) 0.25 mg PO Q12H PRN PRN Reason: ANXIETY Last Admin: 07/24/18 21:18 Dose: 0.25 mg Aspirin (Asa -) 81 mg PO DAILY [facility] Last Admin: 07/24/18 11:19 Dose: 81 mg Atorvastatin Calcium (Lipitor -) 80 mg PO HS [facility] Last Admin: 07/24/18 21:18 Dose: 80 mg Azithromycin (Zithromax -) 250 mg PO DAILY [facility] Last Admin: 07/24/18 11:19 Dose: 250 mg Budesonide/Formoterol Fumarate (Symbicort 160/4.5mcg -) 2 puff IH BID [facility] Last Admin: 07/24/18 21:17 Dose: 2 puff Clopidogrel Bisulfate (Plavix -) 75 mg PO DAILY [facility] Last Admin: 07/24/18 11:18 Dose: 75 mg Docusate Sodium (Colace -) 300 mg PO HS [facility] Last Admin: 07/24/18 21:18 Dose: 300 mg Fluticasone Propionate (Flonase -) 1 spray NS BID [facility] Last Admin: 07/24/18 21:17 Dose: 1 spray Folic Acid (Folic Acid -) 1 mg PO DAILY [facility] Last Admin: 07/24/18 11:19 Dose: 1 mg Furosemide (Lasix -) 40 mg PO DAILY [facility] Last Admin: 07/24/18 11:19 Dose: 40 mg Guaifenesin (Robitussin Dm -) 10 ml PO Q6H PRN PRN Reason: COUGH Isosorbide Mononitrate (Imdur -) 30 mg PO BIDISMO [facility] Last Admin: 07/24/18 17:29 Dose: 30 mg Meclizine HCl (Antivert -) 25 mg PO Q6H PRN PRN Reason: VERTIGO Methylprednisolone Sodium Succinate (Solu-Medrol -) 20 mg IVPB BID [facility] Last Admin: 07/24/18 21:17 Dose: 20 mg Montelukast Sodium (Singulair -) 10 mg PO HS [facility] Last Admin: 07/24/18 21:18 Dose: 10 mg Nitroglycerin (Nitrostat -) 0.4 mg SL Q5M PRN PRN Reason: FOR CHEST PAIN Nystatin (Nystatin Oral Suspension -) 500,000 units PO BID [facility] Last Admin: 07/24/18 21:18 Dose: 500,000 units Pantoprazole Sodium (Protonix -) 40 mg PO DAILY [facility] Last Admin: 07/24/18 11:19 Dose: 40 mg Potassium Chloride (K-Dur -) 10 meq PO BID [facility] Last Admin: 07/24/18 21:18 Dose: 10 meq Ranitidine HCl (Zantac -) 150 mg PO DAILY [facility] Last Admin: 07/24/18 11:19 Dose: 150 mg Ranolazine (Ranexa -) 500 mg PO BID [facility] Last Admin: 07/24/18 21:18 Dose: 500 mg Sodium Chloride ([place] Nasal [place] -) 2 spray NS TID [facility] Last Admin: 07/25/18 06:04 Dose: 2 spray Tiotropium [place] (Spiriva Respimat) 2 puff IH DAILY [facility] Last Admin: 07/24/18 11:23 Dose: 2 puff Verapamil HCl (Calan Sr -) 240 mg PO BID [facility] Last Admin: 07/24/18 21:18 Dose: 240 mg - Objective Vital Signs: Vital Signs Temperature 98 F 07/25/18 06:00 Pulse Rate 75 07/25/18 06:00 Respiratory Rate 19 07/25/18 06:00 Blood Pressure 120/48 L 07/25/18 06:00 O2 Sat by Pulse Oximetry (%) 98 07/24/18 21:00 Constitutional: Yes: No Distress, Anxious Eyes: Yes: Conjunctiva Clear HENT: Yes: Atraumatic Neck: Yes: Supple Cardiovascular: Yes: Regular Rate and Rhythm Respiratory: Yes: Rales Gastrointestinal: Yes: Soft. No: Distention Genitourinary: No: CVA Tenderness - Left, CVA Tenderness - Right Musculoskeletal: No: Joint Stiffness, Joint Swelling Extremities: No: Cold, Cool, Cyanosis Edema: No Integumentary: No: Rash, Venous Stasis Changes Neurological: Yes: WNL, Alert, Oriented ...Motor Strength: WNL Psychiatric: Yes: WNL, Alert, Oriented. No: Agitated, Suicidal Ideation Labs: CBC, BMP 07/23/18 07:15 07/23/18 07:15 - ....Imaging Other: Report Reviewed Assessment/Plan The patient is a 63-year-old female with a past medical history significant for CAD, HTN, [place] s/p angioplasty, COPD, diastolic CHF, PVD and mesenteric ischemia s /p SMA bypass (2011) s/p acute COPD exac on chronic COPD and PNA IV steroids - continue same dose lasix po, f/u labs O2, nebs pulmonary f/u, cardiology f/u falls DVT PFX ambulate d/w pt and staff
[2018-07-25] MEDS: ALBUTEROL SO4 0.083% IH SOL 2.5 MG/3 ML VIAL.NEB. NEB SCH ×4 (07:15→19:22)
[2018-07-25 07:49] LABS: BASO % 0.1 % (0-2.0); HEMATOCRIT 31.8 % (32.4-45.2); HEMOGLOBIN 10.5 GM/dL (10.7-15.3); LYMPH % 5.4 % (8-40); MCH 29.7 pg (25.7-33.7); MCHC 32.8 g/dl (32.0-36.0); MEAN CELL VOLUME 90.3 fl (80-96); MEAN PLT VOLUME 6.4 fl (7.5-11.1); MONO % 4.1 % (3.8-10.2); NEUT % 90.4 % (42.8-82.8); PLATELET COUNT 194 K/MM3 (134-434); RBC 3.52 M/mm3 (3.60-5.2); RDW 15.8 % (11.6-15.6); WHITE BLOOD COUNT 9.8 K/mm3 (4.0-10.0)
[2018-07-25 08:54] LABS: ALBUMIN 2.7 g/dl (3.4-5.0); ALK PHOS 62 U/L (45-117); ANION GAP 8 MMOL/L (8-16); BILIRUBIN,TOTAL 0.4 mg/dL (0.2-1); BLOOD UREA NITROGEN 20 mg/dL (7-18); CALCIUM 8.2 mg/dL (8.5-10.1); CHLORIDE 97 mmol/L (98-107); CO2 31 mmol/L (21-32); CREATININE 0.6 mg/dL (0.55-1.3); GLUCOSE,RANDOM 127 mg/dL (74-106); POTASSIUM 4.5 mmol/L (3.5-5.1); SGOT/AST 8 U/L (15-37); SGPT/ALT 44 U/L (13-61); SODIUM 136 mmol/L (136-145); TOT PROT 5.4 g/dl (6.4-8.2)
--- NOTE | 2018-07-25 09:52 | PN ---
Progress Note, Physician Chief Complaint: Events noted Feels better History of Present Illness: Patient was seen and examined. Awake and alert. Chart was reviewed Denies chest pain. Intermittent SOB and cough - Current Medication List Current Medications: Active Medications Acetaminophen (Tylenol -) 650 mg PO Q6H PRN PRN Reason: FEVER Last Admin: 07/21/18 09:51 Dose: 650 mg Al Hydroxide/Mg Hydroxide (Mylanta Oral Suspension -) 30 ml PO Q6H PRN PRN Reason: DYSPEPSIA Albuterol Sulfate (Ventolin 0.083% Nebulizer Soln -) 1 amp NEB RQID [facility] Last Admin: 07/25/18 07:15 Dose: 1 amp Alprazolam (Xanax -) 0.25 mg PO Q12H PRN PRN Reason: ANXIETY Last Admin: 07/24/18 21:18 Dose: 0.25 mg Aspirin (Asa -) 81 mg PO DAILY [facility] Last Admin: 07/24/18 11:19 Dose: 81 mg Atorvastatin Calcium (Lipitor -) 80 mg PO HS [facility] Last Admin: 07/24/18 21:18 Dose: 80 mg Azithromycin (Zithromax -) 250 mg PO DAILY [facility] Last Admin: 07/24/18 11:19 Dose: 250 mg Budesonide/Formoterol Fumarate (Symbicort 160/4.5mcg -) 2 puff IH BID [facility] Last Admin: 07/24/18 21:17 Dose: 2 puff Clopidogrel Bisulfate (Plavix -) 75 mg PO DAILY [facility] Last Admin: 07/24/18 11:18 Dose: 75 mg Docusate Sodium (Colace -) 300 mg PO HS [facility] Last Admin: 07/24/18 21:18 Dose: 300 mg Fluticasone Propionate (Flonase -) 1 spray NS BID [facility] Last Admin: 07/24/18 21:17 Dose: 1 spray Folic Acid (Folic Acid -) 1 mg PO DAILY [facility] Last Admin: 07/24/18 11:19 Dose: 1 mg Furosemide (Lasix -) 40 mg PO DAILY [facility] Last Admin: 07/24/18 11:19 Dose: 40 mg Guaifenesin (Robitussin Dm -) 10 ml PO Q6H PRN PRN Reason: COUGH Isosorbide Mononitrate (Imdur -) 30 mg PO BIDISMO [facility] Last Admin: 07/24/18 17:29 Dose: 30 mg Meclizine HCl (Antivert -) 25 mg PO Q6H PRN PRN Reason: VERTIGO Methylprednisolone Sodium Succinate (Solu-Medrol -) 20 mg IVPB BID [facility] Last Admin: 07/24/18 21:17 Dose: 20 mg Montelukast Sodium (Singulair -) 10 mg PO HS [facility] Last Admin: 07/24/18 21:18 Dose: 10 mg Nitroglycerin (Nitrostat -) 0.4 mg SL Q5M PRN PRN Reason: FOR CHEST PAIN Nystatin (Nystatin Oral Suspension -) 500,000 units PO BID [facility] Last Admin: 07/24/18 21:18 Dose: 500,000 units Pantoprazole Sodium (Protonix -) 40 mg PO DAILY [facility] Last Admin: 07/24/18 11:19 Dose: 40 mg Potassium Chloride (K-Dur -) 10 meq PO BID [facility] Last Admin: 07/24/18 21:18 Dose: 10 meq Ranitidine HCl (Zantac -) 150 mg PO DAILY [facility] Last Admin: 07/24/18 11:19 Dose: 150 mg Ranolazine (Ranexa -) 500 mg PO BID [facility] Last Admin: 07/24/18 21:18 Dose: 500 mg Sodium Chloride ([place] Nasal [place] -) 2 spray NS TID [facility] Last Admin: 07/25/18 06:04 Dose: 2 spray Tiotropium [place] (Spiriva Respimat) 2 puff IH DAILY [facility] Last Admin: 07/24/18 11:23 Dose: 2 puff Verapamil HCl (Calan Sr -) 240 mg PO BID [facility] Last Admin: 07/24/18 21:18 Dose: 240 mg - Objective Vital Signs: Vital Signs Temperature 98 F 07/25/18 06:00 Pulse Rate 75 07/25/18 06:00 Respiratory Rate 19 07/25/18 06:00 Blood Pressure 120/48 L 07/25/18 06:00 O2 Sat by Pulse Oximetry (%) 98 07/24/18 21:00 Eyes: Yes: PERRL HENT: Yes: Atraumatic Neck: Yes: Supple Cardiovascular: Yes: Regular Rate and Rhythm, S1, S2 Respiratory: Yes: Rhonchi Gastrointestinal: Yes: Normal Bowel Sounds, Soft. 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 transplanted heart: [place] heart Associated angina: without angina Qualified Code(s): I25.10 - Atherosclerotic heart disease of [place] coronary artery without angina pectoris (10) Diastolic dysfunction Code(s): I51.9 - HEART DISEASE, UNSPECIFIED (11) H/O carotid endarterectomy Code(s): Z98.890 - OTHER SPECIFIED POSTPROCEDURAL STATES (12) HTN (hypertension) Code(s): I10 - ESSENTIAL (PRIMARY) HYPERTENSION Qualifiers: Hypertension type: essential hypertension Qualified Code(s): I10 - Essential (primary) hypertension (13) History of myocardial infarction Code(s): I25.2 - OLD MYOCARDIAL INFARCTION (14) Hyperlipidemia Code(s): E78.5 - HYPERLIPIDEMIA, UNSPECIFIED Qualifiers: Hyperlipidemia type: pure hypercholesterolemia Qualified Code(s): E78.00 - Pure hypercholesterolemia, unspecified; E78.0 - Pure hypercholesterolemia (15) Peripheral artery disease Code(s): I73.9 - PERIPHERAL VASCULAR DISEASE, UNSPECIFIED (16) Pneumonia Code(s): J18.9 - PNEUMONIA, UNSPECIFIED ORGANISM Assessment/Plan 1. Acute exacerbation of COPD and pneumonia improving and presence of pulmonary nodules 2. Diastolic dysfunction 3. CAD post [place] PCI, angina pectoris 4. Systolic murmur - AV sclerosis 5. HTN/HCVD 6. Hyperlipidemia 7. Bilateral carotid artery disease post right CEA 8. Mesenteric ischemia post SMA bypass 9. PAD post intervention w/o significant stenosis 10. Hyperkalemia 11. History of left frontal stroke 12. History of Renal Failure (required temporary dialysis 2011) PLAN: 1. Continue Calan SR 240 mg BID as tolerated 2. Continue Imdur 30 mg BID and Ranexa 500 mg BID 3. Off Diovan and Bystolic 4. Continue Lipitor 80 mg QHS 5. Continue Lasix 40 mg QD 6. Continue Plavix and ASA 7. 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
[2018-07-25] MEDS ORDERED: PT OWN MED DRAWER 7, Y5N ONE (10:42)
[2018-07-25] MEDS: methylPREDNISolone NA SUCC 40 MG/1 ML VIAL IVPB SCH ×2 (10:47→21:59)
[2018-07-25] MEDS: FOLIC ACID 1 MG TABLET (FP) PO SCH (10:49)
[2018-07-25] MEDS: POTASSIUM CHLORIDE TABS 10 MEQ TABLET.ER (FP) PO SCH ×2 (10:49→21:59)
[2018-07-25] MEDS: CLOPIDOGREL BISULFATE 75 MG TABLET (FP) PO SCH (10:49)
[2018-07-25] MEDS: FUROSEMIDE 40 MG TABLET (FP) PO SCH (10:49)
[2018-07-25] MEDS: ASPIRIN 81 MG CHEWABLE TABLETS PO SCH (10:49)
[2018-07-25] MEDS: RANITIDINE HCL 150 MG TABLET (FP) PO SCH (10:49)
[2018-07-25] MEDS: RANOLAZINE E.R. 500 MG TABLET (FP) PO SCH ×2 (10:49→21:59)
[2018-07-25] MEDS: AZITHROMYCIN 250 MG TABLET PO SCH (10:50)
[2018-07-25] MEDS: PANTOPRAZOLE 40 MG TABLET (FP) PO SCH (10:50)
[2018-07-25] MEDS: NYSTATIN 500,000 UNITS/5 ML SUSPENSION PO SCH ×2 (10:50→21:59)
[2018-07-25] MEDS: ISOSORBIDE MONONITRATE 30 MG TAB.SR.24H (FP) PO SCH ×2 (10:51→18:38)
[2018-07-25] MEDS: VERAPAMIL HCL 240 MG E.R. TABLET (FP) PO SCH ×2 (10:51→21:58)
[2018-07-25] MEDS: FLUTICASONE PROP 0.05% 16 GM NASAL SPRAY NS SCH ×2 (10:53→21:58)
[2018-07-25] MEDS: TIOTROPIUM BROMIDE 2.5 MCG (SPIRIVA) RESPIMAT INHALER IH SCH (10:53)
[2018-07-25] MEDS: BUDESONIDE/FORMETEROL FUMARATE 160/4.5 mcg INHALER IH SCH ×2 (10:53→21:58)
--- NOTE | 2018-07-25 13:30 | PN ---
Progress Note, Physician History of Present Illness: PULMONARY ALERT,STILL CONGESTED ,+ SOB,+ COUGH - Current Medication List Current Medications: Active Medications Acetaminophen (Tylenol -) 650 mg PO Q6H PRN PRN Reason: FEVER Last Admin: 07/21/18 09:51 Dose: 650 mg Al Hydroxide/Mg Hydroxide (Mylanta Oral Suspension -) 30 ml PO Q6H PRN PRN Reason: DYSPEPSIA Albuterol Sulfate (Ventolin 0.083% Nebulizer Soln -) 1 amp NEB RQID [facility] Last Admin: 07/25/18 11:44 Dose: 1 amp Alprazolam (Xanax -) 0.25 mg PO Q12H PRN PRN Reason: ANXIETY Last Admin: 07/24/18 21:18 Dose: 0.25 mg Aspirin (Asa -) 81 mg PO DAILY [facility] Last Admin: 07/25/18 10:49 Dose: 81 mg Atorvastatin Calcium (Lipitor -) 80 mg PO HS [facility] Last Admin: 07/24/18 21:18 Dose: 80 mg Azithromycin (Zithromax -) 250 mg PO DAILY [facility] Last Admin: 07/25/18 10:50 Dose: 250 mg Budesonide/Formoterol Fumarate (Symbicort 160/4.5mcg -) 2 puff IH BID [facility] Last Admin: 07/25/18 10:53 Dose: 2 puff Clopidogrel Bisulfate (Plavix -) 75 mg PO DAILY [facility] Last Admin: 07/25/18 10:49 Dose: 75 mg Docusate Sodium (Colace -) 300 mg PO HS [facility] Last Admin: 07/24/18 21:18 Dose: 300 mg Fluticasone Propionate (Flonase -) 1 spray NS BID [facility] Last Admin: 07/25/18 10:53 Dose: 1 spray Folic Acid (Folic Acid -) 1 mg PO DAILY [facility] Last Admin: 07/25/18 10:49 Dose: 1 mg Furosemide (Lasix -) 40 mg PO DAILY [facility] Last Admin: 07/25/18 10:49 Dose: 40 mg Guaifenesin (Robitussin Dm -) 10 ml PO Q6H PRN PRN Reason: COUGH Isosorbide Mononitrate (Imdur -) 30 mg PO BIDISMO [facility] Last Admin: 07/25/18 10:51 Dose: 30 mg Meclizine HCl (Antivert -) 25 mg PO Q6H PRN PRN Reason: VERTIGO Methylprednisolone Sodium Succinate (Solu-Medrol -) 20 mg IVPB BID [facility] Last Admin: 07/25/18 10:47 Dose: 20 mg Montelukast Sodium (Singulair -) 10 mg PO HS [facility] Last Admin: 07/24/18 21:18 Dose: 10 mg Nitroglycerin (Nitrostat -) 0.4 mg SL Q5M PRN PRN Reason: FOR CHEST PAIN Nystatin (Nystatin Oral Suspension -) 500,000 units PO BID [facility] Last Admin: 07/25/18 10:50 Dose: 500,000 units Pantoprazole Sodium (Protonix -) 40 mg PO DAILY [facility] Last Admin: 07/25/18 10:50 Dose: 40 mg Potassium Chloride (K-Dur -) 10 meq PO BID [facility] Last Admin: 07/25/18 10:49 Dose: 10 meq Ranitidine HCl (Zantac -) 150 mg PO DAILY [facility] Last Admin: 07/25/18 10:49 Dose: 150 mg Ranolazine (Ranexa -) 500 mg PO BID [facility] Last Admin: 07/25/18 10:49 Dose: 500 mg Sodium Chloride ([place] Nasal [place] -) 2 spray NS TID [facility] Last Admin: 07/25/18 06:04 Dose: 2 spray Tiotropium [place] (Spiriva Respimat) 2 puff IH DAILY [facility] Last Admin: 07/25/18 10:53 Dose: 2 puff Verapamil HCl (Calan Sr -) 240 mg PO BID [facility] Last Admin: 07/25/18 10:51 Dose: 240 mg - Objective Vital Signs: Vital Signs Temperature 98.5 F 07/25/18 10:00 Pulse Rate 81 07/25/18 10:00 Respiratory Rate 19 07/25/18 10:00 Blood Pressure 138/57 L 07/25/18 10:00 O2 Sat by Pulse Oximetry (%) 98 07/25/18 09:00 Constitutional: Yes: Well Nourished, Calm Eyes: Yes: WNL HENT: Yes: WNL Neck: Yes: WNL Cardiovascular: Yes: Regular Rate and Rhythm, S1, S2 Respiratory: Yes: Rhonchi, Wheezes (BILATERAL RHONCHI AND WHEEZES) Gastrointestinal: Yes: Normal Bowel Sounds, Soft Extremities: Yes: WNL Edema: No Labs: CBC, BMP 12/31/18 06:25 07/25/18 06:25 Problem List - Problems (1) COPD exacerbation Code(s): J44.1 - CHRONIC OBSTRUCTIVE PULMONARY DISEASE W (ACUTE) EXACERBATION (2) Shortness of breath Code(s): R06.02 - SHORTNESS OF BREATH (3) ASHD (arteriosclerotic heart disease) Code(s): I25.10 - ATHSCL HEART DISEASE OF [place] CORONARY ARTERY W/O ANG PCTRS (4) 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 transplanted heart: [place] heart Associated angina: without angina Qualified Code(s): I25.10 - Atherosclerotic heart disease of [place] coronary artery without angina pectoris (7) Diastolic dysfunction Code(s): I51.9 - HEART DISEASE, UNSPECIFIED (8) HTN (hypertension) Code(s): I10 - ESSENTIAL (PRIMARY) HYPERTENSION Qualifiers: Hypertension type: essential hypertension Qualified Code(s): I10 - Essential (primary) hypertension (9) History of myocardial infarction Code(s): I25.2 - OLD MYOCARDIAL INFARCTION (10) Lung nodule < 6cm on CT Code(s): R91.1 - SOLITARY PULMONARY NODULE Assessment/Plan IMP DYSPNEA ACUTE EXACERBATION OF COPD PNEUMONIA H/O PULMONARY NODULES ASHD S/P OH HTN DIASTOLIC HF PLAN CONTINUE MEDROL INHALED BRONCHODILATORS O2 PFTS OUTPATIENT AMBULATORY O2 SAT PRIOR TO DISCHARGE F/U CHEST CT OUTPATIENT 6 WKS TO CONFIRM RESOLUTION RML CONSOLIDATION DR LEÓN Problem List - Problems (1) COPD exacerbation Code(s): J44.1 - CHRONIC OBSTRUCTIVE PULMONARY DISEASE W (ACUTE) EXACERBATION (2) Shortness of breath Code(s): R06.02 - SHORTNESS OF BREATH (3) ASHD (arteriosclerotic heart disease) Code(s): I25.10 - ATHSCL HEART DISEASE OF [place] CORONARY ARTERY W/O ANG PCTRS (4) 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 transplanted heart: [place] heart Associated angina: without angina Qualified Code(s): I25.10 - Atherosclerotic heart disease of [place] coronary artery without angina pectoris (7) Diastolic dysfunction Code(s): I51.9 - HEART DISEASE, UNSPECIFIED (8) HTN (hypertension) Code(s): I10 - ESSENTIAL (PRIMARY) HYPERTENSION Qualifiers: Hypertension type: essential hypertension Qualified Code(s): I10 - Essential (primary) hypertension (9) History of myocardial infarction Code(s): I25.2 - OLD MYOCARDIAL INFARCTION (10) Lung nodule < 6cm on CT Code(s): R91.1 - SOLITARY PULMONARY NODULE
[2018-07-25] MEDS: DOCUSATE SODIUM 100 MG CAPSULE (FP) PO SCH (21:58)
[2018-07-25] MEDS: ATORVASTATIN CA 80 MG TABLET (FP) PO SCH (21:59)
[2018-07-25] MEDS: MONTELUKAST NA 10 MG TABLET PO SCH (21:59)
[2018-07-25] MEDS: ALPRAZolam 0.25 MG TABLET PO PRN (21:59)
[2018-07-26] MEDS: SODIUM CHLORIDE NASAL SPRAY 44 ML BOTTLE NS SCH ×3 (06:03→22:49)
[2018-07-26] MEDS: ALBUTEROL SO4 0.083% IH SOL 2.5 MG/3 ML VIAL.NEB. NEB SCH ×4 (08:23→20:24)
--- NOTE | 2018-07-26 08:59 | PN ---
Progress Note, Physician Chief Complaint: feels the same still with some coughing and wheezing walked to the bathroom and in hallway - Current Medication List Current Medications: Active Medications Acetaminophen (Tylenol -) 650 mg PO Q6H PRN PRN Reason: FEVER Last Admin: 07/21/18 09:51 Dose: 650 mg Al Hydroxide/Mg Hydroxide (Mylanta Oral Suspension -) 30 ml PO Q6H PRN PRN Reason: DYSPEPSIA Albuterol Sulfate (Ventolin 0.083% Nebulizer Soln -) 1 amp NEB RQID [facility] Last Admin: 07/26/18 08:23 Dose: 1 amp Alprazolam (Xanax -) 0.25 mg PO Q12H PRN PRN Reason: ANXIETY Last Admin: 07/25/18 21:59 Dose: 0.25 mg Aspirin (Asa -) 81 mg PO DAILY [facility] Last Admin: 07/25/18 10:49 Dose: 81 mg Atorvastatin Calcium (Lipitor -) 80 mg PO HS [facility] Last Admin: 07/25/18 21:59 Dose: 80 mg Azithromycin (Zithromax -) 250 mg PO DAILY [facility] Last Admin: 07/25/18 10:50 Dose: 250 mg Budesonide/Formoterol Fumarate (Symbicort 160/4.5mcg -) 2 puff IH BID [facility] Last Admin: 07/25/18 21:58 Dose: 2 puff Clopidogrel Bisulfate (Plavix -) 75 mg PO DAILY [facility] Last Admin: 07/25/18 10:49 Dose: 75 mg Docusate Sodium (Colace -) 300 mg PO HS [facility] Last Admin: 07/25/18 21:58 Dose: 300 mg Fluticasone Propionate (Flonase -) 1 spray NS BID [facility] Last Admin: 07/25/18 21:58 Dose: 1 spray Folic Acid (Folic Acid -) 1 mg PO DAILY [facility] Last Admin: 07/25/18 10:49 Dose: 1 mg Furosemide (Lasix -) 40 mg PO DAILY [facility] Last Admin: 07/25/18 10:49 Dose: 40 mg Guaifenesin (Robitussin Dm -) 10 ml PO Q6H PRN PRN Reason: COUGH Isosorbide Mononitrate (Imdur -) 30 mg PO BIDISMO [facility] Last Admin: 07/25/18 18:38 Dose: 30 mg Meclizine HCl (Antivert -) 25 mg PO Q6H PRN PRN Reason: VERTIGO Methylprednisolone Sodium Succinate (Solu-Medrol -) 20 mg IVPB BID [facility] Last Admin: 07/25/18 21:59 Dose: 20 mg Montelukast Sodium (Singulair -) 10 mg PO HS [facility] Last Admin: 07/25/18 21:59 Dose: 10 mg Nitroglycerin (Nitrostat -) 0.4 mg SL Q5M PRN PRN Reason: FOR CHEST PAIN Nystatin (Nystatin Oral Suspension -) 500,000 units PO BID [facility] Last Admin: 07/25/18 21:59 Dose: 500,000 units Pantoprazole Sodium (Protonix -) 40 mg PO DAILY [facility] Last Admin: 07/25/18 10:50 Dose: 40 mg Potassium Chloride (K-Dur -) 10 meq PO BID [facility] Last Admin: 07/25/18 21:59 Dose: 10 meq Ranitidine HCl (Zantac -) 150 mg PO DAILY [facility] Last Admin: 07/25/18 10:49 Dose: 150 mg Ranolazine (Ranexa -) 500 mg PO BID [facility] Last Admin: 07/25/18 21:59 Dose: 500 mg Sodium Chloride ([place] Nasal [place] -) 2 spray NS TID [facility] Last Admin: 07/26/18 06:03 Dose: 2 spray Tiotropium [place] (Spiriva Respimat) 2 puff IH DAILY [facility] Last Admin: 07/25/18 10:53 Dose: 2 puff Verapamil HCl (Calan Sr -) 240 mg PO BID [facility] Last Admin: 07/25/18 21:58 Dose: 240 mg - Objective Vital Signs: Vital Signs Temperature 98.5 F 07/25/18 22:00 Pulse Rate 86 07/25/18 22:00 Respiratory Rate 20 07/25/18 22:00 Blood Pressure 133/64 07/25/18 22:00 O2 Sat by Pulse Oximetry (%) 98 07/25/18 21:00 Constitutional: Yes: No Distress, Anxious Eyes: Yes: Conjunctiva Clear HENT: Yes: Atraumatic Neck: Yes: Supple Cardiovascular: Yes: Regular Rate and Rhythm Respiratory: Yes: Rales, Wheezes Gastrointestinal: Yes: Soft. No: Distention, Tenderness Genitourinary: No: CVA Tenderness - Left, CVA Tenderness - Right, Hematuria Musculoskeletal: No: Joint Stiffness, Joint Swelling Extremities: No: Cold, Cool, Cyanosis Edema: No Integumentary: No: Rash, Venous Stasis Changes Neurological: Yes: WNL, Alert, Oriented ...Motor Strength: WNL Psychiatric: Yes: WNL, Alert, Oriented. No: Agitated, Suicidal Ideation Labs: CBC, BMP 07/25/18 06:25 07/25/18 06:25 - ....Imaging Other: Report Reviewed Assessment/Plan The patient is a 63-year-old female with a past medical history significant for CAD, HTN, [place] s/p angioplasty, COPD, diastolic CHF, PVD and mesenteric ischemia s /p SMA bypass (2011) s/p acute COPD exac on chronic COPD and PNA IV steroids - continue same dose lasix po, f/u labs O2, nebs pulmonary f/u, cardiology f/u falls DVT PFX ambulate d/w pt and staff
[2018-07-26] MEDS ORDERED: PT OWN MED DRAWER 7, Y5N ONE ×2 (10:29→22:02)
[2018-07-26] MEDS: BUDESONIDE/FORMETEROL FUMARATE 160/4.5 mcg INHALER IH SCH ×2 (10:33→22:48)
[2018-07-26] MEDS: TIOTROPIUM BROMIDE 2.5 MCG (SPIRIVA) RESPIMAT INHALER IH SCH (10:33)
[2018-07-26] MEDS: FLUTICASONE PROP 0.05% 16 GM NASAL SPRAY NS SCH ×2 (10:33→22:49)
[2018-07-26] MEDS: RANOLAZINE E.R. 500 MG TABLET (FP) PO SCH ×2 (10:34→22:46)
[2018-07-26] MEDS: PANTOPRAZOLE 40 MG TABLET (FP) PO SCH (10:34)
[2018-07-26] MEDS: VERAPAMIL HCL 240 MG E.R. TABLET (FP) PO SCH ×2 (10:34→22:48)
[2018-07-26] MEDS: FUROSEMIDE 40 MG TABLET (FP) PO SCH (10:34)
[2018-07-26] MEDS: AZITHROMYCIN 250 MG TABLET PO SCH (10:34)
[2018-07-26] MEDS: ASPIRIN 81 MG CHEWABLE TABLETS PO SCH (10:34)
[2018-07-26] MEDS: methylPREDNISolone NA SUCC 40 MG/1 ML VIAL IVPB SCH ×2 (10:34→22:46)
[2018-07-26] MEDS: POTASSIUM CHLORIDE TABS 10 MEQ TABLET.ER (FP) PO SCH ×2 (10:34→22:46)
[2018-07-26] MEDS: RANITIDINE HCL 150 MG TABLET (FP) PO SCH (10:35)
[2018-07-26] MEDS: NYSTATIN 500,000 UNITS/5 ML SUSPENSION PO SCH ×2 (10:35→22:46)
[2018-07-26] MEDS: CLOPIDOGREL BISULFATE 75 MG TABLET (FP) PO SCH (10:35)
[2018-07-26] MEDS: ISOSORBIDE MONONITRATE 30 MG TAB.SR.24H (FP) PO SCH ×2 (10:35→17:09)
[2018-07-26] MEDS: FOLIC ACID 1 MG TABLET (FP) PO SCH (10:35)
--- NOTE | 2018-07-26 12:14 | PN ---
Progress Note (short form) - Note Progress Note: PULMONARY SUBJECTIVE IMPROVEMENT VSS Gen: less tachypneic at rest Heart: RRR Lung: Less bilateral rhonchi & wheezes Abd: soft, nontender Ext: + edema LABS/MEDS/NOTES/IMAGES REVIEWED a/e copd Pneumonia Lung Nodules CAD LV Diastolic Dysfunction HTN - Taper Medrol - Lasix 40mg OD - inhaled bronchodilators standing and PRN - O2 to keep SpO2 >90% - continue antibiotics - outpatient CT chest to ensure resolution of infiltrates - DVT prophylaxis - smoking cessation - no objection to continuing treatment as an outpatient Padmini SANDOVAL MD
--- NOTE | 2018-07-26 13:16 | PN ---
Progress Note, Physician Chief Complaint: Events noted Feels better History of Present Illness: Patient was seen and examined. Awake and alert. Chart was reviewed Denies chest pain. Intermittent SOB and cough - Current Medication List Current Medications: Active Medications Acetaminophen (Tylenol -) 650 mg PO Q6H PRN PRN Reason: FEVER Last Admin: 07/21/18 09:51 Dose: 650 mg Al Hydroxide/Mg Hydroxide (Mylanta Oral Suspension -) 30 ml PO Q6H PRN PRN Reason: DYSPEPSIA Albuterol Sulfate (Ventolin 0.083% Nebulizer Soln -) 1 amp NEB RQID [facility] Last Admin: 07/26/18 12:13 Dose: 1 amp Alprazolam (Xanax -) 0.25 mg PO Q12H PRN PRN Reason: ANXIETY Last Admin: 07/25/18 21:59 Dose: 0.25 mg Aspirin (Asa -) 81 mg PO DAILY [facility] Last Admin: 07/26/18 10:34 Dose: 81 mg Atorvastatin Calcium (Lipitor -) 80 mg PO HS [facility] Last Admin: 07/25/18 21:59 Dose: 80 mg Azithromycin (Zithromax -) 250 mg PO DAILY [facility] Last Admin: 07/26/18 10:34 Dose: 250 mg Budesonide/Formoterol Fumarate (Symbicort 160/4.5mcg -) 2 puff IH BID [facility] Last Admin: 07/26/18 10:33 Dose: 2 puff Clopidogrel Bisulfate (Plavix -) 75 mg PO DAILY [facility] Last Admin: 07/26/18 10:35 Dose: 75 mg Docusate Sodium (Colace -) 300 mg PO HS [facility] Last Admin: 07/25/18 21:58 Dose: 300 mg Fluticasone Propionate (Flonase -) 1 spray NS BID [facility] Last Admin: 07/26/18 10:33 Dose: 1 spray Folic Acid (Folic Acid -) 1 mg PO DAILY [facility] Last Admin: 07/26/18 10:35 Dose: 1 mg Furosemide (Lasix -) 40 mg PO DAILY [facility] Last Admin: 07/26/18 10:34 Dose: 40 mg Guaifenesin (Robitussin Dm -) 10 ml PO Q6H PRN PRN Reason: COUGH Isosorbide Mononitrate (Imdur -) 30 mg PO BIDISMO [facility] Last Admin: 07/26/18 10:35 Dose: 30 mg Meclizine HCl (Antivert -) 25 mg PO Q6H PRN PRN Reason: VERTIGO Methylprednisolone Sodium Succinate (Solu-Medrol -) 20 mg IVPB BID [facility] Last Admin: 07/26/18 10:34 Dose: 20 mg Montelukast Sodium (Singulair -) 10 mg PO HS [facility] Last Admin: 07/25/18 21:59 Dose: 10 mg Nitroglycerin (Nitrostat -) 0.4 mg SL Q5M PRN PRN Reason: FOR CHEST PAIN Nystatin (Nystatin Oral Suspension -) 500,000 units PO BID [facility] Last Admin: 07/26/18 10:35 Dose: 500,000 units Pantoprazole Sodium (Protonix -) 40 mg PO DAILY [facility] Last Admin: 07/26/18 10:34 Dose: 40 mg Potassium Chloride (K-Dur -) 10 meq PO BID [facility] Last Admin: 07/26/18 10:34 Dose: 10 meq Ranitidine HCl (Zantac -) 150 mg PO DAILY [facility] Last Admin: 07/26/18 10:35 Dose: 150 mg Ranolazine (Ranexa -) 500 mg PO BID [facility] Last Admin: 07/26/18 10:34 Dose: 500 mg Sodium Chloride ([place] Nasal [place] -) 2 spray NS TID [facility] Last Admin: 07/26/18 06:03 Dose: 2 spray Tiotropium [place] (Spiriva Respimat) 2 puff IH DAILY [facility] Last Admin: 07/26/18 10:33 Dose: 2 puff Verapamil HCl (Calan Sr -) 240 mg PO BID [facility] Last Admin: 07/26/18 10:34 Dose: 240 mg - Objective Vital Signs: Vital Signs Temperature 97.8 F 07/26/18 10:25 Pulse Rate 78 07/26/18 10:25 Respiratory Rate 18 07/26/18 10:25 Blood Pressure 144/54 L 07/26/18 10:25 O2 Sat by Pulse Oximetry (%) 98 07/25/18 21:00 HENT: Yes: Atraumatic Neck: Yes: Supple Cardiovascular: Yes: Regular Rate and Rhythm, S1, S2 Respiratory: Yes: Diminished Gastrointestinal: Yes: Normal Bowel Sounds, Soft. No: Tenderness Peripheral Pulses WNL: No Labs: CBC, BMP 07/25/18 06:25 07/25/18 06:25 Problem List - Problems (1) COPD exacerbation Code(s): J44.1 - CHRONIC OBSTRUCTIVE PULMONARY DISEASE W (ACUTE) EXACERBATION (2) Diastolic CHF Code(s): I50.30 - UNSPECIFIED DIASTOLIC (CONGESTIVE) HEART FAILURE (3) Hyponatremia Code(s): E87.1 - HYPO-OSMOLALITY AND HYPONATREMIA (4) Mesenteric ischemia Code(s): K55.9 - VASCULAR DISORDER OF INTESTINE, UNSPECIFIED (5) Shortness of breath Code(s): R06.02 - SHORTNESS OF BREATH (6) Anemia Code(s): D64.9 - ANEMIA, UNSPECIFIED (7) Sue esophagus Code(s): K22.70 - SUE'S ESOPHAGUS WITHOUT DYSPLASIA Qualifiers: Sue's esophagus type: with dysplasia of unspecified degree Qualified Code(s): K22.719 - Sue's esophagus with dysplasia, unspecified; K22.71 - Sue's esophagus with dysplasia (8) Carotid stenosis Code(s): I65.29 - OCCLUSION AND STENOSIS OF UNSPECIFIED CAROTID ARTERY (9) Coronary artery disease Code(s): I25.10 - ATHSCL HEART DISEASE OF [place] CORONARY ARTERY W/O ANG PCTRS Qualifiers: Coronary Disease-Associated Artery/Lesion type: [place] artery [place] vs. transplanted heart: [place] heart Associated angina: without angina Qualified Code(s): I25.10 - Atherosclerotic heart disease of [place] coronary artery without angina pectoris (10) Diastolic dysfunction Code(s): I51.9 - HEART DISEASE, UNSPECIFIED (11) H/O carotid endarterectomy Code(s): Z98.890 - OTHER SPECIFIED POSTPROCEDURAL STATES (12) HTN (hypertension) Code(s): I10 - ESSENTIAL (PRIMARY) HYPERTENSION Qualifiers: Hypertension type: essential hypertension Qualified Code(s): I10 - Essential (primary) hypertension (13) History of myocardial infarction Code(s): I25.2 - OLD MYOCARDIAL INFARCTION (14) Hyperlipidemia Code(s): E78.5 - HYPERLIPIDEMIA, UNSPECIFIED Qualifiers: Hyperlipidemia type: pure hypercholesterolemia Qualified Code(s): E78.00 - Pure hypercholesterolemia, unspecified; E78.0 - Pure hypercholesterolemia (15) Peripheral artery disease Code(s): I73.9 - PERIPHERAL VASCULAR DISEASE, UNSPECIFIED (16) Pneumonia Code(s): J18.9 - PNEUMONIA, UNSPECIFIED ORGANISM Assessment/Plan 1. Acute exacerbation of COPD and pneumonia improving and presence of pulmonary nodules 2. Diastolic dysfunction 3. CAD post PA PCI, angina pectoris 4. Systolic murmur - AV sclerosis 5. HTN/HCVD 6. Hyperlipidemia 7. Bilateral carotid artery disease post right CEA 8. Mesenteric ischemia post SMA bypass 9. PAD post intervention w/o significant stenosis 10. Hyperkalemia 11. History of left frontal stroke 12. History of Renal Failure (required temporary dialysis 2011) PLAN: 1. Continue Calan SR 240 mg BID as tolerated 2. Continue Imdur 30 mg BID and Ranexa 500 mg BID 3. Off Diovan and Bystolic 4. Continue Lipitor 80 mg QHS 5. Continue Lasix 40 mg QD 6. Continue Plavix and ASA 7. Bronchodilator, empiric antibiotic, wean steroids, O2 to keep Spo2 >90% and DVT prophylaxis Follow up with Dr. 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
[2018-07-26] MEDS: DOCUSATE SODIUM 100 MG CAPSULE (FP) PO SCH (22:46)
[2018-07-26] MEDS: MONTELUKAST NA 10 MG TABLET PO SCH (22:46)
[2018-07-26] MEDS: ATORVASTATIN CA 80 MG TABLET (FP) PO SCH (22:46)
[2018-07-26] MEDS: ALPRAZolam 0.25 MG TABLET PO PRN (22:47)
[2018-07-27] MEDS: SODIUM CHLORIDE NASAL SPRAY 44 ML BOTTLE NS SCH ×3 (06:24→21:28)
[2018-07-27] MEDS: ALBUTEROL SO4 0.083% IH SOL 2.5 MG/3 ML VIAL.NEB. NEB SCH ×4 (07:43→21:20)
--- NOTE | 2018-07-27 09:31 | PN ---
Progress Note, Physician Chief Complaint: Events noted No new complaints History of Present Illness: Patient was seen and examined. Awake and alert. Chart was reviewed Denies chest pain. Intermittent SOB and cough - Current Medication List Current Medications: Active Medications Acetaminophen (Tylenol -) 650 mg PO Q6H PRN PRN Reason: FEVER Last Admin: 07/21/18 09:51 Dose: 650 mg Al Hydroxide/Mg Hydroxide (Mylanta Oral Suspension -) 30 ml PO Q6H PRN PRN Reason: DYSPEPSIA Albuterol Sulfate (Ventolin 0.083% Nebulizer Soln -) 1 amp NEB RQID [facility] Last Admin: 07/27/18 07:43 Dose: 1 amp Alprazolam (Xanax -) 0.25 mg PO Q12H PRN PRN Reason: ANXIETY Last Admin: 07/26/18 22:47 Dose: 0.25 mg Aspirin (Asa -) 81 mg PO DAILY [facility] Last Admin: 07/26/18 10:34 Dose: 81 mg Atorvastatin Calcium (Lipitor -) 80 mg PO HS [facility] Last Admin: 07/26/18 22:46 Dose: 80 mg Azithromycin (Zithromax -) 250 mg PO DAILY [facility] Last Admin: 07/26/18 10:34 Dose: 250 mg Budesonide/Formoterol Fumarate (Symbicort 160/4.5mcg -) 2 puff IH BID [facility] Last Admin: 07/26/18 22:48 Dose: 2 puff Clopidogrel Bisulfate (Plavix -) 75 mg PO DAILY [facility] Last Admin: 07/26/18 10:35 Dose: 75 mg Docusate Sodium (Colace -) 300 mg PO HS [facility] Last Admin: 07/26/18 22:46 Dose: 300 mg Fluticasone Propionate (Flonase -) 1 spray NS BID [facility] Last Admin: 07/26/18 22:49 Dose: 1 spray Folic Acid (Folic Acid -) 1 mg PO DAILY [facility] Last Admin: 07/26/18 10:35 Dose: 1 mg Furosemide (Lasix -) 40 mg PO DAILY [facility] Last Admin: 07/26/18 10:34 Dose: 40 mg Guaifenesin (Robitussin Dm -) 10 ml PO Q6H PRN PRN Reason: COUGH Isosorbide Mononitrate (Imdur -) 30 mg PO BIDISMO [facility] Last Admin: 07/26/18 17:09 Dose: 30 mg Meclizine HCl (Antivert -) 25 mg PO Q6H PRN PRN Reason: VERTIGO Methylprednisolone Sodium Succinate (Solu-Medrol -) 20 mg IVPB BID [facility] Last Admin: 07/26/18 22:46 Dose: 20 mg Montelukast Sodium (Singulair -) 10 mg PO HS [facility] Last Admin: 07/26/18 22:46 Dose: 10 mg Nitroglycerin (Nitrostat -) 0.4 mg SL Q5M PRN PRN Reason: FOR CHEST PAIN Nystatin (Nystatin Oral Suspension -) 500,000 units PO BID [facility] Last Admin: 07/26/18 22:46 Dose: 500,000 units Pantoprazole Sodium (Protonix -) 40 mg PO DAILY [facility] Last Admin: 07/26/18 10:34 Dose: 40 mg Potassium Chloride (K-Dur -) 10 meq PO BID [facility] Last Admin: 07/26/18 22:46 Dose: 10 meq Ranitidine HCl (Zantac -) 150 mg PO DAILY [facility] Last Admin: 07/26/18 10:35 Dose: 150 mg Ranolazine (Ranexa -) 500 mg PO BID [facility] Last Admin: 07/26/18 22:46 Dose: 500 mg Sodium Chloride ([place] Nasal [place] -) 2 spray NS TID [facility] Last Admin: 07/27/18 06:24 Dose: 2 spray Tiotropium [place] (Spiriva Respimat) 2 puff IH DAILY [facility] Last Admin: 07/26/18 10:33 Dose: 2 puff Verapamil HCl (Calan Sr -) 240 mg PO BID [facility] Last Admin: 07/26/18 22:48 Dose: 240 mg - Objective Vital Signs: Vital Signs Temperature -99 F L 07/27/18 07:43 Pulse Rate 83 07/27/18 07:43 Respiratory Rate 18 07/27/18 07:43 Blood Pressure 132/63 07/27/18 07:43 O2 Sat by Pulse Oximetry (%) 98 07/26/18 21:00 Eyes: Yes: PERRL HENT: Yes: Atraumatic Neck: Yes: Supple Cardiovascular: Yes: Regular Rate and Rhythm, S1, S2 Respiratory: Yes: Diminished, Rhonchi Gastrointestinal: Yes: Normal Bowel Sounds, Soft. 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 transplanted heart: [place] heart Associated angina: without angina Qualified Code(s): I25.10 - Atherosclerotic heart disease of [place] coronary artery without angina pectoris (10) Diastolic dysfunction Code(s): I51.9 - HEART DISEASE, UNSPECIFIED (11) H/O carotid endarterectomy Code(s): Z98.890 - OTHER SPECIFIED POSTPROCEDURAL STATES (12) HTN (hypertension) Code(s): I10 - ESSENTIAL (PRIMARY) HYPERTENSION Qualifiers: Hypertension type: essential hypertension Qualified Code(s): I10 - Essential (primary) hypertension (13) History of myocardial infarction Code(s): I25.2 - OLD MYOCARDIAL INFARCTION (14) Hyperlipidemia Code(s): E78.5 - HYPERLIPIDEMIA, UNSPECIFIED Qualifiers: Hyperlipidemia type: pure hypercholesterolemia Qualified Code(s): E78.00 - Pure hypercholesterolemia, unspecified; E78.0 - Pure hypercholesterolemia (15) Peripheral artery disease Code(s): I73.9 - PERIPHERAL VASCULAR DISEASE, UNSPECIFIED (16) Pneumonia Code(s): J18.9 - PNEUMONIA, UNSPECIFIED ORGANISM Assessment/Plan 1. Acute exacerbation of COPD and pneumonia improving and presence of pulmonary nodules 2. Diastolic dysfunction 3. CAD post CO PCI, angina pectoris 4. Systolic murmur - AV sclerosis 5. HTN/HCVD 6. Hyperlipidemia 7. Bilateral carotid artery disease post right CEA 8. Mesenteric ischemia post SMA bypass 9. PAD post intervention w/o significant stenosis 10. Hyperkalemia 11. History of left frontal stroke 12. History of Renal Failure (required temporary dialysis 2011) PLAN: 1. Continue Calan SR 240 mg BID as tolerated 2. Continue Imdur 30 mg BID and Ranexa 500 mg BID 3. Off Diovan and Bystolic 4. Continue Lipitor 80 mg QHS 5. Continue Lasix 40 mg QD 6. Continue Plavix and ASA 7. Bronchodilator, empiric antibiotic, wean steroids, O2 to keep Spo2 >90% and DVT prophylaxis Follow up with Dr. 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
[2018-07-27] MEDS: AZITHROMYCIN 250 MG TABLET PO SCH (10:17)
[2018-07-27] MEDS: FUROSEMIDE 40 MG TABLET (FP) PO SCH (10:17)
[2018-07-27] MEDS: CLOPIDOGREL BISULFATE 75 MG TABLET (FP) PO SCH (10:18)
[2018-07-27] MEDS: ISOSORBIDE MONONITRATE 30 MG TAB.SR.24H (FP) PO SCH ×2 (10:18→16:55)
[2018-07-27] MEDS: PANTOPRAZOLE 40 MG TABLET (FP) PO SCH (10:18)
[2018-07-27] MEDS: RANITIDINE HCL 150 MG TABLET (FP) PO SCH (10:18)
[2018-07-27] MEDS: FOLIC ACID 1 MG TABLET (FP) PO SCH (10:18)
[2018-07-27] MEDS: VERAPAMIL HCL 240 MG E.R. TABLET (FP) PO SCH ×2 (10:18→21:26)
[2018-07-27] MEDS: RANOLAZINE E.R. 500 MG TABLET (FP) PO SCH ×2 (10:18→21:26)
[2018-07-27] MEDS: POTASSIUM CHLORIDE TABS 10 MEQ TABLET.ER (FP) PO SCH ×2 (10:18→21:25)
[2018-07-27] MEDS: ASPIRIN 81 MG CHEWABLE TABLETS PO SCH (10:18)
[2018-07-27] MEDS: NYSTATIN 500,000 UNITS/5 ML SUSPENSION PO SCH ×2 (10:18→21:25)
[2018-07-27] MEDS: methylPREDNISolone NA SUCC 40 MG/1 ML VIAL IVPB SCH ×2 (10:18→21:27)
[2018-07-27] MEDS: TIOTROPIUM BROMIDE 2.5 MCG (SPIRIVA) RESPIMAT INHALER IH SCH (10:19)
[2018-07-27] MEDS: BUDESONIDE/FORMETEROL FUMARATE 160/4.5 mcg INHALER IH SCH ×2 (10:19→21:27)
[2018-07-27] MEDS: FLUTICASONE PROP 0.05% 16 GM NASAL SPRAY NS SCH ×2 (10:19→21:27)
--- NOTE | 2018-07-27 10:33 | PN ---
Progress Note, Physician Chief Complaint: still congested will add mucinex and chest PT and mobilize pt to try to expectorate more - Current Medication List Current Medications: Active Medications Acetaminophen (Tylenol -) 650 mg PO Q6H PRN PRN Reason: FEVER Last Admin: 07/21/18 09:51 Dose: 650 mg Al Hydroxide/Mg Hydroxide (Mylanta Oral Suspension -) 30 ml PO Q6H PRN PRN Reason: DYSPEPSIA Albuterol Sulfate (Ventolin 0.083% Nebulizer Soln -) 1 amp NEB RQID [facility] Last Admin: 07/27/18 07:43 Dose: 1 amp Alprazolam (Xanax -) 0.25 mg PO Q12H PRN PRN Reason: ANXIETY Last Admin: 07/26/18 22:47 Dose: 0.25 mg Aspirin (Asa -) 81 mg PO DAILY [facility] Last Admin: 07/27/18 10:18 Dose: 81 mg Atorvastatin Calcium (Lipitor -) 80 mg PO HS [facility] Last Admin: 07/26/18 22:46 Dose: 80 mg Azithromycin (Zithromax -) 250 mg PO DAILY [facility] Last Admin: 07/27/18 10:17 Dose: 250 mg Budesonide/Formoterol Fumarate (Symbicort 160/4.5mcg -) 2 puff IH BID [facility] Last Admin: 07/27/18 10:19 Dose: 2 puff Clopidogrel Bisulfate (Plavix -) 75 mg PO DAILY [facility] Last Admin: 07/27/18 10:18 Dose: 75 mg Docusate Sodium (Colace -) 300 mg PO HS [facility] Last Admin: 07/26/18 22:46 Dose: 300 mg Fluticasone Propionate (Flonase -) 1 spray NS BID [facility] Last Admin: 07/27/18 10:19 Dose: 1 spray Folic Acid (Folic Acid -) 1 mg PO DAILY [facility] Last Admin: 07/27/18 10:18 Dose: 1 mg Furosemide (Lasix -) 40 mg PO DAILY [facility] Last Admin: 07/27/18 10:17 Dose: 40 mg Guaifenesin (Mucinex -) 600 mg PO BID [facility] Isosorbide Mononitrate (Imdur -) 30 mg PO BIDISMO [facility] Last Admin: 07/27/18 10:18 Dose: 30 mg Meclizine HCl (Antivert -) 25 mg PO Q6H PRN PRN Reason: VERTIGO Methylprednisolone Sodium Succinate (Solu-Medrol -) 20 mg IVPB BID [facility] Last Admin: 07/27/18 10:18 Dose: 20 mg Montelukast Sodium (Singulair -) 10 mg PO HS [facility] Last Admin: 07/26/18 22:46 Dose: 10 mg Nitroglycerin (Nitrostat -) 0.4 mg SL Q5M PRN PRN Reason: FOR CHEST PAIN Nystatin (Nystatin Oral Suspension -) 500,000 units PO BID [facility] Last Admin: 07/27/18 10:18 Dose: 500,000 units Pantoprazole Sodium (Protonix -) 40 mg PO DAILY [facility] Last Admin: 07/27/18 10:18 Dose: 40 mg Potassium Chloride (K-Dur -) 10 meq PO BID [facility] Last Admin: 07/27/18 10:18 Dose: 10 meq Ranitidine HCl (Zantac -) 150 mg PO DAILY [facility] Last Admin: 07/27/18 10:18 Dose: 150 mg Ranolazine (Ranexa -) 500 mg PO BID [facility] Last Admin: 07/27/18 10:18 Dose: 500 mg Sodium Chloride ([place] Nasal [place] -) 2 spray NS TID [facility] Last Admin: 07/27/18 06:24 Dose: 2 spray Tiotropium [place] (Spiriva Respimat) 2 puff IH DAILY [facility] Last Admin: 07/27/18 10:19 Dose: 2 puff Verapamil HCl (Calan Sr -) 240 mg PO BID [facility] Last Admin: 07/27/18 10:18 Dose: 240 mg - Objective Vital Signs: Vital Signs Temperature -99 F L 07/27/18 07:43 Pulse Rate 83 07/27/18 07:43 Respiratory Rate 18 07/27/18 07:43 Blood Pressure 132/63 07/27/18 07:43 O2 Sat by Pulse Oximetry (%) 98 07/26/18 21:00 Constitutional: Yes: No Distress, Calm Eyes: Yes: Conjunctiva Clear HENT: Yes: Atraumatic Neck: Yes: Supple Cardiovascular: Yes: Regular Rate and Rhythm Respiratory: Yes: Rales Gastrointestinal: Yes: Soft. No: Distention Genitourinary: No: CVA Tenderness - Left, CVA Tenderness - Right Musculoskeletal: No: Joint Stiffness, Joint Swelling Extremities: No: Cold, Cool Edema: No Integumentary: No: Rash, Venous Stasis Changes Neurological: Yes: WNL, Alert, Oriented ...Motor Strength: WNL Psychiatric: Yes: WNL, Alert, Oriented. No: Agitated, Suicidal Ideation Labs: CBC, BMP 07/25/18 06:25 07/25/18 06:25 - ....Imaging Other: Report Reviewed Assessment/Plan The patient is a 63-year-old female with a past medical history significant for CAD, HTN, ME s/p angioplasty, COPD, diastolic CHF, PVD and mesenteric ischemia s /p SMA bypass (2011) s/p acute COPD exac on chronic COPD and PNA IV steroids - continue same dose mucinex, chest PT lasix po, f/u labs O2, nebs pulmonary f/u, cardiology f/u falls DVT PFX ambulate d/w pt and staff
[2018-07-27] MEDS ORDERED: ALBUTEROL SO4 0.083% IH SOL 2.5 MG/3 ML VIAL.NEB. NEB PRN (10:45)
[2018-07-27] MEDS: guaiFENesin 600 MG TABLET.ER (FP) PO SCH ×2 (10:55→21:25)
--- NOTE | 2018-07-27 14:18 | PN ---
Progress Note, Physician History of Present Illness: pulmonary alert,still dyspneic with min exertion,less congested - Current Medication List Current Medications: Active Medications Acetaminophen (Tylenol -) 650 mg PO Q6H PRN PRN Reason: FEVER Last Admin: 07/21/18 09:51 Dose: 650 mg Al Hydroxide/Mg Hydroxide (Mylanta Oral Suspension -) 30 ml PO Q6H PRN PRN Reason: DYSPEPSIA Albuterol Sulfate (Ventolin 0.083% Nebulizer Soln -) 1 amp NEB RQID [facility] Last Admin: 07/27/18 11:45 Dose: 1 amp Albuterol Sulfate (Ventolin 0.083% Nebulizer Soln -) 1 amp NEB Q6H PRN PRN Reason: SHORT OF BREATH/WHEEZING Alprazolam (Xanax -) 0.25 mg PO Q12H PRN PRN Reason: ANXIETY Last Admin: 07/26/18 22:47 Dose: 0.25 mg Aspirin (Asa -) 81 mg PO DAILY [facility] Last Admin: 07/27/18 10:18 Dose: 81 mg Atorvastatin Calcium (Lipitor -) 80 mg PO HS [facility] Last Admin: 07/26/18 22:46 Dose: 80 mg Azithromycin (Zithromax -) 250 mg PO DAILY [facility] Last Admin: 07/27/18 10:17 Dose: 250 mg Budesonide/Formoterol Fumarate (Symbicort 160/4.5mcg -) 2 puff IH BID [facility] Last Admin: 07/27/18 10:19 Dose: 2 puff Clopidogrel Bisulfate (Plavix -) 75 mg PO DAILY [facility] Last Admin: 07/27/18 10:18 Dose: 75 mg Docusate Sodium (Colace -) 300 mg PO HS [facility] Last Admin: 07/26/18 22:46 Dose: 300 mg Fluticasone Propionate (Flonase -) 1 spray NS BID [facility] Last Admin: 07/27/18 10:19 Dose: 1 spray Folic Acid (Folic Acid -) 1 mg PO DAILY [facility] Last Admin: 07/27/18 10:18 Dose: 1 mg Furosemide (Lasix -) 40 mg PO DAILY [facility] Last Admin: 07/27/18 10:17 Dose: 40 mg Guaifenesin (Mucinex -) 600 mg PO BID [facility] Last Admin: 07/27/18 10:55 Dose: 600 mg Isosorbide Mononitrate (Imdur -) 30 mg PO BIDISMO [facility] Last Admin: 07/27/18 10:18 Dose: 30 mg Meclizine HCl (Antivert -) 25 mg PO Q6H PRN PRN Reason: VERTIGO Methylprednisolone Sodium Succinate (Solu-Medrol -) 20 mg IVPB BID [facility] Last Admin: 07/27/18 10:18 Dose: 20 mg Montelukast Sodium (Singulair -) 10 mg PO HS [facility] Last Admin: 07/26/18 22:46 Dose: 10 mg Nitroglycerin (Nitrostat -) 0.4 mg SL Q5M PRN PRN Reason: FOR CHEST PAIN Nystatin (Nystatin Oral Suspension -) 500,000 units PO BID [facility] Last Admin: 07/27/18 10:18 Dose: 500,000 units Pantoprazole Sodium (Protonix -) 40 mg PO DAILY [facility] Last Admin: 07/27/18 10:18 Dose: 40 mg Potassium Chloride (K-Dur -) 10 meq PO BID [facility] Last Admin: 07/27/18 10:18 Dose: 10 meq Ranitidine HCl (Zantac -) 150 mg PO DAILY [facility] Last Admin: 07/27/18 10:18 Dose: 150 mg Ranolazine (Ranexa -) 500 mg PO BID [facility] Last Admin: 07/27/18 10:18 Dose: 500 mg Sodium Chloride ([place] Nasal [place] -) 2 spray NS TID [facility] Last Admin: 07/27/18 13:01 Dose: 2 spray Tiotropium [place] (Spiriva Respimat) 2 puff IH DAILY [facility] Last Admin: 07/27/18 10:19 Dose: 2 puff Verapamil HCl (Calan Sr -) 240 mg PO BID [facility] Last Admin: 07/27/18 10:18 Dose: 240 mg - Objective Vital Signs: Vital Signs Temperature 98.3 F 07/27/18 13:30 Pulse Rate 82 07/27/18 13:30 Respiratory Rate 20 07/27/18 13:30 Blood Pressure 128/70 07/27/18 13:30 O2 Sat by Pulse Oximetry (%) 98 07/26/18 21:00 Constitutional: Yes: Well Nourished, Calm Eyes: Yes: WNL HENT: Yes: WNL Neck: Yes: WNL Cardiovascular: Yes: Regular Rate and Rhythm, S1, S2 Respiratory: Yes: Wheezes (scattered marilee wheezes) Gastrointestinal: Yes: Normal Bowel Sounds, Soft Extremities: Yes: WNL Edema: No Labs: CBC, BMP Problem List - Problems (1) COPD exacerbation Code(s): J44.1 - CHRONIC OBSTRUCTIVE PULMONARY DISEASE W (ACUTE) EXACERBATION (2) Shortness of breath Code(s): R06.02 - SHORTNESS OF BREATH (3) ASHD (arteriosclerotic heart disease) Code(s): I25.10 - ATHSCL HEART DISEASE OF [place] CORONARY ARTERY W/O ANG PCTRS (4) 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 transplanted heart: ruby heart Associated angina: without angina Qualified Code(s): I25.10 - Atherosclerotic heart disease of [place] coronary artery without angina pectoris (7) Diastolic dysfunction Code(s): I51.9 - HEART DISEASE, UNSPECIFIED (8) HTN (hypertension) Code(s): I10 - ESSENTIAL (PRIMARY) HYPERTENSION Qualifiers: Hypertension type: essential hypertension Qualified Code(s): I10 - Essential (primary) hypertension (9) History of myocardial infarction Code(s): I25.2 - OLD MYOCARDIAL INFARCTION (10) Lung nodule < 6cm on CT Code(s): R91.1 - SOLITARY PULMONARY NODULE Assessment/Plan IMP DYSPNEA ACUTE EXACERBATION OF COPD PNEUMONIA H/O PULMONARY NODULES ASHD S/P SC HTN DIASTOLIC HF PLAN MEDROL INHALED BRONCHODILATORS O2 PFTS OUTPATIENT AMBULATORY O2 SAT PRIOR TO DISCHARGE F/U CHEST CT OUTPATIENT 6 WKS TO CONFIRM RESOLUTION RML CONSOLIDATION DR LEÓN Problem List - Problems (1) COPD exacerbation Code(s): J44.1 - CHRONIC OBSTRUCTIVE PULMONARY DISEASE W (ACUTE) EXACERBATION (2) Shortness of breath Code(s): R06.02 - SHORTNESS OF BREATH (3) ASHD (arteriosclerotic heart disease) Code(s): I25.10 - ATHSCL HEART DISEASE OF [place] CORONARY ARTERY W/O ANG PCTRS (4) 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 transplanted heart: ruby heart Associated angina: without angina Qualified Code(s): I25.10 - Atherosclerotic heart disease of [place] coronary artery without angina pectoris (7) Diastolic dysfunction Code(s): I51.9 - HEART DISEASE, UNSPECIFIED (8) HTN (hypertension) Code(s): I10 - ESSENTIAL (PRIMARY) HYPERTENSION Qualifiers: Hypertension type: essential hypertension Qualified Code(s): I10 - Essential (primary) hypertension (9) History of myocardial infarction Code(s): I25.2 - OLD MYOCARDIAL INFARCTION (10) Lung nodule < 6cm on CT Code(s): R91.1 - SOLITARY PULMONARY NODULE
[2018-07-27] MEDS ORDERED: PT OWN MED DRAWER 7, Y5N ONE (21:21)
[2018-07-27] MEDS: ATORVASTATIN CA 80 MG TABLET (FP) PO SCH (21:25)
[2018-07-27] MEDS: MONTELUKAST NA 10 MG TABLET PO SCH (21:26)
[2018-07-27] MEDS: DOCUSATE SODIUM 100 MG CAPSULE (FP) PO SCH (21:26)
[2018-07-28] MEDS: SODIUM CHLORIDE NASAL SPRAY 44 ML BOTTLE NS SCH ×2 (06:44→13:34)
[2018-07-28] MEDS: ALBUTEROL SO4 0.083% IH SOL 2.5 MG/3 ML VIAL.NEB. NEB SCH ×3 (07:30→15:56)
--- NOTE | 2018-07-28 10:08 | DS ---
Physical Examination Vital Signs: Vital Signs Temperature 97.8 F 07/28/18 06:00 Pulse Rate 88 07/28/18 06:00 Respiratory Rate 20 07/28/18 06:00 Blood Pressure 126/62 07/28/18 06:00 O2 Sat by Pulse Oximetry (%) 98 07/27/18 21:00 Findings/Remarks: feels better less cough no SOB walked in hallway, wants to go home Constitutional: Yes: No Distress, Calm Eyes: Yes: Conjunctiva Clear HENT: Yes: Atraumatic Neck: Yes: Supple Cardiovascular: Yes: Regular Rate and Rhythm Respiratory: Yes: Rales (less) Gastrointestinal: Yes: Soft. No: Distention Renal/: No: CVA Tenderness - Left, CVA Tenderness - Right, Hematuria Musculoskeletal: No: Joint Stiffness, Joint Swelling Extremities: No: Cold, Cool, Cyanosis Edema: No Integumentary: No: Rash, Venous Stasis Changes Neurological: Yes: WNL, Alert, Oriented ...Motor Strength: WNL Psychiatric: Yes: WNL, Alert, Oriented. No: Agitated, Suicidal Ideation Labs: CBC, BMP 07/25/18 06:25 07/25/18 06:25 Discharge Summary Reason For Visit: OBSTRUCTIVE CHRONIC BRONCHITIS WITH EXACERBATION Current Active Problems COPD exacerbation (Acute) COPD with acute exacerbation (Acute) Diastolic CHF (Acute) Hyponatremia (Acute) Leukocytosis (Acute) Mesenteric ischemia (Acute) Shortness of breath (Acute) Procedures: Principal: admitted with acute on chronic COPD exac; PNA Other Procedures: started on IV steroids and IV/po antibiotics; O2 NC, inhalers ; seen by cardiology and pulmonary; chest CT c/w PNA and COPD needs outpt f.u CT in 1-2 months Hospital Course: improved with above; DC home on tapering steroids and chronic daily zithromax f/u as advised; take meds as ordered. Condition: Improved - Instructions Diet, Activity, Other Instructions: chest CT 1-2 months outpt; take meds as ordered; cardiology, pulmonary and PCP f/u in 1-4 weeks outpt; health maintenance per PCP; RTER if worse or recurrent c/o; no smoking; Referrals: Casi Cohn [Primary Care Provider] - Michael Jenkins MD [Staff Physician] - Tayo Emerson MD [Staff Physician] - Disposition: VNS/HOME HEALTH CARE - Home Medications Comprehensive Discharge Medication List: Ambulatory Orders Albuterol 2.5/Ipratropium 0.5 [Duoneb -] 1 neb NEB Q4H PRN #0 vial 12/27/12 Atorvastatin Calcium [Lipitor] 80 mg PO HS #0 tablet 12/27/12 Clopidogrel Bisulfate [Plavix -] 75 mg PO DAILY #0 tablet 12/27/12 Folic Acid - 1 mg PO DAILY #0 tablet 12/27/12 Isosorbide Mononitrate [Imdur] 30 mg PO BID #0 tab.sr.24h 12/27/12 Montelukast Na [Singulair -] 10 mg PO HS #0 tablet 12/27/12 Ranitidine [Zantac -] 150 mg PO DAILY #0 tablet 12/27/12 Tiotropium [place] [Spiriva] 1 inh IH DAILY #0 inh 12/27/12 Fluticasone Prop 0.05% Nasal [Flonase -] 1 - 2 spray NS BID #1 spray.pump Mag Hydrox/Al Hydrox/Simeth [Mylanta Oral Suspension -] 30 ml PO Q6H PRN #0 cup 04/16/15 Acetaminophen [Tylenol .Regular Strength -] 650 mg PO Q6H PRN #0 tablet Docusate Sodium [Colace -] 300 mg PO HS capsule 08/16/16 Nitroglycerin 0.4 mg SL AM PRN #90 tab.subl 08/16/16 Pantoprazole Sodium [Protonix -] 40 mg PO DAILY #90 tablet.ec 08/16/16 Ranolazine [Ranexa -] 500 mg PO BID #180 tab 08/16/16 Verapamil HCl ER [Calan Sr -] 240 mg PO BID #180 tablet.er 08/16/16 Potassium Chloride [K-Dur -] 10 meq PO BID 02/15/18 Budesonide/Formeterol Fumarate [SYMBICORT 160/4.5mcg -] 2 puff IH BID #3 inhaler 03/03/18 Guaifenesin Dm [Robitussin Dm -] 10 ml PO Q6H PRN cup 03/03/18 Sodium Chloride Nasal [place] [[place] Nasal [place] -] 2 spray NS TID spray Mupirocin Ointment [Bactroban 2% Ointment -] 1 applic TP BID #1 tube 03/13/18 Clotrimazole [Antifungal] 30 gm TP BID #1 cream..g. 03/20/18 Alprazolam [Xanax] 0 mg PO PRN PRN 04/29/18 Albuterol 0.083% Nebulizer [place] [Ventolin 0.083% Nebulizer Soln -] 1 amp NEB Q4H PRN amp 05/08/18 Aspirin [ASA -] 81 mg PO DAILY tab.chew 05/08/18 Azithromycin [Zithromax 250mg Tablets -] 250 mg PO DAILY #30 tablet 05/08/18 Furosemide [Lasix -] 20 mg PO BID #60 tablet 05/08/18 Meclizine HCl [Antivert -] 25 mg PO Q6H PRN #90 tablet 05/08/18 Nebivolol [Bystolic -] 5 mg PO DAILY #30 tab 05/08/18 Valsartan [Diovan] 40 mg PO DAILY #30 tablet 05/08/18 predniSONE [Deltasone -] 10 mg PO DAILY #30 tablet 05/08/18
--- NOTE | 2018-07-28 10:11 | PN ---
Progress Note, Physician Chief Complaint: Events noted No new complaints History of Present Illness: Patient was seen and examined. Awake and alert. Chart was reviewed Denies chest pain or SOB Fees better - Current Medication List Current Medications: Active Medications Acetaminophen (Tylenol -) 650 mg PO Q6H PRN PRN Reason: FEVER Last Admin: 07/21/18 09:51 Dose: 650 mg Al Hydroxide/Mg Hydroxide (Mylanta Oral Suspension -) 30 ml PO Q6H PRN PRN Reason: DYSPEPSIA Albuterol Sulfate (Ventolin 0.083% Nebulizer Soln -) 1 amp NEB RQID [facility] Last Admin: 07/28/18 07:30 Dose: 1 amp Albuterol Sulfate (Ventolin 0.083% Nebulizer Soln -) 1 amp NEB Q6H PRN PRN Reason: SHORT OF BREATH/WHEEZING Alprazolam (Xanax -) 0.25 mg PO Q12H PRN PRN Reason: ANXIETY Last Admin: 07/26/18 22:47 Dose: 0.25 mg Aspirin (Asa -) 81 mg PO DAILY [facility] Last Admin: 07/27/18 10:18 Dose: 81 mg Atorvastatin Calcium (Lipitor -) 80 mg PO HS [facility] Last Admin: 07/27/18 21:25 Dose: 80 mg Azithromycin (Zithromax -) 250 mg PO DAILY [facility] Last Admin: 07/27/18 10:17 Dose: 250 mg Budesonide/Formoterol Fumarate (Symbicort 160/4.5mcg -) 2 puff IH BID [facility] Last Admin: 07/27/18 21:27 Dose: 2 puff Clopidogrel Bisulfate (Plavix -) 75 mg PO DAILY [facility] Last Admin: 07/27/18 10:18 Dose: 75 mg Docusate Sodium (Colace -) 300 mg PO HS [facility] Last Admin: 07/27/18 21:26 Dose: 300 mg Fluticasone Propionate (Flonase -) 1 spray NS BID [facility] Last Admin: 07/27/18 21:27 Dose: 1 spray Folic Acid (Folic Acid -) 1 mg PO DAILY [facility] Last Admin: 07/27/18 10:18 Dose: 1 mg Furosemide (Lasix -) 40 mg PO DAILY [facility] Last Admin: 07/27/18 10:17 Dose: 40 mg Guaifenesin (Mucinex -) 600 mg PO BID [facility] Last Admin: 07/27/18 21:25 Dose: 600 mg Isosorbide Mononitrate (Imdur -) 30 mg PO BIDISMO [facility] Last Admin: 07/27/18 16:55 Dose: 30 mg Meclizine HCl (Antivert -) 25 mg PO Q6H PRN PRN Reason: VERTIGO Methylprednisolone Sodium Succinate (Solu-Medrol -) 20 mg IVPB BID [facility] Last Admin: 07/27/18 21:27 Dose: 20 mg Montelukast Sodium (Singulair -) 10 mg PO HS [facility] Last Admin: 07/27/18 21:26 Dose: 10 mg Nitroglycerin (Nitrostat -) 0.4 mg SL Q5M PRN PRN Reason: FOR CHEST PAIN Nystatin (Nystatin Oral Suspension -) 500,000 units PO BID [facility] Last Admin: 07/27/18 21:25 Dose: 500,000 units Pantoprazole Sodium (Protonix -) 40 mg PO DAILY [facility] Last Admin: 07/27/18 10:18 Dose: 40 mg Potassium Chloride (K-Dur -) 10 meq PO BID [facility] Last Admin: 07/27/18 21:25 Dose: 10 meq Ranitidine HCl (Zantac -) 150 mg PO DAILY [facility] Last Admin: 07/27/18 10:18 Dose: 150 mg Ranolazine (Ranexa -) 500 mg PO BID [facility] Last Admin: 07/27/18 21:26 Dose: 500 mg Sodium Chloride ([place]al [place] -) 2 spray NS TID [facility] Last Admin: 07/28/18 06:44 Dose: 2 spray Tiotropium [place] (Spiriva Respimat) 2 puff IH DAILY [facility] Last Admin: 07/27/18 10:19 Dose: 2 puff Verapamil HCl (Calan Sr -) 240 mg PO BID [facility] Last Admin: 07/27/18 21:26 Dose: 240 mg - Objective Vital Signs: Vital Signs Temperature 97.8 F 07/28/18 06:00 Pulse Rate 88 07/28/18 06:00 Respiratory Rate 20 07/28/18 06:00 Blood Pressure 126/62 07/28/18 06:00 O2 Sat by Pulse Oximetry (%) 98 07/27/18 21:00 Eyes: Yes: PERRL HENT: Yes: Atraumatic Neck: Yes: Supple Cardiovascular: Yes: Regular Rate and Rhythm, S1, S2 Respiratory: Yes: Diminished Gastrointestinal: Yes: Normal Bowel Sounds, Soft. 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 transplanted heart: [place] heart Associated angina: without angina Qualified Code(s): I25.10 - Atherosclerotic heart disease of [place] coronary artery without angina pectoris (10) Diastolic dysfunction Code(s): I51.9 - HEART DISEASE, UNSPECIFIED (11) H/O carotid endarterectomy Code(s): Z98.890 - OTHER SPECIFIED POSTPROCEDURAL STATES (12) HTN (hypertension) Code(s): I10 - ESSENTIAL (PRIMARY) HYPERTENSION Qualifiers: Hypertension type: essential hypertension Qualified Code(s): I10 - Essential (primary) hypertension (13) History of myocardial infarction Code(s): I25.2 - OLD MYOCARDIAL INFARCTION (14) Hyperlipidemia Code(s): E78.5 - HYPERLIPIDEMIA, UNSPECIFIED Qualifiers: Hyperlipidemia type: pure hypercholesterolemia Qualified Code(s): E78.00 - Pure hypercholesterolemia, unspecified; E78.0 - Pure hypercholesterolemia (15) Peripheral artery disease Code(s): I73.9 - PERIPHERAL VASCULAR DISEASE, UNSPECIFIED (16) Pneumonia Code(s): J18.9 - PNEUMONIA, UNSPECIFIED ORGANISM Assessment/Plan 1. Acute exacerbation of COPD and pneumonia improving and presence of pulmonary nodules 2. Diastolic dysfunction 3. CAD post [place] PCI, angina pectoris 4. Systolic murmur - AV sclerosis 5. HTN/HCVD 6. Hyperlipidemia 7. Bilateral carotid artery disease post right CEA 8. Mesenteric ischemia post SMA bypass 9. PAD post intervention w/o significant stenosis 10. Hyperkalemia 11. History of left frontal stroke 12. History of Renal Failure (required temporary dialysis 2011) PLAN: 1. Continue Calan SR 240 mg BID as tolerated 2. Continue Imdur 30 mg BID and Ranexa 500 mg BID 3. Off Diovan and Bystolic 4. Continue Lipitor 80 mg QHS 5. Continue Lasix 40 mg QD 6. Continue Plavix and ASA 7. 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
[2018-07-28] MEDS ORDERED: PT OWN MED DRAWER 7, Y5N ONE (10:25)
[2018-07-28] MEDS: NYSTATIN 500,000 UNITS/5 ML SUSPENSION PO SCH (10:27)
[2018-07-28] MEDS: RANOLAZINE E.R. 500 MG TABLET (FP) PO SCH (10:27)
[2018-07-28] MEDS: CLOPIDOGREL BISULFATE 75 MG TABLET (FP) PO SCH (10:27)
[2018-07-28] MEDS: ASPIRIN 81 MG CHEWABLE TABLETS PO SCH (10:27)
[2018-07-28] MEDS: ISOSORBIDE MONONITRATE 30 MG TAB.SR.24H (FP) PO SCH ×2 (10:27→16:51)
[2018-07-28] MEDS: FOLIC ACID 1 MG TABLET (FP) PO SCH (10:27)
[2018-07-28] MEDS: PANTOPRAZOLE 40 MG TABLET (FP) PO SCH (10:27)
[2018-07-28] MEDS: methylPREDNISolone NA SUCC 40 MG/1 ML VIAL IVPB SCH (10:27)
[2018-07-28] MEDS: AZITHROMYCIN 250 MG TABLET PO SCH (10:27)
[2018-07-28] MEDS: FUROSEMIDE 40 MG TABLET (FP) PO SCH (10:27)
[2018-07-28] MEDS: guaiFENesin 600 MG TABLET.ER (FP) PO SCH (10:27)
[2018-07-28] MEDS: RANITIDINE HCL 150 MG TABLET (FP) PO SCH (10:27)
[2018-07-28] MEDS: POTASSIUM CHLORIDE TABS 10 MEQ TABLET.ER (FP) PO SCH (10:27)
[2018-07-28] MEDS: VERAPAMIL HCL 240 MG E.R. TABLET (FP) PO SCH (10:28)
[2018-07-28] MEDS: FLUTICASONE PROP 0.05% 16 GM NASAL SPRAY NS SCH (10:30)
[2018-07-28] MEDS: TIOTROPIUM BROMIDE 2.5 MCG (SPIRIVA) RESPIMAT INHALER IH SCH (10:31)
[2018-07-28] MEDS: BUDESONIDE/FORMETEROL FUMARATE 160/4.5 mcg INHALER IH SCH (10:31)
--- NOTE | 2018-07-28 11:37 | PN ---
Progress Note (short form) - Note Progress Note: PULMONARY Breathing better today. Less cough and wheezing. Vital Signs Period Temp Pulse Resp BP Sys/Mann Pulse Ox Last 24 Hr 97.3 F-98.3 F 82-106 20-20 121-149/57-70 92-98 Gen: more tachypneic Heart: RRR Lung: worse air entry, scattered rhonchi, wheezes Abd: soft, nontender Ext: + edema CBC, BMP 07/25/18 06:25 07/25/18 06:25 Active Medications Acetaminophen (Tylenol -) 650 mg PO Q6H PRN PRN Reason: FEVER Last Admin: 07/21/18 09:51 Dose: 650 mg Al Hydroxide/Mg Hydroxide (Mylanta Oral Suspension -) 30 ml PO Q6H PRN PRN Reason: DYSPEPSIA Albuterol Sulfate (Ventolin 0.083% Nebulizer Soln -) 1 amp NEB RQID [facility] Last Admin: 07/28/18 11:21 Dose: 1 amp Albuterol Sulfate (Ventolin 0.083% Nebulizer Soln -) 1 amp NEB Q6H PRN PRN Reason: SHORT OF BREATH/WHEEZING Alprazolam (Xanax -) 0.25 mg PO Q12H PRN PRN Reason: ANXIETY Last Admin: 07/26/18 22:47 Dose: 0.25 mg Aspirin (Asa -) 81 mg PO DAILY [facility] Last Admin: 07/28/18 10:27 Dose: 81 mg Atorvastatin Calcium (Lipitor -) 80 mg PO [facility] Last Admin: 07/27/18 21:25 Dose: 80 mg Azithromycin (Zithromax -) 250 mg PO DAILY [facility] Last Admin: 07/28/18 10:27 Dose: 250 mg Budesonide/Formoterol Fumarate (Symbicort 160/4.5mcg -) 2 puff IH BID [facility] Last Admin: 07/28/18 10:31 Dose: 2 puff Clopidogrel Bisulfate (Plavix -) 75 mg PO DAILY [facility] Last Admin: 07/28/18 10:27 Dose: 75 mg Docusate Sodium (Colace -) 300 mg PO HS [facility] Last Admin: 07/27/18 21:26 Dose: 300 mg Fluticasone Propionate (Flonase -) 1 spray NS BID [facility] Last Admin: 01/03/19 10:30 Dose: 1 spray Folic Acid (Folic Acid -) 1 mg PO DAILY [facility] Last Admin: 07/28/18 10:27 Dose: 1 mg Furosemide (Lasix -) 40 mg PO DAILY [facility] Last Admin: 07/28/18 10:27 Dose: 40 mg Guaifenesin (Mucinex -) 600 mg PO BID [facility] Last Admin: 07/28/18 10:27 Dose: 600 mg Isosorbide Mononitrate (Imdur -) 30 mg PO BIDISMO [facility] Last Admin: 07/28/18 10:27 Dose: 30 mg Meclizine HCl (Antivert -) 25 mg PO Q6H PRN PRN Reason: VERTIGO Methylprednisolone Sodium Succinate (Solu-Medrol -) 20 mg IVPB BID [facility] Last Admin: 07/28/18 10:27 Dose: 20 mg Montelukast Sodium (Singulair -) 10 mg PO HS [facility] Last Admin: 07/27/18 21:26 Dose: 10 mg Nitroglycerin (Nitrostat -) 0.4 mg SL Q5M PRN PRN Reason: FOR CHEST PAIN Nystatin (Nystatin Oral Suspension -) 500,000 units PO BID [facility] Last Admin: 07/28/18 10:27 Dose: 500,000 units Pantoprazole Sodium (Protonix -) 40 mg PO DAILY [facility] Last Admin: 07/28/18 10:27 Dose: 40 mg Potassium Chloride (K-Dur -) 10 meq PO BID [facility] Last Admin: 07/28/18 10:27 Dose: 10 meq Ranitidine HCl (Zantac -) 150 mg PO DAILY [facility] Last Admin: 07/28/18 10:27 Dose: 150 mg Ranolazine (Ranexa -) 500 mg PO BID [facility] Last Admin: 07/28/18 10:27 Dose: 500 mg Sodium Chloride ([place] Nasal [place] -) 2 spray NS TID [facility] Last Admin: 07/28/18 06:44 Dose: 2 spray Tiotropium [place] (Spiriva Respimat) 2 puff IH DAILY [facility] Last Admin: 07/28/18 10:31 Dose: 2 puff Verapamil HCl (Calan Sr -) 240 mg PO BID [facility] Last Admin: 07/28/18 10:28 Dose: 240 mg A/P Acute COPD Exacerbation Pneumonia Lung Nodules CAD LV Diastolic Dysfunction HTN - can change steroids to PO and taper as outpt - inhaled bronchodilators standing and PRN - O2 to keep SpO2 >90% - continue antibiotics - outpt f/u of CT chest to ensure resolution - DVT prophylaxis - Rx given for nebulizer machine
[2018-07-28 14:54] VITALS: BP 152/65; PULSE 80; TEMP 97.8
== END 2018-07-28 17:31 | disposition home health service (06) | DRG 190 ==
LOC: JER 18:48 → JERBED 22:11 → J5S 07-09 01:36
PROVIDERS: ADMIT Internal Medicine; ATTEND Internal Medicine
PROC: 3E0F7GC Introduction of Other Therapeutic Substance into Respiratory Tract, Via Natural or Artificial Opening (ICD-10-PCS; principal; 2018-07-08)
DX: J44.1 Chronic obstructive pulmonary disease with (acute) exacerbation (principal); J18.9 Pneumonia, unspecified organism; I50.32 Chronic diastolic (congestive) heart failure; E87.1 Hypo-osmolality and hyponatremia; I11.0 Hypertensive heart disease with heart failure; I25.10 Atherosclerotic heart disease of native coronary artery without angina pectoris; I25.2 Old myocardial infarction; Z98.61 Coronary angioplasty status; I73.9 Peripheral vascular disease, unspecified; E78.00 Pure hypercholesterolemia, unspecified; Z87.891 Personal history of nicotine dependence; R91.1 Solitary pulmonary nodule; K22.70 Barrett's esophagus without dysplasia; I65.29 Occlusion and stenosis of unspecified carotid artery; B00.1 Herpesviral vesicular dermatitis; Z91.19 Patient's noncompliance with other medical treatment and regimen; Z86.73 Personal history of transient ischemic attack (TIA), and cerebral infarction without residual deficits; E87.5 Hyperkalemia; D72.829 Elevated white blood cell count, unspecified
CPT/HCPCS: 36415; 36600; 71045-TC-FY; 71046-TC-FY; 71250-TC; 80048; 80053; 82550; 82803; 83880; 84484; 85025; 85027; 93005; 93010; 94640; 94761; 99283-25

== ENCOUNTER 2022-07-24 14:23 | Inpatient (IN) | payer BC ==
[2022-07-24] MEDS ORDERED: ALBUTEROL SO4 2.5/IPRATROPIUM 0.5 INH SOL 3 ML VIAL.NEB. NEB ONE ×2 (15:28→15:43)
[2022-07-24] MEDS ORDERED: DEXAMETHASONE SOD PHOSPHATE 10 MG/1 ML VIAL IVPUSH ONE (16:06)
[2022-07-24] MEDS ORDERED: REMDESIVIR 200 MG in SODIUM CHLORIDE 250 ML IVPB ONE (16:07)
[2022-07-24] MEDS ORDERED: DEXAMETHASONE SOD PHOSPHATE 10 MG/1 ML VIAL ONE (16:13)
[2022-07-24 16:19] LABS: BASO % 0.6 % (0-2.0); EOS % 1.4 % (0-4.5); HEMATOCRIT 41.8 % (32.4-45.2); HEMOGLOBIN 13.6 GM/dL (10.7-15.3); LYMPH % 15.2 % (8-40); MCH 30.8 pg (25.7-33.7); MCHC 32.6 g/dl (32.0-36.0); MEAN CELL VOLUME 94.3 fl (80-96); MEAN PLT VOLUME 6.8 fl (7.5-11.1); MONO % 11.8 % (3.8-10.2); PLATELET COUNT 240 10^3/uL (134-434); RBC 4.44 M/mm3 (3.60-5.2); RDW 14.6 % (11.6-15.6); WHITE BLOOD COUNT 5.8 K/mm3 (4.0-10.0)
[2022-07-24 16:20] LABS: VENOUS BASE EXCESS 0.4 mmol/L (-2-2); VENOUS O2 SATURATION 83.2 % (70-80); VENOUS PCO2 56.7 mmHg (38-52); VENOUS PH 7.31 (7.310-7.410)
[2022-07-24 16:25] LABS: INR 1.02 (0.83-1.09); PROTHROMBIN TIME (PATIENT) 11.7 SEC (9.7-13.0)
[2022-07-24 16:32] LABS: CALCIUM 8.6 mg/dL (8.5-10.1)
[2022-07-24 16:33] LABS: ALBUMIN 3.7 g/dl (3.4-5.0)
[2022-07-24 16:35] LABS: CREATININE 0.7 mg/dL (0.55-1.3)
[2022-07-24 16:37] LABS: BILIRUBIN,TOTAL 0.3 mg/dL (0.2-1)
[2022-07-24] MEDS ORDERED: MAG HYDROX/AL HYDROX/SIMETH 30 ML UNIT-DOSE CUP PO PRN (19:24)
[2022-07-24] MEDS ORDERED: ALPRAZolam 0.25 MG TABLET PO PRN (19:24)
[2022-07-24] MEDS ORDERED: NITROGLYCERIN SUBLINGUAL 1/150 0.4 MG TAB SL PRN ×2 (19:24)
[2022-07-24] MEDS ORDERED: ACETAMINOPHEN 325 MG TABLET (FP) PO PRN (19:24)
[2022-07-24] MEDS ORDERED: MECLIZINE HCL 25 MG TABLET (FP) PO PRN (19:24)
[2022-07-24] MEDS ORDERED: ALBUTEROL SO4 0.083% IH SOL 2.5 MG/3 ML VIAL.NEB. NEB PRN (19:24)
[2022-07-24] MEDS ORDERED: guaiFENesin/D-METHORPHAN HB 10 ML UNIT-DOSE CUPS PO PRN (19:24)
[2022-07-24] MEDS ORDERED: POTASSIUM CHLORIDE TABS 10 MEQ TABLET.ER (FP) ONE (20:48)
[2022-07-24] MEDS ORDERED: ATORVASTATIN CA 80 MG TABLET (FP) ONE (20:49)
[2022-07-24] MEDS ORDERED: DOCUSATE SODIUM 100 MG CAPSULE (FP) PO ONE (20:49)
[2022-07-24] MEDS ORDERED: ISOSORBIDE MONONITRATE 30 MG TAB.SR.24H (FP) PO ONE (20:49)
[2022-07-24] MEDS ORDERED: MONTELUKAST NA 10 MG TABLET ONE (20:49)
[2022-07-24] MEDS ORDERED: HEPARIN NA (PORCINE) 5,000 UNITS/ML 1ML VIAL ONE (20:49)
[2022-07-24] MEDS ORDERED: RANOLAZINE E.R. 500 MG TABLET (FP) ONE (20:49)
[2022-07-24] MEDS: DOCUSATE SODIUM 100 MG CAPSULE (FP) PO SCH (21:03)
[2022-07-24] MEDS: VERAPAMIL HCL 240 MG E.R. TABLET PO SCH (21:03)
[2022-07-24] MEDS: HEPARIN NA (PORCINE) 5,000 UNITS/ML 1ML VIAL SQ SCH (21:03)
[2022-07-24] MEDS: MONTELUKAST NA 10 MG TABLET PO SCH (21:04)
[2022-07-24] MEDS: RANOLAZINE E.R. 500 MG TABLET (FP) PO SCH (21:04)
[2022-07-24] MEDS: BUDESONIDE/FORMETEROL FUMARATE 160/4.5 mcg INHALER IH SCH (21:04)
[2022-07-24] MEDS: ISOSORBIDE MONONITRATE 30 MG TAB.SR.24H (FP) PO SCH (21:04)
[2022-07-24] MEDS: POTASSIUM CHLORIDE TABS 10 MEQ TABLET.ER (FP) PO SCH (21:04)
[2022-07-24] MEDS: ATORVASTATIN CA 80 MG TABLET (FP) PO SCH (21:04)
[2022-07-24] MEDS: SODIUM CHLORIDE NASAL SPRAY 44 ML BOTTLE NS SCH (21:04)
[2022-07-24] MEDS: guaiFENesin 600 MG TABLET.ER (FP) PO SCH (21:04)
[2022-07-25] MEDS ORDERED: ALBUTEROL SO4 2.5/IPRATROPIUM 0.5 INH SOL 3 ML VIAL.NEB. NEB ONE ×2 (02:47→08:32)
[2022-07-25] MEDS: ALBUTEROL SO4 2.5/IPRATROPIUM 0.5 INH SOL 3 ML VIAL.NEB. NEB PRN ×2 (02:52→08:39)
[2022-07-25] MEDS ORDERED: FUROSEMIDE 20 MG TABLET (FP) ONE ×2 (05:47→14:12)
[2022-07-25] MEDS: FUROSEMIDE 20 MG TABLET (FP) PO SCH ×2 (06:04→15:00)
[2022-07-25] MEDS: SODIUM CHLORIDE NASAL SPRAY 44 ML BOTTLE NS SCH ×3 (06:04→21:36)
[2022-07-25] MEDS ORDERED: FAMOTIDINE 20 MG TABLET ONE (09:22)
[2022-07-25] MEDS ORDERED: PANTOPRAZOLE 40 MG TABLET PO ONE (09:22)
[2022-07-25] MEDS ORDERED: POTASSIUM CHLORIDE TABS 10 MEQ TABLET.ER (FP) ONE ×2 (09:22→21:24)
[2022-07-25] MEDS ORDERED: FOLIC ACID 1 MG TABLET (FP) ONE (09:23)
[2022-07-25] MEDS ORDERED: CLOPIDOGREL BISULFATE 75 MG TABLET (FP) ONE (09:23)
[2022-07-25] MEDS ORDERED: DEXAMETHASONE SOD PHOSPHATE 10 MG/1 ML VIAL ONE (09:23)
[2022-07-25] MEDS ORDERED: RANOLAZINE E.R. 500 MG TABLET (FP) ONE ×2 (09:24→21:25)
[2022-07-25] MEDS ORDERED: ISOSORBIDE MONONITRATE 30 MG TAB.SR.24H (FP) PO ONE ×2 (09:24→21:25)
[2022-07-25] MEDS ORDERED: ASPIRIN 81 MG CHEWABLE TABLETS ONE (09:24)
[2022-07-25] MEDS ORDERED: guaiFENesin/CODEINE 10 ML UNIT-DOSE CUPS ONE (09:24)
[2022-07-25] MEDS ORDERED: HEPARIN NA (PORCINE) 5,000 UNITS/ML 1ML VIAL ONE ×2 (09:25→21:25)
[2022-07-25] MEDS ORDERED: DEXAMETHASONE SOD PHOSPHATE 10 MG/1 ML VIAL IVPUSH SCH (10:00)
[2022-07-25] MEDS: HEPARIN NA (PORCINE) 5,000 UNITS/ML 1ML VIAL SQ SCH ×2 (10:11→21:36)
[2022-07-25] MEDS: BUDESONIDE/FORMETEROL FUMARATE 160/4.5 mcg INHALER IH SCH ×2 (10:12→21:37)
[2022-07-25] MEDS: ASPIRIN 81 MG CHEWABLE TABLETS PO SCH (10:53)
[2022-07-25] MEDS: VERAPAMIL HCL 240 MG E.R. TABLET PO SCH (10:53)
[2022-07-25] MEDS: CLOPIDOGREL BISULFATE 75 MG TABLET (FP) PO SCH (10:54)
[2022-07-25] MEDS: guaiFENesin 600 MG TABLET.ER (FP) PO SCH (10:54)
[2022-07-25] MEDS: POTASSIUM CHLORIDE TABS 10 MEQ TABLET.ER (FP) PO SCH ×2 (10:54→21:36)
[2022-07-25] MEDS: FOLIC ACID 1 MG TABLET (FP) PO SCH (10:54)
[2022-07-25] MEDS: ISOSORBIDE MONONITRATE 30 MG TAB.SR.24H (FP) PO SCH ×2 (10:54→21:36)
[2022-07-25] MEDS: PANTOPRAZOLE 40 MG TABLET PO SCH (10:54)
[2022-07-25] MEDS: REMDESIVIR 100 MG in SODIUM CHLORIDE 250 ML IVPB SCH (10:54)
[2022-07-25] MEDS: FAMOTIDINE 20 MG TABLET PO SCH (10:54)
[2022-07-25] MEDS: RANOLAZINE E.R. 500 MG TABLET (FP) PO SCH ×2 (10:54→21:37)
[2022-07-25] MEDS: TIOTROPIUM BROMIDE 2.5 MCG (SPIRIVA) RESPIMAT INHALER IH SCH (10:57)
[2022-07-25] MEDS ORDERED: methylPREDNISolone NA SUCC 40 MG/1 ML VIAL ONE (17:29)
[2022-07-25] MEDS: methylPREDNISolone NA SUCC 40 MG/1 ML VIAL IVPUSH SCH (17:36)
[2022-07-25] MEDS: CELECOXIB 100 MG CAPSULE PO SCH (17:53)
[2022-07-25] MEDS ORDERED: ACETAMINOPHEN 325 MG TABLET (FP) ONE (18:35)
[2022-07-25] MEDS ORDERED: ATORVASTATIN CA 80 MG TABLET (FP) ONE (21:24)
[2022-07-25] MEDS ORDERED: MONTELUKAST NA 10 MG TABLET ONE (21:25)
[2022-07-25] MEDS ORDERED: DOCUSATE SODIUM 100 MG CAPSULE (FP) PO ONE (21:25)
[2022-07-25] MEDS: DOCUSATE SODIUM 100 MG CAPSULE (FP) PO SCH (21:36)
[2022-07-25] MEDS: ATORVASTATIN CA 80 MG TABLET (FP) PO SCH (21:36)
[2022-07-25] MEDS: MONTELUKAST NA 10 MG TABLET PO SCH (21:37)
[2022-07-26 06:19] LABS: BASO % 0.2 % (0-2.0); HEMATOCRIT 37.2 % (32.4-45.2); HEMOGLOBIN 12.1 GM/dL (10.7-15.3); LYMPH % 8.3 % (8-40); MCH 30.7 pg (25.7-33.7); MCHC 32.6 g/dl (32.0-36.0); MEAN CELL VOLUME 94.2 fl (80-96); MEAN PLT VOLUME 6.9 fl (7.5-11.1); MONO % 5.5 % (3.8-10.2); PLATELET COUNT 222 10^3/uL (134-434); RBC 3.95 M/mm3 (3.60-5.2); RDW 14.6 % (11.6-15.6); WHITE BLOOD COUNT 8.3 K/mm3 (4.0-10.0)
[2022-07-26 06:40] LABS: ALBUMIN 3.1 g/dl (3.4-5.0); BLOOD UREA NITROGEN 25.2 mg/dL (7-18); CALCIUM 8.7 mg/dL (8.5-10.1)
[2022-07-26 06:43] LABS: CREATININE 0.9 mg/dL (0.55-1.3)
[2022-07-26 06:45] LABS: BILIRUBIN,TOTAL 0.4 mg/dL (0.2-1); TOT PROT 6.1 g/dl (6.4-8.2)
[2022-07-26] MEDS ORDERED: PANTOPRAZOLE 40 MG TABLET PO ONE (08:51)
[2022-07-26] MEDS ORDERED: FAMOTIDINE 20 MG TABLET ONE (08:51)
[2022-07-26] MEDS ORDERED: POTASSIUM CHLORIDE TABS 10 MEQ TABLET.ER (FP) ONE (08:52)
[2022-07-26] MEDS ORDERED: ASPIRIN 81 MG CHEWABLE TABLETS ONE (08:52)
[2022-07-26] MEDS ORDERED: FOLIC ACID 1 MG TABLET (FP) ONE (08:52)
[2022-07-26] MEDS ORDERED: CLOPIDOGREL BISULFATE 75 MG TABLET (FP) ONE (08:52)
[2022-07-26] MEDS ORDERED: HEPARIN NA (PORCINE) 5,000 UNITS/ML 1ML VIAL ONE (08:53)
[2022-07-26] MEDS ORDERED: FUROSEMIDE 20 MG TABLET (FP) ONE ×2 (08:53→15:49)
[2022-07-26] MEDS ORDERED: RANOLAZINE E.R. 500 MG TABLET (FP) ONE (08:53)
[2022-07-26] MEDS ORDERED: ISOSORBIDE MONONITRATE 30 MG TAB.SR.24H (FP) PO ONE ×2 (08:53→09:01)
[2022-07-26] MEDS: methylPREDNISolone NA SUCC 40 MG/1 ML VIAL IVPUSH SCH ×2 (09:02→09:10)
[2022-07-26] MEDS ORDERED: methylPREDNISolone NA SUCC 40 MG/1 ML VIAL ONE ×3 (09:03→16:06)
[2022-07-26] MEDS: FAMOTIDINE 20 MG TABLET PO SCH (09:09)
[2022-07-26] MEDS: FUROSEMIDE 20 MG TABLET (FP) PO SCH ×2 (09:09→15:55)
[2022-07-26] MEDS: ASPIRIN 81 MG CHEWABLE TABLETS PO SCH (09:09)
[2022-07-26] MEDS: HEPARIN NA (PORCINE) 5,000 UNITS/ML 1ML VIAL SQ SCH (09:09)
[2022-07-26] MEDS: CLOPIDOGREL BISULFATE 75 MG TABLET (FP) PO SCH (09:09)
[2022-07-26] MEDS: POTASSIUM CHLORIDE TABS 10 MEQ TABLET.ER (FP) PO SCH (09:09)
[2022-07-26] MEDS: PANTOPRAZOLE 40 MG TABLET PO SCH (09:09)
[2022-07-26] MEDS: RANOLAZINE E.R. 500 MG TABLET (FP) PO SCH (09:09)
[2022-07-26] MEDS: FOLIC ACID 1 MG TABLET (FP) PO SCH (09:09)
[2022-07-26] MEDS: ISOSORBIDE MONONITRATE 30 MG TAB.SR.24H (FP) PO SCH (09:13)
[2022-07-26] MEDS: SODIUM CHLORIDE NASAL SPRAY 44 ML BOTTLE NS SCH ×2 (09:23→16:05)
[2022-07-26] MEDS ORDERED: ALBUTEROL SO4 2.5/IPRATROPIUM 0.5 INH SOL 3 ML VIAL.NEB. NEB ONE (09:31)
[2022-07-26] MEDS: ALBUTEROL SO4 2.5/IPRATROPIUM 0.5 INH SOL 3 ML VIAL.NEB. NEB PRN (09:38)
[2022-07-26] MEDS: CELECOXIB 100 MG CAPSULE PO SCH (09:38)
[2022-07-26] MEDS: REMDESIVIR 100 MG in SODIUM CHLORIDE 250 ML IVPB SCH (11:38)
[2022-07-26] MEDS: TIOTROPIUM BROMIDE 2.5 MCG (SPIRIVA) RESPIMAT INHALER IH SCH (12:15)
[2022-07-26] MEDS: BUDESONIDE/FORMETEROL FUMARATE 160/4.5 mcg INHALER IH SCH (12:22)
[2022-07-26] MEDS ORDERED: ALBUTEROL SO4 0.083% IH SOL 2.5 MG/3 ML VIAL.NEB. NEB ONE (15:49)
[2022-07-26] MEDS: ALBUTEROL SO4 0.083% IH SOL 2.5 MG/3 ML VIAL.NEB. NEB SCH (15:55)
[2022-07-26] MEDS ORDERED: MECLIZINE HCL 25 MG TABLET (FP) ONE (15:56)
[2022-07-26] MEDS ORDERED: ONDANSETRON 4 MG/2 ML VIAL IVPB PRN (16:08)
[2022-07-26] MEDS: methylPREDNISolone NA SUCC 125 MG/2 ML VIAL IVPUSH SCH (17:13)
[2022-07-27] MEDS ORDERED: ATORVASTATIN CA 80 MG TABLET (FP) ONE (00:57)
[2022-07-27] MEDS ORDERED: MONTELUKAST NA 10 MG TABLET ONE (00:57)
[2022-07-27] MEDS ORDERED: POTASSIUM CHLORIDE TABS 10 MEQ TABLET.ER (FP) ONE ×2 (00:57→08:59)
[2022-07-27] MEDS ORDERED: DOCUSATE SODIUM 100 MG CAPSULE (FP) PO ONE (00:57)
[2022-07-27] MEDS ORDERED: RANOLAZINE E.R. 500 MG TABLET (FP) ONE ×2 (00:58→09:03)
[2022-07-27] MEDS ORDERED: HEPARIN NA (PORCINE) 5,000 UNITS/ML 1ML VIAL ONE ×2 (00:58→09:00)
[2022-07-27] MEDS: guaiFENesin 600 MG TABLET.ER (FP) PO SCH ×5 (01:01→22:09)
[2022-07-27] MEDS: VERAPAMIL HCL 240 MG E.R. TABLET PO SCH ×5 (01:01→22:14)
[2022-07-27] MEDS ORDERED: ISOSORBIDE MONONITRATE 30 MG TAB.SR.24H (FP) PO ONE ×2 (01:04→09:00)
[2022-07-27] MEDS: HEPARIN NA (PORCINE) 5,000 UNITS/ML 1ML VIAL SQ SCH ×3 (01:20→22:07)
[2022-07-27] MEDS: DOCUSATE SODIUM 100 MG CAPSULE (FP) PO SCH ×2 (01:20→22:13)
[2022-07-27] MEDS: RANOLAZINE E.R. 500 MG TABLET (FP) PO SCH ×3 (01:21→22:06)
[2022-07-27] MEDS: ATORVASTATIN CA 80 MG TABLET (FP) PO SCH ×2 (01:21→22:06)
[2022-07-27] MEDS: MONTELUKAST NA 10 MG TABLET PO SCH ×2 (01:21→22:06)
[2022-07-27] MEDS: POTASSIUM CHLORIDE TABS 10 MEQ TABLET.ER (FP) PO SCH ×3 (01:21→22:09)
[2022-07-27] MEDS: ISOSORBIDE MONONITRATE 30 MG TAB.SR.24H (FP) PO SCH ×3 (01:21→22:06)
[2022-07-27] MEDS ORDERED: ALBUTEROL SO4 0.083% IH SOL 2.5 MG/3 ML VIAL.NEB. NEB ONE ×2 (01:23→13:43)
[2022-07-27] MEDS: BUDESONIDE/FORMETEROL FUMARATE 160/4.5 mcg INHALER IH SCH ×2 (01:35→09:21)
[2022-07-27] MEDS: ALBUTEROL SO4 0.083% IH SOL 2.5 MG/3 ML VIAL.NEB. NEB SCH ×4 (01:35→21:45)
[2022-07-27] MEDS: SODIUM CHLORIDE NASAL SPRAY 44 ML BOTTLE NS SCH ×3 (01:54→13:40)
[2022-07-27] MEDS ORDERED: methylPREDNISolone NA SUCC 40 MG/1 ML VIAL ONE ×2 (02:53→09:00)
[2022-07-27] MEDS: methylPREDNISolone NA SUCC 125 MG/2 ML VIAL IVPUSH SCH ×3 (03:01→18:15)
[2022-07-27] MEDS ORDERED: FUROSEMIDE 20 MG TABLET (FP) ONE ×2 (06:04→13:34)
[2022-07-27] MEDS: FUROSEMIDE 20 MG TABLET (FP) PO SCH ×2 (06:12→13:40)
[2022-07-27 08:48] LABS: HEMATOCRIT 36.7 % (32.4-45.2); MCH 30.7 pg (25.7-33.7); MCHC 32.7 g/dl (32.0-36.0); MEAN CELL VOLUME 93.9 fl (80-96); MEAN PLT VOLUME 7.3 fl (7.5-11.1); MONO % 3.3 % (3.8-10.2); NEUT % 90.7 % (42.8-82.8); PLATELET COUNT 250 10^3/uL (134-434); RBC 3.91 M/mm3 (3.60-5.2); RDW 14.7 % (11.6-15.6); WHITE BLOOD COUNT 7.6 K/mm3 (4.0-10.0)
[2022-07-27] MEDS ORDERED: PANTOPRAZOLE 40 MG TABLET PO ONE (08:59)
[2022-07-27] MEDS ORDERED: CLOPIDOGREL BISULFATE 75 MG TABLET (FP) ONE (08:59)
[2022-07-27] MEDS ORDERED: FAMOTIDINE 20 MG TABLET ONE (08:59)
[2022-07-27] MEDS ORDERED: FOLIC ACID 1 MG TABLET (FP) ONE (08:59)
[2022-07-27] MEDS ORDERED: ASPIRIN 81 MG CHEWABLE TABLETS ONE (09:00)
[2022-07-27] MEDS ORDERED: CEFTRIAXONE 2 GM/100 ML BAG IVPB ONE (09:03)
[2022-07-27 09:09] LABS: CALCIUM 8.6 mg/dL (8.5-10.1)
[2022-07-27 09:10] LABS: ALBUMIN 3.2 g/dl (3.4-5.0)
[2022-07-27 09:12] LABS: CREATININE 0.6 mg/dL (0.55-1.3)
[2022-07-27 09:13] LABS: BILIRUBIN,TOTAL 0.5 mg/dL (0.2-1)
[2022-07-27] MEDS: FOLIC ACID 1 MG TABLET (FP) PO SCH (09:20)
[2022-07-27] MEDS: FAMOTIDINE 20 MG TABLET PO SCH (09:20)
[2022-07-27] MEDS: CLOPIDOGREL BISULFATE 75 MG TABLET (FP) PO SCH (09:20)
[2022-07-27] MEDS: ASPIRIN 81 MG CHEWABLE TABLETS PO SCH (09:20)
[2022-07-27] MEDS: TIOTROPIUM BROMIDE 2.5 MCG (SPIRIVA) RESPIMAT INHALER IH SCH (09:21)
[2022-07-27] MEDS: PANTOPRAZOLE 40 MG TABLET PO SCH (09:21)
[2022-07-27] MEDS: REMDESIVIR 100 MG in SODIUM CHLORIDE 250 ML IVPB SCH (10:09)
[2022-07-27] MEDS: CELECOXIB 100 MG CAPSULE PO SCH (10:42)
[2022-07-27] MEDS ORDERED: methylPREDNISolone NA SUCC 125 MG/2 ML VIAL ONE (18:16)
[2022-07-27] MEDS: MELATONIN 5 MG TABLETS PO PRN (22:06)
[2022-07-28 01:47] VITALS: BMI 27.4
[2022-07-28] MEDS: SODIUM CHLORIDE NASAL SPRAY 44 ML BOTTLE NS SCH ×3 (02:05→13:40)
[2022-07-28] MEDS: BUDESONIDE/FORMETEROL FUMARATE 160/4.5 mcg INHALER IH SCH ×2 (02:06→10:30)
[2022-07-28] MEDS: methylPREDNISolone NA SUCC 125 MG/2 ML VIAL IVPUSH SCH ×3 (02:17→17:13)
[2022-07-28] MEDS: FUROSEMIDE 20 MG TABLET (FP) PO SCH ×2 (06:16→13:40)
[2022-07-28] MEDS: ALBUTEROL SO4 0.083% IH SOL 2.5 MG/3 ML VIAL.NEB. NEB SCH ×3 (08:51→20:11)
[2022-07-28] MEDS: CLOPIDOGREL BISULFATE 75 MG TABLET (FP) PO SCH (10:28)
[2022-07-28] MEDS: FAMOTIDINE 20 MG TABLET PO SCH (10:28)
[2022-07-28] MEDS: guaiFENesin 600 MG TABLET.ER (FP) PO SCH (10:28)
[2022-07-28] MEDS: POTASSIUM CHLORIDE TABS 10 MEQ TABLET.ER (FP) PO SCH (10:28)
[2022-07-28] MEDS: ISOSORBIDE MONONITRATE 30 MG TAB.SR.24H (FP) PO SCH (10:28)
[2022-07-28] MEDS: VERAPAMIL HCL 240 MG E.R. TABLET PO SCH (10:28)
[2022-07-28] MEDS: PANTOPRAZOLE 40 MG TABLET PO SCH (10:29)
[2022-07-28] MEDS: RANOLAZINE E.R. 500 MG TABLET (FP) PO SCH (10:29)
[2022-07-28] MEDS: ASPIRIN 81 MG CHEWABLE TABLETS PO SCH (10:29)
[2022-07-28] MEDS: REMDESIVIR 100 MG in SODIUM CHLORIDE 250 ML IVPB SCH (10:29)
[2022-07-28] MEDS: FOLIC ACID 1 MG TABLET (FP) PO SCH (10:29)
[2022-07-28] MEDS: HEPARIN NA (PORCINE) 5,000 UNITS/ML 1ML VIAL SQ SCH (10:30)
[2022-07-28] MEDS: CELECOXIB 100 MG CAPSULE PO SCH (10:30)
[2022-07-28] MEDS: TIOTROPIUM BROMIDE 2.5 MCG (SPIRIVA) RESPIMAT INHALER IH SCH (10:30)
[2022-07-29] MEDS: VERAPAMIL HCL 240 MG E.R. TABLET PO SCH ×3 (00:22→22:00)
[2022-07-29] MEDS: HEPARIN NA (PORCINE) 5,000 UNITS/ML 1ML VIAL SQ SCH ×3 (00:22→11:18)
[2022-07-29] MEDS: DOCUSATE SODIUM 100 MG CAPSULE (FP) PO SCH ×3 (00:22→22:10)
[2022-07-29] MEDS: POTASSIUM CHLORIDE TABS 10 MEQ TABLET.ER (FP) PO SCH ×3 (00:23→22:01)
[2022-07-29] MEDS: guaiFENesin 600 MG TABLET.ER (FP) PO SCH ×3 (00:23→22:01)
[2022-07-29] MEDS: ISOSORBIDE MONONITRATE 30 MG TAB.SR.24H (FP) PO SCH ×3 (00:23→22:00)
[2022-07-29] MEDS: ATORVASTATIN CA 80 MG TABLET (FP) PO SCH ×2 (00:23→22:01)
[2022-07-29] MEDS: SODIUM CHLORIDE NASAL SPRAY 44 ML BOTTLE NS SCH ×2 (00:23→22:09)
[2022-07-29] MEDS: MONTELUKAST NA 10 MG TABLET PO SCH ×2 (00:24→22:01)
[2022-07-29] MEDS: BUDESONIDE/FORMETEROL FUMARATE 160/4.5 mcg INHALER IH SCH ×3 (00:24→22:09)
[2022-07-29] MEDS: RANOLAZINE E.R. 500 MG TABLET (FP) PO SCH ×3 (00:24→22:01)
[2022-07-29] MEDS: methylPREDNISolone NA SUCC 125 MG/2 ML VIAL IVPUSH SCH ×2 (02:55→10:57)
[2022-07-29 08:14] LABS: HEMATOCRIT 37.6 % (32.4-45.2); HEMOGLOBIN 12.5 GM/dL (10.7-15.3); MCHC 33.3 g/dl (32.0-36.0); MEAN CELL VOLUME 93.2 fl (80-96); MEAN PLT VOLUME 7.6 fl (7.5-11.1); PLATELET COUNT 270 10^3/uL (134-434); RBC 4.04 M/mm3 (3.60-5.2); WHITE BLOOD COUNT 6.8 K/mm3 (4.0-10.0)
[2022-07-29] MEDS: ALBUTEROL SO4 0.083% IH SOL 2.5 MG/3 ML VIAL.NEB. NEB SCH ×3 (08:15→20:46)
[2022-07-29 08:43] LABS: BLOOD UREA NITROGEN 22.2 mg/dL (7-18); CALCIUM 8.8 mg/dL (8.5-10.1)
[2022-07-29 08:44] LABS: ALBUMIN 3.1 g/dl (3.4-5.0); CREATININE 0.8 mg/dL (0.55-1.3)
[2022-07-29 08:45] LABS: BILIRUBIN,TOTAL 0.4 mg/dL (0.2-1)
[2022-07-29 08:46] LABS: TOT PROT 5.7 g/dl (6.4-8.2)
[2022-07-29 09:19] LABS: ANISOCYTOSIS 0; MACROCYTOSIS 0
[2022-07-29] MEDS: CELECOXIB 100 MG CAPSULE PO SCH (10:56)
[2022-07-29] MEDS: CLOPIDOGREL BISULFATE 75 MG TABLET (FP) PO SCH (10:57)
[2022-07-29] MEDS: PANTOPRAZOLE 40 MG TABLET PO SCH (10:57)
[2022-07-29] MEDS: FOLIC ACID 1 MG TABLET (FP) PO SCH (10:57)
[2022-07-29] MEDS: FAMOTIDINE 20 MG TABLET PO SCH (10:57)
[2022-07-29] MEDS: ASPIRIN 81 MG CHEWABLE TABLETS PO SCH (10:58)
[2022-07-29] MEDS: TIOTROPIUM BROMIDE 2.5 MCG (SPIRIVA) RESPIMAT INHALER IH SCH (10:59)
[2022-07-29] MEDS: methylPREDNISolone NA SUCC 40 MG/1 ML VIAL IVPUSH SCH ×2 (12:15→22:02)
[2022-07-29 12:16] LABS: HELMET CELLS 0; HOWELL-JOLLY BODIES 0; OVALOCYTE 0; ROULEAU 0; SICKELED CELLS 0; TARGET CELLS 0; TEAR DROP CELLS 0; TOXIC GRANULATION 0
[2022-07-30] MEDS: FUROSEMIDE 20 MG TABLET (FP) PO SCH ×2 (06:51→06:52)
[2022-07-30] MEDS: SODIUM CHLORIDE NASAL SPRAY 44 ML BOTTLE NS SCH ×2 (06:52→21:46)
[2022-07-30] MEDS: ALBUTEROL SO4 0.083% IH SOL 2.5 MG/3 ML VIAL.NEB. NEB SCH ×3 (08:12→20:45)
[2022-07-30] MEDS: POTASSIUM CHLORIDE TABS 10 MEQ TABLET.ER (FP) PO SCH ×2 (10:09→21:47)
[2022-07-30] MEDS: PANTOPRAZOLE 40 MG TABLET PO SCH (10:09)
[2022-07-30] MEDS: ISOSORBIDE MONONITRATE 30 MG TAB.SR.24H (FP) PO SCH ×2 (10:09→21:47)
[2022-07-30] MEDS: guaiFENesin 600 MG TABLET.ER (FP) PO SCH ×2 (10:09→21:47)
[2022-07-30] MEDS: CLOPIDOGREL BISULFATE 75 MG TABLET (FP) PO SCH (10:09)
[2022-07-30] MEDS: FAMOTIDINE 20 MG TABLET PO SCH (10:09)
[2022-07-30] MEDS: methylPREDNISolone NA SUCC 40 MG/1 ML VIAL IVPUSH SCH ×2 (10:09→21:48)
[2022-07-30] MEDS: ASPIRIN 81 MG CHEWABLE TABLETS PO SCH (10:09)
[2022-07-30] MEDS: RANOLAZINE E.R. 500 MG TABLET (FP) PO SCH ×2 (10:09→22:01)
[2022-07-30] MEDS: FOLIC ACID 1 MG TABLET (FP) PO SCH (10:09)
[2022-07-30] MEDS: VERAPAMIL HCL 240 MG E.R. TABLET PO SCH ×2 (10:09→21:46)
[2022-07-30] MEDS: BUDESONIDE/FORMETEROL FUMARATE 160/4.5 mcg INHALER IH SCH ×2 (10:13→21:48)
[2022-07-30] MEDS: CELECOXIB 100 MG CAPSULE PO SCH (10:13)
[2022-07-30] MEDS: TIOTROPIUM BROMIDE 2.5 MCG (SPIRIVA) RESPIMAT INHALER IH SCH (10:13)
[2022-07-30] MEDS: MONTELUKAST NA 10 MG TABLET PO SCH (21:47)
[2022-07-30] MEDS: ATORVASTATIN CA 80 MG TABLET (FP) PO SCH (21:47)
[2022-07-30] MEDS: DOCUSATE SODIUM 100 MG CAPSULE (FP) PO SCH (21:56)
[2022-07-30] MEDS: MELATONIN 5 MG TABLETS PO PRN (21:56)
[2022-07-31] MEDS: SODIUM CHLORIDE NASAL SPRAY 44 ML BOTTLE NS SCH ×3 (06:37→21:24)
[2022-07-31] MEDS: FUROSEMIDE 20 MG TABLET (FP) PO SCH ×2 (06:37→13:11)
[2022-07-31] MEDS: ALBUTEROL SO4 0.083% IH SOL 2.5 MG/3 ML VIAL.NEB. NEB SCH (07:45)
[2022-07-31] MEDS: PANTOPRAZOLE 40 MG TABLET PO SCH (09:27)
[2022-07-31] MEDS: POTASSIUM CHLORIDE TABS 10 MEQ TABLET.ER (FP) PO SCH ×2 (09:27→21:17)
[2022-07-31] MEDS: guaiFENesin 600 MG TABLET.ER (FP) PO SCH ×2 (09:27→21:17)
[2022-07-31] MEDS: ASPIRIN 81 MG CHEWABLE TABLETS PO SCH (09:27)
[2022-07-31] MEDS: RANOLAZINE E.R. 500 MG TABLET (FP) PO SCH ×2 (09:27→21:17)
[2022-07-31] MEDS: ISOSORBIDE MONONITRATE 30 MG TAB.SR.24H (FP) PO SCH ×2 (09:27→21:17)
[2022-07-31] MEDS: VERAPAMIL HCL 240 MG E.R. TABLET PO SCH ×2 (09:27→21:16)
[2022-07-31] MEDS: CLOPIDOGREL BISULFATE 75 MG TABLET (FP) PO SCH (09:28)
[2022-07-31] MEDS: FAMOTIDINE 20 MG TABLET PO SCH (09:28)
[2022-07-31] MEDS: CELECOXIB 100 MG CAPSULE PO SCH (09:29)
[2022-07-31] MEDS: FOLIC ACID 1 MG TABLET (FP) PO SCH (09:29)
[2022-07-31] MEDS: methylPREDNISolone NA SUCC 40 MG/1 ML VIAL IVPUSH SCH ×2 (09:30→21:18)
[2022-07-31] MEDS: TIOTROPIUM BROMIDE 2.5 MCG (SPIRIVA) RESPIMAT INHALER IH SCH (09:31)
[2022-07-31] MEDS: BUDESONIDE/FORMETEROL FUMARATE 160/4.5 mcg INHALER IH SCH ×2 (09:31→21:24)
[2022-07-31] MEDS: DOCUSATE SODIUM 100 MG CAPSULE (FP) PO SCH (21:16)
[2022-07-31] MEDS: MONTELUKAST NA 10 MG TABLET PO SCH (21:17)
[2022-07-31] MEDS: ATORVASTATIN CA 80 MG TABLET (FP) PO SCH (21:17)
[2022-07-31] MEDS: ALBUTEROL SO4 2.5/IPRATROPIUM 0.5 INH SOL 3 ML VIAL.NEB. NEB PRN (23:48)
[2022-08-01] MEDS: SODIUM CHLORIDE NASAL SPRAY 44 ML BOTTLE NS SCH ×3 (06:47→22:02)
[2022-08-01] MEDS: FUROSEMIDE 20 MG TABLET (FP) PO SCH ×3 (06:47→14:34)
[2022-08-01] MEDS: CLOPIDOGREL BISULFATE 75 MG TABLET (FP) PO SCH (10:03)
[2022-08-01] MEDS: POTASSIUM CHLORIDE TABS 10 MEQ TABLET.ER (FP) PO SCH ×2 (10:03→22:47)
[2022-08-01] MEDS: ISOSORBIDE MONONITRATE 30 MG TAB.SR.24H (FP) PO SCH ×2 (10:03→22:47)
[2022-08-01] MEDS: guaiFENesin 600 MG TABLET.ER (FP) PO SCH ×2 (10:03→22:47)
[2022-08-01] MEDS: VERAPAMIL HCL 240 MG E.R. TABLET PO SCH ×2 (10:03→22:47)
[2022-08-01] MEDS: FAMOTIDINE 20 MG TABLET PO SCH (10:04)
[2022-08-01] MEDS: ASPIRIN 81 MG CHEWABLE TABLETS PO SCH (10:04)
[2022-08-01] MEDS: methylPREDNISolone NA SUCC 40 MG/1 ML VIAL IVPUSH SCH ×2 (10:04→17:29)
[2022-08-01] MEDS: FOLIC ACID 1 MG TABLET (FP) PO SCH (10:04)
[2022-08-01] MEDS: PANTOPRAZOLE 40 MG TABLET PO SCH (10:04)
[2022-08-01] MEDS: TIOTROPIUM BROMIDE 2.5 MCG (SPIRIVA) RESPIMAT INHALER IH SCH (10:04)
[2022-08-01] MEDS: BUDESONIDE/FORMETEROL FUMARATE 160/4.5 mcg INHALER IH SCH ×2 (10:04→22:52)
[2022-08-01] MEDS: RANOLAZINE E.R. 500 MG TABLET (FP) PO SCH ×2 (10:04→22:47)
[2022-08-01] MEDS: CELECOXIB 100 MG CAPSULE PO SCH (10:05)
[2022-08-01] MEDS: FLUTICASONE PROP 0.05% 16 GM NASAL SPRAY NS SCH ×2 (10:10→22:54)
[2022-08-01] MEDS: ALBUTEROL SO4 2.5/IPRATROPIUM 0.5 INH SOL 3 ML VIAL.NEB. NEB PRN ×3 (10:37→20:27)
[2022-08-01] MEDS ORDERED: methylPREDNISolone NA SUCC 40 MG/1 ML VIAL IVPUSH SCH (14:00)
[2022-08-01] MEDS: ATORVASTATIN CA 80 MG TABLET (FP) PO SCH (22:47)
[2022-08-01] MEDS: MELATONIN 5 MG TABLETS PO PRN (22:47)
[2022-08-01] MEDS: DOCUSATE SODIUM 100 MG CAPSULE (FP) PO SCH (22:47)
[2022-08-01] MEDS: MONTELUKAST NA 10 MG TABLET PO SCH (22:47)
[2022-08-02] MEDS: methylPREDNISolone NA SUCC 40 MG/1 ML VIAL IVPUSH SCH ×3 (02:30→17:44)
[2022-08-02] MEDS: SODIUM CHLORIDE NASAL SPRAY 44 ML BOTTLE NS SCH ×3 (06:10→22:40)
[2022-08-02] MEDS: FUROSEMIDE 20 MG TABLET (FP) PO SCH ×2 (06:11→13:36)
[2022-08-02 08:34] LABS: HEMATOCRIT 42.8 % (32.4-45.2); MCH 30.7 pg (25.7-33.7); MCHC 32.8 g/dl (32.0-36.0); MEAN CELL VOLUME 93.7 fl (80-96); MEAN PLT VOLUME 7.8 fl (7.5-11.1); PLATELET COUNT 320 10^3/uL (134-434); RBC 4.56 M/mm3 (3.60-5.2); RDW 14.5 % (11.6-15.6); WHITE BLOOD COUNT 22.7 K/mm3 (4.0-10.0)
[2022-08-02 08:46] LABS: BLOOD UREA NITROGEN 27.2 mg/dL (7-18); CALCIUM 9.1 mg/dL (8.5-10.1)
[2022-08-02 08:53] LABS: CREATININE 0.9 mg/dL (0.55-1.3)
[2022-08-02] MEDS: RANOLAZINE E.R. 500 MG TABLET (FP) PO SCH ×2 (10:05→22:37)
[2022-08-02] MEDS: ASPIRIN 81 MG CHEWABLE TABLETS PO SCH (10:05)
[2022-08-02] MEDS: PANTOPRAZOLE 40 MG TABLET PO SCH (10:05)
[2022-08-02] MEDS: guaiFENesin 600 MG TABLET.ER (FP) PO SCH ×2 (10:05→22:37)
[2022-08-02] MEDS: FLUTICASONE PROP 0.05% 16 GM NASAL SPRAY NS SCH ×2 (10:06→22:40)
[2022-08-02] MEDS: ISOSORBIDE MONONITRATE 30 MG TAB.SR.24H (FP) PO SCH ×2 (10:06→22:38)
[2022-08-02] MEDS: FOLIC ACID 1 MG TABLET (FP) PO SCH (10:06)
[2022-08-02] MEDS: FAMOTIDINE 20 MG TABLET PO SCH (10:06)
[2022-08-02] MEDS: VERAPAMIL HCL 240 MG E.R. TABLET PO SCH ×2 (10:06→22:38)
[2022-08-02] MEDS: CLOPIDOGREL BISULFATE 75 MG TABLET (FP) PO SCH (10:06)
[2022-08-02] MEDS: POTASSIUM CHLORIDE TABS 10 MEQ TABLET.ER (FP) PO SCH ×2 (10:06→22:39)
[2022-08-02] MEDS: TIOTROPIUM BROMIDE 2.5 MCG (SPIRIVA) RESPIMAT INHALER IH SCH (10:08)
[2022-08-02] MEDS: BUDESONIDE/FORMETEROL FUMARATE 160/4.5 mcg INHALER IH SCH ×2 (10:08→22:39)
[2022-08-02] MEDS: CELECOXIB 100 MG CAPSULE PO SCH (10:12)
[2022-08-02 10:16] LABS: ANISOCYTOSIS 0; HELMET CELLS 0; HOWELL-JOLLY BODIES 0; MACROCYTOSIS 0; OVALOCYTE 0; ROULEAU 0; SICKELED CELLS 0; TARGET CELLS 0; TEAR DROP CELLS 0; TOXIC GRANULATION 0
[2022-08-02] MEDS: AZITHROMYCIN 250 MG TABLET PO SCH (14:31)
[2022-08-02] MEDS: ALBUTEROL SO4 2.5/IPRATROPIUM 0.5 INH SOL 3 ML VIAL.NEB. NEB PRN ×2 (14:49→22:01)
[2022-08-02] MEDS: DOCUSATE SODIUM 100 MG CAPSULE (FP) PO SCH (22:37)
[2022-08-02] MEDS: MONTELUKAST NA 10 MG TABLET PO SCH (22:38)
[2022-08-02] MEDS: ATORVASTATIN CA 80 MG TABLET (FP) PO SCH (22:39)
[2022-08-02] MEDS: MELATONIN 5 MG TABLETS PO PRN (22:39)
[2022-08-03] MEDS: methylPREDNISolone NA SUCC 40 MG/1 ML VIAL IVPUSH SCH ×3 (02:39→18:33)
[2022-08-03] MEDS: FUROSEMIDE 20 MG TABLET (FP) PO SCH ×2 (06:32→15:00)
[2022-08-03] MEDS: SODIUM CHLORIDE NASAL SPRAY 44 ML BOTTLE NS SCH ×3 (06:34→22:49)
[2022-08-03 08:35] LABS: HEMATOCRIT 40.3 % (32.4-45.2); HEMOGLOBIN 13.3 GM/dL (10.7-15.3); MCH 30.7 pg (25.7-33.7); MCHC 32.9 g/dl (32.0-36.0); MEAN CELL VOLUME 93.4 fl (80-96); MEAN PLT VOLUME 7.5 fl (7.5-11.1); PLATELET COUNT 272 10^3/uL (134-434); RBC 4.31 M/mm3 (3.60-5.2); RDW 14.5 % (11.6-15.6); WHITE BLOOD COUNT 24.8 K/mm3 (4.0-10.0)
[2022-08-03 08:51] LABS: CALCIUM 8.7 mg/dL (8.5-10.1)
[2022-08-03 08:52] LABS: ALBUMIN 2.9 g/dl (3.4-5.0); BLOOD UREA NITROGEN 22.5 mg/dL (7-18)
[2022-08-03 08:55] LABS: CREATININE 0.8 mg/dL (0.55-1.3)
[2022-08-03 08:57] LABS: BILIRUBIN,TOTAL 1.1 mg/dL (0.2-1); TOT PROT 5.9 g/dl (6.4-8.2)
[2022-08-03 09:36] LABS: ANISOCYTOSIS 1+; MACROCYTOSIS 0
[2022-08-03] MEDS: PANTOPRAZOLE 40 MG TABLET PO SCH (10:03)
[2022-08-03] MEDS: FOLIC ACID 1 MG TABLET (FP) PO SCH (10:03)
[2022-08-03] MEDS: VERAPAMIL HCL 240 MG E.R. TABLET PO SCH ×2 (10:03→22:48)
[2022-08-03] MEDS: ISOSORBIDE MONONITRATE 30 MG TAB.SR.24H (FP) PO SCH ×2 (10:03→22:48)
[2022-08-03] MEDS: POTASSIUM CHLORIDE TABS 10 MEQ TABLET.ER (FP) PO SCH ×2 (10:03→22:49)
[2022-08-03] MEDS: AZITHROMYCIN 250 MG TABLET PO SCH (10:03)
[2022-08-03] MEDS: CLOPIDOGREL BISULFATE 75 MG TABLET (FP) PO SCH (10:03)
[2022-08-03] MEDS: FAMOTIDINE 20 MG TABLET PO SCH (10:03)
[2022-08-03] MEDS: guaiFENesin 600 MG TABLET.ER (FP) PO SCH ×2 (10:03→22:49)
[2022-08-03] MEDS: ASPIRIN 81 MG CHEWABLE TABLETS PO SCH (10:04)
[2022-08-03] MEDS: FLUTICASONE PROP 0.05% 16 GM NASAL SPRAY NS SCH ×2 (10:04→22:50)
[2022-08-03] MEDS: CELECOXIB 100 MG CAPSULE PO SCH (10:04)
[2022-08-03] MEDS: BUDESONIDE/FORMETEROL FUMARATE 160/4.5 mcg INHALER IH SCH ×2 (10:04→22:50)
[2022-08-03] MEDS: TIOTROPIUM BROMIDE 2.5 MCG (SPIRIVA) RESPIMAT INHALER IH SCH (10:04)
[2022-08-03] MEDS: RANOLAZINE E.R. 500 MG TABLET (FP) PO SCH ×2 (10:04→22:48)
[2022-08-03] MEDS: ALBUTEROL SO4 2.5/IPRATROPIUM 0.5 INH SOL 3 ML VIAL.NEB. NEB PRN (15:00)
[2022-08-03] MEDS: MONTELUKAST NA 10 MG TABLET PO SCH (22:48)
[2022-08-03] MEDS: ATORVASTATIN CA 80 MG TABLET (FP) PO SCH (22:48)
[2022-08-03] MEDS: DOCUSATE SODIUM 100 MG CAPSULE (FP) PO SCH (22:49)
[2022-08-03] MEDS: MELATONIN 5 MG TABLETS PO PRN (22:49)
[2022-08-04] MEDS: methylPREDNISolone NA SUCC 40 MG/1 ML VIAL IVPUSH SCH ×3 (02:59→22:07)
[2022-08-04] MEDS: FUROSEMIDE 20 MG TABLET (FP) PO SCH ×2 (05:02→14:25)
[2022-08-04] MEDS: SODIUM CHLORIDE NASAL SPRAY 44 ML BOTTLE NS SCH ×3 (05:03→22:07)
[2022-08-04] MEDS: FAMOTIDINE 20 MG TABLET PO SCH (09:11)
[2022-08-04] MEDS: guaiFENesin 600 MG TABLET.ER (FP) PO SCH ×2 (09:11→22:04)
[2022-08-04] MEDS: POTASSIUM CHLORIDE TABS 10 MEQ TABLET.ER (FP) PO SCH ×2 (09:11→22:03)
[2022-08-04] MEDS: VERAPAMIL HCL 240 MG E.R. TABLET PO SCH ×2 (09:11→22:03)
[2022-08-04] MEDS: RANOLAZINE E.R. 500 MG TABLET (FP) PO SCH ×2 (09:11→22:03)
[2022-08-04] MEDS: FOLIC ACID 1 MG TABLET (FP) PO SCH (09:11)
[2022-08-04] MEDS: ASPIRIN 81 MG CHEWABLE TABLETS PO SCH (09:11)
[2022-08-04] MEDS: PANTOPRAZOLE 40 MG TABLET PO SCH (09:11)
[2022-08-04] MEDS: CELECOXIB 100 MG CAPSULE PO SCH (09:12)
[2022-08-04] MEDS: FLUTICASONE PROP 0.05% 16 GM NASAL SPRAY NS SCH ×2 (09:12→22:05)
[2022-08-04] MEDS: CLOPIDOGREL BISULFATE 75 MG TABLET (FP) PO SCH (09:12)
[2022-08-04] MEDS: AZITHROMYCIN 250 MG TABLET PO SCH (09:12)
[2022-08-04] MEDS: BUDESONIDE/FORMETEROL FUMARATE 160/4.5 mcg INHALER IH SCH ×2 (09:12→22:07)
[2022-08-04] MEDS: ISOSORBIDE MONONITRATE 30 MG TAB.SR.24H (FP) PO SCH ×2 (09:12→22:00)
[2022-08-04] MEDS: TIOTROPIUM BROMIDE 2.5 MCG (SPIRIVA) RESPIMAT INHALER IH SCH (14:25)
[2022-08-04] MEDS: DOCUSATE SODIUM 100 MG CAPSULE (FP) PO SCH (22:00)
[2022-08-04] MEDS: MONTELUKAST NA 10 MG TABLET PO SCH (22:02)
[2022-08-04] MEDS: ATORVASTATIN CA 80 MG TABLET (FP) PO SCH (22:04)
[2022-08-05] MEDS: MELATONIN 5 MG TABLETS PO PRN (00:11)
[2022-08-05] MEDS: FUROSEMIDE 20 MG TABLET (FP) PO SCH ×2 (06:40→15:00)
[2022-08-05] MEDS: SODIUM CHLORIDE NASAL SPRAY 44 ML BOTTLE NS SCH ×3 (06:40→21:33)
[2022-08-05 08:50] LABS: HEMATOCRIT 37.5 % (32.4-45.2); HEMOGLOBIN 12.3 GM/dL (10.7-15.3); MCH 30.9 pg (25.7-33.7); MCHC 32.8 g/dl (32.0-36.0); MEAN CELL VOLUME 94.3 fl (80-96); MEAN PLT VOLUME 7.6 fl (7.5-11.1); PLATELET COUNT 240 10^3/uL (134-434); RBC 3.97 M/mm3 (3.60-5.2); RDW 14.4 % (11.6-15.6)
[2022-08-05 09:20] LABS: ALBUMIN 2.5 g/dl (3.4-5.0); CALCIUM 8.5 mg/dL (8.5-10.1)
[2022-08-05 09:23] LABS: CREATININE 0.7 mg/dL (0.55-1.3)
[2022-08-05 09:25] LABS: BILIRUBIN,TOTAL 0.9 mg/dL (0.2-1); TOT PROT 5.5 g/dl (6.4-8.2)
[2022-08-05] MEDS: PANTOPRAZOLE 40 MG TABLET PO SCH (09:50)
[2022-08-05] MEDS: guaiFENesin 600 MG TABLET.ER (FP) PO SCH ×2 (09:50→21:33)
[2022-08-05] MEDS: CLOPIDOGREL BISULFATE 75 MG TABLET (FP) PO SCH (09:50)
[2022-08-05] MEDS: AZITHROMYCIN 250 MG TABLET PO SCH (09:50)
[2022-08-05] MEDS: FOLIC ACID 1 MG TABLET (FP) PO SCH (09:50)
[2022-08-05] MEDS: ASPIRIN 81 MG CHEWABLE TABLETS PO SCH (09:50)
[2022-08-05] MEDS: RANOLAZINE E.R. 500 MG TABLET (FP) PO SCH ×2 (09:50→21:34)
[2022-08-05] MEDS: ISOSORBIDE MONONITRATE 30 MG TAB.SR.24H (FP) PO SCH ×2 (09:50→21:33)
[2022-08-05] MEDS: VERAPAMIL HCL 240 MG E.R. TABLET PO SCH ×2 (09:51→21:34)
[2022-08-05] MEDS: POTASSIUM CHLORIDE TABS 10 MEQ TABLET.ER (FP) PO SCH ×2 (09:51→21:33)
[2022-08-05] MEDS: TIOTROPIUM BROMIDE 2.5 MCG (SPIRIVA) RESPIMAT INHALER IH SCH (09:51)
[2022-08-05] MEDS: BUDESONIDE/FORMETEROL FUMARATE 160/4.5 mcg INHALER IH SCH ×2 (09:51→21:34)
[2022-08-05] MEDS: FAMOTIDINE 20 MG TABLET PO SCH (09:51)
[2022-08-05] MEDS: methylPREDNISolone NA SUCC 40 MG/1 ML VIAL IVPUSH SCH ×2 (09:51→21:34)
[2022-08-05] MEDS: FLUTICASONE PROP 0.05% 16 GM NASAL SPRAY NS SCH ×2 (09:54→21:35)
[2022-08-05] MEDS: CELECOXIB 100 MG CAPSULE PO SCH (09:57)
[2022-08-05 10:27] LABS: ANISOCYTOSIS 0; HELMET CELLS 0; HOWELL-JOLLY BODIES 0; MACROCYTOSIS 0; OVALOCYTE 0; ROULEAU 0; SICKELED CELLS 0; TARGET CELLS 0; TEAR DROP CELLS 0; TOXIC GRANULATION 0
[2022-08-05] MEDS ORDERED: ALBUTEROL SO4 HFA INHALER IH PRN (12:25)
[2022-08-05] MEDS: ALBUTEROL SO4 2.5/IPRATROPIUM 0.5 INH SOL 3 ML VIAL.NEB. NEB PRN (12:39)
[2022-08-05] MEDS: DOCUSATE SODIUM 100 MG CAPSULE (FP) PO SCH ×2 (21:32→21:45)
[2022-08-05] MEDS: ATORVASTATIN CA 80 MG TABLET (FP) PO SCH (21:33)
[2022-08-05] MEDS: MONTELUKAST NA 10 MG TABLET PO SCH (21:34)
[2022-08-06] MEDS: FUROSEMIDE 20 MG TABLET (FP) PO SCH ×2 (06:23→14:49)
[2022-08-06] MEDS: SODIUM CHLORIDE NASAL SPRAY 44 ML BOTTLE NS SCH ×3 (06:23→21:30)
[2022-08-06] MEDS: ALBUTEROL SO4 2.5/IPRATROPIUM 0.5 INH SOL 3 ML VIAL.NEB. NEB PRN ×2 (08:18→13:45)
[2022-08-06] MEDS: methylPREDNISolone NA SUCC 40 MG/1 ML VIAL IVPUSH SCH ×2 (09:47→21:27)
[2022-08-06] MEDS: FOLIC ACID 1 MG TABLET (FP) PO SCH (09:47)
[2022-08-06] MEDS: ASPIRIN 81 MG CHEWABLE TABLETS PO SCH (09:47)
[2022-08-06] MEDS: PANTOPRAZOLE 40 MG TABLET PO SCH (09:47)
[2022-08-06] MEDS: AZITHROMYCIN 250 MG TABLET PO SCH (09:47)
[2022-08-06] MEDS: guaiFENesin 600 MG TABLET.ER (FP) PO SCH ×2 (09:47→21:27)
[2022-08-06] MEDS: FLUTICASONE PROP 0.05% 16 GM NASAL SPRAY NS SCH ×2 (09:48→21:30)
[2022-08-06] MEDS: TIOTROPIUM BROMIDE 2.5 MCG (SPIRIVA) RESPIMAT INHALER IH SCH (09:48)
[2022-08-06] MEDS: ISOSORBIDE MONONITRATE 30 MG TAB.SR.24H (FP) PO SCH ×2 (09:48→21:27)
[2022-08-06] MEDS: RANOLAZINE E.R. 500 MG TABLET (FP) PO SCH ×2 (09:48→21:27)
[2022-08-06] MEDS: POTASSIUM CHLORIDE TABS 10 MEQ TABLET.ER (FP) PO SCH ×2 (09:48→21:27)
[2022-08-06] MEDS: VERAPAMIL HCL 240 MG E.R. TABLET PO SCH ×2 (09:48→21:27)
[2022-08-06] MEDS: CLOPIDOGREL BISULFATE 75 MG TABLET (FP) PO SCH (09:48)
[2022-08-06] MEDS: CELECOXIB 100 MG CAPSULE PO SCH (09:48)
[2022-08-06] MEDS: FAMOTIDINE 20 MG TABLET PO SCH (09:48)
[2022-08-06] MEDS: BUDESONIDE/FORMETEROL FUMARATE 160/4.5 mcg INHALER IH SCH ×2 (09:49→21:29)
[2022-08-06 15:57] VITALS: RESP 20
[2022-08-06] MEDS: MONTELUKAST NA 10 MG TABLET PO SCH (21:27)
[2022-08-06] MEDS: ATORVASTATIN CA 80 MG TABLET (FP) PO SCH (21:27)
[2022-08-06] MEDS: DOCUSATE SODIUM 100 MG CAPSULE (FP) PO SCH (21:27)
[2022-08-06] MEDS: MELATONIN 5 MG TABLETS PO PRN (21:43)
[2022-08-07] MEDS: SODIUM CHLORIDE NASAL SPRAY 44 ML BOTTLE NS SCH ×3 (05:56→22:46)
[2022-08-07] MEDS: FUROSEMIDE 20 MG TABLET (FP) PO SCH ×2 (05:56→14:18)
[2022-08-07] MEDS: ISOSORBIDE MONONITRATE 30 MG TAB.SR.24H (FP) PO SCH ×2 (10:34→22:45)
[2022-08-07] MEDS: RANOLAZINE E.R. 500 MG TABLET (FP) PO SCH ×2 (10:34→22:46)
[2022-08-07] MEDS: CLOPIDOGREL BISULFATE 75 MG TABLET (FP) PO SCH (10:34)
[2022-08-07] MEDS: guaiFENesin 600 MG TABLET.ER (FP) PO SCH ×2 (10:34→22:46)
[2022-08-07] MEDS: FOLIC ACID 1 MG TABLET (FP) PO SCH (10:34)
[2022-08-07] MEDS: PANTOPRAZOLE 40 MG TABLET PO SCH (10:34)
[2022-08-07] MEDS: FAMOTIDINE 20 MG TABLET PO SCH (10:34)
[2022-08-07] MEDS: methylPREDNISolone NA SUCC 40 MG/1 ML VIAL IVPUSH SCH ×2 (10:34→22:46)
[2022-08-07] MEDS: ASPIRIN 81 MG CHEWABLE TABLETS PO SCH (10:34)
[2022-08-07] MEDS: VERAPAMIL HCL 240 MG E.R. TABLET PO SCH ×2 (10:35→22:45)
[2022-08-07] MEDS: AZITHROMYCIN 250 MG TABLET PO SCH (10:35)
[2022-08-07] MEDS: CELECOXIB 100 MG CAPSULE PO SCH (10:35)
[2022-08-07] MEDS: TIOTROPIUM BROMIDE 2.5 MCG (SPIRIVA) RESPIMAT INHALER IH SCH (10:36)
[2022-08-07] MEDS: FLUTICASONE PROP 0.05% 16 GM NASAL SPRAY NS SCH ×2 (10:36→22:45)
[2022-08-07] MEDS: BUDESONIDE/FORMETEROL FUMARATE 160/4.5 mcg INHALER IH SCH ×2 (10:36→22:46)
[2022-08-07] MEDS: POTASSIUM CHLORIDE TABS 10 MEQ TABLET.ER (FP) PO SCH ×2 (10:36→22:45)
[2022-08-07] MEDS ORDERED: ALPRAZolam 0.25 MG TABLET PO ONE (13:00)
[2022-08-07 20:30] VITALS: BP 128/90; PULSE 80; TEMP 97.6
[2022-08-07] MEDS: DOCUSATE SODIUM 100 MG CAPSULE (FP) PO SCH (22:45)
[2022-08-07] MEDS: ATORVASTATIN CA 80 MG TABLET (FP) PO SCH (22:45)
[2022-08-07] MEDS: MONTELUKAST NA 10 MG TABLET PO SCH (22:46)
== END 2022-08-07 22:30 | disposition home health service (06) | DRG 177 ==
LOC: JER 14:23 → JERBED 16:04 → J4W 07-27 19:09
PROVIDERS: ADMIT Internal Medicine; ATTEND Internal Medicine
PROC: XW033E5 Introduction of Remdesivir Anti-infective into Peripheral Vein, Percutaneous Approach, New Technology Group 5 (ICD-10-PCS; principal; 2022-07-24)
DX: U07.1 COVID-19 (principal); J12.82 Pneumonia due to coronavirus disease 2019; I50.32 Chronic diastolic (congestive) heart failure; J44.1 Chronic obstructive pulmonary disease with (acute) exacerbation; R06.02 Shortness of breath; J44.9 Chronic obstructive pulmonary disease, unspecified; I73.9 Peripheral vascular disease, unspecified; I11.0 Hypertensive heart disease with heart failure; K21.9 Gastro-esophageal reflux disease without esophagitis; E78.00 Pure hypercholesterolemia, unspecified; I25.2 Old myocardial infarction; F41.8 Other specified anxiety disorders; E04.8 Other specified nontoxic goiter; M25.552 Pain in left hip; R09.02 Hypoxemia; R91.1 Solitary pulmonary nodule; G47.00 Insomnia, unspecified; I25.119 Atherosclerotic heart disease of native coronary artery with unspecified angina pectoris; E78.5 Hyperlipidemia, unspecified
CPT/HCPCS: 36415; 71045-TC-FY; 71250-TC; 80053; 82803; 84484; 85025; 85610; 85730; 86140; 93005; 93010; 94640; 94761; 97116-GP; 97162-GP; 99291; C9399; C9803-CS; J1100; J1644; U0003; U0005

== ENCOUNTER 2022-12-02 18:06 | Inpatient (IN) | payer BC ==
[2022-12-02] MEDS ORDERED: morphine CARPU-JECT 4 MG/1 ML DISP.SYRIN IVPUSH ONE (18:49)
[2022-12-02] MEDS ORDERED: SODIUM CHLORIDE 0.9% 1000 ML INFUS.BAG IV ONE (19:24)
[2022-12-02] MEDS ORDERED: morphine SULFATE 4 MG/ML VIAL ONE (19:46)
[2022-12-02 20:09] LABS: BASO % 0.6 % (0-2.0); EOS % 1.2 % (0-4.5); HEMOGLOBIN 12.4 GM/dL (10.7-15.3); LYMPH % 16.8 % (8-40); MCH 29.2 pg (25.7-33.7); MCHC 33.4 g/dl (32.0-36.0); MEAN CELL VOLUME 87.3 fl (80-96); MEAN PLT VOLUME 6.6 fl (7.5-11.1); MONO % 7.8 % (3.8-10.2); NEUT % 73.6 % (42.8-82.8); PLATELET COUNT 295 10^3/uL (134-434); RBC 4.24 M/mm3 (3.60-5.2); RDW 15.1 % (11.6-15.6)
[2022-12-02 20:17] LABS: INR 0.97 (0.83-1.09); PROTHROMBIN TIME (PATIENT) 11.3 SEC (9.7-13.0)
[2022-12-02 20:19] LABS: ACTIVATED PTT 41.1 SECONDS (25.2-36.5)
[2022-12-02 20:27] LABS: POTASSIUM 3.4 mmol/L (3.5-5.1)
[2022-12-02 20:31] LABS: BLOOD UREA NITROGEN 8.8 mg/dL (7-18); CALCIUM 9.1 mg/dL (8.5-10.1)
[2022-12-02 20:32] LABS: ALBUMIN 3.9 g/dl (3.4-5.0)
[2022-12-02 20:35] LABS: CREATININE 0.9 mg/dL (0.55-1.3)
[2022-12-02 20:36] LABS: BILIRUBIN,TOTAL 0.4 mg/dL (0.2-1); TOT PROT 7.8 g/dl (6.4-8.2)
[2022-12-02 21:25] LABS: PH,URINE 5.5 (5.0-8.0); URINE APPEARANCE CLEAR; URINE BILIRUBIN NEGATIVE (NEGATIVE); URINE COLOR YELLOW; URINE GLUCOSE (UA) NEGATIVE (NEGATIVE); URINE KETONE NEGATIVE (NEGATIVE); URINE LEUK ESTERASE NEGATIVE (NEGATIVE); URINE NITRITE NEGATIVE (NEGATIVE); URINE PROTEIN NEGATIVE (NEGATIVE); URINE UROBILINOGEN 0.2 mg/dL (0.2-1.0)
[2022-12-02] MEDS ORDERED: ACETAMINOPHEN 1000 MG/100 ML BAG IVPB ONE (23:35)
[2022-12-02] MEDS ORDERED: ACETAMINOPHEN INJECTION 100 ML IVPB ONE (23:53)
[2022-12-03 01:59] VITALS: BMI 27.6
[2022-12-03] MEDS ORDERED: ALBUTEROL SO4 HFA INHALER IH PRN (07:36)
[2022-12-03] MEDS ORDERED: MECLIZINE HCL 25 MG TABLET (FP) PO PRN (07:36)
[2022-12-03] MEDS ORDERED: NITROGLYCERIN SUBLINGUAL 1/150 0.4 MG TAB SL PRN (07:36)
[2022-12-03] MEDS ORDERED: MAG HYDROX/AL HYDROX/SIMETH 30 ML UNIT-DOSE CUP PO PRN (07:36)
[2022-12-03] MEDS ORDERED: guaiFENesin/D-METHORPHAN HB 10 ML UNIT-DOSE CUPS PO PRN (07:36)
[2022-12-03] MEDS: RANOLAZINE E.R. 500 MG TABLET (FP) PO SCH ×2 (09:50→21:44)
[2022-12-03] MEDS: ISOSORBIDE MONONITRATE 30 MG TAB.SR.24H (FP) PO SCH ×2 (09:50→21:44)
[2022-12-03] MEDS: ASPIRIN 81 MG CHEWABLE TABLETS PO SCH (09:50)
[2022-12-03] MEDS: FOLIC ACID 1 MG TABLET (FP) PO SCH (09:50)
[2022-12-03] MEDS: CLOPIDOGREL BISULFATE 75 MG TABLET (FP) PO SCH (09:50)
[2022-12-03] MEDS: FUROSEMIDE 20 MG TABLET (FP) PO SCH ×2 (09:50→21:44)
[2022-12-03] MEDS: VERAPAMIL HCL 240 MG E.R. TABLET PO SCH ×2 (09:50→21:44)
[2022-12-03] MEDS: PANTOPRAZOLE 40 MG TABLET PO SCH (09:50)
[2022-12-03] MEDS: ALPRAZolam 0.25 MG TABLET PO PRN ×2 (09:50→21:43)
[2022-12-03] MEDS: POTASSIUM CHLORIDE TABS 10 MEQ TABLET.ER (FP) PO SCH ×2 (09:50→21:44)
[2022-12-03] MEDS: BUDESONIDE/FORMETEROL FUMARATE 160/4.5 mcg INHALER IH SCH ×2 (09:51→21:45)
[2022-12-03] MEDS: TIOTROPIUM BROMIDE 2.5 MCG (SPIRIVA) RESPIMAT INHALER IH SCH (09:54)
[2022-12-03] MEDS: AZITHROMYCIN 250 MG TABLET PO SCH (09:54)
[2022-12-03] MEDS ORDERED: FAMOTIDINE 20 MG TABLET PO SCH (10:00)
[2022-12-03] MEDS: POLYETHYLENE GLYCOL (HEALTHYLAX) 3350 17 GM PACKET PO SCH (11:33)
[2022-12-03] MEDS ORDERED: SODIUM CHLORIDE NASAL SPRAY 44 ML BOTTLE NS PRN (14:00)
[2022-12-03] MEDS: ALBUTEROL SO4 0.083% IH SOL 2.5 MG/3 ML VIAL.NEB. NEB PRN (16:31)
[2022-12-03] MEDS: oxyCODONE HCL 5 MG TABLET PO PRN ×2 (16:57→21:43)
[2022-12-03] MEDS: MELATONIN 5 MG TABLETS PO PRN (21:43)
[2022-12-03] MEDS: ACETAMINOPHEN 325 MG TABLET (FP) PO PRN (21:43)
[2022-12-03] MEDS: FLUTICASONE PROP 0.05% 16 GM NASAL SPRAY NS SCH (21:44)
[2022-12-03] MEDS: MONTELUKAST NA 10 MG TABLET PO SCH (21:44)
[2022-12-03] MEDS: ATORVASTATIN CA 80 MG TABLET (FP) PO SCH (21:44)
[2022-12-03] MEDS ORDERED: DOCUSATE SODIUM 100 MG CAPSULE (FP) PO SCH (22:00)
[2022-12-04] MEDS: PANTOPRAZOLE 40 MG TABLET PO SCH (12:19)
[2022-12-04] MEDS: FOLIC ACID 1 MG TABLET (FP) PO SCH (12:19)
[2022-12-04] MEDS: POLYETHYLENE GLYCOL (HEALTHYLAX) 3350 17 GM PACKET PO SCH (12:19)
[2022-12-04] MEDS: FUROSEMIDE 20 MG TABLET (FP) PO SCH ×2 (12:20→23:00)
[2022-12-04] MEDS: POTASSIUM CHLORIDE TABS 10 MEQ TABLET.ER (FP) PO SCH ×2 (12:20→22:40)
[2022-12-04] MEDS: RANOLAZINE E.R. 500 MG TABLET (FP) PO SCH ×2 (12:20→22:41)
[2022-12-04] MEDS: ASPIRIN 81 MG CHEWABLE TABLETS PO SCH (12:20)
[2022-12-04] MEDS: CLOPIDOGREL BISULFATE 75 MG TABLET (FP) PO SCH (12:20)
[2022-12-04] MEDS: ISOSORBIDE MONONITRATE 30 MG TAB.SR.24H (FP) PO SCH ×2 (12:20→22:40)
[2022-12-04] MEDS: FLUTICASONE PROP 0.05% 16 GM NASAL SPRAY NS SCH ×2 (12:21→22:44)
[2022-12-04] MEDS: VERAPAMIL HCL 240 MG E.R. TABLET PO SCH ×2 (12:21→23:00)
[2022-12-04] MEDS: BUDESONIDE/FORMETEROL FUMARATE 160/4.5 mcg INHALER IH SCH ×2 (12:22→22:45)
[2022-12-04] MEDS: TIOTROPIUM BROMIDE 2.5 MCG (SPIRIVA) RESPIMAT INHALER IH SCH (12:22)
[2022-12-04] MEDS: AZITHROMYCIN 250 MG TABLET PO SCH (12:23)
[2022-12-04] MEDS: ATORVASTATIN CA 80 MG TABLET (FP) PO SCH (22:40)
[2022-12-04] MEDS: MONTELUKAST NA 10 MG TABLET PO SCH (22:41)
[2022-12-04] MEDS: MELATONIN 5 MG TABLETS PO PRN (23:03)
[2022-12-05] MEDS: FUROSEMIDE 20 MG TABLET (FP) PO SCH ×2 (10:01→21:04)
[2022-12-05] MEDS: ISOSORBIDE MONONITRATE 30 MG TAB.SR.24H (FP) PO SCH ×2 (10:01→21:03)
[2022-12-05] MEDS: PANTOPRAZOLE 40 MG TABLET PO SCH (10:01)
[2022-12-05] MEDS: CLOPIDOGREL BISULFATE 75 MG TABLET (FP) PO SCH (10:01)
[2022-12-05] MEDS: POTASSIUM CHLORIDE TABS 10 MEQ TABLET.ER (FP) PO SCH ×2 (10:01→21:03)
[2022-12-05] MEDS: FOLIC ACID 1 MG TABLET (FP) PO SCH (10:01)
[2022-12-05] MEDS: AZITHROMYCIN 250 MG TABLET PO SCH (10:01)
[2022-12-05] MEDS: VERAPAMIL HCL 240 MG E.R. TABLET PO SCH ×2 (10:01→21:02)
[2022-12-05] MEDS: ASPIRIN 81 MG CHEWABLE TABLETS PO SCH (10:01)
[2022-12-05] MEDS: POLYETHYLENE GLYCOL (HEALTHYLAX) 3350 17 GM PACKET PO SCH ×2 (10:01→19:00)
[2022-12-05] MEDS: RANOLAZINE E.R. 500 MG TABLET (FP) PO SCH ×2 (10:01→21:03)
[2022-12-05] MEDS: BUDESONIDE/FORMETEROL FUMARATE 160/4.5 mcg INHALER IH SCH ×2 (10:05→21:05)
[2022-12-05] MEDS: FLUTICASONE PROP 0.05% 16 GM NASAL SPRAY NS SCH ×2 (10:05→21:05)
[2022-12-05] MEDS: TIOTROPIUM BROMIDE 2.5 MCG (SPIRIVA) RESPIMAT INHALER IH SCH (10:05)
[2022-12-05] MEDS: traMADol HCL 50 MG TABLET PO PRN (11:51)
[2022-12-05] MEDS ORDERED: MAG HYDROX/AL HYDROX/SIMETH 30 ML UNIT-DOSE CUP PO PRN (18:34)
[2022-12-05] MEDS: DOCUSATE SODIUM 100 MG CAPSULE (FP) PO PRN (19:00)
[2022-12-05] MEDS: ATORVASTATIN CA 80 MG TABLET (FP) PO SCH (21:03)
[2022-12-05] MEDS: MONTELUKAST NA 10 MG TABLET PO SCH (21:03)
[2022-12-05] MEDS: MELATONIN 5 MG TABLETS PO PRN (21:08)
[2022-12-06] MEDS: RANOLAZINE E.R. 500 MG TABLET (FP) PO SCH ×2 (09:07→21:05)
[2022-12-06] MEDS: POTASSIUM CHLORIDE TABS 10 MEQ TABLET.ER (FP) PO SCH ×2 (09:07→21:05)
[2022-12-06] MEDS: PANTOPRAZOLE 40 MG TABLET PO SCH (09:07)
[2022-12-06] MEDS: ASPIRIN 81 MG CHEWABLE TABLETS PO SCH (09:07)
[2022-12-06] MEDS: CLOPIDOGREL BISULFATE 75 MG TABLET (FP) PO SCH (09:07)
[2022-12-06] MEDS: FOLIC ACID 1 MG TABLET (FP) PO SCH (09:07)
[2022-12-06] MEDS: FUROSEMIDE 20 MG TABLET (FP) PO SCH ×2 (09:07→21:05)
[2022-12-06] MEDS: ISOSORBIDE MONONITRATE 30 MG TAB.SR.24H (FP) PO SCH ×2 (09:07→21:05)
[2022-12-06] MEDS: AZITHROMYCIN 250 MG TABLET PO SCH (09:08)
[2022-12-06] MEDS: POLYETHYLENE GLYCOL (HEALTHYLAX) 3350 17 GM PACKET PO SCH ×2 (09:08)
[2022-12-06] MEDS: VERAPAMIL HCL 240 MG E.R. TABLET PO SCH ×2 (09:09→21:05)
[2022-12-06] MEDS: ALBUTEROL SO4 0.083% IH SOL 2.5 MG/3 ML VIAL.NEB. NEB PRN ×2 (09:11→18:28)
[2022-12-06] MEDS: FLUTICASONE PROP 0.05% 16 GM NASAL SPRAY NS SCH ×2 (09:14→21:06)
[2022-12-06] MEDS: BUDESONIDE/FORMETEROL FUMARATE 160/4.5 mcg INHALER IH SCH ×2 (09:14→21:05)
[2022-12-06] MEDS: TIOTROPIUM BROMIDE 2.5 MCG (SPIRIVA) RESPIMAT INHALER IH SCH (09:15)
[2022-12-06] MEDS: traMADol HCL 50 MG TABLET PO PRN (18:16)
[2022-12-06] MEDS: methylPREDNISolone NA SUCC 40 MG/1 ML VIAL IVPUSH SCH (19:05)
[2022-12-06] MEDS: ATORVASTATIN CA 80 MG TABLET (FP) PO SCH (21:04)
[2022-12-06] MEDS: MONTELUKAST NA 10 MG TABLET PO SCH (21:05)
[2022-12-06] MEDS: MELATONIN 5 MG TABLETS PO PRN (21:11)
[2022-12-06] MEDS: DOCUSATE SODIUM 100 MG CAPSULE (FP) PO PRN (21:11)
[2022-12-07 02:08] VITALS: RESP 18
[2022-12-07] MEDS: traMADol HCL 50 MG TABLET PO PRN (08:42)
[2022-12-07] MEDS: FUROSEMIDE 20 MG TABLET (FP) PO SCH ×2 (09:03→21:58)
[2022-12-07] MEDS: ASPIRIN 81 MG CHEWABLE TABLETS PO SCH (09:03)
[2022-12-07] MEDS: POTASSIUM CHLORIDE TABS 10 MEQ TABLET.ER (FP) PO SCH ×2 (09:03→21:58)
[2022-12-07] MEDS: PANTOPRAZOLE 40 MG TABLET PO SCH (09:03)
[2022-12-07] MEDS: FOLIC ACID 1 MG TABLET (FP) PO SCH (09:03)
[2022-12-07] MEDS: DOCUSATE SODIUM 100 MG CAPSULE (FP) PO PRN ×2 (09:03→22:06)
[2022-12-07] MEDS: methylPREDNISolone NA SUCC 40 MG/1 ML VIAL IVPUSH SCH (09:03)
[2022-12-07] MEDS: RANOLAZINE E.R. 500 MG TABLET (FP) PO SCH ×2 (09:03→21:58)
[2022-12-07] MEDS: CLOPIDOGREL BISULFATE 75 MG TABLET (FP) PO SCH (09:04)
[2022-12-07] MEDS: ISOSORBIDE MONONITRATE 30 MG TAB.SR.24H (FP) PO SCH ×2 (09:04→21:58)
[2022-12-07] MEDS: POLYETHYLENE GLYCOL (HEALTHYLAX) 3350 17 GM PACKET PO SCH ×2 (09:04)
[2022-12-07] MEDS: AZITHROMYCIN 250 MG TABLET PO SCH (09:08)
[2022-12-07] MEDS: VERAPAMIL HCL 240 MG E.R. TABLET PO SCH ×2 (09:09→21:57)
[2022-12-07] MEDS: BUDESONIDE/FORMETEROL FUMARATE 160/4.5 mcg INHALER IH SCH ×2 (09:12→21:58)
[2022-12-07] MEDS: FLUTICASONE PROP 0.05% 16 GM NASAL SPRAY NS SCH ×2 (09:13→21:58)
[2022-12-07] MEDS: TIOTROPIUM BROMIDE 2.5 MCG (SPIRIVA) RESPIMAT INHALER IH SCH (09:13)
[2022-12-07] MEDS: ALPRAZolam 0.25 MG TABLET PO PRN (12:30)
[2022-12-07] MEDS: ALBUTEROL SO4 0.083% IH SOL 2.5 MG/3 ML VIAL.NEB. NEB PRN (18:54)
[2022-12-07] MEDS: ATORVASTATIN CA 80 MG TABLET (FP) PO SCH (21:58)
[2022-12-07] MEDS: MONTELUKAST NA 10 MG TABLET PO SCH (21:58)
[2022-12-07] MEDS: MELATONIN 5 MG TABLETS PO PRN (22:05)
[2022-12-08] MEDS: ALBUTEROL SO4 0.083% IH SOL 2.5 MG/3 ML VIAL.NEB. NEB PRN (07:30)
[2022-12-08] MEDS: RANOLAZINE E.R. 500 MG TABLET (FP) PO SCH ×2 (09:11→21:41)
[2022-12-08] MEDS: ASPIRIN 81 MG CHEWABLE TABLETS PO SCH (09:12)
[2022-12-08] MEDS: PANTOPRAZOLE 40 MG TABLET PO SCH (09:12)
[2022-12-08] MEDS: POTASSIUM CHLORIDE TABS 10 MEQ TABLET.ER (FP) PO SCH ×2 (09:12→21:41)
[2022-12-08] MEDS: CLOPIDOGREL BISULFATE 75 MG TABLET (FP) PO SCH (09:12)
[2022-12-08] MEDS: FUROSEMIDE 20 MG TABLET (FP) PO SCH ×2 (09:12→21:41)
[2022-12-08] MEDS: ISOSORBIDE MONONITRATE 30 MG TAB.SR.24H (FP) PO SCH ×2 (09:12→21:41)
[2022-12-08] MEDS: FOLIC ACID 1 MG TABLET (FP) PO SCH (09:13)
[2022-12-08] MEDS: VERAPAMIL HCL 240 MG E.R. TABLET PO SCH ×2 (09:13→21:45)
[2022-12-08] MEDS: POLYETHYLENE GLYCOL (HEALTHYLAX) 3350 17 GM PACKET PO SCH ×2 (09:13→09:14)
[2022-12-08] MEDS: AZITHROMYCIN 250 MG TABLET PO SCH (09:13)
[2022-12-08] MEDS: FLUTICASONE PROP 0.05% 16 GM NASAL SPRAY NS SCH ×2 (09:15→21:42)
[2022-12-08] MEDS: BUDESONIDE/FORMETEROL FUMARATE 160/4.5 mcg INHALER IH SCH ×2 (09:15→21:42)
[2022-12-08] MEDS: TIOTROPIUM BROMIDE 2.5 MCG (SPIRIVA) RESPIMAT INHALER IH SCH (09:15)
[2022-12-08] MEDS ORDERED: predniSONE 20 MG TABLET (UD) PO SCH (10:00)
[2022-12-08 10:01] LABS: BASO % 0.1 % (0-2.0); EOS % 0.1 % (0-4.5); HEMATOCRIT 29.2 % (32.4-45.2); HEMOGLOBIN 9.8 GM/dL (10.7-15.3); LYMPH % 13.1 % (8-40); MCH 29.3 pg (25.7-33.7); MCHC 33.7 g/dl (32.0-36.0); MEAN CELL VOLUME 87.1 fl (80-96); MEAN PLT VOLUME 6.9 fl (7.5-11.1); MONO % 5.6 % (3.8-10.2); NEUT % 81.1 % (42.8-82.8); PLATELET COUNT 295 10^3/uL (134-434); RBC 3.35 M/mm3 (3.60-5.2); RDW 14.6 % (11.6-15.6); WHITE BLOOD COUNT 7.3 K/mm3 (4.0-10.0)
[2022-12-08 10:17] LABS: CALCIUM 8.7 mg/dL (8.5-10.1)
[2022-12-08 10:21] LABS: CREATININE 0.9 mg/dL (0.55-1.3)
[2022-12-08 10:22] LABS: BILIRUBIN,TOTAL 0.3 mg/dL (0.2-1); TOT PROT 6.4 g/dl (6.4-8.2)
[2022-12-08 10:32] LABS: ALBUMIN 2.9 g/dl (3.4-5.0)
[2022-12-08] MEDS: ALBUTEROL SO4 0.083% IH SOL 2.5 MG/3 ML VIAL.NEB. NEB SCH ×4 (12:18→20:10)
[2022-12-08] MEDS: methylPREDNISolone NA SUCC 40 MG/1 ML VIAL IVPUSH SCH (18:34)
[2022-12-08] MEDS: ALPRAZolam 0.25 MG TABLET PO PRN (21:40)
[2022-12-08] MEDS: ATORVASTATIN CA 80 MG TABLET (FP) PO SCH (21:41)
[2022-12-08] MEDS: MONTELUKAST NA 10 MG TABLET PO SCH (21:41)
[2022-12-08] MEDS: MELATONIN 5 MG TABLETS PO PRN (21:41)
[2022-12-09] MEDS: methylPREDNISolone NA SUCC 40 MG/1 ML VIAL IVPUSH SCH ×3 (01:34→18:07)
[2022-12-09] MEDS: ACETAMINOPHEN 325 MG TABLET (FP) PO PRN ×2 (03:54→14:02)
[2022-12-09] MEDS: ALBUTEROL SO4 0.083% IH SOL 2.5 MG/3 ML VIAL.NEB. NEB SCH ×4 (07:45→20:54)
[2022-12-09] MEDS: FUROSEMIDE 20 MG TABLET (FP) PO SCH ×2 (09:01→21:42)
[2022-12-09] MEDS: RANOLAZINE E.R. 500 MG TABLET (FP) PO SCH ×2 (09:01→21:41)
[2022-12-09] MEDS: POTASSIUM CHLORIDE TABS 10 MEQ TABLET.ER (FP) PO SCH ×2 (09:01→21:41)
[2022-12-09] MEDS: POLYETHYLENE GLYCOL (HEALTHYLAX) 3350 17 GM PACKET PO SCH (09:01)
[2022-12-09] MEDS: PANTOPRAZOLE 40 MG TABLET PO SCH (09:01)
[2022-12-09] MEDS: FOLIC ACID 1 MG TABLET (FP) PO SCH (09:01)
[2022-12-09] MEDS: CLOPIDOGREL BISULFATE 75 MG TABLET (FP) PO SCH (09:01)
[2022-12-09] MEDS: ISOSORBIDE MONONITRATE 30 MG TAB.SR.24H (FP) PO SCH ×2 (09:01→21:41)
[2022-12-09] MEDS: ASPIRIN 81 MG CHEWABLE TABLETS PO SCH (09:01)
[2022-12-09] MEDS: VERAPAMIL HCL 240 MG E.R. TABLET PO SCH ×2 (09:02→21:42)
[2022-12-09] MEDS: AZITHROMYCIN 250 MG TABLET PO SCH (09:02)
[2022-12-09] MEDS: BUDESONIDE/FORMETEROL FUMARATE 160/4.5 mcg INHALER IH SCH ×2 (09:08→21:42)
[2022-12-09] MEDS: TIOTROPIUM BROMIDE 2.5 MCG (SPIRIVA) RESPIMAT INHALER IH SCH (09:09)
[2022-12-09] MEDS: FLUTICASONE PROP 0.05% 16 GM NASAL SPRAY NS SCH ×2 (09:09→21:42)
[2022-12-09] MEDS: ALPRAZolam 0.25 MG TABLET PO PRN (21:42)
[2022-12-09] MEDS: ATORVASTATIN CA 80 MG TABLET (FP) PO SCH (21:42)
[2022-12-09] MEDS: MONTELUKAST NA 10 MG TABLET PO SCH (21:42)
[2022-12-09] MEDS: MELATONIN 5 MG TABLETS PO PRN (21:42)
[2022-12-10] MEDS: methylPREDNISolone NA SUCC 40 MG/1 ML VIAL IVPUSH SCH ×2 (01:14→10:45)
[2022-12-10] MEDS: ALBUTEROL SO4 0.083% IH SOL 2.5 MG/3 ML VIAL.NEB. NEB SCH ×4 (08:15→15:25)
[2022-12-10 08:53] LABS: HEMATOCRIT 33.3 % (32.4-45.2); HEMOGLOBIN 11.3 GM/dL (10.7-15.3); MCH 29.3 pg (25.7-33.7); MCHC 33.9 g/dl (32.0-36.0); MEAN CELL VOLUME 86.3 fl (80-96); PLATELET COUNT 411 10^3/uL (134-434); RBC 3.86 M/mm3 (3.60-5.2); RDW 14.8 % (11.6-15.6); WHITE BLOOD COUNT 10.1 K/mm3 (4.0-10.0)
[2022-12-10 09:15] LABS: POTASSIUM 4.5 mmol/L (3.5-5.1)
[2022-12-10 09:19] LABS: BLOOD UREA NITROGEN 19.9 mg/dL (7-18); CALCIUM 9.1 mg/dL (8.5-10.1)
[2022-12-10 09:23] LABS: CREATININE 0.8 mg/dL (0.55-1.3)
[2022-12-10 10:27] LABS: ANISOCYTOSIS 2+; MACROCYTOSIS 2+
[2022-12-10] MEDS: POTASSIUM CHLORIDE TABS 10 MEQ TABLET.ER (FP) PO SCH (10:45)
[2022-12-10] MEDS: FUROSEMIDE 20 MG TABLET (FP) PO SCH (10:45)
[2022-12-10] MEDS: VERAPAMIL HCL 240 MG E.R. TABLET PO SCH (10:45)
[2022-12-10] MEDS: ISOSORBIDE MONONITRATE 30 MG TAB.SR.24H (FP) PO SCH (10:45)
[2022-12-10] MEDS: BUDESONIDE/FORMETEROL FUMARATE 160/4.5 mcg INHALER IH SCH (10:46)
[2022-12-10] MEDS: CLOPIDOGREL BISULFATE 75 MG TABLET (FP) PO SCH (10:46)
[2022-12-10] MEDS: RANOLAZINE E.R. 500 MG TABLET (FP) PO SCH (10:46)
[2022-12-10] MEDS: AZITHROMYCIN 250 MG TABLET PO SCH (10:46)
[2022-12-10] MEDS: FOLIC ACID 1 MG TABLET (FP) PO SCH (10:46)
[2022-12-10] MEDS: ASPIRIN 81 MG CHEWABLE TABLETS PO SCH (10:46)
[2022-12-10] MEDS: PANTOPRAZOLE 40 MG TABLET PO SCH (10:46)
[2022-12-10] MEDS: FLUTICASONE PROP 0.05% 16 GM NASAL SPRAY NS SCH (10:47)
[2022-12-10] MEDS: TIOTROPIUM BROMIDE 2.5 MCG (SPIRIVA) RESPIMAT INHALER IH SCH (10:47)
[2022-12-10] MEDS: POLYETHYLENE GLYCOL (HEALTHYLAX) 3350 17 GM PACKET PO SCH (10:51)
[2022-12-10] MEDS: ACETAMINOPHEN 325 MG TABLET (FP) PO PRN (13:53)
[2022-12-10 14:05] VITALS: BP 129/53; PULSE 77; TEMP 98.9
[2022-12-11] MEDS ORDERED: methylPREDNISolone NA SUCC 40 MG/1 ML VIAL IVPUSH SCH (10:00)
[2022-12-11] MEDS ORDERED: predniSONE 20 MG TABLET (UD) PO SCH (10:00)
== END 2022-12-10 18:26 | disposition home or self-care (01) | DRG 394 ==
LOC: JER 18:06 → JERBED 23:43 → J6S 12-03 01:31
PROVIDERS: ADMIT Internal Medicine; ATTEND Internal Medicine
DX: K45.8 Other specified abdominal hernia without obstruction or gangrene (principal); I50.22 Chronic systolic (congestive) heart failure; J96.11 Chronic respiratory failure with hypoxia; J44.9 Chronic obstructive pulmonary disease, unspecified; E78.5 Hyperlipidemia, unspecified; G62.9 Polyneuropathy, unspecified; I25.10 Atherosclerotic heart disease of native coronary artery without angina pectoris; I11.0 Hypertensive heart disease with heart failure; I73.9 Peripheral vascular disease, unspecified; K21.9 Gastro-esophageal reflux disease without esophagitis; K57.90 Diverticulosis of intestine, part unspecified, without perforation or abscess without bleeding; F41.8 Other specified anxiety disorders; E04.8 Other specified nontoxic goiter; Z99.81 Dependence on supplemental oxygen; R91.8 Other nonspecific abnormal finding of lung field; I73.89 Other specified peripheral vascular diseases; I27.20 Pulmonary hypertension, unspecified
CPT/HCPCS: 36415; 71045-TC-FY; 74177-TC; 80048; 80053; 81003; 83605; 83690; 84443; 84484; 85025; 85610; 85730; 86850; 86900; 86901; 87086; 93005; 93010; 93306-TC; 94640; 94761; 99285-25; C9803-CS; Q9967; U0003; U0005

== ENCOUNTER 2023-02-28 17:47 | Inpatient (IN) | payer BC ==
[2023-02-28 17:58] VITALS: BMI 26.6
[2023-02-28] MEDS ORDERED: methylPREDNISolone NA SUCC 125 MG/2 ML VIAL IVPUSH ONE (19:19)
[2023-02-28] MEDS ORDERED: ALBUTEROL SO4 2.5/IPRATROPIUM 0.5 INH SOL 3 ML VIAL.NEB. NEB ONE ×4 (19:27→22:01)
[2023-02-28] MEDS ORDERED: CEFTRIAXONE 1 GM in DEXTROSE 5%-WATER - 100 ML IVPB ONE (19:29)
[2023-02-28] MEDS: ALBUTEROL SO4 2.5/IPRATROPIUM 0.5 INH SOL 3 ML VIAL.NEB. NEB SCH ×3 (19:33→19:59)
[2023-02-28] MEDS ORDERED: methylPREDNISolone NA SUCC 125 MG/2 ML VIAL ONE (19:53)
[2023-02-28] MEDS ORDERED: CEFTRIAXONE 1 GM/50 ML BAG ONE (20:36)
[2023-02-28 20:42] LABS: BASO % 0.3 % (0-2.0); EOS % 0.8 % (0-4.5); HEMATOCRIT 29.4 % (32.4-45.2); HEMOGLOBIN 9.8 GM/dL (10.7-15.3); LYMPH % 10.9 % (8-40); MCH 28.6 pg (25.7-33.7); MCHC 33.3 g/dl (32.0-36.0); MEAN CELL VOLUME 85.9 fl (80-96); MEAN PLT VOLUME 5.9 fl (7.5-11.1); MONO % 7.3 % (3.8-10.2); NEUT % 80.7 % (42.8-82.8); PLATELET COUNT 285 10^3/uL (134-434); RBC 3.43 M/mm3 (3.60-5.2); RDW 16.5 % (11.6-15.6); VENOUS BASE EXCESS 2.6 mmol/L (-2-2); VENOUS O2 SATURATION 43.2 % (70-80); VENOUS PCO2 51.7 mmHg (38-52); VENOUS PH 7.363 (7.310-7.410); WHITE BLOOD COUNT 9.3 K/mm3 (4.0-10.0)
[2023-02-28 20:51] LABS: INR 1.22 (0.83-1.09); PROTHROMBIN TIME (PATIENT) 14.1 SEC (9.7-13.0)
[2023-02-28 20:54] LABS: ACTIVATED PTT 35.9 SECONDS (25.2-36.5)
[2023-02-28 21:01] LABS: CALCIUM 8.4 mg/dL (8.5-10.1)
[2023-02-28 21:02] LABS: ALBUMIN 2.8 g/dl (3.4-5.0); BLOOD UREA NITROGEN 7.8 mg/dL (7-18); MAGNESIUM 2.1 mg/dL (1.8-2.4)
[2023-02-28 21:05] LABS: BILIRUBIN,TOTAL 0.4 mg/dL (0.2-1); CREATININE 0.8 mg/dL (0.55-1.3); TOT PROT 6.6 g/dl (6.4-8.2)
[2023-02-28 21:09] LABS: N-TERMINAL BNP 392.1 pg/ml (5-125)
[2023-02-28] MEDS ORDERED: ALPRAZolam 0.25 MG TABLET PO PRN (23:50)
[2023-02-28] MEDS ORDERED: MAG HYDROX/AL HYDROX/SIMETH 30 ML UNIT-DOSE CUP PO PRN (23:50)
[2023-02-28] MEDS ORDERED: NITROGLYCERIN SUBLINGUAL 1/150 0.4 MG TAB SL PRN (23:50)
[2023-02-28] MEDS ORDERED: DOCUSATE SODIUM 100 MG CAPSULE (FP) PO PRN (23:50)
[2023-02-28] MEDS ORDERED: MECLIZINE HCL 25 MG TABLET (FP) PO PRN (23:50)
[2023-03-01] MEDS ORDERED: MELATONIN 5 MG TABLETS ONE (00:33)
[2023-03-01] MEDS: MELATONIN 5 MG TABLETS PO PRN ×2 (00:37→21:06)
[2023-03-01] MEDS ORDERED: ISOSORBIDE MONONITRATE 60 MG TAB.SR.24H (FP) PO ONE (00:46)
[2023-03-01] MEDS ORDERED: ISOSORBIDE MONONITRATE 30 MG TAB.SR.24H (FP) PO ONE (00:47)
[2023-03-01] MEDS ORDERED: VERAPAMIL HCL 40 MG TABLET PO ONE (00:50)
[2023-03-01] MEDS: methylPREDNISolone NA SUCC 40 MG/1 ML VIAL IVPUSH SCH ×4 (02:02→21:05)
[2023-03-01] MEDS: FUROSEMIDE 20 MG TABLET (FP) PO SCH ×2 (05:16→13:13)
[2023-03-01] MEDS: ALBUTEROL SO4 0.083% IH SOL 2.5 MG/3 ML VIAL.NEB. NEB PRN (07:59)
[2023-03-01] MEDS: CEFTRIAXONE 1 GM in DEXTROSE 5%-WATER - 50 ML IVPB SCH (10:32)
[2023-03-01] MEDS: POLYETHYLENE GLYCOL (HEALTHYLAX) 3350 17 GM PACKET PO SCH (10:32)
[2023-03-01] MEDS: ASPIRIN 81 MG CHEWABLE TABLETS PO SCH (10:33)
[2023-03-01] MEDS: FOLIC ACID 1 MG TABLET (FP) PO SCH (10:33)
[2023-03-01] MEDS: ISOSORBIDE MONONITRATE 30 MG TAB.SR.24H (FP) PO SCH ×2 (10:33→21:06)
[2023-03-01] MEDS: RANOLAZINE E.R. 500 MG TABLET (FP) PO SCH ×2 (10:33→21:06)
[2023-03-01] MEDS: POTASSIUM CHLORIDE TABS 10 MEQ TABLET.ER (FP) PO SCH ×2 (10:33→21:06)
[2023-03-01] MEDS: CLOPIDOGREL BISULFATE 75 MG TABLET (FP) PO SCH (10:33)
[2023-03-01] MEDS: PANTOPRAZOLE 40 MG TABLET PO SCH (10:33)
[2023-03-01 10:34] LABS: HEMATOCRIT 28.1 % (32.4-45.2); HEMOGLOBIN 9.3 GM/dL (10.7-15.3); MCH 28.1 pg (25.7-33.7); MCHC 33.1 g/dl (32.0-36.0); MEAN CELL VOLUME 85.1 fl (80-96); MEAN PLT VOLUME 6.2 fl (7.5-11.1); PLATELET COUNT 287 10^3/uL (134-434); RBC 3.31 M/mm3 (3.60-5.2); RDW 16.1 % (11.6-15.6); WHITE BLOOD COUNT 5.5 K/mm3 (4.0-10.0)
[2023-03-01] MEDS: BUDESONIDE/FORMETEROL FUMARATE 160/4.5 mcg INHALER IH SCH ×2 (10:34→21:05)
[2023-03-01] MEDS: TIOTROPIUM BROMIDE 2.5 MCG (SPIRIVA) RESPIMAT INHALER IH SCH (10:34)
[2023-03-01] MEDS: AZITHROMYCIN IVPB 500 MG/250 ML BAG IVPB SCH (10:35)
[2023-03-01 10:47] LABS: POTASSIUM 3.5 mmol/L (3.5-5.1)
[2023-03-01 10:50] LABS: ALBUMIN 2.6 g/dl (3.4-5.0); BLOOD UREA NITROGEN 8.6 mg/dL (7-18); CALCIUM 9.1 mg/dL (8.5-10.1)
[2023-03-01 10:54] LABS: CREATININE 0.7 mg/dL (0.55-1.3)
[2023-03-01 10:55] LABS: BILIRUBIN,TOTAL 0.3 mg/dL (0.2-1); TOT PROT 6.3 g/dl (6.4-8.2)
[2023-03-01] MEDS: FLUTICASONE PROP 0.05% 16 GM NASAL SPRAY NS SCH ×2 (10:55→21:06)
[2023-03-01 10:57] LABS: ANISOCYTOSIS 0; HELMET CELLS 0; HOWELL-JOLLY BODIES 0; MACROCYTOSIS 0; OVALOCYTE 0; ROULEAU 0; SICKELED CELLS 0; TARGET CELLS 0; TEAR DROP CELLS 0; TOXIC GRANULATION 0
[2023-03-01] MEDS: ALBUTEROL SO4 0.083% IH SOL 2.5 MG/3 ML VIAL.NEB. NEB SCH ×3 (11:31→21:20)
[2023-03-01] MEDS: VERAPAMIL HCL 240 MG E.R. TABLET PO SCH ×2 (13:04→21:05)
[2023-03-01] MEDS: SODIUM CHLORIDE NASAL SPRAY 44 ML BOTTLE NS SCH ×2 (13:07→21:05)
[2023-03-01] MEDS: GABAPENTIN 300 MG CAPSULE PO SCH (21:06)
[2023-03-01] MEDS: ATORVASTATIN CA 80 MG TABLET (FP) PO SCH (21:06)
[2023-03-01] MEDS: MONTELUKAST NA 10 MG TABLET PO SCH (21:06)
[2023-03-02] MEDS: SODIUM CHLORIDE NASAL SPRAY 44 ML BOTTLE NS SCH ×4 (00:57→23:31)
[2023-03-02] MEDS: methylPREDNISolone NA SUCC 40 MG/1 ML VIAL IVPUSH SCH ×4 (02:58→20:58)
[2023-03-02] MEDS: FUROSEMIDE 20 MG TABLET (FP) PO SCH ×2 (06:04→13:27)
[2023-03-02] MEDS: ALBUTEROL SO4 0.083% IH SOL 2.5 MG/3 ML VIAL.NEB. NEB SCH ×4 (08:39→20:30)
[2023-03-02] MEDS: RANOLAZINE E.R. 500 MG TABLET (FP) PO SCH ×2 (10:13→21:55)
[2023-03-02] MEDS: CLOPIDOGREL BISULFATE 75 MG TABLET (FP) PO SCH (10:13)
[2023-03-02] MEDS: CEFTRIAXONE 1 GM in DEXTROSE 5%-WATER - 50 ML IVPB SCH (10:13)
[2023-03-02] MEDS: POTASSIUM CHLORIDE TABS 10 MEQ TABLET.ER (FP) PO SCH ×2 (10:15→21:55)
[2023-03-02] MEDS: ASPIRIN 81 MG CHEWABLE TABLETS PO SCH (10:15)
[2023-03-02] MEDS: PANTOPRAZOLE 40 MG TABLET PO SCH (10:15)
[2023-03-02] MEDS: FOLIC ACID 1 MG TABLET (FP) PO SCH (10:15)
[2023-03-02] MEDS: ISOSORBIDE MONONITRATE 30 MG TAB.SR.24H (FP) PO SCH ×2 (10:15→21:54)
[2023-03-02] MEDS: AZITHROMYCIN IVPB 500 MG/250 ML BAG IVPB SCH (10:15)
[2023-03-02] MEDS: FLUTICASONE PROP 0.05% 16 GM NASAL SPRAY NS SCH ×2 (10:16→23:31)
[2023-03-02] MEDS: TIOTROPIUM BROMIDE 2.5 MCG (SPIRIVA) RESPIMAT INHALER IH SCH (10:16)
[2023-03-02] MEDS: BUDESONIDE/FORMETEROL FUMARATE 160/4.5 mcg INHALER IH SCH ×2 (10:16→21:55)
[2023-03-02] MEDS: VERAPAMIL HCL 240 MG E.R. TABLET PO SCH ×2 (10:19→21:54)
[2023-03-02] MEDS: POLYETHYLENE GLYCOL (HEALTHYLAX) 3350 17 GM PACKET PO SCH (11:16)
[2023-03-02] MEDS: MONTELUKAST NA 10 MG TABLET PO SCH (21:55)
[2023-03-02] MEDS: MELATONIN 5 MG TABLETS PO PRN (21:55)
[2023-03-02] MEDS: GABAPENTIN 300 MG CAPSULE PO SCH (21:55)
[2023-03-02] MEDS: ATORVASTATIN CA 80 MG TABLET (FP) PO SCH (21:55)
[2023-03-02] MEDS ORDERED: methylPREDNISolone NA SUCC 40 MG/1 ML VIAL IVPUSH ONE (22:45)
[2023-03-03] MEDS: methylPREDNISolone NA SUCC 40 MG/1 ML VIAL IVPUSH SCH ×4 (02:50→21:28)
[2023-03-03] MEDS: SODIUM CHLORIDE NASAL SPRAY 44 ML BOTTLE NS SCH ×3 (06:31→21:51)
[2023-03-03] MEDS: FUROSEMIDE 20 MG TABLET (FP) PO SCH ×2 (06:31→13:44)
[2023-03-03] MEDS: ALBUTEROL SO4 0.083% IH SOL 2.5 MG/3 ML VIAL.NEB. NEB SCH ×4 (07:43→20:31)
[2023-03-03] MEDS: ASPIRIN 81 MG CHEWABLE TABLETS PO SCH (09:32)
[2023-03-03] MEDS: RANOLAZINE E.R. 500 MG TABLET (FP) PO SCH ×2 (09:32→21:29)
[2023-03-03] MEDS: POTASSIUM CHLORIDE TABS 10 MEQ TABLET.ER (FP) PO SCH ×2 (09:32→21:29)
[2023-03-03] MEDS: ISOSORBIDE MONONITRATE 30 MG TAB.SR.24H (FP) PO SCH ×2 (09:33→21:29)
[2023-03-03] MEDS: VERAPAMIL HCL 240 MG E.R. TABLET PO SCH ×3 (09:33→22:39)
[2023-03-03] MEDS: CLOPIDOGREL BISULFATE 75 MG TABLET (FP) PO SCH (09:33)
[2023-03-03] MEDS: PANTOPRAZOLE 40 MG TABLET PO SCH (09:33)
[2023-03-03] MEDS: FOLIC ACID 1 MG TABLET (FP) PO SCH (09:33)
[2023-03-03] MEDS: CEFTRIAXONE 1 GM in DEXTROSE 5%-WATER - 50 ML IVPB SCH (09:34)
[2023-03-03] MEDS: POLYETHYLENE GLYCOL (HEALTHYLAX) 3350 17 GM PACKET PO SCH (09:34)
[2023-03-03] MEDS: AZITHROMYCIN IVPB 500 MG/250 ML BAG IVPB SCH (10:28)
[2023-03-03] MEDS: BUDESONIDE/FORMETEROL FUMARATE 160/4.5 mcg INHALER IH SCH ×2 (10:33→21:51)
[2023-03-03] MEDS: FLUTICASONE PROP 0.05% 16 GM NASAL SPRAY NS SCH ×2 (10:33→21:51)
[2023-03-03] MEDS: TIOTROPIUM BROMIDE 2.5 MCG (SPIRIVA) RESPIMAT INHALER IH SCH (10:33)
[2023-03-03 11:03] LABS: HEMATOCRIT 27.2 % (32.4-45.2); HEMOGLOBIN 8.8 GM/dL (10.7-15.3); MCH 27.8 pg (25.7-33.7); MCHC 32.2 g/dl (32.0-36.0); MEAN CELL VOLUME 86.1 fl (80-96); MEAN PLT VOLUME 6.1 fl (7.5-11.1); PLATELET COUNT 332 10^3/uL (134-434); RBC 3.16 M/mm3 (3.60-5.2); RDW 16.7 % (11.6-15.6)
[2023-03-03 11:27] LABS: POTASSIUM 4.4 mmol/L (3.5-5.1)
[2023-03-03 11:28] LABS: ALBUMIN 2.5 g/dl (3.4-5.0); BLOOD UREA NITROGEN 19.9 mg/dL (7-18); CALCIUM 9.1 mg/dL (8.5-10.1)
[2023-03-03 11:31] LABS: CREATININE 0.8 mg/dL (0.55-1.3)
[2023-03-03 11:33] LABS: BILIRUBIN,TOTAL 0.2 mg/dL (0.2-1)
[2023-03-03 12:02] LABS: ANISOCYTOSIS 0; HELMET CELLS 0; HOWELL-JOLLY BODIES 0; MACROCYTOSIS 0; OVALOCYTE 0; ROULEAU 0; SICKELED CELLS 0; TARGET CELLS 0; TEAR DROP CELLS 0; TOXIC GRANULATION 0
[2023-03-03] MEDS: FERROUS SO4 325 MG TABLET (FP) PO SCH (13:44)
[2023-03-03] MEDS: MULTIVITAMINS (DAILY MVI) TABLET (FP) PO SCH (13:44)
[2023-03-03] MEDS: MONTELUKAST NA 10 MG TABLET PO SCH (21:29)
[2023-03-03] MEDS: GABAPENTIN 300 MG CAPSULE PO SCH (21:29)
[2023-03-03] MEDS: ATORVASTATIN CA 80 MG TABLET (FP) PO SCH (21:29)
[2023-03-03] MEDS: guaiFENesin/D-METHORPHAN HB 10 ML UNIT-DOSE CUPS PO PRN (21:49)
[2023-03-03] MEDS: MELATONIN 5 MG TABLETS PO PRN (21:49)
[2023-03-04] MEDS: methylPREDNISolone NA SUCC 40 MG/1 ML VIAL IVPUSH SCH ×4 (02:07→22:03)
[2023-03-04] MEDS: FUROSEMIDE 20 MG TABLET (FP) PO SCH (06:23)
[2023-03-04] MEDS: SODIUM CHLORIDE NASAL SPRAY 44 ML BOTTLE NS SCH ×3 (06:23→22:04)
[2023-03-04] MEDS: guaiFENesin/D-METHORPHAN HB 10 ML UNIT-DOSE CUPS PO PRN (06:30)
[2023-03-04] MEDS: ALBUTEROL SO4 0.083% IH SOL 2.5 MG/3 ML VIAL.NEB. NEB SCH ×4 (07:58→20:06)
[2023-03-04] MEDS: AZITHROMYCIN IVPB 500 MG/250 ML BAG IVPB SCH (10:56)
[2023-03-04] MEDS: CEFTRIAXONE 1 GM in DEXTROSE 5%-WATER - 50 ML IVPB SCH (10:56)
[2023-03-04] MEDS: PANTOPRAZOLE 40 MG TABLET PO SCH (10:57)
[2023-03-04] MEDS: CLOPIDOGREL BISULFATE 75 MG TABLET (FP) PO SCH (10:57)
[2023-03-04] MEDS: MULTIVITAMINS (DAILY MVI) TABLET (FP) PO SCH (10:57)
[2023-03-04] MEDS: ISOSORBIDE MONONITRATE 30 MG TAB.SR.24H (FP) PO SCH ×2 (10:58→22:03)
[2023-03-04] MEDS: POLYETHYLENE GLYCOL (HEALTHYLAX) 3350 17 GM PACKET PO SCH (10:58)
[2023-03-04] MEDS: RANOLAZINE E.R. 500 MG TABLET (FP) PO SCH ×2 (10:58→22:04)
[2023-03-04] MEDS: FOLIC ACID 1 MG TABLET (FP) PO SCH (10:58)
[2023-03-04] MEDS: ASPIRIN 81 MG CHEWABLE TABLETS PO SCH (10:58)
[2023-03-04] MEDS: VERAPAMIL HCL 240 MG E.R. TABLET PO SCH ×2 (10:58→22:03)
[2023-03-04] MEDS: POTASSIUM CHLORIDE TABS 10 MEQ TABLET.ER (FP) PO SCH ×2 (10:59→22:03)
[2023-03-04] MEDS: BUDESONIDE/FORMETEROL FUMARATE 160/4.5 mcg INHALER IH SCH ×2 (11:00→22:04)
[2023-03-04] MEDS: TIOTROPIUM BROMIDE 2.5 MCG (SPIRIVA) RESPIMAT INHALER IH SCH (11:00)
[2023-03-04] MEDS: FLUTICASONE PROP 0.05% 16 GM NASAL SPRAY NS SCH ×2 (11:00→21:55)
[2023-03-04] MEDS: FUROSEMIDE 40 MG/4 ML INJECTABLE VIAL IVPUSH SCH (12:26)
[2023-03-04] MEDS: FERROUS SO4 325 MG TABLET (FP) PO SCH (12:26)
[2023-03-04] MEDS: ACETAMINOPHEN 325 MG TABLET (FP) PO PRN (18:00)
[2023-03-04] MEDS: ATORVASTATIN CA 80 MG TABLET (FP) PO SCH (22:03)
[2023-03-04] MEDS: GABAPENTIN 300 MG CAPSULE PO SCH (22:04)
[2023-03-04] MEDS: MONTELUKAST NA 10 MG TABLET PO SCH (22:04)
[2023-03-05] MEDS: methylPREDNISolone NA SUCC 40 MG/1 ML VIAL IVPUSH SCH ×5 (04:27→21:43)
[2023-03-05] MEDS: SODIUM CHLORIDE NASAL SPRAY 44 ML BOTTLE NS SCH ×3 (06:43→21:51)
[2023-03-05] MEDS: ALBUTEROL SO4 0.083% IH SOL 2.5 MG/3 ML VIAL.NEB. NEB SCH ×4 (07:16→19:50)
[2023-03-05 09:13] LABS: HEMATOCRIT 28.7 % (32.4-45.2); HEMOGLOBIN 9.5 GM/dL (10.7-15.3); MEAN CELL VOLUME 84.7 fl (80-96); MEAN PLT VOLUME 6.5 fl (7.5-11.1); PLATELET COUNT 389 10^3/uL (134-434); RBC 3.38 M/mm3 (3.60-5.2); RDW 16.4 % (11.6-15.6); WHITE BLOOD COUNT 8.2 K/mm3 (4.0-10.0)
[2023-03-05 09:35] LABS: POTASSIUM 4.3 mmol/L (3.5-5.1)
[2023-03-05 09:39] LABS: ALBUMIN 2.8 g/dl (3.4-5.0); BLOOD UREA NITROGEN 21.6 mg/dL (7-18); CALCIUM 8.7 mg/dL (8.5-10.1)
[2023-03-05 09:42] LABS: CREATININE 0.8 mg/dL (0.55-1.3)
[2023-03-05 09:44] LABS: BILIRUBIN,TOTAL 0.4 mg/dL (0.2-1); TOT PROT 5.9 g/dl (6.4-8.2)
[2023-03-05] MEDS: CEFTRIAXONE 1 GM in DEXTROSE 5%-WATER - 50 ML IVPB SCH (10:29)
[2023-03-05] MEDS: AZITHROMYCIN IVPB 500 MG/250 ML BAG IVPB SCH (10:29)
[2023-03-05] MEDS: VERAPAMIL HCL 240 MG E.R. TABLET PO SCH ×2 (10:30→21:48)
[2023-03-05] MEDS: FUROSEMIDE 40 MG/4 ML INJECTABLE VIAL IVPUSH SCH (10:30)
[2023-03-05] MEDS: POLYETHYLENE GLYCOL (HEALTHYLAX) 3350 17 GM PACKET PO SCH (10:30)
[2023-03-05] MEDS: RANOLAZINE E.R. 500 MG TABLET (FP) PO SCH ×2 (10:31→21:51)
[2023-03-05] MEDS: MULTIVITAMINS (DAILY MVI) TABLET (FP) PO SCH (10:31)
[2023-03-05] MEDS: ISOSORBIDE MONONITRATE 30 MG TAB.SR.24H (FP) PO SCH ×2 (10:31→21:50)
[2023-03-05] MEDS: POTASSIUM CHLORIDE TABS 10 MEQ TABLET.ER (FP) PO SCH ×2 (10:32→21:50)
[2023-03-05] MEDS: ASPIRIN 81 MG CHEWABLE TABLETS PO SCH (10:32)
[2023-03-05] MEDS: PANTOPRAZOLE 40 MG TABLET PO SCH (10:32)
[2023-03-05] MEDS: CLOPIDOGREL BISULFATE 75 MG TABLET (FP) PO SCH (10:32)
[2023-03-05] MEDS: FOLIC ACID 1 MG TABLET (FP) PO SCH (10:33)
[2023-03-05] MEDS: TIOTROPIUM BROMIDE 2.5 MCG (SPIRIVA) RESPIMAT INHALER IH SCH (10:40)
[2023-03-05] MEDS: FLUTICASONE PROP 0.05% 16 GM NASAL SPRAY NS SCH ×2 (10:40→21:48)
[2023-03-05] MEDS: BUDESONIDE/FORMETEROL FUMARATE 160/4.5 mcg INHALER IH SCH ×2 (10:41→21:52)
[2023-03-05] MEDS: NYSTATIN 500,000 UNITS/5 ML SUSPENSION PO SCH ×3 (12:50→23:45)
[2023-03-05] MEDS: FERROUS SO4 325 MG TABLET (FP) PO SCH (12:50)
[2023-03-05] MEDS: AMOX TR/POT CLAV 875MG/125MG TABLETS (FP) PO SCH (20:11)
[2023-03-05] MEDS: predniSONE 20 MG TABLET (UD) PO SCH ×2 (20:18→21:43)
[2023-03-05] MEDS: ATORVASTATIN CA 80 MG TABLET (FP) PO SCH (21:50)
[2023-03-05] MEDS: GABAPENTIN 300 MG CAPSULE PO SCH (21:50)
[2023-03-05] MEDS: MONTELUKAST NA 10 MG TABLET PO SCH (21:51)
[2023-03-05] MEDS: MELATONIN 5 MG TABLETS PO PRN (21:52)
[2023-03-06] MEDS: methylPREDNISolone NA SUCC 40 MG/1 ML VIAL IVPUSH SCH ×3 (04:48→18:27)
[2023-03-06] MEDS: SODIUM CHLORIDE NASAL SPRAY 44 ML BOTTLE NS SCH ×3 (06:02→22:47)
[2023-03-06] MEDS: NYSTATIN 500,000 UNITS/5 ML SUSPENSION PO SCH ×4 (06:02→23:08)
[2023-03-06] MEDS: AMOX TR/POT CLAV 875MG/125MG TABLETS (FP) PO SCH (08:26)
[2023-03-06] MEDS: ALBUTEROL SO4 0.083% IH SOL 2.5 MG/3 ML VIAL.NEB. NEB SCH ×4 (08:42→20:19)
[2023-03-06] MEDS: POLYETHYLENE GLYCOL (HEALTHYLAX) 3350 17 GM PACKET PO SCH (09:05)
[2023-03-06] MEDS: MULTIVITAMINS (DAILY MVI) TABLET (FP) PO SCH (09:06)
[2023-03-06] MEDS: predniSONE 20 MG TABLET (UD) PO SCH (09:06)
[2023-03-06] MEDS: ASPIRIN 81 MG CHEWABLE TABLETS PO SCH (09:07)
[2023-03-06] MEDS: CLOPIDOGREL BISULFATE 75 MG TABLET (FP) PO SCH (09:07)
[2023-03-06] MEDS: RANOLAZINE E.R. 500 MG TABLET (FP) PO SCH ×2 (09:07→22:40)
[2023-03-06] MEDS: PANTOPRAZOLE 40 MG TABLET PO SCH (09:07)
[2023-03-06] MEDS: POTASSIUM CHLORIDE TABS 10 MEQ TABLET.ER (FP) PO SCH ×2 (09:07→22:40)
[2023-03-06] MEDS: FOLIC ACID 1 MG TABLET (FP) PO SCH (09:07)
[2023-03-06] MEDS: FLUTICASONE PROP 0.05% 16 GM NASAL SPRAY NS SCH ×2 (09:08→22:41)
[2023-03-06] MEDS: TIOTROPIUM BROMIDE 2.5 MCG (SPIRIVA) RESPIMAT INHALER IH SCH ×2 (09:09→17:34)
[2023-03-06] MEDS: BUDESONIDE/FORMETEROL FUMARATE 160/4.5 mcg INHALER IH SCH ×2 (09:09→22:47)
[2023-03-06] MEDS: ISOSORBIDE MONONITRATE 30 MG TAB.SR.24H (FP) PO SCH ×2 (09:51→22:41)
[2023-03-06] MEDS: VERAPAMIL HCL 240 MG E.R. TABLET PO SCH ×2 (09:51→22:41)
[2023-03-06] MEDS: FUROSEMIDE 40 MG/4 ML INJECTABLE VIAL IVPUSH SCH (09:55)
[2023-03-06] MEDS: CEFTRIAXONE 1 GM in DEXTROSE 5%-WATER - 50 ML IVPB SCH (09:56)
[2023-03-06] MEDS: AZITHROMYCIN IVPB 500 MG/250 ML BAG IVPB SCH (09:57)
[2023-03-06] MEDS ORDERED: ALPRAZolam 0.25 MG TABLET PO PRN (10:14)
[2023-03-06] MEDS ORDERED: FUROSEMIDE 40 MG TABLET (FP) PO ONE (10:15)
[2023-03-06] MEDS: FERROUS SO4 325 MG TABLET (FP) PO SCH (12:14)
[2023-03-06] MEDS ORDERED: CEFTRIAXONE 1 GM in DEXTROSE 5%-WATER - 50 ML IVPB ONE (17:27)
[2023-03-06] MEDS ORDERED: AZITHROMYCIN IVPB 500 MG/250 ML BAG IVPB ONE (17:28)
[2023-03-06] MEDS: GABAPENTIN 300 MG CAPSULE PO SCH (22:40)
[2023-03-06] MEDS: ATORVASTATIN CA 80 MG TABLET (FP) PO SCH (22:40)
[2023-03-06] MEDS: MONTELUKAST NA 10 MG TABLET PO SCH (22:40)
[2023-03-06] MEDS: MELATONIN 5 MG TABLETS PO PRN (23:06)
[2023-03-07] MEDS: methylPREDNISolone NA SUCC 40 MG/1 ML VIAL IVPUSH SCH ×3 (01:18→17:30)
[2023-03-07] MEDS: ALBUTEROL SO4 0.083% IH SOL 2.5 MG/3 ML VIAL.NEB. NEB PRN (01:55)
[2023-03-07] MEDS: NYSTATIN 500,000 UNITS/5 ML SUSPENSION PO SCH ×4 (05:23→23:07)
[2023-03-07] MEDS: SODIUM CHLORIDE NASAL SPRAY 44 ML BOTTLE NS SCH ×3 (05:23→23:10)
[2023-03-07] MEDS: ALBUTEROL SO4 0.083% IH SOL 2.5 MG/3 ML VIAL.NEB. NEB SCH ×4 (08:10→20:05)
[2023-03-07] MEDS: CEFTRIAXONE 1 GM in DEXTROSE 5%-WATER - 50 ML IVPB SCH (09:50)
[2023-03-07] MEDS: POLYETHYLENE GLYCOL (HEALTHYLAX) 3350 17 GM PACKET PO SCH (09:50)
[2023-03-07] MEDS: VERAPAMIL HCL 240 MG E.R. TABLET PO SCH ×2 (09:50→23:10)
[2023-03-07] MEDS: ISOSORBIDE MONONITRATE 30 MG TAB.SR.24H (FP) PO SCH ×2 (09:51→23:09)
[2023-03-07] MEDS: ASPIRIN 81 MG CHEWABLE TABLETS PO SCH (09:51)
[2023-03-07] MEDS: PANTOPRAZOLE 40 MG TABLET PO SCH (09:51)
[2023-03-07] MEDS: FUROSEMIDE 40 MG/4 ML INJECTABLE VIAL IVPUSH SCH (09:51)
[2023-03-07] MEDS: CLOPIDOGREL BISULFATE 75 MG TABLET (FP) PO SCH (09:52)
[2023-03-07] MEDS: MULTIVITAMINS (DAILY MVI) TABLET (FP) PO SCH (09:52)
[2023-03-07] MEDS: POTASSIUM CHLORIDE TABS 10 MEQ TABLET.ER (FP) PO SCH ×2 (09:52→23:09)
[2023-03-07] MEDS: FOLIC ACID 1 MG TABLET (FP) PO SCH (09:52)
[2023-03-07] MEDS: RANOLAZINE E.R. 500 MG TABLET (FP) PO SCH ×2 (09:52→23:09)
[2023-03-07] MEDS: BUDESONIDE/FORMETEROL FUMARATE 160/4.5 mcg INHALER IH SCH ×2 (09:53→23:11)
[2023-03-07] MEDS: FLUTICASONE PROP 0.05% 16 GM NASAL SPRAY NS SCH ×2 (09:53→23:10)
[2023-03-07] MEDS: TIOTROPIUM BROMIDE 2.5 MCG (SPIRIVA) RESPIMAT INHALER IH SCH (09:54)
[2023-03-07 10:35] LABS: HEMATOCRIT 29.9 % (32.4-45.2); HEMOGLOBIN 9.7 GM/dL (10.7-15.3); MCH 28.3 pg (25.7-33.7); MCHC 32.4 g/dl (32.0-36.0); MEAN CELL VOLUME 87.3 fl (80-96); MEAN PLT VOLUME 6.7 fl (7.5-11.1); PLATELET COUNT 479 10^3/uL (134-434); RBC 3.42 M/mm3 (3.60-5.2); RDW 16.7 % (11.6-15.6); WHITE BLOOD COUNT 10.5 K/mm3 (4.0-10.0)
[2023-03-07] MEDS: AZITHROMYCIN IVPB 500 MG/250 ML BAG IVPB SCH (10:53)
[2023-03-07 11:06] LABS: POTASSIUM 4.4 mmol/L (3.5-5.1)
[2023-03-07 11:09] LABS: ALBUMIN 2.8 g/dl (3.4-5.0); BLOOD UREA NITROGEN 22.2 mg/dL (7-18); CALCIUM 8.6 mg/dL (8.5-10.1)
[2023-03-07 11:12] LABS: CREATININE 0.7 mg/dL (0.55-1.3)
[2023-03-07 11:13] LABS: BILIRUBIN,TOTAL 0.4 mg/dL (0.2-1); TOT PROT 5.9 g/dl (6.4-8.2)
[2023-03-07] MEDS: FERROUS SO4 325 MG TABLET (FP) PO SCH (12:47)
[2023-03-07 13:13] LABS: ANISOCYTOSIS 0; MACROCYTOSIS 0
[2023-03-07] MEDS: MELATONIN 5 MG TABLETS PO PRN (23:09)
[2023-03-07] MEDS: MONTELUKAST NA 10 MG TABLET PO SCH (23:09)
[2023-03-07] MEDS: ATORVASTATIN CA 80 MG TABLET (FP) PO SCH (23:10)
[2023-03-07] MEDS: GABAPENTIN 300 MG CAPSULE PO SCH (23:10)
[2023-03-08] MEDS: methylPREDNISolone NA SUCC 40 MG/1 ML VIAL IVPUSH SCH ×3 (01:55→17:40)
[2023-03-08] MEDS: NYSTATIN 500,000 UNITS/5 ML SUSPENSION PO SCH ×3 (05:26→17:39)
[2023-03-08] MEDS: SODIUM CHLORIDE NASAL SPRAY 44 ML BOTTLE NS SCH ×2 (05:26→13:13)
[2023-03-08] MEDS: ALBUTEROL SO4 0.083% IH SOL 2.5 MG/3 ML VIAL.NEB. NEB SCH ×4 (07:40→20:25)
[2023-03-08] MEDS: FUROSEMIDE 40 MG/4 ML INJECTABLE VIAL IVPUSH SCH (10:24)
[2023-03-08] MEDS: CEFTRIAXONE 1 GM in DEXTROSE 5%-WATER - 50 ML IVPB SCH (10:24)
[2023-03-08] MEDS: POTASSIUM CHLORIDE TABS 10 MEQ TABLET.ER (FP) PO SCH (10:24)
[2023-03-08] MEDS: MULTIVITAMINS (DAILY MVI) TABLET (FP) PO SCH (10:25)
[2023-03-08] MEDS: ISOSORBIDE MONONITRATE 30 MG TAB.SR.24H (FP) PO SCH (10:25)
[2023-03-08] MEDS: PANTOPRAZOLE 40 MG TABLET PO SCH (10:25)
[2023-03-08] MEDS: CLOPIDOGREL BISULFATE 75 MG TABLET (FP) PO SCH (10:25)
[2023-03-08] MEDS: ASPIRIN 81 MG CHEWABLE TABLETS PO SCH (10:25)
[2023-03-08] MEDS: VERAPAMIL HCL 240 MG E.R. TABLET PO SCH (10:25)
[2023-03-08] MEDS: FOLIC ACID 1 MG TABLET (FP) PO SCH (10:25)
[2023-03-08] MEDS: RANOLAZINE E.R. 500 MG TABLET (FP) PO SCH (10:25)
[2023-03-08] MEDS: BUDESONIDE/FORMETEROL FUMARATE 160/4.5 mcg INHALER IH SCH (10:26)
[2023-03-08] MEDS: TIOTROPIUM BROMIDE 2.5 MCG (SPIRIVA) RESPIMAT INHALER IH SCH (10:26)
[2023-03-08] MEDS: FLUTICASONE PROP 0.05% 16 GM NASAL SPRAY NS SCH (10:26)
[2023-03-08] MEDS: POLYETHYLENE GLYCOL (HEALTHYLAX) 3350 17 GM PACKET PO SCH (10:46)
[2023-03-08] MEDS: AZITHROMYCIN IVPB 500 MG/250 ML BAG IVPB SCH (11:17)
[2023-03-08] MEDS: FERROUS SO4 325 MG TABLET (FP) PO SCH (13:13)
[2023-03-09] MEDS: ISOSORBIDE MONONITRATE 30 MG TAB.SR.24H (FP) PO SCH ×3 (00:18→22:28)
[2023-03-09] MEDS: POTASSIUM CHLORIDE TABS 10 MEQ TABLET.ER (FP) PO SCH ×3 (00:18→22:28)
[2023-03-09] MEDS: FLUTICASONE PROP 0.05% 16 GM NASAL SPRAY NS SCH ×3 (00:18→22:29)
[2023-03-09] MEDS: ATORVASTATIN CA 80 MG TABLET (FP) PO SCH ×2 (00:18→22:29)
[2023-03-09] MEDS: VERAPAMIL HCL 240 MG E.R. TABLET PO SCH ×3 (00:18→23:11)
[2023-03-09] MEDS: GABAPENTIN 300 MG CAPSULE PO SCH ×2 (00:19→22:28)
[2023-03-09] MEDS: BUDESONIDE/FORMETEROL FUMARATE 160/4.5 mcg INHALER IH SCH ×3 (00:19→22:30)
[2023-03-09] MEDS: MONTELUKAST NA 10 MG TABLET PO SCH ×2 (00:19→22:28)
[2023-03-09] MEDS: RANOLAZINE E.R. 500 MG TABLET (FP) PO SCH ×3 (00:19→22:28)
[2023-03-09] MEDS: SODIUM CHLORIDE NASAL SPRAY 44 ML BOTTLE NS SCH ×4 (00:19→22:29)
[2023-03-09] MEDS: NYSTATIN 500,000 UNITS/5 ML SUSPENSION PO SCH ×4 (00:19→18:54)
[2023-03-09] MEDS: methylPREDNISolone NA SUCC 40 MG/1 ML VIAL IVPUSH SCH ×3 (01:50→18:54)
[2023-03-09] MEDS: ALBUTEROL SO4 0.083% IH SOL 2.5 MG/3 ML VIAL.NEB. NEB SCH ×2 (07:50→11:40)
[2023-03-09] MEDS: CEFTRIAXONE 1 GM in DEXTROSE 5%-WATER - 50 ML IVPB SCH (10:17)
[2023-03-09] MEDS: TIOTROPIUM BROMIDE 2.5 MCG (SPIRIVA) RESPIMAT INHALER IH SCH (10:17)
[2023-03-09] MEDS: POLYETHYLENE GLYCOL (HEALTHYLAX) 3350 17 GM PACKET PO SCH (10:18)
[2023-03-09] MEDS: MULTIVITAMINS (DAILY MVI) TABLET (FP) PO SCH (10:18)
[2023-03-09] MEDS: CLOPIDOGREL BISULFATE 75 MG TABLET (FP) PO SCH (10:18)
[2023-03-09] MEDS: FUROSEMIDE 40 MG/4 ML INJECTABLE VIAL IVPUSH SCH (10:18)
[2023-03-09] MEDS: FOLIC ACID 1 MG TABLET (FP) PO SCH (10:18)
[2023-03-09] MEDS: PANTOPRAZOLE 40 MG TABLET PO SCH (10:18)
[2023-03-09] MEDS: ASPIRIN 81 MG CHEWABLE TABLETS PO SCH (10:18)
[2023-03-09] MEDS: FERROUS SO4 325 MG TABLET (FP) PO SCH (11:18)
[2023-03-09] MEDS: AZITHROMYCIN IVPB 500 MG/250 ML BAG IVPB SCH (11:18)
[2023-03-09] MEDS: LACTOBACILLUS ACIDOPHILUS 1 TABLET PO SCH (14:10)
[2023-03-09] MEDS: MELATONIN 5 MG TABLETS PO PRN (22:28)
[2023-03-10] MEDS: NYSTATIN 500,000 UNITS/5 ML SUSPENSION PO SCH ×4 (00:18→17:32)
[2023-03-10] MEDS: guaiFENesin/D-METHORPHAN HB 10 ML UNIT-DOSE CUPS PO PRN (00:54)
[2023-03-10] MEDS: ALBUTEROL SO4 0.083% IH SOL 2.5 MG/3 ML VIAL.NEB. NEB PRN ×2 (01:00→20:30)
[2023-03-10] MEDS: methylPREDNISolone NA SUCC 40 MG/1 ML VIAL IVPUSH SCH ×3 (01:55→17:34)
[2023-03-10] MEDS: SODIUM CHLORIDE NASAL SPRAY 44 ML BOTTLE NS SCH ×3 (06:03→21:41)
[2023-03-10] MEDS: CEFTRIAXONE 1 GM in DEXTROSE 5%-WATER - 50 ML IVPB SCH (09:28)
[2023-03-10] MEDS: VERAPAMIL HCL 240 MG E.R. TABLET PO SCH ×2 (09:28→21:39)
[2023-03-10] MEDS: PANTOPRAZOLE 40 MG TABLET PO SCH (09:29)
[2023-03-10] MEDS: RANOLAZINE E.R. 500 MG TABLET (FP) PO SCH ×2 (09:29→21:41)
[2023-03-10] MEDS: FUROSEMIDE 40 MG/4 ML INJECTABLE VIAL IVPUSH SCH (09:29)
[2023-03-10] MEDS: ASPIRIN 81 MG CHEWABLE TABLETS PO SCH (09:29)
[2023-03-10] MEDS: FOLIC ACID 1 MG TABLET (FP) PO SCH (09:29)
[2023-03-10] MEDS: CLOPIDOGREL BISULFATE 75 MG TABLET (FP) PO SCH (09:30)
[2023-03-10] MEDS: ISOSORBIDE MONONITRATE 30 MG TAB.SR.24H (FP) PO SCH ×2 (09:30→21:40)
[2023-03-10] MEDS: POTASSIUM CHLORIDE TABS 10 MEQ TABLET.ER (FP) PO SCH ×2 (09:30→21:40)
[2023-03-10] MEDS: FLUTICASONE PROP 0.05% 16 GM NASAL SPRAY NS SCH ×2 (09:31→21:39)
[2023-03-10] MEDS: TIOTROPIUM BROMIDE 2.5 MCG (SPIRIVA) RESPIMAT INHALER IH SCH (09:31)
[2023-03-10] MEDS: POLYETHYLENE GLYCOL (HEALTHYLAX) 3350 17 GM PACKET PO SCH (09:31)
[2023-03-10] MEDS: BUDESONIDE/FORMETEROL FUMARATE 160/4.5 mcg INHALER IH SCH ×2 (09:31→22:22)
[2023-03-10] MEDS: LACTOBACILLUS ACIDOPHILUS 1 TABLET PO SCH (09:31)
[2023-03-10] MEDS: MULTIVITAMINS (DAILY MVI) TABLET (FP) PO SCH (09:32)
[2023-03-10] MEDS: AZITHROMYCIN IVPB 500 MG/250 ML BAG IVPB SCH (11:16)
[2023-03-10] MEDS: FERROUS SO4 325 MG TABLET (FP) PO SCH (11:16)
[2023-03-10 11:49] LABS: HEMATOCRIT 30.5 % (32.4-45.2); HEMOGLOBIN 9.9 GM/dL (10.7-15.3); MCH 28.6 pg (25.7-33.7); MCHC 32.5 g/dl (32.0-36.0); MEAN PLT VOLUME 6.8 fl (7.5-11.1); PLATELET COUNT 558 10^3/uL (134-434); RBC 3.47 M/mm3 (3.60-5.2); RDW 17.8 % (11.6-15.6); WHITE BLOOD COUNT 20.2 K/mm3 (4.0-10.0)
[2023-03-10 12:08] LABS: ANISOCYTOSIS 0; HELMET CELLS 0; HOWELL-JOLLY BODIES 0; MACROCYTOSIS 0; OVALOCYTE 0; ROULEAU 0; SICKELED CELLS 0; TARGET CELLS 0; TEAR DROP CELLS 0; TOXIC GRANULATION 0
[2023-03-10 12:09] LABS: POTASSIUM 4.3 mmol/L (3.5-5.1)
[2023-03-10 12:11] LABS: CALCIUM 8.9 mg/dL (8.5-10.1)
[2023-03-10 12:12] LABS: BLOOD UREA NITROGEN 24.7 mg/dL (7-18)
[2023-03-10 12:15] LABS: CREATININE 0.8 mg/dL (0.55-1.3)
[2023-03-10 12:16] LABS: BILIRUBIN,TOTAL 0.3 mg/dL (0.2-1); TOT PROT 6.2 g/dl (6.4-8.2)
[2023-03-10] MEDS ORDERED: VERAPAMIL HCL 240 MG E.R. TABLET PO SCH (12:21)
[2023-03-10] MEDS: ALPRAZolam 0.25 MG TABLET PO PRN (15:14)
[2023-03-10] MEDS: INSULIN SLIDING SCALE (NOVOLOG) 1 VIAL SQ SCH ×2 (17:34→22:42)
[2023-03-10] MEDS: ATORVASTATIN CA 80 MG TABLET (FP) PO SCH (21:40)
[2023-03-10] MEDS: GABAPENTIN 300 MG CAPSULE PO SCH (21:40)
[2023-03-10] MEDS: MONTELUKAST NA 10 MG TABLET PO SCH (21:41)
[2023-03-10] MEDS: MELATONIN 5 MG TABLETS PO PRN (21:41)
[2023-03-11] MEDS: NYSTATIN 500,000 UNITS/5 ML SUSPENSION PO SCH ×4 (01:21→18:08)
[2023-03-11] MEDS: methylPREDNISolone NA SUCC 40 MG/1 ML VIAL IVPUSH SCH ×3 (02:47→18:10)
[2023-03-11] MEDS: SODIUM CHLORIDE NASAL SPRAY 44 ML BOTTLE NS SCH ×3 (06:52→22:08)
[2023-03-11] MEDS: INSULIN SLIDING SCALE (NOVOLOG) 1 VIAL SQ SCH ×4 (06:55→22:07)
[2023-03-11] MEDS: ALBUTEROL SO4 0.083% IH SOL 2.5 MG/3 ML VIAL.NEB. NEB PRN ×2 (09:29→15:13)
[2023-03-11] MEDS: ALPRAZolam 0.25 MG TABLET PO PRN (10:25)
[2023-03-11] MEDS: CEFTRIAXONE 1 GM in DEXTROSE 5%-WATER - 50 ML IVPB SCH (10:26)
[2023-03-11] MEDS: VERAPAMIL HCL 240 MG E.R. TABLET PO SCH ×2 (10:26→22:14)
[2023-03-11] MEDS: ISOSORBIDE MONONITRATE 30 MG TAB.SR.24H (FP) PO SCH ×2 (10:27→22:05)
[2023-03-11] MEDS: POLYETHYLENE GLYCOL (HEALTHYLAX) 3350 17 GM PACKET PO SCH (10:27)
[2023-03-11] MEDS: CLOPIDOGREL BISULFATE 75 MG TABLET (FP) PO SCH (10:28)
[2023-03-11] MEDS: FUROSEMIDE 40 MG/4 ML INJECTABLE VIAL IVPUSH SCH (10:28)
[2023-03-11] MEDS: PANTOPRAZOLE 40 MG TABLET PO SCH (10:28)
[2023-03-11] MEDS: MULTIVITAMINS (DAILY MVI) TABLET (FP) PO SCH (10:28)
[2023-03-11] MEDS: ASPIRIN 81 MG CHEWABLE TABLETS PO SCH (10:28)
[2023-03-11] MEDS: POTASSIUM CHLORIDE TABS 10 MEQ TABLET.ER (FP) PO SCH ×2 (10:28→22:05)
[2023-03-11] MEDS: FOLIC ACID 1 MG TABLET (FP) PO SCH (10:28)
[2023-03-11] MEDS: LACTOBACILLUS ACIDOPHILUS 1 TABLET PO SCH (10:28)
[2023-03-11] MEDS: RANOLAZINE E.R. 500 MG TABLET (FP) PO SCH ×2 (10:28→22:07)
[2023-03-11] MEDS: BUDESONIDE/FORMETEROL FUMARATE 160/4.5 mcg INHALER IH SCH ×2 (10:29→22:04)
[2023-03-11] MEDS: AZITHROMYCIN IVPB 500 MG/250 ML BAG IVPB SCH (10:30)
[2023-03-11] MEDS: TIOTROPIUM BROMIDE 2.5 MCG (SPIRIVA) RESPIMAT INHALER IH SCH (10:30)
[2023-03-11] MEDS: FLUTICASONE PROP 0.05% 16 GM NASAL SPRAY NS SCH ×2 (10:30→22:05)
[2023-03-11] MEDS: FERROUS SO4 325 MG TABLET (FP) PO SCH (12:54)
[2023-03-11] MEDS: GABAPENTIN 300 MG CAPSULE PO SCH (22:05)
[2023-03-11] MEDS: ATORVASTATIN CA 80 MG TABLET (FP) PO SCH (22:05)
[2023-03-11] MEDS: MONTELUKAST NA 10 MG TABLET PO SCH (22:05)
[2023-03-11] MEDS: MELATONIN 5 MG TABLETS PO PRN (22:11)
[2023-03-12] MEDS: NYSTATIN 500,000 UNITS/5 ML SUSPENSION PO SCH ×4 (01:43→17:25)
[2023-03-12] MEDS: methylPREDNISolone NA SUCC 40 MG/1 ML VIAL IVPUSH SCH ×3 (01:43→18:47)
[2023-03-12] MEDS: SODIUM CHLORIDE NASAL SPRAY 44 ML BOTTLE NS SCH ×3 (07:12→21:18)
[2023-03-12] MEDS: ALPRAZolam 0.25 MG TABLET PO PRN (07:13)
[2023-03-12] MEDS: INSULIN SLIDING SCALE (NOVOLOG) 1 VIAL SQ SCH ×4 (07:13→21:17)
[2023-03-12] MEDS: ALBUTEROL SO4 0.083% IH SOL 2.5 MG/3 ML VIAL.NEB. NEB PRN (08:18)
[2023-03-12] MEDS: PANTOPRAZOLE 40 MG TABLET PO SCH (09:45)
[2023-03-12] MEDS: FOLIC ACID 1 MG TABLET (FP) PO SCH (09:45)
[2023-03-12] MEDS: RANOLAZINE E.R. 500 MG TABLET (FP) PO SCH ×2 (09:45→21:53)
[2023-03-12] MEDS: ASPIRIN 81 MG CHEWABLE TABLETS PO SCH (09:46)
[2023-03-12] MEDS: LACTOBACILLUS ACIDOPHILUS 1 TABLET PO SCH (09:46)
[2023-03-12] MEDS: MULTIVITAMINS (DAILY MVI) TABLET (FP) PO SCH (09:46)
[2023-03-12] MEDS: POTASSIUM CHLORIDE TABS 10 MEQ TABLET.ER (FP) PO SCH ×2 (09:46→21:53)
[2023-03-12] MEDS: ISOSORBIDE MONONITRATE 30 MG TAB.SR.24H (FP) PO SCH ×2 (09:46→21:52)
[2023-03-12] MEDS: CLOPIDOGREL BISULFATE 75 MG TABLET (FP) PO SCH (09:47)
[2023-03-12] MEDS: VERAPAMIL HCL 240 MG E.R. TABLET PO SCH ×2 (09:47→22:17)
[2023-03-12] MEDS: BUDESONIDE/FORMETEROL FUMARATE 160/4.5 mcg INHALER IH SCH ×2 (09:48→21:18)
[2023-03-12] MEDS: TIOTROPIUM BROMIDE 2.5 MCG (SPIRIVA) RESPIMAT INHALER IH SCH (09:49)
[2023-03-12] MEDS: CEFTRIAXONE 1 GM in DEXTROSE 5%-WATER - 50 ML IVPB SCH (09:49)
[2023-03-12] MEDS: FLUTICASONE PROP 0.05% 16 GM NASAL SPRAY NS SCH ×2 (09:49→21:18)
[2023-03-12] MEDS: FUROSEMIDE 40 MG/4 ML INJECTABLE VIAL IVPUSH SCH (09:51)
[2023-03-12] MEDS: POLYETHYLENE GLYCOL (HEALTHYLAX) 3350 17 GM PACKET PO SCH (09:51)
[2023-03-12] MEDS ORDERED: methylPREDNISolone NA SUCC 40 MG/1 ML VIAL IVPUSH SCH (09:59)
[2023-03-12] MEDS ORDERED: FUROSEMIDE 20 MG TABLET (FP) PO SCH (10:00)
[2023-03-12] MEDS: AZITHROMYCIN IVPB 500 MG/250 ML BAG IVPB SCH (12:30)
[2023-03-12] MEDS: ALBUTEROL SO4 0.083% IH SOL 2.5 MG/3 ML VIAL.NEB. NEB SCH ×3 (12:50→20:05)
[2023-03-12] MEDS: FERROUS SO4 325 MG TABLET (FP) PO SCH (13:39)
[2023-03-12] MEDS: MONTELUKAST NA 10 MG TABLET PO SCH (21:53)
[2023-03-12] MEDS: GABAPENTIN 300 MG CAPSULE PO SCH (21:53)
[2023-03-12] MEDS: MELATONIN 5 MG TABLETS PO PRN (21:53)
[2023-03-12] MEDS: ATORVASTATIN CA 80 MG TABLET (FP) PO SCH (21:53)
[2023-03-13] MEDS: NYSTATIN 500,000 UNITS/5 ML SUSPENSION PO SCH ×4 (01:30→18:18)
[2023-03-13] MEDS: methylPREDNISolone NA SUCC 40 MG/1 ML VIAL IVPUSH SCH ×3 (01:36→18:18)
[2023-03-13] MEDS: INSULIN SLIDING SCALE (NOVOLOG) 1 VIAL SQ SCH ×4 (06:10→22:35)
[2023-03-13] MEDS: SODIUM CHLORIDE NASAL SPRAY 44 ML BOTTLE NS SCH ×3 (06:11→22:28)
[2023-03-13] MEDS: ALBUTEROL SO4 0.083% IH SOL 2.5 MG/3 ML VIAL.NEB. NEB SCH ×4 (07:55→20:13)
[2023-03-13] MEDS: ASPIRIN 81 MG CHEWABLE TABLETS PO SCH (10:32)
[2023-03-13] MEDS: LACTOBACILLUS ACIDOPHILUS 1 TABLET PO SCH (10:32)
[2023-03-13] MEDS: MULTIVITAMINS (DAILY MVI) TABLET (FP) PO SCH (10:32)
[2023-03-13] MEDS: POTASSIUM CHLORIDE TABS 10 MEQ TABLET.ER (FP) PO SCH ×2 (10:32→22:27)
[2023-03-13] MEDS: FOLIC ACID 1 MG TABLET (FP) PO SCH (10:32)
[2023-03-13] MEDS: CEFTRIAXONE 1 GM in DEXTROSE 5%-WATER - 50 ML IVPB SCH (10:32)
[2023-03-13] MEDS: PANTOPRAZOLE 40 MG TABLET PO SCH (10:32)
[2023-03-13] MEDS: CLOPIDOGREL BISULFATE 75 MG TABLET (FP) PO SCH (10:32)
[2023-03-13] MEDS: ISOSORBIDE MONONITRATE 30 MG TAB.SR.24H (FP) PO SCH ×2 (10:32→22:27)
[2023-03-13] MEDS: RANOLAZINE E.R. 500 MG TABLET (FP) PO SCH ×2 (10:32→22:28)
[2023-03-13] MEDS: VERAPAMIL HCL 240 MG E.R. TABLET PO SCH ×2 (10:33→22:26)
[2023-03-13] MEDS: POLYETHYLENE GLYCOL (HEALTHYLAX) 3350 17 GM PACKET PO SCH (10:34)
[2023-03-13] MEDS: FUROSEMIDE 20 MG TABLET (FP) PO SCH (10:34)
[2023-03-13] MEDS: FLUTICASONE PROP 0.05% 16 GM NASAL SPRAY NS SCH ×2 (10:34→22:27)
[2023-03-13] MEDS: BUDESONIDE/FORMETEROL FUMARATE 160/4.5 mcg INHALER IH SCH ×2 (10:35→22:29)
[2023-03-13] MEDS: TIOTROPIUM BROMIDE 2.5 MCG (SPIRIVA) RESPIMAT INHALER IH SCH (10:35)
[2023-03-13 11:01] LABS: HEMATOCRIT 24.5 % (32.4-45.2); HEMOGLOBIN 7.8 GM/dL (10.7-15.3); MCH 27.9 pg (25.7-33.7); MEAN CELL VOLUME 87.1 fl (80-96); MEAN PLT VOLUME 6.8 fl (7.5-11.1); PLATELET COUNT 301 10^3/uL (134-434); RBC 2.81 M/mm3 (3.60-5.2); RDW 17.8 % (11.6-15.6); WHITE BLOOD COUNT 14.6 K/mm3 (4.0-10.0)
[2023-03-13 11:20] LABS: POTASSIUM 4.2 mmol/L (3.5-5.1)
[2023-03-13 11:23] LABS: CALCIUM 8.4 mg/dL (8.5-10.1)
[2023-03-13 11:24] LABS: ALBUMIN 2.6 g/dl (3.4-5.0); BLOOD UREA NITROGEN 24.7 mg/dL (7-18)
[2023-03-13] MEDS: AZITHROMYCIN IVPB 500 MG/250 ML BAG IVPB SCH (11:24)
[2023-03-13 11:27] LABS: CREATININE 0.8 mg/dL (0.55-1.3)
[2023-03-13 11:28] LABS: BILIRUBIN,TOTAL 0.5 mg/dL (0.2-1); TOT PROT 4.9 g/dl (6.4-8.2)
[2023-03-13 11:49] LABS: ANISOCYTOSIS 0; HELMET CELLS 0; HOWELL-JOLLY BODIES 0; MACROCYTOSIS 0; OVALOCYTE 0; ROULEAU 0; SICKELED CELLS 0; TARGET CELLS 0; TEAR DROP CELLS 0; TOXIC GRANULATION 0
[2023-03-13] MEDS: FERROUS SO4 325 MG TABLET (FP) PO SCH (13:03)
[2023-03-13] MEDS: ATORVASTATIN CA 80 MG TABLET (FP) PO SCH (22:28)
[2023-03-13] MEDS: GABAPENTIN 300 MG CAPSULE PO SCH (22:28)
[2023-03-13] MEDS: MONTELUKAST NA 10 MG TABLET PO SCH (22:28)
[2023-03-13] MEDS: MELATONIN 5 MG TABLETS PO PRN (22:32)
[2023-03-14] MEDS: NYSTATIN 500,000 UNITS/5 ML SUSPENSION PO SCH ×4 (03:12→17:06)
[2023-03-14] MEDS: methylPREDNISolone NA SUCC 40 MG/1 ML VIAL IVPUSH SCH ×3 (03:12→17:07)
[2023-03-14] MEDS: SODIUM CHLORIDE NASAL SPRAY 44 ML BOTTLE NS SCH ×3 (06:45→21:49)
[2023-03-14] MEDS: INSULIN SLIDING SCALE (NOVOLOG) 1 VIAL SQ SCH ×4 (06:47→21:46)
[2023-03-14] MEDS: ALBUTEROL SO4 0.083% IH SOL 2.5 MG/3 ML VIAL.NEB. NEB SCH ×4 (07:15→20:01)
[2023-03-14] MEDS: CEFTRIAXONE 1 GM in DEXTROSE 5%-WATER - 50 ML IVPB SCH (09:42)
[2023-03-14] MEDS: POLYETHYLENE GLYCOL (HEALTHYLAX) 3350 17 GM PACKET PO SCH ×2 (09:43→09:52)
[2023-03-14] MEDS: ISOSORBIDE MONONITRATE 30 MG TAB.SR.24H (FP) PO SCH ×2 (09:43→21:48)
[2023-03-14] MEDS: PANTOPRAZOLE 40 MG TABLET PO SCH (09:43)
[2023-03-14] MEDS: RANOLAZINE E.R. 500 MG TABLET (FP) PO SCH ×2 (09:43→21:48)
[2023-03-14] MEDS: POTASSIUM CHLORIDE TABS 10 MEQ TABLET.ER (FP) PO SCH ×2 (09:43→21:48)
[2023-03-14] MEDS: FOLIC ACID 1 MG TABLET (FP) PO SCH (09:43)
[2023-03-14] MEDS: MULTIVITAMINS (DAILY MVI) TABLET (FP) PO SCH (09:43)
[2023-03-14] MEDS: VERAPAMIL HCL 240 MG E.R. TABLET PO SCH ×2 (09:43→21:49)
[2023-03-14] MEDS: CLOPIDOGREL BISULFATE 75 MG TABLET (FP) PO SCH (09:43)
[2023-03-14] MEDS: LACTOBACILLUS ACIDOPHILUS 1 TABLET PO SCH ×2 (09:43→09:51)
[2023-03-14] MEDS: FUROSEMIDE 20 MG TABLET (FP) PO SCH (09:43)
[2023-03-14] MEDS: ASPIRIN 81 MG CHEWABLE TABLETS PO SCH (09:43)
[2023-03-14] MEDS: AZITHROMYCIN IVPB 500 MG/250 ML BAG IVPB SCH (09:43)
[2023-03-14] MEDS: BUDESONIDE/FORMETEROL FUMARATE 160/4.5 mcg INHALER IH SCH ×2 (09:44→21:49)
[2023-03-14] MEDS: TIOTROPIUM BROMIDE 2.5 MCG (SPIRIVA) RESPIMAT INHALER IH SCH (09:44)
[2023-03-14] MEDS: FLUTICASONE PROP 0.05% 16 GM NASAL SPRAY NS SCH ×2 (09:44→21:48)
[2023-03-14] MEDS: FERROUS SO4 325 MG TABLET (FP) PO SCH (12:07)
[2023-03-14] MEDS: MELATONIN 5 MG TABLETS PO PRN (21:48)
[2023-03-14] MEDS: GABAPENTIN 300 MG CAPSULE PO SCH (21:48)
[2023-03-14] MEDS: MONTELUKAST NA 10 MG TABLET PO SCH (21:48)
[2023-03-14] MEDS: ATORVASTATIN CA 80 MG TABLET (FP) PO SCH (21:48)
[2023-03-15] MEDS: NYSTATIN 500,000 UNITS/5 ML SUSPENSION PO SCH ×5 (01:11→19:20)
[2023-03-15] MEDS: methylPREDNISolone NA SUCC 40 MG/1 ML VIAL IVPUSH SCH ×3 (01:12→17:55)
[2023-03-15] MEDS: SODIUM CHLORIDE NASAL SPRAY 44 ML BOTTLE NS SCH ×3 (05:32→21:41)
[2023-03-15] MEDS ORDERED: INSULIN SLIDING SCALE (NOVOLOG) 1 VIAL SQ ONE ×2 (06:18→21:04)
[2023-03-15] MEDS: INSULIN SLIDING SCALE (NOVOLOG) 1 VIAL SQ SCH ×4 (06:21→21:36)
[2023-03-15] MEDS: ALBUTEROL SO4 0.083% IH SOL 2.5 MG/3 ML VIAL.NEB. NEB SCH ×4 (07:20→20:07)
[2023-03-15 09:48] LABS: HEMATOCRIT 26.3 % (32.4-45.2); HEMOGLOBIN 8.4 GM/dL (10.7-15.3); MCH 28.3 pg (25.7-33.7); MEAN CELL VOLUME 88.2 fl (80-96); MEAN PLT VOLUME 6.7 fl (7.5-11.1); PLATELET COUNT 285 10^3/uL (134-434); RBC 2.98 M/mm3 (3.60-5.2); WHITE BLOOD COUNT 15.4 K/mm3 (4.0-10.0)
[2023-03-15] MEDS: CEFTRIAXONE 1 GM in DEXTROSE 5%-WATER - 50 ML IVPB SCH (09:52)
[2023-03-15] MEDS: ISOSORBIDE MONONITRATE 30 MG TAB.SR.24H (FP) PO SCH ×2 (09:54→21:35)
[2023-03-15] MEDS: POTASSIUM CHLORIDE TABS 10 MEQ TABLET.ER (FP) PO SCH ×2 (09:54→21:35)
[2023-03-15] MEDS: PANTOPRAZOLE 40 MG TABLET PO SCH (09:55)
[2023-03-15] MEDS: RANOLAZINE E.R. 500 MG TABLET (FP) PO SCH ×2 (09:55→21:35)
[2023-03-15] MEDS: FOLIC ACID 1 MG TABLET (FP) PO SCH (09:56)
[2023-03-15] MEDS: CLOPIDOGREL BISULFATE 75 MG TABLET (FP) PO SCH (09:56)
[2023-03-15] MEDS: MULTIVITAMINS (DAILY MVI) TABLET (FP) PO SCH (09:56)
[2023-03-15 09:57] LABS: POTASSIUM 4.4 mmol/L (3.5-5.1)
[2023-03-15] MEDS: VERAPAMIL HCL 240 MG E.R. TABLET PO SCH ×2 (09:57→21:35)
[2023-03-15] MEDS: ASPIRIN 81 MG CHEWABLE TABLETS PO SCH (09:57)
[2023-03-15] MEDS: LACTOBACILLUS ACIDOPHILUS 1 TABLET PO SCH (09:58)
[2023-03-15] MEDS: FUROSEMIDE 20 MG TABLET (FP) PO SCH (09:58)
[2023-03-15] MEDS: AZITHROMYCIN IVPB 500 MG/250 ML BAG IVPB SCH (10:00)
[2023-03-15] MEDS: BUDESONIDE/FORMETEROL FUMARATE 160/4.5 mcg INHALER IH SCH ×2 (10:02→21:41)
[2023-03-15] MEDS: TIOTROPIUM BROMIDE 2.5 MCG (SPIRIVA) RESPIMAT INHALER IH SCH (10:03)
[2023-03-15] MEDS: FLUTICASONE PROP 0.05% 16 GM NASAL SPRAY NS SCH ×2 (10:04→21:36)
[2023-03-15 10:06] LABS: BLOOD UREA NITROGEN 21.4 mg/dL (7-18)
[2023-03-15 10:07] LABS: ALBUMIN 2.9 g/dl (3.4-5.0); CALCIUM 8.4 mg/dL (8.5-10.1); CREATININE 0.9 mg/dL (0.55-1.3)
[2023-03-15 10:08] LABS: BILIRUBIN,TOTAL 0.6 mg/dL (0.2-1); TOT PROT 5.4 g/dl (6.4-8.2)
[2023-03-15 10:11] LABS: ANISOCYTOSIS 0; HELMET CELLS 0; HOWELL-JOLLY BODIES 0; MACROCYTOSIS 0; OVALOCYTE 0; ROULEAU 0; SICKELED CELLS 0; TARGET CELLS 0; TEAR DROP CELLS 0; TOXIC GRANULATION 0
[2023-03-15] MEDS: POLYETHYLENE GLYCOL (HEALTHYLAX) 3350 17 GM PACKET PO SCH (11:01)
[2023-03-15] MEDS: FERROUS SO4 325 MG TABLET (FP) PO SCH (12:22)
[2023-03-15] MEDS ORDERED: IRON SUCROSE INJECTION 100 MG in SODIUM CHLORIDE 95 ML IVPB ONE (14:18)
[2023-03-15] MEDS: traMADol HCL 50 MG TABLET PO PRN (14:24)
[2023-03-15] MEDS ORDERED: INSULIN (LEVEMIR) 100 UNITS/ML UNITS SQ ONE (21:05)
[2023-03-15] MEDS: MONTELUKAST NA 10 MG TABLET PO SCH (21:35)
[2023-03-15] MEDS: GABAPENTIN 300 MG CAPSULE PO SCH (21:35)
[2023-03-15] MEDS: MELATONIN 5 MG TABLETS PO PRN (21:35)
[2023-03-15] MEDS: ATORVASTATIN CA 80 MG TABLET (FP) PO SCH (21:36)
[2023-03-15] MEDS: ALPRAZolam 0.25 MG TABLET PO PRN (21:51)
[2023-03-16] MEDS: NYSTATIN 500,000 UNITS/5 ML SUSPENSION PO SCH ×6 (01:09→23:20)
[2023-03-16] MEDS: methylPREDNISolone NA SUCC 40 MG/1 ML VIAL IVPUSH SCH ×3 (01:09→21:38)
[2023-03-16] MEDS: SODIUM CHLORIDE NASAL SPRAY 44 ML BOTTLE NS SCH ×3 (05:00→21:41)
[2023-03-16] MEDS ORDERED: INSULIN SLIDING SCALE (NOVOLOG) 1 VIAL SQ ONE ×2 (05:43→21:27)
[2023-03-16] MEDS: INSULIN SLIDING SCALE (NOVOLOG) 1 VIAL SQ SCH ×4 (07:04→21:40)
[2023-03-16] MEDS: ALBUTEROL SO4 0.083% IH SOL 2.5 MG/3 ML VIAL.NEB. NEB SCH ×4 (07:55→20:15)
[2023-03-16] MEDS: CEFTRIAXONE 1 GM in DEXTROSE 5%-WATER - 50 ML IVPB SCH (10:35)
[2023-03-16] MEDS: ASPIRIN 81 MG CHEWABLE TABLETS PO SCH (10:37)
[2023-03-16] MEDS: RANOLAZINE E.R. 500 MG TABLET (FP) PO SCH ×2 (10:37→21:41)
[2023-03-16] MEDS: POLYETHYLENE GLYCOL (HEALTHYLAX) 3350 17 GM PACKET PO SCH (10:37)
[2023-03-16] MEDS: POTASSIUM CHLORIDE TABS 10 MEQ TABLET.ER (FP) PO SCH ×2 (10:37→21:40)
[2023-03-16] MEDS: PANTOPRAZOLE 40 MG TABLET PO SCH (10:37)
[2023-03-16] MEDS: CLOPIDOGREL BISULFATE 75 MG TABLET (FP) PO SCH (10:38)
[2023-03-16] MEDS: BUDESONIDE/FORMETEROL FUMARATE 160/4.5 mcg INHALER IH SCH ×2 (10:38→21:41)
[2023-03-16] MEDS: FOLIC ACID 1 MG TABLET (FP) PO SCH (10:38)
[2023-03-16] MEDS: FUROSEMIDE 20 MG TABLET (FP) PO SCH (10:38)
[2023-03-16] MEDS: LACTOBACILLUS ACIDOPHILUS 1 TABLET PO SCH (10:38)
[2023-03-16] MEDS: ISOSORBIDE MONONITRATE 30 MG TAB.SR.24H (FP) PO SCH ×2 (10:38→21:39)
[2023-03-16] MEDS: MULTIVITAMINS (DAILY MVI) TABLET (FP) PO SCH (10:38)
[2023-03-16] MEDS: TIOTROPIUM BROMIDE 2.5 MCG (SPIRIVA) RESPIMAT INHALER IH SCH (10:39)
[2023-03-16] MEDS: VERAPAMIL HCL 240 MG E.R. TABLET PO SCH ×2 (10:40→21:40)
[2023-03-16] MEDS: FLUTICASONE PROP 0.05% 16 GM NASAL SPRAY NS SCH ×2 (10:40→21:40)
[2023-03-16] MEDS: FERROUS SO4 325 MG TABLET (FP) PO SCH (12:19)
[2023-03-16] MEDS: AZITHROMYCIN IVPB 500 MG/250 ML BAG IVPB SCH (14:18)
[2023-03-16] MEDS ORDERED: INSULIN (LEVEMIR) 100 UNITS/ML UNITS SQ ONE (21:27)
[2023-03-16] MEDS: MONTELUKAST NA 10 MG TABLET PO SCH (21:39)
[2023-03-16] MEDS: ATORVASTATIN CA 80 MG TABLET (FP) PO SCH (21:39)
[2023-03-16] MEDS: GABAPENTIN 300 MG CAPSULE PO SCH (21:39)
[2023-03-16] MEDS: MELATONIN 5 MG TABLETS PO PRN (21:39)
[2023-03-16] MEDS: ALPRAZolam 0.25 MG TABLET PO PRN (22:18)
[2023-03-17] MEDS: ACETAMINOPHEN 325 MG TABLET (FP) PO PRN (04:27)
[2023-03-17] MEDS: traMADol HCL 50 MG TABLET PO PRN (04:27)
[2023-03-17] MEDS: NYSTATIN 500,000 UNITS/5 ML SUSPENSION PO SCH ×2 (05:56→12:06)
[2023-03-17] MEDS: SODIUM CHLORIDE NASAL SPRAY 44 ML BOTTLE NS SCH ×3 (05:56→21:08)
[2023-03-17] MEDS: ALBUTEROL SO4 0.083% IH SOL 2.5 MG/3 ML VIAL.NEB. NEB SCH ×4 (07:55→19:25)
[2023-03-17] MEDS: INSULIN SLIDING SCALE (NOVOLOG) 1 VIAL SQ SCH ×4 (08:00→21:07)
[2023-03-17] MEDS: LACTOBACILLUS ACIDOPHILUS 1 TABLET PO SCH (09:05)
[2023-03-17] MEDS: RANOLAZINE E.R. 500 MG TABLET (FP) PO SCH ×2 (09:05→21:09)
[2023-03-17] MEDS: FOLIC ACID 1 MG TABLET (FP) PO SCH (09:06)
[2023-03-17] MEDS: POTASSIUM CHLORIDE TABS 10 MEQ TABLET.ER (FP) PO SCH ×2 (09:06→21:09)
[2023-03-17] MEDS: ASPIRIN 81 MG CHEWABLE TABLETS PO SCH (09:07)
[2023-03-17] MEDS: FUROSEMIDE 20 MG TABLET (FP) PO SCH (09:07)
[2023-03-17] MEDS: MULTIVITAMINS (DAILY MVI) TABLET (FP) PO SCH (09:07)
[2023-03-17] MEDS: PANTOPRAZOLE 40 MG TABLET PO SCH (09:07)
[2023-03-17] MEDS: ISOSORBIDE MONONITRATE 30 MG TAB.SR.24H (FP) PO SCH ×2 (09:07→21:08)
[2023-03-17] MEDS: CLOPIDOGREL BISULFATE 75 MG TABLET (FP) PO SCH (09:07)
[2023-03-17] MEDS: methylPREDNISolone NA SUCC 40 MG/1 ML VIAL IVPUSH SCH ×2 (09:08→21:09)
[2023-03-17] MEDS: VERAPAMIL HCL 240 MG E.R. TABLET PO SCH ×2 (09:27→21:08)
[2023-03-17] MEDS: FLUTICASONE PROP 0.05% 16 GM NASAL SPRAY NS SCH ×2 (09:28→21:07)
[2023-03-17] MEDS: BUDESONIDE/FORMETEROL FUMARATE 160/4.5 mcg INHALER IH SCH ×2 (09:29→21:08)
[2023-03-17] MEDS: POLYETHYLENE GLYCOL (HEALTHYLAX) 3350 17 GM PACKET PO SCH (09:42)
[2023-03-17 11:03] LABS: HEMOGLOBIN 7.4 GM/dL (10.7-15.3); MCH 28.9 pg (25.7-33.7); MCHC 32.2 g/dl (32.0-36.0); MEAN CELL VOLUME 89.6 fl (80-96); PLATELET COUNT 198 10^3/uL (134-434); RBC 2.57 M/mm3 (3.60-5.2); RDW 20.1 % (11.6-15.6); WHITE BLOOD COUNT 10.9 K/mm3 (4.0-10.0)
[2023-03-17 11:57] LABS: ANISOCYTOSIS 1+; MACROCYTOSIS 1+
[2023-03-17 12:05] LABS: ALBUMIN 2.6 g/dl (3.4-5.0); BILIRUBIN,TOTAL 0.5 mg/dL (0.2-1); BLOOD UREA NITROGEN 21.8 mg/dL (7-18); CALCIUM 8.2 mg/dL (8.5-10.1); CREATININE 0.6 mg/dL (0.55-1.3); POTASSIUM 4.1 mmol/L (3.5-5.1); TOT PROT 4.8 g/dl (6.4-8.2)
[2023-03-17] MEDS: TIOTROPIUM BROMIDE 2.5 MCG (SPIRIVA) RESPIMAT INHALER IH SCH (12:05)
[2023-03-17] MEDS: FERROUS SO4 325 MG TABLET (FP) PO SCH (12:06)
[2023-03-17] MEDS: MELATONIN 5 MG TABLETS PO PRN (21:08)
[2023-03-17] MEDS: ATORVASTATIN CA 80 MG TABLET (FP) PO SCH (21:08)
[2023-03-17] MEDS: MONTELUKAST NA 10 MG TABLET PO SCH (21:09)
[2023-03-17] MEDS: ALPRAZolam 0.25 MG TABLET PO PRN (21:09)
[2023-03-17] MEDS: GABAPENTIN 300 MG CAPSULE PO SCH (21:09)
[2023-03-18] MEDS: NYSTATIN 500,000 UNITS/5 ML SUSPENSION PO SCH ×5 (00:08→21:40)
[2023-03-18] MEDS: SODIUM CHLORIDE NASAL SPRAY 44 ML BOTTLE NS SCH ×3 (06:07→21:42)
[2023-03-18] MEDS: INSULIN SLIDING SCALE (NOVOLOG) 1 VIAL SQ SCH ×4 (06:08→21:32)
[2023-03-18] MEDS: ALBUTEROL SO4 0.083% IH SOL 2.5 MG/3 ML VIAL.NEB. NEB SCH ×4 (07:20→20:30)
[2023-03-18 09:27] LABS: HEMATOCRIT 25.6 % (32.4-45.2); HEMOGLOBIN 8.5 GM/dL (10.7-15.3); MCH 29.9 pg (25.7-33.7); MCHC 33.2 g/dl (32.0-36.0); MEAN CELL VOLUME 90.3 fl (80-96); MEAN PLT VOLUME 7.3 fl (7.5-11.1); PLATELET COUNT 174 10^3/uL (134-434); RBC 2.84 M/mm3 (3.60-5.2); RDW 18.3 % (11.6-15.6); WHITE BLOOD COUNT 11.4 K/mm3 (4.0-10.0)
[2023-03-18 09:54] LABS: ANISOCYTOSIS 1+; MACROCYTOSIS 1+
[2023-03-18 10:01] LABS: POTASSIUM 4.2 mmol/L (3.5-5.1)
[2023-03-18 10:03] LABS: ALBUMIN 2.7 g/dl (3.4-5.0)
[2023-03-18 10:04] LABS: BLOOD UREA NITROGEN 23.5 mg/dL (7-18)
[2023-03-18 10:06] LABS: CREATININE 0.6 mg/dL (0.55-1.3)
[2023-03-18 10:08] LABS: BILIRUBIN,TOTAL 1.2 mg/dL (0.2-1); TOT PROT 4.7 g/dl (6.4-8.2)
[2023-03-18] MEDS: FOLIC ACID 1 MG TABLET (FP) PO SCH (10:40)
[2023-03-18] MEDS: MULTIVITAMINS (DAILY MVI) TABLET (FP) PO SCH (10:40)
[2023-03-18] MEDS: LACTOBACILLUS ACIDOPHILUS 1 TABLET PO SCH (10:41)
[2023-03-18] MEDS: ASPIRIN 81 MG CHEWABLE TABLETS PO SCH (10:41)
[2023-03-18] MEDS: CLOPIDOGREL BISULFATE 75 MG TABLET (FP) PO SCH (10:41)
[2023-03-18] MEDS: POTASSIUM CHLORIDE TABS 10 MEQ TABLET.ER (FP) PO SCH ×2 (10:41→21:34)
[2023-03-18] MEDS: RANOLAZINE E.R. 500 MG TABLET (FP) PO SCH ×2 (10:42→21:35)
[2023-03-18] MEDS: PANTOPRAZOLE 40 MG TABLET PO SCH (10:42)
[2023-03-18] MEDS: methylPREDNISolone NA SUCC 40 MG/1 ML VIAL IVPUSH SCH ×2 (10:43→21:37)
[2023-03-18] MEDS: BUDESONIDE/FORMETEROL FUMARATE 160/4.5 mcg INHALER IH SCH ×2 (10:47→21:41)
[2023-03-18] MEDS: TIOTROPIUM BROMIDE 2.5 MCG (SPIRIVA) RESPIMAT INHALER IH SCH (10:47)
[2023-03-18] MEDS: FLUTICASONE PROP 0.05% 16 GM NASAL SPRAY NS SCH ×2 (10:48→21:41)
[2023-03-18] MEDS: POLYETHYLENE GLYCOL (HEALTHYLAX) 3350 17 GM PACKET PO SCH (10:49)
[2023-03-18] MEDS: ISOSORBIDE MONONITRATE 30 MG TAB.SR.24H (FP) PO SCH ×2 (12:14→21:36)
[2023-03-18] MEDS: FUROSEMIDE 20 MG TABLET (FP) PO SCH (12:14)
[2023-03-18] MEDS: VERAPAMIL HCL 240 MG E.R. TABLET PO SCH ×2 (13:18→21:38)
[2023-03-18] MEDS: FERROUS SO4 325 MG TABLET (FP) PO SCH (13:19)
[2023-03-18] MEDS: CYANOCOBALAMIN (VITAMIN B-12) 1000 MCG/1 ML VIAL IM SCH (13:19)
[2023-03-18] MEDS: ATORVASTATIN CA 80 MG TABLET (FP) PO SCH (21:35)
[2023-03-18] MEDS: GABAPENTIN 300 MG CAPSULE PO SCH (21:36)
[2023-03-18] MEDS: MONTELUKAST NA 10 MG TABLET PO SCH (21:37)
[2023-03-18] MEDS: ALPRAZolam 0.25 MG TABLET PO PRN (21:38)
[2023-03-18] MEDS: MELATONIN 5 MG TABLETS PO PRN (21:39)
[2023-03-19] MEDS: NYSTATIN 500,000 UNITS/5 ML SUSPENSION PO SCH ×4 (00:11→18:49)
[2023-03-19] MEDS: traMADol HCL 50 MG TABLET PO PRN (04:19)
[2023-03-19] MEDS: SODIUM CHLORIDE NASAL SPRAY 44 ML BOTTLE NS SCH ×3 (05:18→21:10)
[2023-03-19] MEDS: INSULIN SLIDING SCALE (NOVOLOG) 1 VIAL SQ SCH ×4 (06:02→21:20)
[2023-03-19] MEDS: ALBUTEROL SO4 0.083% IH SOL 2.5 MG/3 ML VIAL.NEB. NEB SCH ×4 (08:39→20:25)
[2023-03-19] MEDS: ISOSORBIDE MONONITRATE 30 MG TAB.SR.24H (FP) PO SCH ×2 (10:43→21:08)
[2023-03-19] MEDS: LACTOBACILLUS ACIDOPHILUS 1 TABLET PO SCH (10:43)
[2023-03-19] MEDS: FUROSEMIDE 20 MG TABLET (FP) PO SCH (10:46)
[2023-03-19] MEDS: MULTIVITAMINS (DAILY MVI) TABLET (FP) PO SCH (10:46)
[2023-03-19] MEDS: RANOLAZINE E.R. 500 MG TABLET (FP) PO SCH ×2 (10:46→21:08)
[2023-03-19] MEDS: POTASSIUM CHLORIDE TABS 10 MEQ TABLET.ER (FP) PO SCH ×2 (10:48→21:09)
[2023-03-19] MEDS: CLOPIDOGREL BISULFATE 75 MG TABLET (FP) PO SCH (10:48)
[2023-03-19] MEDS: ASPIRIN 81 MG CHEWABLE TABLETS PO SCH (10:48)
[2023-03-19] MEDS: VERAPAMIL HCL 240 MG E.R. TABLET PO SCH ×2 (10:48→21:09)
[2023-03-19] MEDS: PANTOPRAZOLE 40 MG TABLET PO SCH (10:48)
[2023-03-19] MEDS: FOLIC ACID 1 MG TABLET (FP) PO SCH (10:48)
[2023-03-19] MEDS: CYANOCOBALAMIN (VITAMIN B-12) 1000 MCG/1 ML VIAL IM SCH (10:49)
[2023-03-19] MEDS: methylPREDNISolone NA SUCC 40 MG/1 ML VIAL IVPUSH SCH (10:51)
[2023-03-19] MEDS: POLYETHYLENE GLYCOL (HEALTHYLAX) 3350 17 GM PACKET PO SCH (10:51)
[2023-03-19] MEDS: TIOTROPIUM BROMIDE 2.5 MCG (SPIRIVA) RESPIMAT INHALER IH SCH (10:56)
[2023-03-19] MEDS: BUDESONIDE/FORMETEROL FUMARATE 160/4.5 mcg INHALER IH SCH ×2 (10:56→21:10)
[2023-03-19] MEDS: FLUTICASONE PROP 0.05% 16 GM NASAL SPRAY NS SCH ×2 (10:56→21:09)
[2023-03-19] MEDS: ACETAMINOPHEN 325 MG TABLET (FP) PO PRN (11:01)
[2023-03-19] MEDS: FERROUS SO4 325 MG TABLET (FP) PO SCH (12:47)
[2023-03-19] MEDS ORDERED: TRIPLE LUMEN FLUSH 4 ML ML IVPUSH PRN (13:17)
[2023-03-19] MEDS: MONTELUKAST NA 10 MG TABLET PO SCH (21:08)
[2023-03-19] MEDS: GABAPENTIN 300 MG CAPSULE PO SCH (21:08)
[2023-03-19] MEDS: ATORVASTATIN CA 80 MG TABLET (FP) PO SCH (21:08)
[2023-03-19] MEDS: ALPRAZolam 0.25 MG TABLET PO PRN (21:13)
[2023-03-19] MEDS: MELATONIN 5 MG TABLETS PO PRN (21:13)
[2023-03-20] MEDS: NYSTATIN 500,000 UNITS/5 ML SUSPENSION PO SCH ×4 (01:22→17:31)
[2023-03-20] MEDS: SODIUM CHLORIDE NASAL SPRAY 44 ML BOTTLE NS SCH ×3 (06:20→22:49)
[2023-03-20] MEDS: INSULIN SLIDING SCALE (NOVOLOG) 1 VIAL SQ SCH ×4 (06:24→21:20)
[2023-03-20] MEDS: ALBUTEROL SO4 0.083% IH SOL 2.5 MG/3 ML VIAL.NEB. NEB SCH ×4 (08:10→20:25)
[2023-03-20] MEDS: ASPIRIN 81 MG CHEWABLE TABLETS PO SCH (09:37)
[2023-03-20] MEDS: LACTOBACILLUS ACIDOPHILUS 1 TABLET PO SCH (09:38)
[2023-03-20] MEDS: VERAPAMIL HCL 240 MG E.R. TABLET PO SCH ×2 (09:38→21:19)
[2023-03-20] MEDS: predniSONE 20 MG TABLET (UD) PO SCH (09:38)
[2023-03-20] MEDS: MULTIVITAMINS (DAILY MVI) TABLET (FP) PO SCH (09:39)
[2023-03-20] MEDS: RANOLAZINE E.R. 500 MG TABLET (FP) PO SCH ×2 (09:39→21:19)
[2023-03-20] MEDS: CLOPIDOGREL BISULFATE 75 MG TABLET (FP) PO SCH (09:39)
[2023-03-20] MEDS: PANTOPRAZOLE 40 MG TABLET PO SCH (09:39)
[2023-03-20] MEDS: CYANOCOBALAMIN (VITAMIN B-12) 1000 MCG/1 ML VIAL IM SCH (09:40)
[2023-03-20] MEDS: BUDESONIDE/FORMETEROL FUMARATE 160/4.5 mcg INHALER IH SCH ×2 (09:40→22:48)
[2023-03-20] MEDS: TIOTROPIUM BROMIDE 2.5 MCG (SPIRIVA) RESPIMAT INHALER IH SCH (09:40)
[2023-03-20] MEDS: FUROSEMIDE 20 MG TABLET (FP) PO SCH (09:43)
[2023-03-20] MEDS: POLYETHYLENE GLYCOL (HEALTHYLAX) 3350 17 GM PACKET PO SCH (09:44)
[2023-03-20] MEDS: ISOSORBIDE MONONITRATE 30 MG TAB.SR.24H (FP) PO SCH ×2 (09:44→21:19)
[2023-03-20] MEDS: POTASSIUM CHLORIDE TABS 10 MEQ TABLET.ER (FP) PO SCH ×2 (09:45→21:19)
[2023-03-20] MEDS: FOLIC ACID 1 MG TABLET (FP) PO SCH (09:46)
[2023-03-20] MEDS: FLUTICASONE PROP 0.05% 16 GM NASAL SPRAY NS SCH ×2 (11:10→22:49)
[2023-03-20 11:31] LABS: BASO % 0.2 % (0-2.0); EOS % 0.2 % (0-4.5); HEMATOCRIT 27.5 % (32.4-45.2); LYMPH % 6.3 % (8-40); MCH 30.1 pg (25.7-33.7); MCHC 32.8 g/dl (32.0-36.0); MEAN PLT VOLUME 6.6 fl (7.5-11.1); MONO % 3.2 % (3.8-10.2); NEUT % 90.1 % (42.8-82.8); PLATELET COUNT 126 10^3/uL (134-434); RBC 2.98 M/mm3 (3.60-5.2); RDW 19.7 % (11.6-15.6); WHITE BLOOD COUNT 11.6 K/mm3 (4.0-10.0)
[2023-03-20] MEDS: FERROUS SO4 325 MG TABLET (FP) PO SCH (11:31)
[2023-03-20] MEDS: MELATONIN 5 MG TABLETS PO PRN (21:19)
[2023-03-20] MEDS: ATORVASTATIN CA 80 MG TABLET (FP) PO SCH (21:19)
[2023-03-20] MEDS: ALPRAZolam 0.25 MG TABLET PO PRN (21:19)
[2023-03-20] MEDS: GABAPENTIN 300 MG CAPSULE PO SCH (21:19)
[2023-03-20] MEDS: MONTELUKAST NA 10 MG TABLET PO SCH (21:19)
[2023-03-21] MEDS: NYSTATIN 500,000 UNITS/5 ML SUSPENSION PO SCH ×4 (00:29→17:14)
[2023-03-21] MEDS: traMADol HCL 50 MG TABLET PO PRN (03:08)
[2023-03-21] MEDS: SODIUM CHLORIDE NASAL SPRAY 44 ML BOTTLE NS SCH ×3 (06:29→21:09)
[2023-03-21] MEDS: INSULIN SLIDING SCALE (NOVOLOG) 1 VIAL SQ SCH ×4 (06:33→21:11)
[2023-03-21] MEDS: ALBUTEROL SO4 0.083% IH SOL 2.5 MG/3 ML VIAL.NEB. NEB SCH ×4 (08:34→20:32)
[2023-03-21] MEDS: ASPIRIN 81 MG CHEWABLE TABLETS PO SCH (10:41)
[2023-03-21] MEDS: FOLIC ACID 1 MG TABLET (FP) PO SCH (10:42)
[2023-03-21] MEDS: LACTOBACILLUS ACIDOPHILUS 1 TABLET PO SCH (10:42)
[2023-03-21] MEDS: VERAPAMIL HCL 240 MG E.R. TABLET PO SCH ×2 (10:42→21:10)
[2023-03-21] MEDS: predniSONE 20 MG TABLET (UD) PO SCH (10:42)
[2023-03-21] MEDS: POTASSIUM CHLORIDE TABS 10 MEQ TABLET.ER (FP) PO SCH ×2 (10:43→21:10)
[2023-03-21] MEDS: ISOSORBIDE MONONITRATE 30 MG TAB.SR.24H (FP) PO SCH ×2 (10:43→21:10)
[2023-03-21] MEDS: POLYETHYLENE GLYCOL (HEALTHYLAX) 3350 17 GM PACKET PO SCH (10:43)
[2023-03-21] MEDS: PANTOPRAZOLE 40 MG TABLET PO SCH (10:44)
[2023-03-21] MEDS: MULTIVITAMINS (DAILY MVI) TABLET (FP) PO SCH (10:44)
[2023-03-21] MEDS: FUROSEMIDE 20 MG TABLET (FP) PO SCH (10:44)
[2023-03-21] MEDS: CLOPIDOGREL BISULFATE 75 MG TABLET (FP) PO SCH (10:44)
[2023-03-21] MEDS: BUDESONIDE/FORMETEROL FUMARATE 160/4.5 mcg INHALER IH SCH ×2 (10:45→21:09)
[2023-03-21] MEDS: CYANOCOBALAMIN (VITAMIN B-12) 1000 MCG/1 ML VIAL IM SCH (10:45)
[2023-03-21] MEDS: TIOTROPIUM BROMIDE 2.5 MCG (SPIRIVA) RESPIMAT INHALER IH SCH (10:45)
[2023-03-21] MEDS: FLUTICASONE PROP 0.05% 16 GM NASAL SPRAY NS SCH ×2 (10:46→21:08)
[2023-03-21] MEDS: RANOLAZINE E.R. 500 MG TABLET (FP) PO SCH ×2 (10:47→21:11)
[2023-03-21] MEDS: ACETAMINOPHEN 325 MG TABLET (FP) PO PRN (10:56)
[2023-03-21] MEDS: FERROUS SO4 325 MG TABLET (FP) PO SCH (11:50)
[2023-03-21] MEDS: ATORVASTATIN CA 80 MG TABLET (FP) PO SCH (21:10)
[2023-03-21] MEDS: ALPRAZolam 0.25 MG TABLET PO PRN (21:10)
[2023-03-21] MEDS: GABAPENTIN 300 MG CAPSULE PO SCH (21:10)
[2023-03-21] MEDS: MONTELUKAST NA 10 MG TABLET PO SCH (21:10)
[2023-03-21] MEDS: MELATONIN 5 MG TABLETS PO PRN (21:10)
[2023-03-22] MEDS: NYSTATIN 500,000 UNITS/5 ML SUSPENSION PO SCH ×4 (00:10→17:43)
[2023-03-22] MEDS: SODIUM CHLORIDE NASAL SPRAY 44 ML BOTTLE NS SCH ×3 (06:10→22:07)
[2023-03-22] MEDS: INSULIN SLIDING SCALE (NOVOLOG) 1 VIAL SQ SCH ×4 (06:11→22:11)
[2023-03-22] MEDS: ALBUTEROL SO4 0.083% IH SOL 2.5 MG/3 ML VIAL.NEB. NEB SCH ×4 (07:45→20:10)
[2023-03-22] MEDS: BUDESONIDE/FORMETEROL FUMARATE 160/4.5 mcg INHALER IH SCH ×3 (10:31→22:08)
[2023-03-22] MEDS: ASPIRIN 81 MG CHEWABLE TABLETS PO SCH (10:32)
[2023-03-22] MEDS: MULTIVITAMINS (DAILY MVI) TABLET (FP) PO SCH (10:32)
[2023-03-22] MEDS: CLOPIDOGREL BISULFATE 75 MG TABLET (FP) PO SCH (10:33)
[2023-03-22] MEDS: PANTOPRAZOLE 40 MG TABLET PO SCH (10:33)
[2023-03-22] MEDS: FOLIC ACID 1 MG TABLET (FP) PO SCH (10:33)
[2023-03-22] MEDS: VERAPAMIL HCL 240 MG E.R. TABLET PO SCH ×2 (10:33→22:05)
[2023-03-22] MEDS: LACTOBACILLUS ACIDOPHILUS 1 TABLET PO SCH (10:33)
[2023-03-22] MEDS: POTASSIUM CHLORIDE TABS 10 MEQ TABLET.ER (FP) PO SCH ×2 (10:33→22:05)
[2023-03-22] MEDS: FUROSEMIDE 20 MG TABLET (FP) PO SCH (10:33)
[2023-03-22] MEDS: ISOSORBIDE MONONITRATE 30 MG TAB.SR.24H (FP) PO SCH ×2 (10:33→22:05)
[2023-03-22] MEDS: predniSONE 20 MG TABLET (UD) PO SCH (10:33)
[2023-03-22] MEDS: RANOLAZINE E.R. 500 MG TABLET (FP) PO SCH ×2 (10:33→22:05)
[2023-03-22] MEDS: FLUTICASONE PROP 0.05% 16 GM NASAL SPRAY NS SCH ×2 (10:34→22:07)
[2023-03-22] MEDS: POLYETHYLENE GLYCOL (HEALTHYLAX) 3350 17 GM PACKET PO SCH (10:36)
[2023-03-22] MEDS: TIOTROPIUM BROMIDE 2.5 MCG (SPIRIVA) RESPIMAT INHALER IH SCH (10:37)
[2023-03-22] MEDS: FERROUS SO4 325 MG TABLET (FP) PO SCH (12:36)
[2023-03-22] MEDS: MELATONIN 5 MG TABLETS PO PRN (22:05)
[2023-03-22] MEDS: ALPRAZolam 0.25 MG TABLET PO PRN (22:05)
[2023-03-22] MEDS: MONTELUKAST NA 10 MG TABLET PO SCH (22:05)
[2023-03-22] MEDS: GABAPENTIN 300 MG CAPSULE PO SCH (22:05)
[2023-03-22] MEDS: ATORVASTATIN CA 80 MG TABLET (FP) PO SCH (22:05)
[2023-03-23] MEDS: NYSTATIN 500,000 UNITS/5 ML SUSPENSION PO SCH ×5 (01:42→23:08)
[2023-03-23] MEDS: traMADol HCL 50 MG TABLET PO PRN (06:26)
[2023-03-23] MEDS: SODIUM CHLORIDE NASAL SPRAY 44 ML BOTTLE NS SCH ×3 (06:28→21:33)
[2023-03-23] MEDS: INSULIN SLIDING SCALE (NOVOLOG) 1 VIAL SQ SCH ×4 (06:30→21:33)
[2023-03-23] MEDS: ALBUTEROL SO4 0.083% IH SOL 2.5 MG/3 ML VIAL.NEB. NEB SCH ×4 (08:40→20:05)
[2023-03-23] MEDS: RANOLAZINE E.R. 500 MG TABLET (FP) PO SCH ×2 (09:29→21:32)
[2023-03-23] MEDS: VERAPAMIL HCL 240 MG E.R. TABLET PO SCH ×2 (09:30→21:32)
[2023-03-23] MEDS: LACTOBACILLUS ACIDOPHILUS 1 TABLET PO SCH (09:30)
[2023-03-23] MEDS: FOLIC ACID 1 MG TABLET (FP) PO SCH (09:30)
[2023-03-23] MEDS: CLOPIDOGREL BISULFATE 75 MG TABLET (FP) PO SCH (09:31)
[2023-03-23] MEDS: POTASSIUM CHLORIDE TABS 10 MEQ TABLET.ER (FP) PO SCH ×2 (09:31→21:33)
[2023-03-23] MEDS: ASPIRIN 81 MG CHEWABLE TABLETS PO SCH (09:31)
[2023-03-23] MEDS: predniSONE 20 MG TABLET (UD) PO SCH (09:31)
[2023-03-23] MEDS: MULTIVITAMINS (DAILY MVI) TABLET (FP) PO SCH (09:32)
[2023-03-23] MEDS: ISOSORBIDE MONONITRATE 30 MG TAB.SR.24H (FP) PO SCH ×2 (09:33→21:33)
[2023-03-23] MEDS: POLYETHYLENE GLYCOL (HEALTHYLAX) 3350 17 GM PACKET PO SCH (09:33)
[2023-03-23] MEDS: PANTOPRAZOLE 40 MG TABLET PO SCH (09:33)
[2023-03-23] MEDS: AZITHROMYCIN 250 MG TABLET PO SCH (09:37)
[2023-03-23] MEDS: ALPRAZolam 0.25 MG TABLET PO PRN ×2 (09:37→21:33)
[2023-03-23] MEDS: FUROSEMIDE 20 MG TABLET (FP) PO SCH (09:38)
[2023-03-23] MEDS: FLUTICASONE PROP 0.05% 16 GM NASAL SPRAY NS SCH ×2 (09:42→22:07)
[2023-03-23] MEDS: BUDESONIDE/FORMETEROL FUMARATE 160/4.5 mcg INHALER IH SCH ×2 (09:42→21:33)
[2023-03-23] MEDS: TIOTROPIUM BROMIDE 2.5 MCG (SPIRIVA) RESPIMAT INHALER IH SCH (09:43)
[2023-03-23] MEDS: FERROUS SO4 325 MG TABLET (FP) PO SCH (12:02)
[2023-03-23] MEDS: ROFLUMILAST 500 MCG TABLET PO SCH (13:01)
[2023-03-23 14:06] LABS: HEMATOCRIT 27.7 % (32.4-45.2); HEMOGLOBIN 9.2 GM/dL (10.7-15.3); MCH 30.4 pg (25.7-33.7); MCHC 33.1 g/dl (32.0-36.0); MEAN CELL VOLUME 91.9 fl (80-96); MEAN PLT VOLUME 6.6 fl (7.5-11.1); PLATELET COUNT 104 10^3/uL (134-434); RBC 3.01 M/mm3 (3.60-5.2); WHITE BLOOD COUNT 9.3 K/mm3 (4.0-10.0)
[2023-03-23 14:29] LABS: ANISOCYTOSIS 1+; MACROCYTOSIS 0
[2023-03-23] MEDS: MELATONIN 5 MG TABLETS PO PRN (21:32)
[2023-03-23] MEDS: ATORVASTATIN CA 80 MG TABLET (FP) PO SCH (21:33)
[2023-03-23] MEDS: GABAPENTIN 300 MG CAPSULE PO SCH (21:33)
[2023-03-23] MEDS: MONTELUKAST NA 10 MG TABLET PO SCH (21:33)
[2023-03-24] MEDS: traMADol HCL 50 MG TABLET PO PRN (02:29)
[2023-03-24] MEDS: SODIUM CHLORIDE NASAL SPRAY 44 ML BOTTLE NS SCH ×3 (05:42→21:23)
[2023-03-24] MEDS: NYSTATIN 500,000 UNITS/5 ML SUSPENSION PO SCH ×4 (05:42→23:03)
[2023-03-24] MEDS: INSULIN SLIDING SCALE (NOVOLOG) 1 VIAL SQ SCH ×4 (06:25→21:20)
[2023-03-24] MEDS ORDERED: INSULIN (LEVEMIR) 100 UNITS/ML UNITS SQ ONE (06:49)
[2023-03-24 06:59] VITALS: RESP 18
[2023-03-24] MEDS: ALBUTEROL SO4 0.083% IH SOL 2.5 MG/3 ML VIAL.NEB. NEB SCH ×4 (07:25→20:50)
[2023-03-24] MEDS: ACETAMINOPHEN 325 MG TABLET (FP) PO PRN (08:27)
[2023-03-24] MEDS: ROFLUMILAST 500 MCG TABLET PO SCH (10:09)
[2023-03-24] MEDS: POTASSIUM CHLORIDE TABS 10 MEQ TABLET.ER (FP) PO SCH ×2 (10:09→21:22)
[2023-03-24] MEDS: predniSONE 20 MG TABLET (UD) PO SCH (10:09)
[2023-03-24] MEDS: MULTIVITAMINS (DAILY MVI) TABLET (FP) PO SCH (10:09)
[2023-03-24] MEDS: FOLIC ACID 1 MG TABLET (FP) PO SCH (10:09)
[2023-03-24] MEDS: AZITHROMYCIN 250 MG TABLET PO SCH (10:09)
[2023-03-24] MEDS: LACTOBACILLUS ACIDOPHILUS 1 TABLET PO SCH (10:09)
[2023-03-24] MEDS: RANOLAZINE E.R. 500 MG TABLET (FP) PO SCH ×2 (10:10→21:21)
[2023-03-24] MEDS: CLOPIDOGREL BISULFATE 75 MG TABLET (FP) PO SCH (10:10)
[2023-03-24] MEDS: ISOSORBIDE MONONITRATE 30 MG TAB.SR.24H (FP) PO SCH ×2 (10:10→21:22)
[2023-03-24] MEDS: FUROSEMIDE 20 MG TABLET (FP) PO SCH (10:10)
[2023-03-24] MEDS: PANTOPRAZOLE 40 MG TABLET PO SCH (10:10)
[2023-03-24] MEDS: VERAPAMIL HCL 240 MG E.R. TABLET PO SCH ×2 (10:10→21:23)
[2023-03-24] MEDS: ASPIRIN 81 MG CHEWABLE TABLETS PO SCH (10:10)
[2023-03-24] MEDS: FLUTICASONE PROP 0.05% 16 GM NASAL SPRAY NS SCH ×2 (10:10→21:23)
[2023-03-24] MEDS: POLYETHYLENE GLYCOL (HEALTHYLAX) 3350 17 GM PACKET PO SCH (10:11)
[2023-03-24] MEDS: BUDESONIDE/FORMETEROL FUMARATE 160/4.5 mcg INHALER IH SCH ×2 (10:11→21:24)
[2023-03-24] MEDS: TIOTROPIUM BROMIDE 2.5 MCG (SPIRIVA) RESPIMAT INHALER IH SCH (10:12)
[2023-03-24] MEDS: FERROUS SO4 325 MG TABLET (FP) PO SCH (12:11)
[2023-03-24] MEDS: ATORVASTATIN CA 80 MG TABLET (FP) PO SCH (21:21)
[2023-03-24] MEDS: MELATONIN 5 MG TABLETS PO PRN (21:22)
[2023-03-24] MEDS: MONTELUKAST NA 10 MG TABLET PO SCH (21:22)
[2023-03-24] MEDS: ALPRAZolam 0.25 MG TABLET PO PRN (21:22)
[2023-03-24] MEDS: GABAPENTIN 300 MG CAPSULE PO SCH (21:22)
[2023-03-25] MEDS: traMADol HCL 50 MG TABLET PO PRN (05:15)
[2023-03-25] MEDS: NYSTATIN 500,000 UNITS/5 ML SUSPENSION PO SCH ×3 (05:15→18:38)
[2023-03-25] MEDS: SODIUM CHLORIDE NASAL SPRAY 44 ML BOTTLE NS SCH ×3 (05:16→21:06)
[2023-03-25] MEDS: INSULIN SLIDING SCALE (NOVOLOG) 1 VIAL SQ SCH ×4 (06:10→21:30)
[2023-03-25] MEDS: ALBUTEROL SO4 0.083% IH SOL 2.5 MG/3 ML VIAL.NEB. NEB SCH ×4 (08:05→20:30)
[2023-03-25] MEDS: predniSONE 20 MG TABLET (UD) PO SCH (10:42)
[2023-03-25] MEDS: RANOLAZINE E.R. 500 MG TABLET (FP) PO SCH ×2 (10:42→21:05)
[2023-03-25] MEDS: MULTIVITAMINS (DAILY MVI) TABLET (FP) PO SCH (10:43)
[2023-03-25] MEDS: AZITHROMYCIN 250 MG TABLET PO SCH (10:43)
[2023-03-25] MEDS: POLYETHYLENE GLYCOL (HEALTHYLAX) 3350 17 GM PACKET PO SCH (10:43)
[2023-03-25] MEDS: ASPIRIN 81 MG CHEWABLE TABLETS PO SCH (10:43)
[2023-03-25] MEDS: FOLIC ACID 1 MG TABLET (FP) PO SCH (10:43)
[2023-03-25] MEDS: ISOSORBIDE MONONITRATE 30 MG TAB.SR.24H (FP) PO SCH ×2 (10:43→21:05)
[2023-03-25] MEDS: POTASSIUM CHLORIDE TABS 10 MEQ TABLET.ER (FP) PO SCH ×2 (10:43→21:05)
[2023-03-25] MEDS: CLOPIDOGREL BISULFATE 75 MG TABLET (FP) PO SCH (10:43)
[2023-03-25] MEDS: PANTOPRAZOLE 40 MG TABLET PO SCH (10:43)
[2023-03-25] MEDS: LACTOBACILLUS ACIDOPHILUS 1 TABLET PO SCH (10:43)
[2023-03-25] MEDS: ROFLUMILAST 500 MCG TABLET PO SCH (10:43)
[2023-03-25] MEDS: BUDESONIDE/FORMETEROL FUMARATE 160/4.5 mcg INHALER IH SCH ×2 (10:44→21:05)
[2023-03-25] MEDS: FUROSEMIDE 20 MG TABLET (FP) PO SCH (10:44)
[2023-03-25] MEDS: TIOTROPIUM BROMIDE 2.5 MCG (SPIRIVA) RESPIMAT INHALER IH SCH (10:44)
[2023-03-25] MEDS: FLUTICASONE PROP 0.05% 16 GM NASAL SPRAY NS SCH ×2 (10:44→21:06)
[2023-03-25] MEDS: VERAPAMIL HCL 240 MG E.R. TABLET PO SCH ×2 (10:44→21:05)
[2023-03-25] MEDS: FERROUS SO4 325 MG TABLET (FP) PO SCH (12:30)
[2023-03-25] MEDS: ALPRAZolam 0.25 MG TABLET PO PRN (15:28)
[2023-03-25] MEDS: MONTELUKAST NA 10 MG TABLET PO SCH (21:05)
[2023-03-25] MEDS: GABAPENTIN 300 MG CAPSULE PO SCH (21:05)
[2023-03-25] MEDS: ATORVASTATIN CA 80 MG TABLET (FP) PO SCH (21:05)
[2023-03-26 03:56] VITALS: BP 140/41; PULSE 73; TEMP 97.5
== END 2023-03-26 01:30 | DRG 191 ==
LOC: JER 17:47 → JERBED 22:34 → J5S 03-01 01:58 → UNDODISIN 03-17 23:03
PROVIDERS: ADMIT Internal Medicine; ATTEND Internal Medicine
PROC: 05HM33Z Insertion of Infusion Device into Right Internal Jugular Vein, Percutaneous Approach (ICD-10-PCS; 2023-03-06)
PROC: B543ZZA Ultrasonography of Right Jugular Veins, Guidance (ICD-10-PCS; 2023-03-06)
PROC: 30233N1 Transfusion of Nonautologous Red Blood Cells into Peripheral Vein, Percutaneous Approach (ICD-10-PCS; principal; 2023-03-17)
DX: J44.1 Chronic obstructive pulmonary disease with (acute) exacerbation (principal); I13.0 Hypertensive heart and chronic kidney disease with heart failure and stage 1 through stage 4 chronic kidney disease, or unspecified chronic kidney disease; I50.32 Chronic diastolic (congestive) heart failure; D64.9 Anemia, unspecified; I25.10 Atherosclerotic heart disease of native coronary artery without angina pectoris; K21.9 Gastro-esophageal reflux disease without esophagitis; E78.5 Hyperlipidemia, unspecified; R10.9 Unspecified abdominal pain; Z99.81 Dependence on supplemental oxygen; R07.89 Other chest pain; J20.9 Acute bronchitis, unspecified
CPT/HCPCS: 0241U-QW; 36415; 36430; 71045-TC-FY; 71046-TC-FY; 71250-TC; 72131-TC; 80053; 82272; 82550; 82607; 82728; 82746; 82803; 82962; 82977; 83036; 83540; 83550; 83615; 83735; 83880; 84155; 84165; 84439; 84443; 84481; 84484; 85025; 85610; 85651; 85730; 86850; 86900; 86901; 86922; 87635; 93005; 93010; 93306-TC; 94010; 94640; 97116-GP; 97162-GP; 99285-25; J1756; P9058